=== PATIENT | male | born 1960 | race Caucasian/White ===

== ENCOUNTER 2022-11-14 14:33 | Outpatient (OUT) | payer MEDICARE, SELFPAY ==
[2022-11-14 15:39] LABS: BUN Creatinine Ratio 16.4; Calcium 8.9 mg/dL (8.5-10.1); Carbon Dioxide 28.9 mmol/L (21.0-32.0); Chloride 108 mmol/L (98-107); Estimated GFR (African America >60 (>=60); Estimated GFR (Non-African Ame >60 (>=60); Glucose 106 mg/dL (74-106); Potassium 4.9 mmol/L (3.5-5.1); Sodium 143 mmol/L (136-145)
== END 2022-11-14 14:34 | disposition home or self-care (01) ==
LOC: LAB 14:36
PROVIDERS: PCP Family Medicine; Visit Provider Family Medicine
DX: E87.5 Hyperkalemia (principal)
CPT/HCPCS: 36415; 80048

== ENCOUNTER 2022-12-08 13:14 | Outpatient (OUT) | payer MEDICARE, SELFPAY ==
[2022-12-08 14:01] LABS: Erythrocyte Sedimentation Rate 39 mm/hr (<=20)
[2022-12-08 14:07] LABS: Basophils Absolute Auto 0.1 10^3/uL (0.0-0.1); Eosinophils Absolute Auto 0.4 10^3/uL (0.0-0.7); Eosinophils Percent Auto 7.1 % (0.9-7.0); Hematocrit 38.7 % (42.0-54.0); Hemoglobin 12.4 g/dL (14.0-18.0); Immature Granulocytes Abs Auto 0.01 10^3/uL (0.00-0.03); Immature Granulocytes Pct Auto 0.2 % (0.0-0.5); Lymphocytes Absolute Auto 1.3 10^3/uL (1.2-3.8); Mean Corpuscular Volume 96.8 fL (80.0-94.0); Mean Platelet Volume 9.8 fL (9.5-13.5); Monocytes Absolute Auto 0.3 10^3/uL (0.3-0.8); Monocytes Percent Auto 6.2 % (1.7-12.0); Neutrophils Absolute Auto 3.2 10^3/uL (1.4-6.5); Neutrophils Percent Auto 61.5 % (43.0-75.0); Platelet Count 219 10^3/uL (150-450); Red Cell Distribution Width 15.4 % (11.0-15.0); White Blood Count 5.2 10^3/uL (4.0-11.0)
[2022-12-09 13:38] LABS: Alanine Aminotransferase 26 U/L (16-63); Albumin Globulin Ratio 0.8; Alkaline Phosphatase 68 U/L (46-116); Anion Gap 14.1; Aspartate Amino Transferase 23 U/L (15-37); BUN Creatinine Ratio 16.3; Bilirubin Total 0.3 mg/dL (0.2-1.0); Calcium 8.8 mg/dL (8.5-10.1); Carbon Dioxide 24.9 mmol/L (21.0-32.0); Chloride 105 mmol/L (98-107); Estimated GFR (African America >60 (>=60); Estimated GFR (Non-African Ame 54 (>=60); Globulin 3.8 g/dL; Glucose 108 mg/dL (74-106); Sodium 139 mmol/L (136-145); Total Protein 6.8 g/dL (6.4-8.2)
== END 2022-12-08 13:15 | disposition home or self-care (01) ==
LOC: LAB 13:16
PROVIDERS: PCP Family Medicine; Visit Provider Internal Medicine Rheumatology
DX: M45.0 Ankylosing spondylitis of multiple sites in spine (principal); M15.0 Primary generalized (osteo)arthritis; Z79.899 Other long term (current) drug therapy
CPT/HCPCS: 36415; 80053; 85025; 85652

== ENCOUNTER 2022-12-15 10:37 | Outpatient (OUT) | payer MEDICARE, SELFPAY ==
--- NOTE | 2022-12-15 10:49 | XR_ITS ---
The [address] [address] Patient Name: ELENA FELIX MRN: [id number] date: 1960 Sex: M Assigned Patient Location: [facility] Current Patient Location: [facility] Accession/Order Number: [id number] Exam Date: 12/15/2022 10:44 Report Date: 12/15/2022 11:03 At the request of: BRAD HODGES Procedure: XR chest 2V EXAM: XR chest 2V HISTORY: Immunosuppression COMPARISON: None. TECHNIQUE: PA and lateral views of the chest. FINDINGS: The cardiomediastinal silhouette is normal. No focal consolidation is identified. There is no pneumothorax. No pleural effusion is noted. The osseous structures are intact. XR/XR chest 2V IMPRESSION: No acute cardiopulmonary process. Electronically authenticated by: ALICIA NOVOA Date: 12/15/2022 11:03
== END 2022-12-15 10:38 | disposition home or self-care (01) ==
LOC: RAD 10:38
PROVIDERS: PCP Family Medicine; Visit Provider Internal Medicine Rheumatology
DX: D84.9 Immunodeficiency, unspecified (principal)
CPT/HCPCS: 71046

== ENCOUNTER 2023-02-17 23:30 | Inpatient (IN) | payer MEDICARE, SELFPAY ==
[2023-02-17 23:34] VITALS: BP 116/84; PULSE 74; RESP 17; TEMP 36.7; O2SAT 96; BMI 35.9
--- NOTE | 2023-02-17 23:44 | XR_ITS ---
The [address] [address] Patient Name: ELENA FELIX MRN: [id number] date: 1960 Sex: M Assigned Patient Location: ER Current Patient Location: ER Accession/Order Number: [id number] Exam Date: 02/17/2023 23:59 Report Date: 02/18/2023 00:37 At the request of: BRYSON ENG Procedure: XR hip LT 2V w/ pelvis PROCEDURE: XR hip LT 2V w/ pelvis HISTORY: injury ; left hip pain after falling COMPARISON: None. FINDINGS: BONES:Acute fracture at base of left femoral neck slight angulation; no significant displacement. Intact hip joints. Prior right hip replacement. Mechanical fusion of the visible lumbar spine and right sacroiliac joint. SOFT TISSUES:No visible soft tissue swelling. EFFUSION:None visible. OTHER: Negative. XR/XR hip LT 2V w/ pelvis IMPRESSION: 1. Acute left femoral neck fracture with slight angulation. No significant displacement. Electronically authenticated by: ASHER SOLANO Date: 02/18/2023 00:37
--- NOTE | 2023-02-17 23:45 | ED.LOWEXI1 ---
HPI - Extremity Injury (Lower) General Chief Complaint: Extremity Injury, Lower Stated Complaint: etoh fall left hip pain Time Seen by Provider: 02/17/23 23:42 Source: patient Mode of arrival: ambulance Limitations: no limitations History of Present Illness HPI Narrative: patient states he was drinking alcohol tonight. loss his balance and fell . injured his left hip. Not sure if he struck his head but denies headache or neck pain. no complaint of back, chest or upper extremity pain. Brought to the ER via [facility] complaint: Reports hip injury Related Data Home Medications Medication Instructions Recorded Confirmed aspirin 81 mg tablet,delayed 81 mg PO DAILY 02/18/23 02/18/23 release (Adult Aspirin Regimen) atorvastatin 40 mg tablet 40 mg PO DAILY 02/18/23 02/18/23 duloxetine 60 mg capsule,delayed 60 mg PO BID 02/18/23 02/18/23 release folic acid 1 mg tablet 1 mg PO DAILY 02/18/23 02/18/23 gabapentin 300 mg capsule 900 mg PO Q12H neuropathy 02/18/23 02/18/23 leflunomide 20 mg tablet (Arava) 20 mg PO DAILY 02/18/23 02/18/23 methotrexate sodium 2.5 mg tablet 12.5 mg PO .weekly 02/18/23 02/18/23 metoprolol succinate 100 mg 50 mg PO DAILY HTN 02/18/23 02/18/23 tablet,extended release 24 hr omeprazole 20 mg capsule,delayed 20 mg PO DAILY 02/18/23 02/18/23 release oxaprozin 600 mg tablet 600 mg PO BID 02/18/23 02/18/23 spironolactone 25 mg tablet 12.5 mg PO DAILY 02/18/23 02/18/23 tamsulosin 0.4 mg capsule 0.4 mg PO BID 02/18/23 02/18/23 venlafaxine 150 mg 150 mg PO DAILY 02/18/23 02/18/23 capsule,extended release 24 hr (Effexor XR) Allergies Allergy/AdvReac Type Severity Reaction Status Date / Time morphine Allergy Intermediate Hallucinati Verified 02/17/23 23:34 ng Review of Systems ROS Status of ROS 10 or more systems reviewed and unremarkable except as noted in history and below [facility] Medical History Arthritis ?M19.90 - Unspecified osteoarthritis, unspecified site (ICD-10) Asthma ?J45.909 - Unspecified asthma, uncomplicated (ICD-10) 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 - Other disorders of autonomic nervous system (ICD-10) Depression ?F32.A - Depression, unspecified (ICD-10) DVT (deep venous thrombosis) ?I82.409 - Acute embolism and thrombosis of unspecified deep veins of unspecified lower extremity (ICD-10) High cholesterol ?E78.00 - Pure hypercholesterolemia, unspecified (ICD-10) HTN (hypertension) ?I10 - Essential (primary) hypertension (ICD-10) IBS (irritable bowel syndrome) ?K58.9 - Irritable bowel syndrome without diarrhea (ICD-10) Orthostatic hypotension ?I95.1 - Orthostatic hypotension (ICD-10) Tachycardia ?R00.0 - Tachycardia, unspecified (ICD-10) Surgical History (Updated 02/18/23 @ 02:17 by Doreen Langley) History of hip replacement ?Z96.649 - Presence of unspecified artificial hip joint (ICD-10) Previous back surgery ?Z98.890 - Other specified postprocedural states (ICD-10) Family History (Updated 02/18/23 @ 02:20 by Doreen Langley) Father Family history of diabetes mellitus Family history of stroke Aunt Family history of COPD (chronic obstructive pulmonary disease) Sister Family history of COPD (chronic obstructive pulmonary disease) Aunt Family history of cancer Mother Family history of cancer Social History (Updated 02/18/23 @ 02:23 by Doreen Langley) Within the past year, how often did you have a drink containing alcohol: monthly or less Within the past year, how many standard drinks containing alcohol did you have on a typical day: 1 or 2 Within the past year, how often did you have six or more drinks on one occasion: less than monthly Total score: 1 Score interpretation: A score less than 4 is consistent with normal alcohol consumption. Smoking status: Former smoker Second hand tobacco smoke exposure: No Non-prescribed substance use: denies use Previous occupational history: disability Known occupational exposures/hazards: No Highest level of school completed/degree received: high school graduate Do you want help with school or training: No Are you now , , , , never or living with a partner: In a typical week, how many times do you talk on the telephone with family, friends, or neighbors: 3 or more times per week How often do you get together with friends or relatives: 3 or more times per week How often do you attend presybeterian or adventism services: never Do you belong to any clubs or organizations such as presybeterian groups unions, fraternal or athletic groups, or school groups: no Total score: 2 Score interpretation: A score of greater than or equal to 2 indicates the lowest level of social isolation. Little interest or pleasure in doing things: several days Feeling down, depressed, or hopeless: several days Feel stressed/tense/nervous/anxious/difficulty sleeping: very much Due to disability, difficulty making decisions: No Do you think of yourself as: straight/heterosexual Gender Identity: male Exam Constitutional Vital Signs, click to edit/add: Last Vital Signs Temp 98.0 F 02/17/23 23:34 Pulse 74 02/17/23 23:34 Resp 17 02/17/23 23:34 BP 116/84 02/17/23 23:34 Pulse Ox 96 02/17/23 23:34 O2 Del Method Room Air 02/17/23 23:34 Common normals: average body habitus, oriented x3, no limitations, healthy appearing, alert and well nourished Eye Common normals: EOMs intact bilaterally and conjunctivae normal Respiratory Common normals: normal respiratory effort and no retractions Cardio Common normals: regular rate, regular rhythm, S1 normal heart sound and S2 normal heart sound GI Common normals: Normal to inspection, nondistended, normoactive bowel sounds present and soft to palpation Extremity Other: left hip tender. leg not shortened Neuro Common normals: oriented x3, CN's II-XII intact bilaterally and no sensory deficits noted Psych Appearance: grossly normal Course Vital Signs Vital signs: Vital Signs Temperature 98.0 F 02/17/23 23:34 Pulse Rate 74 02/17/23 23:34 Respiratory Rate 17 02/17/23 23:34 Blood Pressure 116/84 02/17/23 23:34 Pulse Oximetry 96 02/17/23 23:34 Oxygen Delivery Method Room Air 02/17/23 23:34 Temperature 98.0 F 02/17/23 23:34 Pulse Rate 74 02/17/23 23:34 Respiratory Rate 17 02/17/23 23:34 Blood Pressure 116/84 02/17/23 23:34 Pulse Oximetry 96 02/17/23 23:34 Oxygen Delivery Method Room Air 02/17/23 23:34 MDM - Extremity Injury (Lower) MDM Narrative Medical decision making narrative: patient drinking alcohol tonight at [employer]. Fell and fractured his left hip. Denies other injury. Past history of cardiomyopathy, ankylosing spondylitis, Rheumatoid arthritis and hyperlipidemia. Discussed hip xray with oncall surgeon Dr dawson and he would like the patient admitted to the hospitalist service Imaging Data Chest x-ray: Radiologist's impression: MRN: [facility]:[id number] date: 1960 Sex: M Assigned Patient Location: ER Current Patient Location: ER Accession/Order Number: [id number] Exam Date: 02/17/2023 23:59 Report Date: 02/18/2023 00:37 At the request of: BRYSON ENG Procedure: XR hip LT 2V w/ pelvis PROCEDURE: XR hip LT 2V w/ pelvis HISTORY: injury ; left hip pain after falling COMPARISON: None. FINDINGS: BONES:Acute fracture at base of left femoral neck slight angulation; no significant displacement. Intact hip joints. Prior right hip replacement. Mechanical fusion of the visible lumbar spine and right sacroiliac joint. SOFT TISSUES:No visible soft tissue swelling. EFFUSION:None visible. OTHER: Negative. IMPRESSION: 1. Acute left femoral neck fracture with slight angulation. No significant displacement. Electronically authenticated by: ASHER SOLANO Date: 02/18/2023 00:37 Discharge Plan Discharge Chief Complaint: Extremity Injury, Lower Clinical Impression: Fracture of hip Patient Disposition: Admitted As Inpatient Time of Disposition Decision: 01:45 Condition: Good Discharge Date/Time: 02/18/23 02:20
--- NOTE | 2023-02-17 23:47 | PC.NURSE ---
Patient arrives via ems c/o left hip pain with noticeable shortening after falling in bathroom at home. patient admits to drinking 2-3 bottles of wine at a halloween republican. patient is pleasant and follows commands. . at bedside. patient was given 1mg dilaudid at 2325 via ems.
[2023-02-18] VITALS (67 sets, daily range): BP systolic 95–134; BP diastolic 50–78; PULSE 65–97; RESP 8–22; TEMP 36.4–37.3; O2SAT 91–100; BMI 37.6
--- NOTE | 2023-02-18 | FL_ITS ---
[address] [address] Patient Name: ELENA FEILX MRN: [id number] date: 1960 Sex: M Assigned Patient Location: [facility] Current Patient Location: [facility] Accession/Order Number: [id number] Exam Date: 02/18/2023 15:20 Report Date: 02/19/2023 06:58 At the request of: ASHER SHEETS Procedure: FL fluoroscopy <1hr NON-READ EXAM: FL fluoroscopy <1hr NON-READ HISTORY: TECHNIQUE: FINDINGS: Please see Operative Report. Electronically authenticated by: RADIOLOGIST NO Date: 02/19/2023 06:58
[2023-02-18 00:29] LABS: Basophils Percent Auto 0.9 % (0.2-2.0); Eosinophils Absolute Auto 0.1 10^3/uL (0.0-0.7); Eosinophils Percent Auto 3.1 % (0.9-7.0); Hematocrit 33.9 % (42.0-54.0); Hemoglobin 10.6 g/dL (14.0-18.0); Immature Granulocytes Abs Auto 0.03 10^3/uL (0.00-0.03); Immature Granulocytes Pct Auto 0.7 % (0.0-0.5); Lymphocytes Absolute Auto 1.1 10^3/uL (1.2-3.8); Lymphocytes Percent Auto 23.3 % (20.5-60.0); Mean Corpuscular HGB Conc 31.3 g/dL (29.9-35.2); Mean Corpuscular Hemoglobin 32.1 pg (25.9-34.0); Mean Corpuscular Volume 102.7 fL (80.0-94.0); Mean Platelet Volume 10.2 fL (9.5-13.5); Monocytes Absolute Auto 0.6 10^3/uL (0.3-0.8); Monocytes Percent Auto 12.6 % (1.7-12.0); Neutrophils Absolute Auto 2.7 10^3/uL (1.4-6.5); Neutrophils Percent Auto 59.4 % (43.0-75.0); Red Cell Distribution Width 15.9 % (11.0-15.0); White Blood Count 4.6 10^3/uL (4.0-11.0)
[2023-02-18 00:35] LABS: BUN Creatinine Ratio 15.4; Calcium 8.1 mg/dL (8.5-10.1); Carbon Dioxide 24.6 mmol/L (21.0-32.0); Estimated GFR (African America >60 (>=60); Estimated GFR (Non-African Ame 56 (>=60); Ethanol 198 mg/dL; Glucose 91 mg/dL (74-106)
[2023-02-18] MEDS: HYDROMORPHONE HCL 0.5 MG/0.5 ML SYRINGE IV ×4 (01:04→23:24)
--- NOTE | 2023-02-18 01:08 | XR_ITS ---
The [address] [address] Patient Name: ELENA FELIX MRN: [id number] date: 1960 Sex: M Assigned Patient Location: ER Current Patient Location: [facility] Accession/Order Number: [id number] Exam Date: 02/18/2023 01:50 Report Date: 02/18/2023 02:08 At the request of: BRYSON ENG Procedure: XR chest 1V EXAM: XR chest 1V HISTORY: fall COMPARISON: Chest radiographs dated 12/15/2022. TECHNIQUE: One view of the chest was obtained. FINDINGS: The cardiac silhouette is normal in size. The lungs are clear. There is no significant pneumothorax or pleural effusion. No acute osseous abnormality is seen. Postsurgical changes of the lower thoracic spine are partially imaged. XR/XR chest 1V IMPRESSION: 1. No acute cardiopulmonary abnormality. Electronically authenticated by: Lydia ROY Date: 02/18/2023 02:08
[2023-02-18 01:22] LABS: Platelet Count 168 10^3/uL (150-450)
[2023-02-18 01:55] LABS: INR 0.99; Prothrombin Time 10.5 sec (9.0-11.6)
--- NOTE | 2023-02-18 03:19 | W.PM.TELEPN ---
Progress Note: Subjective Subjective Interval history: PT is a 62M with PMH of ankylosing spondylitis, a weak heart that improved with medications , fast heart rate , Orthostatic hypotension, BPH, DVTs no longer on anticoagulation, and Hyperlipidemia who presented to the ED after a mechanical fall while intoxicated on Alcohol at a libertarian. He states that he rarely drinks alcohol and does not use drugs and this is the one night that he does ingest alcohol. He went to the bathroom, and fell. He denies head trauma. Denies loss of consciousness. Denies any other complaint that 7/10 constant L hip pain, worse with movement, nonradiating. As above, pt denies syncope. No chest pain, shortness of breath, fever, recent illness, no n/v/d. The remainder of the reveiw of systems is negative. Pt lives at home with his and granddaughter He is a nonsmoker, does not usually drink alcohol, no drug use. I discussed code status and patient requests to be full code. Family history: Mother- Breast cancer Father - Cancer of the spine Exam Narrative Exam Narrative: Gen: NAD, talkative and pleasant HEENT: NC/AT, PEERL Neck: FROM Pulm: CTA B/L. No rales or wheezes Cards: RRR. No murmur GI: Abdomen with hyperactive bowel sounds. Nontender. Musculskeletal: 1+ Pitting edema noted B/L LE. Limited ROM LLE due to pain barrier Neuro: AAOx 3. Psych: Pleasant. Cooperative. Constitutional Vital Signs, click to edit/add: Last Vital Signs Temp 97.6 F 02/18/23 02:04 Pulse 65 02/18/23 02:04 Resp 18 02/18/23 02:04 BP 124/78 02/18/23 02:04 Pulse Ox 93 L 02/18/23 02:04 O2 Del Method Room Air 02/18/23 02:23 Progress Note: Objective Labs Labs: Short CBC 02/17/23 Range/Units 00:04 WBC 4.6 (4.0-11.0) 10^3/uL Hgb 10.6 L (14.0-18.0) g/dL Hct 33.9 L (42.0-54.0) % Plt Count 168 (150-450) 10^3/uL BMP 02/17/23 00:04 Carbon Dioxide 24.6 BUN 20.0 H Creatinine 1.30 Glucose 91 Calcium 8.1 L Progress Note: A&P Assessment and Plan (1) Fracture of hip: Assessment and Plan: Due to accidental fall No syncope Patient intoxicated, not a daily drinker No need for CIWA at this time, monitor closely L femur Fracture noted on XR Pt will need orthopedic evaluation and cardiac evaluation given history Last cardiac cath approximately 2 years ago - negative for occlusion Obtain Echocardiogram prior to any surgical intervention, EKG NPO for now pending possible ortho intervention IV NS @75cc/hr while NPO Pain management with Tylenol, pt allergic to opioids Consider IV Tylenol if pain control is inadequate Resume metoprolol Hold spironolactone due to orthostasis and elevated creatinine Hold home PO meds as patient is currently NPO DVT ppx with Heparin, SCDs (2) Autoimmune autonomic neuropathy: (3) Depression: (4) DVT (deep venous thrombosis): (5) IBS (irritable bowel syndrome): (6) Orthostatic hypotension: (7) Tachycardia: (8) HTN (hypertension): (9) High cholesterol: (10) Ankylosing spondylitis: (11) Alcohol intoxication: Telemedicine Attestation Telemedicine Attestation I conducted this encounter from [[place] via secure live, [id number] video conference with the patient, located at [facility] with [nurse]. Prior to the interview, the risks and benefits of telemedicine were discussed with the patient and verbal consent was obtained.
--- NOTE | 2023-02-18 03:34 | ECG_ITS ---
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
[2023-02-18] MEDS: 0.9 % SODIUM CHLORIDE 1,000 ML 75 ML IV ×2 (03:49→21:10)
[2023-02-18] MEDS: ACETAMINOPHEN 325 MG TABLET 650 MG PO (03:50)
[2023-02-18] MEDS: HEPARIN SODIUM (PORCINE) 5,000 UNIT/ML VIAL 5000 UNIT SUBQ (03:50)
[2023-02-18 04:58] LABS: Chloride 107 mmol/L (98-107); Potassium 4.7 mmol/L (3.5-5.1); Sodium 142 mmol/L (136-145)
[2023-02-18 05:07] LABS: Anion Gap 15.1
[2023-02-18 06:04] LABS: Basophils Absolute Auto 0.1 10^3/uL (0.0-0.1); Basophils Percent Auto 0.7 % (0.2-2.0); Eosinophils Absolute Auto 0.1 10^3/uL (0.0-0.7); Eosinophils Percent Auto 1.4 % (0.9-7.0); Hematocrit 34.1 % (42.0-54.0); Hemoglobin 10.2 g/dL (14.0-18.0); Immature Granulocytes Abs Auto 0.04 10^3/uL (0.00-0.03); Immature Granulocytes Pct Auto 0.6 % (0.0-0.5); Lymphocytes Absolute Auto 1.1 10^3/uL (1.2-3.8); Lymphocytes Percent Auto 16.1 % (20.5-60.0); Mean Corpuscular HGB Conc 29.9 g/dL (29.9-35.2); Mean Corpuscular Hemoglobin 31.1 pg (25.9-34.0); Mean Platelet Volume 9.9 fL (9.5-13.5); Monocytes Absolute Auto 0.8 10^3/uL (0.3-0.8); Neutrophils Absolute Auto 4.9 10^3/uL (1.4-6.5); Neutrophils Percent Auto 70.2 % (43.0-75.0); Platelet Count 179 10^3/uL (150-450); Red Blood Count 3.28 10^6/uL (4.70-6.10)
[2023-02-18 06:31] LABS: Alanine Aminotransferase 32 U/L (16-63); Albumin Globulin Ratio 0.8; Albumin Level 2.6 g/dL (3.4-5.0); Alkaline Phosphatase 62 U/L (46-116); Anion Gap 15.2; Aspartate Amino Transferase 28 U/L (15-37); BUN Creatinine Ratio 15.1; Bilirubin Total 0.3 mg/dL (0.2-1.0); Carbon Dioxide 20.2 mmol/L (21.0-32.0); Chloride 107 mmol/L (98-107); Estimated GFR (African America >60 (>=60); Estimated GFR (Non-African Ame >60 (>=60); Globulin 3.2 g/dL; Glucose 101 mg/dL (74-106); Potassium 4.4 mmol/L (3.5-5.1); Sodium 138 mmol/L (136-145); Total Protein 5.8 g/dL (6.4-8.2)
[2023-02-18 08:43] LABS: Troponin I High Sensitivity 7.7 pg/mL (4.0-76.1)
--- NOTE | 2023-02-18 10:54 | P.HP_ITS ---
H&P: HPI History of Present Illness Chief complaint: etoh fall left hip pain Narrative: Patient had been drinking in the evening, is not usually a drinker, fell, had instant hip pain. Presented to the emergency room and found to have left femoral neck fracture. Patient mated for work-up and treatment same Patient is a history of cardiomyopathy, recent echocardiogram done in June of this year showed normal ejection fraction of 55 to 60% with borderline left ventricle hypertrophy. 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 - Other disorders of autonomic nervous system (ICD-10) Depression ?F32.A - Depression, unspecified (ICD-10) DVT (deep venous thrombosis) ?I82.409 - Acute embolism and thrombosis of unspecified deep veins of unspecified lower extremity (ICD-10) High cholesterol ?E78.00 - Pure hypercholesterolemia, unspecified (ICD-10) HTN (hypertension) ?I10 - Essential (primary) hypertension (ICD-10) IBS (irritable bowel syndrome) ?K58.9 - Irritable bowel syndrome without diarrhea (ICD-10) Orthostatic hypotension ?I95.1 - Orthostatic hypotension (ICD-10) Tachycardia ?R00.0 - Tachycardia, unspecified (ICD-10) Surgical History (Updated 02/18/23 @ 02:17 by Doreen Langley) History of hip replacement ?Z96.649 - Presence of unspecified artificial hip joint (ICD-10) Previous back surgery ?Z98.890 - Other specified postprocedural states (ICD-10) Family History (Updated 02/18/23 @ 02:20 by Doreen Langley) Father Family history of diabetes mellitus Family history of stroke Aunt Family history of COPD (chronic obstructive pulmonary disease) Sister Family history of COPD (chronic obstructive pulmonary disease) Aunt Family history of cancer Mother Family history of cancer Social History (Updated 02/18/23 @ 02:23 by Doreen Langley) Within the past year, how often did you have a drink containing alcohol: monthly or less Within the past year, how many standard drinks containing alcohol did you have on a typical day: 1 or 2 Within the past year, how often did you have six or more drinks on one occasion: less than monthly Total score: 1 Score interpretation: A score less than 4 is consistent with normal alcohol consumption. Smoking status: Former smoker Second hand tobacco smoke exposure: No Non-prescribed substance use: denies use Previous occupational history: disability Known occupational exposures/hazards: No Highest level of school completed/degree received: high school graduate Do you want help with school or training: No Are you now , , , , never or living with a partner: In a typical week, how many times do you talk on the telephone with family, friends, or neighbors: 3 or more times per week How often do you get together with friends or relatives: 3 or more times per week How often do you attend jain or hindu services: never Do you belong to any clubs or organizations such as jain groups unions, [email or web address] or athletic groups, or school groups: no Total score: 2 Score interpretation: A score of greater than or equal to 2 indicates the lowest level of social isolation. Little interest or pleasure in doing things: several days Feeling down, depressed, or hopeless: several days Feel stressed/tense/nervous/anxious/difficulty sleeping: very much Due to disability, difficulty making decisions: No Do you think of yourself as: straight/heterosexual Gender Identity: male Meds Home Medications and Allergies Home Medications Medication Instructions Recorded Confirmed Type aspirin 81 mg tablet,delayed 81 mg PO DAILY 02/18/23 02/18/23 History release (Adult Aspirin Regimen) atorvastatin 40 mg tablet 40 mg PO DAILY 02/18/23 02/18/23 History duloxetine 60 mg capsule,delayed 60 mg PO BID 02/18/23 02/18/23 History release folic acid 1 mg tablet 1 mg PO DAILY 02/18/23 02/18/23 History gabapentin 300 mg capsule 900 mg PO Q12H neuropathy 02/18/23 02/18/23 History leflunomide 20 mg tablet (Arava) 20 mg PO DAILY 02/18/23 02/18/23 History methotrexate sodium 2.5 mg tablet 12.5 mg PO .weekly 02/18/23 02/18/23 History metoprolol succinate 100 mg 50 mg PO DAILY HTN 02/18/23 02/18/23 History tablet,extended release 24 hr omeprazole 20 mg capsule,delayed 20 mg PO DAILY 02/18/23 02/18/23 History release oxaprozin 600 mg tablet 600 mg PO BID 02/18/23 02/18/23 History spironolactone 25 mg tablet 12.5 mg PO DAILY 02/18/23 02/18/23 History tamsulosin 0.4 mg capsule 0.4 mg PO BID 02/18/23 02/18/23 History venlafaxine 150 mg 150 mg PO DAILY 02/18/23 02/18/23 History capsule,extended release 24 hr (Effexor XR) Allergies Allergy/AdvReac Type Severity Reaction Status Date / Time morphine Allergy Intermediate Hallucinati Verified 02/17/23 23:34 ng Exam Constitutional Vital Signs, click to edit/add: Last Vital Signs Temp 97.8 F 02/18/23 08:30 Pulse 69 02/18/23 09:57 Resp 16 02/18/23 08:30 BP 95/58 02/18/23 08:30 Pulse Ox 92 L 02/18/23 09:57 O2 Del Method Room Air 02/18/23 08:30 Documenting provider has reviewed patient's vital signs: yes Common normals: no apparent distress Exam limitations: no altered mental status HENND Common normals: normocephalic and moist oral mucous membranes Chest Common normals: inspection of chest normal Respiratory Common normals: normal respiratory effort, no retractions, no use of accessory muscles and clear to auscultation bilaterally Cardio Common normals: regular rate, regular rhythm and no murmurs GI Common normals: Normal to inspection, nondistended, normoactive bowel sounds present, soft to palpation and non-tender Extremity Common normals: normal to inspection Left lower extremity: hip joint (tender to palpation) Neuro Common normals: oriented x3, CN's II-XII intact bilaterally and no focal motor deficits Psych Common normals: mental status grossly normal and thought process normal Results Labs Labs: Short CBC 02/17/23 02/18/23 Range/Units 00:04 05:04 WBC 4.6 7.0 (4.0-11.0) 10^3/uL Hgb 10.6 L 10.2 L (14.0-18.0) g/dL Hct 33.9 L 34.1 L (42.0-54.0) % Plt Count 168 179 (150-450) 10^3/uL BMP 02/17/23 02/18/23 00:04 05:04 Sodium 142 138 Potassium 4.7 4.4 Chloride 107 107 Carbon Dioxide 24.6 20.2 L BUN 20.0 H 18.0 Creatinine 1.30 1.19 Glucose 91 101 Calcium 8.1 L 8.0 L Liver Function 02/18/23 Range/Units 05:04 Total Bilirubin 0.3 (0.2-1.0) mg/dL AST 28 (15-37) U/L ALT 32 (16-63) U/L Alkaline Phosphatase 62 (46-116) U/L Albumin 2.6 L (3.4-5.0) g/dL Assessment and Plan Assessment and Plan (1) Fracture of hip: (2) Autoimmune autonomic neuropathy: (3) Depression: (4) Orthostatic hypotension: (5) Tachycardia: (6) HTN (hypertension): (7) High cholesterol: (8) Alcohol intoxication: (9) Nonischemic cardiomyopathy: Plan Left hip pain-secondary to left femoral neck fracture-consultation to surgery, plan for surgery later today History of cardiomyopathy nonischemic-ejection fraction of June of this year was normal at 55 to 60%. Mild LVH. BNP, HST, ECG all normal. No symptoms. Cleared for OR Hypercholesterolemia-continue current medications GERD-continue with current medications Hypertension-continue current medications Depression-continue current medications Iron deficiency anemia-monitor daily, likely to drop with surgery
[2023-02-18] MEDS: LACTATED RINGER'S SOLUTION 1,000 ML 50 ML IV (14:17)
--- NOTE | 2023-02-18 15:43 | P.ORCN_ITS ---
History of Present Illness HPI Consult date: 02/18/23 Consult reason: fracture Chief complaint: etoh fall left hip pain Narrative: The patient is a 62-year-old who was at a [employer] party last night intoxicated. He fell on his left hip with the acute onset of pain and inability to bear weight. Presented to the emergency room where x-rays revealed a left basicervical hip fracture. Patient is admitted for treatment of this injury. He denies prior left hip pain. He denies pain elsewhere. At baseline he reports a history of lower extremity neuropathy. 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 - Other disorders of autonomic nervous system (ICD-10) Depression ?F32.A - Depression, unspecified (ICD-10) DVT (deep venous thrombosis) ?I82.409 - Acute embolism and thrombosis of unspecified deep veins of unspecified lower extremity (ICD-10) High cholesterol ?E78.00 - Pure hypercholesterolemia, unspecified (ICD-10) HTN (hypertension) ?I10 - Essential (primary) hypertension (ICD-10) IBS (irritable bowel syndrome) ?K58.9 - Irritable bowel syndrome without diarrhea (ICD-10) Orthostatic hypotension ?I95.1 - Orthostatic hypotension (ICD-10) Tachycardia ?R00.0 - Tachycardia, unspecified (ICD-10) Surgical History (Updated 02/18/23 @ 02:17 by Doreen Langley) History of hip replacement ?Z96.649 - Presence of unspecified artificial hip joint (ICD-10) Previous back surgery ?Z98.890 - Other specified postprocedural states (ICD-10) Family History (Updated 02/18/23 @ 02:20 by Doreen Langley) Father Family history of diabetes mellitus Family history of stroke Aunt Family history of COPD (chronic obstructive pulmonary disease) Sister Family history of COPD (chronic obstructive pulmonary disease) Aunt Family history of cancer Mother Family history of cancer Social History (Updated 02/18/23 @ 02:23 by Doreen Langley) Within the past year, how often did you have a drink containing alcohol: monthly or less Within the past year, how many standard drinks containing alcohol did you have on a typical day: 1 or 2 Within the past year, how often did you have six or more drinks on one occasion: less than monthly Total score: 1 Score interpretation: A score less than 4 is consistent with normal alcohol consumption. Smoking status: Former smoker Second hand tobacco smoke exposure: No Non-prescribed substance use: denies use Previous occupational history: disability Known occupational exposures/hazards: No Highest level of school completed/degree received: high school graduate Do you want help with school or training: No Are you now , , , , never or living with a partner: In a typical week, how many times do you talk on the telephone with family, friends, or neighbors: 3 or more times per week How often do you get together with friends or relatives: 3 or more times per week How often do you attend cheondoism or hindu services: never Do you belong to any clubs or organizations such as cheondoism groups unions, fraternal or athletic groups, or school groups: no Total score: 2 Score interpretation: A score of greater than or equal to 2 indicates the lowest level of social isolation. Little interest or pleasure in doing things: several days Feeling down, depressed, or hopeless: several days Feel stressed/tense/nervous/anxious/difficulty sleeping: very much Due to disability, difficulty making decisions: No Do you think of yourself as: straight/heterosexual Gender Identity: male Meds Home Medications and Allergies Home Medications Medication Instructions Recorded Confirmed Type aspirin 81 mg tablet,delayed 81 mg PO DAILY 02/18/23 02/18/23 History release (Adult Aspirin Regimen) atorvastatin 40 mg tablet 40 mg PO DAILY 02/18/23 02/18/23 History duloxetine 60 mg capsule,delayed 60 mg PO BID 02/18/23 02/18/23 History release folic acid 1 mg tablet 1 mg PO DAILY 02/18/23 02/18/23 History gabapentin 300 mg capsule 900 mg PO Q12H neuropathy 02/18/23 02/18/23 History leflunomide 20 mg tablet (Arava) 20 mg PO DAILY 02/18/23 02/18/23 History methotrexate sodium 2.5 mg tablet 12.5 mg PO .weekly 02/18/23 02/18/23 History metoprolol succinate 100 mg 50 mg PO DAILY HTN 02/18/23 02/18/23 History tablet,extended release 24 hr omeprazole 20 mg capsule,delayed 20 mg PO DAILY 02/18/23 02/18/23 History release oxaprozin 600 mg tablet 600 mg PO BID 02/18/23 02/18/23 History spironolactone 25 mg tablet 12.5 mg PO DAILY 02/18/23 02/18/23 History tamsulosin 0.4 mg capsule 0.4 mg PO BID 02/18/23 02/18/23 History venlafaxine 150 mg 150 mg PO DAILY 02/18/23 02/18/23 History capsule,extended release 24 hr (Effexor XR) Allergies Allergy/AdvReac Type Severity Reaction Status Date / Time morphine Allergy Intermediate Hallucinati Verified 02/17/23 23:34 ng Exam Narrative Exam Narrative: Left lower extremity skin is intact. Pain with logroll of the left hip. Palpable dorsalis pedis pulse. Diminished sensation to light touch in the toes which is his baseline. He is able to wiggle his toes. No ankle or left knee tenderness. Right lower extremity is nontender to palpation. Bilateral upper extremities have painless range of motion. Constitutional Vital Signs, click to edit/add: Last Vital Signs Temp 97.8 F 02/18/23 14:06 Pulse 74 02/18/23 14:06 Resp 16 02/18/23 14:06 BP 104/65 02/18/23 14:06 Pulse Ox 94 L 02/18/23 14:06 O2 Del Method Room Air 02/18/23 14:06 Results Labs Labs: Abnormal lab results 02/17/23 02/18/23 Range/Units 00:04 05:04 RBC 3.30 L 3.28 L (4.70-6.10) 10^6/uL Hgb 10.6 L 10.2 L (14.0-18.0) g/dL Hct 33.9 L 34.1 L (42.0-54.0) % MCV 102.7 H 104.0 H (80.0-94.0) fL RDW 15.9 H 16.0 H (11.0-15.0) % Lymph % (Auto) 16.1 L (20.5-60.0) % [place] % (Auto) 12.6 H (1.7-12.0) % Lymph # (Auto) 1.1 L 1.1 L (1.2-3.8) 10^3/uL Abs Immat Gran (auto) 0.04 H (0.00-0.03) 10^3/uL Imm/Tot Granulo (auto) 0.7 H 0.6 H (0.0-0.5) % Carbon Dioxide 20.2 L (21.0-32.0) mmol/L BUN 20.0 H (7.0-18.0) mg/dL Est GFR (Non-Af Amer) 56 L (>=60) Calcium 8.1 L 8.0 L (8.5-10.1) mg/dL Total Protein 5.8 L (6.4-8.2) g/dL Albumin 2.6 L (3.4-5.0) g/dL H & H 02/17/23 02/18/23 Range/Units 00:04 05:04 Hgb 10.6 L 10.2 L (14.0-18.0) g/dL Hct 33.9 L 34.1 L (42.0-54.0) % Coagulation 02/18/23 Range/Units 01:35 INR 0.99 All other labs normal. Diagnostic results Hip x-ray: other (Left hip x-ray shows a basicervical fracture with mild displacement) Assessment and Plan Assessment and Plan (1) Fracture of hip: (2) Autoimmune autonomic neuropathy: (3) Depression: (4) Orthostatic hypotension: (5) Tachycardia: (6) HTN (hypertension): (7) High cholesterol: (8) Alcohol intoxication: (9) Nonischemic cardiomyopathy: Plan For his left hip fracture I recommended a left hip intramedullary nail. I discussed risks of the surgery including but not limited to risk of infection, chronic pain, implant failure and need for total hip arthroplasty, loss of limb loss of life. After discussion of risks and benefits he has elected to proceed.
[2023-02-18] MEDS: CEFAZOLIN SODIUM 1,000 MG VIAL 2 MG IV (16:30)
--- NOTE | 2023-02-18 17:49 | PM.ORPRC ---
Procedure Note Date of procedure: 02/18/23 Pre-op diagnosis: Left hip basicervical fracture Post-op diagnosis: same as pre-op Procedure: Procedure Note Procedure(s): Left hip intramedullary nailing Findings: Reduced hip fracture with appropriate implant placement and lengths. Detailed Description of Procedure: After informed consent was obtained the patient was brought to the operating room where general anesthetic was administered. Preoperatively regional block was placed. Patient was placed on the fracture table and using traction and manipulation reduction was performed and confirmed on multiple fluoroscopy views. The left hip and leg were prepped and draped in the usual sterile fashion. A 5 cm incision was made proximal to the greater trochanter in line with the femur. Hemostasis achieved with Bovie. Fascia was incised in line with the incision. The guidepin for the Synthes TFNa 125 degrees was placed on the greater trochanter and the appropriate position on the AP and lateral planes and then advanced and then overreamed in the intertrochanteric region. The Synthes short nail was sized to10 mm in diameter and the nail was then placed. Through a more distal incision the guidepin was placed in the appropriate position in the femoral head. This was measured, overreamed and then the 105 millimeter spiral blade was placed locked into position and then a half turn counterclockwise was placed to allow for compression. The fracture was compressed. Through the more distal incision the locking screw was placed in the standard fashion. Final x-rays in multiple views revealed a reduced hip fracture with appropriate implant placement and lengths. Wounds were irrigated. Fascia was repaired with nonabsorbable suture. Skin was closed in standard fashion in layers. Sterile dressing was placed. Patient was awakened and brought to the recovery room in stable condition. There were no intraoperative or immediate postoperative complications. Anesthesia: regional and General-LMA Surgeon: Flo Skaggs Estimated blood loss (mL): 100 IV fluids (mL): 1,300 Pathology: none sent Condition: stable Disposition: PACU
--- NOTE | 2023-02-18 17:59 | PC.NURSE ---
pt toes are pink and warm,pt able to wiggle toes without difficulty
[2023-02-18] MEDS: ENOXAPARIN SODIUM 40 MG/0.4 ML SYRINGE SUBQ (20:10)
[2023-02-18] MEDS: GABAPENTIN 300 MG CAPSULE 900 MG PO (20:10)
[2023-02-18] MEDS: TAMSULOSIN HCL 0.4 MG CAPSULE PO (20:11)
[2023-02-18] MEDS: OXYCODONE HCL/ACETAMINOPHEN 5MG/325MG 1 TAB PO (20:11)
[2023-02-18] MEDS: DULOXETINE HCL 60 MG CAPSULE.DR PO (21:10)
[2023-02-18] MEDS: ATORVASTATIN CALCIUM 40 MG TABLET PO (21:10)
[2023-02-18] MEDS: VANCOMYCIN HCL 1,000 MG in 0.9 % SODIUM CHLORIDE 250 ML 250 MG IV (22:14)
[2023-02-19] MEDS: OXYCODONE HCL/ACETAMINOPHEN 5MG/325MG 2 TAB PO ×3 (04:26→17:20)
[2023-02-19 04:44] LABS: Basophils Percent Auto 0.1 % (0.2-2.0); Hematocrit 31.6 % (42.0-54.0); Hemoglobin 9.9 g/dL (14.0-18.0); Immature Granulocytes Abs Auto 0.04 10^3/uL (0.00-0.03); Immature Granulocytes Pct Auto 0.5 % (0.0-0.5); Lymphocytes Absolute Auto 0.3 10^3/uL (1.2-3.8); Lymphocytes Percent Auto 3.8 % (20.5-60.0); Mean Corpuscular HGB Conc 31.3 g/dL (29.9-35.2); Mean Corpuscular Hemoglobin 31.8 pg (25.9-34.0); Mean Corpuscular Volume 101.6 fL (80.0-94.0); Mean Platelet Volume 9.7 fL (9.5-13.5); Monocytes Absolute Auto 0.5 10^3/uL (0.3-0.8); Monocytes Percent Auto 6.5 % (1.7-12.0); Neutrophils Absolute Auto 7.2 10^3/uL (1.4-6.5); Neutrophils Percent Auto 89.1 % (43.0-75.0); Platelet Count 187 10^3/uL (150-450); Red Blood Count 3.11 10^6/uL (4.70-6.10); Red Cell Distribution Width 16.1 % (11.0-15.0); White Blood Count 8.1 10^3/uL (4.0-11.0)
[2023-02-19 04:58] LABS: BUN Creatinine Ratio 14.9; Carbon Dioxide 25.9 mmol/L (21.0-32.0); Chloride 107 mmol/L (98-107); Estimated GFR (African America >60 (>=60); Estimated GFR (Non-African Ame >60 (>=60); Glucose 153 mg/dL (74-106); Potassium 4.9 mmol/L (3.5-5.1); Sodium 139 mmol/L (136-145)
[2023-02-19 05:25] VITALS: BP 112/66; PULSE 84; RESP 16; TEMP 36.7; O2SAT 92
--- NOTE | 2023-02-19 07:47 | PM.ORPN ---
Progress Note: A&P Assessment and Plan (1) Fracture of hip: Assessment and Plan: POD#1 from left hip IM nail PT for TTWB LLE DVT prophylaxis Hgb stable (2) Autoimmune autonomic neuropathy: (3) Depression: (4) Orthostatic hypotension: (5) Tachycardia: (6) HTN (hypertension): (7) High cholesterol: (8) Alcohol intoxication: (9) Nonischemic cardiomyopathy: Subjective Subjective Interval history: Comfortable Exam Narrative Exam Narrative: LLE: dressings C/D/I Palp.DP Thigh soft Hgb:9.9 Constitutional Vital Signs, click to edit/add: Last Vital Signs Temp 98.0 F 02/19/23 05:25 Pulse 84 02/19/23 05:25 Resp 16 02/19/23 05:25 BP 112/66 02/19/23 05:25 Pulse Ox 92 L 02/19/23 05:25 O2 Del Method Room Air 02/19/23 05:25
[2023-02-19] MEDS: VANCOMYCIN HCL 1,000 MG in 0.9 % SODIUM CHLORIDE 250 ML 250 MG IV (08:36)
[2023-02-19] MEDS: SPIRONOLACTONE 25 MG TABLET 12.5 MG PO (08:37)
[2023-02-19] MEDS: DULOXETINE HCL 60 MG CAPSULE.DR PO ×2 (08:37→20:21)
[2023-02-19] MEDS: GABAPENTIN 300 MG CAPSULE 900 MG PO ×2 (08:37→20:21)
[2023-02-19] MEDS: OMEPRAZOLE 20 MG CAPSULE.DR PO (08:38)
[2023-02-19] MEDS: FOLIC ACID 1 MG TABLET PO (08:38)
[2023-02-19] MEDS: TAMSULOSIN HCL 0.4 MG CAPSULE PO ×2 (08:38→20:21)
[2023-02-19] MEDS: METOPROLOL SUCCINATE 50 MG TAB.ER.24H PO (08:38)
--- NOTE | 2023-02-19 10:05 | SWNOTE1 ---
SW received message from case management and pt potentially wants to go to [facility] rehab. Pt needs to work with therapy. Pt would be a precert if wants skilled. SW did call [facility] and they do take pt's insurance. SW to send referral once all information is documented and pt works with therapy.
[2023-02-19 10:15] VITALS: BMI 10.0
--- NOTE | 2023-02-19 10:34 | P.PN_ITS ---
Patient seen and examined. Agree with assessment and plan below. Will continue PT and may need SNF. Diagnosis: 1. Hip fracture 2. Alcohol intoxication 3. Cardiomyopathy 4. Neuropathy 5. HTN 6. 7. Dyslipidemia Progress Note: Subjective Subjective Interval history: Date/time of exam: 02/19/23 1005 The patient is resting comfortably in bed at the time of my exam. He has not been up with physical therapy postoperatively so far but will likely be seen by therapy within the next hour. He reports adequate pain control. He denies chest pain, shortness of breath, N/V/D, or any other acute complaint. Disposition: Attempting referral to a local SNF for rehab strengthening as the patient has comorbid balance problems and pain from his ankylosing spondylitis that make safe ambulation difficult at baseline without the addition of TTWB on the LLE that is currently ordered. Discharge likely in the next 48-72 hrs pending facility acceptance and insurance authorization. Exam Constitutional Vital Signs, click to edit/add: Last Vital Signs Temp 98.0 F 02/19/23 05:25 Pulse 84 02/19/23 05:25 Resp 16 02/19/23 05:25 BP 112/66 02/19/23 05:25 Pulse Ox 92 L 02/19/23 05:25 O2 Del Method Room Air 02/19/23 05:25 Common normals: no apparent distress, oriented x3 and alert General appearance: cooperative Orientation/consciousness: Yes awake [facility] Common normals: normocephalic, head/scalp atraumatic and hearing grossly normal bilaterally Head and scalp: normocephalic and atraumatic Eye Common normals: PERRL, EOMs intact bilaterally, conjunctivae normal and no scleral icterus General eye: normal appearance of both eyes Conjunctiva: conjunctiva(e) normal Pupil: PERRL Chest Common normals: inspection of chest normal Chest: symmetrical chest wall rise Respiratory Common normals: normal respiratory effort, no use of accessory muscles and clear to auscultation bilaterally Effort & inspection: able to speak in complete sentences Auscultation: clear to auscultation bilaterally Cardio Common normals: no JVD, regular rate, regular rhythm, S1 normal heart sound, S2 normal heart sound, no gallops, no clicks, no murmurs, no rub and peripheral pulses 2+ throughout Rate: regular rate Rhythm: regular rhythm Heart sounds: S1 normal and S2 normal Peripheral pulses: pulses 2+ throughout GI Common normals: Normal to inspection, nondistended, normoactive bowel sounds present, soft to palpation, non-tender and no hepatosplenomegaly Palpation: soft and no hepatosplenomegaly Bladder/kidney exam: bladder normal to palpation Extremity Common normals: normal to inspection and no calf tenderness; limited ROM (Decreased ROM to operative hip, otherwise WNL) General: no clubbing, no cyanosis and no edema Neuro Common normals: oriented x3, CN's II-XII intact bilaterally, moves all extremities, no focal motor deficits and no sensory deficits noted Sensorium/orientation: awake and alert Psych Common normals: mental status grossly normal Progress Note: Objective Labs Labs: Short CBC 02/19/23 Range/Units 04:04 WBC 8.1 (4.0-11.0) 10^3/uL Hgb 9.9 L (14.0-18.0) g/dL Hct 31.6 L (42.0-54.0) % Plt Count 187 (150-450) 10^3/uL BMP 02/19/23 04:04 Sodium 139 Potassium 4.9 Chloride 107 Carbon Dioxide 25.9 BUN 18.0 Creatinine 1.21 Glucose 153 H Calcium 8.0 L Progress Note: A&P Assessment and Plan (1) Fracture of hip: Assessment and Plan: ACUTE * After ground level fall - chronic balance issues complicated by EtOH intoxication * s/p gamma nail per Dr Skaggs 02/18/23 * Unremarkable post op period to date * Post op DVT prophylaxis, pain management, PT/OT orders, weight bearing orders deferred to the orthopedic team * Mild post-op on chronic anemia - stable at 9.9 today * CBC, CMP in AM (2) Alcohol intoxication: Assessment and Plan: ACUTE * Resolved * No evidence of chronic EtOH abuse at this time (3) Tachycardia: Assessment and Plan: ACUTE * Resolved (4) Ankylosing spondylitis: Assessment and Plan: CHRONIC * Continue home Arava, methotrexate, gabapentin, oxaprozin (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 Mild LVH. * Asymptomatic.
--- NOTE | 2023-02-19 10:36 | CM.NOTE ---
Rounds made with Dr. Hidalgo, PT and OT to evaluate pt today. Pt states he would like to go to [facility] for Skilled therapy at discharge. Pt states he has some balance issues d/t neuropathy.
--- NOTE | 2023-02-19 10:44 | CM.NOTE ---
Important Message From Medicare discussed with pt, pt verbalizes understanding and signs paper. Original given to pt and copy placed on pt's chart.
[2023-02-19] MEDS: 0.9 % SODIUM CHLORIDE 1,000 ML 75 ML IV (11:24)
[2023-02-19] MEDS: HYDROMORPHONE HCL 0.5 MG/0.5 ML SYRINGE IV (11:27)
--- NOTE | 2023-02-19 11:48 | SWNOTE1 ---
Referral has been sent to [facility] rehab.
[2023-02-19] MEDS: CYCLOBENZAPRINE HCL 10 MG TABLET PO (13:25)
[2023-02-19 13:27] VITALS: BP 135/67; PULSE 73; RESP 18; TEMP 36.1; O2SAT 96
--- NOTE | 2023-02-19 14:41 | SWNOTE1 ---
[facility] rehab is able to move forward and will start precert today. SW sent rest of information for precert.
--- NOTE | 2023-02-19 15:05 | SWNOTE1 ---
SW updated nursing and patient.
[2023-02-19 19:20] VITALS: BP 127/64; PULSE 75; RESP 18; TEMP 36.8; O2SAT 94
[2023-02-19] MEDS: ENOXAPARIN SODIUM 40 MG/0.4 ML SYRINGE SUBQ (20:20)
[2023-02-19] MEDS: ATORVASTATIN CALCIUM 40 MG TABLET PO (20:21)
[2023-02-20] MEDS: 0.9 % SODIUM CHLORIDE 1,000 ML 75 ML IV (00:21)
[2023-02-20 04:47] VITALS: BP 153/86; PULSE 68; RESP 16; TEMP 36.6; O2SAT 94
[2023-02-20 04:55] LABS: Basophils Percent Auto 0.3 % (0.2-2.0); Eosinophils Percent Auto 0.1 % (0.9-7.0); Hematocrit 29.2 % (42.0-54.0); Hemoglobin 8.8 g/dL (14.0-18.0); Immature Granulocytes Abs Auto 0.07 10^3/uL (0.00-0.03); Immature Granulocytes Pct Auto 0.6 % (0.0-0.5); Lymphocytes Absolute Auto 0.8 10^3/uL (1.2-3.8); Lymphocytes Percent Auto 7.7 % (20.5-60.0); Mean Corpuscular HGB Conc 30.1 g/dL (29.9-35.2); Mean Corpuscular Hemoglobin 31.3 pg (25.9-34.0); Mean Corpuscular Volume 103.9 fL (80.0-94.0); Monocytes Absolute Auto 1.4 10^3/uL (0.3-0.8); Monocytes Percent Auto 13.3 % (1.7-12.0); Neutrophils Absolute Auto 8.4 10^3/uL (1.4-6.5); Platelet Count 176 10^3/uL (150-450); Red Blood Count 2.81 10^6/uL (4.70-6.10); Red Cell Distribution Width 16.7 % (11.0-15.0); White Blood Count 10.8 10^3/uL (4.0-11.0)
[2023-02-20 05:17] LABS: Anion Gap 8.9; Calcium 7.8 mg/dL (8.5-10.1); Carbon Dioxide 25.8 mmol/L (21.0-32.0); Chloride 110 mmol/L (98-107); Estimated GFR (African America >60 (>=60); Estimated GFR (Non-African Ame >60 (>=60); Glucose 137 mg/dL (74-106); Potassium 4.7 mmol/L (3.5-5.1); Sodium 140 mmol/L (136-145)
[2023-02-20] MEDS: OXYCODONE HCL/ACETAMINOPHEN 5MG/325MG 2 TAB PO ×2 (07:54→16:32)
[2023-02-20 08:16] VITALS: BP 131/68
[2023-02-20] MEDS: OMEPRAZOLE 20 MG CAPSULE.DR PO (08:16)
[2023-02-20] MEDS: GABAPENTIN 300 MG CAPSULE 900 MG PO ×2 (08:16→19:49)
[2023-02-20] MEDS: FOLIC ACID 1 MG TABLET PO (08:16)
[2023-02-20] MEDS: METOPROLOL SUCCINATE 50 MG TAB.ER.24H PO (08:16)
[2023-02-20] MEDS: TAMSULOSIN HCL 0.4 MG CAPSULE PO ×2 (08:16→19:49)
[2023-02-20] MEDS: SPIRONOLACTONE 25 MG TABLET 12.5 MG PO (08:16)
[2023-02-20] MEDS: DULOXETINE HCL 60 MG CAPSULE.DR PO ×2 (08:16→19:49)
[2023-02-20 09:55] VITALS: O2SAT 95
[2023-02-20] MEDS: VENLAFAXINE HCL ER 150 MG CAPSULE PO (10:09)
--- NOTE | 2023-02-20 10:16 | PT.DAILY ---
Physical Therapy Daily Note PT Daily Note/Assess Start: 02/20/23 10:12 Freq: Status: Active Protocol: Document 02/20/23 10:12 REJI (Rec: 02/20/23 10:15 REJI [id number]) Physical Therapy Daily Note/Assessment Time In/Time Out Time In 09:05 Time Out 09:30 Pain In Pain N/A Pain Out Pain N/A Subjective Subjective Pt supine upon arrival. Agrees to PT and to get into chair at this time. Therapeutic Activity Time Therapeutic Activity Minutes (minutes) 10 Therapeutic Activity Units 1 Therapeutic Activity Treatment Bed Mobility Ability Minimum Assist,2 Person Assist Chair Transfer Ability Minimum Assist,2 Person Assist Therapeutic Activity Comments Pt transfers from supine>sit with Ryley for L LE and to advance upper body to sit EOB. Pt sits EOB for 8 min while brushing his teeth, washing his body, and changing his gown. Pt able to sit EOB unsupported with bed elevated. Pt then performs sit>stand to RW with Ryley+2 for safety. Pt amb 3' to BS chair with RW, TTWB on L - CGA+2. Pt has difficulty advancing L LE - more so drags it at this time. Pt remains in BS chair upon completion with feet elevated and call light within reach. Total Physical Therapy Time Total Therapy Minutes 10 Total Physical Therapy Units 1 Summary Daily Note Summary Improved transfer abilities from previous day. Pain increased when standing but subsides with rest.
--- NOTE | 2023-02-20 10:21 | CM.NOTE ---
Rounds made with Dr. Hidalgo pt will discharge to skilled therapy at [facility].
[2023-02-20] MEDS: CYCLOBENZAPRINE HCL 10 MG TABLET PO ×2 (11:14→19:49)
--- NOTE | 2023-02-20 11:48 | SWNOTE1 ---
SW sent updates to [facility] for precert.
--- NOTE | 2023-02-20 12:20 | P.PN_ITS ---
Patient seen and examined. Agree with assessment and plan below. Pain controlled with medication. Unsteady with PT and will need SNF. Awaiting insurance approval for SNF. Diagnosis: 1. Hip fracture 2. Alcohol intoxication 3. Cardiomyopathy 4. Neuropathy 5. HTN 6. 7. Dyslipidemia Progress Note: Subjective Subjective Interval history: Date/time of exam: 02/20/23 1017 The patient is resting comfortably in a bedside chair. He reports feeling well and denies chest pain, shortness of breath, N/V/D, dizziness, or any other acute complaint. His pain is adequately controlled, but becomes significant at times. He is ambulating with a walker but remains a high fall risk due to his a nkylosing spondylitis and autoimmune neuropathy. Per Dr. Skaggs, the patient should remain off of his methotrexate, oxaprozin, and leflunomide, for 1 month postoperatively. Disposition: Accepted at local SNF. Discharge pending insurance authorization, likely in the next 24-48 hrs. Exam Constitutional Vital Signs, click to edit/add: Last Vital Signs Temp 97.9 F 02/20/23 04:47 Pulse 68 02/20/23 04:47 Resp 16 02/20/23 04:47 BP 131/68 02/20/23 08:16 Pulse Ox 95 02/20/23 09:55 O2 Del Method Room Air 02/20/23 04:47 Common normals: no apparent distress, oriented x3 and alert Orientation/consciousness: Yes awake [facility] Common normals: normocephalic, head/scalp atraumatic and hearing grossly normal bilaterally Head and scalp: normocephalic and atraumatic Eye Common normals: PERRL, EOMs intact bilaterally, conjunctivae normal and no scleral icterus General eye: normal appearance of both eyes Conjunctiva: conjunctiva(e) normal Pupil: PERRL Neck & C-Spine Common normals: no JVD Chest Common normals: inspection of chest normal Chest: symmetrical chest wall rise Respiratory Common normals: normal respiratory effort and no use of accessory muscles Effort & inspection: able to speak in complete sentences Auscultation: wheezes (Faint, scattered EE) Cardio Common normals: no JVD, regular rate, regular rhythm, S1 normal heart sound, S2 normal heart sound, no gallops, no clicks, no murmurs, no rub and peripheral pulses 2+ throughout GI Common normals: Normal to inspection, nondistended, normoactive bowel sounds present, soft to palpation, non-tender and no hepatosplenomegaly Bladder/kidney exam: bladder normal to palpation Extremity Common normals: normal to inspection and no calf tenderness; limited ROM (Decreased ROM to operative hip, otherwise WNL) General: edema (Trace bilat insteps); no clubbing and no cyanosis Neuro Common normals: oriented x3, CN's II-XII intact bilaterally, moves all extremities, no focal motor deficits and no sensory deficits noted Sensorium/orientation: awake and alert Psych Common normals: mental status grossly normal Progress Note: Objective Labs Labs: Short CBC 02/20/23 Range/Units 04:21 WBC 10.8 (4.0-11.0) 10^3/uL Hgb 8.8 L (14.0-18.0) g/dL Hct 29.2 L (42.0-54.0) % Plt Count 176 (150-450) 10^3/uL BMP 02/20/23 04:21 Sodium 140 Potassium 4.7 Chloride 110 H Carbon Dioxide 25.8 BUN 22.0 H Creatinine 1.16 Glucose 137 H Calcium 7.8 L Progress Note: A&P Assessment and Plan (1) Fracture of hip: Assessment and Plan: ACUTE * After ground level fall - chronic balance issues complicated by EtOH intoxication * s/p gamma nail per Dr Skaggs 02/18/23 * Unremarkable post op period to date * Post op DVT prophylaxis, pain management, PT/OT orders, weight bearing orders deferred to the orthopedic team * Per Dr Skaggs - hold home immune modulating and NSAID meds for 1 mo post op, then resume * Post-op acute on chronic anemia * Dropped 1 gm today (8.8), 2 gm since admission * No evidence of active bleeding * check FOB to r/o occult bleeding, but low clinical suspicion * Likely combination of intra-op losses and hemodilution * Already on a PPI * CBC, CMP in AM (2) Alcohol intoxication: Assessment and Plan: ACUTE * Resolved * No evidence of chronic EtOH abuse at this time (3) Tachycardia: Assessment and Plan: ACUTE * Resolved (4) Ankylosing spondylitis: Assessment and Plan: CHRONIC * Hold home Arava, methotrexate, oxaprozin for one month post-op per Dr Skaggs * Continue home gabapentin (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 Mild LVH. * Asymptomatic.
[2023-02-20 13:30] VITALS: BP 117/67; PULSE 77; RESP 16; TEMP 36.1; O2SAT 92
--- NOTE | 2023-02-20 15:51 | SWNOTE1 ---
SW received call from [facility] and they have NOT received approval yet and they will let SW once they hear from insurance.
[2023-02-20 19:09] VITALS: BP 121/61; PULSE 67; RESP 16; TEMP 36.8; O2SAT 93
[2023-02-20] MEDS: ENOXAPARIN SODIUM 40 MG/0.4 ML SYRINGE SUBQ (19:49)
[2023-02-20] MEDS: ATORVASTATIN CALCIUM 40 MG TABLET PO (19:49)
[2023-02-20 21:12] LABS: Occult Blood Positive
[2023-02-21] MEDS: OXYCODONE HCL/ACETAMINOPHEN 5MG/325MG 2 TAB PO ×3 (00:24→19:47)
[2023-02-21 04:30] VITALS: BP 124/66; PULSE 64; RESP 18; TEMP 36.6; O2SAT 92
[2023-02-21 04:57] LABS: Basophils Absolute Auto 0.1 10^3/uL (0.0-0.1); Basophils Percent Auto 0.6 % (0.2-2.0); Eosinophils Absolute Auto 0.2 10^3/uL (0.0-0.7); Eosinophils Percent Auto 1.9 % (0.9-7.0); Hematocrit 29.7 % (42.0-54.0); Immature Granulocytes Abs Auto 0.08 10^3/uL (0.00-0.03); Lymphocytes Absolute Auto 1.2 10^3/uL (1.2-3.8); Lymphocytes Percent Auto 14.1 % (20.5-60.0); Mean Corpuscular HGB Conc 30.3 g/dL (29.9-35.2); Mean Corpuscular Hemoglobin 31.3 pg (25.9-34.0); Mean Corpuscular Volume 103.1 fL (80.0-94.0); Mean Platelet Volume 10.1 fL (9.5-13.5); Monocytes Absolute Auto 1.3 10^3/uL (0.3-0.8); Monocytes Percent Auto 15.7 % (1.7-12.0); Neutrophils Absolute Auto 5.5 10^3/uL (1.4-6.5); Neutrophils Percent Auto 66.7 % (43.0-75.0); Platelet Count 215 10^3/uL (150-450); Red Blood Count 2.88 10^6/uL (4.70-6.10); Red Cell Distribution Width 17.2 % (11.0-15.0); White Blood Count 8.3 10^3/uL (4.0-11.0)
[2023-02-21 05:11] LABS: Anion Gap 10.1; BUN Creatinine Ratio 20.4; Calcium 8.1 mg/dL (8.5-10.1); Carbon Dioxide 26.3 mmol/L (21.0-32.0); Chloride 109 mmol/L (98-107); Estimated GFR (African America >60 (>=60); Estimated GFR (Non-African Ame >60 (>=60); Glucose 102 mg/dL (74-106); Potassium 4.4 mmol/L (3.5-5.1); Sodium 141 mmol/L (136-145)
[2023-02-21] MEDS: FOLIC ACID 1 MG TABLET PO (08:20)
[2023-02-21] MEDS: SPIRONOLACTONE 25 MG TABLET 12.5 MG PO (08:20)
[2023-02-21] MEDS: DULOXETINE HCL 60 MG CAPSULE.DR PO ×2 (08:20→19:48)
[2023-02-21] MEDS: METOPROLOL SUCCINATE 50 MG TAB.ER.24H PO (08:20)
[2023-02-21] MEDS: OMEPRAZOLE 20 MG CAPSULE.DR PO (08:20)
[2023-02-21] MEDS: TAMSULOSIN HCL 0.4 MG CAPSULE PO ×2 (08:20→19:47)
[2023-02-21] MEDS: GABAPENTIN 300 MG CAPSULE 900 MG PO ×2 (08:20→19:48)
[2023-02-21] MEDS: VENLAFAXINE HCL ER 150 MG CAPSULE PO (08:20)
[2023-02-21] MEDS: CYCLOBENZAPRINE HCL 10 MG TABLET PO ×2 (08:20→19:48)
--- NOTE | 2023-02-21 10:42 | CM.NOTE ---
Rounds made with Dr. Hidalgo pt will go to [facility] for skilled therapy at discharge.
--- NOTE | 2023-02-21 11:07 | PT.DAILY ---
Physical Therapy Daily Note PT Daily Note/Assess Start: 02/20/23 10:12 Freq: Status: Active Protocol: Document 02/21/23 11:02 REJI (Rec: 02/21/23 11:07 SHAMARTA [id number]) Physical Therapy Daily Note/Assessment Time In/Time Out Time In 10:05 Time Out 10:20 Pain In Pain Level 3 Pain Out Pain Level 7 Subjective Subjective Pt sitting in BS chair upon arrival with feet elevated. Agrees to PT. Reports being in BS chair for about 2 hours and is ready to get back to bed. Pain at rest is 3/10. Therapeutic Exercise Time Therapeutic Exercise Minutes (minutes) 4 Therapeutic Exercise Units 0 Therapeutic Exercise Treatment Therapeutic Exercise Treatment Seated LAQ (AA L) and AP 10x ea. Supine heel slides to 60 deg, AP, QS, GS, 10x ea. Therapeutic Activity Time Therapeutic Activity Minutes (minutes) 10 Therapeutic Activity Units 1 Therapeutic Activity Treatment Bed Mobility Ability Moderate Assist Chair Transfer Ability Moderate Assist Therapeutic Activity Comments Sit>stand from BS chair to RW ModA to reach standing. Pt amb 4' to bed with RW, TTWB L LE. Increased pain with standing. Pt performs sit>supine transfer with ModA for L LE. Pt performs supine ex while in bed. Pt remains supine upon completion with call light in reach and needs met. Total Physical Therapy Time Total Therapy Minutes 14 Total Physical Therapy Units 1 Summary Daily Note Summary Improved transfer ability today as pt is able to perform these transfers with assist of 1 vs needing 2 assist in previous session. Pt cont to increased with standing and activity. Pt would benefit from skilled therapy to return to PLOF.
[2023-02-21 12:05] LABS: Percent Iron Saturation 12.3 %
--- NOTE | 2023-02-21 12:30 | SWNOTE1 ---
Updates sent to [facility].
--- NOTE | 2023-02-21 14:51 | P.PN_ITS ---
Patient seen and examined. Agree with assessment and plan below. Pain controlled with medication. Unsteady with PT and recommend SNF. Insurance denied SNF and they will attempt peer to peer. Diagnosis: 1. Hip fracture 2. Alcohol intoxication 3. Cardiomyopathy 4. Neuropathy 5. HTN 6. 7. Dyslipidemia Progress Note: Subjective Subjective Interval history: Date/time of exam: 02/21/23 0913 The patient is resting comfortably in a bedside chair. He reports feeling well and continues to deny chest pain, shortness of breath, N/V/D, dizziness, or any other acute complaint. His pain remains adequately controlled, but becomes significant at times. He is ambulating with a walker but remains a high fall risk due to his ankylosing spondylitis and autoimmune neuropathy. Per Dr. Skaggs, the patient should remain off of his methotrexate, oxaprozin, and leflunomide, for 1 month postoperatively. Disposition: Accepted at local SNF. Discharge pending insurance authorization, likely in the next 24hrs. Exam Constitutional Vital Signs, click to edit/add: Last Vital Signs Temp 97.9 F 02/21/23 04:30 Pulse 64 02/21/23 04:30 Resp 18 02/21/23 04:30 BP 124/66 02/21/23 04:30 Pulse Ox 92 L 02/21/23 04:30 O2 Del Method Room Air 02/21/23 04:30 Common normals: no apparent distress, oriented x3 and alert Orientation/consciousness: Yes awake [facility] Common normals: normocephalic, head/scalp atraumatic and hearing grossly normal bilaterally Eye Common normals: PERRL, EOMs intact bilaterally, conjunctivae normal and no scleral icterus General eye: normal appearance of both eyes Respiratory Common normals: normal respiratory effort, no use of accessory muscles and clear to auscultation bilaterally Effort & inspection: able to speak in complete sentences Cardio Common normals: no JVD, regular rate, regular rhythm, S1 normal heart sound, S2 normal heart sound, no gallops, no clicks, no murmurs, no rub and peripheral pulses 2+ throughout GI Common normals: Normal to inspection, nondistended, normoactive bowel sounds present, soft to palpation, non-tender and no hepatosplenomegaly Extremity Common normals: normal to inspection and no calf tenderness; limited ROM (Decreased ROM to operative hip, otherwise WNL) General: no clubbing and no cyanosis Neuro Common normals: CN's II-XII intact bilaterally, moves all extremities, no focal motor deficits and no sensory deficits noted Psych Common normals: mental status grossly normal Progress Note: Objective Labs Labs: Short CBC 02/21/23 Range/Units 04:05 WBC 8.3 (4.0-11.0) 10^3/uL Hgb 9.0 L (14.0-18.0) g/dL Hct 29.7 L (42.0-54.0) % Plt Count 215 (150-450) 10^3/uL BMP 02/21/23 04:05 Sodium 141 Potassium 4.4 Chloride 109 H Carbon Dioxide 26.3 BUN 23.0 H Creatinine 1.13 Glucose 102 Calcium 8.1 L Progress Note: A&P Assessment and Plan (1) Fracture of hip: Assessment and Plan: ACUTE * After ground level fall - chronic balance issues complicated by EtOH intoxication * s/p gamma nail per Dr Skaggs 02/18/23 * Unremarkable post op period to date * Post op DVT prophylaxis, pain management, PT/OT orders, weight bearing orders deferred to the orthopedic team * Per Dr Skaggs - hold home immune modulating and NSAID meds for 1 mo post op, then resume * Post-op acute on chronic anemia * Improved today - 9.0 * No evidence of active bleeding * FOB positive - pt continues to deny melana or hematochezia * Likely combination of intra-op losses and hemodilution * Add iron studies today - consider adding ferrous sulfate * Already on a PPI * CBC, CMP in AM (2) Alcohol intoxication: Assessment and Plan: ACUTE * Resolved * No evidence of chronic EtOH abuse (3) Tachycardia: Assessment and Plan: ACUTE * Resolved (4) Ankylosing spondylitis: Assessment and Plan: CHRONIC * Hold home Arava, methotrexate, oxaprozin for one month post-op per Dr Skaggs * Continue home gabapentin (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 Mild LVH. * Asymptomatic.
[2023-02-21 15:02] VITALS: BP 133/74; PULSE 74; RESP 16; TEMP 36.7; O2SAT 92
--- NOTE | 2023-02-21 15:20 | SWNOTE1 ---
SW received call from [facility] inpt rehab and pt's insurance is intending to deny. [facility] doctor will be doing the peer to peer tomorrow between 10:30-11:00. SW notified nursing, doctor, and nurse practitioner.
--- NOTE | 2023-02-21 15:21 | SWNOTE1 ---
SW to update patient as well.
[2023-02-21 19:17] VITALS: RESP 16
[2023-02-21] MEDS: ENOXAPARIN SODIUM 40 MG/0.4 ML SYRINGE SUBQ (19:47)
[2023-02-21] MEDS: ATORVASTATIN CALCIUM 40 MG TABLET PO (19:48)
[2023-02-21 21:06] VITALS: BP 113/69; PULSE 73; RESP 18; TEMP 36.8; O2SAT 93
[2023-02-22] VITALS (8 sets, daily range): BP systolic 101–134; BP diastolic 64–71; PULSE 70–80; RESP 16–18; TEMP 36.5–36.9; O2SAT 92–95
[2023-02-22 06:01] LABS: Basophils Absolute Auto 0.1 10^3/uL (0.0-0.1); Eosinophils Absolute Auto 0.3 10^3/uL (0.0-0.7); Eosinophils Percent Auto 3.6 % (0.9-7.0); Hematocrit 29.4 % (42.0-54.0); Hemoglobin 8.9 g/dL (14.0-18.0); Immature Granulocytes Abs Auto 0.11 10^3/uL (0.00-0.03); Immature Granulocytes Pct Auto 1.5 % (0.0-0.5); Lymphocytes Absolute Auto 1.4 10^3/uL (1.2-3.8); Lymphocytes Percent Auto 19.5 % (20.5-60.0); Mean Corpuscular HGB Conc 30.3 g/dL (29.9-35.2); Mean Corpuscular Hemoglobin 31.3 pg (25.9-34.0); Mean Corpuscular Volume 103.5 fL (80.0-94.0); Mean Platelet Volume 9.7 fL (9.5-13.5); Monocytes Absolute Auto 1.3 10^3/uL (0.3-0.8); Monocytes Percent Auto 17.9 % (1.7-12.0); Neutrophils Percent Auto 56.5 % (43.0-75.0); Platelet Count 233 10^3/uL (150-450); Red Blood Count 2.84 10^6/uL (4.70-6.10); Red Cell Distribution Width 16.9 % (11.0-15.0); White Blood Count 7.1 10^3/uL (4.0-11.0)
[2023-02-22 06:05] LABS: BUN Creatinine Ratio 18.9; Calcium 8.6 mg/dL (8.5-10.1); Carbon Dioxide 29.8 mmol/L (21.0-32.0); Chloride 107 mmol/L (98-107); Estimated GFR (African America >60 (>=60); Estimated GFR (Non-African Ame 55 (>=60); Glucose 91 mg/dL (74-106); Potassium 4.8 mmol/L (3.5-5.1); Sodium 140 mmol/L (136-145)
[2023-02-22] MEDS: GABAPENTIN 300 MG CAPSULE 900 MG PO ×2 (08:50→22:03)
[2023-02-22] MEDS: SPIRONOLACTONE 25 MG TABLET 12.5 MG PO (08:50)
[2023-02-22] MEDS: DULOXETINE HCL 60 MG CAPSULE.DR PO ×2 (08:50→22:03)
[2023-02-22] MEDS: OMEPRAZOLE 20 MG CAPSULE.DR PO (08:52)
[2023-02-22] MEDS: METOPROLOL SUCCINATE 50 MG TAB.ER.24H PO (08:52)
[2023-02-22] MEDS: VENLAFAXINE HCL ER 150 MG CAPSULE PO (08:52)
[2023-02-22] MEDS: TAMSULOSIN HCL 0.4 MG CAPSULE PO ×2 (08:53→22:03)
[2023-02-22] MEDS: FOLIC ACID 1 MG TABLET PO (08:53)
[2023-02-22] MEDS: OXYCODONE HCL/ACETAMINOPHEN 5MG/325MG 2 TAB PO ×2 (08:56→13:49)
--- NOTE | 2023-02-22 11:24 | SWNOTE1 ---
SW received call from [facility] rehab and denial is being upheld and pt denied for acute rehab. Doctor did mention trying skilled for him at facility. SW did ask [facility] if this was a possibility and she did state yes instead of acute rehab can try skilled. SW to talk to pt.
--- NOTE | 2023-02-22 11:38 | CM.NOTE ---
Rounds made with Dr. Hidalgo, awaiting to hear back from [facility] for discharge plan.
--- NOTE | 2023-02-22 11:57 | PT.DAILY ---
Physical Therapy Daily Note PT Daily Note/Assess Start: 02/20/23 10:12 Freq: Status: Active Protocol: Document 02/22/23 11:52 REJI (Rec: 02/22/23 11:57 [email or web address] [id number]) Physical Therapy Daily Note/Assessment Time In/Time Out Time In 11:15 Time Out 11:40 Pain In Pain Level 3 Pain Out Pain Level 7 Subjective Subjective Pt supine upon arrival. Agrees to PT. High pain with activity. Therapeutic Exercise Time Therapeutic Exercise Minutes (minutes) 3 Therapeutic Exercise Units 0 Therapeutic Exercise Treatment Therapeutic Exercise Treatment Pt performs anti embolic ex supine prior to transfer - 10x ea. Therapeutic Activity Time Therapeutic Activity Minutes (minutes) 20 Therapeutic Activity Units 2 Therapeutic Activity Treatment Bed Mobility Ability Moderate Assist Chair Transfer Ability Moderate Assist Therapeutic Activity Comments Performs supine>sit transfer with ModA to advance bilat LE' s to sit EOB. Once sitting EOB he is able to maintain static seated balance unsupported - 8 min while washing upper body and brushing teeth. Therapist assistance with washing his back and donning new gown. Sit >stand ModA to RW. Static standing with TTWB on L - pt washes periarea with 1 UE support on RW and Ryley. Needs assist to wash his bottom. Increased time needed for this due to high pain and weight bearing status. Takes 2 hops to R up towards HOB. Sit> supine ModA for bilat LEs. Pillow under L LE. HOB elevated and call light in reach. Total Physical Therapy Time Total Therapy Minutes 23 Total Physical Therapy Units 2 Summary Daily Note Summary Increased time needed for act on this date due to pain levels. Cont to require ModA for most transfers. Would benefit from SNF to regain strength, endurance, and balance to return to his PLOF.
--- NOTE | 2023-02-22 12:10 | SWNOTE1 ---
GRADY spoke with pt in regards to skilled and attempting skilled versus acute. He would like to try. Pt called his and they would like to try [facility]. GRADY let them know they go case by case with [facility] and they will lake it out. GRADY sent referral to [facility]. GRADY updated nursing and doctor.
--- NOTE | 2023-02-22 12:15 | P.PN_ITS ---
Patient seen and examined. Agree with assessment and plan below. Pain controlled with medication. Unsteady with PT and recommend SNF. Insurance denied acute rehab and attempting SNF. Diagnosis: 1. Hip fracture 2. Alcohol intoxication 3. Cardiomyopathy 4. Neuropathy 5. HTN 6. 7. Dyslipidemia Progress Note: Subjective Subjective Interval history: Date/time of exam: 02/22/23 0900 The patient is resting comfortably in bed. He reports no acute events overnight and his pain is persistent but adequately controlled. He is tolerating daily PT. Discharge disposition was intended to be an acute rehab facility (not SNF), but was denied by insurance. SW is attempting placement at a local SNF for continued rehab strengthening with significant safety concerns for dc home d/t comorbid chronic conditions. Likely d/c in the next 24-48 hrs. Exam Constitutional Vital Signs, click to edit/add: Last Vital Signs Temp 97.9 F 02/22/23 05:30 Pulse 70 02/22/23 08:00 Resp 18 02/22/23 08:00 BP 117/71 02/22/23 08:52 Pulse Ox 92 L 02/22/23 05:30 O2 Del Method Room Air 02/22/23 05:30 Common normals: no apparent distress, oriented x3 and alert Orientation/consciousness: Yes awake [facility] Common normals: normocephalic, head/scalp atraumatic and hearing grossly normal bilaterally Head and scalp: normocephalic and atraumatic Eye Common normals: PERRL, EOMs intact bilaterally, conjunctivae normal and no scleral icterus General eye: normal appearance of both eyes Conjunctiva: conjunctiva(e) normal Pupil: PERRL Respiratory Common normals: normal respiratory effort, no use of accessory muscles and clear to auscultation bilaterally Effort & inspection: able to speak in complete sentences Cardio Common normals: no JVD, regular rate, regular rhythm, S1 normal heart sound, S2 normal heart sound, no gallops, no clicks, no murmurs, no rub and peripheral pulses 2+ throughout GI Common normals: Normal to inspection, nondistended, normoactive bowel sounds present, soft to palpation, non-tender and no hepatosplenomegaly Bladder/kidney exam: bladder normal to palpation Extremity Common normals: normal to inspection, no calf tenderness and no pedal edema; limited ROM (Decreased ROM to operative hip, otherwise WNL) General: no clubbing, no cyanosis and monofilament exam not performed Left lower extremity: hip joint (Surgical drsg D&I. No erythema,calor) Neuro Common normals: oriented x3, CN's II-XII intact bilaterally, moves all extremities, no focal motor deficits and no sensory deficits noted Sensorium/orientation: awake and alert Psych Common normals: mental status grossly normal Progress Note: Objective Labs Labs: Short CBC 02/22/23 Range/Units 04:59 WBC 7.1 (4.0-11.0) 10^3/uL Hgb 8.9 L (14.0-18.0) g/dL Hct 29.4 L (42.0-54.0) % Plt Count 233 (150-450) 10^3/uL BMP 02/22/23 04:59 Sodium 140 Potassium 4.8 Chloride 107 Carbon Dioxide 29.8 BUN 25.0 H Creatinine 1.32 H Glucose 91 Calcium 8.6 Progress Note: A&P Assessment and Plan (1) Fracture of hip: Assessment and Plan: ACUTE * After ground level fall - chronic balance issues (ankylosing spondylitis & autoimmune neuropathy) complicated by EtOH intoxication * s/p gamma nail per Dr Skaggs 02/18/23 * Unremarkable post op period to date * Post op DVT prophylaxis, pain management, PT/OT orders, weight bearing orders deferred to the orthopedic team * Per Dr Skaggs - hold home immune modulating and NSAID meds for 1 mo post op, then resume * CBC, CMP in AM (2) Postoperative anemia: Assessment and Plan: Post-op acute on chronic anemia * Likely combination of intra-op losses and hemodilution * Stable at 8.9 today * No evidence of active bleeding * FOB positive - pt continues to deny melena or hematochezia * Add iron studies 02/21 - iron deficiency noted. * Initiate ferrous sulfate BID * Folate and B12 sent out 02/21. * Continue home folate. 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 Mild LVH. * No peripheral edema * Asymptomatic.
--- NOTE | 2023-02-22 13:38 | SWNOTE1 ---
[facility] is able to accept and they are starting precert.
[2023-02-22] MEDS: ENOXAPARIN SODIUM 40 MG/0.4 ML SYRINGE SUBQ (22:03)
[2023-02-22] MEDS: ATORVASTATIN CALCIUM 40 MG TABLET PO (22:03)
[2023-02-22] MEDS: FERROUS SULFATE 325 MG TABLET PO (22:03)
[2023-02-23] MEDS: OXYCODONE HCL/ACETAMINOPHEN 5MG/325MG 2 TAB PO (00:40)
[2023-02-23 04:33] LABS: Basophils Absolute Auto 0.1 10^3/uL (0.0-0.1); Basophils Percent Auto 0.7 % (0.2-2.0); Eosinophils Absolute Auto 0.3 10^3/uL (0.0-0.7); Hematocrit 29.8 % (42.0-54.0); Immature Granulocytes Abs Auto 0.14 10^3/uL (0.00-0.03); Immature Granulocytes Pct Auto 1.9 % (0.0-0.5); Lymphocytes Absolute Auto 1.2 10^3/uL (1.2-3.8); Lymphocytes Percent Auto 16.9 % (20.5-60.0); Mean Corpuscular HGB Conc 30.2 g/dL (29.9-35.2); Mean Corpuscular Volume 102.8 fL (80.0-94.0); Mean Platelet Volume 9.2 fL (9.5-13.5); Monocytes Absolute Auto 1.4 10^3/uL (0.3-0.8); Monocytes Percent Auto 19.2 % (1.7-12.0); Neutrophils Absolute Auto 4.2 10^3/uL (1.4-6.5); Neutrophils Percent Auto 57.3 % (43.0-75.0); Platelet Count 265 10^3/uL (150-450); Red Cell Distribution Width 16.9 % (11.0-15.0); White Blood Count 7.3 10^3/uL (4.0-11.0)
[2023-02-23 04:46] LABS: Anion Gap 6.1; BUN Creatinine Ratio 21.1; Calcium 8.5 mg/dL (8.5-10.1); Carbon Dioxide 31.3 mmol/L (21.0-32.0); Chloride 104 mmol/L (98-107); Estimated GFR (African America >60 (>=60); Estimated GFR (Non-African Ame 57 (>=60); Glucose 113 mg/dL (74-106); Potassium 4.4 mmol/L (3.5-5.1); Sodium 137 mmol/L (136-145)
[2023-02-23 06:00] VITALS: BP 115/70; PULSE 68; RESP 16; TEMP 36.6; O2SAT 91
--- NOTE | 2023-02-23 08:25 | SWNOTE1 ---
Pt is approved to go to [facility]. SW notified doctor.
[2023-02-23] MEDS: FERROUS SULFATE 325 MG TABLET PO (08:28)
[2023-02-23] MEDS: DULOXETINE HCL 60 MG CAPSULE.DR PO (08:28)
[2023-02-23] MEDS: METOPROLOL SUCCINATE 50 MG TAB.ER.24H PO (08:29)
[2023-02-23] MEDS: OMEPRAZOLE 20 MG CAPSULE.DR PO (08:29)
[2023-02-23] MEDS: FOLIC ACID 1 MG TABLET PO (08:29)
[2023-02-23] MEDS: GABAPENTIN 300 MG CAPSULE 900 MG PO (08:29)
[2023-02-23 08:30] VITALS: BP 122/70
[2023-02-23] MEDS: TAMSULOSIN HCL 0.4 MG CAPSULE PO (08:30)
[2023-02-23] MEDS: SPIRONOLACTONE 25 MG TABLET 12.5 MG PO (08:30)
[2023-02-23 08:31] VITALS: BP 122/70
[2023-02-23] MEDS: VENLAFAXINE HCL ER 150 MG CAPSULE PO (08:31)
[2023-02-23] MEDS: OXYCODONE HCL/ACETAMINOPHEN 5MG/325MG 1 TAB PO (08:31)
--- NOTE | 2023-02-23 10:41 | P.DS_ITS ---
Patient seen and examined. Agree with assessment and plan below. Admitted after fall and taken to surgery. Pain controlled with medication. Unsteady with PT and recommend SNF. Insurance denied acute rehab but accepted at SNF and discharged in stable condition. Diagnosis: 1. Hip fracture 2. Alcohol intoxication 3. Cardiomyopathy 4. Neuropathy 5. HTN 6. 7. Dyslipidemia DS: Providers Provider Date of admission: 02/18/23 01:52 Primary care physician: Mary Carmen Kaur MD Consults: 02/19/23 Occupational Therapy Eval and Treat Routine Reason for consultation: weakness 02/19/23 08:00 Physical Therapy Eval and Treat Routine Reason for consultation: hip fracture: TTWB LLE Has provider been notified: No DS: Diagnosis Discharge Diagnosis (1) Fracture of hip: (2) Postoperative anemia: (3) Alcohol intoxication: (4) Tachycardia: (5) Ankylosing spondylitis: (6) Autoimmune autonomic neuropathy: (7) Depression: (8) Orthostatic hypotension: (9) HTN (hypertension): (10) High cholesterol: (11) Nonischemic cardiomyopathy: DS: Summary Hospital Course Hospital Course: The patient was admitted with a left hip fracture after suffering a mechanical fall at home while intoxicated. Hip pinning was performed by Dr. Brooks on 02/18/2023. The patient's immune modulating and NSAID medications have been placed on hold postoperatively for 1 month to promote adequate healing. Unfortunately this is increased the patient's pain and stiffness and difficulty ambulating. Physical therapy is recommending custodial stay for continued rehab therapy. We do not suspect chronic EtOH abuse. The patient has chronic anemia but experienced some postoperative anemia that was acute on chronic. He did not require PRBC transfusions and he is stabilized at or near his baseline. A fecal occult blood was positive and we recommended outpatient colon cancer screening. He had no evidence of active bleeding of any kind. His surgical wound dressing is dry and intact without evidence of erythema, calor, swelling, or any acute signs of infection. He is being discharged to a local SNF facility in stable condition and should follow-up with his surgeon as indicated in the postoperative instructions. He should follow-up with his PCP as needed. Time Spent with Patient Time attestation: Total time spent providing and/or coordinating discharge services: Quality: Stroke Symptom Onset Unknown: No Exam Constitutional Vital Signs, click to edit/add: Last Vital Signs Temp 97.9 F 11/03/23 06:00 Pulse 68 02/23/23 06:00 Resp 16 02/23/23 06:00 BP 122/70 02/23/23 08:31 Pulse Ox 91 L 02/23/23 06:00 O2 Del Method Room Air 02/23/23 06:00 Common normals: no apparent distress, oriented x3 and alert Orientation/consciousness: Yes awake [facility] Common normals: normocephalic, head/scalp atraumatic and hearing grossly normal bilaterally Eye Common normals: PERRL, EOMs intact bilaterally, conjunctivae normal and no scleral icterus Chest Common normals: inspection of chest normal Chest: symmetrical chest wall rise Respiratory Common normals: normal respiratory effort, no use of accessory muscles and clear to auscultation bilaterally Cardio Common normals: regular rate, regular rhythm, S1 normal heart sound, S2 normal heart sound, no gallops, no clicks, no murmurs, no rub and peripheral pulses 2+ throughout GI Common normals: Normal to inspection, nondistended, normoactive bowel sounds present, soft to palpation, non-tender and no hepatosplenomegaly Extremity Common normals: normal to inspection, no calf tenderness and no pedal edema; limited ROM (Decreased ROM to operative hip, otherwise WNL) General: no clubbing and no cyanosis Neuro Common normals: oriented x3, CN's II-XII intact bilaterally, moves all extremities, no focal motor deficits and no sensory deficits noted Psych Common normals: mental status grossly normal DS: Data Data Completed and Pending Labs on day of discharge: Labs from last 24 hours 02/23/23 04:08 WBC 7.3 RBC 2.90 L Hgb 9.0 L Hct 29.8 L MCV 102.8 H MCH 31.0 MCHC 30.2 RDW 16.9 H Plt Count 265 MPV 9.2 L Neut % (Auto) 57.3 Lymph % (Auto) 16.9 L Bond % (Auto) 19.2 H Eos % (Auto) 4.0 Baso % (Auto) 0.7 Neut # (Auto) 4.2 Lymph # (Auto) 1.2 Bond # (Auto) 1.4 H Eos # (Auto) 0.3 Baso # (Auto) 0.1 Abs Immat Gran (auto) 0.14 H Imm/Tot Granulo (auto) 1.9 H Sodium 137 Potassium 4.4 Chloride 104 Carbon Dioxide 31.3 Anion Gap 6.1 BUN 27.0 H Creatinine 1.28 Est GFR ( Amer) >60 Est GFR (Non-Af Amer) 57 L BUN/Creatinine Ratio 21.1 Glucose 113 H Calcium 8.5 Imaging Hip/Pelvis XR: Radiologist's impression: IMPRESSION: 1. Acute left femoral neck fracture with slight angulation. No significant displacement. Chest x-ray: Radiologist's impression: IMPRESSION: 1. No acute cardiopulmonary abnormality. Discharge Plan Discharge Disposition: er SNF Condition: Good Discharge Medications: New oxycodone-acetaminophen 5-325 mg Tablet 1 tab PO Q4H PRN (Reason: Pain Scale 4-6) Qty: 20 0RF oxycodone-acetaminophen 5-325 mg Tablet 2 tab PO Q4H PRN (Reason: Pain Scale 7-10) Qty: 20 0RF cyclobenzaprine 10 mg Tablet 10 mg PO TID PRN (Reason: Muscle Spasm) Qty: 30 0RF ferrous sulfate [Iron (ferrous sulfate)] 325 mg (65 mg iron) tablet 325 mg PO BID Qty: 60 0RF Continued atorvastatin 40 mg tablet 40 mg PO DAILY gabapentin 300 mg capsule 900 mg PO Q12H folic acid 1 mg tablet 1 mg PO DAILY duloxetine 60 mg capsule,delayed release(DR/EC) 60 mg PO BID metoprolol succinate 100 mg tablet extended release 24 hr 50 mg PO DAILY omeprazole 20 mg capsule,delayed release(DR/EC) 20 mg PO DAILY spironolactone 25 mg tablet 12.5 mg PO DAILY tamsulosin 0.4 mg capsule 0.4 mg PO BID aspirin [Adult Aspirin Regimen] 81 mg tablet,delayed release (DR/EC) 81 mg PO DAILY venlafaxine [Effexor XR] 150 mg capsule,extended release 24hr 150 mg PO DAILY Held methotrexate sodium 2.5 mg tablet 12.5 mg PO .weekly Hold Instructions: Resume on 03/21/23. Resume one month after surgery per Dr Skaggs Patient Comments: takes on Sundays oxaprozin 600 mg tablet 600 mg PO BID Hold Instructions: Resume on 03/21/23. Resume one month after surgery per Dr Skaggs leflunomide [Arava] 20 mg tablet 20 mg PO DAILY Hold Instructions: Resume on 03/21/23. Resume one month after surgery per Dr Skaggs Activity Restrictions/Additional Instructions: - TTWB ambulation - PT/OT eval and treat - Check CBC (anemia), BMP (CKD) in 2 weeks - results to PCP/SNF provider - Consider colon Cancer screening per PCP (fecal occult blood positive) - Resume home methotrexate, leflunomide, and oxaprozin on 03/21/23 - Follow up w/ Dr Skaggs per surgical discharge instructions [employer]n Embedded Instructions: Discharge to [facility] for rehab Forms: Portal Instructions Follow Up Appointments: - Dr Skaggs per surgical discharge instructions - PCP as needed
--- NOTE | 2023-02-23 11:30 | SWNOTE1 ---
Pt is approved and going to [facility] skilled today for rehab. Nursing set up trips and they will be here at 3:00. SW notifed [facility]. SW updated packet and took to the floor. SW completed HENS as well.
--- NOTE | 2023-02-23 11:31 | CM.NOTE ---
Rounds made with venice Oden for pt to discharge to [facility] for skilled therapy today.
--- NOTE | 2023-02-23 11:50 | CM.NOTE ---
Completed ESTELITA's form online for skilled placement.
--- NOTE | 2023-02-23 12:04 | PT.DAILY ---
Physical Therapy Daily Note PT Daily Note/Assess Start: 02/20/23 10:12 Freq: Status: Active Protocol: Document 02/23/23 11:55 REJI (Rec: 02/23/23 12:04 SHAMARTA [id number]) Physical Therapy Daily Note/Assessment Time In/Time Out Time In 10:42 Time Out 11:05 Pain In Pain Level 2 Pain Out Pain Level 7 Subjective Subjective Pt supine upon arrival. agrees to PT this morning. Minimal pain in L hip at rest. Planned to go [facility] sometime today. Therapeutic Exercise Time Therapeutic Exercise Minutes (minutes) 3 Therapeutic Exercise Units 0 Therapeutic Exercise Treatment Therapeutic Exercise Treatment Supine anti embolic ex complete bilat 10x ea prior to transfer. Therapeutic Activity Time Therapeutic Activity Minutes (minutes) 12 Therapeutic Activity Units 1 Therapeutic Activity Treatment Bed Mobility Ability Moderate Assist Chair Transfer Ability Minimum Assist Therapeutic Activity Comments Pt performs supine>sit transfer with ModA for L LE - needs support through L LE throughout entire transfer to minimize pain. Pt sits EOB without LOB unsupported for 5 min. Needs assistance to serge shoes. Sit>stand from EOB (bed elevated for comfort and to accommodate for pt's height) Ryley today. Once standing pt is able to maintain TTWB on L LE. Pt able to take 4x hops to R on this date and pivot to BS chair. pt remains in BS chair with feet elevated and call light within reach. Total Physical Therapy Time Total Therapy Minutes 15 Total Physical Therapy Units 1 Summary Daily Note Summary Increased pain with weight bearing/standing activity. Pt would benefit from stay to regain strength and mobility.
[2023-02-23 13:48] VITALS: BP 100/64; PULSE 72; RESP 16; TEMP 36.7; O2SAT 93
[2023-06-11 14:21] LABS: Reticulocyte Count 2.43 % (0.60-3.10)
== END 2023-02-23 14:23 | DRG 481 ==
LOC: ER 23:40 → MS 02-18 01:56
PROVIDERS: Family Medicine; Internal Medicine; Orthopaedic Surgery; Admitting Provider Family Medicine; Emergency Provider Internal Medicine; PCP Family Medicine; Visit Provider Nurse Practitioner
PROC: 0QS736Z Reposition Left Upper Femur with Intramedullary Internal Fixation Device, Percutaneous Approach (ICD-10-PCS; principal; 2023-02-18 15:30)
DX: S72.042A Displaced fracture of base of neck of left femur, initial encounter for closed fracture (principal); D62 Acute posthemorrhagic anemia; I42.8 Other cardiomyopathies; G90.9 Disorder of the autonomic nervous system, unspecified; F32.A Depression, unspecified; I10 Essential (primary) hypertension; M45.9 Ankylosing spondylitis of unspecified sites in spine; E78.00 Pure hypercholesterolemia, unspecified; F10.129 Alcohol abuse with intoxication, unspecified; M06.9 Rheumatoid arthritis, unspecified; J45.909 Unspecified asthma, uncomplicated; W19.XXXA Unspecified fall, initial encounter; Z88.5 Allergy status to narcotic agent; Z83.3 Family history of diabetes mellitus; Z82.3 Family history of stroke; Z83.6 Family history of other diseases of the respiratory system; Z86.718 Personal history of other venous thrombosis and embolism; Z79.82 Long term (current) use of aspirin; Z98.890 Other specified postprocedural states; Z87.891 Personal history of nicotine dependence; Z79.899 Other long term (current) drug therapy; Z96.641 Presence of right artificial hip joint; Z79.1 Long term (current) use of non-steroidal anti-inflammatories (NSAID)
CPT/HCPCS: 36415; 64447; 71045; 73502; 76000; 76942; 80048; 80053; 80320; 82607; 82728; 82746; 82948; 83540; 83550; 83880; 84484; 85025; 85045; 85610; 93005; 96361; 96365; 96372; 96375; 96376; 97162; 97165; 97530; 97535; 99285; C1713; C1776; G0328; J1170; J2704; J3370; Q3014

== ENCOUNTER 2023-03-12 10:19 | Outpatient (OUT) | payer MEDICARE, SELFPAY ==
--- NOTE | 2023-03-12 | XR_ITS ---
The [address] [address] Patient Name: ELENA FELIX MRN: [id number] date: 1960 Sex: M Assigned Patient Location: RAD Current Patient Location: Accession/Order Number: [id number] Exam Date: 03/12/2023 10:45 Report Date: 03/13/2023 07:20 At the request of: ASHER SHEETS Procedure: XR hip LT 2V w/ pelvis EXAM: XR hip LT 2V w/ pelvis HISTORY: closed fracture left femur COMPARISON: 02/18/2023 TECHNIQUE: Routine views of the XR hip LT 2V w/ pelvis FINDINGS/ XR/XR hip LT 2V w/ pelvis IMPRESSION: 1. Internal fixation of left femoral neck. Maintained alignment without evidence for hardware complication. Possible callus formation about the femoral neck fracture site. 2. Unremarkable soft tissues. 3. Right total hip arthroplasty. Mild left hip osteoarthritis. Additional lumbar posterior spinal fixation.. Electronically authenticated by: KENDY NGUYỄN Date: 03/13/2023 07:20
== END 2023-03-12 10:20 | disposition home or self-care (01) ==
LOC: RAD 10:19
PROVIDERS: PCP Family Medicine; Visit Provider Orthopaedic Surgery
DX: S72.002A Fracture of unspecified part of neck of left femur, initial encounter for closed fracture (principal); S72.042A Displaced fracture of base of neck of left femur, initial encounter for closed fracture
CPT/HCPCS: 73502

== ENCOUNTER 2023-04-09 09:09 | Outpatient (OUT) | payer MEDICARE, SELFPAY ==
--- NOTE | 2023-04-09 09:15 | XR_ITS ---
The [address] [address] Patient Name: ELENA FELIX MRN: [id number] date: 1960 Sex: M Assigned Patient Location: [facility] Current Patient Location: Accession/Order Number: [id number] Exam Date: 04/09/2023 09:17 Report Date: 04/10/2023 07:40 At the request of: ASHER SHEETS Procedure: XR hip LT 2V w/ pelvis EXAM: XR hip LT 2V w/ pelvis HISTORY: Closed Nondisplaced Lateral Condyle Of Left Femur COMPARISON: 03/12/2023 TECHNIQUE: Routine views of the XR hip LT 2V w/ pelvis FINDINGS/ XR/XR hip LT 2V w/ pelvis IMPRESSION: 1. Internal fixation of left femoral neck. Unchanged alignment without evidence for complication. Slightly decreased fracture lucency is noted of the femoral neck. No new fracture identified. 2. Unremarkable soft tissues. 3. Right hip arthroplasty. Mild left hip osteoarthritis. Additional lumbar posterior spinal fixation. Electronically authenticated by: KENDY NGUYỄN Date: 04/10/2023 07:40
== END 2023-04-09 09:10 | disposition home or self-care (01) ==
LOC: RAD 09:09
PROVIDERS: PCP Family Medicine; Visit Provider Orthopaedic Surgery
DX: S72.425D Nondisplaced fracture of lateral condyle of left femur, subsequent encounter for closed fracture with routine healing (principal)
CPT/HCPCS: 73502

== ENCOUNTER 2023-04-18 12:41 | Outpatient (OUT) | payer MEDICARE, SELFPAY ==
[2023-04-18 12:49] LABS: Hemoglobin 12.9 g/dL (14.0-18.0)
--- NOTE | 2023-04-18 13:48 | RT_ITS ---
The [facility] Test Date: 2023-04-18 Pat Name: ELENA FELIX Department: Room: - Gender: Male Pharmacy Intern: Tiara Mcdonald RRT : 1960 Requested By: Crescencio Capps Order Number: [id number] Reading MD: Crescencio Capps Interpretive Statements Pulmonary function testing was completed according to ATS criteria. Findings were considered accurate and reproducible. Both pre- and post-bronchodilator values utilized for spirometry. Spirometry (based on pre-bronchodilator values): -FEV1: Reduced @ 68% -FEV1: Moderately reduced @ 57% -FVC: Moderately reduced @ 68% -There is a positive bronchodilator response in FEV1. Lung volumes by plethysmography: -RV: Normal @ 100% -TLC: Mildly reduced @ 79% Diffusion capacity: -DLCO: Mild reduction @ 73% when corrected for Hb 12.9g/dL Flow-volume loop: -Mild obstructive pattern Impressions: -Spirometry suggests moderate obstruction with a positive bronchodilator response which is most consistent with asthma. There is a mild decrease in TLC and DLCO suggesting a concomitant restrictive process. Clinical correlation required. Electronically Signed On 04-24-2023 14:00:23 EST by Crescencio Capps
[2023-04-18 13:50] VITALS: PULSE 106; O2SAT 100
[2023-04-18] MEDS: ALBUTEROL SULFATE 2.5 MG/3 ML VIAL NEB IH (13:50)
--- NOTE | 2023-04-18 14:22 | CT_ITS ---
[address] [address] Patient Name: ELENA FELIX MRN: [id number] date: 1960 Sex: M Assigned Patient Location: CARD Current Patient Location: Accession/Order Number: [id number] Exam Date: 04/18/2023 14:27 Report Date: 04/19/2023 07:04 At the request of: JARON ANTUNEZ Procedure: CT chest high res EXAMINATION: CT chest high res HISTORY: Ankylosing spondylitis M45.9 COMPARISON: CT chest high-resolution 04/24/2022 TECHNIQUE: Axial images were obtained at 10 mm intervals during inspiration and expiration in the supine and prone positions. No IV contrast given. Dose reduction techniques were achieved by using automated exposure control and/or adjustment of mA and/or kV according to patient size and/or use of iterative reconstruction technique. FINDINGS: LUNGS: No visible pulmonary disease. PLEURA: No mass, effusion, or pneumothorax. ARABELLA: No mass or adenopathy. MEDIASTINUM: No mass or adenopathy. CHEST WALL: No mass or axillary adenopathy mechanical fusion of lower thoracic vertebral bodies. Old healed rib fractures. LIMITED ABDOMEN: Cholelithiasis. Stable splenic cyst. Limited images of the upper abdomen. OTHER: Negative. CT/CT chest high res IMPRESSION: 1. No significant chronic interstitial changes or appreciable change since prior study. 2. No acute infiltrates. Electronically authenticated by: ASHER SOLANO Date: 04/19/2023 07:04
== END 2023-04-18 12:42 | disposition home or self-care (01) ==
LOC: CARD 12:41
PROVIDERS: PCP Family Medicine; Visit Provider Internal Medicine
DX: M45.9 Ankylosing spondylitis of unspecified sites in spine (principal)
CPT/HCPCS: 36415; 71250; 85018; 94060; 94726; 94729

== ENCOUNTER 2023-05-07 09:17 | Outpatient (OUT) | payer MEDICARE, SELFPAY ==
--- NOTE | 2023-05-07 | XR_ITS ---
The [address] [address] Patient Name: ELENA FELIX MRN: [id number] date: 1960 Sex: M Assigned Patient Location: [facility] Current Patient Location: [facility] Accession/Order Number: [id number] Exam Date: 05/07/2023 09:45 Report Date: 05/07/2023 14:47 At the request of: ASHER SHEETS Procedure: XR hip LT 2V w/ pelvis AP pelvis and 2 dedicated views of the left hip INDICATION: Fracture follow-up COMPARISON: 04/09/2023 XR/XR hip LT 2V w/ pelvis IMPRESSION: ORIF changes of the left hip redemonstrated without overt complication. Right hip arthroplasty arbor partially visualized. No acute fractures or dislocation. Diffuse demineralization. Mild degenerative changes of the pubis symphysis, bilateral sacroiliac joints and partially visualized lower lumbar spine. Heterotopic ossification about the left hip. Electronically authenticated by: ANGELA PRETTY Date: 05/07/2023 14:47
--- OUTSIDE RECORDS SUMMARY | 2023-05-07 09:20 | XMS_ITS | CCD ---
Author Name Unknown Address [address] [place] [address] Organization [facility] Care Team Providers Care Heel Slicker Name Role Phone Silvana Lundberg Primary Care Provider Aleksey Perez Attending Provider Silvana Lundberg MD Primary Care Provider Samuel Burnette Unavailable Silvana Lundberg MD Primary Care Provider Samuel Burnette Unavailable Silvana Lundberg MD Primary Care Provider SILVANA LUNDBERG Primary Care Physician Tiffanie Rosario I Unavailable Unavailable Silvana Lundberg Unavailable Silvana Lundberg MD Primary Care Provider Samuel Burnette Unavailable Silvana Lundberg MD Primary Care Provider CARLOS KRISHNA Referring Unavailable SILVANA LUNDBERG Primary Care Unavailable Jesenia BAXTER, Maria Teresa Unavailable CARLOS KRISHNA Attending Unavailable CARLOS KRISHNA Admitting Unavailable DR AIDE DELEON Consulting Unavailable PANCHO, DR NOBLE Primary Care Unavailable MISC, DR WALL Attending Unavailable MISC, DR WALL Admitting Unavailable DR SILVANA LUNDBERG Primary Care Unavailable NIKKIE TREJO Admitting Unavailable NIKKIE TREJO Attending Unavailable RUSS, DR ASHER Moya Consulting Unavailable TAMIKA, DR SILVANA Ko Primary Care Unavailable NIKKIE TREJO Consulting Unavailable MISC, DR WALL Consulting Unavailable MISC, DR WALL Attending Unavailable MISC, DR WALL Admitting Unavailable LUNDBERG, DR SILVANA Ko Primary Care Unavailable LUNDBERG, DR SILVANA Ko Consulting Unavailable LUNDBERG, DR SILVANA Ko Attending Unavailable LUNDBERG, DR SILVANA Ko Admitting Unavailable BALL, DR NOBLE Primary Care Unavailable ALGHOTHANI, MOHAMAD Admitting Unavailable ALGHOTHANI, MOHFOX Attending Unavailable LUNDBERG, DR SILVANA Ko Primary Care Unavailable MISC, DR WALL Attending Unavailable MISC, DR WALL Admitting Unavailable LUNDBERG, DR SILVANA Ko Referring Unavailable MISC, DR WALL Consulting Unavailable LUNDBERG, DR SILVANA Ko Primary Care Unavailable ZIEBER, DR ASHER Moya Consulting Unavailable MISC, DR WALL Attending Unavailable MISC, DR WALL Admitting Unavailable LUNDBERG, DR SILVANA Ko Primary Care Unavailable MISC, DR WALL Consulting Unavailable MISC, DR WALL Attending Unavailable MISC, DR WALL Admitting Unavailable LUNDBERG, DR SILVANA Ko Primary Care Unavailable ALGHOTHANI, MOHAMAD Consulting Unavailable ALGHOTHANI, MOHJEAN CARLOSD Attending Unavailable LUNDBERG, DR SILVANA Ko Primary Care Unavailable ALGHOTHANI, MOHAMAD Admitting Unavailable HODGES, DR SALINAS Attending Unavailable MISC, DR WALL Consulting Unavailable LUNDBERG, DR SILVANA Ko Primary Care Unavailable HODGES, DR SALINAS Admitting Unavailable ALGHOTHANI, MOHAMARuss Consulting Unavailable ALGHOTHANI, MOHAMAD Attending Unavailable ALGHOTHANI, MOHAMAD Admitting Unavailable LUNDBERG, DR SILVANA Ko Primary Care Unavailable ALGHOTHANI, MOHAMAD Consulting Unavailable ALGHOTHANI, MOHAMAD Attending Unavailable ALGHOTHANI, MOHAMAD Admitting Unavailable LUNDBERG, DR SILVNAA Ko Primary Care Unavailable BALL, DR NOBLE Consulting Unavailable BALL, DR NOBLE Attending Unavailable BALL, DR NOBLE Admitting Unavailable BALL, DR NOBLE Primary Care Unavailable ALBERTINA, BRYSON Attending Unavailable LUNDBERG, DR SILVANA Ko Primary Care Unavailable ALBERTINA, BRYSON Admitting Unavailable WEST, DR MAJOR Jackson Consulting Unavailable ALBERTINA, BRYSON Consulting Unavailable MADAYANGELES Consulting Unavailable DANIS PANDA Consulting Unavailable HODGES, DR SALINAS Admitting Unavailable HODGES, DR SALINAS Attending Unavailable MISC, DR WALL Consulting Unavailable LUNDBERG, DR SILVANA Ko Primary Care Unavailable LUNDBERG, DR SILVANA Ko Attending Unavailable LUNDBERG, DR SILVANA Ko Admitting Unavailable BALL, DR NOBLE Primary Care Unavailable WEST, DR MAJOR Jackson Consulting Unavailable LUNDBERG, DR SILVANA Ko Consulting Unavailable MISC, DR WALL Consulting Unavailable MISC, DR WALL Attending Unavailable MISC, DR WALL Admitting Unavailable LUNDBERG, DR SILVANA E Primary Care Unavailable MARIA TERESA BA Attending Unavailable CARLOS KRISHNA Attending Unavailable NIKKIE TREJO Attending Unavailable ALFREDO COHN Attending Unavailable MD Silvana Lundberg Attending Provider NO FAMILY, PHYSICIAN Primary Care Provider Unava ilable MD Brad Hodges Attending Provider [phone] MAYUGA, [place] Referring Unavailable LUNDBERG, SILVANA E Primary Care Unavailable WASSIF, HEBA Referring Unavailable LUNDBERG, SILVANA E Primary Care Unavailable MAYUGA, AUSTIN Attending Unavailable WASSIF, HEBA Referring Unavailable LUNDBERG, SILVANA E Primary Care Unavailable WASSIF, HEBA Attending Unavailable LUNDBERG, SILVANA E Primary Care Unavailable WASSIF, HEBA Referring Unavailable ALEXUS NANCE Attending Unavailable LUNDBERG, SILVANA E Primary Care Unavailable MARQUIS ANDERSONINO Admitting Unavailable ANDERSONEMILY BECKMAN Attending Unavailable ANDERSON, IDAZ Referring Unavailable LUNDBERG, SILVANA E Primary Care Unavailable LUNDBERG, SILVANA E Primary Care Unavailable WASSIF, HEBA Referring Unavailable LUNDBERG, SILVANA E Primary Care Unavailable WASSIF, HEBA Referring Unavailable CAN, ANNA P Attending Unavailable MARQUIS ANDERSONINO Attending Unavailable LUNDBERG, SILVANA E Primary Care Unavailable CAN, ANNA P Referring Unavailable LUNDBERG, SILVANA E Primary Care Unavailable CAN, ANNA P Referring Unavailable LUNDBERG, SILVANA E Primary Care Unavailable CAN, ANNA P Referring Unavailable LUNDBERG, SILVANA E Primary Care Unavailable CAN, ANNA P Referring Unavailable LUNDBERG, SILVANA E Primary Care Unavailable MERLY MARTI Attending Unavailable CARAMLOU MERLY Referring Unavailable LUNDBERG, SILVANA E Primary Care Unavailable WASSIF, HEBA Attending Unavailable LUNDBERG, SILVANA E Primary Care Unavailable LUNDBERG, SILVANA E Primary Care Unavailable ANDERSONEMILY BECKMAN Attending Unavailable ANDERSON, DIAZ Admitting Unavailable Jerrod BELL Attending Unavailable Jerrod BELL Attending Unavailable NO FAMILY, PHYSICIAN Primary Care Provider Unava ilable MD Brad Hodges Attending Provider NO FAMILY, PHYSICIAN Primary Care Unavailable Brad Hodges Admitting Unavailable Brad Hodges Attending Unavailable NO FAMILY, PHYSICIAN Primary Care Unavailable Lundberg, Silvana E Admitting Unavailable LundbergVinnieia E Attending Unavailable NO FAMILY, PHYSICIAN Primary Care Unavailable Brad Hodges Admitting Unavailable Brad Hodges Attending Unavailable Allergies Allergy Classification Reported Allergen(s) Allergy Type Date of Onset Reaction(s) Facility (20 sources) Lisinopril; Translations: [lisinopril] Drug Allergy 09-17-19 22 Unknown [facility] (20 sources) Morphine; Translations: [morphine] Drug Allergy 08-25-19 17 Intolerance [facility] Work Phone: Comment on above: Tolerated hydromorph one during 11/2016 admission (17 sources) Losartan; Translations: [LOSARTAN] Drug Allergy 05-30-19 23 Unknown [facility] (2 sources) Morphine Drug Allergy 11-07-19 15 [facility] Repository (2 sources) patient allergy list reviewed by nurse or physicia Propensity to adverse reactions 04-15-20 14 Comment:Done [facility] Other (2 sources) Allergies Reconciled Propensity to adverse reactions Unknown [facility] Other Medications Current Medications Medication Drug Class(es) Dates Sig (Normalized) Sig (Original) acetaminophen 325 mg / oxyCODONE hydrochloride 5 mg oral tablet (3 sources) Opioid Agonist Start: 03-29-2023 take 1 tablet by mouth twice daily as needed Percocet 5-325 MG 1 tablet as needed Orally bid prn for 30 days Mar, Active Start: 01-22-2017 End: 09-21-2021 take 1 tablet by mouth every eight hours as needed oxyCODONE-acetaminophen (PERCOCET) 5-325 mg tablet Take 1 tablet by mouth every 8 hours as needed. 0 01/22/2017 09/21/2021 Discontinued Comment on above: Take 1 tablet by baltazar th every 8 hours as needed. Amitriptyline (3 sources) Tricyclic Antidepressant Amitrip tyline HCl Active End: 09-21-2021 take 1 tablet by mouth once daily at bedtime amitriptyline (ELAVIL) 50 mg tablet Take 50 mg by mouth daily at bedtime. 0 09/21/2021 Discontinued Comment on above: Take 50 mg by mouth daily at bedtime. amoxicillin 875 mg / clavulanate 125 mg oral tablet (3 sources) Penicillin-class Antibacterial Start: take 1 tablet by mouth every twelve hours Amoxicillin-Pot Clavulanate 875-125 MG 1 tablet Orally every 12 hrs for 10 days Nov, Active Aspir 81 (1 source) Start: 7 take 81 mg by mouth once daily Aspir 81 81 mg, Oral, Daily, Refills(s) 0, Prophylaxis Start Date: 11/19/16 Status: Ordered aspirin 81 mg chewable tablet (20 sources) Platelet Aggregation Inhibitor, Nonsteroidal Anti-inflammatory Drug take 1 tablet by mouth every twenty-four hours Aspirin 81 MG 1 tablet Orally Once a day Active take 81 mg by mouth once daily A SPIRIN ORAL Take 81 mg by mouth once daily. 0 Active Comment on above: Take 81 mg by mouth once daily. atorvastatin 40 mg oral tablet (20 sources) HMG-CoA Reductase Inhibitor Start: 07-05-19 atorvastatin 40 mg Tab Refills(s) 0 Start Date: 07/04/21 Status: Ordered Comment on above: Take 40 mg by mouth once daily. DULoxetine 60 mg oral capsule (20 sources) Serotonin and Norepinephrine Reuptake Inhibitor Start: 10-15-19 14 take 60 mg by mouth twice daily Cymbalta 60 mg, Oral, BID, Refills(s) 0, Depression Start Date: 10/14/13 Status: Ordered take 1 capsule by [facility] every twelve hours DULoxetine HCl 60 MG 1 capsule Orally Tw ice a day Active DULoxetine HCl A ctive Comment on above: Take 60 mg by mouth twice daily. ferrous sulfate 325 mg oral tablet (1 source) take 1 tablet by mouth three times weekly Ferrous Sulfate 325 (65 Fe) MG 1 tablet Orally Three times a Week for 30 days Active fluticasone propionate 0.05 mg/actuat metered dose nasal spray (3 sources) Corticosteroid Start: 3 take 1 spray(s) nasal route once daily Fluticasone Propionate 50 MCG/ACT 1 spray in each nostril Nasally Once a day for 30 days Nov, Active folic acid 1 mg oral tablet (20 sources) Start: 7 take 1 tablet by mouth once daily folic acid 1 mg Tab 1 mg = 1 tab(s), Oral, Daily, Refills(s) 0, Prophylaxis Start Date: 11/19/16 Status: Ordered Folic Acid Activ e Comment on above: Take 1 mg by mouth o nce daily. iv contrast (will be provided with radiology test) (2 sources) Start: 10-18-19 End: 10-19-19 iv contrast (will be provided with radiology test) MRI Cardiac w/Qflow Inject, intravenously, once for 1 dose. No IV access, insert saline lock prior to the beginning of sedation, infusion, injection of imaging exam. Discontinue saline lock post exam. If Pt has a central line or IVAD, may access for administration according to line specific nursing protocol. Once exam is complete flush line and de-access according to line specific nursing protocol in the MR contrast administration guidelines link 1 Each 0 10/17/2022 10/18/2022 Active Comment on above: MRI Cardiac w/Qflow Inject, intravenously, once for 1 dose. No IV access, insert saline lock prior to the beginning of sedation, infusion, injection of imaging exam. Discontinue saline lock post exam. If Pt has a central line or IVAD, may access for administration according to line specific nursing protocol. Once exam is complete flush line and de-access according to line specific nursing protocol in the MR contrast administration guidelines link leflunomide 20 mg oral tablet (20 sources) Antirheumatic Agent Start: 12-09-19 take 1 tablet by mouth once daily Arava 20 mg Tab 20 mg = 1 tab(s), Oral, Daily, Refills(s) 0, Arthritis Start Date: 12/08/16 Status: Ordered Leflunomide Acti ve Comment on above: Take 20 mg by mouth once daily. methotrexate 2.5 mg oral tablet (20 sources) Folate Analog Metabolic Inhibitor Start: 12-09-2016 methotrexate 2.5 mg Tab 25 mg = 10 tab(s), Oral, q7day, # 4 tab(s), Refills(s) 0, Arthritis Start Date: 12/09/16 Status: Ordered take 12.5 mg by mouth every week Methotrexate 2.5 MG 12.5mg Orally weekly Active take 5 tablets by mouth every we ek methotrexate 2.5 mg tablet Take 12.5 mg by mouth one time a week. 0 Active take 2 tablets by mouth every we ek methotrexate 2.5 mg tablet Take 5 mg by mouth one time a week. 0 Active Methotrexate Act audelia Comment on above: Take 12.5 mg by mout h once each week. Take 5 mg by mouth o ne time a week. Take 12.5 mg by mout h one time a week. methylPREDNISolone 4 mg tab dosepak (1 source) Start: 023 methylPREDNISolone 4 mg tab dosepak Refills(s) 0 Start Date: 05/01/22 Status: Ordered omeprazole 20 mg oral tablet (20 sources) Proton Pump Inhibitor Start: 014 take 20 mg by mouth once daily omeprazole 20 mg, Oral, Daily, Refills(s) 0, Control of stomach acid Start Date: 10/14/13 Status: Ordered take 1 capsule by mouth once jesse ly Omeprazole 20 MG 1 capsule 30 minutes before morning meal Orally Once a day Active Omeprazole Activ e Comment on above: Take 20 mg by mouth once daily. oxaprozin 600 mg oral tablet (20 sources) Nonsteroidal Anti-inflammatory Drug Start: 07-04-2021 oxaprozin 600 mg Tab Refills(s) 0 Start Date: 07/04/21 Status: Ordered take 2 tablets by mouth once jesse ly oxaprozin (DAYPRO) 600 mg tablet Take 1,200 mg by mouth once daily. 0 Active Comment on above: Take 1,200 mg by baltazar th once daily. perflutren lipid microspheres 1.3 mL in NaCl (PF) 0.9% 10 mL injection (DEFINITY) (14 sources) Start: 08-16-2022 End: 11-15-2023 perflutren lipid microspheres 1.3 mL in NaCl (PF) 0.9% 10 mL injection (DEFINITY) 125 ml sodium chloride 9 mg/ml prefilled syringe (14 sources) Start: 08-16-2022 End: 11-15-2023 sodium chloride 0.9 % (flush) 10 mL (BD POSIFLUSH) Sodium polystyrene sulfonate (8 sources) Start: 10-18-2022 Start: 10-18-2022 Sodium Polysty symone Sulfonate 15 GM/60ML 60 mL Orally Once a day for 2 days Sep, Active spironolactone 25 mg oral tablet (20 sources) Aldosterone Antagonist Start: 05-01-2022 spironolactone 25 mg Tab Refills(s) 0 Start Date: 05/01/22 Status: Ordered spironolactone ( ALDACTONE) 25 mg tablet Take 17.5 mg by mouth once daily. 0 Active Comment on above: Take 25 mg by mouth once daily. Take 17.5 mg by mout h once daily. sulfamethoxazole 800 mg / trimethoprim 160 mg oral tablet (4 sources) Dihydrofolate Reductase Inhibitor Antibacterial, Sulfonamide Antimicrobial Start: 11-01-19 take 1 tablet by mouth every twelve hours Bactrim DS 800-160 MG 1 tablet Orally Twice a day for 10 day(s) Oct, Active tamsulosin hydrochloride 0.4 mg oral capsule (20 sources) alpha-Adrenergic Malaika Start: 07-05-19 take 1 capsule by mouth twice daily tamsulosin 0.4 mg Cap 0.4 mg = 1 cap(s), Oral, BID, # 180 caplet(s), Refills(s) 3, Pharmacy: [facility]/pharmacy #[id number], 188, cm, 07/04/21 9:20:00 EDT, Height/Length Dosing, 131.8, kg, 07/04/21 9:20:00 EDT, Weight Dosing Start Date: 07/04/21 Status: Ordered take 1 capsule by mo ut every twenty-four hours Flomax 0.4 MG 1 capsule Orally Once a day Active Comment on above: Take 0.4 mg by mouth once daily. traMADol hydrochloride 50 mg oral tablet (7 sources) Opioid Agonist Start: 10-31-2022 take 1 tablet by mouth three times daily as needed traMADol HCl 50 MG 1 tablet as needed Orally tid prn for 7 days PRN Oct, Active Completed/Discontinued Medications Medication Drug Class(es) Dates Sig (Normalized) Sig (Original) [id number] 200 actuat albuterol 0.09 mg/actuat metered dose inhaler (20 sources) beta2-Adrenergic Agonist Start: 09-20-2021 End: 02-05-2023 albuterol HFA (PROVENTIL HFA, VENTOLIN HFA) 90 mcg/actuation inhaler take 1 puff(s) by in halation every four hours as needed Albuterol Sulfate HFA 108 (90 Base) MCG/ACT 1 puff as needed Inhalation every 4 hrs PRN Active take 1 puff(s) by in halation every four hours as needed Albuterol Sulfate HFA 108 (90 Base) MCG/ACT 1 puff as needed Inhalation every 4 hrs PRN Active B-12 - up to 1000 mcg (16 sources) Start: 12-27-2022 B-12 - up to 1 000 mcg Dec, 1000 mcg Start: 11-07-2022 B-12 - up to 1 000 mcg Oct, 1000 mcg Start: 10-16-2022 B-12 - up to 1 000 mcg Sep, 1000 mcg Budesonide / formoterol (20 sources) Corticosteroid, beta2-Adrenergic Agonist Start: 05-31-2022 End: 02-05-2023 take 2 puff(s) by inhalation every twelve hours budesonide-formoterol (SYMBICORT) 160-4.5 mcg/actuation inhaler Inhale 2 Puffs as instructed q 12 HR. 0 05/31/2022 02/05/2023 Discontinued (Other) Start: 05-31-2022 take 2 puff(s) by in halation every twelve hours budesonide-formoterol (SYMBICORT) 160-4.5 mcg/actuation inhaler Inhale 2 Puffs as instructed q 12 HR. 0 05/31/2022 Active take 2 puff(s) by in halation twice daily Symbicort 160-4.5 MCG/ACT 2 puffs Inhalation Twice a day Active Comment on above: Inhale 2 Puffs as in structed q 12 HR. carvedilol 6.25 mg oral tablet (2 sources) alpha-Adrenergic Malaika, beta-Adrenergic Malaika End: take 1 tablet by mouth twice daily at mealtime carvedilol (COREG) 6.25 mg tablet Take 6.25 mg by mouth twice daily with meals. 0 09/21/2021 Discontinued Comment on above: Take 6.25 mg by mout h twice daily with meals. cyclobenzaprine hydrochloride 10 mg oral tablet (15 sources) Muscle Relaxant End: take 1 tablet by mouth three times daily cyclobenzaprine (FLEXERIL) 10 mg tablet Take 10 mg by mouth three times daily. 0 10/06/2022 Discontinued (Course of therapy completed) Comment on above: Take 10 mg by mouth three times daily. FOLIC ACID/MULTIVIT-MIN/LUTEI N (CENTRUM SILVER ORAL) (2 sources) End: take 1 tablet by mouth once daily FOLIC ACID/MULTIVIT-MIN/LUTE IN (CENTRUM SILVER ORAL) Take by mouth. Take one(1) tablet daily. 0 09/21/2021 Discontinued take 1 tablet by mouth once andrae y FOLIC ACID/MULTIVIT-MIN/LUTEIN (CENTRUM SILVER ORAL) Take by mouth. Take one(1) tablet daily. 0 Active Comment on above: Take by mouth. Take one(1) tablet daily. furosemide 20 mg oral tablet (3 sources) Loop Diuretic End: 2 take 1 tablet by mouth once daily furosemide (LASIX) 20 mg tablet Take 20 mg by mouth once daily. 0 12/28/2021 Discontinued (Discontinued by another Health Care Provider) Comment on above: Take 20 mg by mouth once daily. gabapentin 300 mg oral capsule (20 sources) Anti-epileptic Agent Start: 8 take 3 capsules by mouth three times daily gabapentin (NEURONTIN) 300 mg capsule Take 3 capsules by mouth three times daily for 30 days. 270 capsule 2 02/21/2018 Active Start: 08-23-2017 End: 09-21-2021 take 1 tablet by mouth three times daily gabapentin (NEURONTIN) 600 mg tablet Take 1 tablet by mouth three times daily for 30 days. 90 tablet 1 08/23/2017 09/21/2021 Discontinued Gabapentin Activ e Comment on above: Take 1 tablet by baltazar three times daily for 30 days. Take 3 capsules by m outh three times daily for 30 days. levoFLOXacin 500 mg oral tablet (10 sources) Quinolone Antimicrobial Start: 07-05-19 End: 08-17-19 23 levoFLOXacin (LEVAQUIN) 500 mg tablet Take 750 mg by mouth once daily. 0 07/04/2021 08/16/2022 Discontinued (Course of therapy completed) Comment on above: Take 750 mg by mouth once daily. meloxicam 15 mg oral tablet (2 sources) Nonsteroidal Anti-inflammatory Drug Start: 08-06-19 End: 09-22-19 22 take 0.5 tablet by mouth once daily meloxicam (MOBIC) 15 mg tablet TAKE 1/2 TABLET BY MOUTH EVERY DAY 15 tablet 1 08/06/2019 09/21/2021 Discontinued Comment on above: TAKE 1/2 TABLET BY M OUTH EVERY DAY 24 hr metoprolol succinate 100 mg extended release oral tablet (20 sources) beta-Adrenergic Malaika Start: 06-04-19 23 take 50 mg by mouth once daily metoprolol succinate ER (TOPROL XL) 100 mg Take 50 mg by mouth once daily. 0 06/04/2022 Active Start: 06-04-2022 take 100 mg by mouth once andrae y metoprolol succinate ER (TOPROL XL) 100 mg Take 100 mg by mouth once daily. 0 06/04/2022 Active Start: 12-15-2016 End: 09-21-2021 take 1 tablet by mouth once daily metoprolol succinate ER (TOPROL XL) 25 mg 24 hr tablet Take 1 tablet by mouth once daily. 0 12/15/2016 09/21/2021 Discontinued Start: 11-19-2016 take 1 tablet by baltazar th once daily Metoprolol succinate 25 mg ER Tablet 25 mg, Oral, Daily, Refills(s) 0, High blood pressure Start Date: 11/19/16 Status: Ordered take 1 capsule by mo [facility] once daily Metoprolol Succinate 50 MG 1 capsule Orally Once a day Active Metoprolol Succi milvia Active Comment on above: Take 1 tablet by baltazar th once daily. Take 100 mg by mouth once daily. Take 50 mg by mouth once daily. midodrine hydrochloride 10 mg oral tablet (8 sources) alpha-Adrenergic Agonist Start: 3 End: 3 take 1 tablet by mouth three times daily midodrine (PROAMATINE) 10 mg tablet Take 10 mg by mouth three times daily. 0 07/12/2022 10/06/2022 Discontinued (Course of therapy completed) Comment on above: Take 10 mg by mouth three times daily. nystatin [id number] unt/ml oral suspension (6 sources) Polyene Antifungal Start: 0 take 4 mL by mouth four times daily Nystatin [id number] UNIT/ML 4 ml Mouth/Throat Four times a day for 10 day(s) Apr, Not-Taking oxyCODONE (6 sources) Opioid Agonist oxyCODONE HCl Not-Taking oxyCODONE HCl Ac tive predniSONE 50 mg oral tablet (15 sources) Start: 09-20-2021 End: 10-06-2022 predniSONE (DELTASONE) 50 mg pyridostigmine bromide 60 mg oral tablet (8 sources) Start: 08-10-2022 End: 08-10-2023 take 1 tablet by mouth three times daily pyridostigmine (MESTINON) 60 mg tablet Take 60 mg by mouth three times daily. 0 08/10/2022 10/06/2022 Discontinued (Course of therapy completed) Comment on above: Take 60 mg by mouth three times daily. tiZANidine 4 mg oral tablet (3 sources) Central alpha-2 Adrenergic Agonist Start: 10-30-2016 End: 09-21-2021 take 2 tablets by mouth every eight hours as needed tiZANidine (ZANAFLEX) 4 mg tablet Take 2 tablets by mouth three times daily as needed. 0 10/30/2016 09/21/2021 Discontinued tiZANidine HCl A ctive Comment on above: Take 2 tablets by mo uth three times daily as needed. 24 hr venlafaxine 75 mg extended release oral capsule (20 sources) Serotonin and Norepinephrine Reuptake Inhibitor Start: 05-08-19 23 take 1 capsule by mouth once daily venlafaxine ER (EFFEXOR XR) 75 mg 24 hr capsule Take 150 mg by mouth once daily. 0 05/08/2022 Active Start: 05-08-2022 take 1 capsule by mo uth once daily venlafaxine ER (EFFEXOR XR) 75 mg 24 hr capsule Take 75 mg by mouth once daily. 0 05/08/2022 Active Venlafaxine HCl ER 150 MG TAKE 1 CAPSULE BY MOUTH EVERY DAY WITH FOOD FOR 30 DAYS for 30 Active Comment on above: Take 75 mg by mouth once daily. Take 150 mg by mouth once daily. Problems Active Problems Problem Classification Problem Date Documented Da te Episodic/Chronic Acute bronchitis (4 sources) Acute bronchitis; Translations: [Acute bronchitis due to other specified organisms] Onset: 4 Episodic Allergic reactions (3 sources) Allergic disposition; Translations: [Allergy, unspecified, initial encounter] Episodic Asthma (12 sources) Moderate persistent asthma; Translations: [Moderate persistent asthma, uncomplicated] Chronic Blindness and vision defects (2 sources) Visual disturbance; Translations: [Other visual disturbances] Episodic Calculus of urinary tract (20 sources) Kidney stone; Translations: [Calculus of kidney] 07-19-2015 Episodic Cardiac dysrhythmias (5 sources) Postural orthostatic tachycardia syndrome ; Translations: [POTS (postural orthostatic tachycardia syndrome)] Onset: 3 Chronic Cardiac dysrhythmias (20 sources) Sinus tachycardia; Translations: [Tachycardia, unspecified] Onset: 7 02-05-2017 Episodic Chronic kidney disease (8 sources) Chronic kidney disease stage 3; Translations: [Stage 3 chronic kidney disease, unspecified whether stage 3a or 3b CKD] Chronic Chronic obstructive pulmonary disease and bronchiectasis (2 sources) Bronchitis; Translations: [Bronchitis, not specified as acute or chronic] Episodic Congestive heart failure; nonhypertensive (16 sources) Chronic diastolic heart failure; Translations: [Chronic diastolic (congestive) heart failure] Onset: 2 Chronic Coronary atherosclerosis and other heart disease (3 sources) Coronary arteriosclerosis; Translations: [Atherosclerotic heart disease of [place] coronary artery without angina pectoris] 11-30-2022 Chronic Deficiency and other anemia (8 sources) Pernicious anemia; Translations: [Vitamin B12 deficiency anemia due to intrinsic factor deficiency] Episodic Deficiency and other anemia (3 sources) Vitamin B12 deficiency anemia due to intrinsic factor deficiency Episodic Deficiency and other anemia (2 sources) Anemia; Translations: [Anemia, unspecified] Episodic Deficiency and other anemia (1 source) Iron deficiency anemia; Translations: [Other iron deficiency anemias] Episodic Deficiency and other anemia (1 source) Other iron deficiency anemias Episodic Esophageal disorders (20 sources) Gastroesophageal reflux disease; Translations: [Gastro-esophageal reflux disease without esophagitis] 12-15-2016 Chronic Essential hypertension (3 sources) Benign essential hypertension; Translations: [Essential hypertension, benign] Onset: 7 Chronic Fracture of neck of femur (hip) (1 source) Fracture of unspecified part of neck of left femur, sequela Episodic Genitourinary symptoms and ill-defined conditions (3 sources) Increased frequency of urination; Translations: [Dysuria] 05-01-2022 Episodic Hyperplasia of prostate (2 sources) Benign prostatic hypertrophy with outflow obstruction; Translations: [Benign prostatic hyperplasia with lower urinary tract symptoms] Onset: 3 Chronic Immunity disorders (2 sources) Immunodeficiency disorder; Translations: [Immunodeficiency, unspecified] Chronic Immunizations and screening for infectious disease (3 sources) Encounter for immunization; Translations: [Vaccination given] Onset: 2 Episodic Inflammatory conditions of male genital organs (2 sources) Chronic prostatitis; Translations: [Chronic prostatitis] Onset: 3 Chronic Inflammatory conditions of male genital organs (2 sources) Acute prostatitis; Translations: [Acute prostatitis] Episodic Joint disorders and dislocations; trauma-related (20 sources) Acetabular labrum tear; Translations: [Other articular cartilage disorders, unspecified hip] Onset: 6 07-19-2015 Chronic Mood disorders (20 sources) Major depression, single episode; Translations: [Major depressive disorder, single episode, in full remission] Onset: 6 09-12-2016 Chronic Noninfectious gastroenteritis (2 sources) Non-infective enteritis and colitis; Translations: [Noninfective gastroenteritis and colitis, unspecified] Episodic Nutritional deficiencies (2 sources) Deficiency of macronutrients; Translations: [Unspecified protein-calorie malnutrition] Onset: 7 Chronic Osteoarthritis (20 sources) Arthritis; Translations: [Unspecified osteoarthritis, unspecified site] Onset: 6 07-19-2015 Chronic Other acquired deformities (20 sources) Flatback syndrome; Translations: [Flatback syndrome, site unspecified] Onset: 6 09-12-2016 Chronic Other aftercare (1 source) Other detention (current) drug therapy; Translations: [OTH CORRECTION CURRENT DRUG THERAPY] Onset: 3 Episodic Other and ill-defined cerebrovascular disease (20 sources) Small vessel cerebrovascular disease; Translations: [Cerebrovascular disease, unspecified] Onset: 7 08-24-2016 Chronic Other and ill-defined heart disease (1 source) Heart disease 07-04-2021 Chronic Other circulatory disease (3 sources) Orthostatic hypotension; Translations: [Orthostatic hypotension] Onset: 3 Episodic Other circulatory disease (2 sources) Orthostatic hypotension; Translations: [Orthostatic hypotension] Onset: 3 Episodic Other circulatory disease (3 sources) Postural orthostatic tachycardia syndrome ; Translations: [Postural orthostatic tachycardia syndrome (POTS)] Onset: 3 Episodic Other circulatory disease (2 sources) Elevated blood-pressure reading without diagnosis of hypertension; Translations: [Elevated blood-pressure reading, without diagnosis of hypertension] Episodic Other connective tissue disease (9 sources) Cramp in lower limb; Translations: [Cramp and spasm] Episodic Other connective tissue disease (1 source) Pain in right lower limb; Translations: [Pain in right leg] Episodic Other diseases of kidney and ureters (1 source) Urinary tract obstruction; Translations: [Other obstructive and reflux uropathy] Onset: 3 Episodic Other inflammatory condition of skin (2 sources) Psoriasis; Translations: [Other psoriasis] Onset: 8 Chronic Other lower respiratory disease (3 sources) Dyspnea on exertion; Translations: [Other forms of dyspnea] Episodic Other lower respiratory disease (2 sources) Pleuritic pain; Translations: [Pleurodynia] Episodic Other male genital disorders (2 sources) Cyst of epididymis; Translations: [Cyst of epididymis] Onset: 3 Episodic Other male genital disorders (2 sources) Disorder of male genital organ; Translations: [Other specified disorders of the male genital organs] Episodic Other nervous system disorders (1 source) Disorder of the peripheral nervous system 10-08-2014 Chronic Other nervous system disorders (9 sources) Peripheral nerve disease ; Translations: [Polyneuropathy, unspecified] Chronic Other nervous system disorders (1 source) Disorder of autonomic nervous system; Translations: [Disorder of the autonomic nervous system, unspecified] Chronic Other nervous system disorders (2 sources) Other disorders of autonomic nervous system; Translations: [Other disorders of autonomic nervous system] Onset: 3 Chronic Other nervous system disorders (1 source) Neuropathy; Translations: [Idiopathic progressive neuropathy] Chronic Other nervous system disorders (2 sources) Narcolepsy without cataplexy ; Translations: [Narcolepsy without cataplexy] Onset: 7 Chronic Other nervous system disorders (2 sources) Hereditary peripheral neuropathy; Translations: [Unspecified hereditary and idiopathic peripheral neuropathy] Onset: 5 Chronic Other nervous system disorders (2 sources) Skin sensation disturbance; Translations: [Unspecified disturbances of skin sensation] Episodic Other nervous system disorders (1 source) Tremor; Translations: [Tremor, unspecified] Episodic Other nervous system disorders (1 source) Paresthesia; Translations: [Paresthesia of skin] Episodic Other non-traumatic joint disorders (2 sources) Arthralgia of the upper arm; Translations: [Pain in right elbow] Episodic Other nutritional; endocrine; and metabolic disorders (20 sources) Body mass index 40+ - severely obese; Translations: [Morbid (severe) obesity due to excess calories] 10-30-2016 Chronic Other nutritional; endocrine; and metabolic disorders (6 sources) Obese class II; Translations: [Body mass index (BMI) 35.0-35.9, adult] Onset: 8 Chronic Other nutritional; endocrine; and metabolic disorders (2 sources) Obesity; Translations: [Obesity, unspecified] Chronic Other nutritional; endocrine; and metabolic disorders (2 sources) Body mass index 30+ - obesity; Translations: [Body mass index 36.0-36.9, adult] Onset: 8 Chronic Other upper respiratory infections (2 sources) Chronic sinusitis; Translations: [Chronic sinusitis, unspecified] Chronic Otitis media and related conditions (2 sources) Non-suppurative otitis media; Translations: [Unspecified nonsuppurative otitis media, left ear] Episodic Alexa-; endo-; and myocarditis; cardiomyopathy (except that caused by tuberculosis or sexually transmitted disease) (12 sources) Dilated cardiomyopathy; Translations: [Cardiomyopathy, unspecified] Onset: 2 Chronic Phlebitis; thrombophlebitis and thromboembolism (2 sources) Deep venous thrombosis of peroneal vein; Translations: [Acute venous embolism and thrombosis of deep vessels of distal lower extremity] Onset: 7 Chronic Pulmonary heart disease (5 sources) Secondary pulmonary hypertension; Translations: [Other secondary pulmonary hypertension] Onset: 3 Chronic Residual codes; unclassified (20 sources) Obstructive sleep apnea syndrome; Translations: [Obstructive sleep apnea (adult) (pediatric)] Onset: 8 12-15-2016 Chronic Residual codes; unclassified (2 sources) Blood pressure alteration; Translations: [Other general symptoms and signs] Episodic Residual codes; unclassified (2 sources) Procedure not done; Translations: [Procedure and treatment not carried out because of patient's decision for unspecified reasons] Episodic Residual codes; unclassified (2 sources) Localized edema; Translations: [Localized edema] Episodic Rheumatoid arthritis and related disease (20 sources) Ankylosing spondylitis; Translations: [Ankylosing spondylitis of unspecified sites in spine] Onset: 7 12-15-2016 Chronic Screening and history of mental health and substance abuse codes (20 sources) Ex-smoker; Translations: [Personal history of nicotine dependence] Onset: 9 07-19-2015 Episodic Spondylosis; intervertebral disc disorders; other back problems (12 sources) Arthritis of spine; Translations: [Unspecified inflammatory spondylopathy, site unspecified] Onset: 8 Chronic Spondylosis; intervertebral disc disorders; other back problems (20 sources) Backache; Translations: [Dorsalgia, unspecified] Onset: 5 09-12-2016 Episodic Syncope (1 source) Near syncope; Translations: [Syncope and collapse] 02-05-2023 Episodic Tuberculosis (1 source) Tuberculosis of spine Episodic Unclassified (2 sources) COUGH, UNSPECIFIED; Translations: [COUGH, UNSPECIFIED] Onset: 2 Unclassified (1 source) CONTACT W/AND (SUSP) EXPOS COVID-19; Translations: [CONTACT W/AND (SUSP) EXPOS COVID-19] Onset: 2 Unclassified (2 sources) History of disease caused by Severe acute respiratory syndrome coronavirus 2 (situation); Translations: [Personal history of COVID-19] Unclassified (1 source) POTS (postural orthostatic tachycardia syndrome); Translations: [POTS (postural orthostatic tachycardia syndrome)] Onset: 3 Unclassified (1 source) Ankylosing spondylitis of unspecified sites in spine; Translations: [Ankylosing spondylitis of unspecified sites in spine] Onset: 3 Unclassified (1 source) Cellulitis of right lower limb; Translations: [Cellulitis of right lower limb] Onset: 3 Urinary tract infections (4 sources) Urethral syndrome; Translations: [Urethral syndrome, unspecified] Onset: 4 Episodic Viral infection (6 sources) COVID-19; Translations: [Disease caused by 2019-nCoV] Onset: 2 Past or Other Problems Problem Classification Problem Date Documented Da te Episodic/Chronic Abdominal pain (4 sources) Left lower quadrant pain; Translations: [Left lower quadrant pain] Onset: 01-15-2018 Episodic Biliary tract disease (1 source) Calculus of gallbladder without cholecystitis without obstruction; Translations: [CALCU GB W/O CHOLECYST W/O OBST] Onset: 04-28-2022 Episodic Chronic kidney disease (1 source) Chronic kidney disease Complications of surgical procedures or medical care (20 sources) Postoperative wound infection; Translations: [Infection following a procedure, other surgical site, initial encounter] Onset: 09-12-2016 09-22-2016 Episodic Conditions associated with dizziness or vertigo (5 sources) Lightheadedness; Translations: [Dizziness and giddiness] Onset: 06-18-2017 Episodic Deficiency and other anemia (4 sources) Anemia, unspecified; Translations: [ANEMIA UNSPECIFIED] Onset: 12-15-2021 Episodic Fluid and electrolyte disorders (2 sources) Hyperkalemia; Translations: [Hyperkalemia] Onset: 10-16-2022 Episodic Intestinal infection (20 sources) Clostridium difficile colitis; Translations: [Enterocolitis due to Clostridium difficile, not specified as recurrent] Onset: 09-22-2016 09-22-2016 Episodic Comment on above: Problem added second sean to documenting Active C-Diff. Malaise and fatigue (6 sources) Other fatigue; Translations: [Malaise and fatigue] Onset: 01-29-2017 Episodic Mycoses (20 sources) Candidiasis; Translations: [Candidiasis, unspecified] Onset: 06-02-2015 09-22-2016 Episodic Nausea and vomiting (2 sources) Nausea; Translations: [Nausea] Onset: 10-23-2014 Episodic Nonspecific chest pain (2 sources) Chest pain; Translations: [Chest pain, unspecified] Onset: 08-13-2017 Episodic Other aftercare (1 source) detention (current) use of aspirin; Translations: [CORRECTION CURRENT USE OF ASPIRIN] Onset: 09-22-2021 Episodic Other connective tissue disease (4 sources) Pain in left leg; Translations: [PAIN IN LEFT LEG] Onset: 09-14-2021 Episodic Other gastrointestinal disorders (2 sources) Diarrhea; Translations: [Diarrhea] Onset: 09-27-2018 Episodic Other hematologic conditions (20 sources) Raised cardiac enzyme or marker; Translations: [Other specified abnormalities of plasma proteins] Onset: 09-17-2016 09-17-2016 Episodic Other hematologic conditions (1 source) Cyst of spleen; Translations: [CYST OF SPLEEN] Onset: 04-28-2022 Episodic Other infections; including parasitic (20 sources) Disorder due to infection; Translations: [Unspecified infectious disease] Onset: 09-23-2016 10-30-2016 Episodic Other injuries and conditions due to external causes (20 sources) Local infection of wound; Translations: [Other injury of unspecified body region, initial encounter] Onset: 09-12-2016 09-22-2016 Episodic Other lower respiratory disease (5 sources) Dyspnea; Translations: [Shortness of breath] Onset: 05-02-2013 Episodic Other lower respiratory disease (5 sources) Dyspnea, unspecified; Translations: [DYSPNEA UNSPECIFIED] Onset: 04-19-2022 Episodic Other lower respiratory disease (4 sources) Shortness of breath; Translations: [SHORTNESS OF BREATH] Onset: 04-10-2022 Episodic Other lower respiratory disease (1 source) Other forms of dyspnea; Translations: [Exertional dyspnea] Onset: 10-04-2022 Episodic Other nervous system disorders (1 source) Unspecified disturbances of skin sensation; Translations: [Disturbance of skin sensation] Onset: 10-06-2022 Episodic Other nervous system disorders (1 source) Tremor, unspecified; Translations: [Tremulousness] Onset: 10-06-2022 Episodic Other non-traumatic joint disorders (20 sources) Pain in right hip joint; Translations: [Pain in right hip] Onset: 07-19-2015 07-19-2015 Episodic Other non-traumatic joint disorders (2 sources) Arthralgia of the pelvic region and thigh; Translations: [Pain in joint, pelvic region and thigh] Onset: 09-24-2018 Episodic Other screening for suspected conditions (not mental disorders or infectious disease) (3 sources) Abnormal results of pulmonary function studies; Translations: [Electrocardiogram abnormal] Onset: 01-26-2017 Episodic Other upper respiratory infections (4 sources) Acute maxillary sinusitis; Translations: [Acute recurrent maxillary sinusitis] Onset: 02-27-2013 Episodic Phlebitis; thrombophlebitis and thromboembolism (20 sources) Bilateral acute deep vein thrombosis of femoral veins; Translations: [Acute embolism and thrombosis of femoral vein, bilateral] Onset: 10-15-2016 12-15-2016 Episodic Pneumonia (except that caused by tuberculosis or sexually transmitted disease) (20 sources) Infective pneumonia; Translations: [Pneumonia, unspecified organism] Onset: 01-04-2017 02-05-2017 Episodic Residual codes; unclassified (20 sources) History of lumbar laminectomy; Translations: [Other specified postprocedural states] Onset: 07-19-2015 10-30-2016 Episodic Residual codes; unclassified (2 sources) Insomnia; Translations: [Insomnia, unspecified] Onset: 04-13-2017 Episodic Residual codes; unclassified (2 sources) Requires influenza virus vaccination; Translations: [Need for prophylactic vaccination and inoculation, Influenza] Onset: 01-11-2015 Episodic Residual codes; unclassified (1 source) Other general symptoms and signs; Translations: [Change in blood pressure] Onset: 08-16-2022 Episodic Skin and subcutaneous tissue infections (3 sources) Cellulitis of right lower limb; Translations: [Cellulitis and abscess of lower leg] Onset: 07-02-2015 Episodic Unclassified (1 source) COUGH, UNSPECIFIED; Translations: [COUGH, UNSPECIFIED] Onset: 09-20-2021 Results Test Name Value Interpretation Reference Range Facility Alanine aminotransferase [En zymatic activity/volume] in Serum or PlasmaOrdered By: Brad Hodges on 05-03-2023 ALT [Catalytic activity/Vol] 18 U/L 7-52 [facility] Albumin [Mass/volume] in Ser um or Plasma by Bromocresol green (BCG) dye binding methoOrdered By: Brad Hodges on 05-03-2023 Albumin BCG dye [Mass/Vol] 3.6 g/dL 3.5-5.7 [facility] Alkaline phosphatase [Enzyma tic activity/volume] in Serum or PlasmaOrdered By: Brad Hodges on 05-03-2023 ALP [Catalytic activity/Vol] 66 U/L 34-104 [facility] Aspartate aminotransferase [ Enzymatic activity/volume] in Serum or PlasmaOrdered By: Brad Hodges on 05-03-2023 AST [Catalytic activity/Vol] 16 U/L 13-39 [facility] Basophils Auto (Bld) [#/Vol] Ordered By: Brad Hodges on 05-03-2023 Basophils (Bld) [#/Vol] 0.0 10*3/uL 0.0-0.2 [facility] Basophils/100 WBC Auto (Bld) Ordered By: Brad Hodges on 05-03-2023 Basophils/100 WBC (Bld) 0.9 % . [facility] Bilirubin.total [Mass/volume ] in Serum or PlasmaOrdered By: Brad Hodges on 05-03-2023 Bilirubin [Mass/Vol] 0.4 mg/dL 0.3-1.0 [facility] Calcium [Mass/volume] in Ser um or PlasmaOrdered By: Brad Hodges on 05-03-2023 Calcium [Mass/Vol] 9.1 mg/dL 8.6-10.3 [facility] Carbon dioxide, total [Moles /volume] in Serum or PlasmaOrdered By: Brad Hodges on 05-03-2023 CO2 [Moles/Vol] 29.5 mmol/L 21.0-31.0 [facility] Chloride [Moles/volume] in S eliza or PlasmaOrdered By: Brad Hodges on 05-03-2023 Chloride [Moles/Vol] 107 mmol/L 98-107 [facility] Complete Blood Count Auto Di ffon 05-03-2023 Basophils (Bld) [#/Vol] 0.0 10*3/uL Normal 0.0-0.2 [facility] Comment on above: Performed By: #### C MP, ESR, CBC #### [address] Basophils/100 WBC (Bld) 0.9 % Normal . [facility] Comment on above: Performed By: #### C MP, ESR, CBC #### [facility] [address] [place] [address] Eosinophils (Bld) [#/Vol] 0.3 10*3/uL Normal 0.0-0.45 [facility] Comment on above: Performed By: #### C MP, ESR, CBC #### [address] Eosinophils/100 WBC (Bld) 6.6 % Normal . [facility] Comment on above: Performed By: #### C MP, ESR, CBC #### [facility] [address] Erythrocyte distribution width (RBC) [Ratio] 15.9 % High 12.0-14.8 [facility] Comment on above: Performed By: #### C MP, ESR, CBC #### [address] Hematocrit (Bld) [Volume fraction] 38.5 % Low 38.8-50.0 [facility] Comment on above: Performed By: #### C MP, ESR, CBC #### [address] Hemoglobin (Bld) [Mass/Vol] 12.3 g/dL Low 13.0-17.0 [facility] Comment on above: Performed By: #### C MP, ESR, CBC #### [address] Lymphocytes (Bld) [#/Vol] 1.2 10*3/uL Normal 1.00-4.8 [facility] Comment on above: Performed By: #### C MP, ESR, CBC #### [address] Lymphocytes/100 WBC (Bld) 25.4 % Normal . [facility] Comment on above: Performed By: #### C MP, ESR, CBC #### [address] MCH (RBC) [Entitic mass] 29.5 pg Normal 27.5-35.2 [facility] Comment on above: Performed By: #### C MP, ESR, CBC #### [address] MCV (RBC) [Entitic vol] 92.1 fL Normal 83.5-101 [facility] Comment on above: Performed By: #### C MP, ESR, CBC #### [address] Mean Corpuscular HGB Conc 32.0 g/dL Low 32.5-35.6 [facility] Comment on above: Performed By: #### C MP, ESR, CBC #### [address] Monocytes (Bld) [#/Vol] 0.2 10*3/uL Normal 0.0-0.8 [facility] Comment on above: Performed By: #### C MP, ESR, CBC #### [place] [address] [place] Monocytes/100 WBC (Bld) 4.3 % Normal . [facility] Comment on above: Performed By: #### C MP, ESR, CBC #### [facility] [address] Neutrophils (Bld) [#/Vol] 3.0 10*3/uL Normal 1.8-7.7 [facility] Comment on above: Performed By: #### C MP, ESR, CBC #### [facility] [address] Neutrophils/100 WBC (Bld) 62.8 % Normal . [facility] Comment on above: Performed By: #### C MP, ESR, CBC #### [facility] [address] NRBC% 0.1 /100{WBC} Normal 0-0.5 [facility] Comment on above: Performed By: #### C MP, ESR, CBC #### [facility] [address] Platelet mean volume (Bld) [Entitic vol] 8.2 fL Normal 6.6-10.1 [facility] Comment on above: Performed By: #### C MP, ESR, CBC #### [facility] [address] Platelets (Bld) [#/Vol] 249 10*3/uL Normal 150-450 [facility] Comment on above: Performed By: #### C MP, ESR, CBC #### [facility] [address] RBC (Bld) [#/Vol] 4.17 10*6/uL Normal 3.90-5.60 [facility] Comment on above: Performed By: #### C MP, ESR, CBC #### [facility] [address] WBC (Bld) [#/Vol] 4.8 10*3/uL Normal 4.1-10.5 [facility] Comment on above: Performed By: #### C MP, ESR, CBC #### [facility] [address] Comprehensive Metabolic Pane robert 05-03-2023 Albumin [Mass/Vol] 3.6 g/dL Normal 3.5-5.7 [facility] Comment on above: Performed By: #### C MP, ESR, CBC #### [facility] [address] Albumin/Globulin [Mass ratio] 1.4 {ratio} Normal [facility] Comment on above: Performed By: #### C MP, ESR, CBC #### [address] ALP [Catalytic activity/Vol] 66 U/L Normal 34-104 [facility] Comment on above: Result Comment: PERF ORMED BY: [place] [address] PATHOLOGIST [employer] JENNIFER CALDERON M.D. Performed By: #### C MP, ESR, CBC #### [address] ALT [Catalytic activity/Vol] 18 U/L Normal 7-52 [facility] Comment on above: Performed By: #### C MP, ESR, CBC #### [address] Anion gap [Moles/Vol] 10.1 mmol/L Normal 6.0-15.0 [facility] Comment on above: Performed By: #### C MP, ESR, CBC #### [address] AST [Catalytic activity/Vol] 16 U/L Normal 13-39 [facility] Comment on above: Performed By: #### C MP, ESR, CBC #### [address] Bilirubin [Mass/Vol] 0.4 mg/dL Normal 0.3-1.0 [facility] Comment on above: Performed By: #### C MP, ESR, CBC #### [place] [address] [place] Calcium [Mass/Vol] 9.1 mg/dL Normal 8.6-10.3 [facility] Comment on above: Performed By: #### C MP, ESR, CBC #### [facility] [address] Chloride [Moles/Vol] 107 mmol/L Normal 98-107 [facility] Comment on above: Performed By: #### C MP, ESR, CBC #### [facility] [address] CO2 [Moles/Vol] 29.5 mmol/L Normal 21.0-31.0 [facility] Comment on above: Performed By: #### C MP, ESR, CBC #### [address] Creatinine [Mass/Vol] 1.33 mg/dL High 0.70-1.30 [facility] Comment on above: Performed By: #### C MP, ESR, CBC #### [place] [address] [place] GFR/1.73 sq M.predicted MDRD (S/P/Bld) [Vol rate/Area] mL/min/{1.73_m2} [facility] Comment on above: Performed By: #### C MP, ESR, CBC #### [address] Globulin (S) [Mass/Vol] 2.6 g/dL [facility] Comment on above: Performed By: #### C MP, ESR, CBC #### [address] Glucose [Mass/Vol] 122 mg/dL High 70-100 [facility] Comment on above: Result Comment: [place] Glucose Reference Range is dependent on time and content of last meal. Glucose of more than 200 mg/dL in a nonstressed, ambulatory subject supports the diagnosis of Diabetes Mellitus. ADA recommended reference range Performed By: #### C MP, ESR, CBC #### [facility] [address] [place] [address] [place] Potassium [Moles/Vol] 4.6 mmol/L Normal 3.5-5.1 [facility] Comment on above: Performed By: #### C MP, ESR, CBC #### [facility] [address] Protein [Mass/Vol] 6.2 g/dL Low 6.4-8.9 [facility] Comment on above: Performed By: #### C MP, ESR, CBC #### [facility] [address] Sodium [Moles/Vol] 142 mmol/L Normal 136-145 [facility] Comment on above: Performed By: #### C MP, ESR, CBC #### [facility] [address] Urea nitrogen [Mass/Vol] 22 mg/dL Normal 7-25 [facility] Comment on above: Performed By: #### C MP, ESR, CBC #### [facility] [address] Creatinine [Mass/volume] in Serum or PlasmaOrdered By: Brad Hodges on 05-03-2023 Creatinine [Mass/Vol] 1.33 mg/dL 0.70-1.30 [facility] Eosinophils Auto (Bld) [#/Vo l]Ordered By: Brad Hodges on 05-03-2023 Eosinophils (Bld) [#/Vol] 0.3 10*3/uL 0.0-0.45 [facility] Eosinophils/100 WBC Auto (Bl d)Ordered By: Brad Hodges on 05-03-2023 Eosinophils/100 WBC (Bld) 6.6 % . [facility] Erythrocyte Sedimentation Ra alexia 05-03-2023 ESR (Bld) [Velocity] 35 mm/h High 0-19 [facility] Comment on above: Result Comment: PERF ORMED BY: [place] [address] PATHOLOGIST MAINTENANCE PLANNER JENNIFER CALDERON M.D. Performed By: #### C MP, ESR, CBC #### [facility] [address] [place] [address] Erythrocyte distribution wid th Auto (RBC) [Ratio]Ordered By: Brad Hodges on 05-03-2023 Erythrocyte distribution width (RBC) [Ratio] 15.9 % 12.0-14.8 [facility] Erythrocyte sedimentation ra te by Photometric methodOrdered By: Brad Hodges on 05-03-2023 ESR Photometric method (Bld) [Velocity] 35 mm/hr 0-19 [facility] Globulin Calc (S) [Mass/Vol] Ordered By: Brad Hodges on 05-03-2023 Globulin (S) [Mass/Vol] 2.6 g/dL [facility] Glucose [Mass/volume] in Ser um or PlasmaOrdered By: Brad Hodges on 05-03-2023 Glucose [Mass/Vol] 122 mg/dL 70-100 [facility] Comment on above: ADA recommended refe rence rangeRandom Glucose Reference Range is dependent on time and content of last meal. Glucose of more than 200 mg/dL in a nonstressed, ambulatory subject supports the diagnosis of Diabetes Mellitus. Hematocrit Auto (Bld) [Volum e fraction]Ordered By: Brad Hodges on 05-03-2023 Hematocrit (Bld) [Volume fraction] 38.5 % 38.8-50.0 [facility] Hemoglobin [Mass/volume] in BloodOrdered By: Brad Hodges on 05-03-2023 Hemoglobin (Bld) [Mass/Vol] 12.3 g/dL 13.0-17.0 [facility] Leukocytes [#/volume] correc christen for nucleated erythrocytes in Blood by Automated counOrdered By: Brad Hodges on 05-03-2023 WBC corrected for nucl RBC Auto (Bld) [#/Vol] 4.8 10*3/uL 4.1-10.5 [facility] Lymphocytes Auto (Bld) [#/Vo l]Ordered By: Brad Hodges on 05-03-2023 Lymphocytes (Bld) [#/Vol] 1.2 10*3/uL 1.00-4.8 [facility] Lymphocytes/100 WBC Auto (Bl d)Ordered By: Brad Hodges on 05-03-2023 Lymphocytes/100 WBC (Bld) 25.4 % . [facility] MCH Auto (RBC) [Entitic mass ]Ordered By: Brad Hodges on 05-03-2023 MCH (RBC) [Entitic mass] 29.5 pg 27.5-35.2 [facility] MCHC Auto (RBC) [Mass/Vol]Or dered By: Brad Hodges on 05-03-2023 MCHC (RBC) [Mass/Vol] 32.0 g/dL 32.5-35.6 [facility] MCV Auto (RBC) [Entitic vol] Ordered By: Brad Hodges on 05-03-2023 MCV (RBC) [Entitic vol] 92.1 fL 83.5-101 [facility] Monocytes Auto (Bld) [#/Vol] Ordered By: Brad Hodges on 05-03-2023 Monocytes (Bld) [#/Vol] 0.2 10*3/uL 0.0-0.8 [facility] Monocytes/100 WBC Auto (Bld) Ordered By: Brad Hodges on 05-03-2023 Monocytes/100 WBC (Bld) 4.3 % . [facility] Neutrophils Auto (Bld) [#/Vo l]Ordered By: Brad Hodges on 05-03-2023 Neutrophils (Bld) [#/Vol] 3.0 10*3/uL 1.8-7.7 [facility] Neutrophils/100 WBC Auto (Bl d)Ordered By: Brad Hodges on 05-03-2023 Neutrophils/100 WBC (Bld) 62.8 % . [facility] No Panel InformationOrdered By: Brad Hodges on 05-03-2023 Estimated GFR (CKD-EPI) > 60.0 mL/Min [facility] Creatinine Clearance (Chem N/A [facility] Nucleated erythrocytes [Pres ence] in Blood by Automated countOrdered By: Brad Hodges on 05-03-2023 Nucleated RBC Auto Ql (Bld) 0.1 /100{WBC} 0-0.5 [facility] Platelet mean volume Auto (B ld) [Entitic vol]Ordered By: Brad Hodges on 05-03-2023 Platelet mean volume (Bld) [Entitic vol] 8.2 fL 6.6-10.1 [facility] Platelets Auto (Bld) [#/Vol] Ordered By: Brad Hodges on 05-03-2023 Platelets (Bld) [#/Vol] 249 10*3/uL 150-450 [facility] Potassium [Moles/volume] in Serum or PlasmaOrdered By: Brad Hodges on 05-03-2023 Potassium [Moles/Vol] 4.6 mmol/L 3.5-5.1 [facility] Protein [Mass/volume] in Ser um or PlasmaOrdered By: Brad Hodges on 05-03-2023 Protein [Mass/Vol] 6.2 g/dL 6.4-8.9 [facility] RBC Auto (Bld) [#/Vol]Ordere d By: Brad Hodges on 05-03-2023 RBC (Bld) [#/Vol] 4.17 10*6/uL 3.90-5.60 [facility] Serum or plasma albumin/glob ulin mass ratioOrdered By: Brad Hodges on 05-03-2023 Albumin/Globulin [Mass ratio] 1.4 {ratio} [facility] Serum or plasma anion gap de terminationOrdered By: Brad Hodges on 05-03-2023 Anion gap [Moles/Vol] 10.1 mmol/L 6.0-15.0 [facility] Sodium [Moles/volume] in Ser um or PlasmaOrdered By: Brad Hodges on 05-03-2023 Sodium [Moles/Vol] 142 mmol/L 136-145 [facility] Urea nitrogen [Mass/volume] in Serum or PlasmaOrdered By: Brad Hodges on 05-03-2023 Urea nitrogen [Mass/Vol] 22 mg/dL 7-25 [facility] WBC Auto (Bld) [#/Vol]Ordere d By: Brad Hodges on 05-03-2023 WBC (Bld) [#/Vol] 4.8 10*3/uL 4.1-10.5 [facility] CNOVon 02-05-2023 CNOV Office Visit (SYNCMN ) ELENA FELIX ([id number]) 1960 M Date Time Provider Department 02/05/23 12:00 PM AUSTIN CLARK During your visit today, we recorded the following information about you: Weight 129.7 kg Anna Duvall, MAHSA 02/05/2023 1:39 PM Signed [facility] [place] [facility] and Kika Flannery Department of Cardiovascular Medicine SECTION OF CARDIAC PACING and ELECTROPHYSIOLOGY OUTPATIENT VISIT DATE February 05, 2023 PRIMARY CARE PHYSICIAN: Silvana Lundberg ([place]) [facility] [place] [address] REFERRING PHYSICIAN: Tricia Howard [address] [facility] [address] NURSING INTAKE HISTORY: Mr. Felix is a 62 year old male who is seen today for lightheadedness and POTS. 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 He is followed by Dr. Howard and was seen on 08/16/2022.Starting in 2019 post-op, began experiencing palpitations and tachycardia, reportedly in AF, thought to be just post-op. Continued to have palpitations and associated dyspnea. Symptoms progressed with more exertional dyspnea and decline in functional status. Echo showed EF as low as 25% in 2021, globally down LV. LHC with non-obst CAD and RHC with normal R sided pressures 06/2021. Continues to have exertional dyspnea, orthostatic lightheadedness/pre-syncope occurring every day. Tilt table test 07/2022 diagnosed POTS. Has been on midodrine and pyroidostigmine. Doing cardiac rehab. He was given a 2 week Zio monitor. He was seen by Anna North APRN.CNP on 10/06/22. She reported symptoms were more consistent with orthostatic hypotension with compensatory tachycardia, not POTS. He was tried previously on midodrine and pyridostigmine, both of which caused diarrhea and abdominal pain. She suggested Florinef or Droxidopa and to discuss with Dr. Howard. He followed up with Dr. Howard in October and was ordered a VQ scan and an exercise right heart cath. He reports feeling rapid HR at least once a day. He states he goes to stand or with exertion and he feels lightheaded and dizzy and feels his BP drop and will have near syncope. He is able to catch himself before having LOC most of the time. He reports also getting blacked out vision at times. He reports having only 2 episodes of LOC in the last year. He reports SOB with exertion. He denies abdominal distention, chest pain, orthopnea, palpitations, cough, edema. He drinks about 2 16.9 oz of water a day. He drinks 2-3 cans of Mountain Dew a day. He drinks 2-3 cups of coffee a day. He does drink about 3 beers a month. He doesn't wear compression stockings. He was doing Cardiac Rehab but has not done so recently. EK02/05/2023 O MONITOR: 09/14/2022 Patient had a min HR of 46 bpm, max HR of 177 bpm, and avg HR of 77 bpm. Predominant underlying rhythm was Sinus Rhythm. 38 nonsustained Supraventricular Tachycardia runs occurred, the run with the fastest interval lasting 5 beats with a max rate of 133 bpm, the longest lasting 14 beats with an avg rate of 90 bpm. Isolated SVEs were rare (<1.0%), SVE Couplets were rare (<1.0%), and SVE Triplets were rare (<1.0%). Isolated VEs were rare (<1.0%), VE Couplets were rare (<1.0%), and no VE Triplets were present. ECHO: 09/13/2022 CONCLUSIONS: - Exam indication: Shortness of Breath - The left ventricle is normal in size. Left ventricular systolic function is mildly decreased. EF = 51 ? 5% (2D biplane) Definity contrast used for endocardial border detection. Grade I left ventricular diastolic dysfunction. - The right ventricle is normal in size. Right ventricular systolic function is normal. - The left atrial cavity is mildly dilated. - The visualized aorta is borderline dilated with a maximal dimension of 3.9 cm. - Exam was compared with the prior echocardiographic exam performed on TILT TABLE TEST (OSH): 07/31/2022 STUDY CONCLUSIONS: Abnormal head upright tilt table study. The patient's heart rate, blood pressure response and symptoms were most consistent with orthostatic intolerance. Combined with vigilant maintenance of euvolemia and maintaining a moderate salt intake, pharmacologic treatment with Florinef and/or a Serotonin Selective Reuptake Inhibitor (SSRI) such as Lexapro among other treatments have shown some effectiveness in the treatment of this condition. PAST MEDICAL HISTORY Diagnosis Date - Ankylosing spondylitis ([facility]) Dr Hodges - Ankylosing spondylitis ([facility]) - Arthritis - Back pain - Cardiomyopathy ([facility]) Nonischemic Congestive - Cerebrovascular small vessel disease 08/24/2016 On ASA - DVT (deep venous thrombosis) ([facility]) - Es (more content not included)... [facility] ECG COMPLETEon 02-05-2023 ECG COMPLETE Ventricular Rate : 7 3 BPM Atrial Rate : 73 BPM P-R Interval : 150 ms QRS Duration : 94 ms Q-T Interval : 360 ms QTC Calculation(Bazett) : 396 ms Calculated P [place] : 42 degrees Calculated R [place] : 42 degrees Calculated T [place] : 52 degrees NORMAL SINUS RHYTHM NORMAL ECG Confirmed by ASHLI OCHOA MD ([id number]) on 02/12/2023 11:11:58 AM NAME : ELENA FELIX PID : [id number] : 1960 Gender : Male Race : ORD : [id number] Procedure Date : Feb 05 2023 10:45:05 Edit Date : Feb 12 2023 11:12:00 Diagnosis: NORMAL SINUS RHYTHM NORMAL ECG Confirmed by ASHLI OCHOA MD ([id number]) on 02/12/2023 11:11:58 AM Test Reason : Location : 314 : J14 J1-4 Overread By : ASHLI OCHOA MD Edited By : ASHLI OCHOA MD Referred By : AUSTIN CLARK Acquired by : RADHA PULLIAM Normal [facility] Hep C Ab wRfx to Qnt PCRon 0 12-11-2022 Hepatitis C Virus Antibody Non-Reactive Normal Non Reactive [facility] Comment on above: Performed By: #### Q UANT TB, HBCAB, HBSAG, HBSAB, HCV RX PCR #### [facility] , Interpretation Hepatitis C Normal . [facility] Comment on above: Result Comment: Not infected with HCV unless early or acute infection is suspected (which may be delayed in an immunocompromised individual), or other evidence exists to indicate HCV infection. Performed By: #### Q UANT TB, HBCAB, HBSAG, HBSAB, HCV RX PCR #### [facility] , Hepatitis B Core Antibodyon 12-11-2022 Hepatitis B Core Antibody Negative Normal Negative [facility] Comment on above: Result Comment: Perf ormed at: [address] [id number] [employer] Technician: Cosme Kang PhD, Phone: [phone] Performed By: #### Q UANT TB, HBCAB, HBSAG, HBSAB, HCV RX PCR #### [facility] , Hepatitis B Surface Antibody on 12-11-2022 Hepatitis B Surface Antibody Non-Reactive Normal . [facility] Comment on above: Result Comment: Non Reactive: Inconsistent with immunity, less than 10 mIU/mL Reactive: Consistent with immunity, greater than 9.9 mIU/mL Performed By: #### Q UANT TB, HBCAB, HBSAG, HBSAB, HCV RX PCR #### [facility] , Hepatitis B Surface Antigeno n 12-11-2022 HBsAg Screen Negative Normal Negative [facility] Comment on above: Result Comment: PERF ORMED BY: [facility] [address] [place] [address] PATHOLOGIST MAINTENANCE PLANNER JENNIFER CALDERON M.D. Performed By: #### Q UANT TB, HBCAB, HBSAG, HBSAB, HCV RX PCR #### [facility] , QuantiFERON TB Goldon 2022 QFTB Criteria Normal . [facility] Comment on above: Result Comment: Mj tiFERON-TB Gold Plus is a qualitative indirect test for M tuberculosis infection (including disease) and is intended for use in conjunction with risk assessment, radiography, and other medical and diagnostic evaluations. The QuantiFERON-TB Gold Plus result is determined by subtracting the Nil value from either TB antigen (Ag) value. The Mitogen tube serves as a control for the test. Performed By: #### Q UANT TB, HBCAB, HBSAG, HBSAB, HCV RX PCR #### [facility] , Quant TB Ag Value 0.05 Normal . [facility] Comment on above: Performed By: #### Q UANT TB, HBCAB, HBSAG, HBSAB, HCV RX PCR #### [facility] , Quant TB Gold Plus Negative Normal Negative [facility] Comment on above: Result Comment: No r esponse to M tuberculosis antigens detected. Infection with M tuberculosis is unlikely, but high risk individuals should be considered for additional testing (ATS/IDSA/CDC Clinical Practice Guidelines, 2017). The reference range is an Antigen minus Nil result of <0.35 IU/mL. The specimen received for QuantiFERON testing was incubated by the ordering institution. Specific procedures outlined in our Directory of Services and in the package insert for the QuantiFERON Gold (In Tube) test must be followed to enable for proper stimulation of cells for the production of interferon gamma. Chemiluminescence immunoassay methodology Performed at: [facility] [id number] [employer] Technician: Cosme Kang PhD, Phone: [phone] PERFORMED BY: [address] [address] PATHOLOGIST MAINTENANCE PLANNER JENNIFER CALDERON M.D. Performed By: #### Q UANT TB, HBCAB, HBSAG, HBSAB, HCV RX PCR #### [facility] , Quant TB2 Ag Value 0.05 Normal . [facility] Comment on above: Performed By: #### Q UANT TB, HBCAB, HBSAG, HBSAB, HCV RX PCR #### [facility] , Quantiferon Nil Value 0.06 Normal . [facility] Comment on above: Performed By: #### Q UANT TB, HBCAB, HBSAG, HBSAB, HCV RX PCR #### [facility] , Quantiferon TB Mitogen >10.00 Normal . [facility] Comment on above: Performed By: #### Q UANT TB, HBCAB, HBSAG, HBSAB, HCV RX PCR #### [facility] , CNOVon 11-17-2022 CNOV Office Visit (CARCMN ) ELENA FELIX ([id number]) 1960 M Date Time Provider Department 11/17/22 9:15 AM TRICIA HOWARD CARCMN During your visit today, we recorded the following information about you: Pulse Blood pressure Weight 62/minute 107/74 132 kg Tricia Howard MD 11/30/2022 5:11 PM Signed [facility] [place] Shanelle Flannery Department of Cardiovascular Medicine SECTION OF CLINICAL CARDIOLOGY OUTPATIENT VISIT DATE November 17, 2022 OUTPATIENT VISIT TYPE ESTABLISHED PRIMARY CARE PHYSICIAN: Silvana Lundberg (Shante) [address] [place] [id number] REFERRING PHYSICIAN: No referring provider defined for this encounter. CHIEF COMPLAINT: Follow-up appointment HISTORY OF PRESENT ILLNESS: Mr. Felix is a 62 year old male who presents today for a cardiovascular medicine follow-up visit for lightheadedness and shortness of breath. Patient was evaluated on 08/16/2022 due to ongoing symptoms of shortness of breath and palpitations. A VQ scan was requested as well as an exercise right heart cath as well as a Zio patch and an echo and he comes in for follow-up. He continues to experience similar symptoms with no change. No complaints of chest pain. PAST CARDIAC HISTORY: PAST MEDICAL HISTORY Diagnosis Date Ankylosing spondylitis (HCC) Dr Hodges Ankylosing spondylitis (HCC) Arthritis Back pain Cardiomyopathy ([facility]) Nonischemic Congestive Cerebrovascular small vessel disease 08/24/2016 On ASA DVT (deep venous thrombosis) ([facility]) Esophageal reflux Former smoker Kidney stones Major depressive disorder with single episode, in remission ([facility]) 08/24/2016 Morbid obesity with BMI of 40.0-44.9, adult ([facility]) Neuropathy Obstructive sleep apnea syndrome, severe On auto-CPAP - sleep study done on 07/10/16 Pneumonia PAST SURGICAL HISTORY Procedure Laterality Date BACK SURGERY HX 2013 BACK SURGERY HX 2015 MIDLINE INSERTION/CONSULT 09/05/2016 NOSE SURGERY HX sinus surg Dr Rojo PAST SURGICAL HISTORY OF 1986 R hand surgery PAST SURGICAL HISTORY OF 2001 R finger surgery PICC LINE INSERT/CONSULT 09/16/2016 TOTAL HIP JOINT REPLACEMENT Right SOCIAL HISTORY Social History Tobacco Use Smoking status: Former Packs/day: 2.00 Years: 21.00 Total pack years: 42.00 Types: Cigarettes Passive exposure: Past Smokeless tobacco: Never Tobacco comments: quit 1997 Substance Use Topics Alcohol use: No Drug use: No FAMILY HISTORY Problem Relation Age of Onset Breast Cancer Mother Stroke Mother other (Migraine) Mother may have had migraine HAs Emphysema Father Stroke Father Arthritis Father other (Negative) Father multiple sclerosis Patient-Entered Questionnaire Scores Patient Entered Questionnaires 11/10/2022 Average hours of sleep per day 6 Diagnosed with Sleep Apnea Yes Sleep Apnea Probability Snores loudly: No Tired, fatigued or sleepy in daytime: Yes Stops breathing or choking/gasping during sleep: Yes High blood pressure: No Sleep Apnea Probability Score 10/01/2022 Sleep Apnea Screen V2 64 (Recommend sleep study) Insomnia Severity Index (CLARISSA) 11/10/2022 Score 16 (Clinical insomnia - moderate severity) PROMIS Global Health - (T-Scores - the mean of general population = 50. Five points is a clinically meaningful difference.) 08/23/2017 01/09/2018 10/01/2022 Physical T-Score 32.4 29.6 26.7 Mental T-Score 31.3 38.8 31.3 Sleep Duration Level: N/A ALLERGIES: ALLERGIES Allergen Reactions Morphine Intolerance Patient thinks that with previous surgery he had a mental psychotic reaction with the combination of Lyrica and Morphine. Lisinopril Unknown Losartan Unknown MEDICATIONS: budesonide-formoterol (SYMBICORT) 160-4.5 mcg/actuation inhalerInhale 2 Puffs as instructed q 12 HR.Disp: Rfl: metoprolol succinate ER (TOPROL XL) 100 mgTake 50 mg by mouth once daily.Disp: Rfl: venlafaxine ER (EFFEXOR XR) 75 mg 24 hr capsuleTake 150 mg by mouth once daily.Disp: Rfl: albuterol HFA (PROVENTIL HFA, VENTOLIN HFA) 90 mcg/actuation inhalerDisp: Rfl: spironolactone (ALDACTONE) 25 mg tabletTake 17.5 mg by mouth once daily.Disp: Rfl: ASPIRIN ORALTake 81 mg by mouth once daily.Disp: Rfl: oxaprozin (DAYPRO) 600 mg tabletTake 1,200 mg by mouth once daily.Disp: Rfl: tamsulosin (FLOMAX) 0.4 mgTake 0.4 mg by mouth once daily.Disp: Rfl: atorvastatin (LIPITOR) 40 mg tabletTake 40 mg by mouth once daily.Disp: Rfl: gabapentin (NEURONTIN) 300 mg capsuleTake 3 capsules by mouth three times daily for 30 days.Disp: 270 capsuleRfl: 2 leflunomide (ARAVA) 20 mg tabletTake 20 mg by mouth once daily.Disp: Rfl: methotrexate 2.5 mg tabletTake 12.5 mg by mouth one time a week.Disp: Rfl: folic acid 1 mg tabletTake 1 mg by mouth once daily.Disp: Rfl: omeprazole (PRILOSEC) 20 mg capsule (more content not included)... [facility] CNOVSPon 11-15-2022 [facility] Visit (SP) Office (H EMASA) ELENA FELIX ([id number]) 1960 M Date Time Provider Department 11/15/22 11:30 AM MERLY MARTI During your visit today, we recorded the following information about you: Temperature Pulse Respiration Blood pressure 97.9 degrees 71/minute 16/minute 130/73 Weight Height 134.4 kg 1.88 m Merly Marti MD 11/15/2022 11:35 AM Signed PATIENT NAME: Elena Felix CLINIC NO.: [id number] ATTENDING PHYSICIAN: Merly Marti MD DATE OF SERVICE: November 15, 2022 Some of the elements of this note have been copied from my previous progress note dated 01/18/2022. All the information has been reviewed carefully. Dear Dr. Silvana Lundberg, here is an update on a follow up visit on male Elena Felix at the clinic November 15, 2022 Diagnosis: DVT Treatment History: HPI: Elena Felix is a 62 year old year old male here for follow up. No new complaints and continues to be off the Eliquis. He did have a bad sunburn and had R leg swelling and US was negative for DVT. He had seen neurology recently and had a slight elevatuion in his serum free kappa light chain and GILLIAN was negative. PAST MEDICAL HISTORY Diagnosis Date Ankylosing spondylitis ([facility]) Dr Hodges Ankylosing spondylitis ([facility]) Arthritis Back pain Cardiomyopathy ([facility]) Nonischemic Congestive Cerebrovascular small vessel disease 08/24/2016 On ASA DVT (deep venous thrombosis) ([facility]) Esophageal reflux Former smoker Kidney stones Major depressive disorder with single episode, in remission ([facility]) 08/24/2016 Morbid obesity with BMI of 40.0-44.9, adult ([facility]) Neuropathy Obstructive sleep apnea syndrome, severe On auto-CPAP - sleep study done on 07/10/16 Pneumonia Social History Tobacco Use Smoking status: Former Packs/day: 2.00 Years: 21.00 Total pack years: 42.00 Types: Cigarettes Passive exposure: Past Smokeless tobacco: Never Tobacco comments: quit 1998 Substance Use Topics Alcohol use: No Drug use: No FAMILY HISTORY Problem Relation Age of Onset Breast Cancer Mother Stroke Mother other (Migraine) Mother may have had migraine HAs Emphysema Father Stroke Father Arthritis Father other (Negative) Father multiple sclerosis Past medical, social and family history reviewed without any changes. REVIEW OF SYSTEMS GENERAL: No weight loss, malaise or fevers. No night sweats. HEENT: Negative for headaches, No changes in hearing or vision, no nose bleeds or other nasal problems. RESPIRATORY: Negative for cough, wheezing and shortness of breath CARDIOVASCULAR: Negative for chest pain, leg swelling and palpitations GI: Negative for abdominal discomfort, blood in stools or black stools and change in bowel habits : Negative for dysuria, frequency and incontinence MUSCULOSKELETAL: Negative for joint pain or swelling, back pain, and muscle pain. SKIN: Negative for lesions, rash, and itching. HEMATOLOGY/LYMPHOLOGY Negative for prolonged bleeding, bruising easily, and swollen nodes. NEURO: Negative for numbness or tingling of hands/feet. No weakness. PHYSICAL EXAMINATION: BP 130/73 Pulse 71 Temp (Src) 97.9 (Temporal) Resp 16 Ht 6' 2.016 (1.88m) Wt 296 lb 6.4 oz (134.4kg) SpO2 96% BMI 38.04 kg/(m2). Wt 135.5 kg (298 lb 12.8 oz) BMI 37.35 kg/m2 Last 3 Encounter Wt Readings: Date: Wt: 12/28/2021 135.5 kg (298 lb 12.8 oz) 09/21/2021 132.6 kg (292 lb 6.4 oz) 04/02/2019 141.4 kg (311 lb 12.8 oz) General appearance:ECOG PERFORMANCE STATUS: 0- Fully active, able to carry on all pre-disease performance w/o restriction. Patient in NAD. Skin: Skin color, texture, turgor normal. No rashes or lesions. Eyes: Anicteric sclera. Pupils are equally round and reactive to light. Extraocular movements are intact. Lymph Nodes: No cervical, supraclavicular, axillary or inguinal adenopathy. Oropharynx: Lips, mucosa, and tongue normal. Back: No pain to percussion. Negative SLR test Lungs clear to auscultation, No wheezing or rhonchi Heart: RRR without murmur, gallop, or rubs. Abdomen soft, non-tender. No masses, organomegaly Extremities: No deformities. No edema Neuro: Gait and speech normal. Reflexes normal and symmetric. Muscular strength intact. Sensation grossly intact. Rectal: Deferred : Deferred LABS: Glucose (mg/dL) Date Value 10/16/2022 93 12/15/2016 101 Potassium (mmol/L) Date Value 10/16/2022 5.3 12/15/2016 4.1 Sodium (mmol/L) Date Value 10/16/2022 139 12/15/2016 140 Chloride (mmol/L) Date Value 10/16/2022 104 12/15/2016 96 CO2 (mmol/L) Date Value 10/16/2022 24 12/15/2016 31 Creatinine (mg/dL) Date Value 10/16/2022 1.43 12/15/2016 0.87 BUN (mg/dL) Date Value 10/16/2022 18 12/15/2016 10 Anion Gap (mmol/L) Date Value 10/16/2022 11 12/15/2016 13 Calcium (mg/dL) Date Value 12/15/2016 9.3 Calci (more content not included)... [facility] Aerobic Cultureon 10-31-2022 Aerobic Culture ORGANISM: Staphyloco ccus aureus (O:STAAUR) Quantity of Growth Light Growth No Anaerobes Isolated 3 Days Gram Stain Result No Bacteria Seen Aerobic MARIZA Charge (PCMIC38) SUSCEPTIBILITY ORGANISM: O:STAAUR ANTIBIOTIC INTERPRETATION MARIZA Azithromycin S <2 Ceftaroline S <0.5 Ciprofloxacin S <1 Clindamycin S 0.5 Daptomycin S <0.5 Levofloxacin S <1 Linezolid S 2 Oxacillin S 0.5 Penicillin BETTY >2 Tetracycline S <4 Trimethoprim/Sulfamethoxazo le S <0.5 Vancomycin S 1 S = SUSCEPTIBLE I = INTERMEDIATE R = RESISTANT BLANK = DATA NOT AVAILABLE, OR DRUG NOT ADVISABLE OR TESTED R* = RESISTANCE DUE TO EXTENDED SPECTRUM BETA-LACTAMASES ESBL = EXTENDED SPECTRUM BETA-LACTAMASE TFG = THYMIDINE-DEPENDENT STRAIN BETTY = BETA-LACTAMASE POSITIVE IB = INDUCIBLE BETA-LACTAMASE. APPEARS IN PLACE OF 'S' WITH SPECIES KNOWN TO POSSESS INDUCIBLE BETA-LACTAMASES. POTENTIALLY THEY MAY BECOME RESISTANT TO ALL B-LACTAM DRUGS. PERFORMED BY: [place] [address] PATHOLOGIST MAINTENANCE PLANNER JENNIFER CALDERON M.D. [facility] Comment on above: Performed By: #### G S, AERC #### [address] Anaerobic cultureOrdered By: Silvana Lundberg on 10-31-2022 Bacteria identified Anaer cx Nom (Unsp spec) No Anaerobes Isolated 3 Days [facility] Bacteria identified Aer cx N om (Unsp spec)Ordered By: Silvana Lundberg on 10-31-2022 Aerobic Culture Staphylococcus aureus [facility] Gram Stainon 10-31-2022 Microscopic observation Gram stain Nom (Unsp spec) Gram Stain Result No Bacteria Seen PERFORMED BY: [facility] [address] [facility] [place] [address] PATHOLOGIST MAINTENANCE PLANNER JENNIFER CALDERON M.D. Normal [facility] Comment on above: Performed By: #### G S, AERC #### [facility] [address] Gram stain for investigation of transfusion reactionOrdered By: Silvana Lundberg on 10-31-2022 Microscopic observation Gram stain Nom (Unsp spec) [facility] CRP SerPl-mCncon 10-18-2022 CRP [Mass/Vol] mg/L Normal <0.9 [facility] Comment on above: Order Comment: Speci men Type: BLOOD SPECIMEN Ordering Facility: [facility] Address: [address] [address] Performed By: #### 2 4323-8, 2063-07, 2275-07, 6-3 #### [facility] CLIA [id number] [address] [place] [address] STATES OF PER ESR Westergren method (Bld) [Velocity]on 10-18-2022 ESR (Bld) [Velocity] 31 mm/h High 0-15 [facility] Comment on above: Order Comment: Speci men Type: BLOOD SPECIMEN Ordering Facility: [facility] Address: [address] Performed By: #### 2 4323-8, 2063-07, 4, 6-3 #### [facility] CLIA [id number] [address] [place] [address] [place] CNPNimo 10-17-2022 CNPN Telephone ([facility]) ELENA FELIX ([id number]) 1960 M Date Time Provider Department 10/17/22 ANNA NORTH During your visit today, we recorded the following information about you: Shelia Woods RN 10/17/2022 9:10 AM Signed Called patient to discuss results of BMP with kidney function and potassium levels still elevated. Left generic message on non-identifying voicemail to return call or read Zoomph message sent to notify him. 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 LISINOPRIL 09/16/2021 16 - Unknown LOSARTAN 05/30/2022 16 - Unknown Date Reviewed: 10/06/2022 Reviewed by: Anna North APRN.ROLLER CHECKER - Fully Assessed Reason for Visit: Results [95] Cmt: Abnormal Labs Prescriptions as of 10/23/2022 - budesonide-formoterol (SYMBICORT) 160-4.5 mcg/actuation inhaler Inhale 2 Puffs as instructed q 12 HR. - metoprolol succinate ER (TOPROL XL) 100 mg Take 50 mg by mouth once daily. - venlafaxine ER (EFFEXOR XR) 75 mg 24 hr capsule Take 150 mg by mouth once daily. - albuterol HFA (PROVENTIL HFA, VENTOLIN HFA) 90 mcg/actuation inhaler - spironolactone (ALDACTONE) 25 mg tablet Take 17.5 mg by mouth once daily. - ASPIRIN ORAL Take 81 mg by mouth once daily. - oxaprozin (DAYPRO) 600 mg tablet Take 1,200 mg by mouth once daily. - tamsulosin (FLOMAX) 0.4 mg Take 0.4 mg by mouth once daily. - atorvastatin (LIPITOR) 40 mg tablet Take 40 mg by mouth once daily. - gabapentin (NEURONTIN) 300 mg capsule Take 3 capsules by mouth three times daily for 30 days. - leflunomide (ARAVA) 20 mg tablet Take 20 mg by mouth once daily. - methotrexate 2.5 mg tablet Take 12.5 mg by mouth one time a week. - folic acid 1 mg tablet Take 1 mg by mouth once daily. - omeprazole (PRILOSEC) 20 mg capsule Take 20 mg by mouth once daily. - DULoxetine (CYMBALTA) 60 mg capsule Take 60 mg by mouth twice daily. Facility-Administered Medications as of 10/23/2022 - perflutren lipid microspheres 1.3 mL in NaCl (PF) 0.9% 10 mL injection (DEFINITY) - sodium chloride 0.9 % (flush) 10 mL (BD POSIFLUSH) Problem List As Of Date 10/17/2022 Noted Resolved Ankylosing spondylitis (HCC) [M45.9] Esophageal reflux [K21.9] Arthritis [M19.90] Kidney stones [N20.0] Back pain [M54.9] Pneumonia [J18.9] 12/15/2016 Former smoker [Z87.891] Labral tear of hip, degenerative [M24.159] 07/19/2015 Bilateral low back pain without sciatica [M54.5*07/19/2015 Pain in right hip [M25.551] 07/19/2015 Flat back syndrome [M40.30] 07/19/2015 S/P lumbar laminectomy [Z98.890] 07/19/2015 Primary osteoarthritis of right hip [M16.11] 12/01/2015 Right lumbar radiculitis [M54.16] 06/13/2016 Morbid obesity with BMI of 40.0-44.9, adult (HC* Obstructive sleep apnea syndrome, severe [G47.3* Major depressive disorder with single episode, *08/24/2016 Cerebrovascular small vessel disease [I67.9] 08/24/2016 Wound infection after surgery [T81.49XA] 09/12/2016 Wound infection [T14.8XXA, L08.9] 09/12/2016 Elevated troponin level [R77.8] 09/17/2016 Patricia infection [B37.9] 09/22/2016 C. difficile colitis [A04.72] 09/22/2016 Wound drainage [L24.A9] 09/23/2016 10/30/2016 Acute deep vein thrombosis (DVT) of femoral vei*10/15/2016 Infection [B99.9] 09/23/2016 Anticoagulation management encounter [Z51.81, Z*10/27/2016 10/30/2016 TIFFANIE (acute kidney injury) (HCC) [N17.9] 12/09/2016 12/15/2016 Pneumonia of left lower lobe due to infectious *02/05/2017 Sinus tachycardia [R00.0] 02/05/2017 Encounter Status:Closed by SHELIA WOODS on 10/23/22 Normal [facility] Basic metabolic 2000 panelon 10-16-2022 Anion gap [Moles/Vol] 11 mmol/L Normal 9-18 [facility] Comment on above: Order Comment: Speci men Type: BLOOD SPECIMEN Ordering Facility: [facility] Address: [address] [place] [address] Performed By: #### 2 4323-8, 2063-07, 2275-4, 3016-3 #### [facility] CLIA [id number] [address] [place] [address] [place] Calcium [Mass/Vol] 9.8 mg/dL Normal 8.5-10.2 [facility] Comment on above: Order Comment: Speci men Type: BLOOD SPECIMEN Ordering Facility: [facility] Address: [address] [place], [place] [id number] Performed By: #### 2 4323-8, 2063-07, 2275-4, 3016-3 #### [facility] CLIA [id number] [address] [place] [address] [place] Chloride [Moles/Vol] 104 mmol/L Normal 97-105 [facility] Comment on above: Order Comment: Speci men Type: BLOOD SPECIMEN Ordering Facility: [facility] Address: [address] [place], [place] [phone] Performed By: #### 2 4323-8, 4, 2275-4, 6-3 #### [facility] CLIA [id number] [address] [place] [address] [place] CO2 [Moles/Vol] 24 mmol/L Normal 22-30 [facility] Comment on above: Order Comment: Speci men Type: BLOOD SPECIMEN Ordering Facility: [facility] Address: [address] [place] [address] Performed By: #### 2 4323-8, 2063-4, 2275-4, 6-3 #### [facility] CLIA [id number] [address] [place] [address] [place] Creatinine [Mass/Vol] 1.43 mg/dL High 0.73-1.22 [facility] Comment on above: Order Comment: Speci men Type: BLOOD SPECIMEN Ordering Facility: [facility] Address: [address] [place] [address] Performed By: #### 2 4323-8, 2063-07, 4, 6-3 #### [facility] CLIA [id number] [address] [place] [address] [place] ESTIMATED GLOMERULAR FILTRATION RATE 55 mL/min/1.73m??? Low >=60 [facility] Comment on above: Order Comment: Speci men Type: BLOOD SPECIMEN Ordering Facility: [facility] Address: [address] [place] [address] Result Comment: Aneta mated Glomerular Filtration Rate (eGFR) is calculated using the 2020 CKD-EPI creatinine equation. This equation utilizes serum creatinine, sex, and age as parameters. The creatinine assay has traceable calibration to isotope dilution-mass spectrometry. Refer to KDIGO guidelines for clinical interpretation. In patients with unstable renal function, e.g. those with acute kidney injury, the eGFR may not accurately reflect actual GFR. Performed By: #### 2 4323-8, 2063-4, 2275-4, 6-3 #### [facility] CLIA [id number] [address] [place] [address] [place] Glucose [Mass/Vol] 93 mg/dL Normal 74-99 [facility] Comment on above: Order Comment: Speci men Type: BLOOD SPECIMEN Ordering Facility: [facility] Address: [address] [place], [place] [phone] Result Comment: The [place] Diabetes Association (ADA) provides guidance for cutoff values for fasting glucose and random glucose. The ADA defines fasting as no caloric intake for at least 8 hours. Fasting plasma glucose results between 100 to 125 mg/dL indicate increased risk for diabetes (prediabetes). Fasting plasma glucose results greater than or equal to 126 mg/dL meet the criteria for diagnosis of diabetes. In the absence of unequivocal hyperglycemia, results should be confirmed by repeat testing. In a patient with classic symptoms of hyperglycemia or hyperglycemic crisis, random plasma glucose results greater than or equal to 200 mg/dL meet the criteria for diagnosis of diabetes. Reference: Standards of Medical Care in Diabetes 2016, [place] Diabetes Association. Diabetes Care. 2016.39(Suppl 1). Performed By: #### 2 4323-8, 2063-07, 2275-4, 3016-3 #### [facility] CLIA [id number] [address] [place] [address] [place] Potassium [Moles/Vol] 5.3 mmol/L High 3.7-5.1 [facility] Comment on above: Order Comment: Speci men Type: BLOOD SPECIMEN Ordering Facility: [facility] Address: [address] [place] [phone] Performed By: #### 2 4323-8, 2063-07, 2275-4, 3016-3 #### [facility] CLIA [id number] [address] [place] [address] [place] Sodium [Moles/Vol] 139 mmol/L Normal 136-144 [facility] Comment on above: Order Comment: Speci men Type: BLOOD SPECIMEN Ordering Facility: [facility] Address: [address] [place], [place] [phone] Performed By: #### 2 4323-8, 2063-07, 2275-4, 6-3 #### [facility] CLIA [id number] [address] [place] [address] [place] Urea nitrogen [Mass/Vol] 18 mg/dL Normal 9-24 [facility] Comment on above: Order Comment: Speci men Type: BLOOD SPECIMEN Ordering Facility: [facility] Address: [address] [place], [place] [phone] Performed By: #### 2 4323-8, 2063-4, 2275-4, 6-3 #### [facility] CLIA [id number] [address] [place] [address] [place] EMG(NEURO/NI)on 10-16-2022 [facility] CNPNon 10-12-2022 CNPN Telephone ([facility]) ELENA FELIX ([id number]) 1960 M Date Time Provider Department 10/12/22 ANNA NORTH During your visit today, we recorded the following information about you: Shelia Woods RN 10/12/2022 1:13 PM Signed Called and left a generic message on non-identifying City Notesmail for return call if he has any questions about the Zoomph message that Anna sent. 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 LISINOPRIL 09/16/2021 16 - Unknown LOSARTAN 05/30/2022 16 - Unknown Date Reviewed: 10/06/2022 Reviewed by: Anna North APRN.ROLLER CHECKER - Fully Assessed Reason for Visit: Results [95] Cmt: Abnormal labs Prescriptions as of 10/23/2022 - budesonide-formoterol (SYMBICORT) 160-4.5 mcg/actuation inhaler Inhale 2 Puffs as instructed q 12 HR. - metoprolol succinate ER (TOPROL XL) 100 mg Take 50 mg by mouth once daily. - venlafaxine ER (EFFEXOR XR) 75 mg 24 hr capsule Take 150 mg by mouth once daily. - albuterol HFA (PROVENTIL HFA, VENTOLIN HFA) 90 mcg/actuation inhaler - spironolactone (ALDACTONE) 25 mg tablet Take 17.5 mg by mouth once daily. - ASPIRIN ORAL Take 81 mg by mouth once daily. - oxaprozin (DAYPRO) 600 mg tablet Take 1,200 mg by mouth once daily. - tamsulosin (FLOMAX) 0.4 mg Take 0.4 mg by mouth once daily. - atorvastatin (LIPITOR) 40 mg tablet Take 40 mg by mouth once daily. - gabapentin (NEURONTIN) 300 mg capsule Take 3 capsules by mouth three times daily for 30 days. - leflunomide (ARAVA) 20 mg tablet Take 20 mg by mouth once daily. - methotrexate 2.5 mg tablet Take 12.5 mg by mouth one time a week. - folic acid 1 mg tablet Take 1 mg by mouth once daily. - omeprazole (PRILOSEC) 20 mg capsule Take 20 mg by mouth once daily. - DULoxetine (CYMBALTA) 60 mg capsule Take 60 mg by mouth twice daily. Facility-Administered Medications as of 10/23/2022 - perflutren lipid microspheres 1.3 mL in NaCl (PF) 0.9% 10 mL injection (DEFINITY) - sodium chloride 0.9 % (flush) 10 mL (BD POSIFLUSH) Problem List As Of Date 10/12/2022 Noted Resolved Ankylosing spondylitis (HCC) [M45.9] Esophageal reflux [K21.9] Arthritis [M19.90] Kidney stones [N20.0] Back pain [M54.9] Pneumonia [J18.9] 12/15/2016 Former smoker [Z87.891] Labral tear of hip, degenerative [M24.159] 07/19/2015 Bilateral low back pain without sciatica [M54.5*07/19/2015 Pain in right hip [M25.551] 07/19/2015 Flat back syndrome [M40.30] 07/19/2015 S/P lumbar laminectomy [Z98.890] 07/19/2015 Primary osteoarthritis of right hip [M16.11] 12/01/2015 Right lumbar radiculitis [M54.16] 06/13/2016 Morbid obesity with BMI of 40.0-44.9, adult (HC* Obstructive sleep apnea syndrome, severe [G47.3* Major depressive disorder with single episode, *08/24/2016 Cerebrovascular small vessel disease [I67.9] 08/24/2016 Wound infection after surgery [T81.49XA] 09/12/2016 Wound infection [T14.8XXA, L08.9] 09/12/2016 Elevated troponin level [R77.8] 09/17/2016 Patricia infection [B37.9] 09/22/2016 C. difficile colitis [A04.72] 09/22/2016 Wound drainage [L24.A9] 09/23/2016 10/30/2016 Acute deep vein thrombosis (DVT) of femoral vei*10/15/2016 Infection [B99.9] 09/23/2016 Anticoagulation management encounter [Z51.81, Z*10/27/2016 10/30/2016 TIFFANIE (acute kidney injury) (HCC) [N17.9] 12/09/2016 12/15/2016 Pneumonia of left lower lobe due to infectious *02/05/2017 Sinus tachycardia [R00.0] 02/05/2017 Encounter Status:Closed by SHELIA WOODS on 10/23/22 Normal [facility] 10-06-2022 Alpha tocopherol [Mass/Vol] 6.6 mg/L Normal 6.0-23.0 [facility] Comment on above: Order Comment: Speci men Type: BLOOD SPECIMEN Ordering Facility: [facility] Address: [address] [place], [place] [phone] Performed By: #### 2 284-8, 2132-9 #### [facility] CLIA [id number] [address] [place] [address] [place] [address] [place] Alpha tocopherol [Mass/Vol]o n 10-06-2022 Beta+gamma tocopherol [Mass/Vol] 1.0 mg/L Normal 0.3-3.2 [facility] Comment on above: Order Comment: Speci men Type: BLOOD SPECIMEN Ordering Facility: [facility] Address: [address] [place] [address] Result Comment: This test was developed and its performance characteristics determined by [facility]'s Elena Velasquez [facility] [place] ([facility]). It has not been cleared or approved by the FDA. [facility] is regulated under CLIA as qualified to perform high-complexity testing. This test is used for clinical purposes. It should not be regarded as investigational or for research. Performed By: #### 2 284-8, 2132-9 #### [facility] CLIA [id number] [address] [facility] [id number] [place] [address] [place] PER CBC panel Auto (Bld)on 10-06 Erythrocyte distribution width (RBC) [Ratio] 16.0 % High 11.5 - 15.0 % [facility] Hematocrit (Bld) [Volume fraction] 40.1 % 39.0 - 51.0 % [facility] Hemoglobin (Bld) [Mass/Vol] 12.3 g/dL Low 13.0 - 17.0 g/dL [facility] MCH (RBC) [Entitic mass] 31.6 pg 26.0 - 34.0 pg [facility] MCHC (RBC) [Mass/Vol] 30.7 g/dL 30.5 - 36.0 g/dL [facility] MCV (RBC) [Entitic vol] 103.1 fL High 80.0 - 100.0 fL [facility] Nucleated RBC (Bld) [#/Vol] <0.01 k/uL [facility] Platelet mean volume (Bld) [Entitic vol] 10.2 fL 9.0 - 12.7 fL [facility] Platelets (Bld) [#/Vol] 286 10*3/uL 150 - 400 k/uL [facility] RBC (Bld) [#/Vol] 3.89 10*6/uL Low 4.20 - 6.00 m/uL [facility] WBC (Bld) [#/Vol] 7.15 10*3/uL 3.70 - 11.00 k/uL [facility] Erythrocyte distribution width (RBC) [Ratio] 16.0 % High 11.5-15.0 [facility] Comment on above: Order Comment: Speci men Type: BLOOD SPECIMEN Ordering Facility: [facility] Address: [address] [place], [place] [address] Performed By: #### 2 284-8, 2131-12 #### [facility] CLIA [id number] [facility] [place] [address] [place] Hematocrit (Bld) [Volume fraction] 40.1 % Normal 39.0-51.0 [facility] Comment on above: Order Comment: Speci men Type: BLOOD SPECIMEN Ordering Facility: [facility] Address: [address] [place] [address] Performed By: #### 2 284-8, 2131-12 #### [facility] CLIA [id number] [address] [place] [address] [place] Hemoglobin (Bld) [Mass/Vol] 12.3 g/dL Low 13.0-17.0 [facility] Comment on above: Order Comment: Speci men Type: BLOOD SPECIMEN Ordering Facility: [facility] Address: [address] [place], [place] [address] Performed By: #### 2 284-8, 2131-12 #### [facility] CLIA [id number] [address] [place] [address] [place] MCH (RBC) [Entitic mass] 31.6 pg Normal 26.0-34.0 [facility] Comment on above: Order Comment: Speci men Type: BLOOD SPECIMEN Ordering Facility: [facility] Address: [address] [place], [place] [address] Performed By: #### 2 284-8, 2131-12 #### [facility] CLIA [id number] [address] [id number] [address] [place] MCHC (RBC) [Mass/Vol] 30.7 g/dL Normal 30.5-36.0 [facility] Comment on above: Order Comment: Speci men Type: BLOOD SPECIMEN Ordering Facility: [facility] Address: [address] [place] [phone] Performed By: #### 2 284-8, 2131-12 #### [facility] CLIA [id number] [address] [place] [address] [place] MCV (RBC) [Entitic vol] 103.1 fL High 80.0-100.0 [facility] Comment on above: Order Comment: Speci men Type: BLOOD SPECIMEN Ordering Facility: [facility] Address: [address] [place] [address] Performed By: #### 2 284-8, 2131-12 #### [facility] CLIA [id number] [address] [place] [address] [place] Nucleated RBC (Bld) [#/Vol] 10*3/uL Normal <0.01 [facility] Comment on above: Order Comment: Speci men Type: BLOOD SPECIMEN Ordering Facility: [facility] Address: [address] [place] [phone] Performed By: #### 2 284-8, 2131-12 #### [facility] CLIA [id number] [address] [place] [address] [place] Platelet mean volume (Bld) [Entitic vol] 10.2 fL Normal 9.0-12.7 [facility] Comment on above: Order Comment: Speci men Type: BLOOD SPECIMEN Ordering Facility: [facility] Address: [address] [place] [phone] Performed By: #### 2 284-8, 2131-12 #### [facility] CLIA [id number] [address] [place] [address] [place] Platelets (Bld) [#/Vol] 286 10*3/uL Normal 150-400 [facility] Comment on above: Order Comment: Speci men Type: BLOOD SPECIMEN Ordering Facility: [facility] Address: [address] [phone] Performed By: #### 2 284-8, 2131-12 #### [facility] CLIA [id number] [address] [place] [address] [place] RBC (Bld) [#/Vol] 3.89 10*6/uL Low 4.20-6.00 [facility] Comment on above: Order Comment: Speci men Type: BLOOD SPECIMEN Ordering Facility: [facility] Address: [address] [address] Performed By: #### 2 284-8, 2131-12 #### [facility] CLIA [id number] [address] [place] [address] [place] WBC (Bld) [#/Vol] 7.15 10*3/uL Normal 3.70-11.00 [facility] Comment on above: Order Comment: Speci men Type: BLOOD SPECIMEN Ordering Facility: [facility] Address: [address] [address] Performed By: #### 2 284-8, 2131-12 #### [facility] CLIA [id number] [address] [place] [address] [place] CERULOPLASMIN Talat 10-07-19 23 Ceruloplasmin [Mass/Vol] 30 mg/dL 15 - 30 mg/dL [facility] CNOVon 10-06-2022 CNOV Office Visit (NEADMN ) ELENA FELIX ([id number]) 1960 [place] Date Time Provider Department 10/06/22 9:00 AM ANNA NORTH During your visit today, we recorded the following information about you: Pulse Blood pressure Weight Height 83/minute 106/59 131.5 kg 1.88 m Anna North APRN.ROLLER CHECKER 10/06/2022 10:14 AM Signed [facility] New Patient Evaluation Chief Complaint/Issues: Elena Felix is a 62 year old right-handed male seen in the [facility] for: New patient Orthostatic lightheadedness HPI: Consult placed by cardiology, Dr. Howard, 08/16/2022: Starting in 2019 post-op, began experiencing palpitations and tachycardia, reportedly in AF, thought to be just post-op. Continued to have palpitations and associated dyspnea. Symptoms progressed with more exertional dyspnea and decline in functional status. Echo showed EF as low as 25% in 2021, globally down LV. LHC with non-obst CAD and RHC with normal R sided pressures 06/2021. Continues to have exertional dyspnea, orthostatic lightheadedness/pre-syncope occurring every day. Tilt table test 07/2022 diagnosed ?POTS. Has been on midodrine and recently started pyroidostigmine last week. Doing cardiac rehab. Latest echo is up to EF 60%, abnormal septal motion. Follows with pulm, may have some obstructive and restrictive lung disease (?from , from methotrexate). Quit smoking 20 years ago. 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 Today we discuss his symptoms: Accompanied by , Maircel, who contributes to the history. Ganesh has ankylosing spondylitis, diagnosed at age 19. He has had multiple back and hip surgeries. His growth hacker is locally in [place]. He had surgery in 2019, had a severe wound infection, complicated E. Coli infection, C diff, was hospitalized for 9 weeks. He had blood clots in the legs and atrial fibrillation (which was new for him). He had prolonged rehab stay. He has neuropathy in the legs.He states it was in the feet prior to surgery, and has worsened severely (up to knees) after surgery in 2019. He has seen neurologists along the way, but none recently. Since that time, he has developed GI and heart issues. He sees cardiology in [facility]. He had a heart cath and showed he had low ejection fraction. He has had tilt table done (see below). He was diagnosed with orthostatic hypotension. He has been on midodrine and pyridostigmine. He had bad diarrhea with pyridostigmine. He also had diarrhea on the midodrine. He stopped these, and felt better. He felt these did not help him with his symptoms. He does have some radicular symptoms. When he turns the neck to the L he gets some numbness in the arm. He has done PT in the past and sees his growth hacker for the neck. [facility] PAST MEDICAL HISTORY Diagnosis Date Ankylosing spondylitis ([facility]) Dr Hodges Ankylosing spondylitis ([facility]) Arthritis Back pain Cardiomyopathy ([facility]) Nonischemic Congestive Cerebrovascular small vessel disease 08/24/2016 On ASA DVT (deep venous thrombosis) ([facility]) Esophageal reflux Former smoker Kidney stones Major depressive disorder with single episode, in remission ([facility]) 08/24/2016 Morbid obesity with BMI of 40.0-44.9, adult ([facility]) Neuropathy Obstructive sleep apnea syndrome, severe On auto-CPAP - sleep study done on 07/10/16 Pneumonia PAST SURGICAL HISTORY Procedure Laterality Date BACK SURGERY HX 2013 BACK SURGERY HX 2015 MIDLINE INSERTION/CONSULT 09/05/2016 NOSE SURGERY HX sinus surg Dr Rojo PAST SURGICAL HISTORY OF 1986 R hand surgery PAST SURGICAL HISTORY OF 2001 R finger surgery PICC LINE INSERT/CONSULT 09/16/2016 TOTAL HIP JOINT REPLACEMENT Right ALLERGIES Allergen Reactions Morphine Intolerance Patient thinks that with previous surgery he had a mental psychotic reaction with the combination of Lyrica and Morphine. Lisinopril Unknown Losartan Unknown Social History Tobacco Use Smoking status: Former Packs/day: 2.00 Years: 21.00 Pack years: 42.00 Types: Cigarettes Passive exposure: Past Smokeless tobacco: Never Tobacco comments: quit 1997 Substance Use Topics Alcohol use: No Drug use: No FAMILY HISTORY Problem Relation Age of Onset Breast Cancer Mother Stroke Mother other (Migraine) Mother may have had migraine HAs Emphysema Father Stroke Father Arthritis Father other (Negative) Father multiple sclerosis ROS Review of Systems See below. Autonomic Screening Do you become dizzy or lightheaded with standing? yes sometimes and shortness of breath Do you notice your heart racing (tachycardia) with postural change? no Do you have syncope? no In the past month, did you have any falls? no How long can you stand (in minutes) before becoming symptomatic? yes 10-15 seconds (more content not included)... Normal [facility] COPPER BLOODon 10-06-2022 Copper [Mass/Vol] 127 ug/dL Normal 70-140 [facility] Comment on above: Order Comment: Jimena wallace Type: BLOOD SPECIMEN Ordering Facility: [facility] Address: [address] [place] [phone] Result Comment: This test was developed and its performance characteristics determined by [facility] [place] ([facility]). It has not been cleared or approved by the FDA. [facility] is regulated under CLIA as qualified to perform high-complexity testing. This test is used for clinical purposes. It should not be regarded as investigational or for research. Performed By: #### 2 284-8, 2132-9 #### [facility] CLIA [id number] [address] [place] [address] OF PER Ceruloplasmin SerPl-mCncon 0 10-06-2022 Ceruloplasmin [Mass/Vol] 30 mg/dL Normal 15-30 [facility] Comment on above: Order Comment: Jimena wallace Type: BLOOD SPECIMEN Ordering Facility: [facility] Address: [address] [place] [phone] Performed By: #### 2 4323-8, 2064-4, 2276-4, 3016-3 #### [facility] CLIA [id number] [address] [place] [address] [place] Comprehensive metabolic 2000 panelon 10-06-2022 Albumin [Mass/Vol] 3.6 g/dL Low 3.9 - 4.9 g/dL [facility] ALP [Catalytic activity/Vol] 72 U/L 38 - 113 U/L [facility] ALT [Catalytic activity/Vol] 17 U/L 10 - 54 U/L [facility] Anion gap [Moles/Vol] 9 mmol/L 9 - 18 mmol/L [facility] AST [Catalytic activity/Vol] 21 U/L 14 - 40 U/L [facility] Bilirubin [Mass/Vol] 0.2 mg/dL 0.2 - 1 .3 mg/dL [facility] Calcium [Mass/Vol] 9.5 mg/dL 8.5 - 10. 2 mg/dL [facility] Chloride [Moles/Vol] 108 mmol/L High 97 - 10 5 mmol/L [facility] CO2 [Moles/Vol] 25 mmol/L 22 - 30 mmol/L [facility] Creatinine [Mass/Vol] 1.43 mg/dL High 0.73 - 1.22 mg/dL [facility] Estimated Glomerular Filtration Rate 55 mL/min/1.73m Low >=60 mL/min/1.7 3m [facility] Glucose [Mass/Vol] 100 mg/dL High 74 - 99 mg/dL [facility] Potassium [Moles/Vol] 5.4 mmol/L High 3.7 - 5.1 mmol/L [facility] Protein [Mass/Vol] 6.7 g/dL 6.3 - 8.0 g/dL [facility] Sodium [Moles/Vol] 142 mmol/L 136 - 144 mmol/L [facility] Urea nitrogen [Mass/Vol] 24 mg/dL 9 - 24 mg/dL [facility] Albumin [Mass/Vol] 3.6 g/dL Low 3.9-4.9 [facility] Comment on above: Order Comment: Speci men Type: BLOOD SPECIMEN Ordering Facility: [facility] Address: [address] [place] [address] Performed By: #### 2 4323-8, 2063-4, 2275-4, 3016-3 #### [facility] CLIA [id number] [address] [place] [address] ALP [Catalytic activity/Vol] 72 U/L Normal 38-113 [facility] Comment on above: Order Comment: Speci men Type: BLOOD SPECIMEN Ordering Facility: [facility] Address: [address] [place] [address] Performed By: #### 2 4323-8, 2063-4, 6-4, 3016-3 #### [facility] CLIA [id number] [address] [id number], [place] [address] [place] ALT [Catalytic activity/Vol] 17 U/L Normal 10-54 [facility] Comment on above: Order Comment: Speci men Type: BLOOD SPECIMEN Ordering Facility: [facility] Address: [address] [place], [place] [phone] Performed By: #### 2 4323-8, 2063-4, 6-4, 3016-3 #### [facility] CLIA [id number] [address] [place] [address] [place] Anion gap [Moles/Vol] 9 mmol/L Normal 9-18 [facility] Comment on above: Order Comment: Speci men Type: BLOOD SPECIMEN Ordering Facility: [facility] Address: [address] [place] [address] Performed By: #### 2 4323-8, 2063-4, 2275-4, 3016-3 #### [facility] CLIA [id number] [address] [place] [address] STATES OF PER AST [Catalytic activity/Vol] 21 U/L Normal 14-40 [facility] Comment on above: Order Comment: Speci men Type: BLOOD SPECIMEN Ordering Facility: [facility] Address: [address] [place] [address] Performed By: #### 2 4323-8, 2063-4, 2275-4, 3016-3 #### [facility] CLIA [id number] [address] [place] [address] [place] Bilirubin [Mass/Vol] 0.2 mg/dL Normal 0.2-1.3 [facility] Comment on above: Order Comment: Speci men Type: BLOOD SPECIMEN Ordering Facility: [facility] Address: [address] [place], [place] [phone] Performed By: #### 2 4323-8, 2063-4, 2275-4, 3016-3 #### [facility] CLIA [id number] [address] [place] [address] [place] Calcium [Mass/Vol] 9.5 mg/dL Normal 8.5-10.2 [facility] Comment on above: Order Comment: Speci men Type: BLOOD SPECIMEN Ordering Facility: [facility] Address: [address] [place] [address] Performed By: #### 2 4323-8, 4-4, 6-4, 3016-3 #### [facility] CLIA [id number] [address] [place] [address] [place] Chloride [Moles/Vol] 108 mmol/L High 97-105 [facility] Comment on above: Order Comment: Speci men Type: BLOOD SPECIMEN Ordering Facility: [facility] Address: [address] [place] [address] Performed By: #### 2 4323-8, 2063-4, 6-4, 3016-3 #### [facility] CLIA [id number] [address] [place] [address] [place] CO2 [Moles/Vol] 25 mmol/L Normal 22-30 [facility] Comment on above: Order Comment: Speci men Type: BLOOD SPECIMEN Ordering Facility: [facility] Address: [address] [place] [address] Performed By: #### 2 4323-8, 2063-4, 6-4, 3016-3 #### [facility] CLIA [id number] [address] [place] [address] [place] Creatinine [Mass/Vol] 1.43 mg/dL High 0.73-1.22 [facility] Comment on above: Order Comment: Speci men Type: BLOOD SPECIMEN Ordering Facility: [facility] Address: [address] [place] [address] Performed By: #### 2 4323-8, 2063-4, 6-4, 3016-3 #### [facility] CLIA [id number] [address] [place] [id number] [address] [place] ESTIMATED GLOMERULAR FILTRATION RATE 55 mL/min/1.73m??? Low >=60 [facility] Comment on above: Order Comment: Jimena wallace Type: BLOOD SPECIMEN Ordering Facility: [facility] Address: [address] [place], [place] [phone] Result Comment: Aneta mated Glomerular Filtration Rate (eGFR) is calculated using the 2020 CKD-EPI creatinine equation. This equation utilizes serum creatinine, sex, and age as parameters. The creatinine assay has traceable calibration to isotope dilution-mass spectrometry. Refer to KDIGO guidelines for clinical interpretation. In patients with unstable renal function, e.g. those with acute kidney injury, the eGFR may not accurately reflect actual GFR. Performed By: #### 2 4323-8, 2063-, 2275-4, 6-3 #### [facility] CLIA [id number] [address] [place] [id number] [place] Glucose [Mass/Vol] 100 mg/dL High 74-99 [facility] Comment on above: Order Comment: Jimena wallace Type: BLOOD SPECIMEN Ordering Facility: [facility] Address: [address] [place], [place] [phone] Result Comment: The [place] Diabetes Association (ADA) provides guidance for cutoff values for fasting glucose and random glucose. The ADA defines fasting as no caloric intake for at least 8 hours. Fasting plasma glucose results between 100 to 125 mg/dL indicate increased risk for diabetes (prediabetes). Fasting plasma glucose results greater than or equal to 126 mg/dL meet the criteria for diagnosis of diabetes. In the absence of unequivocal hyperglycemia, results should be confirmed by repeat testing. In a patient with classic symptoms of hyperglycemia or hyperglycemic crisis, random plasma glucose results greater than or equal to 200 mg/dL meet the criteria for diagnosis of diabetes. Reference: Standards of Medical Care in Diabetes 2016, [place] Diabetes Association. Diabetes Care. 2016.39(Suppl 1). Performed By: #### 2 4323-8, 2063-4, 2275-4, 6-3 #### [facility] CLIA [id number] [address] [place] [place] [id number] [place] Potassium [Moles/Vol] 5.4 mmol/L High 3.7-5.1 [facility] Comment on above: Order Comment: Speci men Type: BLOOD SPECIMEN Ordering Facility: [facility] Address: [address] [place] [address] Performed By: #### 2 4323-8, 4-4, 6-4, 3016-3 #### [facility] CLIA [id number] [address] [place] [address] [place] Protein [Mass/Vol] 6.7 g/dL Normal 6.3-8.0 [facility] Comment on above: Order Comment: Speci men Type: BLOOD SPECIMEN Ordering Facility: [facility] Address: [address] [place] [address] Performed By: #### 2 4323-8, 2063-4, 2275-4, 6-3 #### [facility] CLIA [id number] [address] [place] [address] [place] Sodium [Moles/Vol] 142 mmol/L Normal 136-144 [facility] Comment on above: Order Comment: Speci men Type: BLOOD SPECIMEN Ordering Facility: [facility] Address: [address] [place] [address] Performed By: #### 2 4323-8, 2063-4, 2275-4, 6-3 #### [facility] CLIA [id number] [address] [place] [address] [place] Urea nitrogen [Mass/Vol] 24 mg/dL Normal 9-24 [facility] Comment on above: Order Comment: Speci men Type: BLOOD SPECIMEN Ordering Facility: [facility] Address: [address] [place] [address] Performed By: #### 2 4323-8, 2063-4, 6-4, 3016-3 #### [facility] CLIA [id number] [address] [place], [place] [id number] [place] FERRITIN BLDon 10-06-2022 Ferritin [Mass/Vol] 143.0 ng/mL 30.3 - 565.7 ng/mL [facility] FOLATE SERUMon 10-06-2022 Folate [Mass/Vol] 8.8 ng/mL >4.7 ng/mL [facility] Ferritin SerPl-mCncon 2022 Ferritin [Mass/Vol] 143.0 ng/mL Normal 30.3-565.7 [facility] Comment on above: Order Comment: Speci men Type: BLOOD SPECIMEN Ordering Facility: [facility] Address: [address] [place], [place] [phone] Performed By: #### 2 4323-8, 2063-4, 6-4, 3016-3 #### [facility] CLIA [id number] [address] [place] [address] STATES OF PER Folate SerPl-mCncon 10-07-19 Folate [Mass/Vol] 8.8 ng/mL Normal >4.7 [facility] Comment on above: Order Comment: Speci men Type: BLOOD SPECIMEN Ordering Facility: [facility] Address: [address] [place] [address] Performed By: #### 2 284-8, 2132-9 #### [facility] CLIA [id number] [address] [place] [address] [place] HOMOCYSTEINEon 10-06-2022 Homocysteine [Moles/Vol] 14.7 umol/L <15.1 umol/L [facility] HbA1c (Bld)on 10-06-2022 Average glucose Estimated from glycated hemoglobin (Bld) [Mass/Vol] 94 mg/dL Normal [facility] Comment on above: Order Comment: Vii men Type: BLOOD SPECIMEN Ordering Facility: [facility] Address: [address] [place], [place] [phone] Result Comment: eAG: (Estimated average glucose) is a calculated value from HgbA1c and is correspondence representative of the average blood glucose level in the last 2-3 month period. Performed By: #### 2 3-8, , 2275-4, 6-3 #### [facility] CLIA [id number] [address] [place] [address] [place] HbA1c (Bld) [Mass fraction] 4.9 % Normal 4.3-5.6 [facility] Comment on above: Order Comment: Speci men Type: BLOOD SPECIMEN Ordering Facility: [facility] Address: [address] [place], [place] [phone] Result Comment: [place] Diabetes Association guidelines indicate that patients with HgbA1c in the range 5.7-6.4% are at increased risk for development of diabetes, and intervention by lifestyle modification may be beneficial. HgbA1c greater or equal to 6.5% is considered diagnostic of diabetes. Performed By: #### 2 4322-8, 2063-07, 2275-4, 6-3 #### [facility] CLIA [id number] [address] [place] [address] [place] Hcys SerPl-sCncon 10-06-2022 Homocysteine [Moles/Vol] 14.7 umol/L Normal <15.1 [facility] Comment on above: Order Comment: Speci men Type: BLOOD SPECIMEN Ordering Facility: [facility] Address: [address] [place], [place] [phone] Performed By: #### 2 432-8, 2063-07, 2275-4, 6-3 #### [facility] CLIA [id number] [address] [place] [address] [place] IMMUNOFIXATION SCREEN, SERUM on 10-06-2022 MPA RESULT No M protein is identified. Normal No M protein is identified . [facility] Comment on above: Order Comment: Speci men Type: BLOOD SPECIMEN Ordering Facility: [facility] Address: [address] [place], [place] [phone] Performed By: #### 2 4323-8, 2063-07, 2275-4, 6-3 #### [facility] CLIA [id number] [address] [place] [address] STATES OF PER STAFF REVIEW (MPA) Reviewed by Dr. Sadie Tam MD Normal [facility] Comment on above: Order Comment: Speci men Type: BLOOD SPECIMEN Ordering Facility: [facility] Address: [address] [place] [address] Performed By: #### 2 4323-8, 2063-4, 2275-4, 6-3 #### [facility] CLIA [id number] [address] [place] [address] [place] KAPPA/KEANE,FREE,SERon 2022 Immunoglobulin light chains.kappa.free (S) [Mass/Vol] 36.7 mg/L High 3.3-19.4 [facility] Comment on above: Order Comment: Speci men Type: BLOOD SPECIMEN Ordering Facility: [facility] Address: [address] [place] [address] Result Comment: Rare ly, increased serum free light chains levels may not be detected or accurately quantified due to prozone phenomenon or in high viscosity samples using this immunoturbidimetric assay. Correlation with other laboratory results and clinical findings is recommended. The [place] Free Light Chain was performed using the Binding Site Optilite immunoturbidimetric method. Result obtained with different assay methods or kits cannot be used interchangeably. Performed By: #### 2 4323-8, 4, 4, 3015-3 #### [facility] CLIA [id number] [address] [place] [address] [place] Immunoglobulin light chains.kappa/Immunoglo bulin light chains.lambda (S) [Mass ratio] 2.53 High 0.26-1.65 [facility] Comment on above: Order Comment: Speci men Type: BLOOD SPECIMEN Ordering Facility: [facility] Address: [address] [place] [address] Performed By: #### 2 4323-8, 2063-4, 2275-4, 3015-3 #### [facility] CLIA [id number] [address] [place] [address] [place] Immunoglobulin light chains.lambda.free [Mass/Vol] 14.5 mg/L Normal 5.7-26.3 [facility] Comment on above: Order Comment: Speci men Type: BLOOD SPECIMEN Ordering Facility: [facility] Address: [address] [place] [address] Result Comment: Rare ly, increased serum free light chains levels may not be detected or accurately quantified due to prozone phenomenon or in high viscosity samples using this immunoturbidimetric assay. Correlation with other laboratory results and clinical findings is recommended. The [place] Free Light Chain was performed using the Binding Site Optilite immunoturbidimetric method. Result obtained with different assay methods or kits cannot be used interchangeably. Performed By: #### 2 4323-8, 2063-4, 2275-4, 6-3 #### [facility] IA [id number] [address] [place] [address] [place] TSH BLDon 10-06-2022 TSH Qn 2.100 m[IU]/L 0.270 - 4.200 mIU/L [facility] TSH SerPl-aCncon 10-06-2022 TSH Qn 2.100 m[IU]/L Normal 0.270-4.20 0 [facility] Comment on above: Order Comment: Speci men Type: BLOOD SPECIMEN Ordering Facility: [facility] Address: [address] [place] [address] Performed By: #### 2 4323-8, 2063-07, 4, 3016-3 #### [facility] [place] [id number] [address] [place] [address] [place] VITAMIN B1 (THIAMINE), WHOLE BLOODon 10-06-2022 Thiamine (Bld) [Moles/Vol] 154.8 nmol/L Normal 84.3-213.3 [facility] Comment on above: Order Comment: Speci men Type: BLOOD SPECIMEN Ordering Facility: [facility] Address: [address] [place], [place] [phone] Result Comment: This assay measures the concentration of thiamine diphosphate (TDP), the primary active form of vitamin B1. Approximately 90 percent of vitamin B1 present in whole blood is TDP. Thiamine and thiamine monophosphate, which comprise the remaining 10 percent, are not measured. This test was developed and its performance characteristics determined by [facility] [place] ([facility]). It has not been cleared or approved by the FDA. [facility] is regulated under CLIA as qualified to perform high-complexity testing. This test is used for clinical purposes. It should not be regarded as investigational or for research. Performed By: #### 2 4323-8, 2063-4, 2275-4, 6-3 #### [facility] CLIA [id number] [address] [place], [place] [id number] [place] [facility] VITAMIN B12 BLOODon 10-07-19 Cobalamin (Vitamin B12) [Mass/Vol] 355 pg/mL 232 - 1,245 pg/mL [facility] VITAMIN B6/PYRIDOXINon 10-06 VITAMIN B6 9.7 nmol/L Low 20.0-125.0 [facility] Comment on above: Order Comment: Speci men Type: BLOOD SPECIMEN Ordering Facility: [facility] Address: [address] [place] [address] Result Comment: INTE RPRETIVE INFORMATION: Vitamin B6 (Pyridoxal 5-Phosphate) Pyridoxal 5'-phosphate measured in a specimen collected following an 8-hour or overnight fast accurately indicates vitamin B6 nutritional status. Non-fasting specimen concentration reflects recent vitamin intake. This test was developed and its performance characteristics determined by [facility]. It has not been cleared or approved by the US Food and Drug Administration. This test was performed in a CLIA certified laboratory and is intended for clinical purposes. Performed By: [facility] [address] [place] [address] Social Work Administrator: Kevan Vu MD, PhD Performed By: #### 2 4323-8, 2063-4, 2275-4, 6-3 #### [facility] CLIA [id number] [facility] [address] [address] [place] Vit B12 SerPl-mCncon 023 Cobalamin (Vitamin B12) [Mass/Vol] 355 pg/mL Normal 232-1245 [facility] Comment on above: Order Comment: Speci men Type: BLOOD SPECIMEN Ordering Facility: [facility] Address: [address] [place] [address] Performed By: #### 2 284-8, 2131-12 #### [facility] CLIA [id number] [address] [place] [address] Zinc SerPl-ncon 10-06-2022 Zinc [Mass/Vol] 36 ug/dL Low 60-120 [facility] Comment on above: Order Comment: Speci men Type: BLOOD SPECIMEN Ordering Facility: [facility] Address: [address] [place] [address] Result Comment: This test was developed and its performance characteristics determined by [facility] [place] ([facility]). It has not been cleared or approved by the FDA. [facility] is regulated under CLIA as qualified to perform high-complexity testing. This test is used for clinical purposes. It should not be regarded as investigational or for research. Performed By: #### 2 284-8, 2131-12 #### [facility] CLIA [id number] [address] [place] [address] [place] NM LUNG VENT / PERF VQon NM LUNG VENT / PERF VQ * * *Final Report * * * DATE OF EXAM: Oct 04 2022 10:53AM N 0032 - NM LUNG VENT / PERF VQ / PROCEDURE REASON: multiple diagnoses * * * * Physician Interpretation * * * * LUNG SCAN CLINICAL HISTORY: Assess for pulmonary embolism. Dyspnea. Pulmonary hypertension. TECHNIQUE: 0.8 mCi Tc 99m DTPA aerosol inhaled 5 mCi Tc 99m MAA IV RESULTS: Ventilation Images: Heterogeneous tracer distribution in the bilateral lung, central airway tracer deposition. Perfusion Images: Heterogeneous tracer distribution in the bilateral lung. Matched ventilation/perfusion abnormalities: There are matched defects in both lungs. Mismatched perfusion defects: none. IMPRESSION: THE STUDY IS MOST CONSISTENT WITH A LOW PROBABILITY OF PULMONARY EMBOLISM. 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 Telemedicineon 10-03-2022 Telemedicine [id number] Miguel Felix 1960 M Date Provider Department Center 10/03/2022 JeanaCARALFREDO LOPEZ [facility] CARD [facility] Family History Problem Relation Age of Onset No Known Problems Mother No Known Problems Father Family Status - Relation Status Age at Mother Father Level of Service:35480 [place] OFFICE/OUTPATIENT ESTABLISHED LOW MDM 20-29 MIN Reason for Visit and Comments: Telehealth Phone Visit [872] Normal [facility] ECHOon 09-13-2022 [facility] LVEF ECHOon 09-13-2022 LV Ejection Fraction 51 % Abnormal <52 % [facility] CBC AUTO DIFFon 09-06-2022 BASO # 0.1 103/ul Normal 0.0-0.1 [facility] Comment on above: Performed By: #### C MADM, BNP, BMP #### [facility] [address] [place] [address] Dr. Risa Patterson Basophils/100 WBC (Bld) 1.1 % Normal 0.2-2.0 [facility] Comment on above: Performed By: #### C MADM, BNP, BMP #### [facility] [address] [place] [address] Dr. Risa Patterson EO # 0.3 103/ul Normal 0.0-0.7 [facility] Comment on above: Performed By: #### C MADM, BNP, BMP #### [facility] [address] [place] [address] Dr. Risa Patterson Eosinophils/100 WBC (Bld) 5.9 % Normal 0.9-7.0 [facility] Comment on above: Performed By: #### C MADM, BNP, BMP #### [facility] [address] [place] [address] Dr. Risa Patterson Erythrocyte distribution width (RBC) [Ratio] 15.1 % Critically high 11.0-15.0 [facility] Comment on above: Performed By: #### C MADM, BNP, BMP #### [facility] [address] [place] [address] Dr. Risa Patterson Hematocrit (Bld) [Volume fraction] 36.6 % Critically low 42.0-54.0 [facility] Comment on above: Performed By: #### C MADM, BNP, BMP #### [facility] [address] [place] [address] Dr. Risa Patterson Hemoglobin (Bld) [Mass/Vol] 11.4 g/dL Critically low 14.0-18.0 [facility] Comment on above: Performed By: #### C MADM, BNP, BMP #### [facility] [address] [place] [address] Dr. Risa Patterson IG # 0.02 10e3/ul Normal 0.00-0.03 [facility] Comment on above: Performed By: #### C MADM, BNP, BMP #### [facility] [address] [place] [address] Dr. Risa Patterson IG % 0.4 % Normal 0.0-0.5 [facility] Comment on above: Performed By: #### C MADM, BNP, BMP #### [facility] [address] [place] [address] Dr. Risa Patterson LYMPH # 0.9 103/ul Critically low 1.2-3.8 [facility] Comment on above: Performed By: #### C MADM, BNP, BMP #### [facility] [address] [place] [address] Dr. Risa Patterson Lymphocytes/100 WBC (Bld) 20.4 % Critically low 20.5-60.0 [facility] Comment on above: Performed By: #### C MADM, BNP, BMP #### [facility] [address] [place] [address] Dr. Risa Patterson MANUAL DIFF REQ NO Normal [facility] Comment on above: Performed By: #### C MADM, BNP, BMP #### [facility] [address] [place] [address] Dr. Risa Patterson MCH (RBC) [Entitic mass] 31.1 pg Normal 25.9-34.0 [facility] Comment on above: Performed By: #### C MADM, BNP, BMP #### [facility] [address] [place] [address] Dr. Risa Patterson MCHC (RBC) [Mass/Vol] 31.1 g/dL Normal 29.9-35.2 [facility] Comment on above: Performed By: #### C MADM, BNP, BMP #### [facility] [address] [place] [address] Dr. Risa Patterson MCV (RBC) [Entitic vol] 100.0 fL Critically high 80.0-94.0 [facility] Comment on above: Performed By: #### C MADM, BNP, BMP #### [facility] [address] [place] [address] Dr. Risa Patterson MONO # 0.3 103/ul Normal 0.3-0.8 [facility] Comment on above: Performed By: #### C MADM, BNP, BMP #### [facility] [address] [place] [address] Dr. Risa Patterson Monocytes/100 WBC (Bld) 6.6 % Normal 1.7-12.0 [facility] Comment on above: Performed By: #### C MADM, BNP, BMP #### [facility] [address] [place] [address] Dr. Risa Patterson NEUT # 3.0 103/ul Normal 1.4-6.5 [facility] Comment on above: Performed By: #### C MADM, BNP, BMP #### [facility] [address] [place] [address] Dr. Risa Patterson Neutrophils/100 WBC (Bld) 65.6 % Normal 43.0-75.0 [facility] Comment on above: Performed By: #### C MADM, BNP, BMP #### [facility] [address] [place] [address] Dr. Risa Patterson Platelet mean volume (Bld) [Entitic vol] 9.1 fL Critically low 9.5-13.5 [facility] Comment on above: Performed By: #### C MADM, BNP, BMP #### [facility] [address] [place] [address] Dr. Risa Patterson PLT 286 103/ul Normal 150-450 [facility] Comment on above: Performed By: #### C MADM, BNP, BMP #### [facility] [address] [place] [address] Dr. Risa Patterson RBC 3.66 106/ul Critically low 4.70-6.10 [facility] Comment on above: Performed By: #### C MADM, BNP, BMP #### [facility] [address] [place] [address] Dr. Risa Patterson WBC 4.6 103/ul Normal 4.0-11.0 [facility] Comment on above: Performed By: #### C MADM, BNP, BMP #### [facility] [address] [place] [address] Dr. Risa Patterson PROF 14(COMP METB)on 023 Albumin [Mass/Vol] 2.9 g/dL Critically low 3.4-5.0 Th [facility] Comment on above: Performed By: #### C MP #### [facility] [address] [place] [address] Dr. Risa Patterson Albumin/Globulin [Mass ratio] 0.7 {ratio} Normal [facility] Comment on above: Performed By: #### C MP #### [facility] [address] [place] [address] Dr. Risa Patterson ALP [Catalytic activity/Vol] 66 U/L Normal 46-116 [facility] Comment on above: Performed By: #### C MP #### [facility] [address] [place] [address] Dr. Risa Patterson ALT [Catalytic activity/Vol] 31 U/L Normal 16-63 [facility] Comment on above: Performed By: #### C MP #### [facility] [address] [address] [address] Risa Patterson Anion gap [Moles/Vol] 15.6 mmol/L Normal Th e [facility] Comment on above: Performed By: #### C MP #### [facility] [address] [address] [address] Risa Patterson AST [Catalytic activity/Vol] 35 U/L Normal 15-37 [facility] Comment on above: Performed By: #### C MP #### [facility] [address] [address] [address] Risa Patterson Bilirubin [Mass/Vol] 0.4 mg/dL Normal 0.2-1.0 [facility] Comment on above: Performed By: #### C MP #### [facility] [address] [address] [address] Risa Patterson Calcium [Mass/Vol] 8.9 mg/dL Normal 8.5-10.1 [facility] Comment on above: Performed By: #### C MP #### [facility] [address] [address] [address] Risa Patterson Chloride [Moles/Vol] 105 mmol/L Normal 98-107 [facility] Comment on above: Performed By: #### C MP #### [facility] [address] [address] [address] Risa Patterson CO2 [Moles/Vol] 24.5 mmol/L Normal 21.0-32.0 [facility] Comment on above: Performed By: #### C MP #### [facility] [address] [address] [address] Risa Patterson Creatinine [Mass/Vol] 1.35 mg/dL Critically high 0.70-1.30 [facility] Comment on above: Performed By: #### C MP #### [facility] [address] [address] [address] Risa Patterson EGFR-AF [place] >60 Normal >=60 [facility] Comment on above: Performed By: #### C MP #### [facility] [address] [address] [address] Risa Patterson EGFR-NON AF [place] 54 mL/min/1.73m2 Critically low >=60 [facility] Comment on above: Performed By: #### C MP #### [facility] [address] [address] [address] Risa Patterson Globulin (S) [Mass/Vol] 4.3 g/dL Normal [facility] Comment on above: Performed By: #### C MP #### [facility] [address] [address] [address] Risa Patterson Glucose [Mass/Vol] 107 mg/dL Critically high 74-106 T [facility] Comment on above: Performed By: #### C MP #### [facility] [address] [address] [address] Risa Patterson Potassium [Moles/Vol] 4.1 mmol/L Normal 3.5-5.1 [facility] Comment on above: Performed By: #### C MP #### [facility] [address] [address] [address] Risa Patterson Protein [Mass/Vol] 7.2 g/dL Normal 6.4-8.2 [facility] Comment on above: Performed By: #### C MP #### [facility] [address] [place] [address] Dr. Risa Patterson Sodium [Moles/Vol] 141 mmol/L Normal 136-145 [facility] Comment on above: Performed By: #### C MP #### [facility] [address] [address] [address] Risa Patterson Urea nitrogen [Mass/Vol] 19.0 mg/dL Critically high 7.0-18.0 [facility] Comment on above: Performed By: #### C MP #### [facility] [address] [address] [address] Risa Patterson Urea nitrogen/Creatinine [Mass ratio] 14.1 mg/mg Normal [facility] Comment on above: Performed By: #### C MP #### [facility] [address] [address] [address] Risa Patterson SED RATE [facility] 2022 SED RATE 57 mm/hr Critically high <=20 [facility] Comment on above: Performed By: #### S EDR #### [facility] [address] [address] [address] Risa Bolden 08-28-2022 CNPN Telephone (CATLMN) ELENA FELIX ([id number]) 1960 M Date Time Provider Department 08/28/22 EMILY ANDERSON CATABIGAIL During your visit today, we recorded the following information about you: Silvina Bethea RN, RN 08/28/2022 2:00 PM Signed CARDIOVASCULAR LAB INSTRUCTIONS: Readiness to Learn: Cognitive Ability: Alert and oriented Motivation To Learn: Interested Family/Significant Other Support: High - Very involved in pt care Instruction Provided To: Patient and family member Patient Learns Best By: Verbal Instruction Factors Affecting Learning: None Physical Limitations Affecting Learning: None Learning Response: Procedure: Right Heart Diagnostic Pre procedure education topics: Arrival time/NPO Status/Medications/Travel Instructions/Restrictions Patient/Family Response Evaluation: Verbalizes understanding Follow Up Plan and Medication: As directed by physician Instruction/Supplemental Material Given: Cardiac catheterization instructions, procedure information, hospital information, hotel information. Instructed By Silvina Bethea RN, RN. In Department of CARDIOLOGY. Allergies As of Date: 08/28/2022 Noted Allergy Reaction MORPHINE 08/24/2016 5 - Intolerance Comments: Patient thinks that with previous surgery he had a mental psychotic reaction with the combination of Lyrica and Morphine. LISINOPRIL 09/16/2021 16 - Unknown LOSARTAN 05/30/2022 16 - Unknown Date Reviewed: 08/16/2022 Reviewed by: Caleb Martínez MA - Fully Assessed Reason for Visit: Patient Education [91] Prescriptions as of 08/28/2022 - pyridostigmine (MESTINON) 60 mg tablet Take 60 mg by mouth three times daily. - budesonide-formoterol (SYMBICORT) 160-4.5 mcg/actuation inhaler Inhale 2 Puffs as instructed q 12 HR. - metoprolol succinate ER (TOPROL XL) 100 mg Take 100 mg by mouth once daily. - midodrine (PROAMATINE) 10 mg tablet Take 10 mg by mouth three times daily. - venlafaxine ER (EFFEXOR XR) 75 mg 24 hr capsule Take 75 mg by mouth once daily. - cyclobenzaprine (FLEXERIL) 10 mg tablet Take 10 mg by mouth three times daily. - predniSONE (DELTASONE) 50 mg - albuterol HFA (PROVENTIL HFA, VENTOLIN HFA) 90 mcg/actuation inhaler - spironolactone (ALDACTONE) 25 mg tablet Take 25 mg by mouth once daily. - ASPIRIN ORAL Take 81 mg by mouth once daily. - oxaprozin (DAYPRO) 600 mg tablet Take 1,200 mg by mouth once daily. - tamsulosin (FLOMAX) 0.4 mg Take 0.4 mg by mouth once daily. - atorvastatin (LIPITOR) 40 mg tablet Take 40 mg by mouth once daily. - gabapentin (NEURONTIN) 300 mg capsule Take 3 capsules by mouth three times daily for 30 days. - leflunomide (ARAVA) 20 mg tablet Take 20 mg by mouth once daily. - methotrexate 2.5 mg tablet Take 5 mg by mouth one time a week. - folic acid 1 mg tablet Take 1 mg by mouth once daily. - omeprazole (PRILOSEC) 20 mg capsule Take 20 mg by mouth once daily. - DULoxetine (CYMBALTA) 60 mg capsule Take 60 mg by mouth twice daily. Facility-Administered Medications as of 08/28/2022 - perflutren lipid microspheres 1.3 mL in NaCl (PF) 0.9% 10 mL injection (DEFINITY) - sodium chloride 0.9 % (flush) 10 mL (BD POSIFLUSH) Problem List As Of Date 08/28/2022 Noted Resolved Ankylosing spondylitis (HCC) [M45.9] Esophageal reflux [K21.9] Arthritis [M19.90] Kidney stones [N20.0] Back pain [M54.9] Pneumonia [J18.9] 12/15/2016 Former smoker [Z87.891] Labral tear of hip, degenerative [M24.159] 07/19/2015 Bilateral low back pain without sciatica [M54.5*07/19/2015 Pain in right hip [M25.551] 07/19/2015 Flat back syndrome [M40.30] 07/19/2015 S/P lumbar laminectomy [Z98.890] 07/19/2015 Primary osteoarthritis of right hip [M16.11] 12/01/2015 Right lumbar radiculitis [M54.16] 06/13/2016 Morbid obesity with BMI of 40.0-44.9, adult (HC* Obstructive sleep apnea syndrome, severe [G47.3* Major depressive disorder with single episode, *08/24/2016 Cerebrovascular small vessel disease [I67.9] 08/24/2016 Wound infection after surgery [T81.49XA] 09/12/2016 Wound infection [T14.8XXA, L08.9] 09/12/2016 Elevated troponin level [R77.8] 09/17/2016 Patricia infection [B37.9] 09/22/2016 C. difficile colitis [A04.72] 09/22/2016 Wound drainage [L24.A9] 09/23/2016 10/30/2016 Acute deep vein thrombosis (DVT) of femoral vei*10/15/2016 Infection [B99.9] 09/23/2016 Anticoagulation management encounter [Z51.81, Z*10/27/2016 10/30/2016 TIFFANIE (acute kidney injury) (HCC) [N17.9] 12/09/2016 12/15/2016 Pneumonia of left lower lobe due to infectious *02/05/2017 Sinus tachycardia [R00.0] 02/05/2017 Encounter Status:Closed by LAURYN BETHEA RN on 08/28/22 [facility] Adela 08-16-2022 CNOV Office Visit (RHARMN ) ELENA FELIX ([id number]) 1960 Date Time Provider Department 08/16/22 10:00 AM ALEXUS NANCE During your visit today, we recorded the following information about you: Alexus Nance PA-C 09/19/2022 6:06 AM Signed [facility] Date of Service: 08/16/2022 Patient: Elena Felix Medical Record: [id number] Primary Care Physician: Silvana Lundberg MD Last Rheumatology visit: None at the [facility] Referring Provider: Tricia Howard MD [address] [facility] [address] Consultation requested by Tricia Howard MD for an opinion regarding Ankylosing Spondylitis. My final recommendations will be communicated back to the requesting physician by way of shared Medical record or letter to requesting physician via US mail. History of Present Illness Elena Felix is a 62 year old White male who presents on 08/16/2022 for an in-person visit for evaluation of Ankylosing Spondylitis. 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 Patient reports he was diagnosed with ankylosing spondylitis at age 19. Reports diagnosis was from a blood test that is only 50% accurate but that his spine began to fuse 10 years later. He currently follows with a growth hacker, Dr. Brad Hodges, in [place], [place] who he is happy with. However, reports growth hacker told him, he is only his third patient with ankylosing spondylitis and so presents to [facility] rheum for assistance on treatment plan. Current treatment includes leflunomide 20 daily, methotrexate 12.5 mg once weekly, and folic acid 1 mg daily. He also has prescriptions for gabapentin and cymbalta for his neuropathy. He will occasionally have prednisone tapers as well, but has not had any recently. Past use of Humira, but this was d/c after he developed severe headaches and developed white mass areas in the brain. Reports his growth hacker has considered a TNF-alpha inhibitor again, but is cautious is of the risks. He has had joint injections in the elbows and spine. He additionally follows with cardiology and pulmonology for his comorbidities. Symptoms include joint pain in the neck, thumbs, elbows, and back. Reports past spinal surgeries that helped with some of his symptoms. Reports pain in spine improved after surgery and he gained four inches in height . He also has foot pain, but reports this is 2/2 to his neuropathy. Occasionally right elbow will swell. He has significant limitation in range of motion given his spinal history. Reports he has had inflammatory eye disease 2-3 times, each relieved with medication. Reports last instance was over 5 years ago. Reports this was mostly in the right eye. Denies IBD or psoriasis. Patient-Entered Data PAIN EVALUATION 08/16/2022 1020 Pain Level: 3 Pain Location: Back hips, thumbs Description: Dull PROMIS Assessments PROMIS Assessments 02/08/2017 08/23/2017 01/09/2018 Physical Health Percentile 2.07 % 3.92 % 2.07 % Mental Health Percentile 5.26 % 3.07 % 13.14 % Pain Score 7 6 8 RAPID 3 [place] Activities of Daily Living No Data Dress self? - Get in and out of bed? - Walk outdoors? - Wash and dry body? - Get in and out of car? - RAPID 3 Disease Activity Weighed Score Levels: 0 - 1: Near Remission 1.3 - 2.0: Low Severity 2.3 - 4.0: Moderate Severity 4.3 - 10.0: High Severity No flowsheet data found. Review of Systems ROS RHEUMATOLOGY All other reviewed and negative other than HPI. Past Medical History PAST MEDICAL HISTORY Diagnosis Date Ankylosing spondylitis ([facility]) Dr Hodges Ankylosing spondylitis ([facility]) Arthritis Back pain Cardiomyopathy ([facility]) Nonischemic Congestive Cerebrovascular small vessel disease 08/24/2016 On ASA DVT (deep venous thrombosis) ([facility]) Esophageal reflux Former smoker Kidney stones Major depressive disorder with single episode, in remission ([facility]) 08/24/2016 Morbid obesity with BMI of 40.0-44.9, adult ([facility]) Neuropathy Obstructive sleep apnea syndrome, severe On auto-CPAP - sleep study done on 07/10/16 Pneumonia Past Surgical History PAST SURGICAL HISTORY Procedure Laterality Date BACK SURGERY HX 2012 BACK SURGERY HX 2014 MIDLINE INSERTION/CONSULT 09/05/2016 NOSE SURGERY HX sinus surg Dr Rojo PAST SURGICAL HISTORY OF 1986 R hand surgery PAST SURGICAL HISTORY OF 2001 R finger surgery PICC LINE INSERT/CONSULT 09/16/2016 TOTAL HIP JOINT REPLACEMENT Right Family History FAMILY HISTORY Problem Relation Age of Onset Breast Cancer Mother Stroke (more content not included)... Normal [facility] CNOV Office Visit (CARCMN ) ELENA FELIX ([id number]) 1960 M Date Time Provider Department 08/16/22 7:15 AM TRICIA HOWARD CARCMN During your visit today, we recorded the following information about you: Pulse Blood pressure Weight Height 89/minute 114/78 132.4 kg 1.88 m Tricia Howard MD 08/16/2022 1:01 PM Signed [facility] [place] [facility] Flannery Department of Cardiovascular Medicine SECTION OF CLINICAL CARDIOLOGY OUTPATIENT VISIT DATE August 16, 2022 OUTPATIENT VISIT TYPE NEW PRIMARY CARE PHYSICIAN : Silvana Lundberg ([place]) [address] [place] [phone] REFERRING PHYSICIAN: No referring provider defined for this encounter. CHIEF COMPLAINT: Palpitations, lightheadedness HISTORY OF PRESENT ILLNESS: Mr. Felix is a 61 year old male with PMHx of ankylosing spondylitis requiring multiple back surgeries, provoked DVT and a subsequent short segment distal DVT in 08/2021 which was unprovoked, not currently on AC, and HFrecEF (as low as 25% now 60%) 2/2 NICM. Starting in 2019 post-op, began experiencing palpitations and tachycardia, reportedly in AF, thought to be just post-op. Continued to have palpitations and associated dyspnea. Symptoms progressed with more exertional dyspnea and decline in functional status. Echo showed EF as low as 25% in 2021, globally down LV. LHC with non-obst CAD and RHC with normal R sided pressures 06/2021. Continues to have exertional dyspnea, orthostatic lightheadedness/pre-syncope occurring every day. Tilt table test 07/2022 diagnosed ?POTS. Has been on midodrine and recently started pyroidostigmine last week. Doing cardiac rehab. Latest echo is up to EF 60%, abnormal septal motion. Follows with pulm, may have some obstructive and restrictive lung disease (?from , from methotrexate). Quit smoking 20 years ago. Used to work in [employer]. Fmaily hx of stroke in mother and father. PAST MEDICAL HISTORY Diagnosis Date Ankylosing spondylitis ([facility]) Dr Hodges Ankylosing spondylitis ([facility]) Arthritis Back pain Cardiomyopathy ([facility]) Nonischemic Congestive Cerebrovascular small vessel disease 08/24/2016 On ASA DVT (deep venous thrombosis) ([facility]) Esophageal reflux Former smoker Kidney stones Major depressive disorder with single episode, in remission ([facility]) 08/24/2016 Morbid obesity with BMI of 40.0-44.9, adult ([facility]) Neuropathy Obstructive sleep apnea syndrome, severe On auto-CPAP - sleep study done on 07/10/16 Pneumonia PAST SURGICAL HISTORY Procedure Laterality Date BACK SURGERY HX 2013 BACK SURGERY HX 2015 MIDLINE INSERTION/CONSULT 09/05/2016 NOSE SURGERY HX sinus surg Dr Rojo PAST SURGICAL HISTORY OF 1986 R hand surgery PAST SURGICAL HISTORY OF 2001 R finger surgery PICC LINE INSERT/CONSULT 09/16/2016 TOTAL HIP JOINT REPLACEMENT Right SOCIAL HISTORY Social History Tobacco Use Smoking status: Former Packs/day: 2.00 Years: 21.00 Pack years: 42.00 Types: Cigarettes Passive exposure: Past Smokeless tobacco: Never Tobacco comments: quit 1997 Substance Use Topics Alcohol use: No Drug use: No FAMILY HISTORY Problem Relation Age of Onset Breast Cancer Mother Stroke Mother other (Migraine) Mother may have had migraine HAs Emphysema Father Stroke Father Arthritis Father other (Negative) Father multiple sclerosis ALLERGIES: ALLERGIES Allergen Reactions Morphine Intolerance Patient thinks that with previous surgery he had a mental psychotic reaction with the combination of Lyrica and Morphine. Lisinopril Unknown Losartan Unknown MEDICATIONS: pyridostigmine (MESTINON) 60 mg tablet Take 60 mg by mouth three times daily. budesonide-formoterol (SYMBICORT) 160-4.5 mcg/actuation inhaler Inhale 2 Puffs as instructed q 12 HR. metoprolol succinate ER (TOPROL XL) 100 mg Take 100 mg by mouth once daily. midodrine (PROAMATINE) 10 mg tablet Take 10 mg by mouth three times daily. venlafaxine ER (EFFEXOR XR) 75 mg 24 hr capsule Take 75 mg by mouth once daily. cyclobenzaprine (FLEXERIL) 10 mg tablet Take 10 mg by mouth three times daily. predniSONE (DELTASONE) 50 mg levoFLOXacin (LEVAQUIN) 500 mg tablet Take 750 mg by mouth once daily. albuterol HFA (PROVENTIL HFA, VENTOLIN HFA) 90 mcg/actuation inhaler spironolactone (ALDACTONE) 25 mg tablet Take 25 mg by mouth once daily. ASPIRIN ORAL Take 81 mg by mouth once daily. oxaprozin (DAYPRO) 600 mg tablet Take 1,200 mg by mouth once daily. tamsulosin (FLOMAX) 0.4 mg Take 0.4 mg by mouth once daily. atorvastatin (LIPITOR) 40 mg tablet Take 40 mg by mouth once daily. gabapentin (NEURONTIN) 300 mg capsule Take 3 capsules by mouth three times daily for 30 days. leflunomide (ARAVA) 20 mg tablet Take 20 mg by mouth once daily. methotrexate 2.5 mg tablet Take 5 (more content not included)... Normal [facility] ECG COMPLETEon 08-16-2022 Atrial Rate 83 BPM [facility] Calculated P [place] 27 degrees [facility] Calculated R [place] 14 degrees [facility] Calculated T [place] 38 degrees [facility] P-R Interval 158 ms [facility] QRS Duration 86 ms [facility] QT Interval 350 ms [facility] QTC Calculation (Bazett) 411 ms [facility] Ventricular Rate 83 BPM [facility] ECG COMPLETE Ventricular Rate : 8 3 BPM Atrial Rate : 83 BPM P-R Interval : 158 ms QRS Duration : 86 ms Q-T Interval : 350 ms QTC Calculation(Bazett) : 411 ms Calculated P [place] : 27 degrees Calculated R [place] : 14 degrees Calculated T [place] : 38 degrees NORMAL SINUS RHYTHM NORMAL ECG Confirmed by YELENA FUENTES MD ([id number]) on 08/16/2022 10:01:53 AM NAME : ELENA FELIX PID : [id number] : 1960 Gender : Male Race : ORD : [id number] Procedure Date : Aug 16 2022 07:21:17 Edit Date : Aug 16 2022 10:01:54 Diagnosis: NORMAL SINUS RHYTHM NORMAL ECG Confirmed by YELENA FUENTES MD ([id number]) on 08/16/2022 10:01:53 AM Test Reason : Location : 314 : J14 J14 Overread By : YELENA FUENTES MD Edited By : YELENA FUENTES MD Referred By : TRICIA HOWARD Acquired by : RENETTA GOODWIN [facility] Yuan 08-15-2022 CNPN Telephone (CARCMN) ELENA FELIX ([id number]) 1960 M Date Time Provider Department 08/15/22 TRICIA HOWARD CARCNE During your visit today, we recorded the following information about you: Geovanni Baker 08/15/2022 12:55 PM Signed Images received from [employer] by mail. Images uploaded to [employer]. Patient has a future appointment on: 08/16/22. Date of last OV: N/A. Geovanni Baker August 15, 2022 12:46 PM Allergies As of Date: 08/15/2022 Noted Allergy Reaction MORPHINE 08/24/2016 5 - Intolerance Comments: Patient thinks that with previous surgery he had a mental psychotic reaction with the combination of Lyrica and Morphine. LISINOPRIL 09/16/2021 16 - Unknown Date Reviewed: 01/18/2022 Reviewed by: Karrie Ozuna - Fully Assessed Reason for Visit: Received Outside Medical Records [[id number]] Prescriptions as of 08/15/2022 - cyclobenzaprine (FLEXERIL) 10 mg tablet Take 10 mg by mouth three times daily. - predniSONE (DELTASONE) 50 mg - levoFLOXacin (LEVAQUIN) 500 mg tablet Take 750 mg by mouth once daily. - albuterol HFA (PROVENTIL HFA, VENTOLIN HFA) 90 mcg/actuation inhaler - spironolactone (ALDACTONE) 25 mg tablet Take 25 mg by mouth once daily. - ASPIRIN ORAL Take 81 mg by mouth once daily. - oxaprozin (DAYPRO) 600 mg tablet Take 1,200 mg by mouth once daily. - tamsulosin (FLOMAX) 0.4 mg Take 0.4 mg by mouth once daily. - atorvastatin (LIPITOR) 40 mg tablet Take 40 mg by mouth once daily. - gabapentin (NEURONTIN) 300 mg capsule Take 3 capsules by mouth three times daily for 30 days. - leflunomide (ARAVA) 20 mg tablet Take 20 mg by mouth once daily. - methotrexate 2.5 mg tablet Take 5 mg by mouth one time a week. - folic acid 1 mg tablet Take 1 mg by mouth once daily. - omeprazole (PRILOSEC) 20 mg capsule Take 20 mg by mouth once daily. - DULoxetine (CYMBALTA) 60 mg capsule Take 60 mg by mouth twice daily. Problem List As Of Date 08/15/2022 Noted Resolved Ankylosing spondylitis (HCC) [M45.9] Esophageal reflux [K21.9] Arthritis [M19.90] Kidney stones [N20.0] Back pain [M54.9] Pneumonia [J18.9] 12/15/2016 Former smoker [Z87.891] Labral tear of hip, degenerative [M24.159] 07/19/2015 Bilateral low back pain without sciatica [M54.5*07/19/2015 Pain in right hip [M25.551] 07/19/2015 Flat back syndrome [M40.30] 07/19/2015 S/P lumbar laminectomy [Z98.890] 07/19/2015 Primary osteoarthritis of right hip [M16.11] 12/01/2015 Right lumbar radiculitis [M54.16] 06/13/2016 Morbid obesity with BMI of 40.0-44.9, adult (HC* Obstructive sleep apnea syndrome, severe [G47.3* Major depressive disorder with single episode, *08/24/2016 Cerebrovascular small vessel disease [I67.9] 08/24/2016 Wound infection after surgery [T81.49XA] 09/12/2016 Wound infection [T14.8XXA, L08.9] 09/12/2016 Elevated troponin level [R77.8] 09/17/2016 Patricia infection [B37.9] 09/22/2016 C. difficile colitis [A04.72] 09/22/2016 Wound drainage [L24.A9] 09/23/2016 10/30/2016 Acute deep vein thrombosis (DVT) of femoral vei*10/15/2016 Infection [B99.9] 09/23/2016 Anticoagulation management encounter [Z51.81, Z*10/27/2016 10/30/2016 TIFFANIE (acute kidney injury) (HCC) [N17.9] 12/09/2016 12/15/2016 Pneumonia of left lower lobe due to infectious *02/05/2017 Sinus tachycardia [R00.0] 02/05/2017 Encounter Status:Closed by GEOVANNI BAKER on 08/15/22 Normal [facility] Office Visiton 08-10-2022 Follow-up visit [id number] Miguel Felix 1960 M Date Provider Department Center 08/10/2022 Becka-MARIA TERESA BA C[facility] Family History Problem Relation Age of Onset No Known Problems Mother No Known Problems Father Family Status - Relation Status Age at Mother Father Level of Service:40335 [place] OFFICE/OUTPATIENT ESTABLISHED MOD MDM 30-39 MIN Normal [facility] Yuan 08-04-2022 CNPN Telephone (CARCMN) ELENA FELIX ([id number]) 1960 M Date Time Provider Department 08/04/22 TRICIA HOWARD CARCMN During your visit today, we recorded the following information about you: Geovanni Baker 08/04/2022 4:50 PM Signed Contact patient noting the medical records were received but no images were provided. VMM left noting that images are still needed. Geovanni Baker August 04, 2022 4:34 PM Geovanni Baker 08/04/2022 4:50 PM Signed Records received from [facility] by fax. Records uploaded to [facility] and sent to scanning. Patient has a future appointment on: 08/16/22. Date of last OV: N/A. Geovanni Baker August 04, 2022 4:38 PM Allergies As of Date: 08/04/2022 Noted Allergy Reaction MORPHINE 08/24/2016 5 - Intolerance Comments: Patient thinks that with previous surgery he had a mental psychotic reaction with the combination of Lyrica and Morphine. LISINOPRIL 09/16/2021 16 - Unknown Date Reviewed: 01/18/2022 Reviewed by: Karrie Ozuna - Fully Assessed Reason for Visit: Request Outside Medical Records [[id number]] Received Outside Medical Records [3576] Prescriptions as of 09/15/2022 - pyridostigmine (MESTINON) 60 mg tablet Take 60 mg by mouth three times daily. - budesonide-formoterol (SYMBICORT) 160-4.5 mcg/actuation inhaler Inhale 2 Puffs as instructed q 12 HR. - metoprolol succinate ER (TOPROL XL) 100 mg Take 100 mg by mouth once daily. - midodrine (PROAMATINE) 10 mg tablet Take 10 mg by mouth three times daily. - venlafaxine ER (EFFEXOR XR) 75 mg 24 hr capsule Take 75 mg by mouth once daily. - cyclobenzaprine (FLEXERIL) 10 mg tablet Take 10 mg by mouth three times daily. - predniSONE (DELTASONE) 50 mg - albuterol HFA (PROVENTIL HFA, VENTOLIN HFA) 90 mcg/actuation inhaler - spironolactone (ALDACTONE) 25 mg tablet Take 25 mg by mouth once daily. - ASPIRIN ORAL Take 81 mg by mouth once daily. - oxaprozin (DAYPRO) 600 mg tablet Take 1,200 mg by mouth once daily. - tamsulosin (FLOMAX) 0.4 mg Take 0.4 mg by mouth once daily. - atorvastatin (LIPITOR) 40 mg tablet Take 40 mg by mouth once daily. - gabapentin (NEURONTIN) 300 mg capsule Take 3 capsules by mouth three times daily for 30 days. - leflunomide (ARAVA) 20 mg tablet Take 20 mg by mouth once daily. - methotrexate 2.5 mg tablet Take 5 mg by mouth one time a week. - folic acid 1 mg tablet Take 1 mg by mouth once daily. - omeprazole (PRILOSEC) 20 mg capsule Take 20 mg by mouth once daily. - DULoxetine (CYMBALTA) 60 mg capsule Take 60 mg by mouth twice daily. Facility-Administered Medications as of 09/15/2022 - perflutren lipid microspheres 1.3 mL in NaCl (PF) 0.9% 10 mL injection (DEFINITY) - sodium chloride 0.9 % (flush) 10 mL (BD POSIFLUSH) Problem List As Of Date 08/04/2022 Noted Resolved Ankylosing spondylitis (HCC) [M45.9] Esophageal reflux [K21.9] Arthritis [M19.90] Kidney stones [N20.0] Back pain [M54.9] Pneumonia [J18.9] 12/15/2016 Former smoker [Z87.891] Labral tear of hip, degenerative [M24.159] 07/19/2015 Bilateral low back pain without sciatica [M54.5*07/19/2015 Pain in right hip [M25.551] 07/19/2015 Flat back syndrome [M40.30] 07/19/2015 S/P lumbar laminectomy [Z98.890] 07/19/2015 Primary osteoarthritis of right hip [M16.11] 12/01/2015 Right lumbar radiculitis [M54.16] 06/13/2016 Morbid obesity with BMI of 40.0-44.9, adult (HC* Obstructive sleep apnea syndrome, severe [G47.3* Major depressive disorder with single episode, *08/24/2016 Cerebrovascular small vessel disease [I67.9] 08/24/2016 Wound infection after surgery [T81.49XA] 09/12/2016 Wound infection [T14.8XXA, L08.9] 09/12/2016 Elevated troponin level [R77.8] 09/17/2016 Patricia infection [B37.9] 09/22/2016 C. difficile colitis [A04.72] 09/22/2016 Wound drainage [L24.A9] 09/23/2016 10/30/2016 Acute deep vein thrombosis (DVT) of femoral vei*10/15/2016 Infection [B99.9] 09/23/2016 Anticoagulation management encounter [Z51.81, Z*10/27/2016 10/30/2016 TIFFANIE (acute kidney injury) (HCC) [N17.9] 12/09/2016 12/15/2016 Pneumonia of left lower lobe due to infectious *02/05/2017 Sinus tachycardia [R00.0] 02/05/2017 Encounter Status:Closed by GEOVANNI BAKER on 09/15/22 Normal [facility] CNCOon 08-03-2022 CNCO Letter Text Normal [facility] TILT TABLE TESTon 08-01-2022 TILT TABLE TEST [address] [id number] TILT TABLE TEST PATIENT NAME: ELENA FELIX : 1960 MED REC NO: [id number] ROOM: ACCOUNT NO: [id number] ADMIT DATE: 07/31/2022 PROVIDER: Santos Barrios MD Cardiovascular Diagnostics Department DATE OF PROCEDURE: 07/31/2022 ORDERING PROVIDER: Carlos Krishna APRN-ROLLER CHECKER PRIMARY CARE PROVIDER: Silvana Lundberg MD INTERPRETING PHYSICIAN: Santos Barrios MD Diagnosis: Orthostatic hypotension. PROCEDURE SUMMARY: After explaining the risk, benefits and alternatives to the procedure, informed written consent was obtained. The patient was brought to the tilt table laboratory in a fasting and resting state. The patient was placed on the tilt table in the supine position, ECG patches were applied and an IV was placed. The patient's baseline blood pressure was 118/72 mmHg with a heart rate of 75/minute. The patient was then raised to the 70 degree head upright tilt position with and pulse rate, blood pressure and cardiac rhythm were monitored and recorded each minute of the study for a maximum of 30 minutes. During the initial 20 minutes of the study, the patient's blood pressure ranged from a high of 113/85 mmHg to a low of 82/56 mmHg, while their heart rate ranged from a low of 100/minute to a high of 125/minute. During this period, the patient reported palpitations and shortness of breath. During the last 10 minutes of the study, nitroglycerin was not given due to low BP. During this time, the patient's blood pressure ranged from a high of 120/60 mmHg to a low of 74/48 mmHg, while their heart rate ranged from a low of 92/minute to a high of 127/minute. During this period, the patient reported moderate lightheadedness, palpitations and shortness of breath. At this point, the patient was returned to the supine position and monitored for an additional ten minutes. Once the patient felt well enough to be discharged home, they were discharged home with instructions to follow up with their primary care physician and/or box nailer as previously scheduled. STUDY CONCLUSIONS: Abnormal head upright tilt table study. The patient's heart rate, blood pressure response and symptoms were most consistent with orthostatic intolerance. Combined with vigilant maintenance of euvolemia and maintaining a moderate salt intake, pharmacologic treatment with Florinef and/or a Serotonin Selective Reuptake Inhibitor (SSRI) such as Lexapro among other treatments have shown some effectiveness in the treatment of this condition. SANTOS BARRIOS MD BRANDON/OSMIN Doc#: Unknown CC: Silvana Joel Tomi [facility] 07-12-[address] [facility] Telephone (CARCMN) ELENA FELIX ([id number]) 1960 M Date Time Provider Department 07/12/22 TRICIA HOWARD [facility] During your visit today, we recorded the following information about you: Geovanni Jonathan 07/12/2022 2:02 PM Signed Contacted patient via Phone -no answer; [facility] left requesting for cardiac records prior to appointment on 08/16/22. 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 LISINOPRIL 09/16/2021 16 - Unknown Date Reviewed: 01/18/2022 Reviewed by: Karrie Ozuna - Fully Assessed Reason for Visit: Appointment [186] Prescriptions as of 07/12/2022 - cyclobenzaprine (FLEXERIL) 10 mg tablet Take 10 mg by mouth three times daily. - predniSONE (DELTASONE) 50 mg - levoFLOXacin (LEVAQUIN) 500 mg tablet Take 750 mg by mouth once daily. - albuterol HFA (PROVENTIL HFA, VENTOLIN HFA) 90 mcg/actuation inhaler - spironolactone (ALDACTONE) 25 mg tablet Take 25 mg by mouth once daily. - ASPIRIN ORAL Take 81 mg by mouth once daily. - oxaprozin (DAYPRO) 600 mg tablet Take 1,200 mg by mouth once daily. - tamsulosin (FLOMAX) 0.4 mg Take 0.4 mg by mouth once daily. - atorvastatin (LIPITOR) 40 mg tablet Take 40 mg by mouth once daily. - gabapentin (NEURONTIN) 300 mg capsule Take 3 capsules by mouth three times daily for 30 days. - leflunomide (ARAVA) 20 mg tablet Take 20 mg by mouth once daily. - methotrexate 2.5 mg tablet Take 5 mg by mouth one time a week. - folic acid 1 mg tablet Take 1 mg by mouth once daily. - omeprazole (PRILOSEC) 20 mg capsule Take 20 mg by mouth once daily. - DULoxetine (CYMBALTA) 60 mg capsule Take 60 mg by mouth twice daily. Problem List As Of Date 07/12/2022 Noted Resolved Ankylosing spondylitis (HCC) [M45.9] Esophageal reflux [K21.9] Arthritis [M19.90] Kidney stones [N20.0] Back pain [M54.9] Pneumonia [J18.9] 12/15/2016 Former smoker [Z87.891] Labral tear of hip, degenerative [M24.159] 07/19/2015 Bilateral low back pain without sciatica [M54.5*07/19/2015 Pain in right hip [M25.551] 07/19/2015 Flat back syndrome [M40.30] 07/19/2015 S/P lumbar laminectomy [Z98.890] 07/19/2015 Primary osteoarthritis of right hip [M16.11] 12/01/2015 Right lumbar radiculitis [M54.16] 06/13/2016 Morbid obesity with BMI of 40.0-44.9, adult (HC* Obstructive sleep apnea syndrome, severe [G47.3* Major depressive disorder with single episode, *08/24/2016 Cerebrovascular small vessel disease [I67.9] 08/24/2016 Wound infection after surgery [T81.49XA] 09/12/2016 Wound infection [T14.8XXA, L08.9] 09/12/2016 Elevated troponin level [R77.8] 09/17/2016 Patricia infection [B37.9] 09/22/2016 C. difficile colitis [A04.72] 09/22/2016 Wound drainage [L24.A9] 09/23/2016 10/30/2016 Acute deep vein thrombosis (DVT) of femoral vei*10/15/2016 Infection [B99.9] 09/23/2016 Anticoagulation management encounter [Z51.81, Z*10/27/2016 10/30/2016 TIFFANIE (acute kidney injury) (HCC) [N17.9] 12/09/2016 12/15/2016 Pneumonia of left lower lobe due to infectious *02/05/2017 Sinus tachycardia [R00.0] 02/05/2017 Encounter Status:Closed by GEOVANNI BAKER on 07/12/22 Normal [facility] Office Visiton 07-12-2022 Follow-up visit [id number] Miguel Felix 1960 [facility] Provider Department Center 07/12/2022 CARLOS [facility]OD CARD [facility] Family History Problem Relation Age of Onset No Known Problems Mother No Known Problems Father Family Status - Relation Status Age at Mother Father Level of Service:76263 [place] OFFICE/OUTPATIENT ESTABLISHED MOD MDM 30-39 MIN Reason for Visit and Comments: Congestive Heart Failure [127] Hypertension [428046] POTS [Other] [facility] 36on 07-05-2022 36 Per Ted from [facility] car diac rehab, patient is very orthostatic and is very dizzy. It's very hard for him to ride the bikes at cardiac rehab due to dizziness. Can he cut the metoprolol? Normal [facility] Documentationon 07-05-2022 Documentation [id number] Miguel Felix 1960 M Date Provider Department Center 07/05/2022 120-JESENIA, MARIA TERESA KISHORE [address] Family History Problem Relation Age of Onset No Known Problems Mother No Known Problems Father Family Status - Relation Status Age at Mother Father Reason for Visit and Comments: POTS [Other] Normal [facility] Orders Onlyon 07-05-2022 Orders Only [id number] Miguel Felix 1960 M Date Provider Department Center 07/05/2022 120-JESENIAMARIA TERESA Lui KISHORE [address] Family History Problem Relation Age of Onset No Known Problems Mother No Known Problems Father Family Status - Relation Status Age at Mother Father Normal [facility] CBC AUTO DIFFon 07-04-2022 BASO # 0.1 103/ul Normal 0.0-0.1 [facility] Comment on above: Performed By: #### C MADM, BNP, BMP #### [facility] [address] [place] [address] Dr. Risa Patterson Basophils/100 WBC (Bld) 0.8 % Normal 0.2-2.0 [facility] Comment on above: Performed By: #### C MADM, BNP, BMP #### [facility] [address] [place] [address] Dr. Risa Patterson EO # 0.3 103/ul Normal 0.0-0.7 [facility] Comment on above: Performed By: #### C MADM, BNP, BMP #### [facility] [address] [address] [address] Risa Patterson Eosinophils/100 WBC (Bld) 4.0 % Normal 0.9-7.0 [facility] Comment on above: Performed By: #### C MADM, BNP, BMP #### [facility] [address] [address] [address] Risa Patterson Erythrocyte distribution width (RBC) [Ratio] 15.8 % Critically high 11.0-15.0 [facility] Comment on above: Performed By: #### C MADM, BNP, BMP #### [facility] [address] [place] [address] Dr. Risa Patterson Hematocrit (Bld) [Volume fraction] 37.3 % Critically low 42.0-54.0 [facility] Comment on above: Performed By: #### C MADM, BNP, BMP #### [facility] [address] [place] [address] Dr. Risa Patterson Hemoglobin (Bld) [Mass/Vol] 11.7 g/dL Critically low 14.0-18.0 [facility] Comment on above: Performed By: #### C MADM, BNP, BMP #### [facility] [address] [place] [address] Dr. Risa Patterson IG # 0.04 10e3/ul Critically high 0.00-0.03 [facility] Comment on above: Performed By: #### C MADM, BNP, BMP #### [facility] [address] [place] [address] Dr. Risa Patterson IG % 0.5 % Normal 0.0-0.5 [facility] Comment on above: Performed By: #### C MADM, BNP, BMP #### [facility] [address] [place] [address] Dr. Risa Patterson LYMPH # 1.0 103/ul Critically low 1.2-3.8 [facility] Comment on above: Performed By: #### C MADM, BNP, BMP #### [facility] [address] [place] [address] Dr. Risa Patterson Lymphocytes/100 WBC (Bld) 13.1 % Critically low 20.5-60.0 [facility] Comment on above: Performed By: #### C MADM, BNP, BMP #### [facility] [address] [place] [address] Dr. Risa Patterson MANUAL DIFF REQ NO Normal [facility] Comment on above: Performed By: #### C MADM, BNP, BMP #### [facility] [address] [place] [address] Dr. Risa Patterson MCH (RBC) [Entitic mass] 31.3 pg Normal 25.9-34.0 [facility] Comment on above: Performed By: #### C MADM, BNP, BMP #### [facility] [address] [place] [address] Dr. Risa Patterson MCHC (RBC) [Mass/Vol] 31.4 g/dL Normal 29.9-35.2 [facility] Comment on above: Performed By: #### C MADM, BNP, BMP #### [facility] [address] [place] [address] Dr. Risa Patterson MCV (RBC) [Entitic vol] 99.7 fL Critically high 80.0-94.0 [facility] Comment on above: Performed By: #### C MADM, BNP, BMP #### [facility] [address] [place] [address] Dr. Risa Patterson MONO # 0.9 103/ul Critically high 0.3-0.8 [facility] Comment on above: Performed By: #### C MADM, BNP, BMP #### [facility] [address] [place] [address] Dr. Risa Patterson Monocytes/100 WBC (Bld) 12.3 % Critically high 1.7-12.0 [facility] Comment on above: Performed By: #### C MADM, BNP, BMP #### [facility] [address] [place] [address] Dr. Risa Patterson NEUT # 5.2 103/ul Normal 1.4-6.5 [facility] Comment on above: Performed By: #### C MADM, BNP, BMP #### [facility] [address] [place] [address] Dr. Risa Patterson Neutrophils/100 WBC (Bld) 69.3 % Normal 43.0-75.0 [facility] Comment on above: Performed By: #### C MADM, BNP, BMP #### [facility] [address] [place] [address] Dr. Risa Patterson Platelet mean volume (Bld) [Entitic vol] 9.3 fL Critically low 9.5-13.5 [facility] Comment on above: Performed By: #### C MADM, BNP, BMP #### [facility] [address] [place] [address] Dr. iRsa Patterson PLT 244 103/ul Normal 150-450 [facility] Comment on above: Performed By: #### C MADM, BNP, BMP #### [facility] [address] [address] [address] Risa Patterson RBC 3.74 106/ul Critically low 4.70-6.10 [facility] Comment on above: Performed By: #### C MADM, BNP, BMP #### [facility] [id number] Risa Patterson WBC 7.5 103/ul Normal 4.0-11.0 [facility] Comment on above: Performed By: #### C MADM, BNP, BMP #### [facility] [address] [address] [address] Risa Patterson ECHOCARDIO M/2D COMPLETEon 0 07-04-2022 ECHOCARDIO M/2D COMPLETE Patient: ELENA FELIX Exam Date: 07/04/2022 : 1960 Gender:M Ordering : NIKKIE TREJO Admission #: [id number] Family : DR BRAD HODGES M.D. Order #: [id number] CLICK HERE TO VIEW EXAM ECHOCARDIOGRAM REPORT PROCEDURE: CARDIO PULMONARY ECHOCARDIO M/2D COMP INDICATIONS: Chronic CHF COMPARISON: None. DESCRIPTION: COMPLETE ECHOCARDIOGRAM Real-time transthoracic echocardiography with 2D, M-mode, spectral and color flow Doppler performed. QUALITY: Technical quality was good. LEFT VENTRICLE: Normal chamber size. Borderline left ventricular hypertrophy. LV EF: Global left ventricular systolic function is normal; visually estimated ejection fraction is 55 to 60%. Abnormal septal motion; may be related to underlying bundle branch block. DIASTOLIC: Normal diastolic function. ATRIAL SEPTUM: Inadequately seen. LEFT ATRIUM: Normal chamber size. RIGHT ATRIUM: Mild dilatation. RIGHT VENTRICLE: Normal chamber size. Normal right ventricular systolic function. TRICUSPID VALVE: Normal mobility and thickness. No stenosis with trivial regurgitation. No evidence of pulmonary hypertension. RVSP 33mmHg MITRAL VALVE: Normal mobility and thickness. No mitral valve prolapse. No evidence of mitral valve stenosis. No mitral regurgitation. AORTIC VALVE: Normal trileaflet appearance. No visible sclerosis. Normal leaflet mobility. No evidence of aortic valve stenosis. No aortic regurgitation. AORTIC ROOT: Normal diameter and appearance. PULMONIC VALVE: Normal thickness and mobility. No stenosis. Trivial regurgitation. PERICARDIUM: No evidence of pericardial effusion. IVC: Collapses with inspirations. Normal size. CONCLUSION: Global left ventricular systolic function is normal; visually estimated ejection fraction is 55 to 60%. Abnormal septal motion. Borderline left ventricular hypertrophy. Normal diastolic function. The right atrium appears enlarged. The right ventricle is normal in size and systolic function. No significant valvular abnormalities. Adult Echocardiography Procedure Report Left Ventricle LVEDD (3.7 - 5.6 cm): 5.64 cm LVESD (2.2 - 4.0 cm): 4.21 cm LVIVS thickness (0.6 - 1.2 cm): 1.24 cm LVPW thickness (0.5 - 1.0 cm): 0.92 cm e': 0.14 m/s E - e': 3.84 LVOT Max Gradient: 2.52 mm[Hg] Peak Velocity (LVOT): 0.79 m/s Mean Velocity (LVOT): 0.57 m/s LVOT Diameter 2.46 cm Left Atrium LA Volume Index (2D A2C): 81.18 ml, 81.18 ml Left Atrium Systolic Dimension: 3.65 cm Mitral Valve MV E to A Ratio: 0.85, 0.84 Mitral Valve A-Wave Peak Velocity: 0.64 m/s, 0.60 m/s Mitral Valve E-Wave Peak Velocity: 0.54 m/s, 0.50 m/s Right Ventricle RV Internal Diastolic Dimension: 3.61 cm Aorta AO Root Diam: 3.64 cm Ascending Ao Diam: 3.06 cm Aortic Valve AoV Area (Peak Sarmad): 3.37 cm2, 3.37 cm2 AoV Area (VTI): 3.02 cm2, 3.02 cm2 Peak Velocity(Antegrade Flow): 1.11 m/s Peak Gradient(Antegrade Flow): 4.97 mm[Hg] Mean Velocity(Antegrade Flow): 0.77 m/s Mean Gradient(Antegrade Flow): 2.74 mm[Hg] Velocity Time Integral: 23.91 cm Tricuspid Valve Peak Velocity (Regurgitant Flow): 2.40 m/s, 2.76 m/s, 2.31 m/s Peak Velocity: 0.37 m/s Pulmonic Valve Mean Gradient: 1.65 mm[Hg] Mean Velocity: 0.60 m/s Peak Velocity: 0.90 m/s, 0.93 m/s Peak Gradient: 3.43 mm[Hg], 3.22 mm[Hg] Right Atrium Right Atrium Systolic Pressure: 71.33 ml, 71.33 ml Dictated by: Osmany Hernandez M.D. on 07/04/2022 at 12:03 Approved by: Osmayn Hernandez M.D. on 07/04/2022 at 12:06 Normal [facility] PROF 14(COMP METB)on 023 Albumin [Mass/Vol] 2.9 g/dL Critically low 3.4-5.0 Th e [facility] Comment on above: Performed By: #### C MP #### [facility] [address] [place] [address] Dr. Risa Patterson Albumin/Globulin [Mass ratio] 0.8 {ratio} Normal [facility] Comment on above: Performed By: #### C MP #### [facility] [address] [place] [address] Dr. Risa Patterson ALP [Catalytic activity/Vol] 62 U/L Normal 46-116 [facility] Comment on above: Performed By: #### C MP #### [facility] [address] [place] [address] Dr. Risa Patterson ALT [Catalytic activity/Vol] 30 U/L Normal 16-63 [facility] Comment on above: Performed By: #### C MP #### [facility] [address] [place] [address] Dr. Risa Patterson Anion gap [Moles/Vol] 9.3 mmol/L Normal [facility] Comment on above: Performed By: #### C MP #### [facility] [address] [place] [address] Dr. Risa Patterson AST [Catalytic activity/Vol] 25 U/L Normal 15-37 [facility] Comment on above: Performed By: #### C MP #### [facility] [address] [place] [address] Dr. Risa Patterson Bilirubin [Mass/Vol] 0.4 mg/dL Normal 0.2-1.0 [facility] Comment on above: Performed By: #### C MP #### [facility] [address] [place] [address] Dr. Risa Patterson Calcium [Mass/Vol] 8.8 mg/dL Normal 8.5-10.1 [facility] Comment on above: Performed By: #### C MP #### [facility] [address] [place] [address] Dr. Risa Patterson Chloride [Moles/Vol] 108 mmol/L Critically high 98-107 [facility] Comment on above: Performed By: #### C MP #### [facility] [address] [place] [address] Dr. Risa Patterson CO2 [Moles/Vol] 29.8 mmol/L Normal 21.0-32.0 [facility] Comment on above: Performed By: #### C MP #### [facility] [address] [place] [address] Dr. Risa Patterson Creatinine [Mass/Vol] 1.26 mg/dL Normal 0.70-1.30 [facility] Comment on above: Performed By: #### C MP #### [facility] [address] [place] [address] Dr. Risa Patterson EGFR-AF [place] >60 Normal >=60 [facility] Comment on above: Performed By: #### C MP #### [facility] [address] [place] [address] Dr. Risa Patterson EGFR-NON AF [place] 58 mL/min/1.73m2 Critically low >=60 [facility] Comment on above: Performed By: #### C MP #### [facility] [address] [place] [address] Dr. Risa Patterson Globulin (S) [Mass/Vol] 3.6 g/dL Normal [facility] Comment on above: Performed By: #### C MP #### [facility] [address] [place] [address] Dr. Risa Patterson Glucose [Mass/Vol] 114 mg/dL Critically high 74-106 [facility] Comment on above: Performed By: #### C MP #### [facility] [address] [address] [address] Risa Patterson Potassium [Moles/Vol] 4.1 mmol/L Normal 3.5-5.1 [facility] Comment on above: Performed By: #### C MP #### [facility] [address] [address] [address] Risa Patterson Protein [Mass/Vol] 6.5 g/dL Normal 6.4-8.2 [facility] Comment on above: Performed By: #### C MP #### [facility] [address] [address] [address] Risa Patterson Sodium [Moles/Vol] 143 mmol/L Normal 136-145 [facility] Comment on above: Performed By: #### C MP #### [facility] [address] [place] [address] Dr. Risa Patterson Urea nitrogen [Mass/Vol] 20.0 mg/dL Critically high 7.0-18.0 [facility] Comment on above: Performed By: #### C MP #### [facility] [address] [address] [address] Risa Patterson Urea nitrogen/Creatinine [Mass ratio] 15.9 mg/mg Normal [facility] Comment on above: Performed By: #### C MP #### [facility] [address] [place] [address] Dr. Risa Patterson SED RATE WESTERGRENon 2022 SED RATE 26 mm/hr Critically high <=20 [facility] Comment on above: Performed By: #### C MADM, BNP, BMP #### [facility] [address] [address] [address] Risa Patterson BNPon 06-26-2022 Natriuretic peptide B (Bld) [Mass/Vol] 82.0 pg/mL Normal <=900.0 [facility] Comment on above: Performed By: #### C MREP #### [facility] [address] [address] [address] Risa Patterson CBC AUTO DIFFon 06-26-2022 BASO # 0.1 103/ul Normal 0.0-0.1 [facility] Comment on above: Performed By: #### C MREP #### [facility] [address] [place] [address] Dr. Risa Patterson Basophils/100 WBC (Bld) 0.7 % Normal 0.2-2.0 [facility] Comment on above: Performed By: #### C MREP #### [facility] [address] [place] [address] Dr. Risa Patterson EO # 0.4 103/ul Normal 0.0-0.7 [facility] Comment on above: Performed By: #### C MREP #### [facility] [address] [place] [address] Dr. Risa Patterson Eosinophils/100 WBC (Bld) 3.9 % Normal 0.9-7.0 [facility] Comment on above: Performed By: #### C MREP #### [facility] [address] [place] [address] Dr. Risa Patterson Erythrocyte distribution width (RBC) [Ratio] 15.0 % Normal 11.0-15.0 [facility] Comment on above: Performed By: #### C MREP #### [facility] [address] [place] [address] Dr. Risa Patterson Hematocrit (Bld) [Volume fraction] 39.1 % Critically low 42.0-54.0 [facility] Comment on above: Performed By: #### C MREP #### [facility] [address] [place] [address] Dr. Risa Patterson Hemoglobin (Bld) [Mass/Vol] 12.3 g/dL Critically low 14.0-18.0 [facility] Comment on above: Performed By: #### C MREP #### [facility] [address] [place] [address] Dr. Risa Patterson IG # 0.07 10e3/ul Critically high 0.00-0.03 [facility] Comment on above: Performed By: #### C MREP #### [facility] [address] [place], [place] [id number] Dr. Risa Patterson IG % 0.8 % Critically high 0.0-0.5 [facility] Comment on above: Performed By: #### C MREP #### [facility] [address] [place] [address] Dr. Risa Patterson LYMPH # 1.0 103/ul Critically low 1.2-3.8 [facility] Comment on above: Performed By: #### C MREP #### [facility] [address] [place] [address] Dr. Risa Patterson Lymphocytes/100 WBC (Bld) 11.3 % Critically low 20.5-60.0 [facility] Comment on above: Performed By: #### C MREP #### [facility] [address] [place] [address] Dr. Risa Patterson MANUAL DIFF REQ NO Normal [facility] Comment on above: Performed By: #### C MREP #### [facility] [address] [place] [address] Dr. Risa Patterson MCH (RBC) [Entitic mass] 30.9 pg Normal 25.9-34.0 [facility] Comment on above: Performed By: #### C MREP #### [facility] [address] [place] [address] Dr. Risa Patterson MCHC (RBC) [Mass/Vol] 31.5 g/dL Normal 29.9-35.2 [facility] Comment on above: Performed By: #### C MREP #### [facility] [address] [place] [address] Dr. Risa Patterson MCV (RBC) [Entitic vol] 98.2 fL Critically high 80.0-94.0 [facility] Comment on above: Performed By: #### C MREP #### [facility] [address] [place] [address] Dr. Risa Patterson MONO # 1.1 103/ul Critically high 0.3-0.8 [facility] Comment on above: Performed By: #### C MREP #### [facility] [address] [place] [address] Dr. Risa Patterson Monocytes/100 WBC (Bld) 12.1 % Critically high 1.7-12.0 [facility] Comment on above: Performed By: #### C MREP #### [facility] [address] [place] [address] Dr. Risa Patterson NEUT # 6.4 103/ul Normal 1.4-6.5 [facility] Comment on above: Performed By: #### C MREP #### [facility] [address] [place] [address] Dr. Risa Patterson Neutrophils/100 WBC (Bld) 71.2 % Normal 43.0-75.0 [facility] Comment on above: Performed By: #### C MREP #### [facility] [address] [place] [address] Dr. Risa Patterson Platelet mean volume (Bld) [Entitic vol] 9.2 fL Critically low 9.5-13.5 [facility] Comment on above: Performed By: #### C MREP #### [facility] [address] [place] [address] Dr. Risa Patterson PLT 285 103/ul Normal 150-450 [facility] Comment on above: Performed By: #### C MREP #### [facility] [address] [place] [address] Dr. Risa Patterson RBC 3.98 106/ul Critically low 4.70-6.10 [facility] Comment on above: Performed By: #### C MREP #### [facility] [address] [place] [address] Dr. Risa Patterson WBC 9.0 103/ul Normal 4.0-11.0 [facility] Comment on above: Performed By: #### C MREP #### [facility] [address] [place] [address] Dr. Risa Patterson Orders Onlyon 06-26-2022 Orders Only [id number] Miguel Felix 1960 M Date Provider Department Center 06/26/2022 MELQUIADES JEFFERSON [facility] Family History Problem Relation Age of Onset No Known Problems Mother No Known Problems Father Family Status - Relation Status Age at Mother Father Normal [facility] PROF CHEM 8 (BAS METB)on Anion gap [Moles/Vol] 12.3 mmol/L Normal [facility] Comment on above: Performed By: #### C MREP #### [facility] [address] [address] [address] Risa Patterson Calcium [Mass/Vol] 9.3 mg/dL Normal 8.5-10.1 [facility] Comment on above: Performed By: #### C MREP #### [facility] [address] [address] [address] Risa Patterson Chloride [Moles/Vol] 106 mmol/L Normal 98-107 [facility] Comment on above: Performed By: #### C MREP #### [facility] [address] [place] [address] Dr. Risa Patterson CO2 [Moles/Vol] 29.2 mmol/L Normal 21.0-32.0 [facility] Comment on above: Performed By: #### C MREP #### [facility] [address] [address] [address] Risa Patterson Creatinine [Mass/Vol] 1.40 mg/dL Critically high 0.70-1.30 [facility] Comment on above: Performed By: #### C MREP #### [facility] [address] [address] [address] Risa Patterson EGFR-AF [place] >60 Normal >=60 [facility] Comment on above: Performed By: #### C MREP #### [facility] [address] [address] [address] Risa Patterson EGFR-NON AF [place] 52 mL/min/1.73m2 Critically low >=60 [facility] Comment on above: Performed By: #### C MREP #### [facility] [address] [address] [address] Risa Patterson Glucose [Mass/Vol] 107 mg/dL Critically high 74-106 [facility] Comment on above: Performed By: #### C MREP #### [facility] [address] [address] [address] Risa Patterson Potassium [Moles/Vol] 4.5 mmol/L Normal 3.5-5.1 [facility] Comment on above: Performed By: #### C MREP #### [facility] [address] [address] [address] Risa Patterson Sodium [Moles/Vol] 143 mmol/L Normal 136-145 [facility] Comment on above: Performed By: #### C MREP #### [facility] [address] [address] [address] Risa Patterson Urea nitrogen [Mass/Vol] 20.0 mg/dL Critically high 7.0-18.0 [facility] Comment on above: Performed By: #### C MREP #### [facility] [address] [address] [address] Risa Patterson Urea nitrogen/Creatinine [Mass ratio] 14.3 mg/mg Normal [facility] Comment on above: Performed By: #### C MREP #### [facility] [address] [address] [address] Risa Patterson Office Visiton 05-31-2022 Follow-up visit [id number] Miguel Felix 1960 M Date Provider Department Center 05/31/2022 [facility]8NIKKIE TREJO [facility] Family History Problem Relation Age of Onset No Known Problems Mother No Known Problems Father Family Status - Relation Status Age at Mother Father Level of Service:20628 [place] OFFICE/OUTPATIENT ESTABLISHED MOD MDM 30-39 MIN Reason for Visit and Comments: Congestive Heart Failure [127] Hyperlipidemia [182] DVT [Other] Normal [facility] Screenson 05-02-2022 Screens [id number] Normal [facility] Ambulatory Visit Summaryon 0 05-01-2022 Ambulatory Visit Summary ELENA FELIX :1960 Visit Date:05/01/2022 Ambulatory Visit Instructions Your Diagnosis BPH with urinary obstruction Chronic prostatitis Epididymal cyst Other obstructive and reflux uropathy Tests Performed Urnls Dip Stick Auto w/o Microscopy POC 02603 Your Care Team Attending Physician - ARABELLA MUNIZ, Jerrod Moya Primary Care Physician - SILVANA LUNDBERG MD This Is Your Medications List tamsulosin (tamsulosin 0.4 mg Cap) Contact prescribing physician if questions or concerns aspirin (Aspir 81) atorvastatin (atorvastatin 40 mg Tab) duloxetine (Cymbalta) folic acid (folic acid 1 mg Tab) leflunomide (Arava 20 mg Tab) methotrexate (methotrexate 2.5 mg Tab) methylPREDNISolone (methylPREDNISolone 4 mg tab dosepak) metoprolol (Metoprolol succinate 25 mg ER Tablet) omeprazole oxaprozin (oxaprozin 600 mg Tab) spironolactone (spironolactone 25 mg Tab) Procedures Performed Colonoscopy, flexible; with removal of tumor(s), polyp(s), or other lesion(s) by snare technique (01/22/2020), Esophagogastroduodenoscopy and biopsy (01/22/2020), Injection of hip using fluoroscopic guidance (05/17/2015), Injection of hip using fluoroscopic guidance (03/08/2015), Back (10/02/2014), Injection of sacroiliac joint using fluoroscopic guidance (06/26/2014), Injection of sacroiliac joint using fluoroscopic guidance (04/06/2014), Radiofrequency denervation of spinal facet joint of lumbar vertebra (02/16/2014), Radiofrequency denervation of spinal facet joint of lumbar vertebra (02/02/2014), Injection of facet joint using fluoroscopic guidance (12/17/2013), Injection of facet joint using fluoroscopic guidance (10/20/2013), Back (2012), right hand surgery. Discharge Vitals Height 188 cm Height 74 in Weight 131.8 kg Weight 289.96 lb BMI 37.29 What to do next Scheduled Follow-Up Appointments Sunday 8:15 AM EST With: ARABELLA MUNIZ, Jerrod Moya Where: [facility] Patient Educationon 05-01-19 23 Patient Education Urology Benign Prostatic Hyperplasia Benign prostatic hyperplasia (BPH) is an enlarged prostate gland that is caused by the normal aging process and not by cancer. The prostate is a walnut-sized gland that is involved in the production of semen. It is located in front of the rectum and below the bladder. The bladder stores urine and the urethra is the tube that carries the urine out of the body. The prostate may get bigger as a man gets older. An enlarged prostate can press on the urethra. This can make it harder to pass urine. The build-up of urine in the bladder can cause infection. Back pressure and infection may progress to bladder damage and kidney (renal) failure. What are the causes? This condition is part of a normal aging process. However, not all men develop problems from this condition. If the prostate enlarges away from the urethra, urine flow will not be blocked. If it enlarges toward the urethra and compresses it, there will be problems passing urine. What increases the risk? This condition is more likely to develop in men over the age of 50 years. What are the signs or symptoms? Symptoms of this condition include: ? Getting up often during the night to urinate. ? Needing to urinate frequently during the day. ? Difficulty starting urine flow. ? Decrease in size and strength of your urine stream. ? Leaking (dribbling) after urinating. ? Inability to pass urine. This needs immediate treatment. ? Inability to completely empty your bladder. ? Pain when you pass urine. This is more common if there is also an infection. ? Urinary tract infection (UTI). How is this diagnosed? This condition is diagnosed based on your medical history, a physical exam, and your symptoms. Tests will also be done, such as: ? A post-void bladder scan. This measures any amount of urine that may remain in your bladder after you finish urinating. ? A digital rectal exam. In a rectal exam, your health care provider checks your prostate by putting a lubricated, gloved finger into your rectum to feel the back of your prostate gland. This exam detects the size of your gland and any abnormal lumps or growths. ? An exam of your urine (urinalysis). ? A prostate specific antigen (PSA) screening. This is a blood test used to screen for prostate cancer. ? An ultrasound. This test uses sound waves to electronically produce a picture of your prostate gland. Your health care provider may refer you to a specialist in kidney and prostate diseases (urologist). How is this treated? Once symptoms begin, your health care provider will monitor your condition (active surveillance or watchful waiting). Treatment for this condition will depend on the severity of your condition. Treatment may include: ? Observation and yearly exams. This may be the only treatment needed if your condition and symptoms are mild. ? Medicines to relieve your symptoms, including: ? Medicines to shrink the prostate. ? Medicines to relax the muscle of the prostate. ? Surgery in severe cases. Surgery may include: ? Prostatectomy. In this procedure, the prostate tissue is removed completely through an open incision or with a laparoscope or robotics. ? Transurethral resection of the prostate (TURP). In this procedure, a tool is inserted through the opening at the tip of the penis (urethra). It is used to cut away tissue of the inner core of the prostate. The pieces are removed through the same opening of the penis. This removes the blockage. ? Transurethral incision (TUIP). In this procedure, small cuts are made in the prostate. This lessens the prostate's pressure on the urethra. ? Transurethral microwave thermotherapy (TUMT). This procedure uses microwaves to create heat. The heat destroys and removes a small amount of prostate tissue. ? Transurethral needle ablation (TUNA). This procedure uses radio frequencies to destroy and remove a small amount of prostate tissue. ? Interstitial laser coagulation (ILC). This procedure uses a laser to destroy and remove a small amount of prostate tissue. ? Transurethral electrovaporization (TUVP). This procedure uses electrodes to destroy and remove a small amount of prostate tissue. ? Prostatic urethral lift. This procedure inserts an implant to push the lobes of the prostate away from the urethra. Follow these instructions at home: ? Take [id number] and prescription medicines only as told by your health care provider. ? Monitor your symptoms for any changes. Contact your health care provider with any changes. ? Avoid drinking large amounts of liquid before going to bed or out in public. ? Avoid or reduce how much caffeine or alcohol you drink. ? Give yourself time when you urinate. ? Keep all follow-up visits as told by your health care provider. This is important. Contact a health care provider if: ? You have unexplained back pain. ? Your symptoms do not get better with treatment. ? You d (more content not included)... Normal [facility] Urology Office/Clinic Noteon 05-01-2022 Urology Office/Clinic Note Chief Complaint 8m HPI Staff 8m to BPH, chronic prostatitis, epididymal cyst and frequency. PCP checks PSA. No new PSA since last encounter (05/30/21- 2.6) *Flomax 0.4mg BID therapy. IPSS 2 Waking up 1-2x/night to void. Denies any infections since last encounter. Denies scrotal pain/discomfort Denies all other urinary complaints since starting Flomax therapy. History of Present Illness Tests reviewed: reviewed UA I have reviewed the previous health record information and history for this patient from Dr. Bell. I have reviewed and verified the staff HPI to be accurate for this encounter. There have been no associated fever, chills, flank pain, or blood in the urine. Denies any urinary infections since last encounter. Review of Systems PHQ Score Initial Depression Screen Score: 0 ROS - Provider Constitutional: denies weight loss, denies hot flashes. Eyes: denies eye problems. Gastrointestinal: denies nausea, denies vomiting. Cardiovascular: denies chest pain or angina. Integumentary: no dryness Musculoskeletal: denies musculoskeletal symptoms. ENMT: denies otolaryngeal symptoms. Respiratory: no shortness of breath. Heme/Lymph: denies easy bleeding tendency, denies easy bruising tendency. Psychiatric: no confusion, no anxiety. Genitourinary: denies dysuria, denies hematuria, denies discharge, denies urinary frequency, denies urinary hesitancy, denies nocturia, denies incontinence, denies genital sores, denies decreased libido, and denies erectile dysfunction. Physical Exam Vitals & Measurements HT: 74 in HT: 188 cm WT: 131.8 kg WT: 289.96 lb BMI: 37.29 General Appearance: alert, no distress, well nourished, well developed male. Genitourinary: normal scrotum, normal testes, normal urethra, normal epididymis, normal vas deferens/spermatic cord. Flank Pain: none. Bladder: nonpalpable. Assessment/Plan 1. BPH with urinary obstruction (N40.1: Benign prostatic hyperplasia with lower urinary tract symptoms) Pt currently on Tamsulosin 0.4mg BID therapy and will call our office for refills. PCP is monitoring PSA levels, most recent PSA 2.60 done 05/30/21. Nocturia 1-2x/night. Pt denies any bothersome urinary sxs at this time. Overall pt is doing well. 2. Chronic prostatitis (N41.1: Chronic prostatitis) Pt took Levaquin 500mg po qd for 14 days. Pt denies any recent episodes. UA today is negative for blood and infection. 3. Epididymal cyst (N50.3: Cyst of epididymis) Scrotal US done 01/02/2020 shows 8mm right epididymal cyst. Pt currently denies any pain at this time. Will monitor and manage if any pain manifests. If he has any questions or concerns, he is to call the office. Acknowledges/understands. Other obstructive and reflux uropathy (N13.8: Other obstructive and reflux uropathy) Follow-up With When Contact Information ARABELLA MUNIZ, Jerrod Moya, VERENICE In 1 year [facility] [address], [place] [id number]- [phone] Additional Instructions: Patient Education Benign Prostatic Hyperplasia I, Mery Bergman, personally scribed for Dr. Bell on 05/01/2022 10:51:33. . Documentation recorded by the [email or web address] ko, accurately reflects the services(s) I performed and decisions made by me. Authenticated by Dr. Bell on 05/01/2022 10:54:02. Problem List/Past Medical History Ongoing Ankylosing spondylitis Arthritis BPH with urinary obstruction Chronic prostatitis Clostridium difficile diarrhea Epididymal cyst GERD - Gastro-esophageal reflux disease Heart disease Kidney stone Peripheral neuropathy Urinary frequency Historical Arthritis Tachycardia Procedure/Surgical History Colonoscopy, flexible; with removal of tumor(s), polyp(s), or other lesion(s) by snare technique (01/22/2020), Esophagogastroduodenoscopy and biopsy (01/22/2020), Injection of hip using fluoroscopic guidance (05/17/2015), Injection of hip using fluoroscopic guidance (03/08/2015), Back (10/02/2014), Injection of sacroiliac joint using fluoroscopic guidance (06/26/2014), Injection of sacroiliac joint using fluoroscopic guidance (04/06/2014), Radiofrequency denervation of spinal facet joint of lumbar vertebra (02/16/2014), Radiofrequency denervation of spinal facet joint of lumbar vertebra (02/02/2014), Injection of facet joint using fluoroscopic guidance (12/17/2013), Injection of facet joint using fluoroscopic guidance (10/20/2013), Back (2012), right hand surgery. Medications Arava 20 mg Tab, 20 mg= 1 tab(s), Oral, Daily Aspir 81, 81 mg, Oral, Daily atorvastatin 40 mg Tab Cymbalta, 60 mg, Oral, BID folic acid 1 mg Tab, 1 mg= 1 tab(s), Oral, Daily methotrexate 2.5 mg Tab, 25 mg= 10 tab(s), Oral, q7day methylPREDNISolone 4 mg tab dosepak Metoprolol succinate 25 mg ER Tablet, 25 mg, Oral, Daily omeprazole, 20 mg, Oral, Daily oxaprozin 600 mg Tab spironolactone 25 mg Tab tamsulosin 0.4 mg Cap, 0.4 mg= 1 cap(s), Oral, BID, 3 refills (more content not included)... Normal [facility] Comment on above: Result Comment: Elec tronically Signed By: Jerrod BELL MD\.br\Date and Time Signed: 05/01/22 10:54 EST\.br\Electronically Co-Signed By: Mery Bergman\.br\Date and Time Co-Signed: 05/01/22 10:[address] CHEST HI RESOLUTIONon CT CHEST HI RESOLUTION EXAMINATION: CT C HEST HI RESOLUTION HISTORY: Dyspnea on exertion ; chronic shortness of breath, abnormal pulmonary function test COMPARISON: CTA chest 09/20/2021 TECHNIQUE: Axial images were obtained at 10 mm intervals during inspiration and expiration in the supine and prone positions. No IV contrast given. Dose reduction techniques were achieved by using automated exposure control and/or adjustment of mA and/or kV according to patient size and/or use of iterative reconstruction technique. FINDINGS: LUNGS: No visible pulmonary disease. PLEURA: No mass, effusion, or pneumothorax. ARABELLA: No mass or adenopathy. MEDIASTINUM: No mass or adenopathy. CHEST WALL: No mass or axillary adenopathy mechanical fusion of lower thoracic spine. Old healed left rib fractures. LIMITED ABDOMEN: Small stone within noninflamed gallbladder. Stable 2.6 cm round fluid collection/cyst within inferior aspect of spleen. Limited images of the upper abdomen. OTHER: Negative. IMPRESSION: 1. No acute cardiopulmonary process. 2. No significant chronic interstitial changes or fibrosis. 3. Cholelithiasis. 4. Stable splenic cyst. Electronically authenticated by: ASHER SOLANO Date: 2022-04-25 11:06 Normal [facility] HEMOGLOBINon 04-10-2022 Hemoglobin (Bld) [Mass/Vol] 11.9 g/dL Critically low 14.0-18.0 [facility] Comment on above: Performed By: #### C MADM, BNP, BMP #### [facility] [address] [place] [address] Dr. Risa Patterson CBC AUTO DIFFon 04-03-2022 BASO # 0.0 103/ul Normal 0.0-0.1 [facility] Comment on above: Performed By: #### C MADM, BNP, BMP #### [facility] [address] [place] [address] Dr. Risa Patterson Basophils/100 WBC (Bld) 0.5 % Normal 0.2-2.0 [facility] Comment on above: Performed By: #### C MADM, BNP, BMP #### [facility] [address] [place] [address] Dr. Risa Patterson EO # 0.3 103/ul Normal 0.0-0.7 [facility] Comment on above: Performed By: #### C MADM, BNP, BMP #### [facility] [address] [place] [address] Dr. Risa Patterson Eosinophils/100 WBC (Bld) 5.3 % Normal 0.9-7.0 [facility] Comment on above: Performed By: #### C MADM, BNP, BMP #### [facility] [address] [place] [address] Dr. Risa Patterson Erythrocyte distribution width (RBC) [Ratio] 16.3 % Critically high 11.0-15.0 [facility] Comment on above: Performed By: #### C MADM, BNP, BMP #### [facility] [address] [place], [place] [id number] Dr. Risa Patterson Hematocrit (Bld) [Volume fraction] 38.4 % Critically low 42.0-54.0 [facility] Comment on above: Performed By: #### C MADM, BNP, BMP #### [facility] [address] [place] [address] Dr. Risa Patterson Hemoglobin (Bld) [Mass/Vol] 12.0 g/dL Critically low 14.0-18.0 [facility] Comment on above: Performed By: #### C MADM, BNP, BMP #### [facility] [address] [place] [address] Dr. Risa Patterson IG # 0.04 10e3/ul Critically high 0.00-0.03 [facility] Comment on above: Performed By: #### C MADM, BNP, BMP #### [facility] [address] [place] [address] Dr. Risa Patterson IG % 0.7 % Critically high 0.0-0.5 [facility] Comment on above: Performed By: #### C MADM, BNP, BMP #### [facility] [address] [place] [address] Dr. Risa Patterson LYMPH # 1.1 103/ul Critically low 1.2-3.8 [facility] Comment on above: Performed By: #### C MADM, BNP, BMP #### [facility] [address] [place] [address] Dr. Risa Patterson Lymphocytes/100 WBC (Bld) 18.7 % Critically low 20.5-60.0 [facility] Comment on above: Performed By: #### C MADM, BNP, BMP #### [facility] [address] [place] [address] Dr. Risa Patterson MANUAL DIFF REQ NO Normal [facility] Comment on above: Performed By: #### C MADM, BNP, BMP #### [facility] [address] [place] [address] Dr. Risa Patterson MCH (RBC) [Entitic mass] 31.3 pg Normal 25.9-34.0 [facility] Comment on above: Performed By: #### C MADM, BNP, BMP #### [facility] [address] [place] [address] Dr. Risa Patterson MCHC (RBC) [Mass/Vol] 31.3 g/dL Normal 29.9-35.2 [facility] Comment on above: Performed By: #### C MADM, BNP, BMP #### [facility] [address] [place] [address] Dr. Risa Patterson MCV (RBC) [Entitic vol] 100.0 fL Critically high 80.0-94.0 [facility] Comment on above: Performed By: #### C MADM, BNP, BMP #### [facility] [address] [place] [address] Dr. Risa Patterson MONO # 0.8 103/ul Normal 0.3-0.8 [facility] Comment on above: Performed By: #### C MADM, BNP, BMP #### [facility] [address] [place] [address] Dr. Risa Patterson Monocytes/100 WBC (Bld) 13.7 % Critically high 1.7-12.0 [facility] Comment on above: Performed By: #### C MADM, BNP, BMP #### [facility] [address] [place] [address] Dr. Risa Patterson NEUT # 3.7 103/ul Normal 1.4-6.5 [facility] Comment on above: Performed By: #### C MADM, BNP, BMP #### [facility] [address] [place] [address] Dr. Risa Patterson Neutrophils/100 WBC (Bld) 61.1 % Normal 43.0-75.0 [facility] Comment on above: Performed By: #### C MADM, BNP, BMP #### [facility] [address] [place] [address] Dr. Risa Patterson Platelet mean volume (Bld) [Entitic vol] 9.5 fL Normal 9.5-13.5 [facility] Comment on above: Performed By: #### C MADM, BNP, BMP #### [facility] [address] [address] [address] Risa Patterson PLT 218 103/ul Normal 150-450 [facility] Comment on above: Performed By: #### C MADM, BNP, BMP #### [facility] [address] [place] [address] Dr. Risa Patterson RBC 3.84 106/ul Critically low 4.70-6.10 [facility] Comment on above: Performed By: #### C MADM, BNP, BMP #### [facility] [address] [place] [address] Dr. Risa Patterson WBC 6.0 103/ul Normal 4.0-11.0 [facility] Comment on above: Performed By: #### C MADM, BNP, BMP #### [facility] [address] [place] [address] Dr. Risa Patterson PROF 14(COMP METB)on 022 Albumin [Mass/Vol] 2.9 g/dL Critically low 3.4-5.0 [facility] Comment on above: Performed By: #### C MADM, BNP, BMP #### [facility] [address] [place] [address] Dr. Risa Patterson Albumin/Globulin [Mass ratio] 0.7 {ratio} Normal [facility] Comment on above: Performed By: #### C MADM, BNP, BMP #### [facility] [address] [place] [address] Dr. Risa Patterson ALP [Catalytic activity/Vol] 66 U/L Normal 46-116 [facility] Comment on above: Performed By: #### C MADM, BNP, BMP #### [facility] [address] [place] [address] Dr. Risa Patterson ALT [Catalytic activity/Vol] 33 U/L Normal 16-63 [facility] Comment on above: Performed By: #### C MADM, BNP, BMP #### [facility] [address] [place] [address] Dr. Risa Patterson Anion gap [Moles/Vol] 10.7 mmol/L Normal [facility] Comment on above: Performed By: #### C MADM, BNP, BMP #### [facility] [address] [place] [address] Dr. Risa Patterson AST [Catalytic activity/Vol] 24 U/L Normal 15-37 [facility] Comment on above: Performed By: #### C MADM, BNP, BMP #### [facility] [address] [place] [address] Dr. Risa Patterson Bilirubin [Mass/Vol] 0.3 mg/dL Normal 0.2-1.0 [facility] Comment on above: Performed By: #### C MADM, BNP, BMP #### [facility] [address] [place] [address] Dr. Risa Patterson Calcium [Mass/Vol] 9.0 mg/dL Normal 8.5-10.1 [facility] Comment on above: Performed By: #### C MADM, BNP, BMP #### [facility] [address] [place] [address] Dr. Risa Patterson Chloride [Moles/Vol] 106 mmol/L Normal 98-107 [facility] Comment on above: Performed By: #### C MADM, BNP, BMP #### [facility] [address] [place] [address] Dr. Risa Patterson CO2 [Moles/Vol] 31.7 mmol/L Normal 21.0-32.0 [facility] Comment on above: Performed By: #### C MADM, BNP, BMP #### [facility] [address] [place] [address] Dr. Risa Patterson Creatinine [Mass/Vol] 1.18 mg/dL Normal 0.70-1.30 [facility] Comment on above: Performed By: #### C MADM, BNP, BMP #### [facility] [address] [place] [address] Dr. Risa Patterson EGFR-AF [place] >60 Normal >=60 [facility] Comment on above: Performed By: #### C MADM, BNP, BMP #### [facility] [address] [place] [address] Dr. Risa Patterson EGFR-NON AF [place] >60 Normal >=60 [facility] Comment on above: Performed By: #### C MADM, BNP, BMP #### [facility] [address] [place] [address] Dr. Risa Patterson Globulin (S) [Mass/Vol] 3.9 g/dL Normal [facility] Comment on above: Performed By: #### C MADM, BNP, BMP #### [facility] [address] [place] [address] Dr. Risa Patterson Glucose [Mass/Vol] 99 mg/dL Normal 74-106 [facility] Comment on above: Performed By: #### C MADM, BNP, BMP #### [facility] [address] [place] [address] Dr. Risa Patterson Potassium [Moles/Vol] 4.4 mmol/L Normal 3.5-5.1 [facility] Comment on above: Performed By: #### C MADM, BNP, BMP #### [facility] [address] [place] [address] Dr. Risa Patterson Protein [Mass/Vol] 6.8 g/dL Normal 6.4-8.2 [facility] Comment on above: Performed By: #### C MADM, BNP, BMP #### [facility] [address] [place] [address] Dr. Risa Patterson Sodium [Moles/Vol] 144 mmol/L Normal 136-145 [facility] Comment on above: Performed By: #### C MADM, BNP, BMP #### [facility] [address] [place] [address] Dr. Risa Patterson Urea nitrogen [Mass/Vol] 17.0 mg/dL Normal 7.0-18.0 [facility] Comment on above: Performed By: #### C MADM, BNP, BMP #### [facility] [address] [place] [address] Dr. Risa Patterson Urea nitrogen/Creatinine [Mass ratio] 14.4 mg/mg Normal [facility] Comment on above: Performed By: #### C MADM, BNP, BMP #### [facility] [address] [place] [address] Dr. Risa Patterson SED RATE WESTERGREN 2021 SED RATE 66 mm/hr Critically high <=20 [facility] Comment on above: Performed By: #### C MADM, BNP, BMP #### [facility] [address] [place] [address] Dr. Risa Patterson CBC AUTO DIFFon 01-02-2022 BASO # 0.1 103/ul Normal 0.0-0.1 [facility] Comment on above: Performed By: #### C MADM, BNP, BMP #### [facility] [address] [place] [address] Dr. Risa Patterson Basophils/100 WBC (Bld) 1.1 % Normal 0.2-2.0 [facility] Comment on above: Performed By: #### C MADM, BNP, BMP #### [facility] [address] [place] [address] Dr. Risa Patterson EO # 0.3 103/ul Normal 0.0-0.7 [facility] Comment on above: Performed By: #### C MADM, BNP, BMP #### [facility] [address] [place] [address] Dr. Risa Patterson Eosinophils/100 WBC (Bld) 7.1 % Critically high 0.9-7.0 [facility] Comment on above: Performed By: #### C MADM, BNP, BMP #### [facility] [address] [place] [address] Dr. Risa Patterson Erythrocyte distribution width (RBC) [Ratio] 17.2 % Critically high 11.0-15.0 [facility] Comment on above: Performed By: #### C MADM, BNP, BMP #### [facility] [address] [place] [address] Dr. Risa Patterson Hematocrit (Bld) [Volume fraction] 34.0 % Critically low 42.0-54.0 [facility] Comment on above: Performed By: #### C MADM, BNP, BMP #### [facility] [address] [place] [address] Dr. Risa Patterson Hemoglobin (Bld) [Mass/Vol] 10.6 g/dL Critically low 14.0-18.0 [facility] Comment on above: Performed By: #### C MADM, BNP, BMP #### [facility] [address] [place] [address] Dr. Risa Patterson IG # 0.02 10e3/ul Normal 0.00-0.03 [facility] Comment on above: Performed By: #### C MADM, BNP, BMP #### [facility] [address] [place] [address] Dr. Risa Patterson IG % 0.4 % Normal 0.0-0.5 [facility] Comment on above: Performed By: #### C MADM, BNP, BMP #### [facility] [address] [place] [address] Dr. Risa Patterson LYMPH # 1.0 103/ul Critically low 1.2-3.8 [facility] Comment on above: Performed By: #### C MADM, BNP, BMP #### [facility] [address] [place] [address] Dr. Risa Patterson Lymphocytes/100 WBC (Bld) 22.9 % Normal 20.5-60.0 [facility] Comment on above: Performed By: #### C MADM, BNP, BMP #### [facility] [address] [place] [address] Dr. Risa Patterson MANUAL DIFF REQ NO Normal [facility] Comment on above: Performed By: #### C MADM, BNP, BMP #### [facility] [address] [place] [address] Dr. Risa Patterson MCH (RBC) [Entitic mass] 31.2 pg Normal 25.9-34.0 [facility] Comment on above: Performed By: #### C MADM, BNP, BMP #### [facility] [address] [place] [address] Dr. Risa Patterson MCHC (RBC) [Mass/Vol] 31.2 g/dL Normal 29.9-35.2 [facility] Comment on above: Performed By: #### C MADM, BNP, BMP #### [facility] [address] [place] [address] Dr. Risa Patterson MCV (RBC) [Entitic vol] 100.0 fL Critically high 80.0-94.0 [facility] Comment on above: Performed By: #### C MADM, BNP, BMP #### [facility] [address] [place] [address] Dr. Risa Patterson MONO # 0.8 103/ul Normal 0.3-0.8 [facility] Comment on above: Performed By: #### C MADM, BNP, BMP #### [facility] [address] [place] [address] Dr. Risa Patterson Monocytes/100 WBC (Bld) 18.7 % Critically high 1.7-12.0 [facility] Comment on above: Performed By: #### C MADM, BNP, BMP #### [facility] [address] [place] [address] Dr. Risa Patterson NEUT # 2.2 103/ul Normal 1.4-6.5 [facility] Comment on above: Performed By: #### C MADM, BNP, BMP #### [facility] [address] [place] [address] Dr. Risa Patterson Neutrophils/100 WBC (Bld) 49.8 % Normal 43.0-75.0 [facility] Comment on above: Performed By: #### C MADM, BNP, BMP #### [facility] [address] [place] [address] Dr. Risa Patterson Platelet mean volume (Bld) [Entitic vol] 10.0 fL Normal 9.5-13.5 [facility] Comment on above: Performed By: #### C MADM, BNP, BMP #### [facility] [address] [place] [address] Dr. Risa Patterson PLT 232 103/ul Normal 150-450 [facility] Comment on above: Performed By: #### C MADM, BNP, BMP #### [facility] [address] [place] [address] Dr. Risa Patterson RBC 3.40 106/ul Critically low 4.70-6.10 [facility] Comment on above: Performed By: #### C MADM, BNP, BMP #### [facility] [address] [place] [address] Dr. Risa Patterson WBC 4.5 103/ul Normal 4.0-11.0 [facility] Comment on above: Performed By: #### C MADM, BNP, BMP #### [facility] [address] [place] [address] Dr. Risa Patterson PROF 14(COMP METB)on 022 Albumin [Mass/Vol] 2.8 g/dL Critically low 3.4-5.0 [facility] Comment on above: Performed By: #### C MREP #### [facility] [address] [place] [address] Dr. Risa Patterson Albumin/Globulin [Mass ratio] 0.8 {ratio} Normal [facility] Comment on above: Performed By: #### C MREP #### [facility] [address] [place] [address] Dr. Risa Patterson ALP [Catalytic activity/Vol] 63 U/L Normal 46-116 [facility] Comment on above: Performed By: #### C MREP #### [facility] [address] [place] [address] Dr. Risa Patterson ALT [Catalytic activity/Vol] 29 U/L Normal 16-63 [facility] Comment on above: Performed By: #### C MREP #### [facility] [address] [place] [address] Dr. Risa Patterson Anion gap [Moles/Vol] 10.7 mmol/L Normal [facility] Comment on above: Performed By: #### C MREP #### [facility] [address] [place] [address] Dr. Risa Patterson AST [Catalytic activity/Vol] 23 U/L Normal 15-37 [facility] Comment on above: Performed By: #### C MREP #### [facility] [address] [place] [address] Dr. Risa Patterson Bilirubin [Mass/Vol] 0.2 mg/dL Normal 0.2-1.0 [facility] Comment on above: Performed By: #### C MREP #### [facility] [address] [place] [address] Dr. Risa Patterson Calcium [Mass/Vol] 8.5 mg/dL Normal 8.5-10.1 [facility] Comment on above: Performed By: #### C MREP #### [facility] [address] [place] [address] Dr. Risa Patterson Chloride [Moles/Vol] 109 mmol/L Critically high 98-107 [facility] Comment on above: Performed By: #### C MREP #### [facility] [address] [place] [address] Dr. Risa Patterson CO2 [Moles/Vol] 28.7 mmol/L Normal 21.0-32.0 [facility] Comment on above: Performed By: #### C MREP #### [facility] [address] [place] [address] Dr. Risa Patterson Creatinine [Mass/Vol] 1.05 mg/dL Normal 0.70-1.30 [facility] Comment on above: Performed By: #### C MREP #### [facility] [address] [place] [address] Dr. Risa Patterson EGFR-AF [place] >60 Normal >=60 [facility] Comment on above: Performed By: #### C MREP #### [facility] [address] [place] [address] Dr. Risa Patterson EGFR-NON AF [place] >60 Normal >=60 [facility] Comment on above: Performed By: #### C MREP #### [facility] [address] [place] [address] Dr. Risa Patterson Globulin (S) [Mass/Vol] 3.5 g/dL Normal [facility] Comment on above: Performed By: #### C MREP #### [facility] [address] [place] [address] Dr. Risa Patterson Glucose [Mass/Vol] 82 mg/dL Normal 74-106 [facility] Comment on above: Performed By: #### C MREP #### [facility] [address] [address] [address] Risa Patterson Potassium [Moles/Vol] 4.5 mmol/L Normal 3.5-5.1 [facility] Comment on above: Performed By: #### C MREP #### [facility] [address] [address] [address] Risa Patterson Protein [Mass/Vol] 6.3 g/dL Critically low 6.4-8.2 [facility] Comment on above: Performed By: #### C MREP #### [facility] [address] [address] [address] Risa Patterson Sodium [Moles/Vol] 144 mmol/L Normal 136-145 [facility] Comment on above: Performed By: #### C MREP #### [facility] [address] [address] [address] Risa Patterson Urea nitrogen [Mass/Vol] 16.0 mg/dL Normal 7.0-18.0 [facility] Comment on above: Performed By: #### C MREP #### [facility] [address] [address] [address] Risa Patterson Urea nitrogen/Creatinine [Mass ratio] 15.2 mg/mg Normal [facility] Comment on above: Performed By: #### C MREP #### [facility] [address] [address] [address] Risa Patterson SED RATE [facility] 2021 SED RATE 42 mm/hr Critically high <=20 [facility] Comment on above: Performed By: #### C MADM, BNP, BMP #### [facility] [address] [address] [address] Risa Patterson CBC W Auto Differential pane l (Bld)on 12-28-2021 Abs Immature Gran <0.10 k/uL [facility] Basophils (Bld) [#/Vol] 0.04 10*3/uL <0.11 k/uL [facility] Basophils/100 WBC (Bld) 0.7 % [facility] Differential cell count method Nom (Bld) Auto [facility] Eosinophils (Bld) [#/Vol] 0.30 10*3/uL <0.46 k/uL [facility] Eosinophils/100 WBC (Bld) 5.5 % [facility] Erythrocyte distribution width (RBC) [Ratio] 18.1 % High 11.5 - 15.0 % [facility] Hematocrit (Bld) [Volume fraction] 34.6 % Low 39.0 - 51.0 % [facility] Hemoglobin (Bld) [Mass/Vol] 10.9 g/dL Low 13.0 - 17.0 g/dL [facility] Immature Gran % 0.4 % [facility] Lymphocytes (Bld) [#/Vol] 0.95 10*3/uL Low 1.00 - 4.00 k/uL [facility] Lymphocytes/100 WBC (Bld) 17.4 % [facility] MCH (RBC) [Entitic mass] 31.3 pg 26.0 - 34.0 pg [facility] MCHC (RBC) [Mass/Vol] 31.5 g/dL 30.5 - 36.0 g/dL [facility] MCV (RBC) [Entitic vol] 99.4 fL 80.0 - 100.0 fL [facility] Monocytes (Bld) [#/Vol] 0.69 10*3/uL <0.87 k/uL [facility] Monocytes/100 WBC (Bld) 12.7 % [facility] Neutrophils (Bld) [#/Vol] 3.45 10*3/uL 1.45 - 7.50 k/uL [facility] Neutrophils/100 WBC (Bld) 63.3 % [facility] Nucleated RBC (Bld) [#/Vol] <0.01 k/uL [facility] Nucleated RBC/100 WBC (Bld) [Ratio] 0.0 /100 WBC [facility] Platelet mean volume (Bld) [Entitic vol] 10.0 fL 9.0 - 12.7 fL [facility] Platelets (Bld) [#/Vol] 230 10*3/uL 150 - 400 k/uL [facility] RBC (Bld) [#/Vol] 3.48 10*6/uL Low 4.20 - 6.00 m/uL [facility] WBC (Bld) [#/Vol] 5.45 10*3/uL 3.70 - 11.00 k/uL [facility] Comprehensive metabolic 2000 panelon 12-28-2021 Albumin [Mass/Vol] 3.5 g/dL Low 3.9 - 4.9 g/dL [facility] ALP [Catalytic activity/Vol] 69 U/L 38 - 113 U/L [facility] ALT [Catalytic activity/Vol] 23 U/L 10 - 54 U/L [facility] Anion gap [Moles/Vol] 6 mmol/L Low 9 - 18 mmol/L [facility] AST [Catalytic activity/Vol] 27 U/L 14 - 40 U/L [facility] Bilirubin [Mass/Vol] 0.4 mg/dL 0.2 - 1 .3 mg/dL [facility] Calcium [Mass/Vol] 9.2 mg/dL 8.5 - 10. 2 mg/dL [facility] Chloride [Moles/Vol] 110 mmol/L High 97 - 10 5 mmol/L [facility] CO2 [Moles/Vol] 27 mmol/L 22 - 30 mmol/L [facility] Creatinine [Mass/Vol] 1.05 mg/dL 0.73 - 1.22 mg/dL [facility] Estimated Glomerular Filtration Rate 81 mL/min/1.73m >=60 mL/min/1.7 3m [facility] Glucose [Mass/Vol] 109 mg/dL High 74 - 99 mg/dL [facility] Potassium [Moles/Vol] 3.9 mmol/L 3.7 - 5.1 mmol/L [facility] Protein [Mass/Vol] 6.0 g/dL Low 6.3 - 8.0 g/dL [facility] Sodium [Moles/Vol] 143 mmol/L 136 - 144 mmol/L [facility] Urea nitrogen [Mass/Vol] 17 mg/dL 9 - 24 mg/dL [facility] LD LACTATE DEHYDROon 022 LDH [Catalytic activity/Vol] 270 U/L High 135 - 225 U/L [facility] CBC AUTO DIFFon 12-15-2021 BASO # 0.0 103/ul Normal 0.0-0.1 [facility] Comment on above: Performed By: #### C BC #### [facility] [address] [address] [address] Risa Patterson Basophils/100 WBC (Bld) 0.7 % Normal 0.2-2.0 [facility] Comment on above: Performed By: #### C BC #### [facility] [address] [place] [address] Dr. Risa Patterson EO # 0.2 103/ul Normal 0.0-0.7 [facility] Comment on above: Performed By: #### C BC #### [facility] [address] [place] [address] Dr. Risa Patterson Eosinophils/100 WBC (Bld) 3.6 % Normal 0.9-7.0 [facility] Comment on above: Performed By: #### C BC #### [facility] [address] [place] [address] Dr. Risa Patterson Erythrocyte distribution width (RBC) [Ratio] 17.4 % Critically high 11.0-15.0 [facility] Comment on above: Performed By: #### C BC #### [facility] [address] [place] [address] Dr. Risa Patterson Hematocrit (Bld) [Volume fraction] 36.2 % Critically low 42.0-54.0 [facility] Comment on above: Performed By: #### C BC #### [facility] [address] [place] [address] Dr. Risa Ptaterson Hemoglobin (Bld) [Mass/Vol] 11.3 g/dL Critically low 14.0-18.0 [facility] Comment on above: Performed By: #### C BC #### [facility] [address] [place] [address] Dr. Risa Patterson IG # 0.02 10e3/ul Normal 0.00-0.03 [facility] Comment on above: Performed By: #### C BC #### [facility] [address] [place] [address] Dr. Risa Patterson IG % 0.5 % Normal 0.0-0.5 [facility] Comment on above: Performed By: #### C BC #### [facility] [address] [place] [address] Dr. Risa Patterson LYMPH # 0.9 103/ul Critically low 1.2-3.8 [facility] Comment on above: Performed By: #### C BC #### [facility] [address] [place] [address] Dr. Risa Patterson Lymphocytes/100 WBC (Bld) 20.0 % Critically low 20.5-60.0 [facility] Comment on above: Performed By: #### C BC #### [facility] [address] [place] [address] Dr. Risa Patterson MANUAL DIFF REQ NO Normal [facility] Comment on above: Performed By: #### C BC #### [facility] [address] [place] [address] Dr. Risa Patterson MCH (RBC) [Entitic mass] 30.9 pg Normal 25.9-34.0 [facility] Comment on above: Performed By: #### C BC #### [facility] [address] [place] [address] Dr. Risa Patterson MCHC (RBC) [Mass/Vol] 31.2 g/dL Normal 29.9-35.2 [facility] Comment on above: Performed By: #### C BC #### [facility] [address] [place] [address] Dr. Risa Patterson MCV (RBC) [Entitic vol] 98.9 fL Critically high 80.0-94.0 [facility] Comment on above: Performed By: #### C BC #### [facility] [address] [place] [address] Dr. Risa Patterson MONO # 0.2 103/ul Critically low 0.3-0.8 [facility] Comment on above: Performed By: #### C BC #### [facility] [address] [place] [address] Dr. Risa Patterson Monocytes/100 WBC (Bld) 5.4 % Normal 1.7-12.0 [facility] Comment on above: Performed By: #### C BC #### [facility] [address] [place] [address] Dr. Risa Patterson NEUT # 3.1 103/ul Normal 1.4-6.5 [facility] Comment on above: Performed By: #### C BC #### [facility] [address] [place] [address] Dr. Risa Patterson Neutrophils/100 WBC (Bld) 69.8 % Normal 43.0-75.0 [facility] Comment on above: Performed By: #### C BC #### [facility] [address] [place] [address] Dr. Risa Patterson Platelet mean volume (Bld) [Entitic vol] 9.7 fL Normal 9.5-13.5 [facility] Comment on above: Performed By: #### C BC #### [facility] [address] [place] [address] Dr. Risa Patterson PLT 235 103/ul Normal 150-450 [facility] Comment on above: Performed By: #### C BC #### [facility] [address] [place] [address] Dr. Risa Patterson RBC 3.66 106/ul Critically low 4.70-6.10 [facility] Comment on above: Performed By: #### C BC #### [facility] [address] [place] [address] Dr. Risa Patterson WBC 4.4 103/ul Normal 4.0-11.0 [facility] Comment on above: Performed By: #### C BC #### [facility] [address] [place] [address] Dr. Risa Patterson FERRITINon 12-15-2021 Ferritin [Mass/Vol] 285.0 ng/mL Normal 26.0-388.0 [facility] Comment on above: Performed By: #### F ERR, VITB12 #### [facility] [address] [place] [address] Dr. Risa Patterson VITAMIN B12on 12-15-2021 Cobalamin (Vitamin B12) [Mass/Vol] 460.0 pg/mL Normal 193.0-986. 0 [facility] Comment on above: Performed By: #### F ERR, VITB12 #### [facility] [address] [place] [address] Dr. Risa Patterson CBC AUTO DIFFon 11-29-2021 BASO # 0.0 103/ul Normal 0.0-0.1 [facility] Comment on above: Performed By: #### C MREP #### [facility] [address] [place] [address] Dr. Risa Patterson Basophils/100 WBC (Bld) 0.7 % Normal 0.2-2.0 [facility] Comment on above: Performed By: #### C MREP #### [facility] [address] [place] [address] Dr. Risa Patterson EO # 0.3 103/ul Normal 0.0-0.7 [facility] Comment on above: Performed By: #### C MREP #### [facility] [address] [place] [address] Dr. Risa Patterson Eosinophils/100 WBC (Bld) 6.9 % Normal 0.9-7.0 [facility] Comment on above: Performed By: #### C MREP #### [facility] [address] [place] [address] Dr. Risa Patterson Erythrocyte distribution width (RBC) [Ratio] 17.0 % Critically high 11.0-15.0 [facility] Comment on above: Performed By: #### C MREP #### [facility] [address] [place] [address] Dr. Risa Patterson Hematocrit (Bld) [Volume fraction] 35.4 % Critically low 42.0-54.0 [facility] Comment on above: Performed By: #### C MREP #### [facility] [address] [place] [address] Dr. Risa Patterson Hemoglobin (Bld) [Mass/Vol] 11.0 g/dL Critically low 14.0-18.0 [facility] Comment on above: Performed By: #### C MREP #### [facility] [address] [place] [address] Dr. Risa Patterson IG # 0.01 10e3/ul Normal 0.00-0.03 [facility] Comment on above: Performed By: #### C MREP #### [facility] [address] [address] [address] Risa Patterson IG % 0.2 % Normal 0.0-0.5 [facility] Comment on above: Performed By: #### C MREP #### [facility] [address] [place] [address] Dr. Risa Patterson LYMPH # 0.9 103/ul Critically low 1.2-3.8 [facility] Comment on above: Performed By: #### C MREP #### [facility] [address] [place] [address] Dr. Risa Patterson Lymphocytes/100 WBC (Bld) 19.5 % Critically low 20.5-60.0 [facility] Comment on above: Performed By: #### C MREP #### [facility] [address] [place] [address] Dr. Risa Patterson MANUAL DIFF REQ NO Normal [facility] Comment on above: Performed By: #### C MREP #### [facility] [address] [place] [address] Dr. Risa Patterson MCH (RBC) [Entitic mass] 30.5 pg Normal 25.9-34.0 [facility] Comment on above: Performed By: #### C MREP #### [facility] [address] [place] [address] Dr. Risa Patterson MCHC (RBC) [Mass/Vol] 31.1 g/dL Normal 29.9-35.2 [facility] Comment on above: Performed By: #### C MREP #### [facility] [address] [place] [address] Dr. Risa Patterson MCV (RBC) [Entitic vol] 98.1 fL Critically high 80.0-94.0 [facility] Comment on above: Performed By: #### C MREP #### [facility] [address] [place] [address] Dr. Risa Patterson MONO # 0.6 103/ul Normal 0.3-0.8 [facility] Comment on above: Performed By: #### C MREP #### [facility] [address] [address] [address] Risa Patterson Monocytes/100 WBC (Bld) 14.0 % Critically high 1.7-12.0 [facility] Comment on above: Performed By: #### C MREP #### [facility] [address] [place] [address] Dr. Risa Patterson NEUT # 2.6 103/ul Normal 1.4-6.5 [facility] Comment on above: Performed By: #### C MREP #### [facility] [address] [place] [address] Dr. Risa Patterson Neutrophils/100 WBC (Bld) 58.7 % Normal 43.0-75.0 [facility] Comment on above: Performed By: #### C MREP #### [facility] [address] [place] [address] Dr. Risa Patterson Platelet mean volume (Bld) [Entitic vol] 9.9 fL Normal 9.5-13.5 [facility] Comment on above: Performed By: #### C MREP #### [facility] [address] [place] [address] Dr. Risa Patterson PLT 200 103/ul Normal 150-450 [facility] Comment on above: Performed By: #### C MREP #### [facility] [address] [place] [address] Dr. Risa Patterson RBC 3.61 106/ul Critically low 4.70-6.10 [facility] Comment on above: Performed By: #### C MREP #### [facility] [address] [place] [address] Dr. Risa Patterson WBC 4.4 103/ul Normal 4.0-11.0 [facility] Comment on above: Performed By: #### C MREP #### [facility] [address] [place] [address] Dr. Risa Patterson PROF CHEM 8 (BAS METB)on Anion gap [Moles/Vol] 12.3 mmol/L Normal [facility] Comment on above: Performed By: #### C MADM, BNP, BMP #### [facility] [address] [address] [address] Risa Patterson Calcium [Mass/Vol] 8.9 mg/dL Normal 8.5-10.1 [facility] Comment on above: Performed By: #### C MADM, BNP, BMP #### [facility] [address] [address] [address] Risa Patterson Chloride [Moles/Vol] 109 mmol/L Critically high 98-107 [facility] Comment on above: Performed By: #### C MADM, BNP, BMP #### [facility] [address] [address] [address] Risa Patterson CO2 [Moles/Vol] 27.1 mmol/L Normal 21.0-32.0 [facility] Comment on above: Performed By: #### C MADM, BNP, BMP #### [facility] [address] [place] [address] Dr. Risa Patterson Creatinine [Mass/Vol] 1.04 mg/dL Normal 0.70-1.30 [facility] Comment on above: Performed By: #### C MADM, BNP, BMP #### [facility] [address] [place] [address] Dr. Risa Patterson EGFR-AF [place] >60 Normal >=60 [facility] Comment on above: Performed By: #### C MADM, BNP, BMP #### [facility] [address] [place] [address] Dr. Risa Patterson EGFR-NON AF [place] >60 Normal >=60 [facility] Comment on above: Performed By: #### C MADM, BNP, BMP #### [facility] [address] [place] [address] Dr. Risa Patterson Glucose [Mass/Vol] 112 mg/dL Critically high 74-106 [facility] Comment on above: Performed By: #### C MADM, BNP, BMP #### [facility] [address] [place] [address] Dr. Risa Patterson Potassium [Moles/Vol] 4.4 mmol/L Normal 3.5-5.1 [facility] Comment on above: Performed By: #### C MADM, BNP, BMP #### [facility] [address] [address] [address] Risa Patterson Sodium [Moles/Vol] 144 mmol/L Normal 136-145 [facility] Comment on above: Performed By: #### C MADM, BNP, BMP #### [facility] [address] [address] [address] Risa Patterson Urea nitrogen [Mass/Vol] 19.0 mg/dL Critically high 7.0-18.0 [facility] Comment on above: Performed By: #### C MADM, BNP, BMP #### [facility] [address] [address] [address] Risa Patterson Urea nitrogen/Creatinine [Mass ratio] 18.3 mg/mg Normal [facility] Comment on above: Performed By: #### C MADM, BNP, BMP #### [facility] [address] [address] [address] Risa Patterson TSHon 11-29-2021 TSH 1.618 uIU/mL Normal 0.358-3.74 0 [facility] Comment on above: Performed By: #### C MADM, BNP, BMP #### [facility] [address] [place] [address] Dr. Risa Patterson ECHOCARDIO M/2D COMPLETEon 0 10-04-2021 ECHOCARDIO M/2D COMPLETE Patient: ELENA FELIX Exam Date: 10/04/2021 : 1960 Gender:M Ordering : NIKKIE SIMONMARLORUDY Admission #: [id number] Family : DR SILVANA LUNDBERG M.D. Order #: [id number] CLICK HERE TO VIEW EXAM ECHOCARDIOGRAM REPORT PROCEDURE: CARDIO PULMONARY ECHOCARDIO M/2D COMP INDICATIONS: Nonischemic congestive cardiomyopathy COMPARISON: None. DESCRIPTION: COMPLETE ECHOCARDIOGRAM Real-time transthoracic echocardiography with 2D, M-mode, spectral and color flow Doppler performed. QUALITY: Technical quality was good. LEFT VENTRICLE: Normal chamber size. Normal left ventricular wall thickness. Systolic function is moderately reduced. There is global hypokinesis. LV EF: Moderately reduced left ventricular ejection fraction, (35-40%). DIASTOLIC: Diastolic function is indeterminate. ATRIAL SEPTUM: LEFT ATRIUM: Mildly dilated. RIGHT ATRIUM: Mild dilatation. RIGHT VENTRICLE: Normal chamber size. Normal right ventricular systolic function. TRICUSPID VALVE: Normal mobility and thickness. No stenosis with mild regurgitation. Doppler studies reveal mildly (35-45) elevated right sided pressures. RVSP 45 mmHg MITRAL VALVE: Normal mobility and thickness. No evidence of mitral valve stenosis. There is no mitral annular calcification. Mild mitral regurgitation. AORTIC VALVE: Normal trileaflet appearance. No visible sclerosis. Normal leaflet mobility. No evidence of aortic valve stenosis. No aortic regurgitation. AORTIC ROOT: Normal diameter and appearance. PULMONIC VALVE: Normal thickness and mobility. No stenosis. No regurgitation. PERICARDIUM: No evidence of pericardial effusion. IVC: Not well visualized. PLEURA: CONCLUSION: 1. Left ventricular systolic function is moderately reduced with global hypokinesis. LVEF is 35 to 40%. 2. Normal right ventricular systolic function. 3. No significant valvular dysfunction. 4. Mildly elevated right-sided pressures. 5. No pericardial effusion. Adult Echocardiography Procedure Report Left Ventricle LVEDD (3.7 - 5.6 cm): 5.37 cm LVESD (2.2 - 4.0 cm): 4.75 cm LVIVS thickness (0.6 - 1.2 cm): 1.08 cm LVPW thickness (0.5 - 1.0 cm): 9.04 mm e': 12.60 cm/s E - e': 3.80 LVOT Area (cm2): 6.61 cm2 LVOT Diameter 2.90 cm Left Ventricular Ejection Fraction: 35-40 % Left Atrium LA Volume Index (2D A2C): 27.30 ml/m2 Left Atrium Systolic Dimension: 3.90 cm Left Atrium Systolic Area(A2C): 21.20 cm2 Left Atrium Systolic Area(A4C): 20.40 cm2 Left Atrium Systolic Volume(A2C): 21431 mm3 Left Atrium Systolic Volume(A4C): 78966 mm3 Mitral Valve MV E to A Ratio: 0.70 Mitral Valve A-Wave Peak Velocity: 71.60 cm/s Mitral Valve E-Wave Peak Velocity: 47.90 cm/s Deceleration Time: 230 ms Right Ventricle Aorta AO Root Diam: 3.80 cm Aortic Valve AoV Area (Peak Sarmad): 5.79 cm2 Peak Velocity(Antegrade Flow): 106.00 cm/s Peak Gradient(Antegrade Flow): 4 mm[Hg] Tricuspid Valve Pulmonic Valve Peak Velocity: 94.50 cm/s Peak Gradient: 4 mm[Hg] Right Atrium Dictated by: Alan Leung M.D. on 10/04/2021 at 19:39 Approved by: Alan Leung M.D. on 10/04/2021 at 19:44 Normal [facility] PROF CHEM 8 (BAS METB)on Anion gap [Moles/Vol] 12.3 mmol/L Normal [facility] Comment on above: Performed By: #### C MADM, BNP, BMP #### [facility] [address] [place] [address] Dr. Risa Patterson Calcium [Mass/Vol] 9.3 mg/dL Normal 8.5-10.1 [facility] Comment on above: Performed By: #### C MADM, BNP, BMP #### [facility] [address] [place] [address] Dr. Risa Patterson Chloride [Moles/Vol] 105 mmol/L Normal 98-107 [facility] Comment on above: Performed By: #### C MADM, BNP, BMP #### [facility] [address] [place] [address] Dr. Risa Patterson CO2 [Moles/Vol] 28.2 mmol/L Normal 21.0-32.0 [facility] Comment on above: Performed By: #### C MADM, BNP, BMP #### [facility] [address] [place] [address] Dr. Risa Patterson Creatinine [Mass/Vol] 1.54 mg/dL Critically high 0.70-1.30 [facility] Comment on above: Performed By: #### C MADM, BNP, BMP #### [facility] [address] [place] [address] Dr. Risa Patterson EGFR-AF [place] 56 mL/min/1.73m2 Critically low >=60 [facility] Comment on above: Performed By: #### C MADM, BNP, BMP #### [facility] [address] [place] [address] Dr. Risa Patterson EGFR-NON AF [place] 46 mL/min/1.73m2 Critically low >=60 [facility] Comment on above: Performed By: #### C MADM, BNP, BMP #### [facility] [address] [place] [address] Dr. Risa Patterson Glucose [Mass/Vol] 86 mg/dL Normal 74-106 [facility] Comment on above: Performed By: #### C MADM, BNP, BMP #### [facility] [address] [place] [address] Dr. Risa Patterson Potassium [Moles/Vol] 4.5 mmol/L Normal 3.5-5.1 [facility] Comment on above: Performed By: #### C MADM, BNP, BMP #### [facility] [address] [place] [address] Dr. Risa Patterson Sodium [Moles/Vol] 141 mmol/L Normal 136-145 [facility] Comment on above: Performed By: #### C MADM, BNP, BMP #### [facility] [address] [place] [address] Dr. Risa Patterson Urea nitrogen [Mass/Vol] 18.0 mg/dL Normal 7.0-18.0 [facility] Comment on above: Performed By: #### C MADM, BNP, BMP #### [facility] [address] [place] [address] Dr. Risa Patterson Urea nitrogen/Creatinine [Mass ratio] 11.7 mg/mg Normal [facility] Comment on above: Performed By: #### C MADM, BNP, BMP #### [facility] [address] [place] [address] Dr. Risa Patterson BNPon 09-20-2021 Natriuretic peptide B (Bld) [Mass/Vol] 186.0 pg/mL Normal <=900.0 [facility] Comment on above: Performed By: #### C MADM, BNP, BMP #### [facility] [address] [place] [address] Dr. Risa Patterson CARDIAC ALICIA 3-6on 2 CK [Catalytic activity/Vol] 133 U/L Normal 39-308 [facility] Comment on above: Performed By: #### C MREP #### [facility] [address] [place] [address] Dr. Risa Patterson CK.MB [Mass/Vol] 1.54 ng/mL Normal <=3.60 [facility] Comment on above: Performed By: #### C MREP #### [facility] [address] [place] [address] Dr. Risa Patterson HSTROP 11.9 pg/mL Normal 4.0-76.1 [facility] Comment on above: Result Comment: CUT- OFF POINTS HAVE BEEN ESTABLISHED BASED ON THE FOURTH UNIVERSAL DEFINITIONS OF MYOCARDIAL INFARCTION. THE UPPER REFERENCE LIMIT (URL) OF TROPONIN, DEFINED THE 99TH PERCENTILE OF cTnI DISTRIBUTION IN A REFERENCE POPULATION, HAS BEEN CONFIRMED THE DECISION THRESHOLD FOR MA DIAGNOSIS. Performed By: #### C MREP #### [facility] [address] [place] [address] Dr. Rias Patterson CARDIAC ALICIA ADMITon 022 CK [Catalytic activity/Vol] 136 U/L Normal 39-308 [facility] Comment on above: Performed By: #### C MADM, BNP, BMP #### [facility] [address] [place] [address] Dr. Risa Patterson CK.MB [Mass/Vol] 1.37 ng/mL Normal <=3.60 [facility] Comment on above: Performed By: #### C MADM, BNP, BMP #### [facility] [address] [place] [address] Dr. Risa Patterson HSTROP 12.1 pg/mL Normal 4.0-76.1 [facility] Comment on above: Result Comment: CUT- OFF POINTS HAVE BEEN ESTABLISHED BASED ON THE FOURTH UNIVERSAL DEFINITIONS OF MYOCARDIAL INFARCTION. THE UPPER REFERENCE LIMIT (URL) OF TROPONIN, DEFINED THE 99TH PERCENTILE OF cTnI DISTRIBUTION IN A REFERENCE POPULATION, HAS BEEN CONFIRMED THE DECISION THRESHOLD FOR MA DIAGNOSIS. Performed By: #### C MADM, BNP, BMP #### [facility] [address] [place] [address] Dr. Risa Patterson DCU 129 ng/mL Critically high 16-96 [facility] Comment on above: Performed By: #### C MADM, BNP, BMP #### [facility] [address] [place] [address] Dr. Risa Patterson CBC AUTO DIFFon 09-20-2021 BASO # 0.1 103/ul Normal 0.0-0.1 [facility] Comment on above: Performed By: #### C MREP #### [facility] [address] [place] [address] Dr. Risa Patterson Basophils/100 WBC (Bld) 0.8 % Normal 0.2-2.0 [facility] Comment on above: Performed By: #### C MREP #### [facility] [address] [place] [address] Dr. Risa Patterson EO # 0.5 103/ul Normal 0.0-0.7 [facility] Comment on above: Performed By: #### C MREP #### [facility] [address] [place] [address] Dr. Risa Patterson Eosinophils/100 WBC (Bld) 5.1 % Normal 0.9-7.0 [facility] Comment on above: Performed By: #### C MREP #### [facility] [address] [place] [address] Dr. Risa Patterson Erythrocyte distribution width (RBC) [Ratio] 14.5 % Normal 11.0-15.0 [facility] Comment on above: Performed By: #### C MREP #### [facility] [address] [place] [address] Dr. Risa Patterson Hematocrit (Bld) [Volume fraction] 40.7 % Critically low 42.0-54.0 [facility] Comment on above: Performed By: #### C MREP #### [facility] [address] [place] [address] Dr. Risa Patterson Hemoglobin (Bld) [Mass/Vol] 12.8 g/dL Critically low 14.0-18.0 [facility] Comment on above: Performed By: #### C MREP #### [facility] [address] [place] [address] Dr. Risa Patterson IG # 0.05 10e3/ul Critically high 0.00-0.03 [facility] Comment on above: Performed By: #### C MREP #### [facility] [address] [place] [address] Dr. Risa Patterson IG % 0.5 % Normal 0.0-0.5 [facility] Comment on above: Performed By: #### C MREP #### [facility] [address] [place] [address] Dr. Risa Patterson LYMPH # 1.7 103/ul Normal 1.2-3.8 [facility] Comment on above: Performed By: #### C MREP #### [facility] [address] [place] [address] Dr. Risa Patterson Lymphocytes/100 WBC (Bld) 15.8 % Critically low 20.5-60.0 [facility] Comment on above: Performed By: #### C MREP #### [facility] [address] [place] [address] Dr. Risa Patterson MANUAL DIFF REQ NO Normal [facility] Comment on above: Performed By: #### C MREP #### [facility] [address] [place] [address] Dr. Risa Patterson MCH (RBC) [Entitic mass] 30.3 pg Normal 25.9-34.0 [facility] Comment on above: Performed By: #### C MREP #### [facility] [address] [place] [address] Dr. Risa Patterson MCHC (RBC) [Mass/Vol] 31.4 g/dL Normal 29.9-35.2 [facility] Comment on above: Performed By: #### C MREP #### [facility] [address] [place] [address] Dr. Risa Patterson MCV (RBC) [Entitic vol] 96.4 fL Critically high 80.0-94.0 [facility] Comment on above: Performed By: #### C MREP #### [facility] [address] [place] [address] Dr. Risa Patterson MONO # 1.1 103/ul Critically high 0.3-0.8 [facility] Comment on above: Performed By: #### C MREP #### [facility] [address] [place] [address] Dr. Risa Patterson Monocytes/100 WBC (Bld) 10.7 % Normal 1.7-12.0 [facility] Comment on above: Performed By: #### C MREP #### [facility] [address] [place] [address] Dr. Risa Patterson NEUT # 7.1 103/ul Critically high 1.4-6.5 [facility] Comment on above: Performed By: #### C MREP #### [facility] [address] [place] [address] Dr. Risa Pattesron Neutrophils/100 WBC (Bld) 67.1 % Normal 43.0-75.0 [facility] Comment on above: Performed By: #### C MREP #### [facility] [address] [place] [address] Dr. Risa Patterson Platelet mean volume (Bld) [Entitic vol] 9.5 fL Normal 9.5-13.5 [facility] Comment on above: Performed By: #### C MREP #### [facility] [address] [place] [address] Dr. Risa Patterson PLT 317 103/ul Normal 150-450 [facility] Comment on above: Performed By: #### C MREP #### [facility] [address] [place] [address] Dr. Risa Patterson RBC 4.22 106/ul Critically low 4.70-6.10 [facility] Comment on above: Performed By: #### C MREP #### [facility] [address] [place] [address] Dr. Risa Patterson WBC 10.6 103/ul Normal 4.0-11.0 [facility] Comment on above: Performed By: #### C MREP #### [facility] [address] [place] [address] Dr. Risa Patterson CTA CHEST WO W CONon 2 022 CTA CHEST WO W CON EXAMINATION: CTA PAYTON ST WO W CON HISTORY: SHORTNESS OF BREATH , cough, DVT COMPARISON: No relevant comparison available. TECHNIQUE: Axial, Coronal, and Sagittal images were created without and with IV contrast. Dose reduction techniques were achieved by using automated exposure control and/or adjustment of mA and/or kV according to patient size and/or use of iterative reconstruction technique. FINDINGS: LUNGS: Moderate peribronchial thickening. No focal parenchymal infiltrates. PLEURA: No mass, effusion, or pneumothorax. VASCULATURE: No filling defect demonstrated within the central pulmonary arteries ARABELLA: No mass or adenopathy. MEDIASTINUM: No mass or adenopathy. CARDIAC: No enlargement, pericardial thickening, or significant calcification. AORTA: No aneurysm or dissection. CHEST WALL: No mass or axillary adenopathy. BONES: Lytic change to a midthoracic vertebral body, a hemangioma is favored. Thoracic fusion hardware LIMITED ABDOMEN: 2.9 cm hypodensity of the spleen a cyst is suspected. OTHER: Negative. IMPRESSION: No central pulmonary thromboembolic disease Moderate peribronchial thickening, consider bronchitis Electronically authenticated by: MAJOR REA Date: 2021-09-20 08:07 Normal [facility] Covid-19 PCR (CVDTB)on 08-23 SARS-CoV-2 (COVID-19) RNA SAMMY+probe Ql (Unsp spec) Not detected Normal NOT DETECTED [facility] Comment on above: Result Comment: When diagnostic testing is negative, the possibility of a false negative should be considered in the context of a patient's recent exposures and the presence of clinical signs and symptoms consistent with SARS-CoV-2. This test is not yet approved or cleared by the [place] FDA. When there are no FDA-approved or cleared tests available, and other criteria are met, FDA can make tests available under an emergency access mechanism called an Emergency Use Authorization (EUA). The EUA for this test is supported by the Distribution Center Supervisor of Health and Human Service's declaration that circumstances exist to justify the emergency use of in vitro diagnostics for the detection and/or diagnosis of the virus that causes COVID-19. This EUA will remain in effect for the duration of the COVID-19 declaration justifying emergency of IVDs, unless it is terminated or revoked by the FDA (after which the test may no longer be used). Performed By: #### C MADM, BNP, BMP #### [facility] [address] [place] [address] Dr. Risa Patterson INFLUENZA A AND B AGon 09-20 INFLUANEGH SEE BELOW Normal [facility] Comment on above: Result Comment: Nega tive for Flu A protein angiten. Infection due to Flu A cannot be ruled out. Flu A angiten in the sample may be below the detection limit of the test. Performed By: #### C MREP #### [facility] [address] [place] [address] Dr. Risa Patterson INFLUBNEGH SEE BELOW Normal [facility] Comment on above: Result Comment: Nega tive for Flu B protein antigen. Infection due to Flu B cannot be ruled out. Flu B antigen in the sample may be below the detection limit of the test. Performed By: #### C MREP #### [facility] [address] [place] [address] Dr. Risa Patterson INFLUENZA A AG Negative Normal NEGATIVE SEE COMMENT [facility] Comment on above: Performed By: #### C MREP #### [facility] [address] [place] [address] Dr. Risa Patterson INFLUENZA B AG Negative Normal NEGATIVE SEE COMMENT [facility] Comment on above: Performed By: #### C MREP #### [facility] [address] [place] [address] Dr. Risa Patterson INTERNAL CONTROLS Within Normal Limits Normal Wi thin Normal Limits [facility] Comment on above: Performed By: #### C MREP #### [facility] [address] [place] [address] Dr. Risa Patterson PROF CHEM 8 (BAS METB)on Anion gap [Moles/Vol] 15.5 mmol/L Normal [facility] Comment on above: Performed By: #### C MADM, BNP, BMP #### [facility] [address] [place] [address] Dr. Risa Patterson Calcium [Mass/Vol] 9.0 mg/dL Normal 8.5-10.1 [facility] Comment on above: Performed By: #### C MADM, BNP, BMP #### [facility] [address] [address] [address] Risa Patterson Chloride [Moles/Vol] 104 mmol/L Normal 98-107 [facility] Comment on above: Performed By: #### C MADM, BNP, BMP #### [facility] [address] [place] [address] Dr. Risa Patterson CO2 [Moles/Vol] 25.2 mmol/L Normal 21.0-32.0 [facility] Comment on above: Performed By: #### C MADM, BNP, BMP #### [facility] [address] [place] [address] Dr. Risa Patterson Creatinine [Mass/Vol] 1.27 mg/dL Normal 0.70-1.30 [facility] Comment on above: Performed By: #### C MADM, BNP, BMP #### [facility] [address] [place] [address] Dr. Risa Patterson EGFR-AF [place] >60 Normal >=60 [facility] Comment on above: Performed By: #### C MADM, BNP, BMP #### [facility] [address] [place] [address] Dr. Risa Patterson EGFR-NON AF [place] 58 mL/min/1.73m2 Critically low >=60 [facility] Comment on above: Performed By: #### C MADM, BNP, BMP #### [facility] [address] [place] [address] Dr. Risa Patterson Glucose [Mass/Vol] 138 mg/dL Critically high 74-106 [facility] Comment on above: Performed By: #### C MADM, BNP, BMP #### [facility] [address] [place] [address] Dr. Risa Patterson Potassium [Moles/Vol] 3.7 mmol/L Normal 3.5-5.1 [facility] Comment on above: Performed By: #### C MADM, BNP, BMP #### [facility] [address] [place] [address] Dr. Risa Patterson Sodium [Moles/Vol] 141 mmol/L Normal 136-145 [facility] Comment on above: Performed By: #### C MADM, BNP, BMP #### [facility] [address] [address] [address] Risa Patterson Urea nitrogen [Mass/Vol] 19.0 mg/dL Critically high 7.0-18.0 [facility] Comment on above: Performed By: #### C MADM, BNP, BMP #### [facility] [address] [id number] [address] Risa Patterson Urea nitrogen/Creatinine [Mass ratio] 15.0 mg/mg Normal [facility] Comment on above: Performed By: #### C MADM, BNP, BMP #### [facility] [address] [id number] Risa Patterson XR CHEST 1 Von 09-20-2021 XR CHEST 1 V XR CHEST 1 V 09/20/2021 6:22 AM EDT Indication: COUGH Technique: Portable AP radiograph of the chest was obtained. Comparison: July 27, 2021 Findings: The lungs are adequately inflated. No acute rib fractures, pneumothorax or mediastinal shift. No consolidation, edema, or effusion. Heart is normal in size and contour. Thoracolumbar fusion hardware noted. Impression: No acute findings. Electronically authenticated by: ANGELES NASSAR Date: 2021-09-20 06:53 Normal [facility] US ASHLEY DOP LEG LTon 09-15-19 US ASHLEY DOP LEG LT EXAMINATION: US ASHLEY DOP LEG LT HISTORY: Pain in left leg COMPARISON: No relevant comparison available. FINDINGS: REGION: Left lower extremity THROMBI: Short segment within the posterior tibial vein and within the small saphenous vein. COMPRESSIBILITY: Noncompressible segments. FLOW: Absent flow within the above segments. OTHER: None. IMPRESSION: 1. Small deep vein thrombus burden within left lower extremity: Short segment of thrombosed posterior tibial vein. 2. Short thrombosed segment within the small saphenous vein (superficial vein). Findings called to ordering provider by the hard tile setter at time of imaging. Electronically authenticated by: ASHER SOLANO Date: 2021-09-14 14:25 Normal [facility] Cardiovascular Lab Reporton 06-25-2021 Cardiovascular Lab Report [facility] Patient Name: Elena Felix [facility] MR #: [id number] Physician: Nikkie Department of MD [facility] Service Date: 06/23/2021 Division of Birthdate: 1960 Cardiology Room #: CC Adult Cardiovascular Services [facility] [address] [place], [place] [address] Cardiovascular Laboratory Report Procedures: 1. Right heart catheterization 2. Coronary Angiography FINAL IMPRESSIONS: 1. Patent coronary arteries. Mild non obstructive CAD. No signficant stenosis 2. Non ischemic cardiomyopathy 3. Normal right sided pressures RECOMMENDATIONS: 1. Aggressive risk factor modification. 2. Optimization of medical management for HFrEF. Will increase coreg. Patient is unable to tolerate HORTENCIA/ARB due to presumed angioedema. 3. Follow up with Cardiology and PCP as scheduled. PROCEDURE: After risks, benefits, and alternatives were explained, written informed consent was obtained. The patient was prepped and draped in usual sterile fashion. Using 1% lidocaine solution, local infiltration anesthesia was achieved over the right internal jugular vein. Using a micropuncture kit and with ultrasound guidance, access to the right internal jugular vein was obtained. Phelps Catheter was advanced sequentially into the RA, RV, PA, and Wedge positions, and pressures were measured. PA saturation was obtained. After reviewing the pressures, it was elected to conclude the right heart catheterization and proceed with coronary angiography. Using 1% lidocaine solution, local infiltration anesthesia was achieved over the left radial artery. Using a micropuncture kit, access to the left radial artery was obtained. Coronary angiography was performed using the JR4 and JL4 diagnositc catheters. After reviewing the images, it was elected to conclude the procedure. Overall, the patient tolerated the procedure well. There were no obvious complications. He was to be transferred to Recovery in stable condition. FINDINGS: Hemodynamics: AO 122/85 RA 11 RV 33/11 (13) mPA 20 PCWP 13 CO 8.83 CI 3.06 Left Ventriculography: This was not performed. Ejection fraction: Severely reduced by noninvasive imaging. CORONARY ARTERIES: Left Main Coronary Artery: This arises from the left coronary cusp. It bifurcates into the left anterior descending and left circumflex coronary artery. No significant stenosis noted Left Anterior Descending: No significant stenosis noted Left Circumflex: No signficiant stenosis noted Right coronary artery: This arises from the right coronary cusp. This is a dominant vessel. There appeared to be an ostial stenosis which resolved after switching to 5F catheter, and was likely indicative of a pseudolesion. There is 20% steonsis in the proximal portion. INDICATIONS: chest pain, cardiomyopathy Electronically Signed by: Nikkie Trejo MD 06/25/2021 03:30 P Nikkie Trejo MD Date Dict: 06/25/2021/03:01 P/Nikkie Trejo MD Date Trans: 06/25/2021 03:01 P/ [id number] cc: Renato Lundberg M.D. [address] [place] [id number] [address] [facility] [id number] [facility] Vital Signs Date Time Vital Sign Value Performing Clinician Facility 02-05-2023 12:48-0400 Body weight 129.73 kg Austin Clark MD Work Phone: [facility] 11-17-2022 10:05-0400 Diastolic blood pressure 74 mm[Hg] Tricia Howard MD Work Phone: [facility] 11-17-2022 10:05-0400 Heart rate 62 /min Tricia Howard MD Work Phone: [facility] 11-17-2022 10:05-0400 Systolic blood pressure 107 mm[Hg] Tricia Howard MD Work Phone: [facility] 11-17-2022 09:58-0400 Body weight 132 kg Tricia Howard MD Work Phone: [facility] 11-17-2022 09:58-0400 SaO2% (BldA) [Mass fraction] 97 % Tricia Howard MD Work Phone: [facility] 10-31-2022 11:00-0400 Body height 185.42 cm Silvana Lundberg Other [facility] Other 10-31-2022 11:00-0400 Body mass index (BMI) [Ratio] 39.58 kg/m2 Silvana Lundberg Other [facility] Other 10-31-2022 11:00-0400 Body temperature 97.9 [degF] Silvana Lundberg Other [facility] Other 10-31-2022 11:00-0400 Body weight 136.08 kg Silvana Lundberg Other [facility] Other 10-31-2022 11:00-0400 Diastolic blood pressure 49 mm[Hg] Silvana Lundberg Other [facility] Other 10-31-2022 11:00-0400 Systolic blood pressure 91 mm[Hg] Silvana Lundberg Other [facility] Other 10-16-2022 14:45-0400 Body height 185.42 cm Silvana Lundberg Other [facility] Other 10-16-2022 14:45-0400 Body mass index (BMI) [Ratio] 38.39 kg/m2 Silvana Lundberg Other [facility] Other 10-16-2022 14:45-0400 Body weight 132 kg Silvana Lundberg Other [facility] Other 10-16-2022 14:45-0400 Diastolic blood pressure 62 mm[Hg] Silvana Lundberg Other [facility] Other 10-16-2022 14:45-0400 Systolic blood pressure 89 mm[Hg] Silvana Lundberg Other [facility] Other 10-06-2022 08:23-0400 Body height 188 cm Anna North SIGNAL WORKER.ROLLER CHECKER Work Phone: [facility] 10-06-2022 08:23-0400 Body weight 131.54 kg Anna North SIGNAL WORKER.ROLLER CHECKER Work Phone: [facility] 10-06-2022 08:23-0400 Diastolic blood pressure 59 mm[Hg] Anna North SIGNAL WORKER.ROLLER CHECKER Work Phone: [facility] 10-06-2022 08:23-0400 Heart rate 83 /min Anna North SIGNAL WORKER.ROLLER CHECKER Work Phone: [facility] 10-06-2022 08:23-0400 SaO2% (BldA) [Mass fraction] 95 % Anna North SIGNAL WORKER.ROLLER CHECKER Work Phone: [facility] 10-06-2022 08:23-0400 Systolic blood pressure 106 mm[Hg] Anna North SIGNAL WORKER.ROLLER CHECKER Work Phone: [facility] 08-16-2022 08:14-0400 Diastolic blood pressure 78 mm[Hg] Tricia Howard MD Work Phone: [facility] 08-16-2022 08:14-0400 Systolic blood pressure 114 mm[Hg] Tricia Howard MD Work Phone: [facility] 08-16-2022 08:10-0400 Body height 188 cm Tricia Howard MD Work Phone: [facility] 08-16-2022 08:10-0400 Body weight 132.36 kg Tricia Howard MD Work Phone: [facility] 08-16-2022 08:10-0400 Heart rate 89 /min Tricia Howard MD Work Phone: [facility] 08-16-2022 08:10-0400 SaO2% (BldA) [Mass fraction] 96 % Tricia Howard MD Work Phone: [facility] 05-08-2022 10:00-0500 Body height 185.42 cm Silvana Lundberg Other [facility] Other 05-08-2022 10:00-0500 Body mass index (BMI) [Ratio] 39.71 kg/m2 Silvana Lundberg Other [facility] Other 05-08-2022 10:00-0500 Body weight 136.53 kg Silvana Lundberg Other [facility] Other 05-08-2022 10:00-0500 Diastolic blood pressure 72 mm[Hg] Silvana Lundberg Other [facility] Other 05-08-2022 10:00-0500 SaO2% (BldA) [Mass fraction] 97 % Silvana Lundberg Other [facility] Other 05-08-2022 10:00-0500 Systolic blood pressure 112 mm[Hg] Silvana Lundberg Other [facility] Other 01-18-2022 09:54-0400 Body height 190.5 cm Merly Marti MD Work Phone: [facility] 01-18-2022 09:54-0400 Body temperature 97.3 [degF] Merly Marti MD Work Phone: [facility] 01-18-2022 09:54-0400 Body weight 131.91 kg Merly Marti MD Work Phone: [facility] 01-18-2022 09:54-0400 Diastolic blood pressure 71 mm[Hg] Merly Marti MD Work Phone: [facility] 01-18-2022 09:54-0400 Heart rate 92 /min Merly Marti MD Work Phone: [facility] 01-18-2022 09:54-0400 Respiratory rate 18 /min Merly Marti MD Work Phone: [facility] 01-18-2022 09:54-0400 SaO2% (BldA) [Mass fraction] 97 % Merly Marti MD Work Phone: [facility] 01-18-2022 09:54-0400 Systolic blood pressure 122 mm[Hg] Merly Marti MD Work Phone: [facility] 12-28-2021 14:38-0400 Body height 190.5 cm Merly Marti MD Work Phone: [facility] 12-28-2021 14:38-0400 Body temperature 97.2 [degF] Merly Marti MD Work Phone: [facility] 12-28-2021 14:38-0400 Body weight 135.53 kg Merly Marti MD Work Phone: [facility] 12-28-2021 14:38-0400 Diastolic blood pressure 66 mm[Hg] Merly Marti MD Work Phone: [facility] 12-28-2021 14:38-0400 Heart rate 72 /min Merly Marti MD Work Phone: [facility] 12-28-2021 14:38-0400 Respiratory rate 18 /min Merly Marti MD Work Phone: [facility] 12-28-2021 14:38-0400 SaO2% (BldA) [Mass fraction] 96 % Merly Marti MD Work Phone: [facility] 12-28-2021 14:38-0400 Systolic blood pressure 127 mm[Hg] Merly Marti MD Work Phone: [facility] 09-21-2021 15:35-0400 Body height 190.5 cm Merly Marti MD Work Phone: [facility] 09-21-2021 15:35-0400 Body temperature 97.2 [degF] Merly Marti MD Work Phone: [facility] 09-21-2021 15:35-0400 Body weight 132.63 kg Merly Marti MD Work Phone: [facility] 09-21-2021 15:35-0400 Diastolic blood pressure 73 mm[Hg] Merly Marti MD Work Phone: [facility] 09-21-2021 15:35-0400 Heart rate 91 /min Merly Marti MD Work Phone: [facility] 09-21-2021 15:35-0400 Respiratory rate 16 /min Merly Marti MD Work Phone: [facility] 09-21-2021 15:35-0400 SaO2% (BldA) [Mass fraction] 94 % Merly Marti MD Work Phone: [facility] 09-21-2021 15:35-0400 Systolic blood pressure 122 mm[Hg] Merly Marti MD Work Phone: [facility] Encounters Encounter Date Encounter Type Care Provider Facility Start: 07-16-2023 ambulatory Jerrod Torres ty:[facility] Start: 05-03-2023 End: 05-03-2023 ambulatory PHYSICIAN NO [facility] Facility:[facility] Start: 05-03-2023 End: 05-03-2023 ambulatory PHYSICIAN NO [facility] Work Phone: Start: 05-03-2023 End: 05-03-2023 Patient encounter procedure PHYSICIAN NO [facility] [address] Work Phone: Start: 03-29-2023 (Televisit) Televisit Silvana Samson [facility] Start: 03-29-2023 End: 03-29-2023 ambulatory Silvana Lundberg Other [facility] Other Start: 02-19-2023 End: 02-19-2023 ambulatory Silvana Lundberg Other [facility] Other Start: 02-19-2023 Telephone encounter Silvana Tamika [facility] Start: 02-05-2023 End: 02-05-2023 ambulatory AUSTIN CLARK Facility:[facility] Start: 02-05-2023 End: 02-05-2023 Patient encounter procedure Austin Clark MD Work Phone: Cardiology Comment on above: Shortness of breath (Primary Dx); Near syncope Start: 12-27-2022 End: 12-27-2022 ambulatory Silvana Lundberg Other [facility] Other Start: 12-27-2022 Nursing evaluation o f patient and report Silvana Tamika [facility] Start: 12-11-2022 End: 12-11-2022 ambulatory PHYSICIAN NO FAMILY Facility:[facility] Start: 12-11-2022 End: 12-11-2022 ambulatory PHYSICIAN NO [facility] Work Phone: Start: 12-11-2022 End: 12-11-2022 Patient encounter procedure PHYSICIAN NO [facility] [address] Work Phone: Start: 11-17-2022 End: 11-17-2022 ambulatory TRICIA HOWARD Facility:[facility] Start: 11-17-2022 End: 11-17-2022 Patient encounter procedure Tricia Howard MD Work Phone: Cardiology Comment on above: SOB (shortness of br eath) (Primary Dx); Coronary artery disease involving [place] coronary artery of [place] heart without angina pectoris; Palpitations Start: 11-15-2022 End: 11-15-2022 ambulatory MERLY MARTI Facility:[facility] Start: 11-07-2022 End: 11-07-2022 ambulatory Silvana Lundberg Other [facility] Other Start: 11-07-2022 Nursing evaluation o f patient and report Silvana Lundberg [facility] Start: 11-07-2022 Telephone encounter Silvana Lundberg [facility] Start: 11-02-2022 End: 11-02-2022 ambulatory Silvana Lundberg Other [facility] Other Start: 11-02-2022 Telephone encounter Silvana Lundberg [facility] Start: 10-31-2022 Office outpatient vi sit 15 minutes Silvana Lundberg [facility] Start: 10-31-2022 End: 10-31-2022 ambulatory PHYSICIAN NO FAMILY Facility:[facility] Start: 10-31-2022 End: 10-31-2022 ambulatory MD Silvana Lundberg Work Phone: [facility] Work Phone: Start: 10-31-2022 End: 10-31-2022 Departed Referred MD Silvana Lundberg Work Phone: [facility] [address] [place] Work Phone: Start: 10-18-2022 End: 10-18-2022 ambulatory ANNA NORTH Facility:[facility] Start: 10-17-2022 Orders Only Tricia Howard MD Work Phone: Cardiology Comment on above: Dilated cardiomyopat hy (HCC) (Primary Dx) 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 sites in spine (HCC) (Primary Dx) Results (Abnormal La bs) Start: 10-16-2022 Office outpatient vi sit 25 minutes Silvana Lundberg [facility] Start: 10-16-2022 End: 10-17-2022 ambulatory ANNA NORTH Facility:[facility] Start: 10-16-2022 End: 10-16-2022 ambulatory Emg 1000) Work Phone: Neurology Comment on above: EMG Start: 10-16-2022 End: 10-16-2022 Patient encounter procedure Emg 1 Neur Main (Max Weight: 1000) Work Phone: [facility] Start: 10-12-2022 Telephone encounter Anna carrasco SIGNAL WORKER.ROLLER CHECKER Work Phone: Neurology Comment on above: Results (Abnormal la bs) Start: 10-06-2022 End: 10-07-2022 ambulatory ANNA NORTH Facility:[facility] Start: 10-06-2022 End: 10-06-2022 Patient encounter procedure Anna North SIGNAL WORKER.ROLLER CHECKER Work Phone: Neurology Comment on above: Disturbance of skin sensation (Primary Dx); Lightheadedness; Change in blood pressure; Orthostatic hypotension; Tremulousness Start: 10-04-2022 End: 10-04-2022 ambulatory SILVANA LUNDBERG Facility:[facility] Start: 10-04-2022 End: 10-04-2022 Subsequent hospital visit by physician [employer] Work Phone: Molecular Imaging Comment on above: Exertional dyspnea [ R06.09] Start: 10-03-2022 ambulatory ALFREDO dunn [facility] Start: 09-13-2022 End: 09-13-2022 Subsequent hospital visit by physician [facility] Echocardiology Testing Comment on above: Exertional dyspnea [ R06.09] Start: 09-06-2022 End: 09-07-[address] DOCTOR NUNES Facility: Start: 08-29-2022 End: 08-30-2022 ambulatory Emily Anderson MD Work Phone: Cardiology Comment on above: Shortness of Breath Start: 08-29-2022 End: 08-29-2022 Patient encounter procedure Emily Anderson MD Work Phone: [facility] Start: 08-28-2022 Telephone encounter Emily Saravia MD Work Phone: Cardiology Comment on above: Patient Education Start: 08-16-2022 End: 08-16-2022 Orders Only Austin Clark MD Work Phone: Cardiology Comment on above: POTS (postural ortho static tachycardia syndrome) (Primary Dx) Lightheadedness (Damaris brynn Dx); Change in blood pressure; SOB (shortness of breath); POTS (postural orthostatic tachycardia syndrome); Exertional dyspnea; Other secondary pulmonary hypertension (HCC); Autonomic dysfunction; Ankylosing spondylitis of multiple sites in spine (HCC); Acute deep vein thrombosis (DVT) of distal end of left lower extremity (HCC); Morbid obesity with BMI of 40.0-44.9, adult (HCC) 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 sites in spine (HCC) Start: 08-15-2022 Telephone encounter Tricia samson MD Work Phone: Cardiology Comment on above: Received Outside Med ical Records Start: 08-10-2022 End: 08-10-2022 ambulatory [facility] Start: 07-31-2022 End: 08-01-2022 ambulatory [facility] Start: 07-31-2022 End: 07-31-2022 Subsequent hospital visit by physician [facility] Tilt Table Study Room [facility] Stress Lab Comment on above: Orthostatic hypotens ion; POTS (postural orthostatic tachycardia syndrome) Start: 07-12-2022 End: 07-12-2022 ambulatory [facility] Start: 07-12-2022 Telephone encounter Tricia samson MD Work Phone: Cardiology Comment on above: Appointment Start: 07-04-2022 End: 07-05-2022 ambulatory NIKKIE TREJO Facility:[facility] Start: 06-26-2022 End: 06-27-2022 ambulatory NIKKIE TREJO Facility:[facility] Start: 06-26-[address] DOCTOR NUNES Facility :[facility] Start: 05-31-2022 End: 05-31-2022 [facility] Start: 05-24-[address] DOCTOR NUNES Facility :[facility] Start: 05-08-2022 End: 05-08-2022 ambulatory Silvana Lundberg Other [facility] Other Start: 05-08-2022 Office outpatient vi sit 15 minutes Silvana Lundberg [facility] Start: 05-01-2022 End: 05-02-2022 ambulatory Jerrod BELL Facility:[facility] Start: 05-01-2022 End: 05-01-2022 Patient encounter procedure Jerrod BELL [facility] Start: 04-24-2022 End: 04-25-[address] DOCTOR NUNES Facility:[facility] Start: 04-10-2022 End: 04-11-[address] DOCTOR NUNES Facility:[facility] Start: 04-03-2022 End: 04-04-[address] BRAD HODGES Facility:[facility] Start: 01-18-2022 End: 01-18-2022 ambulatory Merly Marti MD Work Phone: Hematology/Oncology Comment on above: History of DVT (deep vein thrombosis) (Primary Dx) Start: 01-18-2022 End: 01-18-2022 Patient encounter procedure Merly Marti MD Work Phone: [facility] Start: 01-02-2022 End: 01-03-[address] DOCTOR NUNES Facility:[facility] Start: 01-02-2022 Telephone encounter Meaghan De La Rosa RN Work Phone: Hematology/Oncology Comment on above: Results (Lab results ) Results Start: 12-28-2021 End: 12-28-2021 ambulatory Merly Marti MD Work Phone: Hematology/Oncology Comment on above: Acute deep vein thro mbosis (DVT) of distal end of left lower extremity (HCC) (Primary Dx) Start: 12-28-2021 End: 12-28-2021 Patient encounter procedure Merly Marti MD Work Phone: [facility] Start: 12-15-2021 End: 12-16-[address] SILVANA LUNDBERG Facility:[facility] Start: 11-29-2021 End: 11-30-2021 ambulatory CARLOS KRISHNA Facility:[facility] Start: 11-23-2021 End: 11-23-[address] AIDE DELOEN Facility:[facility] Start: 10-04-2021 End: 10-05-2021 ambulatory NIKKIE TREJO Facility:[facility] Start: 09-22-2021 ambulatory NIKKIE TREJO Faci lity:[facility] Start: 09-21-2021 End: 09-21-2021 ambulatory Merly Marti MD Work Phone: Hematology/Oncology Comment on above: Acute deep vein thro mbosis (DVT) of distal end of left lower extremity (HCC) (Primary Dx) Start: 09-21-2021 End: 09-21-2021 Patient encounter procedure Merly Marti MD Work Phone: [facility] Start: 09-20-2021 End: 09-20-2021 ambulatory BRYSON ENG Facility:[facility] Start: 09-16-2021 Chart abstracting Merly hernandez MD Work Phone: Hematology/Oncology Start: 09-14-2021 End: 09-15-2021 ambulatory NIKKIE TREJO Facility:[facility] Start: 08-06-2020 End: 08-06-2020 Discharged Recurring Silvana Tamika Work Phone: [facility]-Covid Vaccine Off Site Procedures Date Procedure Procedure Detail Performing Clinician Start: 10-31-2022 Aerobic microbial culture PHYSICIAN NO FAMILY Start: 10-31-2022 Anaerobic microbial culture PHYSICIAN NO FAMILY Start: 10-31-2022 Investigation of tra nsfusion reaction PHYSICIAN NO FAMILY Start: 10-16-2022 Nerve conduction waylon dies 5-6 studies Anna North SIGNAL WORKER.ROLLER CHECKER Work Phone: Start: 10-04-2022 Pulmonary ventilatio n & perfusion imaging Kellen Bryan MD Work Phone: Start: 09-13-2022 Echo tthrc r-t 2d w/ wom-mode compl spec&colr d Kellen Bryan MD Work Phone: Start: 09-13-2022 LVEF ECHO Tricia samson MD Work Phone: Start: 12-28-2021 Blood count complete auto&auto difrntl wbc Merly Marti MD Work Phone: Start: 01-22-2020 Colonoscopy Merly fuller MD Work Phone: Start: 01-22-2020 Colsc flx w/rmvl of tumor polyp lesion snare tq Jerrod BELL Start: 01-22-2020 Endoscopy and biopsy of upper gastrointestinal tract Jerrod Incap Start: 08-02-2018 Screening for malign ant neoplasm of prostate Silvana Lundberg Other Start: 05-17-2015 Injection of hip usi ng fluoroscopic guidance Jerrod Incap Comment on above: Rt. hip in OR-- 100% relief for 10 days Start: 03-08-2015 Injection of hip usi ng fluoroscopic guidance [employer] Comment on above: 100% relief for 4 da ys, slowly started coming back after 5 days back to where level of pain was before injection Start: 10-30-2014 Removal of suture Hue Lundberg Other Start: 10-02-2014 Back structure, excl uding neck (body structure) Jerrod Inc[facility] Comment on above: L2 to L5, cyst remov al, bone grafting Start: 06-26-2014 Injection of sacroil iac joint using fluoroscopic guidance [employer] Comment on above: Left Start: 04-06-2014 Injection of sacroil iac joint using fluoroscopic guidance [employer] Comment on above: Left SIJI Start: 02-16-2014 Radiofrequency dener vation of spinal facet joint of lumbar vertebra [employer] Comment on above: Right L2-L5 Start: 02-02-2014 Radiofrequency dener vation of spinal facet joint of lumbar vertebra [employer] Comment on above: Left L2-L5 Start: 01-23-2014 General examination of patient Silvana Lundberg Other Start: 12-17-2013 Injection of facet j oint using fluoroscopic guidance [employer] Comment on above: Bilateral L2-L5 Start: 10-20-2013 Injection of facet j oint using fluoroscopic guidance Jerrod BELL Comment on above: Biilateral L2-L5 Start: 04-23-2012 Back structure, excl uding neck (body structure) Jerrod BELL Comment on above: bone grafting right hand surgery 11 [employer] [facility] Comment on above: 1996 Screening for malign ant neoplasm of prostate Silvana Tamika Other Viral screening Silvana Tamika Other Plan of Treatment Date Care Activity Detail Author Start: 05-30-2026 PROSTATE CANCER SCRE ENING DISCUSSION PROSTATE CANCER SCREENING DISCUSSION [facility] Start: 10-16-2025 DIABETES SCREEN DIABETES SCREEN [facility] Start: 10-16-2025 Diabetes Screening Diabetes Screenin g [facility] Start: 10-06-2025 DIABETES SCREEN DIABETES SCREEN [facility] Start: 12-28-2024 DIABETES SCREEN DIABETES SCREEN [facility] Start: 12-22-2022 Covid-19 Vaccine ( season) Covid-19 Vaccine ( season) [facility] Start: 12-22-2022 Influenza vaccination C [facility] Start: 12-11-2022 Hepatitis B core ant ibody measurement [facility] Start: 12-11-2022 [facility] Start: 10-31-2022 Aerobic Culture Aerobic Culture [facility] Start: 10-31-2022 Anaerobic Culture Anaerobic Culture [facility] Start: 10-31-2022 Microscopic observat ion [Identifier] in Unspecified specimen by Gram stain Gram Stain [facility] Start: 10-31-2022 [facility] Start: 10-17-2022 End: 12-17-2022 C reactive protein [Mass/volume] in Serum or Plasma C-REACTIVE PROTEIN (CRP) Lab Routine Ankylosing spondylitis of multiple sites in spine (HCC) Expected: 10/17/2022, Expires: 12/17/2022 [facility] Work Phone: Comment on above: Expected: 10/17/2022 , Expires: 12/17/2022 Start: 10-17-2022 End: 12-17-2022 Erythrocyte sedimentation rate SED RATE WESTERGREN Lab Routine Ankylosing spondylitis of multiple sites in spine (HCC) Expected: 10/17/2022, Expires: 12/17/2022 [facility] Work Phone: Comment on above: Expected: 10/17/2022 , Expires: 12/17/2022 Start: 10-06-2022 End: 12-06-2022 Alpha tocopherol [Mass/volume] in Serum or Plasma [facility] Work Phone: Comment on above: Expected: 10/06/2022 , Expires: 12/06/2022 Start: 10-06-2022 End: 12-06-2022 COPPER BLOOD [facility] Work Phone: Comment on above: Expected: 10/06/2022 , Expires: 12/06/2022 Start: 10-06-2022 End: 12-06-2022 Hemoglobin A1c in Blood [facility] Work Phone: Comment on above: Expected: 10/06/2022 , Expires: 12/06/2022 Start: 10-06-2022 End: 12-06-2022 IMMUNOFIXATION SCREEN, SERUM [facility] Work Phone: Comment on above: Expected: 10/06/2022 , Expires: 12/06/2022 Start: 10-06-2022 End: 12-06-2022 KAPPA/KEANE,FREE,SER [facility] Work Phone: Comment on above: Expected: 10/06/2022 , Expires: 12/06/2022 Start: 10-06-2022 End: 12-06-2022 Pyridoxine [Mass/volume] in Serum or Plasma [facility] Work Phone: Comment on above: Expected: 10/06/2022 , Expires: 12/06/2022 Start: 10-06-2022 End: 12-06-2022 VITAMIN B1 (THIAMINE), WHOLE BLOOD [facility] Work Phone: Comment on above: Expected: 10/06/2022 , Expires: 12/06/2022 Start: 10-06-2022 End: 12-06-2022 Zinc [Mass/volume] in Serum or Plasma [facility] Work Phone: Comment on above: Expected: 10/06/2022 , Expires: 12/06/2022 Start: 07-25-2022 Annual Wellness Visi t (AWV) Annual Wellness Visit (AWV) [facility] Start: 04-23-2022 DEPRESSION ASSESSMENT DEPRESSION ASS ESSMENT [facility] Start: 12-28-2021 End: 02-27-2022 Fibrin D-dimer FEU [Mass/volume] in Platelet poor plasma D-DIMER Lab Routine Acute deep vein thrombosis (DVT) of distal end of left lower extremity (HCC) Expected: 12/28/2021, Expires: 02/27/2022 [facility] Work Phone: Comment on above: Expected: 12/28/2021 , Expires: 02/27/2022 Start: 12-22-2021 End: 02-21-2022 APC RESISTANCE APC RESISTANCE Lab Routine Acute deep vein thrombosis (DVT) of distal end of left lower extremity (HCC) Expected: 12/22/2021 (Approximate), Expires: 02/21/2022 [facility] Work Phone: Comment on above: Expected: 12/22/2021 (Approximate), Expires: 02/21/2022 Start: 12-22-2021 End: 02-21-2022 B 2 GPI IGG & IGM B 2 GPI IGG & IGM Lab Routine Acute deep vein thrombosis (DVT) of distal end of left lower extremity (HCC) Expected: 12/22/2021 (Approximate), Expires: 02/21/2022 [facility] Work Phone: Comment on above: Expected: 12/22/2021 (Approximate), Expires: 02/21/2022 Start: 12-22-2021 End: 02-21-2022 Cardiolipin IgG and IgM panel - Serum ANTI-CARDIOLIPIN AB Lab Routine Acute deep vein thrombosis (DVT) of distal end of left lower extremity (HCC) Expected: 12/22/2021 (Approximate), Expires: 02/21/2022 [facility] Work Phone: Comment on above: Expected: 12/22/2021 (Approximate), Expires: 02/21/2022 Start: 12-22-2021 End: 02-21-2022 CBC W Auto Differential panel - Blood CBC + DIFF Lab Routine Acute deep vein thrombosis (DVT) of distal end of left lower extremity (HCC) Expected: 12/22/2021 (Approximate), Expires: 02/21/2022 [facility] Work Phone: Comment on above: Expected: 12/22/2021 (Approximate), Expires: 02/21/2022 Start: 12-22-2021 End: 02-21-2022 Comprehensive metabolic 2000 panel - Serum or Plasma COMP METABOLIC PANEL Lab Routine Acute deep vein thrombosis (DVT) of distal end of left lower extremity (HCC) Expected: 12/22/2021 (Approximate), Expires: 02/21/2022 [facility] Work Phone: Comment on above: Expected: 12/22/2021 (Approximate), Expires: 02/21/2022 Start: 12-22-2021 End: 02-21-2022 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 [Identifier] in Blood or Tissue by Molecular genetics method Nominal PROTHROMBIN GENE PCR Lab Routine Acute deep vein thrombosis (DVT) of distal end of left lower extremity (HCC) Expected: 12/22/2021 (Approximate), Expires: 02/21/2022 [facility] Work Phone: Comment on above: Expected: 12/22/2021 (Approximate), Expires: 02/21/2022 Start: 12-22-2021 Influenza vaccination C [facility] Start: 12-22-2021 End: 02-21-2022 Lactate dehydrogenase [Enzymatic activity/volume] in Serum or Plasma LD LACTATE DEHYDRO Lab Routine Acute deep vein thrombosis (DVT) of distal end of left lower extremity (HCC) Expected: 12/22/2021 (Approximate), Expires: 02/21/2022 [facility] Work Phone: Comment on above: Expected: 12/22/2021 (Approximate), Expires: 02/21/2022 Start: 12-22-2021 End: 02-21-[address] Lab Routine Acute deep vein thrombosis (DVT) of distal end of left lower extremity (HCC) Expected: 12/22/2021 (Approximate), Expires: 02/21/2022 [facility] Work Phone: Comment on above: Expected: 12/22/2021 (Approximate), Expires: 02/21/2022 Start: 01-21-2021 Colonoscopy COLONOSCOPY [facility] Start: 01-21-2021 COLORECTAL CANCER SCREENING COLORECTAL CANCER SCREENING [facility] Start: 2020 RSV Vaccine (1 - 1-d ose 60+ series) RSV Vaccine (1 - 1-dose 60+ series) [facility] Start: 12-16-2019 DIABETES SCREEN DIABETES SCREEN [facility] Start: 09-05-2015 PROSTATE CANCER SCRE ENING DISCUSSION PROSTATE CANCER SCREENING DISCUSSION [facility] Start: 08-14-2015 PNEUMOCOCCAL (2 - PCV) PNEUMOCOCCAL (2 - PCV) [facility] Start: 08-14-2015 Pneumococcal vaccination Pneum ococcal Vaccine (2 - PCV) [facility] Start: 01-12-2015 Urine microalbumin profile DTaP,Tdap,Td Vaccine (1 - Tdap) [facility] Start: 2010 Shingles vaccine (1 of 2) Tubbs gles vaccine (1 of 2) [facility] Start: 2010 SHINGRIX VACCINE (1 of 2) TUBBS GRIX VACCINE (1 of 2) [facility] Start: 2005 COLOGUARD (FIT-DNA) COLOGUARD (FIT-D NA) [facility] Start: 2005 Colonoscopy COLONOSCOPY [facility] Start: 2005 COLORECTAL CANCER SCREENING COLORECTAL CANCER SCREENING [facility] Start: [address] COLONOGRAPHY [facility] Start: 2005 FECAL OCCULT BLOOD FECAL OCCULT BLOO D [facility] Start: 2005 Screening for malign ant neoplasm of colon [facility] Start: 2005 SIGMOIDOSCOPY SIGMOIDOSCOPY [facility] Start: 2000 Lipid panel Lipids [facility] [employer] [facility] Start: 09-05-1995 Lipid 1996 panel - S eliza or Plasma Lipid Screening [facility] Start: 09-05-1995 LIPID SCREEN LIPID SCREEN [facility] Start: 09-05-1979 DTaP/Tdap/Td vaccine (1 - Tdap) DTaP/Tdap/Td vaccine (1 - Tdap) [facility] Start: 09-05-1979 SHINGRIX VACCINE (1 of 2) TUBBS GRIX VACCINE (1 of 2) [facility] Start: 09-05-1979 Urine microalbumin profile [facility] Start: 1978 HEPATITIS C SCREENING HEPATITIS C SC REENING [facility] Start: 1978 Hepatitis C screening Hepatitis C sc reen [facility] Start: 1978 HIV SCREENING HIV SCREENING [facility] Start: 09-05-1975 HIV screening HIV screen [facility] Start: 1972 Depression Screen Depression Screen [facility] Start: 1966 PNEUMOCOCCAL (1 - PCV) PNEUMOCOCCAL (1 - PCV) [facility] Start: 1965 COVID-19 VACCINE (#1) COVID-19 VACCI NE (#1) [facility] APC RESISTANCE APC RESISTANCE L ab Routine Acute deep vein thrombosis (DVT) of distal end of left lower extremity ([facility]) 12/28/2021 2:59 PM EDT [facility] Work Phone: aPTT in Platelet poo r plasma by Coagulation assay ACTIVATED PTT Lab Routine Acute deep vein thrombosis (DVT) of distal end of left lower extremity ([facility]) 12/28/2021 2:59 PM EDT [facility] Work Phone: B 2 GPI IGG & IGM B 2 GPI IGG & IGM Lab Routine Acute deep vein thrombosis (DVT) of distal end of left lower extremity ([facility]) 12/28/2021 2:59 PM EDT [facility] Work Phone: Bacteria identified in Unspecified specimen by Aerobe culture [facility] Bacteria identified in Unspecified specimen by Anaerobe culture [facility] BETA 2 GLYCOPROTEIN, IGG BETA 2 GLYCOPROTEIN, IGG Lab Routine Acute deep vein thrombosis (DVT) of distal end of left lower extremity ([facility]) 12/28/2021 2:59 PM EDT [facility] Work Phone: BETA 2 GLYCOPROTEIN, IGM BETA 2 GLYCOPROTEIN, IGM Lab Routine Acute deep vein thrombosis (DVT) of distal end of left lower extremity ([facility]) 12/28/2021 2:59 PM EDT [facility] Work Phone: Cardiolipin IgA Ab [Units/volume] in Serum by Immunoassay CARDIOLIPIN IGA ABS Lab Routine Acute deep vein thrombosis (DVT) of distal end of left lower extremity ([facility]) 12/28/2021 2:59 PM EDT [facility] Work Phone: CARDIOLIPIN IGG ABS CARDIOLIPIN IGG ABS Lab Routine Acute deep vein thrombosis (DVT) of distal end of left lower extremity ([facility]) 12/28/2021 2:59 PM EDT [facility] Work Phone: Cardiolipin IgG and IgM panel - Serum ANTI-CARDIOLIPIN AB Lab Routine Acute deep vein thrombosis (DVT) of distal end of left lower extremity ([facility]) 12/28/2021 2:59 PM EDT [facility] Work Phone: CARDIOLIPIN IGM ABS CARDIOLIPIN IGM ABS Lab Routine Acute deep vein thrombosis (DVT) of distal end of left lower extremity ([facility]) 12/28/2021 2:59 PM EDT [facility] Work Phone: End: 12-17-2023 CARDIOPULMONARY EXERCISE TEST CARDIOPULMONARY EXERCISE TEST PFT Routine SOB (shortness of breath) 1 Occurrences starting 11/17/2022 until 12/17/2023 [facility] Work Phone: Comment on above: 1 Occurrences starti ng 11/17/2022 until 12/17/2023 End: 08-17-2023 ECG COMPLETE ECG COMPLETE ECG Routine POTS (postural orthostatic tachycardia syndrome) 1 Occurrences starting 08/16/2022 until 08/17/2023 [facility] Work Phone: Comment on above: 1 Occurrences starti ng 08/16/2022 until 08/17/2023 End: 08-17-2023 Echocardiography ECHO Cardiology Routine Exertional dyspnea 1 Occurrences starting 08/16/2022 until 08/17/2023 [facility] Work Phone: Comment on above: 1 Occurrences starti ng 08/16/2022 until 08/17/2023 End: 10-07-2023 EMG(NEURO/NI) EMG(NEURO/NI) EMG Routine Disturbance of skin sensation 1 Occurrences starting 10/06/2022 until 10/07/2023 [facility] Work Phone: Comment on above: 1 Occurrences starti ng 10/06/2022 until 10/07/2023 F2 gene mutations fo und [Identifier] in Blood or Tissue by Molecular genetics method Nominal PROTHROMBIN GENE PCR Lab Routine Acute deep vein thrombosis (DVT) of distal end of left lower extremity (HCC) 12/28/2021 2:59 PM EDT [facility] Work Phone: FOUR EXTRA LT BLUE M AN COAG TUBES FOUR EXTRA LT BLUE MAN COAG TUBES Lab Routine Acute deep vein thrombosis (DVT) of distal end of left lower extremity (HCC) 12/28/2021 2:59 PM EDT [facility] Work Phone: LUPUS ANTICOAG PL LUPUS ANTICOAG PL Lab Routine Acute deep vein thrombosis (DVT) of distal end of left lower extremity (HCC) 12/28/2021 2:59 PM EDT [facility] Work Phone: LUPUS PANEL LUPUS PANEL Lab Routine Acute deep vein thrombosis (DVT) of distal end of left lower extremity (HCC) 12/28/2021 2:59 PM EDT [facility] Work Phone: End: 11-16-2023 MRI CARDIAC MORPH FUNC WO/W IVCON MRI CARDIAC MORPH FUNC WO/W IVCON Radiology Routine Dilated cardiomyopathy (HCC) 1 Occurrences starting 10/17/2022 until 11/16/2023 [facility] Work Phone: Comment on above: 1 Occurrences starti ng 10/17/2022 until 11/16/2023 End: 11-16-2023 MRI CARDIAC VELOCITY FLOW MAP MRI CARDIAC VELOCITY FLOW MAP Radiology Routine Dilated cardiomyopathy (HCC) 1 Occurrences starting 10/17/2022 until 11/16/2023 [facility] Work Phone: Comment on above: 1 Occurrences starti ng 10/17/2022 until 11/16/2023 OUTSIDE VENDOR CARDI AC OUTPATIENT EXTENDED RHYTHM RECORDING (WITHOUT TELEMETRY) OUTSIDE VENDOR CARDIAC OUTPATIENT EXTENDED RHYTHM RECORDING (WITHOUT TELEMETRY) Holter Routine Lightheadedness POTS (postural orthostatic tachycardia syndrome) Exertional dyspnea Ordered: 08/16/2022 [facility] Work Phone: Comment on above: Ordered: 08/16/2022 PT panel - Platelet poor plasma by Coagulation assay PROTHROMBIN TIME/PT Lab Routine Acute deep vein thrombosis (DVT) of distal end of left lower extremity (HCC) 12/28/2021 2:59 PM EDT [facility] Work Phone: End: 09-15-2023 Pulmonary ventilation & perfusion imaging NM LUNG VENT / PERF VQ Radiology Routine Exertional dyspnea Other secondary pulmonary hypertension (HCC) 1 Occurrences starting 08/16/2022 until 09/15/2023 [facility] Work Phone: Comment on above: 1 Occurrences starti ng 08/16/2022 until 09/15/[address] [facility] Immunizations Immunization Date Immunization Notes Care Provider [facility] 03-13-2022 COVID-19 Pfizer (Pediatric) Silvana Lundberg Other [facility] Other 03-13-2022 influenza virus vaccine, split virus (incl. purified surface antigen) Silvana Lundberg Other [facility] Other 03-13-2022 influenza virus vaccine, unspecified formulation Jerrod BELL [facility] 03-13-2022 SARS-CoV-2 (COVID-19 ) [id number] Jerrod BELL [facility] 05-08-2021 SARS-CoV-2 (COVID-19 ) mRNA BNT-162b2 vax Jerrod BELL [facility] 03-12-2021 influenza virus vaccine, split virus (incl. purified surface antigen) Silvana Lundberg Other [facility] Other 03-12-2021 influenza virus vaccine, unspecified formulation Jerrod BELL [facility] 03-12-2021 influenza, injectabl e, quadrivalent, preservative free Merly Marti MD Work Phone: [facility] 08-06-2020 COVID-19 mRNA,[id number] b2 (Pfizer) Silvana Lundberg Work Phone: [facility] 07-22-2020 COVID-19 vaccine (NORTH) Merly Marti MD Work Phone: [facility] 07-13-2020 COVID-19 mRNA,[id number] b2 (Pfizer) Silvana Lundberg Work Phone: [facility] 06-21-2020 COVID-19 vaccine (NORTH) Merly Marti MD Work Phone: [facility] 12-31-2019 influenza virus vaccine, split virus (incl. purified surface antigen) Silvana Lundberg Other [facility] Other 01-29-2019 influenza virus vaccine, split virus (incl. purified surface antigen) Silvana Lundberg Other [facility] Other 01-11-2015 tetanus and diphther ia toxoids, adsorbed, preservative free, for adult use (5 Lf of tetanus toxoid and 2 Lf of diphtheria toxoid) Silvana Lundberg Other [facility] Other 08-13-2014 pneumococcal polysaccharide vaccine, 23 valent Merly Marti MD Work Phone: [facility] NEGATED: Highlighted row has not occurred!05-04-2020 pneumococcal polysaccharide vaccine, 23 valent Silvana Lundberg Other [facility] Other Payers Date Payer Category Payer Medicare HUMANA MEDICARE HUMANA MEDICARE PPO [id number] 2021-Present [phone] [address] [place], [place] [id number] PPO [id number] 2021 Medicare HUMANA MEDICARE HUMANA MEDICARE PPO [id number] 2021-Present [phone] [address] [place] [id number] PPO [id number] 1960 Unknown [id number] 2.16.840.1.935986.3.579.2.1 73 1960 Unknown [id number] 2.16.840.1.130561.3.579.2.5 93 1960 Unknown [id number] 2.16.840.1.504361.3.579.2.5 93 1960 Unknown [id number] 2.16.840.1.436959.3.579.2.5 93 1960 Unknown [id number] 2.16.840.1.913836.3.579.2.5 93 1960 Unknown [id number] 2.16.840.1.707504.3.579.2.5 93 1960 Unknown [id number] 2.16.840.1.989830.3.579.2.5 93 1960 Unknown [id number] 2.16.840.1.126828.3.579.2.5 93 1960 Unknown [id number] 2.16.840.1.976344.3.579.2.5 93 1960 Unknown [id number] 2.16.840.1.508602.3.579.2.5 93 1960 Unknown [id number] 2.16.840.1.875547.3.579.2.5 93 1960 Unknown [id number] 2.16.840.1.333772.3.579.2.5 93 1960 Unknown [id number] 2.16.840.1.520935.3.579.2.5 93 1960 Unknown [id number] 2.16.840.1.888118.3.579.2.5 1960 Unknown [id number] 2.16.840.1.661397.3.579.2.5 93 1960 Unknown [id number] 2.16.840.1.894439.3.579.2.5 1960 Unknown [id number] 2.16.840.1.408496.3.579.2.5 93 1960 Unknown [id number] 2.16.840.1.934833.3.579.2.5 1960 Unknown [id number] 2.16.840.1.404090.3.579.2.7 27 1960 Unknown [id number] 2.16.840.1.773273.3.579.2.7 1959 Private Health Insurance [id number] Self-pay [id number] Medicare [id number] Unknown [id number] Unknown [id number] Unknown [id number] 2.16.840.1.593909.3.579.2.5 93 Unknown [id number] 2.16.840.1.459381.3.579.2.5 31 Unknown [id number] 2.16.840.1.475592.3.579.2.5 31 Unknown [id number] 2.16.840.1.862161.3.579.2.5 31 Social History Date Type Detail Facility [facility] Start: 1960 Sex Assigned At Male [facility] Start: 12-28-2021 End: 05-01-2022 Tobacco smoking status NHIS Ex-smoker [facility] History of tobacco use Cigarette Smoker [facility] Start: 09-16-2021 End: 08-16-2022 Alcohol intake Current non-drinker of alcohol (finding) [facility] Start: 1960 Sex Assigned At Not on file C [facility] Start: 09-11-2021 End: 10-16-2022 Exposure to SARS-CoV-2 (event) Not sure [facility] History of tobacco use Current smoker [facility] Start: 12-28-2021 End: 08-29-2022 Cigarettes smoked current (pack per day) - Reported 2 [facility] History of tobacco use Passive smoker [facility] Start: 12-28-2021 Tobacco use and exposure Smokeless tobacco non-user [facility] Start: 12-28-2021 Tobacco Comment quit 1997 [facility] Start: 08-29-2022 End: 11-17-2022 Sex Assigned At Male [facility] consumption unknown [facility] [employer] Work Phone: Adult Depression Screening Assessment 2 [facility] Medical Equipment Procedure Code Equipment Code Equipment Origin al Text Equipment Identifier Dates Graft Infuse 18m m Large Ii Bovine Collagen Rhbmp-2 26mm Bone Absorbable - [id number] Start: 09-01-2016 Connector Chika 0d Small Titanium Chaitanya Spine - [id number] Start: 09-01-2016 Substitute Mastergraft Bone Graft Matrix Block Extension Void Filler 10ml - [id number] Start: 09-01-2016 Bjo-Th-W-Kind [place] plant - [id number] Start: 12-01-2015 Comment on above: Description: g7 osse eduardo acetabular shell 4 hole cementless Bmu-Ml-Y-Kind [place] plant - [id number] Start: 12-01-2015 Comment on above: Description: g7 acet abular screw Amv-Uk-L-Kind [place] plant - [id number] Start: 12-01-2015 Comment on above: Description: g7 acet abular liner neutral Ieg-Vh-I-Kind [place] plant - [id number] Start: 12-01-2015 Comment on above: Description: taperlo c complete primary femoral porous coated stem reduced distal high offset type 1 taper Cage Spnl Tri 8x 23mm 6d 11mm - [id number] Start: 09-01-2016 Screw Chika 3 Mali nium Set Malaika Spine - [id number] Start: 09-01-2016 Head G7 40mm Bio lox Delta Femoral Hip - [id number] Start: 12-01-2015 Comment on above: Description: ceramic head Sleeve G7 -6mm O ffset Taper Biolox Delta Option Titanium Centering Type 1 - [id number] Start: 12-01-2015 Comment on above: Description: taper a dapter Chaitanya Chika 3 6mm 48 0mm Spinal - [id number] Start: 09-01-2016 Screw Chika 3 7.5m m Titanium 40mm Bone Polyaxial Spine Thoracolumbar - [id number] Start: 09-01-2016 Screw Chika 3 7.5m m Titanium 45mm Bone Polyaxial Spine Thoracolumbar - [id number] Start: 09-01-2016 [place] Chika 8.5mm 7 0mm Spinal Polyaxial Ilium - [id number] Start: 09-01-2016 Screw Chika 3 6.5m m Titanium 45mm Bone Polyaxial Spine Thoracolumbar - [id number] Start: 09-01-2016 Goals Date Patient Goal Desired Activity /State Functional Status Date Assessment Result Facility 05-01-2022 Functional Status N/A [facility] Clinical Notes 12-09-2016 to 03-29-2023 Note Date & Type Note Facility 03-29-2023 Evaluation note Encounter Date Diagnosis Assessment Notes Mar, Closed hip fracture, left, sequela (ICD-10 - S72.002S) Keep appt w Dr. Skaggs. Transitioned well home. Pt will call if he has further needs. Takes pain med qhs and before PT. Mar, Other iron deficiency anemia (ICD-10 - D50.8) Discussed anemia could have been related to fracture. Will continue iron for 3 months and then recheck Mar, Dermatitis (ICD-10 - L30.9) Advised OTC Cortisone cream. [facility] Other 10-16-2023 NoteHNO ID: [id number] Author: Austin Clark MD Service: ? Author Type: Physician Type: Progress Notes Filed: 02/05/2023 1:39 PM Note Text: I personally reviewed the above information as obtained by the nurse and confirmed the findings. Chief Complaint: shortness of breath, Near loss of consciousness Additional HPI: 62 year old male with a past medical history of: PAST MEDICAL HISTORY Diagnosis Date Ankylosing spondylitis ([facility]) Dr Hodges Ankylosing spondylitis ([facility]) Arthritis Back pain Cardiomyopathy ([facility]) Nonischemic Congestive Cerebrovascular small vessel disease 08/24/2016 On ASA DVT (deep venous thrombosis) ([facility]) Esophageal reflux Former smoker Kidney stones Major depressive disorder with single episode, in remission ([facility]) 08/24/2016 Morbid obesity with BMI of 40.0-44.9, adult ([facility]) Neuropathy Obstructive sleep apnea syndrome, severe On auto-CPAP - sleep study done on 07/10/16 Pneumonia PAST SURGICAL HISTORY Procedure Laterality Date BACK SURGERY HX 2013 BACK SURGERY HX 2015 MIDLINE INSERTION/CONSULT 09/05/2016 NOSE SURGERY HX sinus surg Dr Rojo PAST SURGICAL HISTORY OF 1986 R hand surgery PAST SURGICAL HISTORY OF 2001 R finger surgery PICC LINE INSERT/CONSULT 09/16/2016 TOTAL HIP JOINT REPLACEMENT Right Initial History as taken on 02/05/2023: shortness of breath for 1 to 1.5 years, occurring with exertion, even just walking one room to the next sometimes or 1 flight of stairs showers can result in shortness of breath near loss of consciousness for around 2 years, occurring a couple times per day no overt loss of consciousness he was on midodrine and pyridostigmine at the same time and had significant explosive diarrhea so both were stopped and diarrhea essentially resolved has occasional diarrhea still, attributed to irritable bowel occupation: n Per Nursing Intake obtained 02/05/2023: Mr. Felix is a 62 year old male who is seen today for lightheadedness and POTS. He has a PMH of ankylosing spondylitis requiring multiple back surgeries, provoked DVT and a subsequent short segment distal DVT in 08/2021 which was unprovoked, not currently on AC, and HFrecEF (as low as 25% now 60%) / NICM. He is followed by Dr. Howard and was seen on 08/16/2022.Starting in 2018 post-op, began experiencing palpitations and tachycardia, reportedly in AF, thought to be just post-op. Continued to have palpitations and associated dyspnea. Symptoms progressed with more exertional dyspnea and decline in functional status. Echo showed EF as low as 25% in 2021, globally down LV. LHC with non-obst CAD and RHC with normal R sided pressures 06/2021. Continues to have exertional dyspnea, orthostatic lightheadedness/pre-syncope occurring every day. Tilt table test 07/2022 diagnosed POTS. Has been on midodrine and pyroidostigmine. Doing cardiac rehab. He was given a 2 week Zio monitor. He was seen by Anna North APRN.SAHIL on 10/06/22. She reported symptoms were more consistent with orthostatic hypotension with compensatory tachycardia, not POTS. He was tried previously on midodrine and pyridostigmine, both of which caused diarrhea and abdominal pain. She suggested Florinef or Droxidopa and to discuss with Dr. Howard. He followed up with Dr. Howard in October and was ordered a VQ scan and an exercise right heart cath. He reports feeling rapid HR at least once a day. He states he goes to stand or with exertion and he feels lightheaded and dizzy and feels his BP drop and will have near syncope. He is able to catch himself before having LOC most of the time. He reports also getting blacked out vision at times. He reports having only 2 episodes of LOC in the last year. He reports SOB with exertion. He denies abdominal distention, chest pain, orthopnea, palpitations, cough, edema. He drinks about 2 16.9 oz of water a day. He drinks 2-3 cans of Mountain Dew a day. He drinks 2-3 cups of coffee a day. He does drink about 3 beers a month. He doesn't wear compression stockings. He was doing Cardiac Rehab but has not done so recently. Per Cardiology Dr Howard 10/2022: IMPRESSION: Mr. Felix is a 62 year old male longstanding history of ankylosing spondylitis been experiencing worsening of shortness of breath and labile blood pressure 1. Shortness of breath 2. Palpitations 3. History of cardiomyopathy with EF 25% (2021) 4. History of postoperative atrial fibrillation 5. History of nonobstructive coronary artery disease PLAN AND RECOMMENDATIONS: His cardiac echo shows borderline LV systolic function. Right heart cath showed no evidence of exercise-induced pulmonary hypertension. VQ scan showed low probability of pulmonary embolism. And undergone a left heart cath with nonobstructive coronary artery disease. At this juncture we will plan to proceed with a cardiac MRI as (more content not included)...[facility]10-16-2023 NoteHNO ID: [id number] Author: Anna Duvall RN Service: ? Author Type: Registered Nurse Type: Progress Notes Filed: 02/05/2023 1:39 PM Note Text: [facility] [place] Shanelle Flannery Department of Cardiovascular Medicine SECTION OF CARDIAC PACING and ELECTROPHYSIOLOGY OUTPATIENT VISIT DATE February 05, 2023 PRIMARY CARE PHYSICIAN: Silvana Lundberg (Shante) [address] [place] [address] REFERRING PHYSICIAN: Tricia Howard [address] [facility] [address] NURSING INTAKE HISTORY: Mr. Felix is a 62 year old male who is seen today for lightheadedness and POTS. 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 He is followed by Dr. Howard and was seen on 08/16/2022.Starting in 2018 post-op, began experiencing palpitations and tachycardia, reportedly in AF, thought to be just post-op. Continued to have palpitations and associated dyspnea. Symptoms progressed with more exertional dyspnea and decline in functional status. Echo showed EF as low as 25% in 2021, globally down LV. LHC with non-obst CAD and RHC with normal R sided pressures 06/2021. Continues to have exertional dyspnea, orthostatic lightheadedness/pre-syncope occurring every day. Tilt table test 07/2022 diagnosed POTS. Has been on midodrine and pyroidostigmine. Doing cardiac rehab. He was given a 2 week Zio monitor. He was seen by Anna North APRN.CNP on 10/06/22. She reported symptoms were more consistent with orthostatic hypotension with compensatory tachycardia, not POTS. He was tried previously on midodrine and pyridostigmine, both of which caused diarrhea and abdominal pain. She suggested Florinef or Droxidopa and to discuss with Dr. Howard. He followed up with Dr. Howard in October and was ordered a VQ scan and an exercise right heart cath. He reports feeling rapid HR at least once a day. He states he goes to stand or with exertion and he feels lightheaded and dizzy and feels his BP drop and will have near syncope. He is able to catch himself before having LOC most of the time. He reports also getting blacked out vision at times. He reports having only 2 episodes of LOC in the last year. He reports SOB with exertion. He denies abdominal distention, chest pain, orthopnea, palpitations, cough, edema. He drinks about 2 16.9 oz of water a day. He drinks 2-3 cans of Mountain Dew a day. He drinks 2-3 cups of coffee a day. He does drink about 3 beers a month. He doesn't wear compression stockings. He was doing Cardiac Rehab but has not done so recently. EK02/05/2023 ZIO MONITOR: 09/14/2022 Patient had a min HR of 46 bpm, max HR of 177 bpm, and avg HR of 77 bpm. Predominant underlying rhythm was Sinus Rhythm. 38 nonsustained Supraventricular Tachycardia runs occurred, the run with the fastest interval lasting 5 beats with a max rate of 133 bpm, the longest lasting 14 beats with an avg rate of 90 bpm. Isolated SVEs were rare (<1.0%), SVE Couplets were rare (<1.0%), and SVE Triplets were rare (<1.0%). Isolated VEs were rare (<1.0%), VE Couplets were rare (<1.0%), and no VE Triplets were present. ECHO: 09/13/2022 CONCLUSIONS: - Exam indication: Shortness of Breath - The left ventricle is normal in size. Left ventricular systolic function is mildly decreased. EF = 51 ? 5% (2D biplane) Definity contrast used for endocardial border detection. Grade I left ventricular diastolic dysfunction. - The right ventricle is normal in size. Right ventricular systolic function is normal. - The left atrial cavity is mildly dilated. - The visualized aorta is borderline dilated with a maximal dimension of 3.9 cm. - Exam was compared with the prior echocardiographic exam performed on TILT TABLE TEST ([facility]): 07/31/2022 STUDY CONCLUSIONS: Abnormal head upright tilt table study. The patient's heart rate, blood pressure response and symptoms were most consistent with orthostatic intolerance. Combined with vigilant maintenance of euvolemia and maintaining a moderate salt intake, pharmacologic treatment with Florinef and/or a Serotonin Selective Reuptake Inhibitor (SSRI) such as Lexapro among other treatments have shown some effectiveness in the treatment of this condition. PAST MEDICAL HISTORY Diagnosis Date - Ankylosing spondylitis ([facility]) Dr Hodges - Ankylosing spondylitis ([facility]) - Arthritis - Back pain - Cardiomyopathy ([facility]) Nonischemic Congestive - Cerebrovascular small vessel disease 08/24/2016 On ASA - DVT (deep venous thrombosis) ([facility]) - Esophageal reflux - Former smoker - Kidney stones - Major depressive disorder with single episode, in remission ([facility]) 08/24/2016 - Morbid obesity with BMI of 40.0-44.9, adult ([facility]) - (more content not included)...[facility]10-16-2023 History of Present illness Narrative* Austin Clark MD - 02/05/2023 1:01 PM EDT I personally reviewed the above information as obtained by the nurse and confirmed the findings. Chief Complaint: shortness of breath, Near loss of consciousness Additional HPI: 62 year old male with a past medical history of: PAST MEDICAL HISTORY Diagnosis Date Ankylosing spondylitis ([facility]) Dr Hodges Ankylosing spondylitis ([facility]) Arthritis Back pain Cardiomyopathy ([facility]) Nonischemic Congestive Cerebrovascular small vessel disease 08/24/2016 On ASA DVT (deep venous thrombosis) ([facility]) Esophageal reflux Former smoker Kidney stones Major depressive disorder with single episode, in remission ([facility]) 08/24/2016 Morbid obesity with BMI of 40.0-44.9, adult ([facility]) Neuropathy Obstructive sleep apnea syndrome, severe On auto-CPAP - sleep study done on 07/10/16 Pneumonia PAST SURGICAL HISTORY Procedure Laterality Date BACK SURGERY HX 2013 BACK SURGERY HX 2015 MIDLINE INSERTION/CONSULT 09/05/2016 NOSE SURGERY HX sinus surg Dr Rojo PAST SURGICAL HISTORY OF 1986 R hand surgery PAST SURGICAL HISTORY OF 2001 R finger surgery PICC LINE INSERT/CONSULT 09/16/2016 TOTAL HIP JOINT REPLACEMENT Right Initial History as taken on 02/05/2023: shortness of breath for 1 to 1.5 years, occurring with exertion, even just walking one room to the next sometimes or 1 flight of stairs showers can result in shortness of breath near loss of consciousness for around 2 years, occurring a couple times per day no overt loss of consciousness he was on midodrine and pyridostigmine at the same time and had significant explosive diarrhea soboth were stopped and diarrhea essentially resolved has occasional diarrhea still, attributed to irritable bowel occupation: n Per Nursing Intake obtained 02/05/2023: Mr. Felix is a 62 year old male who is seen today for lightheadedness and POTS. 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 He is followed by Dr. Howard and was seen on 08/16/2022.Starting in 2019 post-op, began experiencingpalpitations and tachycardia, reportedly in AF, thought to be just post-op. Continued to have palpitations and associated dyspnea. Symptoms progressed with more exertional dyspnea and decline in functional status. Echo showed EF as low as 25% in 2021, globally down LV. LHC with non-obst CAD and RHC with normal R sided pressures 06/2021. Continues to have exertional dyspnea, orthostatic lightheadedness/pre-syncope occurring every day. Tilt table test 07/2022 diagnosed POTS. Has been on midodrine and pyroidostigmine. Doing cardiac rehab. He was given a 2 week Zio monitor. He was seen by Anna North APRN.CNP on 10/06/22. She reported symptoms were more consistent with orthostatic hypotension with compensatory tachycardia, not POTS. He was tried previously on midodrine and pyridostigmine, both of which caused diarrhea and abdominal pain. She suggested Florinef or Droxidopa and to discuss with Dr. Howard. He followed up with Dr. Howard in October and was ordered a VQ scan and an exercise right heart cath. He reports feeling rapid HR at least once a day. He states he goes to stand or with exertion and hefeels lightheaded and dizzy and feels his BP drop and will have near syncope. He is able to catch himself before having LOC most of the time. He reports also getting blacked out vision at times. He reports having only 2 episodes of LOC in the last year. He reports SOB with exertion. He denies abdominal distention, chest pain, orthopnea, palpitations, cough, edema. He drinks about 2 16.9 oz of water a day. He drinks 2-3 cans of Mountain Dew a day. He drinks 2-3 cups of coffee a day. He does drink about 3 beers a month. He doesn't wear compression stockings. He was doing Cardiac Rehab but has not done so recently. Per Cardiology Dr Howard 10/2022: IMPRESSION: Mr. Felix is a 62 year old male longstanding history of ankylosing spondylitis been experiencing worsening of shortness of breath and labile blood pressure 1. Shortness of breath 2. Palpitations 3. History of cardiomyopathy with EF 25% (2021) 4. History of postoperative atrial fibrillation 5. History of nonobstructive coronary artery disease PLAN AND RECOMMENDATIONS: His cardiac echo shows borderline LV systolic function. Right heart cath showed no evidence of exercise-induced pulmonary hypertension. VQ scan showed low probability of pulmonary embolism. And undergone a left heart cath with nonobstructive coronary artery disease. At this juncture we will plan to proceed with a cardiac MRI as well as a cardiopulmonary exercise testing. No evidence of atrial fibrillation on current monitoring. Prior testing (including outside reports) has included: ZIO MONITOR: 09/14/2022 Patient had a min HR of 46 bpm, max HR of 177 bpm, and avg HR of 77 bpm. Predominant underlying rhythm was Sinus Rhythm. 38 nonsustained Supraventricular Tachycardia runs occurred, the run with the fastest interval lasting 5 beats with a max rate of 133 bpm, the longest lasting 14 beats with an avg rate of 90 bpm. Isolated SVEs were rare (<1.0%), SVE Couplets were rare (<1.0%), and SVE Triplets were rare (<1.0%). Isolated VEs were rare (<1.0%), VE Couplets were rare (<1.0%), and no VE Triplets were present. ECHO: 09/13/2022 CONCLUSIONS: - Exam indication: Shortness of Breath - The left ventricle is normal in size. Left ventricular systolic function is mildly decreased. EF = 51 5% (2D biplane) Definity contrast used for endocardial border detection. Grade I left ventricular diastolic dysfunction. - The right ventricle is normal in size. Right ventricular systolic function is normal. - The left atrial cavity is mildly dilated. - The visualized aorta is borderline dilated with a maximal dimension of 3.9 cm. - Exam was compared with the prior CC echocardiographic exam performed on TILT TABLE TEST ([facility]): 07/31/2022 PROCEDURE SUMMARY: After explaining the risk, benefits and alternatives to the procedure, informed written consent was obtained. The patient was brought to the tilt table laboratory in a fasting and resting state. The patient was placed on the tilt table in the supine position, ECG patches were applied and an IV was placed. The patient's baseline blood pressure was 118/72 mmHg with a heart rate of 75/minute. The patient was then raised to the 70 degree head upright tilt position with and pulse rate, blood pressure and cardiac rhythm were monitored and recorded each minute of the study for a maximum of 30 minutes. During the initial 20 minutes of the study, the patient's blood pressure ranged from a high of 113/85 mmHg to a low of 82/56 mmHg, while their heart rate ranged from a low of 100/minute to a high of 125/minute. During this period, the patient reported palpitations and shortness of breath. During the last 10 minutes of the study, nitroglycerin was not given due to low BP. During this time, the patient's blood pressure ranged from a high of 120/60 mmHg to a low of 74/48 mmHg, while their heart rate ranged from a low of 92/minute to a high of 127/minute. During this period, the patient reported moderate lightheadedness, palpitations and shortness of breath. At this point, the patient was returned to the supine position and monitored for an additional ten minutes. Once the patient felt well enough to be discharged home, they were discharged home with instructions to follow up with their primary care physician and/or box nailer as previously scheduled. STUDY CONCLUSIONS: Abnormal head upright tilt table study. The patient's heart rate, blood pressure response and symptoms were most consistent with orthostatic intolerance. Combined with vigilant maintenance of euvolemia and maintaining a moderate salt intake, pharmacologic treatment with Florinef and/or a Serotonin Selective Reuptake Inhibitor (SSRI) such as Lexapro among other treatments have shown some effectiveness in the treatment of this condition. V/Q scan 10/04/2022: IMPRESSION: THE STUDY IS MOST CONSISTENT WITH A LOW PROBABILITY OF PULMONARY EMBOLISM. Zio 08/2022: Patient had a min HR of 46 bpm, max HR of 177 bpm, and avg HR of 77 bpm. Predominant underlying rhythm was Sinus Rhythm. 38 nonsustained Supraventricular Tachycardia runs occurred, the run with the fastest interval lasting 5 beats with a max rate of 133 bpm, the longest lasting 14 beats with an avg rate of 90 bpm. Isolated SVEs were rare (<1.0%), SVE Couplets were rare (<1.0%), and SVE Triplets were rare (<1.0%). Isolated VEs were rare (<1.0%), VE Couplets were rare (<1.0%), and no VE Triplets were present. Family history: FAMILY HISTORY Problem Relation Age of Onset Breast Cancer Mother Stroke Mother other (Migraine) Mother may have had migraine HAs Emphysema Father Stroke Father Arthritis Father other (Negative) Father multiple sclerosis Wt 129.7 kg (286 lb) BMI 36.70 kg/m BP w/Orthostatic Vitals Date and Time Orthostatic BP Orthostatic Pulse BP Pulse BP Position BP Site BP Cuff Size 02/05/23 1258 97/64 100 -- -- Standing Left Arm -- 02/05/23 1257 109/69 76 -- -- Sitting Left Arm -- 02/05/23 1248 115/77 79 -- -- Supine Left Arm -- General/Constitutional: no acute distress, well appearing Psych: alert and oriented Skin: intact Eyes: EOMI ENT: adequate neck movement Cardiovascular: regular, normal S1 and S2 without S3 or S4, no significant murmurs, no significant lower extremity edema, no carotid bruit Resp: lungs generally clear to auscultation bilaterally, lungs with equal air entry bilaterally Neuro: mild bilateral hand tremor Musculoskeletal: normal musculature Lab Results Component Value Date/Time HB 12.3 (L) 10/06/2022 10:25 AM HB 10.9 (L) 12/28/2021 02:59 PM HB 8.4 (L) 12/15/2016 07:22 AM HB 9.0 (L) 12/15/2016 05:32 AM K 5.3 (H) 10/16/2022 10:53 AM K 5.4 (H) 10/06/2022 10:25 AM K 4.1 12/15/2016 07:22 AM K 4.3 12/14/2016 06:45 AM CREAT 1.43 (H) 10/16/2022 10:53 AM CREAT 1.43 (H) 10/06/2022 10:25 AM CREAT 1.05 12/28/2021 02:59 PM CREAT 0.87 12/15/2016 07:22 AM CREAT 0.89 12/14/2016 06:45 AM CREAT 0.86 12/13/2016 05:48 AM TSH 2.100 10/06/2022 10:25 AM TSH 2.740 09/27/2016 11:20 AM ECG 02/05/2023 : sinus 73 bpm, damaris 150, qrs 94, qt 360/396 Assessment and Recommendations #. Shortness of breath, Near loss of consciousness. 02/05/2023: Discussed the importance of symptom correlation: linking the clinical symptoms with a specific finding at the time of occurrence (such as a diagnostic change in heart rate, heart rhythm, blood pressure). Subsequently, consideration can be made to further explore the underlying mechanism(s) that can produce those specific findings or changes. Discussed that while the differential diagnosis for shortness of breath is broad, we will concentrate on determining if shortness of breath for him is related to low blood pressures. For example, they report that he can be short of breath with showering and it is known that showers can cause a blood pressure decrease for some people due to prolonged standing as well as vasodilation from the heat. Asked that the detailed minute by minute blood pressures and heart rates from the OSH Tilt Table Test 07/2022 be sent here to review. Advised that if the OSH Tilt Table Test records are not sufficient enough to make a symptom correlation, then may need to repeat a Tilt Table Test with [id number] blood pressure monitoring here at [facility]. He agrees. If a relationship between low blood pressures (eg orthostatic hypotension) and shortness of breath is made, then the next step would be determining the cause of the blood pressure decrease, such as medication effect vs preload insufficiency vs neurogenic etiology (ie autonomic dysfunction) vs other. If preload insufficiency is suspected, then invasive cardiopulmonary exercise testing (iCPET; eg exercise right heart catheterization by Dr Dany Ragland in Pulmonary) may aid in this diagnosis. Regarding therapy, it seems that he was on both midodrine and mestinon concomitantly when he had significant diarrhea resulting in both medicines being stopped. Discussed the possibility that the diarrhea was from only 1 of the medications (eg mestinon) and the other (eg midodrine) can possibly be r econsidered in the future. Advised he proceed with the Cardiac MRI and CPET as ordered by Dr Howard. Follow up with Autonomic Neurology as well. The following are also recommended: -Sit down or lie down when symptomatic -Caution with assuming upright position (especially at night), with use of the toilet, and with showering. -Consider using a Home Medical Alert System / Personal Emergency Response System -Local / state laws should be followed regarding driving. Otherwise, general recommendations include: -No private driving if symptoms occur while driving. No operating heavy machinery or working from heights if symptoms occur. -No private driving for 1 month following an episode of syncope. [ACC/AHA Syncope Guidelines 2017. PMID 52115710] -If syncope is frequent (more than 6 episodes in 1 year), then no private driving until symptoms are controlled. [ACC/AHA Syncope Guidelines 2017. PMID 94165757] -For professional or commercial driving, driving recommendations may differ depending upon company or governmental regulations. The Nurses and Nurse Practitioners at [facility] are integral to your care. -*Test results will be available on Zoomph.* -For brief questions regarding the test results, please send a Zoomph message or call the office ([phone]), and a Nurse will be in contact. -If you would prefer more extensive discussions of the test results and recommendations, you can request a follow up visit (which can be a Virtual Visit) with a Nurse Practitioner or with Dr Clark. A copy of this note will be made available to your referring or primary physician. Please contact your referring or primary physician to process any needed documentation (such as work forms, disability forms, etc.). Tests or evaluations performed here can be made available upon request. Thank you for your visit today. Our hope is to be able to provide you with further appropriate evaluation of your symptoms in order to arrive at a diagnosis, and to provide guidance for you and your primary physician as you continue to work together for your ongoing care. Our hope is to help guide you towards the best of health. Thank you for your consultation. Sincerely, Austin Clark MD, [facility], [facility] Cardiac Electrophysiology [facility] * Anna Duvall RN - 02/05/2023 12:00 PM EDT Images from the original note were not included. [facility] [place] [facility] Flannery Department of Cardiovascular Medicine SECTION OF CARDIAC PACING and ELECTROPHYSIOLOGY OUTPATIENT VISIT DATE February 05, 2023 PRIMARY CARE PHYSICIAN: Silvana Lundberg ([place]) [address] [place] [address] REFERRING PHYSICIAN: Tricia Howard [address] [facility] [address] NURSING INTAKE HISTORY: Mr. Felix is a 62 year old male who is seen today for lightheadedness and POTS. 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 He is followed by Dr. Howard and was seen on 08/16/2022.Starting in 2018 post-op, began experiencingpalpitations and tachycardia, reportedly in AF, thought to be just post-op. Continued to have palpitations and associated dyspnea. Symptoms progressed with more exertional dyspnea and decline in functional status. Echo showed EF as low as 25% in 2021, globally down LV. LHC with non-obst CAD and RHC with normal R sided pressures 06/2021. Continues to have exertional dyspnea, orthostatic lightheadedness/pre-syncope occurring every day. Tilt table test 07/2022 diagnosed POTS. Has been on midodrine and pyroidostigmine. Doing cardiac rehab. He was given a 2 week Zio monitor. He was seen by Anna North APRN.CNP on 10/06/22. She reported symptoms were more consistent with orthostatic hypotension with compensatory tachycardia, not POTS. He was tried previously on midodrine and pyridostigmine, both of which caused diarrhea and abdominal pain. She suggested Florinef or Droxidopa and to discuss with Dr. Howard. He followed up with Dr. Howard in October and was ordered a VQ scan and an exercise right heart cath. He reports feeling rapid HR at least once a day. He states he goes to stand or with exertion and hefeels lightheaded and dizzy and feels his BP drop and will have near syncope. He is able to catch himself before having LOC most of the time. He reports also getting blacked out vision at times. He reports having only 2 episodes of LOC in the last year. He reports SOB with exertion. He denies abdominal distention, chest pain, orthopnea, palpitations, cough, edema. He drinks about 2 16.9 oz of water a day. He drinks 2-3 cans of Mountain Dew a day. He drinks 2-3 cups of coffee a day. He does drink about 3 beers a month. He doesn't wear compression stockings. He was doing Cardiac Rehab but has not done so recently. EK02/05/2023 ZIO MONITOR: 09/14/2022 Patient had a min HR of 46 bpm, max HR of 177 bpm, and avg HR of 77 bpm. Predominant underlying rhythm was Sinus Rhythm. 38 nonsustained Supraventricular Tachycardia runs occurred, the run with the fastest interval lasting 5 beats with a max rate of 133 bpm, the longest lasting 14 beats with an avg rate of 90 bpm. Isolated SVEs were rare (<1.0%), SVE Couplets were rare (<1.0%), and SVE Triplets were rare (<1.0%). Isolated VEs were rare (<1.0%), VE Couplets were rare (<1.0%), and no VE Triplets were present. ECHO: 09/13/2022 CONCLUSIONS: - Exam indication: Shortness of Breath - The left ventricle is normal in size. Left ventricular systolic function is mildly decreased. EF = 51 5% (2D biplane) Definity contrast used for endocardial border detection. Grade I left ventricular diastolic dysfunction. - The right ventricle is normal in size. Right ventricular systolic function is normal. - The left atrial cavity is mildly dilated. - The visualized aorta is borderline dilated with a maximal dimension of 3.9 cm. - Exam was compared with the prior echocardiographic exam performed on TILT TABLE TEST ([facility]): 07/31/2022 STUDY CONCLUSIONS: Abnormal head upright tilt table study. The patient's heart rate, blood pressure response and symptoms were most consistent with orthostatic intolerance. Combined with vigilant maintenance of euvolemia and maintaining a moderate salt intake, pharmacologic treatment with Florinef and/or a Serotonin Selective Reuptake Inhibitor (SSRI) such as Lexapro among other treatments have shown some effectiveness in the treatment of this condition. PAST MEDICAL HISTORY Diagnosis Date Ankylosing spondylitis ([facility]) Dr Hodges Ankylosing spondylitis ([facility]) Arthritis Back pain Cardiomyopathy ([facility]) Nonischemic Congestive Cerebrovascular small vessel disease 08/24/2016 On ASA DVT (deep venous thrombosis) ([facility]) Esophageal reflux Former smoker Kidney stones Major depressive disorder with single episode, in remission ([facility]) 08/24/2016 Morbid obesity with BMI of 40.0-44.9, adult ([facility]) Neuropathy Obstructive sleep apnea syndrome, severe On auto-CPAP - sleep study done on 07/10/16 Pneumonia PAST SURGICAL HISTORY Procedure Laterality Date BACK SURGERY HX 2013 BACK SURGERY HX 2015 MIDLINE INSERTION/CONSULT 09/05/2016 NOSE SURGERY HX sinus surg Dr Rojo PAST SURGICAL HISTORY OF 1986 R hand surgery PAST SURGICAL HISTORY OF 2001 R finger surgery PICC LINE INSERT/CONSULT 09/16/2016 TOTAL HIP JOINT REPLACEMENT Right SOCIAL HISTORY Social History Tobacco Use Smoking status: Former Packs/day: 2.00 Years: 21.00 Additional pack years: 0.00 Total pack years: 42.00 Types: Cigarettes Passive exposure: Past Smokeless tobacco: Never Tobacco comments: quit 1997 Vaping Use Vaping Use: Never used Substance Use Topics Alcohol use: No Drug use: No FAMILY HISTORY Problem Relation Age of Onset Breast Cancer Mother Stroke Mother other (Migraine) Mother may have had migraine HAs Emphysema Father Stroke Father Arthritis Father other (Negative) Father multiple sclerosis ALLERGIES: ALLERGIES Allergen Reactions Morphine Intolerance Patient thinks that with previous surgery he had a mental psychotic reaction with the combination of Lyrica and Morphine. Lisinopril Unknown Losartan Unknown MEDICATIONS: ASPIRIN ORAL^Take 81 mg by mouth once daily.^Disp: ^Rfl: atorvastatin (LIPITOR) 40 mg tablet^Take 40 mg by mouth once daily.^Disp: ^Rfl: DULoxetine (CYMBALTA) 60 mg capsule^Take 60 mg by mouth twice daily. ^Disp: ^Rfl: folic acid 1 mg tablet^Take 1 mg by mouth once daily.^Disp: ^Rfl: gabapentin (NEURONTIN) 300 mg capsule^Take 3 capsules by mouth three times daily for 30 days.^Disp:270 capsule^Rfl: 2 leflunomide (ARAVA) 20 mg tablet^Take 20 mg by mouth once daily.^Disp: ^Rfl: methotrexate 2.5 mg tablet^Take 12.5 mg by mouth one time a week.^Disp: ^Rfl: metoprolol succinate ER (TOPROL XL) 100 mg^Take 50 mg by mouth once daily.^Disp: ^Rfl: omeprazole (PRILOSEC) 20 mg capsule^Take 20 mg by mouth once daily.^Disp: ^Rfl: oxaprozin (DAYPRO) 600 mg tablet^Take 1,200 mg by mouth once daily.^Disp: ^Rfl: spironolactone (ALDACTONE) 25 mg tablet^Take 17.5 mg by mouth once daily.^Disp: ^Rfl: tamsulosin (FLOMAX) 0.4 mg^Take 0.4 mg by mouth once daily.^Disp: ^Rfl: venlafaxine ER (EFFEXOR XR) 75 mg 24 hr capsule^Take 150 mg by mouth once daily.^Disp: ^Rfl: Wt 286 lb (129.7kg) BP w/Orthostatic Vitals Date and Time Orthostatic BP Orthostatic Pulse BP Pulse BP Position BP Site BP Cuff Size 02/05/23 1258 97/64 100 -- -- Standing Left Arm -- 02/05/23 1257 109/69 76 -- -- Sitting Left Arm -- 02/05/23 1248 115/77 79 -- -- Supine Left Arm -- REVIEW OF SYSTEMS: GENERAL: Negative for: Weight loss or gain, Fever or Chills, Weakness and Sleep difficulties. Positive for:Sleep difficulties HEENT: Negative for: Headache, Impaired Vision, Glasses, Hearing Impairment, Ringing in Ears, Nosebleeds, Poor Dental Care, Bleeding Gums and Dentures., Positive for:Impaired Vision, Glasses, and Hearing Impairment NECK: Negative for: Swelling, Pain, Stiffness, Positive for: Pain and Stiffness RESPIRATORY: Negative for: Cough, Blood in Sputum, Shortness of breath, Wheezing, Apnea, Positive for: Shortness of breath GASTROINTESTINAL: Negative for: Trouble swallowing, Heartburn, Change in bowel habits, Blood in stool, Dark black stools, Positive for: Heartburn and Change in bowel habits MUSCULOSKELETAL: Negtive for: Muscle or joint pain, stiffness, Joint swelling, Positive for: Muscleor joint pain, Stiffness, and Joint swelling NEUROLOGIC/PSYCHIATRIC: Negative for: Weakness, Paralysis, Numbness, Tingling, Tremor, Nervousness or anxiety, Depressed mood, Memory loss, Positive for: Weakness, Paralysis, Numbness, Tingling, Depressed mood, Memory loss SKIN: Negative for: Rash, Itching HEMATOLOGICAL/LYMPHATIC: Negative for: Easy bruising, Easy bleeding, Positive for: Easy bleeding ENDOCRINE: Negative for: Heat or Cold Intolerance, Excessive Sweating, Frequent Urination, FrequentThirst Anna Duvall RN [facility] Syncope Center Score Please estimate the frequency of the following symptoms: Never-0, Rare-1, Occasional-2, Frequent-3, Daily-4, Constant*-5 Symptoms Subtotal Syncope/Near Syncope Score 3 Dizziness/Lightheadedness Score 4 Exercise Intolerance Score 5 Headache Score 5 Sleep Problems Score 5 Total Frequency Score 18 *For syncope/near syncope multiple episodes daily Please estimate the severity of the following symptoms: None-0, Minimal-1, Mild-2, Moderate-3, Severe-4, Intolerable-5 Symptoms Subtotal Palpitations/Tachycardia Score 2 Fatigue Score 4 Brain Fog Score 3 Shortness of Breath Score 4 GI Symptoms Score* 4 Total Severity Score 17 *GI symptoms include nausea, bloating, diarrhea, constipation, poor appetite, abdominal pain, earlysatiety Total of Both Sections: 35 documented in this encounter[facility] Evaluation note* Encounter Date Diagnosis Assessment Notes Treatment Notes Treatment Clinical Notes Dec, Pernicious anemia (ICD-10 - D51.0) [facility] Other 07-28-2023 NoteHNO ID: [id number] Author: Tricia Howard MD Service: ? Author Type: Physician Type: Progress Notes Filed: 11/30/2022 5:11 PM Note Text: Heart, V[facility] [place] Shanelle Flannery Department of Cardiovascular Medicine SECTION OF CLINICAL CARDIOLOGY OUTPATIENT VISIT DATE November 17, 2022 OUTPATIENT VISIT TYPE ESTABLISHED PRIMARY CARE PHYSICIAN: Silvana Lundberg ([facility]) [address] [place] [address] REFERRING PHYSICIAN: No referring provider defined for this encounter. CHIEF COMPLAINT: Follow-up appointment HISTORY OF PRESENT ILLNESS: Mr. Felix is a 62 year old male who presents today for a cardiovascular medicine follow-up visit for lightheadedness and shortness of breath. Patient was evaluated on 08/16/2022 due to ongoing symptoms of shortness of breath and palpitations. A VQ scan was requested as well as an exercise right heart cath as well as a Zio patch and an echo and he comes in for follow-up. He continues to experience similar symptoms with no change. No complaints of chest pain. PAST CARDIAC HISTORY: PAST MEDICAL HISTORY Diagnosis Date Ankylosing spondylitis ([facility]) Dr Hodges Ankylosing spondylitis ([facility]) Arthritis Back pain Cardiomyopathy ([facility]) Nonischemic Congestive Cerebrovascular small vessel disease 08/24/2016 On ASA DVT (deep venous thrombosis) ([facility]) Esophageal reflux Former smoker Kidney stones Major depressive disorder with single episode, in remission ([facility]) 08/24/2016 Morbid obesity with BMI of 40.0-44.9, adult ([facility]) Neuropathy Obstructive sleep apnea syndrome, severe On auto-CPAP - sleep study done on 07/10/16 Pneumonia PAST SURGICAL HISTORY Procedure Laterality Date BACK SURGERY HX 2013 BACK SURGERY HX 2015 MIDLINE INSERTION/CONSULT 09/05/2016 NOSE SURGERY HX sinus surg Dr Rojo PAST SURGICAL HISTORY OF 1986 R hand surgery PAST SURGICAL HISTORY OF 2001 R finger surgery PICC LINE INSERT/CONSULT 09/16/2016 TOTAL HIP JOINT REPLACEMENT Right SOCIAL HISTORY Social History Tobacco Use Smoking status: Former Packs/day: 2.00 Years: 21.00 Total pack years: 42.00 Types: Cigarettes Passive exposure: Past Smokeless tobacco: Never Tobacco comments: quit 1997 Substance Use Topics Alcohol use: No Drug use: No FAMILY HISTORY Problem Relation Age of Onset Breast Cancer Mother Stroke Mother other (Migraine) Mother may have had migraine HAs Emphysema Father Stroke Father Arthritis Father other (Negative) Father multiple sclerosis Patient-Entered Questionnaire Scores Patient Entered Questionnaires 11/10/2022 Average hours of sleep per day 6 Diagnosed with Sleep Apnea Yes Sleep Apnea Probability Snores loudly: No Tired, fatigued or sleepy in daytime: Yes Stops breathing or choking/gasping during sleep: Yes High blood pressure: No Sleep Apnea Probability Score 10/01/2022 Sleep Apnea Screen V2 64 (Recommend sleep study) Insomnia Severity Index (CLARISSA) 11/10/2022 Score 16 (Clinical insomnia - moderate severity) PROMIS Global Health - (T-Scores - the mean of general population = 50. Five points is a clinically meaningful difference.) 08/23/2017 01/09/2018 10/01/2022 Physical T-Score 32.4 29.6 26.7 Mental T-Score 31.3 38.8 31.3 Sleep Duration Level: N/A ALLERGIES: ALLERGIES Allergen Reactions Morphine Intolerance Patient thinks that with previous surgery he had a mental psychotic reaction with the combination of Lyrica and Morphine. Lisinopril Unknown Losartan Unknown MEDICATIONS: budesonide-formoterol (SYMBICORT) 160-4.5 mcg/actuation inhalerInhale 2 Puffs as instructed q 12 HR.Disp: Rfl: metoprolol succinate ER (TOPROL XL) 100 mgTake 50 mg by mouth once daily.Disp: Rfl: venlafaxine ER (EFFEXOR XR) 75 mg 24 hr capsuleTake 150 mg by mouth once daily.Disp: Rfl: albuterol HFA (PROVENTIL HFA, VENTOLIN HFA) 90 mcg/actuation inhalerDisp: Rfl: spironolactone (ALDACTONE) 25 mg tabletTake 17.5 mg by mouth once daily.Disp: Rfl: ASPIRIN ORALTake 81 mg by mouth once daily.Disp: Rfl: oxaprozin (DAYPRO) 600 mg tabletTake 1,200 mg by mouth once daily.Disp: Rfl: tamsulosin (FLOMAX) 0.4 mgTake 0.4 mg by mouth once daily.Disp: Rfl: atorvastatin (LIPITOR) 40 mg tabletTake 40 mg by mouth once daily.Disp: Rfl: gabapentin (NEURONTIN) 300 mg capsuleTake 3 capsules by mouth three times daily for 30 days.Disp: 270 capsuleRfl: 2 leflunomide (ARAVA) 20 mg tabletTake 20 mg by mouth once daily.Disp: Rfl: methotrexate 2.5 mg tabletTake 12.5 mg by mouth one time a week.Disp: Rfl: folic acid 1 mg tabletTake 1 mg by mouth once daily.Disp: Rfl: omeprazole (PRILOSEC) 20 mg capsuleTake 20 mg by mouth once daily.Disp: Rfl: DULoxetine (CYMBALTA) 60 mg capsuleTake 60 mg by mouth twice daily. Disp: Rfl: REVIEW OF SYSTEMS: PHYSICAL EXAMINATION: BP 107/74 (BP Site: Right Arm, BP Position: Sitting, BP Cuff (more content not included)...[facility]07-28-2023 Instructions* Patient Instructions* Tricia Howard MD - 11/17/2022 11:06 AM EDT Cardiopulmonary exercise testing documented in this encounterPar[facility]07-[facility]23 History of Present illness Narrative* Tricia Howard MD - 11/17/2022 10:46 AM EDT Images from the original note were not included. [facility] [place] Shanelle Flannery Department of Cardiovascular Medicine SECTION OF CLINICAL CARDIOLOGY OUTPATIENT VISIT DATE November 17, 2022 OUTPATIENT VISIT TYPE ESTABLISHED PRIMARY CARE PHYSICIAN: Silvana Lundberg ([facility]) [address] [place] [id number] REFERRING PHYSICIAN: No referring provider defined for this encounter. CHIEF COMPLAINT: Follow-up appointment HISTORY OF PRESENT ILLNESS: Mr. Felix is a 62 year old male who presents today for a cardiovascular medicine follow-up visit for lightheadedness and shortness of breath. Patient was evaluated on 08/16/2022 due to ongoing symptoms of shortness of breath and palpitations. A VQ scan was requested as well as an exercise right heart cath as well as a Zio patch and an echo and he comes in for follow-up. He continues to experience similar symptoms with no change. No complaints of chest pain. PAST CARDIAC HISTORY: PAST MEDICAL HISTORY Diagnosis Date Ankylosing spondylitis ([facility]) Dr Hodges Ankylosing spondylitis ([facility]) Arthritis Back pain Cardiomyopathy ([facility]) Nonischemic Congestive Cerebrovascular small vessel disease 08/24/2016 On ASA DVT (deep venous thrombosis) ([facility]) Esophageal reflux Former smoker Kidney stones Major depressive disorder with single episode, in remission ([facility]) 08/24/2016 Morbid obesity with BMI of 40.0-44.9, adult ([facility]) Neuropathy Obstructive sleep apnea syndrome, severe On auto-CPAP - sleep study done on 07/10/16 Pneumonia PAST SURGICAL HISTORY Procedure Laterality Date BACK SURGERY HX 2013 BACK SURGERY HX 2015 MIDLINE INSERTION/CONSULT 09/05/2016 NOSE SURGERY HX sinus surg Dr Rojo PAST SURGICAL HISTORY OF 1986 R hand surgery PAST SURGICAL HISTORY OF 2001 R finger surgery PICC LINE INSERT/CONSULT 09/16/2016 TOTAL HIP JOINT REPLACEMENT Right SOCIAL HISTORY Social History Tobacco Use Smoking status: Former Packs/day: 2.00 Years: 21.00 Total pack years: 42.00 Types: Cigarettes Passive exposure: Past Smokeless tobacco: Never Tobacco comments: quit 1997 Substance Use Topics Alcohol use: No Drug use: No FAMILY HISTORY Problem Relation Age of Onset Breast Cancer Mother Stroke Mother other (Migraine) Mother may have had migraine HAs Emphysema Father Stroke Father Arthritis Father other (Negative) Father multiple sclerosis Patient-Entered Questionnaire Scores Patient Entered Questionnaires 11/10/2022 Average hours of sleep per day 6 Diagnosed with Sleep Apnea Yes Sleep Apnea Probability Snores loudly: No Tired, fatigued or sleepy in daytime: Yes Stops breathing or choking/gasping during sleep: Yes High blood pressure: No Sleep Apnea Probability Score 10/01/2022 Sleep Apnea Screen V2 64 (Recommend sleep study) Insomnia Severity Index (CLARISSA) 11/10/2022 Score 16 (Clinical insomnia - moderate severity) PROMIS Global Health - (T-Scores - the mean of general population = 50. Five points is a clinicallymeaningful difference.) 08/23/2017 01/09/2018 10/01/2022 Physical T-Score 32.4 29.6 26.7 Mental T-Score 31.3 38.8 31.3 Sleep Duration Level: N/A ALLERGIES: ALLERGIES Allergen Reactions Morphine Intolerance Patient thinks that with previous surgery he had a mental psychotic reaction with the combination of Lyrica and Morphine. Lisinopril Unknown Losartan Unknown MEDICATIONS: budesonide-formoterol (SYMBICORT) 160-4.5 mcg/actuation inhaler^Inhale 2 Puffs as instructed q 12 HR.^Disp: ^Rfl: metoprolol succinate ER (TOPROL XL) 100 mg^Take 50 mg by mouth once daily.^Disp: ^Rfl: venlafaxine ER (EFFEXOR XR) 75 mg 24 hr capsule^Take 150 mg by mouth once daily.^Disp: ^Rfl: albuterol HFA (PROVENTIL HFA, VENTOLIN HFA) 90 mcg/actuation inhaler^^Disp: ^Rfl: spironolactone (ALDACTONE) 25 mg tablet^Take 17.5 mg by mouth once daily.^Disp: ^Rfl: ASPIRIN ORAL^Take 81 mg by mouth once daily.^Disp: ^Rfl: oxaprozin (DAYPRO) 600 mg tablet^Take 1,200 mg by mouth once daily.^Disp: ^Rfl: tamsulosin (FLOMAX) 0.4 mg^Take 0.4 mg by mouth once daily.^Disp: ^Rfl: atorvastatin (LIPITOR) 40 mg tablet^Take 40 mg by mouth once daily.^Disp: ^Rfl: gabapentin (NEURONTIN) 300 mg capsule^Take 3 capsules by mouth three times daily for 30 days.^Disp:270 capsule^Rfl: 2 leflunomide (ARAVA) 20 mg tablet^Take 20 mg by mouth once daily.^Disp: ^Rfl: methotrexate 2.5 mg tablet^Take 12.5 mg by mouth one time a week.^Disp: ^Rfl: folic acid 1 mg tablet^Take 1 mg by mouth once daily.^Disp: ^Rfl: omeprazole (PRILOSEC) 20 mg capsule^Take 20 mg by mouth once daily.^Disp: ^Rfl: DULoxetine (CYMBALTA) 60 mg capsule^Take 60 mg by mouth twice daily. ^Disp: ^Rfl: REVIEW OF SYSTEMS: PHYSICAL EXAMINATION: BP 107/74 (BP Site: Right Arm, BP Position: Sitting, BP Cuff Size: Large Adult) Pulse 62 Wt 132kg (291 lb) SpO2 97% BMI 37.35 kg/m General: Well appearing, in no acute distress. Skin: No clubbing, no cyanosis. Eyes: Extra ocular movements intact Oropharynx: Teeth in good repair. Neck: No jugular venous distention, no carotid bruits, carotids have a normal upstroke, no palpablethyromegaly. Lungs: Clear to auscultation bilaterally, no wheezing or rhonchi. Heart: Regular rhythm, PMI not displaced, S1, S2 normal, no S3, no S4, no heaves, no rub and no murmur. Abdomen: Soft, nontender, bowel sounds normal, no palpable organomegaly, no bruits. Extremities: No peripheral edema .Neuro: Oriented to person, place and time, alert, cooperative, gait coordinated. CARDIOVASCULAR MEDICINE TESTING: Last ECHO Result Conclusion ECHO Collected: 09/13/2022 1:14 PM (Final result) Impression: CONCLUSIONS: - Exam indication: Shortness of Breath - The left ventricle is normal in size. Left ventricular systolic function is mildly decreased. EF = 51 5% (2D biplane) Definity contrast used for endocardial border detection. Grade I left ventricular diastolic dysfunction. - The right ventricle is normal in size. Right ventricular systolic function is normal. - The left atrial cavity is mildly dilated. - The visualized aorta is borderline dilated with a maximal dimension of 3.9 cm. - Exam was compared with the prior CC echocardiographic exam performed on * * * Final * * * Last EKG Result Conclusion ECG COMPLETE Collected: 08/16/2022 7:21 AM (Final result) Impression: NORMAL SINUS RHYTHM NORMAL ECG Confirmed by YELENA FUENTES MD ([id number]) on 08/16/2022 10:01:53 AM Patient Name: Elena Felix : 1960 Ordering Provider: KELLEN BRYAN Indication: R42 Dizziness and giddiness Type of Monitor: Extended Monitoring-Zio Patch Enrollment Dates: 08/27/2022-09/10/2022 Patient had a min HR of 46 bpm, max HR of 177 bpm, and avg HR of 77 bpm. Predominant underlying rhythm was Sinus Rhythm. 38 nonsustained Supraventricular Tachycardia runs occurred, the run with the fastest interval lasting 5 beats with a max rate of 133 bpm, the longest lasting 14 beats with an avg rate of 90 bpm. Isolated SVEs were rare (<1.0%), SVE Couplets were rare (<1.0%), and SVE Triplets were rare (<1.0%). Isolated VEs were rare (<1.0%), VE Couplets were rare (<1.0%), and no VE Triplets were present. I have personally reviewed the Electrocardiogram. IMPRESSION: Mr. Felix is a 62 year old male longstanding history of ankylosing spondylitis been experiencing worsening of shortness of breath and labile blood pressure 1. Shortness of breath 2. Palpitations 3. History of cardiomyopathy with EF 25% (2021) 4. History of postoperative atrial fibrillation 5. History of nonobstructive coronary artery disease PLAN AND RECOMMENDATIONS: His cardiac echo shows borderline LV systolic function. Right heart cath showed no evidence of exercise-induced pulmonary hypertension. VQ scan showed low probability of pulmonary embolism. And undergone a left heart cath with nonobstructive coronary artery disease. At this juncture we will plan to proceed with a cardiac MRI as well as a cardiopulmonary exercise testing. No evidence of atrial fibrillation on current monitoring. For cardiovascular risk reduction patient is on aspirin and statin. CONTACT INFORMATION: Tricia Howard MD Section of Clinical Cardiology Elena and Kika Flannery Department of Cardiovascular Medicine Heart and V[facility] [place] [facility] Desk [address] [place] [address] Office Office Appointments: [phone] documented in this encounterPar[facility]07-[facility]23 NoteHNO ID: [id number] Author: Merly Marti MD Service: ? Author Type: Physician Type: Progress Notes Filed: 11/15/2022 11:35 AM Note Text: PATIENT NAME: Elena Felix [facility] NO.: [id number] ATTENDING PHYSICIAN: Merly Marti MD DATE OF SERVICE: November 15, 2022 Some of the elements of this note have been copied from my previous progress note dated 01/18/2022. All the information has been reviewed carefully. Dear Dr. Silvana Lundberg, here is an update on a follow up visit on male Elena Felix at the clinic November 15, 2022 Diagnosis: DVT Treatment History: HPI: Elena Felix is a 62 year old year old male here for follow up. No new complaints and continues to be off the Eliquis. He did have a bad sunburn and had R leg swelling and US was negative for DVT. He had seen neurology recently and had a slight elevatuion in his serum free kappa light chain and GILLIAN was negative. PAST MEDICAL HISTORY Diagnosis Date Ankylosing spondylitis ([facility]) Dr Hodges Ankylosing spondylitis ([facility]) Arthritis Back pain Cardiomyopathy ([facility]) Nonischemic Congestive Cerebrovascular small vessel disease 08/24/2016 On ASA DVT (deep venous thrombosis) ([facility]) Esophageal reflux Former smoker Kidney stones Major depressive disorder with single episode, in remission ([facility]) 08/24/2016 Morbid obesity with BMI of 40.0-44.9, adult ([facility]) Neuropathy Obstructive sleep apnea syndrome, severe On auto-CPAP - sleep study done on 07/10/16 Pneumonia Social History Tobacco Use Smoking status: Former Packs/day: 2.00 Years: 21.00 Total pack years: 42.00 Types: Cigarettes Passive exposure: Past Smokeless tobacco: Never Tobacco comments: quit 1997 Substance Use Topics Alcohol use: No Drug use: No FAMILY HISTORY Problem Relation Age of Onset Breast Cancer Mother Stroke Mother other (Migraine) Mother may have had migraine HAs Emphysema Father Stroke Father Arthritis Father other (Negative) Father multiple sclerosis Past medical, social and family history reviewed without any changes. REVIEW OF SYSTEMS GENERAL: No weight loss, malaise or fevers. No night sweats. HEENT: Negative for headaches, No changes in hearing or vision, no nose bleeds or other nasal problems. RESPIRATORY: Negative for cough, wheezing and shortness of breath CARDIOVASCULAR: Negative for chest pain, leg swelling and palpitations GI: Negative for abdominal discomfort, blood in stools or black stools and change in bowel habits : Negative for dysuria, frequency and incontinence MUSCULOSKELETAL: Negative for joint pain or swelling, back pain, and muscle pain. SKIN: Negative for lesions, rash, and itching. HEMATOLOGY/LYMPHOLOGY Negative for prolonged bleeding, bruising easily, and swollen nodes. NEURO: Negative for numbness or tingling of hands/feet. No weakness. PHYSICAL EXAMINATION: BP 130/73 Pulse 71 Temp (Src) 97.9 (Temporal) Resp 16 Ht 6' 2.016 (1.88m) Wt 296 lb 6.4 oz (134.4kg) SpO2 96% BMI 38.04 kg/(m2). Wt 135.5 kg (298 lb 12.8 oz) BMI 37.35 kg/m2 Last 3 Encounter Wt Readings: Date: Wt: 12/28/2021 135.5 kg (298 lb 12.8 oz) 09/21/2021 132.6 kg (292 lb 6.4 oz) 04/02/2019 141.4 kg (311 lb 12.8 oz) General appearance:ECOG PERFORMANCE STATUS: 0- Fully active, able to carry on all pre-disease performance w/o restriction. Patient in NAD. Skin: Skin color, texture, turgor normal. No rashes or lesions. Eyes: Anicteric sclera. Pupils are equally round and reactive to light. Extraocular movements are intact. Lymph Nodes: No cervical, supraclavicular, axillary or inguinal adenopathy. Oropharynx: Lips, mucosa, and tongue normal. Back: No pain to percussion. Negative SLR test Lungs clear to auscultation, No wheezing or rhonchi Heart: RRR without murmur, gallop, or rubs. Abdomen soft, non-tender. No masses, organomegaly Extremities: No deformities. No edema Neuro: Gait and speech normal. Reflexes normal and symmetric. Muscular strength intact. Sensation grossly intact. Rectal: Deferred : Deferred LABS: Glucose (mg/dL) Date Value 10/16/2022 93 12/15/2016 101 Potassium (mmol/L) Date Value 10/16/2022 5.3 12/15/2016 4.1 Sodium (mmol/L) Date Value 10/16/2022 139 12/15/2016 140 Chloride (mmol/L) Date Value 10/16/2022 104 12/15/2016 96 CO2 (mmol/L) Date Value 10/16/2022 24 12/15/2016 31 Creatinine (mg/dL) Date Value 10/16/2022 1.43 12/15/2016 0.87 BUN (mg/dL) Date Value 10/16/2022 18 12/15/2016 10 Anion Gap (mmol/L) Date Value 10/16/2022 11 12/15/2016 13 Calcium (mg/dL) Date Value 12/15/2016 9.3 Calcium, Total (mg/dL) Date Value 10/16/2022 9.8 Protein, Total (g/dL) Date Value 10/06/2022 6.7 12/15/2016 7.3 Albumin (g/dL) Date Value 10/06/2022 3.6 12/15/2016 2.9 Bilirubin, Total (mg/dL) Date Value 10/06/2022 0.2 12/15/2016 0.3 Alkaline Phosphatase (U/L) Date Value 10/06/2022 72 (more content not included)...[facility]07-18-[facility] Evaluation note* Encounter Date Diagnosis Assessment Notes Treatment Notes Treatment Clinical Notes Oct, Pernicious anemia (ICD-10 - D51.0) [facility] Other 07-11-2023 Evaluation note* Encounter Date Diagnosis Assessment Notes Treatment Notes Treatment Clinical Notes Oct, Cellulitis of right leg (ICD-10 - L03.115) Discussed antibiotics, pain med, consider referral to wound center if not healing well. [facility] Other 06-27-2023 Miscellaneous Notes* Telephone Encounter - Shelia Woods RN - 10/17/2022 9:06 AM EDT Called patient to discuss results of BMP with kidney function and potassium levels still elevated. Left generic message on non-identifying voicemail to return call or read Zoomph message sent to notify him. 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 Will followup with Dr. Howard Sep, Hyperkalemia (ICD-10 - E87.5) Pt had labs this morning, will obtain results and treat accordingly Sep, Stage 3 chronic kidney disease, unspecified whether stage 3a or 3b CKD (ICD-10 - N18.30) Will recheck labs, possibly checked this morning. [facility] Other 06-26-2023 NoteHNO ID: [id number] Author: Trip Grey MD Service: ? Author Type: Physician Type: Progress Notes Filed: 10/16/2022 10:30 AM Note Text: UNIVERSAL PROTOCOL / SAFETY CHECKLIST Procedure to be Performed: EMG Sign In: A Moment of CARE was completed. Personnel directly involved with the procedure wore the appropriate PPE (Personal Protective Equipment). Patient/Surrogate Stated/Verified: PATIENT VERIFIED(optional for EMERGENT procedures): Patient name, Date of , Relevant allergies, and The intended procedure Time Out Communication: Intended patient and procedure match the source documents. Correct side/site marked and visible. Sign Out: SIGN OUT (optional for EMERGENT procedures): Post-procedure follow-up management communicated and Plan of Care Visit completed when applicable. Luz Grey [facility]06-26-2023 History of Present illness Narrative* Trip Grey MD - 10/16/2022 9:23 AM EDT UNIVERSAL PROTOCOL / SAFETY CHECKLIST Procedure to be Performed: EMG Sign In: A Moment of CARE was completed. Personnel directly involved with the procedure wore the appropriate PPE (Personal Protective Equipment). Patient/Surrogate Stated/Verified: PATIENT VERIFIED(optional for EMERGENT procedures): Patient name, Date of , Relevant allergies, and The intended procedure Time Out Communication: Intended patient and procedure match the source documents. Correct side/site marked and visible. Sign Out: SIGN OUT (optional for EMERGENT procedures): Post-procedure follow-up management communicated and Plan of Care Visit completed when applicable. Luz Grey MD documented in this encounterPar[facility]06[facility]23 Miscellaneous Notes* Telephone Encounter - Shelia Woods RN - 10/12/2022 1:09 PM EDT Called and left a generic message on non-identifying voicemail for return call if he has any questions about the Zoomph message that Anna sent. Misti Woods RN documented in this encounterParma [facility]06-16-2023 NoteHNO ID: [id number] Author: Anna North APRN.ROLLER CHECKER Service: ? Author Type: Nurse Practitioner Type: Progress Notes Filed: 10/06/2022 10:14 AM Note Text: [facility] New Patient Evaluation Chief Complaint/Issues: Elena Felix is a 62 year old right-handed male seen in the [facility] for: New patient Orthostatic lightheadedness HPI: Consult placed by cardiology, Dr. Howard, 08/16/2022: Starting in 2019 post-op, began experiencing palpitations and tachycardia, reportedly in AF, thought to be just post-op. Continued to have palpitations and associated dyspnea. Symptoms progressed with more exertional dyspnea and decline in functional status. Echo showed EF as low as 25% in 2021, globally down LV. LHC with non-obst CAD and RHC with normal R sided pressures 06/2021. Continues to have exertional dyspnea, orthostatic lightheadedness/pre-syncope occurring every day. Tilt table test 07/2022 diagnosed ?POTS. Has been on midodrine and recently started pyroidostigmine last week. Doing cardiac rehab. Latest echo is up to EF 60%, abnormal septal motion. Follows with pulm, may have some obstructive and restrictive lung disease (?from , from methotrexate). Quit smoking 20 years ago. 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 Today we discuss his symptoms: Accompanied by , Maricel, who contributes to the history. Ganesh has ankylosing spondylitis, diagnosed at age 19. He has had multiple back and hip surgeries. His growth hacker is locally in [place]. He had surgery in 2019, had a severe wound infection, complicated E. Coli infection, C diff, was hospitalized for 9 weeks. He had blood clots in the legs and atrial fibrillation (which was new for him). He had prolonged rehab stay. He has neuropathy in the legs.He states it was in the feet prior to surgery, and has worsened severely (up to knees) after surgery in 2019. He has seen neurologists along the way, but none recently. Since that time, he has developed GI and heart issues. He sees cardiology in [facility]. He had a heart cath and showed he had low ejection fraction. He has had tilt table done (see below). He was diagnosed with orthostatic hypotension. He has been on midodrine and pyridostigmine. He had bad diarrhea with pyridostigmine. He also had diarrhea on the midodrine. He stopped these, and felt better. He felt these did not help him with his symptoms. He does have some radicular symptoms. When he turns the neck to the L he gets some numbness in the arm. He has done PT in the past and sees his growth hacker for the neck. PMH PAST MEDICAL HISTORY Diagnosis Date Ankylosing spondylitis ([facility]) Dr Hodges Ankylosing spondylitis ([facility]) Arthritis Back pain Cardiomyopathy ([facility]) Nonischemic Congestive Cerebrovascular small vessel disease 08/24/2016 On ASA DVT (deep venous thrombosis) ([facility]) Esophageal reflux Former smoker Kidney stones Major depressive disorder with single episode, in remission ([facility]) 08/24/2016 Morbid obesity with BMI of 40.0-44.9, adult ([facility]) Neuropathy Obstructive sleep apnea syndrome, severe On auto-CPAP - sleep study done on 07/10/16 Pneumonia PAST SURGICAL HISTORY Procedure Laterality Date BACK SURGERY HX 2012 BACK SURGERY HX 2015 MIDLINE INSERTION/CONSULT 09/05/2016 NOSE SURGERY HX sinus surg Dr Rojo PAST SURGICAL HISTORY OF 1986 R hand surgery PAST SURGICAL HISTORY OF 2001 R finger surgery PICC LINE INSERT/CONSULT 09/16/2016 TOTAL HIP JOINT REPLACEMENT Right ALLERGIES Allergen Reactions Morphine Intolerance Patient thinks that with previous surgery he had a mental psychotic reaction with the combination of Lyrica and Morphine. Lisinopril Unknown Losartan Unknown Social History Tobacco Use Smoking status: Former Packs/day: 2.00 Years: 21.00 Pack years: 42.00 Types: Cigarettes Passive exposure: Past Smokeless tobacco: Never Tobacco comments: quit 1997 Substance Use Topics Alcohol use: No Drug use: No FAMILY HISTORY Problem Relation Age of Onset Breast Cancer Mother Stroke Mother other (Migraine) Mother may have had migraine HAs Emphysema Father Stroke Father Arthritis Father other (Negative) Father multiple sclerosis ROS Review of Systems See below. Autonomic Screening Do you become dizzy or lightheaded with standing? yes sometimes and shortness of breath Do you notice your heart racing (tachycardia) with postural change? no Do you have syncope? no In the past month, did you have any falls? no How long can you stand (in minutes) before becoming symptomatic? yes 10-15 seconds Are symptoms worse after consuming a meal? no Are symptoms alleviated by sitting/laying down? yes Autonomic check list: YES (Y) or NO (N) Dry mouth: no Dry eyes: yes Change in sweat: yes increased sweating Constipation: no Abdominal Bl (more content not included)...[facility]06-16-2023 Instructions* Patient Instructions* Anna North APRN.ROLLER CHECKER - 10/06/2022 9:58 AM EDT 1) Labs 2) EMG 3) Discuss with urology changing to different medication (discontinuing Flomax) 4) Discuss your neck symptoms with your growth hacker 5) Medication consideration - Will discuss with Dr. Howard: Fludrocortisone (Florinef): Fludrocortisone (Florinef) is a medication designed to retain sodium and therefore retain water. Itincreases the blood volume and will aide in boosting the blood pressure. By increasing the blood pressure, patients can have less dizziness, lightheadedness, and fatigue associated with postural changes. Negative side effects include GI upset, water retention, and low potassium levels. Like all medications, there is some risk of allergic reaction. Please monitor the blood pressure closely while starting medication, and let me know if the medication is getting too high (systolic BP / top number >150). *We will need to check your potassium level (BMP) 2 weeks after starting Fludrocortisone as it can sometimes cause low potassium (hypokalemia). Droxidopa (Northera) Initial symptoms can be headaches and dizziness. You can use tylenol to treat headaches, and these symptoms should dissipate in the first few weeks. Some individuals will experience nausea. Like all medications, there is some risk of allergic reaction. Conservative Measures: Make all postural changes from lying to sitting or sitting to standing slowly. Drink to 2.0 -2.5 L of fluids per day. With bad symptoms, drink 500 cc of water quickly. This will result in an increased blood pressure within 5 minutes of drinking the water. The effect will last up to one hour and may improve orthostatic intolerance. Increase sodium in the diet to 3 - 5 g per day. If not helpful and BP is stable, may try 5-7 g per day. IF BLOOD PRESSURE RISES OR IS RISING CUT BACK ON SALT LOADING. Liquid IV, Nuun tabs, powerade / gatorade (zero formulations are OK), pedialyte, LMNT, Drip drop, Body Armor are all OK. Avoid large meals which can cause low blood pressure during digestion. It is better to eat smaller meals more often than three large meals. Avoid alcohol. Alcohol and cause blood to pool in the legs which may worsen low blood pressure reactions when standing. Avoid excessive caffeine intake as it may increase urine production and reduce blood volume. Perform lower extremity exercises to improve strength of the leg muscles. This will help prevent blood from a pooling in the legs when standing and walking. Preferred exercises are walking, squattingor stationery bicycling. An increased exercise duration by weekly should be considered. Use custom fitted elastic support stockings. These will reduce a tendency for blood to pool in the legs when standing and may improve orthostatic intolerance. Please try 30-40 mmHg compression. Raise the head of the bed by 6 to 10 inches. The entire bed must be at an angle. Raising only the head portion of the bed at waist level or using pillows will not be effective. Raising the head of the bed will reduce urine formation overnight and there will be more volume in the circulation in the morning. Use physical counter maneuvers such as leg crossing, or leg raising and resting the leg on a chair.These maneuvers increase blood pressure and can improve orthostatic intolerance quickly and transiently. documented in this encounterPar[facility]06-[facility]23 History of Present illness Narrative* Anna North APRN.SAHIL - 10/06/2022 9:00 AM EDT Images from the original note were not included. [facility] New Patient Evaluation Chief Complaint/Issues: Elena Felix is a 62 year old right-handed male seen in the [facility] for: New patient Orthostatic lightheadedness HPI: Consult placed by cardiology, Dr. Howard, 08/16/2022: Starting in 2019 post-op, began experiencing palpitations and tachycardia, reportedly in AF, thought to be just post-op. Continued to have palpitations and associated dyspnea. Symptoms progressed with more exertional dyspnea and decline in functional status. Echo showed EF as low as 25% in 2021, globally down LV. LHC with non-obst CAD and RHC with normal R sided pressures 06/2021. Continues to have exertional dyspnea, orthostatic lightheadedness/pre-syncope occurring every day. Tilt table test 07/2022 diagnosed ?POTS. Has been on midodrine and recently started pyroidostigmine last week. Doing cardiac rehab. Latest echo is up to EF 60%, abnormal septal motion. Follows with pulm, may have some obstructive and restrictive lung disease (?from , from methotrexate). Quit smoking 20 years ago. 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 Today we discuss his symptoms: Accompanied by , Maricel, who contributes to the history. Ganesh has ankylosing spondylitis, diagnosed at age 19. He has had multiple back and hip surgeries. His growth hacker is locally in [place]. He had surgery in 2019, had a severe wound infection, complicated E. Coli infection, C diff, was hospitalized for 9 weeks. He had blood clots in the legs and atrial fibrillation (which was new for him). He had prolonged rehab stay. He has neuropathy in the legs.He states it was in the feet prior to surgery, and has worsened severely (up to knees) after surgery in 2019. He has seen neurologists along the way, but none recently. Since that time, he has developed GI andheart issues. He sees cardiology in [facility]. He had a heart cath and showed he had low ejection fraction. He has had tilt table done (see below). He was diagnosed with orthostatic hypotension. He has been on midodrine and pyridostigmine. He had bad diarrhea with pyridostigmine. He also had diarrhea on the midodrine. He stopped these, and felt better. He felt these did not help him with his symptoms. He does have some radicular symptoms. When he turns the neck to the L he gets some numbness in the arm. He has done PT in the past and sees his growth hacker for the neck. PMH PAST MEDICAL HISTORY Diagnosis Date Ankylosing spondylitis ([facility]) Dr Hodges Ankylosing spondylitis ([facility]) Arthritis Back pain Cardiomyopathy ([facility]) Nonischemic Congestive Cerebrovascular small vessel disease 08/24/2016 On ASA DVT (deep venous thrombosis) ([facility]) Esophageal reflux Former smoker Kidney stones Major depressive disorder with single episode, in remission ([facility]) 08/24/2016 Morbid obesity with BMI of 40.0-44.9, adult ([facility]) Neuropathy Obstructive sleep apnea syndrome, severe On auto-CPAP - sleep study done on 07/10/16 Pneumonia PAST SURGICAL HISTORY Procedure Laterality Date BACK SURGERY HX 2013 BACK SURGERY HX 2015 MIDLINE INSERTION/CONSULT 09/05/2016 NOSE SURGERY HX sinus surg Dr Rojo PAST SURGICAL HISTORY OF 1986 R hand surgery PAST SURGICAL HISTORY OF 2001 R finger surgery PICC LINE INSERT/CONSULT 09/16/2016 TOTAL HIP JOINT REPLACEMENT Right ALLERGIES Allergen Reactions Morphine Intolerance Patient thinks that with previous surgery he had a mental psychotic reaction with the combination of Lyrica and Morphine. Lisinopril Unknown Losartan Unknown Social History Tobacco Use Smoking status: Former Packs/day: 2.00 Years: 21.00 Pack years: 42.00 Types: Cigarettes Passive exposure: Past Smokeless tobacco: Never Tobacco comments: quit 1997 Substance Use Topics Alcohol use: No Drug use: No FAMILY HISTORY Problem Relation Age of Onset Breast Cancer Mother Stroke Mother other (Migraine) Mother may have had migraine HAs Emphysema Father Stroke Father Arthritis Father other (Negative) Father multiple sclerosis ROS Review of Systems See below. Autonomic Screening Do you become dizzy or lightheaded with standing? yes sometimes and shortness of breath Do you notice your heart racing (tachycardia) with postural change? no Do you have syncope? no In the past month, did you have any falls? no How long can you stand (in minutes) before becoming symptomatic? yes 10-15 seconds Are symptoms worse after consuming a meal? no Are symptoms alleviated by sitting/laying down? yes Autonomic check list: YES (Y) or NO (N) Dry mouth: no Dry eyes: yes Change in sweat: yes increased sweating Constipation: no Abdominal Bloating with shortly after eating: yes Fluctuation of diarrhea and constipation: yes just diarrhea, never constipation Urination: yes taking Flomax Change in taste: no Challenge swallowing foods: no Skin changes of blue or redness to distal limbs: yes Fainting /near syncope/syncope: yes near-syncope with blackening of vision Dizziness: no Light headiness: yes Chest pain: yes occasionally Challenge in breathing: yes Tachycardia: yes Temperature Regulation: yes over-heat easily Bright lights: no Numbness / tingling: yes legs, hands, tingling into L arm Hx of head/neck trauma? Ankylosing spondylitis Hx of severe viral illness? COVID September 2021; prolonged hospital stay with bacterial infection Hx of autoimmune disease? Ankylosing spondylitis Current management of orthostatic condition Diet: Standard Exercise: cardiac rehab 3x weekly Water: 2 bottles x 16 ounces - not currently on fluid restriction Salt: Increasing sodium Stockings: Knee high Elevated HOB: Flat Alcohol intake: 1x per month; no heavy drinking hx Medications Current Outpatient Medications on File Prior to Visit Medication Sig pyridostigmine (MESTINON) 60 mg tablet Take 60 mg by mouth three times daily. budesonide-formoterol (SYMBICORT) 160-4.5 mcg/actuation inhaler Inhale 2 Puffs as instructed q 12 HR. metoprolol succinate ER (TOPROL XL) 100 mg Take 100 mg by mouth once daily. midodrine (PROAMATINE) 10 mg tablet Take 10 mg by mouth three times daily. venlafaxine ER (EFFEXOR XR) 75 mg 24 hr capsule Take 75 mg by mouth once daily. cyclobenzaprine (FLEXERIL) 10 mg tablet Take 10 mg by mouth three times daily. predniSONE (DELTASONE) 50 mg albuterol HFA (PROVENTIL HFA, VENTOLIN HFA) 90 mcg/actuation inhaler spironolactone (ALDACTONE) 25 mg tablet Take 25 mg by mouth once daily. ASPIRIN ORAL Take 81 mg by mouth once daily. oxaprozin (DAYPRO) 600 mg tablet Take 1,200 mg by mouth once daily. tamsulosin (FLOMAX) 0.4 mg Take 0.4 mg by mouth once daily. atorvastatin (LIPITOR) 40 mg tablet Take 40 mg by mouth once daily. gabapentin (NEURONTIN) 300 mg capsule Take 3 capsules by mouth three times daily for 30 days. leflunomide (ARAVA) 20 mg tablet Take 20 mg by mouth once daily. methotrexate 2.5 mg tablet Take 5 mg by mouth one time a week. folic acid 1 mg tablet Take 1 mg by mouth once daily. omeprazole (PRILOSEC) 20 mg capsule Take 20 mg by mouth once daily. DULoxetine (CYMBALTA) 60 mg capsule Take 60 mg by mouth twice daily. Current Facility-Administered Medications on File Prior to Visit Medication perflutren lipid microspheres 1.3 mL in NaCl (PF) 0.9% 10 mL injection (DEFINITY) sodium chloride 0.9 % (flush) 10 mL (BD POSIFLUSH) Relevant Current Medications: ASA 81 mg Atorvastatin 40 mg Cymbalta 60 mg BID Gabapentin 900 mg TID Effexor 75 mg Metoprolol ER 100 mg Spironolactone 17.5 mg Flomax 0.4 mg MTX Medications tried previously (failed): 1) Midodrine 10 mg TID 2) Pyridostigmine 60 mg Relevant Work Up To Date OSH Tilt 07/31/2022 ...The patient's baseline blood pressure was 118/72 mmHg with a heart rate of 75/minute. The patient was then raised to the 70 degree head upright tilt position with and pulse rate, blood pressure and cardiac rhythm were monitored and recorded each minute of the study for a maximum of 30 minutes. During the initial 20 minutes of the study, the patient's blood pressure ranged from a high of 113/85 mmHg to a low of 82/56 mmHg, while their heart rate ranged from a low of 100/minute to a high of 125/minute. During this period, the patient reported palpitations and shortness of breath. During the last 10 minutes of the study, nitroglycerin was not given due to low BP. During this time, the patient's blood pressure ranged from a high of 120/60 mmHg to a low of 74/48 mmHg, while their heart rate ranged from a low of 92/minute to a high of 127/minute. During this period, the patientreported moderate lightheadedness, palpitations and shortness of breath. At this point, the patient was returned to the supine position and monitored for an additional ten minutes. Once the patient felt well enough to be discharged home, they were discharged home with instructions to follow up with their primary care physician and/or box nailer as previously scheduled. STUDY CONCLUSIONS: Abnormal head upright tilt table study. The patient's heart rate, blood pressure response and symptoms were most consistent with orthostatic intolerance. Echo 09/13/2022 CONCLUSIONS: - Exam indication: Shortness of Breath - The left ventricle is normal in size. Left ventricular systolic function is mildly decreased. EF = 51 5% (2D biplane) Definity contrast used for endocardial border detection. Grade I left ventricular diastolic dysfunction. - The right ventricle is normal in size. Right ventricular systolic function is normal. - The left atrial cavity is mildly dilated. - The visualized aorta is borderline dilated with a maximal dimension of 3.9 cm. - Exam was compared with the prior echocardiographic exam performed on General Examination: BP 106/59 (BP Site: Right Arm, BP Position: Sitting, BP Cuff Size: Large Adult) Pulse 83 Ht 188cm (6' 2 ) Wt 131.5 kg (290 lb) SpO2 95% BMI 37.23 kg/m 10/06/22 0823 10/06/22 0932 10/06/22 0934 10/06/22 0935 BP: 106/59 Orthostatic BP: 116/71 97/68 78/62 BP Site: Right Arm BP Position: Sitting Supine Sitting Standing BP Cuff Size: Large Adult Pulse: 83 Orthostatic Pulse: 69 85 106 SpO2: 95% Weight: 131.5 kg (290 lb) Height: 188 cm (6' 2 ) Neurological Examination: Cognition The patient is alert and oriented times four. Lucid and organized in conversation. Able to provide detailed medical hx. Speech Speech is Normal in fluency, volume, and clarity. No dysarthria. Content and syntax are coherent. Comprehension: Able to follow several step commands. Cranial Nerves PERRLA No ptosis. Visual hkan are full to confrontation. Extraocular movements are intact. Smooth saccades and pursuits. No nystagmus. Facial motor exam is strong and symmetric. Equal sensation of trigeminal nerve - V1,V2, and V3. Soft palate elevation is symmetric, tongue is in midline, no tongue fasciculation. Neck range of motion is full. Trapezius Strength is symmetric, graded 5/5. Tone and Bulk Tone and bulk is normal and preserved bilaterally of arms. Hypertonicity of legs BL No apparent muscle atrophy. No pes cavus or hammer toes. Strength Right Left Shoulder Abduction 5/5 5/5 Elbow Flexion 5/5 5/5 Elbow Extension 5/5 5/5 Wrist Flexion 5/5 5/5 Wrist Extension 5/5 5/5 Finger Extension 5/5 5/5 Finger Flexion 5/5 5/5 Finger Abduction 5/5 5/5 Hip Flexion 4+/5 5/5 Hip Adduction 5/5 5/5 Hip Abduction 5/5 5/5 Knee Flexion 5/5 5/5 Knee Extension 5/5 5/5 Ankle Dorsiflexion 5/5 5/5 Ankle Plantarflexion 5/5 5/5 Movement/Coordination Finger-to- nose-finger bilaterally. No evidence of ataxia arms. No limb dysmetria of arms and legs. Rapid alternating movements of pronation and supination, finger and hand tapping intact. There is no asterixis of the hands. No rigidity, cog wheeling, or bradykinesia. Action tremor of bilateral (R>L); Rest tremor hands (L>r) No extrapyramidal findings or dystonia. Sensation Reduced temperature and pinprick isolated patch R forearm Reduced temperature below knee bilaterally to toes Reduced pinprick below knee bilaterally to toes Absent vibration at toes Reduced proprioception bilateral toes Reflexes Right Left Bicep 2/4 2/4 Tricep 2/4 2/4 Brachioradialis 1/4 1/4 Patella 1/4 2/4 Ankle 0/4 0/4 No Clonus. Negative Babinski (toes curl down). Mac sign not present. Gait Able to stand without upper body assistance. Normal station and stride. No festination or retropulsion. Good arm swing and body turn. Normal toe, heel, and tandem walk. Romberg's sign is negative. Assessment & Plan 10/06/2022 - Neuromuscular, Anna North, RAGINI.ROLLER CHECKER ASSESSMENT Elena Felix is a 62 year old here today for initial evaluation. Elena Felix has a has a past medical history of Ankylosing spondylitis (HCC), Ankylosing spondylitis, Arthritis, Back pain, Cardiomyopathy / HFrecEF (as low as 25% now 60%), Cerebrovascular small vessel disease (08/24/2016), DVT (deep venous thrombosis), Esophageal reflux, Former smoker, Kidney stones, Major depressive disorderwith single episode, in remission, Morbid obesity with BMI of 40.0-44.9, Neuropathy, Obstructive sleep apnea syndrome, and Pneumonia. He was diagnosed with ankylosing spondylitis at age 19. He has had multiple hip and back surgeries.He has new cervical radicular symptoms. He is managed by local rheumatology, and seen by [facility] rheumatology recently, Alexus Nance PA-C. He reports in 2019 he had spine surgery, complicated by E coli and C diff infections. He developed DVT and reportedly atrial fibrillation (thought to post-operative). He had an IVC filter which is now removed, on baby aspirin. He had ongoing symptoms of dyspnea, with echo demonstrating ED 25% at that time. Most recent echo demonstrating EF 60% with abnormal septal motion. He reports prior to the surgery, he had some neuropathy in his feet. After prolonged hospitalization, it progressed to his knees. Likely etiology is peripheral neuropathy 2/2 ankylosing spondylitis, complicated by progression due to critical illness neuropathy. Will check labs for mimics and obtainEMG for baseline. He had ongoing lightheadedness, tachycardia, and SOB. He had OSH tilt completed through [facility] 07/2022. Though I cannot see the minute by minute data, the test report states BP decreased throughout the first 20 minutes of head up tilt from 113/85 to 82/52 mmHg with HR increase from 100 to 125bpm. The last 10 minutes report range in BP from 120/60 to 74/48 (though they do not comment on whether the BP trends downwards) with HR ranging from 92 to 125 bpm. Decrease in BP was associated withsymptoms of SOB, lightheadedness, and palpitations. Based on the patient's orthostatic VS today, the above is consistent with orthostatic hypotension with compensatory tachycardia, not POTS. He was tried previously on midodrine and pyridostigmine, both of which caused diarrhea and abdominal pain. With his heart issues there are multiple considerations. We may consider decreasing metoprolol to reduce hypotension. We can also consider fludrocortisone or Droxidopa, which I will discuss with his primary box nailer, Dr. Howard (staff message sent 10/06). He is currently in cardiac rehab locally 3x per week. We discuss conservative measures as tolerated. PLAN 1) Labs 2) EMG 3) Discuss with urology changing to different medication (discontinuing Flomax) 4) Discuss your neck symptoms with your growth hacker 5) Medication consideration - Will discuss with Dr. Howard: Fludrocortisone (Florinef): Fludrocortisone (Florinef) is a medication designed to retain sodium and therefore retain water. Itincreases the blood volume and will aide in boosting the blood pressure. By increasing the blood pressure, patients can have less dizziness, lightheadedness, and fatigue associated with postural changes. Negative side effects include GI upset, water retention, and low potassium levels. Like all medications, there is some risk of allergic reaction. Please monitor the blood pressure closely while starting medication, and let me know if the medication is getting too high (systolic BP / top number >150). *We will need to check your potassium level (BMP) 2 weeks after starting Fludrocortisone as it can sometimes cause low potassium (hypokalemia). Droxidopa (Northera) Initial symptoms can be headaches and dizziness. You can use tylenol to treat headaches, and these symptoms should dissipate in the first few weeks. Some individuals will experience nausea. Like all medications, there is some risk of allergic reaction. Return 3-6 months. My impression and recommendations were discussed at length with the patient (and family members, ifpresent). The patient and family (if present) voiced understanding to my recommendations. All questions were answered. Medication side effects discussed as applicable. The patient was provided with adetailed after visit summary highlighting my impression and recommendations. I spent a total of 55 minutes on the date of the service which included preparing to see the patient, [id number] patient care, completing clinical documentation, obtaining and/or reviewing separately obtained history, performing a medically appropriate examination, counseling and educating the pat ient/family/caregiver, and ordering medications, tests, or procedures. Anna North APRN.[facility] General Neurology [address] [place]. [address] Appointment: [phone] CONSULT: Consultation requested by Dr. Howard for an opinion regarding change in blood pressure; lightheadedness. My final recommendations will be communicated back to the requesting physician by wayof shared Medical record or letter to requesting physician via US mail. During our face to face clinical encounter we discussed my concerns neurologically in terms of diagnosis, impact on health and activities of living, and addressed questions. I tried to reassure the patient and also address questions. I explained to the patient to call if any questions, to review res ults, and I want to see them return for neurological follow up as mychart as next steps of communication is agreed upon Patient verbalizes understanding and I have addressed concerns and questions at this visit Patient has my contacts, educational material provided, and my chart sign up. After visit summary discussed. 1. This office note has been dictated and may contain minor typographic errors that escaped review. 2. The nursing staff and medical assistants are a major part of YOUR TREATMENT TEAM and will be handling your phone calls and inquiries, if any. Unless explicitly told otherwise at the time of your office visit, your study results and ensuing treatment plans will be discussed during your follow-up appointment. If you do not have a follow-up appointment and wish to discuss any issues directly withme, please feel free to obtain one. 3. It is my practice to not fill disability or any other insurance-related forms/documention. All of the office notes, study results, and other pertinent documentation generated as part of your evaluation will be available to you and to your Primary Care Physician (PCP). Use of this material to complete such forms will be at the discretion of your PCP/referring physician documented in this encounterParma Community [facility]06-14-2023 NoteHNO ID: [id number] Author: RT Eamon(R) Service: Nuclear Medicine Author Type: Technologist Type: Progress Notes Filed: 10/04/2022 8:16 AM Note Text: RADIOLOGY SERVICE PROGRESS NOTE SERVICE DATE: 10/04/2022 SERVICE TIME: 8:15 AM PATIENT IDENTITY VERIFICATION COMPLETED USING TWO (2) STANDARD IDENTIFIERS: Name and Date of confirmed by patient verbally FALL SCREENING: Has the patient had 2 falls in the last year or 1 fall with injury or currently using an Ambulatory Assistive Device (Walker, Cane, Wheelchair, Crutches, etc.)? No PATIENT GENDER DATA: .male ALLERGIES: Reviewed and unchanged MEDICATIONS REVIEWED: Yes PATIENT RELEVANT IMPLANT DATA REVIEWED: Not Applicable CREATININE: Creatinine Date Value Ref Range Status 12/28/2021 1.05 0.73 - 1.22 mg/dL Final 12/15/2016 0.87 0.73 - 1.22 mg/dL Final 12/14/2016 0.89 0.73 - 1.22 mg/dL Final Estimated Glomerular Filtration Rate Date Value Ref Range Status 12/28/2021 81 >=60 mL/min/1.73m? Final Comment: Estimated Glomerular Filtration Rate (eGFR) is calculated using the 2020 CKD-EPI creatinine equation. This equation utilizes serum creatinine, sex, and age as parameters. The creatinine assay has traceable calibration to isotope dilution-mass spectrometry. Refer to KDIGO guidelines for clinical interpretation. In patients with unstable renal function, e.g. those with acute kidney injury, the eGFR may not accurately reflect actual GFR. eGFR- Date Value Ref Range Status 12/15/2016 >60 Final P.O.C.T. RESULTS: N/A October 04, [address] PERFORMED: No IV SITE: Ambulatory: Not applicable POST EXAM PIV STATUS: Not applicable PROCEDURE TYPE: VQ Scan: 0.8 mCi of Tc99m DTPA was inhaled. 5.0 mCi of Tc99m MAA was administered IV. ADMINISTRATION TIME: 8:10 PATIENT DISCHARGED TO: Ambulatory patient, left CT department area. A Diagnostic radioactive procedure has taken place, with no further precautions necessary other than routine body substance precautions. More information regarding radiation safety can be found using this link: [email or web address]%[email or web address] SIGNATURE: RT Eamon(R) PATIENT NAME: Elena Felix DATE: October 04, 2022 TIME: 8:15 AM PAGER/CONTACT #:[facility]06-14-2023 History of Present illness Narrative* RT Eamon(R) - 10/04/2022 8:30 AM EDT RADIOLOGY SERVICE PROGRESS NOTE SERVICE DATE: 10/04/2022 SERVICE TIME: 8:15 AM PATIENT IDENTITY VERIFICATION COMPLETED USING TWO (2) STANDARD IDENTIFIERS: Name and Date of confirmed by patient verbally FALL SCREENING: Has the patient had 2 falls in the last year or 1 fall with injury or currently using an Ambulatory Assistive Device (Walker, Cane, Wheelchair, Crutches, etc.)? No PATIENT GENDER DATA: .male ALLERGIES: Reviewed and unchanged MEDICATIONS REVIEWED: Yes PATIENT RELEVANT IMPLANT DATA REVIEWED: Not Applicable CREATININE: Creatinine Date Value Ref Range Status 12/28/2021 1.05 0.73 - 1.22 mg/dL Final 12/15/2016 0.87 0.73 - 1.22 mg/dL Final 12/14/2016 0.89 0.73 - 1.22 mg/dL Final Estimated Glomerular Filtration Rate Date Value Ref Range Status 12/28/2021 81 >=60 mL/min/1.73m Final Comment: Estimated Glomerular Filtration Rate (eGFR) is calculated using the 2020 CKD-EPI creatinine equation. This equation utilizes serum creatinine, sex, and age as parameters. The creatinine assay has traceable calibration to isotope dilution- mass spectrometry. Refer to KDIGO guidelines for clinical interpretation. In patients with unstable renal function, e.g. those with acute kidney injury, the eGFRmay not accurately reflect actual GFR. eGFR- Date Value Ref Range Status 12/15/2016 >60 Final P.O.C.T. RESULTS: N/A October 04, [address] PERFORMED: No IV SITE: Ambulatory: Not applicable POST EXAM PIV STATUS: Not applicable PROCEDURE TYPE: VQ Scan: 0.8 mCi of Tc99m DTPA was inhaled. 5.0 mCi of Tc99m MAA was administered IV. ADMINISTRATION TIME: 8:10 PATIENT DISCHARGED TO: Ambulatory patient, left CT department area. A Diagnostic radioactive procedure has taken place, with no further precautions necessary other than routine body substance precautions. More information regarding radiation safety can be found using[employer] link: [email or web address] 20Diagnostic%20Nuclear%20Medicine%20Procedures.pdf SIGNATURE: ISSA Knutson) PATIENT NAME: Elena Felix DATE: October 04, 2022 TIME: 8:15 AM PAGER/CONTACT #: documented in this encounterParma Community General Hospital06-13-2023 NoteThe is a pleasant 62-year-old male with nonischemic cardiomyopathy, chronic systolic heart failure (HFrEf), Mild nonobstructive coronary artery disease (right heart catheterization 09/2021), hypertension, dyslipidemia who was found to have orthostatic hypotension and previously evaluated in the Cardiac Clinic at the [facility]. He last saw Maite Ba advanced practice registered nurse practitioner in July 2022. He underwent head upright tilt table testing positive for orthostatic intolerance at [facility]. He was commenced on pyridostigmine several months ago. He has been referred to the Syncope and Autonomic Disorders Clinic in the Heart and Vascular Center at the [facility] for further management of the orthostatic hypotension. Chief Complaint: Follow-up for orthostatic hypotension and pyridostigmine. Had severe diarrhea and stomach cramps so stopped both medications. Blood pressure continues to drop with standing. Low 50/30mmhg. Near syncope. Black vision. Blood pressure highest: SBP 140[facility]mm[facility]x [facility]ylosis spondylitis. Cardiac and rheumatology team. 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 Autoimmune specialist Neurologist. Recent event monitor: 2 weeks. SVT 38 episodes. Longest Review of Systems Cardiovascular: Positive for near-syncope. Negative for syncope. Orthostatic intolerance. Near syncope. No falls. Noted cardiac rehab, almost 30 bpm drop in BP. Musculoskeletal: Negative for falls. Neurological: Positive for dizziness and light-headedness. Objective Neurological: Mental Status: Alert and oriented to person, place and time. Comments: Able to convey information. On platform with . 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 Diagnoses of Orthostatic hypotension, Ankylosing spondylitis, unspecified site of spine (CMS/HCC), and Paroxysmal SVT (supraventricular tachycardia) (CMS/HCC) were also pertinent to this visit. Problem List Items Addressed This Visit Nervous Autoimmune autonomic neuropathy - Primary Musculoskeletal Ankylosing spondylitis (CMS/HCC) Other Visit Diagnoses Orthostatic hypotension Paroxysmal SVT (supraventricular tachycardia) (CMS/HCC) The patient is likely suffering from an autonomic neuropathy, subset postural orthostatic tachycardia syndrome. The autonomic nervous system (ANS) is responsible for a number of body processes that are not under voluntary control including heart rate and blood pressure regulation, GI regulation, sweating, breathing, function and temperature regulation- to name the most important processes. Autonomic neuropathy is often associated with fluctuations in heart rate and blood pressure. We know a number of patients develop ANS dysregulation post exposure to pathogens including viruses, bacteria, sepsis, inoculations, surgeries, trauma. We believe this exposure likely results in an autoinflammatory or autoimmune type response which effects the ANS. Our research (Loren et. al, 2019 JAHA) and others have identified autoantibodies to autonomic receptors. Indeed, in the aforementioned study we evaluated 75 patients with postural orthostatic tachycardia syndrome (POTS), orthostatic intolerance (OI), dysautonomia and found that 92% of the sample had high circulating levels of a previously unidentified auto antibody to alpha-1 adrenergic smooth muscle receptors. In the positive participants, over 50% had ANS Mu receptor antibodies. We are currently enrolling patients with autonomic dysfunction (postural orthostatic tachycardia syndrome POTS/ orthostatic intolerance OI) which developed [id number] infection. 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 Likely these Covid long haulers develop an inflammatory/autoimmune response that effects the ANS. Mr Angela has longstanding ankylosis spondylitis. Failed pyridostigmine and midodrine. Consider droxidopa or Northera. Discussed reconditioning, fluids, conservative measures. Will follow [facility] providers and rtc 3months.[facility]05-24-2023 Nurse Note* Yuliana Tubbs RN - 09/13/2022 1:00 PM EDT Patient identified by name and date of : Yes Patient here for Echo Peripheral IV started # 24 gauge via right arm. IV site WNL and noted with good blood return. Patient tolerated well. Medication administration given per order: Perflutren lipid microspheres (Definity) 1.1mg/ml injection: 1.3ml definity in 8.7ml Normal saline. A total of 4ml definity/saline mixture given IV in divided doses at 1345 by Yuliana Tubbs RN. Reactions: None Definity lot # [id number] Definity expiration date 10/22/2023 Patient completed test. IV discontinued with catheter tip intact. No bleeding or bruising noted. Remained with patient for 15 minutes post Definity injection. The patient reports no symptoms of any kind. Yuliana Tubbs RN documented in this encounterParma Community General Hospital05-09-2023 NoteHNO ID: [id number] Author: Marcia Diamond MD Service: ? Author Type: Fellow Type: Progress Notes Filed: 08/29/2022 3:04 PM Note Text: HEART FAILURE PROCEDURAL CONSENT NOTE Surgery/Procedure Date: 08/29/2022 1:57 PM Procedure: Right heart cath with exercise Informed Consent: The risks including radiation skin injury, benefits, and anticipated outcomes of the procedure, the risk and benefits of the alternatives to the procedure,and the roles and tasks of the personnel to be involved, were discussed with the patient, and the patient consents to the procedure and agrees to proceed. Consented by: Marcia Diamond MD See separate Procedural Sedation Consent form if sedation is to be administered. UNIVERSAL PROTOCOL / SAFETY CHECKLIST Procedure to be Performed: Right heart catheterization with exercise Sign In: A Moment of CARE was completed. Personnel directly involved with the procedure wore the appropriate PPE (Personal Protective Equipment). Patient/Surrogate Stated/Verified: PATIENT VERIFIED(optional for EMERGENT procedures): Patient name, Date of , Relevant allergies, and The intended procedure Time Out Communication: Intended patient and procedure match the source documents. Consent documented and matches the intended procedure. Relevant labs, photos, and/or imaging studies have been reviewed. Correct side/site marked and visible. Medications required for procedure verified. Fire risk assessed and interventions discussed. No implant(s) inserted. Sign Out: SIGN OUT (optional for EMERGENT procedures): No specimen collected. All instruments, equipment, possible retained foreign bodies accounted for. Post-procedure follow-up management communicated and Plan of Care Visit completed when applicable. Marcia Diamond MD History and Physical: Elena Felix is a 61 year old year-old patient here for Right heart cath with exercise for the indication of worsening heart failure. Last seen 08/29/22 with documented HANDP verified. Pertinent examination today revealed: Lungs: clear to auscultation Heart: Regular rate AND rhythm, S1, S2, no S3, No murmers or clicks Post Procedural Plan: Transfer back to inpatient nursing unit SIGNATURE: Marcia Diamond MD PATIENT NAME: Elena Felix DATE: August 29, 2022 TIME: 1:57 [facility]05-09-2023 History of Present illness Narrative* Marcia Diamond MD - 08/29/2022 1:57 PM EDT HEART FAILURE PROCEDURAL CONSENT NOTE Surgery/Procedure Date: 08/29/2022 1:57 PM Procedure: Right heart cath with exercise Informed Consent: The risks including radiation skin injury, benefits, and anticipated outcomes of the procedure, therisk and benefits of the alternatives to the procedure,and the roles and tasks of the personnel to be involved, were discussed with the patient, and the patient consents to the procedure and agrees to proceed. Consented by: Marcia Diamond MD See separate Procedural Sedation Consent form if sedation is to be administered. UNIVERSAL PROTOCOL / SAFETY CHECKLIST Procedure to be Performed: Right heart catheterization with exercise Sign In: A Moment of CARE was completed. Personnel directly involved with the procedure wore the appropriate PPE (Personal Protective Equipment). Patient/Surrogate Stated/Verified: PATIENT VERIFIED(optional for EMERGENT procedures): Patient name, Date of , Relevant allergies, and The intended procedure Time Out Communication: Intended patient and procedure match the source documents. Consent documented and matches the intended procedure. Relevant labs, photos, and/or imaging studies have been reviewed. Correct side/site marked and visible. Medications required for procedure verified. Fire risk assessed and interventions discussed. No implant(s) inserted. Sign Out: SIGN OUT (optional for EMERGENT procedures): No specimen collected. All instruments, equipment, possible retained foreign bodies accounted for. Post-procedure follow-up management communicated and Plan of Care Visit completed when applicable. Marcia Diamond MD History and Physical: Elena Felix is a 61 year old year-old patient here for Right heart cath with exercise for the indication of worsening heart failure. Last seen 08/29/22 with documented H&P verified. Pertinent examination today revealed: Lungs: clear to auscultation Heart: Regular rate & rhythm, S1, S2, no S3, No murmers or clicks Post Procedural Plan: Transfer back to inpatient nursing unit SIGNATURE: Marcia Diamond MD PATIENT NAME: Elena Felix DATE: August 29, 2022 TIME: 1:57 PM documented in this encounterParma [facility] Hospital05-08-2023 Miscellaneous Notes* Telephone Encounter - Lauryn Bethea RN - 08/28/2022 2:00 PM EDT CARDIOVASCULAR LAB INSTRUCTIONS: Readiness to Learn: Cognitive Ability: Alert and oriented Motivation To Learn: Interested Family/Significant Other Support: High - Very involved in pt care Instruction Provided To: Patient and family member Patient Learns Best By: Verbal Instruction Factors Affecting Learning: None Physical Limitations Affecting Learning: None Learning Response: Procedure: Right Heart Diagnostic Pre procedure education topics: Arrival time/NPO Status/Medications/Travel Instructions/Restrictions Patient/Family Response Evaluation: Verbalizes understanding Follow Up Plan and Medication: As directed by physician Instruction/Supplemental Material Given: Cardiac catheterization instructions, procedure information, hospital information, hotel information. Instructed By Silvina Bethea RN, RN. In Department of CARDIOLOGY. documented in this encounterParma Community [facility] Hospital04-26-2023 NoteHNO ID: [id number] Author: Catia Snell Service: ? Author Type: ? Type: Progress Notes Filed: 08/16/2022 10:07 AM Note Text: [facility]04-26-2023 NoteHNO ID: [id number] Author: Alexus Nance PA-C Service: ? Author Type: Physician Financial Reserve Clerk Type: Progress Notes Filed: 09/19/2022 6:06 AM Note Text: Rheumatology Outpatient Clinic Date of Service: 08/16/2022 Patient: Elena Felix Medical Record: [id number] Primary Care Physician: Silvana Lundberg MD Last Rheumatology visit: None at the [facility] Referring Provider: Tricia Howard MD [address] [facility] [address] Consultation requested by Tricia Howard MD for an opinion regarding Ankylosing Spondylitis. My final recommendations will be communicated back to the requesting physician by way of shared Medical record or letter to requesting physician via US mail. History of Present Illness Elena Felix is a 62 year old White male who presents on 08/16/2022 for an in-person visit for evaluation of Ankylosing Spondylitis. 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 Patient reports he was diagnosed with ankylosing spondylitis at age 19. Reports diagnosis was from a blood test that is only 50% accurate but that his spine began to fuse 10 years later. He currently follows with a growth hacker, Dr. Brad Hodges, in [place], [place] who he is happy with. However, reports growth hacker told him, he is only his third patient with ankylosing spondylitis and so presents to [facility] rheum for assistance on treatment plan. Current treatment includes leflunomide 20 daily, methotrexate 12.5 mg once weekly, and folic acid 1 mg daily. He also has prescriptions for gabapentin and cymbalta for his neuropathy. He will occasionally have prednisone tapers as well, but has not had any recently. Past use of Humira, but this was d/c after he developed severe headaches and developed white mass areas in the brain. Reports his growth hacker has considered a TNF-alpha inhibitor again, but is cautious is of the risks. He has had joint injections in the elbows and spine. He additionally follows with cardiology and pulmonology for his comorbidities. Symptoms include joint pain in the neck, thumbs, elbows, and back. Reports past spinal surgeries that helped with some of his symptoms. Reports pain in spine improved after surgery and he gained four inches in height . He also has foot pain, but reports this is 2/2 to his neuropathy. Occasionally right elbow will swell. He has significant limitation in range of motion given his spinal history. Reports he has had inflammatory eye disease 2-3 times, each relieved with medication. Reports last instance was over 5 years ago. Reports this was mostly in the right eye. Denies IBD or psoriasis. Patient-Entered Data PAIN EVALUATION 08/16/2022 1020 Pain Level: 3 Pain Location: Back hips, thumbs Description: Dull PROMIS Assessments PROMIS Assessments 02/08/2017 08/23/2017 01/09/2018 Physical Health Percentile 2.07 % 3.92 % 2.07 % Mental Health Percentile 5.26 % 3.07 % 13.14 % Pain Score 7 6 8 RAPID 3 [place] Activities of Daily Living No Data Dress self? - Get in and out of bed? - Walk outdoors? - Wash and dry body? - Get in and out of car? - RAPID 3 Disease Activity Weighed Score Levels: 0 - 1: Near Remission 1.3 - 2.0: Low Severity 2.3 - 4.0: Moderate Severity 4.3 - 10.0: High Severity No flowsheet data found. Review of Systems ROS RHEUMATOLOGY All other reviewed and negative other than HPI. Past Medical History PAST MEDICAL HISTORY Diagnosis Date Ankylosing spondylitis ([facility]) Dr Hodges Ankylosing spondylitis ([facility]) Arthritis Back pain Cardiomyopathy ([facility]) Nonischemic Congestive Cerebrovascular small vessel disease 08/24/2016 On ASA DVT (deep venous thrombosis) ([facility]) Esophageal reflux Former smoker Kidney stones Major depressive disorder with single episode, in remission ([facility]) 08/24/2016 Morbid obesity with BMI of 40.0-44.9, adult ([facility]) Neuropathy Obstructive sleep apnea syndrome, severe On auto-CPAP - sleep study done on 07/10/16 Pneumonia Past Surgical History PAST SURGICAL HISTORY Procedure Laterality Date BACK SURGERY HX 2012 BACK SURGERY HX 2015 MIDLINE INSERTION/CONSULT 09/05/2016 NOSE SURGERY HX sinus surg Dr Rojo PAST SURGICAL HISTORY OF 1986 R hand surgery PAST SURGICAL HISTORY OF 2001 R finger surgery PICC LINE INSERT/CONSULT 09/16/2016 TOTAL HIP JOINT REPLACEMENT Right Family History FAMILY HISTORY Problem Relation Age of Onset Breast Cancer Mother Stroke Mother other (Migraine) Mother may have had migraine HAs Emphysema Father Stroke Father Arthritis Father other (Negative) Father multiple sclerosis Social Histo (more content not included)...[facility]04-26-[facility] Instructions* Patient Instructions* Alexus Nance PA-C - 08/16/2022 10:56 AM EDT Recommend continuing Methotrexate and leflunomide Recommend starting a biologic which will help prevent progression in the spine, IL-17 inhibitor or noel inhibitor. TNF-alpha inhibitors contraindicated due to past TNF-alpha induced demyelinating syndrome. Prefer IL-17 inhibitor (Cosentyx or Taltz) given the safety for comorbid heart conditions. Would avoid noel inhibitors (xeljanz and rinvoq) given heart and blood clot history. Cosentyx appears to be a preferred agent with insurance. Recommend initiating Cosentyx, continuing methotrexate and leflunomide. Once stable on new biologic. Could discontinue leflunomide, but would recommend continuing methotrexate for peripheral joint manifestations and uveitis coverage. Continue to follow with primary growth hacker for medication changes and monitoring. [facility] can continue to assist with treatment plan as needed. documented in [facility] NoteHNO ID: [id number] Author: Tricia Howard MD Service: ? Author Type: Physician Type: Progress Notes Filed: 08/16/2022 1:01 PM Note Text: [facility] [place] [facility] Department of Cardiovascular Medicine SECTION OF CLINICAL CARDIOLOGY OUTPATIENT VISIT DATE August 16, 2022 OUTPATIENT VISIT TYPE NEW PRIMARY CARE PHYSICIAN : Silvana Lundberg ([place]) [address] [place] [id number] REFERRING PHYSICIAN: No referring provider defined for this encounter. CHIEF COMPLAINT: Palpitations, lightheadedness HISTORY OF PRESENT ILLNESS: Mr. Felix is a 61 year old male with PMHx of ankylosing spondylitis requiring multiple back surgeries, provoked DVT and a subsequent short segment distal DVT in 08/2021 which was unprovoked, not currently on AC, and HFrecEF (as low as 25% now 60%) 2/ NICM. Starting in 2019 post-op, began experiencing palpitations and tachycardia, reportedly in AF, thought to be just post-op. Continued to have palpitations and associated dyspnea. Symptoms progressed with more exertional dyspnea and decline in functional status. Echo showed EF as low as 25% in 2021, globally down LV. LHC with non-obst CAD and RHC with normal R sided pressures 06/2021. Continues to have exertional dyspnea, orthostatic lightheadedness/pre-syncope occurring every day. Tilt table test 07/2022 diagnosed ?POTS. Has been on midodrine and recently started pyroidostigmine last week. Doing cardiac rehab. Latest echo is up to EF 60%, abnormal septal motion. Follows with pulm, may have some obstructive and restrictive lung disease (?from , from methotrexate). Quit smoking 20 years ago. 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 Fmaily hx of stroke in mother and father. PAST MEDICAL HISTORY Diagnosis Date Ankylosing spondylitis ([facility]) Dr Hodges Ankylosing spondylitis ([facility]) Arthritis Back pain Cardiomyopathy ([facility]) Nonischemic Congestive Cerebrovascular small vessel disease 08/24/2016 On ASA DVT (deep venous thrombosis) ([facility]) Esophageal reflux Former smoker Kidney stones Major depressive disorder with single episode, in remission ([facility]) 08/24/2016 Morbid obesity with BMI of 40.0-44.9, adult ([facility]) Neuropathy Obstructive sleep apnea syndrome, severe On auto-CPAP - sleep study done on 07/10/16 Pneumonia PAST SURGICAL HISTORY Procedure Laterality Date BACK SURGERY HX 2012 BACK SURGERY HX 2014 MIDLINE INSERTION/CONSULT 09/05/2016 NOSE SURGERY HX sinus surg Dr Rojo PAST SURGICAL HISTORY OF 1986 R hand surgery PAST SURGICAL HISTORY OF 2001 R finger surgery PICC LINE INSERT/CONSULT 09/16/2016 TOTAL HIP JOINT REPLACEMENT Right SOCIAL HISTORY Social History Tobacco Use Smoking status: Former Packs/day: 2.00 Years: 21.00 Pack years: 42.00 Types: Cigarettes Passive exposure: Past Smokeless tobacco: Never Tobacco comments: quit 1998 Substance Use Topics Alcohol use: No Drug use: No FAMILY HISTORY Problem Relation Age of Onset Breast Cancer Mother Stroke Mother other (Migraine) Mother may have had migraine HAs Emphysema Father Stroke Father Arthritis Father other (Negative) Father multiple sclerosis ALLERGIES: ALLERGIES Allergen Reactions Morphine Intolerance Patient thinks that with previous surgery he had a mental psychotic reaction with the combination of Lyrica and Morphine. Lisinopril Unknown Losartan Unknown MEDICATIONS: pyridostigmine (MESTINON) 60 mg tablet Take 60 mg by mouth three times daily. budesonide-formoterol (SYMBICORT) 160-4.5 mcg/actuation inhaler Inhale 2 Puffs as instructed q 12 HR. metoprolol succinate ER (TOPROL XL) 100 mg Take 100 mg by mouth once daily. midodrine (PROAMATINE) 10 mg tablet Take 10 mg by mouth three times daily. venlafaxine ER (EFFEXOR XR) 75 mg 24 hr capsule Take 75 mg by mouth once daily. cyclobenzaprine (FLEXERIL) 10 mg tablet Take 10 mg by mouth three times daily. predniSONE (DELTASONE) 50 mg levoFLOXacin (LEVAQUIN) 500 mg tablet Take 750 mg by mouth once daily. albuterol HFA (PROVENTIL HFA, VENTOLIN HFA) 90 mcg/actuation inhaler spironolactone (ALDACTONE) 25 mg tablet Take 25 mg by mouth once daily. ASPIRIN ORAL Take 81 mg by mouth once daily. oxaprozin (DAYPRO) 600 mg tablet Take 1,200 mg by mouth once daily. tamsulosin (FLOMAX) 0.4 mg Take 0.4 mg by mouth once daily. atorvastatin (LIPITOR) 40 mg tablet Take 40 mg by mouth once daily. gabapentin (NEURONTIN) 300 mg capsule Take 3 capsules by mouth three times daily for 30 days. leflunomide (ARAVA) 20 mg tablet Take 20 mg by mouth once daily. methotrexate 2.5 mg tablet Take 5 mg by mouth one time a week. folic acid 1 mg tablet Take 1 mg by mouth once daily. omeprazole (PRILOSEC) 20 mg capsule Take 20 mg by mouth once daily. DULoxetine (CYMBALTA) 60 mg capsule Take 60 mg by mouth twice daily. REVIEW OF SYSTEMS (more content not included)...[facility] 08-16-2022 History of Present illness Narrative* Catia Snell - 08/16/2022 10:06 AM EDT E documented in this encounterPar[facility] History of Present illness Narrative* Alexus Nance PA-C - 08/16/2022 10:00 AM EDT Images from the original note were not included. Rheumatology Outpatient Clinic Date of Service: 08/16/2022 Patient: Elena Felix Medical Record: [id number] Primary Care Physician: Silvana Lundberg MD Last Rheumatology visit: None at the [facility] Referring Provider: Tricia Howard MD [id number] [facility] [id number] Consultation requested by Tricia Howard MD for an opinion regarding Ankylosing Spondylitis. My finalrecommendations will be communicated back to the requesting physician by way of shared Medical record or letter to requesting physician via US mail. History of Present Illness Elena Felix is a 62 year old White male who presents on 08/16/2022 for an in-person visit for evaluation of Ankylosing Spondylitis. 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 Patient reports he was diagnosed with ankylosing spondylitis at age 19. Reports diagnosis was from a blood test that is only 50% accurate but that his spine began to fuse 10 years later. He currently follows with a growth hacker, Dr. Brad Hodges, in [place], [place] who he is happy with. However,reports growth hacker told him, he is only his third patient with ankylosing spondylitis and so presents to [facility] rheum for assistance on treatment plan. Current treatment includes leflunomide 20 daily, methotrexate 12.5 mg once weekly, and folic acid 1 mg daily. He also has prescriptions for gabapentin and cymbalta for his neuropathy. He will occasionally have prednisone tapers as well, but has not had any recently. Past use of Humira, but this was d/c after he developed severe headaches and developed white mass areas in the brain. Reports his growth hacker has considered a TNF-alpha inhibitor again, but is cautious is of the risks. He has had joint injections in the elbows and spine. Headditionally follows with cardiology and pulmonology for his comorbidities. Symptoms include joint pain in the neck, thumbs, elbows, and back. Reports past spinal surgeries that helped with some of his symptoms. Reports pain in spine improved after surgery and he gained four inches in height . He also has foot pain, but reports this is 2/2 to his neuropathy. Occasionally right elbow will swell. He has significant limitation in range of motion given his spinal history. Reports he has had inflammatory eye disease 2-3 times, each relieved with medication. Reports last instance was over 5 years ago. Reports this was mostly in the right eye. Denies IBD or psoriasis. Patient-Entered Data PAIN EVALUATION 08/16/2022 1020 Pain Level: 3 Pain Location: Back hips, thumbs Description: Dull PROMIS Assessments PROMIS Assessments 02/08/2017 08/23/2017 01/09/2018 Physical Health Percentile 2.07 % 3.92 % 2.07 % Mental Health Percentile 5.26 % 3.07 % 13.14 % Pain Score 7 6 8 RAPID 3 [place] Activities of Daily Living No Data Dress self? - Get in and out of bed? - Walk outdoors? - Wash and dry body? - Get in and out of car? - RAPID 3 Disease Activity Weighed Score Levels: 0 - 1: Near Remission 1.3 - 2.0: Low Severity 2.3 - 4.0: Moderate Severity 4.3 - 10.0: High Severity No flowsheet data found. Review of Systems ROS RHEUMATOLOGY All other reviewed and negative other than HPI. Past Medical History PAST MEDICAL HISTORY Diagnosis Date Ankylosing spondylitis ([facility]) Dr Hodges Ankylosing spondylitis ([facility]) Arthritis Back pain Cardiomyopathy ([facility]) Nonischemic Congestive Cerebrovascular small vessel disease 08/24/2016 On ASA DVT (deep venous thrombosis) ([facility]) Esophageal reflux Former smoker Kidney stones Major depressive disorder with single episode, in remission ([facility]) 08/24/2016 Morbid obesity with BMI of 40.0-44.9, adult ([facility]) Neuropathy Obstructive sleep apnea syndrome, severe On auto-CPAP - sleep study done on 07/10/16 Pneumonia Past Surgical History PAST SURGICAL HISTORY Procedure Laterality Date BACK SURGERY HX 2013 BACK SURGERY HX 2015 MIDLINE INSERTION/CONSULT 09/05/2016 NOSE SURGERY HX sinus surg Dr Rojo PAST SURGICAL HISTORY OF 1986 R hand surgery PAST SURGICAL HISTORY OF 2001 R finger surgery PICC LINE INSERT/CONSULT 09/16/2016 TOTAL HIP JOINT REPLACEMENT Right Family History FAMILY HISTORY Problem Relation Age of Onset Breast Cancer Mother Stroke Mother other (Migraine) Mother may have had migraine HAs Emphysema Father Stroke Father Arthritis Father other (Negative) Father multiple sclerosis Social History Social History Tobacco Use Smoking status: Former Packs/day: 2.00 Years: 21.00 Pack years: 42.00 Types: Cigarettes Passive exposure: Past Smokeless tobacco: Never Tobacco comments: quit 1997 Substance Use Topics Alcohol use: No Drug use: No Current Medications Current Outpatient Medications on File Prior to Visit Medication Sig pyridostigmine (MESTINON) 60 mg tablet Take 60 mg by mouth three times daily. budesonide-formoterol (SYMBICORT) 160-4.5 mcg/actuation inhaler Inhale 2 Puffs as instructed q 12 HR. metoprolol succinate ER (TOPROL XL) 100 mg Take 100 mg by mouth once daily. midodrine (PROAMATINE) 10 mg tablet Take 10 mg by mouth three times daily. venlafaxine ER (EFFEXOR XR) 75 mg 24 hr capsule Take 75 mg by mouth once daily. cyclobenzaprine (FLEXERIL) 10 mg tablet Take 10 mg by mouth three times daily. predniSONE (DELTASONE) 50 mg albuterol HFA (PROVENTIL HFA, VENTOLIN HFA) 90 mcg/actuation inhaler spironolactone (ALDACTONE) 25 mg tablet Take 25 mg by mouth once daily. ASPIRIN ORAL Take 81 mg by mouth once daily. oxaprozin (DAYPRO) 600 mg tablet Take 1,200 mg by mouth once daily. tamsulosin (FLOMAX) 0.4 mg Take 0.4 mg by mouth once daily. atorvastatin (LIPITOR) 40 mg tablet Take 40 mg by mouth once daily. gabapentin (NEURONTIN) 300 mg capsule Take 3 capsules by mouth three times daily for 30 days. leflunomide (ARAVA) 20 mg tablet Take 20 mg by mouth once daily. methotrexate 2.5 mg tablet Take 5 mg by mouth one time a week. folic acid 1 mg tablet Take 1 mg by mouth once daily. omeprazole (PRILOSEC) 20 mg capsule Take 20 mg by mouth once daily. DULoxetine (CYMBALTA) 60 mg capsule Take 60 mg by mouth twice daily. Current Facility-Administered Medications on File Prior to Visit Medication perflutren lipid microspheres 1.3 mL in NaCl (PF) 0.9% 10 mL injection (DEFINITY) sodium chloride 0.9 % (flush) 10 mL (BD POSIFLUSH) Labs CBC Latest Ref Rng & Units 12/14/2016 12/15/2016 12/15/2016 12/28/2021 WBC 3.70 - 11.00 k/uL 9.53 10.06 9.32 5.45 HEMOGLOBIN 13.0 - 17.0 g/dL 8.4(L) 9.0(L) 8.4(L) 10.9(L) HEMOGLOBIN TOTAL, WHOLE BLOOD 13.0 - 17.0 g/dL - - - - HEMATOCRIT 39.0 - 51.0 % 28.6(L) 29.7(L) 28.4(L) 34.6(L) PLATELETS 150 - 400 k/uL 603(H) 671(H) 682(H) 230 ABS NEUT (ANC) 1.45 - 7.50 k/uL 6.96 - 5.78 3.45 ABS LYM 1.00 - 4.00 K/uL - - - - ABS LYMPH 1.00 - 4.00 k/uL 1.08 - 1.98 0.95(L) CMP Latest Ref Rng & Units 12/13/2016 12/14/2016 12/15/2016 12/28/2021 SODIUM 136 - 144 mmol/L 141 143 140 143 POTASSIUM 3.7 - 5.1 mmol/L 4.0 4.3 4.1 3.9 CHLORIDE 97 - 105 mmol/L 100 101 96(L) 110(H) CO2 22 - 30 mmol/L 29 30 31(H) 27 GLUCOSE 74 - 99 mg/dL 100(H) 102(H) 101(H) 109(H) BUN 9 - 24 mg/dL 9 8(L) 10 17 CREATININE 0.73 - 1.22 mg/dL 0.86 0.89 0.87 1.05 CALCIUM, TOTAL 8.5 - 10.2 mg/dL 8.6 8.7 9.3 9.2 AST 14 - 40 U/L 11(L) 10(L) 12(L) 27 ALT 10 - 54 U/L 8(L) 7(L) 9(L) 23 ALKALINE PHOSPHATASE 38 - 113 U/L 50 53 53 69 ESR, WSR Latest Ref Rng & Units 02/17/2016 09/10/2016 09/24/2016 WSR 0 - 15 mm/hr 27(H) 65(H) 102(H) CRP Latest Ref Rng & Units 09/20/2016 09/21/2016 09/22/2016 09/24/2016 CRP <0.9 mg/dL 19.0(H) 17.9(H) 12.1(H) 13.0(H) CK Latest Ref Rng & Units 09/08/2016 09/16/2016 09/17/2016 CK 51 - 298 U/L 253 46(L) 36(L) Antibodies Latest Ref Rng & Units 12/14/2016 12/15/2016 12/28/2021 12/28/2021 BETA 2 GLYCOPROTEIN, IGM <20 SMU - - <9 <9 BETA 2 GLYCOPROTEIN, IGM <20 SMU - - <9 <9 CARDIOLIPIN AB, IGG <15.0 GPL - - <9.0 <9.0 CARDIOLIPIN AB, IGM <12.5 MPL - - <9.0 <9.0 CARDIOLIPIN AB, IGA <12.0 APL - - <9.0 <9.0 PT SEC 9.7 - 13.0 sec - 15.6(H) 11.3 - PT INR 0.9 - 1.3 - 1.4(H) 1.1 - PTT 23.0 - 32.4 sec 44.9(H) 38.2(H) 25.4 - PLATELET NEUT Negative - - Negative - DRVVT SCREEN 32.0 - 45.7 seconds - - 42.5 - DRVVT CONFIRM RATIO <1.32 - - 1.04 - DRVVT 1 TO 1 MIX 32.0 - 45.7 seconds - - 39.3 - HEX PHASE SCREEN 34.0 - 51.8 seconds - - 42.8 - HEX PHASE CONFIRM 34.2 - 47.9 seconds - - 41.0 - HEX PHASE DELTA <7.1 delta seconds - - 1.8 - APTT SCREEN 24.0 - 35.1 seconds - - 26.9 - THROMBIN TIME <18.6 seconds - - 17.0 - Urinalysis Latest Ref Rng & Units 11/04/2015 08/24/2016 09/24/2016 PROTEIN, URINE Negative mg/dL Negative 30(A) Negative RBC, URINE 0 - 3 /HPF 0-3 0-3 0-3 Imaging Last XR Hand/Finger - Impression Only No resulted procedures found. Last MRI Hand - Impression Only No resulted procedures found. Last XR Chest - Impression Only XR CHEST AP PORTABLE Collected: 12/15/2016 8:00 AM (Final result) Impression: IMPRESSION: Lines, tubes, and devices: Left PICC terminates in the mid to lower SVC. Fixation hardware in the lower thoracic/upper lumbar spine is partially imaged. Lungs and pleura: Moderate left pleural effusion is noted, which tracks along the left lateral chest wall and which may be partially loculated. The left pleural effusion likely courses to the left lung apex. Adjacent opacities in the left lung may be related to atelectasis and/or ... Last XR Cervical Spine - Impression Only No resulted procedures found. Health Maintenance HEPATITIS C SCREENING Never done HIV SCREENING Never done DTAP,TDAP,TD(1 - Tdap) Never done SHINGRIX VACCINE(1 of 2) Never done LIPID SCREEN Never done PNEUMOCOCCAL(2 - PCV) due on 08/14/2015 PROSTATE CANCER SCREENING DISCUSSION Never done COLORECTAL CANCER SCREENING due on 01/21/2021 DIABETES SCREEN due on 12/28/2024 INFLUENZA Completed COVID-19 VACCINE Completed Physical Exam GENERAL APPEARANCE: Well groomed. Alert and oriented x 3. In no distress. VITAL SIGNS: There were no vitals taken for this visit. Physical Exam Vitals reviewed. Constitutional: General: He is not in acute distress. Appearance: Normal appearance. He is not toxic-appearing. HENT: Head: Normocephalic and atraumatic. Right Ear: External ear normal. Left Ear: External ear normal. Nose: Nose normal. No congestion or rhinorrhea. Mouth/Throat: Mouth: Mucous membranes are moist. Pharynx: No oropharyngeal exudate or posterior oropharyngeal erythema. Eyes: General: No scleral icterus. Extraocular Movements: Extraocular movements intact. Conjunctiva/sclera: Conjunctivae normal. Pupils: Pupils are equal, round, and reactive to light. Cardiovascular: Rate and Rhythm: Normal rate and regular rhythm. Pulses: Normal pulses. Heart sounds: Normal heart sounds. Pulmonary: Effort: Pulmonary effort is normal. No respiratory distress. Breath sounds: Normal breath sounds. No stridor. No wheezing, rhonchi or rales. Musculoskeletal: General: Tenderness present. No swelling. Comments: Significant restriction in range of motion in the spine, all levels. No peripheral synovitis. Skin: General: Skin is warm and dry. Coloration: Skin is not jaundiced. Findings: No bruising, erythema, lesion or rash. Neurological: General: No focal deficit present. Mental Status: He is alert and oriented to person, place, and time. Motor: No weakness. Gait: Gait normal. Deep Tendon Reflexes: Reflexes normal. Psychiatric: Mood and Affect: Mood normal. Behavior: Behavior normal. Thought Content: Thought content normal. Judgment: Judgment normal. 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 On exam, patient with significant spinal restriction. Pe ripheral manifestations are quiet. Unclear how active the spine is. However, patient has not been on any rheumatic medication that targets the spine for years. Would recommend medication that targetsthe spine to help prevent any additional progression as patient is still having cervical spine pain. Would recommend IL-17 inhibitor given safety for comorbid heart conditions. TNF-alpha inhibitors as patient appears to have history of TNF-alpha demyelinating disease. Would also avoid noel inhibitors given cardiac history and DVT history. While adding biologic, current treatment should be continued. Once stable, may d/c leflunomide to reduce medication burden. Would recommend continuing methotrexate for uveitis coverage given his history. Patient should continue following with his primary growth hacker. Follow up as needed. Plan Orders this visit: Office Visit on 08/16/22 CONSULT TO RHEUM/IMMUN DISEASE (M45.0) Ankylosing spondylitis of multiple sites in spine (HCC) Recommend continuing Methotrexate and leflunomide Recommend starting a biologic which will help prevent progression in the spine, IL-17 inhibitor or noel inhibitor. TNF-alpha inhibitors contraindicated due to past TNF-alpha induced demyelinating syndrome. Prefer IL-17 inhibitor (Cosentyx or Taltz) given the safety for comorbid heart conditions. Would avoid noel inhibitors (xeljanz and rinvoq) given heart and blood clot history. Cosentyx appears to be a preferred agent with insurance. Recommend initiating Cosentyx, continuing methotrexate and leflunomide. Once stable on new biologic. Could discontinue leflunomide, but would recommend continuing methotrexate for peripheral joint manifestations and uveitis coverage. Continue to follow with primary growth hacker for medication changes and monitoring. [facility] can continue to assist with treatment plan as needed. Return if symptoms worsen or fail to improve. I spent a total of 60 minutes on the date of the service which included preparing to see the patient, [id number] patient care, completing clinical documentation, obtaining and/or reviewing separately obtained history, performing a medically appropriate examination, and counseling and educating the patient/family/caregiver. Alexus Nance PA-C Orthopaedic & Rheumatologic [facility] Date: August 16, 2022 Time: 10:00 AM documented in this encounterPar[facility]23 NoteHNO ID: [id number] Author: Latrice Mondragon MD Service: ? Author Type: Physician Type: Procedures Filed: 09/20/2022 1:31 PM Note Text: Patient Name: Elena Felix : 1960 Ordering Provider: KELLEN BRYAN Indication: R42 Dizziness and giddiness Type of Monitor: Extended Monitoring-Zio Patch Enrollment Dates: 08/27/2022-09/10/2022 Patient had a min HR of 46 bpm, max HR of 177 bpm, and avg HR of 77 bpm. Predominant underlying rhythm was Sinus Rhythm. 38 nonsustained Supraventricular Tachycardia runs occurred, the run with the fastest interval lasting 5 beats with a max rate of 133 bpm, the longest lasting 14 beats with an avg rate of 90 bpm. Isolated SVEs were rare (<1.0%), SVE Couplets were rare (<1.0%), and SVE Triplets were rare (<1.0%). Isolated VEs were rare (<1.0%), VE Couplets were rare (<1.0%), and no VE Triplets were present. I reviewed the above report and concur with findings Latrice Mondragon MD Electrophysiology staff pager [phone] [facility]04-26-2023 History of Present illness Narrative* Tricia Howard MD - 08/16/2022 8:19 AM EDT Images from the original note were not included. [facility] V[facility] Thor[facility] [place] [facility] Department of Cardiovascular Medicine SECTION OF CLINICAL CARDIOLOGY OUTPATIENT VISIT DATE August 16, 2022 OUTPATIENT VISIT TYPE NEW PRIMARY CARE PHYSICIAN : Silvana Lundberg ([facility]) [address] [place] [id number] REFERRING PHYSICIAN: No referring provider defined for this encounter. CHIEF COMPLAINT: Palpitations, lightheadedness HISTORY OF PRESENT ILLNESS: Mr. Felix is a 61 year old male with PMHx of ankylosing spondylitis requiring multiple back surgeries, provoked DVT and a subsequent short segment distal DVT in 08/2021 which was unprovoked, not currently on AC, and HFrecEF (as low as 25% now 60%) 2/2 NICM. Starting in 2019 post-op, began experiencing palpitations and tachycardia, reportedly in AF, thought to be just post-op. Continued to have palpitations and associated dyspnea. Symptoms progressed with more exertional dyspnea and decline in functional status. Echo showed EF as low as 25% in 2021, globally down LV. LHC with non-obst CAD and RHC with normal R sided pressures 06/2021. Continues to have exertional dyspnea, orthostatic lightheadedness/pre-syncope occurring every day. Tilt table test 07/2022 diagnosed ?POTS. Has been on midodrine and recently started pyroidostigmine last week. Doing cardiac rehab. Latest echo is up to EF 60%, abnormal septal motion. Follows with pulm, may have some obstructive and restrictive lung disease (?from , from methotrexate). Quit smoking 20 years ago. Used to work in [employer]. Fmaily hx of stroke in mother and father. PAST MEDICAL HISTORY Diagnosis Date Ankylosing spondylitis ([facility]) Dr Hodges Ankylosing spondylitis ([facility]) Arthritis Back pain Cardiomyopathy ([facility]) Nonischemic Congestive Cerebrovascular small vessel disease 08/24/2016 On ASA DVT (deep venous thrombosis) ([facility]) Esophageal reflux Former smoker Kidney stones Major depressive disorder with single episode, in remission ([facility]) 08/24/2016 Morbid obesity with BMI of 40.0-44.9, adult ([facility]) Neuropathy Obstructive sleep apnea syndrome, severe On auto-CPAP - sleep study done on 07/10/16 Pneumonia PAST SURGICAL HISTORY Procedure Laterality Date BACK SURGERY HX 2013 BACK SURGERY HX 2015 MIDLINE INSERTION/CONSULT 09/05/2016 NOSE SURGERY HX sinus surg Dr Rojo PAST SURGICAL HISTORY OF 1986 R hand surgery PAST SURGICAL HISTORY OF 2001 R finger surgery PICC LINE INSERT/CONSULT 09/16/2016 TOTAL HIP JOINT REPLACEMENT Right SOCIAL HISTORY Social History Tobacco Use Smoking status: Former Packs/day: 2.00 Years: 21.00 Pack years: 42.00 Types: Cigarettes Passive exposure: Past Smokeless tobacco: Never Tobacco comments: quit 1997 Substance Use Topics Alcohol use: No Drug use: No FAMILY HISTORY Problem Relation Age of Onset Breast Cancer Mother Stroke Mother other (Migraine) Mother may have had migraine HAs Emphysema Father Stroke Father Arthritis Father other (Negative) Father multiple sclerosis ALLERGIES: ALLERGIES Allergen Reactions Morphine Intolerance Patient thinks that with previous surgery he had a mental psychotic reaction with the combination of Lyrica and Morphine. Lisinopril Unknown Losartan Unknown MEDICATIONS: pyridostigmine (MESTINON) 60 mg tablet Take 60 mg by mouth three times daily. budesonide-formoterol (SYMBICORT) 160-4.5 mcg/actuation inhaler Inhale 2 Puffs as instructed q 12 HR. metoprolol succinate ER (TOPROL XL) 100 mg Take 100 mg by mouth once daily. midodrine (PROAMATINE) 10 mg tablet Take 10 mg by mouth three times daily. venlafaxine ER (EFFEXOR XR) 75 mg 24 hr capsule Take 75 mg by mouth once daily. cyclobenzaprine (FLEXERIL) 10 mg tablet Take 10 mg by mouth three times daily. predniSONE (DELTASONE) 50 mg levoFLOXacin (LEVAQUIN) 500 mg tablet Take 750 mg by mouth once daily. albuterol HFA (PROVENTIL HFA, VENTOLIN HFA) 90 mcg/actuation inhaler spironolactone (ALDACTONE) 25 mg tablet Take 25 mg by mouth once daily. ASPIRIN ORAL Take 81 mg by mouth once daily. oxaprozin (DAYPRO) 600 mg tablet Take 1,200 mg by mouth once daily. tamsulosin (FLOMAX) 0.4 mg Take 0.4 mg by mouth once daily. atorvastatin (LIPITOR) 40 mg tablet Take 40 mg by mouth once daily. gabapentin (NEURONTIN) 300 mg capsule Take 3 capsules by mouth three times daily for 30 days. leflunomide (ARAVA) 20 mg tablet Take 20 mg by mouth once daily. methotrexate 2.5 mg tablet Take 5 mg by mouth one time a week. folic acid 1 mg tablet Take 1 mg by mouth once daily. omeprazole (PRILOSEC) 20 mg capsule Take 20 mg by mouth once daily. DULoxetine (CYMBALTA) 60 mg capsule Take 60 mg by mouth twice daily. REVIEW OF SYSTEMS: See above PHYSICAL EXAMINATION: BP 114/78 (BP Site: Left Arm) Pulse 89 Ht 188 cm (6' 2 ) Wt 132.4 kg (291 lb 12.8 oz) SpO2 96% BMI 37.46 kg/m General: Well appearing, in no acute distress. Skin: No clubbing, no cyanosis. Eyes: Extra ocular movements intact Oropharynx: Teeth in good repair. Neck: No jugular venous distention, no carotid bruits, carotids have a normal upstroke, no palpablethyromegaly. Lungs: Clear to auscultation bilaterally, no wheezing or rhonchi. Heart: Regular rhythm, PMI not displaced, S1, S2 normal, no S3, no S4, no heaves, no rub and no murmur. Abdomen: Soft, nontender, bowel sounds normal, no palpable organomegaly, no bruits. Extremities: L > R 1+ pitting edema in LE Neuro: Oriented to person, place and time, alert, cooperative, gait coordinated. CARDIOVASCULAR MEDICINE TESTING: Electrocardiogram: NSR I have personally reviewed the Electrocardiogram. IMPRESSION: 61 year old male with PMHx of ankylosing spondylitis requiring multiple back surgeries and resultant neuropathy, provoked DVT and a subsequent short segment distal DVT in 08/2021 which was unprovoked,not currently on AC, and HFrecEF (as low as 25% now 60%) 2/2 NICM. He presents for second opinion on exertional dyspnea, palpitations, and his recent diagnosis of POTS. 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 Plan: - obtain echo here, OSH echo is limited. - V/Q scan - exercise RHC to assess for diastolic dysfunction with exertion - syncope clinic for autonomic function testing, there is data reporting possible association of ankylosing spondylitis with autonomic dysfunction. - 2 week Zio - referral to Dr. Heaton in rheumatology for management of - pending above workup, may consider consult to pulmonology and lung function testing CONTACT INFORMATION: Kellen Bryan MD Internal Medicine, PGY-3 [phone] 08/16/2022 12:26 PM [facility] STAFF PHYSICIAN NOTE OF PERSONAL INVOLVEMENT IN CARE IMPRESSION: Patient is a 61 year old male longstanding history of ankylosing spondylitis been experiencing worsening of shortness of breath and labile blood pressure PLAN: Explained to Mr. Maldonado and his , that there have been case reports of association of autonomic dysfunction with ankylosing spondylitis particularly the patient is experiencing neuropathy that may have contributed to labile blood pressure. As far as his shortness of breath diastolic dysfunction due to chronic inflammation cannot be excluded. He will be referred for right heart cath with e xercise to elicit exercise-induced pulmonary hypertension. I have reviewed the documentation obtained and documented by the Resident and I have personally performed a face to face assessment of the patient and have personally participated in the ballard components of the visit which includes medical decision making.. I have discussed the case and management ofthe patient's care. STAFF PHYSICIAN: Tricia Howard MD DATE OF SERVICE: August 16, 2022 documented in this encounterPar[facility]04-25-[facility]23 Miscellaneous Notes* Telephone Encounter - Geovanni Baker - 08/15/2022 12:46 PM EDT Images received from [facility] by mail. Images uploaded to [employer]. Patient has a future appointment on: 08/16/22. Date of last OV: N/A. Geovanni Baker August 15, 2022 12:46 PM documented in this encounterParma [facility]04-20-2023 NoteNYHC- II Continue GDMT- ASA, lipitor, toprol and aldactone. Diuretic therapy- on hold r/t orthostasis- currently euvolemic without exacerbation Monitor daily weights, I&O, fluid restriction 1.5-2L/day, renal function and electrolytesUnMer[facility]04-20-2023 NoteWill add pyridostigmine regime today- d/w pt to start with 60 mg tid, if no improvement of symptoms in 2-3 days may increase to 90 mg tid, again if no improvement in 2-3 days may then increase to 120 mg tid. Continue midodrine. IN light of HFrEF [facility] Cohn for further evaluation and managementUnMercy Health [facility]04-20-2023 NotePatient here for follow up tilt table test done at [facility]. Review of Systems Cardiovascular: Positive for chest pain, dyspnea on exertion and near-syncope. Musculoskeletal: Positive for arthritis, back pain and joint pain. Neurological: Positive for dizziness, light-headedness and loss of balance. All other systems reviewed and are negative.[facility] 08-10-2022 NoteUTP CARDIOLOGY PROGRESS NOTE HPI: Elena Felix is a 61 y.o. male here for 1 month f/U for orthostatic hypotension. Known medical h/o HTN, HPL, NICM- HFrEf. Patient here for follow up tilt table test done at [facility]. Midodrine was increased to 5 mg tid at last visit. Pt states symptoms are essentially unchanged. Denied chest pain, shortness of breath, orthopnea. Admits lightheadedness with standing too long and with position changes at times. Denied syncope or near syncope. States he is hydrating well- has increased up to 2 L/day. Review of Systems Cardiovascular: Positive for chest pain, dyspnea on exertion and near-syncope. Musculoskeletal: Positive for arthritis, back pain and joint pain. Neurological: Positive for dizziness, light-headedness and loss of balance. All other systems reviewed and are negative. Visit Vitals BP 109/77 (BP Location: Left arm, Patient Position: Sitting) Pulse 94 Ht 1.88 m (6' 2 ) Wt 135 kg (298 lb) SpO2 97% BMI 38.26 kg/m??? Smoking Status Former BSA 2.65 m??? Allergies Allergen Reactions Morphine Other Patient thinks that with previous surgery he had a mental psychotic reaction with the combination of Lyrica and Morphine. Other reaction(s): Intolerance Patient thinks that with previous surgery he had a mental psychotic reaction with the combination of Lyrica and Morphine. Tolerated hydromorphone during 11/2016 admission Lisinopril Unknown Losartan Medications: Current Outpatient Medications on File Prior to Visit Medication Sig Dispense Refill albuterol 90 mcg/actuation inhaler albuterol sulfate HFA 90 mcg/actuation aerosol inhaler INHALE 2 PUFFS BY MOUTH EVERY 4 HOURS NEEDED FOR SHORTNESS OF BREATH/WHEEZING aspirin 81 mg EC tablet aspirin 81 mg tablet,delayed release TAKE 1 TABLET BY MOUTH EVERY DAY atorvastatin (Lipitor) 40 mg tablet Take 1 tablet (40 mg) by mouth at bedtime. 90 tablet 3 DULoxetine (Cymbalta) [address] capsule Take 1 capsule by mouth in the morning and at bedtime. folic acid (Folvite) 1 mg tablet Take 1 tablet by mouth in the morning. gabapentin (Neurontin) 300 mg capsule Take 900 mg by mouth in the morning and at bedtime. leflunomide (Arava) 20 mg tablet leflunomide 20 mg tablet TAKE 1 TABLET BY MOUTH EVERY DAY methotrexate 2.5 mg tablet methotrexate sodium 2.5 mg tablet TAKE 5 TABLETS BY MOUTH EVERY WEEK metoprolol succinate XL (Toprol-XL) 100 mg 24 hr tablet Take 50 mg by mouth in the morning. midodrine (Proamatine) 10 mg tablet Take 1 tablet (10 mg) by mouth in the morning, at noon, and at bedtime. 90 tablet 3 omeprazole (PriLOSEC) [address] capsule Take 1 tablet by mouth in the morning. oxaprozin (Daypro) 600 mg tablet oxaprozin 600 mg tablet TAKE 1 TABLET BY MOUTH TWICE A DAY WITH FOOD spironolactone (Aldactone) 25 mg tablet Take 0.5 tablets (12.5 mg) by mouth in the morning. 45 tablet 3 Symbicort 160-4.5 mcg/actuation inhaler tamsulosin (Flomax) 0.4 mg 24 hr capsule Take 1 capsule by mouth in the morning and at bedtime. venlafaxine XR (Effexor-XR) 75 mg 24 hr capsule TAKE 1 CAPSULE BY MOUTH EVERY DAY WITH FOOD FOR 30 DAYS No current facility-administered medications on file prior to visit. Physical Exam: Constitutional: Appearance: Normal appearance. Without apparent distress HENT: Head: Normocephalic and atraumatic. Nose: Nose normal. Mouth/Throat: Mouth: Mucous membranes are moist. Eyes: Extraocular Movements: Extraocular movements intact. Conjunctiva/sclera: Conjunctivae normal. Neck: Vascular: No JVD. Cardiovascular: Rate and Rhythm: Normal rate and regular rhythm. Pulses: Dorsalis pedis pulses are 3 on the right side and 3on the left side. Posterior tibial pulses are 3 on the right side and 3 on the left side. Heart sounds: Normal heart sounds, S1 normal and S2 normal. Pulmonary: Effort: Pulmonary effort is normal. Breath sounds: Normal breath sounds. Abdominal: General: Bowel sounds are normal. Palpations: Abdomen is soft. Musculoskeletal: General: Normal range of motion. + Kyphosis Right lower leg: No edema. Left lower leg: No edema. Skin: General: Skin is warm and dry. Capillary Refill: Capillary refill takes less than 2 seconds. Neurological: General: No focal deficit present. Mental Status: alert and oriented to person, place, and time. Psychiatric: Mood and Affect: Mood normal. Behavior: Behavior normal. Thought Content: Thought content normal. Judgment: Judgment normal. Labs: 07/04/22 CBC stable K+ 4.1, BUN 20, CR 1.26- renal function normal Liver function normal Last lab values have been reviewed CV Testin08/04/22 Tilt table ECHO (07/04/2022) Cardiac cath 06/23/2021 ECHO (10/04/2021) Assessment/Plan: Postural orthostatic tachycardia syndrome (POTS) Will add pyridostigmine regime today- d/w pt to start with 60 mg tid, if no improvement of symptoms in 2-3 days may increase to 90 mg tid, ag (more content not included)...[facility]04-10-2023 History of Present illness Narrative* Izzy Duvall RN - 07/31/2022 2:30 PM EDT Instructed on objectives and procedure of a tilt study documented in this encounterBON XYverify Phone: 1(710) 739-776203-22-2023 NotePatient here for follow up echo and labs. Maite Ba CNP started him on midodrine last week after speaking with him in cardiac rehab. She advised him to go up to 5mg TID if the 2.5mg wasn't helping. Maite also cut metoprolol down to 50mg daily. Says he gets SOB and dizzy when standing up. Has left-sided chest pain, which he says may be arthritis. Review of Systems Cardiovascular: Positive for chest pain, dyspnea on exertion and near-syncope. Musculoskeletal: Positive for arthritis, back pain and joint pain. Neurological: Positive for dizziness, light-headedness and loss of balance. All other systems reviewed and are negative.[facility] 07-12-2022 NoteCardiology Follow Up Progress Note - [facility] HPI: Elena Felix is a 61 y.o. male with a past medical history including hypertension, hyperlipidemia, and nonischemic cardiomyopathy. He has not been feeling well. He has been having orthostatic hypotension noted while at cardiac rehab and he is very symptomatic with this with c/o feeling lightheaded, SOB, palpitations, near syncope. He has had multiple readings with his BP sitting is 100s/60s, standing BP 60s/40s, his HR will also increase from 100 sitting to 120 standing. Last week his Toprol was reduced to 50mg daily and he was started on midodrine 2.5mg TID and increase to 5mg TID which he has. He denies any significant change in his symptoms. Past Medical History: Diagnosis Date Deep vein thrombosis (CMS/HCC) Hyperlipidemia Hypertension Nonischemic congestive cardiomyopathy (CMS/HCC) Sleep apnea Tachycardia Cardiology ROS: GENERAL: Denies fever, chills, night sweats, weight loss. HEENT: Denies changes in vision, photophobia, changes in hearing, epistaxis, oral bleeding. CARDIOVASCULAR: Endorses shortness of breath.0 Denies chest pain, orthopnea/PND, lower extremity edema, palpitations, lightheadedness/dizziness. RESPIRATORY: Denies SOB, coughing, wheezing GI: Denies abdominal pain, nausea/vomiting, heartburn, melena/hematochezia. RENAL: Denies dysuria, hematuria, flank pain. MSK: Denies muscle weakness/pain, arthralgias/joint pain. NEUROLOGIC: Denies LOC, weakness, numbness, headaches. SKIN: Denies abnormal rashes or bleeding. PSYCH: Denies significant anxiety, depression, sleep disturbances. Medications Current Outpatient Medications on File Prior to Visit Medication Sig Dispense Refill albuterol 90 mcg/actuation inhaler albuterol sulfate HFA 90 mcg/actuation aerosol inhaler INHALE 2 PUFFS BY MOUTH EVERY 4 HOURS NEEDED FOR SHORTNESS OF BREATH/WHEEZING aspirin 81 mg EC tablet aspirin 81 mg tablet,delayed release TAKE 1 TABLET BY MOUTH EVERY DAY atorvastatin (Lipitor) 40 mg tablet Take 1 tablet (40 mg) by mouth at bedtime. 90 tablet 3 DULoxetine (Cymbalta) [address] capsule Take 1 capsule by mouth in the morning and at bedtime. folic acid (Folvite) 1 mg tablet Take 1 tablet by mouth in the morning. gabapentin (Neurontin) 300 mg capsule Take 900 mg by mouth in the morning and at bedtime. leflunomide (Arava) 20 mg tablet leflunomide 20 mg tablet TAKE 1 TABLET BY MOUTH EVERY DAY methotrexate 2.5 mg tablet methotrexate sodium 2.5 mg tablet TAKE 5 TABLETS BY MOUTH EVERY WEEK metoprolol succinate XL (Toprol-XL) 100 mg 24 hr tablet Take 50 mg by mouth in the morning. omeprazole (PriLOSEC) [address] capsule Take 1 tablet by mouth in the morning. oxaprozin (Daypro) 600 mg tablet oxaprozin 600 mg tablet TAKE 1 TABLET BY MOUTH TWICE A DAY WITH FOOD spironolactone (Aldactone) 25 mg tablet spironolactone 25 mg tablet TAKE 1 TABLET BY MOUTH EVERY DAY Symbicort 160-4.5 mcg/actuation inhaler tamsulosin (Flomax) 0.4 mg 24 hr capsule Take 1 capsule by mouth in the morning and at bedtime. venlafaxine XR (Effexor-XR) 75 mg 24 hr capsule TAKE 1 CAPSULE BY MOUTH EVERY DAY WITH FOOD FOR 30 DAYS [DISCONTINUED] midodrine (Proamatine) 2.5 mg tablet Take 1 tablet (2.5 mg) by mouth in the morning, at noon, and at bedtime. (Patient taking differently: Take 5 mg by mouth in the morning, at noon, and at bedtime.) 90 tablet 0 [DISCONTINUED] lisinopril 2.5 mg tablet Take 2.5 mg by mouth in the morning. No current facility-administered medications on file prior to visit. Allergies Morphine, Lisinopril, and Losartan Physical Exam VITAL SIGNS: BP 95/69 (BP Location: Left arm, Patient Position: Sitting) Pulse (!) 120 Comment: standing Ht 1.88 m (6' 2 ) Wt 132 kg (292 lb) SpO2 93% BMI 37.49 kg/m??? Constitutional: Well developed, Well nourished, No acute distress, Non-toxic appearance. HENT: Normocephalic, Atraumatic, Bilateral external ears have normal appearance, Bilateral TMs clear, Oropharynx moist, No oral or pharyngeal exudates, Nose appears normal, nares are patent. Eyes: PERRLA, EOMI, Conjunctiva normal, No discharge. Neck: Normal range of motion, No tenderness, Supple, No stridor. No cervical lymphadenopathy noted. Cardiovascular: Normal heart rate, Normal rhythm, No murmurs, No rubs, No gallops. Thorax & Lungs: Normal breath sounds, No respiratory distress, No wheezing, No chest tenderness to palpation. Abdomen: Bowel sounds normal, Soft, Nontender, No masses, No pulsatile masses. Skin: Warm, Dry, No erythema, No rash. Back: No tenderness, No CVA tenderness. Extremities: Intact distal pulses, No edema, No tenderness, No cyanosis, No clubbing. Musculoskeletal: Good range of motion in all major joints with 5/5 muscle strength in all muscle groups, No tenderness to palpation or major deformities noted. Neurologic: Alert & oriented x 3, Normal motor function in all major muscle g (more content not included)...[facility]03-22-2023 Miscellaneous Notes* Telephone Encounter - Geovanni Jonathan - 07/12/2022 1:54 PM EDT Contacted patient via Phone -no answer; VMM left requesting for cardiac records prior to appointment on 08/16/22. Geovanni Baker July 12, 2022 1:54 PM documented in this encounterParma [facility]03-15-2023 Milvia BRAGG from cardiac rehab reports patient has been having lightheadedness, dizziness and noted orthostasis with near syncope with position changes. They have documented a 40 point drop of blood pressure with position changes from sitting to standing and noted tachycardia with heart rates increasing up to 130s. We will decrease metoprolol to 50 mg daily from 100 mg and add midodrine 2.5 mg 3 times daily for orthostasis if symptoms do not improve in 1 to 2 days please increase to 5 mg 3 times daily. Patient follow-up next week as scheduled with Zachery Krishna NP Patient may benefit in the future from [facility] for tachycardia if it continues. Maria Teresa Ba NP Division of Cardiology, [facility]- [phone] Pager- [phone] Email- [email or web address]03-15-2023 Milvia BRAGG from cardiac rehab reports patient has been having lightheadedness, dizziness and noted orthostasis with near syncope with position changes. They have documented a 40 point drop of blood pressure with position changes from sitting to standing and noted tachycardia with heart rates increasing up to 130s. We will decrease metoprolol to 50 mg daily from 100 mg and add midodrine 2.5 mg 3 times daily for orthostasis if symptoms do not improve in 1 to 2 days please increase to 5 mg 3 times daily. Patient follow-up next week as scheduled with Zachery Krishna NP Patient may benefit in the future from [facility] for tachycardia if it continues. Maria Teresa Ba [employer] Division of Cardiology, [facility] [phone] Pager- [phone] Email- [email or web address]03-15-2023 Milvia BRAGG from cardiac rehab states that Mr Felix has been lightheaded/ dizzy with near syncope with position changes. RN states his SBP will drop by 40 points and heart rate will increase to 130's. Pt with PMH HFrEF, NICM, HPL, HTN- newly DX with Asthma. Will decrease toprol to 50 mg daily and will add midodrine 2.5 mg tid for hypotension and orthostasis. If symptoms do not improve within 1-2 days he may increase to 5 mg tid. F/U as scheduled for further evaluation. If he has continued tachycardia he may benefit from [facility] Maria Teresa Ba NP Division of Cardiology, [facility] [phone] Pager- [phone] Email- [email or web address]02-08-2023 NotePatient here for 6 mo follow up chronic systolic heart failure, nonischemic congestive cardiomyopathy, and hx of DVT. Says he's had a few episodes of hypotension since his last visit in October 2021. He did feel lightheaded during those times. Says he was recently diagnosed with asthma. C/o worsening SOB and fatigue. states when his BP is low it's usually mid day. He takes both spironolactone and metoprolol in the AM.[facility] 05-31-2022 NoteCardiology Follow Up Progress Note Chief Complaint: follow up HPI: Elena Felix is a 61 y.o. male with a past medical history including hypertension, hyperlipidemia, and nonischemic cardiomyopathy. He presents to cardiology clinic for routine follow-up. Overall, patient states that he has been doing relatively well. He denies any chest pain. He does endorse some shortness of breath. He was recently diagnosed with asthma, and has been started on inhalers. He denies any lower extreme edema, orthopnea, or paroxysmal nocturnal dyspnea. He does endorse some dizziness, which coincides with episodes of hypotension. This is not frequent, but it is bothersome to the patient when he experiences it. Cardiology ROS: GENERAL: Denies fever, chills, night sweats, weight loss. HEENT: Denies changes in vision, photophobia, changes in hearing, epistaxis, oral bleeding. CARDIOVASCULAR: Endorses shortness of breath.0 Denies chest pain, orthopnea/PND, lower extremity edema, palpitations, lightheadedness/dizziness. RESPIRATORY: Denies SOB, coughing, wheezing GI: Denies abdominal pain, nausea/vomiting, heartburn, melena/hematochezia. RENAL: Denies dysuria, hematuria, flank pain. MSK: Denies muscle weakness/pain, arthralgias/joint pain. NEUROLOGIC: Denies LOC, weakness, numbness, headaches. SKIN: Denies abnormal rashes or bleeding. PSYCH: Denies significant anxiety, depression, sleep disturbances. Medications Current Outpatient Medications on File Prior to Visit Medication Sig Dispense Refill albuterol 90 mcg/actuation inhaler albuterol sulfate HFA 90 mcg/actuation aerosol inhaler INHALE 2 PUFFS BY MOUTH EVERY 4 HOURS NEEDED FOR SHORTNESS OF BREATH/WHEEZING aspirin 81 mg EC tablet aspirin 81 mg tablet,delayed release TAKE 1 TABLET BY MOUTH EVERY DAY atorvastatin (Lipitor) 40 mg tablet Take 1 tablet by mouth at bedtime. DULoxetine (Cymbalta) [address] capsule Take 1 capsule by mouth in the morning and at bedtime. folic acid (Folvite) 1 mg tablet Take 1 tablet by mouth in the morning. gabapentin (Neurontin) 300 mg capsule Take 900 mg by mouth in the morning and at bedtime. leflunomide (Arava) 20 mg tablet leflunomide 20 mg tablet TAKE 1 TABLET BY MOUTH EVERY DAY methotrexate 2.5 mg tablet methotrexate sodium 2.5 mg tablet TAKE 5 TABLETS BY MOUTH EVERY WEEK metoprolol succinate XL (Toprol-XL) 100 mg 24 hr tablet metoprolol succinate ER 100 mg tablet,extended release 24 hr TAKE 1 TABLET BY MOUTH EVERY DAY omeprazole (PriLOSEC) [address] capsule Take 1 tablet by mouth in the morning. oxaprozin (Daypro) 600 mg tablet oxaprozin 600 mg tablet TAKE 1 TABLET BY MOUTH TWICE A DAY WITH FOOD spironolactone (Aldactone) 25 mg tablet spironolactone 25 mg tablet TAKE 1 TABLET BY MOUTH EVERY DAY Symbicort 160-4.5 mcg/actuation inhaler tamsulosin (Flomax) 0.4 mg 24 hr capsule Take 1 capsule by mouth in the morning and at bedtime. venlafaxine XR (Effexor-XR) 75 mg 24 hr capsule TAKE 1 CAPSULE BY MOUTH EVERY DAY WITH FOOD FOR 30 DAYS [DISCONTINUED] apixaban (Eliquis) 5 mg tablet every 12 (twelve) hours. [DISCONTINUED] furosemide (Lasix) 20 mg tablet furosemide 20 mg tablet TAKE 1 TABLET BY MOUTH EVERY DAY as needed for weight gain, SOB, worsening LE swelling. [DISCONTINUED] HYDROcodone-acetaminophen ([place]) 5-325 mg tablet hydrocodone 5 mg-acetaminophen 325 mg tablet TAKE 1 TABLET BY MOUTH EVERY 4 TO 6 HOURS NEEDED No current facility-administered medications on file prior to visit. Allergies Morphine, Lisinopril, and Losartan Physical Exam VITAL SIGNS: BP 113/79 (BP Location: Right arm, Patient Position: Sitting) Pulse 81 Ht 1.88 m (6' 2 ) Wt 134 kg (295 lb) SpO2 97% BMI 37.88 kg/m??? Constitutional: Well developed, Well nourished, No acute distress, Non-toxic appearance. HENT: Normocephalic, Atraumatic, Bilateral external ears have normal appearance, Bilateral TMs clear, Oropharynx moist, No oral or pharyngeal exudates, Nose appears normal, nares are patent. Eyes: PERRLA, EOMI, Conjunctiva normal, No discharge. Neck: Normal range of motion, No tenderness, Supple, No stridor. No cervical lymphadenopathy noted. Cardiovascular: Normal heart rate, Normal rhythm, No murmurs, No rubs, No gallops. Thorax & Lungs: Normal breath sounds, No respiratory distress, No wheezing, No chest tenderness to palpation. Abdomen: Bowel sounds normal, Soft, Nontender, No masses, No pulsatile masses. Skin: Warm, Dry, No erythema, No rash. Back: No tenderness, No CVA tenderness. Extremities: Intact distal pulses, No edema, No tenderness, No cyanosis, No clubbing. Musculoskeletal: Good range of motion in all major joints with 5/5 muscle strength in all muscle groups, No tenderness to palpation or major deformities noted. Neurologic: Alert & oriented x 3, Normal motor function in all major muscle groups, Normal sensory function to all major dermatomes, No focal deficits noted. (more content not included)...[facility]01-16-2023 Evaluation note* Encounter Date Diagnosis Assessment Notes Treatment Notes Treatment Clinical Notes Apr, Current moderate episode of major depressive disorder without prior episode (ICD-10 - F32.1) Notes increased symptoms - winter months and new medical issues. Reviewed present meds. On cymbalta. Add effexor and recheck in 1 month Apr, Moderate persistent asthma, unspecified whether complicated (ICD-10 - J45.40) New problem. Reviewed notes from Dr. Capps and discussed medications with Elena. Apr, Arthritis of spine (ICD-10 - M46.90) Chronic issue. Reviewed notes from Dr. Hodges's office and his medications. [facility] Other 01-09-2023 Hospital Discharge instructions Patient Education 05/01/2022 10:50:37 Benign Prostatic Hyperplasia Benign Prostatic Hyperplasia Benign prostatic hyperplasia (BPH) is an enlarged prostate gland that is caused by the normal agingprocess and not by cancer. The prostate is a walnut-sized gland that is involved in the production of semen. It is located in front of the rectum and below the bladder. The bladder stores urine and the urethra is the tube that carries the urine out of the body. The prostate may get bigger as a man gets older. An enlarged prostate can press on the urethra. This can make it harder to pass urine. The build-up of urine in the bladder can cause infection. Back pressure and infection may progress to bladder damage and kidney (renal) failure. What are the causes? This condition is part of a normal aging process. However, not all men develop problems from this condition. If the prostate enlarges away from the urethra, urine flow will not be blocked. If it enlarges toward the urethra and compresses it, there will be problems passing urine. What increases the risk? This condition is more likely to develop in men over the age of 50 years. What are the signs or symptoms? Symptoms of this condition include: Getting up often during the night to urinate. Needing to urinate frequently during the day. Difficulty starting urine flow. Decrease in size and strength of your urine stream. Leaking (dribbling) after urinating. Inability to pass urine. This needs immediate treatment. Inability to completely empty your bladder. Pain when you pass urine. This is more common if there is also an infection. Urinary tract infection (UTI). How is this diagnosed? This condition is diagnosed based on your medical history, a physical exam, and your symptoms. Tests will also be done, such as: A post-void bladder scan. This measures any amount of urine that may remain in your bladder after you finish urinating. A digital rectal exam. In a rectal exam, your health care provider checks your prostate by putting a lubricated, gloved finger into your rectum to feel the back of your prostate gland. This exam detects the size of your gland and any abnormal lumps or growths. An exam of your urine (urinalysis). A prostate specific antigen (PSA) screening. This is a blood test used to screen for prostate cancer. An ultrasound. This test uses sound waves to electronically produce a picture of your prostate gland. Your health care provider may refer you to a specialist in kidney and prostate diseases (urologist). How is this treated? Once symptoms begin, your health care provider will monitor your condition (active surveillance or watchful waiting). Treatment for this condition will depend on the severity of your condition. Treatment may include: Observation and yearly exams. This may be the only treatment needed if your condition and symptoms are mild. Medicines to relieve your symptoms, including: ?Medicines to shrink the prostate. ?Medicines to relax the muscle of the prostate. Surgery in severe cases. Surgery may include: ?Prostatectomy. In this procedure, the prostate tissue is removed completely through an open incision or with a laparoscope or robotics. ?Transurethral resection of the prostate (TURP). In this procedure, a tool is inserted through the opening at the tip of the penis (urethra). It is used to cut away tissue of the inner core of the prostate. The pieces are removed through the same opening of the penis. This removes the blockage. ?Transurethral incision (TUIP). In this procedure, small cuts are made in the prostate. This lessens the prostate's pressure on the urethra. ?Transurethral microwave thermotherapy (TUMT). This procedure uses microwaves to create heat. The heat destroys and removes a small amount of prostate tissue. ?Transurethral needle ablation (TUNA). This procedure uses radio frequencies to destroy and remove a small amount of prostate tissue. ?Interstitial laser coagulation (ILC). This procedure uses a laser to destroy and remove a small amount of prostate tissue. ?Transurethral electrovaporization (TUVP). This procedure uses electrodes to destroy and remove a small amount of prostate tissue. ?Prostatic urethral lift. This procedure inserts an implant to push the lobes of the prostate away from the urethra. Follow these instructions at home: Take [id number] and prescription medicines only as told by your health care provider. Monitor your symptoms for any changes. Contact your health care provider with any changes. Avoid drinking large amounts of liquid before going to bed or out in public. Avoid or reduce how much caffeine or alcohol you drink. Give yourself time when you urinate. Keep all follow-up visits as told by your health care provider. This is important. Contact a health care provider if: You have unexplained back pain. Your symptoms do not get better with treatment. You develop side effects from the medicine you are taking. Your urine becomes very dark or has a bad smell. Your lower abdomen becomes distended and you have trouble passing your urine. Get help right away if: You have a fever or chills. You suddenly cannot urinate. You feel lightheaded, or very dizzy, or you faint. There are large amounts of blood or clots in the urine. Your urinary problems become hard to manage. You develop moderate to severe low back or flank pain. The flank is the side of your body between the ribs and the hip. These symptoms may represent a serious problem that is an emergency. Do not wait to see if the symptoms will go away. Get medical help right away. Call your local emergency services (911 in the [place] Do not drive yourself to the hospital. Summary Benign prostatic hyperplasia (BPH) is an enlarged prostate that is caused by the normal aging process and not by cancer. An enlarged prostate can press on the urethra. This can make it hard to pass urine. This condition is part of a normal aging process and is more likely to develop in men over the age of 50 years. Get help right away if you suddenly cannot urinate. This information is not intended to replace advice given to you by your health care provider. Make sure you discuss any questions you have with your health care provider. Document Released: 04/09/2006 Document Revised: 03/04/2019 Document Reviewed: 05/14/2017 [employer] Patient Education 2020 Identify. Follow Up Care 09/05/2021 12:02:11 With:ARABELLA MUNIZ, Jerrod Moya, CLIFL Address: [facility] [address], [place] [address] [phone] When:Within 1 Year(s) [facility] Sandip 09-28-2022 History of Present illness Narrative* Merly Marti MD - 01/18/2022 10:38 AM EDT PATIENT NAME: Elena Felix CLINIC NO.: [id number] ATTENDING PHYSICIAN: Merly Marti MD DATE OF SERVICE: January 18, 2022 Some of the elements of this note have been copied from my previous progress note dated 12/28/2021. All the information has been reviewed carefully. Dear Dr. Silvana Lundberg, here is an update on a follow up visit on male Elena Felix at the clinic 01/18/2022 Diagnosis: DVT Treatment History: HPI: Elena Felix is a 61 year old year old male here for follow up. No new complaints and continues to be off the Eliquis PAST MEDICAL HISTORY Diagnosis Date Ankylosing spondylitis ([facility]) Dr Hodges Ankylosing spondylitis ([facility]) Arthritis Back pain Cardiomyopathy ([facility]) Nonischemic Congestive Cerebrovascular small vessel disease 08/24/2016 On ASA DVT (deep venous thrombosis) ([facility]) Esophageal reflux Former smoker Kidney stones Major depressive disorder with single episode, in remission ([facility]) 08/24/2016 Morbid obesity with BMI of 40.0-44.9, adult ([facility]) Neuropathy Obstructive sleep apnea syndrome, severe On auto-CPAP - sleep study done on 07/10/16 Pneumonia Social History Tobacco Use Smoking status: Former Packs/day: 2.00 Years: 21.00 Pack years: 42.00 Types: Cigarettes Passive exposure: Past Smokeless tobacco: Never Tobacco comments: quit 1998 Substance Use Topics Alcohol use: No Drug use: No FAMILY HISTORY Problem Relation Age of Onset Breast Cancer Mother Stroke Mother other (Migraine) Mother may have had migraine HAs Emphysema Father Stroke Father Arthritis Father other (Negative) Father multiple sclerosis Past medical, social and family history reviewed without any changes. REVIEW OF SYSTEMS GENERAL: No weight loss, malaise or fevers. No night sweats. HEENT: Negative for headaches, No changes in hearing or vision, no nose bleeds or other nasal problems. RESPIRATORY: Negative for cough, wheezing and shortness of breath CARDIOVASCULAR: Negative for chest pain, leg swelling and palpitations GI: Negative for abdominal discomfort, blood in stools or black stools and change in bowel habits : Negative for dysuria, frequency and incontinence MUSCULOSKELETAL: Negative for joint pain or swelling, back pain, and muscle pain. SKIN: Negative for lesions, rash, and itching. HEMATOLOGY/LYMPHOLOGY Negative for prolonged bleeding, bruising easily, and swollen nodes. NEURO: Negative for numbness or tingling of hands/feet. No weakness. PHYSICAL EXAMINATION: BP 122/71 Pulse 92 Temp (Src) 97.3 (Temporal) Resp 18 Ht 6' 3 (1.91m) Wt 290 lb 12.8 oz (131.9kg) SpO2 97% BMI 36.35 kg/(m^2). Wt 135.5 kg (298 lb 12.8 oz) BMI 37.35 kg/m2 Last 3 Encounter Wt Readings: Date: Wt: 12/28/2021 135.5 kg (298 lb 12.8 oz) 09/21/2021 132.6 kg (292 lb 6.4 oz) 04/02/2019 141.4 kg (311 lb 12.8 oz) General appearance:ECOG PERFORMANCE STATUS: 0- Fully active, able to carry on all pre-disease performance w/o restriction. Patient in NAD. Skin: Skin color, texture, turgor normal. No rashes or lesions. Eyes: Anicteric sclera. Pupils are equally round and reactive to light. Extraocular movements are intact. Lymph Nodes: No cervical, supraclavicular, axillary or inguinal adenopathy. Oropharynx: Lips, mucosa, and tongue normal. Back: No pain to percussion. Negative SLR test Lungs clear to auscultation, No wheezing or rhonchi Heart: RRR without murmur, gallop, or rubs. Abdomen soft, non-tender. No masses, organomegaly Extremities: No deformities. No edema Neuro: Gait and speech normal. Reflexes normal and symmetric. Muscular strength intact. Sensation grossly intact. Rectal: Deferred : Deferred LABS: Glucose (mg/dL) Date Value 12/28/2021 109 12/15/2016 101 Potassium (mmol/L) Date Value 12/28/2021 3.9 12/15/2016 4.1 Sodium (mmol/L) Date Value 12/28/2021 143 12/15/2016 140 Chloride (mmol/L) Date Value 12/28/2021 110 12/15/2016 96 CO2 (mmol/L) Date Value 12/28/2021 27 12/15/2016 31 Creatinine (mg/dL) Date Value 12/28/2021 1.05 12/15/2016 0.87 BUN (mg/dL) Date Value 12/28/2021 17 12/15/2016 10 Anion Gap (mmol/L) Date Value 12/28/2021 6 12/15/2016 13 Calcium (mg/dL) Date Value 12/15/2016 9.3 Calcium, Total (mg/dL) Date Value 12/28/2021 9.2 Protein, Total (g/dL) Date Value 12/28/2021 6.0 12/15/2016 7.3 Albumin (g/dL) Date Value 12/28/2021 3.5 12/15/2016 2.9 Bilirubin, Total (mg/dL) Date Value 12/28/2021 0.4 12/15/2016 0.3 Alkaline Phosphatase (U/L) Date Value 12/28/2021 69 12/15/2016 53 AST (U/L) Date Value 12/28/2021 27 12/15/2016 12 ALT (U/L) Date Value 12/28/2021 23 12/15/2016 9 WBC Date Value Ref Range Status 12/28/2021 5.45 3.70 - 11.00 k/uL Final RBC Date Value Ref Range Status 12/28/2021 3.48 (L) 4.20 - 6.00 m/uL Final Hemoglobin Date Value Ref Range Status 12/28/2021 10.9 (L) 13.0 - 17.0 g/dL Final Hematocrit Date Value Ref Range Status 12/28/2021 34.6 (L) 39.0 - 51.0 % Final MCV Date Value Ref Range Status 12/28/2021 99.4 80.0 - 100.0 fL Final MCH Date Value Ref Range Status 12/28/2021 31.3 26.0 - 34.0 pg Final MCHC Date Value Ref Range Status 12/28/2021 31.5 30.5 - 36.0 g/dL Final RDW-CV Date Value Ref Range Status 12/28/2021 18.1 (H) 11.5 - 15.0 % Final Platelet Count Date Value Ref Range Status 12/28/2021 230 150 - 400 k/uL Final MPV Date Value Ref Range Status 12/28/2021 10.0 9.0 - 12.7 fL Final Abs Neut Date Value Ref Range Status 12/28/2021 3.45 1.45 - 7.50 k/uL Final Lymph% Date Value Ref Range Status 12/28/2021 17.4 % Final Abs Lymph Date Value Ref Range Status 12/28/2021 0.95 (L) 1.00 - 4.00 k/uL Final Apache% Date Value Ref Range Status 12/28/2021 12.7 % Final Abs Apache Date Value Ref Range Status 12/28/2021 0.69 <0.87 k/uL Final Eosin% Date Value Ref Range Status 12/28/2021 5.5 % Final Abs Eosin Date Value Ref Range Status 12/28/2021 0.30 <0.46 k/uL Final Baso% Date Value Ref Range Status 12/28/2021 0.7 % Final Abs Baso Date Value Ref Range Status 12/28/2021 0.04 <0.11 k/uL Final PATH: Imaging: Assessment and Plan: Elena Felix is a 61 year old year old male here for follow up. Provoked DVT in 2016 and a subsequent short segment distal DVT in 08/2021 which was unprovoked. He was not 100% committed to terminal make up operator therapy. I reviewed his hypercoag labs and all within normal limits and at this time will stay off anticoagulation. We discussed the clinical signs and symptoms of thrombosis and he understands that he can get recurrent disease. He will follow up with Dr. Lundberg and will see us on an as needed basis Thank you for the kind referral. If there are any questions and or concerns please do not hesitate to contact me at [phone]. Merly Marti MD Hematology/Medical Oncology [facility] I spent a total of 15 minutes on the date of the service which included preparing to see the patient, [id number] patient care, completing clinical documentation, obtaining and/or reviewing separately obtained history, ordering medications, tests, or procedures, and communicating with other HCPs (not separately reported). Medical Decision Making: Medical Decision Making Level: 1 - N/A CC: Silvana Lundberg MD [facility] Miscellaneous Notes* Telephone Encounter - Eli Carranza RN - 01/02/2022 3:24 PM EDT Voicemail left re: WILLI message. Pt is encouraged to call back for any additional questions, needs or concerns. Eli Carranza RN * Telephone Encounter - Eli Carranza RN - 01/02/2022 3:24 PM EDT ----- Message from Meaghan De La Rosa RN sent at 01/02/2022 11:22 AM EDT ----- ----- Message ----- From: Merly Marti MD Sent: 12/30/2021 5:36 PM EDT To: Meaghan De La Rosa RN Let him know that his work up is all negative and that if he wishes he can stop his anticoagulationand I am happy to discuss further in our next appointment as well, documented in [facility] encounterPar[facility]22 Miscellaneous Notes* Telephone Encounter - Meaghan De La Rosa RN - 01/02/2022 2:25 PM EDT Pt notified of results and that he can stop his anticoagulation therapy. Verbalized understanding and will follow up as scheduled. Meaghan De La Rosa RN * Telephone Encounter - Meaghan De La Rosa RN - 01/02/2022 2:23 PM EDT ----- Message from Merly Marti MD sent at 12/30/2021 5:36 PM EDT ----- Let him know that his work up is all negative and that if he wishes he can stop his anticoagulationand I am happy to discuss further in our next appointment as well, documented in [facility] encounter[facility]22 History of Present illness Narrative* Merly Marti MD - 12/28/2021 2:43 PM EDT PATIENT NAME: Elena Felix CLINIC NO.: [id number] ATTENDING PHYSICIAN: Merly Marti MD DATE OF SERVICE: December 28, [address] Merly Marti [address] [place] [address] here is an update on a follow up visit on male Elena Felix at the clinic 12/28/2021 Diagnosis: DVT Treatment History: HPI: Elena Felix is a 61 year old year old male here for follow up. Feels well and was tired and denies any fevers and or chills. He has been off Eliquis for about 3 weeks and overall feels well. PAST MEDICAL HISTORY Diagnosis Date Ankylosing spondylitis ([facility]) Dr Hodges Ankylosing spondylitis ([facility]) Arthritis Back pain Cardiomyopathy ([facility]) Nonischemic Congestive Cerebrovascular small vessel disease 08/24/2016 On ASA DVT (deep venous thrombosis) ([facility]) Esophageal reflux Former smoker Kidney stones Major depressive disorder with single episode, in remission ([facility]) 08/24/2016 Morbid obesity with BMI of 40.0-44.9, adult ([facility]) Neuropathy Obstructive sleep apnea syndrome, severe On auto-CPAP - sleep study done on 07/10/16 Pneumonia Social History Tobacco Use Smoking status: Former Packs/day: 2.00 Years: 21.00 Pack years: 42.00 Types: Cigarettes Passive exposure: Past Smokeless tobacco: Never Tobacco comments: quit 1998 Substance Use Topics Alcohol use: No Drug use: No FAMILY HISTORY Problem Relation Age of Onset Breast Cancer Mother Stroke Mother other (Migraine) Mother may have had migraine HAs Emphysema Father Stroke Father Arthritis Father other (Negative) Father multiple sclerosis Past medical, social and family history reviewed without any changes. REVIEW OF SYSTEMS GENERAL: No weight loss, malaise or fevers. No night sweats. HEENT: Negative for headaches, No changes in hearing or vision, no nose bleeds or other nasal problems. RESPIRATORY: Negative for cough, wheezing and shortness of breath CARDIOVASCULAR: Negative for chest pain, leg swelling and palpitations GI: Negative for abdominal discomfort, blood in stools or black stools and change in bowel habits : Negative for dysuria, frequency and incontinence MUSCULOSKELETAL: Negative for joint pain or swelling, back pain, and muscle pain. SKIN: Negative for lesions, rash, and itching. HEMATOLOGY/LYMPHOLOGY Negative for prolonged bleeding, bruising easily, and swollen nodes. NEURO: Negative for numbness or tingling of hands/feet. No weakness. PHYSICAL EXAMINATION: BP 127/66 Pulse 72 Temp (Src) 97.2 (Temporal) Resp 18 Ht 6' 3 (1.91m) Wt 298 lb 12.8 oz (135.5kg) SpO2 96% BMI 37.35 kg/(m^2). Wt 135.5 kg (298 lb 12.8 oz) BMI 37.35 kg/m2 Last 3 Encounter Wt Readings: Date: Wt: 12/28/2021 135.5 kg (298 lb 12.8 oz) 09/21/2021 132.6 kg (292 lb 6.4 oz) 04/02/2019 141.4 kg (311 lb 12.8 oz) General appearance:ECOG PERFORMANCE STATUS: 0- Fully active, able to carry on all pre-disease performance w/o restriction. Patient in NAD. Skin: Skin color, texture, turgor normal. No rashes or lesions. Eyes: Anicteric sclera. Pupils are equally round and reactive to light. Extraocular movements are intact. Lymph Nodes: No cervical, supraclavicular, axillary or inguinal adenopathy. Oropharynx: Lips, mucosa, and tongue normal. Back: No pain to percussion. Negative SLR test Lungs clear to auscultation, No wheezing or rhonchi Heart: RRR without murmur, gallop, or rubs. Abdomen soft, non-tender. No masses, organomegaly Extremities: No deformities. No edema Neuro: Gait and speech normal. Reflexes normal and symmetric. Muscular strength intact. Sensation grossly intact. Rectal: Deferred : Deferred LABS: Glucose (mg/dL) Date Value 12/15/2016 101 Potassium (mmol/L) Date Value 12/15/2016 4.1 Sodium (mmol/L) Date Value 12/15/2016 140 Chloride (mmol/L) Date Value 12/15/2016 96 CO2 (mmol/L) Date Value 12/15/2016 31 Creatinine (mg/dL) Date Value 12/15/2016 0.87 BUN (mg/dL) Date Value 12/15/2016 10 Anion Gap (mmol/L) Date Value 12/15/2016 13 Calcium (mg/dL) Date Value 12/15/2016 9.3 Protein, Total (g/dL) Date Value 12/15/2016 7.3 Albumin (g/dL) Date Value 12/15/2016 2.9 Bilirubin, Total (mg/dL) Date Value 12/15/2016 0.3 Alkaline Phosphatase (U/L) Date Value 12/15/2016 53 AST (U/L) Date Value 12/15/2016 12 ALT (U/L) Date Value 12/15/2016 9 WBC Date Value Ref Range Status 12/15/2016 9.32 3.70 - 11.00 k/uL Final RBC Date Value Ref Range Status 12/15/2016 3.41 (L) 4.20 - 6.00 m/uL Final Hemoglobin Date Value Ref Range Status 12/15/2016 8.4 (L) 13.0 - 17.0 g/dL Final Hematocrit Date Value Ref Range Status 12/15/2016 28.4 (L) 39.0 - 51.0 % Final MCV Date Value Ref Range Status 12/15/2016 83.3 80.0 - 100.0 fL Final MCH Date Value Ref Range Status 12/15/2016 24.6 (L) 26.0 - 34.0 pG Final MCHC Date Value Ref Range Status 12/15/2016 29.6 (L) 30.5 - 36.0 g/dL Final RDW-CV Date Value Ref Range Status 12/15/2016 18.6 (H) 11.5 - 15.0 % Final Platelet Count Date Value Ref Range Status 12/15/2016 682 (H) 150 - 400 k/uL Final MPV Date Value Ref Range Status 12/15/2016 8.7 (L) 9.0 - 12.7 fL Final Abs Neut (ANC) Date Value Ref Range Status 12/15/2016 5.78 1.45 - 7.50 k/uL Final Lymph% Date Value Ref Range Status 12/15/2016 21.2 % Final Abs Lymph Date Value Ref Range Status 12/15/2016 1.98 1.00 - 4.00 k/uL Final Apache% Date Value Ref Range Status 12/15/2016 10.6 % Final Abs Apache Date Value Ref Range Status 12/15/2016 0.99 (H) 0.00 - 0.86 k/uL Final Abs Eosin Date Value Ref Range Status 12/15/2016 0.49 (H) 0.00 - 0.45 k/uL Final Baso% Date Value Ref Range Status 12/15/2016 0.0 % Final Abs Baso Date Value Ref Range Status 12/15/2016 0.00 0.00 - 0.10 k/uL Final PATH: Imaging: Assessment and Plan: Elena Felix is a 61 year old year old male here for follow up. Provoked DVT in 2016 and a subsequent short segment distal DVT in 08/2021 which ws unprovoked. He was not 100% committed to detention theraoy and is undergoing evaluation with hyper coag panel to decide if Ok to stop therapy and or he needs to resume, Will follow up on the blood work and discuss with him Thank you for the kind referral. If there are any questions and or concerns please do not hesitate to contact me at [phone]. Merly Marti MD Hematology/Medical Oncology [facility] spent a total of 20 minutes on the date of the service which included preparing to see the patient, [id number] patient care, completing clinical documentation, obtaining and/or reviewing separately obtained history, ordering medications, tests, or procedures, and communicating with other HCPs (not separately reported). Medical Decision Making: Medical Decision Making Level: 1 - N/A CC: Silvana Lundberg MD documented in this encounterPar[facility] NoteEXAMINATION: XR CHEST 2 V HISTORY: COVID-19 COMPARISON: TECHNIQUE: PA and lateral FINDINGS: LUNGS: No significant pulmonary parenchymal abnormalities. VASCULATURE: No increased pulmonary vasculature. PLEURA: No pneumothorax, effusion, or pleural thickening. CARDIAC: No cardiomegaly or cardiac silhouette abnormality. MEDIASTINUM: No visible mass or adenopathy. BONES: Posterior thoracic spinal fusion with dextrocurvature OTHER: Negative. IMPRESSION: No acute disease. Electronically authenticated by: MAJOR REA Date: 2021-11-29 19:09[facility]06-01-2022 Nurse Note* Annmarie Ralph MA - 09/21/2021 3:46 PM EDT Patient was in ER yesterday due to Bronchitis. Annmarie Ralph MA documented in this encounterPar[facility]06-[facility]-2022 History of Present illness Narrative* Merly Marti MD - 09/21/2021 3:40 PM EDT Images from the original note were not included. PATIENT NAME: Elena Felix [facility] NO.: [id number] ATTENDING PHYSICIAN: Merly Marti MD DATE OF SERVICE: September 21, [address] Silvana Lundberg thank you for referring Mr. Elena Felix for an opinion regarding DVT. CHIEF COMPLAINT: DVT HPI: Elena Felix is a 61 year old year old male with past medical history significant for congestive heart failure followed at [facility], benign prostatic hypertrophy as well as ankylosing spondylitis who had undergone a [id number] PSF which was complicated by C. difficile and gram-negative wound infection, multiple debridements and a prolonged hospital course in September through November of 2016. During that hospital stay the patient developed acute proximal DVT in the common femoral vein, femoral vein and popliteal vein as well as acute proximal DVT in the common femoral, femoral vein and popliteal vein on the left side. Patient was started on anticoagulation howeverdue to multiple planned surgeries because of the surgical complications from October 20, 2016 an IVC filter was placed. Patient was subsequently discharged and subsequently transition to Rivoroxaban. InAugu2017 patient's IVC filter was removed and since this event was felt to be provoked but extensive proximal clotting he was eventually taken off his anticoagulation after approximately 1 year oftherapy. During a routine follow-up by his box nailer because of some concerns for swelling specially in his left leg patient underwent a left leg Doppler study on September 14, 2021 which showed a small deep vein thrombosis within the left lower extremity short segment of thrombosed posterior tibial vein and short thrombosed segment within the small saphenous vein. Patient had denied any recent hospitalization. Denies any testosterone use. He had some shortness of breath and had a CT angiogram done on September 20, 2021 which was negative for pulmonary emboli. Patient was started on Eliquis which has helped with the swelling. Patient also denies any recent surgical procedures or trauma. Prior to his provoked DVT in September 2016 patient denies any history of previous venous thromboembolism. Denies any family history of venous thromboembolism. Both mother and father suffered from CVAs. 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 Current Outpatient Medications Medication Sig furosemide (LASIX) 20 mg tablet Take 20 mg by mouth once daily. spironolactone (ALDACTONE) 25 mg tablet Take 25 mg by mouth once daily. ASPIRIN ORAL Take 81 mg by mouth once daily. oxaprozin (DAYPRO) 600 mg tablet Take 1,200 mg by mouth once daily. tamsulosin (FLOMAX) 0.4 mg Take 0.4 mg by mouth once daily. carvedilol (COREG) 6.25 mg tablet Take 6.25 mg by mouth twice daily with meals. atorvastatin (LIPITOR) 40 mg tablet Take 40 mg by mouth once daily. meloxicam (MOBIC) 15 mg tablet TAKE 1/2 TABLET BY MOUTH EVERY DAY (Patient not taking: TAKE 1/2 TABLET BY MOUTH EVERY DAY) gabapentin (NEURONTIN) 300 mg capsule Take 3 capsules by mouth three times daily for 30 days. leflunomide (ARAVA) 20 mg tablet Take 20 mg by mouth once daily. methotrexate 2.5 mg tablet Take 12.5 mg by mouth once each week. gabapentin (NEURONTIN) 600 mg tablet Take 1 tablet by mouth three times daily for 30 days. (Patientnot taking: Reported on 09/16/2021) FOLIC ACID/MULTIVIT-MIN/LUTEIN (CENTRUM SILVER ORAL) Take by mouth. Take one(1) tablet daily. (Patient not taking: Reported on 09/16/2021 ) oxyCODONE-acetaminophen (PERCOCET) 5-325 mg tablet Take 1 tablet by mouth every 8 hours as needed. (Patient not taking: Reported on 09/16/2021) metoprolol succinate ER (TOPROL XL) 25 mg 24 hr tablet Take 1 tablet by mouth once daily. tiZANidine (ZANAFLEX) 4 mg tablet Take 2 tablets by mouth three times daily as needed. folic acid 1 mg tablet Take 1 mg by mouth once daily. amitriptyline (ELAVIL) 50 mg tablet Take 50 mg by mouth daily at bedtime. (Patient not taking: Reported on 09/16/2021 ) omeprazole (PRILOSEC) 20 mg capsule Take 20 mg by mouth once daily. DULoxetine (CYMBALTA) 60 mg capsule Take 60 mg by mouth twice daily. (Patient not taking: Reported on 09/16/2021 ) No current facility-administered medications for this visit. ALLERGIES Allergen Reactions Morphine Intolerance Patient thinks that with previous surgery he had a mental psychotic reaction with the combination of Lyrica and Morphine. Lisinopril Unknown PAST MEDICAL HISTORY Diagnosis Date Ankylosing spondylitis ([facility]) Dr Hodges Ankylosing spondylitis ([facility]) Arthritis Back pain Cardiomyopathy ([facility]) Nonischemic Congestive Cerebrovascular small vessel disease 08/24/2016 On ASA DVT (deep venous thrombosis) ([facility]) Esophageal reflux Former smoker Kidney stones Major depressive disorder with single episode, in remission ([facility]) 08/24/2016 Morbid obesity with BMI of 40.0-44.9, adult ([facility]) Neuropathy Obstructive sleep apnea syndrome, severe On auto-CPAP - sleep study done on 07/10/16 Pneumonia PAST SURGICAL HISTORY Procedure Laterality Date BACK SURGERY HX 2013 BACK SURGERY HX 2015 MIDLINE INSERTION/CONSULT 09/05/2016 NOSE SURGERY HX sinus surg Dr Rojo PAST SURGICAL HISTORY OF 1986 R hand surgery PAST SURGICAL HISTORY OF 2001 R finger surgery PICC LINE INSERT/CONSULT 09/16/2016 TOTAL HIP JOINT REPLACEMENT Right FAMILY HISTORY Problem Relation Age of Onset Breast Cancer Mother Stroke Mother other (Migraine) Mother may have had migraine HAs Emphysema Father Stroke Father Arthritis Father other (Negative) Father multiple sclerosis Social History Tobacco Use Smoking status: Former Smoker Packs/day: 2.00 Years: 21.00 Pack years: 42.00 Types: Cigarettes Smokeless tobacco: Never Used Tobacco comment: quit 1997 Substance Use Topics Alcohol use: No Drug use: No REVIEW OF SYSTEMS GENERAL: No weight loss, malaise or fevers. No night sweats. HEENT: Negative for headaches, No changes in hearing or vision, no nose bleeds or other nasal problems. RESPIRATORY: Negative for cough, wheezing and shortness of breath CARDIOVASCULAR: Negative for chest pain, leg swelling and palpitations GI: Negative for abdominal discomfort, blood in stools or black stools and change in bowel habits : Negative for dysuria, frequency and incontinence MUSCULOSKELETAL: Negative for joint pain or swelling, back pain, and muscle pain. SKIN: Negative for lesions, rash, and itching. HEMATOLOGY/LYMPHOLOGY Negative for prolonged bleeding, bruising easily, and swollen nodes. NEURO: Negative for numbness or tingling of hands/feet. No weakness. PHYSICAL EXAMINATION: BP 122/73 Pulse 91 Temp 36.2 C (97.2 F) (Temporal) Resp 16 Ht 190.5 cm (6' 3 ) Wt 132.6 kg (292 lb 6.4 oz) SpO2 94% BMI 36.55 kg/m Wt 132.6 kg (292 lb 6.4 oz) BMI 36.55 kg/m2 Last 3 Encounter Wt Readings: Date: Wt: 09/21/2021 132.6 kg (292 lb 6.4 oz) 04/02/2019 141.4 kg (311 lb 12.8 oz) 01/09/2018 136.1 kg (300 lb) General appearance:ECOG PERFORMANCE STATUS: 1- Restricted in physically strenuous activity. Carries out light duty. Patient in NAD. Skin: Skin color, texture, turgor normal. No rashes or lesions. Eyes: Anicteric sclera. Pupils are equally round and reactive to light. Extraocular movements are intact. Breast: No palpable breast masses. No nipple change or discharge. Lymph Nodes: No cervical, supraclavicular, axillary or inguinal adenopathy. Oropharynx: Lips, mucosa, and tongue normal. Back: No pain to percussion. Negative SLR test Lungs clear to auscultation, No wheezing or rhonchi Heart: RRR without murmur, gallop, or rubs. Abdomen soft, non-tender. No masses, organomegaly Extremities: No deformities. No edema Neuro: Gait and speech normal. Reflexes normal and symmetric. Muscular strength intact. Sensation grossly intact. Rectal: Deferred : Deferred LABS: Glucose (mg/dL) Date Value 12/15/2016 101 Potassium (mmol/L) Date Value 12/15/2016 4.1 Sodium (mmol/L) Date Value 12/15/2016 140 Chloride (mmol/L) Date Value 12/15/2016 96 CO2 (mmol/L) Date Value 12/15/2016 31 Creatinine (mg/dL) Date Value 12/15/2016 0.87 BUN (mg/dL) Date Value 12/15/2016 10 Anion Gap (mmol/L) Date Value 12/15/2016 13 Calcium (mg/dL) Date Value 12/15/2016 9.3 Protein, Total (g/dL) Date Value 12/15/2016 7.3 Albumin (g/dL) Date Value 12/15/2016 2.9 Bilirubin, Total (mg/dL) Date Value 12/15/2016 0.3 Alkaline Phosphatase (U/L) Date Value 12/15/2016 53 AST (U/L) Date Value 12/15/2016 12 ALT (U/L) Date Value 12/15/2016 9 WBC Date Value Ref Range Status 12/15/2016 9.32 3.70 - 11.00 k/uL Final RBC Date Value Ref Range Status 12/15/2016 3.41 (L) 4.20 - 6.00 m/uL Final Hemoglobin Date Value Ref Range Status 12/15/2016 8.4 (L) 13.0 - 17.0 g/dL Final Hematocrit Date Value Ref Range Status 12/15/2016 28.4 (L) 39.0 - 51.0 % Final MCV Date Value Ref Range Status 12/15/2016 83.3 80.0 - 100.0 fL Final MCH Date Value Ref Range Status 12/15/2016 24.6 (L) 26.0 - 34.0 pG Final MCHC Date Value Ref Range Status 12/15/2016 29.6 (L) 30.5 - 36.0 g/dL Final RDW-CV Date Value Ref Range Status 12/15/2016 18.6 (H) 11.5 - 15.0 % Final Platelet Count Date Value Ref Range Status 12/15/2016 682 (H) 150 - 400 k/uL Final MPV Date Value Ref Range Status 12/15/2016 8.7 (L) 9.0 - 12.7 fL Final Abs Neut (ANC) Date Value Ref Range Status 12/15/2016 5.78 1.45 - 7.50 k/uL Final Lymph% Date Value Ref Range Status 12/15/2016 21.2 % Final Abs Lymph Date Value Ref Range Status 12/15/2016 1.98 1.00 - 4.00 k/uL Final Apache% Date Value Ref Range Status 12/15/2016 10.6 % Final Abs Apache Date Value Ref Range Status 12/15/2016 0.99 (H) 0.00 - 0.86 k/uL Final Abs Eosin Date Value Ref Range Status 12/15/2016 0.49 (H) 0.00 - 0.45 k/uL Final Baso% Date Value Ref Range Status 12/15/2016 0.0 % Final Abs Baso Date Value Ref Range Status 12/15/2016 0.00 0.00 - 0.10 k/uL Final PATH: IMAGING: Ultrasound of the left leg August 2021: ASSESSMENT AND PLAN: Elena Felix is a 61 year old year old male with a past medical history significant for ankylosing spondylitis managed by rheumatology, BPH, congestive heart failure. He had undergone a surgical procedure in the past which was complicated with a prolonged hospital course and September 2016 and subsequent resultant large clot burden provoked proximal bilateral deep vein thrombosis. Patient was initially started on Coumadin, IVC filter placed due to planned reoperations which was subsequently removed in November 2017 and the patient was also subsequently taken off anticoagulation since 2018. More recently in August 2021 patient presented with a short segment distal DVT in the left leg which appears to be unprovoked. I had an extensive discussion with him. He certainly has a number of risk factors for recurrent clotting including his underlying inflammatory condition, ankylosing spondylitis, obesity as well as being a male. His initial DVT was a provoked event and the second distal eventappears to be unprovoked. After lengthy discussion with him he will take therapy for approximately 3 months. We will stop andreevaluate at that time with a hypercoagulable profile including lupus inhibitors. At that point the option would be continuation due to his underlying risk factors including his underlying inflammatory condition or stopping therapy after risk assessment. Patient agrees in the meantime we will continue with Alfonso. Plan on seeing him back in approximately 3 months. Of note he has undergone appropriate screening studies including colonoscopy approximately year agowhich showed a polyp and no malignancy. Dear Dr. Silvana Lundberg thank you for allowing me to participate in Mr. Elena Felix [facility], if there are any questions or concerns please do not hesitate to contact me at the number below. Merly Marti M.D. Hematology/Medical Oncology [facility] [place] [phone] CC: Silvana Lundberg MD I spent a total of 50 minutes on the date of the service which included preparing to see the patient, [id number] patient care, completing clinical documentation, obtaining and/or reviewing separately obtained history, performing a medically appropriate examination, counseling and educating the pat ient/family/caregiver and ordering medications, tests, or procedures. documented in this encounterPar[facility]08-19-2017 History of Past illness Narrative* Problem Noted Date Resolved Date TIFFANIE (acute kidney injury) 12/09/20162016 Anticoagulation management encounter 10/27/2016 10/30/2016 Wound drainage 09/23/2016 10/30/2016 Pneumonia 12/15/2016 documented as of this encounter (statuses as of 09/16/2021) [address]19-2017 History of Past illness Narrative* Problem Noted Date Resolved Date TIFFANIE (acute kidney injury) 12/09/20162016 Anticoagulation management encounter 10/27/2016 10/30/2016 Wound drainage 09/23/2016 10/30/2016 Pneumonia 12/15/2016 documented as of this encounter (statuses as of 09/29/2021) [address]19-2017 History of Past illness Narrative* Problem Noted Date Resolved Date TIFFANIE (acute kidney injury) 12/09/20162016 Anticoagulation management encounter 10/27/2016 10/30/2016 Wound drainage 09/23/2016 10/30/2016 Pneumonia 12/15/2016 documented as of this encounter (statuses as of 12/28/2021) [address]19-2017 History of Past illness Narrative* Problem Noted Date Resolved Date TIFFANIE (acute kidney injury) 12/09/20162016 Anticoagulation management encounter 10/27/2016 10/30/2016 Wound drainage 09/23/2016 10/30/2016 Pneumonia 12/15/2016 documented as of this encounter (statuses as of 01/02/2022) [address]19-2017 History of Past illness Narrative* Problem Noted Date Resolved Date TIFFANIE (acute kidney injury) 12/09/20162016 Anticoagulation management encounter 10/27/2016 10/30/2016 Wound drainage 09/23/2016 10/30/2016 Pneumonia 12/15/2016 documented as of this encounter (statuses as of 01/18/2022) [address]19-2017 History of Past illness Narrative* Problem Noted Date Resolved Date TIFFANIE (acute kidney injury) 12/09/20162016 Anticoagulation management encounter 10/27/2016 10/30/2016 Wound drainage 09/23/2016 10/30/2016 Pneumonia 12/15/2016 documented as of this encounter (statuses as of 07/12/2022) [address]19-2017 History of Past illness Narrative* Problem Noted Date Resolved Date TIFFANIE (acute kidney injury) 12/09/20162016 Anticoagulation management encounter 10/27/2016 10/30/2016 Wound drainage 09/23/2016 10/30/2016 Pneumonia 12/15/2016 documented as of this encounter (statuses as of 08/15/2022) [address]19-2017 History of Past illness Narrative* Problem Noted Date Resolved Date TIFFANIE (acute kidney injury) 12/09/20162016 Anticoagulation management encounter 10/27/2016 10/30/2016 Wound drainage 09/23/2016 10/30/2016 Pneumonia 12/15/2016 documented as of this encounter (statuses as of 08/16/2022) [address]19-2017 History of Past illness Narrative* Problem Noted Date Resolved Date TIFFANIE (acute kidney injury) 12/09/20162016 Anticoagulation management encounter 10/27/2016 10/30/2016 Wound drainage 09/23/2016 10/30/2016 Pneumonia 12/15/2016 documented as of this encounter (statuses as of 08/16/2022) [address]19-2017 History of Past illness Narrative* Problem Noted Date Resolved Date TIFFANIE (acute kidney injury) 12/09/20162016 Anticoagulation management encounter 10/27/2016 10/30/2016 Wound drainage 09/23/2016 10/30/2016 Pneumonia 12/15/2016 documented as of this encounter (statuses as of 08/28/2022) [address]19-2017 History of Past illness Narrative* Problem Noted Date Resolved Date TIFFANIE (acute kidney injury) 12/09/20162016 Anticoagulation management encounter 10/27/2016 10/30/2016 Wound drainage 09/23/2016 10/30/2016 Pneumonia 12/15/2016 documented as of this encounter (statuses as of 08/30/2022) [address]19-2017 History of Past illness Narrative* Problem Noted Date Resolved Date TIFFANIE (acute kidney injury) 12/09/20162016 Anticoagulation management encounter 10/27/2016 10/30/2016 Wound drainage 09/23/2016 10/30/2016 Pneumonia 12/15/2016 documented as of this encounter (statuses as of 09/19/2022) [address]19-2017 History of Past illness Narrative* Problem Noted Date Resolved Date TIFFANIE (acute kidney injury) 12/09/20162016 Anticoagulation management encounter 10/27/2016 10/30/2016 Wound drainage 09/23/2016 10/30/2016 Pneumonia 12/15/2016 documented as of this encounter (statuses as of 10/05/2022) [address]19-2017 History of Past illness Narrative* Problem Noted Date Resolved Date TIFFANIE (acute kidney injury) 12/09/20162016 Anticoagulation management encounter 10/27/2016 10/30/2016 Wound drainage 09/23/2016 10/30/2016 Pneumonia 12/15/2016 documented as of this encounter (statuses as of 10/06/2022) [address]19-2017 History of Past illness Narrative* Problem Noted Date Resolved Date TIFFANIE (acute kidney injury) 12/09/20162016 Anticoagulation management encounter 10/27/2016 10/30/2016 Wound drainage 09/23/2016 10/30/2016 Pneumonia 12/15/2016 documented as of this encounter (statuses as of 10/16/2022) [address]19-2017 History of Past illness Narrative* Problem Noted Date Resolved Date TIFFANIE (acute kidney injury) 12/09/20162016 Anticoagulation management encounter 10/27/2016 10/30/2016 Wound drainage 09/23/2016 10/30/2016 Pneumonia 12/15/2016 documented as of this encounter (statuses as of 10/17/2022) [address]19-2017 History of Past illness Narrative* Problem Noted Date Resolved Date TIFFANIE (acute kidney injury) 12/09/20162016 Anticoagulation management encounter 10/27/2016 10/30/2016 Wound drainage 09/23/2016 10/30/2016 Pneumonia 12/15/2016 documented as of this encounter (statuses as of 10/17/2022) [address]19-2017 History of Past illness Narrative* Problem Noted Date Resolved Date TIFFANIE (acute kidney injury) 12/09/20162016 Anticoagulation management encounter 10/27/2016 10/30/2016 Wound drainage 09/23/2016 10/30/2016 Pneumonia 12/15/2016 documented as of this encounter (statuses as of 10/23/2022) [address]19-2017 History of Past illness Narrative* Problem Noted Date Diagnosed Date Resolved Date TIFFANIE (acute kidney injury) 12/09/2016 Anticoagulation management encounter 10/27/2016 10/30/2016 Wound drainage 09/23/2016 10/30/2016 Pneumonia 12/15/2016 documented as of this encounter (statuses as of 12/01/2022) [facility] of Past illness Narrative* Problem Noted Date Diagnosed Date Resolved Date TIFFANIE (acute kidney injury) 12/09/2016 Anticoagulation management encounter 10/27/2016 10/30/2016 Wound drainage 09/23/2016 10/30/2016 Pneumonia 12/15/2016 documented as of this encounter (statuses as of 02/05/2023) [address]19-2017 History of Past illness Narrative* Problem Noted Date Diagnosed Date Resolved Date TIFFANIE (acute kidney injury) 12/09/2016 Anticoagulation management encounter 10/27/2016 10/30/2016 Wound drainage 09/23/2016 10/30/2016 Pneumonia 12/15/2016 documented as of this encounter (statuses as of 02/23/2023) [facility] Future Appointments Appointment Date:05/04/2023 08:15:00 AM Scheduled Provider:Jerrod BELL MD Location:[facility] Appointment Type:URO Office Visit [facility] evaluation noteNo Assessments Information Available [facility] Diagnosis Acute deep vein thrombosis (DVT) of distal end of left lower extremity (HCC)- Primary [facility] Diagnosis Acute deep vein thrombosis (DVT) of distal end of left lower extremity (HCC)- Primary [facility] Diagnosis History of DVT (deep vein thrombosis)- Primary Personal history of venous thrombosis and embolism documented [facility] this encounter [facility]* Diagnosis Orthostatic hypotension POTS (postural orthostatic tachycardia syndrome) Tachycardia, unspecified documented in this encounter [facility] Work Phone: evaluation note* Diagnosis POTS (postural orthostatic tachycardia syndrome)- Primary Tachycardia, unspecified Lightheadedness Dizziness and giddiness POTS (postural orthostatic tachycardia syndrome) Tachycardia, unspecified documented [facility] this encounter [facility]* Diagnosis Lightheadedness- Primary Dizziness and giddiness Change in blood pressure Other abnormal clinical finding SOB (shortness of breath) Shortness of breath POTS (postural orthostatic tachycardia syndrome) Tachycardia, unspecified Exertional dyspnea Other dyspnea and respiratory abnormality Other secondary pulmonary hypertension (HCC) Autonomic dysfunction Unspecified disorder of autonomic nervous system Ankylosing spondylitis of multiple sites in spine (HCC) Ankylosing spondylitis Acute deep vein thrombosis (DVT) of distal end of left lower extremity (HCC) Morbid obesity with BMI of 40.0-44.9, adult (HCC) Morbid obesity Lightheadedness Dizziness and giddiness POTS (postural orthostatic tachycardia syndrome) Tachycardia, unspecified documented in this encounter [facility] Diagnosis Chronic diastolic congestive heart failure (HCC)- Primary Chronic diastolic heart failure [facility] Diagnosis Ankylosing spondylitis of multiple sites in spine (HCC) Ankylosing spondylitis documented in this encounter [facility] Diagnosis Exertional dyspnea Other dyspnea and respiratory abnormality Other secondary pulmonary hypertension (HCC) documented in this encounter [facility]* Diagnosis Disturbance of skin sensation- Primary Lightheadedness Dizziness and giddiness Change in blood pressure Other abnormal clinical finding Orthostatic hypotension Tremulousness Abnormal involuntary movements documented in this encounter [facility] note* Diagnosis Radiculopathy, lumbar region- Primary Thoracic or lumbosacral neuritis or radiculitis, unspecified Disturbance of skin sensation 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 Pain in right leg Paresthesia of skin Disturbance of skin sensation documented in this encounter [facility] note* Diagnosis Dilated cardiomyopathy (HCC)- Primary Other primary cardiomyopathies documented in this encounter [facility] note* Diagnosis Ankylosing spondylitis of multiple sites in spine (HCC)- Primary Ankylosing spondylitis documented in this encounter [facility] noteNo assessment information [facility] Work Phone: Evaluation [facility]No [facility] Other Evaluation note* Diagnosis SOB (shortness of breath)- Primary Shortness of breath Coronary artery disease involving [place] coronary artery of [place] heart without angina pectoris Palpitations documented in this encounter [facility] note* Diagnosis Shortness of breath- Primary Near syncope Syncope and collapse documented in this encounter [facility] note* Diagnosis Exertional dyspnea Other dyspnea and respiratory abnormality documented in this encounter [facility] general Narrative - Reported* Type Description Date Medical History Arthritis of spine Medical History Peripheral neuropathy Medical History Tachycardia Medical History Leg cramps Medical History asthma Surgical History back surgery x 3 Surgical History right hip replaced Surgical History right hand x 2 Hospitalization History see above Hospitalization History infected incision and se psis and blood clot [facility] Scout Other History general Narrative - Reported* Type Description Date Medical History Arthritis of spine Medical History Peripheral neuropathy Medical History Tachycardia Medical History Leg cramps Medical History asthma Medical History Left femoral neck fracture Surgical History back surgery x 3 Surgical History right hip replaced Surgical History right hand x 2 Hospitalization History see above Hospitalization History infected incision and se psis and blood clot [place] [facility] [facility] Other Hospital course Narrative No data available for this section [facility] progress note No data available for this section [facility] reason for referral (narrative)* Outpatient Procedure (Routine) - Authorized Specialty Diagnoses / Procedures Referred By Chen t Referred To [facility] Diagnoses POTS (postural orthostatic tachycardia syndrome) Procedures ECG COMPLETE ECG ROUTINE ECG W/LEAST 12 LDS W/I&R Austin Clark MD [address] [id number] [facility] [place] [address] [place] [address] Referral ID Status Reason Start Date Expiration Date Visits Requested Visits Authorized [id number] Authorized Auto-Generat ed Referral 08/16/2022 08/16/2023 1 1 [facility] for referral (narrative)* Diagnostic Procedure Only (Routine) - Closed Specialty Diagnoses / Procedures Referred By Chen anne Referred To Contact MOLECULAR & FUNCTIONAL IMAGING Diagnoses Exertional dyspnea Other secondary pulmonary hypertension (HCC) Procedures NM LUNG VENT / PERF VQ PULMONARY VENTILATION & PERFUSION IMAGING Tricia Howard MD [address] [place] [address] Molecular & Functional Imaging [address] [place] [address] Referral ID Status Reason Start Date Expiration Date V isits Requested Visits Authorized [id number] Closed Auto-Generate d Referral 08/16/2022 09/15/2023 1 1 [facility] for referral (narrative)* Outpatient Procedure (Routine) - Authorized Specialty Diagnoses / Procedures Referred By Chen anne Referred To Contact [facility] Diagnoses Disturbance of skin sensation Procedures EMG(NEURO/NI) NERVE CONDUCTION STUDIES 9-10 STUDIES Anna North, SIGNAL WORKER.ROLLER CHECKER [address] [place] [address] [facility] [place] [address] [place] [address] Referral ID Status Reason Start Date Expiration Date Visits Requested Visits Authorized [id number] Authorized Auto-Generat ed Referral 10/06/2022 10/07/2023 1 1 [facility] for referral (narrative)* Outpatient Procedure (Routine) - Authorized Specialty Diagnoses / Procedures Referred By Karsonac t Referred To Contact [facility] Diagnoses SOB (shortness of breath) Procedures CARDIOPULMONARY EXERCISE TEST PULMONARY STRESS TESTING Tricia Howard MD [address] [place] [address] Res[facility] [place] [address] [place] [address] Referral ID Status Reason Start Date Expiration Date Visits Requested Visits Authorized [id number] Authorized Auto-Generat ed Referral 11/17/2022 12/17/2023 1 1 [facility] for referral (narrative)* Diagnostic Procedure Only (Routine) - Closed Specialty Diagnoses / Procedures Referred By Contyaron t Referred To Contact [facility] Diagnoses Exertional dyspnea Procedures ECHO ECHO TTHRC R-T 2D W/WOM-MODE COMPL SPEC&COLR D Tricia Howard MD [address] [place] [address] [facility] [place] [address] [place] [address] Referral ID Status Reason Start Date Expiration Date V isits Requested Visits Authorized [id number] Closed Auto-Generate d Referral 08/31/2022 11/29/2022 1 1 [facility] for visit Narrative* Diagnostic Procedure Only (Routine) - Closed Specialty Diagnoses / Procedures Referred By Contac t Referred To Contact [facility] Diagnoses Exertional dyspnea Procedures ECHO ECHO TTHRC R-T 2D W/WOM-MODE COMPL SPEC&COLR D Tricia Howard MD [address] [place] [address] [facility] [place] [address] [place] [id number] Referral ID Status Reason Start Date Expiration Date V isits Requested Visits Authorized [id number] Closed Auto-Generate d Referral 08/31/2022 11/29/2022 1 1 [facility] Advance Directives No Advanced Directives Records Found Advance Directive Response Recorded Date/ Time Advance Directives No January 31, 2017 11:35am Documents on File Type Date Recorded 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 Advance Directive(s) 11/29/2017 5:55 AM Advance Directive(s) 11/19/2017 8:19 AM Advance Directive(s) 11/19/2017 10:21 AM Advance Directive(s) 12/10/2016 12:37 PM Advance Directive(s) 09/24/2016 2:38 PM Advance Directive(s) 08/24/2016 12:03 PM Advance Directive(s) 08/24/2016 12:04 PM Documents on File Type Date Recorded 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 Advance Directive(s) 08/24/2016 12:04 PM Documents on File Type Date Recorded 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 Advance Directive(s) 08/24/2016 12:04 PM Advance Directive Response Recorded Date/ Time Advance Directives No January 31, 2017 10:35am Chief Complaint and Reason for Visit Chief Complaint vaccine ins Chief Complaint L03.116 Summary Purpose Family History No Family History Records FoundNo Family History Records FoundNo Family History Records FoundNo Family History Records FoundNo Family History Records FoundNo Family History Records FoundNo Family History Records Found Reason for Referral Specialty Diagnoses / Procedures Referred By Contac t Referred To Contact MR IMAGING Diagnoses Dilated cardiomyopathy (HCC) Procedures MRI CARDIAC VELOCITY FLOW MAP CARDIAC MRI FOR VELOCITY FLOW MAPPING Tricia Howard MD [address] [place] [address] Mr Imaging Referral ID Status Reason Start Date Expiration Date Visits Requested Visits Authorized [id number] Pending Review Auto-Generat ed Referral 10/17/2022 11/16/2023 1 1 Specialty Diagnoses / Procedures Referred By Contac t Referred To Contact MR IMAGING Diagnoses Dilated cardiomyopathy (HCC) Procedures MRI CARDIAC MORPH FUNC WO/W IVCON CARDIAC MRI W/WO CONTRAST & FURTHER SEQ Tricia Howard MD [address] [place] [address] Mr Imaging Referral ID Status Reason Start Date Expiration Date Visits Requested Visits Authorized [id number] Pending Review Auto-Generat ed Referral 10/17/2022 11/16/2023 1 1 Specialty Diagnoses / Procedures Referred By Contac t Referred To Contact Neurology Diagnoses Lightheadedness Change in blood pressure Procedures CONSULT TO NEUROLOGY OFFICE/OUTPATIENT [facility] 60-74 MINUTES Tricia Howard MD [address] [place] [address] Referral ID Status Reason Start Date Expiration Date Visits Requested Visits Authorized [id number] Authorized PCP Requested Referral 08/16/2022 08/16/2023 1 1 Specialty Diagnoses / Procedures Referred By Contac t Referred To Contact Rheumatology Diagnoses Ankylosing spondylitis of multiple sites in spine (HCC) Procedures CONSULT TO RHEUM/IMMUN DISEASE OFFICE/OUTPATIENT [facility] 60-74 MINUTES Tricia Howard MD [address] [place] [address] Referral ID Status Reason Start Date Expiration Date V isits Requested Visits Authorized [id number] Closed PCP Requested Referral 08/16/2022 08/16/2023 1 1 Specialty Diagnoses / Procedures Referred By Contac t Referred To Contact Diagnoses Lightheadedness POTS (postural orthostatic tachycardia syndrome) Autonomic dysfunction Procedures CONSULT TO [facility] OFFICE/OUTPATIENT [facility] 60-74 MINUTES Tricia Howard MD [address] [place] [address] Referral ID Status Reason Start Date Expiration Date Visits Requested Visits Authorized [id number] Authorized PCP Requested Referral 08/16/2022 08/16/2023 1 1 Specialty Diagnoses / Procedures Referred By Contac t Referred To Contact MOLECULAR & FUNCTIONAL IMAGING Diagnoses Exertional dyspnea Other secondary pulmonary hypertension ([facility]) Procedures NM LUNG VENT / PERF VQ PULMONARY VENTILATION & PERFUSION IMAGING Tricia Howard MD [address] [place] [address] Molecular & Functional Imaging [address] [place] [address] Referral ID Status Reason Start Date Expiration Date Visits Requested Visits Authorized [id number] Pending Review Auto-Generat ed Referral 08/16/2022 09/15/2023 1 1 Specialty Diagnoses / Procedures Referred By Contac t Referred To Contact [facility] [place] Diagnoses Exertional dyspnea Procedures ECHO ECHO TTHRC R-T 2D W/WOM-MODE COMPL SPEC&COLR D Tricia Howard MD [address] [place] [address] [facility] [address] [address] Referral ID Status Reason Start Date Expiration Date Visits Requested Visits Authorized [id number] Pending Review Auto-Generat ed Referral 08/16/2022 08/16/2023 1 1 Specialty Diagnoses / Procedures Referred By Contac t Referred To Contact [facility] [place] Diagnoses Lightheadedness Change in blood pressure Procedures ECG COMPLETE ECG ROUTINE ECG W/LEAST 12 LDS W/I&R Tricia Howard MD [address] [place] [address] [place] [phone] Referral ID Status Reason Start Date Expiration Date V isits Requested Visits Authorized [id number] Closed Auto-Generate d Referral 06/27/2022 06/27/2023 1 1 Specialty Diagnoses / Procedures Referred By Contac t Referred To Contact Diagnoses Orthostatic hypotension POTS (postural orthostatic tachycardia syndrome) Procedures Tilt Table Test Carlos Krishna, RAGINI - JARAD [address] [facility] [place] [address] Referral ID Status Reason Start Date Expiration Date Visits Re quested Visits Authorized [id number] Closed 07/24/2022 07/24/2023 1 1 Additional Source Comments (unrecognized sect ion and content) No Status Records FoundNo Status Records FoundNo Status Records FoundNo Status Records FoundNo Status Records FoundNo Status Records FoundNo Status Records Found INFORMATION SOURCE (unrecogn ized section and content) DATE CREATED AUTHOR 06/29/2021 [facility] DATE CREATED AUTHOR AUTHOR'S ORGANIZ ATION 08/01/2022 Maria Guadalupe Garcia [facility] DATE CREATED AUTHOR AUTHOR'S ORGANIZ ATION 09/07/2022 Hua Freyue [facility] DATE CREATED AUTHOR AUTHOR'S ORGANIZ ATION 10/04/2022 [facility] DATE CREATED AUTHOR AUTHOR'S ORGANIZ ATION 02/13/2023 [facility] DATE CREATED AUTHOR AUTHOR'S ORGANIZ ATION 04/21/2023 Brandon Bruno [facility] DATE CREATED AUTHOR AUTHOR'S ORGANIZ ATION 05/04/2023 [facility] Source Comments (unrecognize d section and content) In the event this informatio n is protected by the Federal Confidentiality of Alcohol and Drug Abuse Patient Records regulations: The Federal rules restrict any use of the information to criminally investigate or prosecute any alcohol or drug abuse patient.[facility] the event this information is protected by the Federal Confidentiality of Alcohol and Drug Abuse Patient Records regulations: The Federal rules restrict any use of the information to criminally investigate or prosecute any alcohol or drug abuse patient.[facility] the event this information is protected by the Federal Confidentiality of Alcohol and Drug Abuse Patient Records regulations: The Federal rules restrict any use of the information to criminally investigate or prosecute any alcohol or drug abuse patient.[facility] the event this information is protected by the Federal Confidentiality of Alcohol and Drug Abuse Patient Records regulations: The Federal rules restrict any use of the information to criminally investigate or prosecute any alcohol or drug abuse patient.[facility] the event this information is protected by the Federal Confidentiality of Alcohol and Drug Abuse Patient Records regulations: The Federal rules restrict any use of the information to criminally investigate or prosecute any alcohol or drug abuse patient.[facility] the event this information is protected by the Federal Confidentiality of Alcohol and Drug Abuse Patient Records regulations: The Federal rules restrict any use of the information to criminally investigate or prosecute any alcohol or drug abuse patient.[facility] the event this information is protected by the Federal Confidentiality of Alcohol and Drug Abuse Patient Records regulations: The Federal rules restrict any use of the information to criminally investigate or prosecute any alcohol or drug abuse patient.[facility] the event this information is protected by the Federal Confidentiality of Alcohol and Drug Abuse Patient Records regulations: The Federal rules restrict any use of the information to criminally investigate or prosecute any alcohol or drug abuse patient.[facility] the event this information is protected by the Federal Confidentiality of Alcohol and Drug Abuse Patient Records regulations: The Federal rules restrict any use of the information to criminally investigate or prosecute any alcohol or drug abuse patient.[facility] the event this information is protected by the Federal Confidentiality of Alcohol and Drug Abuse Patient Records regulations: The Federal rules restrict any use of the information to criminally investigate or prosecute any alcohol or drug abuse patient.[facility] the event this information is protected by the Federal Confidentiality of Alcohol and Drug Abuse Patient Records regulations: The Federal rules restrict any use of the information to criminally investigate or prosecute any alcohol or drug abuse patient.[facility] the event this information is protected by the Federal Confidentiality of Alcohol and Drug Abuse Patient Records regulations: The Federal rules restrict any use of the information to criminally investigate or prosecute any alcohol or drug abuse patient.[facility] the event this information is protected by the Federal Confidentiality of Alcohol and Drug Abuse Patient Records regulations: The Federal rules restrict any use of the information to criminally investigate or prosecute any alcohol or drug abuse patient.[facility] the event this information is protected by the Federal Confidentiality of Alcohol and Drug Abuse Patient Records regulations: The Federal rules restrict any use of the information to criminally investigate or prosecute any alcohol or drug abuse patient.[facility] the event this information is protected by the Federal Confidentiality of Alcohol and Drug Abuse Patient Records regulations: The Federal rules restrict any use of the information to criminally investigate or prosecute any alcohol or drug abuse patient.[facility] the event this information is protected by the Federal Confidentiality of Alcohol and Drug Abuse Patient Records regulations: The Federal rules restrict any use of the information to criminally investigate or prosecute any alcohol or drug abuse patient.[facility] the event this information is protected by the Federal Confidentiality of Alcohol and Drug Abuse Patient Records regulations: The Federal rules restrict any use of the information to criminally investigate or prosecute any alcohol or drug abuse patient.[facility] the event this information is protected by the Federal Confidentiality of Alcohol and Drug Abuse Patient Records regulations: The Federal rules restrict any use of the information to criminally investigate or prosecute any alcohol or drug abuse patient.[facility] the event this information is protected by the Federal Confidentiality of Alcohol and Drug Abuse Patient Records regulations: The Federal rules restrict any use of the information to criminally investigate or prosecute any alcohol or drug abuse patient.[facility] the event this information is protected by the Federal Confidentiality of Alcohol and Drug Abuse Patient Records regulations: The Federal rules restrict any use of the information to criminally investigate or prosecute any alcohol or drug abuse patient.[facility] the event this information is protected by the Federal Confidentiality of Alcohol and Drug Abuse Patient Records regulations: The Federal rules restrict any use of the information to criminally investigate or prosecute any alcohol or drug abuse patient.[facility] the event this information is protected by the Federal Confidentiality of Alcohol and Drug Abuse Patient Records regulations: The Federal rules restrict any use of the information to criminally investigate or prosecute any alcohol or drug abuse patient.[facility] the event this information is protected by the Federal Confidentiality of Alcohol and Drug Abuse Patient Records regulations: The Federal rules restrict any use of the information to criminally investigate or prosecute any alcohol or drug abuse patient.[facility] Care Teams (unrecognized sec tion and content) Heel Slicker Relationship Specialty Start Date End Date Silvana Lundberg MD [address] [place] [phone] PCP - General Family Practice 07/15/15 Samuel Burnette Referring Pain Management 07/15/15 Heel Slicker Relationship Specialty Start Date End Date Silvana Lundberg MD [address] [facility] [place] [address] PCP - General Family Practice 07/15/15 Samuel Burnette Referring Pain Management 07/15/15 Heel Slicker Relationship Specialty Start Date End Date Silvana Lundberg MD [address] [facility] [place] [address] PCP - General Family Practice 07/15/15 Samuel Burnette Referring Pain Management 07/15/15 Heel Slicker Relationship Specialty Start Date End Date Silvana Lundberg MD [address] [facility] [place] [address] PCP - General Family Practice 07/15/15 Samuel Burnette Referring Pain Management 07/15/15 Heel Slicker Relationship Specialty Start Date End Date Silvana Lundberg MD [address] [facility] [place] [address] PCP - General Family Medicine 07/15/15 Samuel Burnette Referring Pain Management 07/15/15 Heel Slicker Relationship Specialty Start Date End Date Silvana Lundberg MD [address] [facility] [place] [address] PCP - General Family Medicine 07/15/15 Samuel Burnette [address] [facility] [place] [address] Referring Pain Management 07/15/15 Heel Slicker Relationship Specialty Start Date End Date Silvana Lundberg MD [address] [facility] [place] [address] PCP - General Family Medicine 07/25/22 Heel Slicker Relationship Specialty Start Date End Date Silvana Lundberg MD [address] [facility] [place] [address] PCP - General Family Medicine 07/15/15 Samuel Burnette [address] [facility] [place] [address] Referring Pain Management 07/15/15 Maria Teresa Ba, ROLLER CHECKER [address] [facility] [address] [facility] [place] [address] Family Medicine 08/16/22 Heel Slicker Relationship Specialty Start Date End Date Silvana Lundberg MD [address] [facility] [place] [address] PCP - General Family Medicine 07/15/15 Samuel Burnette [address] [facility] [place] [address] Referring Pain Management 07/15/15 Maria Teresa Ba, ROLLER CHECKER [address] [place] [address] Family Medicine 08/16/22 Heel Slicker Relationship Specialty Start Date End Date Silvana Lundberg MD [address] [facility] [place] [address] PCP - General Family Medicine 07/15/15 Samuel Burnette [address] [facility] [place] [address] Referring Pain Management 07/15/15 Maria Teresa Ba, ROLLER CHECKER [address] [place] [address] Family Medicine 08/16/22 Heel Slicker Relationship Specialty Start Date End Date Silvana Lundberg MD [address] [facility] [place] [address] PCP - General Family Medicine 07/15/15 Samuel Burnette [address] [facility] [place] [address] Referring Pain Management 07/15/15 JeseniaMaria Teresa lui, ROLLER CHECKER [address] [place] [address] Family Medicine 08/16/22 Heel Slicker Relationship Specialty Start Date End Date Silvana Lundberg MD [address] [facility] [place] [phone] PCP - General Family Medicine 07/15/15 Samuel Burnette [address] [facility] [place] [address] Referring Pain Management 07/15/15 Maria Teresa Ba, ROLLER CHECKER [address] [place] [address] Family Medicine 08/16/22 Heel Slicker Relationship Specialty Start Date End Date Silvana Lundberg MD [address] [facility] [place] [address] PCP - General Family Medicine 07/15/15 Samuel Burnette [address] [facility] [place] [address] Referring Pain Management 07/15/15 Maria Teresa Ba, ROLLER CHECKER [address] [place] [address] Family Medicine 08/16/22 Heel Slicker Relationship Specialty Start Date End Date Silvana Lundberg MD [address] [facility] [place] [address] PCP - General Family Medicine 07/15/15 Samuel Burnette [address] [facility] [place] [address] Referring Pain Management 07/15/15 [facility] ROLLER CHECKER [address] [place] [address] Family Medicine 08/16/22 Heel Slicker Relationship Specialty Start Date End Date Silvana Lundberg MD [address] [facility] [place] [address] PCP - General Family Medicine 07/15/15 Samuel Burnette [address] [facility] [place] [address] Referring Pain Management 07/15/15 Maria Teresa Ba, ROLLER CHECKER [address] [place] [address] Family Medicine 08/16/22 Heel Slicker Relationship Specialty Start Date End Date Silvana Lundberg MD [address] [facility] [place] [address] PCP - General Family Medicine 07/15/15 Samuel Burnette [address] [facility] [place] [address] Referring Pain Management 07/15/15 Qian Baissa, ROLLER CHECKER [address] [place] [address] Family Medicine 08/16/22 Heel Slicker Relationship Specialty Start Date End Date Silvana Lundberg MD [address] [facility] [place] [address] PCP - General Family Medicine 07/15/15 Samuel Burnette [address] [facility] [place] [address] Referring Pain Management 07/15/15 Maria Teresa Ba, ROLLER CHECKER [address] [place] [address] Family Medicine 08/16/22 Team Status: Inactive Member Role Status Dates Silvana Lundberg MD Attending Provider Active Heel Slicker Relationship Specialty Start Date End Date Silvana Lundberg MD [address] [facility] [place] [address] PCP - General Family Medicine 07/15/15 Samuel Burnette [address] [place] [address] Referring Pain Management 07/15/15 Maria Teresa Ba, SAHIL [address] [facility] 1 [place] [phone] Family Medicine 08/16/22 Team Status: Active Member Role Status Dates PHYSICIAN NO FAMILY Primary Care Provider Active Team Status: Inactive Member Role Status Dates Silvana Lundberg MD Attending Provider Active PHYSICIAN NO FAMILY Primary Care Provider Active Team Status: Inactive Member Role Status Dates PHYSICIAN NO FAMILY Primary Care Provider Active Brad Hodges MD Attending Provider Active Heel Slicker Relationship Specialty Start Date End Date Silvana Lundberg MD [address] [place] [address] PCP - General Family Medicine 07/15/15 Samuel Burnette [address] [place] [phone] Referring Pain Management 07/15/15 Maria Teresa Ba, ROLLER CHECKER [address] [facility] [address] [place] [phone] Family Medicine 08/16/22 Heel Slicker Relationship Specialty Start Date End Date Silvana Lundberg MD [address] [place] [address] PCP - General Family Medicine 07/15/15 aSmuel Burnette [address] [place] [address] Referring Pain Management 07/15/15 Maria Teresa Ba CNP [address] [facility] [address] [facility] [place] [address] Family Medicine 08/16/22 Reason for Visit (unrecogniz ed section and content) Reason Comments DVT. new patient consult Reason Comments Recheck Follow up DVT Reason Comments Results Lab results Reason Comments Results Reason Comments acute deep vein thrombosis Follow up Reason Comments Appointment Specialty Diagnoses / Procedures Referred By Contac t Referred To Contact Diagnoses Orthostatic hypotension POTS (postural orthostatic tachycardia syndrome) Procedures Tilt Table Test Carlos Krishna APRN - FASHION BUYER [address] [facility] 1 [place] [address] Referral ID Status Reason Start Date Expiration Date V isits Requested Visits Authorized [id number] Not Required - RTA 07/24/2022 07/24/2023 1 1 Reason Comments Received Outside Medical Records Reason Comments Consult Rapid heart rateDeve loped heart conditions over the last yr and a halfOrtho static tention Reason Comments Patient Education Reason Comments Shortness of Breath Specialty Diagnoses / Procedures Referred By Contac t Referred To Contact Diagnoses Lightheadedness POTS (postural orthostatic tachycardia syndrome) Procedures RIGHT HEART CATH O2 SATURATION & CARDIAC OUTPUT RIGHT HEART CATHETERIZATION INCLUDING MEASUREMENT OF OXYGEN SATURATION AND CARDIAC OUTPUT [facility] [employer] [address] [place] [address] Referral ID Status Reason Start Date Expiration Date Visits Re quested Visits Authorized [id number] 1 1 Reason Comments Ankylosing Spondylitis Specialty Diagnoses / Procedures Referred By Contac t Referred To Contact Rheumatology Diagnoses Ankylosing spondylitis of multiple sites in spine (HCC) Procedures CONSULT TO RHEUM/IMMUN DISEASE OFFICE/OUTPATIENT NEW HIGH MDM 60-74 MINUTES Tricia Howard MD [address] [place] [address] Referral ID Status Reason Start Date Expiration Date V isits Requested Visits Authorized [id number] Closed PCP Requested Referral 08/16/2022 08/16/2023 1 1 Reason Comments Radiology NM Specialty Diagnoses / Procedures Referred By Contac t Referred To Contact MOLECULAR & FUNCTIONAL IMAGING Diagnoses Exertional dyspnea Other secondary pulmonary hypertension (HCC) Procedures NM LUNG VENT / PERF VQ PULMONARY VENTILATION & PERFUSION IMAGING Tricia Howard MD [address] [place] [id number] Molecular & Functional Imaging [address] [place] [address] Referral ID Status Reason Start Date Expiration Date V isits Requested Visits Authorized [id number] Closed Auto-Generate d Referral 08/16/2022 09/15/2023 1 1 Reason Comments New Patient Specialty Diagnoses / Procedures Referred By Contac t Referred To Contact Neurology Diagnoses Lightheadedness Change in blood pressure Procedures CONSULT TO NEUROLOGY OFFICE/OUTPATIENT NEW HIGH MDM 60-74 MINUTES Tricia Howard MD [address] [place] [id number] Referral ID Status Reason Start Date Expiration Date V isits Requested Visits Authorized [id number] Closed PCP Requested Referral 08/16/2022 08/16/2023 1 1 Reason Onset Date Comments EMG 10/16/2022 Specialty Diagnoses / Procedures Referred By Contac t Referred To Contact [facility] Diagnoses Disturbance of skin sensation Procedures EMG(NEURO/NI) NERVE CONDUCTION STUDIES 9-10 STUDIES Anna North, SIGNAL WORKER.[place] [id number] [facility] [place] [address] [place] [address] Referral ID Status Reason Start Date Expiration Date V isits Requested Visits Authorized [id number] Closed Auto-Generate d Referral 10/06/2022 10/07/2023 1 1 Reason Comments Results Abnormal Labs Reason Comments Results Abnormal labs Reason Comments Established Patient lightheadness Goals (unrecognized section and content) Goals may be documented in a n alternate section FOR RECORDS PERTAINING TO PATIENTS WHO ARE OR HAVE BEEN ENROLLED IN A CHEMICAL DEPENDENCY/SUBSTANCEABUSE PROGRAM, SOME INFORMATION MAY BE OMITTED. This clinical summary was aggregated from multiple sources. Caution should be exercised in using it in the provision of clinical care. This summary normalizes information from multiple sources, and as a consequence, information in this document may materially change the coding, format and clinical context of patient data. In addition, data may be omitted in some cases. CLINICAL DECISIONS SHOULD BE BASED ON THE PRIMARY CLINICAL RECORDS. [facility]. provides no warranty or guarantee of the accuracy or completeness of information in this document.
== END 2023-05-07 09:18 | disposition home or self-care (01) ==
LOC: RAD 09:17
PROVIDERS: PCP Family Medicine; Visit Provider Orthopaedic Surgery
DX: S72.425D Nondisplaced fracture of lateral condyle of left femur, subsequent encounter for closed fracture with routine healing (principal)
CPT/HCPCS: 73502

== ENCOUNTER 2023-05-10 12:34 | Outpatient (OUT) | payer MEDICARE, SELFPAY ==
--- OUTSIDE RECORDS SUMMARY | 2023-05-10 12:38 | XMS_ITS | CCD ---
Author Name Unknown Address [address] [place] [address] Organization [facility] Care Team Providers Care Tire Repairer Name Role Phone Silvana Lundberg Primary Care Provider [phone] Aleksey Perez Attending Provider [phone] Silavna Lundberg MD Primary Care Provider Samuel Burnette Unavailable Silvana Lundberg MD Primary Care Provider Samuel Burnette Unavailable Silvana Lundberg MD Primary Care Provider SILVANA LUNDBERG Primary Care Physician Tiffanie Rosario I Unavailable Unavailable Silvana Lundberg Unavailable Silvana Lundberg MD Primary Care Provider Samuel Burnette Unavailable Silvana Lundberg MD Primary Care Provider CARLOS KRISHNA Referring Unavailable SILVANA LUNDBERG Primary Care Unavailable Maria Teresa Ba CNP Unavailable CARLOS KRISHNA Attending Unavailable CARLOS KRISHNA [...] LUNDBERG, DR SILVANA Ko Primary Care Unavailable BALL, DR NOBLE Consulting Unavailable BALL, DR NOBLE Attending Unavailable BALL, DR NOBLE Admitting Unavailable BALL, DR NOBLE Primary Care Unavailable ALBERTINA, BRYSON Attending Unavailable LUNDBERG, DR SILVANA Ko Primary Care Unavailable ALBERTINA, BRYSON Admitting Unavailable WEST, DR MAJOR Jackson Consulting Unavailable ALBERTINA, BRYSON Consulting Unavailable MADAYANGELES Consulting Unavailable DANIS PANDA Consulting Unavailable HDOGES, DR SALINAS Admitting Unavailable HODGES, DR SALINAS [...] Attending Unavailable MD Silvana Lundberg Attending Provider [phone] NO FAMILY, PHYSICIAN Primary Care Provider Unava ilable MD Brad Hodges Attending Provider [phone] MAYUGA, AUSTIN Referring Unavailable LUNDBERG, SILVANA E [...] Admitting Unavailable ANDERSONEMILY BECKMAN Attending Unavailable ANDERSON, DIAZ Referring Unavailable LUNDBERG, SILVANA E Primary Care [...] Translations: [lisinopril] Drug Allergy 09-17-19 22 Unknown [facility] (20 sources) Morphine; Translations: [morphine] Drug Allergy 08-25-19 17 Intolerance [facility] Work Phone: Comment on above: Tolerated hydromorph one during 11/2016 admission (17 sources) Losartan; Translations: [LOSARTAN] Drug Allergy 05-30-19 23 Unknown [facility] (2 sources) Morphine Drug Allergy 11-07-19 15 [facility] (2 sources) patient allergy list reviewed by nurse or physicia Propensity to adverse reactions 04-15-20 14 Comment:Done [facility] Other (2 sources) Allergies Reconciled Propensity to adverse reactions Unknown [facility] Other Medications Current Medications Medication Drug Class(es) [...] 10/14/13 Status: Ordered take 1 capsule by [facility] every twelve hours DULoxetine HCl 60 [...] BID, # 180 caplet(s), Refills(s) 3, Pharmacy: [facility]/pharmacy #[id number], 188, cm, 07/04/21 9:20:00 EDT, Height/Length [...] Drug Class(es) Dates Sig (Normalized) Sig (Original) [id number] 200 actuat albuterol 0.09 mg/actuat metered dose [...] Status: Ordered take 1 capsule by mo [facility] once daily Metoprolol Succinate 50 MG 1 [...] mg by mouth three times daily. nystatin [id number] unt/ml oral suspension (6 sources) Polyene Antifungal Start: 0 take 4 mL by mouth four times daily Nystatin [id number] UNIT/ML 4 ml Mouth/Throat Four times a [...] Coronary arteriosclerosis; Translations: [Atherosclerotic heart disease of [place] coronary artery without angina pectoris] 11-30-2022 Chronic [...] 09-12-2016 Chronic Other aftercare (1 source) Other fdc (current) drug therapy; Translations: [OTH INTERMEDIATE CURRENT DRUG THERAPY] Onset: 3 Episodic Other [...] Onset: 08-13-2017 Episodic Other aftercare (1 source) [facility]PC (current) use of aspirin; Translations: [INTERMEDIATE CURRENT USE OF ASPIRIN] Onset: 09-22-2021 Episodic [...] 05-03-2023 ALT [Catalytic activity/Vol] 18 U/L 7-52 [facility] Albumin [Mass/volume] in Ser um or Plasma by Bromocresol green (BCG) dye binding methoOrdered By: Brad Hodges on 05-03-2023 Albumin BCG dye [Mass/Vol] 3.6 g/dL 3.5-5.7 [facility] Alkaline phosphatase [Enzyma tic activity/volume] in Serum or PlasmaOrdered By: Brad Hodges on 05-03-2023 ALP [Catalytic activity/Vol] 66 U/L 34-104 [facility] Aspartate aminotransferase [ Enzymatic activity/volume] in Serum or PlasmaOrdered By: Brad Hodges on 05-03-2023 AST [Catalytic activity/Vol] 16 U/L 13-39 [facility] Basophils Auto (Bld) [#/Vol] Ordered By: Brad Hodges on 05-03-2023 Basophils (Bld) [#/Vol] 0.0 10*3/uL 0.0-0.2 [facility] Basophils/100 WBC Auto (Bld) Ordered By: Brad Hodges on 05-03-2023 Basophils/100 WBC (Bld) 0.9 % . [facility] Bilirubin.total [Mass/volume ] in Serum or PlasmaOrdered By: Brad Hodges on 05-03-2023 Bilirubin [Mass/Vol] 0.4 mg/dL 0.3-1.0 [facility] Calcium [Mass/volume] in Ser um or PlasmaOrdered By: Brad Hodges on 05-03-2023 Calcium [Mass/Vol] 9.1 mg/dL 8.6-10.3 [facility] Carbon dioxide, total [Moles /volume] in Serum or PlasmaOrdered By: Brad Hodges on 05-03-2023 CO2 [Moles/Vol] 29.5 mmol/L 21.0-31.0 [facility] Chloride [Moles/volume] in S eliza or PlasmaOrdered By: Brad Hodges on 05-03-2023 Chloride [Moles/Vol] 107 mmol/L 98-107 [facility] Complete Blood Count Auto Di ffon 05-03-2023 Basophils (Bld) [#/Vol] 0.0 10*3/uL Normal 0.0-0.2 [facility] Comment on above: Performed By: #### C MP, ESR, CBC #### [address] Basophils/100 WBC (Bld) 0.9 % Normal . [facility] Comment on above: Performed By: #### C MP, ESR, CBC #### [facility] [address] [place] [address] Eosinophils (Bld) [#/Vol] 0.3 10*3/uL Normal 0.0-0.45 [facility] Comment on above: Performed By: #### C MP, ESR, CBC #### [address] Eosinophils/100 WBC (Bld) 6.6 % Normal . [facility] Comment on above: Performed By: #### C MP, ESR, CBC #### [facility] [address] Erythrocyte distribution width (RBC) [Ratio] 15.9 % High 12.0-14.8 [facility] Comment on above: Performed By: #### C MP, ESR, CBC #### [address] Hematocrit (Bld) [Volume fraction] 38.5 % Low 38.8-50.0 [facility] Comment on above: Performed By: #### C MP, ESR, CBC #### [address] Hemoglobin (Bld) [Mass/Vol] 12.3 g/dL Low 13.0-17.0 [facility] Comment on above: Performed By: #### C MP, ESR, CBC #### [address] Lymphocytes (Bld) [#/Vol] 1.2 10*3/uL Normal 1.00-4.8 [facility] Comment on above: Performed By: #### C MP, ESR, CBC #### [address] Lymphocytes/100 WBC (Bld) 25.4 % Normal . [facility] Comment on above: Performed By: #### C MP, ESR, CBC #### [address] MCH (RBC) [Entitic mass] 29.5 pg Normal 27.5-35.2 [facility] Comment on above: Performed By: #### C MP, ESR, CBC #### [address] MCV (RBC) [Entitic vol] 92.1 fL Normal 83.5-101 [facility] Comment on above: Performed By: #### C MP, ESR, CBC #### [address] Mean Corpuscular HGB Conc 32.0 g/dL Low 32.5-35.6 [facility] Comment on above: Performed By: #### C MP, ESR, CBC #### [address] Monocytes (Bld) [#/Vol] 0.2 10*3/uL Normal 0.0-0.8 [facility] Comment on above: Performed By: #### C MP, ESR, CBC #### [place] [address] [place] Monocytes/100 WBC (Bld) 4.3 % Normal . [facility] Comment on above: Performed By: #### C MP, ESR, CBC #### [facility] [address] Neutrophils (Bld) [#/Vol] 3.0 10*3/uL Normal 1.8-7.7 [facility] Comment on above: Performed By: #### C MP, ESR, CBC #### [facility] [address] Neutrophils/100 WBC (Bld) 62.8 % Normal . [facility] Comment on above: Performed By: #### C MP, ESR, CBC #### [facility] [address] NRBC% 0.1 /100{WBC} Normal 0-0.5 [facility] Comment on above: Performed By: #### C MP, ESR, CBC #### [facility] [address] Platelet mean volume (Bld) [Entitic vol] 8.2 fL Normal 6.6-10.1 [facility] Comment on above: Performed By: #### C MP, ESR, CBC #### [facility] [address] Platelets (Bld) [#/Vol] 249 10*3/uL Normal 150-450 [facility] Comment on above: Performed By: #### C MP, ESR, CBC #### [facility] [address] RBC (Bld) [#/Vol] 4.17 10*6/uL Normal 3.90-5.60 [facility] Comment on above: Performed By: #### C MP, ESR, CBC #### [facility] [address] WBC (Bld) [#/Vol] 4.8 10*3/uL Normal 4.1-10.5 [facility] Comment on above: Performed By: #### C MP, ESR, CBC #### [facility] [address] Comprehensive Metabolic Pane robert 05-03-2023 Albumin [Mass/Vol] 3.6 g/dL Normal 3.5-5.7 [facility] Comment on above: Performed By: #### C MP, ESR, CBC #### [facility] [address] Albumin/Globulin [Mass ratio] 1.4 {ratio} Normal [facility] Comment on above: Performed By: #### C MP, ESR, CBC #### [address] ALP [Catalytic activity/Vol] 66 U/L Normal 34-104 [facility] Comment on above: Result Comment: PERF ORMED BY: [place] [address] PATHOLOGIST TRAVELING ACCOUNTANT JENNIFER CALDERON M.D. Performed By: #### C MP, ESR, CBC #### [address] ALT [Catalytic activity/Vol] 18 U/L Normal 7-52 [facility] Comment on above: Performed By: #### C MP, ESR, CBC #### [address] Anion gap [Moles/Vol] 10.1 mmol/L Normal 6.0-15.0 [facility] Comment on above: Performed By: #### C MP, ESR, CBC #### [address] AST [Catalytic activity/Vol] 16 U/L Normal 13-39 [facility] Comment on above: Performed By: #### C MP, ESR, CBC #### [address] Bilirubin [Mass/Vol] 0.4 mg/dL Normal 0.3-1.0 [facility] Comment on above: Performed By: #### C MP, ESR, CBC #### [place] [address] [place] Calcium [Mass/Vol] 9.1 mg/dL Normal 8.6-10.3 [facility] Comment on above: Performed By: #### C MP, ESR, CBC #### [facility] [address] Chloride [Moles/Vol] 107 mmol/L Normal 98-107 [facility] Comment on above: Performed By: #### C MP, ESR, CBC #### [facility] [address] CO2 [Moles/Vol] 29.5 mmol/L Normal 21.0-31.0 [facility] Comment on above: Performed By: #### C MP, ESR, CBC #### [address] Creatinine [Mass/Vol] 1.33 mg/dL High 0.70-1.30 [facility] Comment on above: Performed By: #### C MP, ESR, CBC #### [place] [address] [place] GFR/1.73 sq M.predicted MDRD (S/P/Bld) [Vol rate/Area] mL/min/{1.73_m2} [facility] Comment on above: Performed By: #### C MP, ESR, CBC #### [address] Globulin (S) [Mass/Vol] 2.6 g/dL [facility] Comment on above: Performed By: #### C MP, ESR, CBC #### [address] Glucose [Mass/Vol] 122 mg/dL High 70-100 [facility] Comment on above: Result Comment: [place] Glucose Reference Range is dependent on time and content of last meal. Glucose of more than 200 mg/dL in a nonstressed, ambulatory subject supports the diagnosis of Diabetes Mellitus. ADA recommended reference range Performed By: #### C MP, ESR, CBC #### [facility] [address] [place] [address] [place] Potassium [Moles/Vol] 4.6 mmol/L Normal 3.5-5.1 [facility] Comment on above: Performed By: #### C MP, ESR, CBC #### [facility] [address] Protein [Mass/Vol] 6.2 g/dL Low 6.4-8.9 [facility] Comment on above: Performed By: #### C MP, ESR, CBC #### [facility] [address] Sodium [Moles/Vol] 142 mmol/L Normal 136-145 [facility] Comment on above: Performed By: #### C MP, ESR, CBC #### [facility] [address] Urea nitrogen [Mass/Vol] 22 mg/dL Normal 7-25 [facility] Comment on above: Performed By: #### C MP, ESR, CBC #### [facility] [address] Creatinine [Mass/volume] in Serum or PlasmaOrdered By: Brad Hodges on 05-03-2023 Creatinine [Mass/Vol] 1.33 mg/dL 0.70-1.30 [facility] Eosinophils Auto (Bld) [#/Vo l]Ordered By: Brad Hodges on 05-03-2023 Eosinophils (Bld) [#/Vol] 0.3 10*3/uL 0.0-0.45 [facility] Eosinophils/100 WBC Auto (Bl d)Ordered By: Brad Hodges on 05-03-2023 Eosinophils/100 WBC (Bld) 6.6 % . [facility] Erythrocyte Sedimentation Ra alexia 05-03-2023 ESR (Bld) [Velocity] 35 mm/h High 0-19 [facility] Comment on above: Result Comment: PERF ORMED BY: [place] [address] PATHOLOGIST TRAVELING ACCOUNTANT JENNIFER CALDERON M.D. Performed By: #### C MP, ESR, CBC #### [facility] [address] [place] [address] Erythrocyte distribution wid th Auto (RBC) [Ratio]Ordered By: Brad Hodges on 05-03-2023 Erythrocyte distribution width (RBC) [Ratio] 15.9 % 12.0-14.8 [facility] Erythrocyte sedimentation ra te by Photometric methodOrdered By: Brad Hodges on 05-03-2023 ESR Photometric method (Bld) [Velocity] 35 mm/hr 0-19 [facility] Globulin Calc (S) [Mass/Vol] Ordered By: Brad Hodges on 05-03-2023 Globulin (S) [Mass/Vol] 2.6 g/dL [facility] Glucose [Mass/volume] in Ser um or PlasmaOrdered By: Brad Hodges on 05-03-2023 Glucose [Mass/Vol] 122 mg/dL 70-100 [facility] Comment on above: ADA recommended refe rence rangeRandom Glucose Reference Range is dependent on time and content of last meal. Glucose of more than 200 mg/dL in a nonstressed, ambulatory subject supports the diagnosis of Diabetes Mellitus. Hematocrit Auto (Bld) [Volum e fraction]Ordered By: Brad Hodges on 05-03-2023 Hematocrit (Bld) [Volume fraction] 38.5 % 38.8-50.0 [facility] Hemoglobin [Mass/volume] in BloodOrdered By: Brad Hodges on 05-03-2023 Hemoglobin (Bld) [Mass/Vol] 12.3 g/dL 13.0-17.0 [facility] Leukocytes [#/volume] correc christen for nucleated erythrocytes in Blood by Automated counOrdered By: Brad Hodges on 05-03-2023 WBC corrected for nucl RBC Auto (Bld) [#/Vol] 4.8 10*3/uL 4.1-10.5 [facility] Lymphocytes Auto (Bld) [#/Vo l]Ordered By: Brad Hodges on 05-03-2023 Lymphocytes (Bld) [#/Vol] 1.2 10*3/uL 1.00-4.8 [facility] Lymphocytes/100 WBC Auto (Bl d)Ordered By: Brad Hodges on 05-03-2023 Lymphocytes/100 WBC (Bld) 25.4 % . [facility] MCH Auto (RBC) [Entitic mass ]Ordered By: Brad Hodges on 05-03-2023 MCH (RBC) [Entitic mass] 29.5 pg 27.5-35.2 [facility] MCHC Auto (RBC) [Mass/Vol]Or dered By: Brad Hodges on 05-03-2023 MCHC (RBC) [Mass/Vol] 32.0 g/dL 32.5-35.6 [facility] MCV Auto (RBC) [Entitic vol] Ordered By: Brad Hodges on 05-03-2023 MCV (RBC) [Entitic vol] 92.1 fL 83.5-101 [facility] Monocytes Auto (Bld) [#/Vol] Ordered By: Brad Hodges on 05-03-2023 Monocytes (Bld) [#/Vol] 0.2 10*3/uL 0.0-0.8 [facility] Monocytes/100 WBC Auto (Bld) Ordered By: Brad Hodges on 05-03-2023 Monocytes/100 WBC (Bld) 4.3 % . [facility] Neutrophils Auto (Bld) [#/Vo l]Ordered By: Brad Hodges on 05-03-2023 Neutrophils (Bld) [#/Vol] 3.0 10*3/uL 1.8-7.7 [facility] Neutrophils/100 WBC Auto (Bl d)Ordered By: Brad Hodges on 05-03-2023 Neutrophils/100 WBC (Bld) 62.8 % . [facility] No Panel InformationOrdered By: Brad Hodges on 05-03-2023 Estimated GFR (CKD-EPI) > 60.0 mL/Min [facility] Creatinine Clearance (Chem N/A [facility] Nucleated erythrocytes [Pres ence] in Blood by Automated countOrdered By: Brad Hodges on 05-03-2023 Nucleated RBC Auto Ql (Bld) 0.1 /100{WBC} 0-0.5 [facility] Platelet mean volume Auto (B ld) [Entitic vol]Ordered By: Brad Hodges on 05-03-2023 Platelet mean volume (Bld) [Entitic vol] 8.2 fL 6.6-10.1 [facility] Platelets Auto (Bld) [#/Vol] Ordered By: Brad Hodges on 05-03-2023 Platelets (Bld) [#/Vol] 249 10*3/uL 150-450 [facility] Potassium [Moles/volume] in Serum or PlasmaOrdered By: Brad Hodges on 05-03-2023 Potassium [Moles/Vol] 4.6 mmol/L 3.5-5.1 [facility] Protein [Mass/volume] in Ser um or PlasmaOrdered By: Brad Hodges on 05-03-2023 Protein [Mass/Vol] 6.2 g/dL 6.4-8.9 [facility] RBC Auto (Bld) [#/Vol]Ordere d By: Brad Hodges on 05-03-2023 RBC (Bld) [#/Vol] 4.17 10*6/uL 3.90-5.60 [facility] Serum or plasma albumin/glob ulin mass ratioOrdered By: Brad Hodges on 05-03-2023 Albumin/Globulin [Mass ratio] 1.4 {ratio} [facility] Serum or plasma anion gap de terminationOrdered By: Brad Hodges on 05-03-2023 Anion gap [Moles/Vol] 10.1 mmol/L 6.0-15.0 [facility] Sodium [Moles/volume] in Ser um or PlasmaOrdered By: Brad Hodges on 05-03-2023 Sodium [Moles/Vol] 142 mmol/L 136-145 [facility] Urea nitrogen [Mass/volume] in Serum or PlasmaOrdered By: Brad Hodges on 05-03-2023 Urea nitrogen [Mass/Vol] 22 mg/dL 7-25 [facility] WBC Auto (Bld) [#/Vol]Ordere d By: Brad Hodges on 05-03-2023 WBC (Bld) [#/Vol] 4.8 10*3/uL 4.1-10.5 [facility] CNOVon 02-05-2023 CNOV Office Visit (SYNCMN ) ELENA FELIX ([id number]) 1960 M Date Time Provider Department 02/05/23 12:00 PM AUSTIN CLARK During your visit today, we recorded the following information about you: Weight 129.7 kg Anna Duvall, MAHSA 02/05/2023 1:39 PM Signed [facility] [place] Elena and Kika Flannery Department of Cardiovascular Medicine SECTION OF CARDIAC PACING and ELECTROPHYSIOLOGY OUTPATIENT VISIT DATE February 05, 2023 PRIMARY CARE PHYSICIAN: Silvana Lundberg ([place]) [facility] [place] [address] REFERRING PHYSICIAN: Tricia Howard [address] [facility] [address] NURSING INTAKE HISTORY: Mr. Felix is a [...] MEDICAL HISTORY Diagnosis Date - Ankylosing spondylitis ([facility]) Dr Hodges - Ankylosing spondylitis ([facility]) - Arthritis - Back pain - Cardiomyopathy ([facility]) Nonischemic Congestive - Cerebrovascular small vessel disease 08/24/2016 On ASA - DVT (deep venous thrombosis) ([facility]) - Es (more content not included)... Normal [facility] ECG COMPLETEon 02-05-2023 ECG COMPLETE Ventricular Rate : 7 3 BPM Atrial Rate : 73 BPM P-R Interval : 150 ms QRS Duration : 94 ms Q-T Interval : 360 ms QTC Calculation(Bazett) : 396 ms Calculated P [place] : 42 degrees Calculated R [place] : 42 degrees Calculated T [place] : 52 degrees NORMAL SINUS RHYTHM NORMAL ECG Confirmed by ASHLI OCHOA MD ([id number]) on 02/12/2023 11:11:58 AM NAME : ELENA FELIX PID : [id number] : 1960 Gender : Male Race : ORD : [id number] Procedure Date : Feb 05 2023 10:45:05 Edit Date : Feb 12 2023 11:12:00 Diagnosis: NORMAL SINUS RHYTHM NORMAL ECG Confirmed by ASHLI OCHOA MD ([id number]) on 02/12/2023 11:11:58 AM Test Reason : Location : 314 : J14 J1-4 Overread By : ASHLI OCHOA MD Edited By : ASHLI OCHOA MD Referred By : AUSTIN CLARK Acquired by : RADHA PULLIAM Normal [facility] Hep C Ab wRfx to Qnt PCRon 0 12-11-2022 Hepatitis C Virus Antibody Non-Reactive Normal Non Reactive [facility] Comment on above: Performed By: #### Q UANT TB, HBCAB, HBSAG, HBSAB, HCV RX PCR #### [facility] , Interpretation Hepatitis C Normal . [facility] Comment on above: Result Comment: Not infected with HCV unless early or acute infection is suspected (which may be delayed in an immunocompromised individual), or other evidence exists to indicate HCV infection. Performed By: #### Q UANT TB, HBCAB, HBSAG, HBSAB, HCV RX PCR #### [facility] , Hepatitis B Core Antibodyon 12-11-2022 Hepatitis B Core Antibody Negative Normal Negative [facility] Comment on above: Result Comment: Perf ormed at: [address] [id number] Vision Impaired Teacher: Cosme Kang PhD, Phone: [phone] Performed By: #### Q UANT TB, HBCAB, HBSAG, HBSAB, HCV RX PCR #### [facility] , Hepatitis B Surface Antibody on 12-11-2022 Hepatitis B Surface Antibody Non-Reactive Normal . [facility] Comment on above: Result Comment: Non Reactive: Inconsistent with immunity, less than 10 mIU/mL Reactive: Consistent with immunity, greater than 9.9 mIU/mL Performed By: #### Q UANT TB, HBCAB, HBSAG, HBSAB, HCV RX PCR #### [facility] , Hepatitis B Surface Antigeno n 12-11-2022 HBsAg Screen Negative Normal Negative [facility] Comment on above: Result Comment: PERF ORMED BY: [facility] [address] [place] [address] PATHOLOGIST TRAVELING ACCOUNTANT JENNIFER CALDERON M.D. Performed By: #### Q UANT TB, HBCAB, HBSAG, HBSAB, HCV RX PCR #### [facility] , QuantiFERON TB Goldon 2022 QFTB Criteria Normal . [facility] Comment on above: Result Comment: Mj tiFERON-TB [...] Quant TB Ag Value 0.05 Normal . [facility] Comment on above: Performed By: #### Q UANT TB, HBCAB, HBSAG, HBSAB, HCV RX PCR #### [facility] , Quant TB Gold Plus Negative Normal Negative [facility] Comment on above: Result Comment: No r [...] interferon gamma. Chemiluminescence immunoassay methodology Performed at: [facility] [id number] Vision Impaired Teacher: Cosme Kang PhD, Phone: [phone] PERFORMED BY: [address] [address] PATHOLOGIST TRAVELING ACCOUNTANT JENNIFER CALDERON M.D. Performed By: #### Q UANT TB, HBCAB, HBSAG, HBSAB, HCV RX PCR #### [facility] , Quant TB2 Ag Value 0.05 Normal . [facility] Comment on above: Performed By: #### Q UANT TB, HBCAB, HBSAG, HBSAB, HCV RX PCR #### [facility] , Quantiferon Nil Value 0.06 Normal . [facility] Comment on above: Performed By: #### Q UANT TB, HBCAB, HBSAG, HBSAB, HCV RX PCR #### [facility] , Quantiferon TB Mitogen >10.00 Normal . [facility] Comment on above: Performed By: #### Q UANT TB, HBCAB, HBSAG, HBSAB, HCV RX PCR #### [facility] , CNOVon 11-17-2022 CNOV Office Visit (CARCMN ) ELENA FELIX ([id number]) 1960 M Date Time Provider Department 11/17/22 9:15 AM TRICIA HOWARD CARCMN During your visit today, we recorded the following information about you: Pulse Blood pressure Weight 62/minute 107/74 132 kg Tricia Howard MD 11/30/2022 5:11 PM Signed [facility] [place] Shanelle Flannery Department of Cardiovascular Medicine SECTION OF CLINICAL CARDIOLOGY OUTPATIENT VISIT DATE November 17, 2022 OUTPATIENT VISIT TYPE ESTABLISHED PRIMARY CARE PHYSICIAN: Silvana Lundberg (Shante) [address] [place] [phone] REFERRING PHYSICIAN: No referring provider defined for [...] Ankylosing spondylitis (HCC) Arthritis Back pain Cardiomyopathy ([facility]) Nonischemic Congestive Cerebrovascular small vessel disease 08/24/2016 On ASA DVT (deep venous thrombosis) ([facility]) Esophageal reflux Former smoker Kidney stones Major depressive disorder with single episode, in remission ([facility]) 08/24/2016 Morbid obesity with BMI of 40.0-44.9, adult ([facility]) Neuropathy Obstructive sleep apnea syndrome, severe On [...] mg capsule (more content not included)... Normal [facility] CNOVSPon 11-15-2022 [facility] Visit (SP) Office (H EMASA) ELENA FELIX ([id number]) 1960 M Date Time Provider Department 11/15/22 11:30 AM MERLY MARTI During your visit today, we recorded the following information about you: Temperature Pulse Respiration Blood pressure 97.9 degrees 71/minute 16/minute 130/73 Weight Height 134.4 kg 1.88 m Merly Marti MD 11/15/2022 11:35 AM Signed PATIENT NAME: Elena Felix CLINIC NO.: [id number] ATTENDING PHYSICIAN: Merly Marti MD DATE OF [...] PAST MEDICAL HISTORY Diagnosis Date Ankylosing spondylitis ([facility]) Dr Hodges Ankylosing spondylitis ([facility]) Arthritis Back pain Cardiomyopathy ([facility]) Nonischemic Congestive Cerebrovascular small vessel disease 08/24/2016 On ASA DVT (deep venous thrombosis) ([facility]) Esophageal reflux Former smoker Kidney stones Major depressive disorder with single episode, in remission ([facility]) 08/24/2016 Morbid obesity with BMI of 40.0-44.9, adult ([facility]) Neuropathy Obstructive sleep apnea syndrome, severe On [...] 9.3 Calci (more content not included)... Normal [facility] Aerobic Cultureon 10-31-2022 Aerobic Culture ORGANISM: [...] RESISTANT TO ALL B-LACTAM DRUGS. PERFORMED BY: [place] [address] PATHOLOGIST TRAVELING ACCOUNTANT JENNIFER CALDERON M.D. [facility] Comment on above: Performed By: #### G S, AERC #### [address] Anaerobic cultureOrdered By: Silvana Lundberg on 10-31-2022 Bacteria identified Anaer cx Nom (Unsp spec) No Anaerobes Isolated 3 Days [facility] Bacteria identified Aer cx N om (Unsp spec)Ordered By: Silvana Lundberg on 10-31-2022 Aerobic Culture Staphylococcus aureus [facility] Gram Stainon 10-31-2022 Microscopic observation Gram stain Nom (Unsp spec) Gram Stain Result No Bacteria Seen PERFORMED BY: [facility] [address] [facility] [place] [address] PATHOLOGIST TRAVELING ACCOUNTANT JENNIFER CALDERON M.D. Normal [facility] Comment on above: Performed By: #### G S, AERC #### [facility] [address] Gram stain for investigation of transfusion reactionOrdered By: Silvana Lundberg on 10-31-2022 Microscopic observation Gram stain Nom (Unsp spec) [facility] CRP SerPl-mCncon 10-18-2022 CRP [Mass/Vol] mg/L Normal <0.9 [facility] Comment on above: Order Comment: Speci men Type: BLOOD SPECIMEN Ordering Facility: [facility] Address: [address] [address] Performed By: #### 2 4323-8, 2063-07, 2275-07, 6-3 #### [facility] CLIA [id number] [address] [place] [address] STATES OF PER ESR Westergren method (Bld) [Velocity]on 10-18-2022 ESR (Bld) [Velocity] 31 mm/h High 0-15 [facility] Comment on above: Order Comment: Speci men Type: BLOOD SPECIMEN Ordering Facility: [facility] Address: [address] Performed By: #### 2 4323-8, 2063-07, 4, 6-3 #### [facility] CLIA [id number] [address] [place] [address] [place] CNPNimo 10-17-2022 C[facility]N [facility] ELENA FELIX ([id number]) 1960 M Date Time Provider Department 10/17/22 ANNA NORTH During your visit today, we recorded the following information about you: Shelia Woods RN 10/17/2022 9:10 AM Signed Called patient to discuss results of BMP with kidney function and potassium levels still elevated. Left generic message on non-identifying voicemail to return call or read Suite101 message sent to notify him. 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 LISINOPRIL 09/16/2021 16 - Unknown LOSARTAN 05/30/2022 16 - Unknown Date Reviewed: 10/06/2022 Reviewed by: Anna North APRN.TELEPHONE WORKER - Fully Assessed Reason for Visit: Results [...] Status:Closed by SHELIA WOODS on 10/23/22 Normal [facility] Basic metabolic 2000 panelon 10-16-2022 Anion gap [Moles/Vol] 11 mmol/L Normal 9-18 [facility] Comment on above: Order Comment: Speci men Type: BLOOD SPECIMEN Ordering Facility: [facility] Address: [address] [place] [address] Performed By: #### 2 4323-8, 2063-07, 2275-4, 3016-3 #### [facility] CLIA [id number] [address] [place] [address] [place] Calcium [Mass/Vol] 9.8 mg/dL Normal 8.5-10.2 [facility] Comment on above: Order Comment: Speci men Type: BLOOD SPECIMEN Ordering Facility: [facility] Address: [address] [place], [place] [phone] Performed By: #### 2 4323-8, 2063-07, 2275-4, 3016-3 #### [facility] CLIA [id number] [address] [place] [address] [place] Chloride [Moles/Vol] 104 mmol/L Normal 97-105 [facility] Comment on above: Order Comment: Speci men Type: BLOOD SPECIMEN Ordering Facility: [facility] Address: [address] [place], [place] [phone] Performed By: #### 2 4323-8, 4, 2275-4, 6-3 #### [facility] CLIA [id number] [address] [place] [address] [place] CO2 [Moles/Vol] 24 mmol/L Normal 22-30 [facility] Comment on above: Order Comment: Speci men Type: BLOOD SPECIMEN Ordering Facility: [facility] Address: [address] [place] [address] Performed By: #### 2 4323-8, 2063-4, 2275-4, 6-3 #### [facility] CLIA [id number] [address] [place] [address] [place] Creatinine [Mass/Vol] 1.43 mg/dL High 0.73-1.22 [facility] Comment on above: Order Comment: Speci men Type: BLOOD SPECIMEN Ordering Facility: [facility] Address: [address] [place] [address] Performed By: #### 2 4323-8, 2063-07, 4, 6-3 #### [facility] CLIA [id number] [address] [place] [address] [place] ESTIMATED GLOMERULAR FILTRATION RATE 55 mL/min/1.73m??? Low >=60 [facility] Comment on above: Order Comment: Speci men Type: BLOOD SPECIMEN Ordering Facility: [facility] Address: [address] [place] [address] Result Comment: Aneta mated Glomerular Filtration Rate [...] #### 2 4323-8, 2063-4, 2275-4, 6-3 #### [facility] CLIA [id number] [address] [place] [address] [place] Glucose [Mass/Vol] 93 mg/dL Normal 74-99 [facility] Comment on above: Order Comment: Speci men Type: BLOOD SPECIMEN Ordering Facility: [facility] Address: [address] [place], [place] [address] Result Comment: The [place] [employer] Association (ADA) provides guidance for cutoff [...] Standards of Medical Care in Diabetes 2016, [place] [employer]. Diabetes Care. 2016.39(Suppl 1). Performed By: #### 2 4323-8, 2063-07, 2275-4, 3016-3 #### [facility] CLIA [id number] [address] [place] [address] [place] Potassium [Moles/Vol] 5.3 mmol/L High 3.7-5.1 [facility] Comment on above: Order Comment: Speci men Type: BLOOD SPECIMEN Ordering Facility: [facility] Address: [address] [place] [phone] Performed By: #### 2 4323-8, 2063-07, 2275-4, 3016-3 #### [facility] CLIA [id number] [address] [place] [address] [place] Sodium [Moles/Vol] 139 mmol/L Normal 136-144 [facility] Comment on above: Order Comment: Speci men Type: BLOOD SPECIMEN Ordering Facility: [facility] Address: [address] [place], [place] [phone] Performed By: #### 2 4323-8, 2063-07, 2275-4, 6-3 #### [facility] CLIA [id number] [address] [place] [address] [place] Urea nitrogen [Mass/Vol] 18 mg/dL Normal 9-24 [facility] Comment on above: Order Comment: Speci men Type: BLOOD SPECIMEN Ordering Facility: [facility] Address: [address] [place], [place] [phone] Performed By: #### 2 4323-8, 2063-4, 2275-4, 6-3 #### [facility] CLIA [id number] [address] [place] [address] [place] EMG(NEURO/NI)on 10-16-2022 [facility] CNPNon 10-12-2022 CNPN Telephone ([facility]) ELENA FELIX ([id number]) 1960 M Date Time Provider Department 10/12/22 ANNA NORTH During your visit today, we recorded the following information about you: Shelia Woods RN 10/12/2022 1:13 PM Signed Called and left a generic message on non-identifying [employer] for return call if he has any questions about the Suite101 message that Anna sent. 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 LISINOPRIL 09/16/2021 16 - Unknown LOSARTAN 05/30/2022 16 - Unknown Date Reviewed: 10/06/2022 Reviewed by: Anna North APRN.TELEPHONE WORKER - Fully Assessed Reason for Visit: Results [...] Status:Closed by SHELIA WOODS on 10/23/22 Normal [facility] A-Toc[facility]rol Vit [facility] 10-06-2022 Alpha tocopherol [Mass/Vol] 6.6 mg/L Normal 6.0-23.0 [facility] Comment on above: Order Comment: Speci men Type: BLOOD SPECIMEN Ordering Facility: [facility] Address: [address] [place], [place] [phone] Performed By: #### 2 284-8, 2132-9 #### [facility] CLIA [id number] [address] [place] [address] [place] [address] [place] Alpha tocopherol [Mass/Vol]o n 10-06-2022 Beta+gamma tocopherol [Mass/Vol] 1.0 mg/L Normal 0.3-3.2 [facility] Comment on above: Order Comment: Speci men Type: BLOOD SPECIMEN Ordering Facility: [facility] Address: [address] [place] [address] Result Comment: This test was developed and its performance characteristics determined by [facility] [place] (RT[facility]). It has not been cleared or approved by the FDA. [facility] is regulated under CLIA as qualified to perform high-complexity testing. This test is used for clinical purposes. It should not be regarded as investigational or for research. Performed By: #### 2 284-8, 2132-9 #### [facility] CLIA [id number] [address] [facility] [id number] [place] [address] STATES OF PER CBC panel Auto (Bld)on 10-06 Erythrocyte distribution width (RBC) [Ratio] 16.0 % High 11.5 - 15.0 % [facility] Hematocrit (Bld) [Volume fraction] 40.1 % 39.0 - 51.0 % [facility] Hemoglobin (Bld) [Mass/Vol] 12.3 g/dL Low 13.0 - 17.0 g/dL [facility] MCH (RBC) [Entitic mass] 31.6 pg 26.0 - 34.0 pg [facility] MCHC (RBC) [Mass/Vol] 30.7 g/dL 30.5 - 36.0 g/dL [facility] MCV (RBC) [Entitic vol] 103.1 fL High 80.0 - 100.0 fL [facility] Nucleated RBC (Bld) [#/Vol] <0.01 k/uL [facility] Platelet mean volume (Bld) [Entitic vol] 10.2 fL 9.0 - 12.7 fL [facility] Platelets (Bld) [#/Vol] 286 10*3/uL 150 - 400 k/uL [facility] RBC (Bld) [#/Vol] 3.89 10*6/uL Low 4.20 - 6.00 m/uL [facility] WBC (Bld) [#/Vol] 7.15 10*3/uL 3.70 - 11.00 k/uL [facility] Erythrocyte distribution width (RBC) [Ratio] 16.0 % High 11.5-15.0 [facility] Comment on above: Order Comment: Speci men Type: BLOOD SPECIMEN Ordering Facility: [facility] Address: [address] [place], [place] [address] Performed By: #### 2 284-8, 2131-12 #### [facility] CLIA [id number] [address] [place] [address] [place] Hematocrit (Bld) [Volume fraction] 40.1 % Normal 39.0-51.0 [facility] Comment on above: Order Comment: Speci men Type: BLOOD SPECIMEN Ordering Facility: [facility] Address: [address] [place] [address] Performed By: #### 2 284-8, 2131-12 #### [facility] CLIA [id number] [address] [place] [address] [place] Hemoglobin (Bld) [Mass/Vol] 12.3 g/dL Low 13.0-17.0 [facility] Comment on above: Order Comment: Speci men Type: BLOOD SPECIMEN Ordering Facility: [facility] Address: [address] [place], [place] [address] Performed By: #### 2 284-8, 2131-12 #### [facility] CLIA [id number] [address] [place] [address] [place] MCH (RBC) [Entitic mass] 31.6 pg Normal 26.0-34.0 [facility] Comment on above: Order Comment: Speci men Type: BLOOD SPECIMEN Ordering Facility: [facility] Address: [address] [place], [place] [address] Performed By: #### 2 284-8, 2131-12 #### [facility] CLIA [id number] [address] [id number] [address] [place] MCHC (RBC) [Mass/Vol] 30.7 g/dL Normal 30.5-36.0 [facility] Comment on above: Order Comment: Speci men Type: BLOOD SPECIMEN Ordering Facility: [facility] Address: [address] [place] [phone] Performed By: #### 2 284-8, 2131-12 #### [facility] CLIA [id number] [address] [place] [address] [place] MCV (RBC) [Entitic vol] 103.1 fL High 80.0-100.0 [facility] Comment on above: Order Comment: Speci men Type: BLOOD SPECIMEN Ordering Facility: [facility] Address: [address] [place] [address] Performed By: #### 2 284-8, 2131-12 #### [facility] CLIA [id number] [address] [place] [address] [place] Nucleated RBC (Bld) [#/Vol] 10*3/uL Normal <0.01 [facility] Comment on above: Order Comment: Speci men Type: BLOOD SPECIMEN Ordering Facility: [facility] Address: [address] [place] [phone] Performed By: #### 2 284-8, 2131-12 #### [facility] CLIA [id number] [address] [place] [address] [place] Platelet mean volume (Bld) [Entitic vol] 10.2 fL Normal 9.0-12.7 [facility] Comment on above: Order Comment: Speci men Type: BLOOD SPECIMEN Ordering Facility: [facility] Address: [address] [place] [phone] Performed By: #### 2 284-8, 2131-12 #### [facility] CLIA [id number] [address] [place] [address] [place] Platelets (Bld) [#/Vol] 286 10*3/uL Normal 150-400 [facility] Comment on above: Order Comment: Speci men Type: BLOOD SPECIMEN Ordering Facility: [facility] Address: [address] [phone] Performed By: #### 2 284-8, 2131-12 #### [facility] CLIA [id number] [address] [place] [address] [place] RBC (Bld) [#/Vol] 3.89 10*6/uL Low 4.20-6.00 [facility] Comment on above: Order Comment: Speci men Type: BLOOD SPECIMEN Ordering Facility: [facility] Address: [address] [address] Performed By: #### 2 284-8, 2131-12 #### [facility] CLIA [id number] [address] [place] [address] [place] WBC (Bld) [#/Vol] 7.15 10*3/uL Normal 3.70-11.00 [facility] Comment on above: Order Comment: Speci men Type: BLOOD SPECIMEN Ordering Facility: [facility] Address: [address] [address] Performed By: #### 2 284-8, 2131-12 #### [facility] CLIA [id number] [address] [place] [address] [place] CERULOPLASMIN Talat 10-07-19 23 Ceruloplasmin [Mass/Vol] 30 mg/dL 15 - 30 mg/dL [facility] CNOVon 10-06-2022 CNOV Office Visit (NEADMN ) ELENA FELIX ([id number]) 1960 [place] Date Time Provider Department 10/06/22 9:00 AM ANNA NORTH During your visit today, we recorded the following information about you: Pulse Blood pressure Weight Height 83/minute 106/59 131.5 kg 1.88 m Anna North APRN.TELEPHONE WORKER 10/06/2022 10:14 AM Signed [facility] New Patient Evaluation Chief Complaint/Issues: Elena Felix is a 62 year old right-handed male seen in the [facility] for: New patient Orthostatic [...] had multiple back and hip surgeries. His accredited legal secretary is locally in [place]. He had surgery in 2019, had a [...] and heart issues. He sees cardiology in [facility]. He had a heart cath and showed [...] PT in the past and sees his accredited legal secretary for the neck. [facility] PAST MEDICAL HISTORY Diagnosis Date Ankylosing spondylitis ([facility]) Dr Hodges Ankylosing spondylitis ([facility]) Arthritis Back pain Cardiomyopathy ([facility]) Nonischemic Congestive Cerebrovascular small vessel disease 08/24/2016 On ASA DVT (deep venous thrombosis) ([facility]) Esophageal reflux Former smoker Kidney stones Major depressive disorder with single episode, in remission ([facility]) 08/24/2016 Morbid obesity with BMI of 40.0-44.9, adult ([facility]) Neuropathy Obstructive sleep apnea syndrome, severe On [...] 10-15 seconds (more content not included)... Normal [facility] COPPER BLOODon 10-06-2022 Copper [Mass/Vol] 127 ug/dL Normal 70-140 [facility] Comment on above: Order Comment: Jimena wallace Type: BLOOD SPECIMEN Ordering Facility: [facility] Address: [address] [place] [phone] Result Comment: This test was developed and its performance characteristics determined by [facility] [place] (RT-PLMI). It has not been cleared or approved by the FDA. [facility] is regulated under CLIA as qualified to perform high-complexity testing. This test is used for clinical purposes. It should not be regarded as investigational or for research. Performed By: #### 2 284-8, 2132-9 #### [facility] CLIA [id number] [address] [place] [address] OF PER Ceruloplasmin SerPl-mCncon 0 10-06-2022 Ceruloplasmin [Mass/Vol] 30 mg/dL Normal 15-30 [facility] Comment on above: Order Comment: Jimena wallace Type: BLOOD SPECIMEN Ordering Facility: [facility] Address: [address] [place] [phone] Performed By: #### 2 4323-8, 2064-4, 2276-4, 3016-3 #### [facility] CLIA [id number] [address] [place] [address] [place] Comprehensive metabolic 2000 panelon 10-06-2022 Albumin [Mass/Vol] 3.6 g/dL Low 3.9 - 4.9 g/dL [facility] ALP [Catalytic activity/Vol] 72 U/L 38 - 113 U/L [facility] ALT [Catalytic activity/Vol] 17 U/L 10 - 54 U/L [facility] Anion gap [Moles/Vol] 9 mmol/L 9 - 18 mmol/L [facility] AST [Catalytic activity/Vol] 21 U/L 14 - 40 U/L [facility] Bilirubin [Mass/Vol] 0.2 mg/dL 0.2 - 1 .3 mg/dL [facility] Calcium [Mass/Vol] 9.5 mg/dL 8.5 - 10. 2 mg/dL [facility] Chloride [Moles/Vol] 108 mmol/L High 97 - 10 5 mmol/L [facility] CO2 [Moles/Vol] 25 mmol/L 22 - 30 mmol/L [facility] Creatinine [Mass/Vol] 1.43 mg/dL High 0.73 - 1.22 mg/dL [facility] Estimated Glomerular Filtration Rate 55 mL/min/1.73m Low >=60 mL/min/1.7 3m [facility] Glucose [Mass/Vol] 100 mg/dL High 74 - 99 mg/dL [facility] Potassium [Moles/Vol] 5.4 mmol/L High 3.7 - 5.1 mmol/L [facility] Protein [Mass/Vol] 6.7 g/dL 6.3 - 8.0 g/dL [facility] Sodium [Moles/Vol] 142 mmol/L 136 - 144 mmol/L [facility] Urea nitrogen [Mass/Vol] 24 mg/dL 9 - 24 mg/dL [facility] Albumin [Mass/Vol] 3.6 g/dL Low 3.9-4.9 [facility] Comment on above: Order Comment: Speci men Type: BLOOD SPECIMEN Ordering Facility: [facility] Address: [address] [place] [address] Performed By: #### 2 4323-8, 2063-4, 2275-4, 3016-3 #### [facility] CLIA [id number] [address] [place] [address] ALP [Catalytic activity/Vol] 72 U/L Normal 38-113 [facility] Comment on above: Order Comment: Speci men Type: BLOOD SPECIMEN Ordering Facility: [facility] Address: [address] [place] [address] Performed By: #### 2 4323-8, 2063-4, 6-4, 3016-3 #### [facility] CLIA [id number] [address] [id number] [address] [place] ALT [Catalytic activity/Vol] 17 U/L Normal 10-54 [facility] Comment on above: Order Comment: Speci men Type: BLOOD SPECIMEN Ordering Facility: [facility] Address: [address] [place], [place] [address] Performed By: #### 2 4323-8, 2063-4, 6-4, 3016-3 #### [facility] CLIA [id number] [address] [place] [address] [place] Anion gap [Moles/Vol] 9 mmol/L Normal 9-18 [facility] Comment on above: Order Comment: Speci men Type: BLOOD SPECIMEN Ordering Facility: [facility] Address: [address] [place] [address] Performed By: #### 2 4323-8, 2063-4, 2275-4, 3016-3 #### [facility] CLIA [id number] [address] [place] [address] STATES OF PER AST [Catalytic activity/Vol] 21 U/L Normal 14-40 [facility] Comment on above: Order Comment: Speci men Type: BLOOD SPECIMEN Ordering Facility: [facility] Address: [address] [place] [address] Performed By: #### 2 4323-8, 2063-4, 2275-4, 3016-3 #### [facility] CLIA [id number] [address] [place] [address] [place] Bilirubin [Mass/Vol] 0.2 mg/dL Normal 0.2-1.3 [facility] Comment on above: Order Comment: Speci men Type: BLOOD SPECIMEN Ordering Facility: [facility] Address: [address] [place], [place] [address] Performed By: #### 2 4323-8, 2063-4, 2275-4, 3016-3 #### [facility] CLIA [id number] [address] [place] [address] [place] Calcium [Mass/Vol] 9.5 mg/dL Normal 8.5-10.2 [facility] Comment on above: Order Comment: Speci men Type: BLOOD SPECIMEN Ordering Facility: [facility] Address: [address] [place] [address] Performed By: #### 2 4323-8, 4-4, 6-4, 3016-3 #### [facility] CLIA [id number] [address] [place] [address] [place] Chloride [Moles/Vol] 108 mmol/L High 97-105 [facility] Comment on above: Order Comment: Speci men Type: BLOOD SPECIMEN Ordering Facility: [facility] Address: [address] [place] [address] Performed By: #### 2 4323-8, 2063-4, 6-4, 3016-3 #### [facility] CLIA [id number] [address] [place] [address] [place] CO2 [Moles/Vol] 25 mmol/L Normal 22-30 [facility] Comment on above: Order Comment: Speci men Type: BLOOD SPECIMEN Ordering Facility: [facility] Address: [address] [place] [address] Performed By: #### 2 4323-8, 2063-4, 6-4, 3016-3 #### [facility] CLIA [id number] [address] [place] [address] [place] Creatinine [Mass/Vol] 1.43 mg/dL High 0.73-1.22 [facility] Comment on above: Order Comment: Speci men Type: BLOOD SPECIMEN Ordering Facility: [facility] Address: [address] [place] [address] Performed By: #### 2 4323-8, 2063-4, 6-4, 3016-3 #### [facility] CLIA [id number] [address] [id number] [address] [place] ESTIMATED GLOMERULAR FILTRATION RATE 55 mL/min/1.73m??? Low >=60 [facility] Comment on above: Order Comment: Jimena wallace Type: BLOOD SPECIMEN Ordering Facility: [facility] Address: [address] [place], [place] [address] Result Comment: Aneta mated Glomerular Filtration Rate [...] #### 2 4323-8, 2063-, 2275-4, 6-3 #### [facility] CLIA [id number] [address] [id number] [place] Glucose [Mass/Vol] 100 mg/dL High 74-99 [facility] Comment on above: Order Comment: Jimena wallace Type: BLOOD SPECIMEN Ordering Facility: [facility] Address: [address] [place], [place] [address] Result Comment: The [place] Diabetes Association (ADA) provides guidance for cutoff [...] Standards of Medical Care in Diabetes 2016, [place] Diabetes Association. Diabetes Care. 2016.39(Suppl 1). Performed By: #### 2 4323-8, 2063-4, 2275-4, 6-3 #### [facility] CLIA [id number] [address] [id number] [place] Potassium [Moles/Vol] 5.4 mmol/L High 3.7-5.1 [facility] Comment on above: Order Comment: Speci men Type: BLOOD SPECIMEN Ordering Facility: [facility] Address: [address] [place] [address] Performed By: #### 2 4323-8, 4-4, 6-4, 3016-3 #### [facility] CLIA [id number] [address] [place] [address] [place] Protein [Mass/Vol] 6.7 g/dL Normal 6.3-8.0 [facility] Comment on above: Order Comment: Speci men Type: BLOOD SPECIMEN Ordering Facility: [facility] Address: [address] [place] [address] Performed By: #### 2 4323-8, 2063-4, 2275-4, 6-3 #### [facility] CLIA [id number] [address] [place] [address] [place] Sodium [Moles/Vol] 142 mmol/L Normal 136-144 [facility] Comment on above: Order Comment: Speci men Type: BLOOD SPECIMEN Ordering Facility: [facility] Address: [address] [place] [address] Performed By: #### 2 4323-8, 2063-4, 2275-4, 6-3 #### [facility] CLIA [id number] [address] [place] [address] [place] Urea nitrogen [Mass/Vol] 24 mg/dL Normal 9-24 [facility] Comment on above: Order Comment: Speci men Type: BLOOD SPECIMEN Ordering Facility: [facility] Address: [address] [place] [address] Performed By: #### 2 4323-8, 2063-4, 6-4, 3016-3 #### [facility] CLIA [id number] [address] [place], [place] [address] [place] FERRITIN BLDon 10-06-2022 Ferritin [Mass/Vol] 143.0 ng/mL 30.3 - 565.7 ng/mL [facility] FOLATE SERUMon 10-06-2022 Folate [Mass/Vol] 8.8 ng/mL >4.7 ng/mL [facility] Ferritin SerPl-mCncon 2022 Ferritin [Mass/Vol] 143.0 ng/mL Normal 30.3-565.7 [facility] Comment on above: Order Comment: Speci men Type: BLOOD SPECIMEN Ordering Facility: [facility] Address: [address] [place], [place] [address] Performed By: #### 2 4323-8, 2063-4, 6-4, 3016-3 #### [facility] CLIA [id number] [address] [place] [address] STATES [place] Folate SerPl-mCncon 10-07-19 Folate [Mass/Vol] 8.8 ng/mL Normal >4.7 [facility] Comment on above: Order Comment: Speci men Type: BLOOD SPECIMEN Ordering Facility: [facility] Address: [address] [place] [address] Performed By: #### 2 284-8, 2132-9 #### [facility] CLIA [id number] [address] [place] [address] [place] HOMOCYSTEINEon 10-06-2022 Homocysteine [Moles/Vol] 14.7 umol/L <15.1 umol/L [facility] HbA1c (Bld)on 10-06-2022 Average glucose Estimated from glycated hemoglobin (Bld) [Mass/Vol] 94 mg/dL Normal [facility] Comment on above: Order Comment: Vii men Type: BLOOD SPECIMEN Ordering Facility: [facility] Address: [address] [place], [place] [address] Result Comment: eAG: (Estimated average glucose) is a calculated value from HgbA1c and is u.s. representative of the average blood glucose level in the last 2-3 month period. Performed By: #### 2 3-8, , 2275-4, 6-3 #### [facility] CLIA [id number] [address] [place] [address] [place] HbA1c (Bld) [Mass fraction] 4.9 % Normal 4.3-5.6 [facility] Comment on above: Order Comment: Speci men Type: BLOOD SPECIMEN Ordering Facility: [facility] Address: [address] [place], [place] [address] Result Comment: [place] Diabetes Association guidelines indicate that patients with HgbA1c in the range 5.7-6.4% are at increased risk for development of diabetes, and intervention by lifestyle modification may be beneficial. HgbA1c greater or equal to 6.5% is considered diagnostic of diabetes. Performed By: #### 2 4322-8, 2063-07, 2275-4, 6-3 #### [facility] CLIA [id number] [address] [place] [address] [place] Hcys SerPl-sCncon 10-06-2022 Homocysteine [Moles/Vol] 14.7 umol/L Normal <15.1 [facility] Comment on above: Order Comment: Speci men Type: BLOOD SPECIMEN Ordering Facility: [facility] Address: [address] [place], [place] [phone] Performed By: #### 2 432-8, 2063-07, 2275-4, 6-3 #### [facility] CLIA [id number] [address] [place] [address] [place] IMMUNOFIXATION SCREEN, SERUM on 10-06-2022 MPA RESULT No M protein is identified. Normal No M protein is identified . [facility] Comment on above: Order Comment: Speci men Type: BLOOD SPECIMEN Ordering Facility: [facility] Address: [address] [place], [place] [phone] Performed By: #### 2 4323-8, 2063-07, 2275-4, 6-3 #### [facility] CLIA [id number] [address] [place] [address] [place] PER STAFF REVIEW (MPA) Reviewed by Dr. Sadie Tam MD Normal [facility] Comment on above: Order Comment: Speci men Type: BLOOD SPECIMEN Ordering Facility: [facility] Address: [address] [place] [address] Performed By: #### 2 4323-8, 2063-4, 2275-4, 6-3 #### [facility] CLIA [id number] [address] [place] [address] [place] KAPPA/KEANE,FREE,SERon 2022 Immunoglobulin light chains.kappa.free (S) [Mass/Vol] 36.7 mg/L High 3.3-19.4 [facility] Comment on above: Order Comment: Speci men Type: BLOOD SPECIMEN Ordering Facility: [facility] Address: [address] [place] [address] Result Comment: Rare ly, increased serum free light chains levels may not be detected or accurately quantified due to prozone phenomenon or in high viscosity samples using this immunoturbidimetric assay. Correlation with other laboratory results and clinical findings is recommended. The [employer] Free Light Chain was performed using the Binding Site Optilite immunoturbidimetric method. Result obtained with different assay methods or kits cannot be used interchangeably. Performed By: #### 2 4323-8, 4, 4, 3015-3 #### [facility] CLIA [id number] [address] [place] [address] [place] Immunoglobulin light chains.kappa/Immunoglo bulin light chains.lambda (S) [Mass ratio] 2.53 High 0.26-1.65 [facility] Comment on above: Order Comment: Speci men Type: BLOOD SPECIMEN Ordering Facility: [facility] Address: [address] [place] [address] Performed By: #### 2 4323-8, 2063-4, 2275-4, 3015-3 #### [facility] CLIA [id number] [address] [place] [address] [place] Immunoglobulin light chains.lambda.free [Mass/Vol] 14.5 mg/L Normal 5.7-26.3 [facility] Comment on above: Order Comment: Speci men Type: BLOOD SPECIMEN Ordering Facility: [facility] Address: [address] [place] [address] Result Comment: Rare ly, increased serum free [...] #### 2 4323-8, 2063-4, 2275-4, 6-3 #### [facility] [place] [id number] [address] [place] [address] [place] TSH BLDon 10-06-2022 TSH Qn 2.100 m[IU]/L 0.270 - 4.200 mIU/L [facility] TSH SerPl-aCncon 10-06-2022 TSH Qn 2.100 m[IU]/L Normal 0.270-4.20 0 [facility] Comment on above: Order Comment: Speci men Type: BLOOD SPECIMEN Ordering Facility: [facility] Address: [address] [place] [address] Performed By: #### 2 4323-8, 2063-07, 4, 3016-3 #### [facility] [place] [id number] [address] [place] [address] [place] VITAMIN B1 (THIAMINE), WHOLE BLOODon 10-06-2022 Thiamine (Bld) [Moles/Vol] 154.8 nmol/L Normal 84.3-213.3 [facility] Comment on above: Order Comment: Speci men Type: BLOOD SPECIMEN Ordering Facility: [facility] Address: [address] [place], [place] [phone] Result Comment: This assay measures the concentration of thiamine diphosphate (TDP), the primary active form of vitamin B1. Approximately 90 percent of vitamin B1 present in whole blood is TDP. Thiamine and thiamine monophosphate, which comprise the remaining 10 percent, are not measured. This test was developed and its performance characteristics determined by [facility] [place] ([facility]). It has not been cleared or approved by the FDA. [facility] is regulated under CLIA as qualified to perform high-complexity testing. This test is used for clinical purposes. It should not be regarded as investigational or for research. Performed By: #### 2 4323-8, 2063-4, 2275-4, 6-3 #### [facility] CLIA [id number] [address] [place], [place] [address] [place] [facility] VITAMIN B12 BLOODon 10-07-19 Cobalamin (Vitamin B12) [Mass/Vol] 355 pg/mL 232 - 1,245 pg/mL [facility] VITAMIN B6/PYRIDOXINon 10-06 VITAMIN B6 9.7 nmol/L Low 20.0-125.0 [facility] Comment on above: Order Comment: Speci men Type: BLOOD SPECIMEN Ordering Facility: [facility] Address: [address] [place] [address] Result Comment: INTE RPRETIVE INFORMATION: Vitamin B6 (Pyridoxal 5-Phosphate) Pyridoxal 5'-phosphate measured in a specimen collected following an 8-hour or overnight fast accurately indicates vitamin B6 nutritional status. Non-fasting specimen concentration reflects recent vitamin intake. This test was developed and its performance characteristics determined by [facility]. It has not been cleared or approved by the US Food and Drug Administration. This test was performed in a CLIA certified laboratory and is intended for clinical purposes. Performed By: [facility] [address] [place] [id number] [employer] Advisor: Kevan Vu MD, PhD Performed By: #### 2 4323-8, 2063-4, 2275-4, 6-3 #### [facility] CLIA [id number] [facility] [address] [address] [place] Vit B12 SerPl-mCncon 023 Cobalamin (Vitamin B12) [Mass/Vol] 355 pg/mL Normal 232-1245 [facility] Comment on above: Order Comment: Speci men Type: BLOOD SPECIMEN Ordering Facility: [facility] Address: [address] [place] [address] Performed By: #### 2 284-8, 2131-12 #### [facility] CLIA [id number] [address] [place] [address] Zinc SerPl-ncon 10-06-2022 Zinc [Mass/Vol] 36 ug/dL Low 60-120 [facility] Comment on above: Order Comment: Speci men Type: BLOOD SPECIMEN Ordering Facility: [facility] Address: [address] [place] [address] Result Comment: This test was developed and its performance characteristics determined by [facility] [place] ([facility]). It has not been cleared or approved by the FDA. [facility] is regulated under CLIA as qualified to perform high-complexity testing. This test is used for clinical purposes. It should not be regarded as investigational or for research. Performed By: #### 2 284-8, 2131-12 #### [facility] CLIA [id number] [address] [place] [address] [place] LUNG VENT [...] WITH A LOW PROBABILITY OF PULMONARY EMBOLISM. Valance Cutter: PSCNazia Transcribe Date/Time: Oct 04 2022 10:57A Dictated by : ZBIGNIEW WEBSTER MD This examination was interpreted and the report reviewed and electronically signed by: ZBIGNIEW WEBSTER MD on Oct 04 2022 10:58AM EST [id number] Normal [facility] Telemedicineon 10-03-2022 Telemedicine [id number] Miguel Felix 1960 M Date Provider Department Center 10/03/2022 JeanaCARALFREDO LOPEZ [facility] CARD [facility] HeartVAS Family History Problem Relation Age of Onset No Known Problems Mother No Known Problems Father Family Status - Relation Status Age at Mother Father Level of Service:55543 [place] OFFICE/OUTPATIENT ESTABLISHED LOW MDM 20-29 MIN Reason for Visit and Comments: Telehealth Phone Visit [872] Normal [facility] ECHOon 09-13-2022 [facility] LVEF ECHOon 09-13-2022 LV Ejection Fraction 51 % Abnormal <52 % [facility] CBC AUTO DIFFon 09-06-2022 BASO # 0.1 103/ul Normal 0.0-0.1 [facility] Comment on above: Performed By: #### C MADM, BNP, BMP #### [facility] [address] [place] [address] Dr. Risa Patterson Basophils/100 WBC (Bld) 1.1 % Normal 0.2-2.0 [facility] Comment on above: Performed By: #### C MADM, BNP, BMP #### [facility] [address] [place] [address] Dr. Risa Patterson EO # 0.3 103/ul Normal 0.0-0.7 [facility] Comment on above: Performed By: #### C MADM, BNP, BMP #### [facility] [address] [place] [address] Dr. Risa Patterson Eosinophils/100 WBC (Bld) 5.9 % Normal 0.9-7.0 [facility] Comment on above: Performed By: #### C MADM, BNP, BMP #### [facility] [address] [place] [address] Dr. Risa Patterson Erythrocyte distribution width (RBC) [Ratio] 15.1 % Critically high 11.0-15.0 [facility] Comment on above: Performed By: #### C MADM, BNP, BMP #### [facility] [address] [place] [address] Dr. Risa Patterson Hematocrit (Bld) [Volume fraction] 36.6 % Critically low 42.0-54.0 [facility] Comment on above: Performed By: #### C MADM, BNP, BMP #### [facility] [address] [place] [address] Dr. Risa Patterson Hemoglobin (Bld) [Mass/Vol] 11.4 g/dL Critically low 14.0-18.0 [facility] Comment on above: Performed By: #### C MADM, BNP, BMP #### [facility] [address] [place] [address] Dr. Risa Patterson IG # 0.02 10e3/ul Normal 0.00-0.03 [facility] Comment on above: Performed By: #### C MADM, BNP, BMP #### [facility] [address] [place] [address] Dr. Risa Patterson IG % 0.4 % Normal 0.0-0.5 [facility] Comment on above: Performed By: #### C MADM, BNP, BMP #### [facility] [address] [place] [address] Dr. Risa Patterson LYMPH # 0.9 103/ul Critically low 1.2-3.8 [facility] Comment on above: Performed By: #### C MADM, BNP, BMP #### [facility] [address] [place] [address] Dr. Risa Patterson Lymphocytes/100 WBC (Bld) 20.4 % Critically low 20.5-60.0 [facility] Comment on above: Performed By: #### C MADM, BNP, BMP #### [facility] [address] [place] [address] Dr. Risa Patterson MANUAL DIFF REQ NO Normal [facility] Comment on above: Performed By: #### C MADM, BNP, BMP #### [facility] [address] [place] [address] Dr. Risa Patterson MCH (RBC) [Entitic mass] 31.1 pg Normal 25.9-34.0 [facility] Comment on above: Performed By: #### C MADM, BNP, BMP #### [facility] [address] [place] [address] Dr. Risa Patterson MCHC (RBC) [Mass/Vol] 31.1 g/dL Normal 29.9-35.2 [facility] Comment on above: Performed By: #### C MADM, BNP, BMP #### [facility] [address] [place] [address] Dr. Risa Patterson MCV (RBC) [Entitic vol] 100.0 fL Critically high 80.0-94.0 [facility] Comment on above: Performed By: #### C MADM, BNP, BMP #### [facility] [address] [place] [address] Dr. Risa Patterson MONO # 0.3 103/ul Normal 0.3-0.8 [facility] Comment on above: Performed By: #### C MADM, BNP, BMP #### [facility] [address] [place] [address] Dr. Risa Patterson Monocytes/100 WBC (Bld) 6.6 % Normal 1.7-12.0 [facility] Comment on above: Performed By: #### C MADM, BNP, BMP #### [facility] [address] [place] [address] Dr. Risa Patterson NEUT # 3.0 103/ul Normal 1.4-6.5 [facility] Comment on above: Performed By: #### C MADM, BNP, BMP #### [facility] [address] [place] [address] Dr. Risa Patterson Neutrophils/100 WBC (Bld) 65.6 % Normal 43.0-75.0 [facility] Comment on above: Performed By: #### C MADM, BNP, BMP #### [facility] [address] [place] [address] Dr. Risa Patterson Platelet mean volume (Bld) [Entitic vol] 9.1 fL Critically low 9.5-13.5 [facility] Comment on above: Performed By: #### C MADM, BNP, BMP #### [facility] [address] [place] [address] Dr. Risa Patterson PLT 286 103/ul Normal 150-450 [facility] Comment on above: Performed By: #### C MADM, BNP, BMP #### [facility] [address] [place] [address] Dr. Risa Patterson RBC 3.66 106/ul Critically low 4.70-6.10 [facility] Comment on above: Performed By: #### C MADM, BNP, BMP #### [facility] [address] [place] [address] Dr. Risa Patterson WBC 4.6 103/ul Normal 4.0-11.0 [facility] Comment on above: Performed By: #### C MADM, BNP, BMP #### [facility] [address] [place] [address] Dr. Risa Patterson PROF 14(COMP METB)on 023 Albumin [Mass/Vol] 2.9 g/dL Critically low 3.4-5.0 [facility] Comment on above: Performed By: #### C MP #### [facility] [address] [place] [address] Dr. Risa Patterson Albumin/Globulin [Mass ratio] 0.7 {ratio} Normal [facility] Comment on above: Performed By: #### C MP #### [facility] [address] [place] [address] Dr. Risa Patterson ALP [Catalytic activity/Vol] 66 U/L Normal 46-116 [facility] Comment on above: Performed By: #### C MP #### [facility] [address] [place] [address] Dr. Risa Patterson ALT [Catalytic activity/Vol] 31 U/L Normal 16-63 [facility] Comment on above: Performed By: #### C MP #### [facility] [address] [address] [address] Risa Patterson Anion gap [Moles/Vol] 15.6 mmol/L Normal Th e [facility] Comment on above: Performed By: #### C MP #### [facility] [address] [address] [address] Risa Patterson AST [Catalytic activity/Vol] 35 U/L Normal 15-37 [facility] Comment on above: Performed By: #### C MP #### [facility] [address] [address] [address] Risa Patterson Bilirubin [Mass/Vol] 0.4 mg/dL Normal 0.2-1.0 [facility] Comment on above: Performed By: #### C MP #### [facility] [address] [address] [address] Risa Patterson Calcium [Mass/Vol] 8.9 mg/dL Normal 8.5-10.1 [facility] Comment on above: Performed By: #### C MP #### [facility] [address] [address] [address] Risa Patterson Chloride [Moles/Vol] 105 mmol/L Normal 98-107 [facility] Comment on above: Performed By: #### C MP #### [facility] [address] [address] [address] Risa Patterson CO2 [Moles/Vol] 24.5 mmol/L Normal 21.0-32.0 [facility] Comment on above: Performed By: #### C MP #### [facility] [address] [address] [address] Risa Patterson Creatinine [Mass/Vol] 1.35 mg/dL Critically high 0.70-1.30 [facility] Comment on above: Performed By: #### C MP #### [facility] [address] [address] [address] Risa Patterson EGFR-AF FIJIAN >60 Normal >=60 [facility] Comment on above: Performed By: #### C MP #### [facility] [address] [address] [address] Risa Patterson EGFR-NON AF FIJIAN 54 mL/min/1.73m2 Critically low >=60 [facility] Comment on above: Performed By: #### C MP #### [facility] [address] [address] [address] Risa Patterson Globulin (S) [Mass/Vol] 4.3 g/dL Normal [facility] Comment on above: Performed By: #### C MP #### [facility] [address] [address] [address] Risa Patterson Glucose [Mass/Vol] 107 mg/dL Critically high 74-106 [facility] Comment on above: Performed By: #### C MP #### [facility] [address] [address] [address] Risa Patterson Potassium [Moles/Vol] 4.1 mmol/L Normal 3.5-5.1 [facility] Comment on above: Performed By: #### C MP #### [facility] [address] [address] [address] Risa Patterson Protein [Mass/Vol] 7.2 g/dL Normal 6.4-8.2 [facility] [place] Comment on above: Performed By: #### C MP #### [facility] [address] [place] [address] Dr. Risa Patterson Sodium [Moles/Vol] 141 mmol/L Normal 136-145 [facility] Comment on above: Performed By: #### C MP #### [facility] [address] [address] [address] Risa Patterson Urea nitrogen [Mass/Vol] 19.0 mg/dL Critically high 7.0-18.0 [facility] Comment on above: Performed By: #### C MP #### [facility] [address] [address] [address] Risa Patterson Urea nitrogen/Creatinine [Mass ratio] 14.1 mg/mg Normal [facility] Comment on above: Performed By: #### C MP #### [facility] [address] [address] [address] Risa Patterson SED RATE [facility] 2022 SED RATE 57 mm/hr Critically high <=20 [facility] Comment on above: Performed By: #### S EDR #### [facility] [address] [address] [address] Risa Bolden 08-28-2022 CNPN Telephone (CATLMN) ELENA FELIX ([id number]) 1960 M Date Time Provider Department 08/28/22 [...] Status:Closed by LAURYN BETHEA RN on 08/28/22 [facility] Adela 08-16-2022 CNOV Office Visit (RHARMN ) ELENA FELIX ([id number]) 1960 Date Time Provider Department 08/16/22 10:00 AM ALEXUS NANCE During your visit today, we recorded the following information about you: Alexus Nance PA-C 09/19/2022 6:06 AM Signed [facility] Date of Service: 08/16/2022 Patient: Elena Felix Medical Record: [id number] Primary Care Physician: Silvana Lundberg MD Last Rheumatology visit: None at the [facility] Referring Provider: Tricia Howard MD [address] [facility] [id number] Consultation requested by Tricia Howard MD for [...] years later. He currently follows with a accredited legal secretary, Dr. Brad Hodges, in [place], [place] who he is happy with. However, reports accredited legal secretary told him, he is only his third patient with ankylosing spondylitis and so presents to [facility] rheum for assistance on treatment plan. [...] mass areas in the brain. Reports his accredited legal secretary has considered a TNF-alpha inhibitor again, but [...] PAST MEDICAL HISTORY Diagnosis Date Ankylosing spondylitis ([facility]) Dr Hodges Ankylosing spondylitis ([facility]) Arthritis Back pain Cardiomyopathy ([facility]) Nonischemic Congestive Cerebrovascular small vessel disease 08/24/2016 On ASA DVT (deep venous thrombosis) ([facility]) Esophageal reflux Former smoker Kidney stones Major depressive disorder with single episode, in remission ([facility]) 08/24/2016 Morbid obesity with BMI of 40.0-44.9, adult ([facility]) Neuropathy Obstructive sleep apnea syndrome, severe On [...] Mother Stroke (more content not included)... Normal [facility] CNOV Office Visit (CARCMN ) ELENA FELIX ([id number]) 1960 M Date Time Provider Department 08/16/22 7:15 AM TRICIA HOWARD CARCMN During your visit today, we recorded the following information about you: Pulse Blood pressure Weight Height 89/minute 114/78 132.4 kg 1.88 m Tricia Howard MD 08/16/2022 1:01 PM Signed [facility] [place] [facility] Department of Cardiovascular Medicine SECTION OF CLINICAL CARDIOLOGY OUTPATIENT VISIT DATE August 16, 2022 OUTPATIENT VISIT TYPE NEW PRIMARY CARE PHYSICIAN : Silvana Lundberg (Shante) [address] [place] [phone] REFERRING PHYSICIAN: No referring provider defined for [...] 20 years ago. Used to work in [employer]. Fmaily hx of stroke in mother and father. PAST MEDICAL HISTORY Diagnosis Date Ankylosing spondylitis ([facility]) Dr Hodges Ankylosing spondylitis ([facility]) Arthritis Back pain Cardiomyopathy ([facility]) Nonischemic Congestive Cerebrovascular small vessel disease 08/24/2016 On ASA DVT (deep venous thrombosis) ([facility]) Esophageal reflux Former smoker Kidney stones Major depressive disorder with single episode, in remission ([facility]) 08/24/2016 Morbid obesity with BMI of 40.0-44.9, adult ([facility]) Neuropathy Obstructive sleep apnea syndrome, severe On [...] Take 5 (more content not included)... Normal [facility] ECG COMPLETEon 08-16-2022 Atrial Rate 83 BPM [facility] Calculated P [place] 27 degrees [facility] Calculated R [place] 14 degrees [facility] Calculated T [place] 38 degrees [facility] P-R Interval 158 ms [facility] QRS Duration 86 ms [facility] QT Interval 350 ms [facility] QTC Calculation (Bazett) 411 ms [facility] Ventricular Rate 83 BPM [facility] ECG COMPLETE Ventricular Rate : 8 3 BPM Atrial Rate : 83 BPM P-R Interval : 158 ms QRS Duration : 86 ms Q-T Interval : 350 ms QTC Calculation(Bazett) : 411 ms Calculated P [place] : 27 degrees Calculated R [place] : 14 degrees Calculated T [place] : 38 degrees NORMAL SINUS RHYTHM NORMAL ECG Confirmed by YELENA FUENTES MD ([id number]) on 08/16/2022 10:01:53 AM NAME : ELENA FELIX PID : [id number] : 1960 Gender : Male Race : ORD : [id number] Procedure Date : Aug 16 2022 07:21:17 Edit Date : Aug 16 2022 10:01:54 Diagnosis: NORMAL SINUS RHYTHM NORMAL ECG Confirmed by YELENA FUENTES MD ([id number]) on 08/16/2022 10:01:53 AM Test Reason : Location : 314 : J14 J14 Overread By : YELENA FUENTES MD Edited By : YELENA FUENTES MD Referred By : TRICIA HOWARD Acquired by : RENETTA GOODWIN [facility] Yuan 08-15-2022 CNPN Telephone (CARCMN) ELENA FELIX ([id number]) 1960 M Date Time Provider Department 08/15/22 TRICIA HOWARD CARCKS During your visit today, we recorded the following information about you: Geovanni Baker 08/15/2022 12:55 PM Signed Images received from [employer] by mail. Images uploaded to [employer]. Patient has a future appointment on: 08/16/22. [...] Reason for Visit: Received Outside Medical Records [8873] Prescriptions as of 08/15/2022 - cyclobenzaprine (FLEXERIL) [...] Status:Closed by GEOVANNI BAKER on 08/15/22 Normal [facility] Office Visiton 08-10-2022 Follow-up visit [id number] Miguel Felix 1960 M Date Provider Department Center 08/10/2022 Becka-MARIA TERESA BA CARD [facility] Family History Problem Relation Age of Onset No Known Problems Mother No Known Problems Father Family Status - Relation Status Age at Mother Father Level of Service:24680 [place] OFFICE/OUTPATIENT ESTABLISHED MOD MDM 30-39 MIN Normal [facility] Yuan 08-04-2022 CNPN Telephone (CARCMN) ELENA FELIX ([id number]) 1960 M Date Time Provider Department 08/04/22 [...] 08/04/2022 4:50 PM Signed Records received from [facility] by fax. Records uploaded to [facility] and [...] Status:Closed by GEOVANNI BAKER on 09/15/22 Normal [facility] CNCOon 08-03-2022 CNCO Letter Text Normal [facility] TILT TABLE TESTon 08-01-2022 TILT TABLE TEST [address] [address] TILT TABLE TEST PATIENT NAME: ELENA FELIX : 1960 MED REC NO: [id number] ROOM: ACCOUNT NO: [id number] ADMIT DATE: 07/31/2022 PROVIDER: Santos Barrios MD Cardiovascular Diagnostics Department DATE OF PROCEDURE: 07/31/2022 ORDERING PROVIDER: Carlos Krishna APRN-TELEPHONE WORKER PRIMARY CARE PROVIDER: Silvana Lundberg MD INTERPRETING [...] up with their primary care physician and/or veterinarian assistant as previously scheduled. STUDY CONCLUSIONS: Abnormal head [...] BRANDON/OSMIN Doc#: Unknown CC: Silvana Joel Tomi [facility] 07-12-2022 [place]NER Telephone (CARCMN) ELENA FELIX ([id number]) 1960 M Date Time Provider Department 07/12/22 TRICIA HOWARD [facility] During your visit today, we recorded the following information about you: Geovanni Jonathan 07/12/2022 2:02 PM Signed Contacted patient via Phone -no answer; [facility] left requesting for cardiac records prior to [...] Status:Closed by GEOVANNI BAKER on 07/12/22 Normal [facility] Office Visiton 07-12-2022 Follow-up visit [id number] Miguel Felix 1960 [facility] Provider Department Center 07/12/2022 CARLOS [facility]OD CARD [facility] Family History Problem Relation Age of Onset No Known Problems Mother No Known Problems Father Family Status - Relation Status Age at Mother Father Level of Service:00845 [place] OFFICE/OUTPATIENT ESTABLISHED MOD MDM 30-39 MIN Reason for Visit and Comments: Congestive Heart Failure [127] Hypertension [873951] POTS [Other] [facility] 36on 07-05-2022 36 Per Ted from [facility] car diac rehab, patient is very orthostatic and is very dizzy. It's very hard for him to ride the bikes at cardiac rehab due to dizziness. Can he cut the metoprolol? Normal [facility] Documentationon 07-05-2022 Documentation [id number] Miguel Felix 1960 M Date Provider Department Center 07/05/2022 120-JESENIA, MARIA TERESA KISHORE [address] Family History Problem Relation Age of Onset No Known Problems Mother No Known Problems Father Family Status - Relation Status Age at Mother Father Reason for Visit and Comments: POTS [Other] Normal [facility] Orders Onlyon 07-05-2022 Orders Only [id number] Miguel Felix 1960 M Date Provider Department Center 07/05/2022 120-JESENIAMARIA TERESA Lui KISHORE [address] Family History Problem Relation Age of Onset No Known Problems Mother No Known Problems Father Family Status - Relation Status Age at Mother Father Normal [facility] CBC AUTO DIFFon 07-04-2022 BASO # 0.1 103/ul Normal 0.0-0.1 [facility] Comment on above: Performed By: #### C MADM, BNP, BMP #### [facility] [address] [place] [address] Dr. Risa Patterson Basophils/100 WBC (Bld) 0.8 % Normal 0.2-2.0 [facility] Comment on above: Performed By: #### C MADM, BNP, BMP #### [facility] [address] [place] [address] Dr. Risa Patterson EO # 0.3 103/ul Normal 0.0-0.7 [facility] Comment on above: Performed By: #### C MADM, BNP, BMP #### [facility] [address] [address] [address] Risa Patterson Eosinophils/100 WBC (Bld) 4.0 % Normal 0.9-7.0 [facility] Comment on above: Performed By: #### C MADM, BNP, BMP #### [facility] [address] [address] [address] Risa Patterson Erythrocyte distribution width (RBC) [Ratio] 15.8 % Critically high 11.0-15.0 [facility] Comment on above: Performed By: #### C MADM, BNP, BMP #### [facility] [address] [place] [address] Dr. Risa Patterson Hematocrit (Bld) [Volume fraction] 37.3 % Critically low 42.0-54.0 [facility] Comment on above: Performed By: #### C MADM, BNP, BMP #### [facility] [address] [place] [address] Dr. Risa Patterson Hemoglobin (Bld) [Mass/Vol] 11.7 g/dL Critically low 14.0-18.0 [facility] Comment on above: Performed By: #### C MADM, BNP, BMP #### [facility] [address] [place] [address] Dr. Risa Patterson IG # 0.04 10e3/ul Critically high 0.00-0.03 [facility] Comment on above: Performed By: #### C MADM, BNP, BMP #### [facility] [address] [place] [address] Dr. Risa Patterson IG % 0.5 % Normal 0.0-0.5 [facility] Comment on above: Performed By: #### C MADM, BNP, BMP #### [facility] [address] [place] [address] Dr. Risa Patterson LYMPH # 1.0 103/ul Critically low 1.2-3.8 [facility] Comment on above: Performed By: #### C MADM, BNP, BMP #### [facility] [address] [place] [address] Dr. Risa Patterson Lymphocytes/100 WBC (Bld) 13.1 % Critically low 20.5-60.0 [facility] Comment on above: Performed By: #### C MADM, BNP, BMP #### [facility] [address] [place] [address] Dr. Risa Patterson MANUAL DIFF REQ NO Normal [facility] Comment on above: Performed By: #### C MADM, BNP, BMP #### [facility] [address] [place] [address] Dr. Rsia Patterson MCH (RBC) [Entitic mass] 31.3 pg Normal 25.9-34.0 [facility] Comment on above: Performed By: #### C MADM, BNP, BMP #### [facility] [address] [place] [address] Dr. Risa Patterson MCHC (RBC) [Mass/Vol] 31.4 g/dL Normal 29.9-35.2 [facility] Comment on above: Performed By: #### C MADM, BNP, BMP #### [facility] [address] [place] [address] Dr. Risa Patterson MCV (RBC) [Entitic vol] 99.7 fL Critically high 80.0-94.0 [facility] Comment on above: Performed By: #### C MADM, BNP, BMP #### [facility] [address] [place] [address] Dr. Risa Patterson MONO # 0.9 103/ul Critically high 0.3-0.8 [facility] Comment on above: Performed By: #### C MADM, BNP, BMP #### [facility] [address] [place] [address] Dr. Risa Patterson Monocytes/100 WBC (Bld) 12.3 % Critically high 1.7-12.0 [facility] Comment on above: Performed By: #### C MADM, BNP, BMP #### [facility] [address] [place] [address] Dr. Risa Patterson NEUT # 5.2 103/ul Normal 1.4-6.5 [facility] Comment on above: Performed By: #### C MADM, BNP, BMP #### [facility] [address] [place] [address] Dr. Risa Patterson Neutrophils/100 WBC (Bld) 69.3 % Normal 43.0-75.0 [facility] Comment on above: Performed By: #### C MADM, BNP, BMP #### [facility] [address] [place] [address] Dr. Risa Patterson Platelet mean volume (Bld) [Entitic vol] 9.3 fL Critically low 9.5-13.5 [facility] Comment on above: Performed By: #### C MADM, BNP, BMP #### [facility] [address] [place] [address] Dr. Risa Patterson PLT 244 103/ul Normal 150-450 [facility] Comment on above: Performed By: #### C MADM, BNP, BMP #### [facility] [address] [address] [address] Risa Patterson RBC 3.74 106/ul Critically low 4.70-6.10 [facility] Comment on above: Performed By: #### C MADM, BNP, BMP #### [facility] [address] [id number] Risa Patetrson WBC 7.5 103/ul Normal 4.0-11.0 [facility] Comment on above: Performed By: #### C MADM, BNP, BMP #### [facility] [address] [address] [address] Risa Patterson ECHOCARDIO M/2D COMPLETEon 0 07-04-2022 ECHOCARDIO M/2D COMPLETE Patient: ELENA FELIX Exam Date: 07/04/2022 : 1960 Gender:M Ordering : NIKKIE TREJO Admission #: [id number] Family : DR BRAD HODGES M.D. Order #: [id number] CLICK HERE TO VIEW EXAM ECHOCARDIOGRAM REPORT [...] M.D. on 07/04/2022 at 12:03 Approved by: Osmany Hernandez M.D. on 07/04/2022 at 12:06 Normal [facility] PROF 14(COMP METB)on 023 Albumin [Mass/Vol] 2.9 g/dL Critically low 3.4-5.0 [facility] Comment on above: Performed By: #### C MP #### [facility] [address] [place] [address] Dr. Risa Patterson Albumin/Globulin [Mass ratio] 0.8 {ratio} Normal [facility] Comment on above: Performed By: #### C MP #### [facility] [address] [place] [address] Dr. Risa Patterson ALP [Catalytic activity/Vol] 62 U/L Normal 46-116 [facility] Comment on above: Performed By: #### C MP #### [facility] [address] [place] [address] Dr. Risa Patterson ALT [Catalytic activity/Vol] 30 U/L Normal 16-63 [facility] Comment on above: Performed By: #### C MP #### [facility] [address] [place] [address] Dr. Risa Patterson Anion gap [Moles/Vol] 9.3 mmol/L Normal [facility] Comment on above: Performed By: #### C MP #### [facility] [address] [place] [address] Dr. Risa Patterson AST [Catalytic activity/Vol] 25 U/L Normal 15-37 [facility] Comment on above: Performed By: #### C MP #### [facility] [address] [place] [address] Dr. Risa Patterson Bilirubin [Mass/Vol] 0.4 mg/dL Normal 0.2-1.0 [facility] Comment on above: Performed By: #### C MP #### [facility] [address] [place] [address] Dr. Risa Patterson Calcium [Mass/Vol] 8.8 mg/dL Normal 8.5-10.1 [facility] Comment on above: Performed By: #### C MP #### [facility] [address] [place] [address] Dr. Risa Patterson Chloride [Moles/Vol] 108 mmol/L Critically high 98-107 [facility] Comment on above: Performed By: #### C MP #### [facility] [address] [place] [address] Dr. Risa Patterson CO2 [Moles/Vol] 29.8 mmol/L Normal 21.0-32.0 [facility] Comment on above: Performed By: #### C MP #### [facility] [address] [place] [address] Dr. Risa Patterson Creatinine [Mass/Vol] 1.26 mg/dL Normal 0.70-1.30 [facility] Comment on above: Performed By: #### C MP #### [facility] [address] [place] [address] Dr. Risa Patterson EGFR-AF FIJIAN >60 Normal >=60 [facility] Comment on above: Performed By: #### C MP #### [facility] [address] [place] [address] Dr. Risa Patterson EGFR-NON AF FIJIAN 58 mL/min/1.73m2 Critically low >=60 [facility] Comment on above: Performed By: #### C MP #### [facility] [address] [place] [address] Dr. Risa Patterson Globulin (S) [Mass/Vol] 3.6 g/dL Normal [facility] Comment on above: Performed By: #### C MP #### [facility] [address] [place] [address] Dr. Risa Patterson Glucose [Mass/Vol] 114 mg/dL Critically high 74-106 [facility] Comment on above: Performed By: #### C MP #### [facility] [address] [address] [address] Risa Patterson Potassium [Moles/Vol] 4.1 mmol/L Normal 3.5-5.1 [facility] Comment on above: Performed By: #### C MP #### [facility] [address] [address] [address] Risa Patterson Protein [Mass/Vol] 6.5 g/dL Normal 6.4-8.2 [facility] Comment on above: Performed By: #### C MP #### [facility] [address] [address] [address] Risa Patterson Sodium [Moles/Vol] 143 mmol/L Normal 136-145 [facility] Comment on above: Performed By: #### C MP #### [facility] [address] [place] [address] Dr. Risa Patterson Urea nitrogen [Mass/Vol] 20.0 mg/dL Critically high 7.0-18.0 [facility] Comment on above: Performed By: #### C MP #### [facility] [address] [address] [address] Risa Patterson Urea nitrogen/Creatinine [Mass ratio] 15.9 mg/mg Normal [facility] Comment on above: Performed By: #### C MP #### [facility] [address] [place] [address] Dr. Risa Patterson SED RATE WESTERGRENon 2022 SED RATE 26 mm/hr Critically high <=20 [facility] Comment on above: Performed By: #### C MADM, BNP, BMP #### [facility] [address] [address] [address] Risa Patterson BNPon 06-26-2022 Natriuretic peptide B (Bld) [Mass/Vol] 82.0 pg/mL Normal <=900.0 [facility] Comment on above: Performed By: #### C MREP #### [facility] [address] [address] [address] Risa Patterson CBC AUTO DIFFon 06-26-2022 BASO # 0.1 103/ul Normal 0.0-0.1 [facility] Comment on above: Performed By: #### C MREP #### [facility] [address] [place] [address] Dr. Risa Patterson Basophils/100 WBC (Bld) 0.7 % Normal 0.2-2.0 [facility] Comment on above: Performed By: #### C MREP #### [facility] [address] [place] [address] Dr. Risa Patterson EO # 0.4 103/ul Normal 0.0-0.7 [facility] Comment on above: Performed By: #### C MREP #### [facility] [address] [place] [address] Dr. Risa Patterson Eosinophils/100 WBC (Bld) 3.9 % Normal 0.9-7.0 [facility] Comment on above: Performed By: #### C MREP #### [facility] [address] [place] [address] Dr. Risa Patterson Erythrocyte distribution width (RBC) [Ratio] 15.0 % Normal 11.0-15.0 [facility] Comment on above: Performed By: #### C MREP #### [facility] [address] [place] [address] Dr. Risa Patterson Hematocrit (Bld) [Volume fraction] 39.1 % Critically low 42.0-54.0 [facility] Comment on above: Performed By: #### C MREP #### [facility] [address] [place] [address] Dr. Risa Patterson Hemoglobin (Bld) [Mass/Vol] 12.3 g/dL Critically low 14.0-18.0 [facility] Comment on above: Performed By: #### C MREP #### [facility] [address] [place] [address] Dr. Risa Patterson IG # 0.07 10e3/ul Critically high 0.00-0.03 [facility] Comment on above: Performed By: #### C MREP #### [facility] [address] [place], [place] [id number] Dr. Risa Patterson IG % 0.8 % Critically high 0.0-0.5 [facility] Comment on above: Performed By: #### C MREP #### [facility] [address] [place] [address] Dr. Risa Patterson LYMPH # 1.0 103/ul Critically low 1.2-3.8 [facility] Comment on above: Performed By: #### C MREP #### [facility] [address] [place] [address] Dr. Risa Patterson Lymphocytes/100 WBC (Bld) 11.3 % Critically low 20.5-60.0 [facility] Comment on above: Performed By: #### C MREP #### [facility] [address] [place] [address] Dr. Risa Patterson MANUAL DIFF REQ NO Normal [facility] Comment on above: Performed By: #### C MREP #### [facility] [address] [place] [address] Dr. Risa Patterson MCH (RBC) [Entitic mass] 30.9 pg Normal 25.9-34.0 [facility] Comment on above: Performed By: #### C MREP #### [facility] [address] [place] [address] Dr. Risa Patterson MCHC (RBC) [Mass/Vol] 31.5 g/dL Normal 29.9-35.2 [facility] Comment on above: Performed By: #### C MREP #### [facility] [address] [place] [address] Dr. Risa Patterson MCV (RBC) [Entitic vol] 98.2 fL Critically high 80.0-94.0 [facility] Comment on above: Performed By: #### C MREP #### [facility] [address] [place] [address] Dr. Risa Patterson MONO # 1.1 103/ul Critically high 0.3-0.8 [facility] Comment on above: Performed By: #### C MREP #### [facility] [address] [place] [address] Dr. Risa Patterson Monocytes/100 WBC (Bld) 12.1 % Critically high 1.7-12.0 [facility] Comment on above: Performed By: #### C MREP #### [facility] [address] [place] [address] Dr. Risa Patterson NEUT # 6.4 103/ul Normal 1.4-6.5 [facility] Comment on above: Performed By: #### C MREP #### [facility] [address] [place] [address] Dr. Risa Patterson Neutrophils/100 WBC (Bld) 71.2 % Normal 43.0-75.0 [facility] Comment on above: Performed By: #### C MREP #### [facility] [address] [place] [address] Dr. Risa Patterson Platelet mean volume (Bld) [Entitic vol] 9.2 fL Critically low 9.5-13.5 [facility] Comment on above: Performed By: #### C MREP #### [facility] [address] [place] [address] Dr. Risa Patterson PLT 285 103/ul Normal 150-450 [facility] Comment on above: Performed By: #### C MREP #### [facility] [address] [place] [address] Dr. Risa Patterson RBC 3.98 106/ul Critically low 4.70-6.10 [facility] Comment on above: Performed By: #### C MREP #### [facility] [address] [place] [address] Dr. Risa Patterson WBC 9.0 103/ul Normal 4.0-11.0 [facility] Comment on above: Performed By: #### C MREP #### [facility] [address] [place] [address] Dr. Risa Patterson Orders Onlyon 06-26-2022 Orders Only [id number] Miguel Felix 1960 M Date Provider Department Center 06/26/2022 MELQUIADES JEFFERSON [facility] Family History Problem Relation Age of Onset No Known Problems Mother No Known Problems Father Family Status - Relation Status Age at Mother Father Normal [facility] PROF CHEM 8 (BAS METB)on Anion gap [Moles/Vol] 12.3 mmol/L Normal [facility] Comment on above: Performed By: #### C MREP #### [facility] [address] [address] [address] Risa Patterson Calcium [Mass/Vol] 9.3 mg/dL Normal 8.5-10.1 [facility] Comment on above: Performed By: #### C MREP #### [facility] [address] [address] [address] Risa Patterson Chloride [Moles/Vol] 106 mmol/L Normal 98-107 [facility] Comment on above: Performed By: #### C MREP #### [facility] [address] [place] [address] Dr. Risa Patterson CO2 [Moles/Vol] 29.2 mmol/L Normal 21.0-32.0 [facility] Comment on above: Performed By: #### C MREP #### [facility] [address] [address] [address] Risa Patterson Creatinine [Mass/Vol] 1.40 mg/dL Critically high 0.70-1.30 [facility] Comment on above: Performed By: #### C MREP #### [facility] [address] [address] [address] Risa Patterson EGFR-AF FIJIAN >60 Normal >=60 [facility] Comment on above: Performed By: #### C MREP #### [facility] [address] [address] [address] Risa Patterson EGFR-NON AF FIJIAN 52 mL/min/1.73m2 Critically low >=60 [facility] Comment on above: Performed By: #### C MREP #### [facility] [address] [address] [address] Risa Patterson Glucose [Mass/Vol] 107 mg/dL Critically high 74-106 [facility] Comment on above: Performed By: #### C MREP #### [facility] [address] [address] [address] Risa Patterson Potassium [Moles/Vol] 4.5 mmol/L Normal 3.5-5.1 [facility] Comment on above: Performed By: #### C MREP #### [facility] [address] [address] [address] Risa Patterson Sodium [Moles/Vol] 143 mmol/L Normal 136-145 [facility] Comment on above: Performed By: #### C MREP #### [facility] [address] [address] [address] Risa Patterson Urea nitrogen [Mass/Vol] 20.0 mg/dL Critically high 7.0-18.0 [facility] Comment on above: Performed By: #### C MREP #### [facility] [address] [address] [address] Risa Patterson Urea nitrogen/Creatinine [Mass ratio] 14.3 mg/mg Normal [facility] Comment on above: Performed By: #### C MREP #### [facility] [address] [address] [address] Risa Patterson Office Visiton 05-31-2022 Follow-up visit [id number] Miguel Felix 1960 M Date Provider Department Center 05/31/2022 [facility]8NIKKIE TREJO [facility] Family History Problem Relation Age of Onset No Known Problems Mother No Known Problems Father Family Status - Relation Status Age at Mother Father Level of Service:73905 [place] OFFICE/OUTPATIENT ESTABLISHED MOD MDM 30-39 MIN Reason for Visit and Comments: Congestive Heart Failure [127] Hyperlipidemia [182] DVT [Other] Normal [facility] Screenson 05-02-2022 Screens [id number] Normal [facility] Ambulatory Visit Summaryon 0 05-01-2022 Ambulatory Visit Summary ELENA FELIX :1960 Visit Date:05/01/2022 Ambulatory Visit Instructions Your Diagnosis BPH with urinary obstruction Chronic prostatitis Epididymal cyst Other obstructive and reflux uropathy Tests Performed Urnls Dip Stick Auto w/o Microscopy POC 87382 Your Care Team Attending Physician - ARABELLA [...] MUNIZ, Jerrod Moya Where: [facility] Patient Educationon 05-01-19 23 Patient [...] Follow these instructions at home: ? Take [id number] and prescription medicines only as told by [...] You d (more content not included)... Normal [facility] Urology Office/Clinic Noteon 05-01-2022 Urology Office/Clinic Note [...] Urology [address], [place] [address]- [id number] Additional Instructions: Patient Education Benign Prostatic Hyperplasia [...] 3 refills (more content not included)... Normal [facility] Comment on above: Result Comment: Elec tronically [...] ASHER SOLANO Date: 2022-04-25 11:06 Normal [facility] HEMOGLOBINon 04-10-2022 Hemoglobin (Bld) [Mass/Vol] 11.9 g/dL Critically low 14.0-18.0 [facility] Comment on above: Performed By: #### C MADM, BNP, BMP #### [facility] [address] [place] [address] Dr. Risa Patterson CBC AUTO DIFFon 04-03-2022 BASO # 0.0 103/ul Normal 0.0-0.1 [facility] Comment on above: Performed By: #### C MADM, BNP, BMP #### [facility] [address] [place] [address] Dr. Risa Patterson Basophils/100 WBC (Bld) 0.5 % Normal 0.2-2.0 [facility] Comment on above: Performed By: #### C MADM, BNP, BMP #### [facility] [address] [place] [address] Dr. Risa Patterson EO # 0.3 103/ul Normal 0.0-0.7 [facility] Comment on above: Performed By: #### C MADM, BNP, BMP #### [facility] [address] [place] [address] Dr. Risa Patterson Eosinophils/100 WBC (Bld) 5.3 % Normal 0.9-7.0 [facility] Comment on above: Performed By: #### C MADM, BNP, BMP #### [facility] [address] [place] [address] Dr. Risa Patterson Erythrocyte distribution width (RBC) [Ratio] 16.3 % Critically high 11.0-15.0 [facility] Comment on above: Performed By: #### C MADM, BNP, BMP #### [facility] [address] [place], [place] [id number] Dr. Risa Patterson Hematocrit (Bld) [Volume fraction] 38.4 % Critically low 42.0-54.0 [facility] Comment on above: Performed By: #### C MADM, BNP, BMP #### [facility] [address] [place] [address] Dr. Risa Patterson Hemoglobin (Bld) [Mass/Vol] 12.0 g/dL Critically low 14.0-18.0 [facility] Comment on above: Performed By: #### C MADM, BNP, BMP #### [facility] [address] [place] [address] Dr. Risa Patterson IG # 0.04 10e3/ul Critically high 0.00-0.03 [facility] Comment on above: Performed By: #### C MADM, BNP, BMP #### [facility] [address] [place] [address] Dr. Risa Patterson IG % 0.7 % Critically high 0.0-0.5 [facility] Comment on above: Performed By: #### C MADM, BNP, BMP #### [facility] [address] [place] [address] Dr. Risa Patterson LYMPH # 1.1 103/ul Critically low 1.2-3.8 [facility] Comment on above: Performed By: #### C MADM, BNP, BMP #### [facility] [address] [place] [address] Dr. Risa Patterson Lymphocytes/100 WBC (Bld) 18.7 % Critically low 20.5-60.0 [facility] Comment on above: Performed By: #### C MADM, BNP, BMP #### [facility] [address] [place] [address] Dr. Risa Patterson MANUAL DIFF REQ NO Normal [facility] Comment on above: Performed By: #### C MADM, BNP, BMP #### [facility] [address] [place] [address] Dr. Risa Patterson MCH (RBC) [Entitic mass] 31.3 pg Normal 25.9-34.0 [facility] Comment on above: Performed By: #### C MADM, BNP, BMP #### [facility] [address] [place] [address] Dr. Risa Patterson MCHC (RBC) [Mass/Vol] 31.3 g/dL Normal 29.9-35.2 [facility] Comment on above: Performed By: #### C MADM, BNP, BMP #### [facility] [address] [place] [address] Dr. Risa Patterson MCV (RBC) [Entitic vol] 100.0 fL Critically high 80.0-94.0 [facility] Comment on above: Performed By: #### C MADM, BNP, BMP #### [facility] [address] [place] [address] Dr. Risa Patterson MONO # 0.8 103/ul Normal 0.3-0.8 [facility] Comment on above: Performed By: #### C MADM, BNP, BMP #### [facility] [address] [place] [address] Dr. Risa Patterson Monocytes/100 WBC (Bld) 13.7 % Critically high 1.7-12.0 [facility] Comment on above: Performed By: #### C MADM, BNP, BMP #### [facility] [address] [place] [address] Dr. Risa Patterson NEUT # 3.7 103/ul Normal 1.4-6.5 [facility] Comment on above: Performed By: #### C MADM, BNP, BMP #### [facility] [address] [place] [address] Dr. Risa Patterson Neutrophils/100 WBC (Bld) 61.1 % Normal 43.0-75.0 [facility] Comment on above: Performed By: #### C MADM, BNP, BMP #### [facility] [address] [place] [address] Dr. Risa Patterson Platelet mean volume (Bld) [Entitic vol] 9.5 fL Normal 9.5-13.5 [facility] Comment on above: Performed By: #### C MADM, BNP, BMP #### [facility] [address] [address] [address] Risa Patterson PLT 218 103/ul Normal 150-450 [facility] Comment on above: Performed By: #### C MADM, BNP, BMP #### [facility] [address] [place] [address] Dr. Risa Patterson RBC 3.84 106/ul Critically low 4.70-6.10 [facility] Comment on above: Performed By: #### C MADM, BNP, BMP #### [facility] [address] [place] [address] Dr. Risa Patterson WBC 6.0 103/ul Normal 4.0-11.0 [facility] Comment on above: Performed By: #### C MADM, BNP, BMP #### [facility] [address] [place] [address] Dr. Risa Patterson PROF 14(COMP METB)on 022 Albumin [Mass/Vol] 2.9 g/dL Critically low 3.4-5.0 [facility] Comment on above: Performed By: #### C MADM, BNP, BMP #### [facility] [address] [place] [address] Dr. Risa Patterson Albumin/Globulin [Mass ratio] 0.7 {ratio} Normal [facility] Comment on above: Performed By: #### C MADM, BNP, BMP #### [facility] [address] [place] [address] Dr. Risa Patterson ALP [Catalytic activity/Vol] 66 U/L Normal 46-116 [facility] Comment on above: Performed By: #### C MADM, BNP, BMP #### [facility] [address] [place] [address] Dr. Risa Patterson ALT [Catalytic activity/Vol] 33 U/L Normal 16-63 [facility] Comment on above: Performed By: #### C MADM, BNP, BMP #### [facility] [address] [place] [address] Dr. Risa Patterson Anion gap [Moles/Vol] 10.7 mmol/L Normal [facility] Comment on above: Performed By: #### C MADM, BNP, BMP #### [facility] [address] [place] [address] Dr. Risa Patterson AST [Catalytic activity/Vol] 24 U/L Normal 15-37 [facility] Comment on above: Performed By: #### C MADM, BNP, BMP #### [facility] [address] [place] [address] Dr. Risa Patterson Bilirubin [Mass/Vol] 0.3 mg/dL Normal 0.2-1.0 [facility] Comment on above: Performed By: #### C MADM, BNP, BMP #### [facility] [address] [place] [address] Dr. Risa Patterson Calcium [Mass/Vol] 9.0 mg/dL Normal 8.5-10.1 [facility] Comment on above: Performed By: #### C MADM, BNP, BMP #### [facility] [address] [place] [address] Dr. Risa Patterson Chloride [Moles/Vol] 106 mmol/L Normal 98-107 [facility] Comment on above: Performed By: #### C MADM, BNP, BMP #### [facility] [address] [place] [address] Dr. Risa Patterson CO2 [Moles/Vol] 31.7 mmol/L Normal 21.0-32.0 [facility] Comment on above: Performed By: #### C MADM, BNP, BMP #### [facility] [address] [place] [address] Dr. Risa Patterson Creatinine [Mass/Vol] 1.18 mg/dL Normal 0.70-1.30 [facility] Comment on above: Performed By: #### C MADM, BNP, BMP #### [facility] [address] [place] [address] Dr. Risa Patterson EGFR-AF FIJIAN >60 Normal >=60 [facility] Comment on above: Performed By: #### C MADM, BNP, BMP #### [facility] [address] [place] [address] Dr. Risa Patterson EGFR-NON AF FIJIAN >60 Normal >=60 [facility] Comment on above: Performed By: #### C MADM, BNP, BMP #### [facility] [address] [place] [address] Dr. Risa Patterson Globulin (S) [Mass/Vol] 3.9 g/dL Normal [facility] Comment on above: Performed By: #### C MADM, BNP, BMP #### [facility] [address] [place] [address] Dr. Risa Patterson Glucose [Mass/Vol] 99 mg/dL Normal 74-106 [facility] Comment on above: Performed By: #### C MADM, BNP, BMP #### [facility] [address] [place] [address] Dr. Risa Patterson Potassium [Moles/Vol] 4.4 mmol/L Normal 3.5-5.1 [facility] Comment on above: Performed By: #### C MADM, BNP, BMP #### [facility] [address] [place] [address] Dr. Risa Patterson Protein [Mass/Vol] 6.8 g/dL Normal 6.4-8.2 [facility] Comment on above: Performed By: #### C MADM, BNP, BMP #### [facility] [address] [place] [address] Dr. Risa Patterson Sodium [Moles/Vol] 144 mmol/L Normal 136-145 [facility] Comment on above: Performed By: #### C MADM, BNP, BMP #### [facility] [address] [place] [address] Dr. Risa Patterson Urea nitrogen [Mass/Vol] 17.0 mg/dL Normal 7.0-18.0 [facility] Comment on above: Performed By: #### C MADM, BNP, BMP #### [facility] [address] [place] [address] Dr. Risa Patterson Urea nitrogen/Creatinine [Mass ratio] 14.4 mg/mg Normal [facility] Comment on above: Performed By: #### C MADM, BNP, BMP #### [facility] [address] [place] [address] Dr. Risa Patterson SED RATE WESTERGREN 2021 SED RATE 66 mm/hr Critically high <=20 [facility] Comment on above: Performed By: #### C MADM, BNP, BMP #### [facility] [address] [place] [address] Dr. Risa Patterson CBC AUTO DIFFon 01-02-2022 BASO # 0.1 103/ul Normal 0.0-0.1 [facility] Comment on above: Performed By: #### C MADM, BNP, BMP #### [facility] [address] [place] [address] Dr. Risa Patterson Basophils/100 WBC (Bld) 1.1 % Normal 0.2-2.0 [facility] Comment on above: Performed By: #### C MADM, BNP, BMP #### [facility] [address] [place] [address] Dr. Risa Patterson EO # 0.3 103/ul Normal 0.0-0.7 [facility] Comment on above: Performed By: #### C MADM, BNP, BMP #### [facility] [address] [place] [address] Dr. Risa Patterson Eosinophils/100 WBC (Bld) 7.1 % Critically high 0.9-7.0 [facility] Comment on above: Performed By: #### C MADM, BNP, BMP #### [facility] [address] [place] [address] Dr. Risa Patterson Erythrocyte distribution width (RBC) [Ratio] 17.2 % Critically high 11.0-15.0 [facility] Comment on above: Performed By: #### C MADM, BNP, BMP #### [facility] [address] [place] [address] Dr. Risa Patterson Hematocrit (Bld) [Volume fraction] 34.0 % Critically low 42.0-54.0 [facility] Comment on above: Performed By: #### C MADM, BNP, BMP #### [facility] [address] [place] [address] Dr. Risa Patterson Hemoglobin (Bld) [Mass/Vol] 10.6 g/dL Critically low 14.0-18.0 [facility] Comment on above: Performed By: #### C MADM, BNP, BMP #### [facility] [address] [place] [address] Dr. Risa Patterson IG # 0.02 10e3/ul Normal 0.00-0.03 [facility] Comment on above: Performed By: #### C MADM, BNP, BMP #### [facility] [address] [place] [address] Dr. Risa Patterson IG % 0.4 % Normal 0.0-0.5 [facility] Comment on above: Performed By: #### C MADM, BNP, BMP #### [facility] [address] [place] [address] Dr. Risa Patterson LYMPH # 1.0 103/ul Critically low 1.2-3.8 [facility] Comment on above: Performed By: #### C MADM, BNP, BMP #### [facility] [address] [place] [address] Dr. Risa Patterson Lymphocytes/100 WBC (Bld) 22.9 % Normal 20.5-60.0 [facility] Comment on above: Performed By: #### C MADM, BNP, BMP #### [facility] [address] [place] [address] Dr. Risa Patterson MANUAL DIFF REQ NO Normal [facility] Comment on above: Performed By: #### C MADM, BNP, BMP #### [facility] [address] [place] [address] Dr. Risa Patterson MCH (RBC) [Entitic mass] 31.2 pg Normal 25.9-34.0 [facility] Comment on above: Performed By: #### C MADM, BNP, BMP #### [facility] [address] [place] [address] Dr. Risa Patterson MCHC (RBC) [Mass/Vol] 31.2 g/dL Normal 29.9-35.2 [facility] Comment on above: Performed By: #### C MADM, BNP, BMP #### [facility] [address] [place] [address] Dr. Risa Patterson MCV (RBC) [Entitic vol] 100.0 fL Critically high 80.0-94.0 [facility] Comment on above: Performed By: #### C MADM, BNP, BMP #### [facility] [address] [place] [address] Dr. Risa Patterson MONO # 0.8 103/ul Normal 0.3-0.8 [facility] Comment on above: Performed By: #### C MADM, BNP, BMP #### [facility] [address] [place] [address] Dr. Risa Patterson Monocytes/100 WBC (Bld) 18.7 % Critically high 1.7-12.0 [facility] Comment on above: Performed By: #### C MADM, BNP, BMP #### [facility] [address] [place] [address] Dr. Risa Patterson NEUT # 2.2 103/ul Normal 1.4-6.5 [facility] Comment on above: Performed By: #### C MADM, BNP, BMP #### [facility] [address] [place] [address] Dr. Risa Patterson Neutrophils/100 WBC (Bld) 49.8 % Normal 43.0-75.0 [facility] Comment on above: Performed By: #### C MADM, BNP, BMP #### [facility] [address] [place] [address] Dr. Risa Patterson Platelet mean volume (Bld) [Entitic vol] 10.0 fL Normal 9.5-13.5 [facility] Comment on above: Performed By: #### C MADM, BNP, BMP #### [facility] [address] [place] [address] Dr. Risa Patterson PLT 232 103/ul Normal 150-450 [facility] Comment on above: Performed By: #### C MADM, BNP, BMP #### [facility] [address] [place] [address] Dr. Risa Patterson RBC 3.40 106/ul Critically low 4.70-6.10 [facility] Comment on above: Performed By: #### C MADM, BNP, BMP #### [facility] [address] [place] [address] Dr. Risa Patterson WBC 4.5 103/ul Normal 4.0-11.0 [facility] Comment on above: Performed By: #### C MADM, BNP, BMP #### [facility] [address] [place] [address] Dr. Risa Patterson PROF 14(COMP METB)on 022 Albumin [Mass/Vol] 2.8 g/dL Critically low 3.4-5.0 [facility] Comment on above: Performed By: #### C MREP #### [facility] [address] [place] [address] Dr. Risa Patterson Albumin/Globulin [Mass ratio] 0.8 {ratio} Normal [facility] Comment on above: Performed By: #### C MREP #### [facility] [address] [place] [address] Dr. Risa Patterson ALP [Catalytic activity/Vol] 63 U/L Normal 46-116 [facility] Comment on above: Performed By: #### C MREP #### [facility] [address] [place] [address] Dr. Risa Patterson ALT [Catalytic activity/Vol] 29 U/L Normal 16-63 [facility] Comment on above: Performed By: #### C MREP #### [facility] [address] [place] [address] Dr. Risa Patterson Anion gap [Moles/Vol] 10.7 mmol/L Normal [facility] Comment on above: Performed By: #### C MREP #### [facility] [address] [place] [address] Dr. Risa Patterson AST [Catalytic activity/Vol] 23 U/L Normal 15-37 [facility] Comment on above: Performed By: #### C MREP #### [facility] [address] [place] [address] Dr. Risa Patterson Bilirubin [Mass/Vol] 0.2 mg/dL Normal 0.2-1.0 [facility] Comment on above: Performed By: #### C MREP #### [facility] [address] [place] [address] Dr. Risa Patterson Calcium [Mass/Vol] 8.5 mg/dL Normal 8.5-10.1 [facility] Comment on above: Performed By: #### C MREP #### [facility] [address] [place] [address] Dr. Risa Patterson Chloride [Moles/Vol] 109 mmol/L Critically high 98-107 [facility] Comment on above: Performed By: #### C MREP #### [facility] [address] [place] [address] Dr. Risa Patterson CO2 [Moles/Vol] 28.7 mmol/L Normal 21.0-32.0 [facility] Comment on above: Performed By: #### C MREP #### [facility] [address] [place] [address] Dr. Risa Patterson Creatinine [Mass/Vol] 1.05 mg/dL Normal 0.70-1.30 [facility] Comment on above: Performed By: #### C MREP #### [facility] [address] [place] [address] Dr. Risa Patterson EGFR-AF FIJIAN >60 Normal >=60 [facility] Comment on above: Performed By: #### C MREP #### [facility] [address] [place] [address] Dr. Risa Patterson EGFR-NON AF FIJIAN >60 Normal >=60 [facility] Comment on above: Performed By: #### C MREP #### [facility] [address] [place] [address] Dr. Risa Patterson Globulin (S) [Mass/Vol] 3.5 g/dL Normal [facility] Comment on above: Performed By: #### C MREP #### [facility] [address] [place] [address] Dr. Risa Patterson Glucose [Mass/Vol] 82 mg/dL Normal 74-106 [facility] Comment on above: Performed By: #### C MREP #### [facility] [address] [address] [address] Risa Patterson Potassium [Moles/Vol] 4.5 mmol/L Normal 3.5-5.1 [facility] Comment on above: Performed By: #### C MREP #### [facility] [address] [address] [address] Risa Patterson Protein [Mass/Vol] 6.3 g/dL Critically low 6.4-8.2 [facility] Comment on above: Performed By: #### C MREP #### [facility] [address] [address] [address] Risa Patterson Sodium [Moles/Vol] 144 mmol/L Normal 136-145 [facility] Comment on above: Performed By: #### C MREP #### [facility] [address] [address] [address] Risa Patterson Urea nitrogen [Mass/Vol] 16.0 mg/dL Normal 7.0-18.0 [facility] Comment on above: Performed By: #### C MREP #### [facility] [address] [address] [address] Risa Patterson Urea nitrogen/Creatinine [Mass ratio] 15.2 mg/mg Normal [facility] Comment on above: Performed By: #### C MREP #### [facility] [address] [address] [address] Risa Patterson SED RATE [facility] 2021 SED RATE 42 mm/hr Critically high <=20 [facility] Comment on above: Performed By: #### C MADM, BNP, BMP #### [facility] [address] [address] [address] Risa Patterson CBC W Auto Differential pane l (Bld)on 12-28-2021 Abs Immature Gran <0.10 k/uL [facility] Basophils (Bld) [#/Vol] 0.04 10*3/uL <0.11 k/uL [facility] Basophils/100 WBC (Bld) 0.7 % [facility] Differential cell count method Nom (Bld) Auto [facility] Eosinophils (Bld) [#/Vol] 0.30 10*3/uL <0.46 k/uL [facility] Eosinophils/100 WBC (Bld) 5.5 % [facility] Erythrocyte distribution width (RBC) [Ratio] 18.1 % High 11.5 - 15.0 % [facility] Hematocrit (Bld) [Volume fraction] 34.6 % Low 39.0 - 51.0 % [facility] Hemoglobin (Bld) [Mass/Vol] 10.9 g/dL Low 13.0 - 17.0 g/dL [facility] Immature Gran % 0.4 % [facility] Lymphocytes (Bld) [#/Vol] 0.95 10*3/uL Low 1.00 - 4.00 k/uL [facility] Lymphocytes/100 WBC (Bld) 17.4 % [facility] MCH (RBC) [Entitic mass] 31.3 pg 26.0 - 34.0 pg [facility] MCHC (RBC) [Mass/Vol] 31.5 g/dL 30.5 - 36.0 g/dL [facility] MCV (RBC) [Entitic vol] 99.4 fL 80.0 - 100.0 fL [facility] Monocytes (Bld) [#/Vol] 0.69 10*3/uL <0.87 k/uL [facility] Monocytes/100 WBC (Bld) 12.7 % [facility] Neutrophils (Bld) [#/Vol] 3.45 10*3/uL 1.45 - 7.50 k/uL [facility] Neutrophils/100 WBC (Bld) 63.3 % [facility] Nucleated RBC (Bld) [#/Vol] <0.01 k/uL [facility] Nucleated RBC/100 WBC (Bld) [Ratio] 0.0 /100 WBC [facility] Platelet mean volume (Bld) [Entitic vol] 10.0 fL 9.0 - 12.7 fL [facility] Platelets (Bld) [#/Vol] 230 10*3/uL 150 - 400 k/uL [facility] RBC (Bld) [#/Vol] 3.48 10*6/uL Low 4.20 - 6.00 m/uL [facility] WBC (Bld) [#/Vol] 5.45 10*3/uL 3.70 - 11.00 k/uL [facility] Comprehensive metabolic 2000 panelon 12-28-2021 Albumin [Mass/Vol] 3.5 g/dL Low 3.9 - 4.9 g/dL [facility] ALP [Catalytic activity/Vol] 69 U/L 38 - 113 U/L [facility] ALT [Catalytic activity/Vol] 23 U/L 10 - 54 U/L [facility] Anion gap [Moles/Vol] 6 mmol/L Low 9 - 18 mmol/L [facility] AST [Catalytic activity/Vol] 27 U/L 14 - 40 U/L [facility] Bilirubin [Mass/Vol] 0.4 mg/dL 0.2 - 1 .3 mg/dL [facility] Calcium [Mass/Vol] 9.2 mg/dL 8.5 - 10. 2 mg/dL [facility] Chloride [Moles/Vol] 110 mmol/L High 97 - 10 5 mmol/L [facility] CO2 [Moles/Vol] 27 mmol/L 22 - 30 mmol/L [facility] Creatinine [Mass/Vol] 1.05 mg/dL 0.73 - 1.22 mg/dL [facility] Estimated Glomerular Filtration Rate 81 mL/min/1.73m >=60 mL/min/1.7 3m [facility] Glucose [Mass/Vol] 109 mg/dL High 74 - 99 mg/dL [facility] Potassium [Moles/Vol] 3.9 mmol/L 3.7 - 5.1 mmol/L [facility] Protein [Mass/Vol] 6.0 g/dL Low 6.3 - 8.0 g/dL [facility] Sodium [Moles/Vol] 143 mmol/L 136 - 144 mmol/L [facility] Urea nitrogen [Mass/Vol] 17 mg/dL 9 - 24 mg/dL [facility] LD LACTATE DEHYDROon 022 LDH [Catalytic activity/Vol] 270 U/L High 135 - 225 U/L [facility] CBC AUTO DIFFon 12-15-2021 BASO # 0.0 103/ul Normal 0.0-0.1 [facility] Comment on above: Performed By: #### C BC #### [facility] [address] [address] [address] Risa Patterson Basophils/100 WBC (Bld) 0.7 % Normal 0.2-2.0 [facility] Comment on above: Performed By: #### C BC #### [facility] [address] [place] [address] Dr. Risa Patterson EO # 0.2 103/ul Normal 0.0-0.7 [facility] Comment on above: Performed By: #### C BC #### [facility] [address] [place] [address] Dr. Risa Patterson Eosinophils/100 WBC (Bld) 3.6 % Normal 0.9-7.0 [facility] Comment on above: Performed By: #### C BC #### [facility] [address] [place] [address] Dr. Risa Patterson Erythrocyte distribution width (RBC) [Ratio] 17.4 % Critically high 11.0-15.0 [facility] Comment on above: Performed By: #### C BC #### [facility] [address] [place] [address] Dr. Risa Patterson Hematocrit (Bld) [Volume fraction] 36.2 % Critically low 42.0-54.0 [facility] Comment on above: Performed By: #### C BC #### [facility] [address] [place] [address] Dr. Risa Patterson Hemoglobin (Bld) [Mass/Vol] 11.3 g/dL Critically low 14.0-18.0 [facility] Comment on above: Performed By: #### C BC #### [facility] [address] [place] [address] Dr. Risa Patterson IG # 0.02 10e3/ul Normal 0.00-0.03 [facility] Comment on above: Performed By: #### C BC #### [facility] [address] [place] [address] Dr. Risa Patterson IG % 0.5 % Normal 0.0-0.5 [facility] Comment on above: Performed By: #### C BC #### [facility] [address] [place] [address] Dr. Risa Patterson LYMPH # 0.9 103/ul Critically low 1.2-3.8 [facility] Comment on above: Performed By: #### C BC #### [facility] [address] [place] [address] Dr. Risa Patterson Lymphocytes/100 WBC (Bld) 20.0 % Critically low 20.5-60.0 [facility] Comment on above: Performed By: #### C BC #### [facility] [address] [place] [address] Dr. Risa Patterson MANUAL DIFF REQ NO Normal [facility] Comment on above: Performed By: #### C BC #### [facility] [address] [place] [address] Dr. Risa Patterson MCH (RBC) [Entitic mass] 30.9 pg Normal 25.9-34.0 [facility] Comment on above: Performed By: #### C BC #### [facility] [address] [place] [address] Dr. Risa Patterson MCHC (RBC) [Mass/Vol] 31.2 g/dL Normal 29.9-35.2 [facility] Comment on above: Performed By: #### C BC #### [facility] [address] [place] [address] Dr. Risa Patterson MCV (RBC) [Entitic vol] 98.9 fL Critically high 80.0-94.0 [facility] Comment on above: Performed By: #### C BC #### [facility] [address] [place] [address] Dr. Risa Patterson MONO # 0.2 103/ul Critically low 0.3-0.8 [facility] Comment on above: Performed By: #### C BC #### [facility] [address] [place] [address] Dr. Risa Patterson Monocytes/100 WBC (Bld) 5.4 % Normal 1.7-12.0 [facility] Comment on above: Performed By: #### C BC #### [facility] [address] [place] [address] Dr. Risa Patterson NEUT # 3.1 103/ul Normal 1.4-6.5 [facility] Comment on above: Performed By: #### C BC #### [facility] [address] [place] [address] Dr. Risa Patterson Neutrophils/100 WBC (Bld) 69.8 % Normal 43.0-75.0 [facility] Comment on above: Performed By: #### C BC #### [facility] [address] [place] [address] Dr. Risa Patterson Platelet mean volume (Bld) [Entitic vol] 9.7 fL Normal 9.5-13.5 [facility] Comment on above: Performed By: #### C BC #### [facility] [address] [place] [address] Dr. Risa Patterson PLT 235 103/ul Normal 150-450 [facility] Comment on above: Performed By: #### C BC #### [facility] [address] [place] [address] Dr. Risa Patterson RBC 3.66 106/ul Critically low 4.70-6.10 [facility] Comment on above: Performed By: #### C BC #### [facility] [address] [place] [address] Dr. Risa Patterson WBC 4.4 103/ul Normal 4.0-11.0 [facility] Comment on above: Performed By: #### C BC #### [facility] [address] [place] [address] Dr. Risa Patterson FERRITINon 12-15-2021 Ferritin [Mass/Vol] 285.0 ng/mL Normal 26.0-388.0 [facility] Comment on above: Performed By: #### F ERR, VITB12 #### [facility] [address] [place] [address] Dr. Risa Patterson VITAMIN B12on 12-15-2021 Cobalamin (Vitamin B12) [Mass/Vol] 460.0 pg/mL Normal 193.0-986. 0 [facility] Comment on above: Performed By: #### F ERR, VITB12 #### [facility] [address] [place] [address] Dr. Risa Patterson CBC AUTO DIFFon 11-29-2021 BASO # 0.0 103/ul Normal 0.0-0.1 [facility] Comment on above: Performed By: #### C MREP #### [facility] [address] [place] [address] Dr. Risa Patterson Basophils/100 WBC (Bld) 0.7 % Normal 0.2-2.0 [facility] Comment on above: Performed By: #### C MREP #### [facility] [address] [place] [address] Dr. Risa Patterson EO # 0.3 103/ul Normal 0.0-0.7 [facility] Comment on above: Performed By: #### C MREP #### [facility] [address] [place] [address] Dr. Risa Patterson Eosinophils/100 WBC (Bld) 6.9 % Normal 0.9-7.0 [facility] Comment on above: Performed By: #### C MREP #### [facility] [address] [place] [address] Dr. Risa Patterson Erythrocyte distribution width (RBC) [Ratio] 17.0 % Critically high 11.0-15.0 [facility] Comment on above: Performed By: #### C MREP #### [facility] [address] [place] [address] Dr. Risa Patterson Hematocrit (Bld) [Volume fraction] 35.4 % Critically low 42.0-54.0 [facility] Comment on above: Performed By: #### C MREP #### [facility] [address] [place] [address] Dr. Risa Patterson Hemoglobin (Bld) [Mass/Vol] 11.0 g/dL Critically low 14.0-18.0 [facility] Comment on above: Performed By: #### C MREP #### [facility] [address] [place] [address] Dr. Risa Patterson IG # 0.01 10e3/ul Normal 0.00-0.03 [facility] Comment on above: Performed By: #### C MREP #### [facility] [address] [address] [address] Risa Patterson IG % 0.2 % Normal 0.0-0.5 [facility] Comment on above: Performed By: #### C MREP #### [facility] [address] [place] [address] Dr. Risa Patterson LYMPH # 0.9 103/ul Critically low 1.2-3.8 [facility] Comment on above: Performed By: #### C MREP #### [facility] [address] [place] [address] Dr. Risa Patterson Lymphocytes/100 WBC (Bld) 19.5 % Critically low 20.5-60.0 [facility] Comment on above: Performed By: #### C MREP #### [facility] [address] [place] [address] Dr. Risa Patterson MANUAL DIFF REQ NO Normal [facility] Comment on above: Performed By: #### C MREP #### [facility] [address] [place] [address] Dr. Risa Patterson MCH (RBC) [Entitic mass] 30.5 pg Normal 25.9-34.0 [facility] Comment on above: Performed By: #### C MREP #### [facility] [address] [place] [address] Dr. Risa Patterson MCHC (RBC) [Mass/Vol] 31.1 g/dL Normal 29.9-35.2 [facility] Comment on above: Performed By: #### C MREP #### [facility] [address] [place] [address] Dr. Risa Patterson MCV (RBC) [Entitic vol] 98.1 fL Critically high 80.0-94.0 [facility] Comment on above: Performed By: #### C MREP #### [facility] [address] [place] [address] Dr. Risa Patterson MONO # 0.6 103/ul Normal 0.3-0.8 [facility] Comment on above: Performed By: #### C MREP #### [facility] [address] [address] [address] Risa Patterson Monocytes/100 WBC (Bld) 14.0 % Critically high 1.7-12.0 [facility] Comment on above: Performed By: #### C MREP #### [facility] [address] [place] [address] Dr. Risa Patterson NEUT # 2.6 103/ul Normal 1.4-6.5 [facility] Comment on above: Performed By: #### C MREP #### [facility] [address] [place] [address] Dr. Risa Patterson Neutrophils/100 WBC (Bld) 58.7 % Normal 43.0-75.0 [facility] Comment on above: Performed By: #### C MREP #### [facility] [address] [place] [address] Dr. Risa Patterson Platelet mean volume (Bld) [Entitic vol] 9.9 fL Normal 9.5-13.5 [facility] Comment on above: Performed By: #### C MREP #### [facility] [address] [place] [address] Dr. Risa Patterson PLT 200 103/ul Normal 150-450 [facility] Comment on above: Performed By: #### C MREP #### [facility] [address] [place] [address] Dr. Risa Patterson RBC 3.61 106/ul Critically low 4.70-6.10 [facility] Comment on above: Performed By: #### C MREP #### [facility] [address] [place] [address] Dr. Risa Patterson WBC 4.4 103/ul Normal 4.0-11.0 [facility] Comment on above: Performed By: #### C MREP #### [facility] [address] [place] [address] Dr. Risa Patterson PROF CHEM 8 (BAS METB)on Anion gap [Moles/Vol] 12.3 mmol/L Normal [facility] Comment on above: Performed By: #### C MADM, BNP, BMP #### [facility] [address] [address] [address] Risa Patterson Calcium [Mass/Vol] 8.9 mg/dL Normal 8.5-10.1 [facility] Comment on above: Performed By: #### C MADM, BNP, BMP #### [facility] [address] [address] [address] Risa Patterson Chloride [Moles/Vol] 109 mmol/L Critically high 98-107 [facility] Comment on above: Performed By: #### C MADM, BNP, BMP #### [facility] [address] [address] [address] Risa Patterson CO2 [Moles/Vol] 27.1 mmol/L Normal 21.0-32.0 [facility] Comment on above: Performed By: #### C MADM, BNP, BMP #### [facility] [address] [place] [address] Dr. Risa Patterson Creatinine [Mass/Vol] 1.04 mg/dL Normal 0.70-1.30 [facility] Comment on above: Performed By: #### C MADM, BNP, BMP #### [facility] [address] [place] [address] Dr. Risa Patterson EGFR-AF FIJIAN >60 Normal >=60 [facility] Comment on above: Performed By: #### C MADM, BNP, BMP #### [facility] [address] [place] [address] Dr. Risa Patterson EGFR-NON AF FIJIAN >60 Normal >=60 [facility] Comment on above: Performed By: #### C MADM, BNP, BMP #### [facility] [address] [place] [address] Dr. Risa Patterson Glucose [Mass/Vol] 112 mg/dL Critically high 74-106 [facility] Comment on above: Performed By: #### C MADM, BNP, BMP #### [facility] [address] [place] [address] Dr. Risa Patterson Potassium [Moles/Vol] 4.4 mmol/L Normal 3.5-5.1 [facility] Comment on above: Performed By: #### C MADM, BNP, BMP #### [facility] [address] [address] [address] Risa Patterson Sodium [Moles/Vol] 144 mmol/L Normal 136-145 [facility] Comment on above: Performed By: #### C MADM, BNP, BMP #### [facility] [address] [address] [address] Risa Patterson Urea nitrogen [Mass/Vol] 19.0 mg/dL Critically high 7.0-18.0 [facility] Comment on above: Performed By: #### C MADM, BNP, BMP #### [facility] [address] [address] [address] Risa Patterson Urea nitrogen/Creatinine [Mass ratio] 18.3 mg/mg Normal [facility] Comment on above: Performed By: #### C MADM, BNP, BMP #### [facility] [address] [address] [address] Risa Patterson TSHon 11-29-2021 TSH 1.618 uIU/mL Normal 0.358-3.74 0 [facility] Comment on above: Performed By: #### C MADM, BNP, BMP #### [facility] [address] [place] [address] Dr. Risa Patterson ECHOCARDIO M/2D COMPLETEon 0 10-04-2021 ECHOCARDIO M/2D COMPLETE Patient: ELENA FELIX Exam Date: 10/04/2021 : 1960 Gender:M Ordering : NIKKIE SIMONMARLORUDY Admission #: [id number] Family : DR SILVANA LUNDBERG M.D. Order #: [id number] CLICK HERE TO VIEW EXAM ECHOCARDIOGRAM REPORT [...] Area(A4C): 20.40 cm2 Left Atrium Systolic Volume(A2C): 59938 mm3 Left Atrium Systolic Volume(A4C): 05517 mm3 Mitral Valve MV E to A [...] Leung M.D. on 10/04/2021 at 19:44 Normal [facility] PROF CHEM 8 (BAS METB)on Anion gap [Moles/Vol] 12.3 mmol/L Normal [facility] Comment on above: Performed By: #### C MADM, BNP, BMP #### [facility] [address] [place] [address] Dr. Risa Patterson Calcium [Mass/Vol] 9.3 mg/dL Normal 8.5-10.1 [facility] Comment on above: Performed By: #### C MADM, BNP, BMP #### [facility] [address] [place] [address] Dr. Risa Patterson Chloride [Moles/Vol] 105 mmol/L Normal 98-107 [facility] Comment on above: Performed By: #### C MADM, BNP, BMP #### [facility] [address] [place] [address] Dr. Risa Patterson CO2 [Moles/Vol] 28.2 mmol/L Normal 21.0-32.0 [facility] Comment on above: Performed By: #### C MADM, BNP, BMP #### [facility] [address] [place] [address] Dr. Risa Patterson Creatinine [Mass/Vol] 1.54 mg/dL Critically high 0.70-1.30 [facility] Comment on above: Performed By: #### C MADM, BNP, BMP #### [facility] [address] [place] [address] Dr. Risa Patterson EGFR-AF FIJIAN 56 mL/min/1.73m2 Critically low >=60 [facility] Comment on above: Performed By: #### C MADM, BNP, BMP #### [facility] [address] [place] [address] Dr. Risa Patterson EGFR-NON AF FIJIAN 46 mL/min/1.73m2 Critically low >=60 [facility] Comment on above: Performed By: #### C MADM, BNP, BMP #### [facility] [address] [place] [address] Dr. Risa Patterson Glucose [Mass/Vol] 86 mg/dL Normal 74-106 [facility] Comment on above: Performed By: #### C MADM, BNP, BMP #### [facility] [address] [place] [address] Dr. Risa Patterson Potassium [Moles/Vol] 4.5 mmol/L Normal 3.5-5.1 [facility] Comment on above: Performed By: #### C MADM, BNP, BMP #### [facility] [address] [place] [address] Dr. Risa Patterson Sodium [Moles/Vol] 141 mmol/L Normal 136-145 [facility] Comment on above: Performed By: #### C MADM, BNP, BMP #### [facility] [address] [place] [address] Dr. Risa Patterson Urea nitrogen [Mass/Vol] 18.0 mg/dL Normal 7.0-18.0 [facility] Comment on above: Performed By: #### C MADM, BNP, BMP #### [facility] [address] [place] [address] Dr. Risa Patterson Urea nitrogen/Creatinine [Mass ratio] 11.7 mg/mg Normal [facility] Comment on above: Performed By: #### C MADM, BNP, BMP #### [facility] [address] [place] [address] Dr. Risa Patterson BNPon 09-20-2021 Natriuretic peptide B (Bld) [Mass/Vol] 186.0 pg/mL Normal <=900.0 [facility] Comment on above: Performed By: #### C MADM, BNP, BMP #### [facility] [address] [place] [address] Dr. Risa Patterson CARDIAC ALICIA 3-6on 2 CK [Catalytic activity/Vol] 133 U/L Normal 39-308 [facility] Comment on above: Performed By: #### C MREP #### [facility] [address] [place] [address] Dr. Risa Patterson CK.MB [Mass/Vol] 1.54 ng/mL Normal <=3.60 [facility] Comment on above: Performed By: #### C MREP #### [facility] [address] [place] [address] Dr. Risa Patterson HSTROP 11.9 pg/mL Normal 4.0-76.1 [facility] Comment on above: Result Comment: CUT- OFF POINTS HAVE BEEN ESTABLISHED BASED ON THE FOURTH UNIVERSAL DEFINITIONS OF MYOCARDIAL INFARCTION. THE UPPER REFERENCE LIMIT (URL) OF TROPONIN, DEFINED THE 99TH PERCENTILE OF cTnI DISTRIBUTION IN A REFERENCE POPULATION, HAS BEEN CONFIRMED THE DECISION THRESHOLD FOR OK DIAGNOSIS. Performed By: #### C MREP #### [facility] [address] [place] [address] Dr. Risa Patterson CARDIAC ALICIA ADMITon 022 CK [Catalytic activity/Vol] 136 U/L Normal 39-308 [facility] Comment on above: Performed By: #### C MADM, BNP, BMP #### [facility] [address] [place] [address] Dr. Risa Patterson CK.MB [Mass/Vol] 1.37 ng/mL Normal <=3.60 [facility] Comment on above: Performed By: #### C MADM, BNP, BMP #### [facility] [address] [place] [address] Dr. Risa Patterson HSTROP 12.1 pg/mL Normal 4.0-76.1 [facility] Comment on above: Result Comment: CUT- OFF POINTS HAVE BEEN ESTABLISHED BASED ON THE FOURTH UNIVERSAL DEFINITIONS OF MYOCARDIAL INFARCTION. THE UPPER REFERENCE LIMIT (URL) OF TROPONIN, DEFINED THE 99TH PERCENTILE OF cTnI DISTRIBUTION IN A REFERENCE POPULATION, HAS BEEN CONFIRMED THE DECISION THRESHOLD FOR OK DIAGNOSIS. Performed By: #### C MADM, BNP, BMP #### [facility] [address] [place] [address] Dr. Risa Patterson DUC 129 ng/mL Critically high 16-96 [facility] Comment on above: Performed By: #### C MADM, BNP, BMP #### [facility] [address] [place] [address] Dr. Risa Patterson CBC AUTO DIFFon 09-20-2021 BASO # 0.1 103/ul Normal 0.0-0.1 [facility] Comment on above: Performed By: #### C MREP #### [facility] [address] [place] [address] Dr. Risa Patterson Basophils/100 WBC (Bld) 0.8 % Normal 0.2-2.0 [facility] Comment on above: Performed By: #### C MREP #### [facility] [address] [place] [address] Dr. Risa Patterson EO # 0.5 103/ul Normal 0.0-0.7 [facility] Comment on above: Performed By: #### C MREP #### [facility] [address] [place] [address] Dr. Risa Patterson Eosinophils/100 WBC (Bld) 5.1 % Normal 0.9-7.0 [facility] Comment on above: Performed By: #### C MREP #### [facility] [address] [place] [address] Dr. Risa Patterson Erythrocyte distribution width (RBC) [Ratio] 14.5 % Normal 11.0-15.0 [facility] Comment on above: Performed By: #### C MREP #### [facility] [address] [place] [address] Dr. Risa Patterson Hematocrit (Bld) [Volume fraction] 40.7 % Critically low 42.0-54.0 [facility] Comment on above: Performed By: #### C MREP #### [facility] [address] [place] [address] Dr. Risa Patterson Hemoglobin (Bld) [Mass/Vol] 12.8 g/dL Critically low 14.0-18.0 [facility] Comment on above: Performed By: #### C MREP #### [facility] [address] [place] [address] Dr. Risa Patterson IG # 0.05 10e3/ul Critically high 0.00-0.03 [facility] Comment on above: Performed By: #### C MREP #### [facility] [address] [place] [address] Dr. Risa Patterson IG % 0.5 % Normal 0.0-0.5 [facility] Comment on above: Performed By: #### C MREP #### [facility] [address] [place] [address] Dr. Risa Patterson LYMPH # 1.7 103/ul Normal 1.2-3.8 [facility] Comment on above: Performed By: #### C MREP #### [facility] [address] [place] [address] Dr. Risa Patterson Lymphocytes/100 WBC (Bld) 15.8 % Critically low 20.5-60.0 [facility] Comment on above: Performed By: #### C MREP #### [facility] [address] [place] [address] Dr. Risa Patterson MANUAL DIFF REQ NO Normal [facility] Comment on above: Performed By: #### C MREP #### [facility] [address] [place] [address] Dr. Risa Patterson MCH (RBC) [Entitic mass] 30.3 pg Normal 25.9-34.0 [facility] Comment on above: Performed By: #### C MREP #### [facility] [address] [place] [address] Dr. Risa Patterson MCHC (RBC) [Mass/Vol] 31.4 g/dL Normal 29.9-35.2 [facility] Comment on above: Performed By: #### C MREP #### [facility] [address] [place] [address] Dr. Risa Patterson MCV (RBC) [Entitic vol] 96.4 fL Critically high 80.0-94.0 [facility] Comment on above: Performed By: #### C MREP #### [facility] [address] [place] [address] Dr. Risa Patterson MONO # 1.1 103/ul Critically high 0.3-0.8 [facility] Comment on above: Performed By: #### C MREP #### [facility] [address] [place] [address] Dr. Risa Patterson Monocytes/100 WBC (Bld) 10.7 % Normal 1.7-12.0 [facility] Comment on above: Performed By: #### C MREP #### [facility] [address] [place] [address] Dr. Risa Patterson NEUT # 7.1 103/ul Critically high 1.4-6.5 [facility] Comment on above: Performed By: #### C MREP #### [facility] [address] [place] [address] Dr. Risa Patterson Neutrophils/100 WBC (Bld) 67.1 % Normal 43.0-75.0 [facility] Comment on above: Performed By: #### C MREP #### [facility] [address] [place] [address] Dr. Risa Patterson Platelet mean volume (Bld) [Entitic vol] 9.5 fL Normal 9.5-13.5 [facility] Comment on above: Performed By: #### C MREP #### [facility] [address] [place] [address] Dr. Risa Patterson PLT 317 103/ul Normal 150-450 [facility] Comment on above: Performed By: #### C MREP #### [facility] [address] [place] [address] Dr. Risa Patterson RBC 4.22 106/ul Critically low 4.70-6.10 [facility] Comment on above: Performed By: #### C MREP #### [facility] [address] [place] [address] Dr. Risa Patterson WBC 10.6 103/ul Normal 4.0-11.0 [facility] Comment on above: Performed By: #### C MREP #### [facility] [address] [place] [address] Dr. Risa Patterson CTA CHEST WO W [...] MAJOR REA Date: 2021-09-20 08:07 Normal [facility] Covid-19 PCR (CVDTB)on 08-23 SARS-CoV-2 (COVID-19) RNA SAMMY+probe Ql (Unsp spec) Not detected Normal NOT DETECTED [facility] Comment on above: Result Comment: When diagnostic [...] for this test is supported by the Speech Assistant of Health and Human Service's declaration that [...] By: #### C MADM, BNP, BMP #### [facility] [address] [place] [address] Dr. Risa Patterson INFLUENZA A AND B AGon 09-20 INFLUANEGH SEE BELOW Normal [facility] Comment on above: Result Comment: Nega tive for Flu A protein angiten. Infection due to Flu A cannot be ruled out. Flu A angiten in the sample may be below the detection limit of the test. Performed By: #### C MREP #### [facility] [address] [place] [address] Dr. Risa Patterson INFLUBNEGH SEE BELOW Normal [facility] Comment on above: Result Comment: Nega tive for Flu B protein antigen. Infection due to Flu B cannot be ruled out. Flu B antigen in the sample may be below the detection limit of the test. Performed By: #### C MREP #### [facility] [address] [place] [address] Dr. Risa Patterson INFLUENZA A AG Negative Normal NEGATIVE SEE COMMENT [facility] Comment on above: Performed By: #### C MREP #### [facility] [address] [place] [address] Dr. Risa Patterson INFLUENZA B AG Negative Normal NEGATIVE SEE COMMENT [facility] Comment on above: Performed By: #### C MREP #### [facility] [address] [place] [address] Dr. Risa Patterson INTERNAL CONTROLS Within Normal Limits Normal Wi thin Normal Limits [facility] Comment on above: Performed By: #### C MREP #### [facility] [address] [place] [address] Dr. Risa Patterson PROF CHEM 8 (BAS METB)on Anion gap [Moles/Vol] 15.5 mmol/L Normal [facility] Comment on above: Performed By: #### C MADM, BNP, BMP #### [facility] [address] [place] [address] Dr. Risa Patterson Calcium [Mass/Vol] 9.0 mg/dL Normal 8.5-10.1 [facility] Comment on above: Performed By: #### C MADM, BNP, BMP #### [facility] [address] [address] [address] Risa Patterson Chloride [Moles/Vol] 104 mmol/L Normal 98-107 [facility] Comment on above: Performed By: #### C MADM, BNP, BMP #### [facility] [address] [place] [address] Dr. Risa Patterson CO2 [Moles/Vol] 25.2 mmol/L Normal 21.0-32.0 [facility] Comment on above: Performed By: #### C MADM, BNP, BMP #### [facility] [address] [place] [address] Dr. Rsia Patterson Creatinine [Mass/Vol] 1.27 mg/dL Normal 0.70-1.30 [facility] Comment on above: Performed By: #### C MADM, BNP, BMP #### [facility] [address] [place] [address] Dr. Risa Patterson EGFR-AF FIJIAN >60 Normal >=60 [facility] Comment on above: Performed By: #### C MADM, BNP, BMP #### [facility] [address] [place] [address] Dr. Risa Patterson EGFR-NON AF FIJIAN 58 mL/min/1.73m2 Critically low >=60 [facility] Comment on above: Performed By: #### C MADM, BNP, BMP #### [facility] [address] [place] [address] Dr. Risa Patterson Glucose [Mass/Vol] 138 mg/dL Critically high 74-106 [facility] Comment on above: Performed By: #### C MADM, BNP, BMP #### [facility] [address] [place] [address] Dr. Risa Patterson Potassium [Moles/Vol] 3.7 mmol/L Normal 3.5-5.1 [facility] Comment on above: Performed By: #### C MADM, BNP, BMP #### [facility] [address] [place] [address] Dr. Risa Patterson Sodium [Moles/Vol] 141 mmol/L Normal 136-145 [facility] Comment on above: Performed By: #### C MADM, BNP, BMP #### [facility] [address] [address] [address] Risa Patterson Urea nitrogen [Mass/Vol] 19.0 mg/dL Critically high 7.0-18.0 [facility] Comment on above: Performed By: #### C MADM, BNP, BMP #### [facility] [id number] [address] Risa Patterson Urea nitrogen/Creatinine [Mass ratio] 15.0 mg/mg Normal [facility] Comment on above: Performed By: #### C MADM, BNP, BMP #### [facility] [id number] Risa Patterson XR CHEST 1 Von [...] by: ANGELES NASSAR Date: 2021-09-20 06:53 Normal [facility] US ASHLEY DOP LEG LTon 09-15-19 US [...] Findings called to ordering provider by the lead radiation therapist at time of imaging. Electronically authenticated by: ASHER SOLANO Date: 2021-09-14 14:25 Normal [facility] Cardiovascular Lab Reporton 06-25-2021 Cardiovascular Lab Report [facility] Patient Name: Elena Felix [facility] MR #: [id number] Physician: Nikkie Department of MD [facility] Service Date: 06/23/2021 Division of Birthdate: 1960 Cardiology Room #: CC Adult Cardiovascular Services [facility] [address] [place], [place] [address] Cardiovascular Laboratory Report Procedures: 1. Right heart [...] Trejo MD Date Trans: 06/25/2021 03:01 P/ [id number] cc: Renato Lundberg M.D. [address] [place] [address] [address] [facility] [address] Normal [facility] Vital Signs Date Time Vital Sign Value Performing Clinician Facility 02-05-2023 12:48-0400 Body weight 129.73 kg Austin Clark MD Work Phone: [facility] 11-17-2022 10:05-0400 Diastolic blood pressure 74 mm[Hg] Tricia Howard MD Work Phone: [facility] 11-17-2022 10:05-0400 Heart rate 62 /min Tricia Howard MD Work Phone: [facility] 11-17-2022 10:05-0400 Systolic blood pressure 107 mm[Hg] Tricia Howard MD Work Phone: [facility] 11-17-2022 09:58-0400 Body weight 132 kg Tricia Howard MD Work Phone: [facility] 11-17-2022 09:58-0400 SaO2% (BldA) [Mass fraction] 97 % Tricia Howard MD Work Phone: [facility] 10-31-2022 11:00-0400 Body height 185.42 cm Silvana Lundberg Other [facility] Other 10-31-2022 11:00-0400 Body mass index (BMI) [Ratio] 39.58 kg/m2 Silvana Lundberg Other [facility] Other 10-31-2022 11:00-0400 Body temperature 97.9 [degF] Silvana Lundberg Other [facility] Other 10-31-2022 11:00-0400 Body weight 136.08 kg Silvana Lundberg Other [facility] Other 10-31-2022 11:00-0400 Diastolic blood pressure 49 mm[Hg] Silvana Lundberg Other [facility] Other 10-31-2022 11:00-0400 Systolic blood pressure 91 mm[Hg] Silvana Lundberg Other [facility] Other 10-16-2022 14:45-0400 Body height 185.42 cm Silvana Lundberg Other [facility] Other 10-16-2022 14:45-0400 Body mass index (BMI) [Ratio] 38.39 kg/m2 Silvana Lundberg Other [facility] Other 10-16-2022 14:45-0400 Body weight 132 kg Silvana Lundberg Other [facility] Other 10-16-2022 14:45-0400 Diastolic blood pressure 62 mm[Hg] Silvana Lundberg Other [facility] Other 10-16-2022 14:45-0400 Systolic blood pressure 89 mm[Hg] Silvana Lundberg Other [facility] Other 10-06-2022 08:23-0400 Body height 188 cm Anna North ADMISSIONS SUPERVISOR.TELEPHONE WORKER Work Phone: [facility] 10-06-2022 08:23-0400 Body weight 131.54 kg Anna North ADMISSIONS SUPERVISOR.TELEPHONE WORKER Work Phone: [facility] 10-06-2022 08:23-0400 Diastolic blood pressure 59 mm[Hg] Anna North ADMISSIONS SUPERVISOR.TELEPHONE WORKER Work Phone: [facility] 10-06-2022 08:23-0400 Heart rate 83 /min Anna North ADMISSIONS SUPERVISOR.TELEPHONE WORKER Work Phone: [facility] 10-06-2022 08:23-0400 SaO2% (BldA) [Mass fraction] 95 % Anna North ADMISSIONS SUPERVISOR.TELEPHONE WORKER Work Phone: [facility] 10-06-2022 08:23-0400 Systolic blood pressure 106 mm[Hg] Anna North ADMISSIONS SUPERVISOR.TELEPHONE WORKER Work Phone: [facility] 08-16-2022 08:14-0400 Diastolic blood pressure 78 mm[Hg] Tricia Howard MD Work Phone: [facility] 08-16-2022 08:14-0400 Systolic blood pressure 114 mm[Hg] Tricia Howard MD Work Phone: [facility] 08-16-2022 08:10-0400 Body height 188 cm Tricia Howard MD Work Phone: [facility] 08-16-2022 08:10-0400 Body weight 132.36 kg Tricia Howard MD Work Phone: [facility] 08-16-2022 08:10-0400 Heart rate 89 /min Tricia Howard MD Work Phone: [facility] 08-16-2022 08:10-0400 SaO2% (BldA) [Mass fraction] 96 % Tricia Howard MD Work Phone: [facility] 05-08-2022 10:00-0500 Body height 185.42 cm Silvana Lundberg Other [facility] Other 05-08-2022 10:00-0500 Body mass index (BMI) [Ratio] 39.71 kg/m2 Silvana Lundberg Other [facility] Other 05-08-2022 10:00-0500 Body weight 136.53 kg Silvana Lundberg Other [facility] Other 05-08-2022 10:00-0500 Diastolic blood pressure 72 mm[Hg] Silvana Lundberg Other [facility] Other 05-08-2022 10:00-0500 SaO2% (BldA) [Mass fraction] 97 % Silvana Lundberg Other [facility] Other 05-08-2022 10:00-0500 Systolic blood pressure 112 mm[Hg] Silvana Lundberg Other [facility] Other 01-18-2022 09:54-0400 Body height 190.5 cm Merly Marti MD Work Phone: [facility] 01-18-2022 09:54-0400 Body temperature 97.3 [degF] Merly Marti MD Work Phone: [facility] 01-18-2022 09:54-0400 Body weight 131.91 kg Merly Marti MD Work Phone: [facility] 01-18-2022 09:54-0400 Diastolic blood pressure 71 mm[Hg] Merly Marti MD Work Phone: [facility] 01-18-2022 09:54-0400 Heart rate 92 /min Merly Marti MD Work Phone: [facility] 01-18-2022 09:54-0400 Respiratory rate 18 /min Merly Marti MD Work Phone: [facility] 01-18-2022 09:54-0400 SaO2% (BldA) [Mass fraction] 97 % Merly Marti MD Work Phone: [facility] 01-18-2022 09:54-0400 Systolic blood pressure 122 mm[Hg] Merly Marti MD Work Phone: [facility] 12-28-2021 14:38-0400 Body height 190.5 cm Merly Marti MD Work Phone: [facility] 12-28-2021 14:38-0400 Body temperature 97.2 [degF] Merly Marti MD Work Phone: [facility] 12-28-2021 14:38-0400 Body weight 135.53 kg Merly Marti MD Work Phone: [facility] 12-28-2021 14:38-0400 Diastolic blood pressure 66 mm[Hg] Merly Marti MD Work Phone: [facility] 12-28-2021 14:38-0400 Heart rate 72 /min Merly Marti MD Work Phone: [facility] 12-28-2021 14:38-0400 Respiratory rate 18 /min Merly Marti MD Work Phone: [facility] 12-28-2021 14:38-0400 SaO2% (BldA) [Mass fraction] 96 % Merly Marti MD Work Phone: [facility] 12-28-2021 14:38-0400 Systolic blood pressure 127 mm[Hg] Merly Marti MD Work Phone: [facility] 09-21-2021 15:35-0400 Body height 190.5 cm Merly Marti MD Work Phone: [facility] 09-21-2021 15:35-0400 Body temperature 97.2 [degF] Merly Marti MD Work Phone: [facility] 09-21-2021 15:35-0400 Body weight 132.63 kg Merly Marti MD Work Phone: [facility] 09-21-2021 15:35-0400 Diastolic blood pressure 73 mm[Hg] Merly Marti MD Work Phone: [facility] 09-21-2021 15:35-0400 Heart rate 91 /min Merly Marti MD Work Phone: [facility] 09-21-2021 15:35-0400 Respiratory rate 16 /min Merly Marti MD Work Phone: [facility] 09-21-2021 15:35-0400 SaO2% (BldA) [Mass fraction] 94 % Merly Marti MD Work Phone: [facility] 09-21-2021 15:35-0400 Systolic blood pressure 122 mm[Hg] Merly Marti MD Work Phone: [facility] Encounters Encounter Date Encounter Type Care Provider Facility Start: 07-16-2023 ambulatory Jerrod Torres ty:[facility] Start: 05-03-2023 End: 05-03-2023 ambulatory PHYSICIAN NO [facility] Facility:[facility] Start: 05-03-2023 End: 05-03-2023 ambulatory PHYSICIAN NO [facility] Work Phone: Start: 05-03-2023 End: 05-03-2023 Patient encounter procedure PHYSICIAN NO [facility] [address] Work Phone: Start: 03-29-2023 (Televisit) Televisit Silvana Samson [facility] Start: 03-29-2023 End: 03-29-2023 ambulatory Silvana Lundberg Other [facility] Other Start: 02-19-2023 End: 02-19-2023 ambulatory Silvana Lundberg Other [facility] Other Start: 02-19-2023 Telephone encounter Silvana Tam[facility] Start: 02-05-2023 End: 02-05-2023 ambulatory AUSTIN CLARK Facility:[facility] Start: 02-05-2023 End: 02-05-2023 Patient encounter procedure Austin Clark MD Work Phone: Cardiology Comment on above: Shortness of breath (Primary Dx); Near syncope Start: 12-27-2022 End: 12-27-2022 ambulatory Silvana Lundberg Other [facility] Other Start: 12-27-2022 Nursing evaluation o f patient and report Silvana Tamika [facility] Start: 12-11-2022 End: 12-11-2022 ambulatory PHYSICIAN NO FAMILY Facility:[facility] Start: 12-11-2022 End: 12-11-2022 ambulatory PHYSICIAN NO [facility] Work Phone: Start: 12-11-2022 End: 12-11-2022 Patient encounter procedure PHYSICIAN NO [facility] [address] Work Phone: Start: 11-17-2022 End: 11-17-2022 ambulatory TRICIA HOWARD Facility:[facility] Start: 11-17-2022 End: 11-17-2022 Patient encounter procedure Tricia Howard MD Work Phone: Cardiology Comment on above: SOB (shortness of br eath) (Primary Dx); 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; Palpitations Start: 11-15-2022 End: 11-15-2022 ambulatory MERLY MARTI Facility:[facility] Start: 11-07-2022 End: 11-07-2022 ambulatory Silvana Lundberg Other [facility] Other Start: 11-07-2022 Nursing evaluation o f patient and report Silvana Lundberg [facility] Start: 11-07-2022 Telephone encounter Silvana Lundberg [facility] Start: 11-02-2022 End: 11-02-2022 ambulatory Silvana Lundberg Other [facility] Other Start: 11-02-2022 Telephone encounter Silvana Lundberg [facility] Start: 10-31-2022 Office outpatient vi sit 15 minutes Silvana Lundberg [facility] Start: 10-31-2022 End: 10-31-2022 ambulatory PHYSICIAN NO FAMILY Facility:[facility] Start: 10-31-2022 End: 10-31-2022 ambulatory MD Silvana Lundberg Work Phone: [facility] Work Phone: Start: 10-31-2022 End: 10-31-2022 Departed Referred MD Silvana Lundberg Work Phone: [facility] [address] [place] Work Phone: Start: 10-18-2022 End: 10-18-2022 ambulatory ANNA NORTH Facility:[facility] Start: 10-17-2022 Orders Only Tricia Howard MD Work Phone: Cardiology Comment on above: Dilated cardiomyopat hy (HCC) (Primary Dx) 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 sites in spine (HCC) (Primary Dx) Results (Abnormal La bs) Start: 10-16-2022 Office outpatient vi sit 25 minutes Silvana Lundberg [facility] Start: 10-16-2022 End: 10-17-2022 ambulatory ANNA NORTH Facility:[facility] Start: 10-16-2022 End: 10-16-2022 ambulatory Emg 1000) Work Phone: Neurology Comment on above: EMG Start: 10-16-2022 End: 10-16-2022 Patient encounter procedure Emg 1 Neur Main (Max Weight: 1000) Work Phone: [facility] Start: 10-12-2022 Telephone encounter Anna carrasco ADMISSIONS SUPERVISOR.TELEPHONE WORKER Work Phone: Neurology Comment on above: Results (Abnormal la bs) Start: 10-06-2022 End: 10-07-2022 ambulatory ANNA NORTH Facility:[facility] Start: 10-06-2022 End: 10-06-2022 Patient encounter procedure Anna North ADMISSIONS SUPERVISOR.TELEPHONE WORKER Work Phone: Neurology Comment on above: Disturbance of skin sensation (Primary Dx); Lightheadedness; Change in blood pressure; Orthostatic hypotension; Tremulousness Start: 10-04-2022 End: 10-04-2022 ambulatory SILVANA LUNDBERG Facility:[facility] Start: 10-04-2022 End: 10-04-2022 Subsequent hospital visit by physician [facility] Work Phone: Molecular Imaging Comment on above: Exertional dyspnea [ R06.09] Start: 10-03-2022 ambulatory ALFREDO dunn [facility] Start: 09-13-2022 End: 09-13-2022 Subsequent hospital visit by physician [facility] Echocardiology Testing Comment on above: Exertional dyspnea [ R06.09] Start: 09-06-2022 End: 09-07-[address] DOCTOR NUNES Facility: Start: 08-29-2022 End: 08-30-2022 ambulatory Emily Anderson MD Work Phone: Cardiology Comment on above: Shortness of Breath Start: 08-29-2022 End: 08-29-2022 Patient encounter procedure Emily Anderson MD Work Phone: [facility] Start: 08-28-2022 Telephone encounter Emily Saravia [...] ical Records Start: 08-10-2022 End: 08-10-2022 ambulatory [facility] Start: 07-31-2022 End: 08-01-2022 ambulatory [facility] Start: 07-31-2022 End: 07-31-2022 Subsequent hospital visit by physician [facility] Tilt Table Study Room [facility] Comment on above: Orthostatic hypotens ion; POTS (postural orthostatic tachycardia syndrome) Start: 07-12-2022 End: 07-12-2022 ambulatory [facility] Start: 07-12-2022 Telephone encounter Tricia samson MD Work Phone: Cardiology Comment on above: Appointment Start: 07-04-2022 End: 07-05-2022 ambulatory NIKKIE TREJO Facility:[facility] Start: 06-26-2022 End: 06-27-2022 ambulatory NIKKIE TREJO Facility:[facility] Start: 06-26-[address] DOCTOR NUNES Facility :[facility] Start: 05-31-2022 End: 05-31-2022 [facility] Start: 05-24-[address] DOCTOR NUNES Facility :[facility] Start: 05-08-2022 End: 05-08-2022 ambulatory Silvana Lundberg Other [facility] Other Start: 05-08-2022 Office outpatient vi sit 15 minutes Silvana Lundberg [facility] Start: 05-01-2022 End: 05-02-2022 ambulatory Jerrod BELL Facility:[facility] Start: 05-01-2022 End: 05-01-2022 Patient encounter procedure [facility] Start: 04-24-2022 End: 04-25-[address] [...] Start: 11-23-2021 End: 11-23-[address] AIDE DELEON Facility:[facility] Start: 10-04-2021 End: 10-05-2021 ambulatory NIKKIE [...] 08-06-2020 Discharged Recurring Silvana Tamika Work Phone: [facility] Vaccine Off Site Procedures Date Procedure Procedure Detail Performing Clinician Start: 10-31-2022 Aerobic microbial culture PHYSICIAN NO FAMILY Start: 10-31-2022 Anaerobic microbial culture PHYSICIAN NO FAMILY Start: 10-31-2022 Investigation of tra nsfusion reaction PHYSICIAN NO FAMILY Start: 10-16-2022 Nerve conduction waylon dies 5-6 studies [place] ADMISSIONS SUPERVISOR.TELEPHONE WORKER Work Phone: Start: 10-04-2022 Pulmonary ventilatio n [...] and biopsy of upper gastrointestinal tract Jerrod [facility] Start: 08-02-2018 Screening for malign ant neoplasm of prostate Silvana Lundberg Other Start: 05-17-2015 Injection of hip usi ng fluoroscopic guidance Jerrod [employer] Comment on above: Rt. hip in OR-- 100% relief for 10 days Start: 03-08-2015 Injection of hip usi ng fluoroscopic guidance [employer] Comment on above: 100% relief for 4 da ys, slowly started coming back after 5 days back to where level of pain was before injection Start: 10-30-2014 Removal of suture Hue Lundberg Other Start: 10-02-2014 Back structure, excl uding neck (body structure) Jerrod [facility] Comment on above: L2 to L5, cyst remov al, bone grafting Start: 06-26-2014 Injection of sacroil iac joint using fluoroscopic guidance [employer] Comment on above: Left Start: 04-06-2014 Injection of sacroil iac joint using fluoroscopic guidance [employer] Comment on above: Left SIJI Start: 02-16-2014 Radiofrequency dener vation of spinal facet joint of lumbar vertebra [employer] Comment on above: Right L2-L5 Start: 02-02-2014 Radiofrequency dener vation of spinal facet joint of lumbar vertebra [employer] Comment on above: Left L2-L5 Start: 01-23-2014 General examination of patient Silvana Lundberg Other Start: 12-17-2013 Injection of facet j oint using fluoroscopic guidance [employer] Comment on above: Bilateral L2-L5 Start: 10-20-2013 [...] SCRE ENING DISCUSSION PROSTATE CANCER SCREENING DISCUSSION [facility] Start: 10-16-2025 DIABETES SCREEN DIABETES SCREEN [facility] Start: 10-16-2025 Diabetes Screening Diabetes Screenin g [facility] Start: 10-06-2025 DIABETES SCREEN DIABETES SCREEN [facility] Start: 12-28-2024 DIABETES SCREEN DIABETES SCREEN [facility] Start: 12-22-2022 Covid-19 Vaccine ( season) Covid-19 Vaccine ( season) [facility] Start: 12-22-2022 Influenza vaccination C [facility] Start: 12-11-2022 Hepatitis B core ant ibody measurement [facility] Start: 12-11-2022 [facility] Start: 10-31-2022 Aerobic Culture Aerobic Culture [facility] Start: 10-31-2022 Anaerobic Culture Anaerobic Culture [facility] Start: 10-31-2022 Microscopic observat ion [Identifier] in Unspecified specimen by Gram stain Gram Stain [facility] Start: 10-31-2022 [facility] Start: 10-17-2022 End: 12-17-2022 C reactive protein [Mass/volume] in Serum or Plasma C-REACTIVE PROTEIN (CRP) Lab Routine Ankylosing spondylitis of multiple sites in spine (HCC) Expected: 10/17/2022, Expires: 12/17/2022 [facility] Work Phone: Comment on above: Expected: 10/17/2022 , Expires: 12/17/2022 Start: 10-17-2022 End: 12-17-2022 Erythrocyte sedimentation rate SED RATE WESTERGREN Lab Routine Ankylosing spondylitis of multiple sites in spine (HCC) Expected: 10/17/2022, Expires: 12/17/2022 [facility] Work Phone: Comment on above: Expected: 10/17/2022 , Expires: 12/17/2022 Start: 10-06-2022 End: 12-06-2022 Alpha tocopherol [Mass/volume] in Serum or Plasma [facility] Work Phone: Comment on above: Expected: 10/06/2022 , Expires: 12/06/2022 Start: 10-06-2022 End: 12-06-2022 COPPER BLOOD [facility] Work Phone: Comment on above: Expected: 10/06/2022 , Expires: 12/06/2022 Start: 10-06-2022 End: 12-06-2022 Hemoglobin A1c in Blood [facility] Work Phone: Comment on above: Expected: 10/06/2022 , Expires: 12/06/2022 Start: 10-06-2022 End: 12-06-2022 IMMUNOFIXATION SCREEN, SERUM [facility] Work Phone: Comment on above: Expected: 10/06/2022 , Expires: 12/06/2022 Start: 10-06-2022 End: 12-06-2022 KAPPA/KEANE,FREE,SER [facility] Work Phone: Comment on above: Expected: 10/06/2022 , Expires: 12/06/2022 Start: 10-06-2022 End: 12-06-2022 Pyridoxine [Mass/volume] in Serum or Plasma [facility] Work Phone: Comment on above: Expected: 10/06/2022 , Expires: 12/06/2022 Start: 10-06-2022 End: 12-06-2022 VITAMIN B1 (THIAMINE), WHOLE BLOOD [facility] Work Phone: Comment on above: Expected: 10/06/2022 , Expires: 12/06/2022 Start: 10-06-2022 End: 12-06-2022 Zinc [Mass/volume] in Serum or Plasma [facility] Work Phone: Comment on above: Expected: 10/06/2022 , Expires: 12/06/2022 Start: 07-25-2022 Annual Wellness Visi t (AWV) Annual Wellness Visit (AWV) [facility] Start: 04-23-2022 DEPRESSION ASSESSMENT DEPRESSION ASS ESSMENT [facility] Start: 12-28-2021 End: 02-27-2022 Fibrin D-dimer FEU [Mass/volume] in Platelet poor plasma D-DIMER Lab Routine Acute deep vein thrombosis (DVT) of distal end of left lower extremity (HCC) Expected: 12/28/2021, Expires: 02/27/2022 [facility] Work Phone: Comment on above: Expected: 12/28/2021 , Expires: 02/27/2022 Start: 12-22-2021 End: 02-21-2022 APC RESISTANCE APC RESISTANCE Lab Routine Acute deep vein thrombosis (DVT) of distal end of left lower extremity (HCC) Expected: 12/22/2021 (Approximate), Expires: 02/21/2022 [facility] Work Phone: Comment on above: Expected: 12/22/2021 (Approximate), Expires: 02/21/2022 Start: 12-22-2021 End: 02-21-2022 B 2 GPI IGG & IGM B 2 GPI IGG & IGM Lab Routine Acute deep vein thrombosis (DVT) of distal end of left lower extremity (HCC) Expected: 12/22/2021 (Approximate), Expires: 02/21/2022 [facility] Work Phone: Comment on above: Expected: 12/22/2021 (Approximate), Expires: 02/21/2022 Start: 12-22-2021 End: 02-21-2022 Cardiolipin IgG and IgM panel - Serum ANTI-CARDIOLIPIN AB Lab Routine Acute deep vein thrombosis (DVT) of distal end of left lower extremity (HCC) Expected: 12/22/2021 (Approximate), Expires: 02/21/2022 [facility] Work Phone: Comment on above: Expected: 12/22/2021 (Approximate), Expires: 02/21/2022 Start: 12-22-2021 End: 02-21-2022 CBC W Auto Differential panel - Blood CBC + DIFF Lab Routine Acute deep vein thrombosis (DVT) of distal end of left lower extremity (HCC) Expected: 12/22/2021 (Approximate), Expires: 02/21/2022 [facility] Work Phone: Comment on above: Expected: 12/22/2021 (Approximate), Expires: 02/21/2022 Start: 12-22-2021 End: 02-21-2022 Comprehensive metabolic 2000 panel - Serum or Plasma COMP METABOLIC PANEL Lab Routine Acute deep vein thrombosis (DVT) of distal end of left lower extremity (HCC) Expected: 12/22/2021 (Approximate), Expires: 02/21/2022 [facility] Work Phone: Comment on above: Expected: 12/22/2021 (Approximate), Expires: 02/21/2022 Start: 12-22-2021 End: 02-21-2022 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 Start: 12-22-2021 End: 02-21-2022 Lactate dehydrogenase [Enzymatic activity/volume] in Serum or Plasma LD LACTATE DEHYDRO Lab Routine Acute deep vein thrombosis (DVT) of distal end of left lower extremity (HCC) Expected: 12/22/2021 (Approximate), Expires: 02/21/2022 [facility] Work Phone: Comment on above: Expected: 12/22/2021 (Approximate), Expires: 02/21/2022 Start: 12-22-2021 End: 02-21-[address] Lab Routine Acute deep vein thrombosis (DVT) of distal end of left lower extremity (HCC) Expected: 12/22/2021 (Approximate), Expires: 02/21/2022 [facility] Work Phone: Comment on above: Expected: 12/22/2021 (Approximate), Expires: 02/21/2022 Start: 01-21-2021 Colonoscopy COLONOSCOPY [facility] Start: 01-21-2021 COLORECTAL CANCER SCREENING COLORECTAL CANCER SCREENING [facility] Start: 2020 RSV Vaccine (1 - 1-d ose 60+ series) RSV Vaccine (1 - 1-dose 60+ series) [facility] Start: 12-16-2019 DIABETES SCREEN DIABETES SCREEN [facility] Start: 09-05-2015 PROSTATE CANCER SCRE ENING DISCUSSION PROSTATE CANCER SCREENING DISCUSSION [facility] Start: 08-14-2015 PNEUMOCOCCAL (2 - PCV) PNEUMOCOCCAL (2 - PCV) [facility] Start: 08-14-2015 Pneumococcal vaccination Pneum ococcal Vaccine (2 - PCV) [facility] Start: 01-12-2015 Urine microalbumin profile DTaP,Tdap,Td Vaccine (1 - Tdap) [facility] Start: 2010 Shingles vaccine (1 of 2) Tubbs gles vaccine (1 of 2) [facility] Start: 2010 SHINGRIX VACCINE (1 of 2) TUBBS GRIX VACCINE (1 of 2) [facility] Start: 2005 COLOGUARD (FIT-DNA) COLOGUARD (FIT-D NA) [facility] Start: 2005 Colonoscopy COLONOSCOPY [facility] Start: 2005 COLORECTAL CANCER SCREENING COLORECTAL CANCER SCREENING [facility] Start: [address] COLONOGRAPHY [facility] Start: 2005 FECAL OCCULT BLOOD FECAL OCCULT BLOO D [facility] Start: 2005 Screening for malign ant neoplasm of colon [facility] Start: 2005 SIGMOIDOSCOPY SIGMOIDOSCOPY [facility] Start: 2000 Lipid panel Lipids [facility] Start: 09-05-1995 Lipid 1996 panel - S eliza or Plasma Lipid Screening [facility] Start: 09-05-1995 LIPID SCREEN LIPID SCREEN [facility] Start: 09-05-1979 DTaP/Tdap/Td vaccine (1 - Tdap) DTaP/Tdap/Td vaccine (1 - Tdap) [facility] Start: 09-05-1979 SHINGRIX VACCINE (1 of 2) TUBBS GRIX VACCINE (1 of 2) [facility] Start: 09-05-1979 Urine microalbumin profile [facility] Start: 1978 HEPATITIS C SCREENING HEPATITIS C SC REENING [facility] Start: 1978 Hepatitis C screening Hepatitis C sc reen [facility] Start: 1978 HIV SCREENING HIV SCREENING [facility] Start: 09-05-1975 HIV screening HIV screen [facility] Start: 1972 Depression Screen Depression Screen [facility] Start: 1966 PNEUMOCOCCAL (1 - PCV) PNEUMOCOCCAL (1 - PCV) [facility] Start: 1965 COVID-19 VACCINE (#1) COVID-19 VACCI NE (#1) [facility] APC RESISTANCE APC RESISTANCE L ab Routine Acute deep vein thrombosis (DVT) of distal end of left lower extremity ([facility]) 12/28/2021 2:59 PM EDT [facility] Work Phone: aPTT in Platelet poo r plasma by Coagulation assay ACTIVATED PTT Lab Routine Acute deep vein thrombosis (DVT) of distal end of left lower extremity ([facility]) 12/28/2021 2:59 PM EDT [facility] Work Phone: B 2 GPI IGG & IGM B 2 GPI IGG & IGM Lab Routine Acute deep vein thrombosis (DVT) of distal end of left lower extremity ([facility]) 12/28/2021 2:59 PM EDT [facility] Work Phone: Bacteria identified in Unspecified specimen by Aerobe culture [facility] Bacteria identified in Unspecified specimen by Anaerobe culture [facility] BETA 2 GLYCOPROTEIN, IGG BETA 2 GLYCOPROTEIN, IGG Lab Routine Acute deep vein thrombosis (DVT) of distal end of left lower extremity ([facility]) 12/28/2021 2:59 PM EDT [facility] Work Phone: BETA 2 GLYCOPROTEIN, IGM BETA 2 GLYCOPROTEIN, IGM Lab Routine Acute deep vein thrombosis (DVT) of distal end of left lower extremity ([facility]) 12/28/2021 2:59 PM EDT [facility] Work Phone: Cardiolipin IgA Ab [Units/volume] in Serum by Immunoassay CARDIOLIPIN IGA ABS Lab Routine Acute deep vein thrombosis (DVT) of distal end of left lower extremity ([facility]) 12/28/2021 2:59 PM EDT [facility] Work Phone: CARDIOLIPIN IGG ABS CARDIOLIPIN IGG ABS Lab Routine Acute deep vein thrombosis (DVT) of distal end of left lower extremity ([facility]) 12/28/2021 2:59 PM EDT [facility] Work Phone: Cardiolipin IgG and IgM panel - Serum ANTI-CARDIOLIPIN AB Lab Routine Acute deep vein thrombosis (DVT) of distal end of left lower extremity ([facility]) 12/28/2021 2:59 PM EDT [facility] Work Phone: CARDIOLIPIN IGM ABS CARDIOLIPIN IGM ABS Lab Routine Acute deep vein thrombosis (DVT) of distal end of left lower extremity ([facility]) 12/28/2021 2:59 PM EDT [facility] Work Phone: End: 12-17-2023 CARDIOPULMONARY EXERCISE TEST CARDIOPULMONARY EXERCISE TEST PFT Routine SOB (shortness of breath) 1 Occurrences starting 11/17/2022 until 12/17/2023 [facility] Work Phone: Comment on above: 1 Occurrences starti ng 11/17/2022 until 12/17/2023 End: 08-17-2023 ECG COMPLETE ECG COMPLETE ECG Routine POTS (postural orthostatic tachycardia syndrome) 1 Occurrences starting 08/16/2022 until 08/17/2023 [facility] Work Phone: Comment on above: 1 Occurrences starti ng 08/16/2022 until 08/17/2023 End: 08-17-2023 Echocardiography ECHO Cardiology Routine Exertional dyspnea 1 Occurrences starting 08/16/2022 until 08/17/2023 [facility] Work Phone: Comment on above: 1 Occurrences starti ng 08/16/2022 until 08/17/2023 End: 10-07-2023 EMG(NEURO/NI) EMG(NEURO/NI) EMG Routine Disturbance of skin sensation 1 Occurrences starting 10/06/2022 until 10/07/2023 [facility] Work Phone: Comment on above: 1 Occurrences starti ng 10/06/2022 until 10/07/2023 F2 gene mutations fo und [Identifier] in Blood or Tissue by Molecular genetics method [employer] PROTHROMBIN GENE PCR Lab Routine Acute deep vein thrombosis (DVT) of distal end of left lower extremity (HCC) 12/28/2021 2:59 PM EDT [facility] Work Phone: FOUR EXTRA LT BLUE M AN COAG TUBES FOUR EXTRA LT BLUE MAN COAG TUBES Lab Routine Acute deep vein thrombosis (DVT) of distal end of left lower extremity (HCC) 12/28/2021 2:59 PM EDT [facility] Work Phone: LUPUS ANTICOAG PL LUPUS ANTICOAG PL Lab Routine Acute deep vein thrombosis (DVT) of distal end of left lower extremity (HCC) 12/28/2021 2:59 PM EDT [facility] Work Phone: LUPUS PANEL LUPUS PANEL Lab Routine Acute deep vein thrombosis (DVT) of distal end of left lower extremity (HCC) 12/28/2021 2:59 PM EDT [facility] Work Phone: End: 11-16-2023 MRI CARDIAC MORPH FUNC WO/W IVCON MRI CARDIAC MORPH FUNC WO/W IVCON Radiology Routine Dilated cardiomyopathy (HCC) 1 Occurrences starting 10/17/2022 until 11/16/2023 [facility] Work Phone: Comment on above: 1 Occurrences starti ng 10/17/2022 until 11/16/2023 End: 11-16-2023 MRI CARDIAC VELOCITY FLOW MAP MRI CARDIAC VELOCITY FLOW MAP Radiology Routine Dilated cardiomyopathy (HCC) 1 Occurrences starting 10/17/2022 until 11/16/2023 [facility] Work Phone: Comment on above: 1 Occurrences starti ng 10/17/2022 until 11/16/2023 OUTSIDE VENDOR CARDI AC OUTPATIENT EXTENDED RHYTHM RECORDING (WITHOUT TELEMETRY) OUTSIDE VENDOR CARDIAC OUTPATIENT EXTENDED RHYTHM RECORDING (WITHOUT TELEMETRY) Holter Routine Lightheadedness POTS (postural orthostatic tachycardia syndrome) Exertional dyspnea Ordered: 08/16/2022 [facility] Work Phone: Comment on above: Ordered: 08/16/2022 PT panel - Platelet poor plasma by Coagulation assay PROTHROMBIN TIME/PT Lab Routine Acute deep vein thrombosis (DVT) of distal end of left lower extremity (HCC) 12/28/2021 2:59 PM EDT [facility] Work Phone: End: 09-15-2023 Pulmonary ventilation & perfusion imaging NM LUNG VENT / PERF VQ Radiology Routine Exertional dyspnea Other secondary pulmonary hypertension (HCC) 1 Occurrences starting 08/16/2022 until 09/15/2023 [facility] Work Phone: Comment on above: 1 Occurrences starti ng 08/16/2022 until 09/15/2023 [facility] Immunizations Immunization Date Immunization Notes Care Provider Yoko [facility] 03-13-2022 COVID-19 Pfizer (Pediatric) Silvana Lundberg Other [facility] Other 03-13-2022 influenza virus vaccine, split virus (incl. purified surface antigen) Silvana Lundberg Other [facility] Other 03-13-2022 influenza virus vaccine, unspecified formulation Jerrod BELL [facility] 03-13-2022 SARS-CoV-2 (COVID-19 ) [id number] Jerrod BELL [facility] 05-08-2021 SARS-CoV-2 (COVID-19 ) mRNA BNT-162b2 vax Jerrod BELL [facility] 03-12-2021 influenza virus vaccine, split virus (incl. purified surface antigen) Silvana Lundberg Other [facility] Other 03-12-2021 influenza virus vaccine, unspecified formulation Jerrod BELL [facility] 03-12-2021 influenza, injectabl e, quadrivalent, preservative free Merly Marti MD Work Phone: [facility] 08-06-2020 COVID-19 mRNA,[id number] b2 (Pfizer) Silvana Lundberg Work Phone: [facility] 07-22-2020 COVID-19 vaccine (NORTH) Merly Marti MD Work Phone: [facility] 07-13-2020 COVID-19 mRNA,[id number] b2 (Pfizer) Silvana Lundberg Work Phone: [facility] 06-21-2020 COVID-19 vaccine (NORTH) Merly Marti MD Work Phone: [facility] 12-31-2019 influenza virus vaccine, split virus (incl. purified surface antigen) Silvana Lundberg Other [facility] Other 01-29-2019 influenza virus vaccine, split virus (incl. purified surface antigen) Silvana Lundberg Other [facility] Other 01-11-2015 tetanus and diphther ia toxoids, adsorbed, preservative free, for adult use (5 Lf of tetanus toxoid and 2 Lf of diphtheria toxoid) Silvana Lundberg Other [facility] Other 08-13-2014 pneumococcal polysaccharide vaccine, 23 valent Merly Marti MD Work Phone: [facility] NEGATED: Highlighted row has not occurred!05-04-2020 pneumococcal polysaccharide vaccine, 23 valent Silvana Lundberg Other [facility] Other Payers Date Payer Category Payer Medicare HUMANA MEDICARE HUMANA MEDICARE PPO [id number] 2021-Present [phone] [place], [place] [address] PPO [id number] 2021 Medicare HUMANA MEDICARE HUMANA MEDICARE PPO [id number] 2021-Present [phone] [address] [place] [id number] PPO [id number] 1960 Unknown [id number] [id number] 73 1960 Unknown [id number] 2.16.840.1.223665.3.579.2.5 93 1960 Unknown [id number] 2.16.840.1.166630.3.579.2.5 93 1960 Unknown [id number] 2.16.840.1.575231.3.579.2.5 93 1960 Unknown [id number] 2.16.840.1.026885.3.579.2.5 93 1960 Unknown [id number] 2.16.840.1.877913.3.579.2.5 93 1960 Unknown [id number] 2.16.840.1.967481.3.579.2.5 93 1960 Unknown [id number] 2.16.840.1.419969.3.579.2.5 93 1960 Unknown [id number] 2.16.840.1.482739.3.579.2.5 93 1960 Unknown [id number] 2.16.840.1.427995.3.579.2.5 93 1960 Unknown [id number] 2.16.840.1.994813.3.579.2.5 93 1960 Unknown [id number] 2.16.840.1.922004.3.579.2.5 93 1960 Unknown [id number] 2.16.840.1.837435.3.579.2.5 93 1960 Unknown [id number] 2.16.840.1.339269.3.579.2.5 1960 Unknown [id number] 2.16.840.1.284962.3.579.2.5 93 1960 Unknown [id number] 2.16.840.1.054025.3.579.2.5 1960 Unknown [id number] 2.16.840.1.918528.3.579.2.5 93 1960 Unknown [id number] 2.16.840.1.001653.3.579.2.5 1960 Unknown [id number] 2.16.840.1.383754.3.579.2.7 27 1960 Unknown [id number] 2.16.840.1.794917.3.579.2.7 1959 Private Health Insurance [id number] Self-pay [id number] Medicare [id number] Unknown [id number] Unknown [id number] Unknown [id number] 2.16.840.1.941790.3.579.2.5 93 Unknown [id number] 2.16.840.1.897632.3.579.2.5 31 Unknown [id number] 2.16.840.1.032057.3.579.2.5 31 Unknown [id number] 2.16.840.1.651020.3.579.2.5 31 Social History Date Type Detail [facility] Start: 1960 Sex Assigned At Male [facility] Start: 12-28-2021 End: 05-01-2022 Tobacco smoking status NHIS Ex-smoker [facility] History of tobacco use Cigarette Smoker C [facility] Start: 09-16-2021 End: 08-16-2022 Alcohol intake Current non-drinker of alcohol (finding) [facility] Start: 1960 Sex Assigned At Not on file C [facility] Start: 09-11-2021 End: 10-16-2022 Exposure to SARS-CoV-2 (event) Not sure [facility] History of tobacco use Current smoker [facility] Start: 12-28-2021 End: 08-29-2022 Cigarettes smoked current (pack per day) - Reported 2 [facility] History of tobacco use Passive smoker [facility] Start: 12-28-2021 Tobacco use and exposure Smokeless tobacco non-user [facility] Start: 12-28-2021 Tobacco Comment quit 1997 [facility] Start: 08-29-2022 End: 11-17-2022 Sex Assigned At Male [facility] consumption [facility] [employer] Work Phone: Adult Depression Screening Assessment 2 [facility] Medical Equipment Procedure Code Equipment Code Equipment Origin al Text Equipment Identifier Dates Graft Infuse 18m m Large Ii Bovine Collagen Rhbmp-2 26mm Bone Absorbable - [id number] Start: 09-01-2016 Connector Chika 0d Small Titanium Chaitanya Spine - [id number] Start: 09-01-2016 Substitute Mastergraft Bone Graft Matrix Block Extension Void Filler 10ml - [id number] Start: 09-01-2016 Cgf-Zm-W[employer] plant - [id number] Start: 12-01-2015 Comment on above: Description: g7 osse eduardo acetabular shell 4 hole cementless Wpl-Ko-J-[employer] plant - [id number] Start: 12-01-2015 Comment on above: Description: g7 acet abular screw Igd-Kv-R-[employer] plant - [id number] Start: 12-01-2015 Comment on above: Description: g7 acet abular liner neutral Dhy-Hp-O[employer] plant - [id number] Start: 12-01-2015 Comment on above: Description: taperlo c complete primary femoral porous coated stem reduced distal high offset type 1 taper Cage Spnl Tri 8x 23mm 6d 11mm - [id number] Start: 09-01-2016 Screw Chika 3 Mali nium Set Malaika Spine - [id number] Start: 09-01-2016 Head G7 40mm Bio lox Delta Femoral Hip - [id number] Start: 12-01-2015 Comment on above: Description: ceramic head Sleeve G7 -6mm O ffset Taper Biolox Delta Option Titanium Centering Type 1 - [id number] Start: 12-01-2015 Comment on above: Description: taper a dapter Chaitanya Chika 3 6mm 48 0mm Spinal - [id number] Start: 09-01-2016 Screw Chika 3 7.5m m Titanium 40mm Bone Polyaxial Spine Thoracolumbar - [id number] Start: 09-01-2016 Screw Chika 3 7.5m m Titanium 45mm Bone Polyaxial Spine Thoracolumbar - [id number] Start: 09-01-2016 [place] Chika 8.5mm 7 0mm Spinal Polyaxial Ilium - [id number] Start: 09-01-2016 Screw Chika 3 6.5m m Titanium 45mm Bone Polyaxial Spine Thoracolumbar - [id number] Start: 09-01-2016 Goals Date Patient Goal Desired Activity /State Functional Status Date Assessment Result Facility 05-01-2022 Functional Status N/A [facility] Clinical Notes 12-09-2016 to 03-29-2023 Note Date [...] (ICD-10 - L30.9) Advised OTC Cortisone cream. [facility] Other 10-16-2023 NoteHNO ID: [id number] Author: Austin Clark MD Service: ? Author Type: Physician Type: Progress Notes Filed: 02/05/2023 1:39 PM Note Text: I personally reviewed the above information as obtained by the nurse and confirmed the findings. Chief Complaint: shortness of breath, Near loss of consciousness Additional HPI: 62 year old male with a past medical history of: PAST MEDICAL HISTORY Diagnosis Date Ankylosing spondylitis ([facility]) Dr Hodges Ankylosing spondylitis ([facility]) Arthritis Back pain Cardiomyopathy ([facility]) Nonischemic Congestive Cerebrovascular small vessel disease 08/24/2016 On ASA DVT (deep venous thrombosis) ([facility]) Esophageal reflux Former smoker Kidney stones Major depressive disorder with single episode, in remission ([facility]) 08/24/2016 Morbid obesity with BMI of 40.0-44.9, adult ([facility]) Neuropathy Obstructive sleep apnea syndrome, severe On [...] a cardiac MRI as (more content not included)...[facility]10-16-2023 NoteHNO ID: [id number] Author: Anna Duvall RN Service: ? Author Type: Registered Nurse Type: Progress Notes Filed: 02/05/2023 1:39 PM Note Text: [facility] [place] [facility] Department of Cardiovascular Medicine SECTION OF CARDIAC PACING and ELECTROPHYSIOLOGY OUTPATIENT VISIT DATE February 05, 2023 PRIMARY CARE PHYSICIAN: Silvana Lundberg ([place]) [address] [place] [address] REFERRING PHYSICIAN: Tricia Howard [address] [facility] [address] NURSING INTAKE HISTORY: Mr. Felix is a [...] MEDICAL HISTORY Diagnosis Date - Ankylosing spondylitis ([facility]) Dr Hodges - Ankylosing spondylitis ([facility]) - Arthritis - Back pain - Cardiomyopathy ([facility]) Nonischemic Congestive - Cerebrovascular small vessel disease 08/24/2016 On ASA - DVT (deep venous thrombosis) ([facility]) - Esophageal reflux - Former smoker - Kidney stones - Major depressive disorder with single episode, in remission ([facility]) 08/24/2016 - Morbid obesity with BMI of 40.0-44.9, adult ([facility]) - (more content not included)...[facility]10-16-2023 History of Present illness Narrative* Austin Clark MD - 02/05/2023 1:01 PM EDT I personally reviewed the above information as obtained by the nurse and confirmed the findings. Chief Complaint: shortness of breath, Near loss of consciousness Additional HPI: 62 year old male with a past medical history of: PAST MEDICAL HISTORY Diagnosis Date Ankylosing spondylitis ([facility]) Dr Hodges Ankylosing spondylitis ([facility]) Arthritis Back pain Cardiomyopathy ([facility]) Nonischemic Congestive Cerebrovascular small vessel disease 08/24/2016 On ASA DVT (deep venous thrombosis) ([facility]) Esophageal reflux Former smoker Kidney stones Major depressive disorder with single episode, in remission ([facility]) 08/24/2016 Morbid obesity with BMI of 40.0-44.9, adult ([facility]) Neuropathy Obstructive sleep apnea syndrome, severe On [...] up with their primary care physician and/or veterinarian assistant as previously scheduled. STUDY CONCLUSIONS: Abnormal head [...] to repeat a Tilt Table Test with [id number] blood pressure monitoring here at [facility]. He agrees. If a relationship between [...] of syncope. [ACC/AHA Syncope Guidelines 2017. PMID 23103947] -If syncope is frequent (more than 6 episodes in 1 year), then no private driving until symptoms are controlled. [ACC/AHA Syncope Guidelines 2017. PMID 52636897] -For professional or commercial driving, driving recommendations may differ depending upon company or governmental regulations. The Nurses and Nurse Practitioners at [facility] are integral to your care. -*Test results will be available on Suite101.* -For brief questions regarding the test results, please send a Suite101 message or call the office ([phone]), and a Nurse will be in contact. [...] for your consultation. Sincerely, Austin Clark MD, [facility] Cardiac Electrophysiology [facility] * Anna Duvall RN - 02/05/2023 12:00 PM EDT Images from the original note were not included. [facility] [place] [facility] Department of Cardiovascular Medicine SECTION OF CARDIAC PACING and ELECTROPHYSIOLOGY OUTPATIENT VISIT DATE February 05, 2023 PRIMARY CARE PHYSICIAN: Silvana Lundberg ([place]) [address] [place] [address] REFERRING PHYSICIAN: Tricia Howard [address] [facility] [address] NURSING INTAKE HISTORY: Mr. Felix is a [...] PAST MEDICAL HISTORY Diagnosis Date Ankylosing spondylitis ([facility]) Dr Hodges Ankylosing spondylitis ([facility]) Arthritis Back pain Cardiomyopathy ([facility]) Nonischemic Congestive Cerebrovascular small vessel disease 08/24/2016 On ASA DVT (deep venous thrombosis) ([facility]) Esophageal reflux Former smoker Kidney stones Major depressive disorder with single episode, in remission ([facility]) 08/24/2016 Morbid obesity with BMI of 40.0-44.9, adult ([facility]) Neuropathy Obstructive sleep apnea syndrome, severe On [...] Sweating, Frequent Urination, FrequentThirst Anna Duvall RN [facility] Syncope Center Score Please estimate the [...] of Both Sections: 35 documented in this encounterGenesis Hospital09-06-2023 Evaluation note* Encounter Date Diagnosis Assessment Notes Treatment Notes Treatment Clinical Notes Dec, Pernicious anemia (ICD-10 - D51.0) [facility] Other 07-28-2023 NoteHNO ID: [id number] Author: Tricia Howard MD Service: ? Author Type: Physician Type: Progress Notes Filed: 11/30/2022 5:11 PM Note Text: [facility] [place] [facility] Department of Cardiovascular Medicine SECTION OF CLINICAL CARDIOLOGY OUTPATIENT VISIT DATE November 17, 2022 OUTPATIENT VISIT TYPE ESTABLISHED PRIMARY CARE PHYSICIAN: Silvana Lundberg ([facility]) [address] [place] [address] REFERRING PHYSICIAN: No referring provider defined for [...] PAST MEDICAL HISTORY Diagnosis Date Ankylosing spondylitis ([facility]) Dr Hodges Ankylosing spondylitis ([facility]) Arthritis Back pain Cardiomyopathy ([facility]) Nonischemic Congestive Cerebrovascular small vessel disease 08/24/2016 On ASA DVT (deep venous thrombosis) ([facility]) Esophageal reflux Former smoker Kidney stones Major depressive disorder with single episode, in remission ([facility]) 08/24/2016 Morbid obesity with BMI of 40.0-44.9, adult ([facility]) Neuropathy Obstructive sleep apnea syndrome, severe On [...] Position: Sitting, BP Cuff (more content not included)...[facility]07-28-2023 Instructions* Patient Instructions* Tricia Howard MD - 11/17/2022 11:06 AM EDT Cardiopulmonary exercise testing documented in this encounterGenesis Hospital07-28-2023 History of Present illness Narrative* Tricia Howard MD - 11/17/2022 10:46 AM EDT Images from the original note were not included. [facility] [place] [facility] Department of Cardiovascular Medicine SECTION OF CLINICAL CARDIOLOGY OUTPATIENT VISIT DATE November 17, 2022 OUTPATIENT VISIT TYPE ESTABLISHED PRIMARY CARE PHYSICIAN: Silvana Lundberg ([facility]) [address] [place] [address] REFERRING PHYSICIAN: No referring provider defined for [...] PAST MEDICAL HISTORY Diagnosis Date Ankylosing spondylitis ([facility]) Dr Hodges Ankylosing spondylitis ([facility]) Arthritis Back pain Cardiomyopathy ([facility]) Nonischemic Congestive Cerebrovascular small vessel disease 08/24/2016 On ASA DVT (deep venous thrombosis) ([facility]) Esophageal reflux Former smoker Kidney stones Major depressive disorder with single episode, in remission ([facility]) 08/24/2016 Morbid obesity with BMI of 40.0-44.9, [...] NORMAL ECG Confirmed by YELENA FUENTES MD ([id number]) on 08/16/2022 10:01:53 AM Patient Name: Elena [...] Department of Cardiovascular Medicine [facility] [place] [facility] Desk [address] [place] [address] Office Office Appointments: [phone] documented in this encounterGenesis Hospital07-26-2023 NoteHNO ID: [id number] Author: Merly Marti MD Service: ? Author Type: Physician Type: Progress Notes Filed: 11/15/2022 11:35 AM Note Text: PATIENT NAME: Elena Felix [facility] NO.: [id number] ATTENDING PHYSICIAN: Merly Marti MD DATE OF [...] depressive disorder with single episode, in remission ([facility]) 08/24/2016 Morbid obesity with BMI of 40.0-44.9, adult ([facility]) Neuropathy Obstructive sleep apnea syndrome, severe On [...] Date Value 10/06/2022 72 (more content not included)...[facility]07-18-2023 Evaluation note* Encounter Date Diagnosis Assessment Notes Treatment Notes Treatment Clinical Notes Oct, Pernicious anemia (ICD-10 - D51.0) [facility] Other 07-11-2023 Evaluation note* Encounter Date Diagnosis Assessment Notes Treatment Notes Treatment Clinical Notes Oct, Cellulitis of right leg (ICD-10 - L03.115) Discussed antibiotics, pain med, consider referral to wound center if not healing well. [facility] Other 06-27-2023 Miscellaneous Notes* Telephone Encounter - Shelia Woods RN - 10/17/2022 9:06 AM EDT Called patient to discuss results of BMP with kidney function and potassium levels still elevated. Left generic message on non-identifying voicemail to return call or read Suite101 message sent to notify him. Misti Woods RN documented in this encounterGenesis Hospital06-26-2023 Evaluation note* Encounter Date Diagnosis Assessment [...] Will recheck labs, possibly checked this morning. [facility] Other 06-26-2023 NoteHNO ID: [id number] Author: Trip Grey MD Service: ? Author [...] Care Visit completed when applicable. Luz Grey [facility]06-26-2023 History of Present illness Narrative* Trip Grey [...] applicable. Luz Grey MD documented in this encounterGenesis Hospital06-22-2023 Miscellaneous Notes* Telephone Encounter - Shelia Woods RN - 10/12/2022 1:09 PM EDT Called and left a generic message on non-identifying voicemail for return call if he has any questions about the Suite101 message that Anna sent. Misti Woods RN documented in this encounterGenesis Hospital06-16-2023 NoteHNO ID: [id number] Author: Anna North APRN.TELEPHONE WORKER Service: ? Author Type: Nurse Practitioner Type: Progress Notes Filed: 10/06/2022 10:14 AM Note Text: [facility] New Patient Evaluation Chief Complaint/Issues: Elena Felix is a 62 year old right-handed male seen in the [facility] for: New patient Orthostatic [...] had multiple back and hip surgeries. His accredited legal secretary is locally in [place]. He had surgery in 2019, had a [...] and heart issues. He sees cardiology in [facility]. He had a heart cath and showed [...] PT in the past and sees his accredited legal secretary for the neck. PMH PAST MEDICAL HISTORY Diagnosis Date Ankylosing spondylitis ([facility]) Dr Hodges Ankylosing spondylitis ([facility]) Arthritis Back pain Cardiomyopathy ([facility]) Nonischemic Congestive Cerebrovascular small vessel disease 08/24/2016 On ASA DVT (deep venous thrombosis) ([facility]) Esophageal reflux Former smoker Kidney stones Major depressive disorder with single episode, in remission ([facility]) 08/24/2016 Morbid obesity with BMI of 40.0-44.9, adult ([facility]) Neuropathy Obstructive sleep apnea syndrome, severe On [...] Constipation: no Abdominal Bl (more content not included)...[facility]06-16-2023 Instructions* Patient Instructions* Anna North APRN.TELEPHONE WORKER - 10/06/2022 9:58 AM EDT 1) Labs 2) EMG 3) Discuss with urology changing to different medication (discontinuing Flomax) 4) Discuss your neck symptoms with your accredited legal secretary 5) Medication consideration - Will discuss with [...] intolerance quickly and transiently. documented in this encounterGenesis Hospital06-16-2023 History of Present illness Narrative* Anna North APRN.SAHIL - 10/06/2022 9:00 AM EDT Images from the original note were not included. [facility] New Patient Evaluation Chief Complaint/Issues: Elena Felix is a 62 year old right-handed male seen in the [facility] for: New patient Orthostatic [...] had multiple back and hip surgeries. His accredited legal secretary is locally in [place]. He had surgery in 2019, had a [...] GI andheart issues. He sees cardiology in [facility]. He had a heart cath and showed [...] PT in the past and sees his accredited legal secretary for the neck. PMH PAST MEDICAL HISTORY Diagnosis Date Ankylosing spondylitis ([facility]) Dr Hodges Ankylosing spondylitis ([facility]) Arthritis Back pain Cardiomyopathy ([facility]) Nonischemic Congestive Cerebrovascular small vessel disease 08/24/2016 On ASA DVT (deep venous thrombosis) ([facility]) Esophageal reflux Former smoker Kidney stones Major depressive disorder with single episode, in remission ([facility]) 08/24/2016 Morbid obesity with BMI of 40.0-44.9, adult ([facility]) Neuropathy Obstructive sleep apnea syndrome, severe On [...] up with their primary care physician and/or veterinarian assistant as previously scheduled. STUDY CONCLUSIONS: Abnormal head [...] commands. Cranial Nerves PERRLA No ptosis. Visual khan are full to confrontation. Extraocular movements are [...] & Plan 10/06/2022 - Neuromuscular, Anna North, RAGINI.TELEPHONE WORKER ASSESSMENT Elena Felix is a 62 year [...] managed by local rheumatology, and seen by [facility] rheumatology recently, Alexus Nance PA-C. He [...] SOB. He had OSH tilt completed through [facility] 07/2022. Though I cannot see the minute [...] which I will discuss with his primary veterinarian assistant, Dr. Howard (staff message sent 10/06). He is currently in cardiac rehab locally 3x per week. We discuss conservative measures as tolerated. PLAN 1) Labs 2) EMG 3) Discuss with urology changing to different medication (discontinuing Flomax) 4) Discuss your neck symptoms with your accredited legal secretary 5) Medication consideration - Will discuss with [...] which included preparing to see the patient, [id number] patient care, completing clinical documentation, obtaining and/or reviewing separately obtained history, performing a medically appropriate examination, counseling and educating the pat ient/family/caregiver, and ordering medications, tests, or procedures. Anna North APRN.[facility] General Neurology [address] [place] [address] Appointment: [phone] CONSULT: Consultation requested by Dr. Howard for [...] of your PCP/referring physician documented in this encounterGenesis Hospital06-14-2023 NoteHNO ID: [id number] Author: RT Eamon(R) Service: Nuclear Medicine Author [...] 8:10 PATIENT DISCHARGED TO: Ambulatory patient, left AR department area. A Diagnostic radioactive procedure has taken place, with no further precautions necessary other than routine body substance precautions. More information regarding radiation safety can be found using this link: [email or web address]%[email or web address] SIGNATURE: RT Eamon(R) PATIENT NAME: Elena Felix DATE: October 04, 2022 TIME: 8:15 AM PAGER/CONTACT #:[facility]06-14-2023 History of Present illness Narrative* RT [...] 8:10 PATIENT DISCHARGED TO: Ambulatory patient, left AR department area. A Diagnostic radioactive procedure has taken place, with no further precautions necessary other than routine body substance precautions. More information regarding radiation safety can be found [email or web address] link: [email or web address] [email or web address]%20Nuclear%20Medicine%[email or web address] SIGNATURE: ISSA Knutson) PATIENT NAME: Elena Felix DATE: October 04, 2022 TIME: 8:15 AM PAGER/CONTACT #: documented in this encounterGenesis Hospital06-13-2023 NoteThe is a pleasant 62-year-old male with nonischemic cardiomyopathy, chronic systolic heart failure (HFrEf), Mild nonobstructive coronary artery disease (right heart catheterization 09/2021), hypertension, dyslipidemia who was found to have orthostatic hypotension and previously evaluated in the Cardiac Clinic at the [facility]. He last saw Maite Ba advanced practice registered nurse practitioner in July 2022. He underwent head upright tilt table testing positive for orthostatic intolerance at [facility]. He was commenced on pyridostigmine several months ago. He has been referred to the Syncope and Autonomic Disorders Clinic in the Heart and Vascular Center at the [facility] for further management of the orthostatic hypotension. Chief Complaint: Follow-up for orthostatic hypotension and pyridostigmine. Had severe diarrhea and stomach cramps so stopped both medications. Blood pressure continues to drop with standing. Low 50/30mmhg. Near syncope. Black vision. Blood pressure highest: SBP 140-[facility]mmhg [facility] Hx [facility]ylosis spondylitis. Cardiac and rheumatology team. 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 Likely these Covid long haulers develop an inflammatory/autoimmune response that effects the ANS. Mr Angela has longstanding ankylosis spondylitis. Failed pyridostigmine and midodrine. Consider droxidopa or Northera. Discussed reconditioning, fluids, conservative measures. Will follow with [facility] providers and rtc 3months.[facility]05-24-2023 Nurse Note* Yuliana Tubbs RN - 09/13/2022 [...] kind. Yuliana Tubbs RN documented in this encounterGenesis Hospital05-09-2023 NoteHNO ID: [id number] Author: Marcia Diamond MD Service: ? Author [...] Felix DATE: August 29, 2022 TIME: 1:57 [facility]05-09-2023 History of Present illness Narrative* Marcia [...] 2022 TIME: 1:57 PM documented in this encounterGenesis Hospital05-08-2023 Miscellaneous Notes* Telephone Encounter - Lauryn [...] In Department of CARDIOLOGY. documented in this encounterGenesis Hospital04-26-2023 NoteHNO ID: [id number] Author: Catia Snell Service: ? Author Type: ? Type: Progress Notes Filed: 08/16/2022 10:07 AM Note Text: [facility]04-26-2023 NoteHNO ID: [id number] Author: Alexus Nance PA-C Service: ? Author Type: Physician Regulatory Services Consultant Type: Progress Notes Filed: 09/19/2022 6:06 AM Note Text: Rheumatology Outpatient Clinic Date of Service: 08/16/2022 Patient: Elena Felix Medical Record: [id number] Primary Care Physician: Silvana Lundberg MD Last Rheumatology visit: None at the [facility] Referring Provider: Tricia Howard MD [address] [facility] [address] Consultation requested by Tricia Howard MD for [...] years later. He currently follows with a accredited legal secretary, Dr. Brad Hodges, in [place], [place] who he is happy with. However, reports accredited legal secretary told him, he is only his third patient with ankylosing spondylitis and so presents to [facility] rheum for assistance on treatment plan. [...] mass areas in the brain. Reports his accredited legal secretary has considered a TNF-alpha inhibitor again, but [...] PAST MEDICAL HISTORY Diagnosis Date Ankylosing spondylitis ([facility]) Dr Hodges Ankylosing spondylitis ([facility]) Arthritis Back pain Cardiomyopathy ([facility]) Nonischemic Congestive Cerebrovascular small vessel disease 08/24/2016 On ASA DVT (deep venous thrombosis) ([facility]) Esophageal reflux Former smoker Kidney stones Major depressive disorder with single episode, in remission ([facility]) 08/24/2016 Morbid obesity with BMI of 40.0-44.9, adult ([facility]) Neuropathy Obstructive sleep apnea syndrome, severe On [...] multiple sclerosis Social Histo (more content not included)...[facility]04-26-2023 Instructions* Patient Instructions* Alexus Nance PA-C [...] uveitis coverage. Continue to follow with primary accredited legal secretary for medication changes and monitoring. [facility] can continue to assist with treatment plan as needed. documented in this encounterGenesis Hospital04-26-2023 NoteHNO ID: [id number] Author: Tricia Howard MD Service: ? Author Type: Physician Type: Progress Notes Filed: 08/16/2022 1:01 PM Note Text: [facility] [place] [facility] Department of Cardiovascular Medicine SECTION OF CLINICAL CARDIOLOGY OUTPATIENT VISIT DATE August 16, 2022 OUTPATIENT VISIT TYPE NEW PRIMARY CARE PHYSICIAN : Silvana Lundberg ([place]) [address] [place] [phone] REFERRING PHYSICIAN: No referring provider defined for [...] PAST MEDICAL HISTORY Diagnosis Date Ankylosing spondylitis ([facility]) Dr Hodges Ankylosing spondylitis ([facility]) Arthritis Back pain Cardiomyopathy ([facility]) Nonischemic Congestive Cerebrovascular small vessel disease 08/24/2016 On ASA DVT (deep venous thrombosis) ([facility]) Esophageal reflux Former smoker Kidney stones Major depressive disorder with single episode, in remission ([facility]) 08/24/2016 Morbid obesity with BMI of 40.0-44.9, adult ([facility]) Neuropathy Obstructive sleep apnea syndrome, severe On [...] daily. REVIEW OF SYSTEMS (more content not included)...[facility] 08-16-2022 History of Present illness Narrative* Catia Snell - 08/16/2022 10:06 AM EDT E documented in this encounterGenesis Hospital04-26-2023 History of Present illness Narrative* Alexus Nance PA-C - 08/16/2022 10:00 AM EDT Images from the original note were not included. Rheumatology Outpatient Clinic Date of Service: 08/16/2022 Patient: Elena Felix Medical Record: [id number] Primary Care Physician: Silvana Lundberg MD Last Rheumatology visit: None at the [facility] Referring Provider: Tricia Howard MD [address] [facility] [address] Consultation requested by Tricia Howard MD for [...] years later. He currently follows with a accredited legal secretary, Dr. Brad Hodges, in [place], [place] who he is happy with. However,reports accredited legal secretary told him, he is only his third patient with ankylosing spondylitis and so presents to [facility] rheum for assistance on treatment plan. [...] mass areas in the brain. Reports his accredited legal secretary has considered a TNF-alpha inhibitor again, but [...] PAST MEDICAL HISTORY Diagnosis Date Ankylosing spondylitis ([facility]) Dr Hodges Ankylosing spondylitis ([facility]) Arthritis Back pain Cardiomyopathy ([facility]) Nonischemic Congestive Cerebrovascular small vessel disease 08/24/2016 On ASA DVT (deep venous thrombosis) ([facility]) Esophageal reflux Former smoker Kidney stones Major depressive disorder with single episode, in remission ([facility]) 08/24/2016 Morbid obesity with BMI of 40.0-44.9, adult ([facility]) Neuropathy Obstructive sleep apnea syndrome, severe On [...] Patient should continue following with his primary accredited legal secretary. Follow up as needed. Plan Orders this [...] uveitis coverage. Continue to follow with primary accredited legal secretary for medication changes and monitoring. [facility] can continue to assist with treatment plan as needed. Return if symptoms worsen or fail to improve. I spent a total of 60 minutes on the date of the service which included preparing to see the patient, [id number] patient care, completing clinical documentation, obtaining and/or reviewing separately obtained history, performing a medically appropriate examination, and counseling and educating the patient/family/caregiver. Alexus Nacne PA-C Orthopaedic & Rheumatologic [facility] Date: August 16, 2022 Time: 10:00 AM documented in this encounterGenesis Hospital04-26-2023 NoteHNO ID: [id number] Author: Latrice Mondragon MD Service: ? Author [...] findings Latrice Mondragon MD Electrophysiology staff pager [phone]04[facility] History of Present illness Narrative* Tricia Howard MD - 08/16/2022 8:19 AM EDT Images from the original note were not included. [facility] V[facility] Thor[facility] [place] [facility] Department of Cardiovascular Medicine SECTION OF CLINICAL CARDIOLOGY OUTPATIENT VISIT DATE August 16, 2022 OUTPATIENT VISIT TYPE NEW PRIMARY CARE PHYSICIAN : Silvana Lundberg ([facility]) [address] [place] [phone] REFERRING PHYSICIAN: No referring provider defined for [...] 20 years ago. Used to work in [employer]. Fmaily hx of stroke in mother and father. PAST MEDICAL HISTORY Diagnosis Date Ankylosing spondylitis ([facility]) Dr Hodges Ankylosing spondylitis ([facility]) Arthritis Back pain Cardiomyopathy ([facility]) Nonischemic Congestive Cerebrovascular small vessel disease 08/24/2016 On ASA DVT (deep venous thrombosis) ([facility]) Esophageal reflux Former smoker Kidney stones Major depressive disorder with single episode, in remission ([facility]) 08/24/2016 Morbid obesity with BMI of 40.0-44.9, adult ([facility]) Neuropathy Obstructive sleep apnea syndrome, severe On [...] lung disease in setting ofankylosing spondylitis and lumber chain offbearer MTX use. Plan: - obtain echo here, [...] INFORMATION: Kellen Bryan MD Internal Medicine, PGY-3 [phone] 08/16/2022 12:26 PM [facility] STAFF PHYSICIAN NOTE OF PERSONAL INVOLVEMENT IN [...] SERVICE: August 16, 2022 documented in this encounterGenesis Hospital04-25-2023 Miscellaneous Notes* Telephone Encounter - Geovanni Baker - 08/15/2022 12:46 PM EDT Images received from [facility] by mail. Images uploaded to [employer]. Patient has a future appointment on: 08/16/22. Date of last OV: N/A. Geovanni Baker August 15, 2022 12:46 PM documented in this encounterGenesis Hospital04-20-2023 NoteNYHC- II Continue GDMT- ASA, lipitor, toprol and aldactone. Diuretic therapy- on hold r/t orthostasis- currently euvolemic without exacerbation Monitor daily weights, I&O, fluid restriction 1.5-2L/day, renal function and electrolytesUnProMedica Memorial Hospital04-20-2023 NoteWill add pyridostigmine regime today- d/w pt to start with 60 mg tid, if no improvement of symptoms in 2-3 days may increase to 90 mg tid, again if no improvement in 2-3 days may then increase to 120 mg tid. Continue midodrine. IN light of HFrEF [facility] with Nazia Cohn for further evaluation and managementUnProMedica Memorial Hospital04-20-2023 NotePatient here for follow up tilt table test done at [facility]. Review of Systems Cardiovascular: Positive for chest pain, dyspnea on exertion and near-syncope. Musculoskeletal: Positive for arthritis, back pain and joint pain. Neurological: Positive for dizziness, light-headedness and loss of balance. All other systems reviewed and are negative.[facility] 08-10-2022 NoteUTP CARDIOLOGY PROGRESS NOTE HPI: Elena Felix is a 61 y.o. male here for 1 month f/U for orthostatic hypotension. Known medical h/o HTN, HPL, NICM- HFrEf. Patient here for follow up tilt table test done at [facility]. Midodrine was increased to 5 mg [...] 90 mg tid, ag (more content not included)...[facility]04-10-2023 History of Present illness Narrative* Izzy Duvall RN - 07/31/2022 2:30 PM EDT Instructed on objectives and procedure of a tilt study documented in this encounterBON Merchant [employer] Phone: 1(500) 676-894903-22-2023 NotePatient here for follow up echo and [...] balance. All other systems reviewed and are negative.[facility] 07-12-2022 NoteCardiology Follow Up Progress Note - [facility] HPI: Elena Felix is a 61 [...] all major muscle g (more content not included)...[facility]03-22-2023 Miscellaneous Notes* Telephone Encounter - Geovanni Jonathan - 07/12/2022 1:54 PM EDT Contacted patient via Phone -no answer; VMM left requesting for cardiac records prior to appointment on 08/16/22. Geovanni Baker July 12, 2022 1:54 PM documented in this encounterGenesis Hospital03-15-2023 Milvia BRAGG from cardiac rehab reports [...] Maria Teresa Ba NP Division of Cardiology, [facility]- [phone] Pager- [phone] Email- [email or web address]03-15-2023 Milvia BRAGG from cardiac rehab reports [...] tachycardia if it continues. Maria Teresa Ba PENCIL INSPECTOR Division of Cardiology, [facility] [phone] Pager- [phone] Email- [email or web address] Milvia BRAGG from cardiac rehab states that [...] Maria Teresa Ba NP Division of Cardiology, [facility] [phone] Pager- [phone] Email- [email or web address] NotePatient here for 6 mo follow up [...] takes both spironolactone and metoprolol in the AM.[facility] 05-31-2022 NoteCardiology Follow Up Progress Note Chief [...] gain, SOB, worsening LE swelling. [DISCONTINUED] HYDROcodone-acetaminophen ([place]) 5-325 mg tablet hydrocodone 5 mg-acetaminophen 325 [...] No focal deficits noted. (more content not included)...[facility]01-16-2023 Evaluation note* Encounter Date Diagnosis Assessment Notes [...] from Dr. Hodges's office and his medications. [facility] Other 01-09-2023 Hospital Discharge instructions Patient Education [...] urethra. Follow these instructions at home: Take gyxf-vyw-nthacrf and prescription medicines only as told by [...] 04/09/2006 Document Revised: 03/04/2019 Document Reviewed: 05/14/2017 Drill Map Patient Education 2020 [employer]. Follow Up Care 09/05/2021 12:02:11 With:ARABELLA MUNIZ, eJrrod Moya, CLIFL Address: [facility] [address], [place] [phone] When:Within 1 Year(s) [facility] Sandip 09-28-2022 History of Present illness Narrative* Merly Marti MD - 01/18/2022 10:38 AM EDT PATIENT NAME: Elena Felix CLINIC NO.: [id number] ATTENDING PHYSICIAN: Merly Marti MD DATE OF [...] PAST MEDICAL HISTORY Diagnosis Date Ankylosing spondylitis ([facility]) Dr Hogdes Ankylosing spondylitis ([facility]) Arthritis Back pain Cardiomyopathy ([facility]) Nonischemic Congestive Cerebrovascular small vessel disease 08/24/2016 On ASA DVT (deep venous thrombosis) ([facility]) Esophageal reflux Former smoker Kidney stones Major depressive disorder with single episode, in remission ([facility]) 08/24/2016 Morbid obesity with BMI of 40.0-44.9, adult ([facility]) Neuropathy Obstructive sleep apnea syndrome, severe On [...] 0.95 (L) 1.00 - 4.00 k/uL Final [place]% Date Value Ref Range Status 12/28/2021 12.7 % Final Abs [place] Date Value Ref Range Status 12/28/2021 0.69 [...] unprovoked. He was not 100% committed to lumber chain offbearer therapy. I reviewed his hypercoag labs and [...] do not hesitate to contact me at [phone]. Merly Marti MD Hematology/Medical Oncology [facility] I spent a total of 15 minutes on the date of the service which included preparing to see the patient, [id number] patient care, completing clinical documentation, obtaining and/or reviewing separately obtained history, ordering medications, tests, or procedures, and communicating with other HCPs (not separately reported). Medical Decision Making: Medical Decision Making Level: 1 - N/A CC: Silvana Lundberg MD documented in this encounterGenesis Hospital09-12-2022 Miscellaneous Notes* Telephone Encounter - Eli [...] next appointment as well, documented in this encounterGenesis Hospital09-12-2022 Miscellaneous Notes* Telephone Encounter - Meaghan [...] next appointment as well, documented in this encounterGenesis Hospital09-07-2022 History of Present illness Narrative* Merly Marti MD - 12/28/2021 2:43 PM EDT PATIENT NAME: Elena Felix CLINIC NO.: [id number] ATTENDING PHYSICIAN: Merly Marti MD DATE OF SERVICE: December 28, [address] Merly Marti [address] [place] [address] here is an update on a follow [...] PAST MEDICAL HISTORY Diagnosis Date Ankylosing spondylitis ([facility]) Dr Hodges Ankylosing spondylitis ([facility]) Arthritis Back pain Cardiomyopathy ([facility]) Nonischemic Congestive Cerebrovascular small vessel disease 08/24/2016 On ASA DVT (deep venous thrombosis) ([facility]) Esophageal reflux Former smoker Kidney stones Major depressive disorder with single episode, in remission ([facility]) 08/24/2016 Morbid obesity with BMI of 40.0-44.9, adult ([facility]) Neuropathy Obstructive sleep apnea syndrome, severe On [...] 12/15/2016 1.98 1.00 - 4.00 k/uL Final [place]% Date Value Ref Range Status 12/15/2016 10.6 % Final Abs [place] Date Value Ref Range Status 12/15/2016 0.99 [...] unprovoked. He was not 100% committed to fdc theraoy and is undergoing evaluation with hyper coag panel to decide if Ok to stop therapy and or he needs to resume, Will follow up on the blood work and discuss with him Thank you for the kind referral. If there are any questions and or concerns please do not hesitate to contact me at [phone]. Merly Marti MD Hematology/Medical Oncology [facility] Ryder spent a total of 20 minutes on the date of the service which included preparing to see the patient, [id number] patient care, completing clinical documentation, obtaining and/or reviewing separately obtained history, ordering medications, tests, or procedures, and communicating with other HCPs (not separately reported). Medical Decision Making: Medical Decision Making Level: 1 - N/A CC: Silvana Lundberg MD documented in this encounterGenesis Hospital08-09-2022 NoteEXAMINATION: XR CHEST 2 V HISTORY: [...] Electronically authenticated by: MAJOR REA Date: 2021-11-29 19:09[facility]06-01-[facility] Nurse Note* Annmarie Ralph MA - 09/21/2021 3:46 PM EDT Patient was in ER yesterday due to Bronchitis. Annmarie Ralph MA documented in this encounterGenesis Hospital06-01-2022 History of Present illness Narrative* Merly Marti MD - 09/21/2021 3:40 PM EDT Images from the original note were not included. PATIENT NAME: Elena Felix [facility] NO.: [id number] ATTENDING PHYSICIAN: Merly Marti MD DATE OF SERVICE: September 21, [address] Silvana Lundberg thank you for referring Mr. Elena Felix for an opinion regarding DVT. CHIEF COMPLAINT: DVT HPI: Elena Felix is a 61 year old year old male with past medical history significant for congestive heart failure followed at [facility], benign prostatic hypertrophy as well as ankylosing spondylitis who had undergone a [id number] PSF which was complicated by C. difficile [...] oftherapy. 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) Dr Hodges Ankylosing spondylitis ([facility]) Arthritis Back pain Cardiomyopathy ([facility]) Nonischemic Congestive Cerebrovascular small vessel disease 08/24/2016 On ASA DVT (deep venous thrombosis) ([facility]) Esophageal reflux Former smoker Kidney stones Major depressive disorder with single episode, in remission ([facility]) 08/24/2016 Morbid obesity with BMI of 40.0-44.9, adult ([facility]) Neuropathy Obstructive sleep apnea syndrome, severe On [...] 12/15/2016 1.98 1.00 - 4.00 k/uL Final [place]% Date Value Ref Range Status 12/15/2016 10.6 % Final Abs [place] Date Value Ref Range Status 12/15/2016 0.99 [...] me to participate in Mr. Elena Felix [facility], if there are any questions or concerns please do not hesitate to contact me at the number below. Merly Marti M.D. Hematology/Medical Oncology [facility] [place] [phone] CC: Silvana Lundberg MD I spent a total of 50 minutes on the date of the service which included preparing to see the patient, [id number] patient care, completing clinical documentation, obtaining and/or reviewing separately obtained history, performing a medically appropriate examination, counseling and educating the pat ient/family/caregiver and ordering medications, tests, or procedures. documented in this encounterGenesis Hospital08-19-2017 History of Past illness Narrative* Problem Noted Date Resolved Date TIFFANIE (acute kidney injury) 12/09/20162016 Anticoagulation management encounter 10/27/2016 10/30/2016 Wound drainage 09/23/2016 10/30/2016 Pneumonia 12/15/2016 documented as of this encounter (statuses as of 09/16/2021) [address]19-2017 History of Past illness Narrative* Problem Noted Date Resolved Date TIFFANIE (acute kidney injury) 12/09/20162016 Anticoagulation management encounter 10/27/2016 10/30/2016 Wound drainage 09/23/2016 10/30/2016 Pneumonia 12/15/2016 documented as of this encounter (statuses as of 09/29/2021) [address]19-2017 History of Past illness Narrative* Problem Noted Date Resolved Date TIFFANIE (acute kidney injury) 12/09/20162016 Anticoagulation management encounter 10/27/2016 10/30/2016 Wound drainage 09/23/2016 10/30/2016 Pneumonia 12/15/2016 documented as of this encounter (statuses as of 12/28/2021) [address]19-2017 History of Past illness Narrative* Problem Noted Date Resolved Date TIFFANIE (acute kidney injury) 12/09/20162016 Anticoagulation management encounter 10/27/2016 10/30/2016 Wound drainage 09/23/2016 10/30/2016 Pneumonia 12/15/2016 documented as of this encounter (statuses as of 01/02/2022) [address]19-2017 History of Past illness Narrative* Problem Noted Date Resolved Date TIFFANIE (acute kidney injury) 12/09/20162016 Anticoagulation management encounter 10/27/2016 10/30/2016 Wound drainage 09/23/2016 10/30/2016 Pneumonia 12/15/2016 documented as of this encounter (statuses as of 01/18/2022) [address]19-2017 History of Past illness Narrative* Problem Noted Date Resolved Date TIFFANIE (acute kidney injury) 12/09/20162016 Anticoagulation management encounter 10/27/2016 10/30/2016 Wound drainage 09/23/2016 10/30/2016 Pneumonia 12/15/2016 documented as of this encounter (statuses as of 07/12/2022) [address]19-2017 History of Past illness Narrative* Problem Noted Date Resolved Date TIFFANIE (acute kidney injury) 12/09/20162016 Anticoagulation management encounter 10/27/2016 10/30/2016 Wound drainage 09/23/2016 10/30/2016 Pneumonia 12/15/2016 documented as of this encounter (statuses as of 08/15/2022) [address]19-2017 History of Past illness Narrative* Problem Noted Date Resolved Date TIFFANIE (acute kidney injury) 12/09/20162016 Anticoagulation management encounter 10/27/2016 10/30/2016 Wound drainage 09/23/2016 10/30/2016 Pneumonia 12/15/2016 documented as of this encounter (statuses as of 08/16/2022) [address]19-2017 History of Past illness Narrative* Problem Noted Date Resolved Date TIFFANIE (acute kidney injury) 12/09/20162016 Anticoagulation management encounter 10/27/2016 10/30/2016 Wound drainage 09/23/2016 10/30/2016 Pneumonia 12/15/2016 documented as of this encounter (statuses as of 08/16/2022) [address]19-2017 History of Past illness Narrative* Problem Noted Date Resolved Date TIFFANIE (acute kidney injury) 12/09/20162016 Anticoagulation management encounter 10/27/2016 10/30/2016 Wound drainage 09/23/2016 10/30/2016 Pneumonia 12/15/2016 documented as of this encounter (statuses as of 08/28/2022) [address]19-2017 History of Past illness Narrative* Problem Noted Date Resolved Date TIFFANIE (acute kidney injury) 12/09/20162016 Anticoagulation management encounter 10/27/2016 10/30/2016 Wound drainage 09/23/2016 10/30/2016 Pneumonia 12/15/2016 documented as of this encounter (statuses as of 08/30/2022) [address]19-2017 History of Past illness Narrative* Problem Noted Date Resolved Date TIFFANIE (acute kidney injury) 12/09/20162016 Anticoagulation management encounter 10/27/2016 10/30/2016 Wound drainage 09/23/2016 10/30/2016 Pneumonia 12/15/2016 documented as of this encounter (statuses as of 09/19/2022) [address]19-2017 History of Past illness Narrative* Problem Noted Date Resolved Date TIFFANIE (acute kidney injury) 12/09/20162016 Anticoagulation management encounter 10/27/2016 10/30/2016 Wound drainage 09/23/2016 10/30/2016 Pneumonia 12/15/2016 documented as of this encounter (statuses as of 10/05/2022) [address]19-2017 History of Past illness Narrative* Problem Noted Date Resolved Date TIFFANIE (acute kidney injury) 12/09/20162016 Anticoagulation management encounter 10/27/2016 10/30/2016 Wound drainage 09/23/2016 10/30/2016 Pneumonia 12/15/2016 documented as of this encounter (statuses as of 10/06/2022) [address]19-2017 History of Past illness Narrative* Problem Noted Date Resolved Date TIFFANIE (acute kidney injury) 12/09/20162016 Anticoagulation management encounter 10/27/2016 10/30/2016 Wound drainage 09/23/2016 10/30/2016 Pneumonia 12/15/2016 documented as of this encounter (statuses as of 10/16/2022) [address]19-2017 History of Past illness Narrative* Problem Noted Date Resolved Date TIFFANIE (acute kidney injury) 12/09/20162016 Anticoagulation management encounter 10/27/2016 10/30/2016 Wound drainage 09/23/2016 10/30/2016 Pneumonia 12/15/2016 documented as of this encounter (statuses as of 10/17/2022) [address]19-2017 History of Past illness Narrative* Problem Noted Date Resolved Date TIFFANIE (acute kidney injury) 12/09/20162016 Anticoagulation management encounter 10/27/2016 10/30/2016 Wound drainage 09/23/2016 10/30/2016 Pneumonia 12/15/2016 documented as of this encounter (statuses as of 10/17/2022) [address]19-2017 History of Past illness Narrative* Problem Noted Date Resolved Date TIFFANIE (acute kidney injury) 12/09/20162016 Anticoagulation management encounter 10/27/2016 10/30/2016 Wound drainage 09/23/2016 10/30/2016 Pneumonia 12/15/2016 documented as of this encounter (statuses as of 10/23/2022) [address]19-2017 History of Past illness Narrative* Problem Noted Date Diagnosed Date Resolved Date TIFFANIE (acute kidney injury) 12/09/2016 Anticoagulation management encounter 10/27/2016 10/30/2016 Wound drainage 09/23/2016 10/30/2016 Pneumonia 12/15/2016 documented as of this encounter (statuses as of 12/01/2022) [facility] of Past illness Narrative* Problem Noted Date Diagnosed Date Resolved Date TIFFANIE (acute kidney injury) 12/09/2016 Anticoagulation management encounter 10/27/2016 10/30/2016 Wound drainage 09/23/2016 10/30/2016 Pneumonia 12/15/2016 documented as of this encounter (statuses as of 02/05/2023) [address]19-2017 History of Past illness Narrative* Problem Noted Date Diagnosed Date Resolved Date TIFFANIE (acute kidney injury) 12/09/2016 Anticoagulation management encounter 10/27/2016 10/30/2016 Wound drainage 09/23/2016 10/30/2016 Pneumonia 12/15/2016 documented as of this encounter (statuses as of 02/23/2023) [facility] Future Appointments Appointment Date:05/04/2023 08:15:00 AM Scheduled Provider:Jerrod BELL MD Location:[facility] Appointment Type:URO Office Visit [facility] evaluation noteNo Assessments Information Available [facility] Diagnosis Acute deep vein thrombosis (DVT) of distal end of left lower extremity (HCC)- Primary documented [facility] encounter [facility] [place] [facility]* Diagnosis Acute deep vein thrombosis (DVT) of distal end of left lower extremity (HCC)- Primary [facility] [place] [facility]* Diagnosis History of DVT (deep vein thrombosis)- Primary Personal history of venous thrombosis and embolism documented in this encounter [facility] [place] [facility]* Diagnosis Orthostatic hypotension POTS (postural orthostatic tachycardia syndrome) Tachycardia, unspecified documented in this encounter [facility] Work Phone: evaluation note* Diagnosis POTS (postural orthostatic tachycardia syndrome)- Primary Tachycardia, unspecified Lightheadedness Dizziness and giddiness POTS (postural orthostatic tachycardia syndrome) Tachycardia, unspecified documented [facility] this encounter [facility] [place] [facility]* Diagnosis Lightheadedness- Primary Dizziness and giddiness [...] syndrome) Tachycardia, unspecified documented in this encounter [facility] [place] [facility]* Diagnosis Chronic diastolic congestive heart failure (HCC)- Primary Chronic diastolic heart failure documented in this encounter [facility] [place] [facility]* Diagnosis Ankylosing spondylitis of multiple sites in spine (HCC) Ankylosing spondylitis documented in this encounter [facility] [place] [facility]* Diagnosis Exertional dyspnea Other dyspnea and respiratory abnormality Other secondary pulmonary hypertension (HCC) documented in this encounter [facility] [place] [facility]* Diagnosis Disturbance of skin sensation- Primary Lightheadedness Dizziness and giddiness Change in blood pressure Other abnormal clinical finding Orthostatic hypotension Tremulousness Abnormal involuntary movements documented in this encounter [facility] note* Diagnosis Radiculopathy, lumbar region- Primary Thoracic or lumbosacral neuritis or radiculitis, unspecified Disturbance of skin sensation 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 Pain in right leg Paresthesia of skin Disturbance of skin sensation documented in this encounter [facility] note* Diagnosis Dilated cardiomyopathy (HCC)- Primary Other primary cardiomyopathies documented in this encounter [facility] note* Diagnosis Ankylosing spondylitis of multiple sites in spine (HCC)- Primary Ankylosing spondylitis documented in this encounter [facility] noteNo assessment information [facility] Work Phone: Evaluation noteNo InformationNortEncompass [facility] [employer] Other Evaluation note* Diagnosis SOB (shortness of breath)- Primary Shortness of breath 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 Palpitations documented in this encounter [facility] note* Diagnosis Shortness of breath- Primary Near syncope Syncope and collapse documented in this encounter [facility] note* Diagnosis Exertional dyspnea Other dyspnea and respiratory abnormality documented in this encounter [facility] general Narrative - Reported* Type Description Date Medical History Arthritis of spine Medical History Peripheral neuropathy Medical History Tachycardia Medical History Leg cramps Medical History asthma Surgical History back surgery x 3 Surgical History right hip replaced Surgical History right hand x 2 Hospitalization History see above Hospitalization History infected incision and se psis and blood clot [facility] [employer] Other History general Narrative - Reported* Type [...] incision and se psis and blood clot [place] [employer] Other Hospital course Narrative No data available for this section [facility] progress note No data available for this section [facility] reason for referral (narrative)* Outpatient Procedure (Routine) - Authorized Specialty Diagnoses / Procedures Referred By Chen t Referred To [facility] Diagnoses POTS (postural orthostatic tachycardia syndrome) Procedures ECG COMPLETE ECG ROUTINE ECG W/LEAST 12 LDS W/I&R Austin Clark MD [address] [id number] [facility] [place] [address] [place] [address] Referral ID Status Reason Start Date Expiration Date Visits Requested Visits Authorized [id number] Authorized Auto-Generat ed Referral 08/16/2022 08/16/2023 1 1 [facility] for referral (narrative)* Diagnostic Procedure Only (Routine) - Closed Specialty Diagnoses / Procedures Referred By Chen anne Referred To Contact MOLECULAR & FUNCTIONAL IMAGING Diagnoses Exertional dyspnea Other secondary pulmonary hypertension (HCC) Procedures NM LUNG VENT / PERF VQ PULMONARY VENTILATION & PERFUSION IMAGING Tricia Howard MD [address] [place] [address] Molecular & Functional Imaging [address] [place] [address] Referral ID Status Reason Start Date Expiration Date V isits Requested Visits Authorized [id number] Closed Auto-Generate d Referral 08/16/2022 09/15/2023 1 1 [facility] for referral (narrative)* Outpatient Procedure (Routine) - Authorized Specialty Diagnoses / Procedures Referred By Chen anne Referred To Contact [facility] Diagnoses Disturbance of skin sensation Procedures EMG(NEURO/NI) NERVE CONDUCTION STUDIES 9-10 STUDIES Anna North, ADMISSIONS SUPERVISOR.TELEPHONE WORKER [address] [place] [address] Neurological [place] [address] [place] [address] Referral ID Status Reason Start Date Expiration Date Visits Requested Visits Authorized [id number] Authorized Auto-Generat ed Referral 10/06/2022 10/07/2023 1 1 [facility] for referral (narrative)* Outpatient Procedure (Routine) - Authorized Specialty Diagnoses / Procedures Referred By Karsonac t Referred To Contact [facility] Diagnoses SOB (shortness of breath) Procedures CARDIOPULMONARY EXERCISE TEST PULMONARY STRESS TESTING Tricia Howard MD [address] [place] [address] Respiratory [place] [address] [place] [id number] Referral ID Status Reason Start Date Expiration Date Visits Requested Visits Authorized [id number] Authorized Auto-Generat ed Referral 11/17/2022 12/17/2023 1 1 [facility] for referral (narrative)* Diagnostic Procedure Only (Routine) - Closed Specialty Diagnoses / Procedures Referred By Contyaron t Referred To Contact [facility] Diagnoses Exertional dyspnea Procedures ECHO ECHO TTHRC R-T 2D W/WOM-MODE COMPL SPEC&COLR D Tricia Howard MD [address] [place] [address] [place] [facility] V[facility] [place] [address] [place] [address] Referral ID Status Reason Start Date Expiration Date V isits Requested Visits Authorized [id number] Closed Auto-Generate d Referral 08/31/2022 11/29/2022 1 1 [facility] for visit Narrative* Diagnostic Procedure Only (Routine) - Closed Specialty Diagnoses / Procedures Referred By Contac t Referred To Contact [facility] Diagnoses Exertional dyspnea Procedures ECHO ECHO TTHRC R-T 2D W/WOM-MODE COMPL SPEC&COLR D Tricia Howard MD [address] [place] [address] [place] [facility] [place] [address] [place] [id number] Referral ID Status Reason Start Date Expiration Date V isits Requested Visits Authorized [id number] Closed Auto-Generate d Referral 08/31/2022 11/29/2022 1 1 [facility] Advance Directives No Advanced Directives Records Found Advance Directive Response Recorded Date/ Time Advance Directives No January 31, 2017 11:35am Documents on File Type Date Recorded Patient Shoe Stitcher Odd Expl anation Advance Directive(s) 11/29/2017 5:55 AM Advance Directive(s) 11/19/2017 8:19 AM Advance Directive(s) 11/19/2017 10:21 AM Advance Directive(s) 12/10/2016 12:37 PM Advance Directive(s) 09/24/2016 2:38 PM Advance Directive(s) 08/24/2016 12:03 PM Advance Directive(s) 08/24/2016 12:04 PM Documents on File Type Date Recorded Patient Shoe Stitcher Odd Expl anation Advance Directive(s) 08/24/2016 12:04 PM Documents on File Type Date Recorded Patient Shoe Stitcher Odd Expl anation Advance Directive(s) 08/24/2016 12:04 PM [...] FOR VELOCITY FLOW MAPPING Tricia Howard MD [address] [place] [address] Mr Imaging Referral ID Status Reason Start Date Expiration Date Visits Requested Visits Authorized [id number] Pending Review Auto-Generat ed Referral 10/17/2022 11/16/2023 1 1 Specialty Diagnoses / Procedures Referred By Contac t Referred To Contact MR IMAGING Diagnoses Dilated cardiomyopathy (HCC) Procedures MRI CARDIAC MORPH FUNC WO/W IVCON CARDIAC MRI W/WO CONTRAST & FURTHER SEQ Tricia Howard MD [address] [place] [address] Mr Imaging Referral ID Status Reason Start Date Expiration Date Visits Requested Visits Authorized [id number] Pending Review Auto-Generat ed Referral 10/17/2022 11/16/2023 1 1 Specialty Diagnoses / Procedures Referred By Contac t Referred To Contact Neurology Diagnoses Lightheadedness Change in blood pressure Procedures CONSULT TO NEUROLOGY OFFICE/OUTPATIENT [facility] 60-74 MINUTES Tricia Howard MD [address] [place] [phone] Referral ID Status Reason Start Date Expiration Date Visits Requested Visits Authorized [id number] Authorized PCP Requested Referral 08/16/2022 08/16/2023 1 1 Specialty Diagnoses / Procedures Referred By Contac t Referred To Contact Rheumatology Diagnoses Ankylosing spondylitis of multiple sites in spine (HCC) Procedures CONSULT TO RHEUM/IMMUN DISEASE OFFICE/OUTPATIENT [facility] 60-74 MINUTES Tricia Howard MD [address] [place] [phone] Referral ID Status Reason Start Date Expiration Date V isits Requested Visits Authorized [id number] Closed PCP Requested Referral 08/16/2022 08/16/2023 1 1 Specialty Diagnoses / Procedures Referred By Contac t Referred To Contact Diagnoses Lightheadedness POTS (postural orthostatic tachycardia syndrome) Autonomic dysfunction Procedures CONSULT TO [facility] OFFICE/OUTPATIENT [facility] 60-74 MINUTES Tricia Howard MD [address] [place] [address] Referral ID Status Reason Start Date Expiration Date Visits Requested Visits Authorized [id number] Authorized PCP Requested Referral 08/16/2022 08/16/2023 1 1 Specialty Diagnoses / Procedures Referred By Contac t Referred To Contact MOLECULAR & FUNCTIONAL IMAGING Diagnoses Exertional dyspnea Other secondary pulmonary hypertension ([facility]) Procedures NM LUNG VENT / PERF VQ PULMONARY VENTILATION & PERFUSION IMAGING Tricia Howard MD [address] [place] [phone] Molecular & Functional Imaging [address] [place] [address] Referral ID Status Reason Start Date Expiration Date Visits Requested Visits Authorized [id number] Pending Review Auto-Generat ed Referral 08/16/2022 09/15/2023 1 1 Specialty Diagnoses / Procedures Referred By Contac t Referred To Contact [facility] Diagnoses Exertional dyspnea Procedures ECHO ECHO TTHRC R-T 2D W/WOM-MODE COMPL SPEC&COLR D Tricia Howard MD [address] [place] [address] [place] [facility] Vascular [address] [address] Referral ID Status Reason Start Date Expiration Date Visits Requested Visits Authorized [id number] Pending Review Auto-Generat ed Referral 08/16/2022 08/16/2023 1 1 Specialty Diagnoses / Procedures Referred By Contac t Referred To Contact [facility] Diagnoses Lightheadedness Change in blood pressure Procedures ECG COMPLETE ECG ROUTINE ECG W/LEAST 12 LDS W/I&R Tricia Howard MD [address] [place] [address] [place] [id number] Referral ID Status Reason Start Date Expiration Date V isits Requested Visits Authorized [id number] Closed Auto-Generate d Referral 06/27/2022 06/27/2023 1 1 Specialty Diagnoses / Procedures Referred By Contac t Referred To Contact Diagnoses Orthostatic hypotension POTS (postural orthostatic tachycardia syndrome) Procedures Tilt Table Test Carlos Krishna, RAGINI - JARAD [address] [facility] [place] [address] Referral ID Status Reason Start Date Expiration Date Visits Re quested Visits Authorized [id number] Closed 07/24/2022 07/24/2023 1 1 Additional Source Comments (unrecognized sect ion and content) No Status Records FoundNo Status Records FoundNo Status Records FoundNo Status Records FoundNo Status Records FoundNo Status Records FoundNo Status Records Found INFORMATION SOURCE (unrecogn ized section and content) DATE CREATED AUTHOR 06/29/2021 [facility] DATE CREATED AUTHOR AUTHOR'S ORGANIZ ATION 08/01/2022 Maria Guadalupe Garcia [facility] DATE CREATED AUTHOR AUTHOR'S ORGANIZ ATION 09/07/2022 Hua Freyue [facility] DATE CREATED AUTHOR AUTHOR'S ORGANIZ ATION 10/04/2022 [facility] DATE CREATED AUTHOR AUTHOR'S ORGANIZ ATION 02/13/2023 [facility] DATE CREATED AUTHOR AUTHOR'S ORGANIZ ATION 04/21/2023 Brandon Bruno [facility] DATE CREATED AUTHOR AUTHOR'S ORGANIZ ATION 05/09/2023 [facility] Source Comments (unrecognize d section and content) In the event this informatio n is protected by the Federal Confidentiality of Alcohol and Drug Abuse Patient Records regulations: The Federal rules restrict any use of the information to criminally investigate or prosecute any alcohol or drug abuse patient.[facility] the event this information is protected by the Federal Confidentiality of Alcohol and Drug Abuse Patient Records regulations: The Federal rules restrict any use of the information to criminally investigate or prosecute any alcohol or drug abuse patient.[facility] HospitalIn the event this information is protected by the Federal Confidentiality of Alcohol and Drug Abuse Patient Records regulations: The Federal rules restrict any use of the information to criminally investigate or prosecute any alcohol or drug abuse patient.[facility] HospitalIn the event this information is protected by the Federal Confidentiality of Alcohol and Drug Abuse Patient Records regulations: The Federal rules restrict any use of the information to criminally investigate or prosecute any alcohol or drug abuse patient.[facility] HospitalIn the event this information is protected by the Federal Confidentiality of Alcohol and Drug Abuse Patient Records regulations: The Federal rules restrict any use of the information to criminally investigate or prosecute any alcohol or drug abuse patient.[facility] HospitalIn the event this information is protected by the Federal Confidentiality of Alcohol and Drug Abuse Patient Records regulations: The Federal rules restrict any use of the information to criminally investigate or prosecute any alcohol or drug abuse patient.[facility] HospitalIn the event this information is protected by the Federal Confidentiality of Alcohol and Drug Abuse Patient Records regulations: The Federal rules restrict any use of the information to criminally investigate or prosecute any alcohol or drug abuse patient.[facility] HospitalIn the event this information is protected by the Federal Confidentiality of Alcohol and Drug Abuse Patient Records regulations: The Federal rules restrict any use of the information to criminally investigate or prosecute any alcohol or drug abuse patient.[facility] HospitalIn the event this information is protected by the Federal Confidentiality of Alcohol and Drug Abuse Patient Records regulations: The Federal rules restrict any use of the information to criminally investigate or prosecute any alcohol or drug abuse patient.[facility] HospitalIn the event this information is protected by the Federal Confidentiality of Alcohol and Drug Abuse Patient Records regulations: The Federal rules restrict any use of the information to criminally investigate or prosecute any alcohol or drug abuse patient.[facility] HospitalIn the event this information is protected by the Federal Confidentiality of Alcohol and Drug Abuse Patient Records regulations: The Federal rules restrict any use of the information to criminally investigate or prosecute any alcohol or drug abuse patient.[facility] HospitalIn the event this information is protected by the Federal Confidentiality of Alcohol and Drug Abuse Patient Records regulations: The Federal rules restrict any use of the information to criminally investigate or prosecute any alcohol or drug abuse patient.[facility] HospitalIn the event this information is protected by the Federal Confidentiality of Alcohol and Drug Abuse Patient Records regulations: The Federal rules restrict any use of the information to criminally investigate or prosecute any alcohol or drug abuse patient.[facility] HospitalIn the event this information is protected by the Federal Confidentiality of Alcohol and Drug Abuse Patient Records regulations: The Federal rules restrict any use of the information to criminally investigate or prosecute any alcohol or drug abuse patient.[facility] HospitalIn the event this information is protected by the Federal Confidentiality of Alcohol and Drug Abuse Patient Records regulations: The Federal rules restrict any use of the information to criminally investigate or prosecute any alcohol or drug abuse patient.[facility] HospitalIn the event this information is protected by the Federal Confidentiality of Alcohol and Drug Abuse Patient Records regulations: The Federal rules restrict any use of the information to criminally investigate or prosecute any alcohol or drug abuse patient.[facility] HospitalIn the event this information is protected by the Federal Confidentiality of Alcohol and Drug Abuse Patient Records regulations: The Federal rules restrict any use of the information to criminally investigate or prosecute any alcohol or drug abuse patient.[facility] HospitalIn the event this information is protected by the Federal Confidentiality of Alcohol and Drug Abuse Patient Records regulations: The Federal rules restrict any use of the information to criminally investigate or prosecute any alcohol or drug abuse patient.[facility] HospitalIn the event this information is protected by the Federal Confidentiality of Alcohol and Drug Abuse Patient Records regulations: The Federal rules restrict any use of the information to criminally investigate or prosecute any alcohol or drug abuse patient.[facility] HospitalIn the event this information is protected by the Federal Confidentiality of Alcohol and Drug Abuse Patient Records regulations: The Federal rules restrict any use of the information to criminally investigate or prosecute any alcohol or drug abuse patient.[facility] HospitalIn the event this information is protected by the Federal Confidentiality of Alcohol and Drug Abuse Patient Records regulations: The Federal rules restrict any use of the information to criminally investigate or prosecute any alcohol or drug abuse patient.[facility] HospitalIn the event this information is protected by the Federal Confidentiality of Alcohol and Drug Abuse Patient Records regulations: The Federal rules restrict any use of the information to criminally investigate or prosecute any alcohol or drug abuse patient.[facility] HospitalIn the event this information is protected by the Federal Confidentiality of Alcohol and Drug Abuse Patient Records regulations: The Federal rules restrict any use of the information to criminally investigate or prosecute any alcohol or drug abuse patient.[facility] Care Teams (unrecognized sec tion and content) Tire Repairer Relationship Specialty Start Date End Date Silvana Lundberg MD [address] [place] [address] PCP - General Family Practice 07/15/15 Samuel Burnette Referring Pain Management 07/15/15 Tire Repairer Relationship Specialty Start Date End Date Silvana Lundberg MD [address] [place] [facility] [address] PCP - General Family Practice 07/15/15 Samuel Burnette Referring Pain Management 07/15/15 Tire Repairer Relationship Specialty Start Date End Date Silvana Lundberg MD [address] [place] [facility] [place] [address] PCP - General Family Practice 07/15/15 Samuel Burnette Referring Pain Management 07/15/15 Tire Repairer Relationship Specialty Start Date End Date Silvana Lundberg MD [address] [place] [facility] [place] [address] PCP - General Family Practice 07/15/15 Samuel Burnette Referring Pain Management 07/15/15 Tire Repairer Relationship Specialty Start Date End Date Silvana Lundberg MD [address] [place] [facility] [place] [address] PCP - General Family Medicine 07/15/15 Samuel Burnette Referring Pain Management 07/15/15 Tire Repairer Relationship Specialty Start Date End Date Silvana Lundberg MD [address] [place] [facility] [place] [address] PCP - General Family Medicine 07/15/15 Samuel Burnette [address] [place] [facility] [place] [address] Referring Pain Management 07/15/15 Tire Repairer Relationship Specialty Start Date End Date Silvana Lundberg MD [address] [place] [address] PCP - General Family Medicine 07/25/22 Tire Repairer Relationship Specialty Start Date End Date Silvana Lundberg MD [address] [place] [facility] [place] [address] PCP - General Family Medicine 07/15/15 Samuel Burnette [address] [place] [facility] [place] [address] Referring Pain Management 07/15/15 Maria Teresa Ba, TELEPHONE WORKER [address] [facility] [address] [place] [address] Family Medicine 08/16/22 Tire Repairer Relationship Specialty Start Date End Date Silvana Lundberg MD [address] [place] [facility] [place] [address] PCP - General Family Medicine 07/15/15 Samuel Burnette [address] [place] [facility] [place] [address] Referring Pain Management 07/15/15 Maria Teresa Ba, TELEPHONE WORKER [address] [place] [address] Family Medicine 08/16/22 Tire Repairer Relationship Specialty Start Date End Date Silvana Lundberg MD [address] [place] [facility] [place] [address] PCP - General Family Medicine 07/15/15 Samuel Burnette [address] [place] [facility] [place] [address] Referring Pain Management 07/15/15 Maria Teresa Ba, TELEPHONE WORKER [address] [place] [address] Family Medicine 08/16/22 Tire Repairer Relationship Specialty Start Date End Date Silvana Lundberg MD [address] [place] [facility] [place] [address] PCP - General Family Medicine 07/15/15 Samuel Burnette [address] [place] [facility] [place] [address] Referring Pain Management 07/15/15 JeseniaMaria Teresa lui, TELEPHONE WORKER [address] [place] [address] Family Medicine 08/16/22 Tire Repairer Relationship Specialty Start Date End Date Silvana Lundberg MD [address] [place] [place] [address] PCP - General Family Medicine 07/15/15 Samuel Burnette [address] [place] [facility] [place] [address] Referring Pain Management 07/15/15 Maria Teresa Ba, TELEPHONE WORKER [address] [place] [address] Family Medicine 08/16/22 Tire Repairer Relationship Specialty Start Date End Date Silvana Lundberg MD [address] [place] [place] [address] PCP - General Family Medicine 07/15/15 Samuel Burnette [address] [place] [facility] [place] [address] Referring Pain Management 07/15/15 Maria Teresa Ba, TELEPHONE WORKER [address] [place] [address] Family Medicine 08/16/22 Tire Repairer Relationship Specialty Start Date End Date Silvana Lundberg MD [address] [place] [place] [address] PCP - General Family Medicine 07/15/15 Samuel Burnette [address] [place] [place] [address] Referring Pain Management 07/15/15 [facility], TELEPHONE WORKER [address] [place] [address] Family Medicine 08/16/22 Tire Repairer Relationship Specialty Start Date End Date Silvana Lundberg MD [address] [place] [place] [address] PCP - General Family Medicine 07/15/15 Samuel Burnette [address] [place] [place] [address] Referring Pain Management 07/15/15 Maria Teresa Ba, TELEPHONE WORKER [address] [place] [address] Family Medicine 08/16/22 Tire Repairer Relationship Specialty Start Date End Date Silvana Lundberg MD [address] [place] [place] [address] PCP - General Family Medicine 07/15/15 Samuel Burnette [address] [place] [facility] [place] [address] Referring Pain Management 07/15/15 Qian Baissa, TELEPHONE WORKER [address] [place] [address] Family Medicine 08/16/22 Tire Repairer Relationship Specialty Start Date End Date Silvana Lundberg MD [address] [place] [place] [address] PCP - General Family Medicine 07/15/15 Samuel Burnette [address] [place] [place] [address] Referring Pain Management 07/15/15 Maria Teresa Ba, TELEPHONE WORKER [address] [place] [address] Family Medicine 08/16/22 Team Status: Inactive Member Role Status Dates Silvana Lundberg MD Attending Provider Active Tire Repairer Relationship Specialty Start Date End Date Silvana Lundberg MD [address] [place] [place] [address] PCP - General Family Medicine 07/15/15 Samuel Burnette [address] [place] [address] Referring Pain Management 07/15/15 Maria Teresa Ba, SAHIL [address] [facility] [address] [place] [address] Family Medicine 08/16/22 Team Status: Active Member Role Status Dates PHYSICIAN NO FAMILY Primary Care Provider Active Team Status: Inactive Member Role Status Dates Silvana Lundberg MD Attending Provider Active PHYSICIAN NO FAMILY Primary Care Provider Active Team Status: Inactive Member Role Status Dates PHYSICIAN NO FAMILY Primary Care Provider Active Brad Hodges MD Attending Provider Active Tire Repairer Relationship Specialty Start Date End Date Silvana Lundberg MD [address] [place] [address] PCP - General Family Medicine 07/15/15 Samuel Burnette [address] [place] [phone] Referring Pain Management 07/15/15 Maria Teresa Ba, TELEPHONE WORKER [address] [facility] [address] [place] [phone] Family Medicine 08/16/22 Tire Repairer Relationship Specialty Start Date End Date Silvana Lundberg MD [address] [place] [address] PCP - General Family Medicine 07/15/15 Samuel Burnette [address] [place] [address] Referring Pain Management 07/15/15 Maria Teresa Ba CNP [address] [facility] [address] [place] [address] Family Medicine 08/16/22 Reason for [...] Tilt Table Test Carlos Krishna APRN - PENCIL INSPECTOR [address] [facility] [address] [place] [address] Referral ID Status Reason Start Date Expiration Date V isits Requested Visits Authorized [id number] Not Required - RTA 07/24/2022 07/24/2023 1 [...] OXYGEN SATURATION AND CARDIAC OUTPUT [facility] [employer] [address] [place] [address] Referral ID Status Reason Start Date Expiration Date Visits Re quested Visits Authorized [id number] 1 1 Reason Comments Ankylosing Spondylitis Specialty Diagnoses / Procedures Referred By Contac t Referred To Contact Rheumatology Diagnoses Ankylosing spondylitis of multiple sites in spine (HCC) Procedures CONSULT TO RHEUM/IMMUN DISEASE OFFICE/OUTPATIENT NEW HIGH MDM 60-74 MINUTES Tricia Howard MD [address] [place] [address] Referral ID Status Reason Start Date Expiration Date V isits Requested Visits Authorized [id number] Closed PCP Requested Referral 08/16/2022 08/16/2023 1 1 Reason Comments Radiology NM Specialty Diagnoses / Procedures Referred By Contac t Referred To Contact MOLECULAR & FUNCTIONAL IMAGING Diagnoses Exertional dyspnea Other secondary pulmonary hypertension (HCC) Procedures NM LUNG VENT / PERF VQ PULMONARY VENTILATION & PERFUSION IMAGING Tricia Howard MD [address] [place] [id number] Molecular & Functional Imaging [address] [place] [address] Referral ID Status Reason Start Date Expiration Date V isits Requested Visits Authorized [id number] Closed Auto-Generate d Referral 08/16/2022 09/15/2023 1 1 Reason Comments New Patient Specialty Diagnoses / Procedures Referred By Contac t Referred To Contact Neurology Diagnoses Lightheadedness Change in blood pressure Procedures CONSULT TO NEUROLOGY OFFICE/OUTPATIENT NEW HIGH MDM 60-74 MINUTES Tricia Howard MD [address] [place] [id number] Referral ID Status Reason Start Date Expiration Date V isits Requested Visits Authorized [id number] Closed PCP Requested Referral 08/16/2022 08/16/2023 1 1 Reason Onset Date Comments EMG 10/16/2022 Specialty Diagnoses / Procedures Referred By Contac t Referred To Contact [facility] Diagnoses Disturbance of skin sensation Procedures EMG(NEURO/NI) NERVE CONDUCTION STUDIES 9-10 STUDIES Anna [place], ADMISSIONS SUPERVISOR.[place] [id number] [facility] [place] [address] [place] [address] Referral ID Status Reason Start Date Expiration Date V isits Requested Visits Authorized [id number] Closed Auto-Generate d Referral 10/06/2022 10/07/2023 1 [...] BE BASED ON THE PRIMARY CLINICAL RECORDS. [facility] [employer] [facility]. provides no warranty or guarantee of the accuracy or completeness of information in this document.
--- NOTE | 2023-05-10 12:44 | CT_ITS ---
The [address] [address] Patient Name: ELENA FELIX MRN: [id number] date: 1960 Sex: M Assigned Patient Location: CT Current Patient Location: CT Accession/Order Number: [id number] Exam Date: 05/10/2023 12:55 Report Date: 05/10/2023 15:53 At the request of: ASHER SHEETS Procedure: CT hip LT wo con EXAMINATION: CT hip LT wo con HISTORY: Closed Nondisplaced Fracture Of Left Femur S72.42SD COMPARISON: 05/07/2023 plain x-ray TECHNIQUE: Multi-planar CT images were created without IV contrast. Dose reduction techniques were achieved by using automated exposure control and/or adjustment of mA and/or kV according to patient size and/or use of iterative reconstruction technique. FINDINGS: BONES: Complex left subcapital and femoral neck fracture with internal fixation utilizing antegrade intramedullary andrew with proximal dynamic compression screw. Lytic changes around the fracture sites consistent with lytic healing with no significant periosteal reaction or bony bridging at this point. No additional fracture or dislocation. SOFT TISSUES: Negative. No visible soft tissue swelling. EFFUSION: None visible. OTHER: Negative. CT/CT hip LT wo con IMPRESSION: Complex nonangulated nondisplaced left femoral subcapital/neck fracture with internal fixation Electronically authenticated by: MAJOR REA Date: 05/10/2023 15:53
== END 2023-05-10 12:35 | disposition home or self-care (01) ==
LOC: CT 12:35
PROVIDERS: PCP Family Medicine; Visit Provider Orthopaedic Surgery
DX: S72.425D Nondisplaced fracture of lateral condyle of left femur, subsequent encounter for closed fracture with routine healing (principal)
CPT/HCPCS: 73700

== ENCOUNTER 2023-06-11 10:54 | Outpatient (OUT) | payer MEDICARE, SELFPAY ==
--- NOTE | 2023-06-11 | XR_ITS ---
The [address] [address] Patient Name: ELENA FELIX MRN: [id number] date: 1960 Sex: M Assigned Patient Location: Current Patient Location: Accession/Order Number: [id number] Exam Date: 06/11/2023 11:28 Report Date: 06/12/2023 14:54 At the request of: ASHER SHEETS Procedure: XR hip LT 2V w/ pelvis PROCEDURE: XR hip LT 2V w/ pelvis HISTORY: LEFT HIP PAIN COMPARISON: XR hip left 05/07/2023 FINDINGS: BONES:Prior left femoral neck repair without evidence of hardware fracture loosening. No change in alignment. SOFT TISSUES:No visible soft tissue swelling. EFFUSION:None visible. OTHER: Negative. XR/XR hip LT 2V w/ pelvis IMPRESSION: 1. Stable surgical changes without evidence of hardware failure or change in alignment. Electronically authenticated by: ASHER SOLANO Date: 06/12/2023 14:54
== END 2023-06-11 10:55 | disposition home or self-care (01) ==
LOC: EC 10:54
PROVIDERS: PCP Family Medicine; Visit Provider Orthopaedic Surgery
DX: S72.052K Unspecified fracture of head of left femur, subsequent encounter for closed fracture with nonunion (principal); Z98.890 Other specified postprocedural states
CPT/HCPCS: 73502

== ENCOUNTER 2023-07-09 08:48 | Outpatient (OUT) | payer MEDICARE, SELFPAY ==
--- NOTE | 2023-07-09 | XR_ITS ---
The [address] [address] Patient Name: ELENA FELIX MRN: [id number] date: 1960 Sex: M Assigned Patient Location: Current Patient Location: Accession/Order Number: [id number] Exam Date: 07/09/2023 08:50 Report Date: 07/09/2023 13:52 At the request of: ASHER SHEETS Procedure: XR hip LT 2V w/ pelvis PROCEDURE: XR hip LT 2V w/ pelvis COMPARISON: 06/11/2023 HISTORY: LEFT HIP AND PELVIS PAIN FINDINGS: BONES:Lumbosacral fusion with a screw across the right sacroiliac joint. Right hip arthroplasty. Remote left hip fracture with internal fixation utilizing a medullary andrew and dynamic compression screw. No acute fracture, dislocation or mechanical failure. Mild degenerative changes of the left hip with joint space narrowing and marginal osteophyte formation SOFT TISSUES:Negative. No visible soft tissue swelling. EFFUSION:None visible. OTHER: Negative. XR/XR hip LT 2V w/ pelvis IMPRESSION: No acute fracture or mechanical failure Electronically authenticated by: MAJOR REA Date: 07/09/2023 13:52
--- OUTSIDE RECORDS SUMMARY | 2023-07-09 08:59 | XMS_ITS | CCD ---
Author Name Unknown Address [address] [place] [address] Organization [facility] Care Team Providers Care Computer Science Instructor Name Role Phone Silvana Lundberg Primary Care Provider [phone] Aleksey Perez Attending Provider Silvana Lundberg MD [...] Referring Unavailable SILVANA LUNDBERG Primary Care Unavailable Cordelia BAXTER, Maria Teresa Unavailable CARLOS KRISHNA Attending Unavailable CARLOS KRISHNA Admitting Unavailable PANCHO, DR NOBLE Consulting Unavailable PANCHO, DR NOBLE Primary Care Unavailable MISC, DR WALL Attending Unavailable MISC, DR WALL Admitting Unavailable TAMIKA, DR SILVANA Ko Primary Care Unavailable NIKKIE TREJO Admitting Unavailable NIKKIE TREJO Attending Unavailable DR ASHRE SOLANO Consulting Unavailable TAMIKA, DR SILVANA Ko Primary [...] Care Unavailable ALGHOTHANI, MOHAMAD Admitting Unavailable ALGHOTHANI, MOHJEAN CARLOSD Attending Unavailable LUNDBERG, [...] MOHAMAD Consulting Unavailable ALGHOTHANI, MOHAMAD Attending Unavailable LUNDBERG, DR SILVANA Ko Primary Care Unavailable ALGHOTHANI, MOHAMAD Admitting Unavailable HODGES, DR SALINAS Attending Unavailable MISC, DR WALL Consulting Unavailable LUNDBERG, DR SILVANA Ko Primary Care Unavailable HODGES, DR SALINAS Admitting Unavailable ALGHOTHANI, MOHAMAD Consulting Unavailable ALGHOTHANI, MOHAMAD [...] ALBERTINA, BRYSON Consulting Unavailable MADAYANGELES Consulting Unavailable FAREED .DANIS Consulting Unavailable HODGES, DR SALINAS Admitting Unavailable [...] NO FAMILY, PHYSICIAN Primary Care Provider Unava MD Brad Lynch Attending Provider Jerrod BELL Attending Unavailable Jerrod BELL Attending Unavailable NO FAMILY, PHYSICIAN Primary Care Provider Unava MD Brad Lynch Attending Provider LUNDBERG, SILVANA E Primary Care Unavailable CAN, ANNA Referring Unavailable LUNDBERG, SILVANA E Primary Care Unavailable CAN, ANNA Referring Unavailable KARAMLOU, MERLY Referring Unavailable KARAMLOU, MERLY Attending Unavailable LUNDBERG, SILVANA E Primary Care Unavailable EMILY ANDERSON Attending Unavailable LUNDBERG, SILVANA E Primary Care Unavailable WASSIF, HEBA Attending Unavailable LUNDBERG, SILVANA E Primary Care Unavailable MAYUGA, AUSTIN Referring Unavailable LUNDBERG, SILVANA E Primary Care Unavailable WASSIF, HEBA Referring Unavailable MAYUGA, AUSTIN Attending Unavailable LUNDBERG, SILVANA E Primary Care Unavailable LUNDBERG, SILVANA E Primary Care Unavailable TIFFANY PETERSON Attending Unavailable EMILY ANDERSON Referring Unavailable EMILY ANDERSON Attending Unavailable MARQUIS ANDERSONINO Admitting Unavailable LUNDBERG, SILVANA E Primary Care Unavailable WASSIF, HEBA Referring Unavailable LUNDBERG, SILVANA E Primary Care Unavailable KARAMLOU, MERLY Referring Unavailable LUNDBERG, SILVANA E Primary Care Unavailable WASSIF, HEBA Referring Unavailable LUNDBERG, SILVANA E Primary Care Unavailable WASSIF, HEBA Attending Unavailable LUNDBERG, SILVANA E Primary Care Unavailable EMILY ANDERSON Attending Unavailable ANDERSON DIAZ Admitting Unavailable LUNDBERG, SILVANA E Primary Care Unavailable WASSIF, HEBA Referring Unavailable LUNDBERG, SILVANA E Primary Care Unavailable ALEXUS NANCE Attending Unavailable WASSIF, HEBA Referring Unavailable LUNDBERG, SILVANA E Primary Care Unavailable CAN, ANNA Attending Unavailable LUNDBERG, SILVANA E Primary Care Unavailable ACN, ANNA Referring Unavailable LUNDBERG, SILVANA E Primary Care Unavailable CAN, ANNA Referring Unavailable NO FAMILY, PHYSICIAN Primary Care Unavailable Lundberg, Silvana E Admitting Unavailable Lundberg, Silvana E Attending Unavailable NO FAMILY, PHYSICIAN Primary Care Unavailable Minerva Brad Admitting Unavailable Brad Hodges Attending Unavailable NO FAMILY, PHYSICIAN Primary Care Unavailable Minerva Brad Admitting Unavailable Brad Hodges Attending Unavailable Allergies Allergy Classification Reported Allergen(s) Allergy Type Date of Onset Reaction(s) Facility (20 sources) Lisinopril; Translations: [lisinopril] Drug Allergy 09-17-19 22 Unknown [facility] (20 sources) Morphine; Translations: [morphine] Drug Allergy 08-25-19 17 Intolerance [facility] Work Phone: Comment on above: Tolerated hydromorph one during 11/2016 admission (17 sources) Losartan; Translations: [LOSARTAN] Drug Allergy 05-30-19 23 Unknown [facility] (2 sources) Morphine Drug Allergy 11-07-19 15 [facility] Repository (2 sources) patient allergy list reviewed by nurse or physicia Propensity to adverse reactions 04-15-20 14 Comment:Done [facility] Other (2 sources) Allergies Reconciled Propensity to adverse reactions Unknown [facility] Other (1 source) Lisinopril Drug Allergy 03-29-20 23 [facility] Repository (1 source) Morphine Drug Allergy 03-29-20 23 [facility] Repository Medications Current Medications Medication Drug Class(es) Dates [...] oral tablet (3 sources) Penicillin-class Antibacterial Start: 3 take 1 tablet by mouth every twelve [...] Serotonin and Norepinephrine Reuptake Inhibitor Start: 10-15-19 take 60 mg by mouth twice daily Cymbalta 60 mg, Oral, BID, Refills(s) 0, Depression Start Date: 10/14/13 Status: Ordered take 1 capsule by [facility] every twelve hours DULoxetine HCl 60 [...] 1 mg oral tablet (20 sources) Start: 07-30-201 7 take 1 tablet by mouth once [...] BID, # 180 caplet(s), Refills(s) 3, Pharmacy: [facility]/pharmacy #[id number], 188, cm, 07/04/21 9:20:00 EDT, Height/Length [...] Drug Class(es) Dates Sig (Normalized) Sig (Original) [id number] 200 actuat albuterol 0.09 mg/actuat metered dose [...] (2 sources) alpha-Adrenergic Malaika, beta-Adrenergic Malaika End: 022 take 1 tablet by mouth twice daily at mealtime carvedilol (COREG) 6.25 mg tablet Take 6.25 mg by mouth twice daily with meals. 0 09/21/2021 Discontinued Comment on above: Take 6.25 mg by mout h twice daily with meals. cyclobenzaprine hydrochloride 10 mg oral tablet (15 sources) Muscle Relaxant End: 023 take 1 tablet by mouth three times daily cyclobenzaprine (FLEXERIL) 10 mg tablet Take 10 mg by mouth three times daily. 0 10/06/2022 Discontinued (Course of therapy completed) Comment on above: Take 10 mg by mouth three times daily. FOLIC ACID/MULTIVIT-MIN/LUTEI N (CENTRUM SILVER ORAL) (2 sources) End: 022 take 1 tablet by mouth once daily [...] above: Take 1 tablet by baltazar th three times daily for 30 days. Take [...] Status: Ordered take 1 capsule by mo [facility] once daily Metoprolol Succinate 50 MG [...] mg by mouth three times daily. 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] Onset: 3 Episodic Other [...] 3 Unclassified (1 source) Ankylosing spondylitis of multiple sites in spine; Translations: [Ankylosing spondylitis of multiple sites in spine] Onset: 4 Unclassified (1 source) Ankylosing spondylitis of unspecified [...] Onset: 08-13-2017 Episodic Other aftercare (1 source) 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 Keep appointments for follow up as scheduled SHAGGY Aggarwal Natalie, RN 05/18/2023 10:11 AM Signed Pt informed of MM message and denies any questions, needs or concerns at this time. Appointment verified. 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 LISINOPRIL 09/16/2021 16 - Unknown LOSARTAN 05/30/2022 16 - Unknown Date Reviewed: 05/18/2023 Reviewed by: Tiffany Peterson PA-C - Fully Assessed Reason for Visit: Results [95] Prescriptions as of 05/18/2023 - ferrous sulfate 325 mg (65 mg iron) tablet Take 1 tablet by mouth three times a week. - oxyCODONE-acetaminophen (PERCOCET) 5-325 mg tablet three times a day as needed. - metoprolol succinate ER (TOPROL XL) 50 mg 24 hr tablet Take 50 mg by mouth once daily. - venlafaxine ER (EFFEXOR XR) 75 mg 24 hr capsule Take 150 mg by mouth once daily. - spironolactone (ALDACTONE) 25 mg tablet Take [...] mouth twice daily. Facility-Administered Medications as of 05/18/2023 - perflutren lipid microspheres 1.3 mL in NaCl (PF) 0.9% 10 mL injection (DEFINITY) - sodium chloride 0.9 % (flush) 10 mL (BD POSIFLUSH) Problem List As Of Date 05/18/2023 Noted Resolved Ankylosing spondylitis (HCC) [M45.9] Esophageal [...] infection [T14.8XXA, L08.9] 09/12/2016 Elevated troponin level [R79.89] 09/17/2016 Patricia infection [B37.9] 09/22/2016 C. difficile colitis [A04.72] 09/22/2016 Wound drainage [T14.8XXA] 09/23/2016 10/30/2016 Acute deep vein thrombosis (DVT) of femoral vei*10/15/2016 Infection [B99.9] 09/23/2016 Anticoagulation management encounter [Z51.81, Z*10/27/2016 10/30/2016 TIFFANIE (acute kidney injury) (HCC) [N17.9] 12/09/2016 12/15/2016 Pneumonia of left lower lobe due to infectious *02/05/2017 Sinus tachycardia [R00.0] 02/05/2017 Encounter Status:Closed by PANFILO CARRANZA on 05/18/23 Normal [facility] CBC W Auto Differential pane l (Bld)on 05-16-2023 Basophils (Bld) [#/Vol] 0.05 10*3/uL Normal <0.11 [facility] Comment on above: Order Comment: Speci men Type: BLOOD SPECIMEN Ordering Facility: [facility] Address: [address] [place] [address] Performed By: #### 5 7021-8 #### [facility] CLIA [id number] [address] [place] [address]64 Basophils/100 WBC (Bld) 1.0 % Normal [facility] Comment on above: Order Comment: Speci men Type: BLOOD SPECIMEN Ordering Facility: [facility] Address: [address] [place] [address] Performed By: #### 5 7021-8 #### [facility] CLIA [id number] [address] [place] [address]059 Differential cell count method Nom (Bld) Auto Normal [facility] Comment on above: Order Comment: Speci men Type: BLOOD SPECIMEN Ordering Facility: [facility] Address: [address] [place] [address] Performed By: #### 5 7021-8 #### [facility] CLIA [id number] [address] [place] [address] 13829 Eosinophils (Bld) [#/Vol] 0.29 10*3/uL Normal <0.46 [facility] Comment on above: Order Comment: Speci men Type: BLOOD SPECIMEN Ordering Facility: [facility] Address: [address] [place] [address] Performed By: #### 5 7021-8 #### [facility] CLIA [id number] [address] [place] [address] 66197 Eosinophils/100 WBC (Bld) 5.5 % Normal [facility] Comment on above: Order Comment: Speci men Type: BLOOD SPECIMEN Ordering Facility: [facility] Address: [address] [place] [address] Performed By: #### 5 7021-8 #### [facility] CLIA [id number] [address] [place] [address] 96282 Erythrocyte distribution width (RBC) [Ratio] 15.7 % High 11.5-15.0 [facility] Comment on above: Order Comment: Speci men Type: BLOOD SPECIMEN Ordering Facility: [facility] Address: [address] [place] [address] Performed By: #### 5 7021-8 #### [facility] CLIA [id number] [address] [place] [address] 18850 Hematocrit (Bld) [Volume fraction] 41.4 % Normal 39.0-51.0 [facility] Comment on above: Order Comment: Speci men Type: BLOOD SPECIMEN Ordering Facility: [facility] Address: [address] [place] [address] Performed By: #### 5 7021-8 #### [facility] CLIA [id number] [address] [place] [address]24 Hemoglobin (Bld) [Mass/Vol] 12.8 g/dL Low 13.0-17.0 [facility] Comment on above: Order Comment: Speci men Type: BLOOD SPECIMEN Ordering Facility: [facility] Address: [address] [place] [address] Performed By: #### 5 7021-8 #### [facility] CLIA [id number] [address] [place] [address] 73330 Immature granulocytes (Bld) [#/Vol] 10*3/uL Normal <0.10 [facility] Comment on above: Order Comment: Speci men Type: BLOOD SPECIMEN Ordering Facility: [facility] Address: [address] [place] [address] Performed By: #### 5 7021-8 #### [facility] CLIA [id number] [address] [place] [address] 49280 Immature granulocytes/100 WBC (Bld) 0.4 % Normal [facility] Comment on above: Order Comment: Speci men Type: BLOOD SPECIMEN Ordering Facility: [facility] Address: [address] [place] [address] Performed By: #### 5 7021-8 #### [facility] CLIA [id number] [address] [place] [address] 93870 Lymphocytes (Bld) [#/Vol] 1.20 10*3/uL Normal 1.00-4.00 [facility] Comment on above: Order Comment: Speci men Type: BLOOD SPECIMEN Ordering Facility: [facility] Address: [address] [place] [address] Performed By: #### 5 7021-8 #### [facility] CLIA [id number] [address] [place] [address] 86476 Lymphocytes/100 WBC (Bld) 22.9 % Normal [facility] Comment on above: Order Comment: Speci men Type: BLOOD SPECIMEN Ordering Facility: [facility] Address: [address] [place] [address] Performed By: #### 5 7021-8 #### [facility] CLIA [id number] [address] [place] [address] 27688 MCH (RBC) [Entitic mass] 29.4 pg Normal 26.0-34.0 [facility] Comment on above: Order Comment: Speci men Type: BLOOD SPECIMEN Ordering Facility: [facility] Address: [address] [place] [address] Performed By: #### 5 7021-8 #### [facility] CLIA [id number] [address] [place] [address] 96803 MCHC (RBC) [Mass/Vol] 30.9 g/dL Normal 30.5-36.0 [facility] Comment on above: Order Comment: Speci men Type: BLOOD SPECIMEN Ordering Facility: [facility] Address: [address] [place] [address] Performed By: #### 5 7021-8 #### [facility] CLIA [id number] [address] [place] [address] 04007 MCV (RBC) [Entitic vol] 95.0 fL Normal 80.0-100.0 [facility] Comment on above: Order Comment: Speci men Type: BLOOD SPECIMEN Ordering Facility: [facility] Address: [address] [place] [address] Performed By: #### 5 7021-8 #### [facility] CLIA [id number] [address] [place] [address] 73510 Monocytes (Bld) [#/Vol] 0.36 10*3/uL Normal <0.87 [facility] Comment on above: Order Comment: Speci men Type: BLOOD SPECIMEN Ordering Facility: [facility] Address: [address] [place] [address] Performed By: #### 5 7021-8 #### [facility] CLIA [id number] [address] [place] [address] 53911 Monocytes/100 WBC (Bld) 6.9 % Normal [facility] Comment on above: Order Comment: Speci men Type: BLOOD SPECIMEN Ordering Facility: [facility] Address: [address] [place] [address] Performed By: #### 5 7021-8 #### [facility] CLIA [id number] [address] [place] [address] 63361 Neutrophils (Bld) [#/Vol] 3.31 10*3/uL Normal 1.45-7.50 [facility] Comment on above: Order Comment: Speci men Type: BLOOD SPECIMEN Ordering Facility: [facility] Address: [address] [place] [address] Performed By: #### 5 7021-8 #### [facility] CLIA [id number] [address] [place] [address] 19534 Neutrophils/100 WBC (Bld) 63.3 % Normal [facility] Comment on above: Order Comment: Speci men Type: BLOOD SPECIMEN Ordering Facility: [facility] Address: [address] [place] [address] Performed By: #### 5 7021-8 #### [facility] CLIA [id number] [address] [place] [address] 29672 Nucleated RBC (Bld) [#/Vol] 10*3/uL Normal <0.01 [facility] Comment on above: Order Comment: Speci men Type: BLOOD SPECIMEN Ordering Facility: [facility] Address: [address] [id number] Performed By: #### 5 7021-8 #### [facility] CLIA [id number] [address] [place] [address] Nucleated RBC/100 WBC (Bld) [Ratio] 0.0 /100 WBC Normal [facility] Comment on above: Order Comment: Speci men Type: BLOOD SPECIMEN Ordering Facility: [facility] Address: [address] [place] [address] Performed By: #### 5 7021-8 #### [facility] CLIA [id number] [address] [place] [address] 43187 Platelet mean volume (Bld) [Entitic vol] 9.5 fL Normal 9.0-12.7 [facility] Comment on above: Order Comment: Speci men Type: BLOOD SPECIMEN Ordering Facility: [facility] Address: [address] [place] [address] Performed By: #### 5 7021-8 #### [facility] CLIA [id number] [address] [place] [address] 08397 Platelets (Bld) [#/Vol] 233 10*3/uL Normal 150-400 [facility] Comment on above: Order Comment: Speci men Type: BLOOD SPECIMEN Ordering Facility: [facility] Address: [address] [place] [address] Performed By: #### 5 7021-8 #### [facility] CLIA [id number] [address] [place] [address] 81068 RBC (Bld) [#/Vol] 4.36 10*6/uL Normal 4.20-6.00 [facility] Comment on above: Order Comment: Speci men Type: BLOOD SPECIMEN Ordering Facility: [facility] Address: [address] [place] [address] Performed By: #### 5 7021-8 #### [facility] CLIA [id number] [address] [place] [address] 86059 WBC (Bld) [#/Vol] 5.23 10*3/uL Normal 3.70-11.00 [facility] Comment on above: Order Comment: Speci men Type: BLOOD SPECIMEN Ordering Facility: [facility] Address: [address] [place] [address] Performed By: #### 5 7021-8 #### [facility] CLIA [id number] [address] [place] [address] CNOVSPon 05-16-2023 CNOVSP Visit (SP) Office (H EMASA) ELENA FELIX ([id number]) 1960 Date Time Provider Department 05/16/23 11:00 AM TIFFANY PETERSON During your visit today, we recorded the following information about you: Temperature Pulse Respiration Blood pressure 97.6 degrees 101/minute 18/minute 113/66 Weight Height 131.4 kg 1.88 m Tiffany Peterson PA-C 05/16/2023 12:16 PM Signed PATIENT NAME: Elena Shola Isidro [facility] NO.: [id number] ATTENDING PHYSICIAN: Merly Marti MD DATE OF SERVICE: May 16, 2023 (Elements copied from Dr. Marti's note dated November 15, 2022, have been reviewed and updated where appropriate, and all reflect current assessment and medical decision making during today's encounter, May 16, 2023) CC: Follow up Diagnosis: DVT Elevated kappa with negative GILLIAN 10/2022 Treatment History: HPI: Mr. Felix returns for follow up. He fell at home and broke his left hip in January 2023. He has been on iron since then because he was told his iron was low. He has no new other issues or complaints. No blood clots. PAST MEDICAL HISTORY Diagnosis Date Ankylosing spondylitis (HCC) Dr Hodges Ankylosing spondylitis (HCC) Arthritis Back pain Cardiomyopathy ([facility]) Nonischemic Congestive Cerebrovascular small vessel disease 08/24/2016 On ASA DVT (deep venous thrombosis) ([facility]) Esophageal reflux Former smoker Kidney stones Major depressive disorder with single episode, in remission ([facility]) 08/24/2016 Morbid obesity with BMI of 40.0-44.9, adult ([facility]) Neuropathy Obstructive sleep apnea syndrome, severe [...] of hands/feet. No weakness. PHYSICAL EXAMINATION: BP 113/66 Pulse 101 Temp (Src) 97.6 (Temporal) Resp 18 Ht 6' 2.016 (1.88m) Wt 289 lb 11 oz (131.4kg) SpO2 97% BMI 37.18 kg/(m2). ECOG PERFORMANCE STATUS: 0- Fully active, able to carry on all pre-disease performance w/o restriction. General: Alert and oriented, no distress, pleasant and cooperative. Using a walker Heart: Regular, normal S1 and S2, no murmurs, rubs, or gallops Lungs: Clear to auscultation bilaterally Abdomen: Benign Extremities: Feet/ankles without edema, posterior tibial pulses full and symmetrical LABS: WBC Date Value Ref Range Status 05/16/2023 5.23 3.70 - 11.00 k/uL Final RBC Date Value Ref Range Status 05/16/2023 4.36 4.20 - 6.00 m/uL Final Hemoglobin Date Value Ref Range Status 05/16/2023 12.8 (L) 13.0 - 17.0 g/dL Final Hematocrit Date Value Ref Range Status 05/16/2023 41.4 39.0 - 51.0 % Final MCV Date Value Ref Range Status 05/16/2023 95.0 80.0 - 100.0 fL Final MCH Date Value Ref Range Status 05/16/2023 29.4 26.0 - 34.0 pg Final MCHC Date Value Ref Range Status 05/16/2023 30.9 30.5 - 36.0 g/dL Final RDW-CV Date Value Ref Range Status 05/16/2023 15.7 (H) 11.5 - 15.0 % Final Platelet Count Date Value Ref Range Status 05/16/2023 233 150 - 400 k/uL Final MPV Date Value Ref Range Status 05/16/2023 9.5 9.0 - 12.7 fL Final Abs Neut Date Value Ref Range Status 05/16/2023 3.31 1.45 - 7.50 k/uL Final Lymphocytes % Date Value Ref Range Status 05/16/2023 22.9 % Final Abs Lymph Date Value Ref Range Status 05/16/2023 1.20 1.00 - 4.00 k/uL Final Monocytes % Date Value Ref Range Status 05/16/2023 6.9 % Final Abs Burke Date Value Ref Range Status 05/16/2023 0.36 <0.87 k/uL Final Eosinophils % Date Value Ref Range Status (more content not included)... Normal [facility] Ferritin SerPl-mCncon 2023 Ferritin [Mass/Vol] 170.0 ng/mL Normal 30.3-565.7 [facility] Comment on above: Order Comment: Speci men Type: BLOOD SPECIMENOrdering Facility: [facility] Address: [address] [place] [address] Performed By: #### 5 0190-8, 2885-2, 2276-4 ####[facility] [id number] [address] OF PER IMMUNOFIXATION SCREEN, SERUM on 05-16-2023 MPA RESULT No M protein is identified. Normal No M protein is identified. [facility] Comment on above: Order Comment: Speci men Type: BLOOD SPECIMEN Ordering Facility: [facility] Address: [address] [place] [address] Performed By: #### 4 537-7 #### [facility] CLIA [id number] [address] [place] [address] OF PER STAFF REVIEW (MPA) Reviewed by Shelly flores M.D. Normal [facility] Comment on above: Order Comment: Speci men Type: BLOOD SPECIMEN Ordering Facility: [facility] Address: [address] [place] [address] Performed By: #### 4 537-7 #### [facility] CLIA [id number] [address] [place] [address] [place] PER IMMUNOGLOBULINS GAMon 2023 IgA [Mass/Vol] 165 mg/dL Normal 70-400 [facility] Comment on above: Order Comment: Speci men Type: BLOOD SPECIMENOrdering Facility: [facility] Address: [address] [place] [address] Performed By: #### S ERIMM ####[facility]IA [id number] [place] [address] [place] PER IgG [Mass/Vol] 888 mg/dL Normal 700-1600 [facility] Comment on above: Order Comment: Speci men Type: BLOOD SPECIMENOrdering Facility: [facility] Address: [address] [place] [address] Performed By: #### S ERIMM ####[facility] [facility] LABCLIA [id number] [address] [id number] [address] [place] IgM [Mass/Vol] 34 mg/dL Low 40-230 [facility] Comment on above: Order Comment: Speci men Type: BLOOD SPECIMENOrdering Facility: [facility] Address: [address] [place] [address] Performed By: #### S ERIMM ####[facility] LABCLIA [id number] [place] [address] [place] Iron and Iron binding capaci ty panelon 05-16-2023 Iron [Mass/Vol] 150 ug/dL Normal 41-186 [facility] Comment on above: Order Comment: Speci men Type: BLOOD SPECIMENOrdering Facility: [facility] Address: [address] [place] [address] Performed By: #### 5 0190-8, 2885-2, 2275-4 ####[facility] LABCLIA [id number] [place] [address] [place] Iron binding capacity [Mass/Vol] 291 ug/dL Normal 232-386 [facility] Comment on above: Order Comment: Speci men Type: BLOOD SPECIMENOrdering Facility: [facility] Address: [address] [place] [address] Performed By: #### 5 0190-8, 2885-2, 2275-4 ####[facility] LABCLIA [id number] [place] [address] [place] Iron/TIBC [Molar ratio] 51.5 % Normal 15.0-57.0 [facility] Comment on above: Order Comment: Speci men Type: BLOOD SPECIMENOrdering Facility: [facility] Address: [address] [place] [address] Performed By: #### 5 0190-8, 2885-2, 2275-4 ####[facility] LABCLIA [id number] [place] [id number] [place] KAPPA/KEANE,FREE,SERon 2023 Immunoglobulin light chains.kappa.free (S) [Mass/Vol] 38.0 mg/L High 3.3-19.4 [facility] Comment on above: Order Comment: Speci men Type: BLOOD SPECIMENOrdering Facility: [facility] Address: [address] [place] [address] Result Comment: Rare ly, increased serum free light chains levels may not be detected or accurately quantified due to prozone phenomenon or in high viscosity samples using this immunoturbidimetric assay. Correlation with other laboratory results and clinical findings is recommended. The [place] Free Light Chain was performed using the Binding Site Optilite immunoturbidimetric method. Result obtained with different assay methods or kits cannot be used interchangeably. Performed By: #### K LFRS ####[facility] LABCLIA [id number] [place] [address] [place] Immunoglobulin light chains.kappa/Immunogl obulin light chains.lambda (S) [Mass ratio] 2.26 High 0.26-1.65 [facility] Comment on above: Order Comment: Speci madison Type: BLOOD SPECIMENOrdering Facility: [facility] Address: [address] [place] [address] Performed By: #### K LFRS ####[facility] LABCLIA [id number] [place] [address] [place] Immunoglobulin light chains.lambda.free [Mass/Vol] 16.8 mg/L Normal 5.7-26.3 [facility] Comment on above: Order Comment: Speci men Type: BLOOD SPECIMENOrdering Facility: [facility] Address: [address] [place] [address] Result Comment: Rare ly, increased serum free [...] cannot be used interchangeably. Performed By: #### K LFRS ####[facility] LABCLIA [id number] [place] [address] [place] PROTEIN ELECTROPHORESIS SERU M (P)on 05-16-2023 Albumin [Mass/Vol] 3.66 g/dL Normal 3.43-5.41 [facility] Comment on above: Order Comment: Speci men Type: BLOOD SPECIMENOrdering Facility: [facility] Address: [address] [place] [address] Performed By: #### L [id number] ####[facility] LABIA [id number] [place] [address] [place] Alpha 1 globulin Elph [Mass/Vol] 0.43 g/dL Normal 0.18-0.43 [facility] Comment on above: Order Comment: Speci men Type: BLOOD SPECIMENOrdering Facility: [facility] Address: [address] [place] [address] Performed By: #### L [id number] ####[facility] LABIA [id number] [place] [address] [place] Alpha 2 globulin Elph [Mass/Vol] 1.02 g/dL High 0.42-0.98 [facility] Comment on above: Order Comment: Speci men Type: BLOOD SPECIMENOrdering Facility: [facility] Address: [address] [place] [address] Performed By: #### L [id number] ####[facility] LABIA [id number] [place] [address] [place] Beta globulin Elph [Mass/Vol] 0.84 g/dL Normal 0.61-1.17 [facility] Comment on above: Order Comment: Speci men Type: BLOOD SPECIMENOrdering Facility: [facility] Address: [address] [place] [address] Performed By: #### L [id number] ####[facility] LABIA [id number] [address] [id number] [address] [place] Gamma globulin Elph [Mass/Vol] 0.85 g/dL Normal 0.53-1.51 [facility] Comment on above: Order Comment: Speci men Type: BLOOD SPECIMENOrdering Facility: [facility] Address: [address] [place] [address] Performed By: #### L [id number] ####[facility] LABCLIA [id number] [place] [address] [place] M-PROTEIN LOCATION Normal [facility] Comment on above: Order Comment: Speci men Type: BLOOD SPECIMENOrdering Facility: [facility] Address: [address] [place] [address] Result Comment: Not Applicable. Performed By: #### L [id number] ####[facility] LABCLIA [id number] [place] [address] [place] Protein Fractions [Interp] No definitive M protein is identified on protein electrophoresis. Normal No definitive M protein is identified on protein electrophor esis. [facility] Comment on above: Order Comment: Speci men Type: BLOOD SPECIMENOrdering Facility: [facility] Address: [address] [place] [address] Performed By: #### L [id number] ####[facility] LABCLIA [id number] [place] [address] [place] Protein.monoclonal Elph [Mass/Vol] 0.00 g/dL Normal <=0.00 [facility] Comment on above: Order Comment: Speci men Type: BLOOD SPECIMENOrdering Facility: [facility] Address: [address] [place] [address] Performed By: #### L [id number] ####[facility] LABCLIA [id number] [place] [address] [place] SPE STAFF REVIEW Reviewed by Shelly flores M.D. Normal [facility] Comment on above: Order Comment: Speci men Type: BLOOD SPECIMENOrdering Facility: [facility] Address: [address] [place] [address] Performed By: #### L [id number] ####[facility] LABCLIA [id number] [place] [address] [place] Prot SerPl-mCncon 05-16-2023 Protein [Mass/Vol] 6.8 g/dL Normal 6.3-8.0 [facility] Comment on above: Order Comment: Speci men Type: BLOOD SPECIMENOrdering Facility: [facility] Address: [address] [place] [address] Performed By: #### 5 0190-8, 2885-2, 2276-4 ####[facility] LABCLIA [id number] [address] [place] Alanine aminotransferase [En zymatic activity/volume] in Serum or PlasmaOrdered By: Brad Hodges on 05-03-2023 ALT [Catalytic activity/Vol] 18 U/L 7-52 [facility] Albumin [Mass/volume] in Ser um or Plasma by Bromocresol green (BCG) dye binding methoOrdered By: Brad Hodges on 05-03-2023 Albumin BCG dye [Mass/Vol] 3.6 g/dL 3.5-5.7 [facility] Alkaline phosphatase [Enzyma tic activity/volume] in Serum or PlasmaOrdered By: Brad Hodges on 05-03-2023 ALP [Catalytic activity/Vol] 66 U/L 34-104 [facility] Aspartate aminotransferase [ Enzymatic activity/volume] in Serum or PlasmaOrdered By: Brad Hodges on 05-03-2023 AST [Catalytic activity/Vol] 16 U/L 13-39 [facility] Basophils Auto (Bld) [#/Vol] Ordered By: Brad Hodges on 05-03-2023 Basophils (Bld) [#/Vol] 0.0 10*3/uL 0.0-0.2 [facility] Basophils/100 WBC Auto (Bld) Ordered By: Brad Hodges on 05-03-2023 Basophils/100 WBC (Bld) 0.9 % . [facility] Bilirubin.total [Mass/volume ] in Serum or PlasmaOrdered By: Brad Hodges on 05-03-2023 Bilirubin [Mass/Vol] 0.4 mg/dL 0.3-1.0 [facility] Calcium [Mass/volume] in Ser um or PlasmaOrdered By: Brad Hodges on 05-03-2023 Calcium [Mass/Vol] 9.1 mg/dL 8.6-10.3 [facility] Carbon dioxide, total [Moles /volume] in Serum or PlasmaOrdered By: Brad Hodges on 05-03-2023 CO2 [Moles/Vol] 29.5 mmol/L 21.0-31.0 [facility] Chloride [Moles/volume] in S eliza or PlasmaOrdered By: Brad Hodges on 05-03-2023 Chloride [Moles/Vol] 107 mmol/L 98-107 [facility] Complete Blood Count Auto Di ffon 05-03-2023 Basophils (Bld) [#/Vol] 0.0 10*3/uL Normal 0.0-0.2 [facility] Comment on above: Performed By: #### C MP, ESR, CBC #### [facility] [address] [place] [address] [place] Basophils/100 WBC (Bld) 0.9 % Normal . [facility] Comment on above: Performed By: #### C MP, ESR, CBC #### [facility] [address] [place] [address] [place] Eosinophils (Bld) [#/Vol] 0.3 10*3/uL Normal 0.0-0.45 [facility] Comment on above: Performed By: #### C MP, ESR, CBC #### [facility] [address] [place] [address] [place] Eosinophils/100 WBC (Bld) 6.6 % Normal . [facility] Comment on above: Performed By: #### C MP, ESR, CBC #### [facility] [address] Erythrocyte distribution width (RBC) [Ratio] 15.9 % High 12.0-14.8 [facility] Comment on above: Performed By: #### C MP, ESR, CBC #### [facility] [address] Hematocrit (Bld) [Volume fraction] 38.5 % Low 38.8-50.0 [facility] Comment on above: Performed By: #### C MP, ESR, CBC #### [address] Hemoglobin (Bld) [Mass/Vol] 12.3 g/dL Low 13.0-17.0 [facility] Comment on above: Performed By: #### C MP, ESR, CBC #### [address] Lymphocytes (Bld) [#/Vol] 1.2 10*3/uL Normal 1.00-4.8 [facility] Comment on above: Performed By: #### C MP, ESR, CBC #### [address] Lymphocytes/100 WBC (Bld) 25.4 % Normal . [facility] Comment on above: Performed By: #### C MP, ESR, CBC #### [address] MCH (RBC) [Entitic mass] 29.5 pg Normal 27.5-35.2 [facility] Comment on above: Performed By: #### C MP, ESR, CBC #### [address] MCV (RBC) [Entitic vol] 92.1 fL Normal 83.5-101 [facility] Comment on above: Performed By: #### C MP, ESR, CBC #### [address] Mean Corpuscular HGB Conc 32.0 g/dL Low 32.5-35.6 [facility] Comment on above: Performed By: #### C MP, ESR, CBC #### [address] Monocytes (Bld) [#/Vol] 0.2 10*3/uL Normal 0.0-0.8 [facility] Comment on above: Performed By: #### C MP, ESR, CBC #### [facility] [address] Monocytes/100 WBC (Bld) 4.3 % Normal . [facility] Comment on above: Performed By: #### C MP, ESR, CBC #### [facility] [address] Neutrophils (Bld) [#/Vol] 3.0 10*3/uL Normal 1.8-7.7 [facility] Comment on above: Performed By: #### C MP, ESR, CBC #### [facility] [address] Neutrophils/100 WBC (Bld) 62.8 % Normal . [facility] Comment on above: Performed By: #### C MP, ESR, CBC #### [facility] [address] NRBC% 0.1 /100{WBC} Normal 0-0.5 [facility] Comment on above: Performed By: #### C MP, ESR, CBC #### [facility] [address] Platelet mean volume (Bld) [Entitic vol] 8.2 fL Normal 6.6-10.1 [facility] Comment on above: Performed By: #### C MP, ESR, CBC #### [facility] [address] [place] [address] [place] Platelets (Bld) [#/Vol] 249 10*3/uL Normal 150-450 [facility] Comment on above: Performed By: #### C MP, ESR, CBC #### [facility] [address] [place] [address] [place] RBC (Bld) [#/Vol] 4.17 10*6/uL Normal 3.90-5.60 [facility] Comment on above: Performed By: #### C MP, ESR, CBC #### [facility] [address] [place] [address] [place] WBC (Bld) [#/Vol] 4.8 10*3/uL Normal 4.1-10.5 [facility] Comment on above: Performed By: #### C MP, ESR, CBC #### [address] Comprehensive Metabolic Pane robert 05-03-2023 Albumin [Mass/Vol] 3.6 g/dL Normal 3.5-5.7 [facility] Comment on above: Performed By: #### C MP, ESR, CBC #### [address] Albumin/Globulin [Mass ratio] 1.4 {ratio} Normal [facility] Comment on above: Performed By: #### C MP, ESR, CBC #### [address] ALP [Catalytic activity/Vol] 66 U/L Normal 34-104 [facility] Comment on above: Result Comment: PERF ORMED BY: [place] [address] PATHOLOGIST PERMANENT WAVER JENNIFER CALDERON M.D. Performed By: #### C MP, ESR, CBC #### [address] ALT [Catalytic activity/Vol] 18 U/L Normal 7-52 [facility] Comment on above: Performed By: #### C MP, ESR, CBC #### [address] Anion gap [Moles/Vol] 10.1 mmol/L Normal 6.0-15.0 [facility] Comment on above: Performed By: #### C MP, ESR, CBC #### [address] AST [Catalytic activity/Vol] 16 U/L Normal 13-39 [facility] Comment on above: Performed By: #### C MP, ESR, CBC #### [address] Bilirubin [Mass/Vol] 0.4 mg/dL Normal 0.3-1.0 [facility] Comment on above: Performed By: #### C MP, ESR, CBC #### [facility] [address] Calcium [Mass/Vol] 9.1 mg/dL Normal 8.6-10.3 [facility] Comment on above: Performed By: #### C MP, ESR, CBC #### [facility] [address] Chloride [Moles/Vol] 107 mmol/L Normal 98-107 [facility] Comment on above: Performed By: #### C MP, ESR, CBC #### [facility] [address] CO2 [Moles/Vol] 29.5 mmol/L Normal 21.0-31.0 [facility] Comment on above: Performed By: #### C MP, ESR, CBC #### [facility] [address] Creatinine [Mass/Vol] 1.33 mg/dL High 0.70-1.30 [facility] Comment on above: Performed By: #### C MP, ESR, CBC #### [facility] [address] [place] [address] [place] GFR/1.73 sq M.predicted MDRD (S/P/Bld) [Vol rate/Area] mL/min/{1.73_m2} [facility] Comment on above: Performed By: #### C MP, ESR, CBC #### [facility] [address] Globulin (S) [Mass/Vol] 2.6 g/dL [facility] Comment on above: Performed By: #### C MP, ESR, CBC #### [facility] [address] Glucose [Mass/Vol] 122 mg/dL High 70-100 [facility] Comment on above: Result Comment: [place] Glucose Reference Range is dependent on time and content of last meal. Glucose of more than 200 mg/dL in a nonstressed, ambulatory subject supports the diagnosis of Diabetes Mellitus. ADA recommended reference range Performed By: #### C MP, ESR, CBC #### [facility] [address] Potassium [Moles/Vol] 4.6 mmol/L Normal 3.5-5.1 [facility] Comment on above: Performed By: #### C MP, ESR, CBC #### [facility] [address] Protein [Mass/Vol] 6.2 g/dL Low 6.4-8.9 [facility] Comment on above: Performed By: #### C MP, ESR, CBC #### [facility] [address] Sodium [Moles/Vol] 142 mmol/L Normal 136-145 [facility] Comment on above: Performed By: #### C MP, ESR, CBC #### [facility] [address] [place] [address] [place] Urea nitrogen [Mass/Vol] 22 mg/dL Normal 7-25 [facility] Comment on above: Performed By: #### C MP, ESR, CBC #### [facility] [address] Creatinine [Mass/volume] in Serum or PlasmaOrdered By: Brad Hodges on 05-03-2023 Creatinine [Mass/Vol] 1.33 mg/dL 0.70-1.30 [facility] Eosinophils Auto (Bld) [#/Vo l]Ordered By: Brad Hodges on 05-03-2023 Eosinophils (Bld) [#/Vol] 0.3 10*3/uL 0.0-0.45 [facility] Eosinophils/100 WBC Auto (Bl d)Ordered By: Brad Hodges on 05-03-2023 Eosinophils/100 WBC (Bld) 6.6 % . [facility] Erythrocyte Sedimentation Ra alexia 05-03-2023 ESR (Bld) [Velocity] 35 mm/h High 0-19 [facility] Comment on above: Result Comment: PERF ORMED BY: [facility] [address] [place] [address] PATHOLOGIST PERMANENT WAVER JENNIFER CALDERON M.D. Performed By: #### C MP, ESR, CBC #### [facility] [address] Erythrocyte distribution wid th Auto (RBC) [Ratio]Ordered By: Brad Hodges on 05-03-2023 Erythrocyte distribution width (RBC) [Ratio] 15.9 % 12.0-14.8 [facility] Erythrocyte sedimentation ra te by Photometric methodOrdered By: Brad Hodges on 05-03-2023 ESR Photometric method (Bld) [Velocity] 35 mm/hr 0-19 [facility] Globulin Calc (S) [Mass/Vol] Ordered By: Brad Hodges on 05-03-2023 Globulin (S) [Mass/Vol] 2.6 g/dL [facility] Glucose [Mass/volume] in Ser um or PlasmaOrdered By: Brad Hodges on 05-03-2023 Glucose [Mass/Vol] 122 mg/dL 70-100 [facility] Comment on above: ADA recommended refe rence rangeRandom Glucose Reference Range is dependent on time and content of last meal. Glucose of more than 200 mg/dL in a nonstressed, ambulatory subject supports the diagnosis of Diabetes Mellitus. Hematocrit Auto (Bld) [Volum e fraction]Ordered By: Brad Hodges on 05-03-2023 Hematocrit (Bld) [Volume fraction] 38.5 % 38.8-50.0 [facility] Hemoglobin [Mass/volume] in BloodOrdered By: Brad Hodges on 05-03-2023 Hemoglobin (Bld) [Mass/Vol] 12.3 g/dL 13.0-17.0 [facility] Leukocytes [#/volume] correc christen for nucleated erythrocytes in Blood by Automated counOrdered By: Brad Hodges on 05-03-2023 WBC corrected for nucl RBC Auto (Bld) [#/Vol] 4.8 10*3/uL 4.1-10.5 [facility] Lymphocytes Auto (Bld) [#/Vo l]Ordered By: Brad Hodges on 05-03-2023 Lymphocytes (Bld) [#/Vol] 1.2 10*3/uL 1.00-4.8 [facility] Lymphocytes/100 WBC Auto (Bl d)Ordered By: Brad Hodges on 05-03-2023 Lymphocytes/100 WBC (Bld) 25.4 % . [facility] MCH Auto (RBC) [Entitic mass ]Ordered By: Brad Hodges on 05-03-2023 MCH (RBC) [Entitic mass] 29.5 pg 27.5-35.2 [facility] MCHC Auto (RBC) [Mass/Vol]Or dered By: Brad Hodges on 05-03-2023 MCHC (RBC) [Mass/Vol] 32.0 g/dL 32.5-35.6 [facility] MCV Auto (RBC) [Entitic vol] Ordered By: Brad Hodges on 05-03-2023 MCV (RBC) [Entitic vol] 92.1 fL 83.5-101 [facility] Monocytes Auto (Bld) [#/Vol] Ordered By: Brad Hodges on 05-03-2023 Monocytes (Bld) [#/Vol] 0.2 10*3/uL 0.0-0.8 [facility] Monocytes/100 WBC Auto (Bld) Ordered By: Brad Hodges on 05-03-2023 Monocytes/100 WBC (Bld) 4.3 % . [facility] Neutrophils Auto (Bld) [#/Vo l]Ordered By: Brad oHdges on 05-03-2023 Neutrophils (Bld) [#/Vol] 3.0 10*3/uL 1.8-7.7 [facility] Neutrophils/100 WBC Auto (Bl d)Ordered By: Brad Hodges on 05-03-2023 Neutrophils/100 WBC (Bld) 62.8 % . [facility] No Panel InformationOrdered By: Brad Hodges on 05-03-2023 Estimated GFR (CKD-EPI) > 60.0 mL/Min [facility] Creatinine Clearance (Chem N/A [facility] Nucleated erythrocytes [Pres ence] in Blood by Automated countOrdered By: Brad Hodges on 05-03-2023 Nucleated RBC Auto Ql (Bld) 0.1 /100{WBC} 0-0.5 [facility] Platelet mean volume Auto (B ld) [Entitic vol]Ordered By: Brad Hodges on 05-03-2023 Platelet mean volume (Bld) [Entitic vol] 8.2 fL 6.6-10.1 [facility] Platelets Auto (Bld) [#/Vol] Ordered By: Brad Hodges on 05-03-2023 Platelets (Bld) [#/Vol] 249 10*3/uL 150-450 [facility] Potassium [Moles/volume] in Serum or PlasmaOrdered By: Brad Hodges on 05-03-2023 Potassium [Moles/Vol] 4.6 mmol/L 3.5-5.1 [facility] Protein [Mass/volume] in Ser um or PlasmaOrdered By: Brad Hodges on 05-03-2023 Protein [Mass/Vol] 6.2 g/dL 6.4-8.9 [facility] RBC Auto (Bld) [#/Vol]Ordere d By: Brad Hodges on 05-03-2023 RBC (Bld) [#/Vol] 4.17 10*6/uL 3.90-5.60 [facility] Serum or plasma albumin/glob ulin mass ratioOrdered By: Brad Hodges on 05-03-2023 Albumin/Globulin [Mass ratio] 1.4 {ratio} [facility] Serum or plasma anion gap de terminationOrdered By: Brad Hodges on 05-03-2023 Anion gap [Moles/Vol] 10.1 mmol/L 6.0-15.0 [facility] Sodium [Moles/volume] in Ser um or PlasmaOrdered By: Brad Hodges on 05-03-2023 Sodium [Moles/Vol] 142 mmol/L 136-145 [facility] Urea nitrogen [Mass/volume] in Serum or PlasmaOrdered By: Brad Hodges on 05-03-2023 Urea nitrogen [Mass/Vol] 22 mg/dL 7-25 [facility] WBC Auto (Bld) [#/Vol]Ordere d By: Brad Hodges on 05-03-2023 WBC (Bld) [#/Vol] 4.8 10*3/uL 4.1-10.5 [facility] CNOVon 02-05-2023 CNOV Office Visit (SYNCMN ) ISIDROELENA ([id number]) 1960 M Date Time Provider Department 02/05/23 12:00 PM AUSTIN CLARK SYNCMN During your visit today, we recorded the following information about you: Weight 129.7 kg Anna Duvall, RN 02/05/2023 1:39 PM Signed [facility] Flannery Department of Cardiovascular Medicine SECTION OF CARDIAC PACING and ELECTROPHYSIOLOGY OUTPATIENT VISIT DATE February 05, 2023 PRIMARY CARE PHYSICIAN: Silvana Lundberg ([place]) [facility] [place] [address] REFERRING PHYSICIAN: Tricia Howard [address] [facility] [address] NURSING INTAKE HISTORY: Mr. Felix is a 62 year old male who is seen today for lightheadedness and POTS. 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 He is followed by Dr. Howard [...] MEDICAL HISTORY Diagnosis Date - Ankylosing spondylitis ([facility]) Dr Hodges - Ankylosing spondylitis ([facility]) - Arthritis - Back pain - Cardiomyopathy ([facility]) Nonischemic Congestive - Cerebrovascular small vessel disease 08/24/2016 On ASA - DVT (deep venous thrombosis) ([facility]) - Es (more content not included)... Normal [facility] ECG COMPLETEon 02-05-2023 ECG COMPLETE Ventricular Rate : 7 3 BPM Atrial Rate : 73 BPM P-R Interval : 150 ms QRS Duration : 94 ms Q-T Interval : 360 ms QTC Calculation(Bazett) : 396 ms Calculated P Bryant : 42 degrees Calculated R Bryant : 42 degrees Calculated T Bryant : 52 degrees NORMAL SINUS RHYTHM NORMAL ECG Confirmed by ASHLI OCHOA MD ([id number]) on 02/12/2023 11:11:58 AM NAME : ELENA FELIX PID : [id number] : 1960 Gender : Male Race : ORD : [id number] Procedure Date : Feb 05 2023 10:45:05 Edit Date : Feb 12 2023 11:12:00 Diagnosis: NORMAL SINUS RHYTHM NORMAL ECG Confirmed by ASHLI OCHOA MD ([id number]) on 02/12/2023 11:11:58 AM Test Reason : Location : [facility] : J14 J1-4 Overread By : ASHLI OCHOA MD Edited By : CHAUDHURY MD,ASHLI Referred By : AUSTIN CLARK Acquired by : RADHA PULLIAM Normal [facility] Hep C Ab wRfx to Qnt PCRon 0 12-11-2022 Hepatitis C Virus Antibody Non-Reactive Normal Non Reactive [facility] Comment on above: Performed By: #### Q UANT TB, HBCAB, HBSAG, HBSAB, HCV RX PCR #### [facility] , Interpretation Hepatitis C Normal . [facility] Comment on above: Result Comment: Not infected with HCV unless early or acute infection is suspected (which may be delayed in an immunocompromised individual), or other evidence exists to indicate HCV infection. Performed By: #### Q UANT TB, HBCAB, HBSAG, HBSAB, HCV RX PCR #### [facility] , Hepatitis B Core Antibodyon 12-11-2022 Hepatitis B Core Antibody Negative Normal Negative [facility] Comment on above: Result Comment: Perf ormed at: [facility] [id number] Computer Security Specialist: Cosme Kang PhD, Phone: [phone] Performed By: #### Q UANT TB, HBCAB, HBSAG, HBSAB, HCV RX PCR #### [facility] , Hepatitis B Surface Antibody on 12-11-2022 Hepatitis B Surface Antibody Non-Reactive Normal . [facility] Comment on above: Result Comment: Non Reactive: Inconsistent with immunity, less than 10 mIU/mL Reactive: Consistent with immunity, greater than 9.9 mIU/mL Performed By: #### Q UANT TB, HBCAB, HBSAG, HBSAB, HCV RX PCR #### [facility] , Hepatitis B Surface Antigeno n 12-11-2022 HBsAg Screen Negative Normal Negative [facility] Comment on above: Result Comment: PERF ORMED BY: [place] [address] [place] [address] PATHOLOGIST PERMANENT WAVER JENNIFER CALDERON M.D. Performed By: #### Q UANT TB, HBCAB, HBSAG, HBSAB, HCV RX PCR #### [facility] , QuantiFERON TB Goldon 2022 QFTB Criteria Normal . [facility] Comment on above: Result Comment: Mj tiFERON-TB [...] Quant TB Ag Value 0.05 Normal . [facility] Comment on above: Performed By: #### Q UANT TB, HBCAB, HBSAG, HBSAB, HCV RX PCR #### [facility] , Quant TB Gold Plus Negative Normal Negative [facility] Comment on above: Result Comment: No r [...] interferon gamma. Chemiluminescence immunoassay methodology Performed at: [employer] [facility] [employer] [id number] Computer Security Specialist: Cosme Kang PhD, Phone: [phone] PERFORMED BY: [place] [address] PATHOLOGIST PERMANENT WAVER JENNIFER CALDERON M.D. Performed By: #### Q UANT TB, HBCAB, HBSAG, HBSAB, HCV RX PCR #### [facility] , Quant TB2 Ag Value 0.05 Normal . [facility] Comment on above: Performed By: #### Q UANT TB, HBCAB, HBSAG, HBSAB, HCV RX PCR #### [facility] , Quantiferon Nil Value 0.06 Normal . [facility] Comment on above: Performed By: #### Q UANT TB, HBCAB, HBSAG, HBSAB, HCV RX PCR #### [facility] , Quantiferon TB Mitogen >10.00 Normal . [facility] Comment on above: Performed By: #### Q UANT TB, HBCAB, HBSAG, HBSAB, HCV RX PCR #### [facility] , CNOVon 11-17-2022 CNOV Office Visit (CARCMN ) ISIDROELENA Shola ([id number]) 1960 M Date Time Provider Department 11/17/22 9:15 AM TRICIA HOWARD CARCMN During your visit today, we recorded the following information about you: Pulse Blood pressure Weight 62/minute 107/74 132 kg Tricia Howard MD 11/30/2022 5:11 PM Signed [facility] [place] Shanelle Flannery Department of Cardiovascular Medicine SECTION OF CLINICAL CARDIOLOGY OUTPATIENT VISIT DATE November 17, 2022 OUTPATIENT VISIT TYPE ESTABLISHED PRIMARY CARE PHYSICIAN: Silvana Lundberg ([facility]) [facility] [place] [address] REFERRING PHYSICIAN: No referring provider defined for [...] PAST MEDICAL HISTORY Diagnosis Date Ankylosing spondylitis ([facility]) Dr Hodges Ankylosing spondylitis ([facility]) Arthritis Back pain Cardiomyopathy ([facility]) Nonischemic Congestive Cerebrovascular small vessel disease 08/24/2016 On ASA DVT (deep venous thrombosis) ([facility]) Esophageal reflux Former smoker Kidney stones Major depressive disorder with single episode, in remission ([facility]) 08/24/2016 Morbid obesity with BMI of 40.0-44.9, adult ([facility]) Neuropathy Obstructive sleep apnea syndrome, severe On auto-CPAP - sleep study done on 07/10/16 Pneumonia PAST SURGICAL HISTORY Procedure Laterality Date BACK SURGERY HX 2013 BACK SURGERY HX 2014 MIDLINE INSERTION/CONSULT 09/05/2016 [...] mg capsule (more content not included)... Normal [facility] CNOVSPon 11-15-2022 [facility] Visit (SP) Office (H EMASA) ELENA FELIX ([id number]) 1960 Date Time Provider Department 11/15/22 11:30 AM MERLY MARTI During your visit today, we recorded the following information about you: Temperature Pulse Respiration Blood pressure 97.9 degrees 71/minute 16/minute 130/73 Weight Height 134.4 kg 1.88 m Merly Marti MD 11/15/2022 11:35 AM Signed PATIENT NAME: Elena Felix [facility] NO.: [id number] ATTENDING PHYSICIAN: Merly Marti MD DATE OF [...] PAST MEDICAL HISTORY Diagnosis Date Ankylosing spondylitis ([facility]) Dr Hodges Ankylosing spondylitis ([facility]) Arthritis Back pain Cardiomyopathy ([facility]) Nonischemic Congestive Cerebrovascular small vessel disease 08/24/2016 On ASA DVT (deep venous thrombosis) ([facility]) Esophageal reflux Former smoker Kidney stones Major depressive disorder with single episode, in remission ([facility]) 08/24/2016 Morbid obesity with BMI of 40.0-44.9, adult ([facility]) Neuropathy Obstructive sleep apnea syndrome, severe [...] 9.3 Calci (more content not included)... Normal [facility] Aerobic Cultureon 10-31-2022 Aerobic Culture ORGANISM: Staphyloco [...] RESISTANT TO ALL B-LACTAM DRUGS. PERFORMED BY: [place] [address] [place] [address] PATHOLOGIST PERMANENT WAVER JENNIFER CALDERON M.D. Normal [facility] Comment on above: Performed By: #### G S, AERC #### [facility] [address] Anaerobic cultureOrdered By: Silvana Lundberg on 10-31-2022 Bacteria identified Anaer cx Nom (Unsp spec) No Anaerobes Isolated 3 Days [facility] Bacteria identified Aer cx N om (Unsp spec)Ordered By: Silvana Lundberg on 10-31-2022 Aerobic Culture Staphylococcus aureus [facility] Gram Stainon 10-31-2022 Microscopic observation Gram stain Nom (Unsp spec) Gram Stain Result No Bacteria Seen PERFORMED BY: [address] [place] [address] PATHOLOGIST PERMANENT WAVER JENNIFER CALDERON M.D. Normal [facility] Comment on above: Performed By: #### G S, AERC #### [address] Gram stain for investigation of transfusion reactionOrdered By: Silvana Lundberg on 10-31-2022 Microscopic observation Gram stain Nom (Unsp spec) [facility] CRP SerPl-mCncon 10-18-2022 CRP [Mass/Vol] mg/L Normal <0.9 [facility] Comment on above: Order Comment: Speci men Type: BLOOD SPECIMENOrdering Facility: [facility] Address: [address] [place] [address] Performed By: #### 1 988-5 ####[facility] LABCLIA [id number] [address] STATES OF [place] ESR Westergren method (Bld) [Velocity]on 10-18-2022 ESR (Bld) [Velocity] 31 mm/h High 0-15 [facility] Comment on above: Order Comment: Speci men Type: BLOOD SPECIMEN Ordering Facility: [facility] Address: [address] [place] [address] Performed By: #### 4 537-7 #### [facility] LAB CLIA [id number] STATES OF PER CNPNon 10-17-2022 [facility] ISIDROELENA ([id number]) 1960 Date Time Provider Department 10/17/22 ANNA NORTH During your visit today, we recorded the following information about you: Shelia Woods RN 10/17/2022 9:10 AM Signed Called patient to discuss results of BMP with kidney function and potassium levels still elevated. Left generic message on non-identifying voicemail to return call or read [employer] message sent to notify him. 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 LISINOPRIL 09/16/2021 16 - Unknown LOSARTAN 05/30/2022 16 - Unknown Date Reviewed: 10/06/2022 Reviewed by: Anna North APRN.CONSULTING APPLICATION ENGINEER - Fully Assessed Reason for Visit: Results [...] Status:Closed by SHELIA WOODS on 10/23/22 Normal [facility] Basic metabolic 2000 panelon 10-16-2022 Anion gap [Moles/Vol] 11 mmol/L Normal 9-18 [facility] Comment on above: Order Comment: Speci men Type: BLOOD SPECIMENOrdering Facility: [facility] Address: [address] [place] [address] Performed By: #### 2 4321-2 ####[facility] LABCLIA [id number] [place] [address] [place] Calcium [Mass/Vol] 9.8 mg/dL Normal 8.5-10.2 [facility] Comment on above: Order Comment: Speci men Type: BLOOD SPECIMENOrdering Facility: [facility] Address: [address] [place] [address] Performed By: #### 2 4321-2 ####[facility] LABCLIA [id number] [place] [address] [place] Chloride [Moles/Vol] 104 mmol/L Normal 97-105 [facility] Comment on above: Order Comment: Speci men Type: BLOOD SPECIMENOrdering Facility: [facility] Address: [address] [place] [address] Performed By: #### 2 4321-2 ####[facility] LABCLIA [id number] [place] [address] [place] CO2 [Moles/Vol] 24 mmol/L Normal 22-30 [facility] Comment on above: Order Comment: Speci men Type: BLOOD SPECIMENOrdering Facility: [facility] Address: [address] [place] [address] Performed By: #### 2 4321-2 ####[facility] LABCLIA [id number] [address] STATES OF PER Creatinine [Mass/Vol] 1.43 mg/dL High 0.73-1.22 [facility] Comment on above: Order Comment: Speci men Type: BLOOD SPECIMENOrdering Facility: [facility] Address: [address] [place] [address] Performed By: #### 2 4321-2 ####[facility] LABIA [id number] [address] OF [facility] ESTIMATED GLOMERULAR FILTRATION RATE 55 mL/min/1.73m??? Low >=60 [facility] Comment on above: Order Comment: Speci men Type: BLOOD SPECIMENOrdering Facility: [facility] Address: [address] [place] [address] Result Comment: Aneta mated Glomerular Filtration Rate [...] reflect actual GFR. Performed By: #### 2 4321-2 ####[facility] LABCLIA [id number] [place] [address] [place] Glucose [Mass/Vol] 93 mg/dL Normal 74-99 [facility] Comment on above: Order Comment: Speci men Type: BLOOD SPECIMENOrdering Facility: [facility] Address: [address] [place] [address] Result Comment: The [place] Diabetes Association (ADA) provides guidance for cutoff [...] Standards of Medical Care in Diabetes 2016, [place] [employer] Association. Diabetes Care. 2016.39(Suppl 1). Performed By: #### 2 4321-2 ####[facility] LAB[facility] [id number] [place] [address] [place] Potassium [Moles/Vol] 5.3 mmol/L High 3.7-5.1 [facility] Comment on above: Order Comment: Speci men Type: BLOOD SPECIMENOrdering Facility: [facility] Address: [address] Performed By: #### 2 4321-2 ####[facility] [id number] [place] [address] [place] Sodium [Moles/Vol] 139 mmol/L Normal 136-144 [facility] Comment on above: Order Comment: Speci men Type: BLOOD SPECIMENOrdering Facility: [facility] Address: [address] Performed By: #### 2 4321-2 ####[facility] LABIA [id number] [place] [address] [place] Urea nitrogen [Mass/Vol] 18 mg/dL Normal 9-24 [facility] Comment on above: Order Comment: Speci men Type: BLOOD SPECIMENOrdering Facility: [facility] Address: [address] Performed By: #### 2 4321-2 ####[facility] LABCLIA [id number] [place] [id number] [place] EMG(NEURO/NI)on 10-16-2022 [facility] CNPNon 10-12-2022 [facility] Telephone (NEALMN) ELENA FELIX ([id number]) 1960 M Date Time Provider Department 10/12/22 ANNA NORTH During your visit today, we recorded the following information about you: Shelia Woods RN 10/12/2022 1:13 PM Signed Called and left a generic message on non-identifying [employer] for return call if he has any questions about the [employer] message that Anna sent. 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 LISINOPRIL 09/16/2021 16 - Unknown LOSARTAN 05/30/2022 16 - Unknown Date Reviewed: 10/06/2022 Reviewed by: Anna North APRN.CONSULTING APPLICATION ENGINEER - Fully Assessed Reason for Visit: Results [...] Status:Closed by SHELIA WOODS on 10/23/22 Normal [facility] A-Tocopherol Vit E SerPl-mCn con 10-06-2022 Alpha tocopherol [Mass/Vol] 6.6 mg/L Normal 6.0-23.0 [facility] Comment on above: Order Comment: Speci men Type: BLOOD SPECIMENOrdering Facility: [facility] Address: [address] [place], [place] [address] Performed By: #### 1 823-4 ####[facility] LABCLIA [id number] [address] OF [facility] Alpha tocopherol [Mass/Vol]o n 10-06-2022 Beta+gamma tocopherol [Mass/Vol] 1.0 mg/L Normal 0.3-3.2 [facility] Comment on above: Order Comment: Speci men Type: BLOOD SPECIMENOrdering Facility: [facility] Address: [address] [place], [place] [address] Result Comment: This test was developed and its performance characteristics determined by [facility]'s Elena Velasquez [facility] Pathology and Laboratory Medicine [place] ([facility]). It has not been cleared or approved by the FDA. [facility] is regulated under CLIA as qualified to perform high-complexity testing. This test is used for clinical purposes. It should not be regarded as investigational or for research. Performed By: #### 1 823-4 ####[facility] LABCLIA [id number] [address] STATES OF PER CBC panel Auto (Bld)on 10-06 Erythrocyte distribution width (RBC) [Ratio] 16.0 % High 11.5 - 15.0 % [facility] Hematocrit (Bld) [Volume fraction] 40.1 % 39.0 - 51.0 % [facility] Hemoglobin (Bld) [Mass/Vol] 12.3 g/dL Low 13.0 - 17.0 g/dL [facility] MCH (RBC) [Entitic mass] 31.6 pg 26.0 - 34.0 pg [facility] MCHC (RBC) [Mass/Vol] 30.7 g/dL 30.5 - 36.0 g/dL [facility] MCV (RBC) [Entitic vol] 103.1 fL High 80.0 - 100.0 fL [facility] Nucleated RBC (Bld) [#/Vol] <0.01 k/uL [facility] Platelet mean volume (Bld) [Entitic vol] 10.2 fL 9.0 - 12.7 fL [facility] Platelets (Bld) [#/Vol] 286 10*3/uL 150 - 400 k/uL [facility] RBC (Bld) [#/Vol] 3.89 10*6/uL Low 4.20 - 6.0 0 m/uL [facility] WBC (Bld) [#/Vol] 7.15 10*3/uL 3.70 - 11.00 k/uL [facility] Erythrocyte distribution width (RBC) [Ratio] 16.0 % High 11.5-15.0 [facility] Comment on above: Order Comment: Speci men Type: BLOOD SPECIMENOrdering Facility: [facility] Address: [address] [place] [address] Performed By: #### 5 8410-2 ####[facility] LABCLIA [id number] [address] Hematocrit (Bld) [Volume fraction] 40.1 % Normal 39.0-51.0 [facility] Comment on above: Order Comment: Speci men Type: BLOOD SPECIMENOrdering Facility: [facility] Address: [address] [place] [address] Performed By: #### 5 8410-2 ####[facility] LABCLIA [id number] [place] [address] [place] Hemoglobin (Bld) [Mass/Vol] 12.3 g/dL Low 13.0-17.0 [facility] Comment on above: Order Comment: Speci men Type: BLOOD SPECIMENOrdering Facility: [facility] Address: [address] [place] [address] Performed By: #### 5 8410-2 ####[facility] LABCLIA [id number] [place] [address] [place] MCH (RBC) [Entitic mass] 31.6 pg Normal 26.0-34.0 [facility] Comment on above: Order Comment: Speci men Type: BLOOD SPECIMENOrdering Facility: [facility] Address: [address] [place] [address] Performed By: #### 5 8410-2 ####[facility] LABIA [id number] [place] [address] [place] MCHC (RBC) [Mass/Vol] 30.7 g/dL Normal 30.5-36.0 [facility] Comment on above: Order Comment: Speci men Type: BLOOD SPECIMENOrdering Facility: [facility] Address: [address] [place] [address] Performed By: #### 5 8410-2 ####[facility] LABIA [id number] [place] [address] [place] MCV (RBC) [Entitic vol] 103.1 fL High 80.0-100.0 [facility] Comment on above: Order Comment: Speci men Type: BLOOD SPECIMENOrdering Facility: [facility] Address: [address] [place] [address] Performed By: #### 5 8410-2 ####[facility] LABIA [id number] [place] [address] [place] Nucleated RBC (Bld) [#/Vol] 10*3/uL Normal <0.01 [facility] Comment on above: Order Comment: Speci men Type: BLOOD SPECIMENOrdering Facility: [facility] Address: [address] Performed By: #### 5 8410-2 ####[facility] LABIA [id number] [place] [address] [place] Platelet mean volume (Bld) [Entitic vol] 10.2 fL Normal 9.0-12.7 [facility] Comment on above: Order Comment: Speci men Type: BLOOD SPECIMENOrdering Facility: [facility] Address: [address] Performed By: #### 5 8410-2 ####[facility] LABIA [id number] [place] [address] [place] Platelets (Bld) [#/Vol] 286 10*3/uL Normal 150-400 [facility] Comment on above: Order Comment: Speci men Type: BLOOD SPECIMENOrdering Facility: [facility] Address: [address] [place] [address] Performed By: #### 5 8410-2 ####[facility] LABIA [id number] [place] [address] [place] RBC (Bld) [#/Vol] 3.89 10*6/uL Low 4.20-6.00 [facility] Comment on above: Order Comment: Speci men Type: BLOOD SPECIMENOrdering Facility: [facility] Address: [address] [place] [address] Performed By: #### 5 8410-2 ####[facility] LABCLIA [id number] [place] [address] [place] WBC (Bld) [#/Vol] 7.15 10*3/uL Normal 3.70-11.00 [facility] Comment on above: Order Comment: Speci men Type: BLOOD SPECIMENOrdering Facility: [facility] Address: [address] [place] [address] Performed By: #### 5 8410-2 ####[facility] LABCLIA [id number] [place] [address] [place] CERULOPLASMIN BLDon 10-07-19 23 Ceruloplasmin [Mass/Vol] 30 mg/dL 15 - 30 mg/dL [facility] CNOVon 10-06-2022 CNOV Office Visit (NEADMN ) ELENA FELIX ([id number]) 1960 M Date Time Provider Department 10/06/22 9:00 AM ANNA NORTH During your visit today, we recorded the following information about you: Pulse Blood pressure Weight Height 83/minute 106/59 131.5 kg 1.88 m Anna North APRN.CONSULTING APPLICATION ENGINEER 10/06/2022 10:14 AM Signed [facility] New Patient Evaluation Chief Complaint/Issues: Elena Felix is a 62 year old right-handed male seen in the [facility] for: New patient Orthostatic [...] years ago. Used to work in [employer]. Today we discuss his symptoms: Accompanied by , Maricel, who contributes to the history. Ganesh has ankylosing spondylitis, diagnosed at age 19. He has had multiple back and hip surgeries. His ply bander is locally in [place]. He had surgery in 2019, had a [...] and heart issues. He sees cardiology in [facility]. He had a heart cath and showed [...] PT in the past and sees his ply bander for the neck. PMH PAST MEDICAL HISTORY Diagnosis Date Ankylosing spondylitis ([facility]) Dr Hodges Ankylosing spondylitis ([facility]) Arthritis Back pain Cardiomyopathy (H[facility]) Nonischemic Congestive Cerebrovascular small vessel disease 08/24/2016 On ASA DVT (deep venous thrombosis) ([facility]) Esophageal reflux Former smoker Kidney stones Major depressive disorder with single episode, in remission ([facility]) 08/24/2016 Morbid obesity with BMI of 40.0-44.9, adult ([facility]) Neuropathy Obstructive sleep apnea syndrome, severe [...] 10-15 seconds (more content not included)... Normal [facility] COPPER BLOODon 10-06-2022 Copper [Mass/Vol] 127 ug/dL Normal 70-140 [facility] Comment on above: Order Comment: Speci men Type: BLOOD SPECIMEN [facility] Address: [address] [place] [address] [place] [address] Result Comment: This test was developed and its performance characteristics determined by [facility]'s [facility] [place] ([facility]). It has not been cleared or approved by the FDA. [facility] is regulated under CLIA as qualified to perform high-complexity testing. This test is used for clinical purposes. It should not be regarded as investigational or for research. Performed By: #### 4 537-7 #### [facility] LAB CLIA [id number] [address] [id number] [facility] OF PER Ceruloplasmin SerPl-mCncon 0 10-06-2022 Ceruloplasmin [Mass/Vol] 30 mg/dL Normal 15-30 [facility] Comment on above: Order Comment: Speci men Type: BLOOD SPECIMENOrdering Facility: [facility] Address: [address] [place] [address] Performed By: #### 2 4323-8, 2064-4, 2276-4, 3016-3 ####[facility] LABCLIA [id number] [address] STATES OF PER Comprehensive metabolic 2000 panelon 10-06-2022 Albumin [Mass/Vol] 3.6 g/dL Low 3.9 - 4.9 g/dL [facility] ALP [Catalytic activity/Vol] 72 U/L 38 - 113 U/L [facility] ALT [Catalytic activity/Vol] 17 U/L 10 - 54 U/L [facility] Anion gap [Moles/Vol] 9 mmol/L 9 - 18 mmol/L [facility] AST [Catalytic activity/Vol] 21 U/L 14 - 40 U/L [facility] Bilirubin [Mass/Vol] 0.2 mg/dL 0.2 - 1 .3 mg/dL [facility] Calcium [Mass/Vol] 9.5 mg/dL 8.5 - 10. 2 mg/dL [facility] Chloride [Moles/Vol] 108 mmol/L High 97 - 10 5 mmol/L [facility] CO2 [Moles/Vol] 25 mmol/L 22 - 30 mmol/L [facility] Creatinine [Mass/Vol] 1.43 mg/dL High 0.73 - 1.22 mg/dL [facility] Estimated Glomerular Filtration Rate 55 mL/min/1.73m Low >=60 mL/min/1.73 m [facility] Glucose [Mass/Vol] 100 mg/dL High 74 - 99 mg/dL [facility] Potassium [Moles/Vol] 5.4 mmol/L High 3.7 - 5.1 mmol/L [facility] Protein [Mass/Vol] 6.7 g/dL 6.3 - 8.0 g/dL [facility] Sodium [Moles/Vol] 142 mmol/L 136 - 144 mmol/L [facility] Urea nitrogen [Mass/Vol] 24 mg/dL 9 - 24 mg/dL [facility] Albumin [Mass/Vol] 3.6 g/dL Low 3.9-4.9 [facility] Comment on above: Order Comment: Speci men Type: BLOOD SPECIMENOrdering Facility: [facility] Address: [address] [address] [place], [place] [address] Performed By: #### 2 4323-8, 2063-4, 2275-4, 3016-3 ####[facility] LABIA [id number] [place] [address] [place] ALP [Catalytic activity/Vol] 72 U/L Normal 38-113 [facility] Comment on above: Order Comment: Speci men Type: BLOOD SPECIMENOrdering Facility: [facility] Address: [address] [place], [place] [address] Performed By: #### 2 4323-8, 2063-4, 2275-4, 3016-3 ####[facility] LABIA [id number] [place] [address] [place] ALT [Catalytic activity/Vol] 17 U/L Normal 10-54 [facility] Comment on above: Order Comment: Speci men Type: BLOOD SPECIMENOrdering Facility: [facility] Address: [address] [place], [place] [address] Performed By: #### 2 4323-8, 2063-4, 2275-4, 3016-3 ####[facility] LABIA [id number] [place] [id number] [place] Anion gap [Moles/Vol] 9 mmol/L Normal 9-18 [facility] Comment on above: Order Comment: Speci men Type: BLOOD SPECIMENOrdering Facility: [facility] Address: [address] [place], [place] [address] Performed By: #### 2 4323-8, 2063-4, 2275-4, 6-3 ####[facility] LABCLIA [id number] [place] [address] [place] AST [Catalytic activity/Vol] 21 U/L Normal 14-40 [facility] Comment on above: Order Comment: Speci men Type: BLOOD SPECIMENOrdering Facility: [facility] Address: [address] [place] [address] Performed By: #### 2 4323-8, 2063-4, 2275-4, 6-3 ####[facility] LABIA [id number] [place] [address] [place] Bilirubin [Mass/Vol] 0.2 mg/dL Normal 0.2-1.3 [facility] Comment on above: Order Comment: Speci men Type: BLOOD SPECIMENOrdering Facility: [facility] Address: [address] [place] [address] Performed By: #### 2 4323-8, 4, 2275-4, 6-3 ####[facility] LABIA [id number] [place] [address] [place] Calcium [Mass/Vol] 9.5 mg/dL Normal 8.5-10.2 [facility] Comment on above: Order Comment: Speci men Type: BLOOD SPECIMENOrdering Facility: [facility] Address: [address] [place] [address] Performed By: #### 2 4323-8, 2063-4, 2275-4, 3016-3 ####[facility] LABIA [id number] [place] [address] [place] Chloride [Moles/Vol] 108 mmol/L High 97-105 [facility] Comment on above: Order Comment: Speci men Type: BLOOD SPECIMENOrdering Facility: [facility] Address: [address] [place] [address] Performed By: #### 2 4323-8, 2063-4, 2275-4, 6-3 ####[facility] LABCLIA [id number] [place] [address] [place] CO2 [Moles/Vol] 25 mmol/L Normal 22-30 [facility] Comment on above: Order Comment: Speci men Type: BLOOD SPECIMENOrdering Facility: [facility] Address: [address] [place] [address] Performed By: #### 2 4323-8, 2063-07, 2275-4, 6-3 ####[facility] LABIA [id number] [address] STATES OF [facility] Creatinine [Mass/Vol] 1.43 mg/dL High 0.73-1.22 [facility] Comment on above: Order Comment: Speci men Type: BLOOD SPECIMENOrdering Facility: [facility] Address: [address] [place] [address] Performed By: #### 2 4323-8, 2063-07, 2275-07, 3015-3 ####[facility] LABIA [id number] [address] ESTIMATED GLOMERULAR FILTRATION RATE 55 mL/min/1.73m??? Low >=60 [facility] Comment on above: Order Comment: Speci men Type: BLOOD SPECIMENOrdering Facility: [facility] Address: [address] [place] [address] Result Comment: Aneta mated Glomerular Filtration Rate [...] By: #### 2 4323-8, 2063-4, 2275-4, 6-3 ####[facility] LABCLIA [id number] [place] [address] [place] Glucose [Mass/Vol] 100 mg/dL High 74-99 [facility] Comment on above: Order Comment: Speci men Type: BLOOD SPECIMENOrdering Facility: [facility] Address: [address] [place], [place] [address] Result Comment: The [place] Diabetes Association (ADA) provides guidance for cutoff [...] Standards of Medical Care in Diabetes 2016, [place] Diabetes Association. Diabetes Care. 2016.39(Suppl 1). Performed By: #### 2 4323-8, 4-4, 6-4, 3016-3 ####[facility] LABIA [id number] [place] [address] [place] Potassium [Moles/Vol] 5.4 mmol/L High 3.7-5.1 [facility] Comment on above: Order Comment: Speci men Type: BLOOD SPECIMENOrdering Facility: [facility] Address: [address] [place], [place] [address] Performed By: #### 2 4323-8, 4-4, 6-4, 3016-3 ####[facility] LABIA [id number] [place] [address] [place] Protein [Mass/Vol] 6.7 g/dL Normal 6.3-8.0 [facility] Comment on above: Order Comment: Speci men Type: BLOOD SPECIMENOrdering Facility: [facility] Address: [address] [place] [address] Performed By: #### 2 4323-8, 2063-4, 2275-4, 6-3 ####[facility] LABCLIA [id number] [place] [address] [place] Sodium [Moles/Vol] 142 mmol/L Normal 136-144 [facility] Comment on above: Order Comment: Speci men Type: BLOOD SPECIMENOrdering Facility: [facility] Address: [address] [place], [place] [address] Performed By: #### 2 4323-8, 2063-07, 4, 3015-3 ####[facility] LABCLIA [id number] [place] [address] [place] Urea nitrogen [Mass/Vol] 24 mg/dL Normal 9-24 [facility] Comment on above: Order Comment: Speci men Type: BLOOD SPECIMENOrdering Facility: [facility] Address: [place] [address] Performed By: #### 2 4323-8, 2063-07, 2275-07, 3 ####[facility] LABCLIA [id number] [place] [address] [place] FERRITIN BLDon 10-06-2022 Ferritin [Mass/Vol] 143.0 ng/mL 30.3 - 565.7 ng/mL [facility] FOLATE SERUMon 10-06-2022 Folate [Mass/Vol] 8.8 ng/mL >4.7 ng/mL [facility] Ferritin SerPl-mCncon 2022 Ferritin [Mass/Vol] 143.0 ng/mL Normal 30.3-565.7 [facility] Comment on above: Order Comment: Speci men Type: BLOOD SPECIMENOrdering Facility: [facility] Address: [address] [place] [address] Performed By: #### 2 4323-8, 2063-4, 2275-4, 6-3 ####[facility] LABCLIA [id number] [place] [address] [place] Folate SerPl-mCncon 10-07-19 Folate [Mass/Vol] 8.8 ng/mL Normal >4.7 [facility] Comment on above: Order Comment: Jimena wallace Type: BLOOD SPECIMENOrdering Facility: [facility] Address: [address] [place] [address] Performed By: #### 2 284-8, 2132-9 ####[facility] LABCLIA [id number] [place] [address] [place] HOMOCYSTEINEon 10-06-2022 Homocysteine [Moles/Vol] 14.7 umol/L <15.1 umol/L [facility] HbA1c (Bld)on 10-06-2022 Average glucose Estimated from glycated hemoglobin (Bld) [Mass/Vol] 94 mg/dL Normal [facility] Comment on above: Order Comment: Jimena wallace Type: BLOOD SPECIMEN [facility] Address: [address] [place] [address] Result Comment: eAG: (Estimated average glucose) is a calculated value from HgbA1c and is promotional representative of the average blood glucose level in the last 2-3 month period. Performed By: #### 4 537-7 #### [facility] LAB CLIA [id number] STATES OF [facility] HbA1c (Bld) [Mass fraction] 4.9 % Normal 4.3-5.6 [facility] Comment on above: Order Comment: Jimena wallace Type: BLOOD SPECIMEN [facility] Address: [address] [place] [address] Result Comment: [place] Diabetes Association guidelines indicate that patients with HgbA1c in the range 5.7-6.4% are at increased risk for development of diabetes, and intervention by lifestyle modification may be beneficial. HgbA1c greater or equal to 6.5% is considered diagnostic of diabetes. Performed By: #### 4 537-7 #### [facility] LAB CLIA [id number] [address] [place] [address] [place] Hcys SerPl-sCncon 10-06-2022 Homocysteine [Moles/Vol] 14.7 umol/L Normal <15.1 [facility] Comment on above: Order Comment: Speci men Type: BLOOD SPECIMEN [facility] Address: [address] [place] [address] Performed By: #### 4 537-7 #### [facility] LAB CLIA [id number] [address] [place] [address] STATES OF PER IMMUNOFIXATION SCREEN, SERUM on 10-06-2022 MPA RESULT No M protein is identified. Normal No M protein is identified. [facility] Comment on above: Order Comment: Speci men Type: BLOOD SPECIMEN [facility] Address: [address] [place] [address] Performed By: #### 4 537-7 #### [facility] CLIA [id number] [address] [place] [address] OF PER STAFF REVIEW (MPA) Reviewed by Dr. Sadie Tam MD [facility] Comment on above: Order Comment: Speci men Type: BLOOD SPECIMEN [facility] Address: [address] [place] [address] Performed By: #### 4 537-7 #### [facility] CLIA [id number] [address] [place] [address] [place] KAPPA/KEANE,FREE,SERon 2022 Immunoglobulin light chains.kappa.free (S) [Mass/Vol] 36.7 mg/L High 3.3-19.4 [facility] Comment on above: Order Comment: Speci men Type: BLOOD SPECIMENOrdering Facility: [facility] Address: [address] [place] [address] Result Comment: Rare ly, increased serum free light chains levels may not be detected or accurately quantified due to prozone phenomenon or in high viscosity samples using this immunoturbidimetric assay. Correlation with other laboratory results and clinical findings is recommended. The [place] Free Light Chain was performed using the Binding Site Optilite immunoturbidimetric method. Result obtained with different assay methods or kits cannot be used interchangeably. Performed By: #### K LFRS ####[facility] LABCLIA [id number] [address] Immunoglobulin light chains.kappa/Immunogl obulin light chains.lambda (S) [Mass ratio] 2.53 High 0.26-1.65 [facility] Comment on above: Order Comment: Speci men Type: BLOOD SPECIMENOrdering Facility: [facility] Address: [address] [place] [address] Performed By: #### K LFRS ####[facility] [id number] [address] Immunoglobulin light chains.lambda.free [Mass/Vol] 14.5 mg/L Normal 5.7-26.3 [facility] Comment on above: Order Comment: Speci men Type: BLOOD SPECIMENOrdering Facility: [facility] Address: [address] [place] [address] Result Comment: Rare ly, increased serum free [...] cannot be used interchangeably. Performed By: #### K LFRS ####[facility] LABCLIA [id number] [place] [address] [place] TSH BLDon 10-06-2022 TSH Qn 2.100 m[IU]/L 0.270 - 4.200 mIU/L [facility] TSH SerPl-aCncon 10-06-2022 TSH Qn 2.100 m[IU]/L Normal 0.270-4.200 [facility] Comment on above: Order Comment: Speci men Type: BLOOD SPECIMENOrdering Facility: [facility] Address: [place] [address] Performed By: #### 2 4323-8, 2064-4, 2276-4, 3016-3 ####[facility] LABCLIA [id number] [place] [address] [place] VITAMIN B1 (THIAMINE), WHOLE BLOODon 10-06-2022 Thiamine (Bld) [Moles/Vol] 154.8 nmol/L Normal 84.3-213.3 [facility] Comment on above: Order Comment: Speci men Type: BLOOD SPECIMENOrdering Facility: [facility] Address: [address] [place] [id number] Result Comment: This assay measures the concentration of thiamine diphosphate (TDP), the primary active form of vitamin B1. Approximately 90 percent of vitamin B1 present in whole blood is TDP. Thiamine and thiamine monophosphate, which comprise the remaining 10 percent, are not measured. This test was developed and its performance characteristics determined by [facility] [place] ([facility]). It has not been cleared or approved by the FDA. [facility] is regulated under CLIA as qualified to perform high-complexity testing. This test is used for clinical purposes. It should not be regarded as investigational or for research. Performed By: #### B 1WB ####[facility] LABCLIA [id number] [place] [address] [place] VITAMIN B12 BLOODon 10-07-19 Cobalamin (Vitamin B12) [Mass/Vol] 355 pg/mL 232 - 1,245 pg/mL [facility] VITAMIN B6/PYRIDOXINon 10-06 VITAMIN B6 9.7 nmol/L Low 20.0-125.0 [facility] Comment on above: Order Comment: Speci men Type: BLOOD SPECIMENOrdering Facility: [facility] Address: [place] [address] Result Comment: INTE RPRETIVE INFORMATION: Vitamin B6 (Pyridoxal 5-Phosphate) Pyridoxal 5'-phosphate measured in a specimen collected following an 8-hour or overnight fast accurately indicates vitamin B6 nutritional status. Non-fasting specimen concentration reflects recent vitamin intake. This test was developed and its performance characteristics determined by [facility]. It has not been cleared or approved by the US Food and Drug Administration. This test was performed in a CLIA certified laboratory and is intended for clinical purposes. Performed By: [facility] [address] [place] [address] Cold Header: Kevan Vu MD, PhD Performed By: #### V ITB6 ####[facility] [id number] [place] [address] Vit B12 SerPl-mCncon 023 Cobalamin (Vitamin B12) [Mass/Vol] 355 pg/mL Normal 232-1245 [facility] Comment on above: Order Comment: Speci men Type: BLOOD SPECIMENOrdering Facility: [facility] Address: [address] [place] [address] Performed By: #### 2 284-8, 2132-9 ####[facility] LABCLIA [id number] [place] [address] [place] Zinc SerPl-mCncon 10-06-2022 Zinc [Mass/Vol] 36 ug/dL Low 60-120 [facility] Comment on above: Order Comment: Speclevi wallace Type: BLOOD SPECIMEN [facility] Address: [address] [place] [address] Result Comment: This test was developed and its performance characteristics determined by [facility]'s Elena Velasquez [facility] [place] ([facility]). It has not been cleared or approved by the FDA. [facility] is regulated under CLIA as qualified to perform high-complexity testing. This test is used for clinical purposes. It should not be regarded as investigational or for research. Performed By: #### 4 537-7 #### [facility] CLIA [id number] [address] [place] [address] [place] NM LUNG VENT / PERF VQon NM LUNG VENT / PERF VQ * * *Final Report* * * DATE OF EXAM: Oct 04 2022 10:53AM [facility] 0032 - [place] LUNG VENT / PERF [...] WITH A LOW PROBABILITY OF PULMONARY EMBOLISM. Traffic Observer: PSCB Transcribe Date/Time: Oct 04 2022 10:57A Dictated by : ZBIGNIEW WEBSTER MD This examination was interpreted and the report reviewed and electronically signed by: ZBIGNIEW WEBSTER MD on Oct 04 2022 10:58AM EST [id number] Normal [facility] Telemedicineon 10-03-2022 Telemedicine [id number] Miguel Felix 1960 M Date Provider Department Center 10/03/2022 ALFREDO CORTEZ [facility] Family History Problem Relation Age of Onset No Known Problems Mother No Known Problems Father Family Status - Relation Status Age at Mother Father Level of Service:56166 MO OFFICE/OUTPATIENT ESTABLISHED LOW MDM 20-29 MIN Reason for Visit and Comments: Telehealth Phone Visit [872] Normal [facility] ECHOon 09-13-2022 [facility] LVEF ECHOon 09-13-2022 LV Ejection Fraction 51 % Abnormal <52 % [facility] CBC AUTO DIFFon 09-06-2022 BASO # 0.1 103/ul Normal 0.0-0.1 [facility] Comment on above: Performed By: #### C MADM, BNP, BMP #### [facility] [address] [place] [address] [address] Risa Patterson Basophils/100 WBC (Bld) 1.1 % Normal 0.2-2.0 [facility] Comment on above: Performed By: #### C MADM, BNP, BMP #### [facility] [address] [place] [address] Dr. Risa Patterson EO # 0.3 103/ul Normal 0.0-0.7 [facility] Comment on above: Performed By: #### C MADM, BNP, BMP #### [facility] [address] [place] [address] Dr. Risa Patterson Eosinophils/100 WBC (Bld) 5.9 % Normal 0.9-7.0 [facility] Comment on above: Performed By: #### C MADM, BNP, BMP #### [facility] [address] [place] [address] Dr. Risa Patterson Erythrocyte distribution width (RBC) [Ratio] 15.1 % Critically high 11.0-15.0 [facility] Comment on above: Performed By: #### C MADM, BNP, BMP #### [facility] [address] [place] [address] Dr. Risa Patterson Hematocrit (Bld) [Volume fraction] 36.6 % Critically low 42.0-54.0 [facility] Comment on above: Performed By: #### C MADM, BNP, BMP #### [facility] [address] [place] [address] Dr. Risa Patterson Hemoglobin (Bld) [Mass/Vol] 11.4 g/dL Critically low 14.0-18.0 [facility] Comment on above: Performed By: #### C MADM, BNP, BMP #### [facility] [address] [place] [address] Dr. Risa Patterson IG # 0.02 10e3/ul Normal 0.00-0.03 [facility] Comment on above: Performed By: #### C MADM, BNP, BMP #### [facility] [address] [place] [address] Dr. Risa Patterson IG % 0.4 % Normal 0.0-0.5 [facility] Comment on above: Performed By: #### C MADM, BNP, BMP #### [facility] [address] [place] [address] Dr. Risa Patterson LYMPH # 0.9 103/ul Critically low 1.2-3.8 [facility] Comment on above: Performed By: #### C MADM, BNP, BMP #### [facility] [address] [place] [address] Dr. Risa Patterson Lymphocytes/100 WBC (Bld) 20.4 % Critically low 20.5-60.0 [facility] Comment on above: Performed By: #### C MADM, BNP, BMP #### [facility] [address] [place] [address] Dr. Risa Patterson MANUAL DIFF REQ NO Normal [facility] Comment on above: Performed By: #### C MADM, BNP, BMP #### [facility] [address] [place] [address] Dr. Risa Patterson MCH (RBC) [Entitic mass] 31.1 pg Normal 25.9-34.0 [facility] Comment on above: Performed By: #### C MADM, BNP, BMP #### [facility] [address] [place] [address] Dr. Risa Patterson MCHC (RBC) [Mass/Vol] 31.1 g/dL Normal 29.9-35.2 [facility] Comment on above: Performed By: #### C MADM, BNP, BMP #### [facility] [address] [place] [address] Dr. Risa Patterson MCV (RBC) [Entitic vol] 100.0 fL Critically high 80.0-94.0 [facility] Comment on above: Performed By: #### C MADM, BNP, BMP #### [facility] [address] [place] [address] Dr. Risa Patterson MONO # 0.3 103/ul Normal 0.3-0.8 [facility] Comment on above: Performed By: #### C MADM, BNP, BMP #### [facility] [address] [place] [address] Dr. Risa Patterson Monocytes/100 WBC (Bld) 6.6 % Normal 1.7-12.0 [facility] Comment on above: Performed By: #### C MADM, BNP, BMP #### [facility] [address] [place] [address] [address] Risa Patterson NEUT # 3.0 103/ul Normal 1.4-6.5 [facility] Comment on above: Performed By: #### C MADM, BNP, BMP #### [facility] [address] [place] [address] [address] Risa Patterson Neutrophils/100 WBC (Bld) 65.6 % Normal 43.0-75.0 [facility] Comment on above: Performed By: #### C MADM, BNP, BMP #### [facility] [address] [place] [address] [address] Risa Patterson Platelet mean volume (Bld) [Entitic vol] 9.1 fL Critically low 9.5-13.5 [facility] Comment on above: Performed By: #### C MADM, BNP, BMP #### [facility] [address] [place] [address] Dr. Risa Patterson PLT 286 103/ul Normal 150-450 [facility] Comment on above: Performed By: #### C MADM, BNP, BMP #### [facility] [address] [place] [address] Dr. Risa Patterson RBC 3.66 106/ul Critically low 4.70-6.10 [facility] Comment on above: Performed By: #### C MADM, BNP, BMP #### [facility] [address] [place] [address] Dr. Risa Patterson WBC 4.6 103/ul Normal 4.0-11.0 [facility] Comment on above: Performed By: #### C MADM, BNP, BMP #### [facility] [address] [place] [address] Dr. Risa Patterson PROF 14(COMP METB)on 023 Albumin [Mass/Vol] 2.9 g/dL Critically low 3.4-5.0 [facility] Comment on above: Performed By: #### C MP #### [facility] [address] [place] [address] Dr. Risa Patterson Albumin/Globulin [Mass ratio] 0.7 {ratio} Normal [facility] Comment on above: Performed By: #### C MP #### [facility] [address] [place] [address] Dr. Risa Patterson ALP [Catalytic activity/Vol] 66 U/L Normal 46-116 [facility] Comment on above: Performed By: #### C MP #### [facility] [address] [place] [address] [address] Risa Patterson ALT [Catalytic activity/Vol] 31 U/L Normal 16-63 [facility] Comment on above: Performed By: #### C MP #### [facility] [address] [place] [address] Dr. Risa Patterson Anion gap [Moles/Vol] 15.6 mmol/L Normal Th [facility] Comment on above: Performed By: #### C MP #### [facility] [address] [place] [address] Dr. Risa Patterson AST [Catalytic activity/Vol] 35 U/L Normal 15-37 [facility] Comment on above: Performed By: #### C MP #### [facility] [address] [place] [address] Dr. Risa Patterson Bilirubin [Mass/Vol] 0.4 mg/dL Normal 0.2-1.0 [facility] Comment on above: Performed By: #### C MP #### [facility] [address] [place] [address] Dr. Risa Patterson Calcium [Mass/Vol] 8.9 mg/dL Normal 8.5-10.1 [facility] Comment on above: Performed By: #### C MP #### [facility] [address] [place] [address] Dr. Risa Patterson Chloride [Moles/Vol] 105 mmol/L Normal 98-107 [facility] Comment on above: Performed By: #### C MP #### [facility] [address] [place] [address] Dr. Risa Patterson CO2 [Moles/Vol] 24.5 mmol/L Normal 21.0-32.0 [facility] Comment on above: Performed By: #### C MP #### [facility] [facility] [address] [address] [address] Risa Patterson Creatinine [Mass/Vol] 1.35 mg/dL Critically high 0.70-1.30 [facility] Comment on above: Performed By: #### C MP #### [facility] [address] [address] [address] Risa Patterson EGFR-AF ZAMBIAN >60 Normal >=60 [facility] Comment on above: Performed By: #### C MP #### [facility] [address] [address] [address] Risa Patterson EGFR-NON AF ZAMBIAN 54 mL/min/1.73m2 Critically low >=60 [facility] Comment on above: Performed By: #### C MP #### [facility] [address] [place] [address] Dr. Risa Patterson Globulin (S) [Mass/Vol] 4.3 g/dL Normal [facility] Comment on above: Performed By: #### C MP #### [facility] [address] [place] [address] Dr. Risa Patterson Glucose [Mass/Vol] 107 mg/dL Critically high 74-106 T [facility] Comment on above: Performed By: #### C MP #### [facility] [address] [place] [address] Dr. Risa Patterson Potassium [Moles/Vol] 4.1 mmol/L Normal 3.5-5.1 [facility] Comment on above: Performed By: #### C MP #### [facility] [address] [place] [address] Dr. Risa Patterson Protein [Mass/Vol] 7.2 g/dL Normal 6.4-8.2 [facility] Comment on above: Performed By: #### C MP #### [facility] [address] [place] [address] Dr. Risa Patterson Sodium [Moles/Vol] 141 mmol/L Normal 136-145 [facility] Comment on above: Performed By: #### C MP #### [facility] [address] [address] [address] Risa Patterson Urea nitrogen [Mass/Vol] 19.0 mg/dL Critically high 7.0-18.0 [facility] Comment on above: Performed By: #### C MP #### [facility] [address] [address] [address] Risa Patterson Urea nitrogen/Creatinine [Mass ratio] 14.1 mg/mg Normal [facility] Comment on above: Performed By: #### C MP #### [facility] [address] [address] [address] Risa Patterson SED RATE formerly [facility] 2022 SED RATE 57 mm/hr Critically high <=20 [facility] Comment on above: Performed By: #### S EDR #### [facility] [address] [address] [address] Risa Patterson [facility] ELE[facility] FELIX ([id number]) 1960 M Date Time Provider Department 08/28/22 EMILY ANDERSONSarai During your visit today, we recorded the [...] hospital information, hotel information. Instructed By Silvina Bethea, RN, RN. In Department of CARDIOLOGY. Allergies [...] Status:Closed by LAURYN BETHEA RN on 08/28/22 [facility] CNOVon 08-16-2022 CNOV Office Visit (RHARMN ) ELENA FELIX ([id number]) 1960 M Date Time Provider Department 08/16/22 10:00 AM ALEXUS NANCE During your visit today, we recorded the following information about you: Alexus Nance PA-C 09/19/2022 6:06 AM Signed [facility] Date of Service: 08/16/2022 Patient: Elena Felix Medical Record: [id number] Primary Care Physician: Silvana Lundberg MD Last Rheumatology visit: None at the [facility] Referring Provider: Tricia Howard MD [address] [facility] [address] Consultation requested by Tricia Howard MD for [...] years later. He currently follows with a ply bander, Dr. Brad Hodges, in [place], [place] who he is happy with. However, reports ply bander told him, he is only his third patient with ankylosing spondylitis and so presents to [facility] rheum for assistance on treatment [...] mass areas in the brain. Reports his ply bander has considered a TNF-alpha inhibitor again, but [...] Ankylosing spondylitis (HCC) Dr Hodges Ankylosing spondylitis ([facility]) Arthritis Back pain Cardiomyopathy ([facility]) Nonischemic Congestive Cerebrovascular small vessel disease 08/24/2016 On ASA DVT (deep venous thrombosis) ([facility]) Esophageal reflux Former smoker Kidney stones Major depressive disorder with single episode, in remission ([facility]) 08/24/2016 Morbid obesity with BMI of 40.0-44.9, adult ([facility]) Neuropathy Obstructive sleep apnea syndrome, severe [...] Mother Stroke (more content not included)... Normal [facility] CN Office Visit (CARCMN ) ELENA FELIX ([id number]) 1960 M Date Time Provider Department 08/16/22 7:15 AM TRICIA HOWARD CARCMN During your visit today, we recorded the following information about you: Pulse Blood pressure Weight Height 89/minute 114/78 132.4 kg 1.88 m Tricia Howard MD 08/16/2022 1:01 PM Signed [facility] [place] [facility]ann[facility] Department of Cardiovascular Medicine SECTION OF CLINICAL CARDIOLOGY OUTPATIENT VISIT DATE August 16, 2022 OUTPATIENT VISIT TYPE NEW PRIMARY CARE PHYSICIAN : Silvana Lundberg ([place]) [facility] [place] [address] REFERRING PHYSICIAN: No referring provider defined for this encounter. CHIEF COMPLAINT: Palpitations, lightheadedness HISTORY OF PRESENT ILLNESS: Mr. 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 Starting in 2019 post-op, began experiencing [...] 20 years ago. Used to work in [employer]. Fmaily hx of stroke in mother and father. PAST MEDICAL HISTORY Diagnosis Date Ankylosing spondylitis ([facility]) Dr Hodges Ankylosing spondylitis ([facility]) Arthritis Back pain Cardiomyopathy ([facility]) Nonischemic Congestive Cerebrovascular small vessel disease 08/24/2016 On ASA DVT (deep venous thrombosis) ([facility]) Esophageal reflux Former smoker Kidney stones Major depressive disorder with single episode, in remission ([facility]) 08/24/2016 Morbid obesity with BMI of 40.0-44.9, adult ([facility]) Neuropathy Obstructive sleep apnea syndrome, severe [...] Take 5 (more content not included)... Normal [facility] ECG COMPLETEon 08-16-2022 Atrial Rate 83 BPM [facility] Calculated P Bryant 27 degrees [facility] Calculated R Bryant 14 degrees [facility] Calculated T Bryant 38 degrees [facility] P-R Interval 158 ms [facility] QRS Duration 86 ms [facility] QT Interval 350 ms [facility] QTC Calculation (Bazett) 411 ms [facility] Ventricular Rate 83 BPM [facility] ECG COMPLETE Ventricular Rate : 8 3 BPM Atrial Rate : 83 BPM P-R Interval : 158 ms QRS Duration : 86 ms Q-T Interval : 350 ms QTC Calculation(Bazett) : 411 ms Calculated P Bryant : 27 degrees Calculated R Bryant : 14 degrees Calculated T Bryant : 38 degrees NORMAL SINUS RHYTHM NORMAL ECG Confirmed by YELENA FUENTES MD ([id number]) on 08/16/2022 10:01:53 AM NAME : ELENA FELIX PID : [id number] : 1960 Gender : Male Race : ORD : [id number] Procedure Date : Aug 16 2022 07:21:17 Edit Date : Aug 16 2022 10:01:54 Diagnosis: NORMAL SINUS RHYTHM NORMAL ECG Confirmed by YELENA FUENTES MD ([id number]) on 08/16/2022 10:01:53 AM Test Reason : Location : 314 : J14 J14 Overread By : YELENA FUENTES MD Edited By : YELENA FUENTES MD Referred By : TRICIA HOWARD Acquired by : RENETTA GOODWIN [facility] ISIDROELENA NOVOA Shola ([id number]) 1960 M Date Time Provider Department 08/15/22 TRICIA HOWARD CARCRI During your visit today, we recorded the following information about you: Geovanni Baker 08/15/2022 12:55 PM Signed Images received from [employer] by mail. Images uploaded to [employer]. Patient has a future appointment on: 08/16/22. [...] Reason for Visit: Received Outside Medical Records [[id number]] Prescriptions as of 08/15/2022 - cyclobenzaprine (FLEXERIL) [...] Status:Closed by GEOVANNI BAKER on 08/15/22 Normal [facility] Office Visiton 08-10-2022 Follow-up visit [id number] Miguel Felix 1960 M Date Provider Department Center 08/10/2022 MARIA TERESA BARNEY KISHORE [facility] Family History Problem Relation Age of Onset No Known Problems Mother No Known Problems Father Family Status - Relation Status Age at Mother Father Level of Service:26589 MO OFFICE/OUTPATIENT ESTABLISHED MOD MDM 30-39 MIN Normal [facility] Yuan 08-04-2022 [facility] Telephone (CARCMN) ELENA FELIX ([id number]) 1960 M Date Time Provider Department 08/04/22 TRICIA HOWARD During your visit today, we recorded the following information about you: Geovanni Baker 08/04/2022 4:50 PM Signed Contact patient noting the medical records were received but no images were provided. VMM left noting that images are still needed. Geovanni Baker August 04, 2022 4:34 PM Geovanni Baker 08/04/2022 4:50 PM Signed Records received from [facility] by fax. Records uploaded to [employer] and [...] Status:Closed by GEOVANNI BAKER on 09/15/22 Normal [facility] CNCOon 08-03-2022 CNCO Letter Text Normal [facility] TILT TABLE TESTon 08-01-2022 TILT TABLE TEST [address] [place] [id number] TILT TABLE TEST PATIENT NAME: ELENA FELIX : 1960 MED REC NO: [id number] ROOM: ACCOUNT NO: [id number] ADMIT DATE: 07/31/2022 PROVIDER: Santos Barrios MD Cardiovascular Diagnostics Department DATE OF PROCEDURE: 07/31/2022 ORDERING PROVIDER: Carlos Krishna APRN-CONSULTING APPLICATION ENGINEER PRIMARY CARE PROVIDER: Silvana Lundberg MD INTERPRETING [...] up with their primary care physician and/or reducing machine operator as previously scheduled. STUDY CONCLUSIONS: Abnormal head [...] treatment of this condition. SANTOS BARRIOS MD BRANDON/SONI_TRAVIS Doc#: Unknown CC: Silvana Krishna [facility] 07-12-2022 [facility] Telephone (CARCMN) ELENA FELIX ([id number]) 1960 M Date Time Provider Department 07/12/22 TRICIA HOWARD CARCRI During your visit today, we recorded the following information about you: Geovanni Baker 07/12/2022 2:02 PM Signed Contacted patient via Phone -no answer; M left requesting for cardiac records prior to [...] Status:Closed by GEOVANNI BAKER on 07/12/22 Normal [facility] Office Visiton 07-12-2022 Follow-up visit [id number] Miguel Felix 1960 M Date Provider Department Center 07/12/2022 [facility] Family History Problem Relation Age of Onset No Known Problems Mother No Known Problems Father Family Status - Relation Status Age at Mother Father Level of Service:21699 MO OFFICE/OUTPATIENT ESTABLISHED MOD MDM 30-39 MIN Reason for Visit and Comments: Congestive Heart Failure [127] Hypertension [311816] POTS [Other] Normal [facility] 36on 07-05-2022 36 Per Ted from [facility] car diac rehab, patient is very orthostatic and is very dizzy. It's very hard for him to ride the bikes at cardiac rehab due to dizziness. Can he cut the metoprolol? Normal [facility] Documentationon 07-05-2022 Documentation [id number] Miguel Felix 1960 M [facility] Provider Department Center 07/05/2022 120-MARIA TERESA BA [facility] Family History Problem Relation Age of Onset No Known Problems Mother No Known Problems Father Family Status - Relation Status Age at Mother Father Reason for Visit and Comments: POTS [Other] [facility] Orders Onlyon 07-05-2022 Orders Only [id number] Miguel Felix 1960 M [facility] Provider Department Center 07/05/2022 120-MAIRA TERESA BA [facility] Family History Problem Relation Age of Onset No Known Problems Mother No Known Problems Father Family Status - Relation Status Age at Mother Father [facility] CBC AUTO DIFFon 07-04-2022 BASO # 0.1 103/ul Normal 0.0-0.1 [facility] Comment on above: Performed By: #### C MADM, BNP, BMP #### [facility] [address] [address] [address] Risa Patterson Basophils/100 WBC (Bld) 0.8 % Normal 0.2-2.0 [facility] Comment on above: Performed By: #### C MADM, BNP, BMP #### [facility] [address] [address] [address] Risa Patterson EO # 0.3 103/ul Normal 0.0-0.7 [facility] Comment on above: Performed By: #### C MADM, BNP, BMP #### [facility] [address] [address] [address] Risa Patterson Eosinophils/100 WBC (Bld) 4.0 % Normal 0.9-7.0 [facility] Comment on above: Performed By: #### C MADM, BNP, BMP #### [facility] [address] [place] [address] Dr. Risa Patterson Erythrocyte distribution width (RBC) [Ratio] 15.8 % Critically high 11.0-15.0 [facility] Comment on above: Performed By: #### C MADM, BNP, BMP #### [facility] [address] [place] [address] Dr. Risa Patterson Hematocrit (Bld) [Volume fraction] 37.3 % Critically low 42.0-54.0 [facility] Comment on above: Performed By: #### C MADM, BNP, BMP #### [facility] [address] [place] [address] Dr. Risa Patterson Hemoglobin (Bld) [Mass/Vol] 11.7 g/dL Critically low 14.0-18.0 [facility] Comment on above: Performed By: #### C MADM, BNP, BMP #### [facility] [address] [place] [address] Dr. Risa Patterson IG # 0.04 10e3/ul Critically high 0.00-0.03 [facility] Comment on above: Performed By: #### C MADM, BNP, BMP #### [facility] [address] [place] [address] Dr. Risa Patterson IG % 0.5 % Normal 0.0-0.5 [facility] Comment on above: Performed By: #### C MADM, BNP, BMP #### [facility] [address] [place] [address] Dr. Risa Patterson LYMPH # 1.0 103/ul Critically low 1.2-3.8 [facility] Comment on above: Performed By: #### C MADM, BNP, BMP #### [facility] [address] [place] [address] Dr. Risa Patterson Lymphocytes/100 WBC (Bld) 13.1 % Critically low 20.5-60.0 [facility] Comment on above: Performed By: #### C MADM, BNP, BMP #### [facility] [address] [place] [address] Dr. Risa Patterson MANUAL DIFF REQ NO Normal [facility] Comment on above: Performed By: #### C MADM, BNP, BMP #### [facility] [address] [place] [address] Dr. Risa Patterson MCH (RBC) [Entitic mass] 31.3 pg Normal 25.9-34.0 [facility] Comment on above: Performed By: #### C MADM, BNP, BMP #### [facility] [address] [place] [address] Dr. Risa Patterson MCHC (RBC) [Mass/Vol] 31.4 g/dL Normal 29.9-35.2 [facility] Comment on above: Performed By: #### C MADM, BNP, BMP #### [facility] [address] [place] [address] Dr. Risa Patterson MCV (RBC) [Entitic vol] 99.7 fL Critically high 80.0-94.0 [facility] Comment on above: Performed By: #### C MADM, BNP, BMP #### [facility] [address] [place] [address] Dr. Risa Patterson MONO # 0.9 103/ul Critically high 0.3-0.8 [facility] Comment on above: Performed By: #### C MADM, BNP, BMP #### [facility] [address] [place] [address] Dr. Risa Patterson Monocytes/100 WBC (Bld) 12.3 % Critically high 1.7-12.0 [facility] Comment on above: Performed By: #### C MADM, BNP, BMP #### [facility] [address] [place] [address] Dr. Risa Patterson NEUT # 5.2 103/ul Normal 1.4-6.5 [facility] Comment on above: Performed By: #### C MADM, BNP, BMP #### [facility] [address] [place] [address] Dr. Risa Patterson Neutrophils/100 WBC (Bld) 69.3 % Normal 43.0-75.0 [facility] Comment on above: Performed By: #### C MADM, BNP, BMP #### [facility] [address] [place] [address] Dr. Risa Patterson Platelet mean volume (Bld) [Entitic vol] 9.3 fL Critically low 9.5-13.5 [facility] Comment on above: Performed By: #### C MADM, BNP, BMP #### [facility] [address] [address] [address] Risa Patterson PLT 244 103/ul Normal 150-450 [facility] Comment on above: Performed By: #### C MADM, BNP, BMP #### [facility] [address] [place] [address] Dr. Risa Patterson RBC 3.74 106/ul Critically low 4.70-6.10 [facility] Comment on above: Performed By: #### C MADM, BNP, BMP #### [facility] [address] [place] [address] Dr. Risa Patterson WBC 7.5 103/ul Normal 4.0-11.0 [facility] Comment on above: Performed By: #### C MADM, BNP, BMP #### [facility] [address] [place] [address] Dr. Risa Patterson ECHOCARDIO M/2D COMPLETEon 0 07-04-2022 ECHOCARDIO M/2D COMPLETE Patient: ELENA FELIX Exam Date: 07/04/2022 : 1960 Gender:M Ordering : NIKKIE TREJO Admission #: [id number] Family : DR BRAD HODGES M.D. Order #: [id number] CLICK HERE TO VIEW EXAM ECHOCARDIOGRAM REPORT [...] Hernandez M.D. on 07/04/2022 at 12:06 Normal [facility] PROF 14(COMP METB)on 023 Albumin [Mass/Vol] 2.9 g/dL Critically low 3.4-5.0 [facility] Comment on above: Performed By: #### C MP #### [facility] [address] [place] [address] Dr. Risa Patterson Albumin/Globulin [Mass ratio] 0.8 {ratio} Normal [facility] Comment on above: Performed By: #### C MP #### [facility] [address] [place] [address] Dr. Risa Patterson ALP [Catalytic activity/Vol] 62 U/L Normal 46-116 [facility] Comment on above: Performed By: #### C MP #### [facility] [address] [place] [address] Dr. Risa Patterson ALT [Catalytic activity/Vol] 30 U/L Normal 16-63 [facility] Comment on above: Performed By: #### C MP #### [facility] [address] [place] [address] Dr. Risa Patterson Anion gap [Moles/Vol] 9.3 mmol/L Normal [facility] Comment on above: Performed By: #### C MP #### [facility] [address] [place] [address] Dr. Risa Patterson AST [Catalytic activity/Vol] 25 U/L Normal 15-37 [facility] Comment on above: Performed By: #### C MP #### [facility] [address] [address] [address] Risa Patterson Bilirubin [Mass/Vol] 0.4 mg/dL Normal 0.2-1.0 [facility] Comment on above: Performed By: #### C MP #### [facility] [address] [place] [address] Dr. Risa Patterson Calcium [Mass/Vol] 8.8 mg/dL Normal 8.5-10.1 [facility] Comment on above: Performed By: #### C MP #### [facility] [address] [place] [address] Dr. Risa Patterson Chloride [Moles/Vol] 108 mmol/L Critically high 98-107 [facility] Comment on above: Performed By: #### C MP #### [facility] [address] [place] [address] Dr. Risa Patterson CO2 [Moles/Vol] 29.8 mmol/L Normal 21.0-32.0 [facility] Comment on above: Performed By: #### C MP #### [facility] [address] [place] [address] Dr. Risa Patterson Creatinine [Mass/Vol] 1.26 mg/dL Normal 0.70-1.30 [facility] Comment on above: Performed By: #### C MP #### [facility] [address] [place] [address] Dr. Risa Patterson EGFR-AF ZAMBIAN >60 Normal >=60 [facility] Comment on above: Performed By: #### C MP #### [facility] [address] [place] [address] Dr. Risa Patterson EGFR-NON AF ZAMBIAN 58 mL/min/1.73m2 Critically low >=60 [facility] Comment on above: Performed By: #### C MP #### [facility] [address] [address] [address] Risa Patterson Globulin (S) [Mass/Vol] 3.6 g/dL Normal [facility] Comment on above: Performed By: #### C MP #### [facility] [address] [address] [address] Risa Patterson Glucose [Mass/Vol] 114 mg/dL Critically high 74-106 T [facility] Comment on above: Performed By: #### C MP #### [facility] [address] [address] [address] Risa Patterson Potassium [Moles/Vol] 4.1 mmol/L Normal 3.5-5.1 [facility] Comment on above: Performed By: #### C MP #### [facility] [address] [address] [address] Risa Patterson Protein [Mass/Vol] 6.5 g/dL Normal 6.4-8.2 [facility] Comment on above: Performed By: #### C MP #### [facility] [address] [address] [address] Risa Patterson Sodium [Moles/Vol] 143 mmol/L Normal 136-145 [facility] Comment on above: Performed By: #### C MP #### [facility] [address] [address] [address] Risa Patterson Urea nitrogen [Mass/Vol] 20.0 mg/dL Critically high 7.0-18.0 [facility] Comment on above: Performed By: #### C MP #### [facility] [address] [address] [address] Risa Patterson Urea nitrogen/Creatinine [Mass ratio] 15.9 mg/mg Normal [facility] Comment on above: Performed By: #### C MP #### [facility] [address] [address] [address] [facility]isa [facility] 26 mm/hr Critically high <=20 [facility] Comment on above: Performed By: #### C MADM, BNP, BMP #### [facility] [address] [place] [address] Dr. Risa Patterson BNPon 06-26-2022 Natriuretic peptide B (Bld) [Mass/Vol] 82.0 pg/mL Normal <=900.0 [facility] Comment on above: Performed By: #### C MREP #### [facility] [address] [place] [address] Dr. Risa Patterson CBC AUTO DIFFon 06-26-2022 BASO # 0.1 103/ul Normal 0.0-0.1 [facility] Comment on above: Performed By: #### C MREP #### [facility] [address] [place] [address] Dr. Risa Patterson Basophils/100 WBC (Bld) 0.7 % Normal 0.2-2.0 [facility] Comment on above: Performed By: #### C MREP #### [facility] [address] [place] [address] Dr. Risa Patterson EO # 0.4 103/ul Normal 0.0-0.7 [facility] Comment on above: Performed By: #### C MREP #### [facility] [address] [place] [address] Dr. Risa Patterson Eosinophils/100 WBC (Bld) 3.9 % Normal 0.9-7.0 [facility] Comment on above: Performed By: #### C MREP #### [facility] [address] [place] [address] Dr. Risa Patterson Erythrocyte distribution width (RBC) [Ratio] 15.0 % Normal 11.0-15.0 [facility] Comment on above: Performed By: #### C MREP #### [facility] [address] [place] [address] Dr. Risa Patterson Hematocrit (Bld) [Volume fraction] 39.1 % Critically low 42.0-54.0 [facility] Comment on above: Performed By: #### C MREP #### [facility] [address] [place] [address] Dr. Risa Patterson Hemoglobin (Bld) [Mass/Vol] 12.3 g/dL Critically low 14.0-18.0 [facility] Comment on above: Performed By: #### C MREP #### [facility] [address] [address] [address] Risa Patterson IG # 0.07 10e3/ul Critically high 0.00-0.03 [facility] Comment on above: Performed By: #### C MREP #### [facility] [address] [address] [address] Risa Patterson IG % 0.8 % Critically high 0.0-0.5 [facility] Comment on above: Performed By: #### C MREP #### [facility] [address] [place] [address] Dr. Risa Patterson LYMPH # 1.0 103/ul Critically low 1.2-3.8 [facility] Comment on above: Performed By: #### C MREP #### [facility] [address] [place] [address] Dr. Risa Patterson Lymphocytes/100 WBC (Bld) 11.3 % Critically low 20.5-60.0 [facility] Comment on above: Performed By: #### C MREP #### [facility] [address] [place] [address] Dr. Risa Patterson MANUAL DIFF REQ NO Normal [facility] Comment on above: Performed By: #### C MREP #### [facility] [address] [address] [address] Risa Patterson MCH (RBC) [Entitic mass] 30.9 pg Normal 25.9-34.0 [facility] Comment on above: Performed By: #### C MREP #### [facility] [address] [address] [address] Risa Patterson MCHC (RBC) [Mass/Vol] 31.5 g/dL Normal 29.9-35.2 [facility] Comment on above: Performed By: #### C MREP #### [facility] [address] [address] [address] Risa Patterson MCV (RBC) [Entitic vol] 98.2 fL Critically high 80.0-94.0 [facility] Comment on above: Performed By: #### C MREP #### [facility] [address] [place] [address] Dr. Risa Patterson MONO # 1.1 103/ul Critically high 0.3-0.8 [facility] Comment on above: Performed By: #### C MREP #### [facility] [address] [place] [address] Dr. Risa Patterson Monocytes/100 WBC (Bld) 12.1 % Critically high 1.7-12.0 [facility] Comment on above: Performed By: #### C MREP #### [facility] [address] [place] [address] Dr. Risa Patterson NEUT # 6.4 103/ul Normal 1.4-6.5 [facility] Comment on above: Performed By: #### C MREP #### [facility] [address] [place] [address] Dr. Risa Patterson Neutrophils/100 WBC (Bld) 71.2 % Normal 43.0-75.0 [facility] Comment on above: Performed By: #### C MREP #### [facility] [address] [place] [address] Dr. Risa Patterson Platelet mean volume (Bld) [Entitic vol] 9.2 fL Critically low 9.5-13.5 [facility] Comment on above: Performed By: #### C MREP #### [facility] [address] [place] [address] Dr. Risa Patterson PLT 285 103/ul Normal 150-450 [facility] Comment on above: Performed By: #### C MREP #### [facility] [address] [place] [address] Dr. Risa Patterson RBC 3.98 106/ul Critically low 4.70-6.10 [facility] Comment on above: Performed By: #### C MREP #### [facility] [address] [place] [address] Dr. Risa Patterson WBC 9.0 103/ul Normal 4.0-11.0 [facility] Comment on above: Performed By: #### C MREP #### [facility] [address] [address] [address] Risa Patterson Orders Onlyon 06-26-2022 Orders Only [id number] Miguel Felix Shola 1960 M Date Provider Department Center 06/26/2022 RashaadMELQUIADES ZURITA [facility] Family History Problem Relation Age of Onset No Known Problems Mother No Known Problems Father Family Status - Relation Status Age at Mother Father Normal [facility] PROF CHEM 8 (BAS METB)on Anion gap [Moles/Vol] 12.3 mmol/L Normal [facility] Comment on above: Performed By: #### C MREP #### [facility] [address] [address] [address] Risa Patterson Calcium [Mass/Vol] 9.3 mg/dL Normal 8.5-10.1 [facility] Comment on above: Performed By: #### C MREP #### [facility] [address] [address] [address] Risa Patterson Chloride [Moles/Vol] 106 mmol/L Normal 98-107 [facility] Comment on above: Performed By: #### C MREP #### [facility] [address] [address] [address] Risa Patterson CO2 [Moles/Vol] 29.2 mmol/L Normal 21.0-32.0 [facility] Comment on above: Performed By: #### C MREP #### [facility] [address] [address] [address] Risa Patterson Creatinine [Mass/Vol] 1.40 mg/dL Critically high 0.70-1.30 [facility] Comment on above: Performed By: #### C MREP #### [facility] [address] [address] [address] Risa Patterson EGFR-AF ZAMBIAN >60 Normal >=60 [facility] Comment on above: Performed By: #### C MREP #### [facility] [address] [address] [address] Risa Patterson EGFR-NON AF ZAMBIAN 52 mL/min/1.73m2 Critically low >=60 [facility] Comment on above: Performed By: #### C MREP #### [facility] [address] [address] [address] Risa Patterson Glucose [Mass/Vol] 107 mg/dL Critically high 74-106 [facility] Comment on above: Performed By: #### C MREP #### [facility] [address] [address] [address] Risa Patterson Potassium [Moles/Vol] 4.5 mmol/L Normal 3.5-5.1 [facility] Comment on above: Performed By: #### C MREP #### [facility] [address] [address] [address] Risa Patterson Sodium [Moles/Vol] 143 mmol/L Normal 136-145 [facility] Comment on above: Performed By: #### C MREP #### [facility] [address] [address] [address] Risa Patterson Urea nitrogen [Mass/Vol] 20.0 mg/dL Critically high 7.0-18.0 [facility] Comment on above: Performed By: #### C MREP #### [facility] [address] [address] [address] Risa Patterson Urea nitrogen/Creatinine [Mass ratio] 14.3 mg/mg Normal [facility] Comment on above: Performed By: #### C MREP #### [facility] [address] [address] [address] Risa Patterson Office Visiton 05-31-2022 Follow-up visit [id number] Miguel Felix 1960 M Date Provider Department Center 05/31/2022 Roshni8-NIKKIE TREJO [facility] Family History Problem Relation Age of Onset No Known Problems Mother No Known Problems Father Family Status - Relation Status Age at Mother Father Level of Service:48011 MO OFFICE/OUTPATIENT ESTABLISHED MOD MDM 30-39 MIN Reason for Visit and Comments: Congestive Heart Failure [127] Hyperlipidemia [182] DVT [Other] Normal [facility] Screenson 05-02-2022 Screens [id number] [facility] Ambulatory Visit Summaryon 0 05-01-2022 Ambulatory Visit Summary ELENA FELIX :1960 Visit Date:05/01/2022 Ambulatory Visit Instructions Your Diagnosis BPH with urinary obstruction Chronic prostatitis Epididymal cyst Other obstructive and reflux uropathy Tests Performed Urnls Dip Stick Auto w/o Microscopy POC 49346 Your Care Team Attending Physician - ARABELLA MUNIZ, Jerrod Moya Primary Care Physician - TAMIKA MUNIZ, SILVANA This Is Your Medications List tamsulosin (tamsulosin [...] Follow-Up Appointments Sunday 8:15 AM EST With: Jerrod BELL MD Where: [facility] Sandip Normal [facility] Patient Educationon 05-01-19 23 Patient Education Urology [...] Follow these instructions at home: ? Take [id number] and prescription medicines only as told by [...] You d (more content not included)... Normal [facility] Urology Office/Clinic Noteon 05-01-2022 Urology Office/Clinic Note [...] Follow-up With When Contact Information ARABELLA MUNIZ, VERENICE Denny In 1 year [facility] [address] [place] [address]- [phone] Additional Instructions: Patient Education Benign Prostatic Hyperplasia IMery, personally scribed for Dr. Bell on 05/01/2022 10:51:33. . Documentation recorded by the Mery franklin, accurately reflects the services(s) I performed and [...] 3 refills (more content not included)... Normal [facility] Comment on above: Result Comment: Elec tronically Signed By: Jerrod BELL MD\\.br\\Date and Time Signed: 05/01/22 10:54 EST\\.br\\Electronically Co-Signed By: Mery [email or web address]\\Date and Time Co-Signed: 05/01/22 10:[address] CHEST HI RESOLUTIONon CT CHEST HI RESOLUTION EXAMINATION: CT CHEST HI RESOLUTION HISTORY: Dyspnea on exertion ; [...] ASHER SOLANO Date: 2022-04-25 11:06 Normal [facility] HEMOGLOBINon 04-10-2022 Hemoglobin (Bld) [Mass/Vol] 11.9 g/dL Critically low 14.0-18.0 [facility] Comment on above: Performed By: #### C MADM, BNP, BMP #### [facility] [address] [place] [address] Dr. Risa Patterson CBC AUTO DIFFon 04-03-2022 BASO # 0.0 103/ul Normal 0.0-0.1 [facility] Comment on above: Performed By: #### C MADM, BNP, BMP #### [facility] [address] [place] [address] Dr. Risa Patterson Basophils/100 WBC (Bld) 0.5 % Normal 0.2-2.0 [facility] Comment on above: Performed By: #### C MADM, BNP, BMP #### [facility] [address] [place] [address] Dr. Risa Patterson EO # 0.3 103/ul Normal 0.0-0.7 [facility] Comment on above: Performed By: #### C MADM, BNP, BMP #### [facility] [address] [place] [address] Dr. Risa Patterson Eosinophils/100 WBC (Bld) 5.3 % Normal 0.9-7.0 [facility] Comment on above: Performed By: #### C MADM, BNP, BMP #### [facility] [address] [place] [address] Dr. Risa Patterson Erythrocyte distribution width (RBC) [Ratio] 16.3 % Critically high 11.0-15.0 [facility] Comment on above: Performed By: #### C MADM, BNP, BMP #### [facility] [address] [place] [address] Dr. Risa Patterson Hematocrit (Bld) [Volume fraction] 38.4 % Critically low 42.0-54.0 [facility] Comment on above: Performed By: #### C MADM, BNP, BMP #### [facility] [address] [place] [address] Dr. Risa Patterson Hemoglobin (Bld) [Mass/Vol] 12.0 g/dL Critically low 14.0-18.0 [facility] Comment on above: Performed By: #### C MADM, BNP, BMP #### [facility] [address] [place] [address] Dr. Risa Patterson IG # 0.04 10e3/ul Critically high 0.00-0.03 [facility] Comment on above: Performed By: #### C MADM, BNP, BMP #### [facility] [address] [place] [address] Dr. Risa Patterson IG % 0.7 % Critically high 0.0-0.5 [facility] Comment on above: Performed By: #### C MADM, BNP, BMP #### [facility] [address] [place] [address] Dr. Risa Patterson LYMPH # 1.1 103/ul Critically low 1.2-3.8 [facility] Comment on above: Performed By: #### C MADM, BNP, BMP #### [facility] [address] [place] [address] Dr. Risa Patterson Lymphocytes/100 WBC (Bld) 18.7 % Critically low 20.5-60.0 [facility] Comment on above: Performed By: #### C MADM, BNP, BMP #### [facility] [address] [place] [address] Dr. Risa Patterson MANUAL DIFF REQ NO Normal [facility] Comment on above: Performed By: #### C MADM, BNP, BMP #### [facility] [address] [place] [address] Dr. Risa Patterson MCH (RBC) [Entitic mass] 31.3 pg Normal 25.9-34.0 [facility] Comment on above: Performed By: #### C MADM, BNP, BMP #### [facility] [address] [place] [address] Dr. Risa Patterson MCHC (RBC) [Mass/Vol] 31.3 g/dL Normal 29.9-35.2 [facility] Comment on above: Performed By: #### C MADM, BNP, BMP #### [facility] [address] [place] [address] Dr. Risa Patterson MCV (RBC) [Entitic vol] 100.0 fL Critically high 80.0-94.0 [facility] Comment on above: Performed By: #### C MADM, BNP, BMP #### [facility] [address] [place] [address] Dr. Risa Patterson MONO # 0.8 103/ul Normal 0.3-0.8 [facility] Comment on above: Performed By: #### C MADM, BNP, BMP #### [facility] [address] [place] [address] Dr. Risa Patterson Monocytes/100 WBC (Bld) 13.7 % Critically high 1.7-12.0 [facility] Comment on above: Performed By: #### C MADM, BNP, BMP #### [facility] [address] [place] [address] Dr. Risa Patterson NEUT # 3.7 103/ul Normal 1.4-6.5 [facility] Comment on above: Performed By: #### C MADM, BNP, BMP #### [facility] [address] [place] [address] Dr. Risa Patterson Neutrophils/100 WBC (Bld) 61.1 % Normal 43.0-75.0 [facility] Comment on above: Performed By: #### C MADM, BNP, BMP #### [facility] [address] [place] [address] Dr. Risa Patterson Platelet mean volume (Bld) [Entitic vol] 9.5 fL Normal 9.5-13.5 [facility] Comment on above: Performed By: #### C MADM, BNP, BMP #### [facility] [address] [place] [address] Dr. Risa Patterson PLT 218 103/ul Normal 150-450 [facility] Comment on above: Performed By: #### C MADM, BNP, BMP #### [facility] [address] [place] [address] Dr. Risa Patterson RBC 3.84 106/ul Critically low 4.70-6.10 [facility] Comment on above: Performed By: #### C MADM, BNP, BMP #### [facility] [address] [place] [address] Dr. Risa Patterson WBC 6.0 103/ul Normal 4.0-11.0 [facility] Comment on above: Performed By: #### C MADM, BNP, BMP #### [facility] [address] [place] [address] Dr. Risa Patterson PROF 14(COMP METB)on 022 Albumin [Mass/Vol] 2.9 g/dL Critically low 3.4-5.0 [facility] Comment on above: Performed By: #### C MADM, BNP, BMP #### [facility] [address] [place] [address] Dr. Risa Patterson Albumin/Globulin [Mass ratio] 0.7 {ratio} Normal [facility] Comment on above: Performed By: #### C MADM, BNP, BMP #### [facility] [address] [place] [address] Dr. Risa Patterson ALP [Catalytic activity/Vol] 66 U/L Normal 46-116 [facility] Comment on above: Performed By: #### C MADM, BNP, BMP #### [facility] [address] [address] [address] Risa Patterson ALT [Catalytic activity/Vol] 33 U/L Normal 16-63 [facility] Comment on above: Performed By: #### C MADM, BNP, BMP #### [facility] [address] [place] [address] Dr. Risa Patterson Anion gap [Moles/Vol] 10.7 mmol/L Normal [facility] Comment on above: Performed By: #### C MADM, BNP, BMP #### [facility] [address] [place] [address] Dr. Risa Patterson AST [Catalytic activity/Vol] 24 U/L Normal 15-37 [facility] Comment on above: Performed By: #### C MADM, BNP, BMP #### [facility] [address] [place] [address] Dr. Risa Patterson Bilirubin [Mass/Vol] 0.3 mg/dL Normal 0.2-1.0 [facility] Comment on above: Performed By: #### C MADM, BNP, BMP #### [facility] [address] [place] [address] Dr. Risa Patterson Calcium [Mass/Vol] 9.0 mg/dL Normal 8.5-10.1 [facility] Comment on above: Performed By: #### C MADM, BNP, BMP #### [facility] [address] [place] [address] Dr. Risa Patterson Chloride [Moles/Vol] 106 mmol/L Normal 98-107 [facility] Comment on above: Performed By: #### C MADM, BNP, BMP #### [facility] [address] [place] [address] Dr. Risa Patterson CO2 [Moles/Vol] 31.7 mmol/L Normal 21.0-32.0 [facility] Comment on above: Performed By: #### C MADM, BNP, BMP #### [facility] [address] [place] [address] Dr. Risa Patterson Creatinine [Mass/Vol] 1.18 mg/dL Normal 0.70-1.30 [facility] Comment on above: Performed By: #### C MADM, BNP, BMP #### [facility] [address] [address] [address] Risa Patterson EGFR-AF ZAMBIAN >60 Normal >=60 [facility] Comment on above: Performed By: #### C MADM, BNP, BMP #### [facility] [address] [address] [address] Risa Patterson EGFR-NON AF ZAMBIAN >60 Normal >=60 [facility] Comment on above: Performed By: #### C MADM, BNP, BMP #### [facility] [address] [place] [address] Dr. Risa Patterson Globulin (S) [Mass/Vol] 3.9 g/dL Normal [facility] Comment on above: Performed By: #### C MADM, BNP, BMP #### [facility] [address] [place] [address] Dr. Risa Patterson Glucose [Mass/Vol] 99 mg/dL Normal 74-106 [facility] Comment on above: Performed By: #### C MADM, BNP, BMP #### [facility] [address] [place] [address] Dr. Risa Patterson Potassium [Moles/Vol] 4.4 mmol/L Normal 3.5-5.1 [facility] Comment on above: Performed By: #### C MADM, BNP, BMP #### [facility] [address] [place] [address] Dr. Risa Patterson Protein [Mass/Vol] 6.8 g/dL Normal 6.4-8.2 [facility] Comment on above: Performed By: #### C MADM, BNP, BMP #### [facility] [address] [place] [address] Dr. Risa Patterson Sodium [Moles/Vol] 144 mmol/L Normal 136-145 [facility] Comment on above: Performed By: #### C MADM, BNP, BMP #### [facility] [address] [place] [address] Dr. Risa Patterson Urea nitrogen [Mass/Vol] 17.0 mg/dL Normal 7.0-18.0 [facility] Comment on above: Performed By: #### C MADM, BNP, BMP #### [facility] [address] [address] [address] Risa Patterson Urea nitrogen/Creatinine [Mass ratio] 14.4 mg/mg Normal [facility] Comment on above: Performed By: #### C MADM, BNP, BMP #### [facility] [address] [place] [address] Dr. Risa Patterson SED RATE WESTERGRENon 2021 SED RATE 66 mm/hr Critically high <=20 [facility] Comment on above: Performed By: #### C MADM, BNP, BMP #### [facility] [address] [place] [address] Dr. Risa Patterson CBC AUTO DIFFon 01-02-2022 BASO # 0.1 103/ul Normal 0.0-0.1 [facility] Comment on above: Performed By: #### C MADM, BNP, BMP #### [facility] [address] [address] [address] Risa Patterson Basophils/100 WBC (Bld) 1.1 % Normal 0.2-2.0 [facility] Comment on above: Performed By: #### C MADM, BNP, BMP #### [facility] [address] [place] [address] Dr. Risa Patterson EO # 0.3 103/ul Normal 0.0-0.7 [facility] Comment on above: Performed By: #### C MADM, BNP, BMP #### [facility] [address] [place] [address] Dr. Risa Patterson Eosinophils/100 WBC (Bld) 7.1 % Critically high 0.9-7.0 [facility] Comment on above: Performed By: #### C MADM, BNP, BMP #### [facility] [address] [address] [address] Risa Patterson Erythrocyte distribution width (RBC) [Ratio] 17.2 % Critically high 11.0-15.0 [facility] Comment on above: Performed By: #### C MADM, BNP, BMP #### [facility] [address] [place] [address] Dr. Risa Patterson Hematocrit (Bld) [Volume fraction] 34.0 % Critically low 42.0-54.0 [facility] Comment on above: Performed By: #### C MADM, BNP, BMP #### [facility] [address] [place] [address] Dr. Risa Patterson Hemoglobin (Bld) [Mass/Vol] 10.6 g/dL Critically low 14.0-18.0 [facility] Comment on above: Performed By: #### C MADM, BNP, BMP #### [facility] [address] [place] [address] Dr. Risa Patterson IG # 0.02 10e3/ul Normal 0.00-0.03 [facility] Comment on above: Performed By: #### C MADM, BNP, BMP #### [facility] [address] [place] [address] Dr. Risa Patterson IG % 0.4 % Normal 0.0-0.5 [facility] Comment on above: Performed By: #### C MADM, BNP, BMP #### [facility] [address] [place] [address] Dr. Risa Patterson LYMPH # 1.0 103/ul Critically low 1.2-3.8 [facility] Comment on above: Performed By: #### C MADM, BNP, BMP #### [facility] [address] [place] [address] Dr. Risa Patterson Lymphocytes/100 WBC (Bld) 22.9 % Normal 20.5-60.0 [facility] Comment on above: Performed By: #### C MADM, BNP, BMP #### [facility] [address] [place] [address] Dr. Risa Patterson MANUAL DIFF REQ NO Normal [facility] Comment on above: Performed By: #### C MADM, BNP, BMP #### [facility] [address] [place] [address] Dr. Risa Patterson MCH (RBC) [Entitic mass] 31.2 pg Normal 25.9-34.0 [facility] Comment on above: Performed By: #### C MADM, BNP, BMP #### [facility] [address] [place] [address] Dr. Risa Patterson MCHC (RBC) [Mass/Vol] 31.2 g/dL Normal 29.9-35.2 [facility] Comment on above: Performed By: #### C MADM, BNP, BMP #### [facility] [address] [place] [address] Dr. Risa Patterson MCV (RBC) [Entitic vol] 100.0 fL Critically high 80.0-94.0 [facility] Comment on above: Performed By: #### C MADM, BNP, BMP #### [facility] [address] [place] [address] Dr. Risa Patterson MONO # 0.8 103/ul Normal 0.3-0.8 [facility] Comment on above: Performed By: #### C MADM, BNP, BMP #### [facility] [address] [place] [address] Dr. Risa Patterson Monocytes/100 WBC (Bld) 18.7 % Critically high 1.7-12.0 [facility] Comment on above: Performed By: #### C MADM, BNP, BMP #### [facility] [address] [place] [address] Dr. Risa Patterson NEUT # 2.2 103/ul Normal 1.4-6.5 [facility] Comment on above: Performed By: #### C MADM, BNP, BMP #### [facility] [address] [place] [address] Dr. Risa Patterson Neutrophils/100 WBC (Bld) 49.8 % Normal 43.0-75.0 [facility] Comment on above: Performed By: #### C MADM, BNP, BMP #### [facility] [address] [place] [address] Dr. Risa Patterson Platelet mean volume (Bld) [Entitic vol] 10.0 fL Normal 9.5-13.5 [facility] Comment on above: Performed By: #### C MADM, BNP, BMP #### [facility] [address] [place] [address] Dr. Rsia Patterson PLT 232 103/ul Normal 150-450 [facility] Comment on above: Performed By: #### C MADM, BNP, BMP #### [facility] [address] [place] [address] Dr. Risa Patterson RBC 3.40 106/ul Critically low 4.70-6.10 [facility] Comment on above: Performed By: #### C MADM, BNP, BMP #### [facility] [address] [place] [address] Dr. Risa Patterson WBC 4.5 103/ul Normal 4.0-11.0 [facility] Comment on above: Performed By: #### C MADM, BNP, BMP #### [facility] [address] [place] [address] Dr. Risa Patterson PROF 14(COMP METB)on 022 Albumin [Mass/Vol] 2.8 g/dL Critically low 3.4-5.0 [facility] Comment on above: Performed By: #### C MREP #### [facility] [address] [place] [address] Dr. Risa Patterson Albumin/Globulin [Mass ratio] 0.8 {ratio} Normal [facility] Comment on above: Performed By: #### C MREP #### [facility] [address] [place] [address] Dr. Risa Patterson ALP [Catalytic activity/Vol] 63 U/L Normal 46-116 [facility] Comment on above: Performed By: #### C MREP #### [facility] [address] [place] [address] Dr. Risa Patterson ALT [Catalytic activity/Vol] 29 U/L Normal 16-63 [facility] Comment on above: Performed By: #### C MREP #### [facility] [address] [place] [address] Dr. Risa Patterson Anion gap [Moles/Vol] 10.7 mmol/L Normal [facility] Comment on above: Performed By: #### C MREP #### [facility] [address] [place] [address] Dr. Risa Patterson AST [Catalytic activity/Vol] 23 U/L Normal 15-37 [facility] Comment on above: Performed By: #### C MREP #### [facility] [address] [place] [address] Dr. Risa Patterson Bilirubin [Mass/Vol] 0.2 mg/dL Normal 0.2-1.0 [facility] Comment on above: Performed By: #### C MREP #### [facility] [address] [place] [address] Dr. Risa Patterson Calcium [Mass/Vol] 8.5 mg/dL Normal 8.5-10.1 [facility] Comment on above: Performed By: #### C MREP #### [facility] [address] [place] [address] Dr. Risa Patterson Chloride [Moles/Vol] 109 mmol/L Critically high 98-107 [facility] Comment on above: Performed By: #### C MREP #### [facility] [address] [place] [address] Dr. Risa Patterson CO2 [Moles/Vol] 28.7 mmol/L Normal 21.0-32.0 [facility] Comment on above: Performed By: #### C MREP #### [facility] [address] [place] [address] Dr. Risa Patterson Creatinine [Mass/Vol] 1.05 mg/dL Normal 0.70-1.30 [facility] Comment on above: Performed By: #### C MREP #### [facility] [address] [place] [address] Dr. Risa Patterson EGFR-AF ZAMBIAN >60 Normal >=60 [facility] Comment on above: Performed By: #### C MREP #### [facility] [address] [place] [address] Dr. Risa Patterson EGFR-NON AF ZAMBIAN >60 Normal >=60 [facility] Comment on above: Performed By: #### C MREP #### [facility] [address] [address] [address] Risa Patterson Globulin (S) [Mass/Vol] 3.5 g/dL Normal [facility] Comment on above: Performed By: #### C MREP #### [facility] [address] [address] [address] Risa Patterson Glucose [Mass/Vol] 82 mg/dL Normal 74-106 [facility] Comment on above: Performed By: #### C MREP #### [facility] [address] [address] [address] Risa Patterson Potassium [Moles/Vol] 4.5 mmol/L Normal 3.5-5.1 [facility] Comment on above: Performed By: #### C MREP #### [facility] [address] [place] [address] Dr. Risa Patterson Protein [Mass/Vol] 6.3 g/dL Critically low 6.4-8.2 [facility] Comment on above: Performed By: #### C MREP #### [facility] [address] [place] [address] Dr. Risa Patterson Sodium [Moles/Vol] 144 mmol/L Normal 136-145 [facility] Comment on above: Performed By: #### C MREP #### [facility] [address] [place] [address] Dr. Risa Patterson Urea nitrogen [Mass/Vol] 16.0 mg/dL Normal 7.0-18.0 [facility] Comment on above: Performed By: #### C MREP #### [facility] [address] [address] [address] Risa Patterson Urea nitrogen/Creatinine [Mass ratio] 15.2 mg/mg Normal [facility] Comment on above: Performed By: #### C MREP #### [facility] [address] [place] [address] Dr. Risa Patterson SED RATE formerly [facility] 2021 SED RATE 42 mm/hr Critically high <=20 [facility] Comment on above: Performed By: #### C MADM, BNP, BMP #### [facility] [address] [address] [address] Risa Patterson CBC W Auto Differential pane l (Bld)on 12-28-2021 Abs Immature Gran <0.10 k/uL [facility] Basophils (Bld) [#/Vol] 0.04 10*3/uL <0.11 k/uL [facility] Basophils/100 WBC (Bld) 0.7 % [facility] Differential cell count method Nom (Bld) Auto [facility] Eosinophils (Bld) [#/Vol] 0.30 10*3/uL <0.46 k/uL [facility] Eosinophils/100 WBC (Bld) 5.5 % [facility] Erythrocyte distribution width (RBC) [Ratio] 18.1 % High 11.5 - 15.0 % [facility] Hematocrit (Bld) [Volume fraction] 34.6 % Low 39.0 - 51.0 % [facility] Hemoglobin (Bld) [Mass/Vol] 10.9 g/dL Low 13.0 - 17.0 g/dL [facility] Immature Gran % 0.4 % [facility] Lymphocytes (Bld) [#/Vol] 0.95 10*3/uL Low 1.00 - 4.00 k/uL [facility] Lymphocytes/100 WBC (Bld) 17.4 % [facility] MCH (RBC) [Entitic mass] 31.3 pg 26.0 - 34.0 pg [facility] MCHC (RBC) [Mass/Vol] 31.5 g/dL 30.5 - 36.0 g/dL [facility] MCV (RBC) [Entitic vol] 99.4 fL 80.0 - 100.0 fL [facility] Monocytes (Bld) [#/Vol] 0.69 10*3/uL <0.87 k/uL [facility] Monocytes/100 WBC (Bld) 12.7 % [facility] Neutrophils (Bld) [#/Vol] 3.45 10*3/uL 1.45 - 7.50 k/uL [facility] Neutrophils/100 WBC (Bld) 63.3 % [facility] Nucleated RBC (Bld) [#/Vol] <0.01 k/uL [facility] Nucleated RBC/100 WBC (Bld) [Ratio] 0.0 /100 WBC [facility] Platelet mean volume (Bld) [Entitic vol] 10.0 fL 9.0 - 12.7 fL [facility] Platelets (Bld) [#/Vol] 230 10*3/uL 150 - 400 k/uL [facility] RBC (Bld) [#/Vol] 3.48 10*6/uL Low 4.20 - 6.0 0 m/uL [facility] WBC (Bld) [#/Vol] 5.45 10*3/uL 3.70 - 11.00 k/uL [facility] Comprehensive metabolic 2000 panelon 12-28-2021 Albumin [Mass/Vol] 3.5 g/dL Low 3.9 - 4.9 g/dL [facility] ALP [Catalytic activity/Vol] 69 U/L 38 - 113 U/L [facility] ALT [Catalytic activity/Vol] 23 U/L 10 - 54 U/L [facility] Anion gap [Moles/Vol] 6 mmol/L Low 9 - 18 mmol/L [facility] AST [Catalytic activity/Vol] 27 U/L 14 - 40 U/L [facility] Bilirubin [Mass/Vol] 0.4 mg/dL 0.2 - 1 .3 mg/dL [facility] Calcium [Mass/Vol] 9.2 mg/dL 8.5 - 10. 2 mg/dL [facility] Chloride [Moles/Vol] 110 mmol/L High 97 - 10 5 mmol/L [facility] CO2 [Moles/Vol] 27 mmol/L 22 - 30 mmol/L [facility] Creatinine [Mass/Vol] 1.05 mg/dL 0.73 - 1.22 mg/dL [facility] Estimated Glomerular Filtration Rate 81 mL/min/1.73m >=60 mL/min/1.73 m [facility] Glucose [Mass/Vol] 109 mg/dL High 74 - 99 mg/dL [facility] Potassium [Moles/Vol] 3.9 mmol/L 3.7 - 5.1 mmol/L [facility] Protein [Mass/Vol] 6.0 g/dL Low 6.3 - 8.0 g/dL [facility] Sodium [Moles/Vol] 143 mmol/L 136 - 144 mmol/L [facility] Urea nitrogen [Mass/Vol] 17 mg/dL 9 - 24 mg/dL [facility] LD LACTATE DEHYDROon 022 LDH [Catalytic activity/Vol] 270 U/L High 135 - 225 U/L [facility] CBC AUTO DIFFon 12-15-2021 BASO # 0.0 103/ul Normal 0.0-0.1 [facility] Comment on above: Performed By: #### C BC #### [facility] [address] [address] [address] Risa Patterson Basophils/100 WBC (Bld) 0.7 % Normal 0.2-2.0 [facility] Comment on above: Performed By: #### C BC #### [facility] [address] [place] [address] Dr. Risa Patterson EO # 0.2 103/ul Normal 0.0-0.7 [facility] Comment on above: Performed By: #### C BC #### [facility] [address] [place] [address] Dr. Risa Patterson Eosinophils/100 WBC (Bld) 3.6 % Normal 0.9-7.0 [facility] Comment on above: Performed By: #### C BC #### [facility] [address] [place] [address] Dr. Risa Patterson Erythrocyte distribution width (RBC) [Ratio] 17.4 % Critically high 11.0-15.0 [facility] Comment on above: Performed By: #### C BC #### [facility] [address] [place] [address] Dr. Risa Patterson Hematocrit (Bld) [Volume fraction] 36.2 % Critically low 42.0-54.0 [facility] Comment on above: Performed By: #### C BC #### [facility] [address] [place] [address] Dr. Risa Patterson Hemoglobin (Bld) [Mass/Vol] 11.3 g/dL Critically low 14.0-18.0 [facility] Comment on above: Performed By: #### C BC #### [facility] [address] [place] [address] Dr. Risa Patterson IG # 0.02 10e3/ul Normal 0.00-0.03 [facility] Comment on above: Performed By: #### C BC #### [facility] [address] [place] [address] Dr. Risa Patterson IG % 0.5 % Normal 0.0-0.5 [facility] Comment on above: Performed By: #### C BC #### [facility] [address] [place] [address] Dr. Risa Patterson LYMPH # 0.9 103/ul Critically low 1.2-3.8 [facility] Comment on above: Performed By: #### C BC #### [facility] [address] [place] [address] Dr. Risa Patterson Lymphocytes/100 WBC (Bld) 20.0 % Critically low 20.5-60.0 [facility] Comment on above: Performed By: #### C BC #### [facility] [address] [place] [address] Dr. Risa Patterson MANUAL DIFF REQ NO Normal [facility] Comment on above: Performed By: #### C BC #### [facility] [address] [place] [address] Dr. Risa Patterson MCH (RBC) [Entitic mass] 30.9 pg Normal 25.9-34.0 [facility] Comment on above: Performed By: #### C BC #### [facility] [address] [place] [address] Dr. Risa Patterson MCHC (RBC) [Mass/Vol] 31.2 g/dL Normal 29.9-35.2 [facility] Comment on above: Performed By: #### C BC #### [facility] [address] [place] [address] Dr. Risa Patterson MCV (RBC) [Entitic vol] 98.9 fL Critically high 80.0-94.0 [facility] Comment on above: Performed By: #### C BC #### [facility] [address] [place] [address] Dr. Risa Patterson MONO # 0.2 103/ul Critically low 0.3-0.8 [facility] Comment on above: Performed By: #### C BC #### [facility] [address] [place] [address] Dr. Risa Patterson Monocytes/100 WBC (Bld) 5.4 % Normal 1.7-12.0 [facility] Comment on above: Performed By: #### C BC #### [facility] [address] [place] [address] Dr. Risa Patterson NEUT # 3.1 103/ul Normal 1.4-6.5 [facility] Comment on above: Performed By: #### C BC #### [facility] [address] [place] [address] Dr. Risa Patterson Neutrophils/100 WBC (Bld) 69.8 % Normal 43.0-75.0 [facility] Comment on above: Performed By: #### C BC #### [facility] [address] [place] [address] Dr. Risa Patterson Platelet mean volume (Bld) [Entitic vol] 9.7 fL Normal 9.5-13.5 [facility] Comment on above: Performed By: #### C BC #### [facility] [address] [place] [address] Dr. Risa Patterson PLT 235 103/ul Normal 150-450 [facility] Comment on above: Performed By: #### C BC #### [facility] [address] [place] [address] Dr. Risa Patterson RBC 3.66 106/ul Critically low 4.70-6.10 [facility] Comment on above: Performed By: #### C BC #### [facility] [address] [place] [address] Dr. Risa Patterson WBC 4.4 103/ul Normal 4.0-11.0 [facility] Comment on above: Performed By: #### C BC #### [facility] [address] [place] [address] Dr. Risa Ptaterson FERRITINon 12-15-2021 Ferritin [Mass/Vol] 285.0 ng/mL Normal 26.0-388.0 [facility] Comment on above: Performed By: #### F ERR, VITB12 #### [facility] [address] [place] [address] Dr. Risa Patterson VITAMIN B12on 12-15-2021 Cobalamin (Vitamin B12) [Mass/Vol] 460.0 pg/mL Normal 193.0-986.0 [facility] Comment on above: Performed By: #### F ERR, VITB12 #### [facility] [address] [place] [address] Dr. Risa Patterson CBC AUTO DIFFon 11-29-2021 BASO # 0.0 103/ul Normal 0.0-0.1 [facility] Comment on above: Performed By: #### C MREP #### [facility] [address] [place] [address] Dr. Risa Patterson Basophils/100 WBC (Bld) 0.7 % Normal 0.2-2.0 [facility] Comment on above: Performed By: #### C MREP #### [facility] [address] [place] [address] Dr. Risa Patterson EO # 0.3 103/ul Normal 0.0-0.7 [facility] Comment on above: Performed By: #### C MREP #### [facility] [address] [place] [address] Dr. Risa Patterson Eosinophils/100 WBC (Bld) 6.9 % Normal 0.9-7.0 [facility] Comment on above: Performed By: #### C MREP #### [facility] [address] [place] [address] Dr. Risa Patterson Erythrocyte distribution width (RBC) [Ratio] 17.0 % Critically high 11.0-15.0 [facility] Comment on above: Performed By: #### C MREP #### [facility] [address] [place] [address] Dr. Risa Patterson Hematocrit (Bld) [Volume fraction] 35.4 % Critically low 42.0-54.0 [facility] Comment on above: Performed By: #### C MREP #### [facility] [address] [address] [address] Risa Patterson Hemoglobin (Bld) [Mass/Vol] 11.0 g/dL Critically low 14.0-18.0 [facility] Comment on above: Performed By: #### C MREP #### [facility] [address] [address] [address] Risa Patterson IG # 0.01 10e3/ul Normal 0.00-0.03 [facility] Comment on above: Performed By: #### C MREP #### [facility] [address] [place] [address] Dr. Risa Patterson IG % 0.2 % Normal 0.0-0.5 [facility] Comment on above: Performed By: #### C MREP #### [facility] [address] [place] [address] Dr. Risa Patterson LYMPH # 0.9 103/ul Critically low 1.2-3.8 [facility] Comment on above: Performed By: #### C MREP #### [facility] [address] [place] [address] Dr. Risa Patterson Lymphocytes/100 WBC (Bld) 19.5 % Critically low 20.5-60.0 [facility] Comment on above: Performed By: #### C MREP #### [facility] [address] [place] [address] Dr. Risa Patterson MANUAL DIFF REQ NO Normal [facility] Comment on above: Performed By: #### C MREP #### [facility] [address] [place] [address] Dr. Risa Patterson MCH (RBC) [Entitic mass] 30.5 pg Normal 25.9-34.0 [facility] Comment on above: Performed By: #### C MREP #### [facility] [address] [place] [address] Dr. Risa Patterson MCHC (RBC) [Mass/Vol] 31.1 g/dL Normal 29.9-35.2 [facility] Comment on above: Performed By: #### C MREP #### [facility] [address] [address] [address] Risa Patterson MCV (RBC) [Entitic vol] 98.1 fL Critically high 80.0-94.0 [facility] Comment on above: Performed By: #### C MREP #### [facility] [address] [place] [address] Dr. Risa Patterson MONO # 0.6 103/ul Normal 0.3-0.8 [facility] Comment on above: Performed By: #### C MREP #### [facility] [address] [place] [address] Dr. Risa Patterson Monocytes/100 WBC (Bld) 14.0 % Critically high 1.7-12.0 [facility] Comment on above: Performed By: #### C MREP #### [facility] [address] [place] [address] Dr. Risa Patterson NEUT # 2.6 103/ul Normal 1.4-6.5 [facility] Comment on above: Performed By: #### C MREP #### [facility] [address] [place] [address] Dr. Risa Patterson Neutrophils/100 WBC (Bld) 58.7 % Normal 43.0-75.0 [facility] Comment on above: Performed By: #### C MREP #### [facility] [address] [place] [address] Dr. Risa Patterson Platelet mean volume (Bld) [Entitic vol] 9.9 fL Normal 9.5-13.5 [facility] Comment on above: Performed By: #### C MREP #### [facility] [address] [place] [address] Dr. Risa Patterson PLT 200 103/ul Normal 150-450 [facility] Comment on above: Performed By: #### C MREP #### [facility] [address] [place] [address] Dr. Risa Patterson RBC 3.61 106/ul Critically low 4.70-6.10 [facility] Comment on above: Performed By: #### C MREP #### [facility] [address] [place], [place] [id number] Dr. Risa Patterson WBC 4.4 103/ul Normal 4.0-11.0 [facility] Comment on above: Performed By: #### C MREP #### [facility] [address] [place] [address] Dr. Risa Patterson PROF CHEM 8 (BAS METB)on Anion gap [Moles/Vol] 12.3 mmol/L Normal Th [facility] Comment on above: Performed By: #### C MADM, BNP, BMP #### [facility] [address] [place] [address] Dr. Risa Patterson Calcium [Mass/Vol] 8.9 mg/dL Normal 8.5-10.1 [facility] Comment on above: Performed By: #### C MADM, BNP, BMP #### [facility] [address] [place] [address] Dr. Risa Patterson Chloride [Moles/Vol] 109 mmol/L Critically high 98-107 [facility] Comment on above: Performed By: #### C MADM, BNP, BMP #### [facility] [address] [place] [address] Dr. Risa Patterson CO2 [Moles/Vol] 27.1 mmol/L Normal 21.0-32.0 [facility] Comment on above: Performed By: #### C MADM, BNP, BMP #### [facility] [address] [place] [address] Dr. Risa Patterson Creatinine [Mass/Vol] 1.04 mg/dL Normal 0.70-1.30 [facility] Comment on above: Performed By: #### C MADM, BNP, BMP #### [facility] [address] [place] [address] Dr. Risa Patterson EGFR-AF ZAMBIAN >60 Normal >=60 [facility] Comment on above: Performed By: #### C MADM, BNP, BMP #### [facility] [address] [place] [address] Dr. Risa Patterson EGFR-NON AF ZAMBIAN >60 Normal >=60 [facility] Comment on above: Performed By: #### C MADM, BNP, BMP #### [facility] [address] [place] [address] Dr. Risa Patterson Glucose [Mass/Vol] 112 mg/dL Critically high 74-106 T [facility] Comment on above: Performed By: #### C MADM, BNP, BMP #### [facility] [address] [place] [address] Dr. Risa Patterson Potassium [Moles/Vol] 4.4 mmol/L Normal 3.5-5.1 [facility] Comment on above: Performed By: #### C MADM, BNP, BMP #### [facility] [address] [place] [address] Dr. Risa Patterson Sodium [Moles/Vol] 144 mmol/L Normal 136-145 [facility] Comment on above: Performed By: #### C MADM, BNP, BMP #### [facility] [address] [place] [address] Dr. Risa Patterson Urea nitrogen [Mass/Vol] 19.0 mg/dL Critically high 7.0-18.0 [facility] Comment on above: Performed By: #### C MADM, BNP, BMP #### [facility] [address] [place] [address] Dr. Risa Patterson Urea nitrogen/Creatinine [Mass ratio] 18.3 mg/mg Normal [facility] Comment on above: Performed By: #### C MADM, BNP, BMP #### [facility] [address] [place] [address] Dr. Risa Patterson TSHon 11-29-2021 TSH 1.618 uIU/mL Normal 0.358-3.740 [facility] Comment on above: Performed By: #### C MADM, BNP, BMP #### [facility] [address] [place] [address] Dr. Risa Patterson ECHOCARDIO M/2D COMPLETEon 0 10-04-2021 ECHOCARDIO M/2D COMPLETE Patient: ELENA FELIX Exam Date: 10/04/2021 : 1960 Gender:M Ordering : NIKKIE TREJO Admission #: [id number] Family : DR SILVANA LUNDBERG M.D. Order #: [id number] CLICK HERE TO VIEW EXAM ECHOCARDIOGRAM REPORT [...] Area(A4C): 20.40 cm2 Left Atrium Systolic Volume(A2C): 42218 mm3 Left Atrium Systolic Volume(A4C): 47408 mm3 Mitral Valve MV E to A [...] Leung M.D. on 10/04/2021 at 19:44 Normal [facility] PROF CHEM 8 (BAS METB)on Anion gap [Moles/Vol] 12.3 mmol/L Normal Th [facility] Comment on above: Performed By: #### C MADM, BNP, BMP #### [facility] [address] [place] [address] Dr. Risa Patterson Calcium [Mass/Vol] 9.3 mg/dL Normal 8.5-10.1 [facility] Comment on above: Performed By: #### C MADM, BNP, BMP #### [facility] [address] [place] [address] Dr. Risa Patterson Chloride [Moles/Vol] 105 mmol/L Normal 98-107 [facility] Comment on above: Performed By: #### C MADM, BNP, BMP #### [facility] [address] [place] [address] Dr. Risa Patterson CO2 [Moles/Vol] 28.2 mmol/L Normal 21.0-32.0 [facility] Comment on above: Performed By: #### C MADM, BNP, BMP #### [facility] [address] [place] [address] Dr. Risa Patterson Creatinine [Mass/Vol] 1.54 mg/dL Critically high 0.70-1.30 [facility] Comment on above: Performed By: #### C MADM, BNP, BMP #### [facility] [address] [address] [address] Risa Patterson EGFR-AF ZAMBIAN 56 mL/min/1.73m2 Critically low >=60 [facility] Comment on above: Performed By: #### C MADM, BNP, BMP #### [facility] [address] [address] [address] Risa Patterson EGFR-NON AF ZAMBIAN 46 mL/min/1.73m2 Critically low >=60 [facility] Comment on above: Performed By: #### C MADM, BNP, BMP #### [facility] [address] [place] [address] Dr. Risa Patterson Glucose [Mass/Vol] 86 mg/dL Normal 74-106 [facility] Comment on above: Performed By: #### C MADM, BNP, BMP #### [facility] [address] [place] [address] Dr. Risa Patterson Potassium [Moles/Vol] 4.5 mmol/L Normal 3.5-5.1 [facility] Comment on above: Performed By: #### C MADM, BNP, BMP #### [facility] [address] [place] [address] Dr. Risa Patterson Sodium [Moles/Vol] 141 mmol/L Normal 136-145 [facility] Comment on above: Performed By: #### C MADM, BNP, BMP #### [facility] [address] [place] [address] Dr. Risa Patterson Urea nitrogen [Mass/Vol] 18.0 mg/dL Normal 7.0-18.0 [facility] Comment on above: Performed By: #### C MADM, BNP, BMP #### [facility] [address] [address] [address] Risa aPtterson Urea nitrogen/Creatinine [Mass ratio] 11.7 mg/mg Normal [facility] Comment on above: Performed By: #### C MADM, BNP, BMP #### [facility] [address] [place] [address] Dr. Risa Patterson BNPon 09-20-2021 Natriuretic peptide B (Bld) [Mass/Vol] 186.0 pg/mL Normal <=900.0 [facility] Comment on above: Performed By: #### C MADM, BNP, BMP #### [facility] [address] [place] [address] Dr. Risa Patterson CARDIAC ALICIA 3-6on 2 CK [Catalytic activity/Vol] 133 U/L Normal 39-308 [facility] Comment on above: Performed By: #### C MREP #### [facility] [address] [place] [address] Dr. Risa Patterson CK.MB [Mass/Vol] 1.54 ng/mL Normal <=3.60 [facility] Comment on above: Performed By: #### C MREP #### [facility] [address] [place] [address] Dr. Risa Patterson HSTROP 11.9 pg/mL Normal 4.0-76.1 [facility] Comment on above: Result Comment: CUT- OFF POINTS HAVE BEEN ESTABLISHED BASED ON THE FOURTH UNIVERSAL DEFINITIONS OF MYOCARDIAL INFARCTION. THE UPPER REFERENCE LIMIT (URL) OF TROPONIN, DEFINED THE 99TH PERCENTILE OF cTnI DISTRIBUTION IN A REFERENCE POPULATION, HAS BEEN CONFIRMED THE DECISION THRESHOLD FOR [place] DIAGNOSIS. Performed By: #### C MREP #### [facility] [address] [place] [address] Dr. Risa Patterson CARDIAC ALICIA ADMITon 022 CK [Catalytic activity/Vol] 136 U/L Normal 39-308 [facility] Comment on above: Performed By: #### C MADM, BNP, BMP #### [facility] [address] [place] [address] Dr. Risa Patterson CK.MB [Mass/Vol] 1.37 ng/mL Normal <=3.60 [facility] Comment on above: Performed By: #### C MADM, BNP, BMP #### [facility] [address] [place] [address] Dr. Risa Patterson HSTROP 12.1 pg/mL Normal 4.0-76.1 [facility] Comment on above: Result Comment: CUT- OFF POINTS HAVE BEEN ESTABLISHED BASED ON THE FOURTH UNIVERSAL DEFINITIONS OF MYOCARDIAL INFARCTION. THE UPPER REFERENCE LIMIT (URL) OF TROPONIN, DEFINED THE 99TH PERCENTILE OF cTnI DISTRIBUTION IN A REFERENCE POPULATION, HAS BEEN CONFIRMED THE DECISION THRESHOLD FOR [place] DIAGNOSIS. Performed By: #### C MADM, BNP, BMP #### [facility] [address] [place] [address] Dr. Risa Patterson DUC 129 ng/mL Critically high 16-96 [facility] Comment on above: Performed By: #### C MADM, BNP, BMP #### [facility] [address] [place] [address] Dr. Risa Patterson CBC AUTO DIFFon 09-20-2021 BASO # 0.1 103/ul Normal 0.0-0.1 [facility] Comment on above: Performed By: #### C MREP #### [facility] [address] [place] [address] Dr. Risa Patterson Basophils/100 WBC (Bld) 0.8 % Normal 0.2-2.0 [facility] Comment on above: Performed By: #### C MREP #### [facility] [address] [place] [address] Dr. Risa Patterson EO # 0.5 103/ul Normal 0.0-0.7 [facility] Comment on above: Performed By: #### C MREP #### [facility] [address] [place] [address] Dr. Risa Patterson Eosinophils/100 WBC (Bld) 5.1 % Normal 0.9-7.0 [facility] Comment on above: Performed By: #### C MREP #### [facility] [address] [place] [address] Dr. Risa Patterson Erythrocyte distribution width (RBC) [Ratio] 14.5 % Normal 11.0-15.0 [facility] Comment on above: Performed By: #### C MREP #### [facility] [address] [place] [address] Dr. Risa Patterson Hematocrit (Bld) [Volume fraction] 40.7 % Critically low 42.0-54.0 [facility] Comment on above: Performed By: #### C MREP #### [facility] [address] [place] [address] Dr. Risa Patterson Hemoglobin (Bld) [Mass/Vol] 12.8 g/dL Critically low 14.0-18.0 [facility] Comment on above: Performed By: #### C MREP #### [facility] [address] [place] [address] Dr. Risa Patterson IG # 0.05 10e3/ul Critically high 0.00-0.03 [facility] Comment on above: Performed By: #### C MREP #### [facility] [address] [place] [address] Dr. Risa Patterson IG % 0.5 % Normal 0.0-0.5 [facility] Comment on above: Performed By: #### C MREP #### [facility] [address] [place] [address] Dr. Risa Patterson LYMPH # 1.7 103/ul Normal 1.2-3.8 [facility] Comment on above: Performed By: #### C MREP #### [facility] [address] [place] [address] Dr. Risa Patterson Lymphocytes/100 WBC (Bld) 15.8 % Critically low 20.5-60.0 [facility] Comment on above: Performed By: #### C MREP #### [facility] [address] [place] [address] Dr. Risa Patterson MANUAL DIFF REQ NO Normal [facility] Comment on above: Performed By: #### C MREP #### [facility] [address] [place] [address] Dr. Risa Patterson MCH (RBC) [Entitic mass] 30.3 pg Normal 25.9-34.0 [facility] Comment on above: Performed By: #### C MREP #### [facility] [address] [place] [address] Dr. Risa Patterson MCHC (RBC) [Mass/Vol] 31.4 g/dL Normal 29.9-35.2 [facility] Comment on above: Performed By: #### C MREP #### [facility] [address] [place] [address] Dr. Risa Patterson MCV (RBC) [Entitic vol] 96.4 fL Critically high 80.0-94.0 [facility] Comment on above: Performed By: #### C MREP #### [facility] [address] [place] [address] Dr. Risa Patterson MONO # 1.1 103/ul Critically high 0.3-0.8 [facility] Comment on above: Performed By: #### C MREP #### [facility] [address] [place] [address] Dr. Risa Patterson Monocytes/100 WBC (Bld) 10.7 % Normal 1.7-12.0 [facility] Comment on above: Performed By: #### C MREP #### [facility] [address] [place] [address] Dr. Risa Patterson NEUT # 7.1 103/ul Critically high 1.4-6.5 [facility] Comment on above: Performed By: #### C MREP #### [facility] [address] [place] [address] Dr. Risa Patterson Neutrophils/100 WBC (Bld) 67.1 % Normal 43.0-75.0 [facility] Comment on above: Performed By: #### C MREP #### [facility] [address] [place] [address] Dr. Risa Patterson Platelet mean volume (Bld) [Entitic vol] 9.5 fL Normal 9.5-13.5 [facility] Comment on above: Performed By: #### C MREP #### [facility] [address] [place] [address] Dr. Risa Patterson PLT 317 103/ul Normal 150-450 [facility] Comment on above: Performed By: #### C MREP #### [facility] [address] [place] [address] Dr. Risa Patterson RBC 4.22 106/ul Critically low 4.70-6.10 [facility] Comment on above: Performed By: #### C MREP #### [facility] [address] [address] [address] Risa Patterson WBC 10.6 103/ul Normal 4.0-11.0 [facility] Comment on above: Performed By: #### C MREP #### [facility] [address] [address] [address] Risa Patterson CTA CHEST WO W CONon 022 CTA CHEST WO W CON EXAMINATION: [...] MAJOR REA Date: 2021-09-20 08:07 Normal [facility] Covid-19 PCR (CVDTB)on 08-23 SARS-CoV-2 (COVID-19) RNA SAMMY+probe Ql (Unsp spec) Not detected Normal NOT DETECTED [facility] Comment on above: Result Comment: When [...] for this test is supported by the Aircraft Part Assembler of Health and Human Service's declaration that [...] By: #### C MADM, BNP, BMP #### [facility] [address] [place] [address] Dr. Risa Patterson INFLUENZA A AND B AGon 09-20 [facility] SEE BELOW Normal [facility] Comment on above: Result Comment: Nega tive for Flu A protein angiten. Infection due to Flu A cannot be ruled out. Flu A angiten in the sample may be below the detection limit of the test. Performed By: #### C MREP #### [facility] [address] [place] [address] Dr. Risa Patterson INFLUBNEGH SEE BELOW Normal [facility] Comment on above: Result Comment: Nega tive for Flu B protein antigen. Infection due to Flu B cannot be ruled out. Flu B antigen in the sample may be below the detection limit of the test. Performed By: #### C MREP #### [facility] [address] [place] [address] Dr. Risa Patterson INFLUENZA A AG Negative Normal NEGATIVE SEE COMMENT [facility] Comment on above: Performed By: #### C MREP #### [facility] [address] [place] [address] Dr. Risa Patterson INFLUENZA B AG Negative Normal NEGATIVE SEE COMMENT [facility] Comment on above: Performed By: #### C MREP #### [facility] [address] [place] [address] Dr. Risa Patterson INTERNAL CONTROLS Within Normal Limits Normal Wi thin Normal Limits [facility] Comment on above: Performed By: #### C MREP #### [facility] [address] [place] [address] Dr. Risa Patterson PROF CHEM 8 (BAS METB)on Anion gap [Moles/Vol] 15.5 mmol/L Normal [facility] Comment on above: Performed By: #### C MADM, BNP, BMP #### [facility] [address] [place] [address] Dr. Risa Patterson Calcium [Mass/Vol] 9.0 mg/dL Normal 8.5-10.1 [facility] Comment on above: Performed By: #### C MADM, BNP, BMP #### [facility] [address] [place] [address] Dr. Risa Patterson Chloride [Moles/Vol] 104 mmol/L Normal 98-107 [facility] Comment on above: Performed By: #### C MADM, BNP, BMP #### [facility] [address] [place] [address] Dr. Risa Patterson CO2 [Moles/Vol] 25.2 mmol/L Normal 21.0-32.0 [facility] Comment on above: Performed By: #### C MADM, BNP, BMP #### [facility] [address] [place] [address] Dr. Risa Patterson Creatinine [Mass/Vol] 1.27 mg/dL Normal 0.70-1.30 [facility] Comment on above: Performed By: #### C MADM, BNP, BMP #### [facility] [address] [place] [address] Dr. Risa Patterson EGFR-AF ZAMBIAN >60 Normal >=60 [facility] Comment on above: Performed By: #### C MADM, BNP, BMP #### [facility] [address] [place] [address] Dr. Risa Patterson EGFR-NON AF ZAMBIAN 58 mL/min/1.73m2 Critically low >=60 [facility] Comment on above: Performed By: #### C MADM, BNP, BMP #### [facility] [address] [place] [address] Dr. Risa Patterson Glucose [Mass/Vol] 138 mg/dL Critically high 74-106 [facility] Comment on above: Performed By: #### C MADM, BNP, BMP #### [facility] [address] [place] [address] Dr. Risa Patterson Potassium [Moles/Vol] 3.7 mmol/L Normal 3.5-5.1 [facility] Comment on above: Performed By: #### C MADM, BNP, BMP #### [facility] [address] [place] [address] Dr. Risa Patterson Sodium [Moles/Vol] 141 mmol/L Normal 136-145 [facility] Comment on above: Performed By: #### C MADM, BNP, BMP #### [facility] [address] [place] [address] Dr. Risa Patterson Urea nitrogen [Mass/Vol] 19.0 mg/dL Critically high 7.0-18.0 [facility] Comment on above: Performed By: #### C MADM, BNP, BMP #### [facility] [address] [place] [address] Dr. Risa Patterson Urea nitrogen/Creatinine [Mass ratio] 15.0 mg/mg Normal [facility] Comment on above: Performed By: #### C MADM, BNP, BMP #### [facility] [address] [place] [address] Dr. Risa Patterson XR CHEST 1 Von [...] by: ANGELES NASSAR Date: 2021-09-20 06:53 Normal [facility] ASHLEY DOP LEG LTon 09-15-19 US ASHLEY [...] Findings called to ordering provider by the drywall metal stud worker at time of imaging. Electronically authenticated by: ASHER SOLANO Date: 2021-09-14 14:25 Normal [facility] Cardiovascular Lab Reporton 06-25-2021 Cardiovascular Lab Report [facility] Patient Name: Elena Felix [facility] MR #: [id number] Physician: Nikkie Department of MD [facility] Service Date: 06/23/2021 Division of Birthdate: 1960 Cardiology Room #: CC [facility] [place] [address] Cardiovascular Laboratory Report Procedures: 1. Right heart [...] Trejo MD Date Trans: 06/25/2021 03:01 P/ [id number] cc: Renato Lundberg M.D. [address] [place] [address] [address] [facility] [address] Normal [facility] Vital Signs Date Time Vital Sign Value Performing Clinician Facility 02-05-2023 12:48-0400 Body weight 129.73 kg Austin Clark MD Work Phone: [facility] 11-17-2022 10:05-0400 Diastolic blood pressure 74 mm[Hg] Tricia Howard MD Work Phone: [facility] 11-17-2022 10:05-0400 Heart rate 62 /min Tricia Howard MD Work Phone: [facility] 11-17-2022 10:05-0400 Systolic blood pressure 107 mm[Hg] Tricia Howard MD Work Phone: [facility] 11-17-2022 09:58-0400 Body weight 132 kg Tricia Howard MD Work Phone: [facility] 11-17-2022 09:58-0400 SaO2% (BldA) [Mass fraction] 97 % Tricia Howard MD Work Phone: [facility] 10-31-2022 11:00-0400 Body height 185.42 cm Silvana Lundberg Other [facility] Other 10-31-2022 11:00-0400 Body mass index (BMI) [Ratio] 39.58 kg/m2 Silvana Lundberg Other [facility] Other 10-31-2022 11:00-0400 Body temperature 97.9 [degF] Silvana Lundberg Other [facility] Other 10-31-2022 11:00-0400 Body weight 136.08 kg Silvana Lundberg Other [facility] Other 10-31-2022 11:00-0400 Diastolic blood pressure 49 mm[Hg] Silvana Lundberg Other [facility] Other 10-31-2022 11:00-0400 Systolic blood pressure 91 mm[Hg] Silvana Lundberg Other [facility] Other 10-16-2022 14:45-0400 Body height 185.42 cm Silvana Lundberg Other [facility] Other 10-16-2022 14:45-0400 Body mass index (BMI) [Ratio] 38.39 kg/m2 Silvana Lundberg Other [facility] Other 10-16-2022 14:45-0400 Body weight 132 kg Silvana Lundberg Other [facility] Other 10-16-2022 14:45-0400 Diastolic blood pressure 62 mm[Hg] Silvana Lundberg Other [facility] Other 10-16-2022 14:45-0400 Systolic blood pressure 89 mm[Hg] Silvana Lundberg Other [facility] Other 10-06-2022 08:23-0400 Body height 188 cm Anna North SUPPORT SPECIALIST.CONSULTING APPLICATION ENGINEER Work Phone: [facility] 10-06-2022 08:23-0400 Body weight 131.54 kg Anna North APRN.CONSULTING APPLICATION ENGINEER Work Phone: [facility] 10-06-2022 08:23-0400 Diastolic blood pressure 59 mm[Hg] Anna North APRN.CONSULTING APPLICATION ENGINEER Work Phone: [facility] 10-06-2022 08:23-0400 Heart rate 83 /min Anna North APRN.CONSULTING APPLICATION ENGINEER Work Phone: [facility] 10-06-2022 08:23-0400 SaO2% (BldA) [Mass fraction] 95 % Anna North APRN.CONSULTING APPLICATION ENGINEER Work Phone: [facility] 10-06-2022 08:23-0400 Systolic blood pressure 106 mm[Hg] Anna North SUPPORT SPECIALIST.CONSULTING APPLICATION ENGINEER Work Phone: [facility] 08-16-2022 08:14-0400 Diastolic blood pressure 78 mm[Hg] Tricia Howard MD Work Phone: [facility] 08-16-2022 08:14-0400 Systolic blood pressure 114 mm[Hg] Tricia Howard MD Work Phone: [facility] 08-16-2022 08:10-0400 Body height 188 cm Tricia Howard MD Work Phone: [facility] 08-16-2022 08:10-0400 Body weight 132.36 kg Tricia Howard MD Work Phone: [facility] 08-16-2022 08:10-0400 Heart rate 89 /min Tricia Howard MD Work Phone: [facility] 08-16-2022 08:10-0400 SaO2% (BldA) [Mass fraction] 96 % Tricia Howard MD Work Phone: [facility] 05-08-2022 10:00-0500 Body height 185.42 cm Silvana Lundberg Other [facility] Other 05-08-2022 10:00-0500 Body mass index (BMI) [Ratio] 39.71 kg/m2 Silvana Lundberg Other [facility] Other 05-08-2022 10:00-0500 Body weight 136.53 kg Silvana Lundberg Other [facility] Other 05-08-2022 10:00-0500 Diastolic blood pressure 72 mm[Hg] Silvana Lundberg Other [facility] Other 05-08-2022 10:00-0500 SaO2% (BldA) [Mass fraction] 97 % Silvana Lundberg Other [facility] Other 05-08-2022 10:00-0500 Systolic blood pressure 112 mm[Hg] Silvana Lundberg Other [facility] Other 01-18-2022 09:54-0400 Body height 190.5 cm Merly Marti MD Work Phone: [facility] 01-18-2022 09:54-0400 Body temperature 97.3 [degF] Merly Marti MD Work Phone: [facility] 01-18-2022 09:54-0400 Body weight 131.91 kg Merly Marti MD Work Phone: [facility] 01-18-2022 09:54-0400 Diastolic blood pressure 71 mm[Hg] Merly Marti MD Work Phone: [facility] 01-18-2022 09:54-0400 Heart rate 92 /min Merly Marti MD Work Phone: [facility] 01-18-2022 09:54-0400 Respiratory rate 18 /min Merly Marti MD Work Phone: [facility] 01-18-2022 09:54-0400 SaO2% (BldA) [Mass fraction] 97 % Merly Marti MD Work Phone: [facility] 01-18-2022 09:54-0400 Systolic blood pressure 122 mm[Hg] Merly Marti MD Work Phone: [facility] 12-28-2021 14:38-0400 Body height 190.5 cm Merly Marti MD Work Phone: [facility] 12-28-2021 14:38-0400 Body temperature 97.2 [degF] Merly Marti MD Work Phone: [facility] 12-28-2021 14:38-0400 Body weight 135.53 kg Merly Marti MD Work Phone: [facility] 12-28-2021 14:38-0400 Diastolic blood pressure 66 mm[Hg] Merly Marti MD Work Phone: [facility] 12-28-2021 14:38-0400 Heart rate 72 /min Merly Marti MD Work Phone: [facility] 12-28-2021 14:38-0400 Respiratory rate 18 /min Merly Marti MD Work Phone: [facility] 12-28-2021 14:38-0400 SaO2% (BldA) [Mass fraction] 96 % Merly Marti MD Work Phone: [facility] 12-28-2021 14:38-0400 Systolic blood pressure 127 mm[Hg] Merly Marti MD Work Phone: [facility] 09-21-2021 15:35-0400 Body height 190.5 cm Merly Marti MD Work Phone: [facility] 09-21-2021 15:35-0400 Body temperature 97.2 [degF] Merly Marti MD Work Phone: [facility] 09-21-2021 15:35-0400 Body weight 132.63 kg Merly Marti MD Work Phone: [facility] 09-21-2021 15:35-0400 Diastolic blood pressure 73 mm[Hg] Merly Marti MD Work Phone: [facility] 09-21-2021 15:35-0400 Heart rate 91 /min Merly Marti MD Work Phone: [facility] 09-21-2021 15:35-0400 Respiratory rate 16 /min Merly Marti MD Work Phone: [facility] 09-21-2021 15:35-0400 SaO2% (BldA) [Mass fraction] 94 % Merly Marti MD Work Phone: [facility] 09-21-2021 15:35-0400 Systolic blood pressure 122 mm[Hg] Merly Marti MD Work Phone: [facility] Encounters Encounter Date Encounter Type Care Provider Facility Start: 07-16-2023 ambulatory Jerrod Torres ty:TEDDY Oropeza Start: 05-16-2023 End: 05-16-2023 ambulatory SILVANA LUNDBERG Facility:[facility] Start: 05-03-2023 End: 05-03-2023 ambulatory PHYSICIAN NO FAMILY Facility:[facility] Start: 05-03-2023 End: 05-03-2023 ambulatory PHYSICIAN NO [facility] Work Phone: Start: 05-03-2023 End: 05-03-2023 Patient encounter procedure PHYSICIAN NO [facility] [address] Work Phone: Start: 03-29-2023 (Televisit) Televisit Silvana Samson [facility] Start: 03-29-2023 End: 03-29-2023 ambulatory Silvana Lundberg Other [facility] Other Start: 02-19-2023 End: 02-19-2023 ambulatory Silvana Lundberg Other [facility] Other Start: 02-19-2023 Telephone encounter Silvana Lundberg [facility] Start: 02-05-2023 End: 02-05-2023 ambulatory HEBA WASSIF Facility:[facility] Start: 02-05-2023 End: 02-05-2023 Patient encounter procedure Austin Clark MD Work Phone: Cardiology Comment on above: Shortness of breath (Primary Dx); Near syncope Start: 12-27-2022 End: 12-27-2022 ambulatory Silvana Lundberg Other [facility] Other Start: 12-27-2022 Nursing evaluation o f patient and report Silvana Lundberg [facility] Start: 12-11-2022 End: 12-11-2022 ambulatory PHYSICIAN NO FAMILY Facility:[facility] Start: 12-11-2022 End: 12-11-2022 ambulatory PHYSICIAN NO [facility] Work Phone: Start: 12-11-2022 End: 12-11-2022 Patient encounter procedure PHYSICIAN NO [facility] [address] Work Phone: Start: 11-17-2022 End: 11-17-2022 ambulatory HEBA WASSIF Facility:[facility] Start: 11-17-2022 End: 11-17-2022 Patient encounter procedure Heba Wassif MD Work Phone: Cardiology Comment on above: SOB (shortness of br eath) (Primary Dx); Coronary artery disease involving pauma coronary artery of pauma heart without angina pectoris; Palpitations Start: 11-15-2022 End: 11-15-2022 ambulatory MERLY MARTI Facility:[facility] Start: 11-07-2022 End: 11-07-2022 ambulatory Silvana Lundberg Other [facility] Other Start: 11-07-2022 Nursing evaluation o f patient and report Silvana Lundberg [facility] Start: 11-07-2022 Telephone encounter Silvana Lundberg [facility] Start: 11-02-2022 End: 11-02-2022 ambulatory Silvana Lundberg Other [facility] Other Start: 11-02-2022 Telephone encounter Silvana Lundberg [facility] Start: 10-31-2022 Office outpatient vi sit 15 minutes Silvana Lundberg [facility] Start: 10-31-2022 End: 10-31-2022 ambulatory PHYSICIAN NO FAMILY Facility:[facility] Start: 10-31-2022 End: 10-31-2022 ambulatory MD Silvana Lundberg Work Phone: [facility] Work Phone: Start: 10-31-2022 End: 10-31-2022 Departed Referred MD Silvana Lundberg Work Phone: [facility] [address] [place] Work Phone: Start: 10-18-2022 End: 10-18-2022 ambulatory SILVANA LUNDBERG Facility:[facility] Start: 10-17-2022 Orders Only Tricia Howard MD Work Phone: Cardiology Comment on above: Dilated cardiomyopat hy (HCC) (Primary Dx) 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 sites in spine (HCC) (Primary Dx) Results (Abnormal La bs) Start: 10-16-2022 Office outpatient vi sit 25 minutes Silvana Lundberg [facility] Start: 10-16-2022 End: 10-17-2022 ambulatory SILVANA Stefani LUNDBERG Facility:[facility] Start: 10-16-2022 End: 10-16-2022 ambulatory Emg 1000) Work Phone: Neurology Comment on above: EMG Start: 10-16-2022 End: 10-16-2022 Patient encounter procedure Emg 1 Neur Main (Max Weight: 1000) Work Phone: [facility] Start: 10-12-2022 Telephone encounter Anna carrasco SUPPORT SPECIALIST.CONSULTING APPLICATION ENGINEER Work Phone: Neurology Comment on above: Results (Abnormal la bs) Start: 10-06-2022 End: 10-07-2022 ambulatory SILVANA LUNDBERG Facility:[facility] Start: 10-06-2022 End: 10-06-2022 Patient encounter procedure Anna North SUPPORT SPECIALIST.CONSULTING APPLICATION ENGINEER Work Phone: Neurology Comment on above: Disturbance of skin sensation (Primary Dx); Lightheadedness; Change in blood pressure; Orthostatic hypotension; Tremulousness Start: 10-04-2022 End: 10-04-2022 ambulatory HEBA WASSIF Facility:[facility] Start: 10-04-2022 End: 10-04-2022 Subsequent hospital visit by physician [employer] Work Phone: Molecular Imaging Comment on above: Exertional dyspnea [ R06.09] Start: 10-03-2022 ambulatory ALFREDO dunn [facility] Start: 09-13-2022 End: 09-13-2022 Subsequent hospital visit by physician [facility] Echocardiology Testing Comment on above: Exertional dyspnea [ R06.09] Start: 09-06-2022 End: 09-07-[address] DOCTOR NUNES Facility:[facility] Start: 08-29-2022 End: 08-30-2022 ambulatory Emily Anderson MD Work Phone: Cardiology Comment on above: Shortness of Breath Start: 08-29-2022 End: 08-29-2022 Patient encounter procedure Emily Anderson MD Work Phone: [facility] Start: 08-28-2022 Telephone encounter [...] ical Records Start: 08-10-2022 End: 08-10-2022 ambulatory [facility] Start: 07-31-2022 End: 08-01-2022 ambulatory [facility] Start: 07-31-2022 End: 07-31-2022 Subsequent hospital visit by physician [facility] Tilt Table Study Room [facility] Stress Lab Comment on above: Orthostatic hypotens ion; POTS (postural orthostatic tachycardia syndrome) Start: 07-12-2022 End: 07-12-[address] [facility] Start: 07-12-2022 Telephone encounter Tricia samson MD Work Phone: Cardiology Comment on above: Appointment Start: 07-04-2022 End: 07-05-2022 ambulatory NIKKIE TREJO Facility:[facility] Start: 06-26-2022 End: 06-27-2022 ambulatory NIKKIE TREJO Facility:[facility] Start: 06-26-[address] DOCTOR RODAS Facility :[facility] Start: 05-31-2022 End: 05-31-2022 ambulatory NIKKIE [facility] Start: 05-24-[address] DOCTOR NUNES Facility :[facility] Start: 05-08-2022 End: 05-08-2022 ambulatory Silvana Lundberg Other [facility] Other Start: 05-08-2022 Office outpatient vi sit 15 minutes Silvana Lundberg [facility] Start: 05-01-2022 End: 05-02-2022 ambulatory Jerrod BELL Facility:[facility] Start: 05-01-2022 End: 05-01-2022 Patient encounter procedure Jerrod BELL [facility] Start: 04-24-2022 End: 04-25-[address] DOCTOR NUNES Facility:[facility] Start: 04-10-2022 End: 04-11-[address] DOCTOR NUNES Facility:[facility] Start: 04-03-2022 End: 04-04-[address] BRAD HODGES Facility:[facility] Start: 01-18-2022 End: 01-18-2022 ambulatory Merly Marti MD Work Phone: Hematology/Oncology Comment on above: History of DVT (deep vein thrombosis) (Primary Dx) Start: 01-18-2022 End: 01-18-2022 Patient encounter procedure Merly Marti MD Work Phone: [place] Start: 01-02-2022 End: 01-03-[address] DOCTOR [...] encounter procedure Merly Marti MD Work Phone: [place] Start: 12-15-2021 End: 12-16-[address] SILVANA LUNDBERG Facility:[facility] Start: 11-29-2021 End: 11-30-2021 ambulatory CARLOS KRISHNA Facility:[facility] Start: 11-23-2021 End: 11-23-[address] AIDE DELEON Facility:[facility] Start: 10-04-2021 End: 10-05-2021 ambulatory NIKKIE AURORACOLLEENADDIS Facility:[facility] Start: 09-22-2021 ambulatory REXBENEZETTRuss TREJO Faci lity:[facility]1 Start: 09-21-2021 End: 09-21-2021 ambulatory Merly Marti MD Work Phone: Hematology/Oncology Comment on above: Acute deep vein thro mbosis (DVT) of distal end of left lower extremity (HCC) (Primary Dx) Start: 09-21-2021 End: 09-21-2021 Patient encounter procedure Merly Marti MD Work Phone: [place] Start: 09-20-2021 End: 09-20-2021 ambulatory BRYSON ENG Facility:[facility] Start: 09-16-2021 Chart abstracting Merly hernandez MD Work Phone: Hematology/Oncology Start: 09-14-2021 End: 09-15-2021 ambulatory NIKKIE AURORASACHA Facility:[facility] Start: 08-06-2020 End: 08-06-2020 Discharged Recurring Silvana Lundberg Work Phone: [facility] Vaccine Off Site Procedures Date Procedure Procedure Detail Performing Clinician Start: 10-31-2022 Aerobic microbial culture PHYSICIAN NO FAMILY Start: 10-31-2022 Anaerobic microbial culture PHYSICIAN NO FAMILY Start: 10-31-2022 Investigation of tra nsfusion reaction PHYSICIAN NO FAMILY Start: 10-16-2022 Nerve conduction waylon dies 5-6 studies [place] SUPPORT SPECIALIST.CONSULTING APPLICATION ENGINEER Work Phone: Start: 10-04-2022 Pulmonary ventilatio n [...] of tumor polyp lesion snare tq [facility] Start: 01-22-2020 Endoscopy and biopsy of upper gastrointestinal tract [facility] Start: 08-02-2018 Screening for malign ant neoplasm of prostate Silvana Lundberg Other Start: 05-17-2015 Injection of hip usi ng fluoroscopic guidance [facility] Comment on above: Rt. hip in OR-- 100% relief for 10 days Start: 03-08-2015 Injection of hip usi ng fluoroscopic guidance [facility] Comment on above: 100% relief for 4 da ys, slowly started coming back after 5 days back to where level of pain was before injection Start: 10-30-2014 Removal of suture Hue Lundberg Other Start: 10-02-2014 Back structure, excl uding neck (body structure) [facility] Comment on above: L2 to L5, cyst remov al, bone grafting Start: 06-26-2014 Injection of sacroil iac joint using fluoroscopic guidance [facility] Comment on above: Left Start: 04-06-2014 Injection of sacroil iac joint using fluoroscopic guidance [facility] Comment on above: Left SIJI Start: 02-16-2014 Radiofrequency dener vation of spinal facet joint of lumbar vertebra Jerrod BELL Comment on above: Right L2-L5 Start: 02-02-2014 Radiofrequency dener vation of spinal facet joint of lumbar vertebra Jerrod BELL Comment on above: Left L2-L5 Start: 01-23-2014 General examination of patient Silvana Lundberg Other Start: 12-17-2013 Injection of facet j oint using fluoroscopic guidance Jerrod BELL Comment on above: Bilateral L2-L5 Start: 10-20-2013 Injection of facet j oint using fluoroscopic guidance Jerrod BELL Comment on above: Biilateral L2-L5 Start: 04-23-2012 Back structure, excl uding neck (body structure) Jerrodfranky BELL Comment on above: bone grafting right hand surgery 11 Foreign[facility] [facility] Comment on above: 1996 Screening for malign ant neoplasm of prostate Silvana Lundberg Other Viral screening Silvana Lundberg Other Plan of Treatment Date Care Activity Detail Author Start: 05-30-2026 PROSTATE CANCER SCRE ENING DISCUSSION PROSTATE CANCER SCREENING DISCUSSION [facility] Start: 10-16-2025 DIABETES SCREEN DIABETES SCREEN [facility] Start: 10-16-2025 Diabetes Screening Diabetes Screenin g [facility] Start: 10-06-2025 DIABETES SCREEN DIABETES SCREEN [facility] Start: 12-28-2024 DIABETES SCREEN DIABETES SCREEN [facility] Start: 12-22-2022 Covid-19 Vaccine ( season) Covid-19 Vaccine ( season) [facility] Start: 12-22-2022 Influenza vaccination [facility] Start: 12-11-2022 Hepatitis B core ant ibody measurement [facility] Start: 12-11-2022 [facility] Start: 10-31-2022 Aerobic Culture Aerobic Culture [facility] Start: 10-31-2022 Anaerobic Culture Anaerobic Culture [facility] Start: 10-31-2022 Microscopic observat ion [Identifier] in Unspecified specimen by Gram stain Gram Stain [facility] Start: 10-31-2022 [facility] Start: 10-17-2022 End: 12-17-2022 C reactive protein [Mass/volume] in Serum or Plasma C-REACTIVE PROTEIN (CRP) Lab Routine Ankylosing spondylitis of multiple sites in spine ([facility]) Expected: 10/17/2022, Expires: 12/17/2022 [facility] Work Phone: Comment on above: Expected: 10/17/2022 , Expires: 12/17/2022 Start: 10-17-2022 End: 12-17-2022 Erythrocyte sedimentation rate SED RATE WESTERGREN Lab Routine Ankylosing spondylitis of multiple sites in spine ([facility]) Expected: 10/17/2022, Expires: 12/17/2022 [facility] Work Phone: Comment on above: Expected: 10/17/2022 , Expires: 12/17/2022 Start: 10-06-2022 End: 12-06-2022 Alpha tocopherol [Mass/volume] in Serum or Plasma [facility] Work Phone: Comment on above: Expected: 10/06/2022 , Expires: 12/06/2022 Start: 10-06-2022 End: 12-06-[address] [facility] Work Phone: Comment on above: Expected: 10/06/2022 , Expires: 12/06/2022 Start: 10-06-2022 End: 12-06-2022 Hemoglobin A1c in Blood [facility] Work Phone: Comment on above: Expected: 10/06/2022 , Expires: 12/06/2022 Start: 10-06-2022 End: 12-06-2022 IMMUNOFIXATION SCREEN, SERUM [facility] Work Phone: Comment on above: Expected: 10/06/2022 , Expires: 12/06/2022 Start: 10-06-2022 End: 12-06-2022 KAPPA/KEANE,FREE,SER [facility] Work Phone: Comment on above: Expected: 10/06/2022 , Expires: 12/06/2022 Start: 10-06-2022 End: 12-06-2022 Pyridoxine [Mass/volume] in Serum or Plasma [facility] Work Phone: Comment on above: Expected: 10/06/2022 , Expires: 12/06/2022 Start: 10-06-2022 End: 12-06-2022 VITAMIN B1 (THIAMINE), WHOLE BLOOD [facility] Work Phone: Comment on above: Expected: 10/06/2022 , Expires: 12/06/2022 Start: 10-06-2022 End: 12-06-2022 Zinc [Mass/volume] in Serum or Plasma [facility] Work Phone: Comment on above: Expected: 10/06/2022 , Expires: 12/06/2022 Start: 07-25-2022 Annual Wellness Visi t (AWV) Annual Wellness Visit (AWV) [facility] Start: 04-23-2022 DEPRESSION ASSESSMENT DEPRESSION ASS ESSMENT [facility] Start: 12-28-2021 End: 02-27-2022 Fibrin D-dimer FEU [Mass/volume] in Platelet poor plasma D-DIMER Lab Routine Acute deep vein thrombosis (DVT) of distal end of left lower extremity (HCC) Expected: 12/28/2021, Expires: 02/27/2022 [facility] Work Phone: Comment on above: Expected: 12/28/2021 , Expires: 02/27/2022 Start: 12-22-2021 End: 02-21-2022 APC RESISTANCE APC RESISTANCE Lab Routine Acute deep vein thrombosis (DVT) of distal end of left lower extremity (HCC) Expected: 12/22/2021 (Approximate), Expires: 02/21/2022 [facility] Work Phone: Comment on above: Expected: 12/22/2021 (Approximate), Expires: 02/21/2022 Start: 12-22-2021 End: 02-21-2022 B 2 GPI IGG & IGM B 2 GPI IGG & IGM Lab Routine Acute deep vein thrombosis (DVT) of distal end of left lower extremity (HCC) Expected: 12/22/2021 (Approximate), Expires: 02/21/2022 [facility] Work Phone: Comment on above: Expected: 12/22/2021 (Approximate), Expires: 02/21/2022 Start: 12-22-2021 End: 02-21-2022 Cardiolipin IgG and IgM panel - Serum ANTI-CARDIOLIPIN AB Lab Routine Acute deep vein thrombosis (DVT) of distal end of left lower extremity (HCC) Expected: 12/22/2021 (Approximate), Expires: 02/21/2022 [facility] Work Phone: Comment on above: Expected: 12/22/2021 (Approximate), Expires: 02/21/2022 Start: 12-22-2021 End: 02-21-2022 CBC W Auto Differential panel - Blood CBC + DIFF Lab Routine Acute deep vein thrombosis (DVT) of distal end of left lower extremity (HCC) Expected: 12/22/2021 (Approximate), Expires: 02/21/2022 [facility] Work Phone: Comment on above: Expected: 12/22/2021 (Approximate), Expires: 02/21/2022 Start: 12-22-2021 End: 02-21-2022 Comprehensive metabolic 2000 panel - Serum or Plasma COMP METABOLIC PANEL Lab Routine Acute deep vein thrombosis (DVT) of distal end of left lower extremity (HCC) Expected: 12/22/2021 (Approximate), Expires: 02/21/2022 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 Work Phone: Comment on above: Expected: 12/22/2021 (Approximate), Expires: 02/21/2022 Start: 12-22-2021 Influenza vaccination C [facility] Start: 12-22-2021 End: 02-21-2022 Lactate dehydrogenase [Enzymatic activity/volume] in Serum or Plasma LD LACTATE DEHYDRO Lab Routine Acute deep vein thrombosis (DVT) of distal end of left lower extremity (HCC) Expected: 12/22/2021 (Approximate), Expires: 02/21/2022 [facility] Work Phone: Comment on above: Expected: 12/22/2021 (Approximate), Expires: 02/21/2022 Start: 12-22-2021 End: 02-21-[address] AN[address] Lab Routine Acute deep vein thrombosis (DVT) of distal end of left lower extremity (HCC) Expected: 12/22/2021 (Approximate), Expires: 02/21/2022 [facility] Work Phone: Comment on above: Expected: 12/22/2021 (Approximate), Expires: 02/21/2022 Start: 01-21-2021 Colonoscopy COLONOSCOPY [facility] Start: 01-21-2021 COLORECTAL CANCER SCREENING COLORECTAL CANCER SCREENING [facility] Start: 2020 RSV Vaccine (1 - 1-d ose 60+ series) RSV Vaccine (1 - 1-dose 60+ series) [facility] Start: 12-16-2019 DIABETES SCREEN DIABETES SCREEN [facility] Start: 09-05-2015 PROSTATE CANCER SCRE ENING DISCUSSION PROSTATE CANCER SCREENING DISCUSSION [facility] Start: 08-14-2015 PNEUMOCOCCAL (2 - PCV) PNEUMOCOCCAL (2 - PCV) [facility] Start: 08-14-2015 Pneumococcal vaccination Pneum ococcal Vaccine (2 - PCV) [facility] Start: 01-12-2015 Urine microalbumin profile DTaP,Tdap,Td Vaccine (1 - Tdap) [facility] Start: 2010 Shingles vaccine (1 of 2) Tubbs gles vaccine (1 of 2) [facility] Start: 2010 SHINGRIX VACCINE (1 of 2) TUBBS GRIX VACCINE (1 of 2) [facility] Start: 2005 COLOGUARD (FIT-DNA) COLOGUARD (FIT-D NA) [facility] Start: 2005 Colonoscopy COLONOSCOPY [facility] Start: 2005 COLORECTAL CANCER SCREENING COLORECTAL CANCER SCREENING [facility] Start: [address] COLONOGRAPHY [facility] Start: 2005 FECAL OCCULT BLOOD FECAL OCCULT BLOO D [facility] Start: 2005 Screening for malign ant neoplasm of colon [facility] Start: 2005 SIGMOIDOSCOPY SIGMOIDOSCOPY [facility] Start: 2000 Lipid panel Lipids [facility] Start: 09-05-1995 Lipid 1996 panel - S eliza or Plasma Lipid Screening [facility] Start: 09-05-1995 LIPID SCREEN LIPID SCREEN [facility] Start: 09-05-1979 DTaP/Tdap/Td vaccine (1 - Tdap) DTaP/Tdap/Td vaccine (1 - Tdap) [facility] Start: 09-05-1979 SHINGRIX VACCINE (1 of 2) TUBBS GRIX VACCINE (1 of 2) [facility] Start: 09-05-1979 Urine microalbumin profile [facility] Start: 1978 HEPATITIS C SCREENING HEPATITIS C SC REENING [facility] Start: 1978 Hepatitis C screening Hepatitis C [facility] Start: 1978 HIV SCREENING HIV SCREENING [facility] Start: 09-05-1975 HIV screening HIV screen [facility] Start: 1972 Depression Screen Depression Screen [facility] Start: 1966 PNEUMOCOCCAL (1 - PCV) PNEUMOCOCCAL (1 - PCV) [facility] Start: 1965 COVID-19 VACCINE (#1) COVID-19 VACCI NE (#1) [facility] APC RESISTANCE APC RESISTANCE L ab Routine Acute deep vein thrombosis (DVT) of distal end of left lower extremity (HCC) 12/28/2021 2:[address] [facility] Work Phone: aPTT in Platelet poo r plasma by Coagulation assay ACTIVATED PTT Lab Routine Acute deep vein thrombosis (DVT) of distal end of left lower extremity (HCC) 12/28/2021 2:[address] [facility] Work Phone: B 2 GPI IGG & IGM B 2 GPI IGG & IGM Lab Routine Acute deep vein thrombosis (DVT) of distal end of left lower extremity ([facility]) 12/28/2021 2:[address] [facility] Work Phone: Bacteria identified in Unspecified specimen by Aerobe culture [facility] Bacteria identified in Unspecified specimen by Anaerobe culture [facility] BETA 2 GLYCOPROTEIN, IGG BETA 2 GLYCOPROTEIN, IGG Lab Routine Acute deep vein thrombosis (DVT) of distal end of left lower extremity ([facility]) 12/28/2021 2:[address] [facility] Work Phone: BETA 2 GLYCOPROTEIN, IGM BETA 2 GLYCOPROTEIN, IGM Lab Routine Acute deep vein thrombosis (DVT) of distal end of left lower extremity ([facility]) 12/28/2021 2:[address] [facility] Work Phone: Cardiolipin IgA Ab [Units/volume] in Serum by Immunoassay CARDIOLIPIN IGA ABS Lab Routine Acute deep vein thrombosis (DVT) of distal end of left lower extremity ([facility]) 12/28/2021 2:[address] [facility] Work Phone: CARDIOLIPIN IGG ABS CARDIOLIPIN IGG ABS Lab Routine Acute deep vein thrombosis (DVT) of distal end of left lower extremity ([facility]) 12/28/2021 2:[address] [facility] Work Phone: Cardiolipin IgG and IgM panel - Serum ANTI-CARDIOLIPIN AB Lab Routine Acute deep vein thrombosis (DVT) of distal end of left lower extremity ([facility]) 12/28/2021 2:[address] [facility] Work Phone: CARDIOLIPIN IGM ABS CARDIOLIPIN IGM ABS Lab Routine Acute deep vein thrombosis (DVT) of distal end of left lower extremity ([facility]) 12/28/2021 2:[address] [facility] Work Phone: End: 12-17-2023 CARDIOPULMONARY EXERCISE TEST CARDIOPULMONARY EXERCISE TEST PFT Routine SOB (shortness of breath) 1 Occurrences starting 11/17/2022 until 12/17/2023 [facility] Work Phone: Comment on above: 1 Occurrences starti ng 11/17/2022 until 12/17/2023 End: 08-17-2023 ECG COMPLETE ECG COMPLETE ECG Routine POTS (postural orthostatic tachycardia syndrome) 1 Occurrences starting 08/16/2022 until 08/17/2023 [facility] Work Phone: Comment on above: 1 Occurrences starti ng 08/16/2022 until 08/17/2023 End: 08-17-2023 Echocardiography ECHO Cardiology Routine Exertional dyspnea 1 Occurrences starting 08/16/2022 until 08/17/2023 [facility] Work Phone: Comment on above: 1 Occurrences starti ng 08/16/2022 until 08/17/2023 End: 10-07-2023 EMG(NEURO/NI) EMG(NEURO/NI) EMG Routine Disturbance of skin sensation 1 Occurrences starting 10/06/2022 until 10/07/2023 [facility] Work Phone: Comment on above: 1 Occurrences starti ng 10/06/2022 until 10/07/2023 F2 gene mutations fo und [Identifier] in Blood or Tissue by Molecular genetics method Nominal PROTHROMBIN GENE PCR Lab Routine Acute deep vein thrombosis (DVT) of distal end of left lower extremity (HCC) 12/28/2021 2:[address] [facility] Work Phone: FOUR EXTRA LT BLUE M AN COAG TUBES FOUR EXTRA LT BLUE MAN COAG TUBES Lab Routine Acute deep vein thrombosis (DVT) of distal end of left lower extremity (HCC) 12/28/2021 2:[address] [facility] Work Phone: LUPUS ANTICOAG PL LUPUS ANTICOAG PL Lab Routine Acute deep vein thrombosis (DVT) of distal end of left lower extremity (HCC) 12/28/2021 2:[address] [facility] Work Phone: LUPUS PANEL LUPUS PANEL Lab Routine Acute deep vein thrombosis (DVT) of distal end of left lower extremity (HCC) 12/28/2021 2:[address] [facility] Work Phone: End: 11-16-2023 MRI CARDIAC MORPH FUNC WO/W IVCON MRI CARDIAC MORPH FUNC WO/W IVCON Radiology Routine Dilated cardiomyopathy (HCC) 1 Occurrences starting 10/17/2022 until 11/16/2023 [facility] Work Phone: Comment on above: 1 Occurrences starti ng 10/17/2022 until 11/16/2023 End: 11-16-2023 MRI CARDIAC VELOCITY FLOW MAP MRI CARDIAC VELOCITY FLOW MAP Radiology Routine Dilated cardiomyopathy (HCC) 1 Occurrences starting 10/17/2022 until 11/16/2023 [facility] Work Phone: Comment on above: 1 Occurrences starti ng 10/17/2022 until 11/16/2023 OUTSIDE VENDOR CARDI AC OUTPATIENT EXTENDED RHYTHM RECORDING (WITHOUT TELEMETRY) OUTSIDE VENDOR CARDIAC OUTPATIENT EXTENDED RHYTHM RECORDING (WITHOUT TELEMETRY) Holter Routine Lightheadedness POTS (postural orthostatic tachycardia syndrome) Exertional dyspnea Ordered: 08/16/2022 [facility] Work Phone: Comment on above: Ordered: 08/16/2022 PT panel - Platelet poor plasma by Coagulation assay PROTHROMBIN TIME/PT Lab Routine Acute deep vein thrombosis (DVT) of distal end of left lower extremity (HCC) 12/28/2021 2:[address] [facility] Work Phone: End: 09-15-2023 Pulmonary ventilation & perfusion imaging NM LUNG VENT / PERF VQ Radiology Routine Exertional dyspnea Other secondary pulmonary hypertension (HCC) 1 Occurrences starting 08/16/2022 until 09/15/2023 [facility] Work Phone: Comment on above: 1 Occurrences starti ng 08/16/2022 until 09/15/2023 [facility] Immunizations Immunization Date Immunization Notes Care Provider Yoko garnica 03-13-2022 COVID-19 Pfizer (Pediatric) Silvana Lundberg Other [facility] Other 03-13-2022 influenza virus vaccine, split virus (incl. purified surface antigen) Silvana Lundberg Other [facility] Other 03-13-2022 influenza virus vaccine, unspecified formulation Jerrod BELL [facility] 03-13-2022 SARS-CoV-2 (COVID-19 ) [id number] Jerrod BELL [facility] 05-08-2021 SARS-CoV-2 (COVID-19 ) mRNA BNT-162b2 vax Jerrod BELL [facility] 03-12-2021 influenza virus vaccine, split virus (incl. purified surface antigen) Silvana Lundberg Other [facility] Other 03-12-2021 influenza virus vaccine, unspecified formulation Jerrod BELL [facility] 03-12-2021 influenza, injectabl e, quadrivalent, preservative free Merly Marti MD Work Phone: [facility] 08-06-2020 COVID-19 mRNA,VFL131 b2 (Pfizer) Silvana Lundberg Work Phone: [facility] 07-22-2020 COVID-19 vaccine (NORTH) Merly Marti MD Work Phone: [facility] 07-13-2020 COVID-19 mRNA,UOB545 b2 (Pfizer) Silvana Lundberg Work Phone: [facility] 06-21-2020 COVID-19 vaccine (NORTH) Merly Marti MD Work Phone: [facility] 12-31-2019 influenza virus vaccine, split virus (incl. purified surface antigen) Silvana Lundberg Other [facility] Other 01-29-2019 influenza virus vaccine, split virus (incl. purified surface antigen) Silvana Lundberg Other [facility] Other 01-11-2015 tetanus and diphther ia toxoids, adsorbed, preservative free, for adult use (5 Lf of tetanus toxoid and 2 Lf of diphtheria toxoid) Silvana Lundberg Other [facility] Other 08-13-2014 pneumococcal polysaccharide vaccine, 23 valent Merly Marti MD Work Phone: [facility] NEGATED: Highlighted row has not occurred!05-04-2020 pneumococcal polysaccharide vaccine, 23 valent Silvana Lundberg Other [facility] Other Payers Date Payer Category Payer Medicare HUMANA MEDICARE HUMANA MEDICARE PPO [id number] 2021-Present [phone] [address] [place] [address] PPO [id number] 2021 Medicare HUMANA MEDICARE HU[employer]NA MEDICARE PPO [id number] 2021-Present [phone] [address] [place] [address] PPO [id number] 1960 Unknown [id number] 2.16.840.1.798035.3.579.2.1 73 1960 Unknown [id number] 2.16.840.1.683411.3.579.2.5 93 1960 Unknown [id number] 2.16.840.1.055868.3.579.2.5 93 1960 Unknown [id number] 2.16.840.1.678106.3.579.2.5 93 1960 Unknown [id number] 2.16.840.1.753989.3.579.2.5 93 1960 Unknown [id number] 2.16.840.1.215908.3.579.2.5 93 1960 Unknown [id number] 2.16.840.1.684160.3.579.2.5 1960 Unknown [id number] 2.16.840.1.496906.3.579.2.5 1960 Unknown [id number] 2.16.840.1.077862.3.579.2.5 93 1960 Unknown [id number] 2.16.840.1.945355.3.579.2.5 1960 Unknown [id number] 2.16.840.1.615932.3.579.2.5 1960 Unknown [id number] 2.16.840.1.670658.3.579.2.5 1960 Unknown [id number] 2.16.840.1.776411.3.579.2.5 1960 Unknown [id number] 2.16.840.1.827295.3.579.2.5 1960 Unknown [id number] 2.16.840.1.983126.3.579.2.5 1960 Unknown [id number] 2.16.840.1.941960.3.579.2.5 93 1960 Unknown [id number] 2.16.840.1.969461.3.579.2.5 1960 Unknown [id number] 2.16.840.1.410235.3.579.2.5 1960 Unknown [id number] 2.16.840.1.710707.3.579.2.7 27 1960 Unknown [id number] 2.16.840.1.725358.3.579.2.7 27 1959 Private Health Insurance [id number] Self-pay [id number] Medicare [id number] Unknown [id number] Unknown [id number] Unknown [id number] 2.16.840.1.441582.3.579.2.5 93 Unknown [id number] 2.16.840.1.121508.3.579.2.5 31 Unknown [id number] 2.16.840.1.768326.3.579.2.5 31 Unknown [id number] 2.16.840.1.920724.3.579.2.5 31 Social History Date Type Detail Facility Tobacco smoking stat [facility] Unknown if ever smoked [facility] Start: 1960 Sex Assigned At Male F [facility] Start: 12-28-2021 End: 05-01-2022 Tobacco smoking status NHIS Ex-smoker [facility] History of tobacco use Cigarette Smoker [facility] Start: 09-16-2021 End: 08-16-2022 Alcohol intake Current non-drinker of alcohol (finding) [facility] Start: 1960 Sex Assigned At Not on file [facility] Start: 09-11-2021 End: 10-16-2022 Exposure to SARS-CoV-2 (event) Not sure [facility] History of tobacco use Current smoker [facility] Start: 12-28-2021 End: 08-29-2022 Cigarettes smoked current (pack per day) - Reported 2 [facility] History of tobacco use Passive smoker [facility] Start: 12-28-2021 Tobacco use and exposure Smokeless tobacco non-user [facility] Start: 12-28-2021 Tobacco Comment quit 1997 [facility] Start: 08-29-2022 End: 11-17-[address] Male [facility] Tobacco smoking stat us HIIS Tobacco smoking consumption unknown DILAN CORBETT [facility] Work Phone: Adult Depression Screening Assessment 2 [facility] Medical Equipment Procedure Code Equipment Code Equipment Origin al Text Equipment Identifier Dates Graft Infuse 18m m Large Ii Bovine Collagen Rhbmp-2 26mm Bone Absorbable - [id number] Start: 09-01-2016 Connector Chika 0d Small Titanium Chaitanya Spine - [id number] Start: 09-01-2016 Substitute Mastergraft Bone Graft Matrix Block Extension Void Filler 10ml - [id number] Start: 09-01-2016 Lsd-Bg-D-Kind Im plant - [id number] Start: 12-01-2015 Comment on above: Description: g7 osse eduardo acetabular shell 4 hole cementless Niv-Gt-U-Kind Im plant - [id number] Start: 12-01-2015 Comment on above: Description: g7 acet abular screw Anw-Ru-X-Kind Im plant - [id number] Start: 12-01-2015 Comment on above: Description: g7 acet abular liner neutral Ecp-Ot-B-Kind Im plant - [id number] Start: 12-01-2015 Comment on above: Description: taperlo c complete primary femoral porous coated stem reduced distal high offset type 1 taper Cage Spnl Tri 8x 23mm 6d 11mm - [id number] Start: 09-01-2016 Screw Chika 3 Mali nium Set Malaika Spine - [id number] Start: 09-01-2016 Head G7 40mm Bio lox Delta Femoral Hip - [id number] Start: 12-01-2015 Comment on above: Description: ceramic head Sleeve G7 -6mm O ffset Taper Biolox Delta Option Titanium Centering Type 1 - [id number] Start: 12-01-2015 Comment on above: Description: taper a dapter Chaitanya Chika 3 6mm 48 0mm Spinal - [id number] Start: 09-01-2016 Screw Chika 3 7.5m m Titanium 40mm Bone Polyaxial Spine Thoracolumbar - [id number] Start: 09-01-2016 Screw Chika 3 7.5m m Titanium 45mm Bone Polyaxial Spine Thoracolumbar - [id number] Start: 09-01-2016 Henderson Chika 8.5mm 7 0mm Spinal Polyaxial Ilium - [id number] Start: 09-01-2016 Screw Chika 3 6.5m m Titanium 45mm Bone Polyaxial Spine Thoracolumbar - [id number] Start: 09-01-2016 Goals Date Patient Goal Desired Activity /State Functional Status Date Assessment Result Facility 05-01-2022 Functional Status N/A [facility] Clinical Notes 12-09-2016 to 05-16-2023 Note Date & Type Note Facility 05-16-2023 Note HNO ID: [id number] Author: TIFFANY PETERSON PA-C Service: ? Author Type: Physician Dry Pan Charger Type: Progress Notes Filed: 05/16/2023 12:16 Note Text: PATIENT NAME: Elena Felix [facility] NO.: [id number] ATTENDING PHYSICIAN: Merly Marti MD DATE OF SERVICE: May 16, 2023 (Elements copied from Dr. Marti's note dated November 15, 2022, have been reviewed and updated where appropriate, and all reflect current assessment and medical decision making during today's encounter, May 16, 2023) CC: Follow up Diagnosis: DVT Elevated kappa with negative GILLIAN 10/2022 Treatment History: HPI: Mr. Felix returns for follow up. He fell at home and broke his left hip in January 2023. He has been on iron since then because he was told his iron was low. He has no new other issues or complaints. No blood clots. PAST MEDICAL HISTORY Diagnosis Date Ankylosing spondylitis ([facility]) Dr Hodges Ankylosing spondylitis ([facility]) Arthritis Back pain Cardiomyopathy ([facility]) Nonischemic Congestive Cerebrovascular small vessel disease 08/24/2016 On ASA DVT (deep venous thrombosis) ([facility]) Esophageal reflux Former smoker Kidney stones Major depressive disorder with single episode, in remission ([facility]) 08/24/2016 Morbid obesity with BMI of 40.0-44.9, adult ([facility]) Neuropathy Obstructive sleep apnea syndrome, severe [...] of hands/feet. No weakness. PHYSICAL EXAMINATION: BP 113/66 Pulse 101 Temp (Src) 97.6 (Temporal) Resp 18 Ht 6' 2.016 (1.88m) Wt 289 lb 11 oz (131.4kg) SpO2 97% BMI 37.18 kg/(m2). ECOG PERFORMANCE STATUS: 0- Fully active, able to carry on all pre-disease performance w/o restriction. General: Alert and oriented, no distress, pleasant and cooperative. Using a walker Heart: Regular, normal S1 and S2, no murmurs, rubs, or gallops Lungs: Clear to auscultation bilaterally Abdomen: Benign Extremities: Feet/ankles without edema, posterior tibial pulses full and symmetrical LABS: WBC Date Value Ref Range Status 05/16/2023 5.23 3.70 - 11.00 k/uL Final RBC Date Value Ref Range Status 05/16/2023 4.36 4.20 - 6.00 m/uL Final Hemoglobin Date Value Ref Range Status 05/16/2023 12.8 (L) 13.0 - 17.0 g/dL Final Hematocrit Date Value Ref Range Status 05/16/2023 41.4 39.0 - 51.0 % Final MCV Date Value Ref Range Status 05/16/2023 95.0 80.0 - 100.0 fL Final MCH Date Value Ref Range Status 05/16/2023 29.4 26.0 - 34.0 pg Final MCHC Date Value Ref Range Status 05/16/2023 30.9 30.5 - 36.0 g/dL Final RDW-CV Date Value Ref Range Status 05/16/2023 15.7 (H) 11.5 - 15.0 % Final Platelet Count Date Value Ref Range Status 05/16/2023 233 150 - 400 k/uL Final MPV Date Value Ref Range Status 05/16/2023 9.5 9.0 - 12.7 fL Final Abs Neut Date Value Ref Range Status 05/16/2023 3.31 1.45 - 7.50 k/uL Final Lymphocytes % Date Value Ref Range Status 05/16/2023 22.9 % Final Abs Lymph Date Value Ref Range Status 05/16/2023 1.20 1.00 - 4.00 k/uL Final Monocytes % Date Value Ref Range Status 05/16/2023 6.9 % Final Abs Burke Date Value Ref Range Status 05/16/2023 0.36 <0.87 k/uL Final Eosinophils % Date Value Ref Range Status 05/16/2023 5.5 % Final Abs Eosin Date Value Ref Range Status 05/16/2023 0.29 <0.46 k/uL Final Basophils % Date Value Ref Range Status 05/16/2023 1.0 % Final Abs Baso Date Value Ref Range Status 05/16/2023 0.05 <0.11 k/uL Final PATH: Imaging: Assessment and Plan: Elena Felix is a 61 yea (more content not included)... [facility] 03-29-2023 Evaluation note Encounter Date Diagnosis Assessment [...] (ICD-10 - L30.9) Advised OTC Cortisone cream. [facility] Other 10-16-2023 NoteHNO ID: [id number] Author: Austin Clark MD Service: ? Author Type: Physician Type: Progress Notes Filed: 02/05/2023 1:39 PM Note Text: I personally reviewed the above information as obtained by the nurse and confirmed the findings. Chief Complaint: shortness of breath, Near loss of consciousness Additional HPI: 62 year old male with a past medical history of: PAST MEDICAL HISTORY Diagnosis Date Ankylosing spondylitis ([facility]) Dr Hodges Ankylosing spondylitis ([facility]) Arthritis Back pain Cardiomyopathy ([facility]) Nonischemic Congestive Cerebrovascular small vessel disease 08/24/2016 On ASA DVT (deep venous thrombosis) ([facility]) Esophageal reflux Former smoker Kidney stones Major depressive disorder with single episode, in remission ([facility]) 08/24/2016 Morbid obesity with BMI of 40.0-44.9, adult ([facility]) Neuropathy Obstructive sleep apnea syndrome, severe [...] a cardiac MRI as (more content not included)...[facility]10-16-2023 NoteHNO ID: [id number] Author: Anna Duvall RN Service: ? Author Type: Registered Nurse Type: Progress Notes Filed: 02/05/2023 1:39 PM Note Text: [facility] Department of Cardiovascular Medicine SECTION OF CARDIAC PACING and ELECTROPHYSIOLOGY OUTPATIENT VISIT DATE February 05, 2023 PRIMARY CARE PHYSICIAN: Silvana Lundberg ([place]) [address] [place] [address] REFERRING PHYSICIAN: Tricia Howard [address] [facility] [address] NURSING INTAKE HISTORY: Mr. Felix is a [...] MEDICAL HISTORY Diagnosis Date - Ankylosing spondylitis ([facility]) Dr Hodges - Ankylosing spondylitis ([facility]) - Arthritis - Back pain - Cardiomyopathy ([facility]) Nonischemic Congestive - Cerebrovascular small vessel disease 08/24/2016 On ASA - DVT (deep venous thrombosis) ([facility]) - Esophageal reflux - Former smoker - Kidney stones - Major depressive disorder with single episode, in remission ([facility]) 08/24/2016 - Morbid obesity with BMI of 40.0-44.9, adult ([facility]) - (more content not included)...[facility]10-16-2023 History of Present illness Narrative* Austin Clark MD - 02/05/2023 1:01 PM EDT I personally reviewed the above information as obtained by the nurse and confirmed the findings. Chief Complaint: shortness of breath, Near loss of consciousness Additional HPI: 62 year old male with a past medical history of: PAST MEDICAL HISTORY Diagnosis Date Ankylosing spondylitis ([facility]) Dr Hodges Ankylosing spondylitis ([facility]) Arthritis Back pain Cardiomyopathy ([facility]) Nonischemic Congestive Cerebrovascular small vessel disease 08/24/2016 On ASA DVT (deep venous thrombosis) ([facility]) Esophageal reflux Former smoker Kidney stones Major depressive disorder with single episode, in remission ([facility]) 08/24/2016 Morbid obesity with BMI of 40.0-44.9, adult ([facility]) Neuropathy Obstructive sleep apnea syndrome, severe [...] up with their primary care physician and/or reducing machine operator as previously scheduled. STUDY CONCLUSIONS: Abnormal head [...] to repeat a Tilt Table Test with gnyl-ex-kppc blood pressure monitoring here at [facility]. He agrees. If a relationship between [...] of syncope. [ACC/AHA Syncope Guidelines 2017. PMID 65400325] -If syncope is frequent (more than 6 episodes in 1 year), then no private driving until symptoms are controlled. [ACC/AHA Syncope Guidelines 2017. PMID 24169302] -For professional or commercial driving, driving recommendations may differ depending upon company or governmental regulations. The Nurses and Nurse Practitioners at [facility] are integral to your care. -*Test results will be available on [employer].* -For brief questions regarding the test results, please send a [employer] message or call the office ([phone]), and a Nurse will be in contact. [...] for your consultation. Sincerely, Austin Clark MD, [facility], [facility] Cardiac Electrophysiology [facility] * Anna Duvall RN - 02/05/2023 12:00 PM EDT Images from the original note were not included. [facility] Department of Cardiovascular Medicine SECTION OF CARDIAC PACING and ELECTROPHYSIOLOGY OUTPATIENT VISIT DATE February 05, 2023 PRIMARY CARE PHYSICIAN: Silvana Lundberg ([place]) [address] [place] [address] REFERRING PHYSICIAN: Tricia Howard [address] [facility] [address] NURSING INTAKE HISTORY: Mr. Felix is a 62 year old male who is seen today for lightheadedness and POTS. 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 He is followed by Dr. Howard [...] PAST MEDICAL HISTORY Diagnosis Date Ankylosing spondylitis ([facility]) Dr Hodges Ankylosing spondylitis ([facility]) Arthritis Back pain Cardiomyopathy ([facility]) Nonischemic Congestive Cerebrovascular small vessel disease 08/24/2016 On ASA DVT (deep venous thrombosis) ([facility]) Esophageal reflux Former smoker Kidney stones Major depressive disorder with single episode, in remission ([facility]) 08/24/2016 Morbid obesity with BMI of 40.0-44.9, adult ([facility]) Neuropathy Obstructive sleep apnea syndrome, severe [...] Sweating, Frequent Urination, FrequentThirst Anna Duvall RN [facility] Syncope Center Score Please estimate the [...] of Both Sections: 35 documented in this encounterLuther[facility] Hospital09-[facility]23 Evaluation note* Encounter Date Diagnosis Assessment Notes Treatment Notes Treatment Clinical Notes Dec, Pernicious anemia (ICD-10 - D51.0) [facility] Other 07-28-2023 NoteHNO ID: [id number] Author: Tricia Howard MD Service: ? Author Type: Physician Type: Progress Notes Filed: 11/30/2022 5:11 PM Note Text: [facility] Department of Cardiovascular Medicine SECTION OF CLINICAL CARDIOLOGY OUTPATIENT VISIT DATE November 17, 2022 OUTPATIENT VISIT TYPE ESTABLISHED PRIMARY CARE PHYSICIAN: Silvana Lundberg ([facility]) [address] [place] [phone] REFERRING PHYSICIAN: No referring provider defined for [...] PAST MEDICAL HISTORY Diagnosis Date Ankylosing spondylitis ([facility]) Dr Hodges Ankylosing spondylitis ([facility]) Arthritis Back pain Cardiomyopathy ([facility]) Nonischemic Congestive Cerebrovascular small vessel disease 08/24/2016 On ASA DVT (deep venous thrombosis) ([facility]) Esophageal reflux Former smoker Kidney stones Major depressive disorder with single episode, in remission ([facility]) 08/24/2016 Morbid obesity with BMI of 40.0-44.9, adult ([facility]) Neuropathy Obstructive sleep apnea syndrome, severe [...] Position: Sitting, BP Cuff (more content not included)...[facility]07-28-2023 Instructions* Patient Instructions* Tricia Howard MD - 11/17/2022 11:06 AM EDT Cardiopulmonary exercise testing documented in this encounterLuther[facility]07-28-2023 History of Present illness Narrative* Tricia Howard MD - 11/17/2022 10:46 AM EDT Images from the original note were not included. [facility] Department of Cardiovascular Medicine SECTION OF CLINICAL CARDIOLOGY OUTPATIENT VISIT DATE November 17, 2022 OUTPATIENT VISIT TYPE ESTABLISHED PRIMARY CARE PHYSICIAN: Silvana Lundberg ([facility]) [address] [place] [phone] REFERRING PHYSICIAN: No referring provider defined for [...] PAST MEDICAL HISTORY Diagnosis Date Ankylosing spondylitis ([facility]) Dr Hodges Ankylosing spondylitis ([facility]) Arthritis Back pain Cardiomyopathy ([facility]) Nonischemic Congestive Cerebrovascular small vessel disease 08/24/2016 On ASA DVT (deep venous thrombosis) ([facility]) Esophageal reflux Former smoker Kidney stones Major depressive disorder with single episode, in remission ([facility]) 08/24/2016 Morbid obesity with BMI of 40.0-44.9, adult ([facility]) Neuropathy Obstructive sleep apnea syndrome, severe [...] with the prior echocardiographic exam performed on * * * Final * * * Last EKG Result Conclusion ECG COMPLETE Collected: 08/16/2022 7:21 AM (Final result) Impression: NORMAL SINUS RHYTHM NORMAL ECG Confirmed by YELENA FUENTES MD ([id number]) on 08/16/2022 10:01:53 AM Patient Name: Elena [...] Tricia Howard MD Section of Clinical Cardiology [facility] Department of Cardiovascular Medicine [facility] Desk [id number] [id number] Office Office Appointments: [phone] documented in this encounterLutheran Hospital07-26-2023 NoteHNO ID: [id number] Author: Merly Marti MD Service: ? Author Type: Physician Type: Progress Notes Filed: 11/15/2022 11:35 AM Note Text: PATIENT NAME: Elena Felix [facility] NO.: [id number] ATTENDING PHYSICIAN: Merly Marti MD DATE OF [...] PAST MEDICAL HISTORY Diagnosis Date Ankylosing spondylitis ([facility]) Dr Hodges Ankylosing spondylitis ([facility]) Arthritis Back pain Cardiomyopathy ([facility]) Nonischemic Congestive Cerebrovascular small vessel disease 08/24/2016 On ASA DVT (deep venous thrombosis) ([facility]) Esophageal reflux Former smoker Kidney stones Major depressive disorder with single episode, in remission ([facility]) 08/24/2016 Morbid obesity with BMI of 40.0-44.9, adult ([facility]) Neuropathy Obstructive sleep apnea syndrome, severe [...] Date Value 10/06/2022 72 (more content not included)...[facility]07-18-2023 Evaluation note* Encounter Date Diagnosis Assessment Notes Treatment Notes Treatment Clinical Notes Oct, Pernicious anemia (ICD-10 - D51.0) [facility] Other 07-11-2023 Evaluation note* Encounter Date Diagnosis Assessment Notes Treatment Notes Treatment Clinical Notes Oct, Cellulitis of right leg (ICD-10 - L03.115) Discussed antibiotics, pain med, consider referral to wound center if not healing well. [facility] Other 06-27-2023 Miscellaneous Notes* Telephone Encounter - Shelia Woods RN - 10/17/2022 9:06 AM EDT Called patient to discuss results of BMP with kidney function and potassium levels still elevated. Left generic message on non-identifying voicemail to return call or read [employer] message sent to notify him. Misti Woods RN documented in this encounterLutheran Hospital06-26-2023 Evaluation note* Encounter Date Diagnosis Assessment [...] Will recheck labs, possibly checked this morning. [facility] Other 06-26-2023 NoteHNO ID: [id number] Author: Trip Grey MD Service: ? Author [...] of Care Visit completed when applicable. Luz Monk EMG Trip J Thakore, [facility]06-26-2023 History of Present illness Narrative* Trip [...] applicable. Luz Grey MD documented in this encounterLutheran Hospital06-22-2023 Miscellaneous Notes* Telephone Encounter - Shelia Woods RN - 10/12/2022 1:09 PM EDT Called and left a generic message on non-identifying voicemail for return call if he has any questions about the [employer] message that Anna sent. Misti Woods RN documented in this encounterLutheran Hospital06-16-2023 NoteHNO ID: [id number] Author: Anna North APRN.CONSULTING APPLICATION ENGINEER Service: ? Author Type: Nurse Practitioner Type: Progress Notes Filed: 10/06/2022 10:14 AM Note Text: [facility] New Patient Evaluation Chief Complaint/Issues: Elena Felix is a 62 year old right-handed male seen in the [facility] for: New patient Orthostatic [...] had multiple back and hip surgeries. His ply bander is locally in [place]. He had surgery in 2019, had a [...] and heart issues. He sees cardiology in [facility]. He had a heart cath and showed [...] PT in the past and sees his ply bander for the neck. [facility] PAST MEDICAL HISTORY Diagnosis Date Ankylosing spondylitis ([facility]) Dr Hodges Ankylosing spondylitis ([facility]) Arthritis Back pain Cardiomyopathy ([facility]) Nonischemic Congestive Cerebrovascular small vessel disease 08/24/2016 On ASA DVT (deep venous thrombosis) ([facility]) Esophageal reflux Former smoker Kidney stones Major depressive disorder with single episode, in remission ([facility]) 08/24/2016 Morbid obesity with BMI of 40.0-44.9, adult ([facility]) Neuropathy Obstructive sleep apnea syndrome, severe [...] Constipation: no Abdominal Bl (more content not included)...[facility]06-16-2023 Instructions* Patient Instructions* Anna North APRN.[facility] - 10/06/2022 9:58 AM EDT 1) Labs 2) EMG 3) Discuss with urology changing to different medication (discontinuing Flomax) 4) Discuss your neck symptoms with your ply bander 5) Medication consideration - Will discuss with [...] intolerance quickly and transiently. documented in this encounterLutheran Hospital06-16-2023 History of Present illness Narrative* Anna North APRN.[facility] - 10/06/2022 9:00 AM EDT Images from the original note were not included. [facility] New Patient Evaluation Chief Complaint/Issues: Elena Felix is a 62 year old right-handed male seen in the [facility] for: New patient Orthostatic [...] had multiple back and hip surgeries. His ply bander is locally in [place]. He had surgery in 2019, had a [...] GI andheart issues. He sees cardiology in [facility]. He had a heart cath and showed [...] PT in the past and sees his ply bander for the neck. [facility] PAST MEDICAL HISTORY Diagnosis Date Ankylosing spondylitis ([facility]) Dr Hodges Ankylosing spondylitis ([facility]) Arthritis Back pain Cardiomyopathy ([facility]) Nonischemic Congestive Cerebrovascular small vessel disease 08/24/2016 On ASA DVT (deep venous thrombosis) ([facility]) Esophageal reflux Former smoker Kidney stones Major depressive disorder with single episode, in remission ([facility]) 08/24/2016 Morbid obesity with BMI of 40.0-44.9, adult ([facility]) Neuropathy Obstructive sleep apnea syndrome, severe On auto-CPAP - sleep study done on 07/10/16 Pneumonia PAST SURGICAL HISTORY Procedure Laterality Date BACK SURGERY HX 2013 BACK SURGERY HX 2014 MIDLINE INSERTION/CONSULT 09/05/2016 [...] up with their primary care physician and/or reducing machine operator as previously scheduled. STUDY CONCLUSIONS: Abnormal head [...] & Plan 10/06/2022 - Neuromuscular, Anna North, RAGINI.CONSULTING APPLICATION ENGINEER ASSESSMENT Elena Felix is a 62 year [...] managed by local rheumatology, and seen by [facility] rheumatology recently, Alexus Nance PA-C. [...] SOB. He had OSH tilt completed through [facility] 07/2022. Though I cannot see the minute [...] which I will discuss with his primary reducing machine operator, Dr. Howard (staff message sent 10/06). He is currently in cardiac rehab locally 3x per week. We discuss conservative measures as tolerated. PLAN 1) Labs 2) EMG 3) Discuss with urology changing to different medication (discontinuing Flomax) 4) Discuss your neck symptoms with your ply bander 5) Medication consideration - Will discuss with [...] which included preparing to see the patient, [id number] patient care, completing clinical documentation, obtaining and/or reviewing separately obtained history, performing a medically appropriate examination, counseling and educating the pat ient/family/caregiver, and ordering medications, tests, or procedures. Anna North APRN.CNP General Neurology [address] [place]. [address] Appointment: [phone] CONSULT: Consultation requested by Dr. Howard for [...] of your PCP/referring physician documented in this encounterLutheran Hospital06-14-2023 NoteHNO ID: [id number] Author: Víctor Lewis RT(R) Service: Nuclear Medicine Author Type: Technologist Type: [...] 8:10 PATIENT DISCHARGED TO: Ambulatory patient, left [place] department area. A Diagnostic radioactive procedure has taken place, with no further precautions necessary other than routine body substance precautions. More information regarding radiation safety can be found using this link: [email or web address] SIGNATURE: RT Eamon(R) PATIENT NAME: Elena Felix DATE: October 04, 2022 TIME: 8:15 AM PAGER/CONTACT #:[facility]06-14-2023 History of Present illness Narrative* Víctor LewisRT(R) - 10/04/2022 8:30 AM EDT RADIOLOGY SERVICE [...] 8:10 PATIENT DISCHARGED TO: Ambulatory patient, left [place] department area. A Diagnostic radioactive procedure has taken place, with no further precautions necessary other than routine body substance precautions. More information regarding radiation safety can be found usingFengxiafeis link: [email or web address]%[email or web address]%[email or web address] SIGNATURE: RT Eamon(Griffin) PATIENT NAME: Elena Felix DATE: October 04, 2022 TIME: 8:15 AM PAGER/CONTACT #: documented in this encounterLutheran Hospital06-13-2023 NoteThe is a pleasant 62-year-old male with nonischemic cardiomyopathy, chronic systolic heart failure (HFrEf), Mild nonobstructive coronary artery disease (right heart catheterization 09/2021), hypertension, dyslipidemia who was found to have orthostatic hypotension and previously evaluated in the Cardiac Clinic at the [facility]. He last saw Maite Ba advanced practice registered nurse practitioner in July 2022. He underwent head upright tilt table testing positive for orthostatic intolerance at [facility]. He was commenced on pyridostigmine several months ago. He has been referred to the Syncope and Autonomic Disorders Clinic in the Heart and Vascular Center at the [facility] for further management of the orthostatic hypotension. Chief Complaint: Follow-up for orthostatic hypotension and pyridostigmine. Had severe diarrhea and stomach cramps so stopped both medications. Blood pressure continues to drop with standing. Low 50/30mmhg. Near syncope. Black vision. Blood pressure highest: SBP 140-150mmhg Follows with Dr Howard [facility]. Hx ankylosis spondylitis. 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 Likely these Covid long haulers develop an inflammatory/autoimmune response that effects the ANS. Mr Felix has longstanding ankylosis spondylitis. Failed pyridostigmine and midodrine. Consider droxidopa or Northera. Discussed reconditioning, fluids, conservative measures. Will follow with [facility] providers and rtc 3months.[facility]05-24-2023 Nurse Note* Yuliana Tubbs RN - [...] kind. Yuliana Tubbs RN documented in this encounterLutheran Hospital05-09-2023 NoteHNO ID: [id number] Author: Marcia Diamond MD Service: ? Author [...] Felix DATE: August 29, 2022 TIME: 1:57 [facility]05-09-2023 History of Present illness Narrative* Marcia Diamond [...] 2022 TIME: 1:57 PM documented in this encounterLutheran Hospital05-08-2023 Miscellaneous Notes* Telephone Encounter - Lauryn [...] In Department of CARDIOLOGY. documented in this encounterLutheran Hospital04-26-2023 NoteHNO ID: [id number] Author: Catia Snell Service: ? Author Type: ? Type: Progress Notes Filed: 08/16/2022 10:07 AM Note Text: [facility]04-26-2023 NoteHNO ID: [id number] Author: Alexus Nance PA-C Service: ? Author Type: Physician Dry Pan Charger Type: Progress Notes Filed: 09/19/2022 6:06 AM Note Text: Rheumatology Outpatient Clinic Date of Service: 08/16/2022 Patient: Elena Felix Medical Record: [id number] Primary Care Physician: Silvana Lundberg MD Last Rheumatology visit: None at the [facility] Referring Provider: Tricia Howard MD [address] [facility] [address] Consultation requested by Tricia Howard MD for [...] years later. He currently follows with a ply bander, Dr. Brad Hodges, in [place], [place] who he is happy with. However, reports ply bander told him, he is only his third patient with ankylosing spondylitis and so presents to [facility] rheum for assistance on treatment [...] mass areas in the brain. Reports his ply bander has considered a TNF-alpha inhibitor again, but [...] PAST MEDICAL HISTORY Diagnosis Date Ankylosing spondylitis ([facility]) Dr Hodges Ankylosing spondylitis ([facility]) Arthritis Back pain Cardiomyopathy ([facility]) Nonischemic Congestive Cerebrovascular small vessel disease 08/24/2016 On ASA DVT (deep venous thrombosis) ([facility]) Esophageal reflux Former smoker Kidney stones Major depressive disorder with single episode, in remission ([facility]) 08/24/2016 Morbid obesity with BMI of 40.0-44.9, adult ([facility]) Neuropathy Obstructive sleep apnea syndrome, severe [...] multiple sclerosis Social Histo (more content not included)...[facility]04-26-2023 Instructions* Patient Instructions* Alexus Nance PA-C - [...] uveitis coverage. Continue to follow with primary ply bander for medication changes and monitoring. [facility] can continue to assist with treatment plan as needed. documented in this encounterLutheran Hospital04-26-2023 NoteHNO ID: [id number] Author: Tricia Howard MD Service: ? Author Type: Physician Type: Progress Notes Filed: 08/16/2022 1:01 PM Note Text: [facility] [place] [facility] Department of Cardiovascular Medicine SECTION OF CLINICAL CARDIOLOGY OUTPATIENT VISIT DATE August 16, 2022 OUTPATIENT VISIT TYPE NEW PRIMARY CARE PHYSICIAN : Silvana Lundberg ([place]) [address] [place] [phone] REFERRING PHYSICIAN: No referring provider defined for [...] 25% now 60%) 2/2 NICM. Starting in 2018 post-op, began experiencing palpitations and [...] 20 years ago. Used to work in [employer]. Fmaily hx of stroke in mother and father. PAST MEDICAL HISTORY Diagnosis Date Ankylosing spondylitis ([facility]) Dr Hodges Ankylosing spondylitis ([facility]) Arthritis Back pain Cardiomyopathy ([facility]) Nonischemic Congestive Cerebrovascular small vessel disease 08/24/2016 On ASA DVT (deep venous thrombosis) ([facility]) Esophageal reflux Former smoker Kidney stones Major depressive disorder with single episode, in remission ([facility]) 08/24/2016 Morbid obesity with BMI of 40.0-44.9, adult ([facility]) Neuropathy Obstructive sleep apnea syndrome, severe On auto-CPAP - sleep study done on 07/10/16 Pneumonia PAST SURGICAL HISTORY Procedure Laterality Date BACK SURGERY HX 2013 BACK SURGERY HX 2014 MIDLINE INSERTION/CONSULT 09/05/2016 [...] daily. REVIEW OF SYSTEMS (more content not included)...[facility] 08-16-2022 History of Present illness Narrative* Catia Snell - 08/16/2022 10:06 AM EDT E documented in this encounterLutheran Hospital04-26-2023 History of Present illness Narrative* Alexus Nance PA-C - 08/16/2022 10:00 AM EDT Images from the original note were not included. Rheumatology Outpatient Clinic Date of Service: 08/16/2022 Patient: Elena Felix Medical Record: [id number] Primary Care Physician: Silvana Lundberg MD Last Rheumatology visit: None at the [facility] Referring Provider: Tricia Howard MD [address] [facility] [address] Consultation requested by Tricia Howard MD for [...] years later. He currently follows with a ply bander, Dr. Brad Hodges, in [place], [place] who he is happy with. However,reports ply bander told him, he is only his third patient with ankylosing spondylitis and so presents to [facility] rheum for assistance on treatment [...] mass areas in the brain. Reports his ply bander has considered a TNF-alpha inhibitor again, but [...] PAST MEDICAL HISTORY Diagnosis Date Ankylosing spondylitis ([facility]) Dr Hodges Ankylosing spondylitis ([facility]) Arthritis Back pain Cardiomyopathy ([facility]) Nonischemic Congestive Cerebrovascular small vessel disease 08/24/2016 On ASA DVT (deep venous thrombosis) ([facility]) Esophageal reflux Former smoker Kidney stones Major depressive disorder with single episode, in remission ([facility]) 08/24/2016 Morbid obesity with BMI of 40.0-44.9, adult ([facility]) Neuropathy Obstructive sleep apnea syndrome, severe [...] Patient should continue following with his primary ply bander. Follow up as needed. Plan Orders this visit: Office Visit on 08/16/22 CONSULT TO RHEUM/IMMUN DISEASE (M45.0) Ankylosing spondylitis of multiple sites in spine ([facility]) Recommend continuing Methotrexate and leflunomide Recommend starting [...] uveitis coverage. Continue to follow with primary ply bander for medication changes and monitoring. [facility] can continue to assist with treatment plan as needed. Return if symptoms worsen or fail to improve. I spent a total of 60 minutes on the date of the service which included preparing to see the patient, nspk-qw-[id number] patient care, completing clinical documentation, obtaining and/or reviewing separately obtained history, performing a medically appropriate examination, and counseling and educating the patient/family/caregiver. Alexus Nance PA-C [facility] Date: August 16, 2022 Time: 10:00 AM documented in this encounterLutheran Hospital04-26-2023 NoteHNO ID: [id number] Author: Latrice Mondragon MD Service: ? Author [...] findings Latrice Mondragon MD Electrophysiology staff pager [phone] History of Present illness Narrative* Tricia Howard MD - 08/16/2022 8:19 AM EDT Images from the original note were not included. [facility] [place] [facility]ann[facility] Department of Cardiovascular Medicine SECTION OF CLINICAL CARDIOLOGY OUTPATIENT VISIT DATE August 16, 2022 OUTPATIENT VISIT TYPE NEW PRIMARY CARE PHYSICIAN : Silvana Lundberg ([facility]) [address] [place] [address] REFERRING PHYSICIAN: No referring provider defined for [...] 20 years ago. Used to work in [employer]. Fmaily hx of stroke in mother and father. PAST MEDICAL HISTORY Diagnosis Date Ankylosing spondylitis ([facility]) Dr Hodges Ankylosing spondylitis ([facility]) Arthritis Back pain Cardiomyopathy ([facility]) Nonischemic Congestive Cerebrovascular small vessel disease 08/24/2016 On ASA DVT (deep venous thrombosis) ([facility]) Esophageal reflux Former smoker Kidney stones Major depressive disorder with single episode, in remission ([facility]) 08/24/2016 Morbid obesity with BMI of 40.0-44.9, adult ([facility]) Neuropathy Obstructive sleep apnea syndrome, severe [...] lung disease in setting ofankylosing spondylitis and 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 Plan: - obtain echo here, [...] INFORMATION: Kellen Bryan MD Internal Medicine, PGY-3 [phone] 08/16/2022 12:26 PM [facility] STAFF PHYSICIAN NOTE OF PERSONAL INVOLVEMENT [...] SERVICE: August 16, 2022 documented in this encounterLutheran Hospital04-25-2023 Miscellaneous Notes* Telephone Encounter - Geovanni Baker - 08/15/2022 12:46 PM EDT Images received from [employer] by mail. Images uploaded to [employer]. Patient has a future appointment on: 08/16/22. Date of last OV: N/A. Geovanni Baker August 15, 2022 12:46 PM documented in this encounterLutheran Hospital04-20-2023 NoteNYHC- II Continue GDMT- ASA, lipitor, toprol and aldactone. Diuretic therapy- on hold r/t orthostasis- currently euvolemic without exacerbation Monitor daily weights, I&O, fluid restriction 1.5-2L/day, renal function and electrolytesUnKettering Health [facility]04-20-2023 NoteWill add pyridostigmine regime today- d/w pt to start with 60 mg tid, if no improvement of symptoms in 2-3 days may increase to 90 mg tid, again if no improvement in 2-3 days may then increase to 120 mg tid. Continue midodrine. IN light of HFrEF will not start [facility] RTC with Nazia Cohn for further evaluation and managementUnKettering Health [facility]04-20-2023 NotePatient here for follow up tilt table test done at [facility]. Review of Systems Cardiovascular: Positive for chest pain, dyspnea on exertion and near-syncope. Musculoskeletal: Positive for arthritis, back pain and joint pain. Neurological: Positive for dizziness, light-headedness and loss of balance. All other systems reviewed and are negative.[facility] 08-10-2022 NoteUTP CARDIOLOGY PROGRESS NOTE HPI: Elena Felix is a 61 y.o. male here for 1 month f/U for orthostatic hypotension. Known medical h/o HTN, HPL, NICM- HFrEf. Patient here for follow up tilt table test done at [facility]. Midodrine was increased to 5 mg tid [...] 90 mg tid, ag (more content not included)...[facility]04-10-2023 History of Present illness Narrative* Izzy A Stapleton, RN - 07/31/2022 2:30 PM EDT Instructed on objectives and procedure of a tilt study documented in this encounterBON Restlet Work Phone: 1(374) 941-566303-22-2023 NotePatient here for follow up echo and labs. Maite SAHIL Ba started him on midodrine last week after [...] balance. All other systems reviewed and are negative.[facility] 07-12-2022 NoteCardiology Follow Up Progress Note - [facility] HPI: Elena Felix is a 61 [...] all major muscle g (more content not included)...[facility]03-22-2023 Miscellaneous Notes* Telephone Encounter - Geovanni Baker - 07/12/2022 1:54 PM EDT Contacted patient via Phone -no answer; VMM left requesting for cardiac records prior to appointment on 08/16/22. Geovanni Jonathan July 12, 2022 1:54 PM documented in this encounterLutheran Hospital03-15-2023 Milvia RN from cardiac rehab reports patient has been [...] Maria Teresa Ba NP Division of Cardiology, [facility]- [phone] Pager- [phone] Email- [email or web address]03-15-2023 Milvia BRAGG from cardiac rehab reports patient [...] Maria Teresa Ba NP Division of Cardiology, [facility]- [phone] Pager- [phone] Email- [email or web address]03-15-2023 Milvia RN from cardiac rehab states that Mr Felix [...] has continued tachycardia he may benefit from Otto Ba SCREENPLAY WRITER Division of Cardiology, [facility]- [phone] Pager- [phone] Email- [email or web address]02-08-2023 NotePatient here for 6 mo follow up [...] takes both spironolactone and metoprolol in the AM.[facility] 05-31-2022 NoteCardiology Follow Up Progress Note [...] gain, SOB, worsening LE swelling. [DISCONTINUED] HYDROcodone-acetaminophen ([place]) 5-325 mg tablet hydrocodone 5 mg-acetaminophen 325 [...] No focal deficits noted. (more content not included)...[facility]01-16-2023 Evaluation note* Encounter Date Diagnosis Assessment [...] from Dr. Hodges's office and his medications. [facility] Other 01-09-2023 Hospital Discharge instructions Patient Education [...] urethra. Follow these instructions at home: Take hiix-nex-zfvaamq and prescription medicines only as told by [...] 04/09/2006 Document Revised: 03/04/2019 Document Reviewed: 05/14/2017 [employer] Patient Education 2020 [employer] Follow Up Care 09/05/2021 12:02:11 With:ARABELLA MUNIZ, Jerrod Moya, VERENICE Address: [facility] [address] , [place] [address]- [phone] When:Within 1 Year(s) [facility] 09-28-2022 History of Present illness Narrative* Merly Marti MD - 01/18/2022 10:38 AM EDT PATIENT NAME: Elena Felix CLINIC NO.: [id number] ATTENDING PHYSICIAN: Merly Marti MD DATE OF [...] PAST MEDICAL HISTORY Diagnosis Date Ankylosing spondylitis ([facility]) Dr Hodges Ankylosing spondylitis ([facility]) Arthritis Back pain Cardiomyopathy ([facility]) Nonischemic Congestive Cerebrovascular small vessel disease 08/24/2016 On ASA DVT (deep venous thrombosis) ([facility]) Esophageal reflux Former smoker Kidney stones Major depressive disorder with single episode, in remission ([facility]) 08/24/2016 Morbid obesity with BMI of 40.0-44.9, adult ([facility]) Neuropathy Obstructive sleep apnea syndrome, severe [...] 0.95 (L) 1.00 - 4.00 k/uL Final Burke% Date Value Ref Range Status 12/28/2021 12.7 % Final Abs Burke Date Value Ref Range Status 12/28/2021 0.69 [...] here for follow up. Provoked DVT in 2017 and a subsequent short segment distal DVT in 08/2021 which was unprovoked. He was not 100% committed to superintendent container terminal therapy. I reviewed his hypercoag labs and [...] do not hesitate to contact me at [phone]. Merly Marti MD Hematology/Medical Oncology [facility] I spent a total of 15 minutes on the date of the service which included preparing to see the patient, ubnq-wq-wrao patient care, completing clinical documentation, obtaining and/or reviewing separately obtained history, ordering medications, tests, or procedures, and communicating with other HCPs (not separately reported). Medical Decision Making: Medical Decision Making Level: 1 - N/A CC: Silvana Lundberg MD documented in this encounterLutheran Hospital09-12-2022 Miscellaneous Notes* Telephone Encounter - Panfilo Carranza RN - 01/02/2022 3:24 PM EDT Voicemail left re: WILLI message. Pt is encouraged to call back for any additional questions, needs or concerns. Panfilo Carranza RN * Telephone Encounter - Panfilo Carranza RN - 01/02/2022 3:24 PM EDT [...] next appointment as well, documented in this encounterLutheran Hospital09-12-2022 Miscellaneous Notes* Telephone Encounter - Meaghan De La Rosa RN - 01/02/2022 2:25 PM EDT Pt notified of results and that he can stop his anticoagulation therapy. Verbalized understanding and will follow up as scheduled. Meaghan De La Rosa RN * Telephone Encounter - Meaghan De La Rosa RN - 01/02/2022 2:23 PM EDT ----- Message from Melry Marti MD sent at 12/30/2021 5:36 PM EDT ----- Let him know that his work up is all negative and that if he wishes he can stop his anticoagulationand I am happy to discuss further in our next appointment as well, documented in this encounterLutheran Hospital09-07-2022 History of Present illness Narrative* Merly Marti MD - 12/28/2021 2:43 PM EDT PATIENT NAME: Elena Felix [facility] NO.: [id number] ATTENDING PHYSICIAN: Merly Marti MD DATE OF SERVICE: December 28, [address] Merly Marti [address] [place] [address] here is an update on a follow [...] PAST MEDICAL HISTORY Diagnosis Date Ankylosing spondylitis ([facility]) Dr Hodges Ankylosing spondylitis ([facility]) Arthritis Back pain Cardiomyopathy ([facility]) Nonischemic Congestive Cerebrovascular small vessel disease 08/24/2016 On ASA DVT (deep venous thrombosis) ([facility]) Esophageal reflux Former smoker Kidney stones Major depressive disorder with single episode, in remission ([facility]) 08/24/2016 Morbid obesity with BMI of 40.0-44.9, adult ([facility]) Neuropathy Obstructive sleep apnea syndrome, severe [...] 12/15/2016 1.98 1.00 - 4.00 k/uL Final Burke% Date Value Ref Range Status 12/15/2016 10.6 % Final Abs Burke Date Value Ref Range Status 12/15/2016 0.99 [...] unprovoked. He was not 100% committed to superintendent container terminal theraoy and is undergoing evaluation with hyper coag panel to decide if Ok to stop therapy and or he needs to resume, Will follow up on the blood work and discuss with him Thank you for the kind referral. If there are any questions and or concerns please do not hesitate to contact me at [phone]. Merly Marti MD Hematology/Medical Oncology [facility] Ryder spent a total of 20 minutes on the date of the service which included preparing to see the patient, xesr-aj-hbal patient care, completing clinical documentation, obtaining and/or reviewing separately obtained history, ordering medications, tests, or procedures, and communicating with other HCPs (not separately reported). Medical Decision Making: Medical Decision Making Level: 1 - N/A CC: Silvana Lundberg MD documented in this encounterLutheran Hospital08-09-2022 NoteEXAMINATION: XR CHEST 2 V HISTORY: [...] Electronically authenticated by: MAJOR REA Date: 2021-11-29 19:09[facility]06-01-2022 Nurse Note* Annmarie Ralph MA - 09/21/2021 3:46 PM EDT Patient was in ER yesterday due to Bronchitis. Annmarie Ralph MA documented in this encounterLutheran Hospital06-01-2022 History of Present illness Narrative* Merly Marti MD - 09/21/2021 3:40 PM EDT Images from the original note were not included. PATIENT NAME: Elena Felix [facility] NO.: [id number] ATTENDING PHYSICIAN: Merly Marti MD DATE OF SERVICE: September 21, [address] Silvana Lundberg thank you for referring Mr. Elena Felix for an opinion regarding DVT. CHIEF COMPLAINT: DVT HPI: Elena Felix is a 61 year old year old male with past medical history significant for congestive heart failure followed at [facility], benign prostatic hypertrophy as well as ankylosing spondylitis who had undergone a [id number] PSF which was complicated by C. difficile [...] subsequently discharged and subsequently transition to Rivoroxaban. InA2017 patient's IVC filter was removed and since this event was felt to be provoked but extensive proximal clotting he was eventually taken off his anticoagulation after approximately 1 year oftherapy. 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 due [...] PAST MEDICAL HISTORY Diagnosis Date Ankylosing spondylitis ([facility]) Dr Hodges Ankylosing spondylitis ([facility]) Arthritis Back pain Cardiomyopathy ([facility]) Nonischemic Congestive Cerebrovascular small vessel disease 08/24/2016 On ASA DVT (deep venous thrombosis) ([facility]) Esophageal reflux Former smoker Kidney stones Major depressive disorder with single episode, in remission ([facility]) 08/24/2016 Morbid obesity with BMI of 40.0-44.9, adult ([facility]) Neuropathy Obstructive sleep apnea syndrome, severe [...] 12/15/2016 1.98 1.00 - 4.00 k/uL Final Burke% Date Value Ref Range Status 12/15/2016 10.6 % Final Abs Burke Date Value Ref Range Status 12/15/2016 0.99 [...] in the meantime we will continue with Eliquis. Plan on seeing him back in approximately 3 months. Of note he has undergone appropriate screening studies including colonoscopy approximately year agowhich showed a polyp and no malignancy. Dear Dr. Silvana Lundberg thank you for allowing me to participate in Mr. Elena Felix care, if there are any questions or concerns please do not hesitate to contact me at the number below. Merly Marti M.D. Hematology/Medical Oncology [place] [phone] CC: Silvana Lundberg MD I spent a total of 50 minutes on the date of the service which included preparing to see the patient, [id number]-[id number] patient care, completing clinical documentation, obtaining and/or reviewing separately obtained history, performing a medically appropriate examination, counseling and educating the pat ient/family/caregiver and ordering medications, tests, or procedures. documented in this encounterLutheran Hospital08-19-2017 History of Past illness Narrative* Problem Noted Date Resolved Date TIFFANIE (acute kidney injury) 12/09/20162016 Anticoagulation management encounter 10/27/2016 10/30/2016 Wound drainage 09/23/2016 10/30/2016 Pneumonia 12/15/2016 documented as of this encounter (statuses as of 09/16/2021) [address]19-2017 History of Past illness Narrative* Problem Noted Date Resolved Date TIFFANIE (acute kidney injury) 12/09/20162016 Anticoagulation management encounter 10/27/2016 10/30/2016 Wound drainage 09/23/2016 10/30/2016 Pneumonia 12/15/2016 documented as of this encounter (statuses as of 09/29/2021) [address]19-2017 History of Past illness Narrative* Problem Noted Date Resolved Date TIFFANIE (acute kidney injury) 12/09/20162016 Anticoagulation management encounter 10/27/2016 10/30/2016 Wound drainage 09/23/2016 10/30/2016 Pneumonia 12/15/2016 documented as of this encounter (statuses as of 12/28/2021) [address] [address] History of Past illness Narrative* Problem Noted Date Resolved Date TIFFANIE (acute kidney injury) 12/09/20162016 Anticoagulation management encounter 10/27/2016 10/30/2016 Wound drainage 09/23/2016 10/30/2016 Pneumonia 12/15/2016 documented as of this encounter (statuses as of 01/02/2022) [address]19-2017 History of Past illness Narrative* Problem Noted Date Resolved Date TIFFANIE (acute kidney injury) 12/09/20162016 Anticoagulation management encounter 10/27/2016 10/30/2016 Wound drainage 09/23/2016 10/30/2016 Pneumonia 12/15/2016 documented as of this encounter (statuses as of 01/18/2022) [address]19-2017 History of Past illness Narrative* Problem Noted Date Resolved Date TIFFANIE (acute kidney injury) 12/09/20162016 Anticoagulation management encounter 10/27/2016 10/30/2016 Wound drainage 09/23/2016 10/30/2016 Pneumonia 12/15/2016 documented as of this encounter (statuses as of 07/12/2022) [facility]2017 History of Past illness Narrative* Problem Noted Date Resolved Date TIFFANIE (acute kidney injury) 12/09/20162016 Anticoagulation management encounter 10/27/2016 10/30/2016 Wound drainage 09/23/2016 10/30/2016 Pneumonia 12/15/2016 documented as of this encounter (statuses as of 08/15/2022) [address]19-2017 History of Past illness Narrative* Problem Noted Date Resolved Date TIFFANIE (acute kidney injury) 12/09/20162016 Anticoagulation management encounter 10/27/2016 10/30/2016 Wound drainage 09/23/2016 10/30/2016 Pneumonia 12/15/2016 documented as of this encounter (statuses as of 08/16/2022) [address]19-2017 History of Past illness Narrative* Problem Noted Date Resolved Date TIFFANIE (acute kidney injury) 12/09/20162016 Anticoagulation management encounter 10/27/2016 10/30/2016 Wound drainage 09/23/2016 10/30/2016 Pneumonia 12/15/2016 documented as of this encounter (statuses as of 08/16/2022) [facility]2017 History of Past illness Narrative* Problem Noted Date Resolved Date TIFFANIE (acute kidney injury) 12/09/20162016 Anticoagulation management encounter 10/27/2016 10/30/2016 Wound drainage 09/23/2016 10/30/2016 Pneumonia 12/15/2016 documented as of this encounter (statuses as of 08/28/2022) [address]19-2017 History of Past illness Narrative* Problem Noted Date Resolved Date TIFFANIE (acute kidney injury) 12/09/20162016 Anticoagulation management encounter 10/27/2016 10/30/2016 Wound drainage 09/23/2016 10/30/2016 Pneumonia 12/15/2016 documented as of this encounter (statuses as of 08/30/2022) [address]19-2017 History of Past illness Narrative* Problem Noted Date Resolved Date TIFFANIE (acute kidney injury) 12/09/20162016 Anticoagulation management encounter 10/27/2016 10/30/2016 Wound drainage 09/23/2016 10/30/2016 Pneumonia 12/15/2016 documented as of this encounter (statuses as of 09/19/2022) [facility] History of Past illness Narrative* Problem Noted Date Resolved Date TIFFANIE (acute kidney injury) 12/09/20162016 Anticoagulation management encounter 10/27/2016 10/30/2016 Wound drainage 09/23/2016 10/30/2016 Pneumonia 12/15/2016 documented as of this encounter (statuses as of 10/05/2022) [address]19-2017 History of Past illness Narrative* Problem Noted Date Resolved Date TIFFANIE (acute kidney injury) 12/09/20162016 Anticoagulation management encounter 10/27/2016 10/30/2016 Wound drainage 09/23/2016 10/30/2016 Pneumonia 12/15/2016 documented as of this encounter (statuses as of 10/06/2022) [address]19-2017 History of Past illness Narrative* Problem Noted Date Resolved Date TIFFANIE (acute kidney injury) 12/09/20162016 Anticoagulation management encounter 10/27/2016 10/30/2016 Wound drainage 09/23/2016 10/30/2016 Pneumonia 12/15/2016 documented as of this encounter (statuses as of 10/16/2022) [facility] History of Past illness Narrative* Problem Noted Date Resolved Date TIFFANIE (acute kidney injury) 12/09/20162016 Anticoagulation management encounter 10/27/2016 10/30/2016 Wound drainage 09/23/2016 10/30/2016 Pneumonia 12/15/2016 documented as of this encounter (statuses as of 10/17/2022) [address]19-2017 History of Past illness Narrative* Problem Noted Date Resolved Date TIFFANIE (acute kidney injury) 12/09/20162016 Anticoagulation management encounter 10/27/2016 10/30/2016 Wound drainage 09/23/2016 10/30/2016 Pneumonia 12/15/2016 documented as of this encounter (statuses as of 10/17/2022) [address]19-2017 History of Past illness Narrative* Problem Noted Date Resolved Date TIFFANIE (acute kidney injury) 12/09/20162016 Anticoagulation management encounter 10/27/2016 10/30/2016 Wound drainage 09/23/2016 10/30/2016 Pneumonia 12/15/2016 documented as of this encounter (statuses as of 10/23/2022) [facility] History of Past illness Narrative* Problem Noted Date Diagnosed Date Resolved Date TIFFANIE (acute kidney injury) 12/09/2016 Anticoagulation management encounter 10/27/2016 10/30/2016 Wound drainage 09/23/2016 10/30/2016 Pneumonia 12/15/2016 documented as of this encounter (statuses as of 12/01/2022) [facility] History of Past illness Narrative* Problem Noted Date Diagnosed Date Resolved Date TIFFANIE (acute kidney injury) 12/09/2016 Anticoagulation management encounter 10/27/2016 10/30/2016 Wound drainage 09/23/2016 10/30/2016 Pneumonia 12/15/2016 documented as of this encounter (statuses as of 02/05/2023) [facility] History of Past illness Narrative* Problem Noted Date Diagnosed Date Resolved Date TIFFANIE (acute kidney injury) 12/09/2016 Anticoagulation management encounter 10/27/2016 10/30/2016 Wound drainage 09/23/2016 10/30/2016 Pneumonia 12/15/2016 documented as of this encounter (statuses as of 02/23/2023) [facility] [place] [facility] Future Appointments Appointment Date:05/04/2023 08:15:00 AM Scheduled Provider:Jerrod BELL MD Location:[facility] Appointment Type:URO Office Visit [facility] evaluation noteNo Assessments Information Available [facility] Diagnosis Acute deep vein thrombosis (DVT) of distal end of left lower extremity (HCC)- [facility] Acute deep vein thrombosis (DVT) of distal end of left lower extremity (HCC)- Primary [facility] Diagnosis History of DVT (deep vein thrombosis)- Primary Personal history of venous thrombosis and embolism documented in this encounter [facility] [place] [facility]* Diagnosis Orthostatic hypotension POTS (postural orthostatic tachycardia syndrome) Tachycardia, unspecified [facility]* Diagnosis POTS (postural orthostatic tachycardia syndrome)- Primary Tachycardia, unspecified Lightheadedness Dizziness and giddiness POTS (postural orthostatic tachycardia syndrome) Tachycardia, unspecified documented in this encounter [facility] [place] [facility]* Diagnosis Lightheadedness- Primary Dizziness and giddiness Change in blood pressure Other abnormal clinical finding SOB (shortness of breath) Shortness of breath POTS (postural orthostatic tachycardia syndrome) Tachycardia, unspecified Exertional dyspnea Other dyspnea and respiratory abnormality Other secondary pulmonary hypertension ([facility]) Autonomic dysfunction Unspecified disorder of autonomic nervous system Ankylosing spondylitis of multiple sites in spine ([facility]) Ankylosing spondylitis Acute deep vein thrombosis (DVT) of distal end of left lower extremity ([facility]) Morbid obesity with BMI of 40.0-44.9, adult ([facility]) Morbid obesity Lightheadedness Dizziness and giddiness POTS (postural orthostatic tachycardia syndrome) Tachycardia, unspecified documented in this encounter [facility] note* Diagnosis Chronic diastolic congestive heart failure (HCC)- Primary Chronic diastolic heart failure documented in this encounter [facility] note* Diagnosis Ankylosing spondylitis of multiple sites in spine ([facility]) Ankylosing spondylitis documented in this encounter [facility] note* Diagnosis Exertional dyspnea Other dyspnea and respiratory abnormality Other secondary pulmonary hypertension (HCC) documented in this encounter [facility] note* Diagnosis Disturbance of skin sensation- Primary Lightheadedness Dizziness and giddiness Change in blood pressure Other abnormal clinical finding Orthostatic hypotension Tremulousness Abnormal involuntary movements documented in this encounter [facility] note* Diagnosis Radiculopathy, lumbar region- Primary Thoracic or lumbosacral neuritis or radiculitis, unspecified Disturbance of skin sensation 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 Pain in right leg Paresthesia of skin Disturbance of skin sensation documented in this encounter [facility] note* Diagnosis Dilated cardiomyopathy (HCC)- Primary Other primary cardiomyopathies documented in this encounter [facility] note* Diagnosis Ankylosing spondylitis of multiple sites in spine ([facility])- Primary Ankylosing spondylitis documented [facility] assessment information available[facility] Work Phone: Evaluation noteNo [facility] [employer] Other Evaluation note* Diagnosis SOB (shortness of breath)- Primary Shortness of breath Coronary artery disease involving pauma coronary artery of pauma heart without angina pectoris Palpitations documented in this encounter [facility] note* Diagnosis Shortness of breath- Primary Near syncope Syncope and collapse documented in this encounter [facility] note* Diagnosis Exertional dyspnea Other dyspnea and respiratory abnormality documented in this encounter [facility] general Narrative - Reported* Type Description Date Medical History Arthritis of spine Medical History Peripheral neuropathy Medical History Tachycardia Medical History Leg cramps Medical History asthma Surgical History back surgery x 3 Surgical History right hip replaced Surgical History right hand x 2 Hospitalization History see above Hospitalization History infected incision and se psis and blood clot [facility] [employer] Other History general Narrative - Reported* Type [...] incision and se psis and blood clot [facility] [employer] Other Hospital course Narrative No data available for this section [facility] progress note No data available for this section [facility] reason for referral (narrative)* Outpatient Procedure (Routine) - Authorized Specialty Diagnoses / Procedures Referred By Contac t Referred To Contact [facility] Diagnoses POTS (postural orthostatic tachycardia syndrome) Procedures ECG COMPLETE ECG ROUTINE ECG W/LEAST 12 LDS W/I&R Austin Clark MD [address] [place] [address] [facility] [address] [place] [address] Referral ID Status Reason Start Date Expiration Date Visits Requested Visits Authorized [id number] Authorized Auto-Generat ed Referral 08/16/2022 08/16/2023 1 1 [facility] for referral (narrative)* Diagnostic Procedure Only (Routine) - Closed Specialty Diagnoses / Procedures Referred By Chen t Referred To Contact MOLECULAR & FUNCTIONAL IMAGING Diagnoses Exertional dyspnea Other secondary pulmonary hypertension (HCC) Procedures NM LUNG VENT / PERF VQ PULMONARY VENTILATION & PERFUSION IMAGING Tricia Howard MD [address] [place] [address] Molecular [facility] Functional Imaging [address] [place] [address] Referral ID Status Reason Start Date Expiration Date V isits Requested Visits Authorized [id number] Closed Auto-Generate d Referral 08/16/2022 09/15/2023 1 1 [facility] for referral (narrative)* Outpatient Procedure (Routine) - Authorized Specialty Diagnoses / Procedures [facility] Diagnoses Disturbance of skin sensation Procedures EMG(NEURO/NI) NERVE CONDUCTION STUDIES 9-10 STUDIES Anna North APRN.CONSULTING APPLICATION ENGINEER [address] [place] [address] [facility] [place] [address] [place] [address] Referral ID Status Reason Start Date Expiration Date Visits Requested Visits Authorized [id number] Authorized Auto-Generat ed Referral 10/06/2022 10/07/2023 1 1 [facility] for referral (narrative)* Outpatient Procedure (Routine) - Authorized Specialty Diagnoses / Procedures [facility] To [facility] Diagnoses SOB (shortness of breath) Procedures CARDIOPULMONARY EXERCISE TEST PULMONARY STRESS TESTING Tricia Howard MD [address] [place] [address] [facility] [place] [address] [place] [address] Referral ID Status Reason Start Date Expiration Date Visits Requested Visits Authorized [id number] Authorized Auto-Generat ed Referral 11/17/2022 12/17/2023 1 1 [facility] for referral (narrative)* Diagnostic Procedure Only (Routine) - Closed Specialty Diagnoses / Procedures Referred By Contac t Referred To Contact [facility] Diagnoses Exertional dyspnea Procedures ECHO ECHO TTHRC R-T 2D W/WOM-MODE COMPL SPEC&COLR D Tricia Howard MD [address] [place] [address] [facility] [address] [address] Referral ID Status Reason Start Date Expiration Date V isits Requested Visits Authorized [id number] Closed Auto-Generate d Referral 08/31/2022 11/29/2022 1 1 [facility] for visit Narrative* Diagnostic Procedure Only (Routine) - Closed Specialty Diagnoses / Procedures Referred By Contac t Referred To Contact 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 Advance Directive(s) 11/29/2017 5:55 AM Advance Directive(s) 11/19/2017 8:19 AM Advance Directive(s) 11/19/2017 10:21 AM Advance Directive(s) 12/10/2016 12:37 PM Advance Directive(s) 09/24/2016 2:38 PM Advance Directive(s) 08/24/2016 12:03 PM Advance Directive(s) 08/24/2016 12:04 PM Documents on File Type Date Recorded Patient 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 Expl 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 Advance Directive(s) 08/24/2016 12:04 PM Documents on File Type Date Recorded Patient Cardboard Inserter Expl 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 Advance Directive(s) 08/24/2016 12:04 PM [...] Referral Specialty Diagnoses / Procedures Referred By Chen t Referred To Contact MR IMAGING Diagnoses Dilated cardiomyopathy (HCC) Procedures MRI CARDIAC VELOCITY FLOW MAP CARDIAC MRI FOR VELOCITY FLOW MAPPING Tricia Howard MD [address] [place] [address] Mr Imaging Referral ID Status Reason Start Date Expiration Date Visits Requested Visits Authorized [id number] Pending Review Auto-Generat ed Referral 10/17/2022 11/16/2023 1 1 Specialty Diagnoses / Procedures Referred By Chen t Referred To Contact MR IMAGING Diagnoses Dilated cardiomyopathy (HCC) Procedures MRI CARDIAC MORPH FUNC WO/W IVCON CARDIAC MRI W/WO CONTRAST & FURTHER SEQ Tricia Howard MD [address] [place] [address] Mr Imaging Referral ID Status Reason Start Date Expiration Date Visits Requested Visits Authorized [id number] Pending Review Auto-Generat ed Referral 10/17/2022 11/16/2023 1 1 Specialty Diagnoses / Procedures Referred By Contac t Referred To Contact Neurology Diagnoses Lightheadedness Change in blood pressure Procedures CONSULT TO NEUROLOGY OFFICE/OUTPATIENT NEW HIGH MDM 60-74 MINUTES Tricia Howard MD [address] [place] [address] Referral ID Status Reason Start Date Expiration Date Visits Requested Visits Authorized [id number] Authorized PCP Requested Referral 08/16/2022 08/16/2023 1 1 Specialty Diagnoses / Procedures Referred By Contac t Referred To Contact Rheumatology Diagnoses Ankylosing spondylitis of multiple sites in spine (HCC) Procedures CONSULT TO RHEUM/IMMUN DISEASE OFFICE/OUTPATIENT [facility] 60-74 MINUTES Tricia Howard MD [address] [place] [address] Referral ID Status Reason Start Date Expiration Date V isits Requested Visits Authorized [id number] Closed PCP Requested Referral 08/16/2022 08/16/2023 1 1 Specialty Diagnoses / Procedures Referred By Contac t Referred To Contact Diagnoses Lightheadedness POTS (postural orthostatic tachycardia syndrome) Autonomic dysfunction Procedures CONSULT TO [facility] OFFICE/OUTPATIENT [facility] 60-74 MINUTES Tricia Howard MD [address] [place] [address] Referral ID Status Reason Start Date Expiration Date Visits Requested Visits Authorized [id number] Authorized PCP Requested Referral 08/16/2022 08/16/2023 1 1 Specialty Diagnoses / Procedures Referred By Contac t Referred To Contact MOLECULAR & FUNCTIONAL IMAGING Diagnoses Exertional dyspnea Other secondary pulmonary hypertension (HCC) Procedures NM LUNG VENT / PERF VQ PULMONARY VENTILATION & PERFUSION IMAGING Tricia Howard MD [address] [place] [id number] Molecular [facility] Functional Imaging [address] [place] [address] Referral ID Status Reason Start Date Expiration Date Visits Requested Visits Authorized [id number] Pending Review Auto-Generat ed Referral 08/16/2022 09/15/2023 1 1 Specialty Diagnoses / Procedures Referred By Contac t Referred To Contact [facility] Diagnoses Exertional dyspnea Procedures ECHO ECHO TTHRC R-T 2D W/WOM-MODE COMPL SPEC&COLR D Tricia Howard MD [address] [place] [address] [facility] [address] [place] [address] Referral ID Status Reason Start Date Expiration Date Visits Requested Visits Authorized [id number] Pending Review Auto-Generat ed Referral 08/16/2022 08/16/2023 1 1 Specialty Diagnoses / Procedures Referred By Contac t Referred To Contact [facility] Diagnoses Lightheadedness Change in blood pressure Procedures ECG COMPLETE ECG ROUTINE ECG W/LEAST 12 LDS W/I&R Tricia Howard MD [address] [place] [address] [facility] [address] [place] [address] Referral ID Status Reason Start Date Expiration Date V isits Requested Visits Authorized [id number] Closed Auto-Generate d Referral 06/27/2022 06/27/2023 1 1 Specialty Diagnoses / Procedures Referred By Contac t Referred To Contact Diagnoses Orthostatic hypotension POTS (postural orthostatic tachycardia syndrome) Procedures Tilt Table Test Carlos Krishna APRN - JARAD [address] [facility] [address] [facility] [place] [address] Referral ID Status Reason Start Date Expiration Date Visits Re quested Visits Authorized [id number] Closed 07/24/2022 07/24/2023 1 1 Additional Source Comments (unrecognized sect ion and content) No Status Records FoundNo Status Records FoundNo Status Records FoundNo Status Records FoundNo Status Records FoundNo Status Records FoundNo Status Records Found INFORMATION SOURCE (unrecogn ized section and content) DATE CREATED AUTHOR 06/29/2021 [facility] DATE CREATED AUTHOR AUTHOR'S ORGANIZ ATION 08/01/2022 [facility] DATE CREATED AUTHOR AUTHOR'S ORGANIZ ATION 09/07/2022 [facility] DATE CREATED AUTHOR AUTHOR'S ORGANIZ ATION 10/04/2022 [facility] DATE CREATED AUTHOR AUTHOR'S ORGANIZ ATION 04/21/2023 [facility] DATE CREATED AUTHOR AUTHOR'S ORGANIZ ATION 05/18/2023 [facility] DATE CREATED AUTHOR AUTHOR'S ORGANIZ ATION 06/01/2023 [facility] Source Comments (unrecognize d section and content) In the event this informatio n is protected by the Federal Confidentiality of Alcohol and Drug Abuse Patient Records regulations: The Federal rules restrict any use of the information to criminally investigate or prosecute any alcohol or drug abuse patient.[facility] the event this information is protected by the Federal Confidentiality of Alcohol and Drug Abuse Patient Records regulations: The Federal rules restrict any use of the information to criminally investigate or prosecute any alcohol or drug abuse patient.[facility] the event this information is protected by the Federal Confidentiality of Alcohol and Drug Abuse Patient Records regulations: The Federal rules restrict any use of the information to criminally investigate or prosecute any alcohol or drug abuse patient.[facility] the event this information is protected by the Federal Confidentiality of Alcohol and Drug Abuse Patient Records regulations: The Federal rules restrict any use of the information to criminally investigate or prosecute any alcohol or drug abuse patient.[facility] the event this information is protected by the Federal Confidentiality of Alcohol and Drug Abuse Patient Records regulations: The Federal rules restrict any use of the information to criminally investigate or prosecute any alcohol or drug abuse patient.[facility] the event this information is protected by the Federal Confidentiality of Alcohol and Drug Abuse Patient Records regulations: The Federal rules restrict any use of the information to criminally investigate or prosecute any alcohol or drug abuse patient.[facility] the event this information is protected by the Federal Confidentiality of Alcohol and Drug Abuse Patient Records regulations: The Federal rules restrict any use of the information to criminally investigate or prosecute any alcohol or drug abuse patient.[facility] the event this information is protected by the Federal Confidentiality of Alcohol and Drug Abuse Patient Records regulations: The Federal rules restrict any use of the information to criminally investigate or prosecute any alcohol or drug abuse patient.[facility] the event this information is protected by the Federal Confidentiality of Alcohol and Drug Abuse Patient Records regulations: The Federal rules restrict any use of the information to criminally investigate or prosecute any alcohol or drug abuse patient.[facility] the event this information is protected by the Federal Confidentiality of Alcohol and Drug Abuse Patient Records regulations: The Federal rules restrict any use of the information to criminally investigate or prosecute any alcohol or drug abuse patient.[facility] the event this information is protected by the Federal Confidentiality of Alcohol and Drug Abuse Patient Records regulations: The Federal rules restrict any use of the information to criminally investigate or prosecute any alcohol or drug abuse patient.[facility] Hospital[facility] the event this information is protected by the Federal Confidentiality of Alcohol and Drug Abuse Patient Records regulations: The Federal rules restrict any use of the information to criminally investigate or prosecute any alcohol or drug abuse patient.[facility] Hospital[facility] the event this information is protected by the Federal Confidentiality of Alcohol and Drug Abuse Patient Records regulations: The Federal rules restrict any use of the information to criminally investigate or prosecute any alcohol or drug abuse patient.[facility] HospitalIn the event this information is protected by the Federal Confidentiality of Alcohol and Drug Abuse Patient Records regulations: The Federal rules restrict any use of the information to criminally investigate or prosecute any alcohol or drug abuse patient.[facility] HospitalIn the event this information is protected by the Federal Confidentiality of Alcohol and Drug Abuse Patient Records regulations: The Federal rules restrict any use of the information to criminally investigate or prosecute any alcohol or drug abuse patient.[facility] HospitalIn the event this information is protected by the Federal Confidentiality of Alcohol and Drug Abuse Patient Records regulations: The Federal rules restrict any use of the information to criminally investigate or prosecute any alcohol or drug abuse patient.[facility] HospitalIn the event this information is protected by the Federal Confidentiality of Alcohol and Drug Abuse Patient Records regulations: The Federal rules restrict any use of the information to criminally investigate or prosecute any alcohol or drug abuse patient.[facility] HospitalIn the event this information is protected by the Federal Confidentiality of Alcohol and Drug Abuse Patient Records regulations: The Federal rules restrict any use of the information to criminally investigate or prosecute any alcohol or drug abuse patient.[facility] HospitalIn the event this information is protected by the Federal Confidentiality of Alcohol and Drug Abuse Patient Records regulations: The Federal rules restrict any use of the information to criminally investigate or prosecute any alcohol or drug abuse patient.[facility] HospitalIn the event this information is protected by the Federal Confidentiality of Alcohol and Drug Abuse Patient Records regulations: The Federal rules restrict any use of the information to criminally investigate or prosecute any alcohol or drug abuse patient.[facility] HospitalIn the event this information is protected by the Federal Confidentiality of Alcohol and Drug Abuse Patient Records regulations: The Federal rules restrict any use of the information to criminally investigate or prosecute any alcohol or drug abuse patient.[facility] HospitalIn the event this information is protected by the Federal Confidentiality of Alcohol and Drug Abuse Patient Records regulations: The Federal rules restrict any use of the information to criminally investigate or prosecute any alcohol or drug abuse patient.[facility] HospitalIn the event this information is protected by the Federal Confidentiality of Alcohol and Drug Abuse Patient Records regulations: The Federal rules restrict any use of the information to criminally investigate or prosecute any alcohol or drug abuse patient.[facility] Care Teams (unrecognized sec tion and content) Computer Science Instructor Relationship Specialty Start Date End Date Silvana Lundberg MD [address] [place] [address] PCP - General Family Practice 07/15/15 Samuel Burnette Referring Pain Management 07/15/15 Computer Science Instructor Relationship Specialty Start Date End Date Silvana Lundberg MD [address] [place] [address] PCP - General Family Practice 07/15/15 Samuel Burnette Referring Pain Management 07/15/15 Computer Science Instructor Relationship Specialty Start Date End Date Silvana Lundberg MD [address] [place] [address] PCP - General Family Practice 07/15/15 Samuel Burnette Referring Pain Management 07/15/15 Computer Science Instructor Relationship Specialty Start Date End Date Silvana Lundberg MD [address] [place] [address] PCP - General Family Practice 07/15/15 Samuel Burnette Referring Pain Management 07/15/15 Computer Science Instructor Relationship Specialty Start Date End Date Silvana Lundberg MD [address] [place] [address] PCP - General Family Medicine 07/15/15 Samuel Burnette Referring Pain Management 07/15/15 Computer Science Instructor Relationship Specialty Start Date End Date Silvana Lundberg MD [address] [place] [address] PCP - General Family Medicine 07/15/15 Samuel Burnette [address] [place] [address] Referring Pain Management 07/15/15 Computer Science Instructor Relationship Specialty Start Date End Date Silvana Lundberg MD [address] [place] [address] PCP - General Family Medicine 07/25/22 Computer Science Instructor Relationship Specialty Start Date End Date Silvana Lundberg MD [address] [place] [address] PCP - General Family Medicine 07/15/15 Samuel Burnette [address] [place] [address] Referring Pain Management 07/15/15 Maria Teresa Ba, CONSULTING APPLICATION ENGINEER [address] [facility] [place] [address] Family Medicine 08/16/22 Computer Science Instructor Relationship Specialty Start Date End Date Silvana Lundberg MD [address] [place] [address] PCP - General Family Medicine 07/15/15 [facility] [address] [place] [address] Referring Pain Management 07/15/15 Maria Teresa Ba, CONSULTING APPLICATION ENGINEER [address] [place] [address] Family Medicine 08/16/22 Computer Science Instructor Relationship Specialty Start Date End Date Silvana Lundberg MD [address] [place] [address] PCP - General Family Medicine 07/15/15 Samuel Burnette [address] [place] [address] Referring Pain Management 07/15/15 Maria Teresa Ba, CONSULTING APPLICATION ENGINEER [address] [facility] [place] [address] Family Medicine 08/16/22 Computer Science Instructor Relationship Specialty Start Date End Date Silvana Lundberg MD [address] [place] [address] PCP - General Family Medicine 07/15/15 Samuel Burnette [address] [place] [address] Referring Pain Management 07/15/15 Maria Teresa Ba, CONSULTING APPLICATION ENGINEER [address] [place] [address] Family Medicine 08/16/22 Computer Science Instructor Relationship Specialty Start Date End Date Silvana Lundberg MD [address] [place] [address] PCP - General Family Medicine 07/15/15 Samuel Burnette [address] [place] [address] Referring Pain Management 07/15/15 Maria Teresa Ba, CONSULTING APPLICATION ENGINEER [address] [facility] [place] [address] Family Medicine 08/16/22 Computer Science Instructor Relationship Specialty Start Date End Date Silvana Lundberg MD [address] [place] [address] PCP - General Family Medicine 07/15/15 Samuel Burnette [address] [place] [address] Referring Pain Management 07/15/15 Maria Teresa Ba, CONSULTING APPLICATION ENGINEER [address] [place] [address] Family Medicine 08/16/22 Computer Science Instructor Relationship Specialty Start Date End Date Silvana Lundberg MD [address] [place] [address] PCP - General Family Medicine 07/15/15 Samuel Burnette [address] [place] [address] Referring Pain Management 07/15/15 Maria Teresa Ba, CONSULTING APPLICATION ENGINEER [address] [place] [address] Family Medicine 08/16/22 Computer Science Instructor Relationship Specialty Start Date End Date Silvana Lundberg MD [address] [place] [address] PCP - General Family Medicine 07/15/15 Samuel Burnette [address] [place] [address] Referring Pain Management 07/15/15 Maria Teresa Ba, CONSULTING APPLICATION ENGINEER [address] [place] [address] Family Medicine 08/16/22 Computer Science Instructor Relationship Specialty Start Date End Date Silvana Lundberg MD [address] [place] [address] PCP - General Family Medicine 07/15/15 Samuel Burnette [address] [place] [address] Referring Pain Management 07/15/15 Maria Teresa Ba, CONSULTING APPLICATION ENGINEER [address] [facility] 1 [place] [address] Family Medicine 08/16/22 Computer Science Instructor Relationship Specialty Start Date End Date Silvana Lundberg MD [address] [place] [address] PCP - General Family Medicine 07/15/15 Samuel Burnette [address] [place] [address] [phone] Referring Pain Management 07/15/15 Maria Teresa Ba, CONSULTING APPLICATION ENGINEER [address] [facility] [address] [place] [address] Family Medicine 08/16/22 Team Status: Inactive Member Role Status Dates Silvana Lundberg MD Attending Provider Active Computer Science Instructor Relationship Specialty Start Date End Date Silvana Lundberg MD [address] [place] [address] PCP - General Family Medicine 07/15/15 Samuel Burnette [address] [place] [address] Referring Pain Management 07/15/15 Maria Teresa Ba, CONSULTING APPLICATION ENGINEER [address] [facility] [address] [place] [address] Family Medicine 08/16/22 Team Status: Active Member Role Status Dates PHYSICIAN NO FAMILY Primary Care Provider Active Team Status: Inactive Member Role Status Dates Silvana Lundberg MD Attending Provider Active PHYSICIAN NO FAMILY Primary Care Provider Active Team Status: Inactive Member Role Status Dates PHYSICIAN NO FAMILY Primary Care Provider Active Brad Hodges MD Attending Provider Active Computer Science Instructor Relationship Specialty Start Date End Date Silvana Lundberg MD [address] [place] [address] PCP - General Family Medicine 07/15/15 Samuel Burnette [address] [place] [address] Referring Pain Management 07/15/15 Maria Teresa Ba CNP [address] [facility] [address] [place] [address] [facility] Medicine 08/16/22 Computer Science Instructor Relationship Specialty Start Date End Date Silvana Lundberg MD [address] [place] [address] PCP - General Family Medicine 07/15/15 Samuel Burnette [address] [place] [address] Referring Pain Management 07/15/15 Maria Teresa Ba CNP [address] [facility] 1 [place] [address] Family Medicine 08/16/22 Reason for [...] - JARAD [address] [facility] [place] [address] Referral ID Status Reason Start Date Expiration Date V isits Requested Visits Authorized [id number] Not Required - RTA 07/24/2022 07/24/2023 1 [...] OXYGEN SATURATION AND CARDIAC OUTPUT Hosp [employer] Supervisor Steno Pool [address] [id number] Referral ID Status Reason Start Date Expiration Date Visits Re quested Visits Authorized [id number] 1 1 Reason Comments Ankylosing Spondylitis Specialty Diagnoses / Procedures Referred By Contac t Referred To Contact Rheumatology Diagnoses Ankylosing spondylitis of multiple sites in spine (HCC) Procedures CONSULT TO RHEUM/IMMUN DISEASE OFFICE/OUTPATIENT NEW HIGH MDM 60-74 MINUTES Tricia Howard MD [address] [place] [address] Referral ID Status Reason Start Date Expiration Date V isits Requested Visits Authorized [id number] Closed PCP Requested Referral 08/16/2022 08/16/2023 1 1 Reason Comments Radiology NM Specialty Diagnoses / Procedures Referred By Contac t Referred To Contact MOLECULAR & FUNCTIONAL IMAGING Diagnoses Exertional dyspnea Other secondary pulmonary hypertension (HCC) Procedures NM LUNG VENT / PERF VQ PULMONARY VENTILATION & PERFUSION IMAGING Tricia Howard MD [address] [place] [address] Molecular & Functional Imaging [address] [place] [address] Referral ID Status Reason Start Date Expiration Date V isits Requested Visits Authorized [id number] Closed Auto-Generate d Referral 08/16/2022 09/15/2023 1 1 Reason Comments New Patient Specialty Diagnoses / Procedures Referred By Contac t Referred To Contact Neurology Diagnoses Lightheadedness Change in blood pressure Procedures CONSULT TO NEUROLOGY OFFICE/OUTPATIENT NEW HIGH MDM 60-74 MINUTES Tricia Howard MD [address] [place] [address] Referral ID Status Reason Start Date Expiration Date V isits Requested Visits Authorized [id number] Closed PCP Requested Referral 08/16/2022 08/16/2023 1 1 Reason Onset Date Comments EMG 10/16/2022 Specialty Diagnoses / Procedures Referred By Contac t Referred To Contact [facility] Diagnoses Disturbance of skin sensation Procedures EMG(NEURO/NI) NERVE CONDUCTION STUDIES 9-10 STUDIES Anna North, [place] [address] [place] [address] Referral ID Status Reason Start Date Expiration Date V isits Requested Visits Authorized [id number] Closed Auto-Generate d Referral 10/06/2022 10/07/2023 1 [...] BE BASED ON THE PRIMARY CLINICAL RECORDS. [facility]. provides no warranty or guarantee of the accuracy or completeness of information in this document."
== END 2023-07-09 08:49 | disposition home or self-care (01) ==
LOC: EC 08:48
PROVIDERS: PCP Family Medicine; Visit Provider Orthopaedic Surgery
DX: S72.052K Unspecified fracture of head of left femur, subsequent encounter for closed fracture with nonunion (principal)
CPT/HCPCS: 73502

== ENCOUNTER 2023-08-02 11:41 | Outpatient (OUT) | payer MEDICARE, SELFPAY ==
[2023-08-02 12:55] LABS: Prostate Specific Antigen Dx 1.08 ng/mL (<=4.00)
== END 2023-08-02 11:42 | disposition home or self-care (01) ==
PROVIDERS: PCP Family Medicine; Visit Provider Urology
DX: N40.1 Benign prostatic hyperplasia with lower urinary tract symptoms (principal)
CPT/HCPCS: 36415; 84153

== ENCOUNTER 2023-08-20 08:25 | Outpatient (OUT) | payer MEDICARE, SELFPAY ==
--- NOTE | 2023-08-20 | XR_ITS ---
The [address] [address] Patient Name: ELENA FELIX MRN: [id number] date: 1960 Sex: M Assigned Patient Location: Current Patient Location: Accession/Order Number: [id number] Exam Date: 08/20/2023 08:25 Report Date: 08/21/2023 06:17 At the request of: ASHER SHEETS Procedure: XR hip LT 2V w/ pelvis PROCEDURE: XR hip LT 2V w/ pelvis HISTORY: LEFT HIP AND PELVIS PAIN ; follow-up COMPARISON: XR hip left 07/09/2023 FINDINGS: BONES:Prior right hip replacements and repair of left femoral neck; no appreciable hardware fracture loosening. Mild degenerative changes of left hip joint. Mechanical fusion of lower lumbar spine and right sacroiliac joint. SOFT TISSUES:No visible soft tissue swelling. EFFUSION:None visible. OTHER: Negative. XR/XR hip LT 2V w/ pelvis IMPRESSION: 1. Stable surgical changes without evidence of hardware failure or change in alignment. 2. No appreciable acute abnormality. Electronically authenticated by: ASHER SOLANO Date: 08/21/2023 06:17
== END 2023-08-20 08:26 | disposition home or self-care (01) ==
LOC: EC 08:25
PROVIDERS: PCP Family Medicine; Visit Provider Orthopaedic Surgery
DX: S72.042 Displaced fracture of base of neck of left femur (principal); S72.05 Unspecified fracture of head of femur
CPT/HCPCS: 73502

== ENCOUNTER 2023-08-27 09:25 | Outpatient (OUT) | payer MEDICARE, SELFPAY ==
--- NOTE | 2023-08-27 09:37 | CT_ITS ---
The [address] [address] Patient Name: ELENA FELIX MRN: [id number] date: 1960 Sex: M Assigned Patient Location: CT Current Patient Location: CT Accession/Order Number: [id number] Exam Date: 08/27/2023 09:32 Report Date: 08/27/2023 10:26 At the request of: ASHER SHEETS Procedure: CT hip LT wo con EXAMINATION: CT hip LT wo con HISTORY: Displaced Fracture Of Base Of Neck Of Left Femur S72.042G COMPARISON: 05/10/2023 TECHNIQUE: Multi-planar CT images were created without IV contrast. Dose reduction techniques were achieved by using automated exposure control and/or adjustment of mA and/or kV according to patient size and/or use of iterative reconstruction technique. FINDINGS: BONES: Stable complex left subcapital and left femoral neck fracture with internal fixation utilizing an antegrade intramedullary nail with proximal dynamic compression screw. There is 4 bone formation with incomplete bony bridging across the fracture plane. The left hip is intact with no dislocation. Degenerative changes of the acetabulum with marginal osteophyte formation and joint space narrowing SOFT TISSUES: Negative. No visible soft tissue swelling. EFFUSION: None visible. OTHER: Negative. CT/CT hip LT wo con IMPRESSION: Incomplete bony bridging of a stable complex left femoral subcapital/neck fracture Electronically authenticated by: MAJOR REA Date: 08/27/2023 10:26
== END 2023-08-27 09:26 | disposition home or self-care (01) ==
LOC: CT 09:26
PROVIDERS: PCP Family Medicine; Visit Provider Orthopaedic Surgery
DX: S72.042 Displaced fracture of base of neck of left femur (principal)
CPT/HCPCS: 73700

== ENCOUNTER 2023-09-10 10:32 | Outpatient (OUT) | payer MEDICARE, SELFPAY ==
--- NOTE | 2023-09-10 | XR_ITS ---
The [address] [address] Patient Name: ELENA FELIX MRN: [id number] date: 1960 Sex: M Assigned Patient Location: Current Patient Location: Accession/Order Number: [id number] Exam Date: 09/10/2023 10:35 Report Date: 09/11/2023 08:13 At the request of: ASHER SHEETS Procedure: XR shoulder LT min 2V PROCEDURE: XR shoulder LT min 2V HISTORY: LEFT SHOULDER PAIN COMPARISON: None. FINDINGS: BONES:Narrowing of the acromioclavicular joint with prominent undersurface osteophytes. Suspect narrowing of the glenohumeral joint. No fracture or dislocation. SOFT TISSUES:No visible soft tissue swelling. EFFUSION:None visible. OTHER: Negative. XR/XR shoulder LT min 2V IMPRESSION: 1. No appreciable acute bone abnormality. 2. Degenerative changes of the acromioclavicular joint which would predispose to rotator cuff injury. Electronically authenticated by: ASHER SOLANO Date: 09/11/2023 08:13
== END 2023-09-10 10:33 | disposition home or self-care (01) ==
LOC: EC 10:32
PROVIDERS: PCP Family Medicine; Visit Provider Orthopaedic Surgery
DX: M25.512 Pain in left shoulder (principal); M19.012 Primary osteoarthritis, left shoulder
CPT/HCPCS: 73030

== ENCOUNTER 2024-04-07 13:36 | Outpatient (OUT) | payer MEDICARE, SELFPAY ==
[2024-04-07 14:01] LABS: Basophils Percent Auto 0.5 % (0.2-2.0); Eosinophils Absolute Auto 0.4 10^3/uL (0.0-0.7); Eosinophils Percent Auto 5.7 % (0.9-7.0); Hemoglobin 12.3 g/dL (14.0-18.0); Immature Granulocytes Abs Auto 0.04 10^3/uL (0.00-0.03); Immature Granulocytes Pct Auto 0.6 % (0.0-0.5); Lymphocytes Absolute Auto 1.1 10^3/uL (1.2-3.8); Lymphocytes Percent Auto 16.9 % (20.5-60.0); Mean Corpuscular HGB Conc 31.5 g/dL (29.9-35.2); Mean Corpuscular Hemoglobin 31.5 pg (25.9-34.0); Mean Corpuscular Volume 99.7 fL (80.0-94.0); Mean Platelet Volume 9.1 fL (9.5-13.5); Monocytes Absolute Auto 0.7 10^3/uL (0.3-0.8); Monocytes Percent Auto 10.9 % (1.7-12.0); Neutrophils Absolute Auto 4.2 10^3/uL (1.4-6.5); Neutrophils Percent Auto 65.4 % (43.0-75.0); Platelet Count 183 10^3/uL (150-450); Red Blood Count 3.91 10^6/uL (4.70-6.10); Red Cell Distribution Width 14.7 % (11.0-15.0); White Blood Count 6.5 10^3/uL (4.0-11.0)
[2024-04-07 14:07] LABS: Erythrocyte Sedimentation Rate 53 mm/hr (<=20)
[2024-04-07 14:42] LABS: Alanine Aminotransferase 31 U/L (16-63); Albumin Globulin Ratio 0.7; Albumin Level 2.7 g/dL (3.4-5.0); Alkaline Phosphatase 90 U/L (46-116); Anion Gap 11.5; Aspartate Amino Transferase 17 U/L (15-37); BUN Creatinine Ratio 17.3; Bilirubin Total 0.4 mg/dL (0.2-1.0); Carbon Dioxide 29.2 mmol/L (21.0-32.0); Chloride 108 mmol/L (98-107); Estimated GFR (African America >60 (>=60 mL/min/1.73m^2); Estimated GFR (Non-African Ame 57 (>=60 mL/min/1.73m^2); Glucose 105 mg/dL (74-106); Potassium 4.7 mmol/L (3.5-5.1); Sodium 144 mmol/L (136-145); Total Protein 6.7 g/dL (6.4-8.2)
== END 2024-04-07 13:37 | disposition home or self-care (01) ==
LOC: LAB 13:38
PROVIDERS: PCP Family Medicine; Visit Provider Internal Medicine Rheumatology
DX: M45.0 Ankylosing spondylitis of multiple sites in spine (principal); M15.0 Primary generalized (osteo)arthritis; Z79.899 Other long term (current) drug therapy
CPT/HCPCS: 36415; 80053; 85025; 85652

== ENCOUNTER 2024-05-28 12:51 | Emergency (ER) | payer MEDICARE, SELFPAY ==
[2024-05-28] VITALS (20 sets, daily range): BP systolic 122–144; BP diastolic 88–101; PULSE 95–130; TEMP 36.8; O2SAT 96; BMI 39.8
--- NOTE | 2024-05-28 13:00 | ECG_ITS ---
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
--- NOTE | 2024-05-28 13:18 | CT_ITS ---
[address] [address] Patient Name: ELENA FELIX MRN: [id number] date: 1960 Sex: M Assigned Patient Location: ER Current Patient Location: ER Accession/Order Number: [id number] Exam Date: 05/28/2024 14:24 Report Date: 05/28/2024 15:00 At the request of: PANFILO GARCIA Procedure: CT abdomen pelvis w con EXAMINATION: CT abdomen pelvis w con HISTORY: Vomiting and diarrhea COMPARISON: CT abdomen pelvis 05/12/2020 TECHNIQUE: Axial, Coronal, and Sagittal images were obtained without and/or with IV contrast as indicated by examination type. Dose reduction techniques were achieved by using automated exposure control and/or adjustment of mA and/or kV according to patient size and/or use of iterative reconstruction technique. FINDINGS: LUNG BASES: No visible pulmonary or pleural disease. LIVER: No enlargement, atrophy, suspicious density, or significant focal lesion. BILIARY: Small stone within gallbladder. No appreciable inflammatory changes. PANCREAS: No lesion, fluid collection, or abnormal duct dilatation. SPLEEN: Stable hypodense areas within the spleen favoring cysts. ADRENALS: No mass or enlargement. KIDNEYS: Right kidney inferior pole cyst. No mass, obstruction, or calcification. BOWEL/MESENTERY: Empty stomach, small bowel, and colon. Innumerable diverticula involving the distal descending and sigmoid colon without acute inflammatory changes. No visible mass, obstruction, or bowel wall thickening. Normal appendix. AORTA/VASCULAR: No aneurysm or dissection. RETROPERITONEUM: No mass or adenopathy. LYMPH NODES: No adenopathy. URINARY BLADDER: No visible focal wall thickening, lesion, or calculus. PELVIC ORGANS: No visible mass. Pelvic organs appropriate for patient age. ABDOMINAL WALL: Small fat filled left inguinal hernia without strangulation. BONES: Mechanical fusion of lower thoracic and lumbar spine via multiple pedicle screws and rods; no appreciable hardware fracture loosening. Remote mild compression fracture of L3. Multilevel degenerative disc disease and facet arthropathy. Posterior decompression throughout the lower thoracic and lumbar spine. OTHER: Negative. CT/CT abdomen pelvis w con IMPRESSION: 1. Empty stomach, small bowel, colon consistent with patient history. 2. Marked diverticulosis of distal colon; no acute inflammatory changes. 3. No appreciable colitis, enteritis, or suspicious inflammatory changes. 4. Cholelithiasis. Electronically authenticated by: ASHER SOLANO Date: 05/28/2024 15:00
--- NOTE | 2024-05-28 13:21 | ED_ITS ---
HPI - Nausea/Vomiting/Diarrhea General Chief complaint: Nausea/Vomiting/Diarrhea Stated complaint: DIARRHEA VOMITTING Time Seen by Provider: 05/28/24 13:08 Source: patient Mode of arrival: Wheelchair History of Present Illness HPI Narrative: Patient is a 63-year-old male who presents to the emergency department for a 4- day history of diarrhea and vomiting. He states he called his primary care provider office and they referred him to the ER, he was not ordered to have any testing or medications. He denies abdominal pain, fevers or upper respiratory symptoms. No sick contacts in the home. He denies any blood in his stool. He states he has not had diarrhea in at least 1 to 2 days but continues to have dry heaving. No urinary symptoms, flank or back pain. Related Data Home Medications ?Medication ?Instructions ?Recorded ?Confirmed aspirin 81 mg tablet,delayed 81 mg PO DAILY 02/18/23 05/28/24 release (Adult Aspirin Regimen) atorvastatin 40 mg tablet 40 mg PO DAILY 02/18/23 05/28/24 duloxetine 60 mg capsule,delayed 60 mg PO BID 02/18/23 05/28/24 release folic acid 1 mg tablet 1 mg PO DAILY 02/18/23 05/28/24 gabapentin 300 mg capsule 900 mg PO Q12H neuropathy 02/18/23 05/28/24 leflunomide 20 mg tablet (Arava) 20 mg PO DAILY 02/18/23 05/28/24 methotrexate sodium 2.5 mg tablet 12.5 mg PO .weekly 02/18/23 05/28/24 metoprolol succinate 100 mg 50 mg PO DAILY HTN 02/18/23 05/28/24 tablet,extended release 24 hr omeprazole 20 mg capsule,delayed 20 mg PO DAILY 02/18/23 05/28/24 release spironolactone 25 mg tablet 12.5 mg PO DAILY 02/18/23 05/28/24 tamsulosin 0.4 mg capsule 0.4 mg PO BID 02/18/23 05/28/24 venlafaxine 150 mg 150 mg PO DAILY 02/18/23 05/28/24 capsule,extended release 24 hr (Effexor XR) aripiprazole 5 mg tablet mg 05/28/24 Previous Rx's ?Medication ?Instructions ?Recorded hyoscyamine sulfate 0.125 mg 0.125 mg PO Q6H PRN abdominal pain 05/28/24 tablet (Levsin) #12 tabs ondansetron 4 mg disintegrating 4 mg PO Q6H PRN nausea and 05/28/24 tablet vomiting #12 tabs Allergies Allergy/AdvReac Type Severity Reaction Status Date / Time morphine Allergy Intermediate Hallucinati Verified 05/28/24 12:56 ng lisinopril Allergy Swelling Verified 05/28/24 12:56 of Lip/Tongue/Throat Review of Systems ROS Constitutional Denies: fever or chills Ears, nose, mouth, and throat Denies: throat pain or nasal congestion Cardiovascular Denies: chest pain Gastrointestinal Reports: nausea, vomiting and diarrhea; Denies: abdominal pain Musculoskeletal Denies: back pain Integumentary/Breast Denies: rash Neurological Denies: numbness in extremities or weakness in extremities Hematologic/Lymphatic Denies: easy bruising or easy bleeding PFSH [facility] Medical History (Updated 05/28/24 @ 16:02 by FATEMEH Faria) Nonischemic cardiomyopathy ?I42.8 - Other cardiomyopathies (ICD-10) Ankylosing spondylitis ?M45.9 - Ankylosing spondylitis of unspecified sites in spine (ICD-10) DVT (deep venous thrombosis) ?I82.409 - Acute embolism and thrombosis of unspecified deep veins of unspecified lower extremity (ICD-10) Orthostatic hypotension ?I95.1 - Orthostatic hypotension (ICD-10) Asthma ?J45.909 - Unspecified asthma, uncomplicated (ICD-10) Depression ?F32.A - Depression, unspecified (ICD-10) 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890 - Other specified postprocedural states (ICD-10) Family History (Updated 02/18/23 @ 02:20 by Doreen Langley) Father Family history of diabetes mellitus Family history of stroke Aunt Family history of COPD (chronic obstructive pulmonary disease) Sister Family history of COPD (chronic obstructive pulmonary disease) Aunt Family history of cancer Mother Family history of cancer Social History Within the past year, how often did you have a drink containing alcohol: monthly or less Within the past year, how many standard drinks containing alcohol did you have on a typical day: 1 or 2 Within the past year, how often did you have six or more drinks on one occasion: less than monthly Total score: 1 Score interpretation: A score less than 4 is consistent with normal alcohol consumption. Smoking status: Former smoker Second hand tobacco smoke exposure: No Non-prescribed substance use: denies use Previous occupational history: disability Known occupational exposures/hazards: No Highest level of school completed/degree received: high school graduate Do you want help with school or training: No Are you now , , , , never or living with a partner: In a typical week, how many times do you talk on the telephone with family, friends, or neighbors: 3 or more times per week How often do you get together with friends or relatives: 3 or more times per week How often do you attend rastafari or hindu services: never Do you belong to any clubs or organizations such as rastafari groups unions, fraternal or athletic groups, or school groups: no Total score: 2 Score interpretation: A score of greater than or equal to 2 indicates the lowest level of social isolation. Little interest or pleasure in doing things: not at all Feeling down, depressed, or hopeless: not at all Feel stressed/tense/nervous/anxious/difficulty sleeping: very much Due to disability, difficulty making decisions: No Do you think of yourself as: straight/heterosexual Gender Identity: male Exam Narrative Exam Narrative: Gen.: Awake, alert, in no distress Head: Normocephalic, atraumatic ENT: Moist mucous membranes Respiratory: No respiratory distress, lungs clear bilaterally Cardio: Regular rate and rhythm Gastrointestinal: Abdomen is soft, nondistended and nontender to palpation Extremities: Moves extremities equally Psych: Normal mood and affect Neuro: No focal neuro deficit Skin: Warm, dry, intact Constitutional Vital Signs, click to edit/add: Last Vital Signs Temp 98.2 F 05/28/24 12:59 Pulse 96 H 05/28/24 15:50 Resp 23 H 05/28/24 15:50 BP 141/90 05/28/24 15:30 Pulse Ox 96 05/28/24 13:20 O2 Del Method Room Air 05/28/24 12:59 Course Vital Signs Vital signs: Vital Signs Temperature 98.2 F 05/28/24 12:59 Pulse Rate 130 H 05/28/24 12:59 Respiratory Rate 18 05/28/24 12:59 Blood Pressure 140/88 05/28/24 12:59 Pulse Oximetry 96 05/28/24 12:59 Oxygen Delivery Method Room Air 05/28/24 12:59 Temperature 98.2 F 05/28/24 12:59 Pulse Rate 96 H 05/28/24 15:50 Respiratory Rate 23 H 05/28/24 15:50 Blood Pressure 141/90 05/28/24 15:30 Pulse Oximetry 96 05/28/24 13:20 Oxygen Delivery Method Room Air 05/28/24 12:59 MDM - Nausea/Vomiting/Diarrhea MDM Narrative Medical decision making narrative: Patient was noted to be intermittently tachycardic, on his previous admission for hip fracture he was noted to have a history of fast heart rate, orthostatic hypotension and cardiomyopathy. He does not complain of shortness of breath, chest pain or dizziness. He has had no episodes of emesis in the emergency department and no episodes of diarrhea. Labs are stable, he was treated with 2 L of IV fluids, Zofran and tolerated ice chips. CT with evidence of diarrheal illness, cholelithiasis with no evidence of cholecystitis. Patient has no right upper quadrant tenderness but he was made aware of the CT finding. He is resting comfortably on reevaluation and will be discharged home with Zofran and Levsin. Follow-up with PCP and return to the emergency department if symptoms change or worsen. SUPERVISED APC VISIT, PHYSICIAN ATTESTATION: Based on the medical record the care appears appropriate. ? Medical Records Attestation: I reviewed the patient's medical records. Lab Data Attestation: I reviewed the patient's lab results. Labs: Lab Results 05/28/24 05/28/24 05/28/24 Range/Units 13:54 14:22 15:06 WBC 5.3 (4.0-11.0) 10^3/uL RBC 4.00 L (4.70-6.10) 10^6/uL Hgb 12.7 L (14.0-18.0) g/dL Hct 38.6 L (42.0-54.0) % MCV 96.5 H (80.0-94.0) fL MCH 31.8 (25.9-34.0) pg MCHC 32.9 (29.9-35.2) g/dL RDW 15.0 (11.0-15.0) % Plt Count 200 (150-450) 10^3/uL MPV 9.7 (9.5-13.5) fL Neut % (Auto) 73.5 (43.0-75.0) % Lymph % (Auto) 14.8 L (20.5-60.0) % [facility] % (Auto) 9.9 (1.7-12.0) % Eos % (Auto) 1.0 (0.9-7.0) % Baso % (Auto) 0.6 (0.2-2.0) % Neut # (Auto) 3.9 (1.4-6.5) 10^3/uL Lymph # (Auto) 0.8 L (1.2-3.8) 10^3/uL [facility] # (Auto) 0.5 (0.3-0.8) 10^3/uL Eos # (Auto) 0.1 (0.0-0.7) 10^3/uL Baso # (Auto) 0.0 (0.0-0.1) 10^3/uL Abs Immat Gran (auto) 0.01 (0.00-0.03) 10^3/uL Imm/Tot Granulo (auto) 0.2 (0.0-0.5) % Sodium 141 (136-145) mmol/L Potassium 4.0 (3.5-5.1) mmol/L Chloride 106 (98-107) mmol/L Carbon Dioxide 21.8 (21.0-32.0) mmol/L Anion Gap 17.2 BUN 14.0 (7.0-18.0) mg/dL Creatinine 1.32 H (0.70-1.30) mg/dL Est GFR ( Amer) >60 (>=60 mL/min/1.73m^2) Est GFR (Non-Af Amer) 55 L (>=60 mL/min/1.73m^2) BUN/Creatinine Ratio 10.6 Glucose 122 H (74-106) mg/dL Lactate 1.6 (0.4-2.0) mmol/L Calcium 8.6 (8.5-10.1) mg/dL Total Bilirubin 0.7 (0.2-1.0) mg/dL AST 39 H (15-37) U/L ALT 33 (16-63) U/L Alkaline Phosphatase 80 (46-116) U/L Total Protein 7.0 (6.4-8.2) g/dL Albumin 2.9 L (3.4-5.0) g/dL Globulin 4.1 g/dL Albumin/Globulin Ratio 0.7 Lipase 24.0 (16.0-77.0) U/L Urine Color Yellow (YELLOW) Urine Clarity Clear (CLEAR) Urine pH 5.5 (5.0-9.0) Ur Specific [place] 1.025 (1.005-1.025) Urine Protein 30 A (NEG/TRACE) mg/dL Urine Glucose (UA) Negative (NEGATIVE) mg/dL Urine Ketones 40 A (NEGATIVE) mg/dL Urine Occult Blood Negative (NEGATIVE) Urine Nitrite Negative (NEGATIVE) Urine Bilirubin Small A (NEGATIVE) Urine Urobilinogen 0.2 (0.2-1.0) EU/dL Ur Leukocyte Esterase Negative (NEGATIVE) Urine RBC None seen (0-2) #/HPF Urine WBC None seen (NONE SEEN) #/HPF Ur Squamous Epith Cells Rare (NONE/RARE) #/LPF Urine Crystals None seen (None Seen) #/HPF Urine Bacteria Trace A (NONE SEEN) #/HPF Urine Casts Seen A (NONE SEEN) #/LPF Hyaline Casts Few Urine Mucus Moderate A (NONE SEEN) Ur Culture Indicated? No Imaging Data CT scan - abdomen: Attestation: I have reviewed the pertinent imaging results. Radiologist's impression: ITS Impressions Abdomen/Pelvis CT 05/28/24 13:18 IMPRESSION: 1. Empty stomach, small bowel, colon consistent with patient history. 2. Marked diverticulosis of distal colon; no acute inflammatory changes. 3. No appreciable colitis, enteritis, or suspicious inflammatory changes. 4. Cholelithiasis. Electronically authenticated by: ASHER SOLANO Date: 05/28/2024 15:00 Discharge Plan Discharge Chief Complaint: Nausea/Vomiting/Diarrhea Clinical Impression: Nausea & vomiting, Enteritis Patient Disposition: Home, Self-Care Time of Disposition Decision: 16:02 Condition: Good Prescriptions / Home Meds: New hyoscyamine sulfate [Levsin] 0.125 mg tablet 0.125 mg PO Q6H PRN (Reason: abdominal pain) Qty: 12 0RF ondansetron 4 mg tablet,disintegrating 4 mg PO Q6H PRN (Reason: nausea and vomiting) Qty: 12 0RF No Action atorvastatin 40 mg tablet 40 mg PO DAILY gabapentin 300 mg capsule 900 mg PO Q12H folic acid 1 mg tablet 1 mg PO DAILY duloxetine 60 mg capsule,delayed release(DR/EC) 60 mg PO BID metoprolol succinate 100 mg tablet extended release 24 hr 50 mg PO DAILY methotrexate sodium 2.5 mg tablet 12.5 mg PO .weekly Patient Comments: takes on Sundays omeprazole 20 mg capsule,delayed release(DR/EC) 20 mg PO DAILY spironolactone 25 mg tablet 12.5 mg PO DAILY tamsulosin 0.4 mg capsule 0.4 mg PO BID aspirin [Adult Aspirin Regimen] 81 mg tablet,delayed release (DR/EC) 81 mg PO DAILY leflunomide [Arava] 20 mg tablet 20 mg PO DAILY venlafaxine [Effexor XR] 150 mg capsule,extended release 24hr 150 mg PO DAILY aripiprazole 5 mg tablet Print Language: [place] Instructions: Enteritis (ED) Referrals: Mary Carmen Kaur MD [Primary Care Provider] - 1 week
[2024-05-28] MEDS: 0.9 % SODIUM CHLORIDE 1,000 ML 1000 ML IV ×2 (13:28→15:13)
[2024-05-28] MEDS: ONDANSETRON PF 4 MG/2 ML VIAL IV ×2 (13:28→15:27)
[2024-05-28] MEDS: FAMOTIDINE/PF 20 MG/2 ML VIAL IV (13:28)
--- NOTE | 2024-05-28 13:37 | PC.NURSE ---
Pt rteports diarrhea stipped a couple fo days ago and only having dry heaves at tis time. No Dry heaves observed while at bedside
[2024-05-28 14:17] LABS: Alanine Aminotransferase 33 U/L (16-63); Albumin Globulin Ratio 0.7; Albumin Level 2.9 g/dL (3.4-5.0); Alkaline Phosphatase 80 U/L (46-116); Anion Gap 17.2; Aspartate Amino Transferase 39 U/L (15-37); BUN Creatinine Ratio 10.6; Bilirubin Total 0.7 mg/dL (0.2-1.0); Calcium 8.6 mg/dL (8.5-10.1); Carbon Dioxide 21.8 mmol/L (21.0-32.0); Chloride 106 mmol/L (98-107); Estimated GFR (African America >60 (>=60 mL/min/1.73m^2); Estimated GFR (Non-African Ame 55 (>=60 mL/min/1.73m^2); Globulin 4.1 g/dL; Glucose 122 mg/dL (74-106); Sodium 141 mmol/L (136-145)
[2024-05-28 14:19] LABS: Lactate/Lactic Acid 1.6 mmol/L (0.4-2.0)
[2024-05-28 14:27] LABS: Basophils Percent Auto 0.6 % (0.2-2.0); Eosinophils Absolute Auto 0.1 10^3/uL (0.0-0.7); Hematocrit 38.6 % (42.0-54.0); Hemoglobin 12.7 g/dL (14.0-18.0); Immature Granulocytes Abs Auto 0.01 10^3/uL (0.00-0.03); Immature Granulocytes Pct Auto 0.2 % (0.0-0.5); Lymphocytes Absolute Auto 0.8 10^3/uL (1.2-3.8); Lymphocytes Percent Auto 14.8 % (20.5-60.0); Mean Corpuscular HGB Conc 32.9 g/dL (29.9-35.2); Mean Corpuscular Hemoglobin 31.8 pg (25.9-34.0); Mean Corpuscular Volume 96.5 fL (80.0-94.0); Mean Platelet Volume 9.7 fL (9.5-13.5); Monocytes Absolute Auto 0.5 10^3/uL (0.3-0.8); Monocytes Percent Auto 9.9 % (1.7-12.0); Neutrophils Absolute Auto 3.9 10^3/uL (1.4-6.5); Neutrophils Percent Auto 73.5 % (43.0-75.0); Platelet Count 200 10^3/uL (150-450); White Blood Count 5.3 10^3/uL (4.0-11.0)
[2024-05-28 15:19] LABS: Bilirubin Urine SMALL (NEGATIVE); Blood Urine NEGATIVE (NEGATIVE); Clarity Urine CLEAR (CLEAR); Color Urine YELLOW (YELLOW); Glucose Urine UA NEGATIVE (NEGATIVE); Ketones Urine 40 mg/dL (NEGATIVE); Leukocyte Esterase Urine NEGATIVE (NEGATIVE); Nitrite Urine NEGATIVE (NEGATIVE); Protein Urine 30 mg/dL (NEG/TRACE); Specific Gravity Urine 1.025 (1.005-1.025); Urobilinogen Urine 0.2 EU/dL (0.2-1.0); pH Urine 5.5 (5.0-9.0)
[2024-05-28 15:42] LABS: Bacteria Urine TRACE #/HPF (NONE SEEN); Cast Seen? SEEN #/LPF (NONE SEEN); Crystals Seen? None Seen #/HPF (None Seen); Hyaline Casts Urine FEW; Mucus Urine MODERATE (NONE SEEN); RBC Urine NONE SEEN #/HPF (0-2); Squamous Epithelial Cell Urine RARE #/LPF (NONE/RARE); Urine Culture Indicated NO; WBC Urine NONE SEEN #/HPF (NONE SEEN)
== END 2024-05-28 16:24 | disposition home or self-care (01) ==
PROVIDERS: Physician Assistant; Emergency Provider Emergency Medicine; PCP Family Medicine
DX: K52.9 Noninfective gastroenteritis and colitis, unspecified (principal); Z87.891 Personal history of nicotine dependence; K80.20 Calculus of gallbladder without cholecystitis without obstruction; R11.2 Nausea with vomiting, unspecified
CPT/HCPCS: 36415; 74177; 80053; 81001; 83605; 83690; 85025; 93005; 96361; 96374; 96375; 96376; 99285; J2405; J3490; Q9967

== ENCOUNTER 2024-06-05 07:11 | Outpatient (OUT) | payer MEDICARE, SELFPAY ==
--- OUTSIDE RECORDS SUMMARY | 2024-06-05 07:15 | XMS_ITS | CCD ---
Author Organization [facility] Care Team Providers Care Agricultural Research Technologist Name Role Phone Silvana Lundberg Primary Care Provider [phone] Aleksey Perez Attending Provider Silvana Lundberg MD [...] Attending Unavailable CARLOS KRISHNA Admitting Unavailable DR IADE DELEON Consulting Unavailable PANCHO, DR NOBLE Primary Care Unavailable MISC, DR WALL Attending Unavailable MISC, DR WALL Admitting Unavailable TAMIKA, DR SILVANA Ko Primary Care Unavailable NIKKIE TREJO Admitting Unavailable NIKKIE TREJO Attending Unavailable DR ASHER SOLANO Consulting Unavailable LUNDBERG, DR SILVANA Ko Primary Care Unavailable NIKKIE TREJO Consulting Unavailable MISC, DR WALL Consulting Unavailable MISC, DR WALL Attending Unavailable MISC, DR WALL Admitting Unavailable TAMIKA, DR SILVANA Ko Primary Care Unavailable TAMIKA, DR SILVANA Ko Consulting Unavailable TAMIKA, DR SILVANA Ko Attending Unavailable TAMIKA, DR SILVANA Ko Admitting Unavailable BALL, DR NOBLE Primary Care Unavailable ALGHOTHANI, MOHFOX Admitting Unavailable ALGHOTHANI, MOHJEAN CARLOSD Attending Unavailable [...] DR SILVANA Ko Primary Care Unavailable ALGHOTHANI, MOHJEAN CARLOSD Consulting Unavailable ALGHOTHANI, MOHJEAN CARLOSD Attending Unavailable LUNDBERG, DR SILVANA Ko Primary Care Unavailable ALGHOTHANI, MOHAMAD Admitting Unavailable HODGES, DR SALINAS Attending Unavailable MISC, DR WALL Consulting Unavailable LUNDBERG, DR SILVANA Ko Primary Care Unavailable HODGES, DR SALINAS Admitting Unavailable ALGHOTHANI, MOHJEAN CARLOSD Consulting Unavailable ALGHOTHANI, MOHAMAD Attending Unavailable ALGHOTHANI, MOHAMAD Admitting Unavailable LUNDBERG, DR SILVANA Ko Primary Care Unavailable ALGHOTHANI, MOHFOX Consulting Unavailable ALGHOTHANI, MOHAMAD Attending Unavailable ALGHOTHANI, MOHAMAD Admitting Unavailable LUNDBERG, DR SILVANA Ko Primary Care Unavailable BALL, DR NOBLE Consulting Unavailable BALL, DR NOBLE Attending Unavailable BALL, DR NOBLE Admitting Unavailable BALL, DR NOBLE Primary Care Unavailable ALBERTINA, BRYSON Attending Unavailable LUNDBERG, DR SILVANA Ko Primary Care Unavailable ALBERTINA, BRYSON Admitting Unavailable WEST, DR MAJOR Jackson Consulting Unavailable ALBERTINA, BRYSON Consulting Unavailable ANGELES NASSAR Consulting Unavailable DANIS PANDA Consulting Unavailable HODGES, [...] LUNDBERG, DR SILVANA Ko Primary Care Unavailable MARIA TERESA BA Attending Unavailable CARLOS KRISHNA Attending Unavailable ALGHOTHANI, MOHAMAD Attending Unavailable ALFREDO COHN Attending Unavailable MD Silvana Lundberg Attending Provider NO FAMILY, PHYSICIAN Primary Care Provider Unava ilable MD Brad Hodges Attending Provider NO FAMILY, PHYSICIAN Primary Care Provider Unava ilable MD Brad Hodges Attending Provider [phone] NO FAMILY, PHYSICIAN Primary Care Provider Unava ilMD Brad Pandya Attending Provider ANNA COLLINS Attending Unavailable EUGENIA LANDON Referring Unavailab ANNA Isaac Attending Unavailable NO FAMILY, PHYSICIAN Primary Care Unavailable Brad Hodges Admitting Unavailable Brad Hodges Attending Unavailable Safia Enrique Attending Unavailable Silvana Lundberg Primary Care Unavailable ObSafia lam Admitting Unavailable Silvana Lundberg Admitting Unavailable Silvana Lundberg Attending Unavailable NO FAMILY, PHYSICIAN Primary Care Unavailable Brad Hodges Admitting Unavailable Brad Hodges Attending Unavailable NO FAMILY, PHYSICIAN Primary Care Unavailable Silvana Lundberg MD Primary Care Provider Cordelia INDUSTRIAL HYGIENE MANAGER, Maria Teresa Unavailable Asher Skaggs Unavailable [phone] MD Silvana Lundberg Primary Care Provider Obermeyrafat, ESCALATOR ATTENDANT-C Safia Zurita Attending Provider PADUBIDRI, ANOKHA Referring Unavailable SILVANA LUNDBERG Primary Care Unavailable PADUBIDRI, ANOKHA Attending Unavailable SILVANA LUNDBERG Primary Care Unavailable PADUBIDRI, ANOKHA Referring Unavailable SILVANA LUNDBERG Primary Care Unavailable PADUBIDRI, ANOKHA Referring Unavailable SILVANA LUNDBERG Primary Care Unavailable PADUBIDRI, ANOKHA Attending Unavailable PADUBIDRI, ANOKHA Referring Unavailable SILVANA LUNDBERG E Primary Care Unavailable Jerrod BELL Attending Unavailable Jerrod BELL R Attending Unavailable Jerrod BELL R Attending Unavailable Jerrod BELL R Admitting Unavailable ARABELLA, Jerrod R Attending Unavailable ARABELLA, Jerrod R Referring Unavailable SILVANA LUNDBERG Primary Care Unavailable TIFFANY PETERSON Attending Unavailable SILVANA LUNDBERG E Primary Care Unavailable LUNDBERG, SILVANA E Primary Care Unavailable JENAE, ALYSHA Referring Unavailable SILVANA LUNDBERG E Primary Care Unavailable MARILY, MERLY Referring Unavailable SILVANA LUNDBERG E Primary Care Unavailable STEPHANIA LUNDBERGIA E Primary Care Unavailable KARAMLOU, MERLY Referring Unavailable CARAMJAYDENU, MERLY Attending Unavailable SILVANA LUNDBERG E Primary Care Unavailable MISTY WALLACE Referring Unavailable ALYSHA EMANUEL Attending Unavailable Allergies Allergy Classification Reported Allergen(s) Allergy Type Date of Onset Reaction(s) Facility Angiotensin 2 Receptor Blockers (ARB) (1 source) Losartan Drug Allergy 05-30-19 23 Unknown [facility] Angiotensin Converting Enzyme (HORTENCIA) Inhibitors (2 sources) Lisinopril Drug Allergy 09-17-19 22 Unknown [facility] Repository Opioid Agonists (2 sources) Morphine Drug Allergy 08-25-19 17 Intolerance [facility] Repository (20 sources) Lisinopril; Translations: [lisinopril] Drug Allergy 09-17-19 22 Unknown [facility] (20 sources) Morphine; Translations: [morphine] Drug Allergy 08-25-19 17 Intolerance [facility] Work Phone: Comment on above: Tolerated hydromorph one during 11/2016 admission (20 sources) Losartan; Translations: [LOSARTAN] Drug Allergy 05-30-19 23 Unknown [facility] (2 sources) Morphine Drug Allergy 11-07-19 15 [facility] Repository (2 sources) patient allergy list reviewed by nurse or physicia Propensity to adverse reactions 04-15-20 14 Comment:Done [employer] Other (2 sources) Allergies Reconciled Propensity to adverse reactions Unknown [employer] Other Medications Current Medications Medication Drug Class(es) Dates Sig (Normalized) Sig (Original) Amitriptyline (3 sources) Tricyclic Antidepressant Amitrip tyline HCl Active End: 09-21-2021 take 1 tablet by mouth once daily at bedtime amitriptyline (ELAVIL) 50 mg tablet Take 50 mg by mouth daily at bedtime. 0 09/21/2021 Discontinued Comment on above: Take 50 mg by mouth daily at bedtime. amoxicillin 875 mg / clavulanate 125 mg oral tablet (3 sources) Penicillin-class Antibacterial Start: 11-30-19 23 take 1 tablet by mouth every twelve hours Amoxicillin-Pot Clavulanate 875-125 MG 1 tablet Orally every 12 hrs for 10 days Nov, Active ARIPiprazole 5 mg oral tablet (17 sources) Atypical Antipsychotic Start: 11-28-19 End: 01-22-20 take 1 tablet by mouth once daily at bedtime Aripiprazole 5 mg tablet Active 0 .ROUTE .COMPLEX January 22, 2024 2:55pm TAKE 1 TABLET BY MOUTH EVERYDAY AT BEDTIME Start: 10-01-2023 End: 10-01-2023 take 4 tablets by mouth once daily at bedtime Aripiprazole (Abilify) 5 mg tablet Discontinued 20 MG PO Daily at bedtime October 01, 2023 8:15am October 01, 2023 11:38am Start: 09-05-2023 End: 11-28-2023 take 1 tablet by mouth once daily at bedtime Aripiprazole (Abilify) 5 mg tablet Discontinued 5 MG PO Daily at bedtime September 30, 2023 11:00pm November 28, 2023 9:00pm Aspir 81 (4 sources) Start: 11-19-2016 take 81 mg by mouth once daily Aspir 81 81 mg, Oral, Daily, Refills(s) 0, Prophylaxis Start Date: 11/19/16 Status: Ordered aspirin 81 mg chewable tablet (20 sources) Platelet Aggregation Inhibitor, Nonsteroidal Anti-inflammatory Drug Start: 07-06-2023 take 1 tablet by mouth once daily Aspirin 81 mg tablet,chewable Active 81 MG PO Daily July 05, 2023 11:00pm take 81 mg by mouth once daily A SPIRIN ORAL Take 81 mg by mouth once daily. Active take 1 tablet by baltazar th every twenty-four hours Aspirin 81 MG 1 tablet Orally Once a day Active Comment on above: Take 81 mg by mouth once daily. atorvastatin 40 mg oral tablet (20 sources) HMG-CoA Reductase Inhibitor Start: 07-05-19 take 1 tablet by mouth once daily Atorvastatin 40 mg tablet Active 40 MG PO Daily July 05, 2023 11:00pm Comment on above: Take 40 mg by mouth once daily. calcium citrate 950 mg oral tablet (3 sources) Start: 02-08-20 take 1 tablet by mouth twice daily calcium citrate (CALCITRATE) 200 mg (950 mg) tab Take 1 tablet by mouth two times a day. 180 tablet 3 02/08/2024 Active cholecalciferol 1.25 mg oral capsule (3 sources) Vitamin D Start: 02-08-20 take 1 capsule by mouth every week cholecalciferol, Vitamin D3, (VITAMIN D3) 1,250 mcg (50,000 unit) cap capsule Take 1 capsule by mouth one time a week. 12 capsule 1 02/08/2024 Active cyclobenzaprine (18 sources) Muscle Relaxant Start: 07-16-19 cyclobenzaprine Refills(s) 0 Start Date: 07/16/23 Status: Ordered End: 10-06-2022 take 1 tablet by mouth three times daily cyclobenzaprine (FLEXERIL) 10 mg tablet Take 10 mg by mouth three times daily. 0 10/06/2022 Discontinued (Course of therapy completed) Comment on above: Take 10 mg by mouth three times daily. DULoxetine 60 mg delayed release oral capsule (20 sources) Serotonin and Norepinephrine Reuptake Inhibitor Start: take 1 capsule by mouth twice daily Duloxetine 60 mg capsule,delayed release(DR/EC) Active 60 MG PO Twice daily July 05, 2023 11:00pm Start: 10-14-2013 take 60 mg by mouth twice andrae y Cymbalta 60 mg, Oral, BID, Refills(s) 0, Depression Start Date: 10/14/13 Status: Ordered DULoxetine HCl A ctive Comment on above: Take 60 mg by mouth twice daily. folic acid 1 mg oral tablet (20 sources) Start: 11-19-2016 take 1 tablet by mouth once daily Folic Acid 1 mg tablet Active 1 MG PO Daily July 05, 2023 11:00pm Folic Acid Activ e Comment on above: Take 1 mg by mouth o nce daily. gabapentin 300 mg oral capsule (20 sources) Anti-epileptic Agent Start: 07-16-2023 take 3 tablets by mouth twice daily gabapentin 300 mg Cap = 3 tab(s), Oral, BID, Refills(s) 0 Start Date: 07/16/23 Status: Ordered Start: 07-06-2023 End: 05-13-2024 take 1 capsule by mouth three times daily Gabapentin 300 mg capsule Active 300 MG PO Three times daily May 13, 2024 11:09am Start: 02-21-2018 take 3 capsules by m outh three times daily gabapentin (NEURONTIN) 300 mg [...] 30 days. Take 3 capsules by m out three times daily for 30 days. iv contrast (will be provided with radiology [...] tablet (20 sources) Antirheumatic Agent Start: 12-09-19 17 take 1 tablet by mouth once daily Leflunomide 20 mg tablet Active 20 MG PO Daily July 05, 2023 11:00pm Leflunomide Acti ve Comment on above: Take 20 mg by mouth once daily. methotrexate 2.5 mg oral tablet (20 sources) Folate Analog Metabolic Inhibitor Start: 4 take 1 tablet by mouth every week Methotrexate Sodium 2.5 mg tablet Active 2.5 MG PO every week July 05, 2023 11:00pm Start: 12-09-2016 methotrexate 2 .5 mg Tab 25 mg = 10 tab(s), Oral, q7day, # 4 tab(s), Refills(s) 0, Arthritis Start Date: 12/09/16 Status: Ordered take 5 tablets by mo uth every week methotrexate 2.5 mg tablet Take 12.5 mg by mouth one time a week. Active take 12.5 mg by mout h every week Methotrexate 2.5 MG 12.5mg Orally weekly Active take 2 tablets by mo uth every week methotrexate 2.5 mg tablet Take 5 mg [...] Date: 05/01/22 Status: Ordered omeprazole 20 mg delayed release oral capsule (20 sources) Proton Pump Inhibitor Start: 024 take 1 capsule by mouth once daily Omeprazole 20 mg capsule,delayed release(DR/EC) Active 20 MG PO Daily July 05, 2023 11:00pm Start: 10-14-2013 take 20 mg by mouth once daily omeprazole 20 mg, Oral, Daily, Refills(s) 0, Control of stomach acid Start Date: 10/14/13 Status: Ordered Omeprazole Activ e Comment on above: Take 20 mg by mouth once daily. oxaprozin 600 mg oral tablet (20 sources) Nonsteroidal Anti-inflammatory Drug Start: 07-04-2021 take 1 tablet by mouth twice daily Oxaprozin 600 mg tablet Active 600 MG PO Twice daily July 05, 2023 11:00pm take 2 tablets by mouth once jesse ly oxaprozin (DAYPRO) 600 mg tablet Take 1,200 mg by mouth once daily. Active Comment on above: Take 1,200 mg by baltazar th once daily. oxyCODONE (9 sources) Opioid Agonist Start: 07-16-2023 oxycodone Refills(s) 0 Start Date: 07/16/23 Status: Ordered oxyCODONE HCl No t-Taking oxyCODONE HCl Ac tive perflutren lipid microspheres 1.3 mL in NaCl (PF) 0.9% 10 mL injection (DEFINITY) (18 sources) Start: 08-16-2022 End: 11-15-2023 perflutren lipid microspheres 1.3 mL in NaCl (PF) 0.9% 10 mL injection (DEFINITY) sildenafil 100 mg oral tablet (3 sources) Phosphodiesterase 5 Inhibitor Start: 07-16-2023 sildenafil 100 mg Tab 100 mg = 1 tab(s), Oral, As Directed, 1 hour before sexual activity, # 30 tab(s), Refills(s) 4, Pharmacy: [facility]/pharmacy #[id number], 188, cm, 07/16/23 10:06:00 EDT, Height/Length Dosing, 134, kg, 07/16/23 10:06:00 EDT, Weight Dosing Start Date: 07/16/23 Status: Ordered 125 ml sodium chloride 9 mg/ml prefilled syringe (18 sources) Start: 08-16-2022 End: 11-15-2023 sodium chloride 0.9 % (flush) 10 mL (BD POSIFLUSH) Sodium polystyrene sulfonate (8 sources) Start: 10-18-2022 Start: 10-18-2022 Sodium Polysty symone Sulfonate 15 GM/60ML 60 mL Orally Once a day for 2 days Sep, Active spironolactone 25 mg oral tablet (20 sources) Aldosterone Antagonist Start: 01-31-2024 take 0.5 tablet by mouth once daily Spironolactone 25 mg tablet Active 0 .ROUTE .COMPLEX January 31, 2024 12:03pm TAKE 1/2 TABLET BY MOUTH EVERYDAY Start: 10-01-2023 End: 01-31-2024 Spironolactone 25 mg tablet Discontinued 12.5 MG PO Daily October 01, 2023 8:44am January 31, 2024 12:03pm Start: 05-01-2022 End: 10-01-2023 take 1 tablet by mouth once daily Spironolactone 25 mg tablet Discontinued 25 MG PO Daily July 05, 2023 11:00pm October 01, 2023 8:46am spironolactone ( ALDACTONE) 25 mg tablet Take 17.5 mg by mouth once daily. Active Comment on above: Take 25 mg [...] oral capsule (20 sources) alpha-Adrenergic Malaika Start: 07-06-19 take 1 capsule by mouth once daily Tamsulosin 0.4 mg capsule Active 0.4 MG PO Daily July 05, 2023 11:00pm Start: 11-20-2022 take 1 capsule by [facility] twice daily tamsulosin 0.4 mg Cap 0.4 mg = 1 cap(s), Oral, BID, # 180 caplet(s), Refills(s) 3, Pharmacy: [facility]/pharmacy #[id number], 188, cm, 05/01/22 9:58:00 EST, Height/Length Dosing, 131.8, kg, 05/01/22 9:58:00 EST, Weight Dosing Start Date: 11/20/22 Status: Ordered Start: 07-04-2021 take 1 capsule by [facility] twice daily tamsulosin 0.4 mg Cap 0.4 mg = 1 cap(s), Oral, BID, # 180 caplet(s), Refills(s) 3, Pharmacy: [facility]/pharmacy #[id number], 188, cm, 07/04/21 9:20:00 EDT, Height/Length Dosing, 131.8, kg, 07/04/21 9:20:00 EDT, Weight Dosing Start Date: 07/04/21 Status: Ordered Comment on above: Take 0.4 mg by mouth once daily. 28 actuat teriparatide 0.02 mg/actuat pen injector (4 sources) Parathyroid Hormone Analog Start: 2023 inject 20 ug by subcutaneous injection once daily FORTEO 20 mcg/dose (600mcg/2.4mL) Take 20 mcg subcutaneously daily 7.2 mL 3 04/07/2024 Active traMADol hydrochloride 50 mg oral tablet (7 sources) Opioid Agonist Start: 2022 take 1 tablet by mouth three times daily as needed traMADol HCl 50 MG 1 tablet as needed Orally tid prn for 7 days PRN Oct, Active 24 hr venlafaxine 150 mg extended release oral capsule (20 sources) Serotonin and Norepinephrine Reuptake Inhibitor Start: 2024 take 1 capsule by mouth once daily at mealtime Venlafaxine 150 mg capsule,extended release 24hr Active 0 .ROUTE .COMPLEX May 13, 2024 11:10am TAKE 1 CAPSULE BY MOUTH EVERY DAY WITH FOOD FOR 30 DAYS Start: 01-31-2024 End: 05-13-2024 take 1 capsule by mouth once daily at mealtime Venlafaxine 150 mg capsule,extended release 24hr Discontinued 0 .ROUTE .COMPLEX January 31, 2024 12:03pm May 13, 2024 11:10am TAKE 1 CAPSULE BY MOUTH EVERY DAY WITH FOOD FOR 30 DAYS Start: 07-16-2023 take 1 capsule by mo [facility] once daily venlafaxine 150 mg Cap-ER 150 mg = 1 cap(s), Oral, Daily, Refills(s) 0 Start Date: 07/16/23 Status: Ordered Start: 07-09-2023 End: 01-31-2024 take 1 capsule by mouth once daily at mealtime Venlafaxine 150 mg capsule,extended release 24hr Discontinued 0 .ROUTE .COMPLEX October 01, 2023 8:34am January 31, 2024 12:03pm TAKE 1 CAPSULE BY MOUTH EVERY DAY WITH FOOD FOR 30 DAYS Start: 07-06-2023 End: 07-09-2023 take 1 capsule by mouth once daily Venlafaxine 150 mg capsule,extended release 24hr Discontinued 150 MG PO Daily July 05, 2023 11:00pm July 09, 2023 9:07am Start: 05-08-2022 take 1 capsule by mo [facility] once daily venlafaxine ER (EFFEXOR XR) 75 mg 24 hr capsule Take 150 mg by mouth once daily. 05/08/2022 Active Start: 05-08-2022 take 1 capsule [...] Take 150 mg by mouth once daily. Completed/Discontinued Medications Medication Drug Class(es) Dates Sig (Normalized) Sig (Original) acetaminophen 325 mg / oxyCODONE hydrochloride 5 mg oral tablet (20 sources) Opioid Agonist Start: 10-01-2023 End: 10-01-2023 take 1 tablet by mouth twice daily as needed for pain Oxycodone-Acetamino phen 5-325 mg tablet Discontinued 1 TAB PO Twice daily as needed for pain October 01, 2023 October 01, 2023 8:52am Start: 06-20-2023 End: 05-13-2024 take 1 tablet by mouth twice daily as needed for pain Oxycodone-Acetaminophen 5-325 mg tablet Discontinued 1 TAB PO Twice daily as needed for pain October 01, 2023 May 13, 2024 10:48am Start: 03-29-2023 oxyCODONE-acet aminophen (PERCOCET) 5-325 mg tablet three times a day as needed. 03/29/2023 Active Start: 03-29-2023 take 1 tablet by baltazar th twice daily as needed Percocet 5-325 MG [...] baltazar th every 8 hours as needed. [id number] 200 actuat albuterol 0.09 mg/actuat metered dose inhaler (20 sources) beta2-Adrenergic Agonist Start: End: take 1 puff(s) by inhalation every four hours as needed Albuterol Sulfate 90 mcg/actuation HFA aerosol inhaler Discontinued 1 PUFF INHALATION Every 4 hours as needed July 05, 2023 11:00pm October 01, 2023 8:14am Start: 09-20-2021 End: 02-05-2023 albuterol HFA (PROVENTIL HFA , VENTOLIN HFA) 90 mcg/actuation inhaler take 1 [...] to 1 000 mcg Sep, 1000 mcg 120 actuat budesonide 0.16 mg/actuat / formoterol fumarate 0.0045 mg/actuat metered dose inhaler (20 sources) Corticosteroid, beta2-Adrenergic Agonist Start: 07-06-2023 End: 10-01-2023 take 1 puff(s) by inhalation twice daily Budesonide-Formoterol (Symbicort) 160-4.5 mcg/actuation HFA aerosol inhaler Discontinued 2 PUFF INHALATION Twice daily July 05, 2023 11:00pm October 01, 2023 8:16am Start: 05-31-2022 End: 02-05-2023 take 2 puff(s) [...] (2 sources) alpha-Adrenergic Malaika, beta-Adrenergic Malaika End: 09-22-19 take 1 tablet by mouth twice daily at mealtime carvedilol (COREG) 6.25 mg tablet Take 6.25 mg by mouth twice daily with meals. 0 09/21/2021 Discontinued Comment on above: Take 6.25 mg by mout h twice daily with meals. cephalexin 500 mg oral capsule (4 sources) Cephalosporin Antibacterial Start: 07-06-19 End: 08-31-19 take 1 capsule by mouth twice daily Cephalexin 500 mg capsule Discontinued 500 MG PO Twice daily 14 7 July 05, 2023 11:00pm August 31, 2023 10:10am ferrous sulfate 325 mg oral tablet (12 sources) Start: 07-06-19 End: 08-31-19 take 1 tablet by mouth three times weekly Ferrous Sulfate 325 mg (65 mg iron) tablet Discontinued 325 MG PO 3 Times a week July 05, 2023 11:00pm August 31, 2023 10:11am Start: 04-28-2023 End: 12-04-2023 take 1 tablet by mouth three times weekly ferrous sulfate 325 mg (65 mg iron) tablet Take 1 tablet by mouth three times a week. 0 04/28/2023 12/04/2023 Discontinued take 1 tablet by baltazar th three times weekly Ferrous Sulfate 325 (65 Fe) MG 1 tablet Orally Three times a Week for 30 days Active fluticasone propionate 0.05 mg/actuat metered dose nasal spray (7 sources) Corticosteroid Start: 07-06-2023 End: 08-31-2023 Fluticasone Propionate 50 mcg/actuation spray,suspension Discontinued 1 SPRAY INTRANASAL Daily July 05, 2023 11:00pm August 31, 2023 10:11am Start: 11-29-2022 take 1 spray(s) nasa l route once daily Fluticasone Propionate 50 MCG/ACT 1 spray in each nostril Nasally Once a day for 30 days Nov, Active FOLIC ACID/MULTIVIT-MIN/LUTEIN (CENTRUM SILVER ORAL) (2 sources) End: 09-21-2021 take 1 tablet by mouth once daily FOLIC ACID/MULTIVIT-MIN/LUTEIN (CENTRUM SILVER ORAL) Take by mouth. Take one(1) tablet daily. 0 09/21/2021 Discontinued take 1 tablet by mouth once andrae y FOLIC ACID/MULTIVIT-MIN/LUTEIN (CENTRUM SILVER ORAL) Take by mouth. Take one(1) tablet daily. 0 Active Comment on above: Take by mouth. Take one(1) tablet daily. furosemide 20 mg oral tablet (3 sources) Loop Diuretic End: 12-29-19 take 1 tablet by mouth once daily furosemide (LASIX) 20 mg tablet Take 20 mg by mouth once daily. 0 12/28/2021 Discontinued (Discontinued by another Health Care Provider) Comment on above: Take 20 mg by mouth once daily. levoFLOXacin 500 mg oral tablet (10 sources) Quinolone Antimicrobial Start: 07-05-19 End: 08-17-19 levoFLOXacin (LEVAQUIN) 500 mg tablet Take 750 mg by mouth once daily. 0 07/04/2021 08/16/2022 Discontinued (Course of therapy completed) Comment on above: Take 750 mg by mouth once daily. meloxicam 15 mg oral tablet (2 sources) Nonsteroidal Anti-inflammatory Drug Start: 08-06-19 End: 09-22-19 take 0.5 tablet by mouth once daily meloxicam (MOBIC) 15 mg tablet TAKE 1/2 TABLET BY MOUTH EVERY DAY 15 tablet 1 08/06/2019 09/21/2021 Discontinued Comment on above: TAKE 1/2 TABLET BY M OUT EVERY DAY 24 hr metoprolol succinate 50 mg extended release oral tablet (20 sources) beta-Adrenergic Malaika Start: 07-06-19 End: 10-01-19 take 1 capsule by mouth once daily Metoprolol Succinate 25 mg capsule,sprinkle,ER 24hr Discontinued 25 MG PO Daily July 05, 2023 11:00pm October 01, 2023 8:44am Start: 06-04-2022 End: 03-04-2024 take 1 tablet by mouth once daily Metoprolol Succinate 50 mg tablet extended release 24 hr Discontinued 50 MG PO daily September 30, 2023 11:00pm March 04, 2024 10:44am Start: 06-04-2022 take 50 mg by mouth once daily [...] Discontinued Start: 11-19-2016 take 1 tablet by [facility] once daily Metoprolol succinate 25 mg ER Tablet 25 mg, Oral, Daily, Refills(s) 0, High blood pressure Start Date: 11/19/16 Status: Ordered take 1 capsule by [facility] once daily Metoprolol Succinate 50 MG 1 capsule Orally Once a day Active Metoprolol Succi milvia Active Comment on above: [facility] Take 100 mg by mouth once daily. Take 50 mg by mouth once daily. midodrine hydrochloride 10 mg oral tablet (8 sources) alpha-Adrenergic Agonist Start: 07-13-19 End: 10-07-19 take 1 tablet by mouth three times daily midodrine (PROAMATINE) 10 mg tablet Take 10 mg by mouth three times daily. 0 07/12/2022 10/06/2022 Discontinued (Course of therapy completed) Comment on above: Take 10 mg by mouth three times daily. nystatin [id number] unt/ml oral suspension (6 sources) Polyene Antifungal Start: 05-17-19 take 4 mL by mouth four times daily Nystatin [id number] UNIT/ML 4 ml Mouth/Throat Four times a day for 10 day(s) Apr, Not-Taking predniSONE 50 mg oral tablet (15 sources) Start: 09-21-19 End: 10-07-19 predniSONE (DELTASONE) 50 mg pyridostigmine bromide 60 mg oral tablet (8 sources) Start: 08-11-19 End: 08-10-19 take 1 tablet by mouth three times daily pyridostigmine (MESTINON) 60 mg tablet Take 60 mg by mouth three times daily. 0 08/10/2022 10/06/2022 Discontinued (Course of therapy completed) Comment on above: Take 60 mg by mouth three times daily. tiZANidine 4 mg oral tablet (3 sources) Central alpha-2 Adrenergic Agonist Start: 10-31-19 End: 09-22-19 take 2 tablets by mouth every eight hours as needed tiZANidine (ZANAFLEX) 4 mg tablet Take 2 tablets by mouth three times daily as needed. 0 10/30/2016 09/21/2021 Discontinued tiZANidine HCl A ctive Comment on above: Take 2 tablets by mo [facility] three times daily as needed. triamcinolone acetonide 1 mg/ml topical cream (4 sources) Corticosteroid Start: 07-06-2023 End: 10-01-2023 Triamcinolone Acetonide 0.1 % cream Discontinued 1 APPLIC TOPICAL Twice daily 80 10 July 05, 2023 11:00pm October 01, 2023 8:17am Problems Active Problems Problem Classification Problem Date Documented Date Episodic/Chronic Acute bronchitis (4 sources) Acute bronchitis; Translations: [Acute bronchitis due to other specified organisms] Onset: 4 Episodic Allergic reactions (3 sources) Allergic disposition; Translations: [Allergy, unspecified, initial encounter] Episodic Asthma (16 sources) Moderate persistent asthma; Translations: [Moderate persistent asthma, uncomplicated] Chronic Blindness and vision defects (2 sources) Visual disturbance; Translations: [Other visual disturbances] Episodic Calculus of urinary tract (20 sources) Kidney stone; Translations: [Calculus of kidney] 07-19-2015 Episodic Cardiac dysrhythmias (5 sources) Postural orthostatic tachycardia syndrome ; Translations: [POTS (postural orthostatic tachycardia syndrome)] Onset: 3 Chronic Chronic kidney disease (12 sources) Chronic kidney disease stage 3; Translations: [Stage 3 chronic kidney disease, unspecified whether stage 3a or 3b CKD] 07-06-2023 Chronic Chronic obstructive pulmonary disease and bronchiectasis (2 sources) Bronchitis; Translations: [Bronchitis, not specified as acute or chronic] Episodic Congestive heart failure; nonhypertensive (18 sources) Chronic diastolic heart failure; Translations: [Chronic diastolic (congestive) heart failure] Onset: 2 Chronic Coronary atherosclerosis and other heart disease (3 sources) Coronary arteriosclerosis; Translations: [Atherosclerotic heart disease of [place] coronary artery without angina pectoris] 11-30-2022 Chronic Deficiency and other anemia (12 sources) Pernicious anemia; Translations: [Vitamin B12 deficiency anemia due to intrinsic factor deficiency] 07-06-2023 Episodic Deficiency and other anemia (3 sources) Vitamin B12 deficiency anemia due to intrinsic factor deficiency Episodic Deficiency and other anemia (2 sources) Anemia; Translations: [Anemia, unspecified] Episodic Deficiency and other anemia (1 source) Iron deficiency anemia; Translations: [Other iron deficiency anemias] Episodic Deficiency and other anemia (1 source) Other iron deficiency anemias Episodic Disorders of lipid metabolism (1 source) Hyperlipidemia Onset: 2 01-02-2024 Chronic Esophageal disorders (20 sources) Gastroesophageal reflux disease; Translations: [Gastro-esophageal reflux disease without esophagitis] 12-15-2016 Chronic Essential hypertension (7 sources) Benign essential hypertension; Translations: [Essential hypertension, benign] Onset: 7 07-06-2023 Chronic Fluid and electrolyte disorders (1 source) Hyperkalemia Episodic Fracture of neck of femur (hip) (14 sources) Fracture of unspecified part of neck of left femur, sequela; Translations: [Closed fracture of hip] Onset: 4 Episodic Genitourinary symptoms and ill-defined conditions (6 sources) Increased frequency of urination; Translations: [Dysuria] 05-01-2022 Episodic Hyperplasia of prostate (7 sources) Benign prostatic hypertrophy with outflow obstruction; Translations: [Benign prostatic hyperplasia with lower urinary tract symptoms] Onset: 3 Chronic Immunity disorders (2 sources) Immunodeficiency disorder; Translations: [Immunodeficiency, unspecified] Chronic Immunizations and screening for infectious disease (3 sources) Encounter for immunization; Translations: [Vaccination given] Onset: 2 Episodic Inflammatory conditions of male genital organs (7 sources) Chronic prostatitis; Translations: [Chronic prostatitis] Onset: [...] in full remission] Onset: 6 09-12-2016 Chronic Neoplasms of unspecified nature or uncertain behavior (1 source) Monoclonal gammopathy (clinical); Translations: [Monoclonal gammopathy] 12-04-2023 Chronic Noninfectious gastroenteritis (2 sources) Non-infective enteritis and colitis; Translations: [Noninfective gastroenteritis and colitis, unspecified] Episodic Nutritional deficiencies (2 sources) Deficiency of macronutrients; Translations: [Unspecified protein-calorie malnutrition] Onset: 7 Chronic Osteoarthritis (20 sources) Arthritis; Translations: [Unspecified osteoarthritis, unspecified site] Onset: 6 07-19-2015 Chronic Osteoporosis (2 sources) Osteoporosis; Translations: [Age-related osteoporosis without current pathological fracture] Onset: 4 02-08-2024 Chronic Other acquired deformities (20 sources) Flatback syndrome; Translations: [Flatback syndrome, site unspecified] Onset: 6 09-12-2016 Chronic Other aftercare (1 source) Other long term care pharmacist (current) drug therapy; Translations: [OTH [facility] CURRENT DRUG THERAPY] Onset: 3 Episodic Other and ill-defined cerebrovascular disease (20 sources) Small vessel cerebrovascular disease; Translations: [Cerebrovascular disease, unspecified] Onset: 7 08-24-2016 Chronic Other and ill-defined heart disease (4 sources) Heart disease 07-04-2021 Chronic Other circulatory disease [...] and reflux uropathy] Onset: 3 Episodic Other endocrine disorders (1 source) Hyperparathyroidism; Translations: [Other hyperparathyroidism] 02-08-2024 Chronic Other endocrine disorders (1 source) Other hyperparathyroidism; Translations: [Other hyperparathyroidism (HCC)] Onset: 4 Chronic Other inflammatory condition of skin (2 sources) Psoriasis; Translations: [Other psoriasis] Onset: 8 Chronic Other lower respiratory disease (3 sources) Dyspnea on exertion; Translations: [Other forms of dyspnea] Episodic Other lower respiratory disease (2 sources) Pleuritic pain; Translations: [Pleurodynia] Episodic Other male genital disorders (5 sources) Male erectile dysfunction, unspecified; Translations: [Erectile dysfunction] Onset: 4 Chronic Other male genital disorders (8 sources) Cyst of epididymis; Translations: [Cyst of epididymis] Onset: 3 Episodic Other male genital disorders (2 sources) Disorder of male genital organ; Translations: [Other specified disorders of the male genital organs] Episodic Other nervous system disorders (4 sources) Disorder of the peripheral nervous system 10-08-2014 Chronic Other nervous system disorders (13 sources) Peripheral nerve disease ; Translations: [Polyneuropathy, unspecified] 07-06-2023 Chronic Other nervous system disorders (1 source) [...] Translations: [Pain in right elbow] Episodic Other non-traumatic joint disorders (3 sources) Pain in left shoulder; Translations: [Left shoulder pain] 09-05-2023 Episodic Other nutritional; endocrine; and metabolic disorders [...] index 36.0-36.9, adult] Onset: 8 Chronic Other nutritional; endocrine; and metabolic disorders (1 source) Severe obesity; Translations: [Class 3 severe obesity without serious comorbidity with body mass index (BMI) of 40.0 to 44.9 in adult, unspecified obesity type (HCC)] 02-08-2024 Chronic Other screening for suspected conditions (not mental disorders or infectious disease) (6 sources) Abnormal results of pulmonary function studies; Translations: [Electrocardiogram abnormal] Onset: 7 09-28-2023 Episodic Other skin disorders (4 sources) Eruption; Translations: [Rash and other nonspecific skin eruption] 07-06-2023 Episodic Other skin disorders (5 sources) Epidermoid cyst; Translations: [Epidermal cyst] Onset: 4 Episodic Other skin disorders (2 sources) Rash and other nonspecific skin eruption; Translations: [Rash and other nonspecific skin eruption] 07-06-2023 Episodic Other upper respiratory infections (2 sources) Chronic sinusitis; Translations: [Chronic sinusitis, unspecified] Chronic Otitis media and related conditions (2 sources) Non-suppurative otitis media; Translations: [Unspecified nonsuppurative otitis media, left ear] Episodic Pathological fracture (5 sources) Pathological fracture of proximal end of femur; Translations: [Pathological fracture, hip, unspecified, sequela] 08-31-2023 Episodic Alexa-; endo-; and myocarditis; cardiomyopathy (except that caused by tuberculosis or sexually transmitted disease) (16 sources) Dilated cardiomyopathy; Translations: [Cardiomyopathy, unspecified] Onset: 2 Chronic Phlebitis; thrombophlebitis and thromboembolism (2 sources) Deep venous thrombosis of peroneal vein; Translations: [Acute venous embolism and thrombosis of deep vessels of distal lower extremity] Onset: 7 Chronic Pulmonary heart disease (4 sources) Secondary pulmonary hypertension; Translations: [Other secondary pulmonary hypertension] Chronic Residual codes; unclassified (20 sources) Obstructive sleep apnea syndrome; Translations: [Obstructive sleep apnea (adult) (pediatric)] Onset: 7 12-15-2016 Chronic Comment on above: Outside Source Comme nt: Overview: On auto-CPAP - sleep study done on 07/10/16 Overview: On auto-CPAP - sleep study done on 07/10/16 Residual codes; unclassified (2 sources) Blood pressure alteration; Translations: [Other general symptoms and signs] Episodic Residual codes; unclassified (2 sources) Procedure not done; Translations: [Procedure and treatment not carried out because of patient's decision for unspecified reasons] Episodic Residual codes; unclassified (3 sources) Localized edema; Translations: [Localized edema] 05-13-2024 Episodic Residual codes; unclassified (4 sources) H/O Spinal surgery; Translations: [Other specified postprocedural states] 07-06-2023 Episodic Residual codes; unclassified (1 source) Pain; Translations: [Pain, unspecified] 09-27-2023 Episodic Residual codes; unclassified (1 source) Pain, unspecified; Translations: [Pain] Onset: 4 Episodic Residual codes; unclassified (1 source) Edema of lower extremity; Translations: [Localized edema] 05-13-2024 Episodic Rheumatoid arthritis and related disease (20 sources) Ankylosing spondylitis; Translations: [Ankylosing spondylitis of unspecified sites in spine] Onset: 2 12-15-2016 Chronic Screening and history of mental health and substance abuse codes (20 sources) Ex-smoker; Translations: [Personal history of nicotine dependence] Onset: 9 07-19-2015 Episodic Skin and subcutaneous tissue infections (10 sources) Cellulitis of right lower limb; Translations: [Cellulitis and abscess of lower leg] Onset: 6 Episodic Spondylosis; intervertebral disc disorders; other back problems (16 sources) Arthritis of spine; Translations: [Unspecified inflammatory [...] [Personal history of COVID-19] Unclassified (1 source) Ankylosing spondylitis of multiple sites in spine; Translations: [Ankylosing spondylitis of multiple sites in spine] Onset: 4 Unclassified (1 source) Ankylosing spondylitis of unspecified sites in spine; Translations: [Ankylosing spondylitis of unspecified sites in spine] Onset: 3 Unclassified (1 source) Cellulitis of right lower limb; Translations: [Cellulitis of right lower limb] Onset: 3 Unclassified (1 source) New Onset: 4 Urinary tract infections (4 sources) Urethral syndrome; Translations: [Urethral syndrome, unspecified] Onset: 4 Episodic Viral infection (6 sources) COVID-19; Translations: [Disease caused by 2019-nCoV] Onset: 2 Past or Other Problems Problem Classification Problem Date Documented Da te Episodic/Chronic Abdominal pain (4 sources) Left lower quadrant pain; Translations: [Left lower quadrant pain] Onset: 01-15-2018 Episodic Acute and unspecified renal failure (10 sources) Acute renal failure syndrome; Translations: [Acute kidney failure, unspecified] Onset: 12-09-2016 Resolved: 12-15-2016 12-15-2016 Episodic Biliary tract disease (1 source) Calculus of gallbladder without cholecystitis without obstruction; Translations: [CALCU GB W/O CHOLECYST W/O OBST] Onset: 04-28-2022 Episodic Cardiac dysrhythmias (20 sources) Sinus tachycardia; Translations: [Tachycardia, unspecified] Onset: 02-05-2017 02-05-2017 Episodic Chronic kidney disease (1 source) Chronic kidney disease Complications of surgical procedures or medical care (20 sources) Postoperative wound infection; Translations: [Infection following a procedure, other surgical site, initial encounter] Onset: 09-12-2016 09-22-2016 Episodic Conditions associated with dizziness or vertigo (4 sources) Lightheadedness; Translations: [Dizziness and giddiness] Onset: 06-18-2017 Episodic Deficiency and other anemia (4 sources) Anemia, unspecified; Translations: [ANEMIA UNSPECIFIED] Onset: 12-15-2021 Episodic Intestinal infection (20 sources) Clostridium difficile [...] Onset: 08-13-2017 Episodic Other aftercare (1 source) senior care (current) use of aspirin; Translations: [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 CASTER CURRENT USE OF ASPIRIN] Onset: 09-22-2021 Episodic Other aftercare (10 sources) Patient encounter status; Translations: [Encounter for therapeutic drug level monitoring] Onset: 10-27-2016 Resolved: 10-30-2016 10-30-2016 Episodic Other connective tissue disease (4 sources) [...] initial encounter] Onset: 09-12-2016 09-22-2016 Episodic Other injuries and conditions due to external causes (10 sources) Open wound; Translations: [Other injury of unspecified body region, initial encounter] Onset: 09-23-2016 Resolved: 10-30-2016 10-30-2016 Episodic Other lower respiratory disease (5 sources) Dyspnea; Translations: [Shortness of breath] Onset: 05-02-2013 Episodic Other lower respiratory disease (5 sources) Dyspnea, unspecified; Translations: [DYSPNEA UNSPECIFIED] Onset: 04-19-2022 Episodic Other lower respiratory disease (4 sources) Shortness of breath; Translations: [SHORTNESS OF BREATH] Onset: 04-10-2022 Episodic Other non-traumatic joint disorders (20 sources) Pain in right hip joint; Translations: [Pain in right hip] Onset: 07-19-2015 07-19-2015 Episodic Other non-traumatic joint disorders (2 sources) Arthralgia of the pelvic region and thigh; Translations: [Pain in joint, pelvic region and thigh] Onset: 09-24-2018 Episodic Other non-traumatic joint disorders (3 sources) Hip pain; Translations: [Pain in right hip] Onset: 07-19-2015 07-19-2015 Episodic Other upper respiratory infections (4 sources) [...] pneumonia; Translations: [Pneumonia, unspecified organism] Onset: 01-04-2017 Resolved: 12-15-2016 02-05-2017 Episodic Residual codes; unclassified (20 sources) History of lumbar laminectomy; Translations: [Other specified postprocedural states] Onset: 07-19-2015 10-30-2016 Episodic Residual codes; unclassified (2 sources) Insomnia; Translations: [Insomnia, unspecified] Onset: 04-13-2017 Episodic Residual codes; unclassified (2 sources) Requires influenza virus vaccination; Translations: [Need for prophylactic vaccination and inoculation, Influenza] Onset: 01-11-2015 Episodic Unclassified (1 source) COUGH, UNSPECIFIED; Translations: [COUGH, UNSPECIFIED] Onset: 09-20-2021 Results Test Name Value Interpretation Reference Range Facility Basophils Auto (Bld) [#/Vol] on 04-07-2024 Basophils (Bld) [#/Vol] Automated basophil count 0.0-0.1 [facility] Basophils/100 WBC Auto (Bld) on 04-07-2024 Basophils/100 WBC (Bld) Automated basophil % 0.2-2.0 [facility] CNPNon 04-07-2024 CNPN Telephone (ENDOMN) ELENA FELIX ([id number]) 1960 M Date Time Provider Department 04/07/24 ALYSHA EMANUEL During your visit today, we recorded the following information about you: Rena Dacosta 04/07/2024 3:58 PM Signed Patients insurance called in states Teriparatide 20 mcg/dose (600mcg/2.4mL is not covered by patients insurance. They are recommending alternate medications: Forteo, Tymols, Alendronate Sodium. [employer] can be reached at [phone]. Rena Munson Chain Sales Representative II 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 Thank you so much Alysha Emanuel MD Dept of Endocrinology Yaa Koo RN 04/08/2024 12:57 PM Addendum Called and spoke with patient. Explained to patient that the medication prescribed is written as BOOM and will need to reach out to see if he is able to peanut picker medication. Since his insurance recommended Forteo and not generic, hopefully there should not be an issue, however, he will reach out via my chart with an update. Yaa SRINIVASAN RN [facility] Allergies As of Date: 04/07/2024 Noted Allergy Reaction MORPHINE 08/24/2016 5 - Intolerance Comments: Patient thinks that with previous surgery he had a mental psychotic reaction with the combination of Lyrica and Morphine. LISINOPRIL 09/16/2021 16 - Unknown LOSARTAN 05/30/2022 16 - Unknown Date Reviewed: 02/08/2024 Reviewed by: Hao Carreon MA - Fully Assessed Reason for Visit: Medication Problem [65] Cmt: Teriparatide 20 mcg/dose (600mcg/2.4mL Order(s):FORTEO 20 mcg/dose (600mcg/2.4mL)Take 20 mcg subcutaneously dailyDisp: 7.2 mLRfl: 3 Prescriptions as of 04/08/2024 - FORTEO 20 mcg/dose (600mcg/2.4mL) Take 20 mcg subcutaneously daily - Teriparatide 20 mcg/dose (600mcg/2.4mL) Take 20 mcg subcutaneously daily - Insulin [place], Disposable, (BD ULTRAFINE III MINI PEN) 31 gauge x 3/16 USE WITH TERIPARATIDE PENS ONCE TIMES DAILY - calcium citrate (CALCITRATE) 200 mg (950 mg) tab Take 1 tablet by mouth two times a day. - cholecalciferol, Vitamin D3, (VITAMIN D3) 1,250 mcg (50,000 unit) cap capsule Take 1 capsule by mouth one time a week. - ARIPiprazole (ABILIFY) 5 mg tablet Take 5 mg by mouth daily at bedtime. - oxyCODONE-acetaminophen (PERCOCET) 5-325 mg tablet three [...] twice daily. Problem List As Of Date 04/07/2024 Noted Resolved Ankylosing spondylitis (HCC) [M45.9] Esophageal [...] to infectious *02/05/2017 Sinus tachycardia [R00.0] 02/05/2017 Prescriptions ordered this encounter Disp Refills Start (more content not included)... Normal [facility] Eosinophils/100 WBC Auto (Bl d)on 04-07-2024 Eosinophils/100 WBC (Bld) Automated eosinophil % 0.9-7.0 [facility] Erythrocyte distribution wid th Auto (RBC) [Ratio]on 04-07-2024 Erythrocyte distribution width (RBC) [Ratio] Erythrocyte distribution width [Ratio] by Automated count 11.0-15.0 [facility] Estimated glomerular filtrat ion rate (GFR) non- Americanon 04-07-2024 GFR/1.73 sq M.predicted among non-blacks MDRD (S/P/Bld) [Vol rate/Area] Estimated glomerular filtration rate (GFR) non- Low >=60 mL/min/1.73 m 2 [facility] Globulin Calc (S) [Mass/Vol] on 04-07-2024 Globulin (S) [Mass/Vol] Serum globulin measurement by calculation (mass/volume) [facility] Hematocrit Auto (Bld) [Volum e fraction]on 04-07-2024 Hematocrit (Bld) [Volume fraction] Hematocrit [Volume Fraction] of Blood by Automated count Low 42.0-54.0 [facility] Hemoglobin [Mass/volume] in Bloodon 04-07-2024 Hemoglobin (Bld) [Mass/Vol] Hemoglobin [Mass/volume] in Blood Low 14.0-18.0 [facility] Laboratory - Chemistry and C hemistry - challengeon 12-16-2024 Albumin [Mass/Vol] 2.7 g/dL Low 3.4-5.0 [facility] ALP [Catalytic activity/Vol] 90 U/L 46-116 [facility] ALT [Catalytic activity/Vol] 31 U/L 16-63 [facility] AST [Catalytic activity/Vol] 17 U/L 15-37 [facility] Bilirubin [Mass/Vol] 0.4 mg/dL 0.2-1.0 [facility] Calcium [Mass/Vol] 9.0 mg/dL 8.5-10.1 [facility] Chloride [Moles/Vol] 108 mmol/L High 98-107 [facility] CO2 [Moles/Vol] 29.2 mmol/L 21.0-32.0 [facility] Creatinine [Mass/Vol] 1.27 mg/dL 0.70-1.30 [facility] GFR/1.73 sq M.predicted MDRD (S/P/Bld) [Vol rate/Area] mL/min/{1.73_m2} >=60 mL/min/1.73 m 2 [facility] Glucose [Mass/Vol] 105 mg/dL 74-106 [facility] Potassium [Moles/Vol] 4.7 mmol/L 3.5-5.1 [facility] Protein [Mass/Vol] 6.7 g/dL 6.4-8.2 [facility] Sodium [Moles/Vol] 144 mmol/L 136-145 [facility] Urea nitrogen [Mass/Vol] 22.0 mg/dL High 7.0-18.0 [facility] Urea nitrogen/Creatinine [Mass ratio] 17.3 mg/mg [facility] Laboratory - Hematology and Cell countson 04-07-2024 ESR (Bld) [Velocity] 53 mm/h High <=20 [facility] Immature granulocytes/100 WBC (Bld) 0.6 % High 0.0-0.5 [facility] Leukocytes [#/volume] correc christen for nucleated erythrocytes in Blood by Automated counon 04-07-2024 WBC corrected for nucl RBC Auto (Bld) [#/Vol] Leukocytes [#/volume] corrected for nucleated erythrocytes in Blood by Automated coun 4.0-11.0 [facility] Lymphocytes Auto (Bld) [#/Vo l]on 04-07-2024 Lymphocytes (Bld) [#/Vol] Lymphocytes [#/volume] in Blood by Automated count Low 1.2-3.8 [facility] Lymphocytes/100 WBC Auto (Bl d)on 04-07-2024 Lymphocytes/100 WBC (Bld) Lymphocytes/100 leukocytes in Blood by Automated count Low 20.5-60.0 [facility] MCH Auto (RBC) [Entitic mass ]on 04-07-2024 MCH (RBC) [Entitic mass] MCH [Entitic mass] by Automated count 25.9-34.0 [facility] MCHC Auto (RBC) [Mass/Vol]on 04-07-2024 MCHC (RBC) [Mass/Vol] MCHC [Mass/volume] by Automated count 29.9-35.2 [facility] MCV Auto (RBC) [Entitic vol] on 04-07-2024 MCV (RBC) [Entitic vol] MCV [Entitic volume] by Automated count High 80.0-94.0 [facility] Monocytes Auto (Bld) [#/Vol] on 04-07-2024 Monocytes (Bld) [#/Vol] Automated blood monocyte count 0.3-0.8 [facility] Monocytes/100 WBC Auto (Bld) on 04-07-2024 Monocytes/100 WBC (Bld) Automated monocyte % 1.7-12.0 [facility] Neutrophils Auto (Bld) [#/Vo l]on 04-07-2024 Neutrophils (Bld) [#/Vol] Neutrophils [#/volume] in Blood by Automated count 1.4-6.5 [facility] Neutrophils/100 WBC Auto (Bl d)on 04-07-2024 Neutrophils/100 WBC (Bld) Automated neutrophil % 43.0-75.0 [facility] No Panel Informationon 04-07 Eosinophils # (Auto) 0.4 10 3/uL 0.0-0.7 [facility] Immature Granulocyte # (Auto) 0.04 10 3/uL High 0.00-0.03 [facility] Platelet mean volume Auto (B ld) [Entitic vol]on 04-07-2024 Platelet mean volume (Bld) [Entitic vol] Platelet mean volume [Entitic volume] in Blood by Automated count Low 9.5-13.5 [facility] Platelets Auto (Bld) [#/Vol] on 04-07-2024 Platelets (Bld) [#/Vol] Platelets [#/volume] in Blood by Automated count 150-450 [facility] RBC Auto (Bld) [#/Vol]on RBC (Bld) [#/Vol] Erythrocytes [#/volu me] in Blood by Automated count Low 4.70-6.10 [facility] Serum or plasma albumin/glob ulin mass ratioon 04-07-2024 Albumin/Globulin [Mass ratio] Serum or plasma albumin/globulin mass ratio [facility] Serum or plasma anion gap de terminationon 04-07-2024 Anion gap [Moles/Vol] Serum or plasma an ion gap determination [facility] 25(OH)D3 SerPl-mCncon 2023 25-hydroxyvitamin D3 [Mass/Vol] 75.7 ng/mL Normal 31.0-80.0 [facility] Comment on above: Order Comment: Speci men Type: BLOOD SPECIMEN Ordering Facility: [facility] Address: [address] [place] [address] Performed By: #### 5 [id number] #### [facility] CLIA [id number] [address] [place] [address] BIOAVAILABLE TESTOSTERONE, A DULT MALEon 03-17-2024 Albumin [Mass/Vol] 3.9 g/dL Normal 3.9-4.9 [facility] Comment on above: Order Comment: Speci men Type: BLOOD SPECIMEN Ordering Facility: [facility] Address: [address] [place] [address] Performed By: #### S QBTESTM, [id number] #### [facility] CLIA [id number] [address] [place] [address] [place] [address] [place] Sex hormone binding globulin [Moles/Vol] 104 nmol/L High 14-82 [facility] Comment on above: Order Comment: Speci men Type: BLOOD SPECIMEN Ordering Facility: [facility] Address: [address] [place] [address] Performed By: #### S JamarBTESTM, [id number] #### [facility] CLIA [id number] [address] [place] [address] [place] Testosterone [Mass/Vol] 764 ng/dL Normal 193-824 [facility] Comment on above: Order Comment: Speci men Type: BLOOD SPECIMEN Ordering Facility: [facility] Address: [address] [place] [address] Result Comment: A te stosterone level in the 193-320 ng/dL range with associated clinical symptoms is considered low and may indicate hypogonadism (from [facility] 2010 363:123-135). Results >320 ng/dL are considered normal. Performed By: #### S JamarBTESTM, 2730-11 #### [facility] CLIA [id number] [address] [place] [address] [place] TSTBIO 173.6 ng/dL Normal 105.0-324.0 [facility] Comment on above: Order Comment: Speci men Type: BLOOD SPECIMEN Ordering Facility: [facility] Address: [address] [place] [address] Performed By: #### S JamarBTESTM, 2730-11 #### [facility] CLIA [id number] [address] [place] [address] [place] TSTFRC 70.7 pg/mL Normal 38.0-120.0 [facility] Comment on above: Order Comment: Speci men Type: BLOOD SPECIMEN Ordering Facility: [facility] Address: [address] [place] [address] Performed By: #### S QBTESTM, 2730-11 #### [facility] CLIA [id number] [address] [place] [address] [place] TSTFRP 0.9 % Low 1.1-2.6 [facility] Comment on above: Order Comment: Speci men Type: BLOOD SPECIMEN Ordering Facility: [facility] Address: [address] [place] [address] Performed By: #### S QBTESTM, 2731-8 #### [facility] CLIA [id number] [address] [place] [address] [id number] [address] [place] Bioavailable testosterone pe rcentageon 03-17-2024 Testosterone.free+wea kly bound/Testosterone.to michelle [Mass fraction] Bioavailable testosterone percentage Low 1.1-2.6 [facility] Free and bioavailable testos terone measurementon 03-17-2024 Testosterone.free+wea kly bound [Mass/Vol] Free and bioavailable testosterone measurement 38.0-120.0 [facility] Laboratory - Chemistry and C hemistry - challengeon 03-17-2024 Albumin [Mass/Vol] 3.9 g/dL 3.9-4.9 [facility] Calcium [Mass/Vol] 9.6 mg/dL 8.5-10.2 [facility] Chloride [Moles/Vol] 104 mmol/L 98-107 [facility] CO2 [Moles/Vol] 27 mmol/L 22-30 [facility] Creatinine [Mass/Vol] 1.35 mg/dL High 0.73-1.22 [facility] Glucose [Mass/Vol] 147 mg/dL High 74-99 [facility] Comment on above: The [place] Diabete s Association (ADA) provides guidance for cutoff values for fasting glucose and random glucose. The ADA defines fasting as no caloric intake for at least 8 hours. Fasting plasma glucose results between 100 to 125 mg/dL indicate increased risk for diabetes (prediabetes).Fasting plasma glucose results greater than or equal to 126 mg/dL meet the criteria for diagnosis of diabetes. In the absence of unequivocal hyperglycemia, results should be confirmed by repeat testing. In a patient with classic symptoms of hyperglycemia or hyperglycemic crisis, random plasma glucose results greater than or equal to 200 mg/dL meet the criteria for diagnosis of diabetes.Reference: Standards of Medical Care in Diabetes 2016, [place] Diabetes Association. Diabetes Care. 2016.39(Suppl 1). Magnesium [Mass/Vol] 1.8 mg/dL 1.7-2.3 [facility] Potassium [Moles/Vol] 4.6 mmol/L 3.7-5.1 [facility] Sodium [Moles/Vol] 141 mmol/L 136-144 [facility] Testosterone [Mass/Vol] 173.6 ng/dL 105.0-324.0 [facility] Urea nitrogen [Mass/Vol] 20 mg/dL 01-14 [facility] Magnesium SerPl-mCncon 03-17 Magnesium [Mass/Vol] 1.8 mg/dL Normal 1.7-2.3 [facility] Comment on above: Order Comment: Speci men Type: BLOOD SPECIMEN Ordering Facility: [facility] Address: [address] [place] [address] Performed By: #### 5 7021-8 #### [facility] CLIA [id number] [address] [place] [address] No Panel Informationon 03-17 Estimated GFR (CKD-EPI) 59 mL/min/1.73m??? Low >=60 [facility] Comment on above: Estimated Glomerular Filtration Rate (eGFR) is calculated using the 2020 CKD-EPI creatinine equation. This equation utilizes serum creatinine, sex, and age as parameters. The creatinine assay has traceable calibration to isotope dilution-mass spectrometry. Refer to KDIGO guidelines for clinical interpretation. In patients with unstable renal function, e.g. those with acute kidney injury, the eGFR may not accurately reflect actual GFR. Parathyroid Hormone (Intact) 71 pg/mL High 15-65 [facility] Phosphorus Level 2.5 mg/dL Low 2.7-4.8 [facility] Sex Hormone Binding Globulin 104 nmol/L High 14-82 [facility] Testosterone Level 764 ng/dL 193-824 [facility] Comment on above: A testosterone level in the 193-320 ng/dL range with associated clinical symptoms is considered low and may indicate hypogonadism (from NEJM 2010 363:123-135). Results >320 ng/dL are considered normal. PTH-Intact SerPl-[facility] 11-2 Parathyrin.intact [Mass/Vol] 71 pg/mL High 15-65 [facility] Comment on above: Order Comment: Speci men Type: BLOOD SPECIMEN Ordering Facility: [facility] Address: [address] [place] [address] Performed By: #### S QBTEST, 2731-8 #### [facility] CLIA [id number] [address] [place], [place] [address] [address] [place] Renal function 2000 panelon 03-17-2024 Albumin [Mass/Vol] 3.8 g/dL Low 3.9-4.9 [facility] Comment on above: Order Comment: Speci men Type: BLOOD SPECIMEN Ordering Facility: [facility] Address: [address] [place] [address] Performed By: #### 5 7021-8 #### [facility] CLIA [id number] [address] [place] [address] Anion gap [Moles/Vol] 10 mmol/L Normal 8-15 [facility] Comment on above: Order Comment: Speci men Type: BLOOD SPECIMEN Ordering Facility: [facility] Address: [address] [place] [address] Performed By: #### 5 7021-8 #### [facility] CLIA [id number] [address] [place] [address] Calcium [Mass/Vol] 9.6 mg/dL Normal 8.5-10.2 [facility] Comment on above: Order Comment: Speci men Type: BLOOD SPECIMEN Ordering Facility: [facility] Address: [address] [place] [address] Performed By: #### 5 7021-8 #### [facility] CLIA [id number] [address] [place] [address] Chloride [Moles/Vol] 104 mmol/L Normal 98-107 [facility] Comment on above: Order Comment: Speci men Type: BLOOD SPECIMEN Ordering Facility: [facility] Address: [facility] [place] [id number] Performed By: #### 5 7021-8 #### [facility] CLIA [id number] [address] [place] [address] CO2 [Moles/Vol] 27 mmol/L Normal 22-30 [facility] Comment on above: Order Comment: Speci men Type: BLOOD SPECIMEN Ordering Facility: [facility] Address: [address] [place] [address] Performed By: #### 5 7021-8 #### [facility] CLIA [id number] [address] [place] [address] Creatinine [Mass/Vol] 1.35 mg/dL High 0.73-1.22 [facility] Comment on above: Order Comment: Speci men Type: BLOOD SPECIMEN Ordering Facility: [facility] Address: [address] [place] [address] Performed By: #### 5 7021-8 #### [facility] CLIA [id number] [address] [place] [address] Creatinine and Glomerular filtration rate.predicted panel (S/P/Bld) 59 mL/min/1.73m??? Low >=60 [facility] Comment on above: Order Comment: Speci men Type: BLOOD SPECIMEN Ordering Facility: [facility] Address: [address] [place] [address] Result Comment: Aneta mated Glomerular Filtration Rate [...] accurately reflect actual GFR. Performed By: #### 5 7021-8 #### [facility] CLIA [id number] [address] [place] [address] Glucose [Mass/Vol] 147 mg/dL High 74-99 [facility] Comment on above: Order Comment: Speci men Type: BLOOD SPECIMEN Ordering Facility: [facility] Address: [address] [place] [address] Result Comment: The [place] Diabetes Association (ADA) provides guidance for cutoff [...] Standards of Medical Care in Diabetes 2016, [place] Diabetes Association. Diabetes Care. 2016.39(Suppl 1). Performed By: #### 5 7021-8 #### [facility] CLIA [id number] [address] [place] [address] Phosphate [Mass/Vol] 2.5 mg/dL Low 2.7-4.8 [facility] Comment on above: Order Comment: Vii men Type: BLOOD SPECIMEN Ordering Facility: [facility] Address: [address] [place] [address] Performed By: #### 5 7021-8 #### [facility] CLIA [id number] [address] [place] [address] Potassium [Moles/Vol] 4.6 mmol/L Normal 3.7-5.1 [facility] Comment on above: Order Comment: Speci men Type: BLOOD SPECIMEN Ordering Facility: [facility] Address: [address] [place] [address] Performed By: #### 5 7021-8 #### [facility] CLIA [id number] [address] [place] [address] Sodium [Moles/Vol] 141 mmol/L Normal 136-144 [facility] Comment on above: Order Comment: Speci men Type: BLOOD SPECIMEN Ordering Facility: [facility] Address: [address] [place] [address] Performed By: #### 5 7021-8 #### [facility] CLIA [id number] [address] [place] [address] Urea nitrogen [Mass/Vol] 20 mg/dL Normal 9- [facility] Comment on above: Order Comment: Speci men Type: BLOOD SPECIMEN Ordering Facility: [facility] Address: [address] [place] [address] Performed By: #### 5 7021-8 #### [facility] CLIA [id number] [address] [place] [address] Serum or plasma anion gap de terminationon 03-17-2024 Anion gap [Moles/Vol] Serum or plasma an ion gap determination 12-05 [facility] Serum or plasma calcidiol me asurement (mass/volume)on 03-17-2024 25-hydroxyvitamin D3 [Mass/Vol] Serum or plasma calcidiol measurement (mass/volume) 31.0-80.0 [facility] CALCIUM, 24 HR URINEon 02-11 Calcium (24H U) [Mass/Time] 39.1 mg/24 hr Low 100.0-300.0 [facility] Comment on above: Order Comment: Speci men Type: URINE SPECIMEN Ordering Facility: [facility] Address: [address] [place] [address] Performed By: #### U CALCD, 2956-1 #### [facility] CLIA [id number] [address] [place] [address] [place] #### UCRD #### [facility] CLIA [id number] [address] [place] [address] [place] [facility] CLIA [id number] [address] [place] [address] CREATININE, 24 HOUR URINEon 02-12-2024 Creatinine (24H U) [Mass/Time] 1.506 g/24 hr Normal 1.000-2.000 [facility] Comment on above: Order Comment: Speci men Type: URINE SPECIMEN Ordering Facility: [facility] Address: [address] [place], [place] [address] Performed By: #### U CALCD, 2955- #### [facility] CLIA [id number] [address] [place] [address] [place] #### UCRD #### [facility] CLIA [id number] [address] [place] [address] [place] [facility] CLIA [id number] [address] [place] [address] PERIOD (HRS) 24 hr Normal [facility] Comment on above: Order Comment: Speci men Type: URINE SPECIMEN Ordering Facility: [facility] Address: [address] [place] [address] Performed By: #### U CALCD, 2955- #### [facility] CLIA [id number] [address] [place] [address] [place] #### UCRD #### [facility] CLIA [id number] [address] [place] [address] [place] [facility] CLIA [id number] [address] [place], [place] [address] Specimen volume (24H U) 1.7 L Normal [facility] Comment on above: Order Comment: Speci men Type: URINE SPECIMEN Ordering Facility: [facility] Address: [address] [place] [address] Performed By: #### U CALCD, 2955- #### [facility] CLIA [id number] [address] [place] [address] [place] #### UCRD #### [facility] CLIA [id number] [address] [place], [place] [address] [place] [facility] CLIA [id number] [address] [place], [place] [address] Citrate 24h Ur-mRateon 02-11 Citrate (24H U) [Mass/Time] 418 mg/24hrs Normal 120-930 [facility] Comment on above: Order Comment: Speci men Type: BLOOD SPECIMEN Ordering Facility: [facility] Address: [address] [place] [address] Result Comment: This test was developed, and its performance characteristics determined by the [facility] Department of Pathology and Laboratory Medicine. It has not been cleared or approved by the FDA. The [facility] Department of Pathology and Laboratory Medicine is regulated under CLIA as qualified to perform high-complexity testing. This test is used for clinical purposes. It should not be regarded as investigational or for research. Performed By: #### 5 7021-8 #### [facility] CLIA [id number] [address] [place] [address] Oxalate 24h Ur-mRateon 02-11 Oxalate (24H U) [Mass/Time] 39 mg/24hrs Normal 7-44 [facility] Comment on above: Order Comment: Speci men Type: URINE SPECIMEN Ordering Facility: [facility] Address: [address] [place] [address] Result Comment: This test was developed, and its performance characteristics determined by the [facility] Department of Pathology and Laboratory Medicine. It has not been cleared or approved by the FDA. The [facility] Department of Pathology and Laboratory Medicine is regulated under CLIA as qualified to perform high-complexity testing. This test is used for clinical purposes. It should not be regarded as investigational or for research. Performed By: #### U CALCD, 2956-1 #### [facility] CLIA [id number] [address] [place] [address] [place] #### UCRD #### [facility] CLIA [id number] [address] [place] [address] [place] [facility] CLIA [id number] [address] [place] [address] Sodium 24h Ur-sRateon 2023 Sodium (24H U) [Moles/Time] 223 mmol/24 hr High 40-220 [facility] Comment on above: Order Comment: Speci men Type: URINE SPECIMEN Ordering Facility: [facility] Address: [facility] [place] [address] Performed By: #### U CALCD, 2956-1 #### [facility] CLIA [id number] [address] [place] [address] [place] #### UCRD #### [facility] CLIA [id number] [address] [place] [address] [place] [facility] CLIA [id number] [address] [place], [place] [address] Urate 24h Ur-mRateon 024 Urate (24H U) [Mass/Time] 642.6 mg/24hr Normal 250.0-750.0 [facility] Comment on above: Order Comment: Speci men Type: BLOOD SPECIMEN Ordering Facility: [facility] Address: [facility] [place] [address] Performed By: #### 5 7021-8 #### [facility] CLIA [id number] [address] [place], [place] [address] CNOVon 02-08-2024 CNOV Office Visit (ENCAMN ) ELENA FELIX ([id number]) 1960 M Date Time Provider Department 02/08/24 10:00 AM ALYSAH EMANUEL During your visit today, we recorded the following information about you: Pulse Blood pressure Weight Height 73/minute 124/80 137.5 kg 1.85 m Alysha Emanuel MD 02/08/2024 10:38 AM Addendum It?s very important to do the 24 hour urine collection correctly: 1) Keep jug on ice or in fridge while collecting 2) Plan to turn the jug in on the day it is completed or within 3 days of completion 3) Right before you start the collection (e.g. 6:59am), urinate into the toilet, not into the jug 4) Once you start the collection (e.g. 7:00am), all of your urine goes into the jug. If you forget and go into the toilet, dump out the urine and start the test over the next chance you have. 5) Collect ALL of your urine for 24 hours, no more and no less. If you think you will fill up the jug you were provided before the 24-hour alicia, you will need another jug. If you stop before the 24-hour period or collect urine for longer than 24 hours, the test will be completely unhelpful. 6) Right before you finish the collection (e.g. 6:59 am the next day), urinate into the jug. 7) Turn in the jug within three days of when you collect it (keep in refrigerator until then). BONE MINERAL DENSITY PATIENT INSTRUCTIONS Bone mineral density testing measures the amount of calcium in certain parts of your bones. This information determines how strong your bones are. The test is used to detect osteoporosis, a disease in which the bone's mineral content and density are low, increasing a person's risk of fractures. The lumbar spine (lower back) and the hip are the skeletal sites usually examined. For the test, remember that: 1. You cannot take this test if you are . 2. Eat a normal diet on the day of the test. 3. Take your medications as you normally would. 4. DO NOT take calcium supplements (such as Tums) for 24 hours before the test. 5. On the day of the test, leave valuables (jewelry or credit cards) at home. 6. The test should be performed prior to oral, rectal or IV contrast studies, or at least 7 days after any of these studies. For the test, you may be asked to wear a hospital gown. You will lie on your back, on a padded table, in a comfortable position. Generally, you can resume your usual activities immediately. Start calcium/D 500 mg twice daily with D- please start 50,000 international unit(s) WEEKLY of vitamin D Labs in 6 weeks Once PTH is normal (6 weeks), I will order bone medication- Alysha Wood MD 02/08/2024 11:40 AM Signed Endocrine consult note Mr. Felix is a 63 year old male here today [place] the [place] [id number] [facility] [address] for evaluation, management, and treatment of the following issues: bone health My final recommendations will be communicated back to the requesting physician by way of shared medical record or letter. Coming from [place], [place] Mr. Felix is here to discuss bone health. Pmhx significant for prior left hip fracture in 01/2023 after tripping on bathroom rug. Pmhx signficant for ankylosing spondylitis since age 19 yrs. Took steroids for 10 years while in 20 for the . There have been other fractures (ankles, fingers, right hand) but were childhood in setting of football, bicycling, etc. Some height loss but four back surgeries complicated by infection at operative site - hospitalized for 9.5 weeks. No high risk meds now. 6'4 baseline height Height today- 6'1 but had 4 back surgeries Some decrease in sex drive. One kidney stone- 2004 Keen to prevent additional fractures. Due for DXA but can only get it checked in forearm. Patient is not taking calcium and vitamin D. Lot of soda - 2 cans/day There is no current or recent tobacco use and no alcohol use. There is no corticosteroid use now, no lithium, and no thiazides. There is history of hyperparathyroidism from D deficiency. No prior cancer, radiation exposure, or family history of osteoporosis, calcium, or bone disorders. PAST MEDICAL HISTORY Diagnosis Date Ankylosing spondylitis (HCC) Dr Hodges; age 19 yrs Arthritis Back pain four back surgeries Cardiomyopathy (HCC) Nonischemic Congestive Cerebrovascular small vessel disease 08/24/2016 On ASA DVT (deep venous thrombosis) ([facility]) Esophageal reflux Former smoker Kidney stones Major depressive disorder with single episode, in remission ([facility]) 08/24/2016 Morbid obesity with BMI of 40.0-44.9, adult ([facility]) Neuropathy Obstructive sleep apnea syndrome, severe On auto-CPAP - sleep study done on 07/10/16 Pneumonia POTS (postural orthostatic tachycardia syndrome) PAS (more content not included)... Normal [facility] Urology Office/Clinic Noteon 01-04-2024 Urology Office/Clinic Note Urology Office/Clinic Note Chief Complaint f/u HPI Staff 63 year old male patient presents today for a follow up from excision of penile condyloma 12/25/23 to discuss path results. Dysuria: _no Incomplete bladder emptying: _no Hematuria: _no Frequency: _q3-4 hrs Urgency: _no Nocturia: _2x Stream: _normal Leaking: _no Post void dripping: _no Wearing pads/ Depends: _no Urge incontinence: _no Stress incontinence: no Incontinence without Sensory Awareness: _no Abdominal pain: _no Flank pain: _no Sexual complaints: _ History of Present Illness Tests reviewed: reviewed UA and path. I have reviewed the previous health record information and history for this patient from Dr. Bell. I have reviewed and verified the staff HPI to be accurate for this encounter. There have been no associated fever, chills, flank pain, or blood in the urine. Denies any urinary infections since last encounter. Review of Systems PHQ Score Initial Depression Screen Score: 0 SCORE ROS - Provider Constitutional: denies weight loss, denies hot flashes. Eyes: denies eye problems. Gastrointestinal: denies nausea, denies vomiting. Cardiovascular: denies chest pain or angina. Integumentary: no dryness Musculoskeletal: denies musculoskeletal symptoms. ENMT: denies otolaryngeal symptoms. Respiratory: no shortness of breath. Heme/Lymph: denies easy bleeding tendency, denies easy bruising tendency. Psychiatric: no confusion, no anxiety. Genitourinary: See HPI. Physical Exam Vitals & Measurements BP: 118/78 HT: 74 in HT: 188 cm WT: 134 kg WT: 294.8 lb BMI: 37.91 General Appearance: alert, no distress, well nourished, well developed male. Genitourinary: S/p excision of penile inclusion cyst. Stitches removed. No signs of infection. Healing well. Assessment/Plan 1. Inclusion cyst (L72.0: Epidermal cyst) Reports he has a mobile bump on his foreskin. Does produce pain. Denies drainage. PE 07/16/23: ~1 cm inclusion cyst in foreskin on ventral surface, near frenulum. S/p local excision of 1 cm penile inclusion cyst 12/25/23. Path ~epidermal inclusion cyst. Results reviewed with pt. PE: ~stitches removed. No signs of infection. Healing well. -Avoid scrubbing area in shower for 1 more week 2. BPH with urinary obstruction (N40.1: Benign prostatic hyperplasia with lower urinary tract symptoms) PSA: 05/30/21 - 2.60 08/02/23 - 1.08 Taking Flomax 0.4mg bid. -Has follow up scheduled 06/2024 w/ PSA 3. Chronic prostatitis (N41.1: Chronic prostatitis) Has been tx'd with Levaquin 500mg in the past. UA today negative for infection or blood. Asx currently. 4. Epididymal cyst (N50.3: Cyst of epididymis) Scrotal US 01/02/2020 shows 8 mm right epididymal cyst. Asymptomatic. 5. Erectile dysfunction (N52.9: Male erectile dysfunction, unspecified) Reports he has difficulty maintaining an erection. High libido. States his ejaculate is clear and low volume. Aware this is due to Flomax. Not on any Nitroglycerin products. Is taking a few different BP medications. Pt understands that Nitro cannot be taken with oral ED meds. Started on Sildenafil 100mg prn at last visit. Pt was advised to break it in half. Follow-up With When Contact Information ARABELLA MUNIZ, Jerrod Moya, URL [address] [place] [address]- Additional Instructions: 06/2024 with PSA Patient Education Excision of Skin Lesions I, Haylee Gutierres, personally scribed for Dr. Bell on 01/04/2024 11:25:49. . Documentation recorded by the scribe, Haylee Gutierres, accurately reflects the services(s) I performed and decisions made by me. Authenticated by Dr. Bell on 01/04/2024 11:28:16. Problem List/Past Medical History Ongoing Ankylosing spondylitis Arthritis BPH with urinary obstruction Chronic prostatitis Clostridium difficile diarrhea Cyst of epididymis Epididymal cyst Erectile dysfunction GERD - Gastro-esophageal reflux disease Heart disease Hyperlipidemia Inclusion cyst Kidney stone Obstructive sleep apnea syndrome Peripheral neuropathy Urinary frequency Historical Arthritis Tachycardia Procedure/Surgical History Repair of hip (02/18/2023), Colonoscopy, flexible; with removal of tumor(s), polyp(s), [...] guidance (12/17/2013), Injection of facet joint using fluoros (more content not included)... Normal [facility] Comment on above: Result Comment: Elec tronically Signed By: Jerrod BELL MD\.br\Date and Time Signed: 01/04/24 11:28 EDT\.br\Electronically Co-Signed By: Haylee Gutierres.br\Date and Time Co-Signed: 01/04/24 11:26 EDT Surgical Pathology Reporton 12-27-2023 Surgical Pathology Report [facility] [address] [place] [address]- Surgical Pathology Report Collected Date/Time: 12/25/2023 09:49 EDT Pathologist: Latisha MUNIZ, Shady Received Date/Time: 12/25/2023 14:49 EDT ARABELLA MUNIZ, Jerrod BELL MD, Jerrod Walton Surgical Pathology Report - 12/27/2023 14:38 EDT - Auth (Verified) Final Diagnosis PENIS, CYST, EXCISION: - Epidermal inclusion cyst. (Electronic Signature) Yan. Latisha MD 12/27/2023 14:38 Clinical Information Pre-Op Diagnosis: Penile inclusion cyst Procedure: Excision of penile inclusion cyst Post-Op Diagnosis: Penile inclusion cyst Specimen(s) Received Penile inclusion cyst Gross Description Received in formalin labeled with patient name, number, and penile inclusion cyst is an ovoid fragment of stroud firm tissue measuring 0.8 x 0.6 x 0.5 cm. The outer surface is smooth and slightly glistening. It is serially sectioned and consists of a cyst with a cystic wall measuring up to 0.1 cm and containing white/yellow keratin-like material. Specimen is entirely submitted in one cassette. (DC) DC:[facility] Microscopic Description Microscopic examination performed unless gross only specified. Normal [facility] Comment on above: Performed By: #### [id number] #### [facility] [address] [place] [address] Main OR Intraoperative Recor don 12-25-2023 Main OR Intraoperative Record Main OR Intraoperative Record IntraOp Document Type FTURO Summary Primary Physician: Jerrod BELL MD Finalized Date/Time: 12/25/23 10:00:53 Pt. Name: ELENA FELIX/Sex: 1960 Male Med Rec #: [id number] Physician: Jerrod BELL MD Financial #: [id number] Pt. Type: O Room/Bed: / Admit/Disch: 12/25/23 08:20:37 - Institution: Case Times FTURO Entry 1 Patient Times In Room 12/25/23 09:37:00 Out Room 12/25/23 10:02:00 Procedure Times Start 12/25/23 09:41:00 Stop 12/25/23 09:56:00 Anesthesia Times Last Modified By: Aleksandra BRAGG, Agata Rodríguez 12/25/23 09:56:38 Case Attendance FTURO Entry 1 Entry 2 Entry 3 Case Attendee ARABELLA MUNIZ, Jerrod Lake RN, Mary Garcia Role Performed Surgeon - Primary Conference Assistant - Primary Scrub - Primary Time In 12/25/23 09:37:00 12/25/23 09:37:00 12/25/23 09:37:00 Time Out 12/25/23 10:02:00 12/25/23 10:02:00 12/25/23 10:02:00 Procedure PENILE CONDYLOMA PENILE CONDYLOMA PENILE CONDYLOMA EXCISION(.) EXCISION(.) EXCISION(.) Comments Last Modified By: Aleksandra BRAGG, Agata Lake RN, Agata Tom RN 12/25/23 Erica Rodríguez 12/25/23 Erica Rodríguez 12/25/23 09:56:39 09:56:39 09:56:39 Entry 4 Case Attendee ECHO MUNIZ, MOLLY Role Performed Staff - Other Time In 12/25/23 09:37:00 Time Out 12/25/23 10:02:00 Procedure PENILE CONDYLOMA EXCISION(.) Comments OBSERVING Last Modified By: Agata Lake RN 12/25/23 09:58:44 Surgical Procedures FTURO Entry 1 Procedure Description Procedure PENILE CONDYLOMA Modifiers . EXCISION Surgeon Description EXCISION OF PENILE FORESKIN CYST Primary Procedure Yes Primary Surgeon Jerrod BELL MD Start 12/25/23 09:41:00 Stop 12/25/23 09:56:00 Anesthesia Type Local Surgical Service Urology Wound Class 2 - Clean-Contaminated Last Modified By: Agata Lake RN 12/25/23 09:56:38 General Case Data FTURO Pre-Care Text: Classifies surgical wound, implements aseptic technique, initiates traffic control Entry 1 Case Information OR URO 1 FT Case Level None Wound Class 2 - Clean-Contaminated Specialty Urology Preop Diagnosis INCLUSION CYST Postop Same As Preop Yes Postop Diagnosis INCLUSION CYST Outcomes Met? Yes Last Modified By: Agata Lake RN 12/25/23 09:37:29 Post-Care Text: The patient is free from signs and symptoms of infection EU IntraOp - FTURO Pre-Care Text: Implements protective measures prior to operative or invasive procedure, confirms identity before the operative or invasive procedure, verifies operative procedure, surgical site, and laterality Entry 1 EU Perioperative Protocols Procedure(s) PENILE CONDYLOMA Patient Identity Birthday, ID Band EXCISION(.) Verified (select at Check, Patient least 2): Participation Consents / H and P H&P, Surgery/Procedure Operative Site N/A Verified Consent Marking Verified Surgical Site Yes Laterality Verified n/a Verified Procedure Verified Yes Correct Patient Yes Position Verified Availability Equipment, Medication Time Out Jerrod BELL MD, Verified (If Participants Aleksandra BRAGG, Agata Ornelas) Erica Rodríguez, Mary Dumont, ECHO MUNIZ, MOLLY Time Out Complete 12/25/23 09:40:00 Allergies Reviewed? Yes Allergies Reviewed Self/Patient With Body Position Supine Prep Area PENIS Prep Agents Betadine Solution Skin. Condition Unable to Visualize, Description partially clothed and Other/See Comments draped, CYST ON FORESKIN Additional Other (See Comment) Specimens Comment Penile inclusion cyst Specimens Collected sent in formalin per surgeon Vitals - EU Blood Pressure 140/80 Pulse 82 bpm Respirations 18 br/min SPO2 99 % I&O - EU Outcomes Met? Yes Last Modified By: Agata Lake RN 12/25/23 09:52:23 Post-Care Text: The patient is free from signs and symptoms of injury caused by extraneous objects Sign Out FTURO Entry 1 Before Patient Leaves OR Nurse verbally Yes Nurse verbally Yes confirms with the confirms with the team the name of team that the procedure(s) instrument, sponge, recorded and needle counts are correct (or N/A) Nurse verbally Yes Nurse verbally n/a confirms with the confirms with the team how the team whether there specimen is labeled are any equipment (including patient problems to be name), if applicable addressed Sign Out Complete 12/25/23 09:56:00 Last Modified By: Agata Lake RN 12/25/23 09:56:24 Case Comments Finalized By: Agata Lake RN Document Signatures Signed By: Agata Lake RN 12/25/23 10:00 Normal [facility] Main OR Preoperative Recordo n 12-25-2023 Main OR Preoperative Record Main OR Preoperative Record Holding Area Document Type FTURO Summary Primary Physician: Jerrod BELL MD Finalized Date/Time: 12/25/23 09:38:14 Pt. Name: ELENA FELIX/Sex: 1960 Male Med Rec #: [id number] Physician: Jerrod BELL MD Financial #: [id number] Pt. Type: O Room/Bed: / Admit/Disch: 12/25/23 08:20:37 - Institution: Case Times Holding FTURO Pre-Care Text: Verifies consent for planned procedure, identifies individual values and wishes concerning care, includes family members in perioperative teaching Secures patient's records' belongings, and valuables, maintains patient's dignity and privacy, and maintains patient confidentiality Entry 1 In Holding 12/25/23 09:02:00 Outcomes Met? Yes Last Modified By: Rosanna Hernandez LPN 12/25/23 09:02:05 Post-Care Text: The patient participates in decisions affecting his or her perioperative plan of care The patient's right to privacy is maintained Surgery Checklist FTURO Entry 1 Patient Birthday, ID Band Procedure History and Physical, Identification: Check, Patient Verification: Surgical Consent, With Participation Patient NPO after Midnight: n/a Personal Items: Glasses Limitations: up ad khalif Complaints of Pain: No Skin Integrity Intact, [place], Warm, & Dry Vitals - EU Blood Pressure 140/80 Pulse 82 bpm Respirations 18 br/min SPO2 99 % Additional None RN Reviewed Yes Specimens Collected Last Modified By: Agata Lake RN 12/25/23 09:38:10 Finalized By: Agata Lake RN Document Signatures Signed By: Rosanna Hernandez LPN 12/25/23 09:05 Agata Lake RN 12/25/23 09:38 Normal [facility] Operative Reporton Operative Report Operative Report Patient: ELENA FELIX Age: 63 years Sex: Male : 1960 Associated Diagnoses: None Author: Jerrod BELL MD Procedure Operative Information Details: Date/ Time: 12/25/2023 10:03:00. Pre-Op Dx: Condyloma - A63.0, Penile inclusion cyst. Post-Op Dx: Penile inclusion cyst. Anesthesia Type: Local. Procedure: Local Excision of Penile Condyloma, Local excision of 1 cm penile inclusion cyst. Complications: None. Risks/Benefits/Informed Consent: Surgical risks, benefits, details of the procedure have been explained to the patient, Full informed consent has been obtained. Intraoperative Information Prepped: The patient was brought to the procedure room, The patient was placed on the table in the supine position, The areas were prepped with Betadine. Anesthesia: The lesions were then anesthetized with infiltrated xylocaine by creating a wheal in the skin underneath them. Procedure: I then used a forceps and a scalpel and excised the lesions, The Bovie was used to coagulate, Sterile dressing was applied, 5-0 nylon in an interrupted fashion was used. Specimens Removed: Inclusion cyst from penile skin. Devices Implanted: None. Postoperative Information Discharge: Patient tolerated the procedure well, Follow up will be in a week to remove the sutures. Normal [facility] Comment on above: Result Comment: Elec tronically Signed By: ARABELLA MUNIZ, Jerrod Stern\Date and Time Signed: 12/25/23 10:05 EDT CNOVSPon 12-04-2023 CNOVSP Visit (SP) Office ([facility]) ELENA FELIX ([id number]) 1960 M Date Time Provider Department 12/04/23 9:30 AM MERLY MARTI During your visit today, we recorded the following information about you: Temperature Pulse Respiration Blood pressure 97.3 degrees 97/minute 16/minute 97/65 Weight Height 138.5 kg 1.88 m Merly Marti MD 12/04/2023 10:01 AM Signed PATIENT NAME: Elena Felix CLINIC NO.: [id number] ATTENDING PHYSICIAN: Merly Marti MD DATE OF SERVICE: December 04, 2023 Some of the elements of this note have been copied from my previous progress note dated 11/15/2022. All the information has been reviewed carefully. Dear Dr. Silvana Lundberg, here is an update on a follow up visit on male Elena Felix at the clinic December 04, 2023 Diagnosis: DVT Treatment History: HPI: Elena Felix is a 63 year old year old male here for follow up. No new complaints and continues to be off the Eliquis. He does complain of fatigue and denies any fevers and or chills. Eating well. PAST MEDICAL HISTORY No date: Ankylosing spondylitis ([facility]) Comment: Dr Hodges No date: Ankylosing spondylitis ([facility]) No date: Arthritis No date: Back pain No date: Cardiomyopathy ([facility]) Comment: Nonischemic Congestive 08/24/2016: Cerebrovascular small vessel disease Comment: On ASA No date: DVT (deep venous thrombosis) ([facility]) No date: Esophageal reflux No date: Former smoker No date: Kidney stones 08/24/2016: Major depressive disorder with single episode, in remission ([facility]) No date: Morbid obesity with BMI of 40.0-44.9, adult ([facility]) No date: Neuropathy No date: Obstructive sleep apnea syndrome, severe Comment: On auto-CPAP - sleep study done on 07/10/16 No date: Pneumonia Social History Tobacco Use Smoking status: [...] of hands/feet. No weakness. PHYSICAL EXAMINATION: BP 97/65 Pulse 97 Temp (Src) 97.3 (Temporal) Resp 16 Ht 6' 2.016 (1.88m) Wt 305 lb 5.4 oz (138.5kg) SpO2 97% BMI 39.19 kg/(m2). Wt 135.5 kg (298 lb 12.8 [...] : Deferred LABS: Glucose (mg/dL) Date Value 11/07/2023 109 12/15/2016 101 Potassium (mmol/L) Date Value 11/07/2023 4.5 12/15/2016 4.1 Sodium (mmol/L) Date Value 11/07/2023 147 12/15/2016 140 Chloride (mmol/L) Date Value 11/07/2023 111 12/15/2016 96 CO2 (mmol/L) Date Value 11/07/2023 26 12/15/2016 31 Creatinine (mg/dL) Date Value 11/07/2023 1.43 12/15/2016 0.87 BUN (mg/dL) Date Value 11/07/2023 19 12/15/2016 10 Anion Gap (mmol/L) Date Va (more content not included)... Normal [facility] CNOVon 11-29-2023 CNOV Office Visit ([facility] ) ELENA FELIX ([id number]) 1960 M Date Time Provider Department 11/29/23 9:45 AM MISTY WALLACE [facility] During your visit today, we recorded the following information about you: Misty Wallace MD 11/29/2023 1:23 PM Signed [facility] Established Visit Date of Injury: January 2023 Injury: Left femoral neck fracture, treated at outside hospital History: Patient presents to clinic 10 months from the above injury, he states that he is doing much better and has been able to ambulate without any pain in the left hip. He states that occasionally he will have mild discomfort, but overall is doing much better than the last time he saw me 2 months ago. Physical Exam: General: Awake and alert Left Lower Extremity: Vascular: Foot warm and well perfused with brisk capillary refill Neuro: Sensation intact in saphenous/sural/deep peroneal/superficial peroneal/tibial nerve distribution and 5/5 EHL/TA/GSC Musculoskeletal: No pain with gentle range of motion of hip, or hip flexion/axial load Imaging: I personally reviewed xrays and discussed with patient: Demonstrate maintained alignment no interval displacement, interval healing of fracture Assessment and Plan: Patient is a 63 year old male 10 months weeks s/p left hip cephalomedullary nail at outside hospital -Patient is progressing appropriately -Clinically, patient has healed fracture. Recommend no further surgical treatment -Patient states that he has had problem with his right total hip arthroplasty since the surgery was done. He would like to see an arthroplasty surgeon. Business cards of to my arthroplasty partners were given to the patient today, he will reach out to schedule and let us know if he has any difficulties -Weightbearing: Weight bearing as tolerated -Follow up: as needed Misty Wallace MD Allergies As of Date: 11/29/2023 Noted Allergy Reaction MORPHINE 08/24/2016 5 - Intolerance Comments: Patient thinks that with previous surgery he had a mental psychotic reaction with the combination of Lyrica and Morphine. LISINOPRIL 09/16/2021 16 - Unknown LOSARTAN 05/30/2022 16 - Unknown Date Reviewed: 11/29/2023 Reviewed by: Misty Wallace MD - Fully Assessed Reason for Visit: Established Patient [175] Follow Up [171] Primary Visit Diagnosis:Closed fracture of hip, left, with delayed healing, subsequent encounter [S72.002G] Order(s):XR HIP GENERAL 3V PELV/AP/LAT LEFT [4987718] Order #: [id number] FUTURE CONSULT TO PHYSICAL THERAPY [9032] Order #: [id number]: 1 FUTURE Prescriptions as of 11/29/2023 - ARIPiprazole (ABILIFY) 5 mg tablet Take 5 mg by mouth daily at bedtime. - ferrous sulfate 325 mg (65 mg [...] twice daily. Problem List As Of Date 11/29/2023 Noted Resolved Ankylosing spondylitis (HCC) [M45.9] Esophageal [...] Patricia infection [B37.9] 09/22/2016 C. difficile colitis [A (more content not included)... Normal [facility] XR HIP 3V PELV+ AP/LAT LTon 11-29-2023 XR HIP 3V PELV+ AP/LAT LT * * *Final Report* * * DATE OF EXAM: Nov 29 2023 9:03AM FVX 5351 - XR HIP 3V PELV+ AP/LAT LT / PROCEDURE REASON: Closed fracture of hip, left, with delayed healing, subsequent encounter * * * * Physician Interpretation * * * * EXAMINATION / TECHNIQUE: XR HIP 3V PELV+ AP/LAT LT PATIENT/TECHNOLOGIST PROVIDED HISTORY: pt sts f/u to fracture CLINICAL INFORMATION ( PROVIDED BY ORDERING CLINICIAN) : Closed fracture of hip, left, with delayed healing, subsequent encounter COMPARISON: 09/27/2023 RESULT: Status post open reduction internal fixation of the left proximal femur with a short intramedullary andrew and dynamic compression screw. Hardware is intact without adjacent lucency. Left femoral fracture lucency is not identified. Small focus of heterotopic ossification adjacent to the greater trochanter on the left. Minimal left hip degenerative changes. Status post right total hip arthroplasty. No discernible periprosthetic lucency or fracture. Bilateral partial sacroiliac joint ankylosis. Incompletely evaluated posterior spinal fusion hardware extending from the lower lumbar spine into the pelvis. IMPRESSION: Status post open reduction internal fixation of the left proximal femur with intact hardware. 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: [employer] Transcribe Date/Time: Dec 03 2023 3:16P Dictated by : NIK STANFORD MD This examination was interpreted and the report reviewed and electronically signed by: NIK STANFORD MD on Dec 03 2023 3:19PM EST [id number] Normal [facility] CBC W Auto Differential pane l (Bld)on 11-07-2023 Basophils (Bld) [#/Vol] 0.05 10*3/uL Normal <0.11 [facility] Comment on above: Order Comment: Speci men Type: BLOOD SPECIMEN Ordering Facility: [facility] Address: [address] [place] [address] Performed By: #### 5 7021-8 #### [facility] CLIA [id number] [address] [place] [address] Basophils/100 WBC (Bld) 0.8 % Normal [facility] Comment on above: Order Comment: Speci men Type: BLOOD SPECIMEN Ordering Facility: [facility] Address: [address] [place] [address] Performed By: #### 5 7021-8 #### [facility] CLIA [id number] [address] [place] [address] Differential cell count method Nom (Bld) Auto Normal [facility] Comment on above: Order Comment: Speci men Type: BLOOD SPECIMEN Ordering Facility: [facility] Address: [address] [place] [address] Performed By: #### 5 7021-8 #### [facility] CLIA [id number] [address] [place] [address] Eosinophils (Bld) [#/Vol] 0.33 10*3/uL Normal <0.46 [facility] Comment on above: Order Comment: Speci men Type: BLOOD SPECIMEN Ordering Facility: [facility] Address: [address] [place], [place] [address] Performed By: #### 5 7021-8 #### [facility] CLIA [id number] [address] [place] [address] Eosinophils/100 WBC (Bld) 5.2 % Normal [facility] Comment on above: Order Comment: Speci men Type: BLOOD SPECIMEN Ordering Facility: [facility] Address: [address] [place] [address] Performed By: #### 5 7021-8 #### [facility] CLIA [id number] [address] [place] [address] Erythrocyte distribution width (RBC) [Ratio] 16.0 % High 11.5-15.0 [facility] Comment on above: Order Comment: Speci men Type: BLOOD SPECIMEN Ordering Facility: [facility] Address: [address] [place] [address] Performed By: #### 5 7021-8 #### [facility] CLIA [id number] [address] [place] [address] Hematocrit (Bld) [Volume fraction] 39.6 % Normal 39.0-51.0 [facility] Comment on above: Order Comment: Speci men Type: BLOOD SPECIMEN Ordering Facility: [facility] Address: [address] [place], [place] [address] Performed By: #### 5 7021-8 #### [facility] CLIA [id number] [address] [place] [address] Hemoglobin (Bld) [Mass/Vol] 12.4 g/dL Low 13.0-17.0 [facility] Comment on above: Order Comment: Speci men Type: BLOOD SPECIMEN Ordering Facility: [facility] Address: [address] [place], [place] [address] Performed By: #### 5 7021-8 #### [facility] CLIA [id number] [address] [place] [address] Immature granulocytes (Bld) [#/Vol] 0.07 10*3/uL Normal <0.10 [facility] Comment on above: Order Comment: Speci men Type: BLOOD SPECIMEN Ordering Facility: [facility] Address: [address] [place] [address] Performed By: #### 5 7021-8 #### [facility] CLIA [id number] [address] [place] [address] Immature granulocytes/100 WBC (Bld) 1.1 % Normal [facility] Comment on above: Order Comment: Speci men Type: BLOOD SPECIMEN Ordering Facility: [facility] Address: [address] [place] [address] Performed By: #### 5 7021-8 #### [facility] CLIA [id number] [address] [place] [address] Lymphocytes (Bld) [#/Vol] 1.71 10*3/uL Normal 1.00-4.00 [facility] Comment on above: Order Comment: Speci men Type: BLOOD SPECIMEN Ordering Facility: [facility] Address: [address] [place] [address] Performed By: #### 5 7021-8 #### [facility] CLIA [id number] [address] [place] [address] Lymphocytes/100 WBC (Bld) 27.1 % Normal [facility] Comment on above: Order Comment: Speci men Type: BLOOD SPECIMEN Ordering Facility: [facility] Address: [address] [place] [address] Performed By: #### 5 7021-8 #### [facility] CLIA [id number] [address] [place] [address] MCH (RBC) [Entitic mass] 29.5 pg Normal 26.0-34.0 [facility] Comment on above: Order Comment: Speci men Type: BLOOD SPECIMEN Ordering Facility: [facility] Address: [address] [place] [address] Performed By: #### 5 7021-8 #### [facility] CLIA [id number] [address] [place] [address] MCHC (RBC) [Mass/Vol] 31.3 g/dL Normal 30.5-36.0 [facility] Comment on above: Order Comment: Speci men Type: BLOOD SPECIMEN Ordering Facility: [facility] Address: [address] [place] [address] Performed By: #### 5 7021-8 #### [facility] CLIA [id number] [address] [place] [address] MCV (RBC) [Entitic vol] 94.3 fL Normal 80.0-100.0 [facility] Comment on above: Order Comment: Speci men Type: BLOOD SPECIMEN Ordering Facility: [facility] Address: [address] [place] [address] Performed By: #### 5 7021-8 #### [facility] CLIA [id number] [address] [place] [address] [id number] Monocytes (Bld) [#/Vol] 0.91 10*3/uL High <0.87 [facility] Comment on above: Order Comment: Speci men Type: BLOOD SPECIMEN Ordering Facility: [facility] Address: [address] [place] [address] Performed By: #### 5 7021-8 #### [facility] CLIA [id number] [address] [place] [address] 17913 Monocytes/100 WBC (Bld) 14.4 % Normal [facility] Comment on above: Order Comment: Speci men Type: BLOOD SPECIMEN Ordering Facility: [facility] Address: [address] [place] [address] Performed By: #### 5 7021-8 #### [facility] CLIA [id number] [address] [place] [address] 46092 Neutrophils (Bld) [#/Vol] 3.25 10*3/uL Normal 1.45-7.50 [facility] Comment on above: Order Comment: Speci men Type: BLOOD SPECIMEN Ordering Facility: [facility] Address: [address] [place] [address] Performed By: #### 5 7021-8 #### [facility] CLIA [id number] [address] [place] [address] 64792 Neutrophils/100 WBC (Bld) 51.4 % Normal [facility] Comment on above: Order Comment: Speci men Type: BLOOD SPECIMEN Ordering Facility: [facility] Address: [address] [place] [address] Performed By: #### 5 7021-8 #### [facility] CLIA [id number] [address] [place] [address] 04816 Nucleated RBC (Bld) [#/Vol] 10*3/uL Normal <0.01 [facility] Comment on above: Order Comment: Speci men Type: BLOOD SPECIMEN Ordering Facility: [facility] Address: [address] [place] [address] Performed By: #### 5 7021-8 #### [facility] CLIA [id number] [address] [place] [address] 70563 Nucleated RBC/100 WBC (Bld) [Ratio] 0.0 /100 WBC Normal [facility] Comment on above: Order Comment: Speci men Type: BLOOD SPECIMEN Ordering Facility: [facility] Address: [address] [place] [address] Performed By: #### 5 7021-8 #### [facility] CLIA [id number] [address] [place] [address] 30095 Platelet mean volume (Bld) [Entitic vol] 9.4 fL Normal 9.0-12.7 [facility] Comment on above: Order Comment: Speci men Type: BLOOD SPECIMEN Ordering Facility: [facility] Address: [address] [place] [address] Performed By: #### 5 7021-8 #### [facility] CLIA [id number] [address] [place] [address] Platelets (Bld) [#/Vol] 246 10*3/uL Normal 150-400 [facility] Comment on above: Order Comment: Speci men Type: BLOOD SPECIMEN Ordering Facility: [facility] Address: [address] [place] [address] Performed By: #### 5 7021-8 #### [facility] CLIA [id number] [address] [place] [address] 98134 RBC (Bld) [#/Vol] 4.20 10*6/uL Normal 4.20-6.00 [facility] Comment on above: Order Comment: Speci men Type: BLOOD SPECIMEN Ordering Facility: [facility] Address: [address] [place] [address] Performed By: #### 5 7021-8 #### [facility] CLIA [id number] [address] [place] [address] 50141 WBC (Bld) [#/Vol] 6.32 10*3/uL Normal 3.70-11.00 [facility] Comment on above: Order Comment: Speci men Type: BLOOD SPECIMEN Ordering Facility: [facility] Address: [address] [place] [address] Performed By: #### 5 7021-8 #### [facility] CLIA [id number] [address] [place] [address] 34338 Comprehensive metabolic 2000 panelon 11-07-2023 Albumin [Mass/Vol] 3.8 g/dL Low 3.9-4.9 [facility] Comment on above: Order Comment: Speci men Type: BLOOD SPECIMEN Ordering Facility: [facility] Address: [address] [place] [address] Performed By: #### S QBTESTM, 2731-8 #### [facility] CLIA [id number] [address] [place] [address] [place] ALP [Catalytic activity/Vol] 83 U/L Normal 38-113 [facility] Comment on above: Order Comment: Speci men Type: BLOOD SPECIMEN Ordering Facility: [facility] Address: [address] [place] [address] Performed By: #### S QBTESTM, 2730-11 #### [facility] CLIA [id number] [address] [place] [address] [place] ALT [Catalytic activity/Vol] 20 U/L Normal 10-54 [facility] Comment on above: Order Comment: Speci men Type: BLOOD SPECIMEN Ordering Facility: [facility] Address: [address] [place] [address] Performed By: #### S QBTESTM, 2730-11 #### [facility] CLIA [id number] [address] [place] [address] [place] Anion gap [Moles/Vol] 10 mmol/L Normal 8-15 [facility] Comment on above: Order Comment: Speci men Type: BLOOD SPECIMEN Ordering Facility: [facility] Address: [address] [place] [address] Performed By: #### S QBTESTM, 2730-11 #### [facility] CLIA [id number] [address] [place] [address] [place] AST [Catalytic activity/Vol] 19 U/L Normal 14-40 [facility] Comment on above: Order Comment: Speci men Type: BLOOD SPECIMEN Ordering Facility: [facility] Address: [address] [place] [address] Performed By: #### S QBTESTM, 2730-11 #### [facility] CLIA [id number] [address] [place] [address] [place] Bilirubin [Mass/Vol] 0.3 mg/dL Normal 0.2-1.3 [facility] Comment on above: Order Comment: Speci men Type: BLOOD SPECIMEN Ordering Facility: [facility] Address: [address] [place] [address] Performed By: #### S QBTESTM, 2730-11 #### [facility] CLIA [id number] [address] [place] [address] [place] Calcium [Mass/Vol] 9.5 mg/dL Normal 8.5-10.2 [facility] Comment on above: Order Comment: Speci men Type: BLOOD SPECIMEN Ordering Facility: [facility] Address: [address] [place] [address] Performed By: #### S QBTESTM, 2730-11 #### [facility] CLIA [id number] [address] [place] [address] [place] Chloride [Moles/Vol] 111 mmol/L High 98-107 [facility] Comment on above: Order Comment: Speci men Type: BLOOD SPECIMEN Ordering Facility: [facility] Address: [address] [place] [address] Performed By: #### S QBTESTM, 2730-11 #### [facility] CLIA [id number] [address] [place] [address] [place] CO2 [Moles/Vol] 26 mmol/L Normal 22-30 [facility] Comment on above: Order Comment: Speci men Type: BLOOD SPECIMEN Ordering Facility: [facility] Address: [address] [place] [address] Performed By: #### S QBTESTM, 2730-11 #### [facility] CLIA [id number] [address] [place] [address] [place] Creatinine [Mass/Vol] 1.43 mg/dL High 0.73-1.22 [facility] Comment on above: Order Comment: Speci men Type: BLOOD SPECIMEN Ordering Facility: [facility] Address: [address] [place] [address] Performed By: #### S QBTESTM, 2730-11 #### [facility] CLIA [id number] [address] [place] [address] [place] Creatinine and Glomerular filtration rate.predicted panel (S/P/Bld) 55 mL/min/1.73m??? Low >=60 [facility] Comment on above: Order Comment: Jimena wallace Type: BLOOD SPECIMEN Ordering Facility: [facility] Address: [address] [place] [address] Result Comment: Aneta mated Glomerular Filtration Rate [...] accurately reflect actual GFR. Performed By: #### S QBTESTM, 273-8 #### [facility] [place] [id number] [address] [place] [address] [place] Glucose [Mass/Vol] 109 mg/dL High 74-99 [facility] Comment on above: Order Comment: Jimena wallace Type: BLOOD SPECIMEN Ordering Facility: [facility] Address: [address] [place] [address] Result Comment: The [place] Diabetes Association (ADA) provides guidance for cutoff [...] Standards of Medical Care in Diabetes 2016, [place] Diabetes Association. Diabetes Care. 2016.39(Suppl 1). Performed By: #### S QBTESTM, 273-8 #### [facility] CLIA [id number] [address] [place] [address] [place] Potassium [Moles/Vol] 4.5 mmol/L Normal 3.7-5.1 [facility] Comment on above: Order Comment: Speci men Type: BLOOD SPECIMEN Ordering Facility: [facility] Address: [address] [place] [address] Performed By: #### S QBTESTM, 2730-11 #### [facility] CLIA [id number] [address] [place] [address] [place] Protein [Mass/Vol] 6.8 g/dL Normal 6.3-8.0 [facility] Comment on above: Order Comment: Speci men Type: BLOOD SPECIMEN Ordering Facility: [facility] Address: [address] [place] [address] Performed By: #### S QBTESTM, 2730-11 #### [facility] CLIA [id number] [address] [place] [address] [place] Sodium [Moles/Vol] 147 mmol/L High 136-144 [facility] Comment on above: Order Comment: Speci men Type: BLOOD SPECIMEN Ordering Facility: [facility] Address: [address] [place] [address] Performed By: #### S QBTESTM, 2730-11 #### [facility] CLIA [id number] [address] [place] [address] [place] Urea nitrogen [Mass/Vol] 19 mg/dL Normal 9-24 [facility] Comment on above: Order Comment: Speci men Type: BLOOD SPECIMEN Ordering Facility: [facility] Address: [address] [place] [address] Performed By: #### S QBTESTM, 2730-11 #### [facility] CLIA [id number] [address] [place] [address] [place] IMMUNOFIXATION SCREEN, SERUM on 11-07-2023 MPA RESULT No M protein is identified. Normal No M protein is identified. [facility] Comment on above: Order Comment: Speci men Type: BLOOD SPECIMEN Ordering Facility: [facility] Address: [address] [place] [address] Performed By: #### S QBTESTM, 8 #### [facility] CLIA [id number] [address] [place], [place] [id number] [place] STAFF REVIEW (MPA) Reviewed by Kaylyn Herrera MD [facility] Comment on above: Order Comment: Speci men Type: BLOOD SPECIMEN Ordering Facility: [facility] Address: [address] [place] [address] Performed By: #### S QBTESTAleksey, 2730-11 #### [facility] CLIA [id number] [address] [place] [address] [place] IMMUNOGLOBULINS,IGG,IGA,IGMo n 11-07-2023 IgA [Mass/Vol] 147 mg/dL Normal 70-400 [facility] Comment on above: Order Comment: Speci men Type: BLOOD SPECIMEN Ordering Facility: [facility] Address: [address] [place] [address] Performed By: #### 5 7021-8 #### [facility] CLIA [id number] [address] [place] [address] 04452 IgG [Mass/Vol] 793 mg/dL Normal 700-1600 [facility] Comment on above: Order Comment: Speci men Type: BLOOD SPECIMEN Ordering Facility: [facility] Address: [address] [place] [address] Performed By: #### 5 7021-8 #### [facility] CLIA [id number] [address] [place] [address] IgM [Mass/Vol] 26 mg/dL Low 40-230 [facility] Comment on above: Order Comment: Speci men Type: BLOOD SPECIMEN Ordering Facility: [facility] Address: [address] [place], [place] [address] Performed By: #### 5 7021-8 #### [facility] CLIA [id number] [address] [place] [address] 39247 KAPPA/KEANE,FREE,SERon 2023 Immunoglobulin light chains.kappa.free (S) [Mass/Vol] 32.4 mg/L High 3.3-19.4 [facility] Comment on above: Order Comment: Speci men Type: BLOOD SPECIMEN Ordering Facility: [facility] Address: [address] [place] [address] Result Comment: Rare ly, increased serum free light chains levels may not be detected or accurately quantified due to prozone phenomenon or in high viscosity samples using this immunoturbidimetric assay. Correlation with other laboratory results and clinical findings is recommended. The [place] Free Light Chain was performed using the Binding Site Optilite immunoturbidimetric method. Result obtained with different assay methods or kits cannot be used interchangeably. Performed By: #### 5 7021-8 #### [facility] CLIA [id number] [address] [place] [address]3973 Immunoglobulin light chains.kappa/Immunogl obulin light chains.lambda (S) [Mass ratio] 1.85 High 0.26-1.65 [facility] Comment on above: Order Comment: Speci men Type: BLOOD SPECIMEN Ordering Facility: [facility] Address: [address] [place] [address] Performed By: #### 5 7021-8 #### [facility] CLIA [id number] [address] [place] [address] 33824 Immunoglobulin light chains.lambda.free [Mass/Vol] 17.5 mg/L Normal 5.7-26.3 [facility] Comment on above: Order Comment: Speci men Type: BLOOD SPECIMEN Ordering Facility: [facility] Address: [address] [place] [address] Result Comment: Rare ly, increased serum free [...] cannot be used interchangeably. Performed By: #### 5 7021-8 #### [facility] CLIA [id number] [address] [place] [address] PROTEIN ELECTROPHORESIS SERU M (P)on 11-07-2023 Albumin [Mass/Vol] 3.18 g/dL Low 3.43-5.41 [facility] Comment on above: Order Comment: Speci men Type: URINE SPECIMEN Ordering Facility: [facility] Address: [address] [place] [address] Performed By: #### U CALCD, 2956-1 #### [facility] CLIA [id number] [address] [place] [address] [place] #### UCRD #### [facility] CLIA [id number] [address] [place] [address] [place] [facility] CLIA [id number] [address] [place] [address] Alpha 1 globulin Elph [Mass/Vol] 0.40 g/dL Normal 0.18-0.43 [facility] Comment on above: Order Comment: Speci men Type: URINE SPECIMEN Ordering Facility: [facility] Address: [address] [place] [address] Performed By: #### U CALCD, 2956-1 #### [facility] CLIA [id number] [address] [place] [address] [place] #### UCRD #### [facility] CLIA [id number] [address] [place] [address] [place] [facility] CLIA [id number] [address] [place] [address]59 Alpha 2 globulin Elph [Mass/Vol] 0.97 g/dL Normal 0.42-0.98 [facility] Comment on above: Order Comment: Speci men Type: URINE SPECIMEN Ordering Facility: [facility] Address: [address] [place] [id number] Performed By: #### U CALCD, 2956- #### [facility] CLIA [id number] [address] [place] [address] [place] #### UCRD #### [facility] CLIA [id number] [address] [place] [address] [place] [facility] CLIA [id number] [address] [place] [address] 73395 Beta globulin Elph [Mass/Vol] 0.76 g/dL Normal 0.61-1.17 [facility] Comment on above: Order Comment: Speci men Type: URINE SPECIMEN Ordering Facility: [facility] Address: [address] [place] [address] Performed By: #### U CALCD, 2955- #### [facility] CLIA [id number] [address] [place] [address] [place] #### UCRD #### [facility] CLIA [id number] [address] [place] [address] [place] [facility] CLIA [id number] [address] [place] [address]777 Gamma globulin Elph [Mass/Vol] 0.59 g/dL Normal 0.53-1.51 [facility] Comment on above: Order Comment: Speci men Type: URINE SPECIMEN Ordering Facility: [facility] Address: [address] [place] [address] Performed By: #### U CALCD, 2956- #### [facility] CLIA [id number] [address] [place] [address] [place] #### UCRD #### [facility] CLIA [id number] [address] [place] [address] [place] [facility] CLIA [id number] [address] [place] [address] M-PROTEIN LOCATION Normal [facility] Comment on above: Order Comment: Speci men Type: URINE SPECIMEN Ordering Facility: [facility] Address: [address] [place] [address] Result Comment: Not Applicable. Performed By: #### U CALCD, 6- #### [facility] CLIA [id number] [address] [place] [address] [place] #### UCRD #### [facility] CLIA [id number] [address] [place] [address] OF PER [facility] CLIA [id number] [address] [place] [address]690 Protein Fractions [Interp] No definitive M protein is identified on protein electrophoresis. Normal No definitive M protein is identified on protein electrophor esis. [facility] Comment on above: Order Comment: Speci men Type: URINE SPECIMEN Ordering Facility: [facility] Address: [address] [place] [address] Performed By: #### U CALCD, 2955- #### [facility] CLIA [id number] [address] [place] [address] [place] #### UCRD #### [facility] CLIA [id number] [address] [place] [address] [place] [facility] CLIA [id number] [address] [place] [address] 11549 Protein.monoclonal Elph [Mass/Vol] 0.00 g/dL Normal <=0.00 [facility] Comment on above: Order Comment: Speci men Type: URINE SPECIMEN Ordering Facility: [facility] Address: [address] [place] [address] Performed By: #### U CALCD, 2955- #### [facility] CLIA [id number] [address] [place] [address] [place] #### UCRD #### [facility] CLIA [id number] [address] [place] [address] [place] [facility] CLIA [id number] [address] [place], [place] [address] SPE STAFF REVIEW Reviewed by Kaylyn Herrera MD Normal [facility] Comment on above: Order Comment: Speci men Type: URINE SPECIMEN Ordering Facility: [facility] Address: [address] [place] [address] Performed By: #### U CALCD, 2956-1 #### [facility] CLIA [id number] [address] [place] [address] [place] #### UCRD #### [facility] CLIA [id number] [address] [place] [address] [place] [facility] CLIA [id number] [address] [place] [address] Prot SerPl-mCncon 11-07-2023 Protein [Mass/Vol] 5.9 g/dL Low 6.3-8.0 [facility] Comment on above: Order Comment: Speci men Type: BLOOD SPECIMEN Ordering Facility: [facility] Address: [address] [place] [address] Performed By: #### S QBTESTM, 2731-8 #### [facility] CLIA [id number] [address] [place] [address] [place] CNPNimo 10-01-2023 CNPN Telephone (ENDOMN) ELENA FELIX ([id number]) 1960 M Date Time Provider Department 10/01/23 ALYSHA EMANUEL During your visit today, we recorded the following information about you: Brad Zavala 10/01/2023 4:25 PM Signed Called pt to schedule; no answer; scheduled first available with dr. Emanuel or radha Allergies As of Date: 10/01/2023 Noted Allergy Reaction MORPHINE 08/24/2016 5 - Intolerance Comments: Patient thinks that with previous surgery he had a mental psychotic reaction with the combination of Lyrica and Morphine. LISINOPRIL 09/16/2021 16 - Unknown LOSARTAN 05/30/2022 16 - Unknown Date Reviewed: 09/27/2023 Reviewed by: Misty Wallace MD - Fully Assessed Prescriptions as of 10/01/2023 - ARIPiprazole (ABILIFY) 5 mg tablet Take 5 mg by mouth daily at bedtime. - ferrous sulfate 325 mg (65 mg [...] mouth twice daily. Facility-Administered Medications as of 10/01/2023 - perflutren lipid microspheres 1.3 mL in NaCl (PF) 0.9% 10 mL injection (DEFINITY) - sodium chloride 0.9 % (flush) 10 mL (BD POSIFLUSH) Problem List As Of Date 10/01/2023 Noted Resolved Ankylosing spondylitis (HCC) [M45.9] Esophageal [...] Sinus tachycardia [R00.0] 02/05/2017 Encounter Status:Closed by BRAD ZAVALA on 10/01/23 [facility] 09-28-2023 CNPN Telephone (ORFWHP) ISIDROELENA Shola ([id number]) 1960 M Date Time Provider Department 09/28/23 [facility] During your visit today, we recorded the following information about you: Anabelle Londono RN 09/28/2023 12:00 PM Signed ----- Message from Misty Wallace MD sent at 09/27/2023 1:23 PM EDT ----- Hi, can you let patient know that he had an elevated PTH. I have placed a consultation for endocrinology to discuss possible etiologies/treatments for this Allergies As of Date: 09/28/2023 Noted Allergy Reaction MORPHINE 08/24/2016 5 - Intolerance Comments: Patient thinks that with previous surgery he had a mental psychotic reaction with the combination of Lyrica and Morphine. LISINOPRIL 09/16/2021 16 - Unknown LOSARTAN 05/30/2022 16 - Unknown Date Reviewed: 09/27/2023 Reviewed by: Misty Wallace MD - Fully Assessed Reason for Visit: Results [95] Cmt: Spoke with patient regarding his PTH results. Primary Visit Diagnosis:Closed fracture of hip, left, with delayed healing, subsequent encounter [S72.002G] Other Visit Diagnosis:High serum parathyroid hormone (PTH) [R79.89] Order(s):CONSULT TO HIP FRACTURE LIAISON SERVICE (FRAGILITY) [[id number]] Order #: [id number]: 1 FUTURE Prescriptions as of 09/28/2023 - ARIPiprazole (ABILIFY) 5 mg tablet Take 5 mg by mouth daily at bedtime. - ferrous sulfate 325 mg (65 mg [...] mouth twice daily. Facility-Administered Medications as of 09/28/2023 - perflutren lipid microspheres 1.3 mL in NaCl (PF) 0.9% 10 mL injection (DEFINITY) - sodium chloride 0.9 % (flush) 10 mL (BD POSIFLUSH) Problem List As Of Date 09/28/2023 Noted Resolved Ankylosing spondylitis (HCC) [M45.9] Esophageal [...] Sinus tachycardia [R00.0] 02/05/2017 Encounter Status:Closed by ANABELLE LONDONO on 09/28/23 Normal [facility] 25(OH)D3 [facility] 25-hydroxyvitamin D3 [Mass/Vol] 19.7 ng/mL Low 31.0-80.0 [facility] Comment on above: Order Comment: Speci men Type: BLOOD SPECIMEN Ordering Facility: [facility] Address: [address] [place] [address] Result Comment: Clas sification of 25 [place] Vitamin D status: Deficiency/Insufficiency: < or = 30 ng/ml. Sufficiency/Optimal Levels: 31-80 ng/mL Toxicity: > 100 ng/mL. Test performed by chemiluminescent immunoassay. Performed By: #### 1 989-3 #### [facility] CLIA [id number] [address] [place], [place] [address] [address] [place] 25-hydroxyvitamin D3 [Mass/V ol]on 09-27-2023 Interpretation and review of laboratory results Abnormal [facility] The reference range interval was based on an analysis of samples from healthy adults and may not pertain to children from 0-18 years old. [facility] C-REACTIVE PROTEINon 024 CRP [Mass/Vol] 0.4 mg/dL NINF - 0.9 mg/dL [facility] CBC panel Auto (Bld)on 09-26 Erythrocyte distribution width (RBC) [Ratio] 13.9 % 11.5 - 15.0 % [facility] Hematocrit (Bld) [Volume fraction] 44.7 % 39.0 - 51.0 % [facility] Hemoglobin (Bld) [Mass/Vol] 13.9 g/dL 13.0 - 17.0 g/dL [facility] Interpretation and review of laboratory results Normal [facility] MCH (RBC) [Entitic mass] 29.4 pg 26.0 - 34.0 pg [facility] MCHC (RBC) [Mass/Vol] 31.1 g/dL 30.5 - 36.0 g/dL [facility] MCV (RBC) [Entitic vol] 94.7 fL 80.0 - 100.0 fL [facility] Nucleated RBC (Bld) [#/Vol] NINF [facility] Platelet mean volume (Bld) [Entitic vol] 9.8 fL 9.0 - 12.7 fL [facility] Platelets (Bld) [#/Vol] 196 10*3/uL [facility] RBC (Bld) [#/Vol] 4.72 10*6/uL 4.20 - 6.0 0 m/uL [facility] WBC (Bld) [#/Vol] 5.35 10*3/uL [facility] Erythrocyte distribution width (RBC) [Ratio] 13.9 % Normal 11.5-15.0 [facility] Comment on above: Order Comment: Speci men Type: BLOOD SPECIMEN Ordering Facility: [facility] Address: [address] [place] [address] Performed By: #### 5 8410-2 #### [facility] CLIA [id number] [address] [place] [address] [place] Hematocrit (Bld) [Volume fraction] 44.7 % Normal 39.0-51.0 [facility] Comment on above: Order Comment: Speci men Type: BLOOD SPECIMEN Ordering Facility: [facility] Address: [address] [place] [address] Performed By: #### 5 8410-2 #### [facility] CLIA [id number] [address] [place] [address] [place] Hemoglobin (Bld) [Mass/Vol] 13.9 g/dL Normal 13.0-17.0 [facility] Comment on above: Order Comment: Speci men Type: BLOOD SPECIMEN Ordering Facility: [facility] Address: [address] [place] [address] Performed By: #### 5 8410-2 #### [facility] CLIA [id number] [address] [place] [address] [place] MCH (RBC) [Entitic mass] 29.4 pg Normal 26.0-34.0 [facility] Comment on above: Order Comment: Speci men Type: BLOOD SPECIMEN Ordering Facility: [facility] Address: [address] [place] [address] Performed By: #### 5 8410-2 #### [facility] CLIA [id number] [address] [place] [address] [place] MCHC (RBC) [Mass/Vol] 31.1 g/dL Normal 30.5-36.0 [facility] Comment on above: Order Comment: Speci men Type: BLOOD SPECIMEN Ordering Facility: [facility] Address: [address] [place] [address] Performed By: #### 5 8410-2 #### [facility] CLIA [id number] [address] [place] [address] [place] MCV (RBC) [Entitic vol] 94.7 fL Normal 80.0-100.0 [facility] Comment on above: Order Comment: Speci men Type: BLOOD SPECIMEN Ordering Facility: [facility] Address: [address] [place] [address] Performed By: #### 5 8410-2 #### [facility] CLIA [id number] [address] [place] [address] [place] Nucleated RBC (Bld) [#/Vol] 10*3/uL Normal <0.01 [facility] Comment on above: Order Comment: Speci men Type: BLOOD SPECIMEN Ordering Facility: [facility] Address: [address] [place] [address] Performed By: #### 5 8410-2 #### [facility] CLIA [id number] [address] [place] [address] [place] Platelet mean volume (Bld) [Entitic vol] 9.8 fL Normal 9.0-12.7 [facility] Comment on above: Order Comment: Speci men Type: BLOOD SPECIMEN Ordering Facility: [facility] Address: [address] [place] [address] Performed By: #### 5 8410-2 #### [facility] CLIA [id number] [address] [place] [address] [place] Platelets (Bld) [#/Vol] 196 10*3/uL Normal 150-400 [facility] Comment on above: Order Comment: Speci men Type: BLOOD SPECIMEN Ordering Facility: [facility] Address: [address] [place] [address] Performed By: #### 5 8410-2 #### [facility] CLIA [id number] [address] [place] [address] [place] RBC (Bld) [#/Vol] 4.72 10*6/uL Normal 4.20-6.00 [facility] Comment on above: Order Comment: Speci men Type: BLOOD SPECIMEN Ordering Facility: [facility] Address: [address] [place] [address] Performed By: #### 5 8410-2 #### [facility] CLIA [id number] [address] [place] [address] [place] WBC (Bld) [#/Vol] 5.35 10*3/uL Normal 3.70-11.00 [facility] Comment on above: Order Comment: Speci men Type: BLOOD SPECIMEN Ordering Facility: [facility] Address: [address] [place] [address] Performed By: #### 5 8410-2 #### [facility] [id number] [address] [place] [address] [place] CNOVon 09-27-2023 CNOV Office Visit ([facility] ) ELENA FELIX ([id number]) 1960 M Date Time Provider Department 09/27/23 10:45 AM MISTY WALLACE [facility] During your visit today, we recorded the following information about you: Misty Wallace MD 09/27/2023 1:24 PM Signed [facility]THOPAEDIC SURGERY CLINIC NOTE NEW PATIENT VISIT Name: Elena Felix September 27, 2023 CHIEF COMPLAINT: left hip pain Date of injury: January 2023 HISTORY OF PRESENT ILLNESS: Elena Felix is a 63 year old male who sustained a L femoral neck fx after mechanical fall in January 2023 which was surgically repaired with a short cephalomedullary nail. He states that he has continued to have pain in the left hip, and his surgeon has told him that the fracture is not healing. He has been ambulating without assistive devices, but is in a wheelchair for long distances. Denies any wound healing complications or concerns for infection. Does have a diagnosis of ankylosing spondylitis. States that he has no pain at rest in the left hip, but has pain with ambulation and weightbearing Social History: Tobacco Use: 2 packs/day, for 21 years. Types: Cigarettes PATIENT HISTORIES: PAST MEDICAL HISTORY Diagnosis Date Ankylosing spondylitis ([facility]) Dr Hodges Ankylosing spondylitis ([facility]) Arthritis Back pain Cardiomyopathy ([facility]) Nonischemic Congestive Cerebrovascular small vessel disease 08/24/2016 On ASA DVT (deep venous thrombosis) ([facility]) Esophageal reflux Former smoker Kidney stones Major depressive disorder with single episode, in remission ([facility]) 08/24/2016 Morbid obesity with BMI of 40.0-44.9, adult ([facility]) Neuropathy Obstructive sleep apnea syndrome, severe On auto-CPAP - sleep study done on 07/10/16 Pneumonia PAST SURGICAL HISTORY Procedure Laterality Date BACK SURGERY HX 2013 BACK SURGERY HX 2015 HIP SURGERY HX Left 01/2023 MIDLINE INSERTION/CONSULT 09/05/2016 NOSE SURGERY HX sinus surg Dr Rojo PAST SURGICAL HISTORY OF 1986 R hand surgery PAST SURGICAL HISTORY OF 2001 R finger surgery PICC LINE INSERT/CONSULT 09/16/2016 TOTAL HIP JOINT REPLACEMENT Right ARIPiprazole (ABILIFY) 5 mg tabletTake 5 mg by mouth daily at bedtime.Disp: Rfl: oxyCODONE-acetaminophen (PERCOCET) 5-325 mg tabletthree times a day as needed.Disp: Rfl: metoprolol succinate ER (TOPROL XL) 50 mg 24 hr tabletTake 50 mg by mouth once daily.Disp: Rfl: venlafaxine ER (EFFEXOR XR) 75 mg 24 hr capsuleTake 150 mg by mouth once daily.Disp: Rfl: spironolactone (ALDACTONE) 25 mg tabletTake 17.5 [...] 20 mg by mouth once daily.Disp: Rfl: folic acid 1 mg tabletTake 1 mg by mouth once daily.Disp: Rfl: omeprazole (PRILOSEC) 20 mg capsuleTake 20 mg by mouth once daily.Disp: Rfl: DULoxetine (CYMBALTA) 60 mg capsuleTake 60 mg by mouth twice daily. Disp: Rfl: ferrous sulfate 325 mg (65 mg iron) tabletTake 1 tablet by mouth three times a week.Disp: Rfl: (Patient not taking: Reported on 09/27/2023) methotrexate 2.5 mg tabletTake 12.5 mg by mouth one time a week.Disp: Rfl: (Patient not taking: Reported on 09/27/2023) Allergies: ALLERGIES Allergen Reactions Morphine Intolerance Patient thinks that with previous surgery he had a mental psychotic reaction with the combination of Lyrica and Morphine. Lisinopril Unknown Losartan Unknown Allergies, medications, past surgical history and past medical history were reviewed per this encounter. I have confirmed and edited as necessary, the PFSH and ROS obtained by others. PHYSICAL EXAM: General Appearance: Appears healthy, well-nourished Respiratory: Non-labored breathing Left Lower Extremity: Skin: Closed without ulcerations, lacerations, rashes or abrasions Vascular: Foot warm with brisk warm capillary refill and Palpable DP/PT pulse Neuro: Sensation intact in saphenous/sural/deep peroneal/superficial peroneal/tibial nerve distribution and 5/5 EHL/TA/GSC Musculoskeletal: No pain with gentle range of motion of left hip Images: I have personally reviewed the images obtained today and discussed with patient, demonstrating short TFN a with blade without acute complication of hardware, superior portion of fracture line is visible. I also reviewed CT scan that was brought on disc demonstrating incomplete healing of left basicervical femoral neck fracture Assessment and Plan: 63 year old male with left femoral neck fracture with delaye (more content not included)... Normal [facility] CRP SerPl-mCncon 09-27-2023 CRP [Mass/Vol] 0.4 mg/dL Normal <0.9 [facility] Comment on above: Order Comment: Speci men Type: BLOOD SPECIMEN Ordering Facility: [facility] Address: [address] [place] [address] Performed By: #### 3 016-3, 29835-4, 1987-08 #### [facility] CLIA [id number] [address] [place] [address] [place] CRP [Mass/Vol]on 09-27-2023 Interpretation and review of laboratory results Normal [facility] Comprehensive metabolic 2000 panelon 09-27-2023 Albumin [Mass/Vol] 3.6 g/dL Low 3.9 - 4.9 g/dL [facility] ALP [Catalytic activity/Vol] 86 U/L 38 - 113 U/L [facility] ALT [Catalytic activity/Vol] 35 U/L 10 - 54 U/L [facility] Anion gap [Moles/Vol] 13 mmol/L 8 - 15 mmol/L [facility] AST [Catalytic activity/Vol] 28 U/L 14 - 40 U/L [facility] Bilirubin [Mass/Vol] 0.3 mg/dL 0.2 - 1 .3 mg/dL [facility] Calcium [Mass/Vol] 9.2 mg/dL 8.5 - 10. 2 mg/dL [facility] Chloride [Moles/Vol] 104 mmol/L 98 - 10 7 mmol/L [facility] CO2 [Moles/Vol] 25 mmol/L 22 - 30 mmol/L [facility] Creatinine [Mass/Vol] 1.13 mg/dL 0.73 - 1.22 mg/dL [facility] GFR/1.73 sq M.predicted among non-blacks MDRD (S/P/Bld) [Vol rate/Area] 73 mL/min/{1.73_m2} - PINF [facility] Comment on above: Estimated Glomerular Filtration Rate (eGFR) is calculated using the 2020 CKD-EPI creatinine equation. This equation utilizes serum creatinine, sex, and age as parameters. The creatinine assay has traceable calibration to isotope dilution-mass spectrometry. Refer to KDIGO guidelines for clinical interpretation. In patients with unstable renal function, e.g. those with acute kidney injury, the eGFR may not accurately reflect actual GFR. Glucose [Mass/Vol] 103 mg/dL High 74 - 99 mg/dL [facility] Comment on above: The [place] Diabete s Association (ADA) provides guidance for cutoff values [...] Standards of Medical Care in Diabetes 2016, [place] Diabetes Association. Diabetes Care. 2016.39(Suppl 1). Interpretation and review of laboratory results Abnormal [facility] Potassium [Moles/Vol] 4.8 mmol/L 3.7 - 5.1 mmol/L [facility] Protein [Mass/Vol] 6.8 g/dL 6.3 - 8.0 g/dL [facility] Sodium [Moles/Vol] 142 mmol/L 136 - 144 mmol/L [facility] Urea nitrogen [Mass/Vol] 12 mg/dL 9 - 24 mg/dL [facility] Albumin [Mass/Vol] 3.6 g/dL Low 3.9-4.9 [facility] Comment on above: Order Comment: Speci men Type: BLOOD SPECIMEN Ordering Facility: [facility] Address: [address] [place] [address] Performed By: #### 3 016-3, , 1987-08 #### [facility] CLIA [id number] [address] [place] [address] [place] ALP [Catalytic activity/Vol] 86 U/L Normal 38-113 [facility] Comment on above: Order Comment: Speci men Type: BLOOD SPECIMEN Ordering Facility: [facility] Address: [address] [place] [address] Performed By: #### 3 016-3, , 1987-08 #### [facility] CLIA [id number] [address] [place] [address] [place] ALT [Catalytic activity/Vol] 35 U/L Normal 10-54 [facility] Comment on above: Order Comment: Speci men Type: BLOOD SPECIMEN Ordering Facility: [facility] Address: [address] [place] [address] Performed By: #### 3 016-3, , 1987-08 #### [facility] CLIA [id number] [address] [place] [address] [place] Anion gap [Moles/Vol] 13 mmol/L Normal 8-15 [facility] Comment on above: Order Comment: Speci men Type: BLOOD SPECIMEN Ordering Facility: [facility] Address: [address] [place] [address] Performed By: #### 3 016-3, , 1987-08 #### [facility] CLIA [id number] [address] [place] [address] [place] AST [Catalytic activity/Vol] 28 U/L Normal 14-40 [facility] Comment on above: Order Comment: Speci men Type: BLOOD SPECIMEN Ordering Facility: [facility] Address: [address] [place] [address] Performed By: #### 3 016-3, , 1987-08 #### [facility] CLIA [id number] [address] [place] [address] [place] Bilirubin [Mass/Vol] 0.3 mg/dL Normal 0.2-1.3 [facility] Comment on above: Order Comment: Speci men Type: BLOOD SPECIMEN Ordering Facility: [facility] Address: [address] [place] [address] Performed By: #### 3 016-3, , 1987-08 #### [facility] CLIA [id number] [address] [place] [address] [place] Calcium [Mass/Vol] 9.2 mg/dL Normal 8.5-10.2 [facility] Comment on above: Order Comment: Speci men Type: BLOOD SPECIMEN Ordering Facility: [facility] Address: [address] [place] [address] Performed By: #### 3 016-3, , 1987-08 #### [facility] CLIA [id number] [address] [place] [address] [place] Chloride [Moles/Vol] 104 mmol/L Normal 98-107 [facility] Comment on above: Order Comment: Speci men Type: BLOOD SPECIMEN Ordering Facility: [facility] Address: [address] [place] [address] Performed By: #### 3 016-3, , 1987-08 #### [facility] CLIA [id number] [address] [place] [address] [place] CO2 [Moles/Vol] 25 mmol/L Normal 22-30 [facility] Comment on above: Order Comment: Speci men Type: BLOOD SPECIMEN Ordering Facility: [facility] Address: [address] [place] [address] Performed By: #### 3 016-3, , 1987-08 #### [facility] CLIA [id number] [address] [place] [address] [place] Creatinine [Mass/Vol] 1.13 mg/dL Normal 0.73-1.22 [facility] Comment on above: Order Comment: Jimena wallace Type: BLOOD SPECIMEN Ordering Facility: [facility] Address: [address] [place] [address] Performed By: #### 3 016-3, , 1987-08 #### [facility] CLIA [id number] [address] [place] [address] [place] Creatinine and Glomerular filtration rate.predicted panel (S/P/Bld) 73 mL/min/1.73m??? Normal >=60 [facility] Comment on above: Order Comment: Jimena wallace Type: BLOOD SPECIMEN Ordering Facility: [facility] Address: [address] [place] [address] Result Comment: Aneta mated Glomerular Filtration Rate [...] accurately reflect actual GFR. Performed By: #### 3 016-3, , 1987-08 #### [facility] CLIA [id number] [place], [place] [address] [place] Glucose [Mass/Vol] 103 mg/dL High 74-99 [facility] Comment on above: Order Comment: Jimena wallace Type: BLOOD SPECIMEN Ordering Facility: [facility] Address: [address] [place] [address] Result Comment: The [place] Diabetes Association (ADA) provides guidance for cutoff [...] Standards of Medical Care in Diabetes 2016, [place] Diabetes Association. Diabetes Care. 2016.39(Suppl 1). Performed By: #### 3 016-3, , 1987-08 #### [facility] CLIA [id number] [address] [place] [address] [place] Potassium [Moles/Vol] 4.8 mmol/L Normal 3.7-5.1 [facility] Comment on above: Order Comment: Jimena wallace Type: BLOOD SPECIMEN Ordering Facility: [facility] Address: [address] [place] [address] Performed By: #### 3 0163, , 1987-08 #### [facility] CLIA [id number] [address] [place] [address] [place] Protein [Mass/Vol] 6.8 g/dL Normal 6.3-8.0 [facility] Comment on above: Order Comment: Speci men Type: BLOOD SPECIMEN Ordering Facility: [facility] Address: [address] [place] [address] Performed By: #### 3 3, , 1987-08 #### [facility] CLIA [id number] [address] [place] [address] [place] Sodium [Moles/Vol] 142 mmol/L Normal 136-144 [facility] Comment on above: Order Comment: Speci men Type: BLOOD SPECIMEN Ordering Facility: [facility] Address: [address] [place] [address] Performed By: #### 3 016-3, , 1987-08 #### [facility] CLIA [id number] [address] [place] [address] [place] Urea nitrogen [Mass/Vol] 12 mg/dL Normal 9-24 [facility] Comment on above: Order Comment: Speci men Type: BLOOD SPECIMEN Ordering Facility: [facility] Address: [address] [place] [address] Performed By: #### 3 016-3, 15848-1, 1987-08 #### [facility] CLIA [id number] [address] [place] [address] [place] ESR Westergren method (Bld) [Velocity]on 09-27-2023 ESR (Bld) [Velocity] 26 mm/h High [facility] Interpretation and review of laboratory results Abnormal [facility] ESR (Bld) [Velocity] 26 mm/h High 0-15 [facility] Comment on above: Order Comment: Speci men Type: BLOOD SPECIMEN Ordering Facility: [facility] Address: [address] [place] [address] Performed By: #### 4 537-7 #### [facility] CLIA [id number] [address] [place] [id number] [place] [address] [place] Erythrocyte distribution wid th Auto (RBC) [Ratio]on 09-27-2023 Erythrocyte distribution width (RBC) [Ratio] 13.9 % 11.5-15.0 [facility] Hematocrit Auto (Bld) [Volum e fraction]on 09-27-2023 Hematocrit (Bld) [Volume fraction] 44.7 % 39.0-51.0 [facility] Hemoglobin [Mass/volume] in Bloodon 09-27-2023 Hemoglobin (Bld) [Mass/Vol] 13.9 g/dL 13.0-17.0 [facility] Laboratory - Chemistry and C hemistry - challengeon 09-27-2023 Albumin [Mass/Vol] 3.6 g/dL 3.9-4.9 [facility] ALP [Catalytic activity/Vol] 86 U/L 38-113 [facility] ALT [Catalytic activity/Vol] 35 U/L 10-54 [facility] AST [Catalytic activity/Vol] 28 U/L 14-40 [facility] Bilirubin [Mass/Vol] 0.3 mg/dL 0.2-1.3 [facility] Calcium [Mass/Vol] 9.2 mg/dL 8.5-10.2 [facility] Chloride [Moles/Vol] 104 mmol/L 98-107 [facility] CO2 [Moles/Vol] 25 mmol/L 22-30 [facility] Creatinine [Mass/Vol] 1.13 mg/dL 0.73-1.22 [facility] Glucose [Mass/Vol] 103 mg/dL 74-99 [facility] Comment on above: The [place] Diabete s Association (ADA) provides guidance for cutoff values for fasting glucose and random glucose. The ADA defines fasting as no caloric intake for at least 8 hours. Fasting plasma glucose results between 100 to 125 mg/dL indicate increased risk for diabetes (prediabetes).Fasting plasma glucose results greater than or equal to 126 mg/dL meet the criteria for diagnosis of diabetes. In the absence of unequivocal hyperglycemia, results should be confirmed by repeat testing. In a patient with classic symptoms of hyperglycemia or hyperglycemic crisis, random plasma glucose results greater than or equal to 200 mg/dL meet the criteria for diagnosis of diabetes.Reference: Standards of Medical Care in Diabetes 2016, [place] Diabetes Association. Diabetes Care. 2016.39(Suppl 1). Potassium [Moles/Vol] 4.8 mmol/L 3.7-5.1 [facility] Sodium [Moles/Vol] 142 mmol/L 136-144 [facility] TSH Qn 0.957 m[IU]/L 0.270-4.200 [facility] Urea nitrogen [Mass/Vol] 12 mg/dL 9-24 [facility] Laboratory - Hematology and Cell countson 09-27-2023 ESR (Bld) [Velocity] 26 mm/h 0-15 [facility] Leukocytes [#/volume] correc christen for nucleated erythrocytes in Blood by Automated counon 09-27-2023 WBC corrected for nucl RBC Auto (Bld) [#/Vol] 5.35 k/uL 3.70-11.00 [facility] MCH Auto (RBC) [Entitic mass ]on 09-27-2023 MCH (RBC) [Entitic mass] 29.4 pg 26.0-34.0 [facility] MCHC Auto (RBC) [Mass/Vol]on 09-27-2023 MCHC (RBC) [Mass/Vol] 31.1 g/dL 30.5-36.0 [facility] MCV Auto (RBC) [Entitic vol] on 09-27-2023 MCV (RBC) [Entitic vol] 94.7 fL 80.0-100.0 [facility] No Panel Informationon 09-26 [facility] C-Reactive Protein, Quantitative 0.4 mg/dL <0.9 [facility] Estimated GFR (CKD-EPI) 73 mL/min/1.73m??? >=60 [facility] Comment on above: Estimated Glomerular Filtration Rate (eGFR) is calculated using the 2020 CKD-EPI creatinine equation. This equation utilizes serum creatinine, sex, and age as parameters. The creatinine assay has traceable calibration to isotope dilution-mass spectrometry. Refer to KDIGO guidelines for clinical interpretation. In patients with unstable renal function, e.g. those with acute kidney injury, the eGFR may not accurately reflect actual GFR. Parathyroid Hormone (Intact) 135 pg/mL 15-65 [facility] Nucleated RBC Auto (Bld) [#/ Vol]on 09-27-2023 Nucleated RBC (Bld) [#/Vol] 10*3/uL <0.01 [facility] [facility] PTH INTACTon 09-27-2023 Parathyrin.intact [Mass/Vol] 135 pg/mL High 15 - 65 pg/mL [facility] PTH-Intact SerPl-mCncon Parathyrin.intact [Mass/Vol] 135 pg/mL High 15-65 [facility] Comment on above: Order Comment: Speci men Type: BLOOD SPECIMENOrdering Facility: [facility] Address: [address] [place] [address] Performed By: #### 2 731-8 ####[facility] [id number] [place] [address] [place] Parathyrin.intact [Mass/Vol] on 09-27-2023 Interpretation and review of laboratory results Abnormal [facility] Platelet mean volume Auto (B ld) [Entitic vol]on 09-27-2023 Platelet mean volume (Bld) [Entitic vol] 9.8 fL 9.0-12.7 [facility] Platelets Auto (Bld) [#/Vol] on 09-27-2023 Platelets (Bld) [#/Vol] 196 10*3/uL 150-400 [facility] Protein [Mass/volume] in Ser um or Plasmaon 09-27-2023 Protein [Mass/Vol] 6.8 g/dL 6.3-8.0 [facility] RBC Auto (Bld) [#/Vol]on RBC (Bld) [#/Vol] 4.72 10*6/uL 4.20-6.00 [facility] Serum or plasma anion gap de terminationon 09-27-2023 Anion gap [Moles/Vol] 13 mmol/L 8-15 [facility] Serum or plasma calcidiol me asurement (mass/volume)on 09-27-2023 25-hydroxyvitamin D3 [Mass/Vol] 19.7 ng/mL 31.0-80.0 [facility] Comment on above: Classification of 25 [place] Vitamin D status: Deficiency/Insufficiency: < or = 30 ng/ml.Sufficiency/Optimal Levels: 31-80 ng/mLToxicity: > 100 ng/mL. Test performed by chemiluminescent immunoassay. THYROID STIMULATING HORMONEo n 09-27-2023 TSH Qn 0.957 m[IU]/L [facility] TSH Qnon 09-27-2023 Interpretation and review of laboratory results Normal [facility] TSH SerPl-aCncon 09-27-2023 TSH Qn 0.957 m[IU]/L Normal 0.270-4.200 [facility] Comment on above: Order Comment: Speci men Type: BLOOD SPECIMEN [facility] Address: [address] [place] [address] Performed By: #### 3 016-3, 98092-4, 1987-08 #### [facility] CLIA [id number] [place] [address] [place] VITAMIN D 25 HYDROXYon 09-26 25-hydroxyvitamin D3 [Mass/Vol] 19.7 ng/mL Low 31.0 - 80.0 ng/mL [facility] Comment on above: Classification of 25 [place] Vitamin D status: Deficiency/Insufficiency: < or = 30 ng/ml. Sufficiency/Optimal Levels: 31-80 ng/mL Toxicity: > 100 ng/mL. Test performed by chemiluminescent immunoassay. XR HIP 3V PELV+ AP/LAT LTon 09-27-2023 XR HIP 3V PELV+ AP/LAT LT * * *Final Report* * * DATE OF EXAM: Sep 27 2023 9:42AM [id number] - XR HIP 3V PELV+ AP/LAT LT / PROCEDURE REASON: Pain * * * * Physician Interpretation * * * * TECHNIQUE: Portable AP pelvis and 2 coned-down views of the left hip CLINICAL DATA: Left hip fracture.. COMPARISON: Outside images of 5 06/11/2023.. RESULT: There are postsurgical changes from ORIF of a left hip fracture with an intramedullary andrew and screws. The hardware appears intact. The fracture line is not well visualized. There are postsurgical changes from a partially imaged right hip arthroplasty and a lumbar fusion. IMPRESSION: Postsurgical changes left hip. Apparently the patient had a previous abnormal CT scan. This is not available at this time. 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: [facility] Transcribe Date/Time: Oct 03 2023 3:33P Dictated by : TRENTON COX MD This examination was interpreted and the report reviewed and electronically signed by: TRENTON COX MD on Oct 03 2023 3:36PM EST [id number] Normal [facility] Alanine aminotransferase [En zymatic activity/volume] in Serum or PlasmaOrdered By: Safia Enrique on 2023 ALT [Catalytic activity/Vol] 18 U/L 7-52 [facility] Albumin [Mass/volume] in Ser um or Plasma by Bromocresol green (BCG) dye binding methoOrdered By: Safia Enrique on 2023 Albumin BCG dye [Mass/Vol] 3.8 g/dL 3.5-5.7 [facility] Alkaline phosphatase [Enzyma tic activity/volume] in Serum or PlasmaOrdered By: Safia Enrique on 2023 ALP [Catalytic activity/Vol] 72 U/L 34-104 [facility] Aspartate aminotransferase [ Enzymatic activity/volume] in Serum or PlasmaOrdered By: Safia Enrique on 2023 AST [Catalytic activity/Vol] 18 U/L 13-39 [facility] Basophils Auto (Bld) [#/Vol] Ordered By: Safia Enrique on 2023 Basophils (Bld) [#/Vol] 0.1 10*3/uL 0.0-0.2 [facility] Basophils/100 WBC Auto (Bld) Ordered By: Safia Enrique on 2023 Basophils/100 WBC (Bld) 0.8 % . [facility] Bilirubin.total [Mass/volume ] in Serum or PlasmaOrdered By: Safia Enrique on 2023 Bilirubin [Mass/Vol] 0.4 mg/dL 0.3-1.0 [facility] Calcium [Mass/volume] in Ser um or PlasmaOrdered By: Safia Enrique on 2023 Calcium [Mass/Vol] 9.1 mg/dL 8.6-10.3 [facility] Carbon dioxide, total [Moles /volume] in Serum or PlasmaOrdered By: Safia Enrique on 2023 CO2 [Moles/Vol] 28.2 mmol/L 21.0-31.0 [facility] Chloride [Moles/volume] in S eliza or PlasmaOrdered By: Safia Enrique on 2023 Chloride [Moles/Vol] 106 mmol/L 98-107 [facility] Complete Blood Count Auto Di ffon 2023 Basophils (Bld) [#/Vol] 0.1 10*3/uL Normal 0.0-0.2 [facility] Comment on above: Performed By: #### C BC, ESR, CMP #### [facility] [address] [place] [address] [place] Basophils/100 WBC (Bld) 0.8 % Normal . [facility] Comment on above: Performed By: #### C BC, ESR, CMP #### [facility] [address] [place] [address] [place] Eosinophils (Bld) [#/Vol] 0.5 10*3/uL High 0.0-0.45 [facility] Comment on above: Performed By: #### C BC, ESR, CMP #### [place] [address] [place] Eosinophils/100 WBC (Bld) 6.8 % Normal . [facility] Comment on above: Performed By: #### C BC, ESR, CMP #### [address] Erythrocyte distribution width (RBC) [Ratio] 14.3 % Normal 12.0-14.8 [facility] Comment on above: Performed By: #### C BC, ESR, CMP #### [address] Hematocrit (Bld) [Volume fraction] 42.0 % Normal 38.8-50.0 [facility] Comment on above: Performed By: #### C BC, ESR, CMP #### [address] Hemoglobin (Bld) [Mass/Vol] 13.8 g/dL Normal 13.0-17.0 [facility] Comment on above: Performed By: #### C BC, ESR, CMP #### [address] Lymphocytes (Bld) [#/Vol] 1.5 10*3/uL Normal 1.00-4.8 [facility] Comment on above: Performed By: #### C BC, ESR, CMP #### [place] [address] [place] Lymphocytes/100 WBC (Bld) 21.9 % Normal . [facility] Comment on above: Performed By: #### C BC, ESR, CMP #### [address] MCH (RBC) [Entitic mass] 30.5 pg Normal 27.5-35.2 [facility] Comment on above: Performed By: #### C BC, ESR, CMP #### [address] MCV (RBC) [Entitic vol] 92.7 fL Normal 83.5-101 [facility] Comment on above: Performed By: #### C BC, ESR, CMP #### [address] Mean Corpuscular HGB Conc 32.9 g/dL Normal 32.5-35.6 [facility] Comment on above: Performed By: #### C BC, ESR, CMP #### [address] Monocytes (Bld) [#/Vol] 0.9 10*3/uL High 0.0-0.8 [facility] Comment on above: Performed By: #### C BC, ESR, CMP #### [address] Monocytes/100 WBC (Bld) 13.3 % Normal . [facility] Comment on above: Performed By: #### C BC, ESR, CMP #### [address] Neutrophils (Bld) [#/Vol] 3.8 10*3/uL Normal 1.8-7.7 [facility] Comment on above: Performed By: #### C BC, ESR, CMP #### [address] Neutrophils/100 WBC (Bld) 57.2 % Normal . [facility] Comment on above: Performed By: #### C BC, ESR, CMP #### [address] NRBC% 0.1 /100{WBC} Normal 0-0.5 [facility] Comment on above: Performed By: #### C BC, ESR, CMP #### [address] Platelet mean volume (Bld) [Entitic vol] 8.8 fL Normal 6.6-10.1 [facility] Comment on above: Performed By: #### C BC, ESR, CMP #### [address] Platelets (Bld) [#/Vol] 224 10*3/uL Normal 150-450 [facility] Comment on above: Performed By: #### C BC, ESR, CMP #### [address] RBC (Bld) [#/Vol] 4.53 10*6/uL Normal 3.90-5.60 [facility] Comment on above: Performed By: #### C BC, ESR, CMP #### [address] WBC (Bld) [#/Vol] 6.7 10*3/uL Normal 4.1-10.5 [facility] Comment on above: Performed By: #### C BC, ESR, CMP #### [address] Comprehensive Metabolic Pane [facility] 2023 Albumin [Mass/Vol] 3.8 g/dL Normal 3.5-5.7 [facility] Comment on above: Performed By: #### C BC, ESR, CMP #### [address] Albumin/Globulin [Mass ratio] 1.4 {ratio} Normal [facility] Comment on above: Performed By: #### C BC, ESR, CMP #### [address] ALP [Catalytic activity/Vol] 72 U/L Normal 34-104 [facility] Comment on above: Result Comment: PERF ORMED BY: [place] [address] PATHOLOGIST TUFTING MACHINE OPERATOR SINGLE NEEDLE JENNIFER CALDERON M.D. Performed By: #### C BC, ESR, CMP #### [address] ALT [Catalytic activity/Vol] 18 U/L Normal 7-52 [facility] Comment on above: Performed By: #### C BC, ESR, CMP #### [address] Anion gap [Moles/Vol] 12.6 mmol/L Normal 6.0-15.0 [facility] Comment on above: Performed By: #### C BC, ESR, CMP #### [facility] [address] AST [Catalytic activity/Vol] 18 U/L Normal 13-39 [facility] Comment on above: Performed By: #### C BC, ESR, CMP #### [facility] [address] Bilirubin [Mass/Vol] 0.4 mg/dL Normal 0.3-1.0 [facility] Comment on above: Performed By: #### C BC, ESR, CMP #### [facility] [address] Calcium [Mass/Vol] 9.1 mg/dL Normal 8.6-10.3 [facility] Comment on above: Performed By: #### C BC, ESR, CMP #### [facility] [address] Chloride [Moles/Vol] 106 mmol/L Normal 98-107 [facility] Comment on above: Performed By: #### C BC, ESR, CMP #### [facility] [address] [place] [address] [place] CO2 [Moles/Vol] 28.2 mmol/L Normal 21.0-31.0 [facility] Comment on above: Performed By: #### C BC, ESR, CMP #### [facility] [address] [place] [address] [place] Creatinine [Mass/Vol] 1.37 mg/dL High 0.70-1.30 [facility] Comment on above: Performed By: #### C BC, ESR, CMP #### [facility] [address] [place] [address] [place] GFR/1.73 sq M.predicted MDRD (S/P/Bld) [Vol rate/Area] 58.325 mL/min/{1.73_m2} Normal [facility] Comment on above: Performed By: #### C BC, ESR, CMP #### [facility] [address] [place] [address] [place] Globulin (S) [Mass/Vol] 2.8 g/dL Normal [facility] Comment on above: Performed By: #### C BC, ESR, CMP #### [facility] [address] [place] [address] [place] Glucose [Mass/Vol] 112 mg/dL High 70-100 [facility] Comment on above: Result Comment: [place] Glucose Reference Range is dependent on time and content of last meal. Glucose of more than 200 mg/dL in a nonstressed, ambulatory subject supports the diagnosis of Diabetes Mellitus. ADA recommended reference range Performed By: #### C BC, ESR, CMP #### [facility] [address] Potassium [Moles/Vol] 4.8 mmol/L Normal 3.5-5.1 [facility] Comment on above: Performed By: #### C BC, ESR, CMP #### [facility] [address] Protein [Mass/Vol] 6.6 g/dL Normal 6.4-8.9 [facility] Comment on above: Performed By: #### C BC, ESR, CMP #### [facility] [address] [place] [address] [place] Sodium [Moles/Vol] 142 mmol/L Normal 136-145 [facility] Comment on above: Performed By: #### C BC, ESR, CMP #### [facility] [address] [place] [address] [place] Urea nitrogen [Mass/Vol] 20 mg/dL Normal 7-25 [facility] Comment on above: Performed By: #### C BC, ESR, CMP #### [facility] [address] [place] [id number] [place] Creatinine [Mass/volume] in Serum or PlasmaOrdered By: Safia Enrique on 2023 Creatinine [Mass/Vol] 1.37 mg/dL 0.70-1.30 [facility] Eosinophils Auto (Bld) [#/Vo l]Ordered By: Safia Enrique on 2023 Eosinophils (Bld) [#/Vol] 0.5 10*3/uL 0.0-0.45 [facility] Eosinophils/100 WBC Auto (Bl d)Ordered By: Safia Enrique on 2023 Eosinophils/100 WBC (Bld) 6.8 % . [facility] Erythrocyte Sedimentation Ra alexia 2023 ESR (Bld) [Velocity] 39 mm/h High 0-19 [facility] Comment on above: Result Comment: PERF ORMED BY: [facility] [address] [place] [address] PATHOLOGIST TUFTING MACHINE OPERATOR SINGLE NEEDLE JENNIFER CALDERON M.D. Performed By: #### C BC, ESR, CMP #### [facility] [address] Erythrocyte distribution wid th Auto (RBC) [Ratio]Ordered By: Safia Enrique on 2023 Erythrocyte distribution width (RBC) [Ratio] 14.3 % 12.0-14.8 [facility] Erythrocyte sedimentation ra te by Photometric methodOrdered By: Safia Enrique on 2023 ESR Photometric method (Bld) [Velocity] 39 mm/hr 0-19 [facility] Globulin Calc (S) [Mass/Vol] Ordered By: Safia Enrique on 2023 Globulin (S) [Mass/Vol] 2.8 g/dL [facility] Glucose [Mass/volume] in Ser um or PlasmaOrdered By: Safia Enrique on 2023 Glucose [Mass/Vol] 112 mg/dL 70-100 [facility] Comment on above: ADA recommended refe rence rangeRandom Glucose Reference Range is dependent on time and content of last meal. Glucose of more than 200 mg/dL in a nonstressed, ambulatory subject supports the diagnosis of Diabetes Mellitus. Hematocrit Auto (Bld) [Volum e fraction]Ordered By: Safia Enrique on 2023 Hematocrit (Bld) [Volume fraction] 42.0 % 38.8-50.0 [facility] Hemoglobin [Mass/volume] in BloodOrdered By: Safia Enrique on 2023 Hemoglobin (Bld) [Mass/Vol] 13.8 g/dL 13.0-17.0 [facility] Leukocytes [#/volume] correc christen for nucleated erythrocytes in Blood by Automated counOrdered By: Safia Enrique on 2023 WBC corrected for nucl RBC Auto (Bld) [#/Vol] 6.7 10*3/uL 4.1-10.5 [facility] Lymphocytes Auto (Bld) [#/Vo l]Ordered By: Safia Enrique on 2023 Lymphocytes (Bld) [#/Vol] 1.5 10*3/uL 1.00-4.8 [facility] Lymphocytes/100 WBC Auto (Bl d)Ordered By: Safia Enrique on 2023 Lymphocytes/100 WBC (Bld) 21.9 % . [facility] MCH Auto (RBC) [Entitic mass ]Ordered By: Safia Enrique on 2023 MCH (RBC) [Entitic mass] 30.5 pg 27.5-35.2 [facility] MCHC Auto (RBC) [Mass/Vol]Or dered By: Safia Enrique on 2023 MCHC (RBC) [Mass/Vol] 32.9 g/dL 32.5-35.6 [facility] MCV Auto (RBC) [Entitic vol] Ordered By: Safia Enrique on 2023 MCV (RBC) [Entitic vol] 92.7 fL 83.5-101 [facility] Monocytes Auto (Bld) [#/Vol] Ordered By: Safia Enrique on 2023 Monocytes (Bld) [#/Vol] 0.9 10*3/uL 0.0-0.8 [facility] Monocytes/100 WBC Auto (Bld) Ordered By: Safia Enrique on 2023 Monocytes/100 WBC (Bld) 13.3 % . [facility] Neutrophils Auto (Bld) [#/Vo l]Ordered By: Safia Enrique on 2023 Neutrophils (Bld) [#/Vol] 3.8 10*3/uL 1.8-7.7 [facility] Neutrophils/100 WBC Auto (Bl d)Ordered By: Safia Enrique on 2023 Neutrophils/100 WBC (Bld) 57.2 % . [facility] No Panel InformationOrdered By: Safia Enrique on 2023 Estimated GFR (CKD-EPI) 58.325 mL/Min [facility] Creatinine Clearance (Chem N/A [facility] Nucleated erythrocytes [Pres ence] in Blood by Automated countOrdered By: Safia Enrique on 2023 Nucleated RBC Auto Ql (Bld) 0.1 /100{WBC} 0-0.5 [facility] Platelet mean volume Auto (B ld) [Entitic vol]Ordered By: Safia Enrique on 2023 Platelet mean volume (Bld) [Entitic vol] 8.8 fL 6.6-10.1 [facility] Platelets Auto (Bld) [#/Vol] Ordered By: Safia Enrique on 2023 Platelets (Bld) [#/Vol] 224 10*3/uL 150-450 [facility] Potassium [Moles/volume] in Serum or PlasmaOrdered By: Safia Enrique on 2023 Potassium [Moles/Vol] 4.8 mmol/L 3.5-5.1 [facility] Protein [Mass/volume] in Ser um or PlasmaOrdered By: Safia Enrique on 2023 Protein [Mass/Vol] 6.6 g/dL 6.4-8.9 [facility] RBC Auto (Bld) [#/Vol]Ordere d By: Safia Enrique on 2023 RBC (Bld) [#/Vol] 4.53 10*6/uL 3.90-5.60 [facility] Serum or plasma albumin/glob ulin mass ratioOrdered By: Safia Enrique on 2023 Albumin/Globulin [Mass ratio] 1.4 {ratio} [facility] Serum or plasma anion gap de terminationOrdered By: Safia Enrique on 2023 Anion gap [Moles/Vol] 12.6 mmol/L 6.0-15.0 [facility] Sodium [Moles/volume] in Ser um or PlasmaOrdered By: Safia Enrique on 2023 Sodium [Moles/Vol] 142 mmol/L 136-145 [facility] Urea nitrogen [Mass/volume] in Serum or PlasmaOrdered By: Safia Enrique on 2023 Urea nitrogen [Mass/Vol] 20 mg/dL 7 [facility] WBC Auto (Bld) [#/Vol]Ordere d By: Safia Enrique on 2023 WBC (Bld) [#/Vol] 6.7 10*3/uL 4.1-10.5 [facility] Lab Reportson 08-14-2023 Lab Reports [id number] Normal [facility] No Panel Informationon 08-01 Prostate Specific Antigen Total 1.08 ng/mL <=4.00 [facility] Patient Educationon 07-16-19 Patient Education Urology Erectile Dysfunction Erectile dysfunction (ED) is the inability to get or keep an erection in order to have sexual intercourse. ED is considered a symptom of an underlying disorder and is not considered a disease. ED may include: ? Inability to get an erection. ? Lack of enough hardness of the erection to allow penetration. ? Loss of erection before sex is finished. What are the causes? This condition may be caused by: ? Physical causes, such as: ? Artery problems. This may include heart disease, high blood pressure, atherosclerosis, and diabetes. ? Hormonal problems, such as low testosterone. ? Obesity. ? Nerve problems. This may include back or pelvic injuries, multiple sclerosis, Parkinson's disease, spinal cord injury, and stroke. ? Certain medicines, such as: ? Pain relievers. ? Antidepressants. ? Blood pressure medicines and water pills (diuretics). ? Cancer medicines. ? Antihistamines. ? Muscle relaxants. ? Lifestyle factors, such as: ? Use of drugs such as marijuana, cocaine, or opioids. ? Excessive use of alcohol. ? Smoking. ? Lack of physical activity or exercise. ? Psychological causes, such as: ? Anxiety or stress. ? Sadness or depression. ? Exhaustion. ? Fear about sexual performance. ? Guilt. What are the signs or symptoms? Symptoms of this condition include: ? Inability to get an erection. ? Lack of enough hardness of the erection to allow penetration. ? Loss of the erection before sex is finished. ? Sometimes having normal erections, but with frequent unsatisfactory episodes. ? Low sexual satisfaction in either partner due to erection problems. ? A curved penis occurring with erection. The curve may cause pain, or the penis may be too curved to allow for intercourse. ? Never having nighttime or morning erections. How is this diagnosed? This condition is often diagnosed by: ? Performing a physical exam to find other diseases or specific problems with the penis. ? Asking you detailed questions about the problem. ? Doing tests, such as: ? Blood tests to check for diabetes mellitus or high cholesterol, or to measure hormone levels. ? Other tests to check for underlying health conditions. ? An ultrasound exam to check for scarring. ? A test to check blood flow to the penis. ? Doing a sleep study at home to measure nighttime erections. How is this treated? This condition may be treated by: ? Medicines, such as: ? Medicine taken by mouth to help you achieve an erection (oral medicine). ? Hormone replacement therapy to replace low testosterone levels. ? Medicine that is injected into the penis. Your health care provider may instruct you how to give yourself these injections at home. ? Medicine that is delivered with a short applicator tube. The tube is inserted into the opening at the tip of the penis, which is the opening of the urethra. A tiny pellet of medicine is put in the urethra. The pellet dissolves and enhances erectile function. This is also called MUSE (medicated urethral system for erections) therapy. ? Vacuum pump. This is a pump with a ring on it. The pump and ring are placed on the penis and used to create pressure that helps the penis become erect. ? Penile implant surgery. In this procedure, you may receive: ? An inflatable implant. This consists of cylinders, a pump, and a reservoir. The cylinders can be inflated with a fluid that helps to create an erection, and they can be deflated after intercourse. ? A semi-rigid implant. This consists of two silicone rubber rods. The rods provide some rigidity. They are also flexible, so the penis can both curve downward in its normal position and become straight for sexual intercourse. ? Blood vessel surgery to improve blood flow to the penis. During this procedure, a blood vessel from a different part of the body is placed into the penis to allow blood to flow around (bypass) damaged or blocked blood vessels. ? Lifestyle changes, such as exercising more, losing weight, and quitting smoking. Follow these instructions at home: Medicines ? Take [id number] and prescription medicines only as told by your health care provider. Do not increase the dosage without first discussing it with your health care provider. ? If you are using self-injections, do injections as directed by your health care provider. Make sure you avoid any veins that are on the surface of the penis. After giving an injection, apply pressure to the injection site for 5 minutes. ? Talk to your health care provider about how to prevent headaches while taking ED medicines. These medicines may cause a sudden headache due to the increase in blood flow in your body. General instructions ? Exercise regularly, as directed by your health care provider. Work with your health care provider to lose weight, if needed. ? Do not use any products that contain nicotine or tobacco. These products include cig (more content not included)... Normal [facility] Urology Office/Clinic Noteon 07-16-2023 Urology Office/Clinic Note Chief Complaint 1 yr f/u w/ no labs HPI Staff 1 year f/u Dx: BPH with urinary obstruction, chronic prostatitis and epididymal cyst. Tamsulosin 0.4mg BID Dysuria: denies Incomplete bladder emptying: denies Hematuria: denies Frequency: denies Urgency: yes Nocturia: 2x a night Stream: strong and steady Leaking: denies Post void dripping: denies Wearing pads/ Depends: denies Urge incontinence: denies Stress incontinence: denies Incontinence without Sensory Awareness: denies Abdominal pain: denies Flank pain: denies Sexual complaints: _ History of Present Illness Tests reviewed: reviewed UA. I have reviewed the previous health record information and history for this patient from Dr. Bell. I have reviewed and verified the staff HPI to be accurate for this encounter. There have been no associated fever, chills, flank pain, or blood in the urine. Denies any urinary infections since last encounter. Review of Systems PHQ Score Initial Depression Screen Score: 0 SCORE ROS - Provider Constitutional: denies weight loss, denies hot flashes. Eyes: denies eye problems. Gastrointestinal: denies nausea, denies vomiting. Cardiovascular: denies chest pain or angina. Integumentary: no dryness Musculoskeletal: denies musculoskeletal symptoms. ENMT: denies otolaryngeal symptoms. Respiratory: no shortness of breath. Heme/Lymph: denies easy bleeding tendency, denies easy bruising tendency. Psychiatric: no confusion, no anxiety. Genitourinary: See HPI. Physical Exam Vitals & Measurements T: 36.9 ?C(Temporal Artery) HR: 95(Peripheral) RR: 16 BP: 109/78 HT: 74 in HT: 188 cm WT: 134 kg WT: 294.8 lb BMI: 37.91 General Appearance: alert, no distress, well nourished, well developed male. Genitourinary: PE: 1 cm inclusion cyst in foreskin on ventral surface, near frenulum. Assessment/Plan 1. BPH with urinary obstruction (N40.1: Benign prostatic hyperplasia with lower urinary tract symptoms) PSA: 05/30/21 - 2.60 PCP was managing PSA, however no current levels. Will provide pt with PSA order to be done now. Taking Flomax 0.4mg bid. Feels urination has improved since last visit. Pt shares that every time he voids has the urge to have a BM. Hx of multiple back surgeries. Could be dietary. -Follow up in 1 year 2. Chronic prostatitis (N41.1: Chronic prostatitis) Has been tx'd with Levaquin 500mg in the past. UA today neg. Asx currently. 3. Epididymal cyst (N50.3: Cyst of epididymis) Scrotal US 01/02/2020 shows 8 mm right epididymal cyst. Asx. 4. Erectile dysfunction (N52.9: Male erectile dysfunction, unspecified) Reports he has difficulty maintaining an erection. High libido. States his ejaculate is clear and low volume. Explained to pt that is due to Flomax. Not on any Nitroglycerin products. Is taking a few different BP medications. Pt understands that Nitro cannot be taken with oral ED meds. Discussed options for ED, including oral medications, erection pumps, MUSE intraurethral pellet, intracorporal injection therapy, and surgical options. -Start Sildenafil 100mg prn, break in half -Monitor for SEs 5. Inclusion cyst (L72.0: Epidermal cyst) Reports he has a mobile bump on his foreskin. Does produce pain. Denies drainage. PE: 1 cm inclusion cyst in foreskin on ventral surface, near frenulum. Explained to pt that the cyst will never go away, surgical removal would be the only option if pt would ever want it removed. Follow-up With When Contact Information RIZWAN MUNIZ, Driss Rodríguez, URL [address] [address]- Additional Instructions: 1 year Patient Education Erectile Dysfunction I, Haylee Gutierres, personally scribed for Dr. Bell on 07/16/2023 10:40:03. . Documentation recorded by the scribe, Haylee Gutierres, accurately reflects the services(s) I performed and decisions made by me. Authenticated by Dr. Bell on 07/16/2023 10:42:04. Problem List/Past Medical History Ongoing Ankylosing spondylitis Arthritis BPH with urinary obstruction Chronic prostatitis Clostridium difficile diarrhea Epididymal cyst Erectile dysfunction GERD - Gastro-esophageal reflux disease Heart disease Inclusion cyst Kidney stone Peripheral neuropathy Urinary frequency Historical Arthritis Tachycardia Procedure/Surgical History Repair of hip (02/18/2023), Colonoscopy, flexible; with removal of tumor(s), polyp(s), or other lesion(s) by snare technique (01/22/2020), Esophagogastroduodenoscopy and biopsy (01/22/2020), Injection of hip using fluoroscopic guidance (05/17/2015), Injection of hip using fluoroscopic guidance (03/08/2015), Back (10/02/2014), Injection of sacroiliac joint using fluoroscopic guidance (06/26/2014), Injection of sacroiliac joint using fluoroscopic guidance (04/06/2014), Radiofrequency denervation of spinal facet joint of lumbar vertebra (02/16/2014 (more content not included)... Normal [facility] Comment on above: Result Comment: Elec tronically Signed By: ARABELLA MUNIZ, Jerrod Burgess.br\Date and Time Signed: 07/16/23 10:42 EDT\.br\Electronically Co-Signed By: Haylee Gutierres.laura\Date and Time Co-Signed: 07/16/23 10:40 EDT Yuan 05-18-2023 CNPN Telephone (HEMASA) ELENA FELIX ([id number]) 1960 M Date Time Provider Department 05/18/23 TIFFANY PETERSON [...] Status:Closed by PANFILO CARRANZA on 05/18/23 Normal [facility] CBC W Auto Differential pane l (Bld)on 05-16-2023 Basophils (Bld) [#/Vol] 0.05 10*3/uL Normal <0.11 [facility] Comment on above: Order Comment: Speci men Type: URINE SPECIMEN Ordering Facility: [facility] Address: [address] [place] [address] Performed By: #### U CALCD, 2956-1 #### [facility] CLIA [id number] [address] [place] [address] [place] #### UCRD #### [facility] CLIA [id number] [address] [place] [address] [place] [facility] CLIA [id number] [address] [place] [address] Basophils/100 WBC (Bld) 1.0 % Normal [facility] Comment on above: Order Comment: Speci men Type: URINE SPECIMEN Ordering Facility: [facility] Address: [address] [place] [address] Performed By: #### U CALCD, 2956-1 #### [facility] CLIA [id number] [address] [place] [address] [place] #### UCRD #### [facility] CLIA [id number] [address] [place] [address] [place] [facility] CLIA [id number] [address] [place] [address] Differential cell count method Nom (Bld) Auto Normal [facility] Comment on above: Order Comment: Speci men Type: URINE SPECIMEN Ordering Facility: [facility] Address: [address] [place] [address] Performed By: #### U CALCD, 2956-1 #### [facility] CLIA [id number] [address] [place] [address] [place] #### UCRD #### [facility] CLIA [id number] [address] [place] [address] [place] [facility] CLIA [id number] [address] [place] [address] Eosinophils (Bld) [#/Vol] 0.29 10*3/uL Normal <0.46 [facility] Comment on above: Order Comment: Speci men Type: URINE SPECIMEN Ordering Facility: [facility] Address: [address] [place] [address] Performed By: #### U CALCD, 2956-1 #### [facility] CLIA [id number] [address] [place] [address] [place] #### UCRD #### [facility] CLIA [id number] [address] [place] [address] [place] [facility] CLIA [id number] [address] [place], [place] [id number] Eosinophils/100 WBC (Bld) 5.5 % Normal [facility] Comment on above: Order Comment: Speci men Type: URINE SPECIMEN Ordering Facility: [facility] Address: [address] [place] [address] [place] [address] Performed By: #### U CALCD, 2955- #### [facility] CLIA [id number] [address] [place] [address] [place] #### UCRD #### [facility] CLIA [id number] [address] [place] [address] [place] [facility] CLIA [id number] [address] [place] [address] Erythrocyte distribution width (RBC) [Ratio] 15.7 % High 11.5-15.0 [facility] Comment on above: Order Comment: Speci men Type: URINE SPECIMEN Ordering Facility: [facility] Address: [address] [place] [address] Performed By: #### U CALCD, 2955- #### [facility] CLIA [id number] [address] [place] [address] [place] #### UCRD #### [facility] CLIA [id number] [address] [place] [address] [place] [facility] CLIA [id number] [address] [place] [address] Hematocrit (Bld) [Volume fraction] 41.4 % Normal 39.0-51.0 [facility] Comment on above: Order Comment: Speci men Type: URINE SPECIMEN Ordering Facility: [facility] Address: [address] [place] [id number] Performed By: #### U CALCD, 2955- #### [facility] CLIA [id number] [address] [place] [address] [place] #### UCRD #### [facility] CLIA [id number] [address] [place] [address] OF [facility] CLIA [id number] [address] [place] [address] Hemoglobin (Bld) [Mass/Vol] 12.8 g/dL Low 13.0-17.0 [facility] Comment on above: Order Comment: Speci men Type: URINE SPECIMEN Ordering Facility: [facility] Address: [address] [place] [address] Performed By: #### U CALCD, 2955- #### [facility] CLIA [id number] [address] [place] [address] [place] #### UCRD #### [facility] CLIA [id number] [address] [place] [address] OF [facility] CLIA [id number] [address] [place] [address] Immature granulocytes (Bld) [#/Vol] 10*3/uL Normal <0.10 [facility] Comment on above: Order Comment: Speci men Type: URINE SPECIMEN Ordering Facility: [facility] Address: [address] [place] [address] Performed By: #### U CALCD, 2955- #### [facility] CLIA [id number] [address] [place] [address] [place] #### UCRD #### [facility] CLIA [id number] [address] [place] [address] STATES OF [facility] CLIA [id number] [address] [place] [address] Immature granulocytes/100 WBC (Bld) 0.4 % Normal [facility] Comment on above: Order Comment: Speci men Type: URINE SPECIMEN Ordering Facility: [facility] Address: [address] [place] [address] Performed By: #### U CALCD, 2955- #### [facility] CLIA [id number] [address] [place] [address] [place] #### UCRD #### [facility] CLIA [id number] [address] [place] [address] [place] [facility] CLIA [id number] [address] [place] [address] Lymphocytes (Bld) [#/Vol] 1.20 10*3/uL Normal 1.00-4.00 [facility] Comment on above: Order Comment: Speci men Type: URINE SPECIMEN Ordering Facility: [facility] Address: [address] [place] [address] Performed By: #### U ELENA, 2956-1 #### [facility] CLIA [id number] [address] [place] [address] [place] #### UCRD #### [facility] CLIA [id number] [address] [place] [address] [place] [facility] CLIA [id number] [address] [place] [address] Lymphocytes/100 WBC (Bld) 22.9 % Normal [facility] Comment on above: Order Comment: Speci men Type: URINE SPECIMEN Ordering Facility: [facility] Address: [address] [place] [address] Performed By: #### U CALCD, 2956- #### [facility] CLIA [id number] [address] [place] [address] [place] #### UCRD #### [facility] CLIA [id number] [address] [place] [address] [place] [facility] CLIA [id number] [address] [place] [address] 78776 MCH (RBC) [Entitic mass] 29.4 pg Normal 26.0-34.0 [facility] Comment on above: Order Comment: Speci men Type: URINE SPECIMEN Ordering Facility: [facility] Address: [address] [place] [address] Performed By: #### U CALCD, 2955- #### [facility] CLIA [id number] [address] [place] [address] [place] #### UCRD #### [facility] CLIA [id number] [address] [place] [address] [place] [facility] CLIA [id number] [address] [place] [address]37 MCHC (RBC) [Mass/Vol] 30.9 g/dL Normal 30.5-36.0 [facility] Comment on above: Order Comment: Speci men Type: URINE SPECIMEN Ordering Facility: [facility] Address: [address] [place] [address] Performed By: #### U CALCD, 2955- #### [facility] CLIA [id number] [address] [place] [address] [place] #### UCRD #### [facility] CLIA [id number] [address] [place] [address] [place] [facility] CLIA [id number] [address] [place] [address] MCV (RBC) [Entitic vol] 95.0 fL Normal 80.0-100.0 [facility] Comment on above: Order Comment: Speci men Type: URINE SPECIMEN Ordering Facility: [facility] Address: [address] [place] [id number] Performed By: #### U CALCD, 2955- #### [facility] CLIA [id number] [address] [place] [address] [place] #### UCRD #### [facility] CLIA [id number] STATES OF [facility] CLIA [id number] [address] [place] [address] Monocytes (Bld) [#/Vol] 0.36 10*3/uL Normal <0.87 [facility] Comment on above: Order Comment: Speci men Type: URINE SPECIMEN Ordering Facility: [facility] Address: [address] [place] [address] Performed By: #### U CALCD, 2955- #### [facility] CLIA [id number] [address] [place] [address] [place] #### UCRD #### [facility] CLIA [id number] [address] [place] [address] [place] [facility] CLIA [id number] [address] [place] [address]65 Monocytes/100 WBC (Bld) 6.9 % Normal [facility] Comment on above: Order Comment: Speci men Type: URINE SPECIMEN Ordering Facility: [facility] Address: [address] [place] [address] Performed By: #### U CALCD, 2955- #### [facility] CLIA [id number] [address] [place] [address] [place] #### UCRD #### [facility] CLIA [id number] [address] [place] [address] [place] [facility] CLIA [id number] [address] [place] [address] Neutrophils (Bld) [#/Vol] 3.31 10*3/uL Normal 1.45-7.50 [facility] Comment on above: Order Comment: Speci men Type: URINE SPECIMEN Ordering Facility: [facility] Address: [address] [place] [id number] Performed By: #### U CALCD, 2955- #### [facility] CLIA [id number] [address] [place] [id number] [place] #### UCRD #### [facility] CLIA [id number] [address] [place] [address] [place] [facility] CLIA [id number] [address] [place] [address] 29383 Neutrophils/100 WBC (Bld) 63.3 % Normal [facility] Comment on above: Order Comment: Speci men Type: URINE SPECIMEN Ordering Facility: [facility] Address: [address] [place], [place] [address] Performed By: #### U ELENA, 2956-1 #### [facility] CLIA [id number] [address] [place] [address] [place] #### UCRD #### [facility] CLIA [id number] [address] [place] [address] [place] [facility] CLIA [id number] [address] [place] [address]857 Nucleated RBC (Bld) [#/Vol] 10*3/uL Normal <0.01 [facility] Comment on above: Order Comment: Speci men Type: URINE SPECIMEN Ordering Facility: [facility] Address: [address] [place], [place] [address] Performed By: #### U ELENA, 2956- #### [facility] CLIA [id number] [address] [place], [place] [id number] [place] #### UCRD #### [facility] CLIA [id number] [address] [place], [place] [id number] [place] [facility] CLIA [id number] [address] [place] [address]25 Nucleated RBC/100 WBC (Bld) [Ratio] 0.0 /100 WBC Normal [facility] Comment on above: Order Comment: Speci men Type: URINE SPECIMEN Ordering Facility: [facility] Address: [address] [place] [id number] Performed By: #### U CALCD, 6- #### [facility] CLIA [id number] [address] [place] [address] [place] #### UCRD #### [facility] CLIA [id number] [address] [place] [address] [place] [facility] CLIA [id number] [address] [place] [address]8865 Platelet mean volume (Bld) [Entitic vol] 9.5 fL Normal 9.0-12.7 [facility] Comment on above: Order Comment: Speci men Type: URINE SPECIMEN Ordering Facility: [facility] Address: [address] [place] [address] Performed By: #### U ELENA, 2955- #### [facility] CLIA [id number] [address] [place] [address] [place] #### UCRD #### [facility] CLIA [id number] [address] [place] [address] [place] [facility] CLIA [id number] [address] [place] [address]15 Platelets (Bld) [#/Vol] 233 10*3/uL Normal 150-400 [facility] Comment on above: Order Comment: Speci men Type: URINE SPECIMEN Ordering Facility: [facility] Address: [address] [place] [id number] Performed By: #### U CALCD, 2955- #### [facility] CLIA [id number] [address] [place] [address] [place] #### UCRD #### [facility] CLIA [id number] [address] [place] [address] [place] [facility] CLIA [id number] [address] [place] [address] RBC (Bld) [#/Vol] 4.36 10*6/uL Normal 4.20-6.00 [facility] Comment on above: Order Comment: Speci men Type: URINE SPECIMEN Ordering Facility: [facility] Address: [address] [place] [address] Performed By: #### U ELENA, 2956-1 #### [facility] CLIA [id number] [address] [place] [address] [place] #### UCRD #### [facility] CLIA [id number] [address] [place] [address] [place] [facility] CLIA [id number] [address] [place] [address] WBC (Bld) [#/Vol] 5.23 10*3/uL Normal 3.70-11.00 [facility] Comment on above: Order Comment: Speci men Type: URINE SPECIMEN Ordering Facility: [facility] Address: [address] [place] [address] Performed By: #### Ethan PARKER, 2956-1 #### [facility] CLIA [id number] [address] [place] [address] [place] #### UCRD #### [facility] CLIA [id number] [address] [place] [address] [place] [facility] CLIA [id number] [address] [place], [place] [id number] CNOVSPon 05-16-2023 CNOVSP Visit (SP) Office ( CARLOS) ELENA FELIX ([id number]) 1960 M Date Time Provider Department 05/16/23 11:00 AM TIFFANY PETERSON During your visit today, we recorded the following information about you: Temperature Pulse Respiration Blood pressure 97.6 degrees 101/minute 18/minute 113/66 Weight Height 131.4 kg 1.88 m Tiffany Peterson PA-C 05/16/2023 12:16 PM Signed PATIENT NAME: Elena Felix CLINIC NO.: [id number] ATTENDING PHYSICIAN: Merly Marti MD DATE OF [...] PAST MEDICAL HISTORY Diagnosis Date Ankylosing spondylitis ([facility]) Dr Hodges Ankylosing spondylitis ([facility]) Arthritis Back pain Cardiomyopathy ([facility]) Nonischemic Congestive Cerebrovascular small vessel disease 08/24/2016 On ASA DVT (deep venous thrombosis) ([facility]) Esophageal reflux Former smoker Kidney stones Major depressive disorder with single episode, in remission ([facility]) 08/24/2016 Morbid obesity with BMI of 40.0-44.9, adult ([facility]) Neuropathy Obstructive sleep apnea syndrome, severe [...] Range Status 05/16/2023 6.9 % Final Abs Greene Date Value Ref Range Status 05/16/2023 0.36 <0.87 k/uL Final Eosinophils % Date Value Ref Range Status (more content not included)... Normal [facility] Ferritin SerPl-mCncon 2023 Ferritin [Mass/Vol] 170.0 ng/mL Normal 30.3-565.7 [facility] Comment on above: Order Comment: Speci men Type: BLOOD SPECIMEN Ordering Facility: [facility] Address: [address] [place] [address] Performed By: #### 5 7021-8 #### [facility] CLIA [id number] [address] [place] [address] IMMUNOFIXATION SCREEN, SERUM on 05-16-2023 MPA RESULT No M protein is identified. Normal No M protein is identified. [facility] Comment on above: Order Comment: Speci men Type: BLOOD SPECIMEN Ordering Facility: [facility] Address: [address] [place] [address] Performed By: #### 5 7021-8 #### [facility] CLIA [id number] [address] [place] [address] STAFF REVIEW (MPA) Reviewed by Shelly flores M.D. Normal [facility] Comment on above: Order Comment: Speci men Type: BLOOD SPECIMEN Ordering Facility: [facility] Address: [address] [place] [address] Performed By: #### 5 7021-8 #### [facility] CLIA [id number] [address] [place] [address] IMMUNOGLOBULINS GAMon 2023 IgA [Mass/Vol] 165 mg/dL Normal 70-400 [facility] Comment on above: Order Comment: Speci men Type: BLOOD SPECIMEN Ordering Facility: [facility] Address: [address] [place] [address] Performed By: #### 5 7021-8 #### [facility] CLIA [id number] [address] [place] [address] 11381 IgG [Mass/Vol] 888 mg/dL Normal 700-1600 [facility] Comment on above: Order Comment: Speci men Type: BLOOD SPECIMEN Ordering Facility: [facility] Address: [address] [place] [address] Performed By: #### 5 7021-8 #### [facility] CLIA [id number] [address] [place] [address] 14940 IgM [Mass/Vol] 34 mg/dL Low 40-230 [facility] Comment on above: Order Comment: Speci men Type: BLOOD SPECIMEN Ordering Facility: [facility] Address: [address] [place] [address] Performed By: #### 5 7021-8 #### [facility] CLIA [id number] [address] [place] [address] Iron and Iron binding capaci ty panelon 05-16-2023 Iron [Mass/Vol] 150 ug/dL Normal 41-186 [facility] Comment on above: Order Comment: Speci men Type: BLOOD SPECIMEN Ordering Facility: [facility] Address: [address] [place] [address] Performed By: #### S QBTESTM, 2731-8 #### [facility] CLIA [id number] [address] [place], [place] [address]K [id number] STATES OF PER Iron binding capacity [Mass/Vol] 291 ug/dL Normal 232-386 [facility] Comment on above: Order Comment: Speci men Type: BLOOD SPECIMEN Ordering Facility: [facility] Address: [address] [place] [address] Performed By: #### S QBTESTM, 2730-11 #### [facility] CLIA [id number] [address] [place] [address] [place] Iron/TIBC [Molar ratio] 51.5 % Normal 15.0-57.0 [facility] Comment on above: Order Comment: Speci men Type: BLOOD SPECIMEN Ordering Facility: [facility] Address: [address] [place] [address] Performed By: #### S QBTESTM, 2730-11 #### [facility] CLIA [id number] [address] [place] [address] [place] KAPPA/KEANE,FREE,SERon 2023 Immunoglobulin light chains.kappa.free (S) [Mass/Vol] 38.0 mg/L High 3.3-19.4 [facility] Comment on above: Order Comment: Speci men Type: URINE SPECIMEN Ordering Facility: [facility] Address: [address] [place] [address] Result Comment: Rare ly, increased serum free light chains levels may not be detected or accurately quantified due to prozone phenomenon or in high viscosity samples using this immunoturbidimetric assay. Correlation with other laboratory results and clinical findings is recommended. The [place] Free Light Chain was performed using the Binding Site Optilite immunoturbidimetric method. Result obtained with different assay methods or kits cannot be used interchangeably. Performed By: #### U CALCD, 2956-1 #### [facility] CLIA [id number] [address] [place] [address] [place] #### UCRD #### [facility] CLIA [id number] [address] [place] [address] [place] [facility] CLIA [id number] [address] [place], [place] [address] Immunoglobulin light chains.kappa/Immunogl obulin light chains.lambda (S) [Mass ratio] 2.26 High 0.26-1.65 [facility] Comment on above: Order Comment: Speci men Type: URINE SPECIMEN Ordering Facility: [facility] Address: [address] [place] [address] Performed By: #### U CALCD, 2956- #### [facility] CLIA [id number] [address] [place] [address] [place] #### UCRD #### [facility] CLIA [id number] [address] [place] [address] STATES OF [facility] CLIA [id number] [address] [place] [address] Immunoglobulin light chains.lambda.free [Mass/Vol] 16.8 mg/L Normal 5.7-26.3 [facility] Comment on above: Order Comment: Speci men Type: URINE SPECIMEN Ordering Facility: [facility] Address: [address] [place] [address] Result Comment: Rare ly, increased serum free [...] cannot be used interchangeably. Performed By: #### U CALCD, 2955- #### [facility] CLIA [id number] [address] [place] [address] [place] #### UCRD #### [facility] CLIA [id number] [address] [place] [address] [place] [facility] CLIA [id number] [address] [place], [place] [address] PROTEIN ELECTROPHORESIS SERU M (P)on 05-16-2023 Albumin [Mass/Vol] 3.66 g/dL Normal 3.43-5.41 [facility] Comment on above: Order Comment: Speci men Type: URINE SPECIMEN Ordering Facility: [facility] Address: [address] [place] [address] Performed By: #### U CALCD, 2956-1 #### [facility] CLIA [id number] [address] [place] [address] [place] #### UCRD #### [facility] CLIA [id number] [address] [place] [address] [place] [facility] CLIA [id number] [address] [place] [address] Alpha 1 globulin Elph [Mass/Vol] 0.43 g/dL Normal 0.18-0.43 [facility] Comment on above: Order Comment: Speci men Type: URINE SPECIMEN Ordering Facility: [facility] Address: [address] [place] [address] Performed By: #### U CALCD, 2955- #### [facility] CLIA [id number] [address] [place] [address] [place] #### UCRD #### [facility] CLIA [id number] [address] [place] [address] [place] [facility] CLIA [id number] [address] [place] [address] 83282 Alpha 2 globulin Elph [Mass/Vol] 1.02 g/dL High 0.42-0.98 [facility] Comment on above: Order Comment: Speci men Type: URINE SPECIMEN Ordering Facility: [facility] Address: [address] [place] [address] Performed By: #### U CALCD, 2956- #### [facility] CLIA [id number] [address] [place] [address] [place] #### UCRD #### [facility] CLIA [id number] [address] [place] [address] OF [facility] CLIA [id number] [address] [place] [address] 19038 Beta globulin Elph [Mass/Vol] 0.84 g/dL Normal 0.61-1.17 [facility] Comment on above: Order Comment: Speci men Type: URINE SPECIMEN Ordering Facility: [facility] Address: [address] [place] [address] Performed By: #### U CALCD, 2956-1 #### [facility] CLIA [id number] [address] [place] [address] [place] #### UCRD #### [facility] CLIA [id number] [address] [place] [address] [place] [facility] CLIA [id number] [address] [place] [address] Gamma globulin Elph [Mass/Vol] 0.85 g/dL Normal 0.53-1.51 [facility] Comment on above: Order Comment: Speci men Type: URINE SPECIMEN Ordering Facility: [facility] Address: [address] [place] [address] Performed By: #### U CALCD, 2956-1 #### [facility] CLIA [id number] [address] [place] [address] [place] #### UCRD #### [facility] CLIA [id number] [address] [place] [address] STATES OF [facility] CLIA [id number] [address] [place] [address] M-PROTEIN LOCATION Normal [facility] Comment on above: Order Comment: Speci men Type: URINE SPECIMEN Ordering Facility: [facility] Address: [address] [place] [address] Result Comment: Not Applicable. Performed By: #### U CALCD, 2955- #### [facility] CLIA [id number] [address] [place] [address] [place] #### UCRD #### [facility] CLIA [id number] [address] [place] [address] [place] [facility] CLIA [id number] [address] [place] [address] Protein Fractions [Interp] No definitive M protein is identified on protein electrophoresis. Normal No definitive M protein is identified on protein electrophor esis. [facility] Comment on above: Order Comment: Speci men Type: URINE SPECIMEN Ordering Facility: [facility] Address: [address] [place] [address] Performed By: #### U CALCD, 2955- #### [facility] CLIA [id number] [address] [place] [address] [place] #### UCRD #### [facility] CLIA [id number] [address] [place] [address] STATES OF PER [facility] CLIA [id number] [address] [place] [address] Protein.monoclonal Elph [Mass/Vol] 0.00 g/dL Normal <=0.00 [facility] Comment on above: Order Comment: Speci men Type: URINE SPECIMEN Ordering Facility: [facility] Address: [address] [place] [address] Performed By: #### U CALCD, 2955- #### [facility] CLIA [id number] [address] [place] [address] [place] #### UCRD #### [facility] CLIA [id number] [address] [place] [address] [place] [facility] CLIA [id number] [address] [place], [place] [address] SPE STAFF REVIEW Reviewed by Shelly flores M.D. Normal [facility] Comment on above: Order Comment: Speci men Type: URINE SPECIMEN Ordering Facility: [facility] Address: [address] [place] [address] Performed By: #### U CALCD, 2956-1 #### [facility] CLIA [id number] [address] [place] [address] [place] #### UCRD #### [facility] CLIA [id number] [address] [place] [address] [place] [facility] CLIA [id number] [address] [place] [address] Prot SerPl-mCncon 05-16-2023 Protein [Mass/Vol] 6.8 g/dL Normal 6.3-8.0 [facility] Comment on above: Order Comment: Speci men Type: BLOOD SPECIMEN Ordering Facility: [facility] Address: [address] [place] [address] Performed By: #### S QBTEST, 2731-8 #### [facility] CLIA [id number] [address] [place] [address] [place] Alanine aminotransferase [En zymatic activity/volume] in Serum or PlasmaOrdered By: Brad Hodges on 05-03-2023 ALT [Catalytic activity/Vol] 18 U/L 7-52 [facility] Albumin [Mass/volume] in Ser um or Plasma by Bromocresol green (BCG) dye binding methoOrdered By: Brad Hodges on 05-03-2023 Albumin BCG dye [Mass/Vol] 3.6 g/dL 3.5-5.7 [facility] Alkaline phosphatase [Enzyma tic activity/volume] in Serum or PlasmaOrdered By: Brad Hodges on 05-03-2023 ALP [Catalytic activity/Vol] 66 U/L 34-104 [facility] Aspartate aminotransferase [ Enzymatic activity/volume] in Serum or PlasmaOrdered By: Brad Hodges on 05-03-2023 AST [Catalytic activity/Vol] 16 U/L 13-39 [facility] Basophils Auto (Bld) [#/Vol] Ordered By: Brad Hodges on 05-03-2023 Basophils (Bld) [#/Vol] 0.0 10*3/uL 0.0-0.2 [facility] Basophils/100 WBC Auto (Bld) Ordered By: Brad Hodges on 05-03-2023 Basophils/100 WBC (Bld) 0.9 % . [facility] Bilirubin.total [Mass/volume ] in Serum or PlasmaOrdered By: Brad Hodges on 05-03-2023 Bilirubin [Mass/Vol] 0.4 mg/dL 0.3-1.0 [facility] Calcium [Mass/volume] in Ser um or PlasmaOrdered By: Brad Hodges on 05-03-2023 Calcium [Mass/Vol] 9.1 mg/dL 8.6-10.3 [facility] Carbon dioxide, total [Moles /volume] in Serum or PlasmaOrdered By: Brad Hodges on 05-03-2023 CO2 [Moles/Vol] 29.5 mmol/L 21.0-31.0 [facility] Chloride [Moles/volume] in S eliza or PlasmaOrdered By: Brad Hodges on 05-03-2023 Chloride [Moles/Vol] 107 mmol/L 98-107 [facility] Complete Blood Count Auto Di ffon 05-03-2023 Basophils (Bld) [#/Vol] 0.0 10*3/uL Normal 0.0-0.2 [facility] Comment on above: Performed By: #### C BC, ESR, CMP #### [facility] [address] [place] [address] [place] Basophils/100 WBC (Bld) 0.9 % Normal . [facility] Comment on above: Performed By: #### C BC, ESR, CMP #### [facility] [address] [place] [id number] [place] Eosinophils (Bld) [#/Vol] 0.3 10*3/uL Normal 0.0-0.45 [facility] Comment on above: Performed By: #### C BC, ESR, CMP #### [address] Eosinophils/100 WBC (Bld) 6.6 % Normal . [facility] Comment on above: Performed By: #### C BC, ESR, CMP #### [address] Erythrocyte distribution width (RBC) [Ratio] 15.9 % High 12.0-14.8 [facility] Comment on above: Performed By: #### C BC, ESR, CMP #### [address] Hematocrit (Bld) [Volume fraction] 38.5 % Low 38.8-50.0 [facility] Comment on above: Performed By: #### C BC, ESR, CMP #### [address] Hemoglobin (Bld) [Mass/Vol] 12.3 g/dL Low 13.0-17.0 [facility] Comment on above: Performed By: #### C BC, ESR, CMP #### [address] Lymphocytes (Bld) [#/Vol] 1.2 10*3/uL Normal 1.00-4.8 [facility] Comment on above: Performed By: #### C BC, ESR, CMP #### [place] [address] [place] Lymphocytes/100 WBC (Bld) 25.4 % Normal . [facility] Comment on above: Performed By: #### C BC, ESR, CMP #### [address] MCH (RBC) [Entitic mass] 29.5 pg Normal 27.5-35.2 [facility] Comment on above: Performed By: #### C BC, ESR, CMP #### [address] MCV (RBC) [Entitic vol] 92.1 fL Normal 83.5-101 [facility] Comment on above: Performed By: #### C BC, ESR, CMP #### [address] Mean Corpuscular HGB Conc 32.0 g/dL Low 32.5-35.6 [facility] Comment on above: Performed By: #### C BC, ESR, CMP #### [address] Monocytes (Bld) [#/Vol] 0.2 10*3/uL Normal 0.0-0.8 [facility] Comment on above: Performed By: #### C BC, ESR, CMP #### [address] Monocytes/100 WBC (Bld) 4.3 % Normal . [facility] Comment on above: Performed By: #### C BC, ESR, CMP #### [address] Neutrophils (Bld) [#/Vol] 3.0 10*3/uL Normal 1.8-7.7 [facility] Comment on above: Performed By: #### C BC, ESR, CMP #### [address] Neutrophils/100 WBC (Bld) 62.8 % Normal . [facility] Comment on above: Performed By: #### C BC, ESR, CMP #### [address] NRBC% 0.1 /100{WBC} Normal 0-0.5 [facility] Comment on above: Performed By: #### C BC, ESR, CMP #### [address] Platelet mean volume (Bld) [Entitic vol] 8.2 fL Normal 6.6-10.1 [facility] Comment on above: Performed By: #### C BC, ESR, CMP #### [address] Platelets (Bld) [#/Vol] 249 10*3/uL Normal 150-450 [facility] Comment on above: Performed By: #### C BC, ESR, CMP #### [address] RBC (Bld) [#/Vol] 4.17 10*6/uL Normal 3.90-5.60 [facility] Comment on above: Performed By: #### C BC, ESR, CMP #### [address] WBC (Bld) [#/Vol] 4.8 10*3/uL Normal 4.1-10.5 [facility] Comment on above: Performed By: #### C BC, ESR, CMP #### [address] Comprehensive Metabolic Pane robert 05-03-2023 Albumin [Mass/Vol] 3.6 g/dL Normal 3.5-5.7 [facility] Comment on above: Performed By: #### C BC, ESR, CMP #### [address] Albumin/Globulin [Mass ratio] 1.4 {ratio} Normal [facility] Comment on above: Performed By: #### C BC, ESR, CMP #### [address] ALP [Catalytic activity/Vol] 66 U/L Normal 34-104 [facility] Comment on above: Result Comment: PERF ORMED BY: [place] [address] PATHOLOGIST TUFTING MACHINE OPERATOR SINGLE NEEDLE JENNIFER CALDERON M.D. Performed By: #### C BC, ESR, CMP #### [address] ALT [Catalytic activity/Vol] 18 U/L Normal 7-52 [facility] Comment on above: Performed By: #### C BC, ESR, CMP #### [address] Anion gap [Moles/Vol] 10.1 mmol/L Normal 6.0-15.0 [facility] Comment on above: Performed By: #### C BC, ESR, CMP #### [facility] [address] AST [Catalytic activity/Vol] 16 U/L Normal 13-39 [facility] Comment on above: Performed By: #### C BC, ESR, CMP #### [facility] [address] Bilirubin [Mass/Vol] 0.4 mg/dL Normal 0.3-1.0 [facility] Comment on above: Performed By: #### C BC, ESR, CMP #### [facility] [address] Calcium [Mass/Vol] 9.1 mg/dL Normal 8.6-10.3 [facility] Comment on above: Performed By: #### C BC, ESR, CMP #### [facility] [address] [place] [address] [place] Chloride [Moles/Vol] 107 mmol/L Normal 98-107 [facility] Comment on above: Performed By: #### C BC, ESR, CMP #### [facility] [address] [place] [address] [place] CO2 [Moles/Vol] 29.5 mmol/L Normal 21.0-31.0 [facility] Comment on above: Performed By: #### C BC, ESR, CMP #### [facility] [address] [place] [address] [place] Creatinine [Mass/Vol] 1.33 mg/dL High 0.70-1.30 [facility] Comment on above: Performed By: #### C BC, ESR, CMP #### [facility] [address] [place] [address] [place] GFR/1.73 sq M.predicted MDRD (S/P/Bld) [Vol rate/Area] mL/min/{1.73_m2} Normal [facility] Comment on above: Performed By: #### C BC, ESR, CMP #### [facility] [address] [place] [address] [place] Globulin (S) [Mass/Vol] 2.6 g/dL Normal [facility] Comment on above: Performed By: #### C BC, ESR, CMP #### [facility] [address] Glucose [Mass/Vol] 122 mg/dL High 70-100 [facility] Comment on above: Result Comment: [place] Glucose Reference Range is dependent on time and content of last meal. Glucose of more than 200 mg/dL in a nonstressed, ambulatory subject supports the diagnosis of Diabetes Mellitus. ADA recommended reference range Performed By: #### C BC, ESR, CMP #### [facility] [address] Potassium [Moles/Vol] 4.6 mmol/L Normal 3.5-5.1 [facility] Comment on above: Performed By: #### C BC, ESR, CMP #### [facility] [address] Protein [Mass/Vol] 6.2 g/dL Low 6.4-8.9 [facility] Comment on above: Performed By: #### C BC, ESR, CMP #### [facility] [address] [place] [address] [place] Sodium [Moles/Vol] 142 mmol/L Normal 136-145 [facility] Comment on above: Performed By: #### C BC, ESR, CMP #### [facility] [address] [place] [id number] [place] Urea nitrogen [Mass/Vol] 22 mg/dL Normal 7-25 [facility] Comment on above: Performed By: #### C BC, ESR, CMP #### [facility] [address] [place] [id number] [place] Creatinine [Mass/volume] in Serum or PlasmaOrdered By: Brad Hodges on 05-03-2023 Creatinine [Mass/Vol] 1.33 mg/dL 0.70-1.30 [facility] Eosinophils Auto (Bld) [#/Vo l]Ordered By: Brad Hodges on 05-03-2023 Eosinophils (Bld) [#/Vol] 0.3 10*3/uL 0.0-0.45 [facility] Eosinophils/100 WBC Auto (Bl d)Ordered By: Brad Hodges on 05-03-2023 Eosinophils/100 WBC (Bld) 6.6 % . [facility] Erythrocyte Sedimentation Ra alexia 05-03-2023 ESR (Bld) [Velocity] 35 mm/h High 0-19 [facility] Comment on above: Result Comment: PERF ORMED BY: [facility] [address] [place] [address] PATHOLOGIST TUFTING MACHINE OPERATOR SINGLE NEEDLE JENNIFER CALDERON M.D. Performed By: #### C BC, ESR, CMP #### [facility] [address] Erythrocyte distribution wid th Auto (RBC) [Ratio]Ordered By: Brad Hodges on 05-03-2023 Erythrocyte distribution width (RBC) [Ratio] 15.9 % 12.0-14.8 [facility] Erythrocyte sedimentation ra te by Photometric methodOrdered By: Brad Hodges on 05-03-2023 ESR Photometric method (Bld) [Velocity] 35 mm/hr 0-19 [facility] Globulin Calc (S) [Mass/Vol] Ordered By: Brad Hodges on 05-03-2023 Globulin (S) [Mass/Vol] 2.6 g/dL [facility] Glucose [Mass/volume] in Ser um or PlasmaOrdered By: Brad Hodges on 05-03-2023 Glucose [Mass/Vol] 122 mg/dL 70-100 [facility] Comment on above: ADA recommended refe rence rangeRandom Glucose Reference Range is dependent on time and content of last meal. Glucose of more than 200 mg/dL in a nonstressed, ambulatory subject supports the diagnosis of Diabetes Mellitus. Hematocrit Auto (Bld) [Volum e fraction]Ordered By: Brad Hodges on 05-03-2023 Hematocrit (Bld) [Volume fraction] 38.5 % 38.8-50.0 [facility] Hemoglobin [Mass/volume] in BloodOrdered By: Brad Hodges on 05-03-2023 Hemoglobin (Bld) [Mass/Vol] 12.3 g/dL 13.0-17.0 [facility] Leukocytes [#/volume] correc christen for nucleated erythrocytes in Blood by Automated counOrdered By: Brad Hodges on 05-03-2023 WBC corrected for nucl RBC Auto (Bld) [#/Vol] 4.8 10*3/uL 4.1-10.5 [facility] Lymphocytes Auto (Bld) [#/Vo l]Ordered By: Brad Hodges on 05-03-2023 Lymphocytes (Bld) [#/Vol] 1.2 10*3/uL 1.00-4.8 [facility] Lymphocytes/100 WBC Auto (Bl d)Ordered By: Brad Hodges on 05-03-2023 Lymphocytes/100 WBC (Bld) 25.4 % . [facility] MCH Auto (RBC) [Entitic mass ]Ordered By: Brad Hodges on 05-03-2023 MCH (RBC) [Entitic mass] 29.5 pg 27.5-35.2 [facility] MCHC Auto (RBC) [Mass/Vol]Or dered By: Brad Hodges on 05-03-2023 MCHC (RBC) [Mass/Vol] 32.0 g/dL 32.5-35.6 [facility] MCV Auto (RBC) [Entitic vol] Ordered By: Brad Hodges on 05-03-2023 MCV (RBC) [Entitic vol] 92.1 fL 83.5-101 [facility] Monocytes Auto (Bld) [#/Vol] Ordered By: Brad Hodges on 05-03-2023 Monocytes (Bld) [#/Vol] 0.2 10*3/uL 0.0-0.8 [facility] Monocytes/100 WBC Auto (Bld) Ordered By: Brad Hodges on 05-03-2023 Monocytes/100 WBC (Bld) 4.3 % . [facility] Neutrophils Auto (Bld) [#/Vo l]Ordered By: Brad Hodges on 05-03-2023 Neutrophils (Bld) [#/Vol] 3.0 10*3/uL 1.8-7.7 [facility] Neutrophils/100 WBC Auto (Bl d)Ordered By: Brad Hodges on 05-03-2023 Neutrophils/100 WBC (Bld) 62.8 % . [facility] No Panel InformationOrdered By: Brad Hodges on 05-03-2023 Estimated GFR (CKD-EPI) > 60.0 mL/Min [facility] Creatinine Clearance (Chem N/A [facility] Nucleated erythrocytes [Pres ence] in Blood by Automated countOrdered By: Brad Hodges on 05-03-2023 Nucleated RBC Auto Ql (Bld) 0.1 /100{WBC} 0-0.5 [facility] Platelet mean volume Auto (B ld) [Entitic vol]Ordered By: Brad Hodges on 05-03-2023 Platelet mean volume (Bld) [Entitic vol] 8.2 fL 6.6-10.1 [facility] Platelets Auto (Bld) [#/Vol] Ordered By: Brad Hodges on 05-03-2023 Platelets (Bld) [#/Vol] 249 10*3/uL 150-450 [facility] Potassium [Moles/volume] in Serum or PlasmaOrdered By: Brad Hodges on 05-03-2023 Potassium [Moles/Vol] 4.6 mmol/L 3.5-5.1 [facility] Protein [Mass/volume] in Ser um or PlasmaOrdered By: Brad Hodges on 05-03-2023 Protein [Mass/Vol] 6.2 g/dL 6.4-8.9 [facility] RBC Auto (Bld) [#/Vol]Ordere d By: Brad Hodges on 05-03-2023 RBC (Bld) [#/Vol] 4.17 10*6/uL 3.90-5.60 [facility] Serum or plasma albumin/glob ulin mass ratioOrdered By: Brad Hodges on 05-03-2023 Albumin/Globulin [Mass ratio] 1.4 {ratio} [facility] Serum or plasma anion gap de terminationOrdered By: Brad Hodges on 05-03-2023 Anion gap [Moles/Vol] 10.1 mmol/L 6.0-15.0 [facility] Sodium [Moles/volume] in Ser um or PlasmaOrdered By: Brad Hodges on 05-03-2023 Sodium [Moles/Vol] 142 mmol/L 136-145 [facility] Urea nitrogen [Mass/volume] in Serum or PlasmaOrdered By: Brad Hodges on 05-03-2023 Urea nitrogen [Mass/Vol] 22 mg/dL 7-25 [facility] WBC Auto (Bld) [#/Vol]Ordere d By: Brad Hodges on 05-03-2023 WBC (Bld) [#/Vol] 4.8 10*3/uL 4.1-10.5 [facility] Hep C Ab wRfx to Qnt PCRon 0 12-11-2022 Hepatitis C Virus Antibody Non-Reactive Normal Non Reactive [facility] Comment on above: Performed By: #### H BSAB, HCV RX PCR, QUANT TB, HBCAB, HBSAG #### [facility] , Interpretation Hepatitis C Normal . [facility] Comment on above: Result Comment: Not infected with HCV unless early or acute infection is suspected (which may be delayed in an immunocompromised individual), or other evidence exists to indicate HCV infection. Performed By: #### H BSAB, HCV RX PCR, QUANT TB, HBCAB, HBSAG #### [facility] , Hepatitis B Core Antibodyon 12-11-2022 Hepatitis B Core Antibody Negative Normal Negative [facility] Comment on above: Result Comment: Perf ormed at: [facility] [place] [id number] Link Trainer Operator: Cosme Kang PhD, Phone: [phone] Performed By: #### H BSAB, HCV RX PCR, QUANT TB, HBCAB, HBSAG #### [facility] , Hepatitis B Surface Antibody on 12-11-2022 Hepatitis B Surface Antibody Non-Reactive Normal . [facility] Comment on above: Result Comment: Non Reactive: Inconsistent with immunity, less than 10 mIU/mL Reactive: Consistent with immunity, greater than 9.9 mIU/mL Performed By: #### H BSAB, HCV RX PCR, QUANT TB, HBCAB, HBSAG #### [facility] , Hepatitis B Surface Antigeno n 12-11-2022 HBsAg Screen Negative Normal Negative [facility] Comment on above: Result Comment: PERF ORMED BY: [address] [place] [address] PATHOLOGIST TUFTING MACHINE OPERATOR SINGLE NEEDLE JENNIFER CALDERON M.D. Performed By: #### H BSAB, HCV RX PCR, QUANT TB, HBCAB, HBSAG #### [facility] , QuantiFERON TB Goldon 2022 QFTB Criteria Normal . [facility] Comment on above: Result Comment: Mj tiFERON-TB [...] control for the test. Performed By: #### H BSAB, HCV RX PCR, QUANT TB, HBCAB, HBSAG #### [facility] , Quant TB Ag Value 0.05 Normal . [facility] Comment on above: Performed By: #### H BSAB, HCV RX PCR, QUANT TB, HBCAB, HBSAG #### [facility] , Quant TB Gold Plus Negative Normal Negative [facility] Comment on above: Result Comment: No r [...] interferon gamma. Chemiluminescence immunoassay methodology Performed at: [facility] [employer] [id number] Link Trainer Operator: Cosme Kang PhD, Phone: [phone] PERFORMED BY: [address] [place] [address] PATHOLOGIST TUFTING MACHINE OPERATOR SINGLE NEEDLE JENNIFER CALDERON M.D. Performed By: #### H BSAB, HCV RX PCR, QUANT TB, HBCAB, HBSAG #### [facility] , Quant TB2 Ag Value 0.05 Normal . [facility] Comment on above: Performed By: #### H BSAB, HCV RX PCR, QUANT TB, HBCAB, HBSAG #### [facility] , Quantiferon Nil Value 0.06 Normal . [facility] Comment on above: Performed By: #### H BSAB, HCV RX PCR, QUANT TB, HBCAB, HBSAG #### [facility] , Quantiferon TB Mitogen >10.00 Normal . [facility] Comment on above: Performed By: #### H BSAB, HCV RX PCR, QUANT TB, HBCAB, HBSAG #### [facility] , Aerobic Cultureon 10-31-2022 Aerobic Culture ORGANISM: Staphyloco [...] RESISTANT TO ALL B-LACTAM DRUGS. PERFORMED BY: [place] [address] PATHOLOGIST TUFTING MACHINE OPERATOR SINGLE NEEDLE JENNIFER CALDERON M.D. Normal [facility] Comment on above: Performed By: #### G S, AERC #### [place] [id number] [facility] Anaerobic cultureOrdered By: Silvana Lundberg on 10-31-2022 Bacteria identified Anaer cx Nom (Unsp spec) No Anaerobes Isolated 3 Days [facility] Bacteria identified Aer cx N om (Unsp spec)Ordered By: Silvana Lundberg on 10-31-2022 Aerobic Culture Staphylococcus aureus [facility] Gram Stainon 10-31-2022 Microscopic observation Gram stain Nom (Unsp spec) Gram Stain Result No Bacteria Seen PERFORMED BY: [place] [address] PATHOLOGIST TUFTING MACHINE OPERATOR SINGLE NEEDLE JENNIFER CALDERON M.D. Normal [facility] Comment on above: Performed By: #### G S, AERC #### [address] Gram stain for investigation of transfusion reactionOrdered By: Silvana Lundberg on 10-31-2022 Microscopic observation Gram stain Nom (Unsp spec) [facility] EMG(NEURO/NI)on 10-16-2022 [facility] CBC panel Auto (Bld)on 10-06 Erythrocyte distribution width (RBC) [Ratio] 16.0 % High 11.5 - 15.0 % [facility] Hematocrit (Bld) [Volume fraction] 40.1 % 39.0 - 51.0 % [facility] Hemoglobin (Bld) [Mass/Vol] 12.3 g/dL Low 13.0 - 17.0 g/dL [facility] MCH (RBC) [Entitic mass] 31.6 pg 26.0 - 34.0 pg [facility] MCHC (RBC) [Mass/Vol] 30.7 g/dL 30.5 - 36.0 g/dL [facility] MCV (RBC) [Entitic vol] 103.1 fL High 80.0 - 100.0 fL [facility] Nucleated RBC (Bld) [#/Vol] <0.01 k/uL [facility] Platelet mean volume (Bld) [Entitic vol] 10.2 fL 9.0 - 12.7 fL [facility] Platelets (Bld) [#/Vol] 286 10*3/uL 150 - 400 k/uL [facility] RBC (Bld) [#/Vol] 3.89 10*6/uL Low 4.20 - 6.0 0 m/uL [facility] WBC (Bld) [#/Vol] 7.15 10*3/uL 3.70 - 11.00 k/uL [facility] CERULOPLASMIN BLDon 10-07-19 Ceruloplasmin [Mass/Vol] 30 mg/dL 15 - 30 mg/dL [facility] Comprehensive metabolic 2000 panelon 10-06-2022 Albumin [Mass/Vol] 3.6 g/dL Low 3.9 - 4.9 g/dL [facility] ALP [Catalytic activity/Vol] 72 U/L 38 - 113 U/L [facility] ALT [Catalytic activity/Vol] 17 U/L 10 - 54 U/L [facility] Anion gap [Moles/Vol] 9 mmol/L 9 - 18 mmol/L [facility] AST [Catalytic activity/Vol] 21 U/L 14 - 40 U/L [facility] Bilirubin [Mass/Vol] 0.2 mg/dL 0.2 - 1 .3 mg/dL [facility] Calcium [Mass/Vol] 9.5 mg/dL 8.5 - 10. 2 mg/dL [facility] Chloride [Moles/Vol] 108 mmol/L High 97 - 10 5 mmol/L [facility] CO2 [Moles/Vol] 25 mmol/L 22 - 30 mmol/L [facility] Creatinine [Mass/Vol] 1.43 mg/dL High 0.73 - 1.22 mg/dL [facility] Estimated Glomerular Filtration Rate 55 mL/min/1.73m Low >=60 mL/min/1.73 m [facility] Glucose [Mass/Vol] 100 mg/dL High 74 - 99 mg/dL [facility] Potassium [Moles/Vol] 5.4 mmol/L High 3.7 - 5.1 mmol/L [facility] Protein [Mass/Vol] 6.7 g/dL 6.3 - 8.0 g/dL [facility] Sodium [Moles/Vol] 142 mmol/L 136 - 144 mmol/L [facility] Urea nitrogen [Mass/Vol] 24 mg/dL 9 - 24 mg/dL [facility] FERRITIN BLDon 10-06-2022 Ferritin [Mass/Vol] 143.0 ng/mL 30.3 - 565.7 ng/mL [facility] FOLATE SERUMon 10-06-2022 Folate [Mass/Vol] 8.8 ng/mL >4.7 ng/mL [facility] HOMOCYSTEINEon 10-06-2022 Homocysteine [Moles/Vol] 14.7 umol/L <15.1 umol/L [facility] TSH BLDon 10-06-2022 TSH Qn 2.100 m[IU]/L 0.270 - 4.200 mIU/L [facility] VITAMIN B12 BLOODon 10-07-19 Cobalamin (Vitamin B12) [Mass/Vol] 355 pg/mL 232 - 1,245 pg/mL [facility] NM LUNG VENT / PERF VQon [facility] Telemedicineon 10-03-2022 Telemedicine [id number] Miguel Felix 1960 M Date Provider Department Center 10/03/2022 ALFREDO CORTEZ [facility] CARD [facility] HeartVAS Family History Problem Relation Age of Onset No Known Problems Mother No Known Problems Father Family Status - Relation Status Age at Mother Father Level of Service:13732 [place] OFFICE/OUTPATIENT ESTABLISHED LOW MDM 20-29 MIN Reason for Visit and Comments: Telehealth Phone Visit [872] Normal [facility] ECHOon 09-13-2022 [facility] LVEF ECHOon 09-13-2022 LV Ejection Fraction 51 % Abnormal <52 % [facility] CBC AUTO DIFFon 09-06-2022 BASO # 0.1 103/ul Normal 0.0-0.[address] [facility] Comment on above: Performed By: #### C MADM, BNP, BMP #### [facility] [address] [address] [address] Risa Patterson Basophils/100 WBC (Bld) 1.1 % Normal 0.2-2.[address] [facility] Comment on above: Performed By: #### C MADM, BNP, BMP #### [facility] [address] [address] [address] Risa Patterson EO # 0.3 103/ul Normal 0.0-0.7 [facility] Comment on above: Performed By: #### C MADM, BNP, BMP #### [facility] [address] [place] [address] Dr. Risa Patterson Eosinophils/100 WBC (Bld) 5.9 % Normal 0.9-7.[address] [facility] Comment on above: Performed By: #### C MADM, BNP, BMP #### [facility] [address] [place] [address] Dr. Risa Patterson Erythrocyte distribution width (RBC) [Ratio] 15.1 % Critically high 11.0-15.[address] [facility] Comment on above: Performed By: #### C MADM, BNP, BMP #### [facility] [address] [place] [address] Dr. Risa Patterson Hematocrit (Bld) [Volume fraction] 36.6 % Critically low 42.0-54.[address] [facility] Comment on above: Performed By: #### C MADM, BNP, BMP #### [facility] [address] [place] [address] Dr. Risa Patterson Hemoglobin (Bld) [Mass/Vol] 11.4 g/dL Critically low 14.0-18.[address] [facility] Comment on above: Performed By: #### C MADM, BNP, BMP #### [facility] [address] [place] [address] Dr. Risa Patterson IG # 0.02 10e3/ul Normal 0.00-0.03 [facility] Comment on above: Performed By: #### C MADM, BNP, BMP #### [facility] [address] [place] [address] Dr. Risa Patterson IG % 0.4 % Normal 0.0-0.5 [facility] Comment on above: Performed By: #### C MADM, BNP, BMP #### [facility] [address] [place] [address] Dr. Risa Patterson LYMPH # 0.9 103/ul Critically low 1.2-3.8 [facility] Comment on above: Performed By: #### C MADM, BNP, BMP #### [facility] [address] [place] [address] Dr. Risa Patterson Lymphocytes/100 WBC (Bld) 20.4 % Critically low 20.5-60.[address] [facility] Comment on above: Performed By: #### C MADM, BNP, BMP #### [facility] [address] [place] [address] Dr. Risa Patterson MANUAL DIFF REQ NO Normal [facility] Comment on above: Performed By: #### C MADM, BNP, BMP #### [facility] [address] [place] [address] Dr. Risa Patterson MCH (RBC) [Entitic mass] 31.1 pg Normal 25.9-34.[address] [facility] Comment on above: Performed By: #### C MADM, BNP, BMP #### [facility] [address] [place] [address] Dr. Risa Pattreson MCHC (RBC) [Mass/Vol] 31.1 g/dL Normal 29.9-35.[address] [facility] Comment on above: Performed By: #### C MADM, BNP, BMP #### [facility] [address] [place] [address] Dr. Risa Patterson MCV (RBC) [Entitic vol] 100.0 fL Critically high 80.0-94.[address] [facility] Comment on above: Performed By: #### C MADM, BNP, BMP #### [facility] [address] [place] [address] Dr. Risa Patterson MONO # 0.3 103/ul Normal 0.3-0.[address] [facility] Comment on above: Performed By: #### C MADM, BNP, BMP #### [facility] [address] [place] [address] Dr. Risa Patterson Monocytes/100 WBC (Bld) 6.6 % Normal 1.7-12.[address] [facility] Comment on above: Performed By: #### C MADM, BNP, BMP #### [facility] [address] [place] [address] Dr. Risa Patterson NEUT # 3.0 103/ul Normal 1.4-6.[address] [facility] Comment on above: Performed By: #### C MADM, BNP, BMP #### [facility] [address] [place] [address] Dr. Risa Patterson Neutrophils/100 WBC (Bld) 65.6 % Normal 43.0-75.[address] [facility] Comment on above: Performed By: #### C MADM, BNP, BMP #### [facility] [address] [place] [address] Dr. Risa Patterson Platelet mean volume (Bld) [Entitic vol] 9.1 fL Critically low 9.5-13.[address] [facility] Comment on above: Performed By: #### C MADM, BNP, BMP #### [facility] [address] [place] [address] Dr. Risa Patterson PLT 286 103/ul Normal 150-[address] [facility] Comment on above: Performed By: #### C MADM, BNP, BMP #### [facility] [address] [place] [address] Dr. Risa Patterson RBC 3.66 106/ul Critically low 4.70-6.[address] [facility] Comment on above: Performed By: #### C MADM, BNP, BMP #### [facility] [address] [place] [address] Dr. Risa Patterson WBC 4.6 103/ul Normal 4.0-11.[address] [facility] Comment on above: Performed By: #### C MADM, BNP, BMP #### [facility] [address] [place] [address] Dr. Risa Patterson PROF 14(COMP METB)on 023 Albumin [Mass/Vol] 2.9 g/dL Critically low 3.4-5.0 [facility] Comment on above: Performed By: #### C MP #### [facility] [address] [place] [address] Dr. Risa Patterson Albumin/Globulin [Mass ratio] 0.7 {ratio} Normal [facility] Comment on above: Performed By: #### C MP #### [facility] [address] [address] [address] Risa Patterson ALP [Catalytic activity/Vol] 66 U/L Normal 46-116 [facility] Comment on above: Performed By: #### C MP #### [facility] [address] [address] [address] Risa Patterson ALT [Catalytic activity/Vol] 31 U/L Normal 16-[address] [facility] Comment on above: Performed By: #### C MP #### [facility] [address] [place] [address] Dr. Risa Patterson Anion gap [Moles/Vol] 15.6 mmol/L Normal Th e [facility] Comment on above: Performed By: #### C MP #### [facility] [address] [place] [address] Dr. Risa Patterson AST [Catalytic activity/Vol] 35 U/L Normal 15-[address] [facility] Comment on above: Performed By: #### C MP #### [facility] [address] [place] [address] Dr. Risa Patterson Bilirubin [Mass/Vol] 0.4 mg/dL Normal 0.2-1.[address] [facility] Comment on above: Performed By: #### C MP #### [facility] [address] [place] [address] Dr. Risa Patterson Calcium [Mass/Vol] 8.9 mg/dL Normal 8.5-10.[address] [facility] Comment on above: Performed By: #### C MP #### [facility] [address] [place] [address] Dr. Risa Patterson Chloride [Moles/Vol] 105 mmol/L Normal 98-107 [facility] Comment on above: Performed By: #### C MP #### [facility] [address] [place] [address] Dr. Risa Patterson CO2 [Moles/Vol] 24.5 mmol/L Normal 21.0-32.0 [facility] Comment on above: Performed By: #### C MP #### [facility] [address] [place] [address] Dr. Risa Patterson Creatinine [Mass/Vol] 1.35 mg/dL Critically high 0.70-1.[address] [facility] Comment on above: Performed By: #### C MP #### [facility] [address] [place] [address] Dr. Risa Patterson EGFR-AF MICRONESIAN >60 Normal >=[address] [facility] Comment on above: Performed By: #### C MP #### [facility] [address] [address] [address] Risa Patterson EGFR-NON AF MICRONESIAN 54 mL/min/1.73m2 Critically low >=[address] [facility] Comment on above: Performed By: #### C MP #### [facility] [address] [place] [address] Dr. Risa Patterson Globulin (S) [Mass/Vol] 4.3 g/dL Normal [facility] Comment on above: Performed By: #### C MP #### [facility] [address] [place] [address] Dr. Risa Patterson Glucose [Mass/Vol] 107 mg/dL Critically high 74-106 [facility] Comment on above: Performed By: #### C MP #### [facility] [address] [place] [address] Dr. Risa Patterson Potassium [Moles/Vol] 4.1 mmol/L Normal 3.5-5.[address] [facility] Comment on above: Performed By: #### C MP #### [facility] [address] [place] [address] Dr. Risa Patterson Protein [Mass/Vol] 7.2 g/dL Normal 6.4-8.2 [facility] Comment on above: Performed By: #### C MP #### [facility] [address] [place] [address] Dr. Risa Patterson Sodium [Moles/Vol] 141 mmol/L Normal 136-[address] [facility] Comment on above: Performed By: #### C MP #### [facility] [address] [address] [address] Risa Patterson Urea nitrogen [Mass/Vol] 19.0 mg/dL Critically high 7.0-18.[address] [facility] Comment on above: Performed By: #### C MP #### [facility] [address] [address] [address] Risa Patterson Urea nitrogen/Creatinine [Mass ratio] 14.1 mg/mg Normal [facility] Comment on above: Performed By: #### C MP #### [facility] [address] [address] [address] Risa Patterson SED RATE WESTERGRENon 2022 SED RATE 57 mm/hr Critically high <=[address] [facility] Comment on above: Performed By: #### S EDR #### [facility] [address] [place] [address] Dr. Risa Patterson ECG COMPLETEon 08-16-2022 Atrial Rate 83 BPM [facility] Calculated P Ledger 27 degrees [facility] Calculated R Ledger 14 degrees [facility] Calculated T Ledger 38 degrees [facility] P-R Interval 158 ms [facility] QRS Duration 86 ms [facility] QT Interval 350 ms [facility] QTC Calculation (Bazett) 411 ms [facility] Ventricular Rate 83 BPM [facility] Office Visiton 08-10-2022 Follow-up visit [id number] Isidro,Miguel Jolley 1960 M Date Provider Department Center 08/10/2022 Becka-MARIA TERESA BA [facility] Family History Problem Relation Age of Onset No Known Problems Mother No Known Problems Father Family Status - Relation Status Age at Mother Father Level of Service:28224 ND OFFICE/OUTPATIENT ESTABLISHED MOD MDM 30-39 MIN Normal [facility] TILT TABLE TESTon 08-01-2022 TILT TABLE TEST [address] [id number] TILT TABLE TEST PATIENT NAME: ELENA FELIX : 1960 MED REC NO: [id number] ROOM: ACCOUNT NO: [id number] ADMIT DATE: 07/31/2022 PROVIDER: Santos Barrios MD Cardiovascular Diagnostics Department DATE OF PROCEDURE: 07/31/2022 ORDERING PROVIDER: Carlos Krishna APRN-INDUSTRIAL HYGIENE MANAGER PRIMARY CARE PROVIDER: Silvana Lundberg MD INTERPRETING [...] up with their primary care physician and/or medical technologist blood bank as previously scheduled. STUDY CONCLUSIONS: Abnormal head [...] BARRIOS MD BRANDON/OSMIN Doc#: Unknown CC: Silvana Krishna Normal [facility] Office Visiton 07-12-2022 Follow-up visit [id number] Miguel Felix 1960 [facility] Provider Department Center 07/12/[address] [facility] Family History Problem Relation Age of Onset No Known Problems Mother No Known Problems Father Family Status - Relation Status Age at Mother Father Level of Service:06645 ND OFFICE/OUTPATIENT ESTABLISHED MOD MDM 30-39 MIN Reason for Visit and Comments: Congestive Heart Failure [127] Hypertension [650726] POTS [Other] Normal [facility] 36on 07-05-2022 36 Per Ted from [facility] car diac rehab, patient is very orthostatic and is very dizzy. It's very hard for him to ride the bikes at cardiac rehab due to dizziness. Can he cut the metoprolol? Normal [facility] Documentationon 07-05-2022 Documentation [id number] Miguel Felix 1960 [facility] Provider Department Center 07/05/2022 MARIA TERESA BARNEY Marcellalani Medina Family History Problem Relation Age of Onset No Known Problems Mother No Known Problems Father Family Status - Relation Status Age at Mother Father Reason for Visit and Comments: POTS [Other] [facility] Orders Onlyon 07-05-2022 Orders Only [id number] Miguel Felix 1960 [facility] Provider Department Center 07/05/2022 MARIA TERESA BARNEY Marcellalani Medina Family History Problem Relation Age of Onset No Known Problems Mother No Known Problems Father Family Status - Relation Status Age at Mother Father Normal [facility] CBC AUTO DIFFon 07-04-2022 BASO # 0.1 103/ul Normal 0.0-0.[address] [facility] Comment on above: Performed By: #### C MADM, BNP, BMP #### [facility] [address] [address] [address] Risa Patterson Basophils/100 WBC (Bld) 0.8 % Normal 0.2-2.[address] [facility] Comment on above: Performed By: #### C MADM, BNP, BMP #### [facility] [address] [place] [address] Dr. Risa Patterson EO # 0.3 103/ul Normal 0.0-0.[address] [facility] Comment on above: Performed By: #### C MADM, BNP, BMP #### [facility] [address] [place] [address] Dr. Risa Patterson Eosinophils/100 WBC (Bld) 4.0 % Normal 0.9-7.[address] [facility] Comment on above: Performed By: #### C MADM, BNP, BMP #### [facility] [address] [place] [address] Dr. Risa Patterson Erythrocyte distribution width (RBC) [Ratio] 15.8 % Critically high 11.0-15.[address] [facility] Comment on above: Performed By: #### C MADM, BNP, BMP #### [facility] [address] [place] [address] Dr. Risa Patterson Hematocrit (Bld) [Volume fraction] 37.3 % Critically low 42.0-54.[address] [facility] Comment on above: Performed By: #### C MADM, BNP, BMP #### [facility] [address] [place] [address] Dr. Risa Patterson Hemoglobin (Bld) [Mass/Vol] 11.7 g/dL Critically low 14.0-18.[address] [facility] Comment on above: Performed By: #### C MADM, BNP, BMP #### [facility] [address] [place] [address] Dr. Risa Patterson IG # 0.04 10e3/ul Critically high 0.00-0.[address] [facility] Comment on above: Performed By: #### C MADM, BNP, BMP #### [facility] [address] [place] [address] Dr. Risa Patterson IG % 0.5 % Normal 0.0-0.[address] [facility] Comment on above: Performed By: #### C MADM, BNP, BMP #### [facility] [address] [place] [address] Dr. Risa Patterson LYMPH # 1.0 103/ul Critically low 1.2-3.8 [facility] Comment on above: Performed By: #### C MADM, BNP, BMP #### [facility] [address] [place] [address] Dr. Risa Patterson Lymphocytes/100 WBC (Bld) 13.1 % Critically low 20.5-60.0 [facility] Comment on above: Performed By: #### C MADM, BNP, BMP #### [facility] [address] [place] [address] Dr. Risa Patterson MANUAL DIFF REQ NO Normal [facility] Comment on above: Performed By: #### C MADM, BNP, BMP #### [facility] [address] [place] [address] Dr. Risa Patterson MCH (RBC) [Entitic mass] 31.3 pg Normal 25.9-34.0 [facility] Comment on above: Performed By: #### C MADM, BNP, BMP #### [facility] [address] [place] [address] Dr. Risa Patterson MCHC (RBC) [Mass/Vol] 31.4 g/dL Normal 29.9-35.2 [facility] Comment on above: Performed By: #### C MADM, BNP, BMP #### [facility] [address] [place] [address] Dr. Risa Patterson MCV (RBC) [Entitic vol] 99.7 fL Critically high 80.0-94.0 [facility] Comment on above: Performed By: #### C MADM, BNP, BMP #### [facility] [address] [place] [address] Dr. Risa Patterson MONO # 0.9 103/ul Critically high 0.3-0.8 [facility] Comment on above: Performed By: #### C MADM, BNP, BMP #### [facility] [address] [place] [address] Dr. Risa Patterson Monocytes/100 WBC (Bld) 12.3 % Critically high 1.7-12.0 [facility] Comment on above: Performed By: #### C MADM, BNP, BMP #### [facility] [address] [address] [address] Risa Patterson NEUT # 5.2 103/ul Normal 1.4-6.[address] [facility] Comment on above: Performed By: #### C MADM, BNP, BMP #### [facility] [address] [address] [address] Risa Patterson Neutrophils/100 WBC (Bld) 69.3 % Normal 43.0-75.[address] [facility] Comment on above: Performed By: #### C MADM, BNP, BMP #### [facility] [address] [place] [address] Dr. Risa Patterson Platelet mean volume (Bld) [Entitic vol] 9.3 fL Critically low 9.5-13.[address] [facility] Comment on above: Performed By: #### C MADM, BNP, BMP #### [facility] [address] [place] [address] Dr. Risa Patterson PLT 244 103/ul Normal 150-[address] [facility] Comment on above: Performed By: #### C MADM, BNP, BMP #### [facility] [address] [place] [address] Dr. Risa Patterson RBC 3.74 106/ul Critically low 4.70-6.[address] [facility] Comment on above: Performed By: #### C MADM, BNP, BMP #### [facility] [address] [place] [address] Dr. Risa Patterson WBC 7.5 103/ul Normal 4.0-11.0 [facility] Comment on above: Performed By: #### C MADM, BNP, BMP #### [facility] [address] [place] [address] Dr. Risa Patterson ECHOCARDIO M/2D COMPLETEon 0 07-04-2022 ECHOCARDIO M/2D COMPLETE Patient: ELENA FELIX Exam Date: 07/04/2022 : 1960 Gender:M Ordering : NIKKIE TREJO Admission #: [id number] Family : DR BRAD HODGES M.D. Order #: [id number] CLICK HERE TO VIEW EXAM ECHOCARDIOGRAM REPORT [...] Hernandez M.D. on 07/04/2022 at 12:[address] [facility] PROF 14(COMP METB)on 023 Albumin [Mass/Vol] 2.9 g/dL Critically low 3.4-5.[address] [facility] Comment on above: Performed By: #### C MP #### [facility] [address] [address] [address] Risa Patterson Albumin/Globulin [Mass ratio] 0.8 {ratio} Normal [facility] Comment on above: Performed By: #### C MP #### [facility] [address] [place], [place] [address] Dr. Risa Patterson ALP [Catalytic activity/Vol] 62 U/L Normal 46-116 [facility] Comment on above: Performed By: #### C MP #### [facility] [address] [address] [address] Risa Patterson ALT [Catalytic activity/Vol] 30 U/L Normal 16-[address] [facility] Comment on above: Performed By: #### C MP #### [facility] [address] [address] [address] Risa Patterson Anion gap [Moles/Vol] 9.3 mmol/L Normal [facility] Comment on above: Performed By: #### C MP #### [facility] [address] [address] [address] Risa Patterson AST [Catalytic activity/Vol] 25 U/L Normal 15-[address] [facility] Comment on above: Performed By: #### C MP #### [facility] [address] [place] [address] Dr. Risa Patterson Bilirubin [Mass/Vol] 0.4 mg/dL Normal 0.2-1.[address] [facility] Comment on above: Performed By: #### C MP #### [facility] [address] [address] [address] Risa Patterson Calcium [Mass/Vol] 8.8 mg/dL Normal 8.5-10.1 [facility] Comment on above: Performed By: #### C MP #### [facility] [address] [address] [address] Risa Patterson Chloride [Moles/Vol] 108 mmol/L Critically high 98-107 [facility] Comment on above: Performed By: #### C MP #### [facility] [address] [address] [address] Risa Patterson CO2 [Moles/Vol] 29.8 mmol/L Normal 21.0-32.0 [facility] Comment on above: Performed By: #### C MP #### [facility] [address] [address] [address] Risa Patterson Creatinine [Mass/Vol] 1.26 mg/dL Normal 0.70-1.30 [facility] Comment on above: Performed By: #### C MP #### [facility] [address] [address] [address] Risa Patterson EGFR-AF MICRONESIAN >60 Normal >=[address] [facility] Comment on above: Performed By: #### C MP #### [facility] [address] [address] [address] Risa Patterson EGFR-NON AF MICRONESIAN 58 mL/min/1.73m2 Critically low >=60 [facility] Comment on above: Performed By: #### C MP #### [facility] [address] [address] [address] Risa Patterson Globulin (S) [Mass/Vol] 3.6 g/dL Normal [facility] Comment on above: Performed By: #### C MP #### [facility] [address] [address] [address] Risa Patterson Glucose [Mass/Vol] 114 mg/dL Critically high 74-106 [facility] Comment on above: Performed By: #### C MP #### [facility] [address] [address] [address] Risa Patterson Potassium [Moles/Vol] 4.1 mmol/L Normal 3.5-5.[address] [facility] Comment on above: Performed By: #### C MP #### [facility] [address] [address] [address] Risa Patterson Protein [Mass/Vol] 6.5 g/dL Normal 6.4-8.[address] [facility] Comment on above: Performed By: #### C MP #### [facility] [address] [address] [address] Risa Patterson Sodium [Moles/Vol] 143 mmol/L Normal 136-[address] [facility] Comment on above: Performed By: #### C MP #### [facility] [address] [address] [address] Risa Patterson Urea nitrogen [Mass/Vol] 20.0 mg/dL Critically high 7.0-18.[address] [facility] Comment on above: Performed By: #### C MP #### [facility] [address] [place] [address] Dr. Risa Patterson Urea nitrogen/Creatinine [Mass ratio] 15.9 mg/mg Normal [facility] Comment on above: Performed By: #### C MP #### [facility] [address] [place] [address] Dr. Risa Patterson SED RATE WESTERGRENon 2022 SED RATE 26 mm/hr Critically high <=20 [facility] Comment on above: Performed By: #### C MADM, BNP, BMP #### [facility] [address] [place] [address] Dr. Risa Patterson BNPon 06-26-2022 Natriuretic peptide B (Bld) [Mass/Vol] 82.0 pg/mL Normal <=900.0 [facility] Comment on above: Performed By: #### C MREP #### [facility] [address] [place] [address] Dr. Risa Patterson CBC AUTO DIFFon 06-26-2022 BASO # 0.1 103/ul Normal 0.0-0.[address] [facility] Comment on above: Performed By: #### C MREP #### [facility] [address] [place] [address] Dr. Risa Patterson Basophils/100 WBC (Bld) 0.7 % Normal 0.2-2.[address] [facility] Comment on above: Performed By: #### C MREP #### [facility] [address] [place] [address] Dr. Risa Patterson EO # 0.4 103/ul Normal 0.0-0.7 [facility] Comment on above: Performed By: #### C MREP #### [facility] [address] [place] [address] Dr. Risa Patterson Eosinophils/100 WBC (Bld) 3.9 % Normal 0.9-7.0 [facility] Comment on above: Performed By: #### C MREP #### [facility] [address] [place] [address] Dr. Risa Patterson Erythrocyte distribution width (RBC) [Ratio] 15.0 % Normal 11.0-15.0 [facility] Comment on above: Performed By: #### C MREP #### [facility] [address] [place] [address] Dr. Risa Patterson Hematocrit (Bld) [Volume fraction] 39.1 % Critically low 42.0-54.[address] [facility] Comment on above: Performed By: #### C MREP #### [facility] [address] [place] [address] Dr. Risa Patterson Hemoglobin (Bld) [Mass/Vol] 12.3 g/dL Critically low 14.0-18.[address] [facility] Comment on above: Performed By: #### C MREP #### [facility] [address] [place] [address] Dr. Risa Patterson IG # 0.07 10e3/ul Critically high 0.00-0.[address] [facility] Comment on above: Performed By: #### C MREP #### [facility] [address] [place] [address] Dr. Risa Patterson IG % 0.8 % Critically high 0.0-0.[address] [facility] Comment on above: Performed By: #### C MREP #### [facility] [address] [place] [address] Dr. Risa Patterson LYMPH # 1.0 103/ul Critically low 1.2-3.[address] [facility] Comment on above: Performed By: #### C MREP #### [facility] [address] [place] [address] Dr. Risa Patterson Lymphocytes/100 WBC (Bld) 11.3 % Critically low 20.5-60.[address] [facility] Comment on above: Performed By: #### C MREP #### [facility] [address] [place] [address] Dr. Risa Patterson MANUAL DIFF REQ NO Normal [facility] Comment on above: Performed By: #### C MREP #### [facility] [address] [place] [address] Dr. Risa Patterson MCH (RBC) [Entitic mass] 30.9 pg Normal 25.9-34.[address] [facility] Comment on above: Performed By: #### C MREP #### [facility] [address] [address] [address] Risa Patterson MCHC (RBC) [Mass/Vol] 31.5 g/dL Normal 29.9-35.2 [facility] Comment on above: Performed By: #### C MREP #### [facility] [address] [address] [address] Risa Patterson MCV (RBC) [Entitic vol] 98.2 fL Critically high 80.0-94.[address] [facility] Comment on above: Performed By: #### C MREP #### [facility] [address] [address] [address] Risa Patterson MONO # 1.1 103/ul Critically high 0.3-0.[address] [facility] Comment on above: Performed By: #### C MREP #### [facility] [address] [place] [address] Dr. Risa Patterson Monocytes/100 WBC (Bld) 12.1 % Critically high 1.7-12.[address] [facility] Comment on above: Performed By: #### C MREP #### [facility] [address] [place] [address] Dr. Risa Patterson NEUT # 6.4 103/ul Normal 1.4-6.5 [facility] Comment on above: Performed By: #### C MREP #### [facility] [address] [place] [address] Dr. Risa Patterson Neutrophils/100 WBC (Bld) 71.2 % Normal 43.0-75.0 [facility] Comment on above: Performed By: #### C MREP #### [facility] [address] [place] [address] Dr. Risa Patterson Platelet mean volume (Bld) [Entitic vol] 9.2 fL Critically low 9.5-13.5 [facility] Comment on above: Performed By: #### C MREP #### [facility] [address] [place] [address] Dr. Risa Patterson PLT 285 103/ul Normal 150-450 [facility] Comment on above: Performed By: #### C MREP #### [facility] [address] [address] [address] Risa Patterson RBC 3.98 106/ul Critically low 4.70-6.[address] [facility] Comment on above: Performed By: #### C MREP #### [facility] [address] [address] [address] Risa Patterson WBC 9.0 103/ul Normal 4.0-11.[address] [facility] Comment on above: Performed By: #### C MREP #### [facility] [address] [address] [address] Risa Patterson Orders Onlyon 06-26-2022 Orders Only [id number] Miguel Felix 1960 M Date Provider Department Center 06/26/2022 RashaadMELQUIADES ZURITA [facility] Family History Problem Relation Age of Onset No Known Problems Mother No Known Problems Father Family Status - Relation Status Age at Mother Father Normal [facility] PROF CHEM 8 (BAS METB)on Anion gap [Moles/Vol] 12.3 mmol/L Normal [facility] Comment on above: Performed By: #### C MREP #### [facility] [address] [place] [address] Dr. Risa Patterson Calcium [Mass/Vol] 9.3 mg/dL Normal 8.5-10.[address] [facility] Comment on above: Performed By: #### C MREP #### [facility] [address] [place] [address] Dr. Risa Patterson Chloride [Moles/Vol] 106 mmol/L Normal 98-[address] [facility] Comment on above: Performed By: #### C MREP #### [facility] [address] [place] [address] Dr. Risa Patterson CO2 [Moles/Vol] 29.2 mmol/L Normal 21.0-32.[address] [facility] Comment on above: Performed By: #### C MREP #### [facility] [address] [place] [address] Dr. Rias Patterson Creatinine [Mass/Vol] 1.40 mg/dL Critically high 0.70-1.[address] [facility] Comment on above: Performed By: #### C MREP #### [facility] [address] [place] [address] Dr. Risa Patterson EGFR-AF MICRONESIAN >60 Normal >=[address] [facility] Comment on above: Performed By: #### C MREP #### [facility] [address] [place] [address] Dr. Risa Patterson EGFR-NON AF MICRONESIAN 52 mL/min/1.73m2 Critically low >=[address] [facility] Comment on above: Performed By: #### C MREP #### [facility] [address] [place] [address] Dr. Risa Patterson Glucose [Mass/Vol] 107 mg/dL Critically high 74-106 [facility] Comment on above: Performed By: #### C MREP #### [facility] [address] [place] [address] Dr. Risa Patterson Potassium [Moles/Vol] 4.5 mmol/L Normal 3.5-5.[address] [facility] Comment on above: Performed By: #### C MREP #### [facility] [address] [place] [address] Dr. Risa Patterson Sodium [Moles/Vol] 143 mmol/L Normal 136-[address] [facility] Comment on above: Performed By: #### C MREP #### [facility] [address] [place] [address] Dr. Risa Patterson Urea nitrogen [Mass/Vol] 20.0 mg/dL Critically high 7.0-18.[address] [facility] Comment on above: Performed By: #### C MREP #### [facility] [address] [place] [address] Dr. Risa Patterson Urea nitrogen/Creatinine [Mass ratio] 14.3 mg/mg Normal [facility] Comment on above: Performed By: #### C MREP #### [facility] [address] [place] [address] Dr. Risa Patterson Office Visiton 05-31-2022 Follow-up visit [id number] Miguel Felix 1960 M Date Provider Department Center 05/31/2022 3848-NIKKIE TREJO [facility] Family History Problem Relation Age of Onset No Known Problems Mother No Known Problems Father Family Status - Relation Status Age at Mother Father Level of Service:51460 ND OFFICE/OUTPATIENT ESTABLISHED MOD MDM 30-39 MIN Reason for Visit and Comments: Congestive Heart Failure [127] Hyperlipidemia [182] DVT [Other] Normal [facility] CT CHEST HI RESOLUTIONon CT CHEST HI [...] ASHER SOLANO Date: 2022-04-25 11:06 Normal [facility] HEMOGLOBINon 04-10-2022 Hemoglobin (Bld) [Mass/Vol] 11.9 g/dL Critically low 14.0-18.0 [facility] Comment on above: Performed By: #### C MADM, BNP, BMP #### [facility] [address] [address] [address] Risa Patterson CBC AUTO DIFFon 04-03-2022 BASO # 0.0 103/ul Normal 0.0-0.[address] [facility] Comment on above: Performed By: #### C MADM, BNP, BMP #### [facility] [address] [place] [address] Dr. Risa Patterson Basophils/100 WBC (Bld) 0.5 % Normal 0.2-2.[address] [facility] Comment on above: Performed By: #### C MADM, BNP, BMP #### [facility] [address] [place] [address] Dr. Risa Patterson EO # 0.3 103/ul Normal 0.0-0.7 [facility] [facility] Comment on above: Performed By: #### C MADM, BNP, BMP #### [facility] [address] [place] [address] Dr. Risa Patterson Eosinophils/100 WBC (Bld) 5.3 % Normal 0.9-7.[address] [facility] Comment on above: Performed By: #### C MADM, BNP, BMP #### [facility] [address] [place] [address] Dr. Risa Patterson Erythrocyte distribution width (RBC) [Ratio] 16.3 % Critically high 11.0-15.[address] [facility] Comment on above: Performed By: #### C MADM, BNP, BMP #### [facility] [address] [place] [address] Dr. Risa Patterson Hematocrit (Bld) [Volume fraction] 38.4 % Critically low 42.0-54.0 [facility] Comment on above: Performed By: #### C MADM, BNP, BMP #### [facility] [address] [place] [address] Dr. Risa Patterson Hemoglobin (Bld) [Mass/Vol] 12.0 g/dL Critically low 14.0-18.0 [facility] Comment on above: Performed By: #### C MADM, BNP, BMP #### [facility] [address] [place] [address] Dr. Risa Patterson IG # 0.04 10e3/ul Critically high 0.00-0.03 [facility] Comment on above: Performed By: #### C MADM, BNP, BMP #### [facility] [address] [place] [address] Dr. Risa Patterson IG % 0.7 % Critically high 0.0-0.[address] [facility] Comment on above: Performed By: #### C MADM, BNP, BMP #### [facility] [address] [place] [address] Dr. Risa Patterson LYMPH # 1.1 103/ul Critically low 1.2-3.[address] [facility] Comment on above: Performed By: #### C MADM, BNP, BMP #### [facility] [address] [place] [address] Dr. Risa Patterson Lymphocytes/100 WBC (Bld) 18.7 % Critically low 20.5-60.[address] [facility] Comment on above: Performed By: #### C MADM, BNP, BMP #### [facility] [address] [place] [address] Dr. Risa Patterson MANUAL DIFF REQ NO Normal [facility] Comment on above: Performed By: #### C MADM, BNP, BMP #### [facility] [address] [place] [address] Dr. Risa Patterson MCH (RBC) [Entitic mass] 31.3 pg Normal 25.9-34.[address] [facility] Comment on above: Performed By: #### C MADM, BNP, BMP #### [facility] [address] [place] [address] Dr. Risa Patterson MCHC (RBC) [Mass/Vol] 31.3 g/dL Normal 29.9-35.[address] [facility] Comment on above: Performed By: #### C MADM, BNP, BMP #### [facility] [address] [place] [address] Dr. Risa Patterson MCV (RBC) [Entitic vol] 100.0 fL Critically high 80.0-94.[address] [facility] Comment on above: Performed By: #### C MADM, BNP, BMP #### [facility] [address] [place] [address] Dr. Risa Patterson MONO # 0.8 103/ul Normal 0.3-0.8 [facility] Comment on above: Performed By: #### C MADM, BNP, BMP #### [facility] [address] [place] [address] Dr. Risa Patterson Monocytes/100 WBC (Bld) 13.7 % Critically high 1.7-12.0 [facility] Comment on above: Performed By: #### C MADM, BNP, BMP #### [facility] [address] [place] [address] Dr. Risa Patterson NEUT # 3.7 103/ul Normal 1.4-6.5 [facility] Comment on above: Performed By: #### C MADM, BNP, BMP #### [facility] [address] [place] [address] Dr. Risa Patterson Neutrophils/100 WBC (Bld) 61.1 % Normal 43.0-75.0 [facility] Comment on above: Performed By: #### C MADM, BNP, BMP #### [facility] [address] [place] [address] Dr. Risa Patterson Platelet mean volume (Bld) [Entitic vol] 9.5 fL Normal 9.5-13.5 [facility] Comment on above: Performed By: #### C MADM, BNP, BMP #### [facility] [address] [place] [address] Dr. Risa Patterson PLT 218 103/ul Normal 150-450 [facility] Comment on above: Performed By: #### C MADM, BNP, BMP #### [facility] [address] [place] [address] Dr. Risa Patterson RBC 3.84 106/ul Critically low 4.70-6.10 [facility] Comment on above: Performed By: #### C MADM, BNP, BMP #### [facility] [address] [place] [address] Dr. Risa Patterson WBC 6.0 103/ul Normal 4.0-11.0 [facility] Comment on above: Performed By: #### C MADM, BNP, BMP #### [facility] [address] [address] [address] Risa Patterson PROF 14(COMP METB)on 022 Albumin [Mass/Vol] 2.9 g/dL Critically low 3.4-5.0 [facility] Comment on above: Performed By: #### C MADM, BNP, BMP #### [facility] [address] [address] [address] Risa Patterson Albumin/Globulin [Mass ratio] 0.7 {ratio} Normal [facility] Comment on above: Performed By: #### C MADM, BNP, BMP #### [facility] [address] [address] [address] Risa Patterson ALP [Catalytic activity/Vol] 66 U/L Normal 46-[address] [facility] Comment on above: Performed By: #### C MADM, BNP, BMP #### [facility] [address] [address] [address] Risa Patterson ALT [Catalytic activity/Vol] 33 U/L Normal 16-[address] [facility] Comment on above: Performed By: #### C MADM, BNP, BMP #### [facility] [address] [address] [address] Risa Patterson Anion gap [Moles/Vol] 10.7 mmol/L Normal [facility] Comment on above: Performed By: #### C MADM, BNP, BMP #### [facility] [address] [address] [address] Risa Patterson AST [Catalytic activity/Vol] 24 U/L Normal 15-[address] [facility] Comment on above: Performed By: #### C MADM, BNP, BMP #### [facility] [address] [address] [address] Risa Patterson Bilirubin [Mass/Vol] 0.3 mg/dL Normal 0.2-1.[address] [facility] Comment on above: Performed By: #### C MADM, BNP, BMP #### [facility] [address] [address] [address] Risa Patterson Calcium [Mass/Vol] 9.0 mg/dL Normal 8.5-10.[address] [facility] Comment on above: Performed By: #### C MADM, BNP, BMP #### [facility] [address] [place] [address] Dr. Risa Patterson Chloride [Moles/Vol] 106 mmol/L Normal 98-[address] [facility] Comment on above: Performed By: #### C MADM, BNP, BMP #### [facility] [address] [place] [address] Dr. Risa Patterson CO2 [Moles/Vol] 31.7 mmol/L Normal 21.0-32.[address] [facility] Comment on above: Performed By: #### C MADM, BNP, BMP #### [facility] [address] [place] [address] Dr. Risa Patterson Creatinine [Mass/Vol] 1.18 mg/dL Normal 0.70-1.[address] [facility] Comment on above: Performed By: #### C MADM, BNP, BMP #### [facility] [address] [place] [address] Dr. Risa Patterson EGFR-AF MICRONESIAN >60 Normal >=[address] [facility] Comment on above: Performed By: #### C MADM, BNP, BMP #### [facility] [address] [place] [address] Dr. Risa Patterson EGFR-NON AF MICRONESIAN >60 Normal >=[address] [facility] Comment on above: Performed By: #### C MADM, BNP, BMP #### [facility] [address] [place] [address] Dr. Risa Patterson Globulin (S) [Mass/Vol] 3.9 g/dL Normal [facility] Comment on above: Performed By: #### C MADM, BNP, BMP #### [facility] [address] [place] [address] Dr. Risa Patterson Glucose [Mass/Vol] 99 mg/dL Normal 74-[address] [facility] Comment on above: Performed By: #### C MADM, BNP, BMP #### [facility] [address] [place] [address] Dr. Risa Patterson Potassium [Moles/Vol] 4.4 mmol/L Normal 3.5-5.[address] [facility] Comment on above: Performed By: #### C MADM, BNP, BMP #### [facility] [address] [place] [address] Dr. Risa Patterson Protein [Mass/Vol] 6.8 g/dL Normal 6.4-8.[address] [facility] Comment on above: Performed By: #### C MADM, BNP, BMP #### [facility] [address] [place] [address] Dr. Risa Patterson Sodium [Moles/Vol] 144 mmol/L Normal 136-[address] [facility] Comment on above: Performed By: #### C MADM, BNP, BMP #### [facility] [address] [place] [address] Dr. Risa Patterson Urea nitrogen [Mass/Vol] 17.0 mg/dL Normal 7.0-18.[address] [facility] Comment on above: Performed By: #### C MADM, BNP, BMP #### [facility] [address] [place] [address] Dr. Risa Patterson Urea nitrogen/Creatinine [Mass ratio] 14.4 mg/mg Normal [facility] Comment on above: Performed By: #### C MADM, BNP, BMP #### [facility] [address] [place] [address] Dr. Risa Patterson SED RATE [facility] 2021 SED RATE 66 mm/hr Critically high <=20 [facility] Comment on above: Performed By: #### C MADM, BNP, BMP #### [facility] [address] [place] [address] Dr. Risa Patterson CBC AUTO DIFFon 01-02-2022 BASO # 0.1 103/ul Normal 0.0-0.[address] [facility] Comment on above: Performed By: #### C MADM, BNP, BMP #### [facility] [address] [place] [address] Dr. Risa Patterson Basophils/100 WBC (Bld) 1.1 % Normal 0.2-2.[address] [facility] Comment on above: Performed By: #### C MADM, BNP, BMP #### [facility] [address] [place] [address] Dr. Risa Patterson EO # 0.3 103/ul Normal 0.0-0.7 [facility] Comment on above: Performed By: #### C MADM, BNP, BMP #### [facility] [address] [place] [address] Dr. Risa Patterson Eosinophils/100 WBC (Bld) 7.1 % Critically high 0.9-7.[address] [facility] Comment on above: Performed By: #### C MADM, BNP, BMP #### [facility] [address] [place] [address] Dr. Risa Patterson Erythrocyte distribution width (RBC) [Ratio] 17.2 % Critically high 11.0-15.[address] [facility] Comment on above: Performed By: #### C MADM, BNP, BMP #### [facility] [address] [place] [address] Dr. Risa Patterson Hematocrit (Bld) [Volume fraction] 34.0 % Critically low 42.0-54.[address] [facility] Comment on above: Performed By: #### C MADM, BNP, BMP #### [facility] [address] [place] [address] Dr. Risa Patterson Hemoglobin (Bld) [Mass/Vol] 10.6 g/dL Critically low 14.0-18.[address] [facility] Comment on above: Performed By: #### C MADM, BNP, BMP #### [facility] [address] [place] [address] Dr. Risa Patterson IG # 0.02 10e3/ul Normal 0.00-0.03 [facility] Comment on above: Performed By: #### C MADM, BNP, BMP #### [facility] [address] [place] [address] Dr. Risa Patterson IG % 0.4 % Normal 0.0-0.[address] [facility] Comment on above: Performed By: #### C MADM, BNP, BMP #### [facility] [address] [place] [address] Dr. Risa Patterson LYMPH # 1.0 103/ul Critically low 1.2-3.8 [facility] Comment on above: Performed By: #### C MADM, BNP, BMP #### [facility] [address] [place] [address] Dr. Risa Patterson Lymphocytes/100 WBC (Bld) 22.9 % Normal 20.5-60.0 [facility] Comment on above: Performed By: #### C MADM, BNP, BMP #### [facility] [address] [place] [address] Dr. Risa Patterson MANUAL DIFF REQ NO Normal [facility] Comment on above: Performed By: #### C MADM, BNP, BMP #### [facility] [address] [place] [address] Dr. Risa Patterson MCH (RBC) [Entitic mass] 31.2 pg Normal 25.9-34.0 [facility] Comment on above: Performed By: #### C MADM, BNP, BMP #### [facility] [address] [place] [address] Dr. Risa Patterson MCHC (RBC) [Mass/Vol] 31.2 g/dL Normal 29.9-35.2 [facility] Comment on above: Performed By: #### C MADM, BNP, BMP #### [facility] [address] [place] [address] Dr. Risa Patterson MCV (RBC) [Entitic vol] 100.0 fL Critically high 80.0-94.0 [facility] Comment on above: Performed By: #### C MADM, BNP, BMP #### [facility] [address] [place] [address] Dr. Risa Patterson MONO # 0.8 103/ul Normal 0.3-0.8 [facility] Comment on above: Performed By: #### C MADM, BNP, BMP #### [facility] [address] [place] [address] Dr. Risa Patterson Monocytes/100 WBC (Bld) 18.7 % Critically high 1.7-12.0 [facility] Comment on above: Performed By: #### C MADM, BNP, BMP #### [facility] [address] [address] [address] Risa Patterson NEUT # 2.2 103/ul Normal 1.4-6.[address] [facility] Comment on above: Performed By: #### C MADM, BNP, BMP #### [facility] [address] [place] [address] Dr. Risa Patterson Neutrophils/100 WBC (Bld) 49.8 % Normal 43.0-75.[address] [facility] Comment on above: Performed By: #### C MADM, BNP, BMP #### [facility] [address] [place] [address] Dr. Risa Patterson Platelet mean volume (Bld) [Entitic vol] 10.0 fL Normal 9.5-13.[address] [facility] Comment on above: Performed By: #### C MADM, BNP, BMP #### [facility] [address] [place] [address] Dr. Risa Patterson PLT 232 103/ul Normal 150-[address] [facility] Comment on above: Performed By: #### C MADM, BNP, BMP #### [facility] [address] [place] [address] Dr. Risa Patterson RBC 3.40 106/ul Critically low 4.70-6.[address] [facility] Comment on above: Performed By: #### C MADM, BNP, BMP #### [facility] [address] [place] [address] Dr. Risa Patterson WBC 4.5 103/ul Normal 4.0-11.[address] [facility] Comment on above: Performed By: #### C MADM, BNP, BMP #### [facility] [address] [place] [address] Dr. Risa Patterson PROF 14(COMP METB)on 022 Albumin [Mass/Vol] 2.8 g/dL Critically low 3.4-5.[address] [facility] Comment on above: Performed By: #### C MREP #### [facility] [address] [place] [address] Dr. Risa Patterson Albumin/Globulin [Mass ratio] 0.8 {ratio} Normal [facility] Comment on above: Performed By: #### C MREP #### [facility] [address] [place] [address] Dr. Risa Patterson ALP [Catalytic activity/Vol] 63 U/L Normal 46-[address] [facility] Comment on above: Performed By: #### C MREP #### [facility] [address] [place] [address] Dr. Risa Patterson ALT [Catalytic activity/Vol] 29 U/L Normal 16-[address] [facility] Comment on above: Performed By: #### C MREP #### [facility] [address] [place] [address] Dr. Risa Patterson Anion gap [Moles/Vol] 10.7 mmol/L Normal [facility] Comment on above: Performed By: #### C MREP #### [facility] [address] [place] [address] Dr. Risa Patterson AST [Catalytic activity/Vol] 23 U/L Normal 15-[address] [facility] Comment on above: Performed By: #### C MREP #### [facility] [address] [place] [address] Dr. Risa Patterson Bilirubin [Mass/Vol] 0.2 mg/dL Normal 0.2-1.[address] [facility] Comment on above: Performed By: #### C MREP #### [facility] [address] [place] [address] Dr. Risa Patterson Calcium [Mass/Vol] 8.5 mg/dL Normal 8.5-10.1 [facility] Comment on above: Performed By: #### C MREP #### [facility] [address] [place] [address] Dr. Risa Patterson Chloride [Moles/Vol] 109 mmol/L Critically high 98-107 [facility] Comment on above: Performed By: #### C MREP #### [facility] [address] [place] [address] Dr. Risa Patterson CO2 [Moles/Vol] 28.7 mmol/L Normal 21.0-32.[address] [facility] Comment on above: Performed By: #### C MREP #### [facility] [address] [place] [address] Dr. Risa Patterson Creatinine [Mass/Vol] 1.05 mg/dL Normal 0.70-1.[address] [facility] Comment on above: Performed By: #### C MREP #### [facility] [address] [address] [address] Risa Patterson EGFR-AF MICRONESIAN >60 Normal >=[address] [facility] Comment on above: Performed By: #### C MREP #### [facility] [address] [place] [address] Dr. Risa Patterson EGFR-NON AF MICRONESIAN >60 Normal >=[address] [facility] Comment on above: Performed By: #### C MREP #### [facility] [address] [place] [address] Dr. Risa Patterson Globulin (S) [Mass/Vol] 3.5 g/dL Normal [facility] Comment on above: Performed By: #### C MREP #### [facility] [address] [place] [address] Dr. Risa Patterson Glucose [Mass/Vol] 82 mg/dL Normal 74-[address] [facility] Comment on above: Performed By: #### C MREP #### [facility] [address] [place] [address] Dr. Risa Patterson Potassium [Moles/Vol] 4.5 mmol/L Normal 3.5-5.[address] [facility] Comment on above: Performed By: #### C MREP #### [facility] [address] [place] [address] Dr. Risa Patterson Protein [Mass/Vol] 6.3 g/dL Critically low 6.4-8.[address] [facility] Comment on above: Performed By: #### C MREP #### [facility] [address] [place] [address] Dr. Risa Patterson Sodium [Moles/Vol] 144 mmol/L Normal 136-145 [facility] Comment on above: Performed By: #### C MREP #### [facility] [address] [address] [address] Risa Patterson Urea nitrogen [Mass/Vol] 16.0 mg/dL Normal 7.0-18.[address] [facility] Comment on above: Performed By: #### C MREP #### [facility] [address] [address] [address] Risa Patterson Urea nitrogen/Creatinine [Mass ratio] 15.2 mg/mg Normal [facility] Comment on above: Performed By: #### C MREP #### [facility] [address] [address] [address] Risa Patterson SED RATE [facility] 2021 SED RATE 42 mm/hr Critically high <=[address] [facility] Comment on above: Performed By: #### C MADM, BNP, BMP #### [facility] [address] [address] [address] Risa Patterson CBC W Auto Differential pane l (Bld)on 12-28-2021 Abs Immature Gran <0.10 k/uL [facility] Basophils (Bld) [#/Vol] 0.04 10*3/uL <0.11 k/uL [facility] Basophils/100 WBC (Bld) 0.7 % [facility] Differential cell count method Nom (Bld) Auto [facility] Eosinophils (Bld) [#/Vol] 0.30 10*3/uL <0.46 k/uL [facility] Eosinophils/100 WBC (Bld) 5.5 % [facility] Erythrocyte distribution width (RBC) [Ratio] 18.1 % High 11.5 - 15.0 % [facility] Hematocrit (Bld) [Volume fraction] 34.6 % Low 39.0 - 51.0 % [facility] Hemoglobin (Bld) [Mass/Vol] 10.9 g/dL Low 13.0 - 17.0 g/dL [facility] Immature Gran % 0.4 % [facility] Lymphocytes (Bld) [#/Vol] 0.95 10*3/uL Low 1.00 - 4.00 k/uL [facility] Lymphocytes/100 WBC (Bld) 17.4 % [facility] MCH (RBC) [Entitic mass] 31.3 pg 26.0 - 34.0 pg [facility] MCHC (RBC) [Mass/Vol] 31.5 g/dL 30.5 - 36.0 g/dL [facility] MCV (RBC) [Entitic vol] 99.4 fL 80.0 - 100.0 fL [facility] Monocytes (Bld) [#/Vol] 0.69 10*3/uL <0.87 k/uL [facility] Monocytes/100 WBC (Bld) 12.7 % [facility] Neutrophils (Bld) [#/Vol] 3.45 10*3/uL 1.45 - 7.50 k/uL [facility] Neutrophils/100 WBC (Bld) 63.3 % [facility] Nucleated RBC (Bld) [#/Vol] <0.01 k/uL [facility] Nucleated RBC/100 WBC (Bld) [Ratio] 0.0 /100 WBC [facility] Platelet mean volume (Bld) [Entitic vol] 10.0 fL 9.0 - 12.7 fL [facility] Platelets (Bld) [#/Vol] 230 10*3/uL 150 - 400 k/uL [facility] RBC (Bld) [#/Vol] 3.48 10*6/uL Low 4.20 - 6.0 0 m/uL [facility] WBC (Bld) [#/Vol] 5.45 10*3/uL 3.70 - 11.00 k/uL [facility] Comprehensive metabolic 2000 panelon 12-28-2021 Albumin [Mass/Vol] 3.5 g/dL Low 3.9 - 4.9 g/dL [facility] ALP [Catalytic activity/Vol] 69 U/L 38 - 113 U/L [facility] ALT [Catalytic activity/Vol] 23 U/L 10 - 54 U/L [facility] Anion gap [Moles/Vol] 6 mmol/L Low 9 - 18 mmol/L [facility] AST [Catalytic activity/Vol] 27 U/L 14 - 40 U/L [facility] Bilirubin [Mass/Vol] 0.4 mg/dL 0.2 - 1 .3 mg/dL [facility] Calcium [Mass/Vol] 9.2 mg/dL 8.5 - 10. 2 mg/dL [facility] Chloride [Moles/Vol] 110 mmol/L High 97 - 10 5 mmol/L [facility] CO2 [Moles/Vol] 27 mmol/L 22 - 30 mmol/L [facility] Creatinine [Mass/Vol] 1.05 mg/dL 0.73 - 1.22 mg/dL [facility] Estimated Glomerular Filtration Rate 81 mL/min/1.73m >=60 mL/min/1.73 m [facility] Glucose [Mass/Vol] 109 mg/dL High 74 - 99 mg/dL [facility] Potassium [Moles/Vol] 3.9 mmol/L 3.7 - 5.1 mmol/L [facility] Protein [Mass/Vol] 6.0 g/dL Low 6.3 - 8.0 g/dL [facility] Sodium [Moles/Vol] 143 mmol/L 136 - 144 mmol/L [facility] Urea nitrogen [Mass/Vol] 17 mg/dL 9 - 24 mg/dL [facility] LD LACTATE DEHYDROon 022 LDH [Catalytic activity/Vol] 270 U/L High 135 - 225 U/L [facility] CBC AUTO DIFFon 12-15-2021 BASO # 0.0 103/ul Normal 0.0-0.[address] [facility] Comment on above: Performed By: #### C BC #### [facility] [address] [place] [address] Dr. Risa Patterson Basophils/100 WBC (Bld) 0.7 % Normal 0.2-2.[address] [facility] Comment on above: Performed By: #### C BC #### [facility] [address] [place] [address] Dr. Risa Patterson EO # 0.2 103/ul Normal 0.0-0.7 [facility] Comment on above: Performed By: #### C BC #### [facility] [address] [place] [address] Dr. Risa Patterson Eosinophils/100 WBC (Bld) 3.6 % Normal 0.9-7.0 [facility] Comment on above: Performed By: #### C BC #### [facility] [address] [place] [address] Dr. Risa Patterson Erythrocyte distribution width (RBC) [Ratio] 17.4 % Critically high 11.0-15.[address] [facility] Comment on above: Performed By: #### C BC #### [facility] [address] [place] [address] Dr. Risa Pattersno Hematocrit (Bld) [Volume fraction] 36.2 % Critically low 42.0-54.[address] [facility] Comment on above: Performed By: #### C BC #### [facility] [address] [place] [address] Dr. Risa Patterson Hemoglobin (Bld) [Mass/Vol] 11.3 g/dL Critically low 14.0-18.[address] [facility] Comment on above: Performed By: #### C BC #### [facility] [address] [place] [address] Dr. Risa Patterson IG # 0.02 10e3/ul Normal 0.00-0.[address] [facility] Comment on above: Performed By: #### C BC #### [facility] [address] [place] [address] Dr. Risa Patterson IG % 0.5 % Normal 0.0-0.[address] [facility] Comment on above: Performed By: #### C BC #### [facility] [address] [place] [address] Dr. Risa Patterson LYMPH # 0.9 103/ul Critically low 1.2-3.[address] [facility] Comment on above: Performed By: #### C BC #### [facility] [address] [place] [address] Dr. Risa Patterson Lymphocytes/100 WBC (Bld) 20.0 % Critically low 20.5-60.[address] [facility] Comment on above: Performed By: #### C BC #### [facility] [address] [place] [address] Dr. Risa Patterson MANUAL DIFF REQ NO Normal [facility] Comment on above: Performed By: #### C BC #### [facility] [address] [place] [address] Dr. Risa Patterson MCH (RBC) [Entitic mass] 30.9 pg Normal 25.9-34.0 [facility] Comment on above: Performed By: #### C BC #### [facility] [address] [address] [address] Risa Patterson MCHC (RBC) [Mass/Vol] 31.2 g/dL Normal 29.9-35.[address] [facility] Comment on above: Performed By: #### C BC #### [facility] [address] [place] [address] Dr. Risa Patterson MCV (RBC) [Entitic vol] 98.9 fL Critically high 80.0-94.[address] [facility] Comment on above: Performed By: #### C BC #### [facility] [address] [place] [address] Dr. Risa Patterson MONO # 0.2 103/ul Critically low 0.3-0.[address] [facility] Comment on above: Performed By: #### C BC #### [facility] [address] [place] [address] Dr. Risa Patterson Monocytes/100 WBC (Bld) 5.4 % Normal 1.7-12.[address] [facility] Comment on above: Performed By: #### C BC #### [facility] [address] [place] [address] Dr. Risa Patterson NEUT # 3.1 103/ul Normal 1.4-6.[address] [facility] Comment on above: Performed By: #### C BC #### [facility] [address] [place] [address] Dr. Risa Patterson Neutrophils/100 WBC (Bld) 69.8 % Normal 43.0-75.0 [facility] Comment on above: Performed By: #### C BC #### [facility] [address] [place] [address] Dr. Risa Patterson Platelet mean volume (Bld) [Entitic vol] 9.7 fL Normal 9.5-13.[address] [facility] Comment on above: Performed By: #### C BC #### [facility] [address] [place] [address] Dr. Risa Patterson PLT 235 103/ul Normal 150-450 [facility] Comment on above: Performed By: #### C BC #### [facility] [address] [place] [address] Dr. Risa Patterson RBC 3.66 106/ul Critically low 4.70-6.10 [facility] Comment on above: Performed By: #### C BC #### [facility] [address] [place] [address] Dr. Risa Patterson WBC 4.4 103/ul Normal 4.0-11.0 [facility] Comment on above: Performed By: #### C BC #### [facility] [address] [place] [address] Dr. Risa Patterson FERRITINon 12-15-2021 Ferritin [Mass/Vol] 285.0 ng/mL Normal 26.0-388.0 [facility] Comment on above: Performed By: #### F ERR, VITB12 #### [facility] [address] [place] [address] Dr. Risa Patterson VITAMIN B12on 12-15-2021 Cobalamin (Vitamin B12) [Mass/Vol] 460.0 pg/mL Normal 193.0-986.0 [facility] Comment on above: Performed By: #### F ERR, VITB12 #### [facility] [address] [place] [address] Dr. Risa Patterson CBC AUTO DIFFon 11-29-2021 BASO # 0.0 103/ul Normal 0.0-0.1 [facility] Comment on above: Performed By: #### C MREP #### [facility] [address] [place] [address] Dr. Risa Patterson Basophils/100 WBC (Bld) 0.7 % Normal 0.2-2.0 [facility] Comment on above: Performed By: #### C MREP #### [facility] [address] [place] [address] Dr. Risa Patterson EO # 0.3 103/ul Normal 0.0-0.7 [facility] Comment on above: Performed By: #### C MREP #### [facility] [address] [place] [address] Dr. Risa Patterson Eosinophils/100 WBC (Bld) 6.9 % Normal 0.9-7.[address] [facility] Comment on above: Performed By: #### C MREP #### [facility] [address] [place] [address] Dr. Risa Patterson Erythrocyte distribution width (RBC) [Ratio] 17.0 % Critically high 11.0-15.[address] [facility] Comment on above: Performed By: #### C MREP #### [facility] [address] [place] [address] Dr. Risa Patterson Hematocrit (Bld) [Volume fraction] 35.4 % Critically low 42.0-54.0 [facility] Comment on above: Performed By: #### C MREP #### [facility] [address] [place] [address] Dr. Risa Patterson Hemoglobin (Bld) [Mass/Vol] 11.0 g/dL Critically low 14.0-18.[address] [facility] Comment on above: Performed By: #### C MREP #### [facility] [address] [place] [address] Dr. Risa Patterson IG # 0.01 10e3/ul Normal 0.00-0.[address] [facility] Comment on above: Performed By: #### C MREP #### [facility] [address] [place] [address] Dr. Risa Patterson IG % 0.2 % Normal 0.0-0.5 [facility] Comment on above: Performed By: #### C MREP #### [facility] [address] [place] [address] Dr. Risa Patterson LYMPH # 0.9 103/ul Critically low 1.2-3.8 [facility] Comment on above: Performed By: #### C MREP #### [facility] [address] [place] [address] Dr. Risa Patterson Lymphocytes/100 WBC (Bld) 19.5 % Critically low 20.5-60.[address] [facility] Comment on above: Performed By: #### C MREP #### [facility] [address] [address] [address] Risa Patterson MANUAL DIFF REQ NO Normal [facility] Comment on above: Performed By: #### C MREP #### [facility] [address] [place] [address] Dr. Risa Patterson MCH (RBC) [Entitic mass] 30.5 pg Normal 25.9-34.[address] [facility] Comment on above: Performed By: #### C MREP #### [facility] [address] [address] [address] Risa Patterson MCHC (RBC) [Mass/Vol] 31.1 g/dL Normal 29.9-35.2 [facility] Comment on above: Performed By: #### C MREP #### [facility] [address] [place] [address] Dr. Risa Patterson MCV (RBC) [Entitic vol] 98.1 fL Critically high 80.0-94.[address] [facility] Comment on above: Performed By: #### C MREP #### [facility] [address] [place] [address] Dr. Risa Patterson MONO # 0.6 103/ul Normal 0.3-0.8 [facility] Comment on above: Performed By: #### C MREP #### [facility] [address] [place] [address] Dr. Risa Patterson Monocytes/100 WBC (Bld) 14.0 % Critically high 1.7-12.0 [facility] Comment on above: Performed By: #### C MREP #### [facility] [address] [place] [address] Dr. Risa Patterson NEUT # 2.6 103/ul Normal 1.4-6.5 [facility] Comment on above: Performed By: #### C MREP #### [facility] [address] [place] [address] Dr. Risa Patterson Neutrophils/100 WBC (Bld) 58.7 % Normal 43.0-75.0 [facility] Comment on above: Performed By: #### C MREP #### [facility] [address] [place] [address] Dr. Risa Patterson Platelet mean volume (Bld) [Entitic vol] 9.9 fL Normal 9.5-13.5 [facility] Comment on above: Performed By: #### C MREP #### [facility] [address] [place] [address] Dr. Risa Patterson PLT 200 103/ul Normal 150-[address] [facility] Comment on above: Performed By: #### C MREP #### [facility] [address] [place] [address] Dr. Risa Patterson RBC 3.61 106/ul Critically low 4.70-6.[address] [facility] Comment on above: Performed By: #### C MREP #### [facility] [address] [place] [address] Dr. Risa Patterson WBC 4.4 103/ul Normal 4.0-11.[address] [facility] Comment on above: Performed By: #### C MREP #### [facility] [address] [place] [address] Dr. Risa Patterson PROF CHEM 8 (BAS METB)on Anion gap [Moles/Vol] 12.3 mmol/L Normal [facility] Comment on above: Performed By: #### C MADM, BNP, BMP #### [facility] [address] [place] [address] Dr. Risa Patterson Calcium [Mass/Vol] 8.9 mg/dL Normal 8.5-10.1 [facility] Comment on above: Performed By: #### C MADM, BNP, BMP #### [facility] [address] [place] [address] Dr. Risa Patterson Chloride [Moles/Vol] 109 mmol/L Critically high 98-107 [facility] Comment on above: Performed By: #### C MADM, BNP, BMP #### [facility] [address] [place] [address] Dr. Risa Patterson CO2 [Moles/Vol] 27.1 mmol/L Normal 21.0-32.[address] [facility] Comment on above: Performed By: #### C MADM, BNP, BMP #### [facility] [address] [address] [address] Risa Patterson Creatinine [Mass/Vol] 1.04 mg/dL Normal 0.70-1.[address] [facility] Comment on above: Performed By: #### C MADM, BNP, BMP #### [facility] [address] [address] [address] Risa Patterson EGFR-AF MICRONESIAN >60 Normal >=[address] [facility] Comment on above: Performed By: #### C MADM, BNP, BMP #### [facility] [address] [address] [address] Risa Patterson EGFR-NON AF MICRONESIAN >60 Normal >=[address] [facility] Comment on above: Performed By: #### C MADM, BNP, BMP #### [facility] [address] [address] [address] Risa Patterson Glucose [Mass/Vol] 112 mg/dL Critically high 74-106 [facility] Comment on above: Performed By: #### C MADM, BNP, BMP #### [facility] [address] [address] [address] Risa Patterson Potassium [Moles/Vol] 4.4 mmol/L Normal 3.5-5.[address] [facility] Comment on above: Performed By: #### C MADM, BNP, BMP #### [facility] [address] [address] [address] Risa Patterson Sodium [Moles/Vol] 144 mmol/L Normal 136-[address] [facility] Comment on above: Performed By: #### C MADM, BNP, BMP #### [facility] [address] [address] [address] Risa Patterson Urea nitrogen [Mass/Vol] 19.0 mg/dL Critically high 7.0-18.[address] [facility] Comment on above: Performed By: #### C MADM, BNP, BMP #### [facility] [address] [address] [address] Risa Patterson Urea nitrogen/Creatinine [Mass ratio] 18.3 mg/mg Normal [facility] Comment on above: Performed By: #### C MADM, BNP, BMP #### [facility] [address] [place], [place] [address] Dr. Risa Patterson TSHon 11-29-2021 TSH 1.618 uIU/mL Normal 0.358-3.[address] [facility] Comment on above: Performed By: #### C MADM, BNP, BMP #### [facility] [address] [place], [place] [address] Dr. Risa Patterson ECHOCARDIO M/2D COMPLETEon 0 10-04-2021 ECHOCARDIO M/2D COMPLETE Patient: ELENA FELIX Exam Date: 10/04/2021 : 1960 Gender:M Ordering : NIKKIE TREJO Admission #: [id number] Family : DR SILVANA LUNDBERG M.D. Order #: [id number] CLICK HERE TO VIEW EXAM ECHOCARDIOGRAM REPORT [...] Area(A4C): 20.40 cm2 Left Atrium Systolic Volume(A2C): 92072 mm3 Left Atrium Systolic Volume(A4C): 84071 mm3 Mitral Valve MV E to A [...] Leung M.D. on 10/04/2021 at 19:44 Normal [facility] PROF CHEM 8 (BAS METB)on Anion gap [Moles/Vol] 12.3 mmol/L Normal [facility] e [facility] Comment on above: Performed By: #### C MADM, BNP, BMP #### [facility] [address] [place] [address] Dr. Risa Patterson Calcium [Mass/Vol] 9.3 mg/dL Normal 8.5-10.1 [facility] Comment on above: Performed By: #### C MADM, BNP, BMP #### [facility] [address] [place] [address] Dr. Risa Patterson Chloride [Moles/Vol] 105 mmol/L Normal 98-107 [facility] Comment on above: Performed By: #### C MADM, BNP, BMP #### [facility] [address] [place] [address] Dr. Risa Patterson CO2 [Moles/Vol] 28.2 mmol/L Normal 21.0-32.0 [facility] Comment on above: Performed By: #### C MADM, BNP, BMP #### [facility] [address] [place] [address] Dr. Risa Patterson Creatinine [Mass/Vol] 1.54 mg/dL Critically high 0.70-1.30 [facility] Comment on above: Performed By: #### C MADM, BNP, BMP #### [facility] [address] [place] [address] Dr. Risa Patterson EGFR-AF MICRONESIAN 56 mL/min/1.73m2 Critically low >=60 [facility] Comment on above: Performed By: #### C MADM, BNP, BMP #### [facility] [address] [place] [address] Dr. Risa Patterson EGFR-NON AF MICRONESIAN 46 mL/min/1.73m2 Critically low >=60 [facility] Comment on above: Performed By: #### C MADM, BNP, BMP #### [facility] [address] [place] [address] Dr. Risa Patterson Glucose [Mass/Vol] 86 mg/dL Normal 74-106 [facility] Comment on above: Performed By: #### C MADM, BNP, BMP #### [facility] [address] [place] [address] Dr. Risa Patterson Potassium [Moles/Vol] 4.5 mmol/L Normal 3.5-5.1 [facility] Comment on above: Performed By: #### C MADM, BNP, BMP #### [facility] [address] [place] [address] Dr. Risa Patterson Sodium [Moles/Vol] 141 mmol/L Normal 136-145 [facility] Comment on above: Performed By: #### C MADM, BNP, BMP #### [facility] [address] [place] [address] Dr. Risa Patterson Urea nitrogen [Mass/Vol] 18.0 mg/dL Normal 7.0-18.[address] [facility] Comment on above: Performed By: #### C MADM, BNP, BMP #### [facility] [address] [place] [address] Dr. Risa Patterson Urea nitrogen/Creatinine [Mass ratio] 11.7 mg/mg Normal [facility] Comment on above: Performed By: #### C MADM, BNP, BMP #### [facility] [address] [place] [address] Dr. Risa Patterson BNPon 09-20-2021 Natriuretic peptide B (Bld) [Mass/Vol] 186.0 pg/mL Normal <=900.[address] [facility] Comment on above: Performed By: #### C MADM, BNP, BMP #### [facility] [address] [place] [address] Dr. Risa Patterson CARDIAC ALICIA 3-6on 2 CK [Catalytic activity/Vol] 133 U/L Normal 39-308 [facility] Comment on above: Performed By: #### C MREP #### [facility] [address] [place] [address] Dr. Risa Patterson CK.MB [Mass/Vol] 1.54 ng/mL Normal <=3.60 [facility] Comment on above: Performed By: #### C MREP #### [facility] [address] [place] [address] Dr. Risa Patterson HSTROP 11.9 pg/mL Normal 4.0-76.[address] [facility] Comment on above: Result Comment: CUT- OFF POINTS HAVE BEEN ESTABLISHED BASED ON THE FOURTH UNIVERSAL DEFINITIONS OF MYOCARDIAL INFARCTION. THE UPPER REFERENCE LIMIT (URL) OF TROPONIN, DEFINED THE 99TH PERCENTILE OF cTnI DISTRIBUTION IN A REFERENCE POPULATION, HAS BEEN CONFIRMED THE DECISION THRESHOLD FOR SC DIAGNOSIS. Performed By: #### C MREP #### [facility] [address] [place] [address] Dr. Risa Patterson CARDIAC ALICIA ADMITon 022 CK [Catalytic activity/Vol] 136 U/L Normal 39-308 [facility] Comment on above: Performed By: #### C MADM, BNP, BMP #### [facility] [address] [place] [address] Dr. Risa Patterson CK.MB [Mass/Vol] 1.37 ng/mL Normal <=3.60 [facility] Comment on above: Performed By: #### C MADM, BNP, BMP #### [facility] [address] [place] [address] Dr. Risa Patterson HSTROP 12.1 pg/mL Normal 4.0-76.1 [facility] Comment on above: Result Comment: CUT- OFF POINTS HAVE BEEN ESTABLISHED BASED ON THE FOURTH UNIVERSAL DEFINITIONS OF MYOCARDIAL INFARCTION. THE UPPER REFERENCE LIMIT (URL) OF TROPONIN, DEFINED THE 99TH PERCENTILE OF cTnI DISTRIBUTION IN A REFERENCE POPULATION, HAS BEEN CONFIRMED THE DECISION THRESHOLD FOR SC DIAGNOSIS. Performed By: #### C MADM, BNP, BMP #### [facility] [address] [place] [address] Dr. Risa Patterson DUC 129 ng/mL Critically high 16-96 [facility] Comment on above: Performed By: #### C MADM, BNP, BMP #### [facility] [address] [place] [address] Dr. Risa Patterson CBC AUTO DIFFon 09-20-2021 BASO # 0.1 103/ul Normal 0.0-0.[address] [facility] Comment on above: Performed By: #### C MREP #### [facility] [address] [place] [address] Dr. Risa Patterson Basophils/100 WBC (Bld) 0.8 % Normal 0.2-2.[address] [facility] Comment on above: Performed By: #### C MREP #### [facility] [address] [place] [address] Dr. Risa Patterson EO # 0.5 103/ul Normal 0.0-0.7 [facility] Comment on above: Performed By: #### C MREP #### [facility] [address] [place] [address] Dr. Risa Patterson Eosinophils/100 WBC (Bld) 5.1 % Normal 0.9-7.[address] [facility] Comment on above: Performed By: #### C MREP #### [facility] [address] [place] [address] Dr. Risa Patterson Erythrocyte distribution width (RBC) [Ratio] 14.5 % Normal 11.0-15.[address] [facility] Comment on above: Performed By: #### C MREP #### [facility] [address] [place] [address] Dr. Risa Patterson Hematocrit (Bld) [Volume fraction] 40.7 % Critically low 42.0-54.[address] [facility] Comment on above: Performed By: #### C MREP #### [facility] [address] [place] [address] Dr. Risa Patterson Hemoglobin (Bld) [Mass/Vol] 12.8 g/dL Critically low 14.0-18.[address] [facility] Comment on above: Performed By: #### C MREP #### [facility] [address] [place] [address] Dr. Risa Patterson IG # 0.05 10e3/ul Critically high 0.00-0.[address] [facility] Comment on above: Performed By: #### C MREP #### [facility] [address] [place] [address] Dr. Risa Patterson IG % 0.5 % Normal 0.0-0.5 [facility] Comment on above: Performed By: #### C MREP #### [facility] [address] [place] [address] Dr. Risa Patterson LYMPH # 1.7 103/ul Normal 1.2-3.8 [facility] Comment on above: Performed By: #### C MREP #### [facility] [address] [place] [address] Dr. Risa Patterson Lymphocytes/100 WBC (Bld) 15.8 % Critically low 20.5-60.[address] [facility] Comment on above: Performed By: #### C MREP #### [facility] [address] [place] [address] Dr. Risa Patterson MANUAL DIFF REQ NO Normal [facility] Comment on above: Performed By: #### C MREP #### [facility] [address] [place] [address] Dr. Risa Patterson MCH (RBC) [Entitic mass] 30.3 pg Normal 25.9-34.0 [facility] Comment on above: Performed By: #### C MREP #### [facility] [address] [place] [address] Dr. Risa Patterson MCHC (RBC) [Mass/Vol] 31.4 g/dL Normal 29.9-35.2 [facility] Comment on above: Performed By: #### C MREP #### [facility] [address] [place] [address] Dr. Risa Patterson MCV (RBC) [Entitic vol] 96.4 fL Critically high 80.0-94.[address] [facility] Comment on above: Performed By: #### C MREP #### [facility] [address] [place] [address] Dr. Risa Patterson MONO # 1.1 103/ul Critically high 0.3-0.[address] [facility] Comment on above: Performed By: #### C MREP #### [facility] [address] [place] [address] Dr. Risa Patterson Monocytes/100 WBC (Bld) 10.7 % Normal 1.7-12.0 [facility] Comment on above: Performed By: #### C MREP #### [facility] [address] [place] [address] Dr. Risa Patterson NEUT # 7.1 103/ul Critically high 1.4-6.5 [facility] Comment on above: Performed By: #### C MREP #### [facility] [address] [place] [address] Dr. Risa Patterson Neutrophils/100 WBC (Bld) 67.1 % Normal 43.0-75.[address] [facility] Comment on above: Performed By: #### C MREP #### [facility] [address] [place] [address] Dr. Risa Patterson Platelet mean volume (Bld) [Entitic vol] 9.5 fL Normal 9.5-13.[address] [facility] Comment on above: Performed By: #### C MREP #### [facility] [address] [place] [address] Dr. Risa Patterson PLT 317 103/ul Normal 150-[address] [facility] Comment on above: Performed By: #### C MREP #### [facility] [address] [place] [address] Dr. Risa Patterson RBC 4.22 106/ul Critically low 4.70-6.[address] [facility] Comment on above: Performed By: #### C MREP #### [facility] [address] [place] [address] Dr. Risa Patterson WBC 10.6 103/ul Normal 4.0-11.0 [facility] Comment on above: Performed By: #### C MREP #### [facility] [address] [place] [address] Dr. Risa Patterson CTA CHEST WO W CONon 05-31-2 022 CTA CHEST WO W CON EXAMINATION: [...] MAJOR REA Date: 2021-09-20 08:07 Normal [facility] Covid-19 PCR (CVDTB)on 08-23 SARS-CoV-2 (COVID-19) RNA SAMMY+probe Ql (Unsp spec) Not detected Normal NOT DETECTED [facility] Comment on above: Result Comment: When [...] for this test is supported by the [employer] of Health and Human Service's declaration that [...] By: #### C MADM, BNP, BMP #### [facility] [address] [place] [address] Dr. Risa Patterson INFLUENZA A AND B AGon 09-20 INFLUANEGH SEE BELOW Normal [facility] Comment on above: Result Comment: Nega tive for Flu A protein angiten. Infection due to Flu A cannot be ruled out. Flu A angiten in the sample may be below the detection limit of the test. Performed By: #### C MREP #### [facility] [address] [place] [address] Dr. Risa Patterson INFLUBNEG SEE BELOW Normal [facility] Comment on above: Result Comment: Nega tive for Flu B protein antigen. Infection due to Flu B cannot be ruled out. Flu B antigen in the sample may be below the detection limit of the test. Performed By: #### C MREP #### [facility] [address] [place] [address] Dr. Risa Patterson INFLUENZA A AG Negative Normal NEGATIVE SEE COMMENT [facility] Comment on above: Performed By: #### C MREP #### [facility] [address] [place] [address] Dr. Risa Patterson INFLUENZA B AG Negative Normal NEGATIVE SEE COMMENT [facility] Comment on above: Performed By: #### C MREP #### [facility] [address] [address] [address] Risa Patterson INTERNAL CONTROLS Within Normal Limits Normal Wi thin Normal Limits [facility] Comment on above: Performed By: #### C MREP #### [facility] [address] [place] [address] Dr. Risa Patterson PROF CHEM 8 (BAS METB)on Anion gap [Moles/Vol] 15.5 mmol/L Normal [facility] Comment on above: Performed By: #### C MADM, BNP, BMP #### [facility] [address] [place] [address] Dr. Risa Patterson Calcium [Mass/Vol] 9.0 mg/dL Normal 8.5-10.[address] [facility] Comment on above: Performed By: #### C MADM, BNP, BMP #### [facility] [address] [place] [address] Dr. Risa Patterson Chloride [Moles/Vol] 104 mmol/L Normal 98-[address] [facility] Comment on above: Performed By: #### C MADM, BNP, BMP #### [facility] [address] [place] [address] Dr. Risa Patterson CO2 [Moles/Vol] 25.2 mmol/L Normal 21.0-32.[address] [facility] Comment on above: Performed By: #### C MADM, BNP, BMP #### [facility] [address] [place] [address] Dr. Risa Patterson Creatinine [Mass/Vol] 1.27 mg/dL Normal 0.70-1.[address] [facility] Comment on above: Performed By: #### C MADM, BNP, BMP #### [facility] [address] [place] [address] Dr. Risa Patterson EGFR-AF MICRONESIAN >60 Normal >=[address] [facility] Comment on above: Performed By: #### C MADM, BNP, BMP #### [facility] [address] [address] [address] Risa Patterson EGFR-NON AF MICRONESIAN 58 mL/min/1.73m2 Critically low >=[address] [facility] Comment on above: Performed By: #### C MADM, BNP, BMP #### [facility] [address] [place] [address] Dr. Risa Patterson Glucose [Mass/Vol] 138 mg/dL Critically high 74-106 [facility] Comment on above: Performed By: #### C MADM, BNP, BMP #### [facility] [address] [place] [address] Dr. Risa Patterson Potassium [Moles/Vol] 3.7 mmol/L Normal 3.5-5.[address] [facility] Comment on above: Performed By: #### C MADM, BNP, BMP #### [facility] [address] [place] [address] Dr. Risa Patterson Sodium [Moles/Vol] 141 mmol/L Normal 136-[address] [facility] Comment on above: Performed By: #### C MADM, BNP, BMP #### [facility] [address] [place] [address] Dr. Risa Patterson Urea nitrogen [Mass/Vol] 19.0 mg/dL Critically high 7.0-18.[address] [facility] Comment on above: Performed By: #### C MADM, BNP, BMP #### [facility] [address] [place] [address] Dr. Risa Patterson Urea nitrogen/Creatinine [Mass ratio] 15.0 mg/mg Normal [facility] Comment on above: Performed By: #### C MADM, BNP, BMP #### [facility] [address] [place] [address] Dr. Risa Patterson XR CHEST 1 Von [...] by: ANGELES NASSAR Date: 2021-09-20 06:[address] [facility] US ASHLEY DOP LEG LTon 09-15-19 US [...] Findings called to ordering provider by the tank builder and erector at time of imaging. Electronically authenticated by: ASHER SOLANO Date: 2021-09-14 14:[address] [facility] Cardiovascular Lab Reporton 06-25-2021 Cardiovascular Lab Report [facility] Patient Name: Elena Felix [facility] MR #: [id number] Physician: Nikkie Department of MD Yes[facility] Medicine Service Date: 06/23/2021 Division of Birthdate: 1960 Cardiology Room #: Adult Cardiovascular Services [address] [place] [address] Cardiovascular Laboratory Report Procedures: 1. Right heart [...] Trejo MD Date Trans: 06/25/2021 03:01 P/ VIOLET:[id number] cc: Renato Lundberg M.D. [address] [place] [address] [address] [facility] [id number] Normal [facility] Vital Signs Date Time Vital Sign Value Performing Clinician Facility 05-13-2024 10:41-0500 Body height 185.42 cm [facility] 05-13-2024 10:41-0500 Body mass index (BMI) [Ratio] 42.2 kg/m2 [facility] 05-13-2024 10:41-0500 Body weight 145.14 kg [facility] 05-13-2024 10:41-0500 Diastolic blood pressure 70 mm[Hg] [facility] 05-13-2024 10:41-0500 Heart rate 69 /min [facility] 05-13-2024 10:41-0500 Systolic blood pressure 104 mm[Hg] [facility] 02-08-2024 09:46-0400 Body height 185 cm Alysha Emanuel MD Work Phone: [facility] 02-08-2024 09:46-0400 Body mass index (BMI) [Ratio] 40.17 kg/m2 Alysha Emanuel MD Work Phone: [facility] 02-08-2024 09:46-0400 Body weight 137.5 kg Alysha Emanuel MD Work Phone: [facility] 02-08-2024 09:46-0400 Diastolic blood pressure 80 mm[Hg] Alysha Emanuel MD Work Phone: [facility] 02-08-2024 09:46-0400 Heart rate 73 /min Alysha Emanuel MD Work Phone: [facility] 02-08-2024 09:46-0400 Systolic blood pressure 124 mm[Hg] Alysha Emanuel MD Work Phone: [facility] 01-04-2024 10:47-0400 Blood Pressure Location Jerrod BELL [facility] 01-04-2024 10:47-0400 Diastolic blood pressure 78 mm[Hg] Jerrod BELL [facility] 01-04-2024 10:47-0400 Systolic blood pressure 118 mm[Hg] Jerrod BELL [facility] 12-04-2023 09:03-0400 Body height 188 cm Merly Marti MD Work Phone: [facility] 12-04-2023 09:03-0400 Body mass index (BMI) [Ratio] 39.19 kg/m2 Merly Marti MD Work Phone: [facility] 12-04-2023 09:03-0400 Body temperature 97.3 [degF] Merly Marti MD Work Phone: [facility] 12-04-2023 09:03-0400 Body weight 138.5 kg Merly Marti MD Work Phone: [facility] 12-04-2023 09:03-0400 Diastolic blood pressure 65 mm[Hg] Merly Marti MD Work Phone: [facility] 12-04-2023 09:03-0400 Heart rate 97 /min Merly Marti MD Work Phone: [facility] 12-04-2023 09:03-0400 Respiratory rate 16 /min Merly Marti MD Work Phone: [facility] 12-04-2023 09:03-0400 SaO2% (BldA) [Mass fraction] 97 % Merly Marti MD Work Phone: [facility] 12-04-2023 09:03-0400 Systolic blood pressure 97 mm[Hg] Merly Marti MD Work Phone: [facility] 10-01-2023 09:11-0400 Body height 185.42 cm MD Silvana Lundberg Work Phone: [facility] 10-01-2023 09:11-0400 Body mass index (BMI) [Ratio] 38.9 kg/m2 MD Silvana Lundberg Work Phone: [facility] 10-01-2023 09:11-0400 Body weight 133.8 kg MD Silvana Lundberg Work Phone: [facility] 10-01-2023 09:11-0400 Diastolic blood pressure 76 mm[Hg] MD Silvana Lundberg Work Phone: [facility] 10-01-2023 09:11-0400 Heart rate 103 /min MD Silvana Lundberg Work Phone: [facility] 10-01-2023 09:11-0400 Systolic blood pressure 117 mm[Hg] MD Silvana Lundberg Work Phone: [facility] 08-31-2023 11:00-0400 Body height 185.42 cm [facility] 08-31-2023 11:00-0400 Body mass index (BMI) [Ratio] 39.4 kg/m2 [facility] 08-31-2023 11:00-0400 Body weight 135.62 kg [facility] 08-31-2023 11:00-0400 Diastolic blood pressure 74 mm[Hg] [facility] 08-31-2023 11:00-0400 Heart rate 84 /min [facility] 08-31-2023 11:00-0400 Systolic blood pressure 125 mm[Hg] [facility] 07-16-2023 10:00-0400 Body temperature 98.42 [degF] Jerrod BELL [facility] 07-16-2023 10:00-0400 Diastolic blood pressure 78 mm[Hg] Jerrod BELL [facility] 07-16-2023 10:00-0400 Heart rate 95 /min Jerrod BELL [facility] 07-16-2023 10:00-0400 Respiratory rate 16 /min Jerrod BELL [facility] 07-16-2023 10:00-0400 Systolic blood pressure 109 mm[Hg] Jerrod ARABELLA [facility] 07-06-2023 09:51-0400 Body height 185.42 cm PHYSICIAN NO [facility] 07-06-2023 09:51-0400 Body mass index (BMI) [Ratio] 39.2 kg/m2 PHYSICIAN NO [facility] 07-06-2023 09:51-0400 Body weight 134.71 kg PHYSICIAN NO [facility] 07-06-2023 09:51-0400 Diastolic blood pressure 72 mm[Hg] PHYSICIAN NO [facility] 07-06-2023 09:51-0400 Heart rate 88 /min PHYSICIAN NO [facility] 07-06-2023 09:51-0400 SaO2% (BldA) [Mass fraction] 98 % PHYSICIAN NO [facility] 07-06-2023 09:51-0400 Systolic blood pressure 108 mm[Hg] PHYSICIAN NO [facility] 02-05-2023 12:48-0400 Body weight 129.73 kg Austin Jose MD Work Phone: [facility] 11-17-2022 10:05-0400 Diastolic blood pressure 74 mm[Hg] Berta Francis MD Work Phone: [facility] 11-17-2022 10:05-0400 Heart rate 62 /min Berta Francis MD Work Phone: [facility] 11-17-2022 10:05-0400 Systolic blood pressure 107 mm[Hg] Berta Francis MD Work Phone: [facility] 11-17-2022 09:58-0400 Body weight 132 kg Berta Francis MD Work Phone: [facility] 11-17-2022 09:58-0400 SaO2% (BldA) [Mass fraction] 97 % Berta Francis MD Work Phone: [facility] 10-31-2022 11:00-0400 Body height 185.42 cm Silvana Lundberg Other [employer] Other 10-31-2022 11:00-0400 Body mass index (BMI) [Ratio] 39.58 kg/m2 Silvana Lundberg Other [employer] Other 10-31-2022 11:00-0400 Body temperature 97.9 [degF] Silvana Lundberg Other [employer] Other 10-31-2022 11:00-0400 Body weight 136.08 kg Silvana Lundberg Other [employer] Other 10-31-2022 11:00-0400 Diastolic blood pressure 49 mm[Hg] Silvana Lundberg Other [employer] Other 10-31-2022 11:00-0400 Systolic blood pressure 91 mm[Hg] Silvana Lundberg Other [employer] Other 10-16-2022 14:45-0400 Body height 185.42 cm Silvana Lundberg Other [employer] Other 10-16-2022 14:45-0400 Body mass index (BMI) [Ratio] 38.39 kg/m2 Silvana Lundberg Other [employer] Other 10-16-2022 14:45-0400 Body weight 132 kg Silvana Lundberg Other [employer] Other 10-16-2022 14:45-0400 Diastolic blood pressure 62 mm[Hg] Silvana Lundberg Other [employer] Other 10-16-2022 14:45-0400 Systolic blood pressure 89 mm[Hg] Silvana Lundberg Other [facility] [employer] Other 10-06-2022 08:23-0400 Body height 188 cm Anna Palacios PARTY COORDINATOR.INDUSTRIAL HYGIENE MANAGER Work Phone: [facility] 10-06-2022 08:23-0400 Body weight 131.54 kg Anna Palacios PARTY COORDINATOR.INDUSTRIAL HYGIENE MANAGER Work Phone: [facility] 10-06-2022 08:23-0400 Diastolic blood pressure 59 mm[Hg] Anna Palacios PARTY COORDINATOR.INDUSTRIAL HYGIENE MANAGER Work Phone: [facility] 10-06-2022 08:23-0400 Heart rate 83 /min Anna Palacios PARTY COORDINATOR.INDUSTRIAL HYGIENE MANAGER Work Phone: [facility] 10-06-2022 08:23-0400 SaO2% (BldA) [Mass fraction] 95 % Anna Palacios PARTY COORDINATOR.INDUSTRIAL HYGIENE MANAGER Work Phone: [facility] 10-06-2022 08:23-0400 Systolic blood pressure 106 mm[Hg] Annajoesph Palacios PARTY COORDINATOR.INDUSTRIAL HYGIENE MANAGER Work Phone: [facility] 08-16-2022 08:14-0400 Diastolic blood pressure 78 mm[Hg] Berta Francis MD Work Phone: [facility] 08-16-2022 08:14-0400 Systolic blood pressure 114 mm[Hg] Berta Francis MD Work Phone: [facility] 08-16-2022 08:10-0400 Body height 188 cm Berta Francis MD Work Phone: [facility] 08-16-2022 08:10-0400 Body weight 132.36 kg Berta Francis MD Work Phone: [facility] 08-16-2022 08:10-0400 Heart rate 89 /min Berta Francis MD Work Phone: [facility] 08-16-2022 08:10-0400 SaO2% (BldA) [Mass fraction] 96 % Berta Francis MD Work Phone: [facility] 05-08-2022 10:00-0500 Body height 185.42 cm Silvana Lundberg Other [employer] Other 05-08-2022 10:00-0500 Body mass index (BMI) [Ratio] 39.71 kg/m2 Silvana Lundberg Other [employer] Other 05-08-2022 10:00-0500 Body weight 136.53 kg Silvana Lundberg Other [employer] Other 05-08-2022 10:00-0500 Diastolic blood pressure 72 mm[Hg] Silvana Lundberg Other [employer] Other 05-08-2022 10:00-0500 SaO2% (BldA) [Mass fraction] 97 % Silvana Lundberg Other [employer] Other 05-08-2022 10:00-0500 Systolic blood pressure 112 mm[Hg] Silvana Lundberg Other [employer] Other 01-18-2022 09:54-0400 Body height 190.5 cm Merly Marti MD Work Phone: [facility] 01-18-2022 09:54-0400 Body temperature 97.3 [degF] Merly Marti MD Work Phone: [facility] 01-18-2022 09:54-0400 Body weight 131.91 kg Merly Marti MD Work Phone: [facility] 01-18-2022 09:54-0400 Diastolic blood pressure 71 mm[Hg] Merly Marti MD Work Phone: [facility] 01-18-2022 09:54-0400 Heart rate 92 /min Merly Marti MD Work Phone: [facility] 01-18-2022 09:54-0400 Respiratory rate 18 /min Merly Marti MD Work Phone: [facility] 01-18-2022 09:54-0400 SaO2% (BldA) [Mass fraction] 97 % Merly Marti MD Work Phone: [facility] 01-18-2022 09:54-0400 Systolic blood pressure 122 mm[Hg] Merly Marti MD Work Phone: [facility] 12-28-2021 14:38-0400 Body height 190.5 cm Merly Marti MD Work Phone: [facility] 12-28-2021 14:38-0400 Body temperature 97.2 [degF] Merly Marti MD Work Phone: [facility] 12-28-2021 14:38-0400 Body weight 135.53 kg Merly Marti MD Work Phone: [facility] 12-28-2021 14:38-0400 Diastolic blood pressure 66 mm[Hg] Merly Marti MD Work Phone: [facility] 12-28-2021 14:38-0400 Heart rate 72 /min Merly Marti MD Work Phone: [facility] 12-28-2021 14:38-0400 Respiratory rate 18 /min Merly Marti MD Work Phone: [facility] 12-28-2021 14:38-0400 SaO2% (BldA) [Mass fraction] 96 % Merly Marti MD Work Phone: [facility] 12-28-2021 14:38-0400 Systolic blood pressure 127 mm[Hg] Merly Marti MD Work Phone: [facility] 09-21-2021 15:35-0400 Body height 190.5 cm Merly Marti MD Work Phone: [facility] 09-21-2021 15:35-0400 Body temperature 97.2 [degF] Merly Marti MD Work Phone: [facility] 09-21-2021 15:35-0400 Body weight 132.63 kg Merly Mrati MD Work Phone: [facility] 09-21-2021 15:35-0400 Diastolic blood pressure 73 mm[Hg] Merly Marti MD Work Phone: [facility] 09-21-2021 15:35-0400 Heart rate 91 /min Merly Marti MD Work Phone: [facility] 09-21-2021 15:35-0400 Respiratory rate 16 /min Merly Marti MD Work Phone: [facility] 09-21-2021 15:35-0400 SaO2% (BldA) [Mass fraction] 94 % Merly Marti MD Work Phone: [facility] 09-21-2021 15:35-0400 Systolic blood pressure 122 mm[Hg] Merly Marti MD Work Phone: [facility] Encounters Encounter Date Encounter Type Care Provider Facility Start: 05-13-2024 End: 05-13-2024 ambulatory [facility] Work Phone: Start: 05-13-2024 End: 05-13-2024 Patient encounter procedure [facility] Work Phone: Start: 04-09-2024 End: 04-09-2024 ambulatory Alysha Emanuel MD Work Phone: Endocrinology Comment on above: New injection Start: 04-07-2024 End: 04-07-2024 Telephone encounter Alysha Emanuel MD Work Phone: Endocrinology Comment on above: Medication Problem ( Teriparatide 20 mcg/dose (600mcg/2.4mL) Start: 04-07-2024 Non-patient / Non-visit [facility] Physician [facility] Work Phone: Start: 03-17-2024 Non-patient / Non-visit [facility] Physician [facility] Work Phone: Start: 03-17-2024 End: 03-17-2024 ambulatory SILVANA LUNDBERG Facility:[facility] Start: 02-12-2024 End: 02-12-2024 ambulatory SILVANA LUNDBERG Facility:[facility] Start: 02-08-2024 End: 02-08-2024 ambulatory SILVANA LUNDBERG Facility:[facility] Start: 02-08-2024 End: 02-08-2024 Patient encounter procedure Alysha Emanuel MD Work Phone: Endocrinology Comment on above: Other hyperparathyro idism (HCC) (Primary Dx); Closed fracture of hip, left, with delayed healing, subsequent encounter; High serum parathyroid hormone (PTH); Osteoporosis, unspecified osteoporosis type, unspecified pathological fracture presence; Class 3 severe obesity without serious comorbidity with body mass index (BMI) of 40.0 to 44.9 in adult, unspecified obesity type (HCC) Start: 01-04-2024 End: 01-04-2024 ambulatory Jerrod BELL Facility:[facility] Start: 01-04-2024 End: 01-04-2024 Patient encounter procedure Jerrod BELL [facility] Start: 12-25-2023 End: 12-25-2023 ambulatory Jerrod BELL Facility:[facility] Start: 12-25-2023 End: 12-25-2023 Patient encounter procedure Jerrod BELL [facility] Start: 12-04-2023 End: 12-04-2023 ambulatory Merly Marti MD Work Phone: Hematology/Oncology Comment on above: History of DVT (deep vein thrombosis) (Primary Dx); Monoclonal gammopathy Start: 12-04-2023 End: 12-04-2023 Patient encounter procedure Merly Marti MD Work Phone: Hematology/Oncology Start: 11-29-2023 End: 11-29-2023 Office outpatient visit 15 minutes Misty Wallace MD Work Phone: [facility] Comment on above: Closed fracture of h ip, left, with delayed healing, subsequent encounter (Primary Dx) Start: 11-29-2023 End: 11-29-2023 ambulatory ANOKHA PADUBIDRI Facility:[facility] Start: 11-29-2023 End: 11-29-2023 Subsequent hospital visit by physician [facility] Comment on above: Closed fracture of h ip, left, with delayed healing, subsequent encounter [S72.002G] Start: 11-07-2023 End: 11-07-2023 ambulatory SILVANA LUNDBERG Facility:[facility] Start: 10-01-2023 Telephone encounter Alysha Emanuel MD Work Phone: Endocrinology Start: 10-01-2023 End: 10-01-2023 ambulatory MD Silvana Lundberg Work Phone: [facility] Work Phone: Start: 10-01-2023 End: 10-01-2023 Patient encounter procedure MD Silvana Lundberg Work Phone: [facility] Physician [facility] Work Phone: Start: 09-28-2023 Telephone encounter Misty dumont MD Work Phone: [facility] Comment on above: Results (Spoke with patient regarding his PTH results. ) Start: 09-27-2023 Non-patient / Non-visit MD Jaqueline Lundberg Work Phone: [facility] Physician [facility] Work Phone: Start: 09-27-2023 End: 09-27-2023 ambulatory ANOKENNETHA PAULINARI Facility:[facility] Start: 09-27-2023 End: 09-27-2023 Office outpatient new 45 minutes Misty Wallace MD Work Phone: [facility] [place] Comment on above: Closed fracture of h ip, left, with delayed healing, subsequent encounter (Primary Dx); Ankylosing spondylitis of multiple sites in spine ([facility]); Acute deep vein thrombosis (DVT) of femoral vein of both lower extremities ([facility]); Morbid obesity with BMI of 40.0-44.9, adult ([facility]) Start: 09-27-2023 End: 09-27-2023 ambulatory MISTY WALLACE Facility:[facility] Start: 09-27-2023 End: 09-27-2023 Subsequent hospital visit by physician X[facility] Radiology Comment on above: Pain [R52] Start: 2023 End: 2023 ambulatory Safia Enrique Facility:[facility] Start: 2023 End: 2023 Patient encounter procedure MD Silvana Lundberg Work Phone: [facility] [address] Work Phone: Start: 08-31-2023 End: 08-31-2023 ambulatory [facility] Work Phone: Start: 08-31-2023 End: 08-31-2023 Patient encounter procedure [facility] Work Phone: Start: 08-02-2023 Non-patient / Non-visit [facility] Physician [facility] Work Phone: Start: 07-31-2023 End: 07-31-2023 ambulatory ANNA A PETITTI Not Available Start: 07-17-2023 End: 07-17-2023 ambulatory ANNA A PETITTI Not Available Start: 07-16-2023 End: 07-16-2023 ambulatory Jerrod BELL Facility:[facility] Start: 07-16-2023 End: 07-16-2023 Patient encounter procedure Jerrod BELL [facility] Start: 07-06-2023 End: 07-06-2023 ambulatory PHYSICIAN NO [facility] Work Phone: Start: 07-06-2023 End: 07-06-2023 Patient encounter procedure PHYSICIAN NO [facility] Physician [facility] Work Phone: Start: 06-20-2023 Non-patient / Non-visit PHYSIC TJ NO [facility] Physician [facility] Work Phone: Start: 05-16-2023 End: 05-16-2023 ambulatory SILVANA LUNDBERG Facility:[facility] Start: 05-03-2023 End: 05-03-2023 ambulatory PHYSICIAN NO [facility] Facility:[facility] Start: 05-03-2023 End: 05-03-2023 ambulatory PHYSICIAN NO [facility] Work Phone: Start: 05-03-2023 End: 05-03-2023 Patient encounter procedure PHYSICIAN NO [facility] [address] Work Phone: Start: 03-29-2023 (Televisit) Televisit Silvana Samson [facility] Start: 03-29-2023 End: 03-29-2023 ambulatory Silvana Lundberg Other [employer] Other Start: 02-19-2023 End: 02-19-2023 ambulatory Silvana Lundberg Other [employer] Other Start: 02-19-2023 Telephone encounter Silvana Lundberg [facility] Start: 02-05-2023 End: 02-05-2023 Patient encounter procedure Austin Jose MD Work Phone: Cardiology Comment on above: Shortness of breath (Primary Dx); Near syncope Start: 12-27-2022 End: 12-27-2022 ambulatory Silvana Lundberg Other [employer] Other Start: 12-27-2022 Nursing evaluation o f patient and report Silvana Lundberg [facility] Start: 12-11-2022 End: 12-11-2022 ambulatory Brad Hodges Facility:[facility] Start: 12-11-2022 End: 12-11-2022 ambulatory PHYSICIAN HUSAM [facility] Work Phone: Start: 12-11-2022 End: 12-11-2022 Patient encounter procedure PHYSICIAN NO [facility] [address] Work Phone: Start: 11-17-2022 End: 11-17-2022 Patient encounter procedure Berta Francis MD Work Phone: Cardiology Comment on above: SOB (shortness of br eath) (Primary Dx); Coronary artery disease involving [place] coronary artery of [place] heart without angina pectoris; Palpitations Start: 11-07-2022 End: 11-07-2022 ambulatory Silvana Lundberg Other [employer] Other Start: 11-07-2022 Nursing evaluation o f patient and report Silvana Lundberg [facility] Start: 11-07-2022 Telephone encounter Silvana Lundberg [facility] Start: 11-02-2022 End: 11-02-2022 ambulatory Silvana Lundberg Other [employer] Other Start: 11-02-2022 Telephone encounter Silvana Lundberg [facility] Start: 10-31-2022 Office outpatient vi sit 15 minutes Silvana Lundberg [facility] Start: 10-31-2022 End: 10-31-2022 ambulatory Silvana Lundberg Facility:[facility] Start: 10-31-2022 End: 10-31-2022 ambulatory MD Silvana Lundberg Work Phone: [facility] Work Phone: Start: 10-31-2022 End: 10-31-2022 Departed Referred MD Silvana Lundberg Work Phone: [facility] [address] [place] Work Phone: Start: 10-17-2022 Orders Only Berta Francis MD Work Phone: Cardiology Comment on above: Dilated cardiomyopat hy (HCC) (Primary Dx) 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 sites in spine (HCC) (Primary Dx) Results (Abnormal La bs) Start: 10-16-2022 Office outpatient vi sit 25 minutes Silvanavijaya Lundberg [facility] Start: 10-16-2022 End: 10-16-2022 ambulatory Emg 1000) Work Phone: Neurology Comment on above: EMG Start: 10-16-2022 End: 10-16-2022 Patient encounter procedure Emg 1 Neur Main (Max Weight: 1000) Work Phone: [facility] Start: 10-12-2022 Telephone encounter Anna carrasco PARTY COORDINATOR.INDUSTRIAL HYGIENE MANAGER Work Phone: Neurology Comment on above: Results (Abnormal la bs) Start: 10-06-2022 End: 10-06-2022 Patient encounter procedure Anna Palacios PARTY COORDINATOR.INDUSTRIAL HYGIENE MANAGER Work Phone: Neurology Comment on above: Disturbance of skin sensation (Primary Dx); Lightheadedness; Change in blood pressure; Orthostatic hypotension; Tremulousness Start: 10-04-2022 End: 10-04-2022 Subsequent hospital visit by physician [employer] Work Phone: Molecular Imaging Comment on above: Exertional dyspnea [ R06.09] Start: 10-03-2022 ambulatory ALFREDO dunn [facility] Start: 09-13-2022 End: 09-13-2022 Subsequent hospital visit by physician [facility] Echocardiology Testing Comment on above: Exertional dyspnea [ R06.09] Start: 09-06-2022 End: 09-07-[address] WALL [facility] Facility:[facility] Start: 08-29-2022 End: 08-29-2022 ambulatory David Anderson MD Work Phone: Cardiology Comment on above: Shortness of Breath Start: 08-29-2022 End: 08-29-2022 Patient encounter procedure David Anderson MD Work Phone: [facility] Start: 08-28-2022 Telephone encounter David Saravia MD Work Phone: Cardiology Comment on above: Patient Education Start: 08-16-2022 End: 08-16-2022 Orders Only Austin Jose MD Work Phone: Cardiology Comment on above: [...] in spine (HCC) Start: 08-15-2022 Telephone encounter Berta samson MD Work Phone: Cardiology Comment on above: Received Outside Med ical Records Start: 08-10-2022 End: 08-10-[address] [facility] Start: 07-31-2022 End: 08-01-2022 ambulatory [facility] Start: 07-31-2022 End: 07-31-2022 Subsequent hospital visit by physician [facility] Tilt Table Study Room [facility] Stress Lab Comment on above: Orthostatic hypotens ion; POTS (postural orthostatic tachycardia syndrome) Start: 07-12-2022 End: 07-12-2022 ambulatory [facility] Start: 07-12-2022 Telephone encounter Berta samson MD Work Phone: Cardiology Comment on above: Appointment Start: 07-04-2022 End: 07-05-2022 ambulatory NIKKIE TREJO Facility:[facility] Start: 06-26-2022 End: 06-27-2022 ambulatory NIKKIE TREJO Facility:[facility] Start: 06-26-[address] DOCTOR NUNES Facility :[facility] Start: 05-31-2022 End: 05-31-2022 ambulatory NIKKIE TREJO [facility] Start: 05-24-[address] DOCTOR NUNES Facility :[facility] Start: 05-08-2022 End: 05-08-2022 ambulatory Silvana Lundberg Other [employer] Other Start: 05-08-2022 Office outpatient vi sit 15 minutes Silvana Lundberg [facility] Start: 05-01-2022 End: 05-01-2022 Patient encounter procedure Jerrod R ARABELLA [facility] Start: 04-24-2022 End: 04-25-[address] [...] Facility:[facility] Start: 11-29-2021 End: 11-30-2021 ambulatory CARLOS CARMEN Facility:[facility] Start: 11-23-2021 End: 11-23-[address] AIDE DELEON Facility:[facility] Start: 10-04-2021 End: 10-05-2021 ambulatory NIKKIE TREJO Facility:[facility] Start: 09-22-2021 ambulatory [facility] TREJO Faci lity:[facility] Start: 09-21-2021 End: 09-21-2021 [...] Phone: Hematology/Oncology Start: 09-14-2021 End: 09-15-2021 ambulatory REXTOLSTOYRuss TREJO Facility:[facility] Start: 08-06-2020 End: 08-06-2020 Discharged Recurring Silvana Tamika Work Phone: [facility]Covid Vaccine Off Site Procedures Date Procedure Procedure Detail Performing Clinician Start: 02-18-2023 Repair of hip Jerrod JAMES Start: 10-31-2022 Aerobic microbial culture PHYSICIAN NO FAMILY Start: 10-31-2022 Anaerobic microbial culture PHYSICIAN NO FAMILY Start: 10-31-2022 Investigation of tra nsfusion reaction PHYSICIAN NO FAMILY Start: 10-16-2022 Nerve conduction waylon dies 5-6 studies Anna Palacios PARTY COORDINATOR.INDUSTRIAL HYGIENE MANAGER Work Phone: Start: 10-04-2022 Pulmonary ventilatio n & perfusion imaging Kellen Bryan MD Work Phone: Start: 09-13-2022 Echo tthrc r-t 2d w/ wom-mode compl spec&colr d Kellen Bryan MD Work Phone: Start: 09-13-2022 LVEF ECHO Berta samson MD Work Phone: Start: 12-28-2021 Blood count complete auto&auto difrntl wbc Merly Marti MD Work Phone: Start: 01-22-2020 Colonoscopy Merly fuller MD Work Phone: Start: 01-22-2020 Colsc flx w/rmvl of tumor polyp lesion snare tq Jerrod [employer] Start: 01-22-2020 Endoscopy and biopsy of upper gastrointestinal tract Jerrod [employer] Start: 08-02-2018 Screening for malign ant neoplasm of prostate Silvana Lundberg Other Start: 05-17-2015 Injection of hip usi ng fluoroscopic guidance Jerrod [employer] Comment on above: Rt. hip in OR-- 100% relief for 10 days Start: 03-08-2015 Injection of hip usi ng fluoroscopic guidance Jerrod [employer] Comment on above: 100% relief for 4 da ys, slowly started coming back after 5 days back to where level of pain was before injection Start: 10-30-2014 Removal of suture Hue Lundberg Other Start: 10-02-2014 Back structure, excl uding neck (body structure) Jerrod [employer] Comment on above: L2 to L5, cyst remov al, bone grafting Start: 06-26-2014 Injection of sacroil iac joint using fluoroscopic guidance Jerrod [employer] Comment on above: Left Start: 04-06-2014 Injection of sacroil iac joint using fluoroscopic guidance Jerrod [employer] Comment on above: Left SIJI Start: 02-16-2014 Radiofrequency dener vation of spinal facet joint of lumbar vertebra Jerrod [employer] Comment on above: Right L2-L5 Start: 02-02-2014 Radiofrequency dener vation of spinal facet joint of lumbar vertebra Jerrod ARABELLA Comment on above: Left L2-L5 Start: 01-23-2014 [...] Treatment Date Care Activity Detail Author Start: 11-06-2026 Diabetes Screening Diabetes Screening [facility] Start: 09-26-2026 Diabetes Screening Diabetes Screening [facility] Start: 05-30-2026 PROSTATE CANCER SCREENING DISCUSSION PROSTATE CANCER SCREENING DISCUSSION [facility] Start: 10-16-2025 DIABETES SCREEN DIABETES SCREEN [facility] Start: 10-16-2025 Diabetes Screening Diabetes Screening [facility] Start: 10-06-2025 DIABETES SCREEN DIABETES SCREEN [facility] Start: 12-28-2024 DIABETES SCREEN DIABETES SCREEN [facility] Start: 12-03-2024 End: 12-03-2024 ambulatory Hematology/Oncology Comment on above: 1 year ROBBY / Willi pt Start: 11-26-2024 End: 11-26-2024 Patient encounter procedure 11/26/2024 9:30 AM EDT Office Visit [facility] [address] [place] [address] [place] [address] 1 year lab [facility] Comment on above: 1 year lab Start: 07-21-2024 ambulatory Ambulatory Facility:[facility] Start: 07-08-2024 End: 07-08-2024 Patient encounter procedure 07/08/2024 10:00 AM EDT Office Visit Endocrinology [address] [id number] Alysha Emanuel MD [address] [place] [address] Follow Up Endocrinology Comment on above: Follow Up Start: 07-02-2024 End: 07-02-2024 Patient encounter procedure 07/02/2024 1:40 PM EDT Appointment Radiology [address] [address] [facility] Radiology Comment on above: [facility] Start: 05-27-2024 End: 05-27-2024 Patient encounter procedure 05/27/2024 8:20 AM EST Appointment Radiology [address] [place] [address] [facility] Radiology Comment on above: [facility] Start: 05-13-2024 Patient referral [facility] Work Phone: Start: 05-01-2024 Covid-19 Vaccine () Covid-19 Vaccine () [facility] Start: 02-08-2024 End: 05-09-2024 25-hydroxyvitamin D3 [Mass/volume] in Serum or Plasma VITAMIN D 25 HYDROXY Lab Routine Closed fracture of hip, left, with delayed healing, subsequent encounter High serum parathyroid hormone (PTH) Other hyperparathyroidism (HCC) Osteoporosis, unspecified osteoporosis type, unspecified pathological fracture presence Expected: 02/08/2024, Expires: 05/09/2024 [facility] Comment on above: Expected: 02/08/2024, Expires: Start: 02-08-2024 End: 05-09-2024 BIOAVAILABLE TESTOSTERONE, ADULT MALE BIOAVAILABLE TESTOSTERONE, ADULT MALE Lab Routine Closed fracture of hip, left, with delayed healing, subsequent encounter High serum parathyroid hormone (PTH) Other hyperparathyroidism (HCC) Osteoporosis, unspecified osteoporosis type, unspecified pathological fracture presence Expected: 02/08/2024, Expires: 05/09/2024 [facility] Comment on above: Expected: 02/08/2024, Expires: Start: 02-08-2024 End: 05-09-2024 Magnesium [Mass/volume] in Serum or Plasma MAGNESIUM Lab Routine Closed fracture of hip, left, with delayed healing, subsequent encounter High serum parathyroid hormone (PTH) Other hyperparathyroidism (HCC) Osteoporosis, unspecified osteoporosis type, unspecified pathological fracture presence Expected: 02/08/2024, Expires: 05/09/2024 [facility] Comment on above: Expected: 02/08/2024, Expires: Start: 02-08-2024 End: 05-09-2024 Parathyrin.intact [Mass/volume] in Serum or Plasma PTH INTACT Lab Routine Closed fracture of hip, left, with delayed healing, subsequent encounter High serum parathyroid hormone (PTH) Other hyperparathyroidism (HCC) Osteoporosis, unspecified osteoporosis type, unspecified pathological fracture presence Expected: 02/08/2024, Expires: 05/09/2024 [facility] Comment on above: Expected: 02/08/2024, Expires: Start: 02-08-2024 End: 05-09-2024 Renal function 2000 panel - Serum or Plasma RENAL FUNCTION PANEL Lab Routine Closed fracture of hip, left, with delayed healing, subsequent encounter High serum parathyroid hormone (PTH) Other hyperparathyroidism (HCC) Osteoporosis, unspecified osteoporosis type, unspecified pathological fracture presence Expected: 02/08/2024, Expires: 05/09/2024 [facility] Comment on above: Expected: 02/08/2024, Expires: Start: 12-23-2023 Covid-19 Vaccine ( season) Covid-19 Vaccine ( season) [facility] Start: 12-23-2023 Influenza vaccination [facility] Start: 12-14-2023 End: 12-14-2023 Patient encounter procedure 12/14/2023 1:00 PM EDT Office Visit Endocrinology [address] [place] [address] Alysha Emanuel MD [address] [place] [address] Pt needs appt with me please or Dr Domo Garcia. Thank you so much Endocrinology Comment on above: Pt needs appt with me please or Dr Domo Garcia. Thank you so much Start: 12-04-2023 End: 12-04-2023 ambulatory 12/04/2023 9:30 AM EDT Visit (SP) Office Hematology/Oncology [address] [place] [address] [place] [address] Merly Marti MD [address] [place] [address] [place] [address] 6 month lab Hematology/Oncology Comment on above: 6 month lab Start: 11-29-2023 End: 11-29-2023 Patient encounter procedure 11/29/2023 9:45 AM EDT Office Visit [facility] [address] [place] [address] [place] [address] [place] [address] Folow up- Delayed union of closed fracture of hip [facility] Comment on above: Folow up- Delayed union of closed fractu re of hip Start: 11-28-2023 End: 11-28-2023 ambulatory 11/28/2023 10:00 AM EDT Visit (SP) Office Hematology/Oncology [address] [place] [address] [place] [address] Merly Marti MD [address] [place] [id number] 6 month lab Hematology/Oncology Comment on above: 6 month lab Start: 11-21-2023 End: 11-21-2023 Patient encounter procedure 11/21/2023 8:30 AM EDT Office Visit [facility] [address] [place] [address] [place] [address] 6 month lab [facility] Comment on above: 6 month lab Start: 12-22-2022 Covid-19 Vaccine () Covid-19 Vaccine () [facility] Start: 12-22-2022 Influenza vaccination [facility] Start: 12-11-2022 Hepatitis B core antibody measurement [facility] Start: 12-11-2022 [facility] Start: 10-31-2022 Aerobic Culture Aerobic Culture [facility] Start: 10-31-2022 Anaerobic Culture Anaerobic Culture [facility] Start: 10-31-2022 Microscopic observation [Identifier] in Unspecified specimen by Gram stain Gram Stain [facility] Start: 10-31-2022 [facility] Start: 10-17-2022 End: 12-17-2022 C reactive protein [Mass/volume] in Serum or Plasma C-REACTIVE PROTEIN (CRP) Lab Routine Ankylosing spondylitis of multiple sites in spine (HCC) Expected: 10/17/2022, Expires: 12/17/2022 [facility] Work Phone: Comment on above: Expected: 10/17/2022, Expires: 3 Start: 10-17-2022 End: 12-17-2022 Erythrocyte sedimentation rate SED RATE WESTERGREN Lab Routine Ankylosing spondylitis of multiple sites in spine (HCC) Expected: 10/17/2022, Expires: 12/17/2022 [facility] Work Phone: Comment on above: Expected: 10/17/2022, Expires: 3 Start: 10-06-2022 End: 12-06-2022 Alpha tocopherol [Mass/volume] in Serum or Plasma [facility] Work Phone: Comment on above: Expected: 10/06/2022, Expires: 3 Start: 10-06-2022 End: 12-06-[address] [facility] Work Phone: Comment on above: Expected: 10/06/2022, Expires: 3 Start: 10-06-2022 End: 12-06-2022 Hemoglobin A1c in Blood [facility] Work Phone: Comment on above: Expected: 10/06/2022, Expires: 3 Start: 10-06-2022 End: 12-06-2022 IMMUNOFIXATION SCREEN, SERUM [facility] Work Phone: Comment on above: Expected: 10/06/2022, Expires: 3 Start: 10-06-2022 End: 12-06-2022 KAPPA/KEANE,FREE,SER [facility] Work Phone: Comment on above: Expected: 10/06/2022, Expires: 3 Start: 10-06-2022 End: 12-06-2022 Pyridoxine [Mass/volume] in Serum or Plasma [facility] Work Phone: Comment on above: Expected: 10/06/2022, Expires: 3 Start: 10-06-2022 End: 12-06-2022 VITAMIN B1 (THIAMINE), WHOLE BLOOD [facility] Work Phone: Comment on above: Expected: 10/06/2022, Expires: 3 Start: 10-06-2022 End: 12-06-2022 Zinc [Mass/volume] in Serum or Plasma [facility] Work Phone: Comment on above: Expected: 10/06/2022, Expires: 3 Start: 07-25-2022 Annual Wellness Visit (AWV) Annual Wellness Visit (AWV) [facility] Start: 04-23-2022 DEPRESSION ASSESSMENT DEPRESSION ASSESSMENT [facility] Start: 12-28-2021 End: 02-27-2022 Fibrin D-dimer FEU [Mass/volume] in Platelet poor plasma D-DIMER Lab Routine Acute deep vein thrombosis (DVT) of distal end of left lower extremity (HCC) Expected: 12/28/2021, Expires: 02/27/2022 [facility] Work Phone: Comment on above: Expected: 12/28/2021, Expires: 2 Start: 12-22-2021 End: 02-21-2022 APC RESISTANCE APC RESISTANCE Lab Routine Acute deep vein thrombosis (DVT) of distal end of left lower extremity (HCC) Expected: 12/22/2021 (Approximate), Expires: 02/21/2022 [facility] Work Phone: Comment on above: Expected: 12/22/2021 (Approximate), Expi res: 02/21/2022 Start: 12-22-2021 End: 02-21-2022 B 2 GPI IGG & IGM B 2 GPI IGG & IGM Lab Routine Acute deep vein thrombosis (DVT) of distal end of left lower extremity (HCC) Expected: 12/22/2021 (Approximate), Expires: 02/21/2022 [facility] Work Phone: Comment on above: Expected: 12/22/2021 (Approximate), Expi res: 02/21/2022 Start: 12-22-2021 End: 02-21-2022 Cardiolipin IgG and IgM panel - Serum ANTI-CARDIOLIPIN AB Lab Routine Acute deep vein thrombosis (DVT) of distal end of left lower extremity (HCC) Expected: 12/22/2021 (Approximate), Expires: 02/21/2022 [facility] Work Phone: Comment on above: Expected: 12/22/2021 (Approximate), Expi res: 02/21/2022 Start: 12-22-2021 End: 02-21-2022 CBC W Auto Differential panel - Blood CBC + DIFF Lab Routine Acute deep vein thrombosis (DVT) of distal end of left lower extremity (HCC) Expected: 12/22/2021 (Approximate), Expires: 02/21/2022 [facility] Work Phone: Comment on above: Expected: 12/22/2021 (Approximate), Expi res: 02/21/2022 Start: 12-22-2021 End: 02-21-2022 Comprehensive metabolic 2000 panel - Serum or Plasma COMP METABOLIC PANEL Lab Routine Acute deep vein thrombosis (DVT) of distal end of left lower extremity (HCC) Expected: 12/22/2021 (Approximate), Expires: 02/21/2022 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 Work Phone: Comment on above: Expected: 12/22/2021 (Approximate), Expi res: 02/21/2022 Start: 12-22-2021 Influenza vaccination [facility] Start: 12-22-2021 End: 02-21-2022 Lactate dehydrogenase [Enzymatic activity/volume] in Serum or Plasma LD LACTATE DEHYDRO Lab Routine Acute deep vein thrombosis (DVT) of distal end of left lower extremity (HCC) Expected: 12/22/2021 (Approximate), Expires: 02/21/2022 [facility] Work Phone: Comment on above: Expected: 12/22/2021 (Approximate), Expi res: 02/21/2022 Start: 12-22-2021 End: 02-21-[address]US ANTICOAG [address] Lab Routine Acute deep vein thrombosis (DVT) of distal end of left lower extremity (HCC) Expected: 12/22/2021 (Approximate), Expires: 02/21/2022 [facility] Work Phone: Comment on above: Expected: 12/22/2021 (Approximate), Expi res: 02/21/2022 Start: 01-21-2021 Colonoscopy COLONOSCOPY [facility] Start: 01-21-2021 COLORECTAL CANCER SCREENING COLORECTAL CANCER SCREENING [facility] Start: 01-21-2021 Screening for malignant neoplasm of colon [facility] Start: 2020 RSV Vaccine (1 - 1-dose 60+ series) RSV Vaccine (1 - 1-dose 60+ series) [facility] Start: 2020 RSV Vaccine (1 - Risk 60-74 years 1-dose series) RSV Vaccine (1 - Risk 60-74 years 1-dose series) [facility] Start: 12-16-2019 DIABETES SCREEN DIABETES SCREEN [facility] Start: 09-05-2015 PROSTATE CANCER SCREENING DISCUSSION PROSTATE CANCER SCREENING DISCUSSION [facility] Start: 09-05-2015 Prostate specific antigen measurement Prostate Cancer Screening Discussion [facility] Start: 08-14-2015 PNEUMOCOCCAL (2 - PCV) PNEUMOCOCCAL (2 - PCV) [facility] Start: 08-14-2015 [facility] Start: 08-14-2015 Pneumococcal Vaccine: 50+ (2 of 2 - PCV) Pneumococcal Vaccine: 50+ (2 of 2 - PCV) [facility] Start: 01-12-2015 Urine microalbumin profile DTaP,Tdap,Td Vaccine (1 - Tdap) [facility] Start: 2010 Shingles vaccine (1 of 2) Shingles vaccine (1 of 2) [facility] Start: 2010 SHINGRIX VACCINE (1 of 2) SHINGRIX VACCINE (1 of 2) [facility] Start: 2005 COLOGUARD (FIT-DNA) COLOGUARD (FIT-DNA) [facility] Start: 2005 Colonoscopy COLONOSCOPY [facility] Start: 2005 COLORECTAL CANCER SCREENING COLORECTAL CANCER SCREENING [facility] Start: [address] COLONOGRAPHY [facility] Start: 2005 FECAL OCCULT BLOOD FECAL OCCULT BLOOD [facility] Start: 2005 Screening for malignant neoplasm of colon [facility] Start: 2005 SIGMOIDOSCOPY SIGMOIDOSCOPY [facility] Start: 2000 Lipid panel Lipids [facility] Start: 09-05-1995 Lipid 1996 panel - Serum or Plasma Lipid Screening [facility] Start: 09-05-1995 Lipid panel Lipid Screening [facility] Start: 09-05-1995 LIPID SCREEN LIPID SCREEN [facility] Start: 09-05-1979 DTaP/Tdap/Td vaccine (1 - Tdap) DTaP/Tdap/Td vaccine (1 - Tdap) [facility] Start: 09-05-1979 SHINGRIX VACCINE (1 of 2) SHINGRIX VACCINE (1 of 2) [facility] Start: 09-05-1979 Urine microalbumin profile [facility] Start: 1978 Anxiety Screening Anxiety Screening [facility] Start: 1978 HEPATITIS C SCREENING HEPATITIS C SCREENING [facility] Start: 1978 Hepatitis C screening [facility] Start: 1978 HIV SCREENING HIV SCREENING [facility] Start: 1978 HIV screening HIV Screening [facility] Start: 09-05-1975 HIV screening HIV screen [facility] Start: 1972 Depression Screen Depression Screen [facility] Start: 1966 PNEUMOCOCCAL (1 - PCV) PNEUMOCOCCAL (1 - PCV) [facility] Start: 1965 COVID-19 VACCINE (#1) COVID-19 VACCINE (#1) [facility] APC RESISTANCE APC RESISTANCE L ab Routine Acute deep vein thrombosis (DVT) of distal end of left lower extremity ([facility]) 12/28/2021 2:[address] [facility] Work Phone: aPTT in Platelet poo r plasma by Coagulation assay ACTIVATED PTT Lab Routine Acute deep vein thrombosis (DVT) of distal end of left lower extremity ([facility]) 12/28/2021 2:[address] [facility] Work Phone: B 2 GPI IGG & IGM B 2 GPI IGG & IGM Lab Routine Acute deep vein thrombosis (DVT) of distal end of left lower extremity ([facility]) 12/28/2021 2:[address] [facility] Work Phone: Bacteria identified in Unspecified specimen by Aerobe culture [facility] Bacteria identified in Unspecified specimen by Anaerobe culture [facility] BETA 2 GLYCOPROTEIN, IGG BETA 2 GLYCOPROTEIN, IGG Lab Routine Acute deep vein thrombosis (DVT) of distal end of left lower extremity ([facility]) 12/28/2021 2:[address] [facility] Work Phone: BETA 2 GLYCOPROTEIN, IGM BETA 2 GLYCOPROTEIN, IGM Lab Routine Acute deep vein thrombosis (DVT) of distal end of left lower extremity ([facility]) 12/28/2021 2:[address] [facility] Work Phone: CALCIUM, 24 HR URINE CALCIUM, 24 HR URINE Lab Routine Closed fracture of hip, left, with delayed healing, subsequent encounter High serum parathyroid hormone (PTH) Other hyperparathyroidism (HCC) Osteoporosis, unspecified osteoporosis type, unspecified pathological fracture presence Ordered: 02/08/2024 [facility] Comment on above: Ordered: 02/08/2024 Cardiolipin IgA Ab [Units/volume] in Serum by Immunoassay CARDIOLIPIN IGA ABS Lab Routine Acute deep vein thrombosis (DVT) of distal end of left lower extremity ([facility]) 12/28/2021 2:[address] [facility] Work Phone: CARDIOLIPIN IGG ABS CARDIOLIPIN IGG ABS Lab Routine Acute deep vein thrombosis (DVT) of distal end of left lower extremity ([facility]) 12/28/2021 2:[address] [facility] Work Phone: Cardiolipin IgG and IgM panel - Serum ANTI-CARDIOLIPIN AB Lab Routine Acute deep vein thrombosis (DVT) of distal end of left lower extremity ([facility]) 12/28/2021 2:[address] [facility] Work Phone: CARDIOLIPIN IGM ABS CARDIOLIPIN IGM ABS Lab Routine Acute deep vein thrombosis (DVT) of distal end of left lower extremity ([facility]) 12/28/2021 2:[address] [facility] Work Phone: End: 12-17-2023 CARDIOPULMONARY EXERCISE TEST CARDIOPULMONARY EXERCISE TEST PFT Routine SOB (shortness of breath) 1 Occurrences starting 11/17/2022 until 12/17/2023 [facility] Work Phone: Comment on above: 1 Occurrences starting 11/17/2022 until 12/17/2023 Citrate [Mass/time] in 24 hour Urine CITRATE 24 HR URINE Lab Routine Closed fracture of hip, left, with delayed healing, subsequent encounter High serum parathyroid hormone (PTH) Other hyperparathyroidism (HCC) Osteoporosis, unspecified osteoporosis type, unspecified pathological fracture presence Ordered: 02/08/2024 [facility] Comment on above: Ordered: 02/08/2024 CREATININE, 24 HOUR URINE CREATININE, 24 HOUR URINE Lab Routine Closed fracture of hip, left, with delayed healing, subsequent encounter High serum parathyroid hormone (PTH) Other hyperparathyroidism (HCC) Osteoporosis, unspecified osteoporosis type, unspecified pathological fracture presence Ordered: 02/08/2024 [facility] Comment on above: Ordered: 02/08/2024 End: 03-09-2025 DXA-FOREARM SKELETON DXA-FOREARM SKELETON Radiology Routine Closed fracture of hip, left, with delayed healing, subsequent encounter High serum parathyroid hormone (PTH) 1 Occurrences starting 02/08/2024 until 03/09/2025 [facility] Work Phone: Comment on above: 1 Occurrences starting 02/08/2024 until 03/09/2025 End: 08-17-2023 ECG COMPLETE ECG COMPLETE ECG Routine POTS (postural orthostatic tachycardia syndrome) 1 Occurrences starting 08/16/2022 until 08/17/2023 [facility] Work Phone: Comment on above: 1 Occurrences starting 08/16/2022 until 08/17/2023 End: 08-17-2023 Echocardiography ECHO Cardiology Routine Exertional dyspnea 1 Occurrences starting 08/16/2022 until 08/17/2023 [facility] Work Phone: Comment on above: 1 Occurrences starting 08/16/2022 until 08/17/2023 End: 10-07-2023 EMG(NEURO/NI) EMG(NEURO/NI) EMG Routine Disturbance of skin sensation 1 Occurrences starting 10/06/2022 until 10/07/2023 [facility] Work Phone: Comment on above: 1 Occurrences starting 10/06/2022 until 10/07/2023 F2 gene mutations fo und [Identifier] in Blood or Tissue by Molecular genetics method Nominal PROTHROMBIN GENE PCR Lab Routine Acute deep vein thrombosis (DVT) of distal end of left lower extremity (HCC) 12/28/2021 2:[address] [facility] Work Phone: FOUR EXTRA LT BLUE M AN COAG TUBES FOUR EXTRA LT BLUE MAN COAG TUBES Lab Routine Acute deep vein thrombosis (DVT) of distal end of left lower extremity (HCC) 12/28/2021 2:[address] [facility] Work Phone: LUPUS ANTICOAG PL LUPUS ANTICOAG PL Lab Routine Acute deep vein thrombosis (DVT) of distal end of left lower extremity (HCC) 12/28/2021 2:[address] [facility] Work Phone: LUPUS PANEL LUPUS PANEL Lab Routine Acute deep vein thrombosis (DVT) of distal end of left lower extremity (HCC) 12/28/2021 2:[address] [facility] Work Phone: End: 11-16-2023 MRI CARDIAC MORPH FUNC WO/W IVCON MRI CARDIAC MORPH FUNC WO/W IVCON Radiology Routine Dilated cardiomyopathy (HCC) 1 Occurrences starting 10/17/2022 until 11/16/2023 [facility] Work Phone: Comment on above: 1 Occurrences starting 10/17/2022 until 11/16/2023 End: 11-16-2023 MRI CARDIAC VELOCITY FLOW MAP MRI CARDIAC VELOCITY FLOW MAP Radiology Routine Dilated cardiomyopathy (HCC) 1 Occurrences starting 10/17/2022 until 11/16/2023 [facility] Work Phone: Comment on above: 1 Occurrences starting 10/17/2022 until 11/16/2023 OUTSIDE VENDOR CARDI AC OUTPATIENT EXTENDED RHYTHM RECORDING (WITHOUT TELEMETRY) OUTSIDE VENDOR CARDIAC OUTPATIENT EXTENDED RHYTHM RECORDING (WITHOUT TELEMETRY) Holter Routine Lightheadedness POTS (postural orthostatic tachycardia syndrome) Exertional dyspnea Ordered: 08/16/2022 [facility] Work Phone: Comment on above: Ordered: 08/16/2022 Oxalate [Mass/time] in 24 hour Urine OXALATE 24 HR URINE Lab Routine Closed fracture of hip, left, with delayed healing, subsequent encounter High serum parathyroid hormone (PTH) Other hyperparathyroidism (HCC) Osteoporosis, unspecified osteoporosis type, unspecified pathological fracture presence Ordered: 02/08/2024 [facility] Comment on above: Ordered: 02/08/2024 Patient referral [facility] Work Phone: PT panel - Platelet poor plasma by Coagulation assay PROTHROMBIN TIME/PT Lab Routine Acute deep vein thrombosis (DVT) of distal end of left lower extremity (HCC) 12/28/2021 2:[address] [facility] Work Phone: End: 09-15-2023 Pulmonary ventilation & perfusion imaging NM LUNG VENT / PERF VQ Radiology Routine Exertional dyspnea Other secondary pulmonary hypertension (HCC) 1 Occurrences starting 08/16/2022 until 09/15/2023 [facility] Work Phone: Comment on above: 1 Occurrences starting 08/16/2022 until 09/15/2023 Sodium [Moles/time] in 24 hour Urine SODIUM 24 HR URINE Lab Routine Closed fracture of hip, left, with delayed healing, subsequent encounter High serum parathyroid hormone (PTH) Other hyperparathyroidism (HCC) Osteoporosis, unspecified osteoporosis type, unspecified pathological fracture presence Ordered: 02/08/2024 [facility] Comment on above: Ordered: 02/08/2024 STONE PANEL URINE STONE PANEL UR INE Lab Routine Closed fracture of hip, left, with delayed healing, subsequent encounter High serum parathyroid hormone (PTH) Other hyperparathyroidism (HCC) Osteoporosis, unspecified osteoporosis type, unspecified pathological fracture presence Ordered: 02/08/2024 [facility] Comment on above: Ordered: 02/08/2024 Urate [Mass/time] in 24 hour Urine URIC ACID 24 HR UR Lab Routine Closed fracture of hip, left, with delayed healing, subsequent encounter High serum parathyroid hormone (PTH) Other hyperparathyroidism (HCC) Osteoporosis, unspecified osteoporosis type, unspecified pathological fracture presence Ordered: 02/08/2024 [facility] Comment on above: Ordered: 02/08/2024 [facility] XR Pelvis and Hip - left AP and Lateral frog XR HIP GENERAL 3V PELV/AP/LAT LEFT Radiology Routine Pain 09/27/2023 9:[address] [facility] Work Phone: End: 12-27-2024 XR Pelvis and Hip - left AP and Lateral frog XR HIP GENERAL 3V PELV/AP/LAT LEFT Radiology Routine Closed fracture of hip, left, with delayed healing, subsequent encounter 1 Occurrences starting 11/28/2023 until 12/27/2024 [facility] Work Phone: Comment on above: 1 Occurrences starting 11/28/2023 until 12/27/2024 XR Pelvis and Hip - left AP and Lateral frog XR HIP GENERAL 3V PELV/AP/LAT LEFT Radiology Routine Closed fracture of hip, left, with delayed healing, subsequent encounter 11/29/2023 9:03 AM EDT [facility] Immunizations Immunization Date Immunization Notes Care Provider Fa cili 03-13-2022 COVID-19 Pfizer (Pediatric) Silvana Lundberg Other [facility] 03-13-2022 influenza virus vaccine, split virus (incl. purified surface antigen) Silvana Lundberg Other [facility] Other 03-13-2022 influenza virus vaccine, unspecified formulation Jerrod BELL [facility] 03-13-2022 SARS-CoV-2 (COVID-19 ) [id number] Jerrod BELL [facility] 05-08-2021 SARS-CoV-2 (COVID-19 ) mRNA BNT-162b2 vax Jerrod BELL [facility] 03-12-2021 influenza virus vaccine, split virus (incl. purified surface antigen) Silvana Lundberg Other [facility] Other 03-12-2021 influenza virus vaccine, unspecified formulation Jerrod BELL [facility] 03-12-2021 influenza, injectabl e, quadrivalent, preservative free Merly Marti MD Work Phone: [facility] 08-06-2020 COVID-19 mRNA,[id number] b2 (Pfizer) Silvana Lundberg Work Phone: [facility] 07-22-2020 COVID-19 vaccine (NORTH) Merly Marti MD Work Phone: [facility] 07-13-2020 COVID-19 mRNA,[id number] b2 (Pfizer) Silvana Lundberg Work Phone: [facility] 06-21-2020 COVID-19 vaccine (NORTH) Merly Marti MD Work Phone: [facility] 12-31-2019 influenza virus vaccine, split virus (incl. purified surface antigen) Silvana Lundberg Other [facility] Other 12-31-2019 influenza virus vaccine, unspecified formulation PHYSICIAN NO [facility] 01-29-2019 influenza virus vaccine, split virus (incl. purified surface antigen) Silvana Lundberg Other [facility] Other 01-29-2019 influenza virus vaccine, unspecified formulation PHYSICIAN [facility] 01-11-2015 tetanus and diphther ia toxoids, adsorbed, preservative free, for adult use (5 Lf of tetanus toxoid and 2 Lf of diphtheria toxoid) Silvana Lundberg Other [facility] 08-13-2014 pneumococcal polysaccharide vaccine, 23 elayne Marti MD Work Phone: [facility] NEGATED: Highlighted row has not occurred!05-04-2020 pneumococcal polysaccharide vaccine, 23 valent Silvana Lundberg Other [facility] Other Payers Date Payer Category Payer Medicare HUMANA MEDICARE HUMANA MEDICARE PPO [id number] 2021-Present [phone] [address] [place] [address] PPO [id number] 2021 Medicare HUMANA MEDICARE HU[employer]NA MEDICARE PPO [id number] 2021-Present [phone] [address] [address] [place] [address] PPO [id number] 1960 Unknown [id number] 2.16.840.1.876669.3.579.2.1 73 1960 Unknown [id number] 2.16.840.1.698040.3.579.2.5 93 1960 Unknown [id number] 2.16.840.1.700384.3.579.2.5 93 1960 Unknown [id number] 2.16.840.1.327275.3.579.2.5 1960 Unknown [id number] 2.16.840.1.242059.3.579.2.5 1960 Unknown [id number] 2.16.840.1.693072.3.579.2.5 1960 Unknown [id number] 2.16.840.1.348378.3.579.2.5 1960 Unknown [id number] 2.16.840.1.438339.3.579.2.5 1960 Unknown [id number] 2.16.840.1.684576.3.579.2.5 1960 Unknown [id number] 2.16.840.1.155199.3.579.2.5 1960 Unknown [id number] 2.16.840.1.229343.3.579.2.5 1960 Unknown [id number] 2.16.840.1.953088.3.579.2.5 1960 Unknown [id number] 2.16.840.1.876883.3.579.2.5 1960 Unknown [id number] 2.16.840.1.021784.3.579.2.5 1960 Unknown [id number] 2.16.840.1.213951.3.579.2.5 1960 Unknown [id number] 2.16.840.1.074412.3.579.2.5 1960 Unknown [id number] 2.16.840.1.997584.3.579.2.5 1960 Unknown [id number] 2.16.840.1.622921.3.579.2.5 93 1960 Unknown [id number] 2.16.840.1.415585.3.579.2.1 259 1960 Unknown [id number] 2.16.840.1.466096.3.579.2.1 259 1960 Unknown [id number] 2.16.840.1.670674.3.579.2.7 27 1960 Unknown [id number] 2.16.840.1.100195.3.579.2.7 27 1960 Unknown [id number] 2.16.840.1.377682.3.579.2.7 27 1960 Unknown [id number] 2.16.840.1.178136.3.579.2.7 27 1959 Private Health Insurance [id number] Self-pay [id number] Medicare [id number] Unknown [id number] Unknown [id number] Unknown [id number] 2.16.840.1.206141.3.579.2.5 93 Unknown [id number] 2.16.840.1.586527.3.579.2.5 31 Unknown [id number] 2.16.840.1.920839.3.579.2.5 31 Unknown [id number] 2.16.840.1.129422.3.579.2.5 31 Unknown [id number] 2.16.840.1.920511.3.579.2.5 31 Social History Date Type Detail [facility] Start: 1960 Sex Assigned At Male [facility] Start: 12-28-2021 End: 02-08-2024 Tobacco smoking status NHIS Ex-smoker [facility] History of tobacco use Cigarette Smoker [facility] Start: 09-16-2021 End: 02-08-2024 Alcohol intake Current non-drinker of alcohol (finding) [facility] Start: 1960 Sex Assigned At Not on file [facility] Start: 09-11-2021 End: 10-16-2022 Exposure to SARS-CoV-2 (event) Not sure [facility] History of tobacco use Current smoker [facility] Start: 12-28-2021 End: 08-29-2022 Cigarettes smoked current (pack per day) - Reported 2 [facility] History of tobacco use Passive smoker [facility] Start: 12-28-2021 End: 02-08-2024 Tobacco use and exposure Smokeless tobacco non-user [facility] Start: 12-28-2021 Tobacco Comment quit [address] [place] [address] Start: 08-29-2022 End: 11-17-2022 Sex Assigned At Male [facility] Tobacco smoking stat [facility] Tobacco smoking consumption unknown [facility] [employer] Phone: Adult Depression Screening Assessment 2 [facility] Start: 07-06-2023 End: 07-06-2023 Tobacco smoking status NHIS Never smoked tobacco (finding) [facility] Start: 05-13-2024 Sex Male (finding) [facility] Medical Equipment Procedure Code Equipment Code Equipment Origin al Text Equipment Identifier Dates Graft Infuse 18m m Large Ii Bovine Collagen Rhbmp-2 26mm Bone Absorbable - [id number] Start: 09-01-2016 Connector Chika 0d Small Titanium Andrew Spine - [id number] Start: 09-01-2016 Substitute Mastergraft Bone Graft Matrix Block Extension Void Filler 10ml - [id number] Start: 09-01-2016 Deu-Hu-N-Kind Im plant - [id number] Start: 12-01-2015 Comment on above: Description: g7 osse eduardo acetabular shell 4 hole cementless Dcr-Ec-U-Kind Im plant - [id number] Start: 12-01-2015 Comment on above: Description: g7 acet abular screw Dzy-Ct-W-Kind Im plant - [id number] Start: 12-01-2015 Comment on above: Description: g7 acet abular liner neutral Jco-Aj-P-Kind Im plant - [id number] Start: 12-01-2015 Comment on above: Description: taperlo c complete primary femoral porous coated stem reduced distal high offset type 1 taper Cage Spnl Tri 8x 23mm 6d 11mm - [id number] Start: 09-01-2016 Screw Chika 3 Mali nium Set Malaika Spine - [id number] Start: 09-01-2016 Head G7 40mm Bio lox Delta Femoral Hip - [id number] Start: 12-01-2015 Comment on above: Description: ceramic head Sleeve G7 -6mm O ffset Taper Biolox Delta Option Titanium Centering Type 1 - [id number] Start: 12-01-2015 Comment on above: Description: taper a dapter Andrew Chika 3 6mm 48 0mm Spinal - [id number] Start: 09-01-2016 Screw Chika 3 7.5m m Titanium 40mm Bone Polyaxial Spine Thoracolumbar - [id number] Start: 09-01-2016 Screw Chika 3 7.5m m Titanium 45mm Bone Polyaxial Spine Thoracolumbar - [id number] Start: 09-01-2016 Mesa Chika 8.5mm 7 0mm Spinal Polyaxial Ilium - [id number] Start: 09-01-2016 Screw Chika 3 6.5m m Titanium 45mm Bone Polyaxial Spine Thoracolumbar - [id number] Start: 09-01-2016 USE WITH TERIPAR ATIDE PENS ONCE TIMES DAILY [id number] Start: 03-31-2024 Goals Date Patient Goal Desired Activity /State Functional Status Date Assessment Result Facility 01-04-2024 Functional Status N/A [facility] 12-25-2023 Functional Status N/A [facility] 07-16-2023 Functional Status N/A [facility] 05-01-2022 Functional Status N/A [facility] Clinical Notes 12-09-2016 to 04-07-2024 Telephone Encounter - Alysha Emanuel MD - 04/07/2024 4:41 PM ESTTelephone Encounter - Alysha Emanuel MD - 04/07/2024 4:41 PM ESTTelephone Encounter - Rena Dacosta - 04/07/2024 3:34 PM EST Note Date & Type Note Facility 04-07-2024 Telephone encounter Note Resending rx Alysha Emanuel MD Dept of Endocrinology [facility] 04-07-2024 Miscellaneous Notes Resending rx Alysha Emanuel MD Dept of Endocrinology Patients insurance called in states Teriparatide 20 mcg/dose (600mcg/2.4mL is not covered by patients insurance. They are recommending alternate medications: Forteo, Tymols, Alendronate Sodium. [employer] can be reached at [phone]. Rena Munson [employer] [address] [place] [address] documented in this encounter [facility] 04-07-2024 Telephone encounter Note Patients insurance called in states Teriparatide 20 mcg/dose (600mcg/2.4mL is not covered by patients insurance. They are recommending alternate medications: Forteo, Tymols, Alendronate Sodium. [employer] can be reached at [phone]. Rena Munson [employer] [address] [place] [address] [facility] 02-08-2024 Note HNO ID: [id number] Author: ALYSHA EMANUEL MD Service: ? Author Type: Physician Type: Progress Notes Filed: 02/08/2024 11:40 Note Text: Endocrine consult note Mr. Felix is a 63 year old male here today [place] [id number] [facility] [id number] for evaluation, management, and treatment of the following issues: bone health My final recommendations will be communicated back to the requesting physician by way of shared medical record or letter. Coming from [place], [place] Mr. Felix is here to discuss bone health. Pmhx significant for prior left hip fracture in 01/2023 after tripping on bathroom rug. Pmhx signficant for ankylosing spondylitis since age 19 yrs. Took steroids for 10 years while in 20's for the . There have been other fractures (ankles, fingers, right hand) but were childhood in setting of football, bicycling, etc. Some height loss but four back surgeries complicated by infection at operative site - hospitalized for 9.5 weeks. No high risk meds now. 6'4 baseline height Height today- 6'1 but had 4 back surgeries Some decrease in sex drive. One kidney stone- 2004 Keen to prevent additional fractures. Due for DXA but can only get it checked in forearm. Patient is not taking calcium and vitamin D. Lot of soda - 2 cans/day There is no current or recent tobacco use and no alcohol use. There is no corticosteroid use now, no lithium, and no thiazides. There is history of hyperparathyroidism from D deficiency. No prior cancer, radiation exposure, or family history of osteoporosis, calcium, or bone disorders. PAST MEDICAL HISTORY Diagnosis Date Ankylosing spondylitis (HCC) Dr Hodges; age 19 yrs Arthritis Back pain four back surgeries Cardiomyopathy ([facility]) Nonischemic Congestive Cerebrovascular small vessel disease 08/24/2016 On ASA DVT (deep venous thrombosis) ([facility]) Esophageal reflux Former smoker Kidney stones Major depressive disorder with single episode, in remission ([facility]) 08/24/2016 Morbid obesity with BMI of 40.0-44.9, adult ([facility]) Neuropathy Obstructive sleep apnea syndrome, severe On auto-CPAP - sleep study done on 07/10/16 Pneumonia POTS (postural orthostatic tachycardia syndrome) PAST SURGICAL HISTORY Procedure Laterality Date BACK SURGERY HX 2013 BACK SURGERY HX 2015 HIP SURGERY HX Left 01/2023 MIDLINE INSERTION/CONSULT 09/05/2016 NOSE SURGERY HX sinus surg Dr Rojo PAST SURGICAL HISTORY OF 1986 R hand surgery PAST SURGICAL HISTORY OF 2001 R finger surgery PICC LINE INSERT/CONSULT 09/16/2016 TOTAL HIP JOINT REPLACEMENT Right Current Outpatient Medications on File Prior to Visit Medication Sig ARIPiprazole (ABILIFY) 5 mg tablet Take 5 mg by mouth daily at bedtime. oxyCODONE-acetaminophen (PERCOCET) 5-325 mg tablet three times a day as needed. metoprolol succinate ER (TOPROL XL) 50 mg 24 hr tablet Take 50 mg by mouth once daily. venlafaxine ER (EFFEXOR XR) 75 mg 24 hr capsule Take 150 mg by mouth once daily. spironolactone (ALDACTONE) 25 mg tablet Take 17.5 mg by mouth once daily. ASPIRIN ORAL [...] mg by mouth one time a week. (Patient not taking: Reported on 09/27/2023) folic acid 1 mg tablet Take 1 mg by mouth once daily. omeprazole (PRILOSEC) 20 mg capsule Take 20 mg by mouth once daily. DULoxetine (CYMBALTA) 60 mg capsule Take 60 mg by mouth twice daily. No current facility-administered medications on file prior to visit. ALLERGIES Allergen Reactions Morphine Intolerance Patient thinks that with previous surgery he had a mental psychotic reaction with the combination of Lyrica and Morphine. Lisinopril Unknown Losartan Unknown FAMILY HISTORY Problem Relation Age of Onset Breast Cancer Mother Stroke Mother other (Migraine) Mother may have had migraine HAs Emphysema Father Stroke Father Arthritis Father other (Negative) Father multiple sclerosis REVIEW OF SYSTEMS Answers submitted by the patient for this visit: Endocrine Review of Systems (Submitted on 02/04/2024) Fatigue: Yes Night sweats: Yes Skin Color Changes: No Post-Nasal Drip: Yes Thyroid Pain (lower neck): No Trouble Swallowing: No Vision Disturbance: Yes Chest pain: Yes Leg Swelling: Yes Blood Clots?: Yes Difficulty Breathing?: Yes Heartburn: Yes Nausea: No Vomiting: No Diarrhea: Yes Constipation: No Abdominal pain: No Bone Pain?: Yes Muscle aches: Yes Muscle weakness: Yes Joint pain or stiffness: Yes Headaches: No Dizziness: No Numbn (more content not included)... [facility] 02-08-2024 History of Present illness Narrative Endocrine consult note Mr. Felix is a 63 year old male [place] the [place] [id number] [address] [facility] [id number] for evaluation, management, and treatment of the following issues: bone health My final recommendations will be communicated back to the requesting physician by way of shared medical record or letter. Coming from [place], [place] Mr. Felix is here to discuss bone health. Pmhx significant for prior left hip fracture in 01/2023 after tripping on bathroom rug. Pmhx signficant for ankylosing spondylitis since age 19 yrs. Took steroids for 10 years while in for the . There have been other fractures (ankles, fingers, right hand) but were childhood in setting of football, bicycling, etc. Some height loss but four back surgeries complicated by infection at operative site - hospitalized for 9.5 weeks. No high risk meds now. 6'4 baseline height Height today- 6'1 but had 4 back surgeries Some decrease in sex drive. One kidney stone- 2004 Keen to prevent additional fractures. Due for DXA but can only get it checked in forearm. Patient is not taking calcium and vitamin D. Lot of soda - 2 cans/day There is no current or recent tobacco use and no alcohol use. There is no corticosteroid use now, no lithium, and no thiazides. There is history of hyperparathyroidism from D deficiency. No prior cancer, radiation exposure, or family history of osteoporosis, calcium, or bone disorders. PAST MEDICAL HISTORY Diagnosis Date Ankylosing spondylitis (HCC) Dr Hodges; age 19 yrs Arthritis Back pain four back surgeries Cardiomyopathy (HCC) Nonischemic Congestive Cerebrovascular small vessel disease 08/24/2016 On ASA DVT (deep venous thrombosis) ([facility]) Esophageal reflux Former smoker Kidney stones Major depressive disorder with single episode, in remission ([facility]) 08/24/2016 Morbid obesity with BMI of 40.0-44.9, adult ([facility]) Neuropathy Obstructive sleep apnea syndrome, severe On auto-CPAP - sleep study done on 07/10/16 Pneumonia POTS (postural orthostatic tachycardia syndrome) PAST SURGICAL HISTORY Procedure Laterality Date BACK SURGERY HX 2013 BACK SURGERY HX 2015 HIP SURGERY HX Left 01/2023 MIDLINE INSERTION/CONSULT 09/05/2016 NOSE SURGERY HX sinus surg Dr Rojo PAST SURGICAL HISTORY OF 1986 R hand surgery PAST SURGICAL HISTORY OF 2001 R finger surgery PICC LINE INSERT/CONSULT 09/16/2016 TOTAL HIP JOINT REPLACEMENT Right Current Outpatient Medications on File Prior to Visit Medication Sig ARIPiprazole (ABILIFY) 5 mg tablet Take 5 mg by mouth daily at bedtime. oxyCODONE-acetaminophen (PERCOCET) 5-325 mg tablet three times a day as needed. metoprolol succinate ER (TOPROL XL) 50 mg 24 hr tablet Take 50 mg by mouth once daily. venlafaxine ER (EFFEXOR XR) 75 mg 24 hr capsule Take 150 mg by mouth once daily. spironolactone (ALDACTONE) 25 mg tablet Take 17.5 mg by mouth once daily. ASPIRIN ORAL [...] mg by mouth one time a week. (Patient not taking: Reported on 09/27/2023) folic acid 1 mg tablet Take 1 mg by mouth once daily. omeprazole (PRILOSEC) 20 mg capsule Take 20 mg by mouth once daily. DULoxetine (CYMBALTA) 60 mg capsule Take 60 mg by mouth twice daily. No current facility-administered medications on file prior to visit. ALLERGIES Allergen Reactions Morphine Intolerance Patient thinks that with previous surgery he had a mental psychotic reaction with the combination of Lyrica and Morphine. Lisinopril Unknown Losartan Unknown FAMILY HISTORY Problem Relation Age of Onset Breast Cancer Mother Stroke Mother other (Migraine) Mother may have had migraine HAs Emphysema Father Stroke Father Arthritis Father other (Negative) Father multiple sclerosis REVIEW OF SYSTEMS Answers submitted by the patient for this visit: Endocrine Review of Systems (Submitted on 02/04/2024) Fatigue: Yes Night sweats: Yes Skin Color Changes: No Post-Nasal Drip: Yes Thyroid Pain (lower neck): No Trouble Swallowing: No Vision Disturbance: Yes Chest pain: Yes Leg Swelling: Yes Blood Clots?: Yes Difficulty Breathing?: Yes Heartburn: Yes Nausea: No Vomiting: No Diarrhea: Yes Constipation: No Abdominal pain: No Bone Pain?: Yes Muscle aches: Yes Muscle weakness: Yes Joint pain or stiffness: Yes Headaches: No Dizziness: No Numbness?: Yes Urgency to Urinate?: Yes Increased Urination: Yes Flushing: No Hot Flashes?: No Increased Thirst: Yes Change in Body Hair?: No Cold Intolerance: Yes Heat Intolerance: No Raising granddaughter born in 2010. Lives with and two dogs. Physical Exam: BP 124/80 Pulse 73 Ht 187 cm (6' 1.62 ) Wt (!) 137.5 kg (303 lb 2.1 oz) BMI 39.32 kg/m Body mass index is 39.32 kg/m . General: WNWD, NAD Eyes: conjunctivae are pink, and moist. No exopthalmos, lag, or stare ENT/Mouth: dentition good Neck: The thyroid is nonenlarged, nontender, no adenopthy Lymphatic: no cervical or supraclavicular adenopathy Cardiovascular: regular rate, no murmur Respiratory: full sounds bilaterally with normal expansion Musculoskeletal: normal muscle mass, no lower extremity swelling Skin: normal, no rashes present Neurologic: DTR s normal with normal recovery phase, PERRL, EOMI Pyschiatric: mood and affect are normal Examination of Back: Profile -Shoulder height position: Normal -Dorsal kyphosis TS: normal -Lumbar curve: normal -Scoliosis: none appreciated Healed incision Lot of balance issues DATA REVIEW: No DXA TSH Date Value Ref Range Status 09/27/2023 0.957 0.270 - 4.200 mIU/L Final Latest Ref Rng 09/27/2023 11/07/2023 Protein, Total 6.3 - 8.0 g/dL 6.8 5.9 (L) Albumin 3.9 - 4.9 g/dL 3.6 (L) Calcium 8.5 - 10.2 mg/dL 9.2 Bilirubin, Total 0.2 - 1.3 mg/dL 0.3 Alkaline Phosphatase 38 - 113 U/L 86 AST 14 - 40 U/L 28 ALT 10 - 54 U/L 35 Glucose 74 - 99 mg/dL 103 (H) BUN 9 - 24 mg/dL 12 Creatinine 0.73 - 1.22 mg/dL 1.13 Sodium 136 - 144 mmol/L 142 Potassium 3.7 - 5.1 mmol/L 4.8 Chloride 98 - 107 mmol/L 104 CO2 22 - 30 mmol/L 25 Anion Gap 8 - 15 mmol/L 13 eGFR >=60 mL/min/1.73m 73 Albumin 3.43 - 5.41 g/dL 3.18 (L) Alpha 1 Globulin 0.18 - 0.43 g/dL 0.40 Alpha 2 Globulin 0.42 - 0.98 g/dL 0.97 Beta Globulin 0.61 - 1.17 g/dL 0.76 Gamma Globulin 0.53 - 1.51 g/dL 0.59 Interpretation (Prot Electro) No definitive M protein is identified on protein electrophoresis. No definitive M protein is identified on protein electrophoresis. M-Protein Location -- M-Protein Concentration <=0.00 g/dL 0.00 SPE Staff Review Reviewed by Kaylyn Herrera MD IgG 700 - 1,600 mg/dL 793 IgA 70 - 400 mg/dL 147 IgM 40 - 230 mg/dL 26 (L) [place] Free, Serum 3.3 - 19.4 mg/L 32.4 (H) Lambda Free, Serum 5.7 - 26.3 mg/L 17.5 K/L Ratio, Serum 0.26 - 1.65 1.85 (H) MPA Result No M protein is identified. No M protein is identified. Staff Review (MPA) Reviewed by Kaylyn Herrera MD PTH, Intact 15 - 65 pg/mL 135 (H) TSH 0.270 - 4.200 mIU/L 0.957 Vitamin D 25 Hydroxy 31.0 - 80.0 ng/mL 19.7 (L) CRP <0.9 mg/dL 0.4 WSR 0 - 15 mm/hr 26 (H) Assessment/plan: In summary, Mr. Felix is a 63 year old male who presents for evaluation of bone fragility. Discussed treatment options. Reviewed denosumab, zoledronic acid, anabolic agents. Will proceed with teriparitide 20 mcg daily subcut after PTH normalizes. Will also check routine osteoporosis labs including stone panel and testosterone. Add calcium citrate 500 mg twice daily with vitamin D 50,000 international unit(s) weekly. Repeat labs in 6 weeks. If PTH is normalized, will start teriparitide. Side effect sheet provided to patient from [facility] as well for above medication. Side effects reviewed with patient today. Reviewed risk of hypercalcemia/hypercalciuria, osteosarcoma black box warnings, lightheadedness with drug Patient comfortable with shots and overall plan. . Exercise - limited with POTS Not interested in PT(already did it) Re; obesity- BMI 40 Weight- 303 lbs Stable weight for past 10 yrs 2 cans Mountain Dew per day Discussed to wean off and do chair exercises. Return 4 months I did update Dr Hodges's office at [phone] with status of medication. I left . Thank you for allowing me to participate in the care of Elena Felix. Please contact me with any questions or concerns. Alysha Emanuel MD Dept of Endocrinology February 08, 2024 documented in this encounter [facility] 02-08-2024 Instructions Alysha Emanuel MD - 02/08/2024 9:46 AM EDT It s very important to do the 24 hour urine collection correctly: 1) Keep jug on ice or in fridge while collecting 2) Plan to turn the jug in on the day it is completed or within 3 days of completion 3) Right before you start the collection (e.g. 6:59am), urinate into the toilet, not into the jug 4) Once you start the collection (e.g. 7:00am), all of your urine goes into the jug. If you forget and go into the toilet, dump out the urine and start the test over the next chance you have. 5) Collect ALL of your urine for 24 hours, no more and no less. If you think you will fill up the jug you were provided before the 24-hour alicia, you will need another jug. If you stop before the 24-hour period or collect urine for longer than 24 hours, the test will be completely unhelpful. 6) Right before you finish the collection (e.g. 6:59 am the next day), urinate into the jug. 7) Turn in the jug within three days of when you collect it (keep in refrigerator until then). ---- BONE MINERAL DENSITY PATIENT INSTRUCTIONS ======= Bone mineral density testing measures the amount of calcium in certain parts of your bones. This information determines how strong your bones are. The test is used to detect osteoporosis, a disease in which the bone's mineral content and density are low, increasing a person's risk of fractures. The lumbar spine (lower back) and the hip are the skeletal sites usually examined. For the test, remember that: 1. You cannot take this test if you are . 2. Eat a normal diet on the day of the test. 3. Take your medications as you normally would. 4. DO NOT take calcium supplements (such as Tums) for 24 hours before the test. 5. On the day of the test, leave valuables (jewelry or credit cards) at home. 6. The test should be performed prior to oral, rectal or IV contrast studies, or at least 7 days after any of these studies. For the test, you may be asked to wear a hospital gown. You will lie on your back, on a padded table, in a comfortable position. Generally, you can resume your usual activities immediately. Start calcium/D 500 mg twice daily with D- please start 50,000 international unit(s) WEEKLY of vitamin D Labs in 6 weeks Once PTH is normal (6 weeks), I will order bone medication- forteo documented in this encounter [facility] 01-04-2024 Hospital Discharge instructions Patient Education 01/04/2024 11:25:15 Excision of Skin Lesions Excision of Skin Lesions Excision of a skin lesion is the removal of a section of skin by making small incisions in the skin. Through this process, the lesion is completely removed. This procedure is often done to treat or prevent cancer or infection. It may also be done to improve cosmetic appearance. You may have this procedure to remove: Cancerous (malignant) growths, such as basal cell carcinoma, squamous cell carcinoma, or melanoma. Noncancerous (benign) growths, such as a cyst or lipoma. Growths, such as moles or skin tags, which may be removed for cosmetic reasons. Various excision or surgical techniques may be used depending on your condition, the location of the lesion, and your overall health. Tell your health care provider about: Any allergies you have. All medicines you are taking, including vitamins, herbs, eye drops, creams, and rdds-nqx-[id number] medicines. Any problems you or family members have had with anesthetic medicines. Any bleeding problems you have. Any surgeries you have had. Any medical conditions you have. Whether you are or may be . What are the risks? Generally, this is a safe procedure. However, problems may occur, including: Bleeding. Infection. Scarring. Recurrence of the cyst, lipoma, or cancer. Allergic reaction to anesthetics, surgical materials, or ointments. Damage to nerves, blood vessels, muscles, or other structures. What happens before the procedure? Medicines Ask your health care provider about: Changing or stopping your regular medicines. This is especially important if you are taking diabetes medicines or blood thinners. Taking medicines such as aspirin and ibuprofen. These medicines can thin your blood. Do not take these medicines unless your health care provider tells you to take them. Taking mntr-ueg-flzmweq medicines, vitamins, herbs, and supplements. General instructions Do not use any products that contain nicotine or tobacco. These products include cigarettes, chewing tobacco, and vaping devices, such as e-cigarettes. If you need help quitting, ask your health care provider. Follow instructions from your health care provider about eating or drinking restrictions. Ask your health care provider: ?How your surgery site will be marked. ?What steps will be taken to help prevent infection. These steps may include: ?Removing hair at the surgery site. ?Washing skin with a germ-killing soap. ?Taking antibiotic medicine. Ask your health care provider if you will need someone to take you home from the hospital or clinic after the procedure. What happens during the procedure? You will be given a medicine to numb the area (local anesthetic). Your health care provider will remove the lesions using one of the following excision techniques. ?Complete surgical excision. This procedure may be done to treat a cancerous growth or a noncancerous cyst or lesion. ?A small scalpel or scissors will be used to gently cut around and under the lesion until it is completely removed. ?If bleeding occurs, it will be stopped with a device that delivers heat (electrocautery). ?The edges of the wound may be stitched (sutured) together. ?A bandage (dressing) will be applied. ?Samples will be sent to a lab for testing. ?Excision of a cyst. ?An incision will be made on the cyst. ?The entire cyst will be removed through the incision. ?The incision may be closed with sutures. ?Shave excision. This may be done to remove a mole or other small growths. ?A small blade or scalpel will be used to shave off the lesion. ?The wound is usually left to heal on its own without sutures. ?The sample may be sent to a lab for testing. ?Punch excision. This may be done to completely remove a mole or other small growths. ?A small tool that is like a cookie cutter or a hole punch is used to cut a walker river shape out of the skin. ?The outer edges of the skin will be sutured together. ?The sample may be sent to a lab for testing. ?Mohs micrographic surgery. This is usually done to treat skin cancer. This type of excision is mostly used on the face and ears. This procedure is minimally invasive, and it ensures the best cosmetic outcome. ?A scalpel or a loop instrument will be used to remove layers of the lesion until all the abnormal or cancerous tissue has been removed. ?The wound may be sutured, depending on its size. ?The tissue will be checked under a microscope right away. The procedure may vary among health care providers and hospitals. At the end of any of these procedures, antibiotic ointment will be applied as needed. What happens after the procedure? Talk with your health care provider to discuss any test results, treatment options, and if necessary, the need for more tests. Keep all follow-up visits. This is important. Summary Excision of a skin lesion is the removal of a section of skin by making small incisions in the skin. This procedure is often done to treat or prevent skin cancer, remove benign growths, or it may be done to improve cosmetic appearance. Various excision or surgical techniques may be used depending on your condition, the location of the lesion, and your overall health. After the procedure, talk with your health care provider to discuss any test results, treatment options, and if necessary, the need for more tests. Keep all follow-up visits. This is important. This information is not intended to replace advice given to you by your health care provider. Make sure you discuss any questions you have with your health care provider. Document Revised: 11/08/2021 Document Reviewed: 11/08/2021 [employer] Patient Education 2023 [employer]. Follow Up Care 11/06/2023 09:35:32 With:ARABELLA MUNIZ, Jerrod Moya, URL Address: [address] [place], [place] [id number]- When: Unknown [facility] 01-04-2024 Note Patient Education Dermatology Excision of Skin Lesions Excision of a skin lesion is the removal of a section of skin by making small incisions in the skin. Through this process, the lesion is completely removed. This procedure is often done to treat or prevent cancer or infection. It may also be done to improve cosmetic appearance. You may have this procedure to remove: ? Cancerous (malignant) growths, such as basal cell carcinoma, squamous cell carcinoma, or melanoma. ? Noncancerous (benign) growths, such as a cyst or lipoma. ? Growths, such as moles or skin tags, which may be removed for cosmetic reasons. Various excision or surgical techniques may be used depending on your condition, the location of the lesion, and your overall health. Tell your health care provider about: ? Any allergies you have. ? All medicines you are taking, including vitamins, herbs, eye drops, creams, and hakz-wuw-ilbswpj medicines. ? Any problems you or family members have had with anesthetic medicines. ? Any bleeding problems you have. ? Any surgeries you have had. ? Any medical conditions you have. ? Whether you are or may be . What are the risks? Generally, this is a safe procedure. However, problems may occur, including: ? Bleeding. ? Infection. ? Scarring. ? Recurrence of the cyst, lipoma, or cancer. ? Allergic reaction to anesthetics, surgical materials, or ointments. ? Damage to nerves, blood vessels, muscles, or other structures. What happens before the procedure? Medicines Ask your health care provider about: ? Changing or stopping your regular medicines. This is especially important if you are taking diabetes medicines or blood thinners. ? Taking medicines such as aspirin and ibuprofen. These medicines can thin your blood. Do not take these medicines unless your health care provider tells you to take them. ? Taking taoz-jyr-jibcsox medicines, vitamins, herbs, and supplements. General instructions ? Do not use any products that contain nicotine or tobacco. These products include cigarettes, chewing tobacco, and vaping devices, such as e-cigarettes. If you need help quitting, ask your health care provider. ? Follow instructions from your health care provider about eating or drinking restrictions. ? Ask your health care provider: ? How your surgery site will be marked. ? What steps will be taken to help prevent infection. These steps may include: ? Removing hair at the surgery site. ? Washing skin with a germ-killing soap. ? Taking antibiotic medicine. ? Ask your health care provider if you will need someone to take you home from the hospital or clinic after the procedure. What happens during the procedure? ? You will be given a medicine to numb the area (local anesthetic). ? Your health care provider will remove the lesions using one of the following excision techniques. ? Complete surgical excision. This procedure may be done to treat a cancerous growth or a noncancerous cyst or lesion. ? A small scalpel or scissors will be used to gently cut around and under the lesion until it is completely removed. ? If bleeding occurs, it will be stopped with a device that delivers heat (electrocautery). ? The edges of the wound may be stitched (sutured) together. ? A bandage (dressing) will be applied. ? Samples will be sent to a lab for testing. ? Excision of a cyst. ? An incision will be made on the cyst. ? The entire cyst will be removed through the incision. ? The incision may be closed with sutures. ? Shave excision. This may be done to remove a mole or other small growths. ? A small blade or scalpel will be used to shave off the lesion. ? The wound is usually left to heal on its own without sutures. ? The sample may be sent to a lab for testing. ? Punch excision. This may be done to completely remove a mole or other small growths. ? A small tool that is like a cookie cutter or a hole punch is used to cut a walker river shape out of the skin. ? The outer edges of the skin will be sutured together. ? The sample may be sent to a lab for testing. ? Mohs micrographic surgery. This is usually done to treat skin cancer. This type of excision is mostly used on the face and ears. This procedure is minimally invasive, and it ensures the best cosmetic outcome. ? A scalpel or a loop instrument will be used to remove layers of the lesion until all the abnormal or cancerous tissue has been removed. ? The wound may be sutured, depending on its size. ? The tissue will be checked under a microscope right away. The procedure may vary among health care providers and hospitals. At the end of any of these procedures, antibiotic ointment will be applied as needed. What happens after the procedure? ? Talk with your health care provider to discuss any test results, treatment options, and if necessary, the need for more tests. ? Keep all follow-up visits. This is impo (more content not included)... [facility] 12-25-2023 Hospital Discharge instructions Patient Education 12/25/2023 09:59:30 EU - Excision Penile Condyloma Discharge Instructions (CUSTOM) Excision Penile Condyloma After excision may feel some minor discomfort over the treated areas, sometimes described as a stinging feeling much like a minor burn. In the next day or so, small scabs will form. Do not attempt to remove these scabs. The following instructions must be followed closely: -If you need pain pills, start before pain becomes intense. Antibiotics and pain pills are frequently less upsetting to your stomach if you take them with food such as crackers or bread. -If you have excessive or persistent pain, swelling, bleeding, nausea, vomiting, difficulty voiding, or any problems, you should first call your surgeon for advice. If you are unable to contact your surgeon, seek help from a hospital emergency room. If you were given drugs to make you drowsy or pain medication follow these instructions: -You should spend the remainder of the day and evening resting -You should not attempt to walk, including going to the bathroom without assistance. You may be lightheaded from the medication you received. -Eat light today to avoid nausea. You should be able to return to your normal diet 24 to 36 hours after your procedure. -For the next 24 hours, do not consume alcohol, attempt to drive, use power tools, sign important documents or make important decisions. After that only do so if you feel perfectly normal and alert. -Follow carefully and verbal or written instructions your surgeon may give you. Surgeons written instructions with a copy given to patient: -No sex for 2 weeks -You may shower the next day after your procedure. -Take the pain medication and antibiotics as directed Follow Up Care 11/06/2023 09:33:45 With:Jerrod BELL Address: [address] [place], [place] [id number]- Business (1) When:01/01/2024 09:58:51 Comments:For suture removal [facility] 12-25-2023 Note Patient Education Custom Excision Penile Condyloma ? After excision may feel some minor discomfort over the treated areas, sometimes described as a stinging feeling much like a minor burn. ? In the next day or so, small scabs will form. Do not attempt to remove these scabs. ? The following instructions must be followed closely: -If you need pain pills, start before pain becomes intense. Antibiotics and pain pills are frequently less upsetting to your stomach if you take them with food such as crackers or bread. -If you have excessive or persistent pain, swelling, bleeding, nausea, vomiting, difficulty voiding, or any problems, you should first call your surgeon for advice. If you are unable to contact your surgeon, seek help from a hospital emergency room. ? If you were given drugs to make you drowsy or pain medication follow these instructions: -You should spend the remainder of the day and evening resting -You should not attempt to walk, including going to the bathroom without assistance. You may be lightheaded from the medication you received. -Eat light today to avoid nausea. You should be able to return to your normal diet 24 to 36 hours after your procedure. -For the next 24 hours, do not consume alcohol, attempt to drive, use power tools, sign important documents or make important decisions. After that only do so if you feel perfectly normal and alert. -Follow carefully and verbal or written instructions your surgeon may give you. ? Surgeons written instructions with a copy given to patient: -No sex for 2 weeks -You may shower the next day after your procedure. -Take the pain medication and antibiotics as directed [facility] 12-04-2023 Note HNO ID: [id number] Author: MERLY MARTI MD Service: ? Author Type: Physician Type: Progress Notes Filed: 12/04/2023 10:01 Note Text: PATIENT NAME: Elena Felix [facility] NO.: [id number] ATTENDING PHYSICIAN: Merly Marti MD DATE OF SERVICE: December 04, 2023 Some of the elements of this note have been copied from my previous progress note dated 11/15/2022. All the information has been reviewed carefully. Dear Dr. Silvana Lundberg, here is an update on a follow up visit on male Elena Felix at the clinic December 04, 2023 Diagnosis: DVT Treatment History: HPI: Elena Felix is a 63 year old year old male here for follow up. No new complaints and continues to be off the Eliquis. He does complain of fatigue and denies any fevers and or chills. Eating well. PAST MEDICAL HISTORY No date: Ankylosing spondylitis ([facility]) Comment: Dr Hodges No date: Ankylosing spondylitis ([facility]) No date: Arthritis No date: Back pain No date: Cardiomyopathy ([facility]) Comment: Nonischemic Congestive 08/24/2016: Cerebrovascular small vessel disease Comment: On ASA No date: DVT (deep venous thrombosis) ([facility]) No date: Esophageal reflux No date: Former smoker No date: Kidney stones 08/24/2016: Major depressive disorder with single episode, in remission ([facility]) No date: Morbid obesity with BMI of 40.0-44.9, adult ([facility]) No date: Neuropathy No date: Obstructive sleep apnea syndrome, severe Comment: On auto-CPAP - sleep study done on 07/10/16 No date: Pneumonia Social History Tobacco Use Smoking status: [...] of hands/feet. No weakness. PHYSICAL EXAMINATION: BP 97/65 Pulse 97 Temp (Src) 97.3 (Temporal) Resp 16 Ht 6' 2.016 (1.88m) Wt 305 lb 5.4 oz (138.5kg) SpO2 97% BMI 39.19 kg/(m2). Wt 135.5 kg (298 lb 12.8 [...] : Deferred LABS: Glucose (mg/dL) Date Value 11/07/2023 109 12/15/2016 101 Potassium (mmol/L) Date Value 11/07/2023 4.5 12/15/2016 4.1 Sodium (mmol/L) Date Value 11/07/2023 147 12/15/2016 140 Chloride (mmol/L) Date Value 11/07/2023 111 12/15/2016 96 CO2 (mmol/L) Date Value 11/07/2023 26 12/15/2016 31 Creatinine (mg/dL) Date Value 11/07/2023 1.43 12/15/2016 0.87 BUN (mg/dL) Date Value 11/07/2023 19 12/15/2016 10 Anion Gap (mmol/L) Date Value 11/07/2023 10 12/15/2016 13 Calcium (mg/dL) Date Value 12/15/2016 9.3 Calcium, Total (mg/dL) Date Value 11/07/2023 9.5 Protein, Total (g/dL) Date Value 11/07/2023 6.8 11/07/2023 5.9 12/15/2016 7.3 Albumin (g/dL) Date Value 11/07/2023 3.8 12/15/2016 2.9 Bilirubin, Total (mg/dL) (more content not included)... [facility] 12-04-2023 History of Present illness Narrative PATIENT NAME: Elena Jolley [facility] NO.: [id number] ATTENDING PHYSICIAN: Merly Marti MD DATE OF SERVICE: December 04, 2023 Some of the elements of this note have been copied from my previous progress note dated 11/15/2022. All the information has been reviewed carefully. Dear Dr. Silvana Lundberg, here is an update on a follow up visit on male Elena Felix at the clinic December 04, 2023 Diagnosis: DVT Treatment History: HPI: Elena Felix is a 63 year old year old male here for follow up. No new complaints and continues to be off the Eliquis. He does complain of fatigue and denies any fevers and or chills. Eating well. PAST MEDICAL HISTORY No date: Ankylosing spondylitis ([facility]) Comment: Dr Hodges No date: Ankylosing spondylitis ([facility]) No date: Arthritis No date: Back pain No date: Cardiomyopathy ([facility]) Comment: Nonischemic Congestive 08/24/2016: Cerebrovascular small vessel disease Comment: On ASA No date: DVT (deep venous thrombosis) ([facility]) No date: Esophageal reflux No date: Former smoker No date: Kidney stones 08/24/2016: Major depressive disorder with single episode, in remission ([facility]) No date: Morbid obesity with BMI of 40.0-44.9, adult ([facility]) No date: Neuropathy No date: Obstructive sleep apnea syndrome, severe Comment: On auto-CPAP - sleep study done on 07/10/16 No date: Pneumonia Social History Tobacco Use Smoking status: [...] of hands/feet. No weakness. PHYSICAL EXAMINATION: BP 97/65 Pulse 97 Temp (Src) 97.3 (Temporal) Resp 16 Ht 6' 2.016 (1.88m) Wt 305 lb 5.4 oz (138.5kg) SpO2 97% BMI 39.19 kg/(m^2). Wt 135.5 kg (298 lb 12.8 [...] : Deferred LABS: Glucose (mg/dL) Date Value 11/07/2023 109 12/15/2016 101 Potassium (mmol/L) Date Value 11/07/2023 4.5 12/15/2016 4.1 Sodium (mmol/L) Date Value 11/07/2023 147 12/15/2016 140 Chloride (mmol/L) Date Value 11/07/2023 111 12/15/2016 96 CO2 (mmol/L) Date Value 11/07/2023 26 12/15/2016 31 Creatinine (mg/dL) Date Value 11/07/2023 1.43 12/15/2016 0.87 BUN (mg/dL) Date Value 11/07/2023 19 12/15/2016 10 Anion Gap (mmol/L) Date Value 11/07/2023 10 12/15/2016 13 Calcium (mg/dL) Date Value 12/15/2016 9.3 Calcium, Total (mg/dL) Date Value 11/07/2023 9.5 Protein, Total (g/dL) Date Value 11/07/2023 6.8 11/07/2023 5.9 12/15/2016 7.3 Albumin (g/dL) Date Value 11/07/2023 3.8 12/15/2016 2.9 Bilirubin, Total (mg/dL) Date Value 11/07/2023 0.3 12/15/2016 0.3 Alkaline Phosphatase (U/L) Date Value 11/07/2023 83 12/15/2016 53 AST (U/L) Date Value 11/07/2023 19 12/15/2016 12 ALT (U/L) Date Value 11/07/2023 20 12/15/2016 9 WBC Date Value Ref Range Status 11/07/2023 6.32 3.70 - 11.00 k/uL Final RBC Date Value Ref Range Status 11/07/2023 4.20 4.20 - 6.00 m/uL Final Hemoglobin Date Value Ref Range Status 11/07/2023 12.4 (L) 13.0 - 17.0 g/dL Final Hematocrit Date Value Ref Range Status 11/07/2023 39.6 39.0 - 51.0 % Final MCV Date Value Ref Range Status 11/07/2023 94.3 80.0 - 100.0 fL Final MCH Date Value Ref Range Status 11/07/2023 29.5 26.0 - 34.0 pg Final MCHC Date Value Ref Range Status 11/07/2023 31.3 30.5 - 36.0 g/dL Final RDW-CV Date Value Ref Range Status 11/07/2023 16.0 (H) 11.5 - 15.0 % Final Platelet Count Date Value Ref Range Status 11/07/2023 246 150 - 400 k/uL Final MPV Date Value Ref Range Status 11/07/2023 9.4 9.0 - 12.7 fL Final Abs Neut Date Value Ref Range Status 11/07/2023 3.25 1.45 - 7.50 k/uL Final Lymphocytes % Date Value Ref Range Status 11/07/2023 27.1 % Final Abs Lymph Date Value Ref Range Status 11/07/2023 1.71 1.00 - 4.00 k/uL Final Monocytes % Date Value Ref Range Status 11/07/2023 14.4 % Final Abs Greene Date Value Ref Range Status 11/07/2023 0.91 (H) <0.87 k/uL Final Abs Eosin Date Value Ref Range Status 11/07/2023 0.33 <0.46 k/uL Final Basophils % Date Value Ref Range Status 11/07/2023 0.8 % Final Abs Baso Date Value Ref Range Status 11/07/2023 0.05 <0.11 k/uL Final PATH: Imaging: Assessment and Plan: Elena Felix is a 63 year old year old male here for follow up. Provoked DVT in 2016 and a subsequent short segment distal DVT in 08/2021 which was unprovoked. He was not 100% committed to long term care pharmacist therapy. I reviewed his hypercoag labs and all within normal limits and at this time will stay off anticoagulation. We discussed the clinical signs and symptoms of thrombosis and he understands that he can get recurrent disease again GILLIAN negative and slight elevation of rama. Repeat labs in 12 months Fatigue- Multifactorial Ankylosing Spondylitis He will follow up with Dr. Lundberg Thank you for the kind referral. If there are any questions and or concerns please do not hesitate to contact me at [phone]. Merly Marti MD Hematology/Medical Oncology [facility] I spent a total of 30 minutes on the date of the service which included preparing to see the patient, [id number] patient care, completing clinical documentation, obtaining and/or reviewing separately obtained history, ordering medications, tests, or procedures, and communicating with other HCPs (not separately reported). CC: Silvana Lundberg MD documented in this encounter [facility] 11-29-2023 Note HNO ID: [id number] Author: MISTY WALLACE MD Service: ? Author Type: Physician Type: Progress Notes Filed: 11/29/2023 13:23 Note Text: Orthopaedic Surgery Clinic Established Visit Date of Injury: January 2023 Injury: Left femoral neck fracture, treated at outside hospital History: Patient presents to clinic 10 months from the above injury, he states that he is doing much better and has been able to ambulate without any pain in the left hip. He states that occasionally he will have mild discomfort, but overall is doing much better than the last time he saw me 2 months ago. Physical Exam: General: Awake and alert Left Lower Extremity: Vascular: Foot warm and well perfused with brisk capillary refill Neuro: Sensation intact in saphenous/sural/deep peroneal/superficial peroneal/tibial nerve distribution and 5/5 EHL/TA/GSC Musculoskeletal: No pain with gentle range of motion of hip, or hip flexion/axial load Imaging: I personally reviewed xrays and discussed with patient: Demonstrate maintained alignment no interval displacement, interval healing of fracture Assessment and Plan: Patient is a 63 year old male 10 months weeks s/p left hip cephalomedullary nail at outside hospital -Patient is progressing appropriately -Clinically, patient has healed fracture. Recommend no further surgical treatment -Patient states that he has had problem with his right total hip arthroplasty since the surgery was done. He would like to see an arthroplasty surgeon. Business cards of to my arthroplasty partners were given to the patient today, he will reach out to schedule and let us know if he has any difficulties -Weightbearing: Weight bearing as tolerated -Follow up: as needed Misty Wallace MD [facility] 11-29-2023 History of Present illness Narrative Orthopaedic Surgery Clinic Established Visit Date of Injury: January 2023 Injury: Left femoral neck fracture, treated at outside hospital History: Patient presents to clinic 10 months from the above injury, he states that he is doing much better and has been able to ambulate without any pain in the left hip. He states that occasionally he will have mild discomfort, but overall is doing much better than the last time he saw me 2 months ago. Physical Exam: General: Awake and alert Left Lower Extremity: Vascular: Foot warm and well perfused with brisk capillary refill Neuro: Sensation intact in saphenous/sural/deep peroneal/superficial peroneal/tibial nerve distribution and 5/5 EHL/TA/GSC Musculoskeletal: No pain with gentle range of motion of hip, or hip flexion/axial load Imaging: I personally reviewed xrays and discussed with patient: Demonstrate maintained alignment no interval displacement, interval healing of fracture Assessment and Plan: Patient is a 63 year old male 10 months weeks s/p left hip cephalomedullary nail at outside hospital -Patient is progressing appropriately -Clinically, patient has healed fracture. Recommend no further surgical treatment -Patient states that he has had problem with his right total hip arthroplasty since the surgery was done. He would like to see an arthroplasty surgeon. Business cards of to my arthroplasty partners were given to the patient today, he will reach out to schedule and let us know if he has any difficulties -Weightbearing: Weight bearing as tolerated -Follow up: as needed Misty Wallace MD documented in this encounter [facility] 11-29-2023 History of Present illness Narrative Radiology Service Progress Note PATIENT NAME: Elena Felix DATE OF SERVICE: November 29, 2023 TIME: 8:56 AM PATIENT IDENTITY VERIFICATION COMPLETED USING TWO (2) IDENTIFIERS: Name and Date of confirmed by patient verbally and Name and Date of confirmed by identification band. FALL SCREENING: Has the patient had 2 falls in the last year or 1 fall with injury or currently using an Ambulatory Assistive Device (Walker, Cane, Wheelchair, Crutches, etc.)? No PATIENT GENDER DATA: Male PATIENT RELEVANT IMPLANT DATA REVIEWED: Not Applicable PATIENT PRESENTS WITH AN IMPLANTABLE OR ATTACHED HAND MOUNTER: No RADIOLOGY DEPARTMENT: General X-ray: Exam(s) Completed: Pelvis X-Ray: Pelvis with Hip Left PERIPHERAL IV DATA: Not applicable SIGNED BY: RT Alpa(Griffin) November 29, 2023 8:56 AM documented in this encounter [facility] 11-29-2023 Note HNO ID: [id number] Author: KECIA CARPENTER RT(R) Service: Radiology Author Type: Technologist Type: Progress Notes Filed: 11/29/2023 09:03 Note Text: Radiology Service Progress Note PATIENT NAME: Elena Felix DATE OF SERVICE: November 29, 2023 TIME: 8:56 AM PATIENT IDENTITY VERIFICATION COMPLETED USING TWO (2) IDENTIFIERS: Name and Date of confirmed by patient verbally and Name and Date of confirmed by identification band. FALL SCREENING: Has the patient had 2 falls in the last year or 1 fall with injury or currently using an Ambulatory Assistive Device (Walker, Cane, Wheelchair, Crutches, etc.)? No PATIENT GENDER DATA: Male PATIENT RELEVANT IMPLANT DATA REVIEWED: Not Applicable PATIENT PRESENTS WITH AN IMPLANTABLE OR ATTACHED HAND MOUNTER: No RADIOLOGY DEPARTMENT: General X-ray: Exam(s) Completed: Pelvis X-Ray: Pelvis with Hip Left PERIPHERAL IV DATA: Not applicable SIGNED BY: RT Alpa(R) November 29, 2023 8:56 AM [facility] 10-01-2023 Telephone encounter Note Called pt to schedule; no answer; scheduled first available with dr. Jenae garcia [facility] 10-01-2023 Miscellaneous Notes Called pt to schedule; no answer; scheduled first available with dr. Jenae garcia documented in this encounter [facility] 09-28-2023 Telephone encounter Note ----- Message from Misty Wallace MD sent at 09/27/2023 1:23 PM EDT ----- Hi, can you let patient know that he had an elevated PTH. I have placed a consultation for endocrinology to discuss possible etiologies/treatments for this [facility] 09-28-2023 Miscellaneous Notes ----- Message from Misty Wallace MD sent at 09/27/2023 1:23 PM EDT ----- Hi, can you let patient know that he had an elevated PTH. I have placed a consultation for endocrinology to discuss possible etiologies/treatments for this documented in this encounter [facility] 09-27-2023 Note HNO ID: [id number] Author: MISTY WALLACE MD Service: ? Author Type: Physician Type: Progress Notes Filed: 09/27/2023 13:24 Note Text: ORTHOPAEDIC SURGERY CLINIC NOTE NEW PATIENT VISIT Name: Elena Felix September 27, 2023 CHIEF COMPLAINT: left hip pain Date of injury: January 2023 HISTORY OF PRESENT ILLNESS: Elena Felix is a 63 year old male who sustained a L femoral neck fx after mechanical fall in January 2023 which was surgically repaired with a short cephalomedullary nail. He states that he has continued to have pain in the left hip, and his surgeon has told him that the fracture is not healing. He has been ambulating without assistive devices, but is in a wheelchair for long distances. Denies any wound healing complications or concerns for infection. Does have a diagnosis of ankylosing spondylitis. States that he has no pain at rest in the left hip, but has pain with ambulation and weightbearing Social History: Tobacco Use: 2 packs/day, for 21 years. Types: Cigarettes PATIENT HISTORIES: PAST MEDICAL HISTORY Diagnosis Date Ankylosing spondylitis ([facility]) Dr Hodges Ankylosing spondylitis ([facility]) Arthritis Back pain Cardiomyopathy ([facility]) Nonischemic Congestive Cerebrovascular small vessel disease 08/24/2016 On ASA DVT (deep venous thrombosis) ([facility]) Esophageal reflux Former smoker Kidney stones Major depressive disorder with single episode, in remission ([facility]) 08/24/2016 Morbid obesity with BMI of 40.0-44.9, adult ([facility]) Neuropathy Obstructive sleep apnea syndrome, severe On auto-CPAP - sleep study done on 07/10/16 Pneumonia PAST SURGICAL HISTORY Procedure Laterality Date BACK SURGERY HX 2013 BACK SURGERY HX 2015 HIP SURGERY HX Left 01/2023 MIDLINE INSERTION/CONSULT 09/05/2016 NOSE SURGERY HX sinus surg Dr Rojo PAST SURGICAL HISTORY OF 1986 R hand surgery PAST SURGICAL HISTORY OF 2001 R finger surgery PICC LINE INSERT/CONSULT 09/16/2016 TOTAL HIP JOINT REPLACEMENT Right ARIPiprazole (ABILIFY) 5 mg tabletTake 5 mg by mouth daily at bedtime.Disp: Rfl: oxyCODONE-acetaminophen (PERCOCET) 5-325 mg tabletthree times a day as needed.Disp: Rfl: metoprolol succinate ER (TOPROL XL) 50 mg 24 hr tabletTake 50 mg by mouth once daily.Disp: Rfl: venlafaxine ER (EFFEXOR XR) 75 mg 24 hr capsuleTake 150 mg by mouth once daily.Disp: Rfl: spironolactone (ALDACTONE) 25 mg tabletTake 17.5 [...] 20 mg by mouth once daily.Disp: Rfl: folic acid 1 mg tabletTake 1 mg by mouth once daily.Disp: Rfl: omeprazole (PRILOSEC) 20 mg capsuleTake 20 mg by mouth once daily.Disp: Rfl: DULoxetine (CYMBALTA) 60 mg capsuleTake 60 mg by mouth twice daily. Disp: Rfl: ferrous sulfate 325 mg (65 mg iron) tabletTake 1 tablet by mouth three times a week.Disp: Rfl: (Patient not taking: Reported on 09/27/2023) methotrexate 2.5 mg tabletTake 12.5 mg by mouth one time a week.Disp: Rfl: (Patient not taking: Reported on 09/27/2023) Allergies: ALLERGIES Allergen Reactions Morphine Intolerance Patient thinks that with previous surgery he had a mental psychotic reaction with the combination of Lyrica and Morphine. Lisinopril Unknown Losartan Unknown Allergies, medications, past surgical history and past medical history were reviewed per this encounter. I have confirmed and edited as necessary, the PFSH and ROS obtained by others. PHYSICAL EXAM: General Appearance: Appears healthy, well-nourished Respiratory: Non-labored breathing Left Lower Extremity: Skin: Closed without ulcerations, lacerations, rashes or abrasions Vascular: Foot warm with brisk warm capillary refill and Palpable DP/PT pulse Neuro: Sensation intact in saphenous/sural/deep peroneal/superficial peroneal/tibial nerve distribution and 5/5 EHL/TA/GSC Musculoskeletal: No pain with gentle range of motion of left hip Images: I have personally reviewed the images obtained today and discussed with patient, demonstrating short TFN a with blade without acute complication of hardware, superior portion of fracture line is visible. I also reviewed CT scan that was brought on disc demonstrating incomplete healing of left basicervical femoral neck fracture Assessment and Plan: 63 year old male with left femoral neck fracture with delayed healing -Discussed with patient that I would like to rule out metabolic/infectious causes for nonunion before considering secondary surgery. Labs ordered today including vitamin D, CRP, ESR, (more content not included)... [facility] 09-27-2023 History of Present illness Narrative Images from the original note were not included. ORTHOPAEDIC SURGERY CLINIC NOTE NEW PATIENT VISIT Name: Elena Felix September 27, 2023 CHIEF COMPLAINT: left hip pain Date of injury: January 2023 HISTORY OF PRESENT ILLNESS: Elena Felix is a 63 year old male who sustained a L femoral neck fx after mechanical fall in January 2023 which was surgically repaired with a short cephalomedullary nail. He states that he has continued to have pain in the left hip, and his surgeon has told him that the fracture is not healing. He has been ambulating without assistive devices, but is in a wheelchair for long distances. Denies any wound healing complications or concerns for infection. Does have a diagnosis of ankylosing spondylitis. States that he has no pain at rest in the left hip, but has pain with ambulation and weightbearing Social History: Tobacco Use: 2 packs/day, for 21 years. Types: Cigarettes PATIENT HISTORIES: PAST MEDICAL HISTORY Diagnosis Date Ankylosing spondylitis ([facility]) Dr Hodges Ankylosing spondylitis ([facility]) Arthritis Back pain Cardiomyopathy ([facility]) Nonischemic Congestive Cerebrovascular small vessel disease 08/24/2016 On ASA DVT (deep venous thrombosis) ([facility]) Esophageal reflux Former smoker Kidney stones Major depressive disorder with single episode, in remission ([facility]) 08/24/2016 Morbid obesity with BMI of 40.0-44.9, adult ([facility]) Neuropathy Obstructive sleep apnea syndrome, severe On auto-CPAP - sleep study done on 07/10/16 Pneumonia PAST SURGICAL HISTORY Procedure Laterality Date BACK SURGERY HX 2013 BACK SURGERY HX 2015 HIP SURGERY HX Left 01/2023 MIDLINE INSERTION/CONSULT 09/05/2016 NOSE SURGERY HX sinus surg Dr Rojo PAST SURGICAL HISTORY OF 1986 R hand surgery PAST SURGICAL HISTORY OF 2001 R finger surgery PICC LINE INSERT/CONSULT 09/16/2016 TOTAL HIP JOINT REPLACEMENT Right ARIPiprazole (ABILIFY) 5 mg tablet^Take 5 mg by mouth daily at bedtime.^Disp: ^Rfl: oxyCODONE-acetaminophen (PERCOCET) 5-325 mg tablet^three times a day as needed.^Disp: ^Rfl: metoprolol succinate ER (TOPROL XL) 50 mg 24 hr tablet^Take 50 mg by mouth once daily.^Disp: ^Rfl: venlafaxine ER (EFFEXOR XR) 75 mg 24 hr capsule^Take 150 mg by mouth once daily.^Disp: ^Rfl: spironolactone [...] by mouth three times daily for 30 days.^Disp: 270 capsule^Rfl: 2 leflunomide (ARAVA) 20 mg tablet^Take 20 mg by mouth once daily.^Disp: ^Rfl: folic acid 1 mg tablet^Take 1 mg by mouth once daily.^Disp: ^Rfl: omeprazole (PRILOSEC) 20 mg capsule^Take 20 mg by mouth once daily.^Disp: ^Rfl: DULoxetine (CYMBALTA) 60 mg capsule^Take 60 mg by mouth twice daily. ^Disp: ^Rfl: ferrous sulfate 325 mg (65 mg iron) tablet^Take 1 tablet by mouth three times a week.^Disp: ^Rfl: (Patient not taking: Reported on 09/27/2023) methotrexate 2.5 mg tablet^Take 12.5 mg by mouth one time a week.^Disp: ^Rfl: (Patient not taking: Reported on 09/27/2023) Allergies: ALLERGIES Allergen Reactions Morphine Intolerance Patient thinks that with previous surgery he had a mental psychotic reaction with the combination of Lyrica and Morphine. Lisinopril Unknown Losartan Unknown Allergies, medications, past surgical history and past medical history were reviewed per this encounter. I have confirmed and edited as necessary, the PFSH and ROS obtained by others. PHYSICAL EXAM: General Appearance: Appears healthy, well-nourished Respiratory: Non-labored breathing Left Lower Extremity: Skin: Closed without ulcerations, lacerations, rashes or abrasions Vascular: Foot warm with brisk warm capillary refill and Palpable DP/PT pulse Neuro: Sensation intact in saphenous/sural/deep peroneal/superficial peroneal/tibial nerve distribution and 5/5 EHL/TA/GSC Musculoskeletal: No pain with gentle range of motion of left hip Images: I have personally reviewed the images obtained today and discussed with patient, demonstrating short TFN a with blade without acute complication of hardware, superior portion of fracture line is visible. I also reviewed CT scan that was brought on disc demonstrating incomplete healing of left basicervical femoral neck fracture Assessment and Plan: 63 year old male with left femoral neck fracture with delayed healing -Discussed with patient that I would like to rule out metabolic/infectious causes for nonunion before considering secondary surgery. Labs ordered today including vitamin D, CRP, ESR, CBC, CMP, and PTH. Surgery options could entail revision to arthroplasty or revision nailing with compression of fracture site. At this time, I would recommend revision of nail due to patient's lack of prior hip pain and lack of radiographic arthritis on imaging. Would like to wait for labs and an additional 6 to 8 weeks to see additional fracture healing may occur. Patient was agreeable with this -Weightbearing: Weight bearing as tolerated to the left lower extremity -Follow up: 6-8 weeks with x-rays of left hip Addendum: PTH was noted to be very elevated on today's labs, I placed a consultation for endocrinology and sent an Ganjiwang message to one of our endocrinologists as well. RN to update patient. Misty Wallace MD Orthopaedic Trauma Surgery documented in this encounter [facility] 09-27-2023 History of Present illness Narrative Radiology Service Progress Note PATIENT NAME: Elena Felix DATE OF SERVICE: September 27, 2023 TIME: 9:37 AM PATIENT IDENTITY VERIFICATION COMPLETED USING TWO (2) IDENTIFIERS: Name and Date of confirmed by patient verbally and Name and Date of confirmed by identification band. FALL SCREENING: Has the patient had 2 falls in the last year or 1 fall with injury or currently using an Ambulatory Assistive Device (Walker, Cane, Wheelchair, Crutches, etc.)? No PATIENT GENDER DATA: Male PATIENT RELEVANT IMPLANT DATA REVIEWED: Not Applicable PATIENT PRESENTS WITH AN IMPLANTABLE OR ATTACHED HAND MOUNTER: No RADIOLOGY DEPARTMENT: General X-ray: Exam(s) Completed: Pelvis X-Ray: Pelvis with Hip Left PERIPHERAL IV DATA: Not applicable SIGNED BY: ISSA Denson) September 27, 2023 9:37 AM documented in this encounter [facility] 09-27-2023 Note HNO ID: [id number] Author: SAMUEL SKY RT(R) Service: ? Author Type: Technologist Type: Progress Notes Filed: 09/27/2023 09:42 Note Text: Radiology Service Progress Note PATIENT NAME: Elena Felix DATE OF SERVICE: September 27, 2023 TIME: 9:37 AM PATIENT IDENTITY VERIFICATION COMPLETED USING TWO (2) IDENTIFIERS: Name and Date of confirmed by patient verbally and Name and Date of confirmed by identification band. FALL SCREENING: Has the patient had 2 falls in the last year or 1 fall with injury or currently using an Ambulatory Assistive Device (Walker, Cane, Wheelchair, Crutches, etc.)? No PATIENT GENDER DATA: Male PATIENT RELEVANT IMPLANT DATA REVIEWED: Not Applicable PATIENT PRESENTS WITH AN IMPLANTABLE OR ATTACHED HAND MOUNTER: No RADIOLOGY DEPARTMENT: General X-ray: Exam(s) Completed: Pelvis X-Ray: Pelvis with Hip Left PERIPHERAL IV DATA: Not applicable SIGNED BY: RT Jarett(R) September 27, 2023 9:37 AM [facility] 07-16-2023 Hospital Discharge instructions Patient Education 07/16/2023 10:39:22 Erectile Dysfunction Erectile Dysfunction Erectile dysfunction (ED) is the inability to get or keep an erection in order to have sexual intercourse. ED is considered a symptom of an underlying disorder and is not considered a disease. ED may include: Inability to get an erection. Lack of enough hardness of the erection to allow penetration. Loss of erection before sex is finished. What are the causes? This condition may be caused by: Physical causes, such as: ?Artery problems. This may include heart disease, high blood pressure, atherosclerosis, and diabetes. ?Hormonal problems, such as low testosterone. ?Obesity. ?Nerve problems. This may include back or pelvic injuries, multiple sclerosis, Parkinson's disease, spinal cord injury, and stroke. Certain medicines, such as: ?Pain relievers. ?Antidepressants. ?Blood pressure medicines and water pills (diuretics). ?Cancer medicines. ?Antihistamines. ?Muscle relaxants. Lifestyle factors, such as: ?Use of drugs such as marijuana, cocaine, or opioids. ?Excessive use of alcohol. ?Smoking. ?Lack of physical activity or exercise. Psychological causes, such as: ?Anxiety or stress. ?Sadness or depression. ?Exhaustion. ?Fear about sexual performance. ?Guilt. What are the signs or symptoms? Symptoms of this condition include: Inability to get an erection. Lack of enough hardness of the erection to allow penetration. Loss of the erection before sex is finished. Sometimes having normal erections, but with frequent unsatisfactory episodes. Low sexual satisfaction in either partner due to erection problems. A curved penis occurring with erection. The curve may cause pain, or the penis may be too curved to allow for intercourse. Never having nighttime or morning erections. How is this diagnosed? This condition is often diagnosed by: Performing a physical exam to find other diseases or specific problems with the penis. Asking you detailed questions about the problem. Doing tests, such as: ?Blood tests to check for diabetes mellitus or high cholesterol, or to measure hormone levels. ?Other tests to check for underlying health conditions. ?An ultrasound exam to check for scarring. ?A test to check blood flow to the penis. Doing a sleep study at home to measure nighttime erections. How is this treated? This condition may be treated by: Medicines, such as: ?Medicine taken by mouth to help you achieve an erection (oral medicine). ?Hormone replacement therapy to replace low testosterone levels. ?Medicine that is injected into the penis. Your health care provider may instruct you how to give yourself these injections at home. ?Medicine that is delivered with a short applicator tube. The tube is inserted into the opening at the tip of the penis, which is the opening of the urethra. A tiny pellet of medicine is put in the urethra. The pellet dissolves and enhances erectile function. This is also called MUSE (medicated urethral system for erections) therapy. Vacuum pump. This is a pump with a ring on it. The pump and ring are placed on the penis and used to create pressure that helps the penis become erect. Penile implant surgery. In this procedure, you may receive: ?An inflatable implant. This consists of cylinders, a pump, and a reservoir. The cylinders can be inflated with a fluid that helps to create an erection, and they can be deflated after intercourse. ?A semi-rigid implant. This consists of two silicone rubber rods. The rods provide some rigidity. They are also flexible, so the penis can both curve downward in its normal position and become straight for sexual intercourse. Blood vessel surgery to improve blood flow to the penis. During this procedure, a blood vessel from a different part of the body is placed into the penis to allow blood to flow around (bypass) damaged or blocked blood vessels. Lifestyle changes, such as exercising more, losing weight, and quitting smoking. Follow these instructions at home: Medicines Take wdec-lzd-ltvrism and prescription medicines only as told by your health care provider. Do not increase the dosage without first discussing it with your health care provider. If you are using self-injections, do injections as directed by your health care provider. Make sure you avoid any veins that are on the surface of the penis. After giving an injection, apply pressure to the injection site for 5 minutes. Talk to your health care provider about how to prevent headaches while taking ED medicines. These medicines may cause a sudden headache due to the increase in blood flow in your body. General instructions Exercise regularly, as directed by your health care provider. Work with your health care provider to lose weight, if needed. Do not use any products that contain nicotine or tobacco. These products include cigarettes, chewing tobacco, and vaping devices, such as e-cigarettes. If you need help quitting, ask your health care provider. Before using a vacuum pump, read the instructions that come with the pump and discuss any questions with your health care provider. Keep all follow-up visits. This is important. Contact a health care provider if: You feel nauseous. You are vomiting. You get sudden headaches while taking ED medicines. You have any concerns about your sexual health. Get help right away if: You are taking oral or injectable medicines and you have an erection that lasts longer than 4 hours. If your health care provider is unavailable, go to the nearest emergency room for evaluation. An erection that lasts much longer than 4 hours can result in permanent damage to your penis. You have severe pain in your groin or abdomen. You develop redness or severe swelling of your penis. You have redness spreading at your groin or lower abdomen. You are unable to urinate. You experience chest pain or a rapid heartbeat (palpitations) after taking oral medicines. These symptoms may represent a serious problem that is an emergency. Do not wait to see if the symptoms will go away. Get medical help right away. Call your local emergency services (911 in the [place] Do not drive yourself to the hospital. Summary Erectile dysfunction (ED) is the inability to get or keep an erection during sexual intercourse. This condition is diagnosed based on a physical exam, your symptoms, and tests to determine the cause. Treatment varies depending on the cause and may include medicines, hormone therapy, surgery, or a vacuum pump. You may need follow-up visits to make sure that you are using your medicines or devices correctly. Get help right away if you are taking or injecting medicines and you have an erection that lasts longer than 4 hours. This information is not intended to replace advice given to you by your health care provider. Make sure you discuss any questions you have with your health care provider. Document Revised: 07/06/2021 Document Reviewed: 07/06/2021 [employer] Patient Education 2022 [employer]. Follow Up Care 05/01/2022 10:53:41 With:RIZWAN MUNIZ, Driss Rodríguez, URL Address: [address] [place] [id number] When: Unknown [facility] 05-16-2023 Note HNO ID: [id number] Author: TIFFANY PETERSON PA-C Service: ? Author Type: Physician Cyber Forensics Analyst Type: Progress Notes Filed: 05/16/2023 12:16 Note Text: PATIENT NAME: Elena Felix CLINIC NO.: [id number] ATTENDING PHYSICIAN: Merly Marti MD DATE OF [...] PAST MEDICAL HISTORY Diagnosis Date Ankylosing spondylitis ([facility]) Dr Hodges Ankylosing spondylitis ([facility]) Arthritis Back pain Cardiomyopathy ([facility]) Nonischemic Congestive Cerebrovascular small vessel disease 08/24/2016 On ASA DVT (deep venous thrombosis) ([facility]) Esophageal reflux Former smoker Kidney stones Major depressive disorder with single episode, in remission ([facility]) 08/24/2016 Morbid obesity with BMI of 40.0-44.9, adult ([facility]) Neuropathy Obstructive sleep apnea syndrome, severe On auto-CPAP - sleep study done on 07/10/16 Pneumonia Social History Tobacco Use Smoking status: Former Packs/day: 2.00 Years: 21.00 Additional pack years: 0.00 Total pack years: 42.00 Types: Cigarettes Passive exposure: Past Smokeless tobacco: Never Tobacco comments: quit 1998 Vaping Use Vaping Use: Never used Substance [...] Range Status 05/16/2023 6.9 % Final Abs Greene Date Value Ref Range Status 05/16/2023 0.36 [...] a 61 yea (more content not included)... [facility] 03-29-2023 Evaluation note Encounter Date Diagnosis Assessment [...] (ICD-10 - L30.9) Advised OTC Cortisone cream. [facility] Other 10-16-2023 History of Present illness Narrative* Austin Jose MD - 02/05/2023 1:01 PM EDT I personally reviewed the above information as obtained by the nurse and confirmed the findings. Chief Complaint: shortness of breath, Near loss of consciousness Additional HPI: 62 year old male with a past medical history of: PAST MEDICAL HISTORY Diagnosis Date Ankylosing spondylitis ([facility]) Dr Hodges Ankylosing spondylitis ([facility]) Arthritis Back pain Cardiomyopathy ([facility]) Nonischemic Congestive Cerebrovascular small vessel disease 08/24/2016 On ASA DVT (deep venous thrombosis) ([facility]) Esophageal reflux Former smoker Kidney stones Major depressive disorder with single episode, in remission ([facility]) 08/24/2016 Morbid obesity with BMI of 40.0-44.9, adult ([facility]) Neuropathy Obstructive sleep apnea syndrome, severe [...] 2/2 NICM. He is followed by Dr. Francis and was seen on 08/16/2022.Starting in 2019 [...] Zio monitor. He was seen by Anna Palacios APRN.CNP on 10/06/22. She reported symptoms were more consistent with orthostatic hypotension with compensatory tachycardia, not POTS. He was tried previously on midodrine and pyridostigmine, both of which caused diarrhea and abdominal pain. She suggested Florinef or Droxidopa and to discuss with Dr. Francis. He followed up with Dr. Francis in October and was ordered a VQ [...] not done so recently. Per Cardiology Dr Francis 10/2022: IMPRESSION: Mr. Felix is a 62 [...] up with their primary care physician and/or medical technologist blood bank as previously scheduled. STUDY CONCLUSIONS: Abnormal head [...] to repeat a Tilt Table Test with [id number]-coqq blood pressure monitoring here at [facility]. He agrees. If a relationship between low [...] MRI and CPET as ordered by Dr Francis. Follow up with [facility] as well. [...] of syncope. [ACC/AHA Syncope Guidelines 2017. PMID [id number]] -If syncope is frequent (more than 6 episodes in 1 year), then no private driving until symptoms are controlled. [ACC/AHA Syncope Guidelines 2017. PMID [id number]] -For professional or commercial driving, driving recommendations may differ depending upon company or governmental regulations. The Nurses and Nurse Practitioners at [facility] are integral to your care. -*Test results will be available on Synup.* -For brief questions regarding the test results, please send a Synup message or call the office ([phone]), and a Nurse will be in contact. -If you would prefer more extensive discussions of the test results and recommendations, you can request a follow up visit (which can be a Virtual Visit) with a Nurse Practitioner or with Dr Jose. A copy of this note will be [...] Thank you for your consultation. Sincerely, Austin Jose MD, [facility], [facility] Cardiac Electrophysiology [facility] * Anna Duvall RN - 02/05/2023 12:00 PM EDT Images from the original note were not included. Heart and Vascular [place] [facility] Department of Cardiovascular Medicine SECTION OF CARDIAC PACING and ELECTROPHYSIOLOGY OUTPATIENT VISIT DATE February 05, 2023 PRIMARY CARE PHYSICIAN: Silvana Lundberg ([facility]) [facility] [place] [address] REFERRING PHYSICIAN: Berta Francis [address] [facility] [id number] NURSING INTAKE HISTORY: Mr. Felix is a 62 year old male who is seen today for lightheadedness and POTS. 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 He is followed by Dr. Francis and was seen on 08/16/2022.Starting in 2019 [...] Zio monitor. He was seen by Anna Palacios APRN.CNP on 10/06/22. She reported symptoms were more consistent with orthostatic hypotension with compensatory tachycardia, not POTS. He was tried previously on midodrine and pyridostigmine, both of which caused diarrhea and abdominal pain. She suggested Florinef or Droxidopa and to discuss with Dr. Francis. He followed up with Dr. Francis in October and was ordered a VQ [...] PAST MEDICAL HISTORY Diagnosis Date Ankylosing spondylitis ([facility]) Dr Hodges Ankylosing spondylitis ([facility]) Arthritis Back pain Cardiomyopathy ([facility]) Nonischemic Congestive Cerebrovascular small vessel disease 08/24/2016 On ASA DVT (deep venous thrombosis) ([facility]) Esophageal reflux Former smoker Kidney stones Major depressive disorder with single episode, in remission ([facility]) 08/24/2016 Morbid obesity with BMI of 40.0-44.9, adult ([facility]) Neuropathy Obstructive sleep apnea syndrome, severe [...] Sweating, Frequent Urination, FrequentThirst Anna Duvall RN [facility] Syncope Center Score Please estimate the frequency [...] of Both Sections: 35 documented in this encounterK[facility]09-[facility] Evaluation note* Encounter Date Diagnosis Assessment Notes Treatment Notes Treatment Clinical Notes Dec, Pernicious anemia (ICD-10 - D51.0) [facility] Other 07-28-2023 Instructions* Patient Instructions* Berta Francis MD - 11/17/2022 11:06 AM EDT Cardiopulmonary exercise testing documented in this encounterK[facility]07-[facility] History of Present illness Narrative* Berta Francis MD - 11/17/2022 10:46 AM EDT Images from the original note were not included. Heart, Vascular and Thoracic [place] [facility] Department of Cardiovascular Medicine SECTION OF CLINICAL CARDIOLOGY OUTPATIENT VISIT DATE November 17, 2022 OUTPATIENT VISIT TYPE ESTABLISHED PRIMARY CARE PHYSICIAN: Silvana Lundberg ([facility]) [address] [place] [address] REFERRING PHYSICIAN: No referring provider defined for [...] PAST MEDICAL HISTORY Diagnosis Date Ankylosing spondylitis ([facility]) Dr Hodges Ankylosing spondylitis ([facility]) Arthritis Back pain Cardiomyopathy ([facility]) Nonischemic Congestive Cerebrovascular small vessel disease 08/24/2016 On ASA DVT (deep venous thrombosis) ([facility]) Esophageal reflux Former smoker Kidney stones Major depressive disorder with single episode, in remission ([facility]) 08/24/2016 Morbid obesity with BMI of 40.0-44.9, adult ([facility]) Neuropathy Obstructive sleep apnea syndrome, severe [...] NORMAL ECG Confirmed by YELENA FUENTES MD ([id number]) on 08/16/2022 10:01:53 AM Patient Name: Elena [...] is on aspirin and statin. CONTACT INFORMATION: Berta Francis MD Section of Clinical Cardiology [facility] Department of Cardiovascular Medicine Heart and Vascular [place] [facility] Desk [address] [place] [address] Office Office Appointments: [phone] documented in this encounterK[facility]07-18-2023 Evaluation note* Encounter Date Diagnosis Assessment Notes Treatment Notes Treatment Clinical Notes Oct, Pernicious anemia (ICD-10 - D51.0) [facility] Other 07-11-2023 Evaluation note* Encounter Date Diagnosis Assessment Notes Treatment Notes Treatment Clinical Notes Oct, Cellulitis of right leg (ICD-10 - L03.115) Discussed antibiotics, pain med, consider referral to wound center if not healing well. [facility] Other 06-27-2023 Miscellaneous Notes* Telephone Encounter - Shelia Woods RN - 10/17/2022 9:06 AM EDT Called patient to discuss results of BMP with kidney function and potassium levels still elevated. Left generic message on non-identifying voicemail to return call or read Synup message sent to notify him. 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 Will followup with Dr. Francis Sep, Hyperkalemia (ICD-10 - E87.5) Pt had labs this morning, will obtain results and treat accordingly Sep, Stage 3 chronic kidney disease, unspecified whether stage 3a or 3b CKD (ICD-10 - N18.30) Will recheck labs, possibly checked this morning. [facility] Other 06-26-2023 History of Present illness Narrative* Trip Grey [...] completed when applicable. Luz Monk EMG Trip Grey MD documented in this encounterKet[facility]06-22-2023 Miscellaneous Notes* Telephone Encounter - Shelia Woods RN - 10/12/2022 1:09 PM EDT Called and left a generic message on non-identifying voicemail for return call if he has any questions about the Synup message that Anna sent. Misti Woods RN documented in this encounterK[facility]06-16-2023 Instructions* Patient Instructions* Anna Palacios APRN.INDUSTRIAL HYGIENE MANAGER - 10/06/2022 9:58 AM EDT 1) Labs 2) EMG 3) Discuss with urology changing to different medication (discontinuing Flomax) 4) Discuss your neck symptoms with your formal service waiter 5) Medication consideration - Will discuss with Dr. Francis: Fludrocortisone (Florinef): Fludrocortisone (Florinef) is a medication [...] intolerance quickly and transiently. documented in this encounterKettering Health [facility]06-16-2023 History of Present illness Narrative* Anna Palacios APRN.SAHIL - 10/06/2022 9:00 AM EDT Images from the original note were not included. [facility] New Patient Evaluation Chief Complaint/Issues: Elena Felix is a 62 year old right-handed male seen in the [facility] for: New patient Orthostatic lightheadedness HPI: Consult placed by cardiology, Dr. Francis, 08/16/2022: Starting in 2019 post-op, began experiencing [...] years ago. Used to work in [employer]. Today we discuss his symptoms: Accompanied by , Maricel, who contributes to the history. Ganesh has ankylosing spondylitis, diagnosed at age 19. He has had multiple back and hip surgeries. His formal service waiter is locally in [place]. He had surgery in 2019, had a [...] GI andheart issues. He sees cardiology in [facility]. He had a heart cath and [...] PT in the past and sees his formal service waiter for the neck. PMH PAST MEDICAL HISTORY Diagnosis Date Ankylosing spondylitis ([facility]) Dr Hodges Ankylosing spondylitis ([facility]) Arthritis Back pain Cardiomyopathy ([facility]) Nonischemic Congestive Cerebrovascular small vessel disease 08/24/2016 On ASA DVT (deep venous thrombosis) ([facility]) Esophageal reflux Former smoker Kidney stones Major depressive disorder with single episode, in remission ([facility]) 08/24/2016 Morbid obesity with BMI of 40.0-44.9, adult ([facility]) Neuropathy Obstructive sleep apnea syndrome, severe [...] up with their primary care physician and/or medical technologist blood bank as previously scheduled. STUDY CONCLUSIONS: Abnormal head [...] the prior CC echocardiographic exam performed on General Examination: BP [...] Assessment & Plan 10/06/2022 - Neuromuscular, Anna Palacios, RAGINI.INDUSTRIAL HYGIENE MANAGER ASSESSMENT Elena Felix is a 62 year [...] managed by local rheumatology, and seen by [facility] rheumatology recently, Marysol Nance PA-C. He reports in 2019 he [...] SOB. He had OSH tilt completed through [facility] 07/2022. Though I cannot see the minute [...] which I will discuss with his primary medical technologist blood bank, Dr. Francis (staff message sent 10/06). He is currently in cardiac rehab locally 3x per week. We discuss conservative measures as tolerated. PLAN 1) Labs 2) EMG 3) Discuss with urology changing to different medication (discontinuing Flomax) 4) Discuss your neck symptoms with your formal service waiter 5) Medication consideration - Will discuss with Dr. Francis: Fludrocortisone (Florinef): Fludrocortisone (Florinef) is a medication [...] which included preparing to see the patient, fmne-nw-tpoe patient care, completing clinical documentation, obtaining and/or reviewing separately obtained history, performing a medically appropriate examination, counseling and educating the pat ient/family/caregiver, and ordering medications, tests, or procedures. Anna Palacios APRN.[facility] General Neurology [address] [place] [address]. [phone] Appointment: [phone] CONSULT: Consultation requested by Dr. Francis for an opinion regarding change in blood [...] of your PCP/referring physician documented in this encounterKettering Health [facility]06-14-2023 History of Present illness Narrative* Víctor Lewis RT(R) - 10/04/2022 8:30 AM EDT RADIOLOGY SERVICE [...] 8:10 PATIENT DISCHARGED TO: Ambulatory patient, left [place] department area. A Diagnostic radioactive procedure has taken place, with no further precautions necessary other than routine body substance precautions. More information regarding radiation safety can be found usingPrimeStones link: [email or web address] 20Diagnostic%20Nuclear%20Medicine%[email or web address].pdf SIGNATURE: ISSA Knutson) PATIENT NAME: Elena Felix DATE: October 04, 2022 TIME: 8:15 AM PAGER/CONTACT #: documented in this encounterKettering Health [facility]06-13-2023 NoteThe is a pleasant 62-year-old male with nonischemic cardiomyopathy, chronic systolic heart failure (HFrEf), Mild nonobstructive coronary artery disease (right heart catheterization 09/2021), hypertension, dyslipidemia who was found to have orthostatic hypotension and previously evaluated in the Cardiac Clinic at the [facility]. He last saw Maite Ba advanced practice registered nurse practitioner in July 2022. He underwent head upright tilt table testing positive for orthostatic intolerance at [facility]. He was commenced on pyridostigmine several months ago. He has been referred to the Syncope and Autonomic Disorders Clinic in the Heart and Vascular Center at the [facility] for further management of the orthostatic hypotension. Chief Complaint: Follow-up for orthostatic hypotension and pyridostigmine. Had severe diarrhea and stomach cramps so stopped both medications. Blood pressure continues to drop with standing. Low 50/30mmhg. Near syncope. Black vision. Blood pressure highest: SBP 140-150mmhg Follows [facility] Dr [facility]. Hx ankylosis spondylitis. Cardiac and rheumatology team. [...] ANS. Our research (Loren et. al, 2019 JA) and others have identified autoantibodies to autonomic [...] syndrome POTS/ orthostatic intolerance OI) which developed [id number] infection. 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 Likely these Covid long haulers develop an inflammatory/autoimmune response that effects the ANS. Mr Felix has longstanding ankylosis spondylitis. Failed pyridostigmine and midodrine. Consider droxidopa or Northera. Discussed reconditioning, fluids, conservative measures. [facility] providers and rtc 3months.[facility]05-24-2023 Nurse Note* Yuliana Tubbs RN - [...] kind. Yuliana Tubbs RN documented in this encounterKettering Health [facility]05-09-2023 History of Present illness Narrative* Marcia Diamond [...] 2022 TIME: 1:57 PM documented in this encounterKettering Health [facility]05-08-2023 Miscellaneous Notes* Telephone Encounter - Lauryn Bethea [...] In Department of CARDIOLOGY. documented in this encounterKettering Health [facility] Township04-26-2023 Instructions* Patient Instructions* Marysol Nance PA-C - 08/16/2022 10:56 AM EDT [...] uveitis coverage. Continue to follow with primary formal service waiter for medication changes and monitoring. [facility] continue to assist with treatment plan as needed. documented in this encounterKettering Health [facility]04-26-2023 History of Present illness Narrative* Catia Snell - 08/16/2022 10:06 AM EDT E documented in this encounterKettering Health [facility]04-26-2023 History of Present illness Narrative* Marysol Nance PA-C - 08/16/2022 10:00 AM EDT Images from the original note were not included. Rheumatology Outpatient Clinic Date of Service: 08/16/2022 Patient: Elena Felix Medical Record: [id number] Primary Care Physician: Silvana Lundberg MD Last Rheumatology visit: [facility] Referring Provider: Berta Francis MD [address] [facility] [address] Consultation requested by Berta Francis MD for an opinion regarding Ankylosing Spondylitis. [...] years later. He currently follows with a formal service waiter, Dr. Brad Hodges, in [place], [place] who he is happy with. However,reports formal service waiter told him, he is only his third patient with ankylosing spondylitis and so presents to [facility] rheum for assistance on treatment plan. [...] mass areas in the brain. Reports his formal service waiter has considered a TNF-alpha inhibitor again, but [...] PAST MEDICAL HISTORY Diagnosis Date Ankylosing spondylitis ([facility]) Dr Hodges Ankylosing spondylitis ([facility]) Arthritis Back pain Cardiomyopathy ([facility]) Nonischemic Congestive Cerebrovascular small vessel disease 08/24/2016 On ASA DVT (deep venous thrombosis) ([facility]) Esophageal reflux Former smoker Kidney stones Major depressive disorder with single episode, in remission ([facility]) 08/24/2016 Morbid obesity with BMI of 40.0-44.9, adult ([facility]) Neuropathy Obstructive sleep apnea syndrome, severe [...] Ankylosing spondylitis of multiple sites in spine ([facility]) Elena Felix is a 62 year old [...] Patient should continue following with his primary formal service waiter. Follow up as needed. Plan Orders this visit: Office Visit on 08/16/22 CONSULT TO RHEUM/IMMUN DISEASE (M45.0) Ankylosing spondylitis of multiple sites in spine ([facility]) Recommend continuing Methotrexate and leflunomide Recommend [...] uveitis coverage. Continue to follow with primary formal service waiter for medication changes and monitoring. [facility] continue to assist with treatment plan as needed. Return if symptoms worsen or fail to improve. I spent a total of 60 minutes on the date of the service which included preparing to see the patient, eezl-si-hhtg patient care, completing clinical documentation, obtaining and/or reviewing separately obtained history, performing a medically appropriate examination, and counseling and educating the patient/family/caregiver. Marysol Nance PA-C Orthopaedic & Rheumatologic [facility] Date: August 16, 2022 Time: 10:00 AM documented in this encounterKettering Health [facility]04-26-2023 History of Present illness Narrative* Berta Francis MD - 08/16/2022 8:19 AM EDT Images from the original note were not included. Heart, Vascular [facility] Thoracic [facility] Department of Cardiovascular Medicine SECTION OF CLINICAL CARDIOLOGY OUTPATIENT VISIT DATE August 16, 2022 OUTPATIENT VISIT TYPE NEW PRIMARY CARE PHYSICIAN : Silvana Lundberg ([facility]) [facility] [place] [address] REFERRING PHYSICIAN: No referring provider defined for [...] 20 years ago. Used to work in [employer]. Fmaily hx of stroke in mother and father. PAST MEDICAL HISTORY Diagnosis Date Ankylosing spondylitis ([facility]) Dr Hodges Ankylosing spondylitis ([facility]) Arthritis Back pain Cardiomyopathy ([facility]) Nonischemic Congestive Cerebrovascular small vessel disease 08/24/2016 On ASA DVT (deep venous thrombosis) ([facility]) Esophageal reflux Former smoker Kidney stones Major depressive disorder with single episode, in remission ([facility]) 08/24/2016 Morbid obesity with BMI of 40.0-44.9, adult ([facility]) Neuropathy Obstructive sleep apnea syndrome, severe [...] lung disease in setting ofankylosing spondylitis and mcfp MTX use. Plan: - obtain echo here, [...] INFORMATION: Kellen Bryan MD Internal Medicine, PGY-3 [phone] 08/16/2022 12:26 PM [facility] STAFF PHYSICIAN NOTE OF PERSONAL INVOLVEMENT IN [...] and management ofthe patient's care. STAFF PHYSICIAN: Berta Francis MD DATE OF SERVICE: August 16, 2022 documented in this encounterKettering Health [facility] Township04-25-2023 Miscellaneous Notes* Telephone Encounter - Geovanni Castillo - 08/15/2022 12:46 PM EDT Images received from [facility] by mail. Images uploaded to [employer]. Patient has a future appointment on: 08/16/22. Date of last OV: N/A. Geovanni Castillo August 15, 2022 12:46 PM documented in this encounterKettering Health [facility]04-20-2023 NoteNYHC- II Continue GDMT- ASA, lipitor, toprol and aldactone. Diuretic therapy- on hold r/t orthostasis- currently euvolemic without exacerbation Monitor daily weights, I&O, fluid restriction 1.5-2L/day, renal function and electrolytesUnFisher-Titus Medical Center04-20-2023 NoteWill add pyridostigmine regime today- d/w pt to start with 60 mg tid, if no improvement of symptoms in 2-3 days may increase to 90 mg tid, again if no improvement in 2-3 days may then increase to 120 mg tid. Continue midodrine. IN light of HFrEF will not start [facility] RTC with Nazia Cohn for further evaluation and managementUnFisher-Titus Medical Center04-20-2023 NotePatient here for follow up tilt table test done at [facility]. Review of Systems Cardiovascular: Positive for chest pain, dyspnea on exertion and near-syncope. Musculoskeletal: Positive for arthritis, back pain and joint pain. Neurological: Positive for dizziness, light-headedness and loss of balance. All other systems reviewed and are negative.[facility] 08-10-2022 NoteUTP CARDIOLOGY PROGRESS NOTE HPI: Elena Felix is a 61 y.o. male here for 1 month f/U for orthostatic hypotension. Known medical h/o HTN, HPL, NICM- HFrEf. Patient here for follow up tilt table test done at [facility]. Midodrine was increased to 5 mg [...] 90 mg tid, ag (more content not included)...[facility]04-10-2023 History of Present illness Narrative* Izzy Duvall RN - 07/31/2022 2:30 PM EDT Instructed on objectives and procedure of a tilt study documented in this encounterBON [facility])[facility] [place] Work Phone: [phone]) 718-859703-22-2023 NotePatient here for follow up echo and [...] balance. All other systems reviewed and are negative.[facility] 07-12-2022 NoteCardiology Follow Up Progress Note - [facility] HPI: Elena Felix is a 61 [...] Medical History: Diagnosis Date Deep vein thrombosis (CMS/[facility]) Hyperlipidemia Hypertension Nonischemic congestive cardiomyopathy (CMS/HCC) Sleep [...] all major muscle g (more content not included)...[facility]03-22-2023 Miscellaneous Notes* Telephone Encounter - Geovanni Castillo - 07/12/2022 1:54 PM EDT Contacted patient via Phone -no answer; VMM left requesting for cardiac records prior to appointment on 08/16/22. Geovanni Castillo July 12, 2022 1:54 PM documented in this encounterKettering Health [facility]03-15-2023 Milvia BRAGG from cardiac rehab reports patient [...] Maria Teresa Ba NP Division of Cardiology, [facility]- [phone] Pager- [phone] Email- [email or web address]03-15-2023 Milvia BRAGG from cardiac rehab reports patient [...] Maria Teresa Ba NP Division of Cardiology, [facility] [phone] Pager- [phone] Email- [email or web address] Johnan MAHSA from cardiac rehab states that Mr Felix [...] Maria Teresa Ba NP Division of Cardiology, [facility] [phone] Pager- [phone] Email- [email or web address] NotePatient here for 6 mo follow up [...] takes both spironolactone and metoprolol in the AM.[facility] 05-31-2022 NoteCardiology Follow Up Progress Note [...] gain, SOB, worsening LE swelling. [DISCONTINUED] HYDROcodone-acetaminophen (Nemo) 5-325 mg tablet hydrocodone 5 mg-acetaminophen 325 [...] No focal deficits noted. (more content not included)...[facility]01-16-2023 Evaluation note* Encounter Date Diagnosis Assessment [...] from Dr. Hodges's office and his medications. [employer] Other 01-09-2023 Hospital Discharge instructions Patient Education [...] urethra. Follow these instructions at home: Take ebie-nlp-jbaclwk and prescription medicines only as told by [...] 04/09/2006 Document Revised: 03/04/2019 Document Reviewed: 05/14/2017 [employer] Patient Education PASSNFLY. Follow Up Care 09/05/2021 12:02:11 With:ARABELLA MUNIZ, VERENICE Denny Address: [facility] [address], [place] [address]- [phone] When:Within 1 Year(s) [facility] 09-28-2022 History of Present illness Narrative* Merly Marti MD - 01/18/2022 10:38 AM EDT PATIENT NAME: Elena Felix CLINIC NO.: [id number] ATTENDING PHYSICIAN: Merly Marti MD DATE OF [...] PAST MEDICAL HISTORY Diagnosis Date Ankylosing spondylitis ([facility]) Dr Hodges Ankylosing spondylitis ([facility]) Arthritis Back pain Cardiomyopathy ([facility]) Nonischemic Congestive Cerebrovascular small vessel disease 08/24/2016 On ASA DVT (deep venous thrombosis) ([facility]) Esophageal reflux Former smoker Kidney stones Major depressive disorder with single episode, in remission ([facility]) 08/24/2016 Morbid obesity with BMI of 40.0-44.9, adult ([facility]) Neuropathy Obstructive sleep apnea syndrome, severe [...] 0.95 (L) 1.00 - 4.00 k/uL Final Greene% Date Value Ref Range Status 12/28/2021 12.7 % Final Abs Greene Date Value Ref Range Status 12/28/2021 0.69 [...] unprovoked. He was not 100% committed to long term care pharmacist therapy. I reviewed his hypercoag labs and [...] do not hesitate to contact me at [phone]. Merly Marti MD Hematology/Medical Oncology [facility] I spent a total of 15 minutes on the date of the service which included preparing to see the patient, etzd-ub-acdd patient care, completing clinical documentation, obtaining and/or reviewing separately obtained history, ordering medications, tests, or procedures, and communicating with other HCPs (not separately reported). Medical Decision Making: Medical Decision Making Level: 1 - N/A CC: Silvana Lundberg MD documented in this encounterKettering Health [facility] Township09-12-2022 Miscellaneous Notes* Telephone Encounter - Panfilo Carranza [...] next appointment as well, documented in this encounterKettering Health [facility]09-12-2022 Miscellaneous Notes* Telephone Encounter - Meaghan De [...] next appointment as well, documented in this encounterKettering Health [facility] Township09-07-2022 History of Present illness Narrative* Merly Marti MD - 12/28/2021 2:43 PM EDT PATIENT NAME: Elena Felix CLINIC NO.: [id number] ATTENDING PHYSICIAN: Merly Marti MD DATE OF SERVICE: December 28, [address] Merly Marti [address] [place] [address] here is an update on a follow [...] PAST MEDICAL HISTORY Diagnosis Date Ankylosing spondylitis ([facility]) Dr Hodges Ankylosing spondylitis ([facility]) Arthritis Back pain Cardiomyopathy ([facility]) Nonischemic Congestive Cerebrovascular small vessel disease 08/24/2016 On ASA DVT (deep venous thrombosis) ([facility]) Esophageal reflux Former smoker Kidney stones Major depressive disorder with single episode, in remission ([facility]) 08/24/2016 Morbid obesity with BMI of 40.0-44.9, adult ([facility]) Neuropathy Obstructive sleep apnea syndrome, severe [...] 12/15/2016 1.98 1.00 - 4.00 k/uL Final Greene% Date Value Ref Range Status 12/15/2016 10.6 % Final Abs Greene Date Value Ref Range Status 12/15/2016 0.99 [...] unprovoked. He was not 100% committed to long term care pharmacist theraoy and is undergoing evaluation with hyper coag panel to decide if Ok to stop therapy and or he needs to resume, Will follow up on the blood work and discuss with him Thank you for the kind referral. If there are any questions and or concerns please do not hesitate to contact me at [phone]. Merly Marti MD Hematology/Medical Oncology [facility] Ryder spent a total of 20 minutes on the date of the service which included preparing to see the patient, ylwq-at-mqrw patient care, completing clinical documentation, obtaining and/or reviewing separately obtained history, ordering medications, tests, or procedures, and communicating with other HCPs (not separately reported). Medical Decision Making: Medical Decision Making Level: 1 - N/A CC: Silvana Lundberg MD documented in this encounterKettering Health [facility]08-09-2022 NoteEXAMINATION: XR CHEST 2 V HISTORY: COVID-19 [...] Electronically authenticated by: MAJOR REA Date: 2021-11-29 19:09[facility]06-01-2022 Nurse Note* Annmarie Ralph MA - 09/21/2021 3:46 PM EDT Patient was in ER yesterday due to Bronchitis. Annmarie Ralph MA documented in this encounterKettering Health [facility]06-01-2022 History of Present illness Narrative* Merly Marti MD - 09/21/2021 3:40 PM EDT Images from the original note were not included. PATIENT NAME: Elena Felix [facility] NO.: [id number] ATTENDING PHYSICIAN: Merly Marti MD DATE OF SERVICE: September 21, [address] Silvana Lundberg thank you for referring Mr. Elena Felix for an opinion regarding DVT. CHIEF COMPLAINT: DVT HPI: Elena Felix is a 61 year old year old male with past medical history significant for congestive heart failure followed at [facility], benign prostatic hypertrophy as well as ankylosing spondylitis who had undergone a [id number] PSF which was complicated by C. difficile [...] oftherapy. 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 due [...] PAST MEDICAL HISTORY Diagnosis Date Ankylosing spondylitis ([facility]) Dr Hodges Ankylosing spondylitis ([facility]) Arthritis Back pain Cardiomyopathy ([facility]) Nonischemic Congestive Cerebrovascular small vessel disease 08/24/2016 On ASA DVT (deep venous thrombosis) ([facility]) Esophageal reflux Former smoker Kidney stones Major depressive disorder with single episode, in remission ([facility]) 08/24/2016 Morbid obesity with BMI of 40.0-44.9, adult ([facility]) Neuropathy Obstructive sleep apnea syndrome, severe [...] 12/15/2016 1.98 1.00 - 4.00 k/uL Final Greene% Date Value Ref Range Status 12/15/2016 10.6 % Final Abs Greene Date Value Ref Range Status 12/15/2016 0.99 [...] me to participate in Mr. Elena Felix [facility], if there are any questions or concerns please do not hesitate to contact me at the number below. Merly Marti M.D. Hematology/Medical Oncology [facility] [phone] CC: Silvana Lundberg MD I spent a total of 50 minutes on the date of the service which included preparing to see the patient, rcml-fy-jvot patient care, completing clinical documentation, obtaining and/or reviewing separately obtained history, performing a medically appropriate examination, counseling and educating the pat ient/family/caregiver and ordering medications, tests, or procedures. documented in this encounterKettering Health [facility]08-19-2017 History of Past illness Narrative* Problem Noted Date Resolved Date TIFFANIE (acute kidney injury) 12/09/20162016 Anticoagulation management encounter 10/27/2016 10/30/2016 Wound drainage 09/23/2016 10/30/2016 Pneumonia 12/15/2016 documented as of this encounter (statuses as of 09/16/2021) [address]19-2017 History of Past illness Narrative* Problem Noted Date Resolved Date TIFFANIE (acute kidney injury) 12/09/20162016 Anticoagulation management encounter 10/27/2016 10/30/2016 Wound drainage 09/23/2016 10/30/2016 Pneumonia 12/15/2016 documented as of this encounter (statuses as of 09/29/2021) [address]19-2017 History of Past illness Narrative* Problem Noted Date Resolved Date TIFFANIE (acute kidney injury) 12/09/20162016 Anticoagulation management encounter 10/27/2016 10/30/2016 Wound drainage 09/23/2016 10/30/2016 Pneumonia 12/15/2016 documented as of this encounter (statuses as of 12/28/2021) [address]19-2017 History of Past illness Narrative* Problem Noted Date Resolved Date TIFFANIE (acute kidney injury) 12/09/20162016 Anticoagulation management encounter 10/27/2016 10/30/2016 Wound drainage 09/23/2016 10/30/2016 Pneumonia 12/15/2016 documented as of this encounter (statuses as of 01/02/2022) [address]19-2017 History of Past illness Narrative* Problem Noted Date Resolved Date TIFFANIE (acute kidney injury) 12/09/20162016 Anticoagulation management encounter 10/27/2016 10/30/2016 Wound drainage 09/23/2016 10/30/2016 Pneumonia 12/15/2016 documented as of this encounter (statuses as of 01/18/2022) [address]19-2017 History of Past illness Narrative* Problem Noted Date Resolved Date TIFFANIE (acute kidney injury) 12/09/20162016 Anticoagulation management encounter 10/27/2016 10/30/2016 Wound drainage 09/23/2016 10/30/2016 Pneumonia 12/15/2016 documented as of this encounter (statuses as of 07/12/2022) [address]19-2017 History of Past illness Narrative* Problem Noted Date Resolved Date TIFFANIE (acute kidney injury) 12/09/20162016 Anticoagulation management encounter 10/27/2016 10/30/2016 Wound drainage 09/23/2016 10/30/2016 Pneumonia 12/15/2016 documented as of this encounter (statuses as of 08/15/2022) [address]19-2017 History of Past illness Narrative* Problem Noted Date Resolved Date TIFFANIE (acute kidney injury) 12/09/20162016 Anticoagulation management encounter 10/27/2016 10/30/2016 Wound drainage 09/23/2016 10/30/2016 Pneumonia 12/15/2016 documented as of this encounter (statuses as of 08/16/2022) [address]19-2017 History of Past illness Narrative* Problem Noted Date Resolved Date TIFFANIE (acute kidney injury) 12/09/20162016 Anticoagulation management encounter 10/27/2016 10/30/2016 Wound drainage 09/23/2016 10/30/2016 Pneumonia 12/15/2016 documented as of this encounter (statuses as of 08/16/2022) [address]19-2017 History of Past illness Narrative* Problem Noted Date Resolved Date TIFFANIE (acute kidney injury) 12/09/20162016 Anticoagulation management encounter 10/27/2016 10/30/2016 Wound drainage 09/23/2016 10/30/2016 Pneumonia 12/15/2016 documented as of this encounter (statuses as of 08/28/2022) [address]19-2017 History of Past illness Narrative* Problem Noted Date Resolved Date TIFFANIE (acute kidney injury) 12/09/20162016 Anticoagulation management encounter 10/27/2016 10/30/2016 Wound drainage 09/23/2016 10/30/2016 Pneumonia 12/15/2016 documented as of this encounter (statuses as of 08/30/2022) [address]19-2017 History of Past illness Narrative* Problem Noted Date Resolved Date TIFFANIE (acute kidney injury) 12/09/20162016 Anticoagulation management encounter 10/27/2016 10/30/2016 Wound drainage 09/23/2016 10/30/2016 Pneumonia 12/15/2016 documented as of this encounter (statuses as of 09/19/2022) [address]19-2017 History of Past illness Narrative* Problem Noted Date Resolved Date TIFFANIE (acute kidney injury) 12/09/20162016 Anticoagulation management encounter 10/27/2016 10/30/2016 Wound drainage 09/23/2016 10/30/2016 Pneumonia 12/15/2016 documented as of this encounter (statuses as of 10/05/2022) [address]19-2017 History of Past illness Narrative* Problem Noted Date Resolved Date TIFFANIE (acute kidney injury) 12/09/20162016 Anticoagulation management encounter 10/27/2016 10/30/2016 Wound drainage 09/23/2016 10/30/2016 Pneumonia 12/15/2016 documented as of this encounter (statuses as of 10/06/2022) [address]19-2017 History of Past illness Narrative* Problem Noted Date Resolved Date TIFFANIE (acute kidney injury) 12/09/20162016 Anticoagulation management encounter 10/27/2016 10/30/2016 Wound drainage 09/23/2016 10/30/2016 Pneumonia 12/15/2016 documented as of this encounter (statuses as of 10/16/2022) [address]19-2017 History of Past illness Narrative* Problem Noted Date Resolved Date TIFFANIE (acute kidney injury) 12/09/20162016 Anticoagulation management encounter 10/27/2016 10/30/2016 Wound drainage 09/23/2016 10/30/2016 Pneumonia 12/15/2016 documented as of this encounter (statuses as of 10/17/2022) [facility]08-19-2017 History of Past illness Narrative* Problem Noted Date Resolved Date TIFFANIE (acute kidney injury) 12/09/20162016 Anticoagulation management encounter 10/27/2016 10/30/2016 Wound drainage 09/23/2016 10/30/2016 Pneumonia 12/15/2016 documented as of this encounter (statuses as of 10/17/2022) [facility]08-19-2017 History of Past illness Narrative* Problem Noted Date Resolved Date TIFFANIE (acute kidney injury) 12/09/20162016 Anticoagulation management encounter 10/27/2016 10/30/2016 Wound drainage 09/23/2016 10/30/2016 Pneumonia 12/15/2016 documented as of this encounter (statuses as of 10/23/2022) [address]19-2017 History of Past illness Narrative* Problem Noted Date Diagnosed Date Resolved Date TIFFANIE (acute kidney injury) 12/09/2016 Anticoagulation management encounter 10/27/2016 10/30/2016 Wound drainage 09/23/2016 10/30/2016 Pneumonia 12/15/2016 documented as of this encounter (statuses as of 12/01/2022) [facility]08-19-2017 History of Past illness Narrative* Problem Noted Date Diagnosed Date Resolved Date TIFFANIE (acute kidney injury) 12/09/2016 Anticoagulation management encounter 10/27/2016 10/30/2016 Wound drainage 09/23/2016 10/30/2016 Pneumonia 12/15/2016 documented as of this encounter (statuses as of 02/05/2023) [address]19-2017 History of Past illness Narrative* Problem Noted Date Diagnosed Date Resolved Date TIFFANIE (acute kidney injury) 12/09/2016 Anticoagulation management encounter 10/27/2016 10/30/2016 Wound drainage 09/23/2016 10/30/2016 Pneumonia 12/15/2016 documented as of this encounter (statuses as of 02/23/2023) [facility] Future App[facility]ments Appointment Date:05/04/2023 08:15:00 AM Scheduled Provider:Jerrod BELL MD Location:[facility] Appointment Type:URO Office Visit [facility] evaluation + Plan note Future Appointments Appointment Date:07/21/2024 09:15:00 AM Scheduled Provider:Jerrod BELL MD Location:[facility] Appointment Type:URO Office Visit Diagnostic Tests Pending * PSA Total 07/16/23 [facility] evaluation + Plan note Future Appointments Appointment Date:01/04/2024 10:30:00 AM Scheduled Provider:Jerrod BELL MD Location:[facility] Appointment Type:URO Office Visit Appointment Date:07/21/2024 09:15:00 AM Scheduled Provider:Jerrod BELL MD Location:[facility] Appointment Type:URO Office Visit [facility] Evaluation + Plan note Future Appointments Appointment Date:07/21/2024 09:15:00 AM Scheduled Provider:Jerrod BELL MD Location:[facility] Appointment Type:URO Office Visit [facility] evaluation noteNo Assessments Information Available [facility] Diagnosis Acute deep vein thrombosis (DVT) of distal end of left lower extremity (HCC)- Primary [facility] Diagnosis Acute deep vein thrombosis (DVT) of distal end of left lower extremity (HCC)- Primary [facility] Diagnosis History of DVT (deep vein thrombosis)- Primary Personal history of venous thrombosis and embolism [facility]* Diagnosis Orthostatic hypotension POTS (postural orthostatic tachycardia syndrome) Tachycardia, unspecified documented in this encounter [facility] Work Phone: evaluation note* Diagnosis POTS (postural orthostatic tachycardia syndrome)- Primary Tachycardia, unspecified Lightheadedness Dizziness and giddiness POTS (postural orthostatic tachycardia syndrome) Tachycardia, unspecified [facility]* Diagnosis Lightheadedness- Primary Dizziness and giddiness Change in blood pressure Other abnormal clinical finding SOB (shortness of breath) Shortness of breath POTS (postural orthostatic tachycardia syndrome) Tachycardia, unspecified Exertional dyspnea Other dyspnea and respiratory abnormality Other secondary pulmonary hypertension ([facility]) Autonomic dysfunction Unspecified disorder of autonomic nervous system Ankylosing spondylitis of multiple sites in spine ([facility]) Ankylosing spondylitis Acute deep vein thrombosis (DVT) of distal end of left lower extremity ([facility]) Morbid obesity with BMI of 40.0-44.9, adult ([facility]) Morbid obesity Lightheadedness Dizziness and giddiness POTS (postural orthostatic tachycardia syndrome) Tachycardia, unspecified [facility]* Diagnosis Chronic diastolic congestive heart failure (HCC)- Primary Chronic diastolic heart failure [facility]* Diagnosis Ankylosing spondylitis of multiple sites in spine ([facility]) Ankylosing spondylitis [facility]* Diagnosis Exertional dyspnea Other dyspnea and respiratory abnormality Other secondary pulmonary hypertension ([facility]) [facility]* Diagnosis Disturbance of skin sensation- Primary Lightheadedness Dizziness and giddiness Change in blood pressure Other abnormal clinical finding Orthostatic hypotension Tremulousness Abnormal involuntary movements [facility]* Diagnosis Radiculopathy, lumbar region- Primary Thoracic or lumbosacral neuritis or radiculitis, unspecified Disturbance of skin sensation 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 Pain in right leg Paresthesia of skin Disturbance of skin sensation [facility]* Diagnosis Dilated cardiomyopathy (HCC)- Primary Other primary cardiomyopathies [facility]* Diagnosis Ankylosing spondylitis of multiple sites in spine ([facility])- Primary Ankylosing spondylitis documented [facility] noteNo assessment information availableHol[facility] Work Phone: Evaluation noteNo InformationNort [place] Other Evaluation note* Diagnosis SOB (shortness of breath)- Primary Shortness of breath Coronary artery disease involving [place] coronary artery of [place] heart without angina pectoris Palpitations [facility]* Diagnosis Shortness of breath- Primary Near syncope Syncope and collapse documented [facility] this [facility]* Diagnosis Exertional dyspnea Other dyspnea and respiratory abnormality documented [facility]* Diagnosis Onset Date Resolution Status Cellulitis, toe acute [facility] Work Phone: Evaluation note* Diagnosis Onset Date Resolution Status Cellulitis, toe acute Rash acute Pathological fracture, hip, unspecified, sequela acute [facility] Work Phone: Evaluation note* Diagnosis Closed fracture of hip, left, with delayed healing, subsequent encounter- Primary Ankylosing spondylitis of multiple sites in spine (HCC) Ankylosing spondylitis Acute deep vein thrombosis (DVT) of femoral vein of both lower extremities ([facility]) Morbid obesity with BMI of 40.0-44.9, adult ([facility]) Morbid obesity documented in this encounter [facility] note* Diagnosis Pain Generalized pain documented in this encounter [facility] note* Diagnosis Closed fracture of hip, left, with delayed healing, subsequent encounter- Primary High serum parathyroid hormone (PTH) documented in this encounter [facility] note* Diagnosis Onset Date Resolution Status Cellulitis, toe acute Rash acute Depression acute Left shoulder pain acute Pathological fracture, hip, unspecified, sequela acute [facility] Work Phone: evaluation note* Diagnosis Closed fracture of hip, left, with delayed healing, subsequent encounter- Primary documented in this encounter [facility] note* Diagnosis Closed fracture of hip, left, with delayed healing, subsequent encounter documented in this encounter [facility] note* Diagnosis History of DVT (deep vein thrombosis)- Primary Personal history of venous thrombosis and embolism Monoclonal gammopathy Monoclonal paraproteinemia documented in this encounter [facility] note* Diagnosis Other hyperparathyroidism (HCC)- Primary Other hyperparathyroidism Closed fracture of hip, left, with delayed healing, subsequent encounter High serum parathyroid hormone (PTH) Osteoporosis, unspecified osteoporosis type, unspecified pathological fracture presence Class 3 severe obesity without serious comorbidity with body mass index (BMI) of 40.0 to 44.9 in adult, unspecified obesity type (HCC) documented in this encounter [facility] note* Diagnosis Onset Date Resolution Status Admit Date CHF (congestive heart failure) acute May 13, 2024 10:40am Left cervical radiculopathy acute May 13, 2024 10:40am Lower extremity edema acute Apr 10:40am [facility] Work Phone: Hischtp general Narrative - Reported* Type Description Date Medical History Arthritis of spine Medical History Peripheral neuropathy Medical History Tachycardia Medical History Leg cramps Medical History asthma Surgical History back surgery x 3 Surgical History right hip replaced Surgical History right hand x 2 Hospitalization History see above Hospitalization History infected incision and se psis and blood clot [facility] Other [facility]as[facility] general Narrative - Reported* Type Description Date Medical History Arthritis of spine Medical History Peripheral neuropathy Medical History Tachycardia Medical History Leg cramps Medical History asthma Medical History Left femoral neck fracture Surgical History back surgery x 3 Surgical History right hip replaced Surgical History right hand x 2 Hospitalization History see above Hospitalization History infected incision and se psis and blood clot [facility] Other Hospital course Narrative No data available for this section [facility] Hospital Discharge instructionsAmbulatory Orders* Referral to Pain Management Time Frame: 05/13/24, Location: None Selected [facility] Work Phone: Progress note No data available for this section [facility] reason for referral (narrative)* Outpatient Procedure (Routine) - Authorized Specialty Diagnoses / Procedures Referred By Contac t Referred To Contact [facility] Diagnoses POTS (postural orthostatic tachycardia syndrome) Procedures ECG COMPLETE ECG ROUTINE ECG W/LEAST 12 LDS W/I&R Austin Jose MD [address] [place] [address] [facility] [place] [facility] [place] [address] Referral ID Status Reason Start Date Expiration Date Visits Requested Visits Authorized [id number] Authorized Auto-Generat ed Referral 08/16/2022 08/16/2023 1 1 [facility] for referral (narrative)* Diagnostic Procedure Only (Routine) - Closed Specialty Diagnoses / Procedures Referred By Contac t Referred To Contact MOLECULAR & FUNCTIONAL IMAGING Diagnoses Exertional dyspnea Other secondary pulmonary hypertension (HCC) Procedures NM LUNG VENT / PERF VQ PULMONARY VENTILATION & PERFUSION IMAGING Berta Francis MD [address] [place] [address] Molecular [facility] Functional Imaging [address] [place] [address] Referral ID Status Reason Start Date Expiration Date V isits Requested Visits Authorized [id number] Closed Auto-Generate d Referral 08/16/2022 09/15/2023 1 1 [facility] for referral (narrative)* Outpatient Procedure (Routine) - Authorized Specialty Diagnoses / Procedures Referred By Contac t Referred To Contact [facility] Diagnoses Disturbance of skin sensation Procedures EMG(NEURO/NI) NERVE CONDUCTION STUDIES 9-10 STUDIES Anna Palacios APRN.CNP [address] [place] [address] [address] [place] [address] [place] [address] Referral ID Status Reason Start Date Expiration Date Visits Requested Visits Authorized [id number] Authorized Auto-Generat ed Referral 10/06/2022 10/07/2023 1 1 [facility] for referral (narrative)* Outpatient Procedure (Routine) - Authorized Specialty Diagnoses / Procedures [facility] Diagnoses SOB (shortness of breath) Procedures CARDIOPULMONARY EXERCISE TEST PULMONARY STRESS TESTING Berta Francis MD [address] [place] [address] Respiratory [place] [address] [place] [address] Referral ID Status Reason Start Date Expiration Date Visits Requested Visits Authorized [id number] Authorized Auto-Generat ed Referral 11/17/2022 12/17/2023 1 1 [facility] for referral (narrative)* Diagnostic Procedure Only (Routine) - Closed Specialty Diagnoses / Procedures Referred By Contac t Referred To Contact [facility] Diagnoses Exertional dyspnea Procedures ECHO ECHO TTHRC R-T 2D W/WOM-MODE COMPL SPEC&COLR D Berta Francis MD [id number] [place] [address] Referral ID Status Reason Start Date Expiration Date V isits Requested Visits Authorized [id number] Closed Auto-Generate d Referral 08/31/2022 11/29/2022 1 1 [facility] for referral (narrative)* Diagnostic Procedure Only (Routine) - Authorized Specialty Diagnoses / Procedures Referred By Contac t Referred To Contact XR IMAGING Diagnoses Closed fracture of hip, left, with delayed healing, subsequent encounter High serum parathyroid hormone (PTH) Procedures DXA-FOREARM SKELETON DXA BONE DENSITY STUDY /SITES APPENDICLR Alysha Metcalf MD [address] [place] [address] Xr Imaging [id number] Referral ID Status Reason Start Date Expiration Date Visits Requested Visits Authorized [id number] Authorized Auto-Generat ed Referral 03/09/2025 1 1 T [facility] for visit Narrative* Diagnostic Procedure Only (Routine) - Closed Specialty Diagnoses / Procedures Referred By Contac t Referred To Contact [facility] Diagnoses Exertional dyspnea Procedures ECHO ECHO TTHRC R-T 2D W/WOM-MODE COMPL SPEC&COLR D Berta Francis MD [id number] [facility] [address] [place] [address] Referral ID Status Reason Start Date Expiration Date V isits Requested Visits Authorized [id number] Closed Auto-Generate d Referral 08/31/2022 11/29/2022 1 1 [facility] for visit Narrative* Diagnostic Procedure Only (Routine) - Closed Specialty Diagnoses / Procedures Referred By Contac t Referred To Contact XR IMAGING Diagnoses Pain Procedures XR HIP GENERAL 3V PELV/AP/LAT LEFT RADEX HIP UNILATERAL WITH PELVIS 2-[place] [address] [place] [address] [place] [address] Referral ID Status Reason Start Date Expiration Date V isits Requested Visits Authorized [id number] Closed Auto-Generate d Referral 09/25/2023 10/24/2024 1 1 [facility] for visit Narrative* Diagnostic Procedure Only (Routine) - Closed Specialty Diagnoses / Procedures Referred By Contac t Referred To Contact XR IMAGING Diagnoses Closed fracture of hip, left, with delayed healing, subsequent encounter Procedures XR HIP GENERAL 3V PELV/AP/LAT LEFT RADEX HIP UNILATERAL WITH PELVIS 2-[address] [place] [address] [place] [address] [place] [address] Referral ID Status Reason Start Date Expiration Date V isits Requested Visits Authorized [id number] Closed Auto-Generate d Referral 11/28/2023 12/27/2024 1 1 [facility] Advance Directives Advance Directive Response Recorded Date/ Time Advance Directives No January 31, 2017 11:35am Documents on File Type Date Recorded Patient Heading Maker Expl anation Advance Directive(s) 11/29/2017 5:55 AM Advance Directive(s) 11/19/2017 8:19 AM Advance Directive(s) 11/19/2017 10:21 AM Advance Directive(s) 12/10/2016 12:37 PM Advance Directive(s) 09/24/2016 2:38 PM Advance Directive(s) 08/24/2016 12:03 PM Advance Directive(s) 08/24/2016 12:04 PM Documents on File Type Date Recorded Patient Heading Maker Expl anation Advance Directive(s) 08/24/2016 12:04 PM Documents on File Type Date Recorded Patient Heading Maker Expl anation Advance Directive(s) 08/24/2016 12:04 PM Advance Directive Response Recorded Date/ Time Advance Directives No January 31, 2017 10:35am Chief Complaint and Reason for Visit Chief Complaint vaccine ins Chief Complaint L03.116 Chief Complaint M45.0 M15.0 Z79.899 Amb Documentation rash on both legs Reason for Visit Cellulitis, toe Chief Complaint Amb Documentation rash on both legs med refills Reason for Visit Cellulitis, toe Rash Pathological fracture, hip, unspecified, sequela Chief Complaint rash on both legs med refills M45.0 M15.0 Z79.899 4WK FOLLOW UP Reason for Visit Cellulitis, toe Rash Depression Left shoulder pain Pathological fracture, hip, unspecified, sequela Chief Complaint Admit Date Med f/u May 13, 2024 1 0:40am Reason for Visit Admit Date CHF (congestive heart failure) April 242024 10:40am Left cervical radiculopathy April 10:40am Lower extremity edema May 13, 2024 10:40am Summary Purpose Family History Relationship Condition Age at Onset Recorded Date/T neil father Unknown Not Specified Unknown Relationship Condition Age at Onset Recorded Date/T neil father Unknown mother Unknown Reason for Referral Specialty Diagnoses / Procedures Referred By Chen anne Referred To Contact [facility] Diagnoses Closed fracture of hip, left, with delayed healing, subsequent encounter Procedures CONSULT TO PHYSICAL THERAPY PHYSICAL THERAPY EVALUATION HIGH COMPLEX 45 MINS Esther Pelayo PA-C [address] [id number] [facility] [place] [address] [place] [address] Referral ID Status Reason Start Date Expiration Date Visits Requested Visits Authorized [id number] Pending Review Auto-Generat ed Referral 11/29/2023 11/28/2024 1 1 Specialty Diagnoses / Procedures Referred By Chen anne Referred To Contact XR IMAGING Diagnoses Closed fracture of hip, left, with delayed healing, subsequent encounter Procedures XR HIP GENERAL 3V PELV/AP/LAT LEFT RADEX HIP UNILATERAL WITH PELVIS 2-[place] [address] [id number] [facility] [place] [address] Referral ID Status Reason Start Date Expiration Date V isits Requested Visits Authorized [id number] Closed Auto-Generate d Referral 11/28/2023 12/27/2024 1 1 Specialty Diagnoses / Procedures Referred By Contac t Referred To Contact Diagnoses Closed fracture of hip, left, with delayed healing, subsequent encounter High serum parathyroid hormone (PTH) Procedures CONSULT TO HIP FRACTURE LIAISON SERVICE (FRAGILITY) OFFICE/OUTPATIENT [place] [facility] [address] [place] [address] [place] [address] Referral ID Status Reason Start Date Expiration Date Visits Requested Visits Authorized [id number] Authorized PCP Requested Referral 09/28/2023 09/27/2024 1 1 Specialty Diagnoses / Procedures Referred By Contac t Referred To Contact Endocrinology Diagnoses Closed fracture of hip, left, with delayed healing, subsequent encounter Procedures CONSULT TO ENDOCRINOLOGY OFFICE/OUTPATIENT [place] [facility] 60 [place] [address] [place] [address] Referral ID Status Reason Start Date Expiration Date Visits Requested Visits Authorized [id number] Authorized PCP Requested Referral 09/27/2023 09/26/2024 1 1 Specialty Diagnoses / Procedures Referred By Contac t Referred To Contact MR IMAGING Diagnoses Dilated cardiomyopathy (HCC) Procedures MRI CARDIAC VELOCITY FLOW MAP CARDIAC MRI FOR VELOCITY FLOW MAPPING Berta Francis MD [address] [place] [id number] Mr Imaging Referral ID Status Reason Start Date Expiration Date Visits Requested Visits Authorized [id number] Pending Review Auto-Generat ed Referral 10/17/2022 11/16/2023 1 1 Specialty Diagnoses / Procedures Referred By Contac t Referred To Contact MR IMAGING Diagnoses Dilated cardiomyopathy (HCC) Procedures MRI CARDIAC MORPH FUNC WO/W IVCON CARDIAC MRI W/WO CONTRAST & FURTHER SEQ Berta Francis MD [address] [place] [address] Mr Imaging Referral ID Status Reason Start Date Expiration Date Visits Requested Visits Authorized [id number] Pending Review Auto-Generat ed Referral 10/17/2022 11/16/2023 1 1 Specialty Diagnoses / Procedures Referred By Contac t Referred To Contact Neurology Diagnoses Lightheadedness Change in blood pressure Procedures CONSULT TO NEUROLOGY OFFICE/OUTPATIENT [facility] 60-74 MINUTES Berta Francis MD [address] [place], [place] [phone] Referral ID Status Reason Start Date Expiration Date Visits Requested Visits Authorized [id number] Authorized PCP Requested Referral 08/16/2022 08/16/2023 1 1 Specialty Diagnoses / Procedures Referred By Contac t Referred To Contact Rheumatology Diagnoses Ankylosing spondylitis of multiple sites in spine (HCC) Procedures CONSULT TO RHEUM/IMMUN DISEASE OFFICE/OUTPATIENT [facility] 60-74 MINUTES Berta Francis MD [address] [place], [place] [phone] Referral ID Status Reason Start Date Expiration Date V isits Requested Visits Authorized [id number] Closed PCP Requested Referral 08/16/2022 08/16/2023 1 1 Specialty Diagnoses / Procedures Referred By Contac t Referred To Contact Diagnoses Lightheadedness POTS (postural orthostatic tachycardia syndrome) Autonomic dysfunction Procedures CONSULT TO [facility] OFFICE/OUTPATIENT [facility] 60-74 MINUTES Berta Francis MD [address] [place], [place] [phone] Referral ID Status Reason Start Date Expiration Date Visits Requested Visits Authorized [id number] Authorized PCP Requested Referral 08/16/2022 08/16/2023 1 1 Specialty Diagnoses / Procedures Referred By Contac t Referred To Contact MOLECULAR & FUNCTIONAL IMAGING Diagnoses Exertional dyspnea Other secondary pulmonary hypertension (HCC) Procedures NM LUNG VENT / PERF VQ PULMONARY VENTILATION & PERFUSION IMAGING Berta Francis MD [address] [place] [id number] [facility] [address] [place] [address] Referral ID Status Reason Start Date Expiration Date Visits Requested Visits Authorized [id number] Pending Review Auto-Generat ed Referral 08/16/2022 09/15/2023 1 1 Specialty Diagnoses / Procedures Referred By Contac t Referred To Contact [facility] Diagnoses Exertional dyspnea Procedures ECHO ECHO TTHRC R-T 2D W/WOM-MODE COMPL SPEC&COLR D Berta Francis MD [address] [place] [address] [facility] [place] [phone] Referral ID Status Reason Start Date Expiration Date Visits Requested Visits Authorized [id number] Pending Review Auto-Generat ed Referral 08/16/2022 08/16/2023 1 1 Specialty Diagnoses / Procedures Referred By Contac t Referred To Contact [facility] Diagnoses Lightheadedness Change in blood pressure Procedures ECG COMPLETE ECG ROUTINE ECG W/LEAST 12 LDS W/I&R Berta Francis MD [address] [place] [address] [place] [phone] [place] [phone] Referral ID Status Reason Start Date Expiration Date V isits Requested Visits Authorized [id number] Closed Auto-Generate d Referral 06/27/2022 06/27/2023 1 1 Specialty Diagnoses / Procedures Referred By Contac t Referred To Contact Diagnoses Orthostatic hypotension POTS (postural orthostatic tachycardia syndrome) Procedures Tilt Table Test Carlos Krishna APRN - JARAD [address] [facility] [place] [address] Referral ID Status Reason Start Date Expiration Date Visits Re quested Visits Authorized [id number] Closed 07/24/2022 07/24/2023 1 1 Additional Source Comments (unrecognized sect ion and content) No Status Records FoundNo Status Records FoundNo Status Records FoundNo Status Records FoundNo Status Records FoundNo Status Records FoundNo Status Records FoundNo Status Records FoundNo Status Records FoundNo Status Records FoundNo Status Records Found INFORMATION SOURCE (unrecogn ized section and content) DATE CREATED AUTHOR 06/29/2021 [facility] DATE CREATED AUTHOR AUTHOR'S ORGANIZ ATION 08/01/2022 [facility] DATE CREATED AUTHOR AUTHOR'S ORGANIZ ATION 09/07/2022 [facility] DATE CREATED AUTHOR AUTHOR'S ORGANIZ ATION 10/04/2022 [facility] DATE CREATED AUTHOR AUTHOR'S ORGANIZ ATION 08/01/2023 [facility] EPIC DATE CREATED AUTHOR AUTHOR'S ORGANIZ ATION 09/16/2023 [facility] DATE CREATED AUTHOR AUTHOR'S ORGANIZ ATION 12/05/2023 [facility] DATE CREATED AUTHOR AUTHOR'S ORGANIZ ATION 12/29/2023 [facility] DATE CREATED AUTHOR AUTHOR'S ORGANIZ ATION 01/06/2024 [facility] DATE CREATED AUTHOR AUTHOR'S ORGANIZ ATION 04/10/2024 [facility] Source Comments (unrecognize d section and content) In the event this informatio n is protected by the Federal Confidentiality of Alcohol and Drug Abuse Patient Records regulations: The Federal rules restrict any use of the information to criminally investigate or prosecute any alcohol or drug abuse patient.[facility] the event this information is protected by the Federal Confidentiality of Alcohol and Drug Abuse Patient Records regulations: The Federal rules restrict any use of the information to criminally investigate or prosecute any alcohol or drug abuse patient.[facility] Township[facility] the event this information is protected by the Federal Confidentiality of Alcohol and Drug Abuse Patient Records regulations: The Federal rules restrict any use of the information to criminally investigate or prosecute any alcohol or drug abuse patient.[facility] the event this information is protected by the Federal Confidentiality of Alcohol and Drug Abuse Patient Records regulations: The Federal rules restrict any use of the information to criminally investigate or prosecute any alcohol or drug abuse patient.[facility] the event this information is protected by the Federal Confidentiality of Alcohol and Drug Abuse Patient Records regulations: The Federal rules restrict any use of the information to criminally investigate or prosecute any alcohol or drug abuse patient.[facility] TownshipIn the event this information is protected by the Federal Confidentiality of Alcohol and Drug Abuse Patient Records regulations: The Federal rules restrict any use of the information to criminally investigate or prosecute any alcohol or drug abuse patient.[facility] the event this information is protected by the Federal Confidentiality of Alcohol and Drug Abuse Patient Records regulations: The Federal rules restrict any use of the information to criminally investigate or prosecute any alcohol or drug abuse patient.[facility] the event this information is protected by the Federal Confidentiality of Alcohol and Drug Abuse Patient Records regulations: The Federal rules restrict any use of the information to criminally investigate or prosecute any alcohol or drug abuse patient.[facility] Township[facility] the event this information is protected by the Federal Confidentiality of Alcohol and Drug Abuse Patient Records regulations: The Federal rules restrict any use of the information to criminally investigate or prosecute any alcohol or drug abuse patient.[facility] Township[facility] the event this information is protected by the Federal Confidentiality of Alcohol and Drug Abuse Patient Records regulations: The Federal rules restrict any use of the information to criminally investigate or prosecute any alcohol or drug abuse patient.[facility] Township[facility] the event this information is protected by the Federal Confidentiality of Alcohol and Drug Abuse Patient Records regulations: The Federal rules restrict any use of the information to criminally investigate or prosecute any alcohol or drug abuse patient.[facility] Township[facility] the event this information is protected by the Federal Confidentiality of Alcohol and Drug Abuse Patient Records regulations: The Federal rules restrict any use of the information to criminally investigate or prosecute any alcohol or drug abuse patient.[facility] Township[facility] the event this information is protected by the Federal Confidentiality of Alcohol and Drug Abuse Patient Records regulations: The Federal rules restrict any use of the information to criminally investigate or prosecute any alcohol or drug abuse patient.[facility] Township[facility] the event this information is protected by the Federal Confidentiality of Alcohol and Drug Abuse Patient Records regulations: The Federal rules restrict any use of the information to criminally investigate or prosecute any alcohol or drug abuse patient.[facility] TownshipIn the event this information is protected by the Federal Confidentiality of Alcohol and Drug Abuse Patient Records regulations: The Federal rules restrict any use of the information to criminally investigate or prosecute any alcohol or drug abuse patient.[facility] TownshipIn the event this information is protected by the Federal Confidentiality of Alcohol and Drug Abuse Patient Records regulations: The Federal rules restrict any use of the information to criminally investigate or prosecute any alcohol or drug abuse patient.[facility] TownshipIn the event this information is protected by the Federal Confidentiality of Alcohol and Drug Abuse Patient Records regulations: The Federal rules restrict any use of the information to criminally investigate or prosecute any alcohol or drug abuse patient.[facility] TownshipIn the event this information is protected by the Federal Confidentiality of Alcohol and Drug Abuse Patient Records regulations: The Federal rules restrict any use of the information to criminally investigate or prosecute any alcohol or drug abuse patient.[facility] TownshipIn the event this information is protected by the Federal Confidentiality of Alcohol and Drug Abuse Patient Records regulations: The Federal rules restrict any use of the information to criminally investigate or prosecute any alcohol or drug abuse patient.[facility] TownshipIn the event this information is protected by the Federal Confidentiality of Alcohol and Drug Abuse Patient Records regulations: The Federal rules restrict any use of the information to criminally investigate or prosecute any alcohol or drug abuse patient.[facility] TownshipIn the event this information is protected by the Federal Confidentiality of Alcohol and Drug Abuse Patient Records regulations: The Federal rules restrict any use of the information to criminally investigate or prosecute any alcohol or drug abuse patient.[facility] the event this information is protected by the Federal Confidentiality of Alcohol and Drug Abuse Patient Records regulations: The Federal rules restrict any use of the information to criminally investigate or prosecute any alcohol or drug abuse patient.[facility] TownshipIn the event this information is protected by the Federal Confidentiality of Alcohol and Drug Abuse Patient Records regulations: The Federal rules restrict any use of the information to criminally investigate or prosecute any alcohol or drug abuse patient.[facility] TownshipIn the event this information is protected by the Federal Confidentiality of Alcohol and Drug Abuse Patient Records regulations: The Federal rules restrict any use of the information to criminally investigate or prosecute any alcohol or drug abuse patient.[facility]In the event this information is protected by the Federal Confidentiality of Alcohol and Drug Abuse Patient Records regulations: The Federal rules restrict any use of the information to criminally investigate or prosecute any alcohol or drug abuse patient.[facility]In the event this information is protected by the Federal Confidentiality of Alcohol and Drug Abuse Patient Records regulations: The Federal rules restrict any use of the information to criminally investigate or prosecute any alcohol or drug abuse patient.[facility] TownshipIn the event this information is protected by the Federal Confidentiality of Alcohol and Drug Abuse Patient Records regulations: The Federal rules restrict any use of the information to criminally investigate or prosecute any alcohol or drug abuse patient.[facility] TownshipIn the event this information is protected by the Federal Confidentiality of Alcohol and Drug Abuse Patient Records regulations: The Federal rules restrict any use of the information to criminally investigate or prosecute any alcohol or drug abuse patient.[facility]In the event this information is protected by the Federal Confidentiality of Alcohol and Drug Abuse Patient Records regulations: The Federal rules restrict any use of the information to criminally investigate or prosecute any alcohol or drug abuse patient.[facility]In the event this information is protected by the Federal Confidentiality of Alcohol and Drug Abuse Patient Records regulations: The Federal rules restrict any use of the information to criminally investigate or prosecute any alcohol or drug abuse patient.[facility] TownshipIn the event this information is protected by the Federal Confidentiality of Alcohol and Drug Abuse Patient Records regulations: The Federal rules restrict any use of the information to criminally investigate or prosecute any alcohol or drug abuse patient.[facility] TownshipIn the event this information is protected by the Federal Confidentiality of Alcohol and Drug Abuse Patient Records regulations: The Federal rules restrict any use of the information to criminally investigate or prosecute any alcohol or drug abuse patient.[facility] TownshipIn the event this information is protected by the Federal Confidentiality of Alcohol and Drug Abuse Patient Records regulations: The Federal rules restrict any use of the information to criminally investigate or prosecute any alcohol or drug abuse patient.[facility] Care Teams (unrecognized sec tion and content) Team Status: Active Member Role Status Dates Silvana Lundberg MD Primary Care Provider Active Team Status: Active Member Role Status Dates Silvana Lundberg MD Primary Care Provider Active Start: March 17, 2024 Alysha Emanuel MD Attending Provider Active Star t: March 17, 2024 Team Status: Active Member Role Status Dates Silvana Lundberg MD Primary Care Provider Active Start: April 07, 2024 Brad Hodges MD Attending Provider Active St art: April 07, 2024 Team Status: Inactive Member Role Status Dates Silvana Lundberg MD Primary Care Provide r, Attending Provider Active Start: May 13, 2024 End: May 13, 2024 Team Status: Active Member Role Status Dates Silvana Lundberg MD Primary Care Provider Active Team Status: Inactive Member Role Status Dates Eugenia Landon APRN ESCALATOR ATTENDANT-C Attending Provider Act audelia Start: July 06, 2023 End: July 06, 2023 Silvana Lundberg MD Primary Care Provider Active Start: July 06, 2023 End: July 06, 2023 Team Status: Active Member Role Status Dates Silvana Lundberg MD Primary Care Provide r, Attending Provider Active Start: August 02, 2023 Team Status: Inactive Member Role Status Dates Silvana Lundberg MD Primary Care Provide r, Attending Provider Active Start: August 31, 2023 End: August 31, 2023 Team Status: Inactive Member Role Status Dates Silvana Lundberg MD Primary Care Provider Active Start: 2023 End: 2023 Safia Enrique NP-C Attending Provider Active Start: 2023 End: 2023 Team Status: Active Member Role Status Dates Silvana Lundberg MD Primary Care Provider Active Start: September 27, 2023 Misty Wallace MD Attending Provider Active Start: September 27, 2023 Team Status: Inactive Member Role Status Dates Silvana Lundberg MD Primary Care Provide r, Attending Provider Active Start: October 01, 2023 End: October 01, 2023 Team Status: Active Member Role Status Dates PHYSICIAN NO FAMILY Primary Care Provider Active Start: June 20, 2023 Keeley More Attending Provider Active Start: Stephani torres 2023 Agricultural Research Technologist Relationship Specialty Start Date End Date Silvana Lundberg MD [address] [facility] [place] [address] PCP - General Family Practice 07/15/15 Samuel Burnette Referring Pain Management 07/15/15 Agricultural Research Technologist Relationship Specialty Start Date End Date Sivlana Lundberg MD [address] [facility] [place] [address] PCP - General Family Practice 07/15/15 Samuel Burnette Referring Pain Management 07/15/15 Agricultural Research Technologist Relationship Specialty Start Date End Date Silvana Lundberg MD [address] [place] [facility] [place] [address] PCP - General Family Practice 07/15/15 Samuel Burnette Referring Pain Management 07/15/15 Agricultural Research Technologist Relationship Specialty Start Date End Date Silvana Lundberg MD [address] [place] [facility] [place] [address] PCP - General Family Practice 07/15/15 Samuel Burnette Referring Pain Management 07/15/15 Agricultural Research Technologist Relationship Specialty Start Date End Date Silvana Lundberg MD [address] [place] [facility] [place] [address] PCP - General Family Medicine 07/15/15 Samuel Burnette Referring Pain Management 07/15/15 Agricultural Research Technologist Relationship Specialty Start Date End Date Silvana Lundberg MD [address] [place] [facility] [place] [address] PCP - General Family Medicine 07/15/15 Samuel Burnette [address] [place] [facility] [place] [address] Referring Pain Management 07/15/15 Agricultural Research Technologist Relationship Specialty Start Date End Date Silvana Lundberg MD [address] [place] [place] [address] PCP - General Family Medicine 07/25/22 Agricultural Research Technologist Relationship Specialty Start Date End Date Silvana Lundberg MD [address] [place] [facility] [place] [address] PCP - General Family Medicine 07/15/15 Samuel Burnette [address] [place] [facility] [place] [address] Referring Pain Management 07/15/15 Maria Teresa Ba, INDUSTRIAL HYGIENE MANAGER [address] [place] [address] Family Medicine 08/16/22 Agricultural Research Technologist Relationship Specialty Start Date End Date Silvana Lundberg MD [address] [place] [facility] [place] [address] PCP - General Family Medicine 07/15/15 [facility] [address] [place] [facility] [place] [address] Referring Pain Management 07/15/15 Maria Teresa Ba, INDUSTRIAL HYGIENE MANAGER [address] [place] [address] Family Medicine 08/16/22 Agricultural Research Technologist Relationship Specialty Start Date End Date Silvana Lundberg MD [address] [place] [facility] [place] [address] PCP - General Family Medicine 07/15/15 Samuel Burnette [address] [place] [facility] [place] [address] Referring Pain Management 07/15/15 Maria Teresa Ba, INDUSTRIAL HYGIENE MANAGER [address] [place] [address] Family Medicine 08/16/22 Agricultural Research Technologist Relationship Specialty Start Date End Date Silvana Lundberg MD [address] [place] [facility] [place] [address] PCP - General Family Medicine 07/15/15 Samuel Burnette [address] [place] [facility] [place] [address] [phone] Referring Pain Management 07/15/15 Maria Teresa Ba, INDUSTRIAL HYGIENE MANAGER [address] [place] [address] Family Medicine 08/16/22 Agricultural Research Technologist Relationship Specialty Start Date End Date Silvana Lundberg MD [address] [place] [facility] [place] [address] PCP - General Family Medicine 07/15/15 Samuel Burnette [address] [place] [facility] [place] [address] Referring Pain Management 07/15/15 Maria Teresa Ba, INDUSTRIAL HYGIENE MANAGER [address] [place] [address] Family Medicine 08/16/22 Agricultural Research Technologist Relationship Specialty Start Date End Date Silvana Lundberg MD [address] [place] [facility] [place] [address] PCP - General Family Medicine 07/15/15 Samuel Burnette [address] [place] [facility] [place] [address] Referring Pain Management 07/15/15 Maria Teresa Ba, INDUSTRIAL HYGIENE MANAGER [address] [place] [address] Family Medicine 08/16/22 Agricultural Research Technologist Relationship Specialty Start Date End Date Silvana Lundberg MD [address] [place] [facility] [place] [address] PCP - General Family Medicine 07/15/15 Samuel Burnette [address] [place] [facility] [place] [address] Referring Pain Management 07/15/15 Maria Teresa Ba, INDUSTRIAL HYGIENE MANAGER [address] [place] [address] Family Medicine 08/16/22 Agricultural Research Technologist Relationship Specialty Start Date End Date Silvana Lundberg MD [address] [place] [facility] [place] [address] PCP - General Family Medicine 07/15/15 Samuel Burnette [address] [place] [facility] [place] [address] Referring Pain Management 07/15/15 Maria Teresa Ba, INDUSTRIAL HYGIENE MANAGER [address] [place] [address] Family Medicine 08/16/22 Agricultural Research Technologist Relationship Specialty Start Date End Date Silvana Lundberg MD [address] [place] [facility] [place] [address] PCP - General Family Medicine 07/15/15 Samuel Burnette [address] [place] [facility] [place] [address] Referring Pain Management 07/15/15 Maria Teresa Ba, INDUSTRIAL HYGIENE MANAGER [address] [facility] [address] [place] [address] Family Medicine 08/16/22 Agricultural Research Technologist Relationship Specialty Start Date End Date Silvana Lundberg MD [address] [place] [facility] [place] [address] PCP - General Family Medicine 07/15/15 Samuel Burnette [address] [place] [facility] [place] [address] [phone] Referring Pain Management 07/15/15 Maria Teresa Ba, INDUSTRIAL HYGIENE MANAGER [address] [facility] [address] [place] [address] Family Medicine 08/16/22 Team Status: Inactive Member Role Status Dates Silvana Lundberg MD Attending Provider Active Agricultural Research Technologist Relationship Specialty Start Date End Date Silvana Lundberg MD [address] [place] [facility] [place] [address] PCP - General Family Medicine 07/15/15 Samuel Burnette [address] [place] [facility] [place] [address] Referring Pain Management 07/15/15 Maria Teresa Ba, INDUSTRIAL HYGIENE MANAGER [address] [facility] [address] [place] [address] Family Medicine 08/16/22 Team Status: Active Member Role Status Dates PHYSICIAN NO FAMILY Primary Care Provider Active Team Status: Inactive Member Role Status Dates Silvana Lundberg MD Attending Provider Active PHYSICIAN NO FAMILY Primary Care Provider Active Team Status: Inactive Member Role Status Dates PHYSICIAN NO FAMILY Primary Care Provider Active Brad Hodges MD Attending Provider Active Agricultural Research Technologist Relationship Specialty Start Date End Date Silvana Lundberg MD [address] [place] [phone] PCP - General Family Medicine 07/15/15 Samuel Burnette [address] [place] [address] Referring Pain Management 07/15/15 Maria Teresa Ba CNP [address] [place] [address] [facility] 08/16/22 Agricultural Research Technologist Relationship Specialty Start Date End Date Silvana Lundberg MD [address] [place] [address] PCP - General Family Medicine 07/15/15 Samuel Burnette [address] [place] [phone] Referring Pain Management 07/15/15 Maria Teresa Ba CNP [address] [facility] 1 [place] [address] Family Medicine 08/16/22 Team Status: Inactive Member Role Status Dates PHYSICIAN NO FAMILY Primary Care Provider Active Start: May 03, 2023 End: May 03, 2023 Brad Hodges MD Attending Provider Active art: May 03, 2023 End: May 03, 2023 Agricultural Research Technologist Relationship Specialty Start Date End Date Silvana Lundberg MD [address] [facility] [place] [address] PCP - General Family Medicine 07/15/15 Samuel Burnette [address] [place] [facility] [place] [address] Referring Pain Management 07/15/15 Maria Teresa Ba CNP [address] [facility] [address] [place] [phone] Family Medicine 08/16/22 Asher Skaggs [address] [place] [address] Referring Orthopedics 09/12/23 Agricultural Research Technologist Relationship Specialty Start Date End Date Silvana Lundberg MD [address] [place] [facility] [place] [address] PCP - General Family Medicine 07/15/15 Samuel Burnette [address] [place] [facility] [place] [address] Referring Pain Management 07/15/15 Maria Teresa Ba CNP [address] [facility] 1 [facility] [place] [address] Family Medicine 08/16/22 Asher Skaggs [address] [place] [address] Referring Orthopedics 09/12/23 Agricultural Research Technologist Relationship Specialty Start Date End Date Silvana Lundberg MD [address] [place] [facility] [place] [phone] PCP - General Family Medicine 07/15/15 Samuel Burnette [address] [place] [facility] [place] [address] Referring Pain Management 07/15/15 Maria Teresa Ba, INDUSTRIAL HYGIENE MANAGER [address] [facility] [address] [place] [address] Family Medicine 08/16/22 Asher Skaggs [address] [place] [address] Referring Orthopedics 09/12/23 Agricultural Research Technologist Relationship Specialty Start Date End Date Silvana Lundberg MD [address] [place] [facility] [place] [address] PCP - General Family Medicine 07/15/15 Samuel Burnette [address] [place] [address] Referring Pain Management 07/15/15 Maria Teresa Ba, INDUSTRIAL HYGIENE MANAGER [address] [facility] [address] [place] [address] Family Medicine 08/16/22 Asher Skaggs [address] [place] [address] Referring Orthopedics 09/12/23 Agricultural Research Technologist Relationship Specialty Start Date End Date Silvana Lundberg MD [address] [place] [facility] [place] [address] PCP - General Family Medicine 07/15/15 Samuel Burnette [address] [place] [facility] [place] [address] Referring Pain Management 07/15/15 Maria Teresa Ba CNP [address] [facility] [address] [place] [phone] Family Medicine 08/16/22 Asher Skaggs [address] [place] [address] Referring Orthopedics 09/12/23 Agricultural Research Technologist Relationship Specialty Start Date End Date Silvana Lundberg MD [address] [place] [facility] [place] [address] PCP - General Family Medicine 07/15/15 Samuel Burnette [address] [place] [facility] [place] [address] Referring Pain Management 07/15/15 Maria Teresa Ba CNP [address] [facility] [address] [place] [address] Family Medicine 08/16/22 Asher Skaggs [address] [facility] [place] [address] Referring Orthopedics 09/12/23 Agricultural Research Technologist Relationship Specialty Start Date End Date Silvana Lundberg MD [address] [place] [facility] [place] [phone] PCP - General Family Medicine 07/15/15 Samuel Burnette [address] [place] [address] Referring Pain Management 07/15/15 Maria Teresa Ba, SAHIL [address] [facility] 1 [place] [phone] Family Medicine 08/16/22 Asher Skaggs [address] [place] [address] Referring Orthopedics 09/12/23 Agricultural Research Technologist Relationship Specialty Start Date End Date Silvana Lundberg MD [facility] [place] [address] PCP - General Family Medicine 07/15/15 Samuel Burnette [address] [place] [phone] Referring Pain Management 07/15/15 Maria Teresa Ba, SAHIL [address] [facility] 1 [place] [address] Family Medicine 08/16/22 Asher Skaggs [address] [place] [address] Referring Orthopedics 09/12/23 Agricultural Research Technologist Relationship Specialty Start Date End Date Silvana Lundberg MD [address] [place] [address] PCP - General Family Medicine 07/15/15 Samuel Burnette [address] [facility] [place] [address] Referring Pain Management 07/15/15 Maria Teresa BaSAHIL [address] [facility] 1 [place] [address] Family Medicine 08/16/22 Asher Skaggs [address] [facility] [place] [address] Referring Orthopedics 09/12/23 Team Status: Active Member Role Status Dates Silvana Lundberg MD Primary Care Provider Active Start: March 17, 2024 Alysha Emanuel MD Attending Provider Active Star t: March 17, 2024 Team Status: Active Member Role Status Dates Silvana Lundberg MD Primary Care Provider Active Start: April 07, 2024 Brad Hodges MD Attending Provider Active St art: April 07, 2024 Team Status: Inactive Member Role Status Dates Silvana Lundberg MD Primary Care Provide r, Attending Provider Active Start: May 13, 2024 End: May 13, 2024 Reason for Visit (unrecogniz ed section and content) Reason Comments DVT. new patient consult Reason Comments Recheck Follow up DVT Reason Comments Results Lab results Reason Comments Results Reason Comments acute deep vein thrombosis Follow up Reason Comments Appointment Specialty Diagnoses / Procedures Referred By Chen t Referred To Contact Diagnoses Orthostatic hypotension POTS (postural orthostatic tachycardia syndrome) Procedures Tilt Table Test Carlos Krishna APRN - ESCALATOR ATTENDANT [address] [facility] 1 [facility] [address] Referral ID Status Reason Start Date Expiration Date V isits Requested Visits Authorized [id number] Not Required - RTA 07/24/2022 07/24/2023 1 [...] MEASUREMENT OF OXYGEN SATURATION AND CARDIAC OUTPUT [facility] 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 [address] [place] [address] Referral ID Status Reason Start Date Expiration Date Visits Re quested Visits Authorized [id number] 1 1 Reason Comments Ankylosing Spondylitis Specialty Diagnoses / Procedures Referred By Contac t Referred To Contact Rheumatology Diagnoses Ankylosing spondylitis of multiple sites in spine (HCC) Procedures CONSULT TO RHEUM/IMMUN DISEASE OFFICE/OUTPATIENT [facility] 60-74 MINUTES Berta Francis MD [address] [place] [address] Referral ID Status Reason Start Date Expiration Date V isits Requested Visits Authorized [id number] Closed PCP Requested Referral 08/16/2022 08/16/2023 1 1 Reason Comments Radiology NM Specialty Diagnoses / Procedures Referred By Contac t Referred To Contact MOLECULAR & FUNCTIONAL IMAGING Diagnoses Exertional dyspnea Other secondary pulmonary hypertension (HCC) Procedures NM LUNG VENT / PERF VQ PULMONARY VENTILATION & PERFUSION IMAGING Berta Francis MD [address] [place] [address] Molecular & Functional Imaging [address] [place] [address] Referral ID Status Reason Start Date Expiration Date V isits Requested Visits Authorized [id number] Closed Auto-Generate d Referral 08/16/2022 09/15/2023 1 1 Reason Comments New Patient Specialty Diagnoses / Procedures Referred By Contac t Referred To Contact Neurology Diagnoses Lightheadedness Change in blood pressure Procedures CONSULT TO NEUROLOGY OFFICE/OUTPATIENT [facility] 60-74 MINUTES Berta Francis MD [address] [place] [address] Referral ID Status Reason Start Date Expiration Date V isits Requested Visits Authorized [id number] Closed PCP Requested Referral 08/16/2022 08/16/2023 1 1 Reason Onset Date Comments EMG 10/16/2022 Specialty Diagnoses / Procedures Referred By Contac t Referred To Contact [facility] Diagnoses Disturbance of skin sensation Procedures EMG(NEURO/NI) NERVE CONDUCTION STUDIES 9-10 STUDIES Anna Palacios, PARTY COORDINATOR.[facility] [address] [id number] Neu[facility] [place] [address] [place] [address] Referral ID Status Reason Start Date Expiration Date V isits Requested Visits Authorized [id number] Closed Auto-Generate d Referral 10/06/2022 10/07/2023 1 1 Reason Comments Results Abnormal Labs Reason Comments Results Abnormal labs Reason Comments Established Patient lightheadness Reason Comments New Fracture Reason Comments Results Spoke with patient r egarding his PTH results. Reason Comments Established Patient Follow Up Reason Comments History of DVT Reason Comments Consult Specialty Diagnoses / Procedures Referred By Contac t Referred To Contact Diagnoses Closed fracture of hip, left, with delayed healing, subsequent encounter High serum parathyroid hormone (PTH) Procedures CONSULT TO HIP FRACTURE LIAISON SERVICE (FRAGILITY) OFFICE/OUTPATIENT NEW HIGH M[facility] [place] [address] [place] [address] Referral ID Status Reason Start Date Expiration Date V isits Requested Visits Authorized [id number] Closed PCP Requested Referral 09/28/2023 09/27/2024 1 1 Reason Comments Medication Problem Teriparatide 20 mcg/ dose (600mcg/2.4mL Goals (unrecognized section and content) Goals may [...] BE BASED ON THE PRIMARY CLINICAL RECORDS. [employer] provides no warranty or guarantee of the accuracy or completeness of information in this document.
--- NOTE | 2024-06-05 07:30 | CA_ITS ---
Patient Name: ELENA FELIX MR#: [id number] : 1960 Exam Date: 06/05/2024 Ordering Doctor: DR Mary Carmen Kaur M.D. ECHOCARDIOGRAM REPORT PROCEDURE: CA ECHO DOPPLER COMPLETE INDICATIONS: Congestive heart failure, hypertension COMPARISON: None. DESCRIPTION: COMPLETE ECHOCARDIOGRAM Real-time transthoracic echocardiography with 2D, M-mode, spectral and color flow Doppler performed. QUALITY: Technical quality was good. LEFT VENTRICLE: Normal chamber size. Thickened septal wall. Normal systolic function. LV EF: Normal left ventricular ejection fraction, (55%). DIASTOLIC: Normal diastolic function. ATRIAL SEPTUM: LEFT ATRIUM: Mild dilatation. RIGHT ATRIUM: Mild dilatation. RIGHT VENTRICLE: Mild dilatation. TRICUSPID VALVE: Normal mobility and thickness. No stenosis with trivial regurgitation. No evidence of pulmonary hypertension. RVSP 28 mmHg MITRAL VALVE: Normal mobility and thickness. No evidence of mitral valve stenosis. There is no mitral annular calcification. Trivial mitral regurgitation. AORTIC VALVE: Normal trileaflet appearance. No visible sclerosis. Normal leaflet mobility. No evidence of aortic valve stenosis. No aortic regurgitation. AORTIC ROOT: Normal diameter and appearance. PULMONIC VALVE: Normal thickness and mobility. No stenosis. No regurgitation. PERICARDIUM: No evidence of pericardial effusion. IVC: Not well visualized. PLEURA: CONCLUSION: 1. Normal left ventricular size and systolic function. LVEF is 55%. 2. Mildly dilated right ventricle with normal systolic function. 3. Mild biatrial dilatation. 4. Normal diastolic function. 5. No significant valvular dysfunction. 6. Normal right sided pressures. Adult Echocardiography Procedure Report Left Ventricle LVEDD (3.7 - 5.6 cm): 5.17 cm LVESD (2.2 - 4.0 cm): 3.83 cm LVIVS thickness (0.6 - 1.2 cm): 1.28 cm LVPW thickness (0.5 - 1.0 cm): 0.99 cm e': 0.14 m/s E - e': 5.35 LVOT Max Gradient: 3.24 mm[Hg] LVOT Area (cm2): 0.90 m/s Peak Velocity (LVOT): 0.90 m/s Mean Velocity (LVOT): 0.57 m/s LVOT Diameter 2.58 cm Left Atrium LA Volume Index (2D A2C): 36.49 ml/m2 Left Atrium Systolic Dimension: 4.50 cm Mitral Valve MV E to A Ratio: 1.08 Mitral Valve A-Wave Peak Velocity: 0.67 m/s Mitral Valve E-Wave Peak Velocity: 0.72 m/s Right Ventricle Aorta AO Root Diam: 3.80 cm Aortic Valve AoV Area (Peak Sarmad): 4.47 cm2, 4.47 cm2 AoV Area (VTI): 4.49 cm2, 4.49 cm2 Peak Velocity(Antegrade Flow): 1.05 m/s Peak Gradient(Antegrade Flow): 4.43 mm[Hg] Mean Velocity(Antegrade Flow): 0.69 m/s Mean Gradient(Antegrade Flow): 2.21 mm[Hg] Velocity Time Integral: 24.17 cm Tricuspid Valve Peak Velocity (Regurgitant Flow): 2.26 m/s Pulmonic Valve Mean Gradient: 2.60 mm[Hg] Mean Velocity: 0.75 m/s Peak Velocity: 1.16 m/s, 1.04 m/s Peak Gradient: 4.31 mm[Hg], 5.38 mm[Hg] Right Atrium Right Atrium Systolic Pressure: 78.25 ml, 78.25 ml Dictated by: Alan Leung M.D. on 06/06/2024 at 18:10 Approved by: Alan Leung M.D. on 06/06/2024 at 18:25
== END 2024-06-05 07:12 | disposition home or self-care (01) ==
LOC: CARD 07:11
PROVIDERS: PCP Family Medicine; Visit Provider Family Medicine
DX: R60.0 Localized edema (principal); I50.9 Heart failure, unspecified
CPT/HCPCS: 93306

== ENCOUNTER 2024-06-11 13:58 | Outpatient (RCR) | payer MEDICARE, SELFPAY | END 2024-07-18 11:54 | disposition home or self-care (01) | LOC: PT 13:58 | PROVIDERS: PCP Family Medicine; Visit Provider Anesthesiology | DX: M54.2 Cervicalgia (principal); R29.3 Abnormal posture; R26.89 Other abnormalities of gait and mobility | CPT/HCPCS: 97010; 97110; 97140; 97161; G0283 ==

== ENCOUNTER 2024-07-14 14:17 | Outpatient (OUT) | payer MEDICARE, SELFPAY ==
[2024-07-14 15:06] LABS: Anion Gap 10.1; BUN Creatinine Ratio 12.2; Calcium 9.1 mg/dL (8.5-10.1); Carbon Dioxide 32.8 mmol/L (21.0-32.0); Chloride 106 mmol/L (98-107); Estimated GFR (African America 58 (>=60 mL/min/1.73m^2); Estimated GFR (Non-African Ame 48 (>=60 mL/min/1.73m^2); Glucose 90 mg/dL (74-106); Potassium 4.9 mmol/L (3.5-5.1); Sodium 144 mmol/L (136-145)
== END 2024-07-14 14:18 | disposition home or self-care (01) ==
LOC: LAB 14:18
PROVIDERS: PCP Family Medicine; Visit Provider Internal Medicine Cardiovascular Disease
DX: R06.02 Shortness of breath (principal)
CPT/HCPCS: 36415; 80048

== ENCOUNTER 2024-07-19 09:46 | Outpatient (OUT) | payer MEDICARE, SELFPAY ==
--- OUTSIDE RECORDS SUMMARY | 2024-07-19 09:55 | XMS_ITS | CCD ---
Author Organization [facility] Care Team Providers Care 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 Name Role Phone Silvana Lundberg Primary Care Provider [phone] Aleksey Perez Attending Provider Silvana Lundberg MD Primary Care Provider Samuel Burnette Unavailable Silvana Lundberg MD Primary Care Provider Samuel Burnette Unavailable Silvana Lundberg MD Primary Care Provider SILVANA LUNDBERG Primary Care Physician Tiffanie Rosario I Unavailable Unavailable Silvana Lundberg Unavailable Silvana Lundberg MD Primary Care Provider Samuel Burnette Unavailable Silvana Lundberg MD Primary Care Provider [phone] CARLOS KRISHNA Referring Unavailable SILVANA LUNDBERG Primary [...] Consulting Unavailable MISC, DR WALL Attending Unavailable ADRIANNAC, DR WALL Admitting Unavailable TAMIKA, DR SILVANA Ko Primary Care Unavailable TAMIKA, DR SILVANA Ko Consulting Unavailable TAMIKA, DR SILVANA Ko Attending Unavailable LUNDBERG, DR [...] DR SILVANA Ko Primary Care Unavailable ALGHOTHANI, MOHAMARuss Consulting Unavailable ALGHOTHANI, MOHAMAD Attending Unavailable LUNDBERG, [...] LUNDBERG, DR SILVANA Ko Primary Care Unavailable MD Silvana Lundberg Attending Provider NO FAMILY, PHYSICIAN Primary Care Provider Unava MD Brad Lynch Attending Provider [phone] NO FAMILY, PHYSICIAN Primary Care Provider Unava MD Brad Lynch Attending Provider NO FAMILY, PHYSICIAN Primary Care Provider Unava MD Brad Lynch Attending Provider [phone] ANNA COLLINS Attending Unavailable EUGENIA LANDON Referring Unavailab ANNA Isaac Attending Unavailable Silvana Lundberg MD Primary Care Provider [phone] Cordelia BAXTERMaria Teresa Unavailable Asher Skaggs Unavailable [phone] MD Silvana Lundberg Primary Care Provider ObshayeyLAURENT douglass Attending Provider PADUBIDRI, ANOKHA Referring Unavailable LUNDBERG, SILVANA E Primary Care Unavailable PADUBIDRI, ANOKHA Attending Unavailable LUNDBERG, SILVANA E Primary Care Unavailable PADUBIDRI, ANOKHA Referring Unavailable LUNDBERG, SILVANA E Primary Care Unavailable PADUBIDRI, ANOKHA Referring Unavailable LUNDBERG, SILVANA E Primary Care Unavailable PADUBIDRI, ANOKHA Attending Unavailable PADUBIDRI, ANOKHA Referring Unavailable LUNDBERG, SILVANA E Primary Care Unavailable Jerrod BELL Attending Unavailable BELL, Jerrod R Attending Unavailable BELL, Jerrod R Attending Unavailable BELL, Jerrod R Admitting Unavailable BELL, Jerrod R Attending Unavailable BELL, Jerrod R Referring Unavailable LUNDBERG, SILVANA E Primary Care Unavailable TIFFANY PETERSON Attending Unavailable LUNDBERG, SILVANA E Primary Care Unavailable LUNDBERG, SILVANA E Primary Care Unavailable EMANUEL, ALYSHA Referring Unavailable LUNDBERG, SILVANA E Primary Care Unavailable KARAMLOU, MERLY Referring Unavailable LUNDBERG, SILVANA E Primary Care Unavailable LUNDBERG, SILVANA E Primary Care Unavailable KARAMLOU, MERLY Referring Unavailable KARAMLOU, MERLY Attending Unavailable LUNDBERG, SILVANA E Primary Care Unavailable PADUBIDRI, ANOKHA Referring Unavailable EMANUEL, ALYSHA Attending Unavailable ObermeyerSafia Admitting Unavailable ObermeySafia douglass Attending Unavailable Lundberg, Silvana E Primary Care Unavailable Frederic Zamarripa Admitting Unavailable Frederic Zamarripa Attending Unavailable Silvana Lundberg Primary Care Unavailable Silvana Lundberg MD Primary Care Provider [phone] Frederic Zamarripa MD Attending Provider [phone] NIKKIE TREJO Attending Unavailable Allergies Allergy Classification Reported Allergen(s) Allergy Type Date of Onset Reaction(s) Facility Angiotensin 2 Receptor Blockers (ARB) (1 source) Losartan Drug Allergy 05-30-19 23 Unknown [facility] Angiotensin Converting Enzyme (HORTENCIA) Inhibitors (1 source) Lisinopril Drug Allergy 09-17-19 22 Unknown [facility] Opioid Agonists (1 source) Morphine Drug Allergy 08-25-19 17 Intolerance [facility] Work Phone: (20 sources) Lisinopril; Translations: [lisinopril] Drug Allergy 09-17-19 22 Unknown [facility] (20 sources) Morphine; Translations: [morphine] Drug Allergy 08-25-19 17 Intolerance [facility] Work Phone: Comment on above: Tolerated hydromorph one during 11/2016 admission (20 sources) Losartan; Translations: [LOSARTAN] Drug Allergy 05-30-19 23 Unknown [facility] (2 sources) Morphine Drug Allergy 11-07-19 15 [facility] Repository (2 sources) patient allergy list reviewed by nurse or physicia Propensity to adverse reactions 04-15-20 14 Comment:Done [employer] Other (2 sources) Allergies Reconciled Propensity to adverse reactions Unknown [employer] Other (1 source) Lisinopril Drug Allergy 06-10-19 25 [facility] Repository (1 source) Morphine Drug Allergy 06-10-19 25 [facility] Repository Medications Current Medications Medication Drug Class(es) [...] tablet (3 sources) Penicillin-class Antibacterial Start: 11-30-19 take 1 tablet by mouth every twelve hours Amoxicillin-Pot Clavulanate 875-125 MG 1 tablet Orally every 12 hrs for 10 days Nov, Active ARIPiprazole 5 mg oral tablet (20 sources) Atypical Antipsychotic Start: 11-28-19 End: 01-22-20 [...] outh three times daily for 30 days. iv [...] (20 sources) Folate Analog Metabolic Inhibitor Start: take 1 tablet by mouth every week [...] activity, # 30 tab(s), Refills(s) 4, Pharmacy: [facility]/pharmacy #[id number], 188, cm, 07/16/23 10:06:00 EDT, Height/Length [...] 0.4 mg oral capsule (20 sources) alpha-Adrenergic Julius Start: 07-06-19 take 1 capsule by mouth once daily Tamsulosin 0.4 mg capsule Active 0.4 MG PO Daily July 05, 2023 11:00pm Start: 11-20-2022 take 1 capsule by mo ut twice daily tamsulosin 0.4 mg Cap 0.4 mg = 1 cap(s), Oral, BID, # 180 caplet(s), Refills(s) 3, Pharmacy: [facility]/pharmacy #[id number], 188, cm, 05/01/22 9:58:00 EST, Height/Length Dosing, 131.8, kg, 05/01/22 9:58:00 EST, Weight Dosing Start Date: 11/20/22 Status: Ordered Start: 07-04-2021 take 1 capsule by [facility] twice daily tamsulosin 0.4 mg Cap 0.4 mg = 1 cap(s), Oral, BID, # 180 caplet(s), Refills(s) 3, Pharmacy: [facility]/pharmacy #[id number], 188, cm, 07/04/21 9:20:00 EDT, Height/Length [...] Start: 07-16-2023 take 1 capsule by mo ut once daily venlafaxine 150 mg Cap-ER 150 [...] PO Twice daily as needed for pain 30 October 01, 2023 October 01, 2023 8:52am Start: 10-01-2023 End: 05-13-2024 take 1 tablet by mouth twice daily as needed for pain Oxycodone-Acetaminophen 5-325 mg tablet Discontinued 1 TAB PO Twice daily as needed for pain 30 October 01, 2023 May 13, 2024 10:48am Start: 06-20-2023 End: 05-13-2024 take 1 tablet by mouth twice daily as needed for pain Oxycodone-Acetaminophen 5-325 mg tablet Discontinued 1 TAB PO Twice daily as needed for pain 60 June 20, 2023 September 05, 2023 7:36am Start: 03-29-2023 oxyCODONE-acet aminophen (PERCOCET) 5-325 mg [...] baltazar th every 8 hours as needed. [id number] 200 actuat albuterol 0.09 mg/actuat metered dose [...] 6.25 mg oral tablet (2 sources) alpha-Adrenergic Julius, beta-Adrenergic Julius End: 09-22-19 take 1 tablet by mouth twice daily at mealtime carvedilol (COREG) 6.25 mg tablet Take 6.25 mg by mouth twice daily with meals. 0 09/21/2021 Discontinued Comment on above: Take 6.25 mg by mout h twice daily with meals. cephalexin 500 mg oral capsule (6 sources) Cephalosporin Antibacterial Start: 07-06-19 End: 08-31-19 take 1 capsule by mouth twice daily Cephalexin 500 mg capsule Discontinued 500 MG PO Twice daily 14 July 05, 2023 11:00pm August 31, 2023 10:10am ferrous sulfate 325 mg oral tablet (14 sources) Start: 07-06-19 End: 08-31-19 take 1 [...] 12/04/2023 Discontinued take 1 tablet by baltazar three times weekly Ferrous Sulfate 325 (65 Fe) MG 1 tablet Orally Three times a Week for 30 days Active fluticasone propionate 0.05 mg/actuat metered dose nasal spray (9 sources) Corticosteroid Start: 07-06-2023 End: 08-31-2023 Fluticasone [...] OUTH EVERY DAY 24 hr metoprolol succinate 50 mg extended release oral tablet (20 sources) beta-Adrenergic Julius Start: 07-06-19 End: 10-01-19 24 take 1 capsule by mouth once daily Metoprolol Succinate 25 mg capsule,sprinkle,ER 24hr Discontinued 25 MG PO Daily July 05, 2023 11:00pm October 01, 2023 8:44am Start: 06-04-2022 End: 03-04-2024 take 1 tablet by mouth once daily Metoprolol Succinate 50 mg tablet extended release 24 hr Discontinued 50 MG PO daily 90 September 30, 2023 11:00pm March 04, 2024 [...] Status: Ordered take 1 capsule by mo [facility] once daily Metoprolol Succinate 50 MG [...] mg by mouth three times daily. nystatin [id number] unt/ml oral suspension (6 sources) Polyene Antifungal Start: 05-17-19 take 4 mL by mouth four times daily Nystatin [id number] UNIT/ML 4 ml Mouth/Throat Four times a [...] sources) Central alpha-2 Adrenergic Agonist Start: 10-31-19 17 End: 09-22-19 take 2 tablets by mouth every eight hours as needed tiZANidine (ZANAFLEX) 4 mg tablet Take 2 tablets by mouth three times daily as needed. 0 10/30/2016 09/21/2021 Discontinued tiZANidine HCl A ctive Comment on above: Take 2 tablets by mo uth three times daily as needed. triamcinolone acetonide 1 mg/ml topical cream (6 sources) Corticosteroid Start: 07-06-2023 End: 10-01-2023 Triamcinolone [...] Translations: [Allergy, unspecified, initial encounter] Episodic Asthma (18 sources) Moderate persistent asthma; Translations: [Moderate persistent asthma, uncomplicated] Chronic Blindness and vision defects (2 sources) Visual disturbance; Translations: [Other visual disturbances] Episodic Calculus of urinary tract (20 sources) Kidney stone; Translations: [Calculus of kidney] 07-19-2015 Episodic Cardiac dysrhythmias (3 sources) Postural orthostatic tachycardia syndrome ; Translations: [POTS (postural orthostatic tachycardia syndrome)] Chronic Chronic kidney disease (14 sources) Chronic kidney disease stage 3; Translations: [Stage 3 chronic kidney disease, unspecified whether stage 3a or 3b CKD] 07-06-2023 Chronic Chronic obstructive pulmonary disease and bronchiectasis (2 sources) Bronchitis; Translations: [Bronchitis, not specified as acute or chronic] Episodic Congestive heart failure; nonhypertensive (20 sources) Chronic diastolic heart failure; Translations: [Chronic diastolic (congestive) heart failure] Onset: 2 Chronic Coronary atherosclerosis and other heart disease (3 sources) Coronary arteriosclerosis; Translations: [Atherosclerotic heart disease of [place] coronary artery without angina pectoris] 11-30-2022 Chronic Deficiency and other anemia (14 sources) Pernicious anemia; Translations: [Vitamin B12 deficiency [...] disease without esophagitis] 12-15-2016 Chronic Essential hypertension (9 sources) Benign essential hypertension; Translations: [Essential hypertension, benign] Onset: 7 07-06-2023 Chronic Fluid and electrolyte disorders (1 source) Hyperkalemia Episodic Fracture of neck of femur (hip) (18 sources) Fracture of unspecified part of neck [...] 09-12-2016 Chronic Other aftercare (1 source) Other termite inspector (current) drug therapy; Translations: [OTH SKILLED NURSING CURRENT DRUG THERAPY] Onset: 3 Episodic Other and ill-defined cerebrovascular disease (20 sources) Small vessel cerebrovascular disease; Translations: [Cerebrovascular disease, unspecified] Onset: 7 08-24-2016 Chronic Other and ill-defined heart disease (4 sources) Heart disease 07-04-2021 Chronic Other circulatory disease (2 sources) Orthostatic hypotension; Translations: [Orthostatic hypotension] Episodic Other circulatory disease (1 source) Orthostatic hypotension; Translations: [Orthostatic hypotension] Onset: 3 Episodic Other circulatory disease (1 source) Postural orthostatic tachycardia syndrome ; Translations: [Postural [...] system 10-08-2014 Chronic Other nervous system disorders (15 sources) Peripheral nerve disease ; Translations: [Polyneuropathy, unspecified] 07-06-2023 Chronic Other nervous system disorders (1 source) Disorder of autonomic nervous system; Translations: [Disorder of the autonomic nervous system, unspecified] Chronic Other nervous system disorders (1 source) Neuropathy; Translations: [Idiopathic progressive neuropathy] Chronic Other nervous system disorders (2 sources) Narcolepsy without cataplexy ; Translations: [Narcolepsy without cataplexy] Onset: 7 Chronic Other nervous system disorders (2 sources) Hereditary peripheral neuropathy; Translations: [Unspecified hereditary and idiopathic peripheral neuropathy] Onset: 5 Chronic Other nervous system disorders (2 sources) Chronic pain; Translations: [Other chronic pain] 06-10-2024 Chronic Other nervous system disorders (2 sources) Polyneuropathy, unspecified; Translations: [Unspecified hereditary and idiopathic peripheral neuropathy] 05-13-2024 Chronic Other nervous system disorders (2 sources) Other chronic pain; Translations: [Other chronic pain] 06-10-2024 Chronic Other nervous system disorders (2 sources) Skin sensation disturbance; Translations: [Unspecified disturbances of skin sensation] Episodic Other nervous system disorders (1 source) Tremor; Translations: [Tremor, unspecified] Episodic Other nervous system disorders (1 source) Paresthesia; Translations: [Paresthesia of skin] Episodic Other non-traumatic joint disorders (2 sources) Arthralgia of the upper arm; Translations: [Pain in right elbow] Episodic Other non-traumatic joint disorders (7 sources) Pain in left shoulder; Translations: [Left [...] Onset: 7 09-28-2023 Episodic Other skin disorders (6 sources) Eruption; Translations: [Rash and other nonspecific skin eruption] 07-06-2023 Episodic Other skin disorders (5 sources) Epidermoid cyst; Translations: [Epidermal cyst] Onset: Episodic Other skin disorders (2 sources) Rash and other nonspecific skin eruption; Translations: [Rash and other nonspecific skin eruption] 07-06-2023 Episodic Other upper respiratory infections (2 sources) Chronic sinusitis; Translations: [Chronic sinusitis, unspecified] Chronic Otitis media and related conditions (2 sources) Non-suppurative otitis media; Translations: [Unspecified nonsuppurative otitis media, left ear] Episodic Pathological fracture (7 sources) Pathological fracture of proximal end of [...] for unspecified reasons] Episodic Residual codes; unclassified (5 sources) Localized edema; Translations: [Localized edema] 05-13-2024 Episodic Residual codes; unclassified (6 sources) H/O Spinal surgery; Translations: [Other specified postprocedural states] 07-06-2023 Episodic Residual codes; unclassified (1 source) Pain; Translations: [Pain, unspecified] 09-27-2023 Episodic Residual codes; unclassified (1 source) Pain, unspecified; Translations: [Pain] Onset: 4 Episodic Residual codes; unclassified (3 sources) Edema of lower extremity; Translations: [Localized edema] 05-13-2024 Episodic Rheumatoid arthritis and related disease (20 sources) Ankylosing spondylitis; Translations: [Ankylosing spondylitis of unspecified sites in spine] Onset: 2 12-15-2016 Chronic Screening and history of mental health and substance abuse codes (20 sources) Ex-smoker; Translations: [Personal history of nicotine dependence] Onset: 9 07-19-2015 Episodic Skin and subcutaneous tissue infections (12 sources) Cellulitis of right lower limb; Translations: [Cellulitis and abscess of lower leg] Onset: 6 Episodic Spondylosis; intervertebral disc disorders; other back problems (18 sources) Arthritis of spine; Translations: [Unspecified inflammatory [...] [Personal history of COVID-19] Unclassified (1 source) New Onset: 4 Urinary [...] Onset: 08-13-2017 Episodic Other aftercare (1 source) long term care phlebotomist (current) use of aspirin; Translations: [SKILLED NURSING CURRENT USE OF ASPIRIN] Onset: 09-22-2021 Episodic [...] Test Name Value Interpretation Reference Range Facility Office Visiton 06-10-2024 Follow-up visit [id number] Miguel Felix 1960 M Date Provider Department Center 06/10/2024 Roshni8NIKKIE TREJO [facility] Family History Problem Relation Age of Onset No Known Problems Mother No Known Problems Father Family Status - Relation Status Age at Mother Father Level of Service:05883 [place] OFFICE/OUTPATIENT ESTABLISHED LOW MDM 20 MIN Normal [facility] X-ray reportOrdered By: Chas Willis on 06-10-2024 Study report [facility] [place] [address] [place] [address] XRay Report Signed Patient: Elena Felix MR#: [id number] : 1960 Acct:[id number] Age/Sex: 63 / M ADM Date: 5 Loc: XD Room: Type: [facility] Attending Dr: Frederic Zamarripa MD Copies to: Frederic Zamarripa MD~ Ordering Provider: Frederic Zamarripa MD Date of Service: 06/10/24 XR/XR cervical spine w flex/ext: M54.2 - Cervicalgia CERVICAL SPINE AP, lateral, both obliques and flexion extension views.: CLINICAL HISTORY: Neck pain COMPARISON: None FINDINGS: Mild reversal. Only C1-C6 seen laterally.. Moderate multilevel uncovertebral and facet arthropathy causing neural foraminal encroachment. [id number] multilevel disc space narrowing and osteophytosis moderate severity C3-C4. There is mild retrolisthesis C4-C5 3 mm which is unchanged on the flexion extension images. XR/XR cervical spine w flex/ext IMPRESSION: Multilevel degenerative change. No motion on flexion extension images. Impression dictated by: Philip Willis M.D.06/10/2024 3:55 PM Dictation Location: [place] [address] Transcribed By: [facility] 06/10/24 155 Dictated By: Philip Willis MD 06/10/241551 Signed By: 06/10/24 [facility] Work Phone: XR cervical spine w flex/ext on 06-10-2024 XR cervical spine w flex/ext [facility] [place] [address] [place] [address] XRay Report Signed Patient: Elena Felix MR#: [id number] 29 : 1960 Acct:[id number] Age/Sex: 63 / M ADM Date: 06/10/24 Loc: XD Room: Type: [facility] Attending Dr: Frederic Zamarripa MD Copies to: Frederic Zamarripa MD Ordering Provider: Frederic Zamarripa MD Date of Service: 06/10/24 XR/XR cervical spine w flex/ext: M54.2 - Cervicalgia CERVICAL SPINE AP, lateral, both obliques and flexion extension views.: CLINICAL HISTORY: Neck pain COMPARISON: None FINDINGS: Mild reversal. Only C1-C6 seen laterally.. Moderate multilevel uncovertebral and facet arthropathy causing neural foraminal encroachment. [id number]-[id number] multilevel disc space narrowing and osteophytosis moderate severity C3-C4. There is mild retrolisthesis C4-C5 3 mm which is unchanged on the flexion extension images. XR/XR cervical spine w flex/ext IMPRESSION: Multilevel degenerative change. No motion on flexion extension images. Impression dictated by: Philip Willis M.D.06/10/2024 3:55 PM Dictation Location: [place] [address] Transcribed By: [facility] 06/10/24 155 Dictated By: Philip Willis MD 06/10/241551 Signed By: 02/18/25 1555 Normal [facility] Basophils Auto (Bld) [#/Vol] on 05-28-2024 Basophils (Bld) [#/Vol] Automated basophil count 0.0-0.1 [facility] Basophils/100 WBC Auto (Bld) on 05-28-2024 Basophils/100 WBC (Bld) Automated basophil % 0.2-2.0 [facility] Eosinophils/100 WBC Auto (Bl d)on 05-28-2024 Eosinophils/100 WBC (Bld) Automated eosinophil % 0.9-7.0 [facility] Erythrocyte distribution wid th Auto (RBC) [Ratio]on 05-28-2024 Erythrocyte distribution width (RBC) [Ratio] Erythrocyte distribution width [Ratio] by Automated count 11.0-15.0 [facility] Estimated glomerular filtrat ion rate (GFR) non- Americanon 05-28-2024 GFR/1.73 sq M.predicted among non-blacks MDRD (S/P/Bld) [Vol rate/Area] Estimated glomerular filtration rate (GFR) non- Low >=60 mL/min/1.73 m 2 [facility] Globulin Calc (S) [Mass/Vol] on 05-28-2024 Globulin (S) [Mass/Vol] Serum globulin measurement by calculation (mass/volume) [facility] Hematocrit Auto (Bld) [Volum e fraction]on 05-28-2024 Hematocrit (Bld) [Volume fraction] Hematocrit [Volume Fraction] of Blood by Automated count Low 42.0-54.0 [facility] Hemoglobin [Mass/volume] in Bloodon 05-28-2024 Hemoglobin (Bld) [Mass/Vol] Hemoglobin [Mass/volume] in Blood Low 14.0-18.0 [facility] Laboratory - Chemistry and C hemistry - challengeon 05-28-2024 Bilirubin Ql (U) SMALL Abnormal NEGATIVE [facility] Glucose (U) [Mass/Vol] Negative NEGATIVE [facility] Ketones Ql (U) 40 mg/dL Abnormal NEGATIVE [facility] pH (U) 5.5 [pH] 5.0-9.0 [facility] Specific gravity (U) [Rel density] 1.025 1.005-1.025 [facility] Urobilinogen Qn (U) 0.2 {Denise'U}/dL 0.2-1.0 [facility] Albumin [Mass/Vol] 2.9 g/dL Low 3.4-5.0 [facility] ALP [Catalytic activity/Vol] 80 U/L 46-116 [facility] ALT [Catalytic activity/Vol] 33 U/L 16-63 [facility] AST [Catalytic activity/Vol] 39 U/L High 15-37 [facility] Bilirubin [Mass/Vol] 0.7 mg/dL 0.2-1.0 [facility] Calcium [Mass/Vol] 8.6 mg/dL 8.5-10.1 [facility] Chloride [Moles/Vol] 106 mmol/L 98-107 [facility] CO2 [Moles/Vol] 21.8 mmol/L 21.0-32.0 [facility] Creatinine [Mass/Vol] 1.32 mg/dL High 0.70-1.30 [facility] GFR/1.73 sq M.predicted MDRD (S/P/Bld) [Vol rate/Area] mL/min/{1.73_m2} >=60 mL/min/1.73 m 2 [facility] Glucose [Mass/Vol] 122 mg/dL High 74-106 [facility] Lactate [Moles/Vol] 1.6 mmol/L 0.4-2.0 [facility] Lipase [Catalytic activity/Vol] 24.0 U/L 16.0-77.0 [facility] Potassium [Moles/Vol] 4.0 mmol/L 3.5-5.1 [facility] Protein [Mass/Vol] 7.0 g/dL 6.4-8.2 [facility] Sodium [Moles/Vol] 141 mmol/L 136-145 [facility] Urea nitrogen [Mass/Vol] 14.0 mg/dL 7.0-18.0 [facility] Urea nitrogen/Creatinine [Mass ratio] 10.6 mg/mg [facility] Laboratory - Hematology and Cell countson 02-05-2025 Immature granulocytes/100 WBC (Bld) 0.2 % 0.0-0.5 [facility] Laboratory - Specimen inform ationon 05-28-2024 Appearance (U) CLEAR CLEAR [facility] Color (U) YELLOW YELLOW [facility] Laboratory - Urinalysison Hyaline casts LM Ql (Urine sed) FEW [facility] Leukocyte esterase Test strip Ql (U) Negative NEGATIVE [facility] Mucus Ql (Urine sed) MODERATE Abnormal NONE SEEN [facility] Nitrite Ql (U) Negative NEGATIVE [facility] Protein Ql (U) 30 mg/dL Abnormal NEG/TRACE [facility] Leukocytes [#/volume] correc christen for nucleated erythrocytes in Blood by Automated counon 05-28-2024 WBC corrected for nucl RBC Auto (Bld) [#/Vol] Leukocytes [#/volume] corrected for nucleated erythrocytes in Blood by Automated coun 4.0-11.0 [facility] Lymphocytes Auto (Bld) [#/Vo l]on 05-28-2024 Lymphocytes (Bld) [#/Vol] Lymphocytes [#/volume] in Blood by Automated count Low 1.2-3.8 [facility] Lymphocytes/100 WBC Auto (Bl d)on 05-28-2024 Lymphocytes/100 WBC (Bld) Lymphocytes/100 leukocytes in Blood by Automated count Low 20.5-60.0 [facility] [facility] MCH Auto (RBC) [Entitic mass ]on 05-28-2024 MCH (RBC) [Entitic mass] MCH [Entitic mass] by Automated count 25.9-34.0 [facility] MCHC Auto (RBC) [Mass/Vol]on 05-28-2024 MCHC (RBC) [Mass/Vol] MCHC [Mass/volume] by Automated count 29.9-35.2 [facility] MCV Auto (RBC) [Entitic vol] on 05-28-2024 MCV (RBC) [Entitic vol] MCV [Entitic volume] by Automated count High 80.0-94.0 [facility] Monocytes Auto (Bld) [#/Vol] on 05-28-2024 Monocytes (Bld) [#/Vol] Automated blood monocyte count 0.3-0.8 [facility] Monocytes/100 WBC Auto (Bld) on 05-28-2024 Monocytes/100 WBC (Bld) Automated monocyte % 1.7-12.0 [facility] Neutrophils Auto (Bld) [#/Vo l]on 05-28-2024 Neutrophils (Bld) [#/Vol] Neutrophils [#/volume] in Blood by Automated count 1.4-6.5 [facility] Neutrophils/100 WBC Auto (Bl d)on 05-28-2024 Neutrophils/100 WBC (Bld) Automated neutrophil % 43.0-75.0 [facility] No Panel Informationon 05-28 Urine Bacteria TRACE #/HPF Abnormal NONE SEEN [facility] Urine Culture Reflexed NO [facility] Urine Occult Blood Negative NEGATIVE [facility] Urine Other Casts SEEN #/LPF Abnormal NONE SEEN [facility] Urine Other Crystals None Seen #/HPF None Seen [facility] Urine RBC NONE SEEN #/HPF 0-2 [facility] Urine Squamous Epithelial Cells RARE #/LPF NONE/RARE [facility] Urine WBC NONE SEEN #/HPF NONE SEEN [facility] Eosinophils # (Auto) 0.1 10 3/uL 0.0-0.7 [facility] Immature Granulocyte # (Auto) 0.01 10 3/uL 0.00-0.03 [facility] Platelet mean volume Auto (B ld) [Entitic vol]on 05-28-2024 Platelet mean volume (Bld) [Entitic vol] Platelet mean volume [Entitic volume] in Blood by Automated count 9.5-13.5 [facility] Platelets Auto (Bld) [#/Vol] on 05-28-2024 Platelets (Bld) [#/Vol] Platelets [#/volume] in Blood by Automated count 150-450 [facility] RBC Auto (Bld) [#/Vol]on RBC (Bld) [#/Vol] Erythrocytes [#/volu me] in Blood by Automated count Low 4.70-6.10 [facility] Serum or plasma albumin/glob ulin mass ratioon 05-28-2024 Albumin/Globulin [Mass ratio] Serum or plasma albumin/globulin mass ratio [facility] Serum or plasma anion gap de terminationon 05-28-2024 Anion gap [Moles/Vol] Serum or plasma an ion gap determination [facility] Basophils Auto (Bld) [#/Vol] on 04-07-2024 Basophils (Bld) [#/Vol] Automated basophil count 0.0-0.1 [facility] Basophils/100 WBC Auto (Bld) on 04-07-2024 Basophils/100 WBC (Bld) Automated basophil % 0.2-2.0 [facility] CNPNon 04-07-2024 CNPN Telephone (ENDOMN) ELENA FELIX ([id number]) 1960 M Date Time Provider Department 04/07/24 ALYSHA EMANUEL During your visit today, we recorded the following information about you: Arpit [facility] ChapelRena 04/07/2024 3:58 PM Signed Patients insurance called in states Teriparatide 20 mcg/dose (600mcg/2.4mL is not covered by patients insurance. They are recommending alternate medications: Forteo, Tymols, Alendronate Sodium. [employer] can be reached at [phone]. 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 Thank you so much Alysha Emanuel MD Dept of Endocrinology Yaa Koo RN 04/08/2024 12:57 PM Addendum Called and spoke with patient. 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 Since his insurance recommended Forteo and not generic, hopefully there should not be an issue, however, he will reach out via my chart with an update. Yaa SRINIVASAN, RN [facility] Allergies As of Date: 04/07/2024 Noted Allergy [...] Take 20 mcg subcutaneously daily - Insulin Welch, Disposable, (BD ULTRAFINE III MINI PEN) 31 [...] Refills Start (more content not included)... Normal [facility] Eosinophils/100 WBC Auto (Bl d)on 04-07-2024 Eosinophils/100 WBC (Bld) Automated eosinophil % 0.9-7.0 [facility] Erythrocyte distribution wid th Auto (RBC) [Ratio]on 04-07-2024 Erythrocyte distribution width (RBC) [Ratio] Erythrocyte distribution width [Ratio] by Automated count 11.0-15.0 [facility] Estimated glomerular filtrat ion rate (GFR) non- Americanon 04-07-2024 GFR/1.73 sq M.predicted among non-blacks MDRD (S/P/Bld) [Vol rate/Area] Estimated glomerular filtration rate (GFR) non- Low >=60 mL/min/1.73 m 2 [facility] Globulin Calc (S) [Mass/Vol] on 04-07-2024 Globulin (S) [Mass/Vol] Serum globulin measurement by calculation (mass/volume) [facility] Hematocrit Auto (Bld) [Volum e fraction]on 04-07-2024 Hematocrit (Bld) [Volume fraction] Hematocrit [Volume Fraction] of Blood by Automated count Low 42.0-54.0 [facility] Hemoglobin [Mass/volume] in Bloodon 04-07-2024 Hemoglobin (Bld) [Mass/Vol] Hemoglobin [Mass/volume] in Blood Low 14.0-18.0 [facility] Laboratory - Chemistry and C hemistry - challengeon 04-07-2024 Albumin [Mass/Vol] 2.7 g/dL Low 3.4-5.0 [facility] ALP [Catalytic activity/Vol] 90 U/L 46-116 [facility] ALT [Catalytic activity/Vol] 31 U/L 16-63 [facility] AST [Catalytic activity/Vol] 17 U/L 15-37 [facility] Bilirubin [Mass/Vol] 0.4 mg/dL 0.2-1.0 [facility] Calcium [Mass/Vol] 9.0 mg/dL 8.5-10.1 [facility] Chloride [Moles/Vol] 108 mmol/L High 98-107 [facility] CO2 [Moles/Vol] 29.2 mmol/L 21.0-32.0 [facility] Creatinine [Mass/Vol] 1.27 mg/dL 0.70-1.30 [facility] GFR/1.73 sq M.predicted MDRD (S/P/Bld) [Vol rate/Area] mL/min/{1.73_m2} >=60 mL/min/1.73 m 2 [facility] Glucose [Mass/Vol] 105 mg/dL 74-106 [facility] Potassium [Moles/Vol] 4.7 mmol/L 3.5-5.1 [facility] Protein [Mass/Vol] 6.7 g/dL 6.4-8.2 [facility] Sodium [Moles/Vol] 144 mmol/L 136-145 [facility] Urea nitrogen [Mass/Vol] 22.0 mg/dL High 7.0-18.0 [facility] Urea nitrogen/Creatinine [Mass ratio] 17.3 mg/mg [facility] Laboratory - Hematology and Cell countson 04-07-2024 ESR (Bld) [Velocity] 53 mm/h High <=20 [facility] Immature granulocytes/100 WBC (Bld) 0.6 % High 0.0-0.5 [facility] Leukocytes [#/volume] correc christen for nucleated erythrocytes in Blood by Automated counon 04-07-2024 WBC corrected for nucl RBC Auto (Bld) [#/Vol] Leukocytes [#/volume] corrected for nucleated erythrocytes in Blood by Automated coun 4.0-11.0 [facility] Lymphocytes Auto (Bld) [#/Vo l]on 04-07-2024 Lymphocytes (Bld) [#/Vol] Lymphocytes [#/volume] in Blood by Automated count Low 1.2-3.8 [facility] Lymphocytes/100 WBC Auto (Bl d)on 04-07-2024 Lymphocytes/100 WBC (Bld) Lymphocytes/100 leukocytes in Blood by Automated count Low 20.5-60.0 [facility] MCH Auto (RBC) [Entitic mass ]on 04-07-2024 MCH (RBC) [Entitic mass] MCH [Entitic mass] by Automated count 25.9-34.0 [facility] MCHC Auto (RBC) [Mass/Vol]on 04-07-2024 MCHC (RBC) [Mass/Vol] MCHC [Mass/volume] by Automated count 29.9-35.2 [facility] MCV Auto (RBC) [Entitic vol] on 04-07-2024 MCV (RBC) [Entitic vol] MCV [Entitic volume] by Automated count High 80.0-94.0 [facility] Monocytes Auto (Bld) [#/Vol] on 04-07-2024 Monocytes (Bld) [#/Vol] Automated blood monocyte count 0.3-0.8 [facility] Monocytes/100 WBC Auto (Bld) on 04-07-2024 Monocytes/100 WBC (Bld) Automated monocyte % 1.7-12.0 [facility] Neutrophils Auto (Bld) [#/Vo l]on 04-07-2024 Neutrophils (Bld) [#/Vol] Neutrophils [#/volume] in Blood by Automated count 1.4-6.5 [facility] Neutrophils/100 WBC Auto (Bl d)on 04-07-2024 Neutrophils/100 WBC (Bld) Automated neutrophil % 43.0-75.0 [facility] No Panel Informationon 04-07 Eosinophils # (Auto) 0.4 10 3/uL 0.0-0.7 [facility] Immature Granulocyte # (Auto) 0.04 10 3/uL High 0.00-0.03 [facility] Platelet mean volume Auto (B ld) [Entitic vol]on 04-07-2024 Platelet mean volume (Bld) [Entitic vol] Platelet mean volume [Entitic volume] in Blood by Automated count Low 9.5-13.5 [facility] Platelets Auto (Bld) [#/Vol] on 04-07-2024 Platelets (Bld) [#/Vol] Platelets [#/volume] in Blood by Automated count 150-450 [facility] RBC Auto (Bld) [#/Vol]on RBC (Bld) [#/Vol] Erythrocytes [#/volu me] in Blood by Automated count Low 4.70-6.10 [facility] Serum or plasma albumin/glob ulin mass ratioon 04-07-2024 Albumin/Globulin [Mass ratio] Serum or plasma albumin/globulin mass ratio [facility] Serum or plasma anion gap de terminationon 04-07-2024 Anion gap [Moles/Vol] Serum or plasma an ion gap determination [facility] 25(OH)D3 SerPl-mCncon 2023 25-hydroxyvitamin D3 [Mass/Vol] 75.7 ng/mL Normal 31.0-80.0 [facility] Comment on above: Order Comment: Speci men Type: BLOOD SPECIMEN Ordering Facility: [facility] Address: [address] [place] [address] Performed By: #### 5 7021-8 #### [facility] CLIA [id number] [address] [place] [address] BIOAVAILABLE TESTOSTERONE, A DULT MALEon 03-17-2024 Albumin [Mass/Vol] 3.9 g/dL Normal 3.9-4.9 [facility] Comment on above: Order Comment: Speci men Type: BLOOD SPECIMEN Ordering Facility: [facility] Address: [address] [place] [address] Performed By: #### S JamarBTESTAleksey, 2731-8 #### [facility] CLIA [id number] [address] [place] [address] [place] Sex hormone binding globulin [Moles/Vol] 104 nmol/L High 14-82 [facility] Comment on above: Order Comment: Speci men Type: BLOOD SPECIMEN Ordering Facility: [facility] Address: [address] [place] [address] Performed By: #### S QBTESTAleksey, 273-8 #### [facility] CLIA [id number] [address] [place] [address] [place] Testosterone [Mass/Vol] 764 ng/dL Normal 193-824 [facility] Comment on above: Order Comment: Speci men Type: BLOOD SPECIMEN Ordering Facility: [facility] Address: [address] [place] [address] Result Comment: A te stosterone level in the 193-320 ng/dL range with associated clinical symptoms is considered low and may indicate hypogonadism (from [facility] 2010 363:123-135). Results >320 ng/dL are considered normal. Performed By: #### S QBTESTM, 2730-11 #### [facility] CLIA [id number] [address] [place] [address] [place] TSTBIO 173.6 ng/dL Normal 105.0-324.0 [facility] Comment on above: Order Comment: Speci men Type: BLOOD SPECIMEN Ordering Facility: [facility] Address: [address] [place] [address] Performed By: #### S QBTESTM, 2730-11 #### [facility] CLIA [id number] [address] [place] [address] [place] TSTFRC 70.7 pg/mL Normal 38.0-120.0 [facility] Comment on above: Order Comment: Speci men Type: BLOOD SPECIMEN Ordering Facility: [facility] Address: [address] [place] [address] Performed By: #### S QBTESTM, 2730-11 #### [facility] CLIA [id number] [address] [place] [address] [place] TSTFRP 0.9 % Low 1.1-2.6 [facility] Comment on above: Order Comment: Speci men Type: BLOOD SPECIMEN Ordering Facility: [facility] Address: [address] [place] [address] Performed By: #### S QBTESTM, 2730-11 #### [facility] CLIA [id number] [facility] [place] [id number] [place] Bioavailable testosterone pe rcentageon 03-17-2024 Testosterone.free+wea kly bound/Testosterone.to michelle [Mass fraction] Bioavailable testosterone percentage Low 1.1-2.6 [facility] Free and bioavailable testos terone measurementon 03-17-2024 Testosterone.free+wea kly bound [Mass/Vol] Free and bioavailable testosterone measurement 38.0-120.0 [facility] Laboratory - Chemistry and C hemistry - challengeon 03-17-2024 Albumin [Mass/Vol] 3.9 g/dL 3.9-4.9 [facility] Calcium [Mass/Vol] 9.6 mg/dL 8.5-10.2 [facility] Chloride [Moles/Vol] 104 mmol/L 98-107 [facility] CO2 [Moles/Vol] 27 mmol/L 22-30 [facility] Creatinine [Mass/Vol] 1.35 mg/dL High 0.73-1.22 [facility] Glucose [Mass/Vol] 147 mg/dL High 74-99 [facility] Comment on above: The [place] Diabete s Association (ADA) provides guidance for [...] Standards of Medical Care in Diabetes 2016, [place] Diabetes Association. Diabetes Care. 2016.39(Suppl 1). Magnesium [Mass/Vol] 1.8 mg/dL 1.7-2.3 [facility] Potassium [Moles/Vol] 4.6 mmol/L 3.7-5.1 [facility] Sodium [Moles/Vol] 141 mmol/L 136-144 [facility] Testosterone [Mass/Vol] 173.6 ng/dL 105.0-324.0 [facility] Urea nitrogen [Mass/Vol] 20 mg/dL 9-24 [facility] Magnesium SerPl-mCncon 03-17 Magnesium [Mass/Vol] 1.8 mg/dL Normal 1.7-2.3 [facility] Comment on above: Order Comment: Speci men Type: BLOOD SPECIMEN Ordering Facility: [facility] Address: [address] [place] [address] Performed By: #### 5 7021-8 #### [facility] CLIA [id number] [address] [place] [address] No Panel Informationon 03-17 Estimated GFR (CKD-EPI) 59 mL/min/1.73m??? Low >=60 [facility] Comment on above: Estimated Glomerular Filtration Rate [...] GFR. Parathyroid Hormone (Intact) 71 pg/mL High [facility] Phosphorus Level 2.5 mg/dL Low 2.7-4.8 [facility] Sex Hormone Binding Globulin 104 nmol/L High 14-82 [facility] Testosterone Level 764 ng/dL 193-824 [facility] Comment on above: A testosterone level in the 193-320 ng/dL range with associated clinical symptoms is considered low and may indicate hypogonadism (from NEJM 2010 363:123-135). Results >320 ng/dL are considered normal. PTH-Intact SerPl-mCncon 02-22 Parathyrin.intact [Mass/Vol] 71 pg/mL High 15-65 [facility] Comment on above: Order Comment: Speci men Type: BLOOD SPECIMEN Ordering Facility: [facility] Address: [address] [place] [address] Performed By: #### S QBTESTM, 16418 #### [facility] CLIA [id number] [address] [facility] [place] [address] [place] Renal function 2000 panelon 03-17-2024 Albumin [Mass/Vol] 3.8 g/dL Low 3.9-4.9 [facility] Comment on above: Order Comment: Speci men Type: BLOOD SPECIMEN Ordering Facility: [facility] Address: [address] [place] [address] Performed By: #### 5 7021-8 #### [facility] CLIA [id number] [address] [place] [address] Anion gap [Moles/Vol] 10 mmol/L Normal 8-15 [facility] Comment on above: Order Comment: Speci men Type: BLOOD SPECIMEN Ordering Facility: [facility] Address: [address] [place] [address] Performed By: #### 5 7021-8 #### [facility] CLIA [id number] [address] [place] [address] Calcium [Mass/Vol] 9.6 mg/dL Normal 8.5-10.2 [facility] Comment on above: Order Comment: Speci men Type: BLOOD SPECIMEN Ordering Facility: [facility] Address: [address] [place] [address] Performed By: #### 5 7021-8 #### [facility] CLIA [id number] [address] [place] [address] Chloride [Moles/Vol] 104 mmol/L Normal 98-107 [facility] Comment on above: Order Comment: Speci men Type: BLOOD SPECIMEN Ordering Facility: [facility] Address: [address] [place] [address] Performed By: #### 5 7021-8 #### [facility] CLIA [id number] [address] [place] [address] CO2 [Moles/Vol] 27 mmol/L Normal 22-30 [facility] Comment on above: Order Comment: Speci men Type: BLOOD SPECIMEN Ordering Facility: [facility] Address: [address] [place] [address] Performed By: #### 5 7021-8 #### [facility] CLIA [id number] [address] [place] [address] Creatinine [Mass/Vol] 1.35 mg/dL High 0.73-1.22 [facility] Comment on above: Order Comment: Jimena men Type: BLOOD SPECIMEN Ordering Facility: [facility] Address: [address] [place] [address] Performed By: #### 5 7021-8 #### [facility] CLIA [id number] [address] [place] [address] Creatinine and Glomerular filtration rate.predicted panel (S/P/Bld) 59 mL/min/1.73m??? Low >=60 [facility] Comment on above: Order Comment: Jimena wallace Type: BLOOD SPECIMEN Ordering Facility: [facility] Address: [address] [place], [place] [id number] Result Comment: Aneta mated Glomerular Filtration Rate [...] GFR. Performed By: #### 5 7021-8 #### [facility] CLIA [id number] [address] [place] [address] Glucose [Mass/Vol] 147 mg/dL High 74-99 [facility] Comment on above: Order Comment: Jimena madison Type: BLOOD SPECIMEN Ordering Facility: [facility] Address: [address] [place] [id number] Result Comment: The [place] Diabetes Association (ADA) provides guidance for cutoff [...] Standards of Medical Care in Diabetes 2016, [place] Diabetes Association. Diabetes Care. 2016.39(Suppl 1). Performed By: #### 5 7021-8 #### [facility] CLIA [id number] [address] [place] [address] Phosphate [Mass/Vol] 2.5 mg/dL Low 2.7-4.8 [facility] Comment on above: Order Comment: Speci madison Type: BLOOD SPECIMEN Ordering Facility: [facility] Address: [address] [place] [address] Performed By: #### 5 7021-8 #### [facility] CLIA [id number] [address] [place] [address] Potassium [Moles/Vol] 4.6 mmol/L Normal 3.7-5.1 [facility] Comment on above: Order Comment: Vii madison Type: BLOOD SPECIMEN Ordering Facility: [facility] Address: [address] [place], [place] [address] Performed By: #### 5 7021-8 #### [facility] CLIA [id number] [address] [place] [address] Sodium [Moles/Vol] 141 mmol/L Normal 136-144 [facility] Comment on above: Order Comment: Speci men Type: BLOOD SPECIMEN Ordering Facility: [facility] Address: [address] [place] [address] Performed By: #### 5 7021-8 #### [facility] CLIA [id number] [address] [place] [address] Urea nitrogen [Mass/Vol] 20 mg/dL Normal 9-24 [facility] Comment on above: Order Comment: Speci men Type: BLOOD SPECIMEN Ordering Facility: [facility] Address: [address] [place] [id number] Performed By: #### 5 7021-8 #### [facility] CLIA [id number] [address] [place] [address] Serum or plasma anion gap de terminationon 03-17-2024 Anion gap [Moles/Vol] Serum or plasma an ion gap determination 8-15 [facility] Serum or plasma calcidiol me asurement (mass/volume)on 03-17-2024 25-hydroxyvitamin D3 [Mass/Vol] Serum or plasma calcidiol measurement (mass/volume) 31.0-80.0 [facility] CALCIUM, 24 HR URINEon 02-11 Calcium (24H U) [Mass/Time] 39.1 mg/24 hr Low 100.0-300.0 [facility] Comment on above: Order Comment: Speci men Type: URINE SPECIMEN Ordering Facility: [facility] Address: [address] [place] [address] Performed By: #### U CALCD, 2955- #### [facility] CLIA [id number] [address] [place] [address] [place] #### UCRD #### [facility] CLIA [id number] [address] [place] [address] [place] [facility] CLIA [id number] [address] [place] [address] CREATININE, 24 HOUR URINEon 02-12-2024 Creatinine (24H U) [Mass/Time] 1.506 g/24 hr Normal 1.000-2.000 [facility] Comment on above: Order Comment: Speci men Type: URINE SPECIMEN Ordering Facility: [facility] Address: [address] [place] [address] Performed By: #### U CALCD, 2955- #### [facility] CLIA [id number] [address] [place] [address] [place] #### UCRD #### [facility] CLIA [id number] [facility] [address] [address] [place] [facility] CLIA [id number] [address] [place] [address] PERIOD (HRS) 24 hr Normal [facility] Comment on above: Order Comment: Speci men Type: URINE SPECIMEN Ordering Facility: [facility] Address: [address] [place], [place] [address] Performed By: #### U CALCD, 2956-1 #### [facility] CLIA [id number] [address] [place] [address] [place] #### UCRD #### [facility] CLIA [id number] [address] [place] [address] [place] [facility] CLIA [id number] [address] [place] [address] Specimen volume (24H U) 1.7 L Normal [facility] Comment on above: Order Comment: Speci men Type: URINE SPECIMEN Ordering Facility: [facility] Address: [address] [place] [address] Performed By: #### U CALCD, 2956-1 #### [facility] [facility] CLIA [id number] [address] [place] [address] [place] #### UCRD #### [facility] CLIA [id number] [address] [place] [address] [place] [facility] CLIA [id number] [address] [place] [address] 67498 Citrate 24h Ur-mRateon 02-11 Citrate (24H U) [Mass/Time] 418 mg/24hrs Normal 120-930 [facility] Comment on above: Order Comment: Speci men Type: BLOOD SPECIMEN Ordering Facility: [facility] Address: [address] [id number] Result Comment: This test was developed, and its performance characteristics determined by the [facility] Department of Pathology and Laboratory Medicine. It has not been cleared or approved by the FDA. The [facility] Department of Pathology and Laboratory Medicine is regulated under CLIA as qualified to perform high-complexity testing. This test is used for clinical purposes. It should not be regarded as investigational or for research. Performed By: #### 5 7021-8 #### [facility] CLIA [id number] [address] [place] [address] 80894 Oxalate 24h Ur-mRateon 02-11 Oxalate (24H U) [Mass/Time] 39 mg/24hrs Normal 7-44 [facility] Comment on above: Order Comment: Speci men Type: URINE SPECIMEN Ordering Facility: [facility] Address: [address] [place] [address] Result Comment: This test was developed, and its performance characteristics determined by the [facility] Department of Pathology and Laboratory Medicine. It has not been cleared or approved by the FDA. The [facility] Department of Pathology and Laboratory Medicine is regulated under CLIA as qualified to perform high-complexity testing. This test is used for clinical purposes. It should not be regarded as investigational or for research. Performed By: #### U CALCD, 2956-1 #### [facility] CLIA [id number] [address] [place] [address] [place] #### UCRD #### [facility] CLIA [id number] [address] [place] [address] [place] [facility] CLIA [id number] [address] [place] [address] 79742 Sodium 24h Ur-sRateon 2023 Sodium (24H U) [Moles/Time] 223 mmol/24 hr High 40-220 [facility] Comment on above: Order Comment: Speci men Type: URINE SPECIMEN Ordering Facility: [facility] Address: [address] [place] [address] Performed By: #### U CALCD, 2956-1 #### [facility] CLIA [id number] [address] [place], [place] [id number] [place] #### UCRD #### [facility] CLIA [id number] [address] [place], [place] [id number] [facility] CLIA [id number] [address] [place] [address] 72863 Urate 24h Ur-mRateon 024 Urate (24H U) [Mass/Time] 642.6 mg/24hr Normal 250.0-750.0 [facility] Comment on above: Order Comment: Speci men Type: BLOOD SPECIMEN Ordering Facility: [facility] Address: [address] [place] [address] Performed By: #### 5 7021-8 #### [facility] CLIA [id number] [address] [place] [address] 76055 CNOVon 02-08-2024 CNOV Office Visit (ENCAMN ) ELENA FELIX ([id number]) 1960 M Date Time Provider Department 02/08/24 10:00 AM ALYSHA EMANUEL ENCAMN During your visit today, we recorded the [...] [place] [address] [facility] [address] for evaluation, management, and treatment of the following issues: bone health My final recommendations will be communicated back to the requesting physician by way of shared medical record or letter. Coming from [place], [place] Mr. Felix is here to discuss [...] Arthritis Back pain four back surgeries Cardiomyopathy ([facility]) Nonischemic Congestive Cerebrovascular small vessel disease 08/24/2016 On ASA DVT (deep venous thrombosis) ([facility]) Esophageal reflux Former smoker Kidney stones Major depressive disorder with single episode, in remission ([facility]) 08/24/2016 Morbid obesity with BMI of 40.0-44.9, adult ([facility]) Neuropathy Obstructive sleep apnea syndrome, severe On auto-CPAP - sleep study done on 07/10/16 Pneumonia POTS (postural orthostatic tachycardia syndrome) PAS (more content not included)... Normal [facility] Urology Office/Clinic Noteon 01-04-2024 Urology Office/Clinic Note [...] Contact Information ARABELLA MUNIZ, Jerrod Moya, URL [address] [place], [place] [address]- Additional Instructions: 06/2024 with PSA Patient Education [...] using fluoros (more content not included)... Normal [facility] Comment on above: Result Comment: Elec tronically Signed By: Jerrod BELL MD\.br\Date and Time Signed: 01/04/24 11:28 EDT\.br\Electronically Co-Signed By: Haylee Gutierres\.br\Date and Time Co-Signed: 01/04/24 11:26 EDT Surgical Pathology Reporton 12-27-2023 Surgical Pathology Report [facility] [address] [place] [address]- Surgical Pathology Report Collected Date/Time: 12/25/2023 09:49 EDT Pathologist: Shady Good MD Received Date/Time: 12/25/2023 14:49 EDT ARABELLA MUNIZ, Jerrod Villagomez MD Surgical Pathology Report - 12/27/2023 14:38 EDT [...] is entirely submitted in one cassette. (DC) DC:[facility] Microscopic Description Microscopic examination performed unless gross only specified. Normal [facility] Comment on above: Performed By: #### 4 [id number] #### [facility] [address] [place] [address] Main OR Intraoperative Recor don 12-25-2023 Main OR Intraoperative Record Main OR Intraoperative Record IntraOp Document Type FTURO Summary Primary Physician: Jerrod BELL MD Finalized Date/Time: 12/25/23 10:00:53 Pt. Name: ELENA FELIX.O.B./Sex: 1960 Male Med Rec #: [id number] Physician: Jerrod BELL MD Financial #: [id number] Pt. Type: O Room/Bed: / Admit/Disch: 12/25/23 [...] Mary Garcia Role Performed Surgeon - Primary Vice President Underwriting - Primary Scrub - Primary Time In 12/25/23 09:37:00 12/25/23 09:37:00 12/25/23 09:37:00 Time Out 12/25/23 10:02:00 12/25/23 10:02:00 12/25/23 10:02:00 Procedure PENILE CONDYLOMA PENILE CONDYLOMA PENILE CONDYLOMA EXCISION(.) EXCISION(.) EXCISION(.) Comments Last Modified By: Aleksandra BRAGG, Agata Lake RN, Agata Tom RN 12/25/23 Erica Rodríguez 12/25/23 Erica Rodríguez 12/25/23 09:56:39 09:56:39 09:56:39 Entry 4 Case Attendee MOLLY DODGE MD Role Performed Staff - Other Time In [...] MD, Verified (If Participants Aleksandra BRAGG, Agata Applicable) Tim Sams Laura C, NKANSAH-AMANKRA MD, MOLLY Time Out Complete 12/25/23 09:40:00 Allergies [...] Signed By: Agata Lake RN 12/25/23 10:00 [facility] Main OR Preoperative Recordo n 12-25-2023 Main OR Preoperative Record Main OR Preoperative Record Holding Area Document Type FTURO Summary Primary Physician: Jerrod BELL MD Finalized Date/Time: 12/25/23 09:38:14 Pt. Name: ELENA FELIX/Sex: 1960 Male Med Rec #: [id number] Physician: Jerrod BELL MD Financial #: [id number] Pt. Type: O Room/Bed: / Admit/Disch: 12/25/23 [...] Complaints of Pain: No Skin Integrity Intact, [place], Warm, & Dry Vitals - EU Blood Pressure 140/80 Pulse 82 bpm Respirations 18 br/min SPO2 99 % Additional None RN Reviewed Yes Specimens Collected Last Modified By: Agata Lake RN 12/25/23 09:38:10 Finalized By: Agata Lake RN Document Signatures Signed By: Rosanna Hernandez LPN 12/25/23 09:05 Agata Lake RN 12/25/23 09:38 Normal [facility] Operative Reporton Operative Report Operative Report Patient: [...] a week to remove the sutures. Normal [facility] Comment on above: Result Comment: Elec tronically Signed By: ARABELLA MUNIZ, Jerrod Stern\Date and Time Signed: 12/25/23 10:05 EDT CNOVSPon 12-04-2023 CNOVSP Visit (SP) Office ([facility]) ELENA FELIX ([id number]) 1960 M Date Time Provider Department 12/04/23 9:30 AM MERLY MARTI During your visit today, we recorded the following information about you: Temperature Pulse Respiration Blood pressure 97.3 degrees 97/minute 16/minute 97/65 Weight Height 138.5 kg 1.88 m Merly Marti MD 12/04/2023 10:01 AM Signed PATIENT NAME: Elena Felix CLINIC NO.: [id number] ATTENDING PHYSICIAN: Merly Marti MD DATE OF SERVICE: December 04, 2023 Some of the elements of this note have been copied from my previous progress note dated 11/15/2022. All the information has been reviewed carefully. Dear Dr. Silvana Lundberg, here is an update on a follow up visit on stacie Felix at the clinic December 04, 2023 Diagnosis: DVT Treatment History: HPI: Elena Felix is a 63 year old year old male here for follow up. No new complaints and continues to be off the Eliquis. He does complain of fatigue and denies any fevers and or chills. Eating well. PAST MEDICAL HISTORY No date: Ankylosing spondylitis (HCC) Comment: Dr Hodges No date: Ankylosing spondylitis (HCC) No date: Arthritis No date: Back pain No date: Cardiomyopathy (HCC) Comment: Nonischemic Congestive 08/24/2016: Cerebrovascular small vessel disease Comment: On ASA No date: DVT (deep venous thrombosis) ([facility]) No date: Esophageal reflux No date: Former smoker No date: Kidney stones 08/24/2016: Major depressive disorder with single episode, in remission ([facility]) No date: Morbid obesity with BMI of 40.0-44.9, adult ([facility]) No date: Neuropathy No date: Obstructive sleep [...] Date Va (more content not included)... Normal [facility] CNOVon 11-29-2023 CNOV Office Visit (ORFWHP ) ISIDRO,ELENA J ([id number]) 1960 M Date Time Provider Department 11/29/23 9:45 AM MISTY WALLACE During your visit today, we recorded the [...] [S72.002G] Order(s):XR HIP GENERAL 3V PELV/AP/LAT LEFT [[id number]] Order #: [id number] FUTURE CONSULT TO PHYSICAL THERAPY [8912] Order #: [id number]: 1 FUTURE Prescriptions as of 11/29/2023 - [...] colitis [A (more content not included)... Normal [facility] XR HIP 3V PELV+ AP/LAT LTon [...] the left proximal femur with intact hardware. Infectious Disease Technician: PSCB Transcribe Date/Time: Dec 03 2023 3:16P Dictated by : NIK STANFORD MD This examination was interpreted and the report reviewed and electronically signed by: NIK STANFORD MD on Dec 03 2023 3:19PM EST [id number] Normal [facility] CBC W Auto Differential pane l (Bld)on 11-07-2023 Basophils (Bld) [#/Vol] 0.05 10*3/uL Normal <0.11 [facility] Comment on above: Order Comment: Speci men Type: BLOOD SPECIMEN Ordering Facility: [facility] Address: [address] [place] [address] Performed By: #### 5 7021-8 #### [facility] CLIA [id number] [address] [place] [address] 55561 Basophils/100 WBC (Bld) 0.8 % Normal [facility] Comment on above: Order Comment: Speci men Type: BLOOD SPECIMEN Ordering Facility: [facility] Address: [address] [place] [address] Performed By: #### 5 7021-8 #### [facility] CLIA [id number] [address] [place] [address] 76688 Differential cell count method Nom (Bld) Auto Normal [facility] Comment on above: Order Comment: Speci men Type: BLOOD SPECIMEN Ordering Facility: [facility] Address: [address] [place] [address] Performed By: #### 5 7021-8 #### [facility] CLIA [id number] [address] [place] [address] 29020 Eosinophils (Bld) [#/Vol] 0.33 10*3/uL Normal <0.46 [facility] Comment on above: Order Comment: Speci men Type: BLOOD SPECIMEN Ordering Facility: [facility] Address: [address] [place] [address] Performed By: #### 5 7021-8 #### [facility] CLIA [id number] [address] [place] [address] 91482 Eosinophils/100 WBC (Bld) 5.2 % Normal [facility] Comment on above: Order Comment: Speci men Type: BLOOD SPECIMEN Ordering Facility: [facility] Address: [address] [place] [address] Performed By: #### 5 7021-8 #### [facility] CLIA [id number] [address] [place] [address] 27801 Erythrocyte distribution width (RBC) [Ratio] 16.0 % High 11.5-15.0 [facility] Comment on above: Order Comment: Speci men Type: BLOOD SPECIMEN Ordering Facility: [facility] Address: [address] [place] [address] Performed By: #### 5 7021-8 #### [facility] CLIA [id number] [address] [place] [address] 08006 Hematocrit (Bld) [Volume fraction] 39.6 % Normal 39.0-51.0 [facility] Comment on above: Order Comment: Speci men Type: BLOOD SPECIMEN Ordering Facility: [facility] Address: [address] [place] [address] Performed By: #### 5 7021-8 #### [facility] CLIA [id number] [address] [place] [address] 13495 Hemoglobin (Bld) [Mass/Vol] 12.4 g/dL Low 13.0-17.0 [facility] Comment on above: Order Comment: Speci men Type: BLOOD SPECIMEN Ordering Facility: [facility] Address: [address] [place] [address] Performed By: #### 5 7021-8 #### [facility] CLIA [id number] [address] [place] [address] 39513 Immature granulocytes (Bld) [#/Vol] 0.07 10*3/uL Normal <0.10 [facility] Comment on above: Order Comment: Speci men Type: BLOOD SPECIMEN Ordering Facility: [facility] Address: [address] [place] [address] Performed By: #### 5 7021-8 #### [facility] CLIA [id number] [address] [place] [address] 87829 Immature granulocytes/100 WBC (Bld) 1.1 % Normal [facility] Comment on above: Order Comment: Speci men Type: BLOOD SPECIMEN Ordering Facility: [facility] Address: [address] [place] [address] Performed By: #### 5 7021-8 #### [facility] CLIA [id number] [address] [place] [address] 11267 Lymphocytes (Bld) [#/Vol] 1.71 10*3/uL Normal 1.00-4.00 [facility] Comment on above: Order Comment: Speci men Type: BLOOD SPECIMEN Ordering Facility: [facility] Address: [address] [place] [address] Performed By: #### 5 7021-8 #### [facility] CLIA [id number] [address] [place] [address] 67632 Lymphocytes/100 WBC (Bld) 27.1 % Normal [facility] Comment on above: Order Comment: Speci men Type: BLOOD SPECIMEN Ordering Facility: [facility] Address: [address] [place] [address] Performed By: #### 5 7021-8 #### [facility] CLIA [id number] [address] [place] [address] 46002 MCH (RBC) [Entitic mass] 29.5 pg Normal 26.0-34.0 [facility] Comment on above: Order Comment: Speci men Type: BLOOD SPECIMEN Ordering Facility: [facility] Address: [address] [place] [address] Performed By: #### 5 7021-8 #### [facility] CLIA [id number] [address] [place] [address] 80214 MCHC (RBC) [Mass/Vol] 31.3 g/dL Normal 30.5-36.0 [facility] Comment on above: Order Comment: Speci men Type: BLOOD SPECIMEN Ordering Facility: [facility] Address: [address] [place] [address] Performed By: #### 5 7021-8 #### [facility] CLIA [id number] [address] [place] [address] 51596 MCV (RBC) [Entitic vol] 94.3 fL Normal 80.0-100.0 [facility] Comment on above: Order Comment: Speci men Type: BLOOD SPECIMEN Ordering Facility: [facility] Address: [address] [place] [address] Performed By: #### 5 7021-8 #### [facility] CLIA [id number] [address] [place] [address] 55609 Monocytes (Bld) [#/Vol] 0.91 10*3/uL High <0.87 [facility] Comment on above: Order Comment: Speci men Type: BLOOD SPECIMEN Ordering Facility: [facility] Address: [address] [place] [address] Performed By: #### 5 7021-8 #### [facility] CLIA [id number] [address] [place] [address] 16835 Monocytes/100 WBC (Bld) 14.4 % Normal [facility] Comment on above: Order Comment: Speci men Type: BLOOD SPECIMEN Ordering Facility: [facility] Address: [address] [place] [address] Performed By: #### 5 7021-8 #### [facility] CLIA [id number] [address] [place] [address] 01893 Neutrophils (Bld) [#/Vol] 3.25 10*3/uL Normal 1.45-7.50 [facility] Comment on above: Order Comment: Speci men Type: BLOOD SPECIMEN Ordering Facility: [facility] Address: [address] [place] [address] Performed By: #### 5 7021-8 #### [facility] CLIA [id number] [address] [place] [address] Neutrophils/100 WBC (Bld) 51.4 % Normal [facility] Comment on above: Order Comment: Speci men Type: BLOOD SPECIMEN Ordering Facility: [facility] Address: [address] [place] [address] Performed By: #### 5 7021-8 #### [facility] CLIA [id number] [address] [place] [address] 89397 Nucleated RBC (Bld) [#/Vol] 10*3/uL Normal <0.01 [facility] Comment on above: Order Comment: Speci men Type: BLOOD SPECIMEN Ordering Facility: [facility] Address: [address] [place] [address] Performed By: #### 5 7021-8 #### [facility] CLIA [id number] [address] [place] [address] 22016 Nucleated RBC/100 WBC (Bld) [Ratio] 0.0 /100 WBC Normal [facility] Comment on above: Order Comment: Speci men Type: BLOOD SPECIMEN Ordering Facility: [facility] Address: [address] [place] [address] Performed By: #### 5 7021-8 #### [facility] CLIA [id number] [address] [place] [address] 68117 Platelet mean volume (Bld) [Entitic vol] 9.4 fL Normal 9.0-12.7 [facility] Comment on above: Order Comment: Speci men Type: BLOOD SPECIMEN Ordering Facility: [facility] Address: [address] [place] [address] Performed By: #### 5 7021-8 #### [facility] CLIA [id number] [address] [place] [address] 28395 Platelets (Bld) [#/Vol] 246 10*3/uL Normal 150-400 [facility] Comment on above: Order Comment: Speci men Type: BLOOD SPECIMEN Ordering Facility: [facility] Address: [address] [place] [address] Performed By: #### 5 7021-8 #### [facility] CLIA [id number] [address] [place] [address] 81072 RBC (Bld) [#/Vol] 4.20 10*6/uL Normal 4.20-6.00 [facility] Comment on above: Order Comment: Speci men Type: BLOOD SPECIMEN Ordering Facility: [facility] Address: [address] [place] [address] Performed By: #### 5 7021-8 #### [facility] CLIA [id number] [address] [place] [address] 81767 WBC (Bld) [#/Vol] 6.32 10*3/uL Normal 3.70-11.00 [facility] Comment on above: Order Comment: Speci men Type: BLOOD SPECIMEN Ordering Facility: [facility] Address: [address] [place] [address] Performed By: #### 5 7021-8 #### [facility] CLIA [id number] [address] [place] [address] 68739 Comprehensive metabolic 2000 panelon 11-07-2023 Albumin [Mass/Vol] 3.8 g/dL Low 3.9-4.9 [facility] Comment on above: Order Comment: Speci men Type: BLOOD SPECIMEN Ordering Facility: [facility] Address: [address] [place] [address] Performed By: #### S JamarBTESTAleksey, 2730-8 #### [facility] CLIA [id number] [address] [facility] [id number] [address] [place] ALP [Catalytic activity/Vol] 83 U/L Normal 38-113 [facility] Comment on above: Order Comment: Speci men Type: BLOOD SPECIMEN Ordering Facility: [facility] Address: [address] [place] [address] Performed By: #### S QBTESTM, 2730-8 #### [facility] CLIA [id number] [address] [place] [address] [place] ALT [Catalytic activity/Vol] 20 U/L Normal 10-54 [facility] Comment on above: Order Comment: Speci men Type: BLOOD SPECIMEN Ordering Facility: [facility] Address: [address] [place] [address] Performed By: #### S QBTESTM, 2730-11 #### [facility] CLIA [id number] [address] [place] [address] [place] Anion gap [Moles/Vol] 10 mmol/L Normal 8-15 [facility] Comment on above: Order Comment: Speci men Type: BLOOD SPECIMEN Ordering Facility: [facility] Address: [address] [place] [address] Performed By: #### S QBTESTM, 2730-11 #### [facility] CLIA [id number] [address] [place] [address] [place] AST [Catalytic activity/Vol] 19 U/L Normal 14-40 [facility] Comment on above: Order Comment: Speci men Type: BLOOD SPECIMEN Ordering Facility: [facility] Address: [address] [place] [address] Performed By: #### S QBTESTM, 2730-11 #### [facility] CLIA [id number] [address] [place] [address] [place] Bilirubin [Mass/Vol] 0.3 mg/dL Normal 0.2-1.3 [facility] Comment on above: Order Comment: Speci men Type: BLOOD SPECIMEN Ordering Facility: [facility] Address: [address] [place] [address] Performed By: #### S QBTESTM, 2730-11 #### [facility] CLIA [id number] [address] [place], [place] [address] [place] Calcium [Mass/Vol] 9.5 mg/dL Normal 8.5-10.2 [facility] Comment on above: Order Comment: Speci men Type: BLOOD SPECIMEN Ordering Facility: [facility] Address: [address] [place] [address] Performed By: #### S QBTESTM, 2730-11 #### [facility] CLIA [id number] [address] [place] [address] [place] Chloride [Moles/Vol] 111 mmol/L High 98-107 [facility] Comment on above: Order Comment: Speci men Type: BLOOD SPECIMEN Ordering Facility: [facility] Address: [address] [place] [address] Performed By: #### S QBTESTM, 2730-11 #### [facility] CLIA [id number] [address] [place] [address] [place] CO2 [Moles/Vol] 26 mmol/L Normal 22-30 [facility] Comment on above: Order Comment: Speci men Type: BLOOD SPECIMEN Ordering Facility: [facility] Address: [address] [place] [address] Performed By: #### S QBTESTM, 2730-11 #### [facility] CLIA [id number] [address] [place] [address] [place] Creatinine [Mass/Vol] 1.43 mg/dL High 0.73-1.22 [facility] Comment on above: Order Comment: Speci men Type: BLOOD SPECIMEN Ordering Facility: [facility] Address: [address] [place] [address] Performed By: #### S QBTESTM, 2730-11 #### [facility] [facility] CLIA [id number] [address] [place] [address] [place] Creatinine and Glomerular filtration rate.predicted panel (S/P/Bld) 55 mL/min/1.73m??? Low >=60 [facility] Comment on above: Order Comment: Speci men Type: BLOOD SPECIMEN Ordering Facility: [facility] Address: [address] [place] [address] Result Comment: Aneta mated Glomerular Filtration Rate [...] actual GFR. Performed By: #### S QBTESTM, 2730-11 #### [facility] CLIA [id number] [address] [place] [address] [place] Glucose [Mass/Vol] 109 mg/dL High 74-99 [facility] Comment on above: Order Comment: Jimena wallace Type: BLOOD SPECIMEN Ordering Facility: [facility] Address: [address] [place] [address] Result Comment: The [place] Diabetes Association (ADA) provides guidance for cutoff [...] Standards of Medical Care in Diabetes 2016, [place] Diabetes Association. Diabetes Care. 2016.39(Suppl 1). Performed By: #### S QBTESTM, 2730-11 #### [facility] CLIA [id number] [address] [place] [address] [place] Potassium [Moles/Vol] 4.5 mmol/L Normal 3.7-5.1 [facility] Comment on above: Order Comment: Jimena wallace Type: BLOOD SPECIMEN Ordering Facility: [facility] Address: [address] [place] [address] Performed By: #### S QBTESTM, 2730-11 #### [facility] CLIA [id number] [address] [place] [address] [place] Protein [Mass/Vol] 6.8 g/dL Normal 6.3-8.0 [facility] Comment on above: Order Comment: Speci men Type: BLOOD SPECIMEN Ordering Facility: [facility] Address: [address] [place] [address] Performed By: #### S QBTESTM, 2730-11 #### [facility] CLIA [id number] [address] [place] [address] [place] Sodium [Moles/Vol] 147 mmol/L High 136-144 [facility] Comment on above: Order Comment: Speci men Type: BLOOD SPECIMEN Ordering Facility: [facility] Address: [address] [place] [address] Performed By: #### S QBTESTM, 2730-11 #### [facility] CLIA [id number] [address] [place] [address] [place] Urea nitrogen [Mass/Vol] 19 mg/dL Normal 9-24 [facility] Comment on above: Order Comment: Speci men Type: BLOOD SPECIMEN Ordering Facility: [facility] Address: [address] [place] [address] Performed By: #### S QBTESTM, 2730-11 #### [facility] CLIA [id number] [address] [place] [address] [place] IMMUNOFIXATION SCREEN, SERUM on 11-07-2023 MPA RESULT No M protein is identified. Normal No M protein is identified. [facility] Comment on above: Order Comment: Speci men Type: BLOOD SPECIMEN Ordering Facility: [facility] Address: [address] [place] [address] Performed By: #### S QBTESTM, 2730-11 #### [facility] [place] CLIA [id number] [address] [place] [address] [place] STAFF REVIEW (MPA) Reviewed by Kaylyn Herrera MD [facility] Comment on above: Order Comment: Speci men Type: BLOOD SPECIMEN Ordering Facility: [facility] Address: [address] [place] [address] Performed By: #### S QBTESTM, 2731-8 #### [facility] CLIA [id number] [address] [place] [address] [place] IMMUNOGLOBULINS,IGG,IGA,IGMo n 11-07-2023 IgA [Mass/Vol] 147 mg/dL Normal 70-400 [facility] Comment on above: Order Comment: Speci men Type: BLOOD SPECIMEN Ordering Facility: [facility] Address: [address] [place] [address] Performed By: #### 5 7021-8 #### [facility] CLIA [id number] [address] [place] [address] IgG [Mass/Vol] 793 mg/dL Normal 700-1600 [facility] Comment on above: Order Comment: Speci men Type: BLOOD SPECIMEN Ordering Facility: [facility] Address: [address] [place] [address] Performed By: #### 5 7021-8 #### [facility] CLIA [id number] [address] [place] [address]606 IgM [Mass/Vol] 26 mg/dL Low 40-230 [facility] Comment on above: Order Comment: Speci men Type: BLOOD SPECIMEN Ordering Facility: [facility] Address: [address] [place] [address] Performed By: #### 5 7021-8 #### [facility] CLIA [id number] [address] [place] [address] KAPPA/KEANE,FREE,SERon 2023 Immunoglobulin light chains.kappa.free (S) [Mass/Vol] 32.4 mg/L High 3.3-19.4 [facility] Comment on above: Order Comment: Speci men Type: BLOOD SPECIMEN Ordering Facility: [facility] Address: [address] [place] [address] Result Comment: Rare ly, increased serum free light chains levels may not be detected or accurately quantified due to prozone phenomenon or in high viscosity samples using this immunoturbidimetric assay. Correlation with other laboratory results and clinical findings is recommended. The [place] Free Light Chain was performed using the Binding Site Optilite immunoturbidimetric method. Result obtained with different assay methods or kits cannot be used interchangeably. Performed By: #### 5 7021-8 #### [facility] CLIA [id number] [address] [place] [address] Immunoglobulin light chains.kappa/Immunogl obulin light chains.lambda (S) [Mass ratio] 1.85 High 0.26-1.65 [facility] Comment on above: Order Comment: Speci men Type: BLOOD SPECIMEN Ordering Facility: [facility] Address: [address] [place] [address] Performed By: #### 5 7021-8 #### [facility] CLIA [id number] [address] [place] [address]000 Immunoglobulin light chains.lambda.free [Mass/Vol] 17.5 mg/L Normal 5.7-26.3 [facility] Comment on above: Order Comment: Speci men Type: BLOOD SPECIMEN Ordering Facility: [facility] Address: [address] [place] [address] Result Comment: Rare ly, increased serum free [...] interchangeably. Performed By: #### 5 7021-8 #### [facility] CLIA [id number] [address] [place] [address]452 PROTEIN ELECTROPHORESIS SERU M (P)on 11-07-2023 Albumin [Mass/Vol] 3.18 g/dL Low 3.43-5.41 [facility] Comment on above: Order Comment: Speci men Type: URINE SPECIMEN Ordering Facility: [facility] Address: [address] [place] [address] Performed By: #### U CALCD, 2956- #### [facility] [place] CLIA [id number] [address] [place] [address] [place] #### UCRD #### [facility] CLIA [id number] [address] [place] [address] [place] [facility] CLIA [id number] [address] [place] [address] 19086 Alpha 1 globulin Elph [Mass/Vol] 0.40 g/dL Normal 0.18-0.43 [facility] Comment on above: Order Comment: Speci men Type: URINE SPECIMEN Ordering Facility: [facility] Address: [address] [place] [address] Performed By: #### U CALCD, 2955- #### [facility] CLIA [id number] [address] [place] [address] [place] #### UCRD #### [facility] [place] CLIA [id number] [address] [place] [address] [place] [facility] CLIA [id number] [address] [place] [address]387 Alpha 2 globulin Elph [Mass/Vol] 0.97 g/dL Normal 0.42-0.98 [facility] Comment on above: Order Comment: Speci men Type: URINE SPECIMEN Ordering Facility: [facility] Address: [address] [place] [address] Performed By: #### U CALCD, 2956- #### [facility] CLIA [id number] [address] [place] [address] [place] #### UCRD #### [facility] CLIA [id number] [address] [place] [address] [place] [facility] CLIA [id number] [address] [place] [address] 07056 Beta globulin Elph [Mass/Vol] 0.76 g/dL Normal 0.61-1.17 [facility] Comment on above: Order Comment: Speci men Type: URINE SPECIMEN Ordering Facility: [facility] Address: [address] [place] [address] Performed By: #### U CALCD, 2955- #### [facility] CLIA [id number] [address] [place] [address] [place] #### UCRD #### [facility] [place] CLIA [id number] [address] [place] [address] [place] [facility] CLIA [id number] [address] [place] [address]59 Gamma globulin Elph [Mass/Vol] 0.59 g/dL Normal 0.53-1.51 [facility] Comment on above: Order Comment: Speci men Type: URINE SPECIMEN Ordering Facility: [facility] Address: [address] [place] [address] Performed By: #### U CALCD, 2955- #### [facility] CLIA [id number] [address] [place] [address] [place] #### UCRD #### [facility] CLIA [id number] [address] [place] [address] [place] [facility] CLIA [id number] [address] [place] [address] 30744 M-PROTEIN LOCATION Normal [facility] Comment on above: Order Comment: Speci men Type: URINE SPECIMEN Ordering Facility: [facility] Address: [address] [place] [address] Result Comment: Not Applicable. Performed By: #### U CALCD, 2955- #### [facility] CLIA [id number] [address] [place] [address] [place] #### UCRD #### [facility] CLIA [id number] [address] [place] [address] [place] [facility] CLIA [id number] [address] [place] [address] 78333 Protein Fractions [Interp] No definitive M protein is identified on protein electrophoresis. Normal No definitive M protein is identified on protein electrophor esis. [facility] Comment on above: Order Comment: Speci men Type: URINE SPECIMEN Ordering Facility: [facility] Address: [address] [place] [address] Performed By: #### U CALCD, 2956-1 #### [facility] CLIA [id number] [address] [place] [address] [place] #### UCRD #### [facility] CLIA [id number] [address] [place] [address] [place] [facility] CLIA [id number] [address] [place] [address] Protein.monoclonal Elph [Mass/Vol] 0.00 g/dL Normal <=0.00 [facility] Comment on above: Order Comment: Speci men Type: URINE SPECIMEN Ordering Facility: [facility] Address: [address] [place] [address] Performed By: #### U CALCD, 2956-1 #### [facility] CLIA [id number] [address] [place] [address] [place] #### UCRD #### [facility] CLIA [id number] [address] [place], [place] [address] [place] [facility] CLIA [id number] [address] [place] [address]57 SPE STAFF REVIEW Reviewed by Kaylyn Herrera MD [facility] Comment on above: Order Comment: Speci men Type: URINE SPECIMEN Ordering Facility: [facility] Address: [address] [place] [address] Performed By: #### U CALCD, 2956-1 #### [facility] CLIA [id number] [address] [place] [address] [place] #### UCRD #### [facility] CLIA [id number] [address] [place] [address] [place] [facility] CLIA [id number] [address] [place] [address] Prot SerPl-mCpat 11-07-2023 Protein [Mass/Vol] 5.9 g/dL Low 6.3-8.0 [facility] Comment on above: Order Comment: Speci men Type: BLOOD SPECIMEN Ordering Facility: [facility] Address: [address] [place] [address] Performed By: #### S QBTESTM, 2731-8 #### [facility] CLIA [id number] [address] [place] [address] [place] Yuan 10-01-2023 SAHILN Telephone (ENDOMN) ELENA FELIX ([id number]) 1960 M Date Time Provider Department 10/01/23 [...] Encounter Status:Closed by BRAD ZAVALA on 10/01/23 [facility] Yuan 09-28-2023 SAHILN Telephone (ORFWHP) ISIDROELENA Shola ([id number]) 1960 M Date Time Provider Department 09/28/23 MISTY WALLACE During your visit today, we recorded the following information about you: Lana Londono-Babri Ko RN 09/28/2023 12:00 PM Signed ----- Message [...] Order(s):CONSULT TO HIP FRACTURE LIAISON SERVICE (FRAGILITY) [[id number]] Order #: [id number]: 1 FUTURE Prescriptions as of 09/28/2023 - [...] Status:Closed by ANABELLE LONDONO on 09/28/23 Normal [facility] 25(OH)D3 SerPl-mCncon 2023 25-hydroxyvitamin D3 [Mass/Vol] 19.7 ng/mL Low 31.0-80.0 [facility] Comment on above: Order Comment: Speci men Type: BLOOD SPECIMEN Ordering Facility: [facility] Address: [address] [place] [address] Result Comment: Clas sification of 25 OH Vitamin D status: Deficiency/Insufficiency: < or = 30 ng/ml. Sufficiency/Optimal Levels: 31-80 ng/mL Toxicity: > 100 ng/mL. Test performed by chemiluminescent immunoassay. Performed By: #### 1 989-3 #### [facility] CLIA [id number] [address] [place] [address] [place] 25-hydroxyvitamin D3 [Mass/V ol]on 09-27-2023 Interpretation and review of laboratory results Abnormal [facility] The reference range interval was based on an analysis of samples from healthy adults and may not pertain to children from 0-18 years old. [facility] C-REACTIVE PROTEINon 024 CRP [Mass/Vol] 0.4 mg/dL NINF - 0.9 mg/dL [facility] CBC panel Auto (Bld)on 09-26 Erythrocyte distribution width (RBC) [Ratio] 13.9 % 11.5 - 15.0 % [facility] Hematocrit (Bld) [Volume fraction] 44.7 % 39.0 - 51.0 % [facility] Hemoglobin (Bld) [Mass/Vol] 13.9 g/dL 13.0 - 17.0 g/dL [facility] Interpretation and review of laboratory results Normal [facility] MCH (RBC) [Entitic mass] 29.4 pg 26.0 - 34.0 pg [facility] MCHC (RBC) [Mass/Vol] 31.1 g/dL 30.5 - 36.0 g/dL [facility] MCV (RBC) [Entitic vol] 94.7 fL 80.0 - 100.0 fL [facility] Nucleated RBC (Bld) [#/Vol] NINF [facility] Platelet mean volume (Bld) [Entitic vol] 9.8 fL 9.0 - 12.7 fL [facility] Platelets (Bld) [#/Vol] 196 10*3/uL [facility] RBC (Bld) [#/Vol] 4.72 10*6/uL 4.20 - 6.0 0 m/uL [facility] WBC (Bld) [#/Vol] 5.35 10*3/uL [facility] Erythrocyte distribution width (RBC) [Ratio] 13.9 % Normal 11.5-15.0 [facility] Comment on above: Order Comment: Speci men Type: BLOOD SPECIMEN Ordering Facility: [facility] Address: [address] [place] [address] Performed By: #### 5 8410-2 #### [facility] CLIA [id number] [place] [address] [place] Hematocrit (Bld) [Volume fraction] 44.7 % Normal 39.0-51.0 [facility] Comment on above: Order Comment: Jimena men Type: BLOOD SPECIMEN Ordering Facility: [facility] Address: [address] [place] [address] Performed By: #### 5 8410-2 #### [facility] CLIA [id number] [address] [place] [address] [place] Hemoglobin (Bld) [Mass/Vol] 13.9 g/dL Normal 13.0-17.0 [facility] Comment on above: Order Comment: Speci men Type: BLOOD SPECIMEN Ordering Facility: [facility] Address: [address] [place] [address] Performed By: #### 5 8410-2 #### [facility] CLIA [id number] [address] [place] [address] [place] MCH (RBC) [Entitic mass] 29.4 pg Normal 26.0-34.0 [facility] Comment on above: Order Comment: Speci men Type: BLOOD SPECIMEN Ordering Facility: [facility] Address: [address] [place] [address] Performed By: #### 5 8410-2 #### [facility] CLIA [id number] [address] [place] [address] [place] MCHC (RBC) [Mass/Vol] 31.1 g/dL Normal 30.5-36.0 [facility] Comment on above: Order Comment: Speci men Type: BLOOD SPECIMEN Ordering Facility: [facility] Address: [address] [place] [address] Performed By: #### 5 8410-2 #### [facility] CLIA [id number] [address] [place] [address] [place] MCV (RBC) [Entitic vol] 94.7 fL Normal 80.0-100.0 [facility] Comment on above: Order Comment: Speci men Type: BLOOD SPECIMEN Ordering Facility: [facility] Address: [address] [place] [address] Performed By: #### 5 8410-2 #### [facility] CLIA [id number] [address] [place] [address] [place] Nucleated RBC (Bld) [#/Vol] 10*3/uL Normal <0.01 [facility] Comment on above: Order Comment: Speci men Type: BLOOD SPECIMEN Ordering Facility: [facility] Address: [address] [place] [address] Performed By: #### 5 8410-2 #### [facility] CLIA [id number] [address] [place] [address] [place] Platelet mean volume (Bld) [Entitic vol] 9.8 fL Normal 9.0-12.7 [facility] Comment on above: Order Comment: Speci men Type: BLOOD SPECIMEN Ordering Facility: [facility] Address: [address] [place] [address] Performed By: #### 5 8410-2 #### [facility] CLIA [id number] [address] [place] [address] [place] Platelets (Bld) [#/Vol] 196 10*3/uL Normal 150-400 [facility] Comment on above: Order Comment: Speci men Type: BLOOD SPECIMEN Ordering Facility: [facility] Address: [address] [place] [address] Performed By: #### 5 8410-2 #### [facility] CLIA [id number] [address] [place] [address] [place] RBC (Bld) [#/Vol] 4.72 10*6/uL Normal 4.20-6.00 [facility] Comment on above: Order Comment: Speci men Type: BLOOD SPECIMEN Ordering Facility: [facility] Address: [address] [place] [address] Performed By: #### 5 8410-2 #### [facility] CLIA [id number] [address] [place] [address] [place] WBC (Bld) [#/Vol] 5.35 10*3/uL Normal 3.70-11.00 [facility] Comment on above: Order Comment: Speci men Type: BLOOD SPECIMEN Ordering Facility: [facility] Address: [address] [place] [address] Performed By: #### 5 8410-2 #### [facility] CLIA [id number] [address] [place] [address] [place] CNOVon 09-27-2023 CNOV Office Visit (ORFWHP ) ELENA FELIX ([id number]) 1960 M Date Time Provider Department 09/27/23 [...] PAST MEDICAL HISTORY Diagnosis Date Ankylosing spondylitis ([facility]) Dr Hodges Ankylosing spondylitis ([facility]) Arthritis Back pain Cardiomyopathy ([facility]) Nonischemic Congestive Cerebrovascular small vessel disease 08/24/2016 On ASA DVT (deep venous thrombosis) ([facility]) Esophageal reflux Former smoker Kidney stones Major depressive disorder with single episode, in remission ([facility]) 08/24/2016 Morbid obesity with BMI of 40.0-44.9, adult ([facility]) Neuropathy Obstructive sleep apnea syndrome, severe On [...] with delaye (more content not included)... Normal [facility] CRP SerPl-mCncon 09-27-2023 CRP [Mass/Vol] 0.4 mg/dL Normal <0.9 [facility] Comment on above: Order Comment: Speci men Type: BLOOD SPECIMEN Ordering Facility: [facility] Address: [address] [place] [address] Performed By: #### 3 016-3, 28083-0, 1987-08 #### [facility] CLIA [id number] [address] [place] [address] [place] CRP [Mass/Vol]on 09-27-2023 Interpretation and review of laboratory results Normal [facility] Comprehensive metabolic 2000 panelon 09-27-2023 Albumin [Mass/Vol] 3.6 g/dL Low 3.9 - 4.9 g/dL [facility] ALP [Catalytic activity/Vol] 86 U/L 38 - 113 U/L [facility] ALT [Catalytic activity/Vol] 35 U/L 10 - 54 U/L [facility] Anion gap [Moles/Vol] 13 mmol/L 8 - 15 mmol/L [facility] AST [Catalytic activity/Vol] 28 U/L 14 - 40 U/L [facility] Bilirubin [Mass/Vol] 0.3 mg/dL 0.2 - 1 .3 mg/dL [facility] Calcium [Mass/Vol] 9.2 mg/dL 8.5 - 10. 2 mg/dL [facility] Chloride [Moles/Vol] 104 mmol/L 98 - 10 7 mmol/L [facility] CO2 [Moles/Vol] 25 mmol/L 22 - 30 mmol/L [facility] Creatinine [Mass/Vol] 1.13 mg/dL 0.73 - 1.22 mg/dL [facility] GFR/1.73 sq M.predicted among non-blacks MDRD (S/P/Bld) [Vol rate/Area] 73 mL/min/{1.73_m2} - PINF [facility] Comment on above: Estimated Glomerular Filtration [...] 103 mg/dL High 74 - 99 mg/dL [facility] Comment on above: The [place] Diabete s Association (ADA) provides guidance for [...] Standards of Medical Care in Diabetes 2016, [place] Diabetes Association. Diabetes Care. 2016.39(Suppl 1). Interpretation and review of laboratory results Abnormal [facility] Potassium [Moles/Vol] 4.8 mmol/L 3.7 - 5.1 mmol/L [facility] Protein [Mass/Vol] 6.8 g/dL 6.3 - 8.0 g/dL [facility] Sodium [Moles/Vol] 142 mmol/L 136 - 144 mmol/L [facility] Urea nitrogen [Mass/Vol] 12 mg/dL 9 - 24 mg/dL [facility] Albumin [Mass/Vol] 3.6 g/dL Low 3.9-4.9 [facility] Comment on above: Order Comment: Speci men Type: BLOOD SPECIMEN Ordering Facility: [facility] Address: [address] [place] [address] Performed By: #### 3 016-3, , 1987-08 #### [facility] CLIA [id number] [address] [place] [address] [place] ALP [Catalytic activity/Vol] 86 U/L Normal 38-113 [facility] Comment on above: Order Comment: Speci men Type: BLOOD SPECIMEN Ordering Facility: [facility] Address: [address] [place] [address] Performed By: #### 3 016-3, , 1987-08 #### [facility] CLIA [id number] [address] [place] [address] [place] ALT [Catalytic activity/Vol] 35 U/L Normal 10-54 [facility] Comment on above: Order Comment: Speci men Type: BLOOD SPECIMEN Ordering Facility: [facility] Address: [address] [place] [address] Performed By: #### 3 016-3, , 1987-08 #### [facility] CLIA [id number] [address] [place] [address] [place] Anion gap [Moles/Vol] 13 mmol/L Normal 8-15 [facility] Comment on above: Order Comment: Speci men Type: BLOOD SPECIMEN Ordering Facility: [facility] Address: [address] [place] [address] Performed By: #### 3 016-3, , 1987-08 #### [facility] CLIA [id number] [address] [place] [address] [place] AST [Catalytic activity/Vol] 28 U/L Normal 14-40 [facility] Comment on above: Order Comment: Speci men Type: BLOOD SPECIMEN Ordering Facility: [facility] Address: [address] [place] [address] Performed By: #### 3 016-3, , 1987-08 #### [facility] CLIA [id number] [address] [place] [address] [place] Bilirubin [Mass/Vol] 0.3 mg/dL Normal 0.2-1.3 [facility] Comment on above: Order Comment: Speci men Type: BLOOD SPECIMEN Ordering Facility: [facility] Address: [address] [place] [address] Performed By: #### 3 016-3, , 1987-08 #### [facility] CLIA [id number] [address] [place] [address] [place] Calcium [Mass/Vol] 9.2 mg/dL Normal 8.5-10.2 [facility] Comment on above: Order Comment: Speci men Type: BLOOD SPECIMEN Ordering Facility: [facility] Address: [address] [place] [address] Performed By: #### 3 016-3, , 1987-08 #### [facility] CLIA [id number] [address] [place] [address] [place] Chloride [Moles/Vol] 104 mmol/L Normal 98-107 [facility] Comment on above: Order Comment: Speci men Type: BLOOD SPECIMEN Ordering Facility: [facility] Address: [address] [place] [address] Performed By: #### 3 016-3, , 1987-08 #### [facility] CLIA [id number] [address] [place] [address] [place] CO2 [Moles/Vol] 25 mmol/L Normal 22-30 [facility] Comment on above: Order Comment: Speci men Type: BLOOD SPECIMEN Ordering Facility: [facility] Address: [address] [place] [address] Performed By: #### 3 016-3, , 1987-08 #### [facility] CLIA [id number] [address] [place] [address] [place] Creatinine [Mass/Vol] 1.13 mg/dL Normal 0.73-1.22 [facility] Comment on above: Order Comment: Speci men Type: BLOOD SPECIMEN Ordering Facility: [facility] Address: [address] [place] [address] Performed By: #### 3 016-3, 05160-3, 1987-08 #### [facility] CLIA [id number] [address] [place] [address] [place] Creatinine and Glomerular filtration rate.predicted panel (S/P/Bld) 73 mL/min/1.73m??? Normal >=60 [facility] Comment on above: Order Comment: Jimena wallace Type: BLOOD SPECIMEN Ordering Facility: [facility] Address: [address] [place] [address] Result Comment: Aneta mated Glomerular Filtration Rate [...] actual GFR. Performed By: #### 3 016-3, 80539-3, 1987-08 #### [facility] CLIA [id number] [address] [place] [address] [place] Glucose [Mass/Vol] 103 mg/dL High 74-99 [facility] Comment on above: Order Comment: Jimena wallace Type: BLOOD SPECIMEN Ordering Facility: [facility] Address: [address] [place] [address] Result Comment: The [place] Diabetes Association (ADA) provides guidance for cutoff [...] Standards of Medical Care in Diabetes 2016, [place] Diabetes Association. Diabetes Care. 2016.39(Suppl 1). Performed By: #### 3 016-3, , 1987-08 #### [facility] CLIA [id number] [address] [place] [address] [place] Potassium [Moles/Vol] 4.8 mmol/L Normal 3.7-5.1 [facility] Comment on above: Order Comment: Speci men Type: BLOOD SPECIMEN Ordering Facility: [facility] Address: [address] [place] [address] Performed By: #### 3 016-3, , 1987-08 #### [facility] CLIA [id number] [address] [place] [address] [place] Protein [Mass/Vol] 6.8 g/dL Normal 6.3-8.0 [facility] Comment on above: Order Comment: Speci men Type: BLOOD SPECIMEN Ordering Facility: [facility] Address: [address] [place] [address] Performed By: #### 3 0163, , 1987-08 #### [facility] CLIA [id number] [address] [place] [address] [place] Sodium [Moles/Vol] 142 mmol/L Normal 136-144 [facility] Comment on above: Order Comment: Speci men Type: BLOOD SPECIMEN Ordering Facility: [facility] Address: [address] [place] [address] Performed By: #### 3 016-3, , 1987-08 #### [facility] CLIA [id number] [address] [place] [address] [place] Urea nitrogen [Mass/Vol] 12 mg/dL Normal 9-24 [facility] Comment on above: Order Comment: Speci men Type: BLOOD SPECIMEN Ordering Facility: [facility] Address: [address] [place] [address] Performed By: #### 3 016-3, , 1987-08 #### [facility] CLIA [id number] [address] [place] [address] [place] ESR Westergren method (Bld) [Velocity]on 09-27-2023 ESR (Bld) [Velocity] 26 mm/h High [facility] Interpretation and review of laboratory results Abnormal [facility] ESR (Bld) [Velocity] 26 mm/h High 0-15 [facility] Comment on above: Order Comment: Speci men Type: BLOOD SPECIMEN Ordering Facility: [facility] Address: [address] [place] [address] Performed By: #### 4 537-7 #### [facility] CLIA [id number] [address] [place] [address] [place] [address] [place] Erythrocyte distribution wid th Auto (RBC) [Ratio]on 09-27-2023 Erythrocyte distribution width (RBC) [Ratio] 13.9 % 11.5-15.0 [facility] Hematocrit Auto (Bld) [Volum e fraction]on 09-27-2023 Hematocrit (Bld) [Volume fraction] 44.7 % 39.0-51.0 [facility] Hemoglobin [Mass/volume] in Bloodon 09-27-2023 Hemoglobin (Bld) [Mass/Vol] 13.9 g/dL 13.0-17.0 [facility] Laboratory - Chemistry and C hemistry - challengeon 09-27-2023 Albumin [Mass/Vol] 3.6 g/dL 3.9-4.9 [facility] ALP [Catalytic activity/Vol] 86 U/L 38-113 [facility] ALT [Catalytic activity/Vol] 35 U/L 10-54 [facility] AST [Catalytic activity/Vol] 28 U/L 14-40 [facility] Bilirubin [Mass/Vol] 0.3 mg/dL 0.2-1.3 [facility] Calcium [Mass/Vol] 9.2 mg/dL 8.5-10.2 [facility] Chloride [Moles/Vol] 104 mmol/L 98-107 [facility] CO2 [Moles/Vol] 25 mmol/L 22-30 [facility] Creatinine [Mass/Vol] 1.13 mg/dL 0.73-1.22 [facility] Glucose [Mass/Vol] 103 mg/dL 74-99 [facility] Comment on above: The [place] Diabete s Association (ADA) provides guidance for [...] Standards of Medical Care in Diabetes 2016, [place] Diabetes Association. Diabetes Care. 2016.39(Suppl 1). Potassium [Moles/Vol] 4.8 mmol/L 3.7-5.1 [facility] Sodium [Moles/Vol] 142 mmol/L 136-144 [facility] TSH Qn 0.957 m[IU]/L 0.270-4.200 [facility] Urea nitrogen [Mass/Vol] 12 mg/dL 9-24 [facility] Laboratory - Hematology and Cell countson 09-27-2023 ESR (Bld) [Velocity] 26 mm/h 0-15 [facility] Leukocytes [#/volume] correc christen for nucleated erythrocytes in Blood by Automated counon 09-27-2023 WBC corrected for nucl RBC Auto (Bld) [#/Vol] 5.35 k/uL 3.70-11.00 [facility] MCH Auto (RBC) [Entitic mass ]on 09-27-2023 MCH (RBC) [Entitic mass] 29.4 pg 26.0-34.0 [facility] MCHC Auto (RBC) [Mass/Vol]on 09-27-2023 MCHC (RBC) [Mass/Vol] 31.1 g/dL 30.5-36.0 [facility] MCV Auto (RBC) [Entitic vol] on 09-27-2023 MCV (RBC) [Entitic vol] 94.7 fL 80.0-100.0 [facility] No Panel Informationon 09-26 [facility] C-Reactive Protein, Quantitative 0.4 mg/dL <0.9 [facility] Estimated GFR (CKD-EPI) 73 mL/min/1.73m??? >=60 [facility] Comment on above: Estimated Glomerular Filtration Rate [...] GFR. Parathyroid Hormone (Intact) 135 pg/mL 15-65 [facility] Nucleated RBC Auto (Bld) [#/ Vol]on 09-27-2023 Nucleated RBC (Bld) [#/Vol] 10*3/uL <0.01 [facility] PTH INTACTon 09-27-2023 Parathyrin.intact [Mass/Vol] 135 pg/mL High 15 - 65 pg/mL [facility] PTH-Intact SerPl-mCncon 06-0 Parathyrin.intact [Mass/Vol] 135 pg/mL High 15-65 [facility] Comment on above: Order Comment: Speci men Type: BLOOD SPECIMENOrdering Facility: [facility] Address: [address] [place] [address] Performed By: #### 2 731-8 ####[facility] [id number] [place] [address] [place] Parathyrin.intact [Mass/Vol] on 09-27-2023 Interpretation and review of laboratory results Abnormal [facility] Platelet mean volume Auto (B ld) [Entitic vol]on 09-27-2023 Platelet mean volume (Bld) [Entitic vol] 9.8 fL 9.0-12.7 [facility] Platelets Auto (Bld) [#/Vol] on 09-27-2023 Platelets (Bld) [#/Vol] 196 10*3/uL 150-400 [facility] Protein [Mass/volume] in Ser um or Plasmaon 09-27-2023 Protein [Mass/Vol] 6.8 g/dL 6.3-8.0 [facility] RBC Auto (Bld) [#/Vol]on RBC (Bld) [#/Vol] 4.72 10*6/uL 4.20-6.00 [facility] Serum or plasma anion gap de terminationon 09-27-2023 Anion gap [Moles/Vol] 13 mmol/L 8-15 [facility] Serum or plasma calcidiol me asurement (mass/volume)on 09-27-2023 25-hydroxyvitamin D3 [Mass/Vol] 19.7 ng/mL 31.0-80.0 [facility] Comment on above: Classification of 25 [place] Vitamin D status: Deficiency/Insufficiency: < or = 30 ng/ml.Sufficiency/Optimal Levels: 31-80 ng/mLToxicity: > 100 ng/mL. Test performed by chemiluminescent immunoassay. THYROID STIMULATING HORMONEo n 09-27-2023 TSH Qn 0.957 m[IU]/L [facility] TSH Qnon 09-27-2023 Interpretation and review of laboratory results Normal [facility] TSH SerPl-aCncon 09-27-2023 TSH Qn 0.957 m[IU]/L Normal 0.270-4.200 [facility] Comment on above: Order Comment: Speci men Type: BLOOD SPECIMEN Ordering Facility: [facility] Address: [address] [place] [address] Performed By: #### 3 016-3, 02186-0, 1987-08 #### [facility] CLIA [id number] [address] [place] [address] [place] VITAMIN D 25 HYDROXYon 09-26 25-hydroxyvitamin D3 [Mass/Vol] 19.7 ng/mL Low 31.0 - 80.0 ng/mL [facility] Comment on above: Classification of 25 [...] This is not available at this time. [facility] Transcribe Date/Time: Oct 03 2023 3:33P Dictated by : TRENTON COX MD This examination was interpreted and the report reviewed and electronically signed by: TRENTON COX MD on Oct 03 2023 3:36PM EST [id number] Normal [facility] Alanine aminotransferase [En zymatic activity/volume] in Serum or PlasmaOrdered By: Safia Enrique on 2023 ALT [Catalytic activity/Vol] 18 U/L Normal 7-52 [facility] Comment on above: Performed By: #### E SR, CMP, CBC #### [address] Albumin [Mass/volume] in Ser um or Plasma by Bromocresol green (BCG) dye binding methoOrdered By: Safia Enrique on 2023 Albumin BCG dye [Mass/Vol] 3.8 g/dL 3.5-5.7 [facility] Alkaline phosphatase [Enzyma tic activity/volume] in Serum or PlasmaOrdered By: Safia Enrique on 2023 ALP [Catalytic activity/Vol] 72 U/L Normal 34-104 [facility] Comment on above: Result Comment: PERF ORMED BY: [place] [address] PATHOLOGIST KELLER MACHINE OPERATOR JENNIFER CALDERON M.D. Performed By: #### E SR, CMP, CBC #### [facility] [address] [place] [address] [place] Aspartate aminotransferase [ Enzymatic activity/volume] in Serum or PlasmaOrdered By: Safia Enrique on 2023 AST [Catalytic activity/Vol] 18 U/L Normal 13-39 [facility] Comment on above: Performed By: #### E SR, CMP, CBC #### [address] Automated basophil %Ordered By: Safia Enrique on 2023 Basophils/100 WBC (Bld) 0.8 % Normal . [facility] Comment on above: Performed By: #### E SR, CMP, CBC #### [address] Automated basophil countOrde red By: Safia Enrique on 2023 Basophils (Bld) [#/Vol] 0.1 10*3/uL Normal 0.0-0.2 [facility] Comment on above: Performed By: #### E SR, CMP, CBC #### [address] Automated blood monocyte cou ntOrdered By: Safia Enrique on 2023 Monocytes (Bld) [#/Vol] 0.9 10*3/uL High 0.0-0.8 [facility] Comment on above: Performed By: #### E SR, CMP, CBC #### [address] Automated eosinophil %Ordere d By: Safia Enrique on 2023 Eosinophils/100 WBC (Bld) 6.8 % Normal . [facility] Comment on above: Performed By: #### E SR, CMP, CBC #### [address] Automated eosinophil countOr dered By: Safia Enrique on 2023 Eosinophils (Bld) [#/Vol] 0.5 10*3/uL High 0.0-0.45 [facility] Comment on above: Performed By: #### E SR, CMP, CBC #### [facility] [address] Automated monocyte %Ordered By: Safia Enrique on 2023 Monocytes/100 WBC (Bld) 13.3 % Normal . [facility] Comment on above: Performed By: #### E SR, CMP, CBC #### [facility] [address] Automated neutrophil %Ordere d By: Safia Enrique on 2023 Neutrophils/100 WBC (Bld) 57.2 % Normal . [facility] Comment on above: Performed By: #### E SR, CMP, CBC #### [facility] [address] Bilirubin.total [Mass/volume ] in Serum or PlasmaOrdered By: Safia Enrique on 2023 Bilirubin [Mass/Vol] 0.4 mg/dL Normal 0.3-1.0 [facility] Comment on above: Performed By: #### E SR, CMP, CBC #### [facility] [address] [place] [address] [place] Calcium [Mass/volume] in Ser um or PlasmaOrdered By: Safia Enrique on 2023 Calcium [Mass/Vol] 9.1 mg/dL Normal 8.6-10.3 [facility] Comment on above: Performed By: #### E SR, CMP, CBC #### [facility] [address] [place] [address] [place] Carbon dioxide, total [Moles /volume] in Serum or PlasmaOrdered By: Safia Enrique on 2023 CO2 [Moles/Vol] 28.2 mmol/L Normal 21.0-31.0 [facility] Comment on above: Performed By: #### E SR, CMP, CBC #### [place] [address] [place] Chloride [Moles/volume] in S eliza or PlasmaOrdered By: Safia Enrique on 2023 Chloride [Moles/Vol] 106 mmol/L Normal 98-107 [facility] Comment on above: Performed By: #### E SR, CMP, CBC #### [facility] [address] [place] [address] Complete Blood Count Auto Di ffon 2023 Mean Corpuscular HGB Conc 32.9 g/dL Normal 32.5-35.6 [facility] Comment on above: Performed By: #### E SR, CMP, CBC #### [facility] [address] [place] [address] NRBC% 0.1 /100{WBC} Normal 0-0.5 [facility] Comment on above: Performed By: #### E SR, CMP, CBC #### [address] Comprehensive Metabolic Pane robert 2023 Albumin [Mass/Vol] 3.8 g/dL Normal 3.5-5.7 [facility] Comment on above: Performed By: #### E SR, CMP, CBC #### [address] GFR/1.73 sq M.predicted MDRD (S/P/Bld) [Vol rate/Area] 58.325 mL/min/{1.73_m2} Normal [facility] Comment on above: Performed By: #### E SR, CMP, CBC #### [address] Creatinine [Mass/volume] in Serum or PlasmaOrdered By: Safia Enrique on 2023 Creatinine [Mass/Vol] 1.37 mg/dL High 0.70-1.30 [facility] Comment on above: Performed By: #### E SR, CMP, CBC #### [facility] [address] [place] [address] Erythrocyte Sedimentation Ra alexia 2023 ESR (Bld) [Velocity] 39 mm/h High 0-19 [facility] Comment on above: Result Comment: PERF ORMED BY: [place] [address] PATHOLOGIST KELLER MACHINE OPERATOR JENNIFER CALDERON M.D. Performed By: #### E , JIMBO, CBC #### [facility] [address] Erythrocyte distribution wid th [Ratio] by Automated countOrdered By: Safia Enrique on 2023 Erythrocyte distribution width (RBC) [Ratio] 14.3 % Normal 12.0-14.8 [facility] Comment on above: Performed By: #### E SR, CMP, CBC #### [facility] [address] Erythrocyte sedimentation ra te by Photometric methodOrdered By: Safia Enrique on 2023 ESR Photometric method (Bld) [Velocity] 39 mm/hr 0-19 [facility] Erythrocytes [#/volume] in B lood by Automated countOrdered By: Safia Enrique on 2023 RBC (Bld) [#/Vol] 4.53 10*6/uL Normal 3.90-5.60 [facility] Comment on above: Performed By: #### E , JIMBO, CBC #### [facility] [address] Glucose [Mass/volume] in Ser um or PlasmaOrdered By: Safia Enrique on 2023 Glucose [Mass/Vol] 112 mg/dL High 70-100 [facility] Comment on above: ADA recommended refe rence rangeRandom Glucose Reference Range is dependent on time and content of last meal. Glucose of more than 200 mg/dL in a nonstressed, ambulatory subject supports the diagnosis of Diabetes Mellitus. Result Comment: [place] Glucose Reference Range is dependent on time and content of last meal. Glucose of more than 200 mg/dL in a nonstressed, ambulatory subject supports the diagnosis of Diabetes Mellitus. ADA recommended reference range Performed By: #### E SR, CMP, CBC #### [facility] [address] Hematocrit [Volume Fraction] of Blood by Automated countOrdered By: Safia Enrique on 2023 Hematocrit (Bld) [Volume fraction] 42.0 % Normal 38.8-50.0 [facility] Comment on above: Performed By: #### E SR, CMP, CBC #### [address] Hemoglobin [Mass/volume] in BloodOrdered By: Safia Enrique on 2023 Hemoglobin (Bld) [Mass/Vol] 13.8 g/dL Normal 13.0-17.0 [facility] Comment on above: Performed By: #### E SR, CMP, CBC #### [address] Leukocytes [#/volume] correc christen for nucleated erythrocytes in Blood by Automated counOrdered By: Safia Enrique on 2023 WBC corrected for nucl RBC Auto (Bld) [#/Vol] 6.7 10*3/uL 4.1-10.5 [facility] Leukocytes [#/volume] in Blo od by Automated countOrdered By: Safia Enrique on 2023 WBC (Bld) [#/Vol] 6.7 10*3/uL Normal 4.1-10.5 [facility] Comment on above: Performed By: #### E SR, CMP, CBC #### [address] Lymphocytes [#/volume] in Bl ood by Automated countOrdered By: Safia Enrique on 2023 Lymphocytes (Bld) [#/Vol] 1.5 10*3/uL Normal 1.00-4.8 [facility] Comment on above: Performed By: #### E SR, CMP, CBC #### [place] [address] [place] Lymphocytes/100 leukocytes i n Blood by Automated countOrdered By: Safia Enrique on 2023 Lymphocytes/100 WBC (Bld) 21.9 % Normal . [facility] Comment on above: Performed By: #### E SR, CMP, CBC #### [place] [address] [place] MCH [Entitic mass] by Automa christen countOrdered By: Safia Enrique on 2023 MCH (RBC) [Entitic mass] 30.5 pg Normal 27.5-35.2 [facility] Comment on above: Performed By: #### E SR, CMP, CBC #### [facility] [address] [place] [address] MCHC Auto (RBC) [Mass/Vol]Or dered By: Safia Enrique on 2023 MCHC (RBC) [Mass/Vol] 32.9 g/dL 32.5-35.6 [facility] MCV [Entitic volume] by Auto mated countOrdered By: Safia Enrique on 2023 MCV (RBC) [Entitic vol] 92.7 fL Normal 83.5-101 [facility] Comment on above: Performed By: #### E SR, CMP, CBC #### [facility] [address] [place] [address] Neutrophils [#/volume] in Bl ood by Automated countOrdered By: Safia Enrique on 2023 Neutrophils (Bld) [#/Vol] 3.8 10*3/uL Normal 1.8-7.7 [facility] Comment on above: Performed By: #### E SR, CMP, CBC #### [facility] [address] [place] [address] No Panel InformationOrdered By: Safia Enrique on 2023 Estimated GFR (CKD-EPI) 58.325 mL/Min [facility] Creatinine Clearance (Chem N/A [facility] Nucleated erythrocytes [Pres ence] in Blood by Automated countOrdered By: Safia Enrique on 2023 Nucleated RBC Auto Ql (Bld) 0.1 /100{WBC} 0-0.5 [facility] Platelet mean volume [Entiti c volume] in Blood by Automated countOrdered By: Safia Enrique on 2023 Platelet mean volume (Bld) [Entitic vol] 8.8 fL Normal 6.6-10.1 [facility] Comment on above: Performed By: #### E SR, CMP, CBC #### [facility] [address] Platelets [#/volume] in Bloo d by Automated countOrdered By: Safia Enrique on 2023 Platelets (Bld) [#/Vol] 224 10*3/uL Normal 150-450 [facility] Comment on above: Performed By: #### E SR, CMP, CBC #### [address] Potassium [Moles/volume] in Serum or PlasmaOrdered By: Safia Enrique on 2023 Potassium [Moles/Vol] 4.8 mmol/L Normal 3.5-5.1 [facility] Comment on above: Performed By: #### E SR, CMP, CBC #### [address] Protein [Mass/volume] in Ser um or PlasmaOrdered By: Safia Enrique on 2023 Protein [Mass/Vol] 6.6 g/dL Normal 6.4-8.9 [facility] Comment on above: Performed By: #### E SR, CMP, CBC #### [address] Serum globulin measurement b y calculation (mass/volume)Ordered By: Safia Enrique on 2023 Globulin (S) [Mass/Vol] 2.8 g/dL [facility] Comment on above: Performed By: #### E SR, CMP, CBC #### [address] Serum or plasma albumin/glob ulin mass ratioOrdered By: Safia Enrique on 2023 Albumin/Globulin [Mass ratio] 1.4 {ratio} [facility] Comment on above: Performed By: #### E SR, CMP, CBC #### [address] Serum or plasma anion gap de terminationOrdered By: Safia Enrique on 2023 Anion gap [Moles/Vol] 12.6 mmol/L Normal 6.0-15.0 [facility] Comment on above: Performed By: #### E JIMBO DAY, CBC #### [facility] [address] Sodium [Moles/volume] in Ser um or PlasmaOrdered By: Safia Enrique on 2023 Sodium [Moles/Vol] 142 mmol/L Normal 136-145 [facility] Comment on above: Performed By: #### E JIMBO DAY, CBC #### [facility] [address] Urea nitrogen [Mass/volume] in Serum or PlasmaOrdered By: Safia Enrique on 2023 Urea nitrogen [Mass/Vol] 20 mg/dL Normal 7-25 [facility] Comment on above: Performed By: #### E JIMBO DAY, CBC #### [facility] [address] Lab Reportson 08-14-2023 Lab Reports [id number] Normal [facility] No Panel Informationon 08-01 Prostate Specific Antigen Total 1.08 ng/mL <=4.00 [facility] Patient Educationon 07-16-19 Patient Education Urology Erectile [...] these instructions at home: Medicines ? Take [id number] and prescription medicines only as told by [...] include cig (more content not included)... Normal [facility] Urology Office/Clinic Noteon 07-16-2023 Urology Office/Clinic Note [...] Information RIZWAN MUNIZ, Driss Rodríguez, URL [address] [place], [place] [id number]- Additional Instructions: 1 year Patient Education Erectile [...] vertebra (02/16/2014 (more content not included)... Normal [facility] Comment on above: Result Comment: Elec tronically Signed By: Jerrod BELL MD\.br\Date and Time Signed: 07/16/23 10:42 EDT\.br\Electronically Co-Signed By: Haylee Gutierres.br\Date and Time Co-Signed: 07/16/23 10:40 EDT CNPNon 05-18-2023 CNPN Telephone (HEMASA) ELENA FELIX ([id number]) 1960 Date Time Provider Department 05/18/23 TIFFANY [...] Status:Closed by PANFILO CARRANZA on 05/18/23 Normal [facility] CBC W Auto Differential pane l (Bld)on 05-16-2023 Basophils (Bld) [#/Vol] 0.05 10*3/uL Normal <0.11 [facility] Comment on above: Order Comment: Speci men Type: URINE SPECIMEN Ordering Facility: [facility] Address: [address] [place] [address] Performed By: #### U CALCD, 2956-1 #### [facility] CLIA [id number] [address] [place] [address] [place] #### UCRD #### [facility] CLIA [id number] [address] [place] [address] [place] [facility] CLIA [id number] [address] [place], [place] [id number] Basophils/100 WBC (Bld) 1.0 % Normal [facility] Comment on above: Order Comment: Speci men Type: URINE SPECIMEN Ordering Facility: [facility] Address: [address] [place] [address] Performed By: #### U CALCD, 2955- #### [facility] CLIA [id number] [address] [place] [address] [place] #### UCRD #### [facility] CLIA [id number] [address] [place] [address] [place] [facility] CLIA [id number] [address] [place] [address] Differential cell count method Nom (Bld) Auto Normal [facility] Comment on above: Order Comment: Speci men Type: URINE SPECIMEN Ordering Facility: [facility] Address: [address] [place] [address] Performed By: #### U CALCD, 2955-04 #### [facility] CLIA [id number] [address] [place] [address] [place] #### UCRD #### [facility] CLIA [id number] [address] [place] [address] [place] [facility] CLIA [id number] [address] [place], [place] [address] Eosinophils (Bld) [#/Vol] 0.29 10*3/uL Normal <0.46 [facility] Comment on above: Order Comment: Speci men Type: URINE SPECIMEN Ordering Facility: [facility] Address: [address] [place] [address] Performed By: #### U CALCD, 2955- #### [facility] CLIA [id number] [address] [place] [address] [place] #### UCRD #### [facility] CLIA [id number] [address] [place] [id number] [place] STATES OF PER [facility] CLIA [id number] [address] [place] [address] Eosinophils/100 WBC (Bld) 5.5 % Normal [facility] Comment on above: Order Comment: Speci men Type: URINE SPECIMEN Ordering Facility: [facility] Address: [address] [place] [address] Performed By: #### U CALCD, 295- #### [facility] CLIA [id number] [address] [place] [address] [place] #### UCRD #### [facility] CLIA [id number] [address] [place] [address] [place] [facility] CLIA [id number] [address] [place] [address] Erythrocyte distribution width (RBC) [Ratio] 15.7 % High 11.5-15.0 [facility] Comment on above: Order Comment: Speci men Type: URINE SPECIMEN Ordering Facility: [facility] Address: [address] [place] [address] Performed By: #### U CALCD, 2955- #### [facility] CLIA [id number] [address] [place] [address] [place] #### UCRD #### [facility] CLIA [id number] [address] [place], [place] [address] [place] [facility] CLIA [id number] [address] [place] [address] Hematocrit (Bld) [Volume fraction] 41.4 % Normal 39.0-51.0 [facility] Comment on above: Order Comment: Speci men Type: URINE SPECIMEN Ordering Facility: [facility] Address: [address] [place] [address] Performed By: #### U CALCD, 295- #### [facility] CLIA [id number] [address] [place] [address] [place] #### UCRD #### [facility] CLIA [id number] [address] [place] [address] [place] [facility] CLIA [id number] [address] [place] [address]6560 Hemoglobin (Bld) [Mass/Vol] 12.8 g/dL Low 13.0-17.0 [facility] Comment on above: Order Comment: Speci men Type: URINE SPECIMEN Ordering Facility: [facility] Address: [address] [place] [address] Performed By: #### U CALCD, 295- #### [facility] CLIA [id number] [address] [place] [address] [place] #### UCRD #### [facility] CLIA [id number] [address] [place] [address] [place] [facility] CLIA [id number] [address] [place] [address] Immature granulocytes (Bld) [#/Vol] 10*3/uL Normal <0.10 [facility] Comment on above: Order Comment: Speci men Type: URINE SPECIMEN Ordering Facility: [facility] Address: [address] [place] [address] Performed By: #### U CALCD, 2956- #### [facility] CLIA [id number] [address] [place] [address] [place] #### UCRD #### [facility] CLIA [id number] [address] [place] [address] [place] [facility] CLIA [id number] [address] [place], [place] [id number] Immature granulocytes/100 WBC (Bld) 0.4 % Normal [facility] Comment on above: Order Comment: Speci men Type: URINE SPECIMEN Ordering Facility: [facility] Address: [address] [facility] [place] [id number] Performed By: #### U CALCD, 2955- #### [facility] CLIA [id number] [address] [place] [address] [place] #### UCRD #### [facility] CLIA [id number] [address] [place] [address] [place] [facility] CLIA [id number] [address] [place] [address]52 Lymphocytes (Bld) [#/Vol] 1.20 10*3/uL Normal 1.00-4.00 [facility] Comment on above: Order Comment: Speci men Type: URINE SPECIMEN Ordering Facility: [facility] Address: [address] [place] [address] Performed By: #### U CALCD, 2955- #### [facility] CLIA [id number] [address] [place] [address] [place] #### UCRD #### [facility] CLIA [id number] [address] [place] [address] [place] [facility] CLIA [id number] [address] [place] [address] 24671 Lymphocytes/100 WBC (Bld) 22.9 % Normal [facility] Comment on above: Order Comment: Speci men Type: URINE SPECIMEN Ordering Facility: [facility] Address: [address] [facility] [place] [id number] Performed By: #### U CALCD, 2955- #### [facility] CLIA [id number] [address] [place] [address] [place] #### UCRD #### [facility] CLIA [id number] [address] STATES OF PER [facility] CLIA [id number] [address] [place] [address] MCH (RBC) [Entitic mass] 29.4 pg Normal 26.0-34.0 [facility] Comment on above: Order Comment: Speci men Type: URINE SPECIMEN Ordering Facility: [facility] Address: [address] [place] [address] Performed By: #### U CALCD, 2955- #### [facility] CLIA [id number] [address] [place] [address] [place] #### UCRD #### [facility] CLIA [id number] [address] [place] [address] [place] [facility] CLIA [id number] [address] [place] [address] 19463 MCHC (RBC) [Mass/Vol] 30.9 g/dL Normal 30.5-36.0 [facility] Comment on above: Order Comment: Speci men Type: URINE SPECIMEN Ordering Facility: [facility] Address: [address] [place] [address] Performed By: #### U CALCD, 2955- #### [facility] CLIA [id number] [address] [place] [address] [place] #### UCRD #### [facility] CLIA [id number] [address] [place] [address] [place] [facility] CLIA [id number] [address] [place] [address] 42823 MCV (RBC) [Entitic vol] 95.0 fL Normal 80.0-100.0 [facility] Comment on above: Order Comment: Speci men Type: URINE SPECIMEN Ordering Facility: [facility] Address: [address] [place] [address] Performed By: #### U CALCD, 2955- #### [facility] CLIA [id number] [address] [place] [address] [place] #### UCRD #### [facility] CLIA [id number] [address] [place] [address] [place] [facility] CLIA [id number] [address] [place] [address] 55542 Monocytes (Bld) [#/Vol] 0.36 10*3/uL Normal <0.87 [facility] Comment on above: Order Comment: Speci men Type: URINE SPECIMEN Ordering Facility: [facility] Address: [address] [place] [address] Performed By: #### U ELENA, 2956-1 #### [facility] CLIA [id number] [address] [place] [address] [place] #### UCRD #### [facility] CLIA [id number] [address] [place] [address] [place] [facility] CLIA [id number] [address] [place] [address] 12787 Monocytes/100 WBC (Bld) 6.9 % Normal [facility] Comment on above: Order Comment: Speci men Type: URINE SPECIMEN Ordering Facility: [facility] Address: [address] [place], [place] [address] Performed By: #### U CALCD, 2956- #### [facility] CLIA [id number] [address] [place] [address] [place] #### UCRD #### [facility] CLIA [id number] [address] [place] [address] [place] [facility] CLIA [id number] [address] [place] [address] 11705 Neutrophils (Bld) [#/Vol] 3.31 10*3/uL Normal 1.45-7.50 [facility] Comment on above: Order Comment: Speci men Type: URINE SPECIMEN Ordering Facility: [facility] Address: [address] [place] [id number] Performed By: #### U CALCD, 2955- #### [facility] CLIA [id number] [address] [place], [place] [id number] [place] #### UCRD #### [facility] CLIA [id number] [address] [place], [place] [address] [place] [facility] CLIA [id number] [address] [place] [address] 67145 Neutrophils/100 WBC (Bld) 63.3 % Normal [facility] Comment on above: Order Comment: Speci men Type: URINE SPECIMEN Ordering Facility: [facility] Address: [address] [place] [id number] Performed By: #### U CALCD, 2955- #### [facility] CLIA [id number] [address] [place] [address] [place] #### UCRD #### [facility] CLIA [id number] [address] [place] [address] [place] [facility] CLIA [id number] [address] [place] [address] 28552 Nucleated RBC (Bld) [#/Vol] 10*3/uL Normal <0.01 [facility] Comment on above: Order Comment: Speci men Type: URINE SPECIMEN Ordering Facility: [facility] Address: [address] [place] [address] Performed By: #### U CALCD, 2955- #### [facility] CLIA [id number] [address] [place], [place] [address] [place] #### UCRD #### [facility] CLIA [id number] [address] [place] [address] [place] [facility] CLIA [id number] [address] [place] [address] 29591 Nucleated RBC/100 WBC (Bld) [Ratio] 0.0 /100 WBC Normal [facility] Comment on above: Order Comment: Speci men Type: URINE SPECIMEN Ordering Facility: [facility] Address: [address] [place] [address] Performed By: #### U CALCD, 2955- #### [facility] CLIA [id number] [address] [place] [address] [place] #### UCRD #### [facility] CLIA [id number] [address] [place] [address] OF [facility] CLIA [id number] [address] [place] [address] 71491 Platelet mean volume (Bld) [Entitic vol] 9.5 fL Normal 9.0-12.7 [facility] Comment on above: Order Comment: Speci men Type: URINE SPECIMEN Ordering Facility: [facility] Address: [address] [place] [address] Performed By: #### U CALCD, 2955- #### [facility] CLIA [id number] [address] [place] [address] [place] #### UCRD #### [facility] CLIA [id number] [address] [place] [address] STATES [place] PER [facility] CLIA [id number] [address] [place] [address] 83786 Platelets (Bld) [#/Vol] 233 10*3/uL Normal 150-400 [facility] Comment on above: Order Comment: Speci men Type: URINE SPECIMEN Ordering Facility: [facility] Address: [address] [place] [id number] Performed By: #### U CALCD, 2955- #### [facility] CLIA [id number] [address] [place] [address] [place] #### UCRD #### [facility] CLIA [id number] [address] [place] [address] [place] [facility] CLIA [id number] [address] [place] [address] 19809 RBC (Bld) [#/Vol] 4.36 10*6/uL Normal 4.20-6.00 [facility] Comment on above: Order Comment: Speci men Type: URINE SPECIMEN Ordering Facility: [facility] Address: [address] [place] [address] Performed By: #### U CALCD, 2956-1 #### [facility] CLIA [id number] [address] [place] [address] [place] #### UCRD #### [facility] CLIA [id number] [address] [place] [address] [place] [facility] CLIA [id number] [address] [place] [address] WBC (Bld) [#/Vol] 5.23 10*3/uL Normal 3.70-11.00 [facility] Comment on above: Order Comment: Speci men Type: URINE SPECIMEN Ordering Facility: [facility] Address: [address] [place] [address] Performed By: #### U CALCD, 2956- #### [facility] CLIA [id number] [address] [place] [address] [place] #### UCRD #### [facility] CLIA [id number] [address] [place] [address] [place] [facility] CLIA [id number] [address] [place] [address] 46149 CNOVSPon 05-16-2023 CNOVSP Visit (SP) Office ([facility]) ELENA FELIX ([id number]) 1960 M Date Time Provider Department 05/16/23 11:00 AM TIFFANY PETERSON During your visit today, we recorded the following information about you: Temperature Pulse Respiration Blood pressure 97.6 degrees 101/minute 18/minute 113/66 Weight Height 131.4 kg 1.88 m Tiffany Peterson PA-C 05/16/2023 12:16 PM Signed PATIENT NAME: Elena Felix CLINIC NO.: [id number] ATTENDING PHYSICIAN: Merly Marti MD DATE OF [...] PAST MEDICAL HISTORY Diagnosis Date Ankylosing spondylitis ([facility]) Dr Hodges Ankylosing spondylitis ([facility]) Arthritis Back pain Cardiomyopathy ([facility]) Nonischemic Congestive Cerebrovascular small vessel disease 08/24/2016 On ASA DVT (deep venous thrombosis) ([facility]) Esophageal reflux Former smoker Kidney stones Major depressive disorder with single episode, in remission ([facility]) 08/24/2016 Morbid obesity with BMI of 40.0-44.9, adult ([facility]) Neuropathy Obstructive sleep apnea syndrome, severe On [...] Range Status 05/16/2023 6.9 % Final Abs [place] Date Value Ref Range Status 05/16/2023 0.36 <0.87 k/uL Final Eosinophils % Date Value Ref Range Status (more content not included)... Normal [facility] Ferritin SerPl-mCncon 2023 Ferritin [Mass/Vol] 170.0 ng/mL Normal 30.3-565.7 [facility] Comment on above: Order Comment: Speci men Type: BLOOD SPECIMEN Ordering Facility: [facility] Address: [address] [place] [address] Performed By: #### 5 7021-8 #### [facility] CLIA [id number] [address] [place] [address]1077 IMMUNOFIXATION SCREEN, SERUM on 05-16-2023 MPA RESULT No M protein is identified. Normal No M protein is identified. [facility] Comment on above: Order Comment: Speci men Type: BLOOD SPECIMEN Ordering Facility: [facility] Address: [address] [place] [address] Performed By: #### 5 7021-8 #### [facility] CLIA [id number] [address] [place] [address]164 STAFF REVIEW ([facility]) Reviewed by Shelly flores M.D. Normal [facility] Comment on above: Order Comment: Speci men Type: BLOOD SPECIMEN Ordering Facility: [facility] Address: [address] [place] [address] Performed By: #### 5 7021-8 #### [facility] CLIA [id number] [address] [place] [address] 23510 IMMUNOGLOBULINS GAMon 2023 IgA [Mass/Vol] 165 mg/dL Normal 70-400 [facility] Comment on above: Order Comment: Speci men Type: BLOOD SPECIMEN Ordering Facility: [facility] Address: [address] [place] [address] Performed By: #### 5 7021-8 #### [facility] CLIA [id number] [address] [place] [address] 20662 IgG [Mass/Vol] 888 mg/dL Normal 700-1600 [facility] Comment on above: Order Comment: Speci men Type: BLOOD SPECIMEN Ordering Facility: [facility] Address: [address] [place] [address] Performed By: #### 5 7021-8 #### [facility] CLIA [id number] [address] [place] [address] 86683 IgM [Mass/Vol] 34 mg/dL Low 40-230 [facility] Comment on above: Order Comment: Speci men Type: BLOOD SPECIMEN Ordering Facility: [facility] Address: [address] [place] [address] Performed By: #### 5 7021-8 #### [facility] CLIA [id number] [address] [place] [address] 78417 Iron and Iron binding capaci ty panelon 05-16-2023 Iron [Mass/Vol] 150 ug/dL Normal 41-186 [facility] Comment on above: Order Comment: Speci men Type: BLOOD SPECIMEN Ordering Facility: [facility] Address: [address] [place] [address] Performed By: #### S QBTESTM, 2731-8 #### [facility] CLIA [id number] [address] [place] [address] [place] Iron binding capacity [Mass/Vol] 291 ug/dL Normal 232-386 [facility] Comment on above: Order Comment: Speci men Type: BLOOD SPECIMEN Ordering Facility: [facility] Address: [address] [place] [address] Performed By: #### S QBTESTM, 273-8 #### [facility] CLIA [id number] [address] [place] [address] [place] Iron/TIBC [Molar ratio] 51.5 % Normal 15.0-57.0 [facility] Comment on above: Order Comment: Speci men Type: BLOOD SPECIMEN Ordering Facility: [facility] Address: [address] [place] [address] Performed By: #### S QBTESTM, 2730-8 #### [facility] CLIA [id number] [address] [place] [address] [place] KAPPA/KEANE,FREE,SERon 2023 Immunoglobulin light chains.kappa.free (S) [Mass/Vol] 38.0 mg/L High 3.3-19.4 [facility] Comment on above: Order Comment: Speci men Type: URINE SPECIMEN Ordering Facility: [facility] Address: [address] [place] [address] Result Comment: Rare ly, increased serum free light chains levels may not be detected or accurately quantified due to prozone phenomenon or in high viscosity samples using this immunoturbidimetric assay. Correlation with other laboratory results and clinical findings is recommended. The [place] Free Light Chain was performed using the Binding Site Optilite immunoturbidimetric method. Result obtained with different assay methods or kits cannot be used interchangeably. Performed By: #### U CALCD, 2956-1 #### [facility] CLIA [id number] [address] [place] [address] [place] #### UCRD #### [facility] CLIA [id number] [address] [place] [address] LAB CLIA [id number] [address] [place] [address] 83169 Immunoglobulin light chains.kappa/Immunogl obulin light chains.lambda (S) [Mass ratio] 2.26 High 0.26-1.65 [facility] Comment on above: Order Comment: Speci men Type: URINE SPECIMEN Ordering Facility: [facility] Address: [address] [place] [address] Performed By: #### U CALCD, 2955- #### [facility] CLIA [id number] [address] [place] [address] STATES [place] PER #### UCRD #### [facility] CLIA [id number] [address] [place] [address] LAB CLIA [id number] [address] [place] [address] 29909 Immunoglobulin light chains.lambda.free [Mass/Vol] 16.8 mg/L Normal 5.7-26.3 [facility] Comment on above: Order Comment: Speci men Type: URINE SPECIMEN Ordering Facility: [facility] Address: [address] [place] [address] Result Comment: Rare ly, increased serum free [...] Performed By: #### U CALCD, 2955- #### [facility] CLIA [id number] [address] [place] [address] [place] #### UCRD #### [facility] CLIA [id number] [address] [place] [address] STATES OF PER [facility] CLIA [id number] [address] [place] [id number] PROTEIN ELECTROPHORESIS SERU M (P)on 05-16-2023 Albumin [Mass/Vol] 3.66 g/dL Normal 3.43-5.41 [facility] Comment on above: Order Comment: Speci men Type: URINE SPECIMEN Ordering Facility: [facility] Address: [address] [place] [address] Performed By: #### U CALCD, 2956-1 #### [facility] CLIA [id number] [address] [place] [address] [place] #### UCRD #### [facility] CLIA [id number] [address] [place] [address] [place] [facility] CLIA [id number] [address] [place], [place] [id number] Alpha 1 globulin Elph [Mass/Vol] 0.43 g/dL Normal 0.18-0.43 [facility] Comment on above: Order Comment: Speci men Type: URINE SPECIMEN Ordering Facility: [facility] Address: [address] [place] [address] Performed By: #### U CALCD, 2956-1 #### [facility] CLIA [id number] [address] [place] [address] [place] #### UCRD #### [facility] CLIA [id number] [address] [place] [address] STATES OF PER [facility] CLIA [id number] [address] [place] [address] Alpha 2 globulin Elph [Mass/Vol] 1.02 g/dL High 0.42-0.98 [facility] Comment on above: Order Comment: Speci men Type: URINE SPECIMEN Ordering Facility: [facility] Address: [address] [id number] Performed By: #### U CALCD, 2956- #### [facility] CLIA [id number] [address] [place] [address] [place] #### UCRD #### [facility] CLIA [id number] [address] [place] [address] [place] [facility] CLIA [id number] [address] [place] [address] Beta globulin Elph [Mass/Vol] 0.84 g/dL Normal 0.61-1.17 [facility] Comment on above: Order Comment: Speci men Type: URINE SPECIMEN Ordering Facility: [facility] Address: [address] [place] [address] Performed By: #### U CALCD, 2955- #### [facility] CLIA [id number] [address] [place] [address] [place] #### UCRD #### [facility] CLIA [id number] [address] [place] [address] [place] [facility] CLIA [id number] [address] [place] [address] Gamma globulin Elph [Mass/Vol] 0.85 g/dL Normal 0.53-1.51 [facility] Comment on above: Order Comment: Speci men Type: URINE SPECIMEN Ordering Facility: [facility] Address: [address] [place] [address] Performed By: #### U CALCD, 2956- #### [facility] CLIA [id number] [address] [place] [address] [place] #### UCRD #### [facility] CLIA [id number] [address] [place] [address] [place] [facility] CLIA [id number] [address] [place] [address] M-PROTEIN LOCATION Normal [facility] Comment on above: Order Comment: Speci men Type: URINE SPECIMEN Ordering Facility: [facility] Address: [address] [place] [address] Result Comment: Not Applicable. Performed By: #### U CALCD, 6- #### [facility] CLIA [id number] [address] [place] [address] [place] #### UCRD #### [facility] CLIA [id number] [address] [place] [address] OF PER [facility] CLIA [id number] [address] [place] [address] Protein Fractions [Interp] No definitive M protein is identified on protein electrophoresis. Normal No definitive M protein is identified on protein electrophor esis. [facility] Comment on above: Order Comment: Speci men Type: URINE SPECIMEN Ordering Facility: [facility] Address: [address] [place] [address] Performed By: #### U CALCD, 2955- #### [facility] CLIA [id number] [address] [place] [address] [place] #### UCRD #### [facility] CLIA [id number] [address] [place] [address] [place] [facility] CLIA [id number] [address] [place] [address] Protein.monoclonal Elph [Mass/Vol] 0.00 g/dL Normal <=0.00 [facility] Comment on above: Order Comment: Speci men Type: URINE SPECIMEN Ordering Facility: [facility] Address: [address] [place] [address] Performed By: #### U CALCD, 2955- #### [facility] CLIA [id number] [address] [place] [address] [place] #### UCRD #### [facility] CLIA [id number] [address] [place] [address] OF [facility] CLIA [id number] [address] [place] [id number] SPE STAFF REVIEW Reviewed by Shelly flores M.D. Normal [facility] Comment on above: Order Comment: Speci men Type: URINE SPECIMEN Ordering Facility: [facility] Address: [address] [place] [address] Performed By: #### U CALCD, 2956-1 #### [facility] CLIA [id number] [address] [place] [address] [place] #### UCRD #### [facility] CLIA [id number] [address] [place] [address] [place] [facility] CLIA [id number] [address] [place], [place] [id number] Prot SerPl-mCncon 05-16-2023 Protein [Mass/Vol] 6.8 g/dL Normal 6.3-8.0 [facility] Comment on above: Order Comment: Speci men Type: BLOOD SPECIMEN Ordering Facility: [facility] Address: [address] [place] [address] Performed By: #### S QBTESTM, 2731-8 #### [facility] CLIA [id number] [address] [place] [address] [place] Alanine aminotransferase [En zymatic activity/volume] in Serum or PlasmaOrdered By: Brad Hodges on 05-03-2023 ALT [Catalytic activity/Vol] 18 U/L 7-52 [facility] Albumin [Mass/volume] in Ser um or Plasma by Bromocresol green (BCG) dye binding methoOrdered By: Brad Hodges on 05-03-2023 Albumin BCG dye [Mass/Vol] 3.6 g/dL 3.5-5.7 [facility] Alkaline phosphatase [Enzyma tic activity/volume] in Serum or PlasmaOrdered By: Brad Hodges on 05-03-2023 ALP [Catalytic activity/Vol] 66 U/L 34-104 [facility] Aspartate aminotransferase [ Enzymatic activity/volume] in Serum or PlasmaOrdered By: Brad Hodges on 05-03-2023 AST [Catalytic activity/Vol] 16 U/L 13-39 [facility] Basophils Auto (Bld) [#/Vol] Ordered By: Brad Hodges on 05-03-2023 Basophils (Bld) [#/Vol] 0.0 10*3/uL 0.0-0.2 [facility] Basophils/100 WBC Auto (Bld) Ordered By: Brad Hodges on 05-03-2023 Basophils/100 WBC (Bld) 0.9 % . [facility] Bilirubin.total [Mass/volume ] in Serum or PlasmaOrdered By: Brad Hodges on 05-03-2023 Bilirubin [Mass/Vol] 0.4 mg/dL 0.3-1.0 [facility] Calcium [Mass/volume] in Ser um or PlasmaOrdered By: Brad Hodges on 05-03-2023 Calcium [Mass/Vol] 9.1 mg/dL 8.6-10.3 [facility] Carbon dioxide, total [Moles /volume] in Serum or PlasmaOrdered By: Brad Hodges on 05-03-2023 CO2 [Moles/Vol] 29.5 mmol/L 21.0-31.0 [facility] Chloride [Moles/volume] in S eliza or PlasmaOrdered By: Brad Hodges on 05-03-2023 Chloride [Moles/Vol] 107 mmol/L 98-107 [facility] Creatinine [Mass/volume] in Serum or PlasmaOrdered By: Brad Hodges on 05-03-2023 Creatinine [Mass/Vol] 1.33 mg/dL 0.70-1.30 [facility] Eosinophils Auto (Bld) [#/Vo l]Ordered By: Brad Hodges on 05-03-2023 Eosinophils (Bld) [#/Vol] 0.3 10*3/uL 0.0-0.45 [facility] Eosinophils/100 WBC Auto (Bl d)Ordered By: Brad Hodges on 05-03-2023 Eosinophils/100 WBC (Bld) 6.6 % . [facility] Erythrocyte distribution wid th Auto (RBC) [Ratio]Ordered By: Brad Hodges on 05-03-2023 Erythrocyte distribution width (RBC) [Ratio] 15.9 % 12.0-14.8 [facility] Erythrocyte sedimentation ra te by Photometric methodOrdered By: Brad Hodges on 05-03-2023 ESR Photometric method (Bld) [Velocity] 35 mm/hr 0-19 [facility] Globulin Calc (S) [Mass/Vol] Ordered By: Brad Hodges on 05-03-2023 Globulin (S) [Mass/Vol] 2.6 g/dL [facility] Glucose [Mass/volume] in Ser um or PlasmaOrdered By: Brad Hodges on 05-03-2023 Glucose [Mass/Vol] 122 mg/dL 70-100 [facility] Comment on above: ADA recommended refe rence rangeRandom Glucose Reference Range is dependent on time and content of last meal. Glucose of more than 200 mg/dL in a nonstressed, ambulatory subject supports the diagnosis of Diabetes Mellitus. Hematocrit Auto (Bld) [Volum e fraction]Ordered By: Brad Hodges on 05-03-2023 Hematocrit (Bld) [Volume fraction] 38.5 % 38.8-50.0 [facility] Hemoglobin [Mass/volume] in BloodOrdered By: Brad Hodges on 05-03-2023 Hemoglobin (Bld) [Mass/Vol] 12.3 g/dL 13.0-17.0 [facility] Leukocytes [#/volume] correc christen for nucleated erythrocytes in Blood by Automated counOrdered By: Brad Hodges on 05-03-2023 WBC corrected for nucl RBC Auto (Bld) [#/Vol] 4.8 10*3/uL 4.1-10.5 [facility] Lymphocytes Auto (Bld) [#/Vo l]Ordered By: Brad Hodges on 05-03-2023 Lymphocytes (Bld) [#/Vol] 1.2 10*3/uL 1.00-4.8 [facility] Lymphocytes/100 WBC Auto (Bl d)Ordered By: Brad Hodges on 05-03-2023 Lymphocytes/100 WBC (Bld) 25.4 % . [facility] MCH Auto (RBC) [Entitic mass ]Ordered By: Brad Hodges on 05-03-2023 MCH (RBC) [Entitic mass] 29.5 pg 27.5-35.2 [facility] MCHC Auto (RBC) [Mass/Vol]Or dered By: Brad Hodges on 05-03-2023 MCHC (RBC) [Mass/Vol] 32.0 g/dL 32.5-35.6 [facility] MCV Auto (RBC) [Entitic vol] Ordered By: Brad Hodges on 05-03-2023 MCV (RBC) [Entitic vol] 92.1 fL 83.5-101 [facility] Monocytes Auto (Bld) [#/Vol] Ordered By: Brad Hodges on 05-03-2023 Monocytes (Bld) [#/Vol] 0.2 10*3/uL 0.0-0.8 [facility] Monocytes/100 WBC Auto (Bld) Ordered By: Brad Hodges on 05-03-2023 Monocytes/100 WBC (Bld) 4.3 % . [facility] Neutrophils Auto (Bld) [#/Vo l]Ordered By: Brad Hodges on 05-03-2023 Neutrophils (Bld) [#/Vol] 3.0 10*3/uL 1.8-7.7 [facility] Neutrophils/100 WBC Auto (Bl d)Ordered By: Brad Hodges on 05-03-2023 Neutrophils/100 WBC (Bld) 62.8 % . [facility] No Panel InformationOrdered By: Brad Hodges on 05-03-2023 Estimated GFR (CKD-EPI) > 60.0 mL/Min [facility] Creatinine Clearance (Chem N/A [facility] Nucleated erythrocytes [Pres ence] in Blood by Automated countOrdered By: Brad Hodges on 05-03-2023 Nucleated RBC Auto Ql (Bld) 0.1 /100{WBC} 0-0.5 [facility] Platelet mean volume Auto (B ld) [Entitic vol]Ordered By: Brad Hodges on 05-03-2023 Platelet mean volume (Bld) [Entitic vol] 8.2 fL 6.6-10.1 [facility] Platelets Auto (Bld) [#/Vol] Ordered By: Brad Hodges on 05-03-2023 Platelets (Bld) [#/Vol] 249 10*3/uL 150-450 [facility] Potassium [Moles/volume] in Serum or PlasmaOrdered By: Brad oHdges on 05-03-2023 Potassium [Moles/Vol] 4.6 mmol/L 3.5-5.1 [facility] Protein [Mass/volume] in Ser um or PlasmaOrdered By: Brad Hodges on 05-03-2023 Protein [Mass/Vol] 6.2 g/dL 6.4-8.9 [facility] RBC Auto (Bld) [#/Vol]Ordere d By: Brad Hodges on 05-03-2023 RBC (Bld) [#/Vol] 4.17 10*6/uL 3.90-5.60 [facility] Serum or plasma albumin/glob ulin mass ratioOrdered By: Brad Hodges on 05-03-2023 Albumin/Globulin [Mass ratio] 1.4 {ratio} [facility] Serum or plasma anion gap de terminationOrdered By: Brad Hodges on 05-03-2023 Anion gap [Moles/Vol] 10.1 mmol/L 6.0-15.0 [facility] Sodium [Moles/volume] in Ser um or PlasmaOrdered By: Brad Hodges on 05-03-2023 Sodium [Moles/Vol] 142 mmol/L 136-145 [facility] Urea nitrogen [Mass/volume] in Serum or PlasmaOrdered By: Brad Hodges on 05-03-2023 Urea nitrogen [Mass/Vol] 22 mg/dL 7-25 [facility] WBC Auto (Bld) [#/Vol]Ordere d By: Brad Hodges on 05-03-2023 WBC (Bld) [#/Vol] 4.8 10*3/uL 4.1-10.5 [facility] Anaerobic cultureOrdered By: Silvana Lundberg on 10-31-2022 Bacteria identified Anaer cx Nom (Unsp spec) No Anaerobes Isolated 3 Days [facility] Bacteria identified Aer cx N om (Unsp spec)Ordered By: Silvana Lundberg on 10-31-2022 Aerobic Culture Staphylococcus aureus [facility] Gram stain for investigation of transfusion reactionOrdered By: Silvana Lundberg on 10-31-2022 Microscopic observation Gram stain Nom (Unsp spec) [facility] EMG(NEURO/NI)on 10-16-2022 [facility] CBC panel Auto (Bld)on 10-06 Erythrocyte distribution width (RBC) [Ratio] 16.0 % High 11.5 - 15.0 % [facility] Hematocrit (Bld) [Volume fraction] 40.1 % 39.0 - 51.0 % [facility] Hemoglobin (Bld) [Mass/Vol] 12.3 g/dL Low 13.0 - 17.0 g/dL [facility] MCH (RBC) [Entitic mass] 31.6 pg 26.0 - 34.0 pg [facility] MCHC (RBC) [Mass/Vol] 30.7 g/dL 30.5 - 36.0 g/dL [facility] MCV (RBC) [Entitic vol] 103.1 fL High 80.0 - 100.0 fL [facility] Nucleated RBC (Bld) [#/Vol] <0.01 k/uL [facility] Platelet mean volume (Bld) [Entitic vol] 10.2 fL 9.0 - 12.7 fL [facility] Platelets (Bld) [#/Vol] 286 10*3/uL 150 - 400 k/uL [facility] RBC (Bld) [#/Vol] 3.89 10*6/uL Low 4.20 - 6.0 0 m/uL [facility] WBC (Bld) [#/Vol] 7.15 10*3/uL 3.70 - 11.00 k/uL [facility] CERULOPLASMIN BLDon 10-07-19 Ceruloplasmin [Mass/Vol] 30 mg/dL 15 - 30 mg/dL [facility] Comprehensive metabolic 2000 panelon 10-06-2022 Albumin [Mass/Vol] 3.6 g/dL Low 3.9 - 4.9 g/dL [facility] ALP [Catalytic activity/Vol] 72 U/L 38 - 113 U/L [facility] ALT [Catalytic activity/Vol] 17 U/L 10 - 54 U/L [facility] Anion gap [Moles/Vol] 9 mmol/L 9 - 18 mmol/L [facility] AST [Catalytic activity/Vol] 21 U/L 14 - 40 U/L [facility] Bilirubin [Mass/Vol] 0.2 mg/dL 0.2 - 1 .3 mg/dL [facility] Calcium [Mass/Vol] 9.5 mg/dL 8.5 - 10. 2 mg/dL [facility] Chloride [Moles/Vol] 108 mmol/L High 97 - 10 5 mmol/L [facility] CO2 [Moles/Vol] 25 mmol/L 22 - 30 mmol/L [facility] Creatinine [Mass/Vol] 1.43 mg/dL High 0.73 - 1.22 mg/dL [facility] Estimated Glomerular Filtration Rate 55 mL/min/1.73m Low >=60 mL/min/1.73 m [facility] Glucose [Mass/Vol] 100 mg/dL High 74 - 99 mg/dL [facility] Potassium [Moles/Vol] 5.4 mmol/L High 3.7 - 5.1 mmol/L [facility] Protein [Mass/Vol] 6.7 g/dL 6.3 - 8.0 g/dL [facility] Sodium [Moles/Vol] 142 mmol/L 136 - 144 mmol/L [facility] Urea nitrogen [Mass/Vol] 24 mg/dL 9 - 24 mg/dL [facility] FERRITIN [facility] 10-06-2022 Ferritin [Mass/Vol] 143.0 ng/mL 30.3 - 565.7 ng/mL [facility] FOLATE SERUMon 10-06-2022 Folate [Mass/Vol] 8.8 ng/mL >4.7 ng/mL [facility] HOMOCYSTEINEon 10-06-2022 Homocysteine [Moles/Vol] 14.7 umol/L <15.1 umol/L [facility] TSH Don 10-06-2022 TSH Qn 2.100 m[IU]/L 0.270 - 4.200 mIU/L [facility] VITAMIN B12 BLOODon 06-16-20 23 Cobalamin (Vitamin B12) [Mass/Vol] 355 pg/mL 232 - 1,245 pg/mL [facility] NM LUNG VENT / PERF VQon [facility] ECHOon 09-13-2022 [facility] LVEF ECHOon 09-13-2022 LV Ejection Fraction 51 % Abnormal <52 % [facility] CBC AUTO DIFFon 09-06-2022 BASO # 0.1 103/ul Normal 0.0-0.1 [facility] Comment on above: Performed By: #### C MADM, BNP, BMP #### [facility] [address] [address] [address] Risa Patterson Basophils/100 WBC (Bld) 1.1 % Normal 0.2-2.0 [facility] Comment on above: Performed By: #### C MADM, BNP, BMP #### [facility] [address] [address] [address] Risa Patterson EO # 0.3 103/ul Normal 0.0-0.7 [facility] Comment on above: Performed By: #### C MADM, BNP, BMP #### [facility] [address] [address] [address] Risa Patterson Eosinophils/100 WBC (Bld) 5.9 % Normal 0.9-7.0 [facility] Comment on above: Performed By: #### C MADM, BNP, BMP #### [facility] [address] [address] [address] Risa Patterson Erythrocyte distribution width (RBC) [Ratio] 15.1 % Critically high 11.0-15.0 [facility] Comment on above: Performed By: #### C MADM, BNP, BMP #### [facility] [address] [address] [address] Risa Patterson Hematocrit (Bld) [Volume fraction] 36.6 % Critically low 42.0-54.0 [facility] Comment on above: Performed By: #### C MADM, BNP, BMP #### [facility] [address] [address] [address] Risa Patterson Hemoglobin (Bld) [Mass/Vol] 11.4 g/dL Critically low 14.0-18.0 [facility] Comment on above: Performed By: #### C MADM, BNP, BMP #### [facility] [address] [place] [address] Dr. Risa Patterson IG # 0.02 10e3/ul Normal 0.00-0.03 [facility] Comment on above: Performed By: #### C MADM, BNP, BMP #### [facility] [address] [place] [address] Dr. Risa Patterson IG % 0.4 % Normal 0.0-0.5 [facility] Comment on above: Performed By: #### C MADM, BNP, BMP #### [facility] [address] [place] [address] Dr. Risa Patterson LYMPH # 0.9 103/ul Critically low 1.2-3.8 [facility] Comment on above: Performed By: #### C MADM, BNP, BMP #### [facility] [address] [place] [address] Dr. Risa Patterson Lymphocytes/100 WBC (Bld) 20.4 % Critically low 20.5-60.0 [facility] Comment on above: Performed By: #### C MADM, BNP, BMP #### [facility] [address] [place] [address] Dr. Risa Patterson MANUAL DIFF REQ NO Normal [facility] Comment on above: Performed By: #### C MADM, BNP, BMP #### [facility] [address] [place] [address] Dr. Risa Patterson MCH (RBC) [Entitic mass] 31.1 pg Normal 25.9-34.0 [facility] Comment on above: Performed By: #### C MADM, BNP, BMP #### [facility] [address] [place] [address] Dr. Risa Patterson MCHC (RBC) [Mass/Vol] 31.1 g/dL Normal 29.9-35.2 [facility] Comment on above: Performed By: #### C MADM, BNP, BMP #### [facility] [address] [place] [address] Dr. Risa Patterson MCV (RBC) [Entitic vol] 100.0 fL Critically high 80.0-94.0 [facility] Comment on above: Performed By: #### C MADM, BNP, BMP #### [facility] [address] [place] [address] Dr. Risa Patterson MONO # 0.3 103/ul Normal 0.3-0.8 [facility] Comment on above: Performed By: #### C MADM, BNP, BMP #### [facility] [address] [place] [address] Dr. Risa Patterson Monocytes/100 WBC (Bld) 6.6 % Normal 1.7-12.0 [facility] Comment on above: Performed By: #### C MADM, BNP, BMP #### [facility] [address] [place] [address] Dr. Risa Patterson NEUT # 3.0 103/ul Normal 1.4-6.5 [facility] Comment on above: Performed By: #### C MADM, BNP, BMP #### [facility] [address] [place] [address] Dr. Risa Patterson Neutrophils/100 WBC (Bld) 65.6 % Normal 43.0-75.0 [facility] Comment on above: Performed By: #### C MADM, BNP, BMP #### [facility] [address] [place] [address] Dr. Risa Patterson Platelet mean volume (Bld) [Entitic vol] 9.1 fL Critically low 9.5-13.5 [facility] Comment on above: Performed By: #### C MADM, BNP, BMP #### [facility] [address] [place] [address] Dr. Risa Patterson PLT 286 103/ul Normal 150-450 [facility] Comment on above: Performed By: #### C MADM, BNP, BMP #### [facility] [address] [place] [address] Dr. Risa Patterson RBC 3.66 106/ul Critically low 4.70-6.10 [facility] Comment on above: Performed By: #### C MADM, BNP, BMP #### [facility] [address] [address] [address] Risa Patterson WBC 4.6 103/ul Normal 4.0-11.0 [facility] Comment on above: Performed By: #### C MADM, BNP, BMP #### [facility] [address] [address] [address] Risa Patterson PROF 14(COMP METB)on 023 Albumin [Mass/Vol] 2.9 g/dL Critically low 3.4-5.0 [facility] Comment on above: Performed By: #### C MP #### [facility] [address] [place] [address] Dr. Risa Patterson Albumin/Globulin [Mass ratio] 0.7 {ratio} Normal [facility] Comment on above: Performed By: #### C MP #### [facility] [address] [place] [address] Dr. Risa Patterson ALP [Catalytic activity/Vol] 66 U/L Normal 46-116 [facility] Comment on above: Performed By: #### C MP #### [facility] [address] [place] [address] Dr. Risa Patterson ALT [Catalytic activity/Vol] 31 U/L Normal 16-63 [facility] Comment on above: Performed By: #### C MP #### [facility] [address] [place] [address] Dr. Risa Patterson Anion gap [Moles/Vol] 15.6 mmol/L Normal [facility] Comment on above: Performed By: #### C MP #### [facility] [address] [place] [address] Dr. Risa Patterson AST [Catalytic activity/Vol] 35 U/L Normal 15-37 [facility] Comment on above: Performed By: #### C MP #### [facility] [address] [place] [address] Dr. Risa Patterson Bilirubin [Mass/Vol] 0.4 mg/dL Normal 0.2-1.0 [facility] Comment on above: Performed By: #### C MP #### [facility] [address] [address] [address] Risa Patterson Calcium [Mass/Vol] 8.9 mg/dL Normal 8.5-10.1 [facility] Comment on above: Performed By: #### C MP #### [facility] [address] [address] [address] Risa Patterson Chloride [Moles/Vol] 105 mmol/L Normal 98-107 [facility] Comment on above: Performed By: #### C MP #### [facility] [address] [address] [address] Risa Patterson CO2 [Moles/Vol] 24.5 mmol/L Normal 21.0-32.0 [facility] Comment on above: Performed By: #### C MP #### [facility] [address] [address] [address] Risa Patterson Creatinine [Mass/Vol] 1.35 mg/dL Critically high 0.70-1.30 [facility] Comment on above: Performed By: #### C MP #### [facility] [address] [address] Dr. Risa Patterson EGFR-AF BRUNEIAN >60 Normal >=60 [facility] Comment on above: Performed By: #### C MP #### [facility] [address] [address] [address] Risa Patterson EGFR-NON AF BRUNEIAN 54 mL/min/1.73m2 Critically low >=60 [facility] Comment on above: Performed By: #### C MP #### [facility] [address] [address] [address] Risa Patterson Globulin (S) [Mass/Vol] 4.3 g/dL Normal [facility] Comment on above: Performed By: #### C MP #### [facility] [address] [address] [address] Risa Patterson Glucose [Mass/Vol] 107 mg/dL Critically high 74-106 T [facility] Comment on above: Performed By: #### C MP #### [facility] [address] [address] [address] Risa Patterson Potassium [Moles/Vol] 4.1 mmol/L Normal 3.5-5.1 [facility] Comment on above: Performed By: #### C MP #### [facility] [address] [address] [address] Risa Patterson Protein [Mass/Vol] 7.2 g/dL Normal 6.4-8.2 [facility] Comment on above: Performed By: #### C MP #### [facility] [address] [address] [address] Risa Patterson Sodium [Moles/Vol] 141 mmol/L Normal 136-145 [facility] Comment on above: Performed By: #### C MP #### [facility] [address] [address] [address] Risa Patterson Urea nitrogen [Mass/Vol] 19.0 mg/dL Critically high 7.0-18.0 [facility] Comment on above: Performed By: #### C MP #### [facility] [address] [address] [address] Risa Patterson Urea nitrogen/Creatinine [Mass ratio] 14.1 mg/mg Normal [facility] Comment on above: Performed By: #### C MP #### [facility] [address] [address] [address] Risa Patterson SED RATE [facility] 2022 SED RATE 57 mm/hr Critically high <=20 [facility] Comment on above: Performed By: #### S EDR #### [facility] [address] [address] [address] Risa Patterson ECG COMPLETEon 08-16-2022 Atrial Rate 83 BPM [facility] Calculated P [place] 27 degrees [facility] Calculated R [place] 14 degrees [facility] Calculated T [place] 38 degrees [facility] P-R Interval 158 ms [facility] QRS Duration 86 ms [facility] QT Interval 350 ms [facility] QTC Calculation ([place]az[place]) 411 ms [facility] Ventricular Rate 83 BPM [facility] TILT TABLE TESTon 08-01-2022 TILT TABLE TEST [address] [id number] TILT TABLE TEST PATIENT NAME: ELENA FELIX : 1960 MED REC NO: [id number] ROOM: ACCOUNT NO: [id number] ADMIT DATE: 07/31/2022 PROVIDER: Santos Barrios MD Cardiovascular Diagnostics Department DATE OF PROCEDURE: 07/31/2022 ORDERING PROVIDER: Carlos Krishna APRNSAHIL PRIMARY CARE PROVIDER: Silvana Lundberg MD INTERPRETING [...] up with their primary care physician and/or housing director as previously scheduled. STUDY CONCLUSIONS: Abnormal head [...] treatment of this condition. SANTOS BARRIOS MD AA/TERENCEVARUN_LENINIT Doc#: Unknown CC: Silvana Lundberg [facility] CBC AUTO DIFFon 07-04-2022 BASO # 0.1 103/ul Normal 0.0-0.1 [facility] Comment on above: Performed By: #### C MADM, BNP, BMP #### [facility] [address] [place] [address] Dr. Risa Patterson Basophils/100 WBC (Bld) 0.8 % Normal 0.2-2.0 [facility] Comment on above: Performed By: #### C MADM, BNP, BMP #### [facility] [address] [place] [address] Dr. Risa Patterson EO # 0.3 103/ul Normal 0.0-0.7 [facility] Comment on above: Performed By: #### C MADM, BNP, BMP #### [facility] [address] [place] [address] Dr. Risa Patterson Eosinophils/100 WBC (Bld) 4.0 % Normal 0.9-7.0 [facility] Comment on above: Performed By: #### C MADM, BNP, BMP #### [facility] [address] [place] [address] Dr. Risa Patterson Erythrocyte distribution width (RBC) [Ratio] 15.8 % Critically high 11.0-15.0 [facility] Comment on above: Performed By: #### C MADM, BNP, BMP #### [facility] [address] [place] [address] Dr. Risa Patterson Hematocrit (Bld) [Volume fraction] 37.3 % Critically low 42.0-54.0 [facility] Comment on above: Performed By: #### C MADM, BNP, BMP #### [facility] [address] [place] [address] Dr. Risa Patterson Hemoglobin (Bld) [Mass/Vol] 11.7 g/dL Critically low 14.0-18.0 [facility] Comment on above: Performed By: #### C MADM, BNP, BMP #### [facility] [address] [place] [address] Dr. Risa Patterson IG # 0.04 10e3/ul Critically high 0.00-0.03 [facility] Comment on above: Performed By: #### C MADM, BNP, BMP #### [facility] [address] [place] [address] Dr. Risa Patterson IG % 0.5 % Normal 0.0-0.5 [facility] Comment on above: Performed By: #### C MADM, BNP, BMP #### [facility] [address] [place] [address] Dr. Risa Patterson LYMPH # 1.0 103/ul Critically low 1.2-3.8 [facility] Comment on above: Performed By: #### C MADM, BNP, BMP #### [facility] [address] [place] [address] Dr. Risa Patterson Lymphocytes/100 WBC (Bld) 13.1 % Critically low 20.5-60.0 [facility] Comment on above: Performed By: #### C MADM, BNP, BMP #### [facility] [address] [place] [address] Dr. Risa Patterson MANUAL DIFF REQ NO Normal [facility] Comment on above: Performed By: #### C MADM, BNP, BMP #### [facility] [address] [place] [address] Dr. Risa Patterson MCH (RBC) [Entitic mass] 31.3 pg Normal 25.9-34.0 [facility] Comment on above: Performed By: #### C MADM, BNP, BMP #### [facility] [address] [place] [address] Dr. Risa Patterson MCHC (RBC) [Mass/Vol] 31.4 g/dL Normal 29.9-35.2 [facility] Comment on above: Performed By: #### C MADM, BNP, BMP #### [facility] [address] [place] [address] Dr. Risa Patterson MCV (RBC) [Entitic vol] 99.7 fL Critically high 80.0-94.0 [facility] Comment on above: Performed By: #### C MADM, BNP, BMP #### [facility] [address] [place] [address] Dr. Risa Patterson MONO # 0.9 103/ul Critically high 0.3-0.8 [facility] Comment on above: Performed By: #### C MADM, BNP, BMP #### [facility] [address] [place] [address] Dr. Risa Patterson Monocytes/100 WBC (Bld) 12.3 % Critically high 1.7-12.0 [facility] Comment on above: Performed By: #### C MADM, BNP, BMP #### [facility] [address] [place] [address] Dr. Risa Patterson NEUT # 5.2 103/ul Normal 1.4-6.5 [facility] Comment on above: Performed By: #### C MADM, BNP, BMP #### [facility] [address] [place] [address] Dr. Risa Patterson Neutrophils/100 WBC (Bld) 69.3 % Normal 43.0-75.0 [facility] Comment on above: Performed By: #### C MADM, BNP, BMP #### [facility] [address] [place] [address] Dr. Risa Patterson Platelet mean volume (Bld) [Entitic vol] 9.3 fL Critically low 9.5-13.5 [facility] Comment on above: Performed By: #### C MADM, BNP, BMP #### [facility] [address] [place] [address] Dr. Risa Patterson PLT 244 103/ul Normal 150-450 [facility] Comment on above: Performed By: #### C MADM, BNP, BMP #### [facility] [address] [place], [place] [address] Dr. Risa Patterson RBC 3.74 106/ul Critically low 4.70-6.10 [facility] Comment on above: Performed By: #### C MADM, BNP, BMP #### [facility] [address] [place], [place] [address] Dr. Risa Patterson WBC 7.5 103/ul Normal 4.0-11.0 [facility] Comment on above: Performed By: #### C MADM, BNP, BMP #### [facility] [address] [place], [place] [address] Dr. Risa Patterson ECHOCARDIO M/2D COMPLETEon 0 07-04-2022 ECHOCARDIO M/2D COMPLETE Patient: ELENA FELIX Exam Date: 07/04/2022 : 1960 Gender:M Ordering : NIKKIE TREJO Admission #: [id number] Family : DR BRAD HODGES M.D. Order #: [id number] CLICK HERE TO VIEW EXAM ECHOCARDIOGRAM REPORT [...] Hernandez M.D. on 07/04/2022 at 12:06 Normal [facility] PROF 14(COMP METB)on 023 Albumin [Mass/Vol] 2.9 g/dL Critically low 3.4-5.0 [facility] Comment on above: Performed By: #### C MP #### [facility] [address] [place] [address] Dr. Risa Patterson Albumin/Globulin [Mass ratio] 0.8 {ratio} Normal [facility] Comment on above: Performed By: #### C MP #### [facility] [address] [place] [address] Dr. Risa Patterson ALP [Catalytic activity/Vol] 62 U/L Normal 46-116 [facility] Comment on above: Performed By: #### C MP #### [facility] [address] [place] [address] Dr. Risa Patterson ALT [Catalytic activity/Vol] 30 U/L Normal 16-63 [facility] Comment on above: Performed By: #### C MP #### [facility] [address] [place] [address] Dr. Risa Patterson Anion gap [Moles/Vol] 9.3 mmol/L Normal [facility] Comment on above: Performed By: #### C MP #### [facility] [address] [place] [address] Dr. Risa Patterson AST [Catalytic activity/Vol] 25 U/L Normal 15-37 [facility] Comment on above: Performed By: #### C MP #### [facility] [address] [place] [address] Dr. Risa Patterson Bilirubin [Mass/Vol] 0.4 mg/dL Normal 0.2-1.0 [facility] Comment on above: Performed By: #### C MP #### [facility] [address] [address] [address] Risa Patterson Calcium [Mass/Vol] 8.8 mg/dL Normal 8.5-10.1 [facility] Comment on above: Performed By: #### C MP #### [facility] [address] [address] [address] Risa Patterson Chloride [Moles/Vol] 108 mmol/L Critically high 98-107 [facility] Comment on above: Performed By: #### C MP #### [facility] [address] [address] [address] Risa Patterson CO2 [Moles/Vol] 29.8 mmol/L Normal 21.0-32.0 [facility] Comment on above: Performed By: #### C MP #### [facility] [address] [place] [address] Dr. Risa Patterson Creatinine [Mass/Vol] 1.26 mg/dL Normal 0.70-1.30 [facility] Comment on above: Performed By: #### C MP #### [facility] [address] [place] [address] Dr. Risa Patterson EGFR-AF BRUNEIAN >60 Normal >=60 [facility] Comment on above: Performed By: #### C MP #### [facility] [address] [place] [address] Dr. Risa Patterson EGFR-NON AF BRUNEIAN 58 mL/min/1.73m2 Critically low >=60 [facility] Comment on above: Performed By: #### C MP #### [facility] [address] [place] [address] Dr. Risa Patterson Globulin (S) [Mass/Vol] 3.6 g/dL Normal [facility] Comment on above: Performed By: #### C MP #### [facility] [address] [place] [address] Dr. Risa Patterson Glucose [Mass/Vol] 114 mg/dL Critically high 74-106 T [facility] Comment on above: Performed By: #### C MP #### [facility] [address] [place] [address] Dr. Risa Patterson Potassium [Moles/Vol] 4.1 mmol/L Normal 3.5-5.1 [facility] Comment on above: Performed By: #### C MP #### [facility] [address] [place] [address] Dr. Risa Patterson Protein [Mass/Vol] 6.5 g/dL Normal 6.4-8.2 [facility] Comment on above: Performed By: #### C MP #### [facility] [address] [place] [address] Dr. Risa Patterson Sodium [Moles/Vol] 143 mmol/L Normal 136-145 [facility] Comment on above: Performed By: #### C MP #### [facility] [address] [place] [address] Dr. Risa Patterson Urea nitrogen [Mass/Vol] 20.0 mg/dL Critically high 7.0-18.0 [facility] Comment on above: Performed By: #### C MP #### [facility] [address] [place] [address] Dr. Risa Patterson Urea nitrogen/Creatinine [Mass ratio] 15.9 mg/mg Normal [facility] Comment on above: Performed By: #### C MP #### [facility] [address] [place] [address] Dr. Risa Patterson [facility] 26 mm/hr Critically high <=20 [facility] Comment on above: Performed By: #### C MADM, BNP, BMP #### [facility] [address] [place] [address] Dr. Risa Patterson BNPon 06-26-2022 Natriuretic peptide B (Bld) [Mass/Vol] 82.0 pg/mL Normal <=900.0 [facility] Comment on above: Performed By: #### C MREP #### [facility] [address] [place] [address] Dr. Risa Pattersno CBC AUTO DIFFon 06-26-2022 BASO # 0.1 103/ul Normal 0.0-0.1 [facility] Comment on above: Performed By: #### C MREP #### [facility] [address] [address] [address] Risa Patterson Basophils/100 WBC (Bld) 0.7 % Normal 0.2-2.0 [facility] Comment on above: Performed By: #### C MREP #### [facility] [address] [place] [address] Dr. Risa Patterson EO # 0.4 103/ul Normal 0.0-0.7 [facility] Comment on above: Performed By: #### C MREP #### [facility] [address] [place] [address] Dr. Risa Patterson Eosinophils/100 WBC (Bld) 3.9 % Normal 0.9-7.0 [facility] Comment on above: Performed By: #### C MREP #### [facility] [address] [place] [address] Dr. Risa Patterson Erythrocyte distribution width (RBC) [Ratio] 15.0 % Normal 11.0-15.0 [facility] Comment on above: Performed By: #### C MREP #### [facility] [address] [place] [address] Dr. Risa Patterson Hematocrit (Bld) [Volume fraction] 39.1 % Critically low 42.0-54.0 [facility] Comment on above: Performed By: #### C MREP #### [facility] [address] [place] [address] Dr. Risa Patterson Hemoglobin (Bld) [Mass/Vol] 12.3 g/dL Critically low 14.0-18.0 [facility] Comment on above: Performed By: #### C MREP #### [facility] [address] [place] [address] Dr. Risa Patterson IG # 0.07 10e3/ul Critically high 0.00-0.03 [facility] Comment on above: Performed By: #### C MREP #### [facility] [address] [place] [address] Dr. Risa Patterson IG % 0.8 % Critically high 0.0-0.5 [facility] Comment on above: Performed By: #### C MREP #### [facility] [address] [address] [address] Risa Patterson LYMPH # 1.0 103/ul Critically low 1.2-3.8 [facility] Comment on above: Performed By: #### C MREP #### [facility] [address] [address] [address] Risa Patterson Lymphocytes/100 WBC (Bld) 11.3 % Critically low 20.5-60.0 [facility] Comment on above: Performed By: #### C MREP #### [facility] [address] [address] [address] Risa Patterson MANUAL DIFF REQ NO Normal [facility] Comment on above: Performed By: #### C MREP #### [facility] [address] [address] [address] Risa Patterson MCH (RBC) [Entitic mass] 30.9 pg Normal 25.9-34.0 [facility] Comment on above: Performed By: #### C MREP #### [facility] [address] [address] [address] Risa Patterson MCHC (RBC) [Mass/Vol] 31.5 g/dL Normal 29.9-35.2 [facility] Comment on above: Performed By: #### C MREP #### [facility] [address] [address] [address] Risa Patterson MCV (RBC) [Entitic vol] 98.2 fL Critically high 80.0-94.0 [facility] Comment on above: Performed By: #### C MREP #### [facility] [address] [address] [address] Risa Patterson MONO # 1.1 103/ul Critically high 0.3-0.8 [facility] Comment on above: Performed By: #### C MREP #### [facility] [address] [address] [address] Risa Patterson Monocytes/100 WBC (Bld) 12.1 % Critically high 1.7-12.0 [facility] Comment on above: Performed By: #### C MREP #### [facility] [address] [address] [address] Risa Patterson NEUT # 6.4 103/ul Normal 1.4-6.5 [facility] Comment on above: Performed By: #### C MREP #### [facility] [address] [address] [address] Risa Patterson Neutrophils/100 WBC (Bld) 71.2 % Normal 43.0-75.0 [facility] Comment on above: Performed By: #### C MREP #### [facility] [address] [address] [address] Risa Patterson Platelet mean volume (Bld) [Entitic vol] 9.2 fL Critically low 9.5-13.5 [facility] Comment on above: Performed By: #### C MREP #### [facility] [address] [address] [address] Risa Patterson PLT 285 103/ul Normal 150-450 [facility] Comment on above: Performed By: #### C MREP #### [facility] [address] [address] [address] Risa Patterson RBC 3.98 106/ul Critically low 4.70-6.10 [facility] Comment on above: Performed By: #### C MREP #### [facility] [address] [address] [address] Risa Patterson WBC 9.0 103/ul Normal 4.0-11.0 [facility] Comment on above: Performed By: #### C MREP #### [facility] [address] [address] [address] Risa Patterson PROF CHEM 8 (BAS METB)on Anion gap [Moles/Vol] 12.3 mmol/L Normal Th [facility] Comment on above: Performed By: #### C MREP #### [facility] [address] [address] [address] Risa Patterson Calcium [Mass/Vol] 9.3 mg/dL Normal 8.5-10.1 [facility] Comment on above: Performed By: #### C MREP #### [facility] [address] [address] [address] Risa Patterson Chloride [Moles/Vol] 106 mmol/L Normal 98-107 [facility] Comment on above: Performed By: #### C MREP #### [facility] [address] [address] [address] Risa Patterson CO2 [Moles/Vol] 29.2 mmol/L Normal 21.0-32.0 [facility] Comment on above: Performed By: #### C MREP #### [facility] [address] [address] [address] Risa Patterson Creatinine [Mass/Vol] 1.40 mg/dL Critically high 0.70-1.30 [facility] Comment on above: Performed By: #### C MREP #### [facility] [address] [address] [address] Risa Patterson EGFR-AF BRUNEIAN >60 Normal >=60 [facility] Comment on above: Performed By: #### C MREP #### [facility] [address] [address] [address] Risa Patterson EGFR-NON AF BRUNEIAN 52 mL/min/1.73m2 Critically low >=60 [facility] Comment on above: Performed By: #### C MREP #### [facility] [address] [address] [address] Risa Patterson Glucose [Mass/Vol] 107 mg/dL Critically high 74-106 [facility] Comment on above: Performed By: #### C MREP #### [facility] [address] [address] [address] Risa Patterson Potassium [Moles/Vol] 4.5 mmol/L Normal 3.5-5.1 [facility] Comment on above: Performed By: #### C MREP #### [facility] [address] [place] [address] Dr. Risa Patterson Sodium [Moles/Vol] 143 mmol/L Normal 136-145 [facility] Comment on above: Performed By: #### C MREP #### [facility] [address] [address] [address] Risa Patterson Urea nitrogen [Mass/Vol] 20.0 mg/dL Critically high 7.0-18.0 [facility] Comment on above: Performed By: #### C MREP #### [facility] [id number] Risa Patterson Urea nitrogen/Creatinine [Mass ratio] 14.3 mg/mg Normal [facility] Comment on above: Performed By: #### C MREP #### [facility] [address] [address] [address] CHEST HI RESOLUTIONon CT CHEST HI [...] ASHER SOLANO Date: 2022-04-25 11:06 Normal [facility] HEMOGLOBINon 04-10-2022 Hemoglobin (Bld) [Mass/Vol] 11.9 g/dL Critically low 14.0-18.0 [facility] Comment on above: Performed By: #### C MADM, BNP, BMP #### [facility] [address] [place] [address] Dr. Risa Patterson CBC AUTO DIFFon 04-03-2022 BASO # 0.0 103/ul Normal 0.0-0.1 [facility] Comment on above: Performed By: #### C MADM, BNP, BMP #### [facility] [address] [place] [address] Dr. Risa Patterson Basophils/100 WBC (Bld) 0.5 % Normal 0.2-2.0 [facility] Comment on above: Performed By: #### C MADM, BNP, BMP #### [facility] [address] [place] [address] Dr. Risa Patterson EO # 0.3 103/ul Normal 0.0-0.7 [facility] Comment on above: Performed By: #### C MADM, BNP, BMP #### [facility] [address] [place] [address] Dr. Risa Patterson Eosinophils/100 WBC (Bld) 5.3 % Normal 0.9-7.0 [facility] Comment on above: Performed By: #### C MADM, BNP, BMP #### [facility] [address] [place] [address] Dr. Risa Patterson Erythrocyte distribution width (RBC) [Ratio] 16.3 % Critically high 11.0-15.0 [facility] Comment on above: Performed By: #### C MADM, BNP, BMP #### [facility] [address] [place] [address] Dr. Risa Patterson Hematocrit (Bld) [Volume fraction] 38.4 % Critically low 42.0-54.0 [facility] Comment on above: Performed By: #### C MADM, BNP, BMP #### [facility] [address] [place] [address] Dr. Risa Patterson Hemoglobin (Bld) [Mass/Vol] 12.0 g/dL Critically low 14.0-18.0 [facility] Comment on above: Performed By: #### C MADM, BNP, BMP #### [facility] [address] [place] [address] Dr. Risa Patterson IG # 0.04 10e3/ul Critically high 0.00-0.03 [facility] Comment on above: Performed By: #### C MADM, BNP, BMP #### [facility] [address] [place] [address] Dr. Risa Patterson IG % 0.7 % Critically high 0.0-0.5 [facility] Comment on above: Performed By: #### C MADM, BNP, BMP #### [facility] [address] [place] [address] Dr. Risa Patterson LYMPH # 1.1 103/ul Critically low 1.2-3.8 [facility] Comment on above: Performed By: #### C MADM, BNP, BMP #### [facility] [address] [place] [address] Dr. iRsa Patterson Lymphocytes/100 WBC (Bld) 18.7 % Critically low 20.5-60.0 [facility] Comment on above: Performed By: #### C MADM, BNP, BMP #### [facility] Laboratory [address] [place] [address] Dr. Risa Patterson MANUAL DIFF REQ NO Normal [facility] Comment on above: Performed By: #### C MADM, BNP, BMP #### [facility] [address] [place] [address] Dr. Risa Patterson MCH (RBC) [Entitic mass] 31.3 pg Normal 25.9-34.0 [facility] Comment on above: Performed By: #### C MADM, BNP, BMP #### [facility] [address] [place] [address] Dr. Risa Patterson MCHC (RBC) [Mass/Vol] 31.3 g/dL Normal 29.9-35.2 [facility] Comment on above: Performed By: #### C MADM, BNP, BMP #### [facility] [address] [place] [address] Dr. Risa Patterson MCV (RBC) [Entitic vol] 100.0 fL Critically high 80.0-94.0 [facility] Comment on above: Performed By: #### C MADM, BNP, BMP #### [facility] [address] [address] [address] Risa Patterson MONO # 0.8 103/ul Normal 0.3-0.8 [facility] Comment on above: Performed By: #### C MADM, BNP, BMP #### [facility] [address] [address] [address] Risa Patterson Monocytes/100 WBC (Bld) 13.7 % Critically high 1.7-12.0 [facility] Comment on above: Performed By: #### C MADM, BNP, BMP #### [facility] [address] [place] [address] Dr. Risa Patterson NEUT # 3.7 103/ul Normal 1.4-6.5 [facility] Comment on above: Performed By: #### C MADM, BNP, BMP #### [facility] [address] [place] [address] Dr. Risa Patterson Neutrophils/100 WBC (Bld) 61.1 % Normal 43.0-75.0 [facility] Comment on above: Performed By: #### C MADM, BNP, BMP #### [facility] [address] [place] [address] Dr. Risa Patterson Platelet mean volume (Bld) [Entitic vol] 9.5 fL Normal 9.5-13.5 [facility] Comment on above: Performed By: #### C MADM, BNP, BMP #### [facility] [address] [place] [address] Dr. Risa Patterson PLT 218 103/ul Normal 150-450 [facility] Comment on above: Performed By: #### C MADM, BNP, BMP #### [facility] [address] [place] [address] Dr. Risa Patterson RBC 3.84 106/ul Critically low 4.70-6.10 [facility] Comment on above: Performed By: #### C MADM, BNP, BMP #### [facility] [address] [place] [address] Dr. Risa Patterson WBC 6.0 103/ul Normal 4.0-11.0 [facility] Comment on above: Performed By: #### C MADM, BNP, BMP #### [facility] [address] [address] [address] Risa Patterson PROF 14(COMP METB)on 022 Albumin [Mass/Vol] 2.9 g/dL Critically low 3.4-5.0 [facility] Comment on above: Performed By: #### C MADM, BNP, BMP #### [facility] [address] [place] [address] Dr. Risa Patterson Albumin/Globulin [Mass ratio] 0.7 {ratio} Normal [facility] Comment on above: Performed By: #### C MADM, BNP, BMP #### [facility] [address] [place] [address] Dr. Risa Patterson ALP [Catalytic activity/Vol] 66 U/L Normal 46-116 [facility] Comment on above: Performed By: #### C MADM, BNP, BMP #### [facility] [address] [place] [address] Dr. Risa Patterson ALT [Catalytic activity/Vol] 33 U/L Normal 16-63 [facility] Comment on above: Performed By: #### C MADM, BNP, BMP #### [facility] [address] [place] [address] Dr. Risa Patterson Anion gap [Moles/Vol] 10.7 mmol/L Normal [facility] Comment on above: Performed By: #### C MADM, BNP, BMP #### [facility] [address] [place] [address] Dr. Risa Patterson AST [Catalytic activity/Vol] 24 U/L Normal 15-37 [facility] Comment on above: Performed By: #### C MADM, BNP, BMP #### [facility] [address] [place] [address] Dr. Risa Patterson Bilirubin [Mass/Vol] 0.3 mg/dL Normal 0.2-1.0 [facility] Comment on above: Performed By: #### C MADM, BNP, BMP #### [facility] [address] [place] [address] Dr. Risa Patterson Calcium [Mass/Vol] 9.0 mg/dL Normal 8.5-10.1 [facility] Comment on above: Performed By: #### C MADM, BNP, BMP #### [facility] [address] [place] [address] Dr. Risa Patterson Chloride [Moles/Vol] 106 mmol/L Normal 98-107 [facility] Comment on above: Performed By: #### C MADM, BNP, BMP #### [facility] [address] [place] [address] Dr. Risa Patterson CO2 [Moles/Vol] 31.7 mmol/L Normal 21.0-32.0 [facility] Comment on above: Performed By: #### C MADM, BNP, BMP #### [facility] [address] [place] [address] Dr. Risa Patterson Creatinine [Mass/Vol] 1.18 mg/dL Normal 0.70-1.30 [facility] Comment on above: Performed By: #### C MADM, BNP, BMP #### [facility] [address] [place] [address] Dr. Risa Patterson EGFR-AF BRUNEIAN >60 Normal >=60 [facility] Comment on above: Performed By: #### C MADM, BNP, BMP #### [facility] [address] [place] [address] Dr. Risa Patterson EGFR-NON AF BRUNEIAN >60 Normal >=60 [facility] Comment on above: Performed By: #### C MADM, BNP, BMP #### [facility] [address] [place] [address] Dr. Risa Patterson Globulin (S) [Mass/Vol] 3.9 g/dL Normal [facility] Comment on above: Performed By: #### C MADM, BNP, BMP #### [facility] [address] [place] [address] Dr. Risa Patterson Glucose [Mass/Vol] 99 mg/dL Normal 74-106 [facility] Comment on above: Performed By: #### C MADM, BNP, BMP #### [facility] [address] [place] [address] Dr. Risa Patterson Potassium [Moles/Vol] 4.4 mmol/L Normal 3.5-5.1 [facility] Comment on above: Performed By: #### C MADM, BNP, BMP #### [facility] [address] [place] [address] Dr. Risa Patterson Protein [Mass/Vol] 6.8 g/dL Normal 6.4-8.2 [facility] Comment on above: Performed By: #### C MADM, BNP, BMP #### [facility] [address] [place] [address] Dr. Risa Patterson Sodium [Moles/Vol] 144 mmol/L Normal 136-145 [facility] Comment on above: Performed By: #### C MADM, BNP, BMP #### [facility] [address] [place] [address] Dr. Risa Patterson Urea nitrogen [Mass/Vol] 17.0 mg/dL Normal 7.0-18.0 [facility] Comment on above: Performed By: #### C MADM, BNP, BMP #### [facility] [address] [place] [address] Dr. Risa Patterson Urea nitrogen/Creatinine [Mass ratio] 14.4 mg/mg Normal [facility] Comment on above: Performed By: #### C MADM, BNP, BMP #### [facility] [address] [place] [address] Dr. Risa Patterson SED RATE [facility] 2021 SED RATE 66 mm/hr Critically high <=20 [facility] Comment on above: Performed By: #### C MADM, BNP, BMP #### [facility] [address] [place] [address] Dr. Risa Patterson CBC AUTO DIFFon 01-02-2022 BASO # 0.1 103/ul Normal 0.0-0.1 [facility] Comment on above: Performed By: #### C MADM, BNP, BMP #### [facility] [address] [place] [address] Dr. Risa Patterson Basophils/100 WBC (Bld) 1.1 % Normal 0.2-2.0 [facility] Comment on above: Performed By: #### C MADM, BNP, BMP #### [facility] [address] [place] [address] Dr. Risa Patterson EO # 0.3 103/ul Normal 0.0-0.7 [facility] Comment on above: Performed By: #### C MADM, BNP, BMP #### [facility] [address] [place] [address] Dr. Risa Patterson Eosinophils/100 WBC (Bld) 7.1 % Critically high 0.9-7.0 [facility] Comment on above: Performed By: #### C MADM, BNP, BMP #### [facility] [address] [place] [address] Dr. Risa Patterson Erythrocyte distribution width (RBC) [Ratio] 17.2 % Critically high 11.0-15.0 [facility] Comment on above: Performed By: #### C MADM, BNP, BMP #### [facility] [address] [place] [address] Dr. Risa Patterson Hematocrit (Bld) [Volume fraction] 34.0 % Critically low 42.0-54.0 [facility] Comment on above: Performed By: #### C MADM, BNP, BMP #### [facility] [address] [place] [address] Dr. Risa Patterson Hemoglobin (Bld) [Mass/Vol] 10.6 g/dL Critically low 14.0-18.0 [facility] Comment on above: Performed By: #### C MADM, BNP, BMP #### [facility] [address] [place] [address] Dr. Risa Patterson IG # 0.02 10e3/ul Normal 0.00-0.03 [facility] Comment on above: Performed By: #### C MADM, BNP, BMP #### [facility] [address] [place] [address] Dr. Risa Patterson IG % 0.4 % Normal 0.0-0.5 [facility] Comment on above: Performed By: #### C MADM, BNP, BMP #### [facility] [address] [place] [address] Dr. Risa Patterson LYMPH # 1.0 103/ul Critically low 1.2-3.8 [facility] Comment on above: Performed By: #### C MADM, BNP, BMP #### [facility] [address] [place] [address] Dr. Risa Patterson Lymphocytes/100 WBC (Bld) 22.9 % Normal 20.5-60.0 [facility] Comment on above: Performed By: #### C MADM, BNP, BMP #### [facility] [address] [place] [address] Dr. Risa Patterson MANUAL DIFF REQ NO Normal [facility] Comment on above: Performed By: #### C MADM, BNP, BMP #### [facility] [address] [place] [address] Dr. Risa Patterson MCH (RBC) [Entitic mass] 31.2 pg Normal 25.9-34.0 [facility] Comment on above: Performed By: #### C MADM, BNP, BMP #### [facility] [address] [place] [address] Dr. Risa Patterson MCHC (RBC) [Mass/Vol] 31.2 g/dL Normal 29.9-35.2 [facility] Comment on above: Performed By: #### C MADM, BNP, BMP #### [facility] [address] [place] [address] Dr. Risa Patterson MCV (RBC) [Entitic vol] 100.0 fL Critically high 80.0-94.0 [facility] Comment on above: Performed By: #### C MADM, BNP, BMP #### [facility] [address] [place] [address] Dr. Risa Patterson MONO # 0.8 103/ul Normal 0.3-0.8 [facility] Comment on above: Performed By: #### C MADM, BNP, BMP #### [facility] [address] [place] [address] Dr. Risa Patterson Monocytes/100 WBC (Bld) 18.7 % Critically high 1.7-12.0 [facility] Comment on above: Performed By: #### C MADM, BNP, BMP #### [facility] [address] [place] [address] Dr. Risa Patterson NEUT # 2.2 103/ul Normal 1.4-6.5 [facility] Comment on above: Performed By: #### C MADM, BNP, BMP #### [facility] [address] [place] [address] Dr. Risa Patterson Neutrophils/100 WBC (Bld) 49.8 % Normal 43.0-75.0 [facility] Comment on above: Performed By: #### C MADM, BNP, BMP #### [facility] [address] [place] [address] Dr. Risa Patterson Platelet mean volume (Bld) [Entitic vol] 10.0 fL Normal 9.5-13.5 [facility] Comment on above: Performed By: #### C MADM, BNP, BMP #### [facility] [address] [place] [address] Dr. Risa Patterson PLT 232 103/ul Normal 150-450 [facility] Comment on above: Performed By: #### C MADM, BNP, BMP #### [facility] [address] [place] [address] Dr. Risa Patterson RBC 3.40 106/ul Critically low 4.70-6.10 [facility] Comment on above: Performed By: #### C MADM, BNP, BMP #### [facility] [address] [place] [address] Dr. Risa Patterson WBC 4.5 103/ul Normal 4.0-11.0 [facility] Comment on above: Performed By: #### C MADM, BNP, BMP #### [facility] [address] [place] [address] Dr. Risa Patterson PROF 14(COMP METB)on 022 Albumin [Mass/Vol] 2.8 g/dL Critically low 3.4-5.0 [facility] Comment on above: Performed By: #### C MREP #### [facility] [address] [address] [address] Risa Patterson Albumin/Globulin [Mass ratio] 0.8 {ratio} Normal [facility] Comment on above: Performed By: #### C MREP #### [facility] [address] [address] [address] Risa Patterson ALP [Catalytic activity/Vol] 63 U/L Normal 46-116 [facility] Comment on above: Performed By: #### C MREP #### [facility] [address] [address] [address] Risa Patterson ALT [Catalytic activity/Vol] 29 U/L Normal 16-63 [facility] Comment on above: Performed By: #### C MREP #### [facility] [address] [place] [address] Dr. Risa Patetrson Anion gap [Moles/Vol] 10.7 mmol/L Normal [facility] Comment on above: Performed By: #### C MREP #### [facility] [address] [place] [address] Dr. Risa Patterson AST [Catalytic activity/Vol] 23 U/L Normal 15-37 [facility] Comment on above: Performed By: #### C MREP #### [facility] [address] [place] [address] Dr. Risa Patterson Bilirubin [Mass/Vol] 0.2 mg/dL Normal 0.2-1.0 [facility] Comment on above: Performed By: #### C MREP #### [facility] [address] [place] [address] Dr. Risa Patterson Calcium [Mass/Vol] 8.5 mg/dL Normal 8.5-10.1 [facility] Comment on above: Performed By: #### C MREP #### [facility] [address] [place] [address] Dr. Risa Patterson Chloride [Moles/Vol] 109 mmol/L Critically high 98-107 [facility] Comment on above: Performed By: #### C MREP #### [facility] [address] [address] [address] Risa Patterson CO2 [Moles/Vol] 28.7 mmol/L Normal 21.0-32.0 [facility] Comment on above: Performed By: #### C MREP #### [facility] [address] [place] [address] Dr. Risa Patterson Creatinine [Mass/Vol] 1.05 mg/dL Normal 0.70-1.30 [facility] Comment on above: Performed By: #### C MREP #### [facility] [address] [place] [address] Dr. Risa Patterson EGFR-AF BRUNEIAN >60 Normal >=60 [facility] Comment on above: Performed By: #### C MREP #### [facility] [address] [place] [address] Dr. Risa Patterson EGFR-NON AF BRUNEIAN >60 Normal >=60 [facility] Comment on above: Performed By: #### C MREP #### [facility] [address] [place] [address] Dr. Risa Patterson Globulin (S) [Mass/Vol] 3.5 g/dL Normal [facility] Comment on above: Performed By: #### C MREP #### [facility] [address] [place] [address] Dr. Risa Patterson Glucose [Mass/Vol] 82 mg/dL Normal 74-106 [facility] Comment on above: Performed By: #### C MREP #### [facility] [address] [place] [address] Dr. Risa Patterson Potassium [Moles/Vol] 4.5 mmol/L Normal 3.5-5.1 [facility] Comment on above: Performed By: #### C MREP #### [facility] [address] [place] [address] Dr. Risa Patterson Protein [Mass/Vol] 6.3 g/dL Critically low 6.4-8.2 [facility] Comment on above: Performed By: #### C MREP #### [facility] [address] [address] [address] Risa Patterson Sodium [Moles/Vol] 144 mmol/L Normal 136-145 [facility] Comment on above: Performed By: #### C MREP #### [facility] [address] [address] [address] Risa Patterson Urea nitrogen [Mass/Vol] 16.0 mg/dL Normal 7.0-18.0 [facility] Comment on above: Performed By: #### C MREP #### [facility] [address] [address] [address] Risa Patterson Urea nitrogen/Creatinine [Mass ratio] 15.2 mg/mg Normal [facility] Comment on above: Performed By: #### C MREP #### [facility] [address] [place] [address] Dr. Risa Patterson SED RATE [facility] 2021 SED RATE 42 mm/hr Critically high <=20 [facility] Comment on above: Performed By: #### C MADM, BNP, BMP #### [facility] [address] [address] [address] Risa Patterson CBC W Auto Differential pane l (Bld)on 12-28-2021 Abs Immature Gran <0.10 k/uL [facility] Basophils (Bld) [#/Vol] 0.04 10*3/uL <0.11 k/uL [facility] Basophils/100 WBC (Bld) 0.7 % [facility] Differential cell count method Nom (Bld) Auto [facility] Eosinophils (Bld) [#/Vol] 0.30 10*3/uL <0.46 k/uL [facility] Eosinophils/100 WBC (Bld) 5.5 % [facility] Erythrocyte distribution width (RBC) [Ratio] 18.1 % High 11.5 - 15.0 % [facility] Hematocrit (Bld) [Volume fraction] 34.6 % Low 39.0 - 51.0 % [facility] Hemoglobin (Bld) [Mass/Vol] 10.9 g/dL Low 13.0 - 17.0 g/dL [facility] Immature Gran % 0.4 % [facility] Lymphocytes (Bld) [#/Vol] 0.95 10*3/uL Low 1.00 - 4.00 k/uL [facility] Lymphocytes/100 WBC (Bld) 17.4 % [facility] MCH (RBC) [Entitic mass] 31.3 pg 26.0 - 34.0 pg [facility] MCHC (RBC) [Mass/Vol] 31.5 g/dL 30.5 - 36.0 g/dL [facility] MCV (RBC) [Entitic vol] 99.4 fL 80.0 - 100.0 fL [facility] Monocytes (Bld) [#/Vol] 0.69 10*3/uL <0.87 k/uL [facility] Monocytes/100 WBC (Bld) 12.7 % [facility] Neutrophils (Bld) [#/Vol] 3.45 10*3/uL 1.45 - 7.50 k/uL [facility] Neutrophils/100 WBC (Bld) 63.3 % [facility] Nucleated RBC (Bld) [#/Vol] <0.01 k/uL [facility] Nucleated RBC/100 WBC (Bld) [Ratio] 0.0 /100 WBC [facility] Platelet mean volume (Bld) [Entitic vol] 10.0 fL 9.0 - 12.7 fL [facility] Platelets (Bld) [#/Vol] 230 10*3/uL 150 - 400 k/uL [facility] RBC (Bld) [#/Vol] 3.48 10*6/uL Low 4.20 - 6.0 0 m/uL [facility] WBC (Bld) [#/Vol] 5.45 10*3/uL 3.70 - 11.00 k/uL [facility] Comprehensive metabolic 2000 panelon 12-28-2021 Albumin [Mass/Vol] 3.5 g/dL Low 3.9 - 4.9 g/dL [facility] ALP [Catalytic activity/Vol] 69 U/L 38 - 113 U/L [facility] ALT [Catalytic activity/Vol] 23 U/L 10 - 54 U/L [facility] Anion gap [Moles/Vol] 6 mmol/L Low 9 - 18 mmol/L [facility] AST [Catalytic activity/Vol] 27 U/L 14 - 40 U/L [facility] Bilirubin [Mass/Vol] 0.4 mg/dL 0.2 - 1 .3 mg/dL [facility] Calcium [Mass/Vol] 9.2 mg/dL 8.5 - 10. 2 mg/dL [facility] Chloride [Moles/Vol] 110 mmol/L High 97 - 10 5 mmol/L [facility] CO2 [Moles/Vol] 27 mmol/L 22 - 30 mmol/L [facility] Creatinine [Mass/Vol] 1.05 mg/dL 0.73 - 1.22 mg/dL [facility] Estimated Glomerular Filtration Rate 81 mL/min/1.73m >=60 mL/min/1.73 m [facility] Glucose [Mass/Vol] 109 mg/dL High 74 - 99 mg/dL [facility] Potassium [Moles/Vol] 3.9 mmol/L 3.7 - 5.1 mmol/L [facility] Protein [Mass/Vol] 6.0 g/dL Low 6.3 - 8.0 g/dL [facility] Sodium [Moles/Vol] 143 mmol/L 136 - 144 mmol/L [facility] Urea nitrogen [Mass/Vol] 17 mg/dL 9 - 24 mg/dL [facility] LD LACTATE DEHYDROon 022 LDH [Catalytic activity/Vol] 270 U/L High 135 - 225 U/L [facility] CBC AUTO DIFFon 12-15-2021 BASO # 0.0 103/ul Normal 0.0-0.1 [facility] Comment on above: Performed By: #### C BC #### [facility] [address] [place] [address] Dr. Risa Patterson Basophils/100 WBC (Bld) 0.7 % Normal 0.2-2.0 [facility] Comment on above: Performed By: #### C BC #### [facility] [address] [address] [address] Risa Patterson EO # 0.2 103/ul Normal 0.0-0.7 [facility] Comment on above: Performed By: #### C BC #### [facility] [address] [place] [address] Dr. Risa Patterson Eosinophils/100 WBC (Bld) 3.6 % Normal 0.9-7.0 [facility] Comment on above: Performed By: #### C BC #### [facility] [address] [place] [address] Dr. Risa Patterson Erythrocyte distribution width (RBC) [Ratio] 17.4 % Critically high 11.0-15.0 [facility] Comment on above: Performed By: #### C BC #### [facility] [address] [place] [address] Dr. Risa Patterson Hematocrit (Bld) [Volume fraction] 36.2 % Critically low 42.0-54.0 [facility] Comment on above: Performed By: #### C BC #### [facility] [address] [place] [address] Dr. Risa Patterson Hemoglobin (Bld) [Mass/Vol] 11.3 g/dL Critically low 14.0-18.0 [facility] Comment on above: Performed By: #### C BC #### [facility] [address] [place] [address] Dr. Risa Patterson IG # 0.02 10e3/ul Normal 0.00-0.03 [facility] Comment on above: Performed By: #### C BC #### [facility] [address] [place] [address] Dr. Risa Patterson IG % 0.5 % Normal 0.0-0.5 [facility] Comment on above: Performed By: #### C BC #### [facility] [address] [place] [address] Dr. Risa Patterson LYMPH # 0.9 103/ul Critically low 1.2-3.8 [facility] Comment on above: Performed By: #### C BC #### [facility] [address] [place] [address] Dr. Risa Patterson Lymphocytes/100 WBC (Bld) 20.0 % Critically low 20.5-60.0 [facility] Comment on above: Performed By: #### C BC #### [facility] [address] [place] [address] Dr. Risa Patterson MANUAL DIFF REQ NO Normal [facility] Comment on above: Performed By: #### C BC #### [facility] [address] [place] [address] Dr. Risa Patterson MCH (RBC) [Entitic mass] 30.9 pg Normal 25.9-34.0 [facility] Comment on above: Performed By: #### C BC #### [facility] [address] [address] [address] Risa Patterson MCHC (RBC) [Mass/Vol] 31.2 g/dL Normal 29.9-35.2 [facility] Comment on above: Performed By: #### C BC #### [facility] [facility] [address] [address] [address] Risa Patterson MCV (RBC) [Entitic vol] 98.9 fL Critically high 80.0-94.0 [facility] Comment on above: Performed By: #### C BC #### [facility] [address] [place] [address] Dr. Risa Patterson MONO # 0.2 103/ul Critically low 0.3-0.8 [facility] Comment on above: Performed By: #### C BC #### [facility] [address] [place] [address] Dr. Risa Patterson Monocytes/100 WBC (Bld) 5.4 % Normal 1.7-12.0 [facility] Comment on above: Performed By: #### C BC #### [facility] [address] [place] [address] Dr. Risa Patterson NEUT # 3.1 103/ul Normal 1.4-6.5 [facility] Comment on above: Performed By: #### C BC #### [facility] [address] [place] [address] Dr. Risa Patterson Neutrophils/100 WBC (Bld) 69.8 % Normal 43.0-75.0 [facility] Comment on above: Performed By: #### C BC #### [facility] [address] [place] [address] Dr. Risa Patterson Platelet mean volume (Bld) [Entitic vol] 9.7 fL Normal 9.5-13.5 [facility] Comment on above: Performed By: #### C BC #### [facility] [address] [place] [address] Dr. Risa Patterson PLT 235 103/ul Normal 150-450 [facility] Comment on above: Performed By: #### C BC #### [facility] [address] [place] [address] Dr. Risa Patterson RBC 3.66 106/ul Critically low 4.70-6.10 [facility] Comment on above: Performed By: #### C BC #### [facility] [address] [place] [address] Dr. Risa Patterson WBC 4.4 103/ul Normal 4.0-11.0 [facility] Comment on above: Performed By: #### C BC #### [facility] [address] [place] [address] Dr. Risa Patterson FERRITINon 12-15-2021 Ferritin [Mass/Vol] 285.0 ng/mL Normal 26.0-388.0 [facility] Comment on above: Performed By: #### F ERR, VITB12 #### [facility] [address] [place] [address] Dr. Risa Patterson VITAMIN B12on 12-15-2021 Cobalamin (Vitamin B12) [Mass/Vol] 460.0 pg/mL Normal 193.0-986.0 [facility] Comment on above: Performed By: #### F ERR, VITB12 #### [facility] [address] [place] [address] Dr. Risa Patterson CBC AUTO DIFFon 11-29-2021 BASO # 0.0 103/ul Normal 0.0-0.1 [facility] Comment on above: Performed By: #### C MREP #### [facility] [address] [place] [address] Dr. Risa Patterson Basophils/100 WBC (Bld) 0.7 % Normal 0.2-2.0 [facility] Comment on above: Performed By: #### C MREP #### [facility] [address] [place] [address] Dr. Risa Patterson EO # 0.3 103/ul Normal 0.0-0.7 [facility] Comment on above: Performed By: #### C MREP #### [facility] [address] [place] [address] Dr. Risa Patterson Eosinophils/100 WBC (Bld) 6.9 % Normal 0.9-7.0 [facility] Comment on above: Performed By: #### C MREP #### [facility] [address] [place] [address] Dr. Risa Patterson Erythrocyte distribution width (RBC) [Ratio] 17.0 % Critically high 11.0-15.0 [facility] Comment on above: Performed By: #### C MREP #### [facility] [address] [place] [address] Dr. Risa Patterson Hematocrit (Bld) [Volume fraction] 35.4 % Critically low 42.0-54.0 [facility] Comment on above: Performed By: #### C MREP #### [facility] [address] [place] [address] Dr. Risa Patterson Hemoglobin (Bld) [Mass/Vol] 11.0 g/dL Critically low 14.0-18.0 [facility] Comment on above: Performed By: #### C MREP #### [facility] [address] [place] [address] Dr. Risa Patterson IG # 0.01 10e3/ul Normal 0.00-0.03 [facility] Comment on above: Performed By: #### C MREP #### [facility] [address] [place] [address] Dr. Risa Patterson IG % 0.2 % Normal 0.0-0.5 [facility] Comment on above: Performed By: #### C MREP #### [facility] [address] [place] [address] Dr. Risa Patterson LYMPH # 0.9 103/ul Critically low 1.2-3.8 [facility] Comment on above: Performed By: #### C MREP #### [facility] [address] [place] [address] Dr. Risa Patterson Lymphocytes/100 WBC (Bld) 19.5 % Critically low 20.5-60.0 [facility] Comment on above: Performed By: #### C MREP #### [facility] [address] [place] [address] Dr. Risa Patterson MANUAL DIFF REQ NO Normal [facility] Comment on above: Performed By: #### C MREP #### [facility] [address] [place] [address] Dr. Risa Patterson MCH (RBC) [Entitic mass] 30.5 pg Normal 25.9-34.0 [facility] Comment on above: Performed By: #### C MREP #### [facility] [address] [place] [address] Dr. Risa Patterson MCHC (RBC) [Mass/Vol] 31.1 g/dL Normal 29.9-35.2 [facility] Comment on above: Performed By: #### C MREP #### [facility] [address] [place] [address] Dr. Risa Patterson MCV (RBC) [Entitic vol] 98.1 fL Critically high 80.0-94.0 [facility] Comment on above: Performed By: #### C MREP #### [facility] [address] [place] [address] Dr. Risa Patterson MONO # 0.6 103/ul Normal 0.3-0.8 [facility] Comment on above: Performed By: #### C MREP #### [facility] [address] [place] [address] Dr. Risa Patterson Monocytes/100 WBC (Bld) 14.0 % Critically high 1.7-12.0 [facility] Comment on above: Performed By: #### C MREP #### [facility] [address] [place] [address] Dr. Risa Patterson NEUT # 2.6 103/ul Normal 1.4-6.5 [facility] Comment on above: Performed By: #### C MREP #### [facility] [address] [place] [address] Dr. Risa Patterson Neutrophils/100 WBC (Bld) 58.7 % Normal 43.0-75.0 [facility] Comment on above: Performed By: #### C MREP #### [facility] [address] [place] [address] Dr. Risa Patterson Platelet mean volume (Bld) [Entitic vol] 9.9 fL Normal 9.5-13.5 [facility] Comment on above: Performed By: #### C MREP #### [facility] [address] [place] [address] Dr. Risa Patterson PLT 200 103/ul Normal 150-450 [facility] Comment on above: Performed By: #### C MREP #### [facility] [address] [place] [address] Dr. Risa Patterson RBC 3.61 106/ul Critically low 4.70-6.10 [facility] Comment on above: Performed By: #### C MREP #### [facility] [address] [place] [address] Dr. Risa Patterson WBC 4.4 103/ul Normal 4.0-11.0 [facility] Comment on above: Performed By: #### C MREP #### [facility] [address] [place] [address] Dr. Risa Patterson PROF CHEM 8 (BAS METB)on Anion gap [Moles/Vol] 12.3 mmol/L Normal [facility] Comment on above: Performed By: #### C MADM, BNP, BMP #### [facility] [address] [place] [address] Dr. Risa Patterson Calcium [Mass/Vol] 8.9 mg/dL Normal 8.5-10.1 [facility] Comment on above: Performed By: #### C MADM, BNP, BMP #### [facility] [address] [place] [address] Dr. Risa Patterson Chloride [Moles/Vol] 109 mmol/L Critically high 98-107 [facility] Comment on above: Performed By: #### C MADM, BNP, BMP #### [facility] [address] [place] [address] Dr. Risa Patterson CO2 [Moles/Vol] 27.1 mmol/L Normal 21.0-32.0 [facility] Comment on above: Performed By: #### C MADM, BNP, BMP #### [facility] [address] [address] [address] Risa Patterson Creatinine [Mass/Vol] 1.04 mg/dL Normal 0.70-1.30 [facility] Comment on above: Performed By: #### C MADM, BNP, BMP #### [facility] [address] [address] [address] Risa Patterson EGFR-AF BRUNEIAN >60 Normal >=60 [facility] Comment on above: Performed By: #### C MADM, BNP, BMP #### [facility] [address] [address] [address] Risa Patterson EGFR-NON AF BRUNEIAN >60 Normal >=60 [facility] Comment on above: Performed By: #### C MADM, BNP, BMP #### [facility] [address] [address] [address] Risa Patterson Glucose [Mass/Vol] 112 mg/dL Critically high 74-106 [facility] Comment on above: Performed By: #### C MADM, BNP, BMP #### [facility] [address] [address] [address] Risa Patterson Potassium [Moles/Vol] 4.4 mmol/L Normal 3.5-5.1 [facility] Comment on above: Performed By: #### C MADM, BNP, BMP #### [facility] [address] [place] [address] Dr. Risa Patterson Sodium [Moles/Vol] 144 mmol/L Normal 136-145 [facility] Comment on above: Performed By: #### C MADM, BNP, BMP #### [facility] [address] [address] [address] Risa Patterson Urea nitrogen [Mass/Vol] 19.0 mg/dL Critically high 7.0-18.0 [facility] Comment on above: Performed By: #### C MADM, BNP, BMP #### [facility] [address] [place], [place] [address] Dr. Risa Patterson Urea nitrogen/Creatinine [Mass ratio] 18.3 mg/mg Normal [facility] Comment on above: Performed By: #### C MADM, BNP, BMP #### [facility] [address] [place], [place] [address] Dr. Risa Patterson TSHon 11-29-2021 TSH 1.618 uIU/mL Normal 0.358-3.740 [facility] Comment on above: Performed By: #### C MADM, BNP, BMP #### [facility] [address] [place], [place] [address] Dr. Risa Patterson ECHOCARDIO M/2D COMPLETEon 0 10-04-2021 ECHOCARDIO M/2D COMPLETE Patient: ELENA FELIX Exam Date: 10/04/2021 : 1960 Gender:M Ordering : NIKKIE TREJO Admission #: [id number] Family : DR SILVANA LUNDBERG M.D. Order #: [id number] CLICK HERE TO VIEW EXAM ECHOCARDIOGRAM REPORT [...] Area(A4C): 20.40 cm2 Left Atrium Systolic Volume(A2C): 64675 mm3 Left Atrium Systolic Volume(A4C): 05924 mm3 Mitral Valve MV E to A [...] M.D. on 10/04/2021 at 19:44 Normal [facility] PROF CHEM 8 (BAS METB)on Anion gap [Moles/Vol] 12.3 mmol/L Normal [facility] Comment on above: Performed By: #### C MADM, BNP, BMP #### [facility] [address] [address] [address] Risa Patterson Calcium [Mass/Vol] 9.3 mg/dL Normal 8.5-10.1 [facility] Comment on above: Performed By: #### C MADM, BNP, BMP #### [facility] [address] [address] [address] Risa Patterson Chloride [Moles/Vol] 105 mmol/L Normal 98-107 [facility] Comment on above: Performed By: #### C MADM, BNP, BMP #### [facility] [address] [address] [address] Risa Patterson CO2 [Moles/Vol] 28.2 mmol/L Normal 21.0-32.0 [facility] Comment on above: Performed By: #### C MADM, BNP, BMP #### [facility] [address] [place] [address] Dr. Risa Patterson Creatinine [Mass/Vol] 1.54 mg/dL Critically high 0.70-1.30 [facility] Comment on above: Performed By: #### C MADM, BNP, BMP #### [facility] [address] [address] [address] Risa Patterson EGFR-AF BRUNEIAN 56 mL/min/1.73m2 Critically low >=60 [facility] Comment on above: Performed By: #### C MADM, BNP, BMP #### [facility] [address] [address] [address] Risa Patterson EGFR-NON AF BRUNEIAN 46 mL/min/1.73m2 Critically low >=60 [facility] Comment on above: Performed By: #### C MADM, BNP, BMP #### [facility] [address] [address] [address] Risa Patterson Glucose [Mass/Vol] 86 mg/dL Normal 74-106 [facility] Comment on above: Performed By: #### C MADM, BNP, BMP #### [facility] [address] [address] [address] Risa Patterson Potassium [Moles/Vol] 4.5 mmol/L Normal 3.5-5.1 [facility] Comment on above: Performed By: #### C MADM, BNP, BMP #### [facility] [address] [place] [address] Dr. Risa Patterson Sodium [Moles/Vol] 141 mmol/L Normal 136-145 [facility] Comment on above: Performed By: #### C MADM, BNP, BMP #### [facility] [address] [place] [address] Dr. Risa Patterson Urea nitrogen [Mass/Vol] 18.0 mg/dL Normal 7.0-18.0 [facility] Comment on above: Performed By: #### C MADM, BNP, BMP #### [facility] [address] [place] [address] Dr. Risa Patterson Urea nitrogen/Creatinine [Mass ratio] 11.7 mg/mg Normal [facility] Comment on above: Performed By: #### C MADM, BNP, BMP #### [facility] [address] [place] [address] Dr. Risa Patterson BNPon 09-20-2021 Natriuretic peptide B (Bld) [Mass/Vol] 186.0 pg/mL Normal <=900.0 [facility] Comment on above: Performed By: #### C MADM, BNP, BMP #### [facility] [address] [place] [address] Dr. Risa Patterson CARDIAC ALICIA 3-6on 2 CK [Catalytic activity/Vol] 133 U/L Normal 39-308 [facility] Comment on above: Performed By: #### C MREP #### [facility] [address] [place] [address] Dr. Risa Patterson CK.MB [Mass/Vol] 1.54 ng/mL Normal <=3.60 [facility] Comment on above: Performed By: #### C MREP #### [facility] [address] [place] [address] Dr. Risa Patterson HSTROP 11.9 pg/mL Normal 4.0-76.1 [facility] Comment on above: Result Comment: CUT- OFF POINTS HAVE BEEN ESTABLISHED BASED ON THE FOURTH UNIVERSAL DEFINITIONS OF MYOCARDIAL INFARCTION. THE UPPER REFERENCE LIMIT (URL) OF TROPONIN, DEFINED THE 99TH PERCENTILE OF cTnI DISTRIBUTION IN A REFERENCE POPULATION, HAS BEEN CONFIRMED THE DECISION THRESHOLD FOR DC DIAGNOSIS. Performed By: #### C MREP #### [facility] [address] [place] [address] Dr. Risa Patterson CARDIAC ALICIA ADMITon 022 CK [Catalytic activity/Vol] 136 U/L Normal 39-308 [facility] Comment on above: Performed By: #### C MADM, BNP, BMP #### [facility] [address] [place] [address] Dr. Risa Patterson CK.MB [Mass/Vol] 1.37 ng/mL Normal <=3.60 [facility] Comment on above: Performed By: #### C MADM, BNP, BMP #### [facility] [address] [place] [address] Dr. Risa Patterson HSTROP 12.1 pg/mL Normal 4.0-76.1 [facility] Comment on above: Result Comment: CUT- OFF POINTS HAVE BEEN ESTABLISHED BASED ON THE FOURTH UNIVERSAL DEFINITIONS OF MYOCARDIAL INFARCTION. THE UPPER REFERENCE LIMIT (URL) OF TROPONIN, DEFINED THE 99TH PERCENTILE OF cTnI DISTRIBUTION IN A REFERENCE POPULATION, HAS BEEN CONFIRMED THE DECISION THRESHOLD FOR DC DIAGNOSIS. Performed By: #### C MADM, BNP, BMP #### [facility] [address] [place] [address] Dr. Risa Patterson DUC 129 ng/mL Critically high 16-96 [facility] Comment on above: Performed By: #### C MADM, BNP, BMP #### [facility] [address] [place] [address] Dr. Risa Patterson CBC AUTO DIFFon 09-20-2021 BASO # 0.1 103/ul Normal 0.0-0.1 [facility] Comment on above: Performed By: #### C MREP #### [facility] [address] [place] [address] Dr. Risa Patterson Basophils/100 WBC (Bld) 0.8 % Normal 0.2-2.0 [facility] Comment on above: Performed By: #### C MREP #### [facility] [address] [place] [address] Dr. Risa Patterson EO # 0.5 103/ul Normal 0.0-0.7 [facility] Comment on above: Performed By: #### C MREP #### [facility] [address] [place] [address] Dr. Risa Patterson Eosinophils/100 WBC (Bld) 5.1 % Normal 0.9-7.0 [facility] Comment on above: Performed By: #### C MREP #### [facility] [address] [place] [address] Dr. Risa Patterson Erythrocyte distribution width (RBC) [Ratio] 14.5 % Normal 11.0-15.0 [facility] Comment on above: Performed By: #### C MREP #### [facility] [address] [place] [address] Dr. Risa Patterson Hematocrit (Bld) [Volume fraction] 40.7 % Critically low 42.0-54.0 [facility] Comment on above: Performed By: #### C MREP #### [facility] [address] [place] [address] Dr. Risa Patterson Hemoglobin (Bld) [Mass/Vol] 12.8 g/dL Critically low 14.0-18.0 [facility] Comment on above: Performed By: #### C MREP #### [facility] [address] [place] [address] Dr. Risa Patterson IG # 0.05 10e3/ul Critically high 0.00-0.03 [facility] Comment on above: Performed By: #### C MREP #### [facility] [address] [place] [address] Dr. Risa Patterson IG % 0.5 % Normal 0.0-0.5 [facility] Comment on above: Performed By: #### C MREP #### [facility] [address] [place] [address] Dr. Risa Patterson LYMPH # 1.7 103/ul Normal 1.2-3.8 [facility] Comment on above: Performed By: #### C MREP #### [facility] [address] [address] [address] Risa Patterson Lymphocytes/100 WBC (Bld) 15.8 % Critically low 20.5-60.0 [facility] Comment on above: Performed By: #### C MREP #### [facility] [address] [place] [address] Dr. Risa Patterson MANUAL DIFF REQ NO Normal [facility] Comment on above: Performed By: #### C MREP #### [facility] [address] [address] [address] Risa Patterson MCH (RBC) [Entitic mass] 30.3 pg Normal 25.9-34.0 [facility] Comment on above: Performed By: #### C MREP #### [facility] [address] [place] [address] Dr. Risa Patterson MCHC (RBC) [Mass/Vol] 31.4 g/dL Normal 29.9-35.2 [facility] Comment on above: Performed By: #### C MREP #### [facility] [address] [place] [address] Dr. Risa Patterson MCV (RBC) [Entitic vol] 96.4 fL Critically high 80.0-94.0 [facility] Comment on above: Performed By: #### C MREP #### [facility] [address] [place] [address] Dr. Risa Patterson MONO # 1.1 103/ul Critically high 0.3-0.8 [facility] Comment on above: Performed By: #### C MREP #### [facility] [address] [place] [address] Dr. Risa Patterson Monocytes/100 WBC (Bld) 10.7 % Normal 1.7-12.0 [facility] Comment on above: Performed By: #### C MREP #### [facility] [address] [place] [address] Dr. Risa Patterson NEUT # 7.1 103/ul Critically high 1.4-6.5 [facility] Comment on above: Performed By: #### C MREP #### [facility] [address] [address] [address] Risa Patterson Neutrophils/100 WBC (Bld) 67.1 % Normal 43.0-75.0 [facility] Comment on above: Performed By: #### C MREP #### [facility] [address] [address] [address] Risa Patterson Platelet mean volume (Bld) [Entitic vol] 9.5 fL Normal 9.5-13.5 [facility] Comment on above: Performed By: #### C MREP #### [facility] [address] [address] [address] Risa Patterson PLT 317 103/ul Normal 150-450 [facility] Comment on above: Performed By: #### C MREP #### [facility] [address] [place] [address] Dr. Risa Patterson RBC 4.22 106/ul Critically low 4.70-6.10 [facility] Comment on above: Performed By: #### C MREP #### [facility] [address] [place] [address] Dr. Risa Patterson WBC 10.6 103/ul Normal 4.0-11.0 [facility] Comment on above: Performed By: #### C MREP #### [facility] [address] [place] [address] Dr. Risa Patterson CTA CHEST WO W [...] MAJOR REA Date: 2021-09-20 08:07 Normal [facility] Covid-19 PCR (CVDTB)on 08-23 SARS-CoV-2 (COVID-19) RNA SAMMY+probe Ql (Unsp spec) Not detected Normal NOT DETECTED [facility] Comment on above: Result Comment: When [...] for this test is supported by the [place] of [employer] and Human Service's declaration that [...] By: #### C MADM, BNP, BMP #### [facility] [address] [place] [address] Dr. Risa Patterson INFLUENZA A AND B AGon 09-20 [facility] SEE BELOW Normal [facility] Comment on above: Result Comment: Nega tive for Flu A protein angiten. Infection due to Flu A cannot be ruled out. Flu A angiten in the sample may be below the detection limit of the test. Performed By: #### C MREP #### [facility] [address] [address] [address] Risa Patterson INFLUBNEG SEE BELOW Normal [facility] Comment on above: Result Comment: Nega tive for Flu B protein antigen. Infection due to Flu B cannot be ruled out. Flu B antigen in the sample may be below the detection limit of the test. Performed By: #### C MREP #### [facility] [address] [place] [address] Dr. Risa Patterson INFLUENZA A AG Negative Normal NEGATIVE SEE COMMENT [facility] Comment on above: Performed By: #### C MREP #### [facility] [address] [place] [address] Dr. Risa Patterson INFLUENZA B AG Negative Normal NEGATIVE SEE COMMENT [facility] Comment on above: Performed By: #### C MREP #### [facility] [address] [place] [address] Dr. Risa Patterson INTERNAL CONTROLS Within Normal Limits Normal Wi thin Normal Limits [facility] Comment on above: Performed By: #### C MREP #### [facility] [address] [place] [address] Dr. Risa Patterson PROF CHEM 8 (BAS METB)on Anion gap [Moles/Vol] 15.5 mmol/L Normal [facility] Comment on above: Performed By: #### C MADM, BNP, BMP #### [facility] [address] [place] [address] Dr. Risa Patterson Calcium [Mass/Vol] 9.0 mg/dL Normal 8.5-10.1 [facility] Comment on above: Performed By: #### C MADM, BNP, BMP #### [facility] [address] [place] [address] Dr. Risa Patterson Chloride [Moles/Vol] 104 mmol/L Normal 98-107 [facility] Comment on above: Performed By: #### C MADM, BNP, BMP #### [facility] [address] [place] [address] Dr. Risa Patterson CO2 [Moles/Vol] 25.2 mmol/L Normal 21.0-32.0 [facility] Comment on above: Performed By: #### C MADM, BNP, BMP #### [facility] [address] [address] [address] Risa Patterson Creatinine [Mass/Vol] 1.27 mg/dL Normal 0.70-1.30 [facility] Comment on above: Performed By: #### C MADM, BNP, BMP #### [facility] [address] [address] [address] Risa Patterson EGFR-AF BRUNEIAN >60 Normal >=60 [facility] Comment on above: Performed By: #### C MADM, BNP, BMP #### [facility] [address] [address] [address] Risa Patterson EGFR-NON AF BRUNEIAN 58 mL/min/1.73m2 Critically low >=60 [facility] Comment on above: Performed By: #### C MADM, BNP, BMP #### [facility] [address] [address] [address] Risa Patterson Glucose [Mass/Vol] 138 mg/dL Critically high 74-106 T [facility] Comment on above: Performed By: #### C MADM, BNP, BMP #### [facility] [address] [address] [address] Risa Patterson Potassium [Moles/Vol] 3.7 mmol/L Normal 3.5-5.1 [facility] Comment on above: Performed By: #### C MADM, BNP, BMP #### [facility] [address] [place] [address] Dr. Risa Patterson Sodium [Moles/Vol] 141 mmol/L Normal 136-145 [facility] Comment on above: Performed By: #### C MADM, BNP, BMP #### [facility] [address] [address] [address] Risa Patterson Urea nitrogen [Mass/Vol] 19.0 mg/dL Critically high 7.0-18.0 [facility] Comment on above: Performed By: #### C MADM, BNP, BMP #### [facility] [address] [address] [address] Risa Patterson Urea nitrogen/Creatinine [Mass ratio] 15.0 mg/mg Normal [facility] Comment on above: Performed By: #### C MADM, BNP, BMP #### [facility] [address] [address] [address] Risa Patterson XR CHEST 1 Von [...] by: ANGELES NASSAR Date: 2021-09-20 06:53 Normal [facility] US ASHLEY DOP LEG LTon 09-15-19 [...] Findings called to ordering provider by the wood machinist at time of imaging. Electronically authenticated by: ASHER SOLANO Date: 2021-09-14 14:25 Normal [facility] Cardiovascular Lab Reporton 06-25-2021 Cardiovascular Lab Report [facility] Patient Name: Elena Felix [facility] MR #: [id number] Physician: Nikkie Department of MD [facility] Service Date: 06/23/2021 Division of Birthdate: 1960 Cardiology Room #: [facility] Services [address] [address] Cardiovascular Laboratory Report Procedures: 1. Right heart [...] Trejo MD Date Trans: 06/25/2021 03:01 P/ [id number] cc: Renato Lundberg M.D. [address] [place] [address] [address] [facility] [address] [facility] Vital Signs Date Time Vital Sign Value Performing Clinician Facility 06-10-2024 09:30-0500 Diastolic blood pressure 60 mm[Hg] [facility] 06-10-2024 09:30-0500 Heart rate 63 /min [facility] 06-10-2024 09:30-0500 SaO2% (BldA) [Mass fraction] 97 % [facility] 06-10-2024 09:30-0500 Systolic blood pressure 108 mm[Hg] [facility] 05-13-2024 10:41-0500 Body height 185.42 cm [facility] 05-13-2024 10:41-0500 Body mass index (BMI) [Ratio] 42.2 kg/m2 [facility] 05-13-2024 10:41-0500 Body weight 145.14 kg [facility] 05-13-2024 10:41-0500 Diastolic blood pressure 70 mm[Hg] [facility] 05-13-2024 10:41-0500 Heart rate 69 /min [facility] 05-13-2024 10:41-0500 Systolic blood pressure 104 mm[Hg] [facility] 02-08-2024 09:46-0400 Body height 185 cm Alysha Emanuel MD Work Phone: [facility] 02-08-2024 09:46-0400 Body mass index (BMI) [Ratio] 40.17 kg/m2 Alysha Emanuel MD Work Phone: [facility] 02-08-2024 09:46-0400 Body weight 137.5 kg Alysha Emanuel MD Work Phone: [facility] 02-08-2024 09:46-0400 Diastolic blood pressure 80 mm[Hg] Alysha Emanuel MD Work Phone: [facility] 02-08-2024 09:46-0400 Heart rate 73 /min Alysha Emanuel MD Work Phone: [facility] 02-08-2024 09:46-0400 Systolic blood pressure 124 mm[Hg] Alysha Emanuel MD Work Phone: [facility] 01-04-2024 10:47-0400 Blood Pressure Location Jerrod BELL [facility] 01-04-2024 10:47-0400 Diastolic blood pressure 78 mm[Hg] Jerrod BELL [facility] 01-04-2024 10:47-0400 Systolic blood pressure 118 mm[Hg] Jerrod BELL [facility] 12-04-2023 09:03-0400 Body height 188 cm Merly Marti MD Work Phone: [facility] 12-04-2023 09:03-0400 Body mass index (BMI) [Ratio] 39.19 kg/m2 Merly Marti MD Work Phone: [facility] 12-04-2023 09:03-0400 Body temperature 97.3 [degF] Merly Marti MD Work Phone: [facility] 12-04-2023 09:03-0400 Body weight 138.5 kg Merly Marti MD Work Phone: [facility] 12-04-2023 09:03-0400 Diastolic blood pressure 65 mm[Hg] Merly Marti MD Work Phone: [facility] 12-04-2023 09:03-0400 Heart rate 97 /min Merly Marti MD Work Phone: [facility] 12-04-2023 09:03-0400 Respiratory rate 16 /min Merly Marti MD Work Phone: [facility] 12-04-2023 09:03-0400 SaO2% (BldA) [Mass fraction] 97 % Merly Marti MD Work Phone: [facility] 12-04-2023 09:03-0400 Systolic blood pressure 97 mm[Hg] Merly Marti MD Work Phone: [facility] 10-01-2023 09:11-0400 Body height 185.42 cm MD Silvana Lundberg Work Phone: [facility] 10-01-2023 09:11-0400 Body mass index (BMI) [Ratio] 38.9 kg/m2 MD Silvana Lundberg Work Phone: [facility] 10-01-2023 09:11-0400 Body weight 133.8 kg MD Silvana Lundberg Work Phone: [facility] 10-01-2023 09:11-0400 Diastolic blood pressure 76 mm[Hg] MD Silvana Lundberg Work Phone: [facility] 10-01-2023 09:11-0400 Heart rate 103 /min MD Silvana Lundberg Work Phone: [facility] 10-01-2023 09:11-0400 Systolic blood pressure 117 mm[Hg] MD Silvana Lundberg Work Phone: [facility] 08-31-2023 11:00-0400 Body height 185.42 cm [facility] 08-31-2023 11:00-0400 Body mass index (BMI) [Ratio] 39.4 kg/m2 [facility] 08-31-2023 11:00-0400 Body weight 135.62 kg [facility] 08-31-2023 11:00-0400 Diastolic blood pressure 74 mm[Hg] [facility] 08-31-2023 11:00-0400 Heart rate 84 /min [facility] 08-31-2023 11:00-0400 Systolic blood pressure 125 mm[Hg] [facility] 07-16-2023 10:00-0400 Body temperature 98.42 [degF] Jerrod BELL [facility] 07-16-2023 10:00-0400 Diastolic blood pressure 78 mm[Hg] Jerrodfranky BELL [facility] 07-16-2023 10:00-0400 Heart rate 95 /min Jerrodfranky BELL [facility] 07-16-2023 10:00-0400 Respiratory rate 16 /min Jerrod BELL [facility] 07-16-2023 10:00-0400 Systolic blood pressure 109 mm[Hg] Jerrodfranky BELL [facility] 07-06-2023 09:51-0400 Body height 185.42 cm PHYSICIAN NO [facility] 07-06-2023 09:51-0400 Body mass index (BMI) [Ratio] 39.2 kg/m2 PHYSICIAN NO [facility] 07-06-2023 09:51-0400 Body weight 134.71 kg PHYSICIAN NO [facility] 07-06-2023 09:51-0400 Diastolic blood pressure 72 mm[Hg] PHYSICIAN NO [facility] 07-06-2023 09:51-0400 Heart rate 88 /min PHYSICIAN NO [facility] 07-06-2023 09:51-0400 SaO2% (BldA) [Mass fraction] 98 % PHYSICIAN NO [facility] 07-06-2023 09:51-0400 Systolic blood pressure 108 mm[Hg] PHYSICIAN NO [facility] 02-05-2023 12:48-0400 Body weight 129.73 kg Austin Jose MD Work Phone: [facility] 11-17-2022 10:05-0400 Diastolic blood pressure 74 mm[Hg] Berta Francis MD Work Phone: [facility] 11-17-2022 10:05-0400 Heart rate 62 /min Berta Francis MD Work Phone: [facility] 11-17-2022 10:05-0400 Systolic blood pressure 107 mm[Hg] Berta Francis MD Work Phone: [facility] 11-17-2022 09:58-0400 Body weight 132 kg Berta Francis MD Work Phone: [facility] 11-17-2022 09:58-0400 SaO2% (BldA) [Mass fraction] 97 % Berta Francis MD Work Phone: [facility] 10-31-2022 11:00-0400 Body height 185.42 cm Silvana Lundberg Other [employer] Other 10-31-2022 11:00-0400 Body mass index (BMI) [Ratio] 39.58 kg/m2 Silvana Lundberg Other [employer] Other 10-31-2022 11:00-0400 Body temperature 97.9 [degF] Silvana Lundberg Other [employer] Other 10-31-2022 11:00-0400 Body weight 136.08 kg Silvana Lundberg Other [employer] Other 10-31-2022 11:00-0400 Diastolic blood pressure 49 mm[Hg] Silvana Lundberg Other [employer] Other 10-31-2022 11:00-0400 Systolic blood pressure 91 mm[Hg] Silvana Lundberg Other [employer] Other 10-16-2022 14:45-0400 Body height 185.42 cm Silvana Lundberg Other [employer] Other 10-16-2022 14:45-0400 Body mass index (BMI) [Ratio] 38.39 kg/m2 Silvana Tamika Other [employer] Other 10-16-2022 14:45-0400 Body weight 132 kg Silvana Tamika Other [employer] Other 10-16-2022 14:45-0400 Diastolic blood pressure 62 mm[Hg] Silvana Tamika Other [employer] Other 10-16-2022 14:45-0400 Systolic blood pressure 89 mm[Hg] Silvana Tamika Other [employer] Other 10-06-2022 08:23-0400 Body height 188 cm Anna Palacios APRN.PATHOLOGY SPECIALIST Work Phone: [facility] 10-06-2022 08:23-0400 Body weight 131.54 kg Anna Palacios APRN.PATHOLOGY SPECIALIST Work Phone: [facility] 10-06-2022 08:23-0400 Diastolic blood pressure 59 mm[Hg] Anna Palacios APRN.PATHOLOGY SPECIALIST Work Phone: [facility] 10-06-2022 08:23-0400 Heart rate 83 /min Anna Palacios APRN.PATHOLOGY SPECIALIST Work Phone: [facility] 10-06-2022 08:23-0400 SaO2% (BldA) [Mass fraction] 95 % Anna Palacios APRN.PATHOLOGY SPECIALIST Work Phone: [facility] 10-06-2022 08:23-0400 Systolic blood pressure 106 mm[Hg] Anna Palacios APRN.PATHOLOGY SPECIALIST Work Phone: [facility] 08-16-2022 08:14-0400 Diastolic blood pressure 78 mm[Hg] Berta Francis MD Work Phone: [facility] 08-16-2022 08:14-0400 Systolic blood pressure 114 mm[Hg] Berta Francis MD Work Phone: [facility] 08-16-2022 08:10-0400 Body height 188 cm Berta Francis MD Work Phone: [facility] 08-16-2022 08:10-0400 Body weight 132.36 kg Berta Francis MD Work Phone: [facility] 08-16-2022 08:10-0400 Heart rate 89 /min Berta Francis MD Work Phone: [facility] 08-16-2022 08:10-0400 SaO2% (BldA) [Mass fraction] 96 % Berta Francis MD Work Phone: [facility] 05-08-2022 10:00-0500 Body height 185.42 cm Silvana Lundberg Other [employer] Other 05-08-2022 10:00-0500 Body mass index (BMI) [Ratio] 39.71 kg/m2 Silvana Lundberg Other [employer] Other 05-08-2022 10:00-0500 Body weight 136.53 kg Silvana Lundberg Other [employer] Other 05-08-2022 10:00-0500 Diastolic blood pressure 72 mm[Hg] Silvana Lundberg Other [employer] Other 05-08-2022 10:00-0500 SaO2% (BldA) [Mass fraction] 97 % Silvana Lundberg Other [employer] Other 05-08-2022 10:00-0500 Systolic blood pressure 112 mm[Hg] Silvana Lundberg Other [employer] Other 01-18-2022 09:54-0400 Body height 190.5 cm Merly Marti MD Work Phone: [facility] 01-18-2022 09:54-0400 Body temperature 97.3 [degF] Merly Marti MD Work Phone: [facility] 01-18-2022 09:54-0400 Body weight 131.91 kg Merly Marti MD Work Phone: [facility] 01-18-2022 09:54-0400 Diastolic blood pressure 71 mm[Hg] Merly Marti MD Work Phone: [facility] 01-18-2022 09:54-0400 Heart rate 92 /min Merly Marti MD Work Phone: [facility] 01-18-2022 09:54-0400 Respiratory rate 18 /min Merly Marti MD Work Phone: [facility] 01-18-2022 09:54-0400 SaO2% (BldA) [Mass fraction] 97 % Merly Marti MD Work Phone: [facility] 01-18-2022 09:54-0400 Systolic blood pressure 122 mm[Hg] Merly Marti MD Work Phone: [facility] 12-28-2021 14:38-0400 Body height 190.5 cm Merly Marti MD Work Phone: [facility] 12-28-2021 14:38-0400 Body temperature 97.2 [degF] Merly Marti MD Work Phone: [facility] 12-28-2021 14:38-0400 Body weight 135.53 kg Merly Marti MD Work Phone: [facility] 12-28-2021 14:38-0400 Diastolic blood pressure 66 mm[Hg] Merly Marti MD Work Phone: [facility] 12-28-2021 14:38-0400 Heart rate 72 /min Merly Marti MD Work Phone: [facility] 12-28-2021 14:38-0400 Respiratory rate 18 /min Merly Marti MD Work Phone: [facility] 12-28-2021 14:38-0400 SaO2% (BldA) [Mass fraction] 96 % Merly Marti MD Work Phone: [facility] 12-28-2021 14:38-0400 Systolic blood pressure 127 mm[Hg] Merly Marti MD Work Phone: [facility] 09-21-2021 15:35-0400 Body height 190.5 cm Merly Marti MD Work Phone: [facility] 09-21-2021 15:35-0400 Body temperature 97.2 [degF] Merly Marti MD Work Phone: [facility] 09-21-2021 15:35-0400 Body weight 132.63 kg Merly Marti MD Work Phone: [facility] 09-21-2021 15:35-0400 Diastolic blood pressure 73 mm[Hg] Merly Marti MD Work Phone: [facility] 09-21-2021 15:35-0400 Heart rate 91 /min Merly Marti MD Work Phone: [facility] 09-21-2021 15:35-0400 Respiratory rate 16 /min Merly Marti MD Work Phone: [facility] 09-21-2021 15:35-0400 SaO2% (BldA) [Mass fraction] 94 % Merly Marti MD Work Phone: [facility] 09-21-2021 15:35-0400 Systolic blood pressure 122 mm[Hg] Merly Marti MD Work Phone: [facility] Encounters Encounter Date Encounter Type Care Provider Facility Start: 06-10-2024 End: 06-10-2024 [facility] Start: 06-10-2024 End: 06-10-2024 ambulatory Frederic Zamarripa Facility:[facility] Start: 06-10-2024 End: 06-10-2024 Patient encounter procedure [facility]ician [facility] Work Phone: Start: 05-30-2024 Non-patient [facility]: Start: 05-28-2024 Non-patient / Non-visit [facility] Work Phone: Start: 05-13-2024 End: 05-13-2024 ambulatory [facility] Work Phone: Start: 05-13-2024 End: 05-13-2024 Patient encounter procedure [facility] ysician [facility] Work Phone: Start: 04-09-2024 End: 04-09-2024 ambulatory Alysha Emanuel MD Work Phone: Endocrinology Comment on above: New injection Start: 04-07-2024 End: 04-07-2024 Telephone encounter Alysha Emanule MD Work Phone: Endocrinology Comment on above: Medication Problem ( Teriparatide 20 mcg/dose (600mcg/2.4mL) Start: 04-07-2024 Non-patient / Non-visit [facility] Work Phone: Start: 03-17-2024 Non-patient / Non-visit [facility] Work Phone: Start: 03-17-2024 End: 03-17-2024 ambulatory SILVANA LUNDBERG Facility:[facility] Start: 02-12-2024 End: 02-12-2024 ambulatory SILVANA LUNDBERG Facility:[facility] Start: 02-08-2024 End: 02-08-2024 ambulatory SILVANA LUNDBERG Facility:[facility] Start: 02-08-2024 End: 02-08-2024 Patient encounter procedure [...] Start: 01-04-2024 End: 01-04-2024 ambulatory Jerrod BELL Facility:[facility] Start: 01-04-2024 End: 01-04-2024 Patient encounter procedure Jerrod BELL [facility] Start: 12-25-2023 End: 12-25-2023 ambulatory Jerrod BELL [facility] Start: 12-25-2023 End: 12-25-2023 Patient encounter procedure Jerrod BELL [facility] Start: 12-04-2023 End: 12-04-2023 ambulatory Merly Marti MD Work Phone: Hematology/Oncology Comment on above: History of DVT (deep vein thrombosis) (Primary Dx); Monoclonal gammopathy Start: 12-04-2023 End: 12-04-2023 Patient encounter procedure Merly Marti MD Work Phone: Hematology/Oncology Start: 11-29-2023 End: 11-29-2023 Office outpatient visit 15 minutes Misty Wallace MD Work Phone: [facility] [place] Comment on above: Closed fracture of h ip, left, with delayed healing, subsequent encounter (Primary Dx) Start: 11-29-2023 End: 11-29-2023 ambulatory MISTY WALLACE Facility:[facility] Start: 11-29-2023 End: 11-29-2023 Subsequent hospital visit by physician [facility] Radiology Comment on above: Closed fracture of h ip, left, with delayed healing, subsequent encounter [S72.002G] Start: 11-07-2023 End: 11-07-2023 ambulatory SILVANA LUNDBERG Facility:[facility] Start: 10-01-2023 Telephone encounter Alysha Emanuel MD Work Phone: Endocrinology Start: 10-01-2023 End: 10-01-2023 ambulatory MD Silvana Lundberg Work Phone: [facility] Work Phone: Start: 10-01-2023 End: 10-01-2023 Patient encounter procedure MD Silvana Lundberg Work Phone: [facility] Work Phone: Start: 09-28-2023 Telephone encounter Misty dumont MD Work Phone: [facility] Comment on above: Results (Spoke with patient regarding his PTH results. ) Start: 09-27-2023 Non-patient / Non-visit MD Jaqueline Lundberg Work Phone: [facility] Work Phone: Start: 09-27-2023 End: 09-27-2023 [facility] Start: 09-27-2023 End: 09-27-2023 Office outpatient new 45 minutes Misty Wallace MD Work Phone: [facility] Comment on above: Closed fracture of h ip, left, with delayed healing, subsequent encounter (Primary Dx); Ankylosing spondylitis of multiple sites in spine ([facility]); Acute deep vein thrombosis (DVT) of femoral vein of both lower extremities ([facility]); Morbid obesity with BMI of 40.0-44.9, adult ([facility]) Start: 09-27-2023 End: 09-27-2023 ambulatory [facility] Facility:[facility] Start: 09-27-2023 End: 09-27-2023 Subsequent hospital visit by physician X[facility] Radiology Comment on above: Pain [R52] Start: 2023 End: 2023 Patient encounter procedure MD [facility] Lundberg [facility] [address] Work Phone: Start: 2023 End: 2023 ambulatory Safia Enrique Facility:[facility] Start: 08-31-2023 End: 08-31-2023 ambulatory [facility] Work Phone: Start: 08-31-2023 End: 08-31-2023 Patient encounter procedure [facility] Work Phone: Start: 08-02-2023 Non-patient / Non-visit [facility] Work Phone: Start: 07-31-2023 End: 07-31-2023 ambulatory ANNA A PETITTI Not Available Start: 07-17-2023 End: 07-17-2023 ambulatory ANNA A PETITTI Not Available Start: 07-16-2023 End: 07-16-2023 ambulatory Jerrod BELL Facility:[facility] Start: 07-16-2023 End: 07-16-2023 Patient encounter procedure Jerrod BELL [facility] Start: 07-06-2023 End: 07-06-2023 ambulatory PHYSICIAN NO [facility] Work Phone: Start: 07-06-2023 End: 07-06-2023 Patient encounter procedure PHYSICIAN NO [facility] Work Phone: Start: 06-20-2023 Non-patient / Non-visit PHYSIC TJ NO [facility] Work Phone: Start: 05-16-2023 End: 05-16-2023 ambulatory SILVANA LUNDBERG Facility:[facility] Start: 05-03-2023 End: 05-03-[address] [facility] Work Phone: Start: 05-03-2023 End: 05-03-2023 Patient encounter procedure PHYSICIAN NO [facility] [address] Work Phone: Start: 03-29-2023 (Televisit) Televisit Silvana Samson [facility] Start: 03-29-2023 End: 03-29-2023 ambulatory Silvana Lundberg Other [employer] Other Start: 02-19-2023 End: 02-19-2023 ambulatory Silvana Lundberg Other [employer] Other Start: 02-19-2023 Telephone encounter Silvana Lundberg [facility] Start: 02-05-2023 End: 02-05-2023 Patient encounter procedure Austin Jose MD Work Phone: Cardiology Comment on above: Shortness of breath (Primary Dx); Near syncope Start: 12-27-2022 End: 12-27-2022 ambulatory Silvana Lundberg Other [employer] Other Start: 12-27-2022 Nursing evaluation o f patient and report Silvana Lundberg [facility] Start: 12-11-2022 End: 12-11-[address] [facility] Work Phone: Start: 12-11-2022 End: 12-11-2022 Patient encounter procedure PHYSICIAN NO [facility] [address] Work Phone: Start: 11-17-2022 End: 11-17-2022 Patient encounter procedure Berta Francis MD Work Phone: Cardiology Comment on above: SOB (shortness of br eath) (Primary Dx); Coronary artery disease involving [place] coronary artery of [place] heart without angina pectoris; Palpitations Start: 11-07-2022 End: 11-07-2022 ambulatory Silvana Lundberg Other [employer] Other Start: 11-07-2022 Nursing evaluation o f patient and report Silvana Lundberg [facility] Start: 11-07-2022 Telephone encounter Silvana Lundberg [facility] Start: 11-02-2022 End: 11-02-2022 ambulatory Silvana Lundberg Other [facility] [employer] Other Start: 11-02-2022 Telephone encounter Silvana Lundberg [facility] Start: 10-31-2022 Office outpatient vi sit 15 minutes Silvana Lundberg [facility] Start: 10-31-2022 End: 10-31-2022 ambulatory MD Silvana Lundberg Work Phone: [facility] Work Phone: Start: 10-31-2022 End: 10-31-2022 Departed Referred MD Silvana Lundberg Work Phone: [facility] [address] [place] Work Phone: Start: 10-17-2022 Orders Only Berta Francis MD Work Phone: Cardiology Comment on above: Dilated cardiomyopat hy (HCC) (Primary Dx) 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 sites in spine (HCC) (Primary Dx) Results (Abnormal La bs) Start: 10-16-2022 Office outpatient vi sit 25 minutes Silvana Lundberg [facility] Start: 10-16-2022 End: 10-16-2022 ambulatory Emg 1000) Work Phone: Neurology Comment on above: EMG Start: 10-16-2022 End: 10-16-2022 Patient encounter procedure Emg 1 Neur Main (Max Weight: 1000) Work Phone: [facility] Start: 10-12-2022 Telephone encounter Anna carrasco SALES AND LEASING AGENT.PATHOLOGY SPECIALIST Work Phone: Neurology Comment on above: Results (Abnormal la bs) Start: 10-06-2022 End: 10-06-2022 Patient encounter procedure Anna Palacios SALES AND LEASING AGENT.PATHOLOGY SPECIALIST Work Phone: Neurology Comment on above: Disturbance of skin sensation (Primary Dx); Lightheadedness; Change in blood pressure; Orthostatic hypotension; Tremulousness Start: 10-04-2022 End: 10-04-2022 Subsequent hospital visit by physician [facility] Work Phone: Molecular Imaging Comment on above: Exertional dyspnea [ R06.09] Start: 09-13-2022 End: 09-13-2022 Subsequent hospital visit by physician [facility] Echocardiology Testing Comment on above: Exertional dyspnea [ R06.09] Start: 09-06-2022 End: 09-07-[address] DOCTOR NUNES Facility:[facility] Start: 08-29-2022 End: 08-29-2022 ambulatory David Anderson MD Work Phone: Cardiology Comment on above: Shortness of Breath Start: 08-29-2022 End: 08-29-2022 Patient encounter procedure David Anderson MD Work Phone: [facility] Start: 08-28-2022 Telephone encounter David Saravia [...] above: Received Outside Med ical Records Start: 07-31-2022 End: 08-01-2022 ambulatory CARLOS Lerma [facility] Start: 07-31-2022 End: 07-31-2022 Subsequent hospital visit by physician [facility] Tilt Table Study [facility] Comment on above: Orthostatic hypotens ion; POTS (postural orthostatic tachycardia syndrome) Start: 07-12-2022 Telephone encounter Berta samson MD Work Phone: Cardiology Comment on above: Appointment Start: 07-04-2022 End: 07-05-2022 ambulatory NIKKIE TREJO Facility:[facility]1 Start: 06-26-2022 End: 06-27-2022 ambulatory NIKKIE TREJO Facility:[facility] Start: 06-26-[address] DOCTOR NUNES Facility :[facility] Start: 05-24-[address] DOCTOR NUNES Facility :[facility] Start: 05-08-2022 End: 05-08-2022 ambulatory Silvana Lundberg Other [employer] Other Start: 05-08-2022 Office outpatient vi sit 15 minutes Silvana Lundberg [facility] Start: 05-01-2022 End: 05-01-2022 Patient encounter procedure Jerrod BELL [facility] Start: 04-24-2022 End: 04-25-[address] DOCTOR [...] 08-06-2020 Discharged Recurring Silvana Lundberg Work Phone: [facility] Off Site Procedures Date Procedure Procedure Detail Performing Clinician Start: 06-10-2024 X-ray of cervical spine Silvana Lundberg MD Work Phone: Start: 02-18-2023 Repair of hip Jerrod JAMES Start: 10-31-2022 Aerobic microbial culture PHYSICIAN NO FAMILY Start: 10-31-2022 Anaerobic microbial culture PHYSICIAN NO FAMILY Start: 10-31-2022 Investigation of tra nsfusion reaction PHYSICIAN NO FAMILY Start: 10-16-2022 Nerve conduction waylon dies 5-6 studies Anna Palacios SALES AND LEASING AGENT.PATHOLOGY SPECIALIST Work Phone: Start: 10-04-2022 Pulmonary ventilatio n [...] and biopsy of upper gastrointestinal tract Jerrod BELL Start: 08-02-2018 Screening for malign ant neoplasm of prostate Silvana Lundberg Other Start: 05-17-2015 Injection of hip usi ng fluoroscopic guidance Jerrod BELL Comment on above: Rt. hip in OR-- 100% relief for 10 days Start: 03-08-2015 Injection of hip usi ng fluoroscopic guidance Jerrod BELL Comment on above: 100% relief for 4 da ys, slowly started coming back after 5 days back to where level of pain was before injection Start: 10-30-2014 Removal of suture Hue Lundberg Other Start: 10-02-2014 Back structure, excl uding neck (body structure) [employer] Comment on above: L2 to L5, cyst remov al, bone grafting Start: 06-26-2014 Injection of sacroil iac joint using fluoroscopic guidance Jerrod FOBO Comment on above: Left Start: 04-06-2014 Injection of sacroil iac joint using fluoroscopic guidance [employer] Comment on above: Left SIJI Start: 02-16-2014 Radiofrequency dener vation of spinal facet joint of lumbar vertebra [employer] Comment on above: Right L2-L5 Start: 02-02-2014 Radiofrequency dener vation of spinal facet joint of lumbar vertebra [employer] Comment on above: Left L2-L5 Start: 01-23-2014 General examination of patient Silvana Lundberg Other Start: 12-17-2013 Injection of facet j oint using fluoroscopic guidance [employer] Comment on above: Bilateral L2-L5 Start: 10-20-2013 Injection of facet j oint using fluoroscopic guidance [employer] Comment on above: Biilateral L2-L5 Start: 04-23-2012 Back structure, excl uding neck (body structure) [employer] Comment on above: bone grafting right hand surgery 11 Foreign k BELL Comment on above: 1996 Screening for malign ant neoplasm of prostate Silvana Lundberg Other Viral screening Silvana Lundberg Other Plan of Treatment Date Care Activity Detail Author Start: 11-06-2026 Diabetes Screening Diabetes Screening [facility] Start: 09-26-2026 Diabetes Screening Diabetes Screening [facility] Start: 05-30-2026 PROSTATE CANCER SCREENING DISCUSSION PROSTATE CANCER SCREENING DISCUSSION [facility] Start: 10-16-2025 DIABETES SCREEN DIABETES SCREEN [facility] Start: 10-16-2025 Diabetes Screening Diabetes Screening [facility] Start: 10-06-2025 DIABETES SCREEN DIABETES SCREEN [facility] Start: 12-28-2024 DIABETES SCREEN DIABETES SCREEN [facility] Start: 12-03-2024 End: 12-03-2024 ambulatory Hematology/Oncology Comment on above: 1 year ROBBY / Willi pt Start: 11-26-2024 End: 11-26-2024 Patient encounter procedure 11/26/2024 9:30 AM EDT Office Visit [facility] [address] [place] [address] [place] [address] [facility] Comment on above: 1 year lab Start: 07-21-2024 ambulatory Ambulatory Facility:[facility] Start: 07-08-2024 End: 07-08-2024 Patient encounter procedure 07/08/2024 10:00 AM EDT Office Visit Endocrinology [address] [place] [address] Alysha Emanuel MD [address] [place] [address] Follow Up Endocrinology Comment on above: Follow Up Start: 07-02-2024 End: 07-02-2024 Patient encounter procedure 07/02/2024 1:40 PM EDT Appointment Radiology [address] [place] [address] [facility] Comment on above: [facility] Start: 05-27-2024 End: 05-27-2024 Patient encounter procedure 05/27/2024 8:20 AM EST Appointment Radiology [address] [place] [address] [facility] Comment on above: [facility] Start: 05-13-2024 Patient referral [facility] Work Phone: Start: 05-01-2024 Covid-19 Vaccine () Covid-19 Vaccine () [facility] Start: 02-08-2024 End: 05-09-2024 25-hydroxyvitamin D3 [Mass/volume] in Serum or Plasma VITAMIN D 25 HYDROXY Lab Routine Closed fracture of hip, left, with delayed healing, subsequent encounter High serum parathyroid hormone (PTH) Other hyperparathyroidism (HCC) Osteoporosis, unspecified osteoporosis type, unspecified pathological fracture presence Expected: 02/08/2024, Expires: 05/09/2024 [facility] Comment on above: Expected: 02/08/2024, Expires: Start: 02-08-2024 End: 05-09-2024 BIOAVAILABLE TESTOSTERONE, ADULT MALE BIOAVAILABLE TESTOSTERONE, ADULT MALE Lab Routine Closed fracture of hip, left, with delayed healing, subsequent encounter High serum parathyroid hormone (PTH) Other hyperparathyroidism (HCC) Osteoporosis, unspecified osteoporosis type, unspecified pathological fracture presence Expected: 02/08/2024, Expires: 05/09/2024 [facility] Comment on above: Expected: 02/08/2024, Expires: Start: 02-08-2024 End: 05-09-2024 Magnesium [Mass/volume] in Serum or Plasma MAGNESIUM Lab Routine Closed fracture of hip, left, with delayed healing, subsequent encounter High serum parathyroid hormone (PTH) Other hyperparathyroidism (HCC) Osteoporosis, unspecified osteoporosis type, unspecified pathological fracture presence Expected: 02/08/2024, Expires: 05/09/2024 [facility] Comment on above: Expected: 02/08/2024, Expires: Start: 02-08-2024 End: 05-09-2024 Parathyrin.intact [Mass/volume] in Serum or Plasma PTH INTACT Lab Routine Closed fracture of hip, left, with delayed healing, subsequent encounter High serum parathyroid hormone (PTH) Other hyperparathyroidism (HCC) Osteoporosis, unspecified osteoporosis type, unspecified pathological fracture presence Expected: 02/08/2024, Expires: 05/09/2024 [facility] Comment on above: Expected: 02/08/2024, Expires: Start: 02-08-2024 End: 05-09-2024 Renal function 2000 panel - Serum or Plasma RENAL FUNCTION PANEL Lab Routine Closed fracture of hip, left, with delayed healing, subsequent encounter High serum parathyroid hormone (PTH) Other hyperparathyroidism (HCC) Osteoporosis, unspecified osteoporosis type, unspecified pathological fracture presence Expected: 02/08/2024, Expires: 05/09/2024 [facility] Comment on above: Expected: 02/08/2024, Expires: Start: 12-23-2023 Covid-19 Vaccine ( season) Covid-19 Vaccine () [facility] Start: 12-23-2023 Influenza vaccination [facility] Start: 12-14-2023 End: 12-14-2023 Patient encounter procedure 12/14/2023 1:00 PM EDT Office Visit Endocrinology [address] [place] [address] Alysha Emanuel MD [address] [place], [place] [id number] Pt needs appt with me please or Dr Domo Garcia. Thank you so much Endocrinology Comment on above: Pt needs appt with me please or Dr Domo Garcia. Thank you so much Start: 12-04-2023 End: 12-04-2023 ambulatory 12/04/2023 9:30 AM EDT Visit (SP) Office Hematology/Oncology [address] [place] [address] [place] [address] Merly Marti MD [address] [place] [id number] 6 month lab Hematology/Oncology Comment on above: 6 month lab Start: 11-29-2023 End: 11-29-2023 Patient encounter procedure 11/29/2023 9:45 AM EDT Office Visit [facility] [place] [address] [place] [address] [place] [address] [place] [address] Folow up- Delayed union of closed fracture of hip [facility] [place] Comment on above: Folow up- Delayed union of closed fractu re of hip Start: 11-28-2023 End: 11-28-2023 ambulatory 11/28/2023 10:00 AM EDT Visit (SP) Office Hematology/Oncology [address] [place] [address] [place] [address] Merly Marti MD [address] [place] [id number] 6 month lab Hematology/Oncology Comment on above: 6 month lab Start: 11-21-2023 End: 11-21-2023 Patient encounter procedure 11/21/2023 8:30 AM EDT Office Visit [facility] [address] [place] [address] [place] [address] [facility] Comment on above: 6 month lab Start: 12-22-2022 Covid-19 Vaccine () Covid-19 Vaccine () [facility] Start: 12-22-2022 Influenza vaccination [facility] Start: 12-11-2022 Hepatitis B core antibody measurement [facility] Start: 12-11-2022 [facility] Start: 10-31-2022 Aerobic Culture Aerobic Culture [facility] Start: 10-31-2022 Anaerobic Culture Anaerobic Culture [facility] Start: 10-31-2022 Microscopic observation [Identifier] in Unspecified specimen by Gram stain Gram Stain [facility] Start: 10-31-2022 [facility] Start: 10-17-2022 End: 12-17-2022 C reactive protein [Mass/volume] in Serum or Plasma C-REACTIVE PROTEIN (CRP) Lab Routine Ankylosing spondylitis of multiple sites in spine (HCC) Expected: 10/17/2022, Expires: 12/17/2022 [facility] Work Phone: Comment on above: Expected: 10/17/2022, Expires: 3 Start: 10-17-2022 End: 12-17-2022 Erythrocyte sedimentation rate SED RATE WESTERGREN Lab Routine Ankylosing spondylitis of multiple sites in spine (HCC) Expected: 10/17/2022, Expires: 12/17/2022 [facility] Work Phone: Comment on above: Expected: 10/17/2022, Expires: 3 Start: 10-06-2022 End: 12-06-2022 Alpha tocopherol [Mass/volume] in Serum or Plasma [facility] Work Phone: Comment on above: Expected: 10/06/2022, Expires: 3 Start: 10-06-2022 End: 12-06-2022 COPPER BLOOD [facility] Work Phone: Comment on above: Expected: 10/06/2022, Expires: 3 Start: 10-06-2022 End: 12-06-2022 Hemoglobin A1c in Blood [facility] Work Phone: Comment on above: Expected: 10/06/2022, Expires: 3 Start: 10-06-2022 End: 12-06-2022 IMMUNOFIXATION SCREEN, SERUM [facility] Work Phone: Comment on above: Expected: 10/06/2022, Expires: 3 Start: 10-06-2022 End: 12-06-2022 JUAN/YOEL KEANE,SER [facility] Work Phone: Comment on above: Expected: 10/06/2022, Expires: 3 Start: 10-06-2022 End: 12-06-2022 Pyridoxine [Mass/volume] in Serum or Plasma [facility] Work Phone: Comment on above: Expected: 10/06/2022, Expires: 3 Start: 10-06-2022 End: 12-06-2022 VITAMIN B1 (THIAMINE), WHOLE BLOOD [facility] Work Phone: Comment on above: Expected: 10/06/2022, Expires: 3 Start: 10-06-2022 End: 12-06-2022 Zinc [Mass/volume] in Serum or Plasma [facility] Work Phone: Comment on above: Expected: 10/06/2022, Expires: 3 Start: 07-25-2022 Annual Wellness Visit (AWV) Annual Wellness Visit (AWV) [facility] Start: 04-23-2022 DEPRESSION ASSESSMENT DEPRESSION ASSESSMENT [facility] Start: 12-28-2021 End: 02-27-2022 Fibrin D-dimer FEU [Mass/volume] in Platelet poor plasma D-DIMER Lab Routine Acute deep vein thrombosis (DVT) of distal end of left lower extremity (HCC) Expected: 12/28/2021, Expires: 02/27/2022 [facility] Work Phone: Comment on above: Expected: 12/28/2021, Expires: Start: 12-22-2021 End: 02-21-2022 APC RESISTANCE APC RESISTANCE Lab Routine Acute deep vein thrombosis (DVT) of distal end of left lower extremity (HCC) Expected: 12/22/2021 (Approximate), Expires: 02/21/2022 [facility] Work Phone: Comment on above: Expected: 12/22/2021 (Approximate), Expi res: 02/21/2022 Start: 12-22-2021 End: 02-21-2022 B 2 GPI IGG & IGM B 2 GPI IGG & IGM Lab Routine Acute deep vein thrombosis (DVT) of distal end of left lower extremity (HCC) Expected: 12/22/2021 (Approximate), Expires: 02/21/2022 [facility] Work Phone: Comment on above: Expected: 12/22/2021 (Approximate), Expi res: 02/21/2022 Start: 12-22-2021 End: 02-21-2022 Cardiolipin IgG and IgM panel - Serum ANTI-CARDIOLIPIN AB Lab Routine Acute deep vein thrombosis (DVT) of distal end of left lower extremity (HCC) Expected: 12/22/2021 (Approximate), Expires: 02/21/2022 [facility] Work Phone: Comment on above: Expected: 12/22/2021 (Approximate), Expi res: 02/21/2022 Start: 12-22-2021 End: 02-21-2022 CBC W Auto Differential panel - Blood CBC + DIFF Lab Routine Acute deep vein thrombosis (DVT) of distal end of left lower extremity (HCC) Expected: 12/22/2021 (Approximate), Expires: 02/21/2022 [facility] Work Phone: Comment on above: Expected: 12/22/2021 (Approximate), Expi res: 02/21/2022 Start: 12-22-2021 End: 02-21-2022 Comprehensive metabolic 2000 panel - Serum or Plasma COMP METABOLIC PANEL Lab Routine Acute deep vein thrombosis (DVT) of distal end of left lower extremity (HCC) Expected: 12/22/2021 (Approximate), Expires: 02/21/2022 [facility] Work Phone: Comment on above: Expected: 12/22/2021 (Approximate), Expi res: 02/21/2022 Start: 12-22-2021 End: 02-21-2022 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 [Identifier] in Blood or Tissue by Molecular genetics method [employer] PROTHROMBIN GENE PCR Lab Routine Acute deep vein thrombosis (DVT) of distal end of left lower extremity (HCC) Expected: 12/22/2021 (Approximate), Expires: 02/21/2022 [facility] Work Phone: Comment on above: Expected: 12/22/2021 (Approximate), Expi res: 02/21/2022 Start: 12-22-2021 Influenza vaccination [facility] Start: 12-22-2021 End: 02-21-2022 Lactate dehydrogenase [Enzymatic activity/volume] in Serum or Plasma LD LACTATE DEHYDRO Lab Routine Acute deep vein thrombosis (DVT) of distal end of left lower extremity (HCC) Expected: 12/22/2021 (Approximate), Expires: 02/21/2022 [facility] Work Phone: Comment on above: Expected: 12/22/2021 (Approximate), Expi res: 02/21/2022 Start: 12-22-2021 End: 02-21-[address]UPUS ANTICOAG [address] Lab Routine Acute deep vein thrombosis (DVT) of distal end of left lower extremity (HCC) Expected: 12/22/2021 (Approximate), Expires: 02/21/2022 [facility] Work Phone: Comment on above: Expected: 12/22/2021 (Approximate), Expi res: 02/21/2022 Start: 01-21-2021 Colonoscopy COLONOSCOPY [facility] Start: 01-21-2021 COLORECTAL CANCER SCREENING COLORECTAL CANCER SCREENING [facility] Start: 01-21-2021 Screening for malignant neoplasm of colon [facility] Start: 2020 RSV Vaccine (1 - 1-dose 60+ series) RSV Vaccine (1 - 1-dose 60+ series) [facility] Start: 2020 RSV Vaccine (1 - Risk 60-74 years 1-dose series) RSV Vaccine (1 - Risk 60-74 years 1-dose series) [facility] Start: 12-16-2019 DIABETES SCREEN DIABETES SCREEN [facility] Start: 09-05-2015 PROSTATE CANCER SCREENING DISCUSSION PROSTATE CANCER SCREENING DISCUSSION [facility] Start: 09-05-2015 Prostate specific antigen measurement Prostate Cancer Screening Discussion [facility] Start: 08-14-2015 PNEUMOCOCCAL (2 - PCV) PNEUMOCOCCAL (2 - PCV) [facility] Start: 08-14-2015 [facility] Start: 08-14-2015 Pneumococcal Vaccine: 50+ (2 of 2 - PCV) Pneumococcal Vaccine: 50+ (2 of 2 - PCV) [facility] Start: 01-12-2015 Urine microalbumin profile DTaP,Tdap,Td Vaccine (1 - Tdap) [facility] Start: 2010 Shingles vaccine (1 of 2) Shingles vaccine (1 of 2) [facility] Start: 2010 SHINGRIX VACCINE (1 of 2) SHINGRIX VACCINE (1 of 2) [facility] Start: 2005 COLOGUARD (FIT-DNA) COLOGUARD (FIT-DNA) [facility] Start: 2005 Colonoscopy COLONOSCOPY [facility] Start: 2005 COLORECTAL CANCER SCREENING COLORECTAL CANCER SCREENING [facility] Start: [address] COLONOGRAPHY [facility] Start: 2005 FECAL OCCULT BLOOD FECAL OCCULT BLOOD [facility] Start: 2005 Screening for malignant neoplasm of colon [facility] Start: 2005 SIGMOIDOSCOPY SIGMOIDOSCOPY [facility] Start: 2000 Lipid panel Lipids [facility] Start: 09-05-1995 Lipid 1996 panel - Serum or Plasma Lipid Screening [facility] Start: 09-05-1995 Lipid panel Lipid Screening [facility] Start: 09-05-1995 LIPID SCREEN LIPID SCREEN [facility] Start: 09-05-1979 DTaP/Tdap/Td vaccine (1 - Tdap) DTaP/Tdap/Td vaccine (1 - Tdap) [facility] Start: 09-05-1979 SHINGRIX VACCINE (1 of 2) SHINGRIX VACCINE (1 of 2) [facility] Start: 09-05-1979 Urine microalbumin profile [facility] Start: 1978 Anxiety Screening Anxiety Screening [facility] Start: 1978 HEPATITIS C SCREENING HEPATITIS C SCREENING [facility] Start: 1978 Hepatitis C screening [facility] Start: 1978 HIV SCREENING HIV SCREENING [facility] Start: 1978 HIV screening HIV Screening [facility] Start: 09-05-1975 HIV screening HIV screen [facility] Start: 1972 Depression Screen Depression Screen [facility] Start: 1966 PNEUMOCOCCAL (1 - PCV) PNEUMOCOCCAL (1 - PCV) [facility] Start: 1965 COVID-19 VACCINE (#1) COVID-19 VACCINE (#1) [facility] APC RESISTANCE APC RESISTANCE L ab Routine Acute deep vein thrombosis (DVT) of distal end of left lower extremity ([facility]) 12/28/2021 2:59 PM EDT [facility] Work Phone: aPTT in Platelet poo r plasma by Coagulation assay ACTIVATED PTT Lab Routine Acute deep vein thrombosis (DVT) of distal end of left lower extremity ([facility]) 12/28/2021 2:59 PM EDT [facility] Work Phone: B 2 GPI IGG & IGM B 2 GPI IGG & IGM Lab Routine Acute deep vein thrombosis (DVT) of distal end of left lower extremity ([facility]) 12/28/2021 2:59 PM EDT [facility] Work Phone: Bacteria identified in Unspecified specimen by Aerobe culture [facility] Bacteria identified in Unspecified specimen by Anaerobe culture [facility] BETA 2 GLYCOPROTEIN, IGG BETA 2 GLYCOPROTEIN, IGG Lab Routine Acute deep vein thrombosis (DVT) of distal end of left lower extremity ([facility]) 12/28/2021 2:59 PM EDT [facility] Work Phone: BETA 2 GLYCOPROTEIN, IGM BETA 2 GLYCOPROTEIN, IGM Lab Routine Acute deep vein thrombosis (DVT) of distal end of left lower extremity ([facility]) 12/28/2021 2:59 PM EDT [facility] Work Phone: CALCIUM, 24 HR URINE CALCIUM, 24 HR URINE Lab Routine Closed fracture of hip, left, with delayed healing, subsequent encounter High serum parathyroid hormone (PTH) Other hyperparathyroidism (HCC) Osteoporosis, unspecified osteoporosis type, unspecified pathological fracture presence Ordered: 02/08/2024 [facility] Comment on above: Ordered: 02/08/2024 Cardiolipin IgA Ab [Units/volume] in Serum by Immunoassay CARDIOLIPIN IGA ABS Lab Routine Acute deep vein thrombosis (DVT) of distal end of left lower extremity ([facility]) 12/28/2021 2:59 PM EDT [facility] Work Phone: CARDIOLIPIN IGG ABS CARDIOLIPIN IGG ABS Lab Routine Acute deep vein thrombosis (DVT) of distal end of left lower extremity ([facility]) 12/28/2021 2:59 PM EDT [facility] Work Phone: Cardiolipin IgG and IgM panel - Serum ANTI-CARDIOLIPIN AB Lab Routine Acute deep vein thrombosis (DVT) of distal end of left lower extremity ([facility]) 12/28/2021 2:59 PM EDT [facility] Work Phone: CARDIOLIPIN IGM ABS CARDIOLIPIN IGM ABS Lab Routine Acute deep vein thrombosis (DVT) of distal end of left lower extremity ([facility]) 12/28/2021 2:59 PM EDT [facility] Work Phone: End: 12-17-2023 CARDIOPULMONARY EXERCISE TEST CARDIOPULMONARY EXERCISE TEST PFT Routine SOB (shortness of breath) 1 Occurrences starting 11/17/2022 until 12/17/2023 [facility] Work Phone: Comment on above: 1 Occurrences starting 11/17/2022 until 12/17/2023 Citrate [Mass/time] in 24 hour Urine CITRATE 24 HR URINE Lab Routine Closed fracture of hip, left, with delayed healing, subsequent encounter High serum parathyroid hormone (PTH) Other hyperparathyroidism (HCC) Osteoporosis, unspecified osteoporosis type, unspecified pathological fracture presence Ordered: 02/08/2024 [facility] Comment on above: Ordered: 02/08/2024 CREATININE, 24 HOUR URINE CREATININE, 24 HOUR URINE Lab Routine Closed fracture of hip, left, with delayed healing, subsequent encounter High serum parathyroid hormone (PTH) Other hyperparathyroidism (HCC) Osteoporosis, unspecified osteoporosis type, unspecified pathological fracture presence Ordered: 02/08/2024 [facility] Comment on above: Ordered: 02/08/2024 End: 03-09-2025 DXA-FOREARM SKELETON DXA-FOREARM SKELETON Radiology Routine Closed fracture of hip, left, with delayed healing, subsequent encounter High serum parathyroid hormone (PTH) 1 Occurrences starting 02/08/2024 until 03/09/2025 [facility] Work Phone: Comment on above: 1 Occurrences starting 02/08/2024 until 03/09/2025 End: 08-17-2023 ECG COMPLETE ECG COMPLETE ECG Routine POTS (postural orthostatic tachycardia syndrome) 1 Occurrences starting 08/16/2022 until 08/17/2023 [facility] Work Phone: Comment on above: 1 Occurrences starting 08/16/2022 until 08/17/2023 End: 08-17-2023 Echocardiography ECHO Cardiology Routine Exertional dyspnea 1 Occurrences starting 08/16/2022 until 08/17/2023 [facility] Work Phone: Comment on above: 1 Occurrences starting 08/16/2022 until 08/17/2023 End: 10-07-2023 EMG(NEURO/NI) EMG(NEURO/NI) EMG Routine Disturbance of skin sensation 1 Occurrences starting 10/06/2022 until 10/07/2023 [facility] Work Phone: Comment on above: 1 Occurrences starting 10/06/2022 until 10/07/2023 F2 gene mutations fo und [Identifier] in Blood or Tissue by Molecular genetics method Nominal PROTHROMBIN GENE PCR Lab Routine Acute deep vein thrombosis (DVT) of distal end of left lower extremity (HCC) 12/28/2021 2:59 PM EDT [facility] Work Phone: FOUR EXTRA LT BLUE M AN COAG TUBES FOUR EXTRA LT BLUE MAN COAG TUBES Lab Routine Acute deep vein thrombosis (DVT) of distal end of left lower extremity (HCC) 12/28/2021 2:59 PM EDT [facility] Work Phone: LUPUS ANTICOAG PL LUPUS ANTICOAG PL Lab Routine Acute deep vein thrombosis (DVT) of distal end of left lower extremity (HCC) 12/28/2021 2:59 PM EDT [facility] Work Phone: LUPUS PANEL LUPUS PANEL Lab Routine Acute deep vein thrombosis (DVT) of distal end of left lower extremity (HCC) 12/28/2021 2:59 PM EDT [facility] Work Phone: End: 11-16-2023 MRI CARDIAC MORPH FUNC WO/W IVCON MRI CARDIAC MORPH FUNC WO/W IVCON Radiology Routine Dilated cardiomyopathy (HCC) 1 Occurrences starting 10/17/2022 until 11/16/2023 [facility] Work Phone: Comment on above: 1 Occurrences starting 10/17/2022 until 11/16/2023 End: 11-16-2023 MRI CARDIAC VELOCITY FLOW MAP MRI CARDIAC VELOCITY FLOW MAP Radiology Routine Dilated cardiomyopathy (HCC) 1 Occurrences starting 10/17/2022 until 11/16/2023 [facility] Work Phone: Comment on above: 1 Occurrences starting 10/17/2022 until 11/16/2023 OUTSIDE VENDOR CARDI AC OUTPATIENT EXTENDED RHYTHM RECORDING (WITHOUT TELEMETRY) OUTSIDE VENDOR CARDIAC OUTPATIENT EXTENDED RHYTHM RECORDING (WITHOUT TELEMETRY) Holter Routine Lightheadedness POTS (postural orthostatic tachycardia syndrome) Exertional dyspnea Ordered: 08/16/2022 [facility] Work Phone: Comment on above: Ordered: 08/16/2022 Oxalate [Mass/time] in 24 hour Urine OXALATE 24 HR URINE Lab Routine Closed fracture of hip, left, with delayed healing, subsequent encounter High serum parathyroid hormone (PTH) Other hyperparathyroidism (HCC) Osteoporosis, unspecified osteoporosis type, unspecified pathological fracture presence Ordered: 02/08/2024 [facility] Comment on above: Ordered: 02/08/[address] [facility] Work Phone: PT panel - Platelet poor plasma by Coagulation assay PROTHROMBIN TIME/PT Lab Routine Acute deep vein thrombosis (DVT) of distal end of left lower extremity (HCC) 12/28/2021 2:59 PM EDT [facility] Work Phone: End: 09-15-2023 Pulmonary ventilation & perfusion imaging NM LUNG VENT / PERF VQ Radiology Routine Exertional dyspnea Other secondary pulmonary hypertension (HCC) 1 Occurrences starting 08/16/2022 until 09/15/2023 [facility] Work Phone: Comment on above: 1 Occurrences starting 08/16/2022 until 09/15/2023 Sodium [Moles/time] in 24 hour Urine SODIUM 24 HR URINE Lab Routine Closed fracture of hip, left, with delayed healing, subsequent encounter High serum parathyroid hormone (PTH) Other hyperparathyroidism (HCC) Osteoporosis, unspecified osteoporosis type, unspecified pathological fracture presence Ordered: 02/08/2024 [facility] Comment on above: Ordered: 02/08/2024 STONE PANEL URINE STONE PANEL UR INE Lab Routine Closed fracture of hip, left, with delayed healing, subsequent encounter High serum parathyroid hormone (PTH) Other hyperparathyroidism (HCC) Osteoporosis, unspecified osteoporosis type, unspecified pathological fracture presence Ordered: 02/08/2024 [facility] Comment on above: Ordered: 02/08/2024 Urate [Mass/time] in 24 hour Urine URIC ACID 24 HR UR Lab Routine Closed fracture of hip, left, with delayed healing, subsequent encounter High serum parathyroid hormone (PTH) Other hyperparathyroidism (HCC) Osteoporosis, unspecified osteoporosis type, unspecified pathological fracture presence Ordered: 02/08/2024 [facility] Comment on above: Ordered: 02/08/[address] [facility] XR Cervical spine Vi ews W flexion and W extension [facility] XR Pelvis and Hip - left AP and Lateral frog XR HIP GENERAL 3V PELV/AP/LAT LEFT Radiology Routine Pain 09/27/2023 9:42 AM EDT [facility] Work Phone: End: 12-27-2024 XR Pelvis and Hip - left AP and Lateral frog XR HIP GENERAL 3V PELV/AP/LAT LEFT Radiology Routine Closed fracture of hip, left, with delayed healing, subsequent encounter 1 Occurrences starting 11/28/2023 until 12/27/2024 [facility] Work Phone: Comment on above: 1 Occurrences starting 11/28/2023 until 12/27/2024 XR Pelvis and Hip - left AP and Lateral frog XR HIP GENERAL 3V PELV/AP/LAT LEFT Radiology Routine Closed fracture of hip, left, with delayed healing, subsequent encounter 11/29/2023 9:03 AM EDT [facility] Immunizations Immunization Date Immunization Notes [facility] COVID-19 (PFIZER) [id number] 12Y and older Silvana Lundberg MD Work Phone: [facility] 03-06-2024 influenza, injectabl e, madin seven canine kidney, preservative free Silvana Lundberg MD Work Phone: [facility] 03-06-2024 RSV, preF3, adj, pf Silvana tsang MD Work Phone: [facility] 03-13-2022 COVID-19 Pfizer (Pediatric) Silvana Lundberg Other [facility] 03-13-2022 influenza virus vaccine, split virus (incl. purified surface antigen) Silvana Lundberg Other [employer] Other 03-13-2022 influenza virus vaccine, unspecified formulation Jerrod BELL [facility] 03-13-2022 influenza, injectabl e, quadrivalent, preservative free [facility] 03-13-2022 SARS-CoV-2 (COVID-19 ) [id number] Jerrod BELL [facility] 05-08-2021 SARS-CoV-2 (COVID-19 ) mRNA BNT-162b2 vax Jerrod BELL [facility] 03-12-2021 influenza virus vaccine, split virus (incl. purified surface antigen) Silvana Lundberg Other [employer] Other 03-12-2021 influenza virus vaccine, unspecified formulation Jerrod BELL [facility] 03-12-2021 influenza, injectabl e, quadrivalent, preservative free Merly Marti MD Work Phone: [facility] 08-06-2020 COVID-19 mRNA,[id number] b2 (Pfizer) Silvana Lundberg Work Phone: [facility] 07-22-2020 COVID-19 vaccine (NORTH) Merly Marti MD Work Phone: [facility] 07-13-2020 COVID-19 mRNA,[id number] b2 (Pfizer) Silvana Lundberg Work Phone: [facility] 06-21-2020 COVID-19 vaccine (NORTH) Merly Marti MD Work Phone: [facility] 12-31-2019 influenza virus vaccine, split virus (incl. purified surface antigen) Silvana Lundbreg Other [employer] Other 12-31-2019 influenza virus vaccine, unspecified formulation PHYSICIAN NO [facility] 01-29-2019 influenza virus vaccine, split virus (incl. purified surface antigen) Silvana Lundberg Other [employer] [facility] [employer] Other 01-29-2019 influenza virus vaccine, unspecified formulation PHYSICIAN NO [facility] 01-11-2015 tetanus and diphther ia toxoids, adsorbed, preservative free, for adult use (5 Lf of tetanus toxoid and 2 Lf of diphtheria toxoid) Silvana Lundberg Other [facility] 08-13-2014 pneumococcal polysaccharide vaccine, 23 valent Merly Marti MD Work Phone: [facility] NEGATED: Highlighted row has not occurred!05-04-2020 pneumococcal polysaccharide vaccine, 23 elayne Lundberg Other [employer] Other Payers Date Payer Category Payer Medicare HUMANA MEDICARE HUMANA MEDICARE PPO [id number] 2021-Present [phone] [address] [place] [address] PPO [id number] 2021 Medicare HUMANA MEDICARE HUMANA MEDICARE PPO [id number] 2021-Present [phone] [address] [address] [place] [address] PPO [id number] 1960 Unknown [id number] 2.16.840.1.912187.3.579.2.1 73 1960 Unknown [id number] 2.16.840.1.940563.3.579.2.5 93 1960 Unknown [id number] 2.16.840.1.394609.3.579.2.5 93 1960 Unknown [id number] 2.16.840.1.447751.3.579.2.5 93 1960 Unknown [id number] 2.16.840.1.618257.3.579.2.5 93 1960 Unknown [id number] 2.16.840.1.500532.3.579.2.5 93 1960 Unknown [id number] 2.16.840.1.467686.3.579.2.5 93 1960 Unknown [id number] 2.16.840.1.364752.3.579.2.5 1960 Unknown [id number] 2.16.840.1.743830.3.579.2.5 93 1960 Unknown [id number] 2.16.840.1.247565.3.579.2.5 93 1960 Unknown [id number] 2.16.840.1.566839.3.579.2.5 93 1960 Unknown [id number] 2.16.840.1.674444.3.579.2.5 93 1960 Unknown [id number] 2.16.840.1.089455.3.579.2.5 93 1960 Unknown [id number] 2.16.840.1.638746.3.579.2.5 93 1960 Unknown [id number] 2.16.840.1.926650.3.579.2.5 93 1960 Unknown [id number] 2.16.840.1.392717.3.579.2.5 93 1960 Unknown [id number] 2.16.840.1.588067.3.579.2.5 93 1960 Unknown [id number] 2.16.840.1.375951.3.579.2.5 93 1960 Unknown [id number] 2.16.840.1.251529.3.579.2.1 259 1960 Unknown [id number] 2.16.840.1.365393.3.579.2.1 259 1960 Unknown [id number] 2.16.840.1.979297.3.579.2.7 27 1960 Unknown [id number] 2.16.840.1.796063.3.579.2.7 27 1960 Unknown [id number] 2.16.840.1.502551.3.579.2.7 27 1960 Unknown [id number] 2.16.840.1.097197.3.579.2.7 27 1959 Private Health Insurance [id number] Self-pay [id number] Medicare [id number] Unknown [id number] Unknown [id number] Unknown [id number] 2.16.840.1.497234.3.579.2.5 93 Unknown [id number] 2.16.840.1.553532.3.579.2.5 31 Unknown [id number] 2.16.840.1.636786.3.579.2.5 31 Social History Date Type Detail Facility Tobacco smoking stat [facility] Unknown if ever smoked [facility] Start: 1960 Sex Assigned At Male F [facility] Start: 12-28-2021 End: 02-08-2024 Tobacco smoking status NHIS Ex-smoker [facility] History of tobacco use Cigarette Smoker C [facility] Start: 09-16-2021 End: 02-08-2024 Alcohol intake Current non-drinker of alcohol (finding) [facility] Start: 1960 Sex Assigned At Not on file C [facility] Start: 09-11-2021 End: 10-16-2022 Exposure to SARS-CoV-2 (event) Not sure [facility] History of tobacco use Current smoker [facility] Start: 12-28-2021 End: 08-29-2022 Cigarettes smoked current (pack per day) - Reported 2 [facility] History of tobacco use Passive smoker [facility] Start: 12-28-2021 End: 02-08-2024 Tobacco use and exposure Smokeless tobacco non-user [facility] Start: 12-28-2021 Tobacco Comment quit [facility] Start: 08-29-2022 End: 11-17-2022 Sex Assigned At Male [facility] Tobacco smoking stat us NHIS Tobacco smoking consumption unknown DILAN CORBETT Avnera Work Phone: Adult Depression Screening Assessment 2 [facility] Start: 07-06-2023 End: 07-06-2023 Tobacco smoking status NHIS Never smoked tobacco (finding) [facility] Start: 05-13-2024 End: 06-11-2024 Sex Male (finding) [facility] Medical Equipment Procedure Code Equipment Code Equipment Origin al Text Equipment Identifier Dates Graft Infuse 18m m Large Ii Bovine Collagen Rhbmp-2 26mm Bone Absorbable - [id number] Start: 09-01-2016 Connector Chika 0d Small Titanium Andrew Spine - [id number] Start: 09-01-2016 Substitute Mastergraft Bone Graft Matrix Block Extension Void Filler 10ml - [id number] Start: 09-01-2016 Qru-Ld-L-Kind Im plant - [id number] Start: 12-01-2015 Comment on above: Description: g7 osse eduardo acetabular shell 4 hole cementless Iqo-Eq-O-Kind Im plant - [id number] Start: 12-01-2015 Comment on above: Description: g7 acet abular screw Efi-Gu-X-Kind Im plant - [id number] Start: 12-01-2015 Comment on above: Description: g7 acet abular liner neutral Kdt-Ir-O-Kind Im plant - [id number] Start: 12-01-2015 Comment on above: Description: taperlo c complete primary femoral porous coated stem reduced distal high offset type 1 taper Cage Spnl Tri 8x 23mm 6d 11mm - [id number] Start: 09-01-2016 Screw Chika 3 Mali nium Set Julius Spine - [id number] Start: 09-01-2016 Head G7 40mm Bio lox Delta Femoral Hip - [id number] Start: 12-01-2015 Comment on above: Description: ceramic head Sleeve G7 -6mm O ffset Taper Biolox Delta Option Titanium Centering Type 1 - [id number] Start: 12-01-2015 Comment on above: Description: taper a dapter Andrew Chika 3 6mm 48 0mm Spinal - [id number] Start: 09-01-2016 Screw Chika 3 7.5m m Titanium 40mm Bone Polyaxial Spine Thoracolumbar - [id number] Start: 09-01-2016 Screw Chika 3 7.5m m Titanium 45mm Bone Polyaxial Spine Thoracolumbar - [id number] Start: 09-01-2016 [place] Chika 8.5mm 7 0mm Spinal Polyaxial Ilium - [id number] Start: 09-01-2016 Screw Chika 3 6.5m m Titanium 45mm Bone Polyaxial Spine Thoracolumbar - [id number] Start: 09-01-2016 USE WITH TERIPAR ATIDE PENS ONCE TIMES DAILY [id number] Start: 03-31-2024 Goals Date Patient Goal Desired Activity /State Functional Status Date Assessment Result Facility 01-04-2024 Functional Status N/A [facility] 12-25-2023 Functional Status N/A [facility] 07-16-2023 Functional Status N/A [facility] 05-01-2022 Functional Status N/A [facility] Clinical Notes 12-09-2016 to 06-10-2024 Note Date & Type Note Facility 06-10-2024 Note Cardiology Follow Up Progress Note Chief Complaint: follow up HPI: Elena Felix is a 63 y.o. male with a past medical history including hypertension, hyperlipidemia, and nonischemic cardiomyopathy. He presents to cardiology clinic for routine follow-up. Overall, patient states that he has been doing relatively well. He was last seen by [facility] in Jan 2023. Had echo last week. He's been having LE edema the past 6 weeks. States his LEAL is no more than normal for him. Denies chest pain, orthopnea, or PND. No additional complaints or concerns. Repeat echo performed recently demonstrates LVEF 55%, mildly dilated right ventricle with normal systolic function, normal diastolic function, no significant valvular dysfunction Cardiology ROS: 10 point ROS is performed and is negative unless otherwise specified in HPI. Medications Current Outpatient Medications on File Prior to Visit Medication Sig Dispense Refill aspirin 81 mg EC tablet aspirin 81 mg tablet,delayed release TAKE 1 TABLET BY MOUTH EVERY DAY atorvastatin (Lipitor) 40 mg tablet TAKE 1 TABLET BY MOUTH AT BEDTIME 90 tablet 3 DULoxetine (Cymbalta) 60 mg [...] (Toprol-XL) 100 mg 24 hr tablet Take 0.5 tablets (50 mg) by mouth in the morning. 45 tablet 3 omeprazole (PriLOSEC) [address] capsule Take 1 tablet by mouth in the morning. oxaprozin (Daypro) 600 mg tablet oxaprozin 600 mg tablet TAKE 1 TABLET BY MOUTH TWICE A DAY WITH FOOD spironolactone (Aldactone) 25 mg tablet TAKE 1/2 TABLET BY MOUTH IN THE MORNING 45 tablet 3 tamsulosin (Flomax) 0.4 mg 24 hr capsule Take 1 capsule by mouth in the morning and at bedtime. venlafaxine XR (Effexor-XR) 75 mg 24 hr capsule Take 150 mg by mouth in the morning. albuterol 90 mcg/actuation inhaler albuterol sulfate HFA 90 mcg/actuation aerosol inhaler INHALE 2 PUFFS BY MOUTH EVERY 4 HOURS NEEDED FOR SHORTNESS OF BREATH/WHEEZING Symbicort 160-4.5 mcg/actuation inhaler No current facility-administered medications on file prior to visit. Allergies Morphine, Lisinopril, and Losartan Physical Exam VITAL SIGNS: BP 108/76 (BP Location: Left arm, Patient Position: Sitting) Pulse 73 Ht 1.88 m (6' 2 ) Wt (!) 142 kg (314 lb) SpO2 96% BMI 40.32 kg/m??? Constitutional: Well developed, Well nourished, No [...] all major dermatomes, No focal deficits noted. Psychiatric: Affect normal, Judgment normal, Mood normal. Impression: -Non ischemic cardiomyopathy with recovered EF Plan: -Given increased fluid retention in the setting of HF with recovered EF, will start farxiga. Check BMP in 1 week -He is on a beta-julius and mineralocorticoid antagonist. He had concern for angioedema with HORTENCIA. Continue current regimen -Optimize medical management -Aggressive risk factor modification -Plan of care discussed with patient. All questions were answered. Patient voices understanding and is agreeable with current plan. -Patient was educated on red flag symptoms. Strict return precautions were provided. Patient verbalizes understanding -Follow-up in cardiology clinic in 6-8 weeks after echo is complete. Nikkie Trejo MD Interventional Cardiology [facility] 05-13-2024 Evaluation note Diagnosis Onset Date Resolution Ankylosing spondylitis acute 2024 10:40am CHF (congestive heart failure) acute May 13 10:40am Depression acute May 13, 2024 10:40am Left cervical radiculopathy acute May 13 10:40am Lower extremity edema acute Apr 10:40am Peripheral neuropathy acute Apr 10:40am Left shoulder pain acute Februa 2024 9:12am Neck pain acute June 10, 2024 9:12am Occipital neuralgia of left side acute June 10, 2 025 9:12am Other chronic pain acute Februa 2024 9:12am [facility] Work Phone: [phone] 471-801212-16-2024 Telephone encounter Note* Telephone Encounter - Alysha Emanuel MD - 04/07/2024 4:41 PM EST Resending rx Alysha Emanuel MD Dept of Endocrinology [facility]12-16-2024 Miscellaneous Notes* Telephone Encounter - Alysha Emanuel MD - 04/07/2024 4:41 PM EST Resending rx Alysha Emanuel MD Dept of Endocrinology * Telephone Encounter - Rena Dacosta - 04/07/2024 3:34 PM EST Patients insurance called in states Teriparatide 20 mcg/dose (600mcg/2.4mL is not covered by patients insurance. They are recommending alternate medications: Forteo, Tymols, Alendronate Sodium. [employer] can be reached at [phone]. Rena Munson [employer] [address] [place] [phone] documented in this encounter[facility]12-[facility] Telephone encounter Note * Telephone Encounter - Rena Dacosta - 04/07/2024 3:34 PM EST Patients insurance called in states Teriparatide 20 mcg/dose (600mcg/2.4mL is not covered by patients insurance. They are recommending alternate medications: Forteo, Tymols, Alendronate Sodium. [employer] can be reached at [phone]. Rena Munson [employer] Ad[employer] II [employer] [place]-F20 [facility]10-18-2024 NoteHNO ID: [id number] Author: ALYSHA EMANUEL MD Service: ? Author Type: Physician Type: Progress Notes Filed: 02/08/2024 11:40 Note Text: Endocrine consult note Mr. Felix is a 63 year old male here [place] [id number] [address] [facility] [id number] for evaluation, management, and treatment of the following issues: bone health My final recommendations will be communicated back to the requesting physician by way of shared medical record or letter. Coming from [place], [place] Mr. Felix is here to discuss [...] Arthritis Back pain four back surgeries Cardiomyopathy ([facility]) Nonischemic Congestive Cerebrovascular small vessel disease 08/24/2016 On ASA DVT (deep venous thrombosis) ([facility]) Esophageal reflux Former smoker Kidney stones Major depressive disorder with single episode, in remission ([facility]) 08/24/2016 Morbid obesity with BMI of 40.0-44.9, adult ([facility]) Neuropathy Obstructive sleep apnea syndrome, severe On [...] No Dizziness: No Numbn (more content not included)...[facility]10-18-2024 History of Present illness Narrative* Alysha Emanuel MD - 02/08/2024 10:04 AM EDT Endocrine consult note Mr. Felix is a 63 year old male here today [place] the [place] [id number] [facility] [address] for evaluation, management, and treatment of the following issues: bone health My final recommendations will be communicated back to the requesting physician by way of shared medical record or letter. Coming from [place], [place] Mr. Felix is here to discuss [...] PAST MEDICAL HISTORY Diagnosis Date Ankylosing spondylitis ([facility]) Dr Hodges; age 19 yrs Arthritis Back pain four back surgeries Cardiomyopathy ([facility]) Nonischemic Congestive Cerebrovascular small vessel disease 08/24/2016 On ASA DVT (deep venous thrombosis) ([facility]) Esophageal reflux Former smoker Kidney stones Major depressive disorder with single episode, in remission ([facility]) 08/24/2016 Morbid obesity with BMI of 40.0-44.9, adult ([facility]) Neuropathy Obstructive sleep apnea syndrome, severe On [...] (303 lb 2.1 oz) BMI 39.32 kg/m Bodymass index is 39.32 kg/m . General: WNWD, [...] IgM 40 - 230 mg/dL 26 (L) [place] Free, Serum 3.3 - 19.4 mg/L 32.4 [...] Side effect sheet provided to patient from [employer] as well for above medication. Side effects [...] I did update Dr Hodges's office at [phone] with status of medication. I left . Thank you for allowing me to participate in the care of Elena Felix. Please contact me with any questions or concerns. Alysha Emanuel MD Dept of Endocrinology February 08, 2024 documented in this encounterMer[facility]10-[facility] Instructions* Patient Instructions* Alysha Emanuel MD - 02/08/2024 9:46 AM [...] low, increasing a person's risk of fractures. Thelumbar spine (lower back) and the hip are [...] order bone medication- forteo documented in [facility]Mer[facility] Hospital Discharge instructions Patient Education 01/04/2024 11:25:15 [...] including vitamins, herbs, eye drops, creams, and jsbi-niq-orwbxhq medicines. Any problems you or family members [...] provider tells you to take them. Taking cgtc-qrb-yueqbdh medicines, vitamins, herbs, and supplements. General instructions Do not use any products that contain nicotine or tobacco. These products include cigarettes, chewing tobacco, and vaping devices, such as e-cigarettes. If you need help quitting, ask your health careprovider. Follow instructions from your health care provider [...] take you home from the hospital or clinicafter the procedure. What happens during the procedure? [...] hole punch is used to cut a tribal shape out of theskin. ?The outer edges of the skin will [...] provider. Document Revised: 11/08/2021 Document Reviewed: 11/08/2021 [employer] Patient Education 2023 [employer]. Follow Up Care 11/06/2023 09:35:32 With:ARABELLA MUNIZ, Jerrod Moya, URL Address: [address] [place], [place] [id number]- When: Unknown [facility] 09-13-2024 NotePatient Education Dermatology Excision of Skin Lesions Excision [...] including vitamins, herbs, eye drops, creams, and cdlo-dxh-svzttbo medicines. ? Any problems you or family [...] tells you to take them. ? Taking xwaf-ofm-dnnhqqt medicines, vitamins, herbs, and supplements. General instructions [...] hole punch is used to cut a tribal shape out of the skin. ? The [...] layers of the lesion until all the abnormalor cancerous tissue has been removed. ? The [...] visits. This is impo (more content not included)...[facility]09-03-2024 Hospital Discharge instructions Patient Education 12/25/2023 09:59:30 [...] Up Care 11/06/2023 09:33:45 With:Jerrod BELL Address: [address] [place], [place] [id number]- Business (1) When:01/01/2024 09:58:51 Comments:For suture removal [facility] 09-03-2024 NotePatient Education Custom Excision Penile Condyloma ? After [...] -Take the pain medication and antibiotics as directedChildren[facility]-2023 NoteHNO ID: [id number] Author: MERLY MARTI MD Service: ? Author Type: Physician Type: Progress Notes Filed: 12/04/2023 10:01 Note Text: PATIENT NAME: Elena Felix [facility] NO.: [id number] ATTENDING PHYSICIAN: Merly Marti MD DATE OF [...] PAST MEDICAL HISTORY No date: Ankylosing spondylitis ([facility]LY [facility]) Comment: Dr Hodges No date: Ankylosing spondylitis ([facility]) No date: Arthritis No date: Back pain No date: Cardiomyopathy ([facility]) Comment: Nonischemic Congestive 08/24/2016: Cerebrovascular small vessel disease Comment: On ASA No date: DVT (deep venous thrombosis) ([facility]LY [facility]) No date: Esophageal reflux No date: Former smoker No date: Kidney stones 08/24/2016: Major depressive disorder with single episode, in remission (HCC) No date: Morbid obesity with BMI of 40.0-44.9, adult ([facility]) No date: Neuropathy No date: Obstructive sleep [...] 2.9 Bilirubin, Total (mg/dL) (more content not included)...[facility]08-13-2024 History of Present illness Narrative* Merly Marti MD - 12/04/2023 9:51 AM EDT PATIENT NAME: Elena Felix CLINIC NO.: [id number] ATTENDING PHYSICIAN: Merly Marti MD DATE OF [...] PAST MEDICAL HISTORY No date: Ankylosing spondylitis (FORM[facility]LY [facility]) Comment: Dr Hodges No date: Ankylosing spondylitis ([facility]) No date: Arthritis No date: Back pain No date: Cardiomyopathy ([facility]) Comment: Nonischemic Congestive 08/24/2016: Cerebrovascular small vessel disease Comment: On ASA No date: DVT (deep venous thrombosis) ([facility]) No date: Esophageal reflux No date: Former smoker No date: Kidney stones 08/24/2016: Major depressive disorder with single episode, in remission ([facility]) No date: Morbid obesity with BMI of 40.0-44.9, adult ([facility]) No date: Neuropathy No date: Obstructive sleep [...] Range Status 11/07/2023 14.4 % Final Abs Charlton Date Value Ref Range Status 11/07/2023 0.91 [...] unprovoked. He was not 100% committed to skilled nursing therapy. I reviewed his hypercoag labs and [...] do not hesitate to contact me at [phone]. Merly Marti MD Hematology/Medical Oncology [facility] I spent a total of 30 minutes on the date of the service which included preparing to see the patient, wndy-wm-ppml patient care, completing clinical documentation, obtaining and/or reviewing separately obtained history, ordering medications, tests, or procedures, and communicating with other HCPs (not separately reported). CC: Silvana Lundberg MD documented in this encounterMer[facility]08-08-2024 NoteHNO ID: [id number] Author: MISTY WALLACE MD Service: ? Author [...] tolerated -Follow up: as needed Misty Wallace MDFuller [id number] History of Present illness Narrative* Misty Wallace MD - 11/29/2023 1:18 PM EDT Orthopaedic Surgery Clinic Established Visit Date of Injury: January 2023 Injury: Left femoral neck fracture, treated at outside hospital History: Patient presents to clinic 10 months from the above injury, he states that he is doing much better and has been able to ambulate without any pain in the left hip. He states that occasionallyhe will have mild discomfort, but overall is [...] right total hip arthroplasty since the surgery wasdone. He would like to see an arthroplasty surgeon. Business cards of to my arthroplasty partners were given to the patient today, he will reach out to schedule and let us know if he has any difficulties -Weightbearing: Weight bearing as tolerated -Follow up: as needed Misty Wallace MD documented in this encounterMercy [facility]08-08-2024 History of Present illness Narrative* Kecia Carpenter, RT(R) - 11/29/2023 8:40 AM EDT Radiology Service Progress Note PATIENT NAME: Elena Felix DATE OF SERVICE: November 29, 2023 TIME: 8:56 AM PATIENT IDENTITY VERIFICATION COMPLETED USING TWO (2) IDENTIFIERS: Name and Date of confirmedby patient verbally and Name and Date of confirmed by identification band. FALL SCREENING: Has the patient had 2 falls in the last year or 1 fall with injury or currently using an Ambulatory Assistive Device (Walker, Cane, Wheelchair, Crutches, etc.)? No PATIENT GENDER DATA: Male PATIENT RELEVANT IMPLANT DATA REVIEWED: Not Applicable PATIENT PRESENTS WITH AN IMPLANTABLE OR ATTACHED INVENTORY WORKER: No RADIOLOGY DEPARTMENT: General X-ray: Exam(s) Completed: Pelvis X-Ray: Pelvis with Hip Left PERIPHERAL IV DATA: Not applicable SIGNED BY: RT Alpa(Griffin) November 29, 2023 8:56 AM documented in this encounterMercy Health [facility]08-08-2024 NoteHNO ID: [id number] Author: KECIA CARPENTER RT(R) Service: Radiology Author [...] PATIENT PRESENTS WITH AN IMPLANTABLE OR ATTACHED INVENTORY WORKER: No RADIOLOGY DEPARTMENT: General X-ray: Exam(s) Completed: Pelvis X-Ray: Pelvis with Hip Left PERIPHERAL IV DATA: Not applicable SIGNED BY: RT Alpa(Griffin) November 29, 2023 8:56 [facility]06-10-2024 Telephone encounter Note* Telephone Encounter - Brad Zavala - 10/01/2023 4:25 PM EDT Called pt to schedule; no answer; scheduled first available with dr. [facility] garcia [facility]06-10-2024 Miscellaneous Notes* Telephone Encounter - Brad Zavala - 10/01/2023 4:25 PM EDT Called pt to schedule; no answer; scheduled first available with dr. [facility] garcia documented in this encounterMercy Health [facility]06-07-2024 Telephone encounter Note * Telephone Encounter - Anabelle Londono RN - 09/28/2023 12:00 PM EDT ----- Message from Misty Wallace MD sent at 09/27/2023 1:23 PM EDT ----- Hi, can you let patient know that he had an elevated PTH. I have placed a consultation for endocrinology to discuss possible etiologies/treatments for this [facility]06-07-2024 Miscellaneous Notes* Telephone Encounter - Anabelle Londono RN - 09/28/2023 12:00 PM EDT ----- Message from Misty Wallace MD sent at 09/27/2023 1:23 PM EDT ----- Hi, can you let patient know that he had an elevated PTH. I have placed a consultation for endocrinology to discuss possible etiologies/treatments for this documented in this encounterMercy Health [facility]06-06-2024 NoteHNO ID: [id number] Author: MISTY WALLACE MD Service: ? Author [...] PAST MEDICAL HISTORY Diagnosis Date Ankylosing spondylitis (FORM[facility]LY [facility]) Dr Hodges Ankylosing spondylitis ([facility]) Arthritis Back pain Cardiomyopathy ([facility]) Nonischemic Congestive Cerebrovascular small vessel disease 08/24/2016 On ASA DVT (deep venous thrombosis) ([facility]) Esophageal reflux Former smoker Kidney stones Major depressive disorder with single episode, in remission ([facility]) 08/24/2016 Morbid obesity with BMI of 40.0-44.9, adult ([facility]) Neuropathy Obstructive sleep apnea syndrome, severe On [...] vitamin D, CRP, ESR, (more content not included)...[facility] 09-27[facility] History of Present illness Narrative* Misty Wallace MD - 09/27/2023 10:58 AM EDT Images from the original note [...] PAST MEDICAL HISTORY Diagnosis Date Ankylosing spondylitis ([facility]) Dr Hodges Ankylosing spondylitis ([facility]) Arthritis Back pain Cardiomyopathy ([facility]) Nonischemic Congestive Cerebrovascular small vessel disease 08/24/2016 On ASA DVT (deep venous thrombosis) ([facility]) Esophageal reflux Former smoker Kidney stones Major depressive disorder with single episode, in remission ([facility]) 08/24/2016 Morbid obesity with BMI of 40.0-44.9, adult ([facility]) Neuropathy Obstructive sleep apnea syndrome, severe On [...] due to patient's lack of prior hip painand lack of radiographic arthritis on imaging. Would like to wait for labs and an additional 6 to 8weeks to see additional fracture healing may occur. Patient was agreeable with this -Weightbearing: Weight bearing as tolerated to the left lower extremity -Follow up: 6-8 weeks with x-rays of left hip Addendum: PTH was noted to be very elevated on today's labs, I placed a consultation for endocrinology and sent an [employer] message to one of our endocrinologists as well. RN to update patient. Misty Wallace MD Orthopaedic Trauma Surgery documented in this encounterMercy Health [facility]06-06-2024 History of Present illness Narrative* Samuel Sky, RT(R) - 09/27/2023 9:40 AM EDT Radiology Service Progress Note PATIENT NAME: Elena Felix DATE OF SERVICE: September 27, 2023 TIME: 9:37 AM PATIENT IDENTITY VERIFICATION COMPLETED USING TWO (2) IDENTIFIERS: Name and Date of confirmedby patient verbally and Name and Date of confirmed by identification band. FALL SCREENING: Has the patient had 2 falls in the last year or 1 fall with injury or currently using an Ambulatory Assistive Device (Walker, Cane, Wheelchair, Crutches, etc.)? No PATIENT GENDER DATA: Male PATIENT RELEVANT IMPLANT DATA REVIEWED: Not Applicable PATIENT PRESENTS WITH AN IMPLANTABLE OR ATTACHED INVENTORY WORKER: No RADIOLOGY DEPARTMENT: General X-ray: Exam(s) Completed: Pelvis X-Ray: Pelvis with Hip Left PERIPHERAL IV DATA: Not applicable SIGNED BY: RT Jarett(Griffin) September 27, 2023 9:37 AM documented in this encounterMercy Health [facility]06-06-2024 NoteHNO ID: [id number] Author: SAMUEL SKY RT(R) Service: ? Author [...] PATIENT PRESENTS WITH AN IMPLANTABLE OR ATTACHED INVENTORY WORKER: No RADIOLOGY DEPARTMENT: General X-ray: Exam(s) Completed: Pelvis X-Ray: Pelvis with Hip Left PERIPHERAL IV DATA: Not applicable SIGNED BY: RT Jarett(Griffin) September 27, 2023 9:37 [facility]03-25-2024 Hospital Discharge instructions Patient Education 07/16/2023 10:39:22 Erectile Dysfunction Erectile Dysfunction Erectile dysfunction (ED) is the inability to get or keep an erection in order to have sexual intercourse. ED is considered a symptom of an underlying disorder and is not considered a disease. ED mayinclude: Inability to get an erection. Lack of [...] back or pelvic injuries, multiple sclerosis, Parkinson's disease,spinal cord injury, and stroke. Certain medicines, such [...] or the penis may be too curved toallow for intercourse. Never having nighttime or morning [...] penis. During this procedure, a blood vessel froma different part of the body is placed into the penis to allow blood to flow around (bypass) damaged or blocked blood vessels. Lifestyle changes, such as exercising more, losing weight, and quitting smoking. Follow these instructions at home: Medicines Take uxbs-mvb-zxoadii and prescription medicines only as told by your health care provider. Do not increase the dosage without first discussing it with your health care provider. If you are using self-injections, do injections as directed by your health care provider. Make sureyou avoid any veins that are on the surface of the penis. After giving an injection, apply pressureto the injection site for 5 minutes. Talk [...] you need help quitting, ask your health careprovider. Before using a vacuum pump, read the instructions that come with the pump and discuss any questionswith your health care provider. Keep all follow-up [...] provider. Document Revised: 07/06/2021 Document Reviewed: 07/06/2021 [employer] Patient Education 2022 [employer]. Follow Up Care 05/01/2022 10:53:41 With:RIZWAN MUNIZ, Driss Rodríguez, URL Address: [address] [place] [address] [place] [address] When: Unknown [facility] 01-24-2024 NoteHNO ID: [id number] Author: TIFFANY PETERSON PA-C Service: ? Author Type: Physician Alignment Specialist Type: Progress Notes Filed: 05/16/2023 12:16 Note Text: PATIENT NAME: Elena Felix [facility] NO.: [id number] ATTENDING PHYSICIAN: Merly Marti MD DATE OF [...] PAST MEDICAL HISTORY Diagnosis Date Ankylosing spondylitis (FORM[facility]LY [facility]) Dr Hodges Ankylosing spondylitis ([facility]) Arthritis Back pain Cardiomyopathy ([facility]) Nonischemic Congestive Cerebrovascular small vessel disease 08/24/2016 On ASA DVT (deep venous thrombosis) ([facility]) Esophageal reflux Former smoker Kidney stones Major depressive disorder with single episode, in remission ([facility]) 08/24/2016 Morbid obesity with BMI of 40.0-44.9, adult ([facility]) Neuropathy Obstructive sleep apnea syndrome, severe On [...] Range Status 05/16/2023 6.9 % Final Abs Charlton Date Value Ref Range Status 05/16/2023 0.36 [...] is a 61 yea (more content not included)...[facility]12-07-2023 Evaluation note* Encounter Date Diagnosis Assessment Notes Treatment Notes Treatment Clinical Notes Mar, Closed hip fracture, left, sequela [...] (ICD-10 - L30.9) Advised OTC Cortisone cream. [employer] Other 10-16-2023 History of Present illness Narrative* Austin Jose MD - 02/05/2023 1:01 PM EDT I personally reviewed the above information as obtained by the nurse and confirmed the findings. Chief Complaint: shortness of breath, Near loss of consciousness Additional HPI: 62 year old male with a past medical history of: PAST MEDICAL HISTORY Diagnosis Date Ankylosing spondylitis ([facility]) Dr Hodges Ankylosing spondylitis ([facility]) Arthritis Back pain Cardiomyopathy ([facility]) Nonischemic Congestive Cerebrovascular small vessel disease 08/24/2016 On ASA DVT (deep venous thrombosis) ([facility]) Esophageal reflux Former smoker Kidney stones Major depressive disorder with single episode, in remission ([facility]) 08/24/2016 Morbid obesity with BMI of 40.0-44.9, adult ([facility]) Neuropathy Obstructive sleep apnea syndrome, severe On [...] up with their primary care physician and/or housing director as previously scheduled. STUDY CONCLUSIONS: Abnormal head [...] to repeat a Tilt Table Test with vngx-xn-iwot blood pressure monitoring [facility]. He agrees. If a relationship between [...] of syncope. [ACC/AHA Syncope Guidelines 2017. PMID [id number]] -If syncope is frequent (more than 6 episodes in 1 year), then no private driving until symptoms are controlled. [ACC/AHA Syncope Guidelines 2017. PMID [id number]] -For professional or commercial driving, driving recommendations may differ depending upon company or governmental regulations. The Nurses and Nurse Practitioners at [facility] are integral to your care. -*Test results will be available on [employer].* -For brief questions regarding the test results, please send a [employer] message or call the office ([phone]), and a Nurse will be in contact. [...] for your consultation. Sincerely, Austin Jose MD, [facility], [facility] Cardiac Electrophysiology [facility] * Anna Duvall RN - 02/05/2023 12:00 PM EDT Images from the original note were not included. [facility] [place] Shanelle Flannery Department of Cardiovascular Medicine SECTION OF CARDIAC PACING and ELECTROPHYSIOLOGY OUTPATIENT VISIT DATE February 05, 2023 PRIMARY CARE PHYSICIAN: Silvana Lundberg ([facility]) [address] [place] [phone] REFERRING PHYSICIAN: Berta Francis [id number] [facility] [id number] NURSING INTAKE HISTORY: Mr. eFlix is a 62 year old male who [...] PAST MEDICAL HISTORY Diagnosis Date Ankylosing spondylitis ([facility]) Dr Hodges Ankylosing spondylitis ([facility]) Arthritis Back pain Cardiomyopathy ([facility]) Nonischemic Congestive Cerebrovascular small vessel disease 08/24/2016 On ASA DVT (deep venous thrombosis) ([facility]) Esophageal reflux Former smoker Kidney stones Major depressive disorder with single episode, in remission ([facility]) 08/24/2016 Morbid obesity with BMI of 40.0-44.9, adult ([facility]) Neuropathy Obstructive sleep apnea syndrome, severe On [...] Sweating, Frequent Urination, FrequentThirst Anna Duvall RN [facility] Syncope Center Score Please estimate the [...] of Both Sections: 35 documented in this encounterMercy Health [facility]09-06-2023 Evaluation note* Encounter Date Diagnosis Assessment Notes Treatment Notes Treatment Clinical Notes Dec, Pernicious anemia (ICD-10 - D51.0) [employer] Other 07-28-2023 Instructions* Patient Instructions* Berta Francis MD - 11/17/2022 11:06 AM EDT Cardiopulmonary exercise testing documented in this encounterMercy Health Kings [facility] Hospital07-28-2023 History of Present illness Narrative* Berta Francis MD - 11/17/2022 10:46 AM EDT Images from the original note were not included. Heart, V[facility] Thor[facility] [place] Shanelle Flannery Department of Cardiovascular Medicine SECTION OF CLINICAL CARDIOLOGY OUTPATIENT VISIT DATE November 17, 2022 OUTPATIENT VISIT TYPE ESTABLISHED PRIMARY CARE PHYSICIAN: Silvana Lundberg ([facility]) [address] [place] [phone] REFERRING PHYSICIAN: No referring provider defined for [...] PAST MEDICAL HISTORY Diagnosis Date Ankylosing spondylitis ([facility]) Dr Hodges Ankylosing spondylitis ([facility]) Arthritis Back pain Cardiomyopathy ([facility]) Nonischemic Congestive Cerebrovascular small vessel disease 08/24/2016 On ASA DVT (deep venous thrombosis) ([facility]) Esophageal reflux Former smoker Kidney stones Major depressive disorder with single episode, in remission ([facility]) 08/24/2016 Morbid obesity with BMI of 40.0-44.9, adult ([facility]) Neuropathy Obstructive sleep apnea syndrome, severe On [...] NORMAL ECG Confirmed by YELENA FUENTES MD ([id number]) on 08/16/2022 10:01:53 AM Patient Name: Elena [...] Department of Cardiovascular Medicine [facility] [place] [facility] Desk [address] [place] [address] Office Office Appointments: [phone] documented in this encounterMercy Health [facility]07-18-2023 Evaluation note* Encounter Date Diagnosis Assessment Notes Treatment Notes Treatment Clinical Notes Oct, Pernicious anemia (ICD-10 - D51.0) [employer] Other 07-11-2023 Evaluation note* Encounter Date Diagnosis Assessment Notes Treatment Notes Treatment Clinical Notes Oct, Cellulitis of right leg (ICD-10 - L03.115) Discussed antibiotics, pain med, consider referral to wound center if not healing well. [employer] Other 06-27-2023 Miscellaneous Notes* Telephone Encounter - Shelia Woods RN - 10/17/2022 9:06 AM EDT Called patient to discuss results of BMP with kidney function and potassium levels still elevated. Left generic message on non-identifying voicemail to return call or read [employer] message sent to notify him. Misti Woods RN documented in this encounterMercy Health [facility]06-26-2023 Evaluation note* Encounter Date Diagnosis Assessment [...] Will recheck labs, possibly checked this morning. [employer] Other 06-26-2023 History of Present illness Narrative* [...] EMG Trip Grey MD documented in this encounterMercy Health [facility] Hospital06-22-2023 Miscellaneous Notes* Telephone Encounter - Shelia Woods RN - 10/12/2022 1:09 PM EDT Called and left a generic message on non-identifying voicemail for return call if he has any questions about the [employer] message that Anna sent. Misti Woods RN documented in this encounterMercy Health Kings [facility] Hospital06-16-2023 Instructions* Patient Instructions* Anna Palacios APRN.SAHIL - 10/06/2022 9:58 AM EDT 1) Labs 2) EMG 3) Discuss with urology changing to different medication (discontinuing Flomax) 4) Discuss your neck symptoms with your business director 5) Medication consideration - Will discuss with [...] intolerance quickly and transiently. documented in this encounterMercy Health Kings [facility] Hospital06-16-2023 History of Present illness Narrative* Anna Palacios APRN.SAHIL - 10/06/2022 9:00 AM EDT Images from the original note were not included. [facility] New Patient Evaluation Chief Complaint/Issues: Elena Felix is a 62 year old right-handed male seen in the [facility] for General Neurology for: New patient Orthostatic [...] had multiple back and hip surgeries. His business director is locally in [place]. He had surgery in 2019, had a [...] GI andheart issues. He sees cardiology in [facility]. He had a heart cath and [...] PT in the past and sees his business director for the neck. [facility] PAST MEDICAL HISTORY Diagnosis Date Ankylosing spondylitis ([facility]) Dr Hodges Ankylosing spondylitis ([facility]) Arthritis Back pain Cardiomyopathy ([facility]) Nonischemic Congestive Cerebrovascular small vessel disease 08/24/2016 On ASA DVT (deep venous thrombosis) ([facility]) Esophageal reflux Former smoker Kidney stones Major depressive disorder with single episode, in remission ([facility]) 08/24/2016 Morbid obesity with BMI of 40.0-44.9, adult ([facility]) Neuropathy Obstructive sleep apnea syndrome, severe On [...] 60 mg Relevant Work Up To Date OS Tilt 07/31/2022 ...The patient's baseline blood pressure [...] up with their primary care physician and/or housing director as previously scheduled. STUDY CONCLUSIONS: Abnormal head [...] & Plan 10/06/2022 - Neuromuscular, Anna Palacios, SALES AND LEASING AGENT.PATHOLOGY SPECIALIST ASSESSMENT Elena Felix is a 62 year [...] managed by local rheumatology, and seen by [facility] rheumatology recently, Marysol Nance PA-C. He reports [...] SOB. He had OSH tilt completed through [facility] 07/2022. Though I cannot see the minute [...] which I will discuss with his primary housing director, Dr. Francis (staff message sent 10/06). He is currently in cardiac rehab locally 3x per week. We discuss conservative measures as tolerated. PLAN 1) Labs 2) EMG 3) Discuss with urology changing to different medication (discontinuing Flomax) 4) Discuss your neck symptoms with your business director 5) Medication consideration - Will discuss with [...] which included preparing to see the patient, [id number] patient care, completing clinical documentation, obtaining and/or reviewing separately obtained history, performing a medically appropriate examination, counseling and educating the pat ient/family/caregiver, and ordering medications, tests, or procedures. Anna Palacios APRN.[facility] General Neurology [address] [place]. [address] Appointment: [phone] CONSULT: Consultation requested by Dr. Francis for [...] of your PCP/referring physician documented in this encounterMer[facility]06-14-[facility]23 History of Present illness Narrative* Víctor Lewis, RT(R) - 10/04/2022 8:30 AM EDT RADIOLOGY [...] 8:10 PATIENT DISCHARGED TO: Ambulatory patient, left [place] department area. A Diagnostic radioactive procedure has taken place, with no further precautions necessary other than routine body substance precautions. More information regarding radiation safety can be found usingthis link: [email or web address] SIGNATURE: RT Eamon(R) PATIENT NAME: Elena Felix DATE: October 04, 2022 TIME: 8:15 AM PAGER/CONTACT #: documented in this encounterMercy Health Kings [facility]05-24-2023 Nurse Note* Yuliana Tubbs RN - [...] kind. Yuliana Tubbs RN documented in this encounterMercy Health [facility]05-09-2023 History of Present illness Narrative* Marcia [...] 2022 TIME: 1:57 PM documented in this encounterMercy Health [facility]05-08-2023 Miscellaneous Notes* Telephone Encounter - Lauryn [...] In Department of CARDIOLOGY. documented in this encounterMercy Health Kings Mills Hospital04-26-2023 Instructions* Patient Instructions* Marysol Nance PA-C - [...] uveitis coverage. Continue to follow with primary business director for medication changes and monitoring. [facility] to assist with treatment plan as needed. documented in this encounterMercy Health Kings [facility] Hospital04-26-2023 History of Present illness Narrative* Catia Snell - 08/16/2022 10:06 AM EDT E documented in this encounterMercy Health Kings [facility]04-26-2023 History of Present illness Narrative* Marysol Nance PA-C - 08/16/2022 10:00 AM EDT Images from the original note were not included. Rheumatology Outpatient Clinic Date of Service: 08/16/2022 Patient: Elena Felix Medical Record: [id number] Primary Care Physician: Silvana Lundberg MD Last Rheumatology visit: [facility] Referring Provider: Berta Francis MD [address] [facility] [address] Consultation requested by Berta Francis MD for [...] years later. He currently follows with a business director, Dr. Brad Hodges, in [place], [place] who he is happy with. However,reports business director told him, he is only his third patient with ankylosing spondylitis and so presents to [facility] rheum for assistance on treatment plan. Current [...] mass areas in the brain. Reports his business director has considered a TNF-alpha inhibitor again, but [...] PAST MEDICAL HISTORY Diagnosis Date Ankylosing spondylitis ([facility]) Dr Hodges Ankylosing spondylitis ([facility]) Arthritis Back pain Cardiomyopathy ([facility]) Nonischemic Congestive Cerebrovascular small vessel disease 08/24/2016 On ASA DVT (deep venous thrombosis) ([facility]) Esophageal reflux Former smoker Kidney stones Major depressive disorder with single episode, in remission ([facility]) 08/24/2016 Morbid obesity with BMI of 40.0-44.9, adult ([facility]) Neuropathy Obstructive sleep apnea syndrome, severe On [...] Ankylosing spondylitis of multiple sites in spine ([facility]LY [facility]) Elena Felix is a 62 year old [...] Patient should continue following with his primary business director. Follow up as needed. Plan Orders this visit: Office Visit on 08/16/22 CONSULT TO RHEUM/IMMUN DISEASE (M45.0) Ankylosing spondylitis of multiple sites in spine ([facility]) Recommend continuing Methotrexate and leflunomide Recommend starting [...] uveitis coverage. Continue to follow with primary business director for medication changes and monitoring. [facility] continue to assist with treatment plan as needed. Return if symptoms worsen or fail to improve. I spent a total of 60 minutes on the date of the service which included preparing to see the patient, [id number]-wu-tgoy patient care, completing clinical documentation, obtaining and/or reviewing separately obtained history, performing a medically appropriate examination, and counseling and educating the patient/family/caregiver. Marysol Nance PA-C Orthopaedic & Rheumatologic [facility] Date: August 16, 2022 Time: 10:00 AM documented in this encounterMercy Health [facility]04-26-2023 History of Present illness Narrative* Berta Francis MD - 08/16/2022 8:19 AM EDT Images from the original note were not included. Heart, Vascular and Thoracic [place] [facility] Department of Cardiovascular Medicine SECTION OF CLINICAL CARDIOLOGY OUTPATIENT VISIT DATE August 16, 2022 OUTPATIENT VISIT TYPE NEW PRIMARY CARE PHYSICIAN : Silvana Lundberg ([facility]) [address] [place] [phone] REFERRING PHYSICIAN: No referring provider defined for [...] 20 years ago. Used to work in [employer]. Fmaily hx of stroke in mother and father. PAST MEDICAL HISTORY Diagnosis Date Ankylosing spondylitis ([facility]LY [facility]) Dr Hodges Ankylosing spondylitis ([facility]) Arthritis Back pain Cardiomyopathy ([facility]) Nonischemic Congestive Cerebrovascular small vessel disease 08/24/2016 On ASA DVT (deep venous thrombosis) ([facility]) Esophageal reflux Former smoker Kidney stones Major depressive disorder with single episode, in remission ([facility]) 08/24/2016 Morbid obesity with BMI of 40.0-44.9, adult ([facility]) Neuropathy Obstructive sleep apnea syndrome, severe On [...] as 25% now 60%) 2/ NICM. He presents for second opinion on [...] lung disease in setting ofankylosing spondylitis and skilled nursing MTX use. Plan: - obtain echo here, [...] INFORMATION: Kellen Bryan MD Internal Medicine, PGY-3 [phone] 08/16/2022 12:26 PM [facility] STAFF PHYSICIAN NOTE OF PERSONAL INVOLVEMENT IN [...] SERVICE: August 16, 2022 documented in this encounterMercy Health [facility]04-25-2023 Miscellaneous Notes* Telephone Encounter - Geovanni Castillo - 08/15/2022 12:46 PM EDT Images received from [facility] by mail. Images uploaded to [employer]. Patient has a future appointment on: 08/16/22. Date of last OV: N/A. Geovanni Castillo August 15, 2022 12:46 PM documented in this encounterMercy Health [facility]04-10-2023 History of Present illness Narrative* Izzy Duvall RN - 07/31/2022 2:30 PM EDT Instructed on objectives and procedure of a tilt study documented in this encounterBON Protégé [employer] [facility] [employer] Work Phone: [phone] 384-123903-22-2023 Miscellaneous Notes* Telephone Encounter - Geovanni Castillo - 07/12/2022 1:54 PM EDT Contacted patient via Phone -no answer; M left requesting for cardiac records prior to appointment on 08/16/22. Geovanni Castillo July 12, 2022 1:54 PM documented in this encounterMercy Health [facility]01-16-2023 Evaluation note* Encounter Date Diagnosis Assessment [...] from Dr. Hodges's office and his medications. [employer] Other 01-09-2023 Hospital Discharge instructions Patient Education [...] urethra. Follow these instructions at home: Take ycve-hwu-blvcryh and prescription medicines only as told by [...] 04/09/2006 Document Revised: 03/04/2019 Document Reviewed: 05/14/2017 [employer] Patient Education [employer]. Follow Up Care 09/05/2021 12:02:11 With:ARABELLA MUNIZ, Jerrod Moya, VERENICE Address: [facility] [address] , [place] [address]- [phone] When:Within 1 Year(s) [facility] Sandip 09-28-2022 History of Present illness Narrative* Merly Marti MD - 01/18/2022 10:38 AM EDT PATIENT NAME: Elena Felix [facility] NO.: [id number] ATTENDING PHYSICIAN: Merly Marti MD DATE OF [...] PAST MEDICAL HISTORY Diagnosis Date Ankylosing spondylitis ([facility]) Dr Hodges Ankylosing spondylitis ([facility]) Arthritis Back pain Cardiomyopathy ([facility]) Nonischemic Congestive Cerebrovascular small vessel disease 08/24/2016 On ASA DVT (deep venous thrombosis) ([facility]) Esophageal reflux Former smoker Kidney stones Major depressive disorder with single episode, in remission ([facility]) 08/24/2016 Morbid obesity with BMI of 40.0-44.9, adult ([facility]) Neuropathy Obstructive sleep apnea syndrome, severe On [...] 0.95 (L) 1.00 - 4.00 k/uL Final Charlton% Date Value Ref Range Status 12/28/2021 12.7 % Final Abs Charlton Date Value Ref Range Status 12/28/2021 0.69 [...] unprovoked. He was not 100% committed to termite inspector therapy. I reviewed his hypercoag labs and [...] do not hesitate to contact me at [phone]. Merly Marti MD Hematology/Medical Oncology [facility] I spent a total of 15 minutes on the date of the service which included preparing to see the patient, inbt-lc-[id number] patient care, completing clinical documentation, obtaining and/or reviewing separately obtained history, ordering medications, tests, or procedures, and communicating with other HCPs (not separately reported). Medical Decision Making: Medical Decision Making Level: 1 - N/A CC: Silvana Lundberg MD documented in this encounterMercy Health Kings [facility] Hospital09-12-2022 Miscellaneous Notes* Telephone Encounter - Panfilo Carranza RN - 01/02/2022 3:24 PM EDT Voicemail left re: WLILI message. Pt is encouraged to call back [...] next appointment as well, documented in this encounterMercy Health [facility] Hospital09-12-2022 Miscellaneous Notes* Telephone Encounter - Meaghan De La Rosa RN - 01/02/2022 2:25 PM EDT Pt notified of results and that he can stop his anticoagulation therapy. Verbalized understanding and will follow up as scheduled. Meaghan De La Rosa RN * Telephone Encounter - Meaghan De La oRsa RN - 01/02/2022 2:23 PM EDT ----- Message from Merly Marti MD sent at 12/30/2021 5:36 PM EDT ----- Let him know that his work up is all negative and that if he wishes he can stop his anticoagulationand I am happy to discuss further in our next appointment as well, documented in this encounterMercy Health [facility]09-07-2022 History of Present illness Narrative* Merly Marti MD - 12/28/2021 2:43 PM EDT PATIENT NAME: Elena Felix [facility] NO.: [id number] ATTENDING PHYSICIAN: Merly Marti MD DATE OF SERVICE: December 28, [address] Merly Matri [address] [place] [address] here is an update on a follow [...] PAST MEDICAL HISTORY Diagnosis Date Ankylosing spondylitis ([facility]) Dr Hodges Ankylosing spondylitis ([facility]) Arthritis Back pain Cardiomyopathy ([facility]) Nonischemic Congestive Cerebrovascular small vessel disease 08/24/2016 On ASA DVT (deep venous thrombosis) ([facility]) Esophageal reflux Former smoker Kidney stones Major depressive disorder with single episode, in remission ([facility]) 08/24/2016 Morbid obesity with BMI of 40.0-44.9, adult ([facility]) Neuropathy Obstructive sleep apnea syndrome, severe On [...] 12/15/2016 1.98 1.00 - 4.00 k/uL Final Charlton% Date Value Ref Range Status 12/15/2016 10.6 % Final Abs Charlton Date Value Ref Range Status 12/15/2016 0.99 [...] unprovoked. He was not 100% committed to termite inspector theraoy and is undergoing evaluation with hyper coag panel to decide if Ok to stop therapy and or he needs to resume, Will follow up on the blood work and discuss with him Thank you for the kind referral. If there are any questions and or concerns please do not hesitate to contact me at [phone]. Merly Marti MD Hematology/Medical Oncology [facility] Ryder spent a total of 20 minutes on the date of the service which included preparing to see the patient, cwek-ba-cfsb patient care, completing clinical documentation, obtaining and/or reviewing separately obtained history, ordering medications, tests, or procedures, and communicating with other HCPs (not separately reported). Medical Decision Making: Medical Decision Making Level: 1 - N/A CC: Silvana Lundberg MD documented in this encounterMercy Health Kings [facility] Hospital08-09-2022 NoteEXAMINATION: XR CHEST 2 V HISTORY: [...] Electronically authenticated by: MAJOR REA Date: 2021-11-29 19:[address] [place], [place] [address]06-01-2022 Nurse Note* Annmarie Ralph MA - 09/21/2021 3:46 PM EDT Patient was in ER yesterday due to Bronchitis. Annmarie Ralph MA documented in this encounterMercy Health Kings [facility] Hospital06-01-2022 History of Present illness Narrative* Merly Marti MD - 09/21/2021 3:40 PM EDT Images from the original note were not included. PATIENT NAME: Elena Felix [facility] NO.: [id number] ATTENDING PHYSICIAN: Merly Marti MD DATE OF SERVICE: September 21, [address] Silvana Lundberg thank you for referring Mr. Elena Felix for an opinion regarding DVT. CHIEF COMPLAINT: DVT HPI: Elena Felix is a 61 year old year old male with past medical history significant for congestive heart failure followed at [facility], benign prostatic hypertrophy as well as ankylosing spondylitis who had undergone a [id number] PSF which was complicated by C. difficile [...] subsequently discharged and subsequently transition to Rivoroxaban. InAugust 2017 patient's IVC filter was removed and since this event was felt to be provoked but extensive proximal clotting he was eventually taken off his anticoagulation after approximately 1 year oftherapy. 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 due [...] PAST MEDICAL HISTORY Diagnosis Date Ankylosing spondylitis ([facility]) Dr Hodges Ankylosing spondylitis ([facility]) Arthritis Back pain Cardiomyopathy ([facility]) Nonischemic Congestive Cerebrovascular small vessel disease 08/24/2016 On ASA DVT (deep venous thrombosis) ([facility]) Esophageal reflux Former smoker Kidney stones Major depressive disorder with single episode, in remission ([facility]) 08/24/2016 Morbid obesity with BMI of 40.0-44.9, adult ([facility]) Neuropathy Obstructive sleep apnea syndrome, severe On [...] 12/15/2016 1.98 1.00 - 4.00 k/uL Final Charlton% Date Value Ref Range Status 12/15/2016 10.6 % Final Abs Charlton Date Value Ref Range Status 12/15/2016 0.99 [...] number below. Merly Marti M.D. Hematology/Medical Oncology [facility] [phone] CC: Silvana Lundberg MD I spent a total of 50 minutes on the date of the service which included preparing to see the patient, [id number]-[id number] patient care, completing clinical documentation, obtaining and/or reviewing separately obtained history, performing a medically appropriate examination, counseling and educating the pat ient/family/caregiver and ordering medications, tests, or procedures. documented in this encounterMercy Health Kings [facility] Hospital08-19-2017 History of Past illness Narrative* Problem Noted Date Resolved Date TIFFANIE (acute kidney injury) 12/09/20162016 Anticoagulation management encounter 10/27/2016 10/30/2016 Wound drainage 09/23/2016 10/30/2016 Pneumonia 12/15/2016 documented as of this encounter (statuses as of 09/16/2021) [address]19-2017 History of Past illness Narrative* Problem Noted Date Resolved Date TIFFANIE (acute kidney injury) 12/09/20162016 Anticoagulation management encounter 10/27/2016 10/30/2016 Wound drainage 09/23/2016 10/30/2016 Pneumonia 12/15/2016 documented as of this encounter (statuses as of 09/29/2021) [place] [address]19-2017 History of Past illness Narrative* Problem Noted Date Resolved Date TIFFANIE (acute kidney injury) 12/09/20162016 Anticoagulation management encounter 10/27/2016 10/30/2016 Wound drainage 09/23/2016 10/30/2016 Pneumonia 12/15/2016 documented as of this encounter (statuses as of 12/28/2021) [place] [address]-2017 History of Past illness Narrative* Problem Noted Date Resolved Date TIFFANIE (acute kidney injury) 12/09/20162016 Anticoagulation management encounter 10/27/2016 10/30/2016 Wound drainage 09/23/2016 10/30/2016 Pneumonia 12/15/2016 documented as of this encounter (statuses as of 01/02/2022) [address]19-2017 History of Past illness Narrative* Problem Noted Date Resolved Date TIFFANIE (acute kidney injury) 12/09/20162016 Anticoagulation management encounter 10/27/2016 10/30/2016 Wound drainage 09/23/2016 10/30/2016 Pneumonia 12/15/2016 documented as of this encounter (statuses as of 01/18/2022) [address]19-2017 History of Past illness Narrative* Problem Noted Date Resolved Date TIFFANIE (acute kidney injury) 12/09/20162016 Anticoagulation management encounter 10/27/2016 10/30/2016 Wound drainage 09/23/2016 10/30/2016 Pneumonia 12/15/2016 documented as of this encounter (statuses as of 07/12/2022) [address]19-2017 History of Past illness Narrative* Problem Noted Date Resolved Date TIFFANIE (acute kidney injury) 12/09/20162016 Anticoagulation management encounter 10/27/2016 10/30/2016 Wound drainage 09/23/2016 10/30/2016 Pneumonia 12/15/2016 documented as of this encounter (statuses as of 08/15/2022) [address]19-2017 History of Past illness Narrative* Problem Noted Date Resolved Date TIFFANIE (acute kidney injury) 12/09/20162016 Anticoagulation management encounter 10/27/2016 10/30/2016 Wound drainage 09/23/2016 10/30/2016 Pneumonia 12/15/2016 documented as of this encounter (statuses as of 08/16/2022) [address]19-2017 History of Past illness Narrative* Problem Noted Date Resolved Date TIFFANIE (acute kidney injury) 12/09/20162016 Anticoagulation management encounter 10/27/2016 10/30/2016 Wound drainage 09/23/2016 10/30/2016 Pneumonia 12/15/2016 documented as of this encounter (statuses as of 08/16/2022) [address]19-2017 History of Past illness Narrative* Problem Noted Date Resolved Date TIFFANIE (acute kidney injury) 12/09/20162016 Anticoagulation management encounter 10/27/2016 10/30/2016 Wound drainage 09/23/2016 10/30/2016 Pneumonia 12/15/2016 documented as of this encounter (statuses as of 08/28/2022) [address]19-2017 History of Past illness Narrative* Problem Noted Date Resolved Date TIFFANIE (acute kidney injury) 12/09/20162016 Anticoagulation management encounter 10/27/2016 10/30/2016 Wound drainage 09/23/2016 10/30/2016 Pneumonia 12/15/2016 documented as of this encounter (statuses as of 08/30/2022) [address]19-2017 History of Past illness Narrative* Problem Noted Date Resolved Date TIFFANIE (acute kidney injury) 12/09/20162016 Anticoagulation management encounter 10/27/2016 10/30/2016 Wound drainage 09/23/2016 10/30/2016 Pneumonia 12/15/2016 documented as of this encounter (statuses as of 09/19/2022) [address]19-2017 History of Past illness Narrative* Problem Noted Date Resolved Date TIFFANIE (acute kidney injury) 12/09/20162016 Anticoagulation management encounter 10/27/2016 10/30/2016 Wound drainage 09/23/2016 10/30/2016 Pneumonia 12/15/2016 documented as of this encounter (statuses as of 10/05/2022) [address]19-2017 History of Past illness Narrative* Problem Noted Date Resolved Date TIFFANIE (acute kidney injury) 12/09/20162016 Anticoagulation management encounter 10/27/2016 10/30/2016 Wound drainage 09/23/2016 10/30/2016 Pneumonia 12/15/2016 documented as of this encounter (statuses as of 10/06/2022) [address]19-2017 History of Past illness Narrative* Problem Noted Date Resolved Date TIFFANIE (acute kidney injury) 12/09/20162016 Anticoagulation management encounter 10/27/2016 10/30/2016 Wound drainage 09/23/2016 10/30/2016 Pneumonia 12/15/2016 documented as of this encounter (statuses as of 10/16/2022) [address]19-2017 History of Past illness Narrative* Problem Noted Date Resolved Date TIFFANIE (acute kidney injury) 12/09/20162016 Anticoagulation management encounter 10/27/2016 10/30/2016 Wound drainage 09/23/2016 10/30/2016 Pneumonia 12/15/2016 documented as of this encounter (statuses as of 10/17/2022) [address]19-2017 History of Past illness Narrative* Problem Noted Date Resolved Date TIFFANIE (acute kidney injury) 12/09/20162016 Anticoagulation management encounter 10/27/2016 10/30/2016 Wound drainage 09/23/2016 10/30/2016 Pneumonia 12/15/2016 documented as of this encounter (statuses as of 10/17/2022) [address]19-2017 History of Past illness Narrative* Problem Noted Date Resolved Date TIFFANIE (acute kidney injury) 12/09/20162016 Anticoagulation management encounter 10/27/2016 10/30/2016 Wound drainage 09/23/2016 10/30/2016 Pneumonia 12/15/2016 documented as of this encounter (statuses as of 10/23/2022) [address]19-2017 History of Past illness Narrative* Problem Noted Date Diagnosed Date Resolved Date TIFFANIE (acute kidney injury) 12/09/2016 Anticoagulation management encounter 10/27/2016 10/30/2016 Wound drainage 09/23/2016 10/30/2016 Pneumonia 12/15/2016 documented as of this encounter (statuses as of 12/01/2022) [address]19-2017 History of Past illness Narrative* Problem Noted Date Diagnosed Date Resolved Date TIFFANIE (acute kidney injury) 12/09/2016 Anticoagulation management encounter 10/27/2016 10/30/2016 Wound drainage 09/23/2016 10/30/2016 Pneumonia 12/15/2016 documented as of this encounter (statuses as of 02/05/2023) [address]19-2017 History of Past illness Narrative* Problem Noted Date Diagnosed Date Resolved Date TIFFANIE (acute kidney injury) 12/09/2016 Anticoagulation management encounter 10/27/2016 10/30/2016 Wound drainage 09/23/2016 10/30/2016 Pneumonia 12/15/2016 documented as of this encounter (statuses as of 02/23/2023) [facility] Future Appointments Appointment Date:05/04/2023 08:15:00 AM Scheduled Provider:Jerrod BELL MD Location:[facility] Appointment Type:URO Office Visit [facility] evaluation + Plan note Future Appointments Appointment Date:07/21/2024 09:15:00 AM Scheduled Provider:Jerrod BELL MD Location:[facility] Appointment Type:URO Office Visit Diagnostic Tests Pending * PSA Total 07/16/23 [facility] evaluation + Plan note Future Appointments Appointment Date:01/04/2024 10:30:00 AM Scheduled Provider:Jerrod BELL MD [facility] App[facility] Type:URO Office Visit Appointment Date:07/21/2024 09:15:00 AM Scheduled Provider:Jerrod BELL MD [facility] Appointment Type:URO Office Visit [facility] evaluation + Plan note Future Appointments Appointment Date:07/21/2024 09:15:00 AM Scheduled Provider:Jerrod BELL MD Location:[facility] Appointment Type:URO Office Visit [facility] evalmvpkrc noteNo Assessments Information Available [facility] Diagnosis Acute deep vein thrombosis (DVT) of distal end of left lower extremity (HCC)- Primary [facility]* Diagnosis Acute deep vein thrombosis (DVT) of distal end of left lower extremity (HCC)- Primary documented in this encounter [facility] note* Diagnosis History of DVT (deep vein thrombosis)- Primary Personal history of venous thrombosis and embolism documented in this encounter [facility]* Diagnosis Orthostatic hypotension POTS (postural orthostatic tachycardia syndrome) Tachycardia, unspecified documented in this encounter [facility] Work Phone: evaluation note* Diagnosis POTS (postural orthostatic tachycardia syndrome)- Primary Tachycardia, unspecified Lightheadedness Dizziness and giddiness POTS (postural orthostatic tachycardia syndrome) Tachycardia, unspecified documented in this encounter [facility]* Diagnosis Lightheadedness- Primary Dizziness and giddiness Change in blood pressure Other abnormal clinical finding SOB (shortness of breath) Shortness of breath POTS (postural orthostatic tachycardia syndrome) Tachycardia, unspecified Exertional dyspnea Other dyspnea and respiratory abnormality Other secondary pulmonary hypertension ([facility]) Autonomic dysfunction Unspecified disorder of autonomic nervous system Ankylosing spondylitis of multiple sites in spine ([facility]) Ankylosing spondylitis Acute deep vein thrombosis (DVT) of distal end of left lower extremity (HCC) Morbid obesity with BMI of 40.0-44.9, adult ([facility]) Morbid obesity Lightheadedness Dizziness and giddiness POTS (postural orthostatic tachycardia syndrome) Tachycardia, unspecified documented in this encounter [facility]* Diagnosis Chronic diastolic congestive heart failure (HCC)- Primary Chronic diastolic heart failure documented in this encounter [facility] note* Diagnosis Ankylosing spondylitis of multiple sites in spine ([facility]) Ankylosing spondylitis documented in this encounter [facility] note* Diagnosis Exertional dyspnea Other dyspnea and respiratory abnormality Other secondary pulmonary hypertension ([facility]) documented in this encounter [facility] note* Diagnosis Disturbance of skin sensation- Primary Lightheadedness Dizziness and giddiness Change in blood pressure Other abnormal clinical finding Orthostatic hypotension Tremulousness Abnormal involuntary movements documented in this encounter [facility] note* Diagnosis Radiculopathy, lumbar region- Primary Thoracic or lumbosacral neuritis or radiculitis, unspecified Disturbance of skin sensation 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 Work Phone: evaluation [facility]No [facility] [employer] Other evalugbgzm note* Diagnosis SOB (shortness of breath)- Primary Shortness of breath Coronary artery disease involving [place] coronary artery of [place] heart without angina pectoris Palpitations documented in this encounter [facility] note* Diagnosis Shortness of breath- Primary Near syncope Syncope and collapse documented in this encounter [facility] note* Diagnosis Exertional dyspnea Other dyspnea and respiratory abnormality documented in this encounter [facility] note* Diagnosis Onset Date Resolution Status Cellulitis, toe acute [facility] Work Phone: evaluation note* Diagnosis Onset Date Resolution Status Cellulitis, toe acute Rash acute Pathological fracture, hip, unspecified, sequela acute [facility] Work Phone: Evaluation note* Diagnosis Closed fracture of hip, left, with delayed healing, subsequent encounter- Primary Ankylosing spondylitis of multiple sites in spine (HCC) Ankylosing spondylitis Acute deep vein thrombosis (DVT) of femoral vein of both lower extremities (HCC) Morbid obesity with BMI of 40.0-44.9, adult ([facility]) Morbid obesity documented in this encounter [facility]* Diagnosis Pain Generalized pain documented in this encounter [facility] note* Diagnosis Closed fracture of hip, left, with delayed healing, subsequent encounter- Primary High serum parathyroid hormone (PTH) documented in this encounter [facility] note* Diagnosis Onset Date Resolution Status Cellulitis, toe acute Rash acute Depression acute Left shoulder pain acute Pathological fracture, hip, unspecified, sequela acute [facility] Work Phone: Evaluation note* Diagnosis Closed fracture of hip, left, with delayed healing, subsequent encounter- Primary documented in this encounter [facility] note* Diagnosis Closed fracture of hip, left, with delayed healing, subsequent encounter documented in this encounter [facility] note* Diagnosis History of DVT (deep vein thrombosis)- Primary Personal history of venous thrombosis and embolism Monoclonal gammopathy Monoclonal paraproteinemia documented in this encounter [facility] note* Diagnosis Other hyperparathyroidism ([facility])- Primary Other hyperparathyroidism Closed fracture of hip, left, with delayed healing, subsequent encounter High serum parathyroid hormone (PTH) Osteoporosis, unspecified osteoporosis type, unspecified pathological fracture presence Class 3 severe obesity without serious comorbidity with body mass index (BMI) of 40.0 to 44.9 in adult, unspecified obesity type ([facility]) documented in this encounter [facility] note* Diagnosis Onset Date Resolution Status Admit Date CHF (congestive heart failure) acute May 13, 2024 10:40am Left cervical radiculopathy acute May 13, 2024 10:40am Lower extremity edema acute Apr 10:40am [facility] Work Phone: History general Narrative - Reported* Type Description Date Medical History Arthritis of spine Medical History Peripheral neuropathy Medical History Tachycardia Medical History Leg cramps Medical History asthma Surgical History back surgery x 3 Surgical History right hip replaced Surgical History right hand x 2 Hospitalization History see above Hospitalization History infected incision and se psis and blood clot [employer] Other History general Narrative - Reported* Type [...] incision and se psis and blood clot [employer] Other Hospital course Narrative No data available for this section [facility] Hospital Discharge instructionsAmbulatory Orders* Referral to Pain Management Time Frame: 05/13/24, Location: None [facility] Work Phone: Progress note No data available for this section [facility] reason for referral (narrative)* Outpatient Procedure (Routine) - Authorized Specialty Diagnoses / Procedures Referred By Chen t Referred To Contact [facility] Diagnoses POTS (postural orthostatic tachycardia syndrome) Procedures ECG COMPLETE ECG ROUTINE ECG W/LEAST 12 LDS W/I&R Austin Jose MD [address] [place] [address] [facility] [place] [address] [place] [address] Referral ID Status Reason Start Date Expiration Date Visits Requested Visits Authorized [id number] Authorized Auto-Generat ed Referral 08/16/2022 08/16/2023 1 1 [facility] for referral (narrative)* Diagnostic Procedure Only (Routine) - Closed Specialty Diagnoses / Procedures Referred By Contac t Referred To Contact MOLECULAR & FUNCTIONAL IMAGING Diagnoses Exertional dyspnea Other secondary pulmonary hypertension (HCC) Procedures NM LUNG VENT / PERF VQ PULMONARY VENTILATION & PERFUSION IMAGING Berta Francis MD [address] [place] [address] Molecular [facility] Functional Imaging [address] [place] [address] Referral ID Status Reason Start Date Expiration Date V isits Requested Visits Authorized [id number] Closed Auto-Generate d Referral 08/16/2022 09/15/2023 1 1 [facility] for referral (narrative)* Outpatient Procedure (Routine) - Authorized Specialty Diagnoses / Procedures Referred By Contac t Referred To [facility] Diagnoses Disturbance of skin sensation Procedures EMG(NEURO/NI) NERVE CONDUCTION STUDIES 9-10 STUDIES Anna Palacios, SALES AND LEASING AGENT.PATHOLOGY SPECIALIST [address] [place] [address] [place] [address] Referral ID Status Reason Start Date Expiration Date Visits Requested Visits Authorized [id number] Authorized Auto-Generat ed Referral 10/06/2022 10/07/2023 1 1 [facility] for referral (narrative)* Outpatient Procedure (Routine) - Authorized Specialty Diagnoses / Procedures Referred By Contac t Referred To [facility] Diagnoses SOB (shortness of breath) Procedures CARDIOPULMONARY EXERCISE TEST PULMONARY STRESS TESTING Berta Francis MD [address] [place] [address] Res[facility] [place] [address] [place] [address] Referral ID Status Reason Start Date Expiration Date Visits Requested Visits Authorized [id number] Authorized Auto-Generat ed Referral 11/17/2022 12/17/2023 1 1 T [facility] for referral (narrative)* Diagnostic Procedure Only (Routine) - Closed Specialty Diagnoses / Procedures Referred By Contac t Referred To Contact [facility] Diagnoses Exertional dyspnea Procedures ECHO ECHO TTHRC R-T 2D W/WOM-MODE COMPL SPEC&COLR D Berta Francis MD [address] [place] [address] [facility] [place] [address] Referral ID Status Reason Start Date Expiration Date V isits Requested Visits Authorized [id number] Closed Auto-Generate d Referral 08/31/2022 11/29/2022 1 1 [facility] for referral (narrative)* Diagnostic Procedure Only (Routine) - Authorized Specialty Diagnoses / Procedures Referred By Contac t Referred To Contact XR IMAGING Diagnoses Closed fracture of hip, left, with delayed healing, subsequent encounter High serum parathyroid hormone (PTH) Procedures DXA-FOREARM SKELETON DXA BONE DENSITY STUDY /SITES APPENDICLR Alysha Metcalf MD [address] [place] [phone] Xr Imaging [facility] Referral ID Status Reason Start Date Expiration Date Visits Requested Visits Authorized [id number] Authorized Auto-Generat ed Referral 03/09/2025 1 1 [facility] for visit Narrative* Diagnostic Procedure Only (Routine) - Closed Specialty Diagnoses / Procedures Referred By Contac t Referred To Contact [facility] Diagnoses Exertional dyspnea Procedures ECHO ECHO TTHRC R-T 2D W/WOM-MODE COMPL SPEC&COLR D Berta Francis MD [address] [place] [phone] [place] [address] Referral ID Status Reason Start Date Expiration Date V isits Requested Visits Authorized [id number] Closed Auto-Generate d Referral 08/31/2022 11/29/2022 1 1 [facility] for visit Narrative* Diagnostic Procedure Only (Routine) - Closed Specialty Diagnoses / Procedures Referred By Contac t Referred To Contact XR IMAGING Diagnoses Pain Procedures XR HIP GENERAL 3V PELV/AP/LAT LEFT RADEX HIP UNILATERAL WITH PELVIS 2-[place] [address] [place] [place] [phone] Xr Imaging [facility] Referral ID Status Reason Start Date Expiration Date V isits Requested Visits Authorized [id number] Closed Auto-Generate d Referral 09/25/2023 10/24/2024 1 1 [facility] Diagnostic Procedure Only (Routine) - Closed Specialty Diagnoses / Procedures Referred By Chen anne Referred To Contact XR IMAGING Diagnoses Closed fracture of hip, left, with delayed healing, subsequent encounter Procedures XR HIP GENERAL 3V PELV/AP/LAT LEFT RADEX HIP UNILATERAL WITH PELVIS 2-[place] [address] [place] [address] [place] [address] Referral ID Status Reason Start Date Expiration Date V isits Requested Visits Authorized [id number] Closed Auto-Generate d Referral 11/28/2023 12/27/2024 1 1 [facility] Advance Directives No Advanced Directives Records Found Advance Directive Response Recorded Date/ Time Advance Directives No January 31, 2017 11:35am Documents on File Type Date Recorded Patient Account Service Associate Expl anation Advance Directive(s) 11/29/2017 5:55 AM Advance Directive(s) 11/19/2017 8:19 AM Advance Directive(s) 11/19/2017 10:21 AM Advance Directive(s) 12/10/2016 12:37 PM Advance Directive(s) 09/24/2016 2:38 PM Advance Directive(s) 08/24/2016 12:03 PM Advance Directive(s) 08/24/2016 12:04 PM Documents on File Type Date Recorded Patient Account Service Associate Expl anation Advance Directive(s) 08/24/2016 12:04 PM Documents on File Type Date Recorded Patient Account Service Associate Expl anation Advance Directive(s) 08/24/2016 12:04 PM [...] Lower extremity edema May 13, 2024 10:40am Chief Complaint Admit Date Med f/u May 13, 2024 1 0:40am Amb Documentation May 30, 2024 2 :34pm REFF BY DR. SILVANA LUNDBERG June 10, 2024 9:12am Reason for Visit Admit Date Ankylosing spondylitis May 13 10:40am CHF (congestive heart failure) April 242024 10:40am Depression May 13, 2024 1 0:40am Left cervical radiculopathy April 10:40am Lower extremity edema May 13, 2024 10:40am Peripheral neuropathy May 13, 2024 10:40am Left shoulder pain June 10, 2024 9:12am Neck pain June 10, 2024 9:12am Occipital neuralgia of left side Februar 2024 9:12am Other chronic pain June 10, 2024 9:12am Chief Complaint Admit Date Med f/u May 13, 2024 1 0:40am Amb Documentation May 30, 2024 2 :34pm REFF BY DR. SILVANA LUNDBERG June 10, 2024 9:12am M54.2 June 10, 2024 10:03am Summary Purpose Family History No Family History Records Found Relationship Condition Age at Onset Recorded Date/T neil father Unknown Not Specified Unknown Relationship Condition Age at Onset Recorded Date/T neil father Unknown mother Unknown Reason for Referral Specialty Diagnoses / Procedures Referred By Contac t Referred To Contact [facility] Diagnoses Closed fracture of hip, left, with delayed healing, subsequent encounter Procedures CONSULT TO PHYSICAL THERAPY PHYSICAL THERAPY EVALUATION HIGH COMPLEX 45 MINS Esther Pelayo PA-C [address] [place] [address] [facility] [address] [address] Referral ID Status Reason Start Date Expiration Date Visits Requested Visits Authorized [id number] Pending Review Auto-Generat ed Referral 11/29/2023 11/28/2024 1 1 Specialty Diagnoses / Procedures Referred By Contac t Referred To Contact XR IMAGING Diagnoses Closed fracture of hip, left, with delayed healing, subsequent encounter Procedures XR HIP GENERAL 3V PELV/AP/LAT LEFT RADEX HIP UNILATERAL WITH PELVIS 2-[place] [address] [place] [address] Xr Imaging [place] [address] Referral ID Status Reason Start Date Expiration Date V isits Requested Visits Authorized [id number] Closed Auto-Generate d Referral 11/28/2023 12/27/2024 1 1 Specialty Diagnoses / Procedures Referred By Contac t Referred To Contact Diagnoses Closed fracture of hip, left, with delayed healing, subsequent encounter High serum parathyroid hormone (PTH) Procedures CONSULT TO HIP FRACTURE LIAISON SERVICE (FRAGILITY) OFFICE/OUTPATIENT NEW HIGH MDM 60 [place] [address] [address] [place] [phone] Referral ID Status Reason Start Date Expiration Date Visits Requested Visits Authorized [id number] Authorized PCP Requested Referral 09/28/2023 09/27/2024 1 1 Specialty Diagnoses / Procedures Referred By Contac t Referred To Contact Endocrinology Diagnoses Closed fracture of hip, left, with delayed healing, subsequent encounter Procedures CONSULT TO ENDOCRINOLOGY OFFICE/OUTPATIENT NEW HIGH MDM 60 [place] [address] [place] [phone] Referral ID Status Reason Start Date Expiration Date Visits Requested Visits Authorized [id number] Authorized PCP Requested Referral 09/27/2023 09/26/2024 1 1 Specialty Diagnoses / Procedures Referred By Contac t Referred To Contact MR IMAGING Diagnoses Dilated cardiomyopathy (HCC) Procedures MRI CARDIAC VELOCITY FLOW MAP CARDIAC MRI FOR VELOCITY FLOW MAPPING Berta Francis MD [address] [place] [phone] Mr Imaging Referral ID Status Reason Start Date Expiration Date Visits Requested Visits Authorized [id number] Pending Review Auto-Generat ed Referral 10/17/2022 11/16/2023 1 1 Specialty Diagnoses / Procedures Referred By Contac t Referred To Contact MR IMAGING Diagnoses Dilated cardiomyopathy (HCC) Procedures MRI CARDIAC MORPH FUNC WO/W IVCON CARDIAC MRI W/WO CONTRAST & FURTHER SEQ Berta Francis MD [address] [place] [address] Mr Imaging Referral ID Status Reason Start Date Expiration Date Visits Requested Visits Authorized [id number] Pending Review Auto-Generat ed Referral 10/17/2022 11/16/2023 1 1 Specialty Diagnoses / Procedures Referred By Contac t Referred To Contact Neurology Diagnoses Lightheadedness Change in blood pressure Procedures CONSULT TO NEUROLOGY OFFICE/OUTPATIENT [facility] 60-74 MINUTES Berta Francis MD [address] [place], [place] [address] [phone] Referral ID Status Reason Start Date Expiration Date Visits Requested Visits Authorized [id number] Authorized PCP Requested Referral 08/16/2022 08/16/2023 1 1 Specialty Diagnoses / Procedures Referred By Contac t Referred To Contact Rheumatology Diagnoses Ankylosing spondylitis of multiple sites in spine (HCC) Procedures CONSULT TO RHEUM/IMMUN DISEASE OFFICE/OUTPATIENT [facility] 60-74 MINUTES Berta Francis MD [address] [place] [address] Referral ID Status Reason Start Date Expiration Date V isits Requested Visits Authorized [id number] Closed PCP Requested Referral 08/16/2022 08/16/2023 1 1 Specialty Diagnoses / Procedures Referred By Contac t Referred To Contact Diagnoses Lightheadedness POTS (postural orthostatic tachycardia syndrome) Autonomic dysfunction Procedures CONSULT TO [facility] OFFICE/OUTPATIENT NEW [facility] 60-74 MINUTES Berta Francis MD [address] [place] [address] Referral ID Status Reason Start Date Expiration Date Visits Requested Visits Authorized [id number] Authorized PCP Requested Referral 08/16/2022 08/16/2023 1 1 Specialty Diagnoses / Procedures Referred By Contac t Referred To Contact MOLECULAR & FUNCTIONAL IMAGING Diagnoses Exertional dyspnea Other secondary pulmonary hypertension (HCC) Procedures NM LUNG VENT / PERF VQ PULMONARY VENTILATION & PERFUSION IMAGING Berta Francis MD [address] [place] [address] [facility] [address] [place] [address] Referral ID Status Reason Start Date Expiration Date Visits Requested Visits Authorized [id number] Pending Review Auto-Generat ed Referral 08/16/2022 09/15/2023 1 1 Specialty Diagnoses / Procedures Referred By Contac t Referred To Contact [facility] Diagnoses Exertional dyspnea Procedures ECHO ECHO TTHRC R-T 2D W/WOM-MODE COMPL SPEC&COLR D Berta Francis MD [address] [place] [address] [facility] [place] [address] Referral ID Status Reason Start Date Expiration Date Visits Requested Visits Authorized [id number] Pending Review Auto-Generat ed Referral 08/16/2022 08/16/2023 1 1 Specialty Diagnoses / Procedures Referred By Contac t Referred To Contact [facility] Diagnoses Lightheadedness Change in blood pressure Procedures ECG COMPLETE ECG ROUTINE ECG W/LEAST 12 LDS W/I&R Berta Francis MD [address] [place] [address] [facility] [address] [facility] [place] [phone] Referral ID Status Reason Start Date Expiration Date V isits Requested Visits Authorized [id number] Closed Auto-Generate d Referral 06/27/2022 06/27/2023 1 1 Specialty Diagnoses / Procedures Referred By Contac t Referred To Contact Diagnoses Orthostatic hypotension POTS (postural orthostatic tachycardia syndrome) Procedures Tilt Table Test Carlos Krishna APRN - NP [address] [place] [address] Referral ID Status Reason Start Date Expiration Date Visits Re quested Visits Authorized [id number] Closed 07/24/2022 07/24/2023 1 1 Additional Source Comments (unrecognized sect ion and content) No Status Records FoundNo Status Records FoundNo Status Records FoundNo Status Records FoundNo Status Records FoundNo Status Records FoundNo Status Records FoundNo Status Records FoundNo Status Records FoundNo Status Records FoundNo Status Records Found INFORMATION SOURCE (unrecogn ized section and content) DATE CREATED AUTHOR 06/29/2021 [facility] DATE CREATED AUTHOR AUTHOR'S ORGANIZ ATION 08/01/2022 [facility] DATE CREATED AUTHOR AUTHOR'S ORGANIZ ATION 09/07/2022 [facility] DATE CREATED AUTHOR AUTHOR'S ORGANIZ ATION 08/01/2023 [facility] EPIC DATE CREATED AUTHOR AUTHOR'S ORGANIZ ATION 12/05/2023 [facility] DATE CREATED AUTHOR AUTHOR'S ORGANIZ ATION 12/29/2023 [facility] DATE CREATED AUTHOR AUTHOR'S ORGANIZ ATION 01/06/2024 [facility] DATE CREATED AUTHOR AUTHOR'S ORGANIZ ATION 04/10/2024 [facility] DATE CREATED AUTHOR AUTHOR'S ORGANIZ ATION 06/11/2024 [facility] DATE CREATED AUTHOR AUTHOR'S ORGANIZ ATION 06/14/2024 [facility] Source Comments (unrecognize d section and content) In the event this informatio n is protected by the Federal Confidentiality of Alcohol and Drug Abuse Patient Records regulations: The Federal rules restrict any use of the information to criminally investigate or prosecute any alcohol or drug abuse patient.[facility] the event this information is protected by the Federal Confidentiality of Alcohol and Drug Abuse Patient Records regulations: The Federal rules restrict any use of the information to criminally investigate or prosecute any alcohol or drug abuse patient.[facility] the event this information is protected by the Federal Confidentiality of Alcohol and Drug Abuse Patient Records regulations: The Federal rules restrict any use of the information to criminally investigate or prosecute any alcohol or drug abuse patient.[facility] the event this information is protected by the Federal Confidentiality of Alcohol and Drug Abuse Patient Records regulations: The Federal rules restrict any use of the information to criminally investigate or prosecute any alcohol or drug abuse patient.[facility] HospitalIn the event this information is protected by the Federal Confidentiality of Alcohol and Drug Abuse Patient Records regulations: The Federal rules restrict any use of the information to criminally investigate or prosecute any alcohol or drug abuse patient.[facility] HospitalIn the event this information is protected by the Federal Confidentiality of Alcohol and Drug Abuse Patient Records regulations: The Federal rules restrict any use of the information to criminally investigate or prosecute any alcohol or drug abuse patient.[facility] HospitalIn the event this information is protected by the Federal Confidentiality of Alcohol and Drug Abuse Patient Records regulations: The Federal rules restrict any use of the information to criminally investigate or prosecute any alcohol or drug abuse patient.[facility] HospitalIn the event this information is protected by the Federal Confidentiality of Alcohol and Drug Abuse Patient Records regulations: The Federal rules restrict any use of the information to criminally investigate or prosecute any alcohol or drug abuse patient.[facility] HospitalIn the event this information is protected by the Federal Confidentiality of Alcohol and Drug Abuse Patient Records regulations: The Federal rules restrict any use of the information to criminally investigate or prosecute any alcohol or drug abuse patient.[facility] HospitalIn the event this information is protected by the Federal Confidentiality of Alcohol and Drug Abuse Patient Records regulations: The Federal rules restrict any use of the information to criminally investigate or prosecute any alcohol or drug abuse patient.[facility] HospitalIn the event this information is protected by the Federal Confidentiality of Alcohol and Drug Abuse Patient Records regulations: The Federal rules restrict any use of the information to criminally investigate or prosecute any alcohol or drug abuse patient.[facility] HospitalIn the event this information is protected by the Federal Confidentiality of Alcohol and Drug Abuse Patient Records regulations: The Federal rules restrict any use of the information to criminally investigate or prosecute any alcohol or drug abuse patient.[facility] HospitalIn the event this information is protected by the Federal Confidentiality of Alcohol and Drug Abuse Patient Records regulations: The Federal rules restrict any use of the information to criminally investigate or prosecute any alcohol or drug abuse patient.[facility] HospitalIn the event this information is protected by the Federal Confidentiality of Alcohol and Drug Abuse Patient Records regulations: The Federal rules restrict any use of the information to criminally investigate or prosecute any alcohol or drug abuse patient.[facility] HospitalIn the event this information is protected by the Federal Confidentiality of Alcohol and Drug Abuse Patient Records regulations: The Federal rules restrict any use of the information to criminally investigate or prosecute any alcohol or drug abuse patient.[facility] HospitalIn the event this information is protected by the Federal Confidentiality of Alcohol and Drug Abuse Patient Records regulations: The Federal rules restrict any use of the information to criminally investigate or prosecute any alcohol or drug abuse patient.[facility] HospitalIn the event this information is protected by the Federal Confidentiality of Alcohol and Drug Abuse Patient Records regulations: The Federal rules restrict any use of the information to criminally investigate or prosecute any alcohol or drug abuse patient.[facility] HospitalIn the event this information is protected by the Federal Confidentiality of Alcohol and Drug Abuse Patient Records regulations: The Federal rules restrict any use of the information to criminally investigate or prosecute any alcohol or drug abuse patient.[facility] HospitalIn the event this information is protected by the Federal Confidentiality of Alcohol and Drug Abuse Patient Records regulations: The Federal rules restrict any use of the information to criminally investigate or prosecute any alcohol or drug abuse patient.[facility] HospitalIn the event this information is protected by the Federal Confidentiality of Alcohol and Drug Abuse Patient Records regulations: The Federal rules restrict any use of the information to criminally investigate or prosecute any alcohol or drug abuse patient.[facility] HospitalIn the event this information is protected by the Federal Confidentiality of Alcohol and Drug Abuse Patient Records regulations: The Federal rules restrict any use of the information to criminally investigate or prosecute any alcohol or drug abuse patient.[facility] HospitalIn the event this information is protected by the Federal Confidentiality of Alcohol and Drug Abuse Patient Records regulations: The Federal rules restrict any use of the information to criminally investigate or prosecute any alcohol or drug abuse patient.[facility] HospitalIn the event this information is protected by the Federal Confidentiality of Alcohol and Drug Abuse Patient Records regulations: The Federal rules restrict any use of the information to criminally investigate or prosecute any alcohol or drug abuse patient.[facility] HospitalIn the event this information is protected by the Federal Confidentiality of Alcohol and Drug Abuse Patient Records regulations: The Federal rules restrict any use of the information to criminally investigate or prosecute any alcohol or drug abuse patient.[facility] HospitalIn the event this information is protected by the Federal Confidentiality of Alcohol and Drug Abuse Patient Records regulations: The Federal rules restrict any use of the information to criminally investigate or prosecute any alcohol or drug abuse patient.[facility] HospitalIn the event this information is protected by the Federal Confidentiality of Alcohol and Drug Abuse Patient Records regulations: The Federal rules restrict any use of the information to criminally investigate or prosecute any alcohol or drug abuse patient.[facility] HospitalIn the event this information is protected by the Federal Confidentiality of Alcohol and Drug Abuse Patient Records regulations: The Federal rules restrict any use of the information to criminally investigate or prosecute any alcohol or drug abuse patient.[facility] HospitalIn the event this information is protected by the Federal Confidentiality of Alcohol and Drug Abuse Patient Records regulations: The Federal rules restrict any use of the information to criminally investigate or prosecute any alcohol or drug abuse patient.[facility] HospitalIn the event this information is protected by the Federal Confidentiality of Alcohol and Drug Abuse Patient Records regulations: The Federal rules restrict any use of the information to criminally investigate or prosecute any alcohol or drug abuse patient.[facility] HospitalIn the event this information is protected by the Federal Confidentiality of Alcohol and Drug Abuse Patient Records regulations: The Federal rules restrict any use of the information to criminally investigate or prosecute any alcohol or drug abuse patient.[facility] HospitalIn the event this information is protected by the Federal Confidentiality of Alcohol and Drug Abuse Patient Records regulations: The Federal rules restrict any use of the information to criminally investigate or prosecute any alcohol or drug abuse patient.[facility] HospitalIn the event this information is protected by the Federal Confidentiality of Alcohol and Drug Abuse Patient Records regulations: The Federal rules restrict any use of the information to criminally investigate or prosecute any alcohol or drug abuse patient.[facility] HospitalIn the event this information is protected by the Federal Confidentiality of Alcohol and Drug Abuse Patient Records regulations: The Federal rules restrict any use of the information to criminally investigate or prosecute any alcohol or drug abuse patient.[facility] Care Teams (unrecognized sec tion and content) Team Status: Active Member Role Status Dates Silvana Lundberg MD Primary Care Provider Active Team Status: Active Member Role Status Dates Silvana uLndberg MD Primary Care Provider Active Start: March 17, 2024 Alysha Emanuel MD Attending Provider Active Star t: March 17, 2024 Team Status: Active Member Role Status Dates Silvana Lundberg MD Primary Care Provider Active Start: April 07, 2024 Brad Hodges MD Attending Provider Active St art: April 07, 2024 Team Status: Inactive Member Role Status Ezequiel Lundberg MD Primary Care Provide r, Attending Provider Active Start: May 13, 2024 End: May 13, 2024 Team Status: Inactive Member Role Status Dates Eugenia Landon APRN NP-C Attending Provider Act audelia Start: July 06, 2023 End: July 06, 2023 Silvana Lundberg MD Primary Care Provider Active Start: July 06, 2023 End: July 06, 2023 Team Status: Active Member Role Status Dates Silvana Lundberg MD Primary Care Provide r, Attending Provider Active Start: August 02, 2023 Team Status: Inactive Member Role Status Ezequiel Lundberg MD Primary Care Provide r, Attending Provider Active Start: August 31, 2023 End: August 31, 2023 Team Status: Inactive Member Role Status Ezequiel Lundberg MD Primary Care Provider Active Start: [...] Provider Active Start: June 20, 2023 Keeley Derik Attending Provider Active Start: [facility] 2023 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 Specialty Start Date End Date Silvana Lundberg MD [address] [facility] [place] [address] PCP - General Family Practice 07/15/15 Samuel Burnette Referring Pain Management 07/15/15 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 Specialty Start Date End Date Silvana Lundberg MD [address] [facility] [place] [address] PCP - General Family Practice 07/15/15 Samuel Burnette Referring Pain Management 07/15/15 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 Specialty Start Date End Date Silvana Lundberg MD [address] [facility] [place] [address] PCP - General Family Practice 07/15/15 Samuel Burnette Referring Pain Management 07/15/15 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 Specialty Start Date End Date Silvana Lundberg MD [address] [facility] [place] [address] PCP - General Family Practice 07/15/15 Samuel Burnette Referring Pain Management 07/15/15 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 Specialty Start Date End Date Silvana Lundberg MD [address] [facility] [place] [address] PCP - General Family Medicine 07/15/15 Samuel Burnette Referring Pain Management 07/15/15 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 Specialty Start Date End Date Silvana Lundberg MD [address] [facility] [place] [address] PCP - General Family Medicine 07/15/15 Samuel Burnette [address] [facility] [place] [address] [phone] Referring Pain Management 07/15/15 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 Specialty Start Date End Date Silvana Lundberg MD [address] [place] [address] PCP - General Family Medicine 07/25/22 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 Specialty Start Date End Date Silvana Lundberg MD [address] [facility] [place] [address] PCP - General Family Medicine 07/15/15 Samuel Burnette [address] [facility] [place] [address] [phone] Referring Pain Management 07/15/15 Maria Teresa Storey, PATHOLOGY SPECIALIST [address] [facility] [address] [place] [address] Family Medicine 08/16/22 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 Specialty Start Date End Date Silvana Lundberg MD [address] [facility] [place] [address] PCP - General Family Medicine 07/15/15 Samuel Burnette [address] [facility] [place] [address] [phone] Referring Pain Management 07/15/15 Maria Teresa Storey, PATHOLOGY SPECIALIST [address] [facility] [place] [address] Family Medicine 08/16/22 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 Specialty Start Date End Date Silvana Lundberg MD [address] [facility] [place] [address] PCP - General Family Medicine 07/15/15 Samuel Burnette [address] [facility] [place] [address] Referring Pain Management 07/15/15 Maria Teresa Storey, PATHOLOGY SPECIALIST [address] [facility] [place] [address] Family Medicine 08/16/22 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 Specialty Start Date End Date Silvana Lundberg MD [address] [facility] [place] [address] PCP - General Family Medicine 07/15/15 Samuel Burnette [address] [facility] [place] [address] Referring Pain Management 07/15/15 Maria Teresa Storey, PATHOLOGY SPECIALIST [address] [facility] [address] [facility] [place] [place] [address] Family Medicine 08/16/22 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 Specialty Start Date End Date Silvana Lundberg MD [address] [facility] [place] [address] PCP - General Family Medicine 07/15/15 Samuel Burnette [address] [facility] [place] [address] Referring Pain Management 07/15/15 Maria Teresa Storey, PATHOLOGY SPECIALIST [address] [place] [address] Family Medicine 08/16/22 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 Specialty Start Date End Date Silvana Lundberg MD [address] [facility] [place] [address] PCP - General Family Medicine 07/15/15 Samuel Burnette [address] [facility] [place] [address] Referring Pain Management 07/15/15 Maria Teresa Storey, PATHOLOGY SPECIALIST [address] [place] [address] Family Medicine 08/16/22 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 Specialty Start Date End Date Silvana Lundberg MD [address] [facility] [place] [address] PCP - General Family Medicine 07/15/15 Samuel Burnette [address] [facility] [place] [address] Referring Pain Management 07/15/15 Maria Teresa Storey, PATHOLOGY SPECIALIST [address] [place] [address] Family Medicine 08/16/22 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 Specialty Start Date End Date Silvana Lundberg MD [address] [facility] [place] [address] PCP - General Family Medicine 07/15/15 Samuel Burnette [address] [facility] [place] [address] Referring Pain Management 07/15/15 Maria Teresa Storey, PATHOLOGY SPECIALIST [address] [place] [address] Family Medicine 08/16/22 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 Specialty Start Date End Date Silvana Lundberg MD [address] [facility] [place] [address] PCP - General Family Medicine 07/15/15 Samuel Burnette [address] [facility] [place] [address] Referring Pain Management 07/15/15 Maria Teresa Storey, PATHOLOGY SPECIALIST [address] [facility] 1 [place] [address] Family Medicine 08/16/22 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 Specialty Start Date End Date Silvana Lundberg MD [address] [facility] [place] [address] PCP - General Family Medicine 07/15/15 Samuel Burnette [address] [facility] [place] [address] Referring Pain Management 07/15/15 Maria Teresa Storey, PATHOLOGY SPECIALIST [address] [facility] [address] [facility] 1 [place] [address] Family Medicine 08/16/22 Team Status: Inactive Member Role Status Dates Silvana Lundberg MD Attending Provider Active 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 Specialty Start Date End Date Silvana Lundberg MD [address] [facility] [place] [address] PCP - General Family Medicine 07/15/15 Samuel Burnette [address] [place] [address] Referring Pain Management 07/15/15 Cordelia Maria Teresa, PATHOLOGY SPECIALIST [address] [facility] 1 [place] [address] Family Medicine 08/16/22 Team Status: Active Member Role Status Dates PHYSICIAN NO FAMILY Primary Care Provider Active Team Status: Inactive Member Role Status Dates Silvana Lundberg MD Attending Provider Active PHYSICIAN NO FAMILY Primary Care Provider Active Team Status: Inactive Member Role Status Dates PHYSICIAN NO FAMILY Primary Care Provider Active Brad Hodges MD Attending Provider Active 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 Specialty Start Date End Date Silvana Lundberg MD [address] [place] [address] PCP - General Family Medicine 07/15/15 Samuel Burnette [address] [place] [address] Referring Pain Management 07/15/15 Maria Teresa Storey, PATHOLOGY SPECIALIST [address] [facility] [address] [place] [address] Family Medicine 08/16/22 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 Specialty Start Date End Date Silvana Lundberg MD [address] [place] [address] PCP - General Family Medicine 07/15/15 Samuel Burnette [address] [facility] [place] [address] Referring Pain Management 07/15/15 Maria Teresa Storey CNP [address] [facility] [place] [address] Family Medicine 08/16/22 Team Status: Inactive Member Role Status Dates PHYSICIAN NO FAMILY Primary Care Provider Active Start: May 03, 2023 End: May 03, 2023 Brad Hodges MD Attending Provider Active St art: May 03, 2023 End: May 03, 2023 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 Specialty Start Date End Date Silvana Lundberg MD [address] [place] [address] PCP - General Family Medicine 07/15/15 Samuel Burnette [address] [facility] [place] [address] Referring Pain Management 07/15/15 Maria Teresa Storey CNP [address] [facility] [address] [facility] [place] [address] Family Medicine 08/16/22 Asher Skaggs [address] [place] [address] Referring Orthopedics 09/12/23 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 Specialty Start Date End Date Silvana Lundberg MD [address] [facility] [place] [address] PCP - General Family Medicine 07/15/15 Samuel Burnette [address] [facility] [place] [address] Referring Pain Management 07/15/15 Maria Teresa Storey CNP [address] [facility] 1 [place] [address] Family Medicine 08/16/22 SkaggsAsher [address] [place] [address] Referring Orthopedics 09/12/23 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 Specialty Start Date End Date Silvana Lundberg MD [address] [place] [address] PCP - General Family Medicine 07/15/15 Samuel Burnette [address] [place] [address] Referring Pain Management 07/15/15 Maria Teresa Storey CNP [address] [facility] 1 [place] [address] Family Medicine 08/16/22 Asher Skaggs [address] [place] [address] Referring Orthopedics 09/12/23 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 Specialty Start Date End Date Silvana Lundberg MD [address] [place] [address] PCP - General Family Medicine 07/15/15 Samuel Burnette [address] [place] [address] Referring Pain Management 07/15/15 Maria Teresa Storey CNP [address] [facility] 1 [place] [address] Family Medicine 08/16/22 Asher Skaggs [address] [place] [address] Referring Orthopedics 09/12/23 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 Specialty Start Date End Date Silvana Lundberg MD [address] [place] [address] PCP - General Family Medicine 07/15/15 Samuel Burnette [address] [place] [address] Referring Pain Management 07/15/15 Maria Teresa Storey, SAHIL [address] [place] [address] Family Medicine 08/16/22 Asher Skaggs [address] [place] [address] Referring Orthopedics 09/12/23 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 Specialty Start Date End Date Silvana Lundberg MD [address] [place] [address] PCP - General Family Medicine 07/15/15 Samuel Burnette [address] [place] [address] Referring Pain Management 07/15/15 Maria Teresa Storey, SAHIL [address] [place] [address] Family Medicine 08/16/22 Asher Skaggs [address] [place] [address] Referring Orthopedics 09/12/23 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 Specialty Start Date End Date Silvana Lundberg MD [address] [facility] [place] [address] PCP - General Family Medicine 07/15/15 Samuel Burnette [address] [facility] [place] [address] Referring Pain Management 07/15/15 Maria Teresa Storey CNP [address] [place] [address] Family Medicine 08/16/22 Asher Skaggs [address] [place] [address] Referring Orthopedics 09/12/23 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 Specialty Start Date End Date Silvana Lundberg MD [address] [facility] [place] [address] PCP - General Family Medicine 07/15/15 Samuel Burnette [address] [facility] [place] [address] [phone] Referring Pain Management 07/15/15 Maria Teresa Storey, SAHIL [address] [place] [address] Family Medicine 08/16/22 Asher Skaggs [address] [place] [address] Referring Orthopedics 09/12/23 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 Specialty Start Date End Date Silvana Lundberg MD [address] [place] [address] PCP - General Family Medicine 07/15/15 Samuel Burnette [address] [place] [address] Referring Pain Management 07/15/15 Maria Teresa Storey CNP [address] [facility] 1 [place] [address] Family Medicine 08/16/22 Asher Skaggs [address] [place] [address] Referring Orthopedics 09/12/23 Team Status: Active Member Role Status Dates Silvana Lundberg MD Primary Care Provider Active Start: May 28, 2024 Mary Diaz DO Attending Provider Active Sta rt: May 28, 2024 Team Status: Active Member Role Status Dates Silvana Lundberg MD Primary Care Provider Active Start: May 30, 2024 Pippa Snell CMA Attending Provider Active Start: May 30, 2024 Team Status: Inactive Member Role Status Dates Silvana Lundberg MD Primary Care Provide r, Referring Provider Active Start: June 10, 2024 End: June 10, 2024 Frederic Zamarripa MD Attending Provider Active Sta rt: June 10, 2024 End: June 10, 2024 Team Status: Inactive Member Role Status Dates Silvana Lundberg MD Primary Care Provider Active Start: June 10, 2024 End: June 10, 2024 Frederic Zamarripa MD Attending Provider Active Sta rt: June 10, 2024 End: June 10, 2024 Reason for Visit (unrecogniz ed section and content) Reason Comments DVT. new patient consult Reason Comments Recheck Follow up DVT Reason Comments Results Lab results Reason Comments Results Reason Comments acute deep vein thrombosis Follow up Reason Comments Appointment Specialty Diagnoses / Procedures Referred By Contac t Referred To Contact Diagnoses Orthostatic hypotension POTS (postural orthostatic tachycardia syndrome) Procedures Tilt Table Test Carlso Krishna APRN - JARAD [address] [facility] [place] [address] Referral ID Status Reason Start Date Expiration Date V isits Requested Visits Authorized [id number] Not Required - RTA 07/24/2022 07/24/2023 1 [...] MEASUREMENT OF OXYGEN SATURATION AND CARDIAC OUTPUT [facility] [employer] Nurse Practitioner Manager [address] [place] [address] Referral ID Status Reason Start Date Expiration Date Visits Re quested Visits Authorized [id number] 1 1 Reason Comments Ankylosing Spondylitis Specialty Diagnoses / Procedures Referred By Contac t Referred To Contact Rheumatology Diagnoses Ankylosing spondylitis of multiple sites in spine (HCC) Procedures CONSULT TO RHEUM/IMMUN DISEASE OFFICE/OUTPATIENT [facility] [address] 60-74 MINUTES Berta Francis MD [address] [place] [address] Referral ID Status Reason Start Date Expiration Date V isits Requested Visits Authorized [id number] Closed PCP Requested Referral 08/16/2022 08/16/2023 1 1 Reason Comments Radiology NM Specialty Diagnoses / Procedures Referred By Contac t Referred To Contact MOLECULAR & FUNCTIONAL IMAGING Diagnoses Exertional dyspnea Other secondary pulmonary hypertension (HCC) Procedures NM LUNG VENT / PERF VQ PULMONARY VENTILATION & PERFUSION IMAGING Berta Francis MD [address] [place] [address] Molecular & Functional Imaging [address] [place] [address] Referral ID Status Reason Start Date Expiration Date V isits Requested Visits Authorized [id number] Closed Auto-Generate d Referral 08/16/2022 09/15/2023 1 1 Reason Comments New Patient Specialty Diagnoses / Procedures Referred By Contac t Referred To Contact Neurology Diagnoses Lightheadedness Change in blood pressure Procedures CONSULT TO NEUROLOGY OFFICE/OUTPATIENT NEW HIGH MDM 60-74 MINUTES Berta Francis MD [address] [place] [id number] Referral ID Status Reason Start Date Expiration Date V isits Requested Visits Authorized [id number] Closed PCP Requested Referral 08/16/2022 08/16/2023 1 1 Reason Onset Date Comments EMG 10/16/2022 Specialty Diagnoses / Procedures Referred By Contac t Referred To Contact [facility] Diagnoses Disturbance of skin sensation Procedures EMG(NEURO/NI) NERVE CONDUCTION STUDIES 9-10 STUDIES Anna Pal[place]ios, [place] [address] [facility] [place] [address] [place] [address] Referral ID Status Reason Start Date Expiration Date V isits Requested Visits Authorized [id number] Closed Auto-Generate d Referral 10/06/2022 10/07/2023 1 [...] HIGH [place] [address] [address] [place] [phone] Referral ID Status Reason Start Date Expiration Date V isits Requested Visits Authorized [id number] Closed PCP Requested Referral 09/28/2023 09/27/2024 1 [...] BE BASED ON THE PRIMARY CLINICAL RECORDS. [facility] [employer] [facility]. provides no warranty or guarantee of the accuracy or completeness of information in this document.
[2024-07-19 11:03] LABS: Prostate Specific Antigen Dx 1.08 ng/mL (<=4.00)
== END 2024-07-19 09:47 | disposition home or self-care (01) ==
PROVIDERS: PCP Family Medicine; Visit Provider Urology
DX: N40.1 Benign prostatic hyperplasia with lower urinary tract symptoms (principal)
CPT/HCPCS: 36415; 84153

== ENCOUNTER 2024-10-31 12:28 | Outpatient (OUT) | payer MEDICARE, SELFPAY ==
[2024-10-31 13:14] LABS: Hematocrit 40.2 % (42.0-54.0); Hemoglobin 12.7 g/dL (14.0-18.0); Immature Granulocytes Abs Auto 0.02 10^3/uL (0.00-0.03); Immature Granulocytes Pct Auto 0.3 % (0.0-0.5); Lymphocytes Absolute Auto 1.1 10^3/uL (1.2-3.8); Mean Corpuscular HGB Conc 31.6 g/dL (29.9-35.2); Mean Corpuscular Hemoglobin 30.8 pg (25.9-34.0); Mean Corpuscular Volume 97.6 fL (80.0-94.0); Platelet Count 291 10^3/uL (150-450); Red Blood Count 4.12 10^6/uL (4.70-6.10); White Blood Count 5.8 10^3/uL (4.0-11.0)
[2024-10-31 13:26] LABS: Alanine Aminotransferase 20 U/L (16-63); Albumin Globulin Ratio 0.7; Albumin Level 2.7 g/dL (3.4-5.0); Alkaline Phosphatase 89 U/L (46-116); Anion Gap 8.7; Aspartate Amino Transferase 14 U/L (15-37); Blood Urea Nitrogen 18.0 mg/dL (7.0-18.0); Calcium 9.4 mg/dL (8.5-10.1); Carbon Dioxide 31.6 mmol/L (21.0-32.0); Chloride 104 mmol/L (98-107); Estimated GFR (African America >60 (>=60 mL/min/1.73m^2); Estimated GFR (Non-African Ame 53 (>=60 mL/min/1.73m^2); Globulin 4.1 g/dL; Glucose 107 mg/dL (74-106); Potassium 4.3 mmol/L (3.5-5.1); Sodium 140 mmol/L (136-145); Total Protein 6.8 g/dL (6.4-8.2)
== END 2024-10-31 12:29 | disposition home or self-care (01) ==
LOC: LAB 12:32
PROVIDERS: PCP Family Medicine; Visit Provider Registered Nurse
DX: M45.0 Ankylosing spondylitis of multiple sites in spine (principal); M15.0 Primary generalized (osteo)arthritis; Z79.899 Other long term (current) drug therapy
CPT/HCPCS: 36415; 80053; 85025; 85652

== ENCOUNTER 2024-12-05 08:45 | Outpatient (RCR) | payer MEDICARE, SELFPAY | END 2024-12-16 11:08 | disposition home or self-care (01) | LOC: OT 08:45 | PROVIDERS: PCP Family Medicine; Visit Provider Anesthesiology | DX: M25.522 Pain in left elbow (principal) | CPT/HCPCS: 97035; 97110; 97140; 97166; G0283 ==

== ENCOUNTER 2025-01-05 09:07 | Outpatient (OUT) | payer MEDICARE, SELFPAY ==
--- OUTSIDE RECORDS SUMMARY | 2025-01-05 09:16 | XMS_ITS | CCD ---
Author Organization [facility] Care Team Providers Care Fire Code Inspector Name Role Phone Silvana Lundberg Primary Care Provider [phone] Aleksey Perez Attending Provider [phone] Silvana Lundberg MD Primary Care Provider Samuel Burnette Unavailable Silvana Lundberg MD Primary Care Provider Samuel Burnette Unavailable Silvana Lundberg MD Primary Care Provider SILVANA LUNDBERG Primary Care Physician [phone] Tiffanie Rosario I Unavailable Unavailable Silvana Lundberg Unavailable Silvana Lundberg MD Primary Care Provider Samuel Burnette Unavailable Silvana Lundberg MD Primary Care Provider CARLOS KRISHNA Referring Unavailable SILVANA LUNDBERG Primary Care Unavailable Cordelia BAXTER, Maria Teresa Unavailable CARLOS KRISHNA Attending Unavailable CALROS KRISHNA Admitting Unavailable DR TONY DELEON Consulting Unavailable PANCHO, DR NOBLE Primary Care Unavailable MISC, DR WALL Attending Unavailable MISC, DR WALL Admitting Unavailable TAMIKA, DR SILVANA Ko Primary Care Unavailable NIKKIE TREJO Admitting Unavailable NIKKIE TREJO Attending Unavailable DR ASHER SOLANO Consulting Unavailable TAMIKA, DR SILVANA Ko Primary Care Unavailable NIKKIE TREJO Consulting Unavailable MISC, DR WALL Consulting Unavailable MISC, DR WALL Attending Unavailable MISC, DR WALL Admitting Unavailable DR SILVANA LUNDBERG Primary Care Unavailable TAMIKA, DR SILVANA Ko Consulting Unavailable LUNDBERG, DR SILVANA Ko Attending Unavailable LUNDBERG, DR SILVANA Ko Admitting Unavailable BALL, DR NOBLE Primary Care Unavailable ALGHOTHANI, MOHAMARuss Admitting Unavailable ALGHOTHANI, MOHFOX Attending Unavailable LUNDBERG, [...] Unavailable BALL, DR NOBLE Primary Care Unavailable BRYSON ENG Attending Unavailable LUNDBERG, DR SILVANA Ko Primary Care Unavailable ALBERTINA, BRYSON Admitting Unavailable WEST, DR MAJOR Jackson Consulting Unavailable ALBERTINA, BRYSON Consulting Unavailable MADAY, ANGELES Consulting Unavailable FAREED ., DANIS Consulting Unavailable HODGES, DR SALINAS Admitting Unavailable [...] LUNDBERG, DR SILVANA Ko Primary Care Unavailable Lundberg, MD Silvana Ko Attending Provider [phone] NO FAMILY, PHYSICIAN Primary Care Provider Unava MD Brad Lynch Attending Provider NO FAMILY, PHYSICIAN Primary Care Provider Unava MD Brad Lynch Attending Provider NO FAMILY, PHYSICIAN Primary Care Provider Unava MD Brad Lynch Attending Provider [phone] ANNA COLLINS Attending Unavailable EUGENIA LANDON Referring Unavailab ANNA Isaac Attending Unavailable Silvana Lundberg MD Primary Care Provider Cordelia BAXTER, Maria Teresa Unavailable Asher Skaggs Unavailable MD Silvana Lundberg Primary Care Provider JARAD Enrique-Shante Zurita Attending Provider PADUBIDRI, ANOKHA Referring Unavailable SILVANA LUNDBERG Primary Care Unavailable PADUBIDRI, ANOKHA Attending Unavailable SILVANA LUNDBERG Primary Care Unavailable PADUBIDRI, ANOKHA Referring Unavailable SILVANA LUNDBERG Primary Care Unavailable PADUBIDRI, ANOKHA Referring Unavailable SILVANA LUNDBERG Primary Care Unavailable PADUBIDRI, ANOKHA Attending Unavailable PADUBIDRI, ANOKHA Referring Unavailable SILVANA LUNDBERG Primary Care Unavailable Silvana Lundberg MD Primary Care Provider Frederic Zamarripa MD Attending Provider [phone] SHAGGY MUÑOZ Attending Unavailab SHAGGY Hall Attending Unavailab NIKKIE Mao Attending Unavailable BALBIR OSBORNE Attending Unavailable EUGENIA MUÑOZ Attending Unavailable Jerrod BELL Attending Unavailable Jerrod BELL Referring Unavailable Jerrod BELL Admitting Unavailable Jerrod BELL Attending Unavailable Silvana Lundberg MD Primary Care Provider [phone] Frederic Zamarripa MD Attending Provider Asher Skaggs Unavailable Estella Tadeo NP Attending Provider Silvana Lundberg MD Primary Care Provider Frederic Zamarripa MD Attending Provider Silvana Lundberg MD Attending Provider Silvana Lundberg MD Primary Care Provider Frederic Zamarripa MD Attending Provider Carlyle TILE AND MOTTLE SUPERVISOR, Estella Attending Provider Safia Enrique APRN Attending Provider Silvana Lundberg MD Primary Care Provider Frederic Zamarripa MD Attending Provider Silvana Lundberg Primary Care Unavailable Dallin, Frederic S Admitting Unavailable DallinFrederic barfield S Attending Unavailable Carlyle, Estella Attending Unavailable Silvana Lundberg Primary Care Unavailable Francheska Tadeogy Admitting Unavailable Silvana Lundberg Primary Care Unavailable Dallin Frederic S Admitting Unavailable Omar Zamarripaif S Attending Unavailable ALYSHA EMANUEL Referring Unavailable SILVANA LUNDBERG Primary Care Unavailable SILVANA LUNDBERG Primary Care Unavailable MISTY WALLACE Referring Unavailable ALYSHA EMANUEL Attending Unavailable SILVANA LUNDBERG Primary Care Unavailable Allergies Allergy Classification Reported Allergen(s) Allergy Type Date of Onset Reaction(s) Facility Angiotensin 2 Receptor Blockers (ARB) (1 source) Losartan Drug Allergy 05-30-19 23 Unknown [facility] Angiotensin Converting Enzyme (HORTENCIA) Inhibitors (1 source) Lisinopril Drug Allergy 09-17-19 22 Unknown [facility] Opioid Agonists (1 source) Morphine Drug Allergy 08-25-19 Intolerance [facility] Work Phone: (20 sources) Lisinopril; Translations: [lisinopril] Drug Allergy 09-17-19 22 Unknown [facility] (20 sources) Morphine; Translations: [morphine] Drug Allergy 08-25-19 Intolerance [facility] Work Phone: Comment on above: Tolerated hydromorph one during 11/2016 admission (20 sources) Losartan; Translations: [LOSARTAN] Drug Allergy 05-30-19 23 Unknown [facility] (2 sources) Morphine Drug Allergy 11-07-19 15 [facility] Repository (2 sources) patient allergy list reviewed by nurse or physicia Propensity to adverse reactions 04-15-20 14 Comment:Done [employer] Other (2 sources) Allergies Reconciled Propensity to adverse reactions Unknown [employer] Other (1 source) Lisinopril Drug Allergy 10-29-19 [facility] Repository (1 source) Morphine Drug Allergy 10-29-19 [facility] Repository Medications Current Medications Medication Drug Class(es) Dates Sig (Normalized) Sig (Original) [id number] actuat albuterol 0.09 mg/actuat metered dose inhaler (20 sources) beta2-Adrenergic Agonist Start: 10-09-2024 take 2 puff(s) by inhalation every four to six hours as needed for wheezing Start: 09-08-2024 End: 10-09-2024 take 1 puff(s) by inhalation every four to six hours as needed for wheezing Albuterol Sulfate 90 mcg/actuation HFA aerosol inhaler Discontinued 2 PUFF INHALATION EVERY 4-6 HOURS as needed for shortness of breath or wheezing 6.7 September 08, 2024 12:00am October 09, 2024 12:17pm Start: 07-06-2023 End: 10-01-2023 take 1 puff(s) by inhalation every four hours as needed Albuterol Sulfate 90 mcg/actuation HFA aerosol inhaler Discontinued 1 PUFF INHALATION Every 4 hours as needed July 06, 2023 12:00am October 01, 2023 9:14am Start: 09-20-2021 End: 02-05-2023 albuterol HFA (PROVENTIL [...] needed Inhalation every 4 hrs PRN Active Albuterol Sulfate 90 mcg/actuation HFA aerosol inhaler (1 source) Start: 09-08-2024 take 1 puff(s) by inhalation every four to six hours as needed for wheezing Albuterol Sulfate 90 mcg/actuation HFA aerosol inhaler Active 2 PUFF INHALATION EVERY 4-6 HOURS as needed for shortness of breath or wheezing 6.7 September 08, 2024 12:00am Amitriptyline (3 sources) Tricyclic Antidepressant Amitriptyline HCl Active End: 09-21-2021 take 1 tablet [...] for 10 days Nov, Active Aspir 81 (4 sources) Start: 7 take 81 mg by mouth once daily Aspir 81 81 mg, Oral, Daily, Refills(s) 0, Prophylaxis Start Date: 11/19/16 Status: Ordered aspirin 81 mg chewable tablet (20 sources) Platelet Aggregation Inhibitor, Nonsteroidal Anti-inflammatory Drug Start: 4 take 1 tablet by mouth once daily take 81 mg by mouth once daily A SPIRIN ORAL Take 81 mg by mouth once daily. Active take 1 tablet by baltazar th every twenty-four hours Aspirin 81 MG 1 tablet Orally Once a day Active Comment on above: Take 81 mg by mouth once daily. atorvastatin 40 mg oral tablet (20 sources) HMG-CoA Reductase Inhibitor Start: take 1 tablet by mouth once daily Comment on above: Take 40 mg by mouth once daily. azithromycin 250 mg oral tablet (4 sources) Macrolide Antimicrobial Start: calcium citrate 950 mg oral tablet (5 sources) Start: take 1 tablet by mouth twice daily calcium citrate (CALCITRATE) 200 mg (950 mg) tab Take 1 tablet by mouth two times a day. 180 tablet 3 02/08/2024 Active cholecalciferol 1.25 mg oral capsule (6 sources) Vitamin D Start: End: 04-09-2 025 take 1 capsule by mouth every week cholecalciferol, Vitamin D3, (VITAMIN D3) 1,250 mcg (50,000 unit) cap capsule TAKE 1 CAPSULE BY MOUTH ONE TIME A WEEK. 12 capsule 1 07/30/2024 Active cyclobenzaprine (18 sources) Muscle Relaxant Start: 024 cyclobenzaprine Refills(s) 0 Start Date: 07/16/23 Status: Ordered End: 10-06-2022 take 1 tablet by mouth three times daily cyclobenzaprine (FLEXERIL) 10 mg tablet Take 10 mg by mouth three times daily. 0 10/06/2022 Discontinued (Course of therapy completed) Comment on above: Take 10 mg by mouth three times daily. diclofenac sodium 0.01 mg/mg topical gel (1 source) Nonsteroidal Anti-inflammatory Drug Start: 11-25-2024 DULoxetine 60 mg delayed release oral capsule (20 sources) Serotonin and Norepinephrine Reuptake Inhibitor Start: 07-06-2023 take 1 capsule by mouth twice daily Start: 10-14-2013 take 60 mg by mouth twice andrae y Cymbalta 60 mg, Oral, BID, Refills(s) 0, Depression Start Date: 10/14/13 Status: Ordered DULoxetine HCl A ctive Comment on above: Take 60 mg by mouth twice daily. folic acid 1 mg oral tablet (20 sources) Start: 11-19-2016 take 1 tablet by mouth once daily Folic Acid Activ e Comment on above: [...] 1 tablet by mouth once daily Leflunomide Acti ve Comment on above: Take 20 mg by mouth once daily. methotrexate 2.5 mg oral tablet (20 sources) Folate Analog Metabolic Inhibitor Start: 07-06-2023 take 1 tablet by mouth every week Start: 12-09-2016 methotrexate 2 .5 mg Tab [...] Refills(s) 0 Start Date: 05/01/22 Status: Ordered 24 hr metoprolol succinate 50 mg extended release oral tablet (20 sources) beta-Adrenergi c Julius Start: 025 take 1 tablet by mouth once daily Start: 08-26-2024 take 1 tablet by baltazar th once daily Metoprolol Succinate 50 mg tablet extended release 24 hr Active 0 .ROUTE .COMPLEX 90 August 26, 2024 2:26pm TAKE 1 TABLET BY MOUTH EVERY DAY Start: 07-06-2023 End: 10-01-2023 take 1 capsule by mouth once daily Metoprolol Succinate 25 mg capsule,sprmaxwell,ER 24hr Discontinued 25 MG PO Daily July 06, 2023 12:00am October 01, 2023 9:44am Start: 06-04-2022 End: 08-26-2024 take 1 tablet by mouth once daily Metoprolol Succinate 50 mg tablet extended release 24 hr Discontinued 50 MG PO daily 90 October 01, 2023 12:00am March 04, 2024 11:44am Start: 06-04-2022 take 50 mg by mouth [...] Status: Ordered take 1 capsule by mo [facility] once daily Metoprolol Succinate 50 MG 1 capsule Orally Once a day Active Metoprolol Succi milvia Active Comment on above: Take 1 tablet by baltazar th once daily. Take 100 mg by mouth once daily. Take 50 mg by mouth once daily. omeprazole 20 mg delayed release oral capsule (20 sources) Proton Pump Inhibitor Start: 07-06-2023 take 1 capsule by mouth once daily Start: 10-14-2013 take 20 mg by mouth once daily omeprazole 20 mg, Oral, Daily, Refills(s) 0, Control of stomach acid Start Date: 10/14/13 Status: Ordered Omeprazole Activ e Comment on above: Take 20 mg by mouth once daily. oxaprozin 600 mg oral tablet (20 sources) Nonsteroidal Anti-inflammatory Drug Start: 07-04-2021 take 1 tablet by mouth twice daily take 2 tablets by mouth once jesse [...] activity, # 30 tab(s), Refills(s) 4, Pharmacy: [facility]/pharmacy #[id number], 188, cm, 07/16/23 10:06:00 EDT, Height/Length [...] a day for 2 days Sep, Active sulfamethoxazole 800 mg / trimethoprim 160 mg oral tablet (4 sources) Dihydrofolate Reductase Inhibitor Antibacterial, Sulfonamide Antimicrobial Start: 10-31-2022 take 1 tablet by mouth every twelve hours Bactrim DS 800-160 MG 1 tablet Orally Twice a day for 10 day(s) Oct, Active tamsulosin hydrochloride 0.4 mg oral capsule (20 sources) alpha-Adrenergic Julius Start: 07-06-2023 take 1 capsule by mouth once daily Start: 11-20-2022 take 1 capsule by mo [facility] twice daily tamsulosin 0.4 mg Cap 0.4 mg = 1 cap(s), Oral, BID, # 180 caplet(s), Refills(s) 3, Pharmacy: [facility]/pharmacy #[id number], 188, cm, 05/01/22 9:58:00 EST, Height/Length Dosing, 131.8, kg, 05/01/22 9:58:00 EST, Weight Dosing Start Date: 11/20/22 Status: Ordered Start: 07-04-2021 take 1 capsule by [facility] twice daily tamsulosin 0.4 mg Cap 0.4 mg = 1 cap(s), Oral, BID, # 180 caplet(s), Refills(s) 3, Pharmacy: [facility]/pharmacy #[id number], 188, cm, 07/04/21 9:20:00 EDT, Height/Length Dosing, 131.8, kg, 07/04/21 9:20:00 EDT, Weight Dosing Start Date: 07/04/21 Status: Ordered Comment on above: Take 0.4 mg by mouth once daily. 28 actuat teriparatide 0.02 mg/actuat pen injector (8 sources) Parathyroid Hormone Analog Start: 024 inject 20 ug by subcutaneous injection once daily FORTEO 20 mcg/dose (600mcg/2.4mL) Take 20 mcg subcutaneously daily 7.2 mL 3 04/07/2024 Active traMADol hydrochloride 50 mg oral tablet (7 sources) Opioid Agonist Start: 023 take 1 tablet by mouth three [...] pain October 01, 2023 October 01, 2023 9:52am Start: 10-01-2023 End: 05-13-2024 take 1 tablet by mouth twice daily as needed for pain Oxycodone-Acetaminophen 5-325 mg tablet Discontinued 1 TAB PO Twice daily as needed for pain October 01, 2023 May 13, 2024 11:48am Start: 06-20-2023 End: 05-13-2024 take 1 tablet by mouth twice daily as needed for pain Oxycodone-Acetaminophen 5-325 mg tablet Discontinued 1 TAB PO Twice daily as needed for pain 60 June 20, 2023 September 05, 2023 8:36am Start: 03-29-2023 oxyCODONE-acet aminophen (PERCOCET) 5-325 mg [...] baltazar th every 8 hours as needed. ARIPiprazole 5 mg oral tablet (20 sources) Atypical Antipsychotic Start: 11-28-19 End: 10-22-19 take 1 tablet by mouth once daily at bedtime Aripiprazole 5 mg tablet Discontinued 0 .ROUTE .COMPLEX June 19, 2024 2:13pm October 21, 2024 4:04pm TAKE 1 TABLET BY MOUTH EVERYDAY AT BEDTIME Start: 10-01-2023 End: 10-01-2023 take 4 tablets by mouth once daily at bedtime Aripiprazole (Abilify) 5 mg tablet Discontinued 20 MG PO Daily at bedtime October 01, 2023 9:15am October 01, 2023 12:38pm Start: 09-05-2023 End: 11-28-2023 take 1 tablet by mouth once daily at bedtime Aripiprazole (Abilify) 5 mg tablet Discontinued 5 MG PO Daily at bedtime October 01, 2023 12:00am November 28, 2023 10:00pm B-12 - up to 1000 mcg (16 [...] Discontinued 2 PUFF INHALATION Twice daily July 06, 2023 12:00am October 01, 2023 9:16am Start: 05-31-2022 End: 02-05-2023 take 2 puff(s) [...] with meals. cephalexin 500 mg oral capsule (14 sources) Cephalosporin Antibacterial Start: 07-06-19 End: 08-31-19 take 1 capsule by mouth twice daily Cephalexin 500 mg capsule Discontinued 500 MG PO Twice daily 14 7 July 06, 2023 12:00am August 31, 2023 11:10am ferrous sulfate 325 mg oral tablet (20 sources) Start: 07-06-19 End: 08-31-19 take 1 tablet by mouth three times weekly Ferrous Sulfate 325 mg (65 mg iron) tablet Discontinued 325 MG PO 3 Times a week July 06, 2023 12:00am August 31, 2023 11:11am Start: 04-28-2023 End: 12-04-2023 take 1 tablet [...] propionate 0.05 mg/actuat metered dose nasal spray (17 sources) Corticosteroid Start: 07-06-2023 End: 08-31-2023 Fluticasone Propionate 50 mcg/actuation spray,suspension Discontinued 1 SPRAY INTRANASAL Daily July 06, 2023 12:00am August 31, 2023 11:11am Start: 11-29-2022 take 1 spray(s) nasa l [...] oral tablet (3 sources) Loop Diuretic End: 12-28-2021 take 1 tablet by mouth once daily [...] Date: 07/16/23 Status: Ordered Start: 07-06-2023 End: 07-11-2024 take 1 capsule by mouth three times daily Gabapentin 300 mg capsule Discontinued 300 MG PO Three times daily 90 May 13, 2024 12:09pm July 11, 2024 10:27am Start: 02-21-2018 take 3 capsules by m outh three times daily Start: 08-23-2017 End: 09-21-2021 take 1 tablet [...] 1/2 TABLET BY M OUTH EVERY DAY midodrine hydrochloride 10 mg oral tablet (8 sources) alpha-Adrenergic Agonist Start: 07-13-19 End: 10-07-19 take 1 tablet by mouth three times daily midodrine (PROAMATINE) 10 mg tablet Take 10 mg by mouth three times daily. 0 07/12/2022 10/06/2022 Discontinued (Course of therapy completed) Comment on above: Take 10 mg by mouth three times daily. nystatin [id number] unt/ml oral suspension (6 sources) Polyene Antifungal Start: 05-17-19 take 4 mL by mouth four times daily Nystatin [id number] UNIT/ML 4 ml Mouth/Throat Four times a [...] 60 mg by mouth three times daily. spironolactone 25 mg oral tablet (20 sources) Aldosterone Antagonist Start: 01-31-20 End: 10-07-19 take 0.5 tablet by mouth once daily Spironolactone 25 mg tablet Discontinued 0 .ROUTE .COMPLEX July 02, 2024 12:41pm October 06, 2024 4:37pm TAKE 1/2 TABLET BY MOUTH EVERYDAY Start: 10-01-2023 End: 01-31-2024 Spironolactone 25 mg tablet Discontinued 12.5 MG PO Daily October 01, 2023 9:44am January 31, 2024 1:03pm Start: 05-01-2022 End: 10-01-2023 take 1 tablet by mouth once daily Spironolactone 25 mg tablet Discontinued 25 MG PO Daily July 06, 2023 12:00am October 01, 2023 9:46am spironolactone ( ALDACTONE) 25 mg tablet Take 17.5 mg by mouth once daily. Active Comment on above: Take 25 mg by mouth once daily. Take 17.5 mg by mout h once daily. tiZANidine 4 mg oral tablet (3 sources) Central alpha-2 Adrenergic Agonist Start: 7 End: 2 take 2 tablets by mouth every eight hours as needed tiZANidine (ZANAFLEX) 4 mg tablet Take 2 tablets by mouth three times daily as needed. 0 10/30/2016 09/21/2021 Discontinued tiZANidine HCl A ctive Comment on above: Take 2 tablets by mo uth three times daily as needed. triamcinolone acetonide 1 mg/ml topical cream (14 sources) Corticosteroid Start: 024 End: Triamcinolone Acetonide 0.1 % cream Discontinued 1 APPLIC TOPICAL Twice daily 80 July 06, 2023 12:00am October 01, 2023 9:17am 24 hr venlafaxine 150 mg extended release oral capsule (20 sources) Serotonin and Norepinephrine Reuptake Inhibitor Start: End: take 1 capsule by mouth once daily at mealtime Venlafaxine 150 mg capsule,extended release 24hr Discontinued 0 .ROUTE .COMPLEX January 31, 2024 1:03pm May 13, 2024 12:10pm TAKE 1 CAPSULE BY MOUTH EVERY DAY WITH FOOD FOR 30 DAYS Start: 07-16-2023 take 1 capsule by mo uth once daily venlafaxine 150 mg Cap-ER 150 mg = 1 cap(s), Oral, Daily, Refills(s) 0 Start Date: 07/16/23 Status: Ordered Start: 07-09-2023 End: 10-21-2024 take 1 capsule by mouth once daily at mealtime Venlafaxine 150 mg capsule,extended release 24hr Discontinued 0 .ROUTE .COMPLEX May 13, 2024 12:10pm August 14, 2024 9:40am TAKE 1 CAPSULE BY MOUTH EVERY DAY WITH FOOD FOR 30 DAYS Start: 07-06-2023 End: 07-09-2023 take 1 capsule by mouth once daily Venlafaxine 150 mg capsule,extended release 24hr Discontinued 150 MG PO Daily July 06, 2023 12:00am July 09, 2023 10:07am Start: 05-08-2022 take 1 capsule by mo [...] Translations: [Allergy, unspecified, initial encounter] Episodic Asthma (20 sources) Moderate persistent asthma; Translations: [Moderate persistent asthma, uncomplicated] Chronic Blindness and vision defects (2 sources) Visual disturbance; Translations: [Other visual disturbances] Episodic Calculus of urinary tract (20 sources) Kidney stone; Translations: [Calculus of kidney] 07-19-2015 Episodic Cardiac dysrhythmias (3 sources) Postural orthostatic tachycardia syndrome ; Translations: [POTS (postural orthostatic tachycardia syndrome)] Chronic Chronic kidney disease (20 sources) Chronic kidney disease stage 3; Translations: [Stage 3 chronic kidney disease, unspecified whether stage 3a or 3b CKD] 07-06-2023 Chronic Chronic obstructive pulmonary disease and bronchiectasis (9 sources) Bronchitis; Translations: [Bronchitis, not specified as acute or chronic] 09-09-2024 Episodic Congestive heart failure; nonhypertensive (20 sources) Chronic diastolic heart failure; Translations: [Chronic diastolic (congestive) heart failure] Onset: 2 Chronic Coronary atherosclerosis and other heart disease (3 sources) Coronary arteriosclerosis; Translations: [Atherosclerotic heart disease of [place] coronary artery without angina pectoris] 11-30-2022 Chronic Deficiency and other anemia (20 sources) Pernicious anemia; Translations: [Vitamin B12 deficiency [...] deficiency anemias Episodic Disorders of lipid metabolism (3 sources) Hyperlipidemia; Translations: [Pure hypercholesterolemia, unspecified] Onset: 2 01-02-2024 Chronic Esophageal disorders (20 sources) Gastroesophageal reflux disease; Translations: [Gastro-esophageal reflux disease without esophagitis] 12-15-2016 Chronic Essential hypertension (17 sources) Benign essential hypertension; Translations: [Essential hypertension, benign] Onset: 7 07-06-2023 Chronic Fluid and electrolyte disorders (1 source) Hyperkalemia Episodic Genitourinary symptoms and ill-defined conditions (6 [...] Neoplasms of unspecified nature or uncertain behavior (2 sources) Monoclonal gammopathy (clinical); Translations: [Monoclonal gammopathy] 12-04-2023 [...] aftercare (1 source) Other long term care phlebotomist (current) drug therapy; Translations: [OTH VAULT PERSON CURRENT DRUG THERAPY] Onset: 3 Episodic Other [...] Translations: [Pain in right leg] Episodic Other connective tissue disease (9 sources) Lateral epicondylitis of left humerus; Translations: [Lateral epicondylitis, left elbow] 08-19-2024 Episodic Other connective tissue disease (4 sources) Lateral epicondylitis, left elbow; Translations: [Lateral epicondylitis] Onset: 5 08-19-2024 Episodic Other diseases of kidney and ureters [...] system 10-08-2014 Chronic Other nervous system disorders (20 sources) Peripheral nerve disease ; Translations: [Polyneuropathy, [...] Onset: 5 Chronic Other nervous system disorders (20 sources) Chronic pain; Translations: [Other chronic pain] 06-10-2024 Chronic Other nervous system disorders (3 sources) Polyneuropathy, unspecified; Translations: [Unspecified hereditary and idiopathic peripheral neuropathy] 05-13-2024 Chronic Other nervous system disorders (14 sources) Other chronic pain; Translations: [Other chronic [...] right elbow] Episodic Other non-traumatic joint disorders (20 sources) Pain in left shoulder; Translations: [Left [...] unspecified obesity type (HCC)] 02-08-2024 Chronic Other skin disorders (14 sources) Eruption; Translations: [Rash and other nonspecific [...] otitis media, left ear] Episodic Pathological fracture (15 sources) Pathological fracture of proximal end of femur; Translations: [Pathological fracture, hip, unspecified, sequela] 08-31-2023 Episodic Alexa-; endo-; and myocarditis; cardiomyopathy (except that caused by tuberculosis or sexually transmitted disease) (20 sources) Dilated cardiomyopathy; Translations: [Cardiomyopathy, unspecified] Onset: [...] for unspecified reasons] Episodic Residual codes; unclassified (6 sources) Localized edema; Translations: [Localized edema] 05-13-2024 Episodic Residual codes; unclassified (14 sources) H/O Spinal surgery; Translations: [Other specified postprocedural states] 07-06-2023 Episodic Residual codes; unclassified (1 source) Pain; Translations: [Pain, unspecified] 09-27-2023 Episodic Residual codes; unclassified (1 source) Pain, unspecified; Translations: [Pain] Onset: 4 Episodic Residual codes; unclassified (11 sources) Edema of lower extremity; Translations: [Localized edema] 05-13-2024 Episodic Rheumatoid arthritis and related disease (20 sources) Ankylosing spondylitis; Translations: [Ankylosing spondylitis of unspecified sites in spine] Onset: 2 12-15-2016 Chronic Screening and history of mental health and substance abuse codes (20 sources) Ex-smoker; Translations: [Personal history of nicotine dependence] Onset: 9 07-19-2015 Episodic Skin and subcutaneous tissue infections (20 sources) Cellulitis of right lower limb; Translations: [Cellulitis and abscess of lower leg] Onset: 6 Episodic Spondylosis; intervertebral disc disorders; other back problems (20 sources) Arthritis of spine; Translations: [Unspecified inflammatory spondylopathy, site unspecified] Onset: 8 Chronic Syncope (1 source) Near syncope; Translations: [Syncope [...] 01-15-2018 Episodic Acute and unspecified renal failure (12 sources) Acute renal failure syndrome; Translations: [Acute [...] unspecified; Translations: [ANEMIA UNSPECIFIED] Onset: 12-15-2021 Episodic Fracture of neck of femur (hip) (20 sources) Fracture of unspecified part of neck of left femur, sequela; Translations: [Closed fracture of hip] Onset: 11-29-2023 Episodic Intestinal infection (20 sources) Clostridium difficile [...] Onset: 08-13-2017 Episodic Other aftercare (1 source) 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; Translations: [RETIREMENT CURRENT USE OF ASPIRIN] Onset: 09-22-2021 Episodic Other aftercare (12 sources) Patient encounter status; Translations: [Encounter for [...] injuries and conditions due to external causes (12 sources) Open wound; Translations: [Other injury of [...] Onset: 09-24-2018 Episodic Other non-traumatic joint disorders (5 sources) Hip pain; Translations: [Pain in right hip] Onset: 07-19-2015 07-19-2015 Episodic Other screening for suspected conditions (not mental disorders or infectious disease) (6 sources) Abnormal results of pulmonary function studies; Translations: [Electrocardiogram abnormal] Onset: 01-26-2017 09-28-2023 Episodic Other upper respiratory infections (4 sources) [...] vaccination and inoculation, Influenza] Onset: 01-11-2015 Episodic Spondylosis; intervertebral disc disorders; other back problems (20 sources) Backache; Translations: [Dorsalgia, unspecified] Onset: 01-11-2015 09-12-2016 Episodic Unclassified (1 source) COUGH, UNSPECIFIED; Translations: [COUGH, UNSPECIFIED] Onset: 09-20-2021 Results Test Name Value Interpretation Reference Range Facility [facility] 12-10-2024 CNPN Telephone (HEMASA) ELENA FELIX ([id number]) 1960 M Date Time Provider Department 12/10/24 PANFILO CARRANZA During your visit today, we recorded the following information about you: Panfilo Carranza RN 12/10/2024 8:45 AM Addendum Pt is a ROBBY of [facility]. No lab appt scheduled or labs ordered Mehul: labs pended, as previously obtained, please review and sign (add, if needed) RTC 12/15 PSS: Pt will need lab appt prior to Mehul, if orders added, please MAHSA Braun Amy S 12/10/2024 9:19 AM Signed Scheduled patient for lab on 12/15/2024 at 10:15 am. ABEL Rhoades Amy S 12/10/2024 10:28 AM Signed Lvm for patient to call back to confirm the date AND time of lab appointment. ABEL Rhoades Allergies As of Date: 12/10/2024 Noted Allergy Reaction MORPHINE 08/24/2016 5 - Intolerance Comments: Patient thinks that with previous surgery he had a mental psychotic reaction with the combination of Lyrica and Morphine. LISINOPRIL 09/16/2021 16 - Unknown LOSARTAN 05/30/2022 16 - Unknown Date Reviewed: 12/10/2024 Reviewed by: Tiffany Farrell, PAObed - Fully Assessed Primary Visit Diagnosis:Monoclonal gammopathy [D47.2] Order(s):COMPLETE BLOOD COUNT AND DIFFERENTIAL [SQCBCDIF] Order #: [id number] FUTURE COMPREHENSIVE METABOLIC PANEL [SQCMP] Order #: [id number] FUTURE MONOCLONAL PROTEIN, SERUM (BLOOD) [SQSERMPA] Order #: [id number] FUTURE PROTEIN ELECTROPHORESIS SERUM W/INTERP [SQSEPG] Order #: [id number] FUTURE LACTATE DEHYDROGENASE [SQLD6] Order #: [id number] FUTURE B2 MICROGLOBULIN [SQB2M] Order #: [id number] FUTURE URIC ACID [SQURIC] Order #: [id number] FUTURE PHOSPHORUS INORGANIC [SQPHOS] Order #: [id number] FUTURE CALCIUM, TOTAL [SQCA] Order #: [id number] FUTURE PROTEIN, TOTAL [SQTP] Order #: [id number] FUTURE Prescriptions as of 12/10/2024 - cholecalciferol, Vitamin D3, (VITAMIN D3) 1,250 mcg (50,000 unit) cap capsule TAKE 1 CAPSULE BY MOUTH ONE TIME A WEEK. - FORTEO 20 mcg/dose (600mcg/2.4mL) Take 20 mcg subcutaneously daily - Teriparatide 20 mcg/dose (600mcg/2.4mL) Take 20 mcg subcutaneously daily - Insulin [place], Disposable, (BD ULTRAFINE III MINI PEN) 31 gauge x 3/16 USE WITH TERIPARATIDE PENS ONCE TIMES DAILY - calcium citrate (CALCITRATE) 200 mg (950 mg) tab Take 1 tablet by mouth two times a day. - ARIPiprazole (ABILIFY) 5 mg tablet Take [...] twice daily. Problem List As Of Date 12/10/2024 Noted Resolved Ankylosing spondylitis (HCC) [M45.9] Esophageal [...] to infectious *02/05/2017 Sinus tachycardia [R00.0] 02/05/2017 [place] (more content not included)... Normal [facility] X-ray reportOrdered By: Chas Willis on 12-10-2024 Study report [facility] Main [address] [address] XRay Report Signed Patient: Elena Felix MR#: [id number] : 1960 Acct:[id number] Age/Sex: 64 / M ADM Date: 5 Loc: XD Room: Type: REG CLI Attending Dr: Frederic Zamarripa MD Copies to: Frederic Zamarripa MD~ Ordering Provider: Frederic Zamarripa MD Date of Service: 12/10/24 XR/XR elbow LT min 3V*: M77.12 - Lateral epicondylitis, left elbow 4 views left elbow INDICATION: Lateral epicondylitis left elbow COMPARISON: None FINDINGS: No fracture or dislocation identified. Mild degenerative changes. Trace joint effusion. Soft tissues unremarkable. XR/XR elbow LT min 3V* IMPRESSION: Minimal degenerative change. Negative acute osseous abnormality. Impression dictated by: Philip Willis M.D. 12/10/2024 4:41 PM Dictation Location: [place] [address] Transcribed By: [facility] 12/10/24 164 Dictated By: Philip Willis MD 12/10/24 1640 Signed By: 12/10/24 1641 [facility] Work Phone: XR elbow LT min 3V*on 2024 XR elbow LT min 3V* [facility] Main [address] [address] XRay Report Signed Patient: Elena Felix MR#: [id number] 29 : 1960 Acct:[id number] Age/Sex: 64 / M ADM Date: 12/10/24 Loc: XD Room: Type: REG CLI Attending Dr: Frederic Zamarripa MD Copies to: Frederic Zamarripa MD Ordering Provider: Frederic Zamarripa MD Date of Service: 12/10/24 XR/XR elbow LT min 3V*: M77.12 - Lateral epicondylitis, left elbow 4 views left elbow INDICATION: Lateral epicondylitis left elbow COMPARISON: None FINDINGS: No fracture or dislocation identified. Mild degenerative changes. Trace joint effusion. Soft tissues unremarkable. XR/XR elbow LT min 3V* IMPRESSION: Minimal degenerative change. Negative acute osseous abnormality. Impression dictated by: Philip Willis M.D. 12/10/2024 4:41 PM Dictation Location: [place] [address] Transcribed By: [facility] 12/10/24 1641 Dictated By: Philip Willis MD 12/10/24 1640 Signed By: 12/10/24 1641 Normal [facility] Basophils Auto (Bld) [#/Vol] Ordered By: Safia Enrique on 10-31-2024 Basophils (Bld) [#/Vol] 0.0 10 3/uL 0.0-0.1 [facility] Basophils/100 WBC Auto (Bld) Ordered By: Safia Enrique on 10-31-2024 Basophils/100 WBC (Bld) 0.7 % 0.2-2.0 [facility] Eosinophils/100 WBC Auto (Bl d)Ordered By: Safia Enrique on 10-31-2024 Eosinophils/100 WBC (Bld) 5.0 % 0.9-7.0 [facility] Erythrocyte distribution wid th Auto (RBC) [Ratio]Ordered By: Safia Enrique on 10-31-2024 Erythrocyte distribution width (RBC) [Ratio] 15.9 % High 11.0-15.0 [facility] Estimated glomerular filtrat ion rate (GFR) non- AmericanOrdered By: Safia Enrique on 10-31-2024 GFR/1.73 sq M.predicted among non-blacks MDRD (S/P/Bld) [Vol rate/Area] 53 mL/min/{1.73_m2} Low >=60 mL/min/1.7 3m 2 [facility] Globulin Calc (S) [Mass/Vol] Ordered By: Safia Enrique on 10-31-2024 Globulin (S) [Mass/Vol] 4.1 g/dL [facility] Hematocrit Auto (Bld) [Volum e fraction]Ordered By: Safia Enrique on 10-31-2024 Hematocrit (Bld) [Volume fraction] 40.2 % Low 42.0-54.0 [facility] Hemoglobin [Mass/volume] in BloodOrdered By: Safia Enrique on 10-31-2024 Hemoglobin (Bld) [Mass/Vol] 12.7 g/dL Low 14.0-18.0 [facility] Laboratory - Chemistry and C hemistry - challengeOrdered By: Safia Enrique on 10-31-2024 Albumin [Mass/Vol] 2.7 g/dL Low 3.4-5.0 [facility] ALP [Catalytic activity/Vol] 89 U/L 46-116 [facility] ALT [Catalytic activity/Vol] 20 U/L 16-63 [facility] AST [Catalytic activity/Vol] 14 U/L Low 15-37 [facility] Bilirubin [Mass/Vol] 0.6 mg/dL 0.2-1.0 [facility] Calcium [Mass/Vol] 9.4 mg/dL 8.5-10.1 [facility] Chloride [Moles/Vol] 104 mmol/L 98-107 [facility] CO2 [Moles/Vol] 31.6 mmol/L 21.0-32.0 [facility] Creatinine [Mass/Vol] 1.35 mg/dL High 0.70-1.30 [facility] GFR/1.73 sq M.predicted MDRD (S/P/Bld) [Vol rate/Area] mL/min/{1.73_m2} >=60 mL/min/1.7 3m 2 [facility] Glucose [Mass/Vol] 107 mg/dL High 74-106 [facility] Potassium [Moles/Vol] 4.3 mmol/L 3.5-5.1 [facility] Protein [Mass/Vol] 6.8 g/dL 6.4-8.2 [facility] Sodium [Moles/Vol] 140 mmol/L 136-145 [facility] Urea nitrogen [Mass/Vol] 18.0 mg/dL 7.0-18.0 [facility] Urea nitrogen/Creatinine [Mass ratio] 13.3 mg/mg [facility] Laboratory - Hematology and Cell countsOrdered By: Safia Enrique on 10-31-2024 ESR (Bld) [Velocity] 75 mm/h High <=20 [facility] Immature granulocytes/100 WBC (Bld) 0.3 % 0.0-0.5 [facility] Leukocytes [#/volume] correc christen for nucleated erythrocytes in Blood by Automated counOrdered By: Safia Enrique on 10-31-2024 WBC corrected for nucl RBC Auto (Bld) [#/Vol] 5.8 10 3/uL 4.0-11.0 [facility] Lymphocytes Auto (Bld) [#/Vo l]Ordered By: Safia Enrique on 10-31-2024 Lymphocytes (Bld) [#/Vol] 1.1 10 3/uL Low 1.2-3.8 [facility] Lymphocytes/100 WBC Auto (Bl d)Ordered By: Safia Enrique on 10-31-2024 Lymphocytes/100 WBC (Bld) 19.1 % Low 20.5-60.0 [facility] MCH Auto (RBC) [Entitic mass ]Ordered By: Safia Enrique on 10-31-2024 MCH (RBC) [Entitic mass] 30.8 pg 25.9-34.0 [facility] MCHC Auto (RBC) [Mass/Vol]Or dered By: Safia Enrique on 10-31-2024 MCHC (RBC) [Mass/Vol] 31.6 g/dL 29.9-35.2 [facility] MCV Auto (RBC) [Entitic vol] Ordered By: Safia Enrique on 10-31-2024 MCV (RBC) [Entitic vol] 97.6 fL High 80.0-94.0 [facility] Monocytes Auto (Bld) [#/Vol] Ordered By: Safia Enrique on 10-31-2024 Monocytes (Bld) [#/Vol] 0.6 10 3/uL 0.3-0.8 [facility] Monocytes/100 WBC Auto (Bld) Ordered By: Safia Enrique on 10-31-2024 Monocytes/100 WBC (Bld) 10.1 % 1.7-12.0 [facility] Neutrophils Auto (Bld) [#/Vo l]Ordered By: Safia Enrique on 10-31-2024 Neutrophils (Bld) [#/Vol] 3.7 10 3/uL 1.4-6.5 [facility] Neutrophils/100 WBC Auto (Bl d)Ordered By: Safai Enrique on 10-31-2024 Neutrophils/100 WBC (Bld) 64.8 % 43.0-75.0 [facility] No Panel InformationOrdered By: Safia Enrique on 10-31-2024 Eosinophils # (Auto) 0.3 10 3/uL 0.0-0.7 [facility] Immature Granulocyte # (Auto) 0.02 10 3/uL 0.00-0.03 [facility] Platelet mean volume Auto (B ld) [Entitic vol]Ordered By: Safia Enrique on 10-31-2024 Platelet mean volume (Bld) [Entitic vol] 9.6 fL 9.5-13.5 [facility] Platelets Auto (Bld) [#/Vol] Ordered By: Safia Enrique on 10-31-2024 Platelets (Bld) [#/Vol] 291 10 3/uL 150-450 [facility] RBC Auto (Bld) [#/Vol]Ordere d By: Safia Enrique on 10-31-2024 RBC (Bld) [#/Vol] 4.12 10 6/uL Low 4.70-6.10 [facility] Serum or plasma albumin/glob ulin mass ratioOrdered By: Safia Enrique on 10-31-2024 Albumin/Globulin [Mass ratio] 0.7 {ratio} [facility] Serum or plasma anion gap de terminationOrdered By: Safia Enrique on 10-31-2024 Anion gap [Moles/Vol] 8.7 mmol/L [facility] MR cervical spine wo conon 0 08-06-2024 MR cervical spine wo con [facility] Main [place] [address] [place] [address] MRI Report Signed Patient: Elena Felix MR#: [id number] 29 : 1960 Acct:[id number] Age/Sex: 63 / M ADM Date: 08/06/24 Loc: MR Room: Type: [facility] Attending Dr: Estella Tadeo [employer] SUPERVISOR Copies to: Estella Tadeo NP Ordering Provider: Estella Tadeo NP Date of Service: 08/06/24 MR/MR cervical spine wo con: M54.2 - Cervicalgia EXAMINATION: MRI OF THE CERVICAL SPINE WITHOUT CONTRAST CLINICAL DATA: Neck pain that radiates into left shoulder, no known injury cervicalgia COMPARISON: X-rays of the cervical spine 06/10/2024 TECHNIQUE: Multiecho imaging was performed in the sagittal and axial plane without contrast administration. FINDINGS: The craniocervical junction is maintained. Cervical vertebral heights and alignment maintained. Mild multilevel intervertebral space narrowing greatest at C3-C4 C4-C5. Multilevel facet arthropathy. There are hemangiomas involving the upper thoracic spine T1 T3 T4. Minimal loss of height at C3 noted appears chronic without abnormal edema. The cervical cord demonstrates normal signal and morphology. No prevertebral soft tissue swelling. C2-C3: Facet arthropathy, mild to moderate. Minor endplate ossific spurring. Otherwise the canal neural foramina patent. C3-C4: Broad-based disc osteophyte complex with bilateral uncovertebral and facet arthropathy. This results in moderate severe right and severe left neural foraminal narrowing. There is moderate central canal stenosis. C4-C5: Broad-based disc osteophyte complex with uncovertebral spurring. Moderate central canal stenosis, prominent right-sided. Moderate severe right greater than left neural foraminal narrowing C5-C6: Minor broad-based bulge, predominantly left-sided. Uncovertebral spurring greatest left. Mild right moderate left neural from narrowing. Minimal central canal stenosis. C6-7: Circumferential disc osteophyte complex and bilateral uncovertebral burning, greatest in the left. There is moderate right-sided and qlpvowdc-zk-arcezm left-sided neural foraminal narrowing. Bifg-nx-jhjihifh central canal stenosis. C7-T1: Moderate facet arthropathy. Mild neural foraminal narrowing. No significant disc disease or central canal stenosis identified. MR/MR cervical spine wo con IMPRESSION: Overall moderate multilevel degenerative changes with left-sided neural foraminal narrowing greatest left C3-C5 and C6-C7. Impression dictated by: Philip Willis M.D.08/06/2024 4:06 PM Dictation Location: [place] [address] Transcribed By: [facility] 08/06/24 1606 Dictated By: Philip Willis MD 08/06/24 1548 Signed By: 08/06/24 1606 Normal [facility] Magnetic resonance imaging r eportOrdered By: Philip Willis on 08-06-2024 Study report [facility] Main [place] [address] [place] [address] MRI Report Signed Patient: Elena Felix MR#: [id number] : 1960 Acct:[id number] Age/Sex: 63 / M ADM Date: 5 Loc: MR Room: Type: [facility] Attending Dr: Estella Tadeo [employer] SUPERVISOR Copies to: Estella Tadeo [employer] AND MOTTLE SUPERVISOR~ Ordering Provider: Estella Tadeo NP Date of Service: 08/06/24 MR/MR cervical spine wo con: M54.2 - Cervicalgia EXAMINATION: MRI OF THE CERVICAL SPINE WITHOUT CONTRAST CLINICAL DATA: Neck pain that radiates into left shoulder, no known injury cervicalgia COMPARISON: X-rays of the cervical spine 06/10/2024 TECHNIQUE: Multiecho imaging was performed in the sagittal and axial plane without contrast administration. FINDINGS: The craniocervical junction is maintained. Cervical vertebral heightsand alignment maintained. Mild multilevel intervertebral space narrowing greatest at C3-C4 C4-C5. Multilevel facet arthropathy. There are hemangiomas involving the upper thoracic spine T1 T3 T4. Minimal loss of height at C3 notedappears chronic without abnormal edema. The cervical cord demonstrates normal signal and morphology. No prevertebral soft tissue swelling. C2-C3: Facet arthropathy, mild to moderate. Minor endplate ossific spurring. Otherwise the canal neural foramina patent. C3-C4: Broad-based disc osteophyte complex with bilateral uncovertebral and facet arthropathy. This results in moderate severe right and severe left neuralforaminal narrowing. There is moderate central canal stenosis. C4-C5: Broad-based disc osteophyte complex with uncovertebral spurring. Moderate central canal stenosis, prominent right-sided. Moderate severe right greater than left neural foraminal narrowing C5-C6: Minor broad-based bulge, predominantly left-sided. Uncovertebral spurring greatest left. Mild right moderate left neural from narrowing. Minimal central canal stenosis. C6-7: Circumferential disc osteophyte complex and bilateral uncovertebral burning, greatest in the left. There is moderate right-sided and mqrbjuzp-ul-tauzqi left-sided neural foraminal narrowing. Wzvt-cx-ojifjkve central canal stenosis. C7-T1: Moderate facet arthropathy. Mild neural foraminal narrowing. No significant disc disease or central canal stenosis identified. MR/MR cervical spine wo con IMPRESSION: Overall moderate multilevel degenerative changes with left-sided neural foraminal narrowing greatest left C3-C5 and C6-C7. Impression dictated by: Philip Willis M.D.08/06/2024 4:06 PM Dictation Location: [place] [address] Transcribed By: [facility] 08/06/24 1606 Dictated By: Philip Willis MD 08/06/24 1548 Signed By: 08/06/24 1606 [facility] Work Phone: Ambulatory Visit Summaryon 0 07-21-2024 Ambulatory Visit Summary Ambulatory Visit Summary ELENA FELIX :1960 Visit Date:07/21/2024 Ambulatory Visit Instructions Your Diagnosis BPH with urinary obstruction Your Care Team Attending Physician - WANDA COON, EUGENIA Ko Primary Care Physician - SILVANA LUNDBERG MD This Is Your Medications List aspirin (Aspir 81) atorvastatin (atorvastatin 40 mg Tab) cyclobenzaprine duloxetine (Cymbalta) folic acid (folic acid 1 mg Tab) gabapentin (gabapentin 300 mg Cap) leflunomide (Arava 20 mg Tab) metoprolol (Metoprolol succinate 25 mg ER Tablet) omeprazole oxaprozin (oxaprozin 600 mg Tab) oxycodone sildenafil (sildenafil 100 mg Tab) spironolactone (spironolactone 25 mg Tab) tamsulosin (tamsulosin 0.4 mg Cap) venlafaxine (venlafaxine 150 mg Cap-ER) Procedures Performed Repair of hip (02/18/2023), Colonoscopy, flexible; with [...] Back (2012), right hand surgery. Discharge Vitals Temperature (Temporal Artery) 37 ???C Heart Rate (Peripheral) 61 Respiratory Rate 16 Blood Pressure 132/77 Height 188 cm Height 74 in Weight 142.6 kg Weight 314.379 lb BMI 40.35 What to do next Scheduled Follow-Up Appointments Sunday2025 10:00 AM EDT With: EUGENIA MUÑOZ PA-C Where: [facility] [address] [place] [address]- You Need to Schedule the Following Appointments Follow Up with EUGENIA MUÑOZ PA-C, URL When: In 1 year Where: [address] [place] [address] Medications What How Much When Instructions Unchanged aspirin (Aspir 81) 81 Milligram By Mouth Every day Unchanged atorvastatin (atorvastatin 40 mg Tab) Unchanged cyclobenzaprine Unchanged duloxetine (Cymbalta) 60 Milligram By Mouth 2 times a day Unchanged folic acid (folic acid 1 mg Tab) 1 Tablets By Mouth Every day Unchanged gabapentin (gabapentin 300 mg Cap) 3 Tablets By Mouth 2 times a day Unchanged leflunomide (Arava 20 mg Tab) 1 Tablets By Mouth Every day Unchanged metoprolol (Metoprolol succinate 25 mg ER Tablet) 25 Milligram By Mouth Every day Unchanged omeprazole 20 Milligram By Mouth Every day Unchanged oxaprozin (oxaprozin 600 mg Tab) Unchanged oxycodone Unchanged sildenafil (sildenafil 100 mg Tab) 1 Tablets By Mouth As Directed 1 hour before sexual activity Unchanged spironolactone (spironolactone 25 mg Tab) Unchanged tamsulosin (tamsulosin 0.4 mg Cap) 1 Capsules By Mouth 2 times a day Unchanged venlafaxine (venlafaxine 150 mg Cap-ER) 1 Capsules By Mouth Every day Allergies lisinopril (Unknown) morphine (Disoriented) Problems Ongoing - Any problem that you are currently receiving treatment for. Ankylosing spondylitis Arthritis BPH with urinary obstruction Chronic prostatitis Clostridium difficile diarrhea Cyst of epididymis Epididymal cyst Erectile dysfunction GERD - Gastro-esophageal reflux disease Heart disease Hyperlipidemia Inclusion cyst Kidney stone Obstructive sleep apnea syndrome Peripheral neuropathy Urinary frequency Historical - Any problem that you are no longer receiving treatment for. Arthritis Tachycardia Patient Survey You may receive a survey via text or e-mail asking about your office visit. Please share your experience with us by completing your survey. We appreciate your feedback and thank you for choosing us for your care. Normal [facility] Office Visiton 07-21-2024 Follow-up visit [id number] Miguel Felix 1960 M Date Provider Department Center 07/21/2024 [id number] OSB[place]NE KISHORE Garcia Family History Problem Relation Age of Onset No Known Problems Mother No Known Problems Father Family Status - Relation Status Age at Mother Father Level of Service:77495 PA OFFICE/OUTPATIENT ESTABLISHED MOD MDM 30 MIN Reason for Visit and Comments: Hypertension [506203] Hyperlipidemia [182] Cardiomyopathy [104] Normal [facility] Urology Office/Clinic Noteon 07-21-2024 Urology Office/Clinic Note Urology Office/Clinic Note Chief Complaint 6 month fwith PSA HPI Staff 6 month f/u with PSA. Dx: BPH with urinary obstruction, inclusion cyst, chronic prostatitis, ED and epididymal cyst PSA done 07/19/24 - 1.08 Tamsulosin BID IPSS score of 4 today Denies any urinary complaints today. Denies visible blood and any kind of pain. Review of Systems PHQ Score Initial Depression Screen Score: 0 SCORE no fever, chills, malaise, myalgia. Physical Exam Vitals & Measurements T: 37 ???C(Temporal Artery) HR: 61(Peripheral) RR: 16 BP: 132/77 HT: 74 in HT: 188 cm WT: 142.6 kg WT: 314.379 lb BMI: 40.35 General: nontoxic, NAD Assessment/Plan UA completed in office today shows no microhematuria or signs of infection. 1. BPH with urinary obstruction (N40.1: Benign prostatic hyperplasia with lower urinary tract symptoms) Pt is taking tamsulosinBID and is highly satisfiedwith overall symptom control. Pt is experiencing noside effects. IPSS 4 QOL 1 We discussed current dose and optional changes: decreasing tamsulosin to QD, adding an additional agent such as finasteride/dutasteride Risks/benefits/side effects of current regimen discussed. Pt prefers to continue current regimen with no changes at this time. Ordered: Urnls Dip Stick Auto w/o Microscopy POC 62101 2. Erectile dysfunction (N52.9: Male erectile dysfunction, unspecified) Pt has been taking Sildenafil 50 mg PRN (1/2tab 100mg). This is somewhat effective and pt is satisfied with results. Pt reports no intolerable side effects. Pt has had no new cardiac events since last f/u. Pt does not take Nitro and knows not to start. Discussed options: increase dose, dc & switch to alternative medication, dc completely. Pt wishes to: continue current dosing with no changes. Pt does not need refills at this time. 3. Inclusion cyst (L72.0: Epidermal cyst) S/p local excision of 1 cm penile inclusion cyst 12/25/23. Path ~epidermal inclusion cyst. Results reviewed with pt. Fully healed. 4. Epididymal cyst (N50.3: Cyst of epididymis) Scrotal US 01/02/2020 shows 8 mm right epididymal cyst. Asymptomatic. [1] 5. Prostate cancer screening (Z12.5: Encounter for screening for malignant neoplasm of prostate) PSA: 05/30/21 - 2.60 08/02/23 - 1.08 [2] 07/19/24 - 1.08 PSA low and stable. Repeat in 1 yr. Follow-up With When Contact Information KRYSTAL MUÑOZ PA-CFER Stefani, URL In 1 year [address] [place] [address] Additional Instructions: Patient Education Benign Prostatic Hyperplasia Problem List/Past Medical History Ongoing Ankylosing spondylitis Arthritis BPH with urinary obstruction Chronic prostatitis Clostridium difficile diarrhea Epididymal cyst Erectile dysfunction GERD - Gastro-esophageal reflux disease Heart disease Hyperlipidemia Inclusion cyst Kidney stone Obstructive sleep apnea syndrome Peripheral neuropathy Prostate cancer screening Historical Arthritis Tachycardia Procedure/Surgical History Repair of [...] mg, Oral, Daily atorvastatin 40 mg Tab cyclobenzaprine Cymbalta, 60 mg, Oral, BID folic acid 1 mg Tab, 1 mg= 1 tab(s), Oral, Daily gabapentin 300 mg Cap, 3 tab(s), Oral, BID Metoprolol succinate 25 mg ER Tablet, 25 mg, Oral, Daily omeprazole, 20 mg, Oral, Daily oxaprozin 600 mg Tab oxycodone sildenafil 100 mg Tab, 100 mg= 1 tab(s), Oral, As Directed, 4 refills spironolactone 25 mg Tab tamsulosin 0.4 mg Cap, 0.4 mg= 1 cap(s), Oral, BID, 3 refills venlafaxine 150 mg Cap-ER, 150 mg= 1 cap(s), Oral, Daily Allergies lisinopril (Unknown) morphine (Disoriented) Social History Alcohol - Denies Alcohol Use, 10/08/2014 Beer, 1-2 times per month, 01/07/2018 Substance Abuse - Denies Substance Abuse, 10/08/2014 Tobacco Former smoker, quit more than 30 days ago Tobacco Use:. Never Smokeless Tobacco Use:. Cigarettes, Yes, 07/21/2024 Family History COPD: Sister. Primary malignant neoplasm of female breast: Mother. Stroke: Mother. Immunizations Vaccine Date Status influenza virus vaccine, inactivated (more content not included)... Normal [facility] Comment on above: Result Comment: Elec tronically Signed By: WANDA COON, EUGENIA Ko\.br\Date and Time Signed: 07/21/24 10:05 EDT No Panel Informationon 07-19 Prostate Specific Antigen Total 1.08 ng/mL <=4.00 [facility] Estimated glomerular filtrat ion rate (GFR) non- Americanon 07-14-2024 GFR/1.73 sq M.predicted among non-blacks MDRD (S/P/Bld) [Vol rate/Area] Estimated glomerular filtration rate (GFR) non- Low >=60 mL/min/1.7 3m 2 [facility] Laboratory - Chemistry and C hemistry - challengeon 07-14-2024 Calcium [Mass/Vol] 9.1 mg/dL 8.5-10.1 [facility] Chloride [Moles/Vol] 106 mmol/L 98-107 [facility] CO2 [Moles/Vol] 32.8 mmol/L High 21.0-32.0 [facility] Creatinine [Mass/Vol] 1.48 mg/dL High 0.70-1.30 [facility] GFR/1.73 sq M.predicted MDRD (S/P/Bld) [Vol rate/Area] 58 mL/min/{1.73_m2} Low >=60 mL/min/1.7 3m 2 [facility] Glucose [Mass/Vol] 90 mg/dL 74-106 [facility] Potassium [Moles/Vol] 4.9 mmol/L 3.5-5.1 [facility] Sodium [Moles/Vol] 144 mmol/L 136-145 [facility] Urea nitrogen [Mass/Vol] 18.0 mg/dL 7.0-18.0 [facility] Urea nitrogen/Creatinine [Mass ratio] 12.2 mg/mg [facility] Serum or plasma anion gap de terminationon 07-14-2024 Anion gap [Moles/Vol] Serum or plasma an ion gap determination [facility] Office Visiton 06-10-2024 Follow-up visit [id number] Miguel Felix 1960 M Date Provider Department Center 06/10/2024 [facility]8NIKKIE TREJO Family History Problem Relation Age of Onset No Known Problems Mother No Known Problems Father Family Status - Relation Status Age at Mother Father Level of Service:24940 PA OFFICE/OUTPATIENT ESTABLISHED LOW MDM 20 MIN Normal [facility] X-ray reportOrdered By: Chas Willis on 06-10-2024 Study report [facility] [place] [address] [place] [address] XRay Report Signed Patient: Elena Felix MR#: [id number] : 1960 Acct:[id number] Age/Sex: 63 / M ADM Date: 5 Loc: XD Room: Type: [facility] Attending Dr: Frederic Zamarripa MD Copies to: Frederic Zamarripa MD~ Ordering Provider: Frederic Zamarripa MD Date of Service: 06/10/24 XR/XR cervical spine w flex/ext: M54.2 - Cervicalgia CERVICAL SPINE AP, lateral, both obliques and flexion extension views.: CLINICAL HISTORY: Neck pain COMPARISON: None FINDINGS: Mild reversal. Only C1-C6 seen laterally.. Moderate multilevel uncovertebral and facet arthropathy causing neural foraminal encroachment. Rrza-wj-ihlreese multilevel disc space narrowing and osteophytosis moderate severity C3-C4. There is mild retrolisthesis C4-C5 3 mm which is unchanged on the flexion extension images. XR/XR cervical spine w flex/ext IMPRESSION: Multilevel degenerative change. No motion on flexion extension images. Impression dictated by: Philip Willis M.D.06/10/2024 3:55 PM Dictation Location: [place] [address] Transcribed By: LITO 06/10/241554 Dictated By: Philip Willis MD 06/10/241551 Signed By: 06/10/241554 [facility] Work Phone: XR cervical spine w flex/ext on 06-10-2024 XR cervical spine w flex/ext [facility] [place] [address] [place] [address] XRay Report Signed Patient: Elena Felix MR#: [id number] : 1960 Acct:[id number] Age/Sex: 63 / M ADM Date: 06/10/24 Loc: XD Room: Type: [facility] Attending Dr: Frederic Zamarripa MD Copies to: Frederic Zamarripa MD Ordering Provider: Frederic Zamarripa MD Date of Service: 06/10/24 XR/XR cervical spine w flex/ext: M54.2 - Cervicalgia CERVICAL SPINE AP, lateral, both obliques and flexion extension views.: CLINICAL HISTORY: Neck pain COMPARISON: None FINDINGS: Mild reversal. Only C1-C6 seen laterally.. Moderate multilevel uncovertebral and facet arthropathy causing neural foraminal encroachment. Fiml-mz-ocavjcba multilevel disc space narrowing and osteophytosis moderate severity C3-C4. There is mild retrolisthesis C4-C5 3 mm which is unchanged on the flexion extension images. XR/XR cervical spine w flex/ext IMPRESSION: Multilevel degenerative change. No motion on flexion extension images. Impression dictated by: Philip Willis M.D.06/10/2024 3:55 PM Dictation Location: [place] [address] Transcribed By: LITO 06/10/24 155 Dictated By: Philip Willis MD 06/10/241551 Signed By: 06/10/241554 Normal [facility] Basophils Auto (Bld) [#/Vol] on 05-28-2024 Basophils (Bld) [#/Vol] Automated basophil count 0.0-0.1 [facility] Basophils/100 WBC Auto (Bld) on 05-28-2024 Basophils/100 WBC (Bld) Automated basophil % 0.2-2.0 [facility] Eosinophils/100 WBC Auto (Bl d)on 05-28-2024 Eosinophils/100 WBC (Bld) Automated eosinophil % 0.9-7.0 [facility] Erythrocyte distribution wid th Auto (RBC) [Ratio]on 05-28-2024 Erythrocyte distribution width (RBC) [Ratio] Erythrocyte distribution width [Ratio] by Automated count 11.0-15.0 [facility] Estimated glomerular filtrat ion rate (GFR) non- Americanon 05-28-2024 GFR/1.73 sq M.predicted among non-blacks MDRD (S/P/Bld) [Vol rate/Area] Estimated glomerular filtration rate (GFR) non- Low >=60 mL/min/1.7 3m 2 [facility] Globulin Calc (S) [Mass/Vol] on 05-28-2024 Globulin (S) [Mass/Vol] Serum globulin measurement by calculation (mass/volume) [facility] Hematocrit Auto (Bld) [Volum e fraction]on 05-28-2024 Hematocrit (Bld) [Volume fraction] Hematocrit [Volume Fraction] of Blood by Automated count Low 42.0-54.0 [facility] Hemoglobin [Mass/volume] in Bloodon 05-28-2024 Hemoglobin (Bld) [Mass/Vol] Hemoglobin [Mass/volume] in Blood Low 14.0-18.0 [facility] Laboratory - Chemistry and C hemistry - challengeon 05-28-2024 Bilirubin Ql (U) SMALL Abnormal NEGATIVE [facility] Glucose (U) [Mass/Vol] Negative NEGATIVE [facility] Ketones Ql (U) 40 mg/dL Abnormal NEGATIVE [facility] pH (U) 5.5 [pH] 5.0-9.0 [facility] Specific gravity (U) [Rel density] 1.025 1.005-1.02 5 [facility] Urobilinogen Qn (U) 0.2 {Denise'U}/dL 0.2-1.0 [facility] Albumin [Mass/Vol] 2.9 g/dL Low 3.4-5.0 [facility] ALP [Catalytic activity/Vol] 80 U/L 46-116 [facility] ALT [Catalytic activity/Vol] 33 U/L 16-63 [facility] AST [Catalytic activity/Vol] 39 U/L High 15-37 [facility] Bilirubin [Mass/Vol] 0.7 mg/dL 0.2-1.0 [facility] Calcium [Mass/Vol] 8.6 mg/dL 8.5-10.1 [facility] Chloride [Moles/Vol] 106 mmol/L 98-107 [facility] CO2 [Moles/Vol] 21.8 mmol/L 21.0-32.0 [facility] Creatinine [Mass/Vol] 1.32 mg/dL High 0.70-1.30 [facility] GFR/1.73 sq M.predicted MDRD (S/P/Bld) [Vol rate/Area] mL/min/{1.73_m2} >=60 mL/min/1.7 3m 2 [facility] Glucose [Mass/Vol] 122 mg/dL High 74-106 [facility] Lactate [Moles/Vol] 1.6 mmol/L 0.4-2.0 [facility] Lipase [Catalytic activity/Vol] 24.0 U/L 16.0-77.0 [facility] Potassium [Moles/Vol] 4.0 mmol/L 3.5-5.1 [facility] Protein [Mass/Vol] 7.0 g/dL 6.4-8.2 [facility] Sodium [Moles/Vol] 141 mmol/L 136-145 [facility] Urea nitrogen [Mass/Vol] 14.0 mg/dL 7.0-18.0 [facility] Urea nitrogen/Creatinine [Mass ratio] 10.6 mg/mg [facility] Laboratory - Hematology and Cell countson 05-28-2024 Immature granulocytes/100 WBC (Bld) 0.2 % 0.0-0.5 [facility] Laboratory - Specimen inform ationon 05-28-2024 Appearance (U) CLEAR CLEAR [facility] Color (U) YELLOW YELLOW [facility] Laboratory - Urinalysison Hyaline casts LM Ql (Urine sed) FEW [facility] Leukocyte esterase Test strip Ql (U) Negative NEGATIVE [facility] Mucus Ql (Urine sed) MODERATE Abnormal NONE SEEN [facility] Nitrite Ql (U) Negative NEGATIVE [facility] Protein Ql (U) 30 mg/dL Abnormal NEG/TRACE [facility] Leukocytes [#/volume] correc christen for nucleated erythrocytes in Blood by Automated counon 05-28-2024 WBC corrected for nucl RBC Auto (Bld) [#/Vol] Leukocytes [#/volume] corrected for nucleated erythrocytes in Blood by Automated coun 4.0-11.0 [facility] Lymphocytes Auto (Bld) [#/Vo l]on 05-28-2024 Lymphocytes (Bld) [#/Vol] Lymphocytes [#/volume] in Blood by Automated count Low 1.2-3.8 [facility] Lymphocytes/100 WBC Auto (Bl d)on 05-28-2024 Lymphocytes/100 WBC (Bld) Lymphocytes/100 leukocytes in Blood by Automated count Low 20.5-60.0 [facility] MCH Auto (RBC) [Entitic mass ]on 05-28-2024 MCH (RBC) [Entitic mass] MCH [Entitic mass] by Automated count 25.9-34.0 [facility] MCHC Auto (RBC) [Mass/Vol]on 05-28-2024 MCHC (RBC) [Mass/Vol] MCHC [Mass/volume] by Automated count 29.9-35.2 [facility] MCV Auto (RBC) [Entitic vol] on 05-28-2024 MCV (RBC) [Entitic vol] MCV [Entitic volume] by Automated count High 80.0-94.0 [facility] Monocytes Auto (Bld) [#/Vol] on 05-28-2024 Monocytes (Bld) [#/Vol] Automated blood monocyte count 0.3-0.8 [facility] Monocytes/100 WBC Auto (Bld) on 05-28-2024 Monocytes/100 WBC (Bld) Automated monocyte % 1.7-12.0 [facility] Neutrophils Auto (Bld) [#/Vo l]on 05-28-2024 Neutrophils (Bld) [#/Vol] Neutrophils [#/volume] in Blood by Automated count 1.4-6.5 [facility] Neutrophils/100 WBC Auto (Bl d)on 05-28-2024 Neutrophils/100 WBC (Bld) Automated neutrophil % 43.0-75.0 [facility] No Panel Informationon 05-28 Urine Bacteria TRACE #/HPF Abnormal NONE SEEN [facility] Urine Culture Reflexed NO [facility] Urine Occult Blood Negative NEGATIVE [facility] Urine Other Casts SEEN #/LPF Abnormal NONE SEEN [facility] Urine Other Crystals None Seen #/HPF None Seen [facility] Urine RBC NONE SEEN #/HPF 0-2 [facility] Urine Squamous Epithelial Cells RARE #/LPF NONE/RARE [facility] Urine WBC NONE SEEN #/HPF NONE SEEN [facility] Eosinophils # (Auto) 0.1 10 3/uL 0.0-0.7 [facility] Immature Granulocyte # (Auto) 0.01 10 3/uL 0.00-0.03 [facility] Platelet mean volume Auto (B ld) [Entitic vol]on 05-28-2024 Platelet mean volume (Bld) [Entitic vol] Platelet mean volume [Entitic volume] in Blood by Automated count 9.5-13.5 [facility] Platelets Auto (Bld) [#/Vol] on 05-28-2024 Platelets (Bld) [#/Vol] Platelets [#/volume] in Blood by Automated count 150-450 [facility] RBC Auto (Bld) [#/Vol]on RBC (Bld) [#/Vol] Erythrocytes [#/volu me] in Blood by Automated count Low 4.70-6.10 [facility] Serum or plasma albumin/glob ulin mass ratioon 05-28-2024 Albumin/Globulin [Mass ratio] Serum or plasma albumin/globulin mass ratio [facility] Serum or plasma anion gap de terminationon 05-28-2024 Anion gap [Moles/Vol] Serum or plasma an ion gap determination [facility] Basophils Auto (Bld) [#/Vol] on 04-07-2024 Basophils (Bld) [#/Vol] Automated basophil count 0.0-0.1 [facility] Basophils/100 WBC Auto (Bld) on 04-07-2024 Basophils/100 WBC (Bld) Automated basophil % 0.2-2.0 [facility] CNPNon 04-07-2024 CNPN Telephone (ENDOMN) ELENA FELIX ([id number]) 1960 M Date Time Provider Department 04/07/24 ALYSHA EMANUEL During your visit today, we recorded the following information about you: 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 They are recommending alternate medications: Forteo, Tymols, Alendronate Sodium. [employer] can be reached at [phone]. 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 Thank you so much Alysha Emanuel MD Dept of Endocrinology Yaa Koo RN 04/08/2024 12:57 PM Addendum Called and spoke with patient. 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 Since his insurance recommended Forteo and not generic, hopefully there should not be an issue, however, he will reach out via my chart with an update. Yaa SRINIVASAN, RN [facility] Allergies As of Date: 04/07/2024 Noted Allergy [...] Take 20 mcg subcutaneously daily - Insulin [place], Disposable, (BD ULTRAFINE III MINI PEN) 31 [...] Refills Start (more content not included)... Normal [facility] Eosinophils/100 WBC Auto (Bl d)on 04-07-2024 Eosinophils/100 WBC (Bld) Automated eosinophil % 0.9-7.0 [facility] Erythrocyte distribution wid th Auto (RBC) [Ratio]on 04-07-2024 Erythrocyte distribution width (RBC) [Ratio] Erythrocyte distribution width [Ratio] by Automated count 11.0-15.0 [facility] Estimated glomerular filtrat ion rate (GFR) non- Americanon 04-07-2024 GFR/1.73 sq M.predicted among non-blacks MDRD (S/P/Bld) [Vol rate/Area] Estimated glomerular filtration rate (GFR) non- Low >=60 mL/min/1.7 3m 2 [facility] Globulin Calc (S) [Mass/Vol] on 04-07-2024 Globulin (S) [Mass/Vol] Serum globulin measurement by calculation (mass/volume) [facility] Hematocrit Auto (Bld) [Volum e fraction]on 04-07-2024 Hematocrit (Bld) [Volume fraction] Hematocrit [Volume Fraction] of Blood by Automated count Low 42.0-54.0 [facility] Hemoglobin [Mass/volume] in Bloodon 04-07-2024 Hemoglobin (Bld) [Mass/Vol] Hemoglobin [Mass/volume] in Blood Low 14.0-18.0 [facility] Laboratory - Chemistry and C hemistry - challengeon 04-07-2024 Albumin [Mass/Vol] 2.7 g/dL Low 3.4-5.0 [facility] ALP [Catalytic activity/Vol] 90 U/L 46-116 [facility] ALT [Catalytic activity/Vol] 31 U/L 16-63 [facility] AST [Catalytic activity/Vol] 17 U/L 15-37 [facility] Bilirubin [Mass/Vol] 0.4 mg/dL 0.2-1.0 [facility] Calcium [Mass/Vol] 9.0 mg/dL 8.5-10.1 [facility] Chloride [Moles/Vol] 108 mmol/L High 98-107 [facility] CO2 [Moles/Vol] 29.2 mmol/L 21.0-32.0 [facility] Creatinine [Mass/Vol] 1.27 mg/dL 0.70-1.30 [facility] GFR/1.73 sq M.predicted MDRD (S/P/Bld) [Vol rate/Area] mL/min/{1.73_m2} >=60 mL/min/1.7 3m 2 [facility] Glucose [Mass/Vol] 105 mg/dL 74-106 [facility] Potassium [Moles/Vol] 4.7 mmol/L 3.5-5.1 [facility] Protein [Mass/Vol] 6.7 g/dL 6.4-8.2 [facility] Sodium [Moles/Vol] 144 mmol/L 136-145 [facility] Urea nitrogen [Mass/Vol] 22.0 mg/dL High 7.0-18.0 [facility] Urea nitrogen/Creatinine [Mass ratio] 17.3 mg/mg [facility] Laboratory - Hematology and Cell countson 04-07-2024 ESR (Bld) [Velocity] 53 mm/h High <=20 [facility] Immature granulocytes/100 WBC (Bld) 0.6 % High 0.0-0.5 [facility] Leukocytes [#/volume] correc christen for nucleated erythrocytes in Blood by Automated counon 04-07-2024 WBC corrected for nucl RBC Auto (Bld) [#/Vol] Leukocytes [#/volume] corrected for nucleated erythrocytes in Blood by Automated coun 4.0-11.0 [facility] Lymphocytes Auto (Bld) [#/Vo l]on 04-07-2024 Lymphocytes (Bld) [#/Vol] Lymphocytes [#/volume] in Blood by Automated count Low 1.2-3.8 [facility] Lymphocytes/100 WBC Auto (Bl d)on 04-07-2024 Lymphocytes/100 WBC (Bld) Lymphocytes/100 leukocytes in Blood by Automated count Low 20.5-60.0 [facility] MCH Auto (RBC) [Entitic mass ]on 04-07-2024 MCH (RBC) [Entitic mass] MCH [Entitic mass] by Automated count 25.9-34.0 [facility] MCHC Auto (RBC) [Mass/Vol]on 04-07-2024 MCHC (RBC) [Mass/Vol] MCHC [Mass/volume] by Automated count 29.9-35.2 [facility] MCV Auto (RBC) [Entitic vol] on 04-07-2024 MCV (RBC) [Entitic vol] MCV [Entitic volume] by Automated count High 80.0-94.0 [facility] Monocytes Auto (Bld) [#/Vol] on 04-07-2024 Monocytes (Bld) [#/Vol] Automated blood monocyte count 0.3-0.8 [facility] Monocytes/100 WBC Auto (Bld) on 04-07-2024 Monocytes/100 WBC (Bld) Automated monocyte % 1.7-12.0 [facility] Neutrophils Auto (Bld) [#/Vo l]on 04-07-2024 Neutrophils (Bld) [#/Vol] Neutrophils [#/volume] in Blood by Automated count 1.4-6.5 [facility] Neutrophils/100 WBC Auto (Bl d)on 04-07-2024 Neutrophils/100 WBC (Bld) Automated neutrophil % 43.0-75.0 [facility] No Panel Informationon 04-07 Eosinophils # (Auto) 0.4 10 3/uL 0.0-0.7 [facility] Immature Granulocyte # (Auto) 0.04 10 3/uL High 0.00-0.03 [facility] Platelet mean volume Auto (B ld) [Entitic vol]on 04-07-2024 Platelet mean volume (Bld) [Entitic vol] Platelet mean volume [Entitic volume] in Blood by Automated count Low 9.5-13.5 [facility] Platelets Auto (Bld) [#/Vol] on 04-07-2024 Platelets (Bld) [#/Vol] Platelets [#/volume] in Blood by Automated count 150-450 [facility] RBC Auto (Bld) [#/Vol]on RBC (Bld) [#/Vol] Erythrocytes [#/volu me] in Blood by Automated count Low 4.70-6.10 [facility] Serum or plasma albumin/glob ulin mass ratioon 04-07-2024 Albumin/Globulin [Mass ratio] Serum or plasma albumin/globulin mass ratio [facility] Serum or plasma anion gap de terminationon 04-07-2024 Anion gap [Moles/Vol] Serum or plasma an ion gap determination [facility] 25(OH)D3 SerPl-mCncon 2023 25-hydroxyvitamin D3 [Mass/Vol] 75.7 ng/mL Normal 31.0-80.0 [facility] Comment on above: Order Comment: Speci men Type: BLOOD SPECIMEN Ordering Facility: [facility] Address: [address] [place] [address] Performed By: #### 1 989-3 #### [facility] CLIA [id number] [address] [place] [address] [place] BIOAVAILABLE TESTOSTERONE, A DULT MALEon 03-17-2024 Albumin [Mass/Vol] 3.9 g/dL Normal 3.9-4.9 [facility] Comment on above: Order Comment: Speci men Type: BLOOD SPECIMEN Ordering Facility: [facility] Address: [address] [place] [address] Performed By: #### 2 731-8, SQBTESTM #### [facility] CLIA [id number] [address] [place] [address] [place] Sex hormone binding globulin [Moles/Vol] 104 nmol/L High 14-82 [facility] Comment on above: Order Comment: Speci men Type: BLOOD SPECIMEN Ordering Facility: [facility] Address: [address] [place] [address] Performed By: #### 2 731-8, SQBTESTM #### [facility] CLIA [id number] [address] [place] [address] [place] Testosterone [Mass/Vol] 764 ng/dL Normal 193-824 [facility] Comment on above: Order Comment: Speci men Type: BLOOD SPECIMEN Ordering Facility: [facility] Address: [address] [place] [address] Result Comment: A te stosterone level in the 193-320 ng/dL range with associated clinical symptoms is considered low and may indicate hypogonadism (from [facility] 2010 363:123-135). Results >320 ng/dL are considered normal. Performed By: #### 2 731-8, SQBTESTM #### [facility] CLIA [id number] [address] [place] [address] [place] TSTBIO 173.6 ng/dL Normal 105.0-324. 0 [facility] Comment on above: Order Comment: Speci men Type: BLOOD SPECIMEN Ordering Facility: [facility] Address: [address] [place] [address] Performed By: #### 2 731-8, SQBTESTM #### [facility] CLIA [id number] [address] [place] [address] [place] TSTFRC 70.7 pg/mL Normal 38.0-120.0 [facility] Comment on above: Order Comment: Speci men Type: BLOOD SPECIMEN Ordering Facility: [facility] Address: [address] [place] [address] Performed By: #### 2 731-8, SQBTESTM #### [facility] CLIA [id number] [address] [place] [address] [place] TSTFRP 0.9 % Low 1.1-2.6 [facility] Comment on above: Order Comment: Speci men Type: BLOOD SPECIMEN Ordering Facility: [facility] Address: [address] [place] [address] Performed By: #### 2 731-8, SQBTESTM #### [facility] CLIA [id number] [address] [place] [id number] [place] Bioavailable testosterone pe rcentageon 03-17-2024 Testosterone.free+weak ly bound/Testosterone.tot al [Mass fraction] Bioavailable testosterone percentage Low 1.1-2.6 [facility] Free and bioavailable testos terone measurementon 03-17-2024 Testosterone.free+weak ly bound [Mass/Vol] Free and bioavailable testosterone measurement 38.0-120.0 [facility] Laboratory - Chemistry and C hemistry - challengeon 03-17-2024 Albumin [Mass/Vol] 3.9 g/dL 3.9-4.9 [facility] Calcium [Mass/Vol] 9.6 mg/dL 8.5-10.2 [facility] Chloride [Moles/Vol] 104 mmol/L 98-107 [facility] CO2 [Moles/Vol] 27 mmol/L 22-30 [facility] Creatinine [Mass/Vol] 1.35 mg/dL High 0.73-1.22 [facility] Glucose [Mass/Vol] 147 mg/dL High 74-99 [facility] Comment on above: The [place] Diabete s Association (ADA) provides guidance for [...] Standards of Medical Care in Diabetes 2016, [employer] Diabetes Association. Diabetes Care. 2016.39(Suppl 1). Magnesium [Mass/Vol] 1.8 mg/dL 1.7-2.3 [facility] Potassium [Moles/Vol] 4.6 mmol/L 3.7-5.1 [facility] Sodium [Moles/Vol] 141 mmol/L 136-144 [facility] Testosterone [Mass/Vol] 173.6 ng/dL 105.0-324. 0 [facility] Urea nitrogen [Mass/Vol] 20 mg/dL 9-24 [facility] Magnesium SerPl-ncon 03-17 Magnesium [Mass/Vol] 1.8 mg/dL Normal 1.7-2.3 [facility] Comment on above: Order Comment: Speci men Type: BLOOD SPECIMEN Ordering Facility: [facility] Address: [address] [place] [address] Performed By: #### 2 4362-6, 67409-5 #### [facility] CLIA [id number] [address] [place] [address] [id number] [address] [place] No Panel Informationon 03-17 Estimated GFR (CKD-EPI) 59 mL/min/1.73m??? Low >=60 [facility] Comment on above: Estimated Glomerular Filtration [...] GFR. Parathyroid Hormone (Intact) 71 pg/mL High -65 [facility] Phosphorus Level 2.5 mg/dL Low 2.7-4.8 [facility] Sex Hormone Binding Globulin 104 nmol/L High 14-82 [facility] Testosterone Level 764 ng/dL 193-824 [facility] Comment on above: A testosterone level in the 193-320 ng/dL range with associated clinical symptoms is considered low and may indicate hypogonadism (from NEJM 2010 363:123-135). Results >320 ng/dL are considered normal. [facility] Parathyrin.intact [Mass/Vol] 71 pg/mL High 15-65 [facility] Comment on above: Order Comment: Speci men Type: BLOOD SPECIMEN Ordering Facility: [facility] Address: [address] [place] [address] Performed By: #### 2 731-8, SQBTESTM #### [facility] CLIA [id number] [address] [id number] [place] Renal function 2000 panelon 03-17-2024 Albumin [Mass/Vol] 3.8 g/dL Low 3.9-4.9 [facility] Comment on above: Order Comment: Speci men Type: BLOOD SPECIMEN Ordering Facility: [facility] Address: [address] [place] [address] Performed By: #### 2 4362-6, #### [facility] CLIA [id number] [address] [place] [address] [place] Anion gap [Moles/Vol] 10 mmol/L Normal 8-15 [facility] Comment on above: Order Comment: Speci men Type: BLOOD SPECIMEN Ordering Facility: [facility] Address: [address] [place] [address] Performed By: #### 2 4362-6, #### [facility] CLIA [id number] [address] [place] [address] [place] Calcium [Mass/Vol] 9.6 mg/dL Normal 8.5-10.2 [facility] Comment on above: Order Comment: Speci men Type: BLOOD SPECIMEN Ordering Facility: [facility] Address: [address] [place] [address] Performed By: #### 2 4362-6, #### [facility] CLIA [id number] [address] [id number] [place] Chloride [Moles/Vol] 104 mmol/L Normal 98-107 [facility] Comment on above: Order Comment: Speci men Type: BLOOD SPECIMEN Ordering Facility: [facility] Address: [address] [place] [address] Performed By: #### 2 4362-6, #### [facility] CLIA [id number] [address] [place] [address] [place] CO2 [Moles/Vol] 27 mmol/L Normal 22-30 [facility] Comment on above: Order Comment: Jimena wallace Type: BLOOD SPECIMEN Ordering Facility: [facility] Address: [address] [place] [address] Performed By: #### 2 4362-6, #### [facility] CLIA [id number] [address] [place] [address] [place] Creatinine [Mass/Vol] 1.35 mg/dL High 0.73-1.22 [facility] Comment on above: Order Comment: Jimena men Type: BLOOD SPECIMEN Ordering Facility: [facility] Address: [address] [place] [address] Performed By: #### 2 4362-6, #### [facility] CLIA [id number] [address] [place] [address] [place] Creatinine and Glomerular filtration rate.predicted panel (S/P/Bld) 59 mL/min/1.73m??? Low >=60 [facility] Comment on above: Order Comment: Jimena wallace Type: BLOOD SPECIMEN Ordering Facility: [facility] Address: [address] [place] [address] Result Comment: Aneta mated Glomerular Filtration Rate [...] reflect actual GFR. Performed By: #### 2 4362-6, #### [facility] CLIA [id number] [address] [place] [address] [place] Glucose [Mass/Vol] 147 mg/dL High 74-99 [facility] Comment on above: Order Comment: Jimena wallace Type: BLOOD SPECIMEN Ordering Facility: [facility] Address: [address] [place] [address] Result Comment: The [place] Diabetes Association (ADA) provides guidance for cutoff [...] Standards of Medical Care in Diabetes 2016, [place] Diabetes Association. Diabetes Care. 2016.39(Suppl 1). Performed By: #### 2 4362-6, #### [facility] CLIA [id number] [address] [place] [address] [place] Phosphate [Mass/Vol] 2.5 mg/dL Low 2.7-4.8 [facility] Comment on above: Order Comment: Speci men Type: BLOOD SPECIMEN Ordering Facility: [facility] Address: [address] [place] [address] Performed By: #### 2 4362-6, #### [facility] CLIA [id number] [address] [place] [address] [place] Potassium [Moles/Vol] 4.6 mmol/L Normal 3.7-5.1 [facility] Comment on above: Order Comment: Speci men Type: BLOOD SPECIMEN Ordering Facility: [facility] Address: [address] [place] [address] Performed By: #### 2 4362-6, #### [facility] CLIA [id number] [address] [place] [address] [place] Sodium [Moles/Vol] 141 mmol/L Normal 136-144 [facility] Comment on above: Order Comment: Speci men Type: BLOOD SPECIMEN Ordering Facility: [facility] Address: [address] [place] [address] Performed By: #### 2 4362-6, #### [facility] CLIA [id number] [address] [place] [address] [place] Urea nitrogen [Mass/Vol] 20 mg/dL Normal 9-24 [facility] Comment on above: Order Comment: Speci men Type: BLOOD SPECIMEN Ordering Facility: [facility] Address: [address] [place] [address] Performed By: #### 2 4362-6, #### [facility] CLIA [id number] [address] [place] [address] [place] Serum or plasma anion gap de terminationon 03-17-2024 Anion gap [Moles/Vol] Serum or plasma an ion gap determination - [facility] Serum or plasma calcidiol me asurement (mass/volume)on 03-17-2024 25-hydroxyvitamin D3 [Mass/Vol] Serum or plasma calcidiol measurement (mass/volume) 31.0-80.0 [facility] CALCIUM, 24 HR URINEon 02-11 Calcium (24H U) [Mass/Time] 39.1 mg/24 hr Low 100.0-300. 0 [facility] Comment on above: Order Comment: Speci men Type: URINE SPECIMEN Ordering Facility: [facility] Address: [address] [place] [address] Performed By: #### U CRD #### [facility] CLIA [id number] [address] [place] [address] [place] [facility] CLIA [id number] [address] [place] [address] #### UCALCD, 2956-1 #### [facility] CLIA [id number] [address] [place] [address] [place] CREATININE, 24 HOUR URINEon 02-12-2024 Creatinine (24H U) [Mass/Time] 1.506 g/24 hr Normal 1.000-2.00 0 [facility] Comment on above: Order Comment: Speci men Type: URINE SPECIMEN Ordering Facility: [facility] Address: [address] [place] [address] Performed By: #### 3 087-4 #### [facility] CLIA [id number] [address] [place] [address] [place] PERIOD (HRS) 24 hr Normal [facility] Comment on above: Order Comment: Speci men Type: URINE SPECIMEN Ordering Facility: [facility] Address: [address] [place] [address] Performed By: #### 3 087-4 #### [facility] CLIA [id number] [address] [place] [address] [place] Specimen volume (24H U) 1.7 L Normal [facility] Comment on above: Order Comment: Speci men Type: URINE SPECIMEN Ordering Facility: [facility] Address: [address] [place] [address] Performed By: #### 3 087-4 #### [facility] CLIA [id number] [address] [place] [address] [place] Citrate 24h Ur-mRateon 02-11 Citrate (24H U) [Mass/Time] 418 mg/24hrs Normal 120-930 [facility] Comment on above: Order Comment: Speci men Type: URINE SPECIMEN Ordering Facility: [facility] Address: [address] [place] [address] Result Comment: This test was developed, and its performance characteristics determined by the [facility] Department of Pathology and Laboratory Medicine. It has not been cleared or approved by the FDA. The [facility] Department of Pathology and Laboratory Medicine is regulated under CLIA as qualified to perform high-complexity testing. This test is used for clinical purposes. It should not be regarded as investigational or for research. Performed By: #### 6 687-8 #### [facility] CLIA [id number] [address] [place] [address] [place] Oxalate 24h Ur-mRateon 02-11 Oxalate (24H U) [Mass/Time] 39 mg/24hrs Normal 7-44 [facility] Comment on above: Order Comment: Speci men Type: URINE SPECIMEN Ordering Facility: [facility] Address: [address] [place] [address] Result Comment: This test was developed, and its performance characteristics determined by the [facility] Department of Pathology and Laboratory Medicine. It has not been cleared or approved by the FDA. The [facility] Department of Pathology and Laboratory Medicine is regulated under CLIA as qualified to perform high-complexity testing. This test is used for clinical purposes. It should not be regarded as investigational or for research. Performed By: #### 2 701-1 #### [facility] CLIA [id number] [address] [place] [address] [place] Sodium 24h Ur-sRateon 2023 Sodium (24H U) [Moles/Time] 223 mmol/24 hr High 40-220 [facility] Comment on above: Order Comment: Speci men Type: URINE SPECIMEN Ordering Facility: [facility] Address: [address] [place] [address] Performed By: #### 3 087-4 #### [facility] CLIA [id number] [address] [place] [address] [place] Urate 24h Ur-mRateon 024 Urate (24H U) [Mass/Time] 642.6 mg/24hr Normal 250.0-750. 0 [facility] Comment on above: Order Comment: Speci men Type: URINE SPECIMEN Ordering Facility: [facility] Address: [address] [place] [address] Performed By: #### 3 087-4 #### [facility] CLIA [id number] [address] [place] [address] [place] CNOVon 02-08-2024 CNOV Office Visit (ENCAMN ) ELENA FELIX ([id number]) 1960 M Date Time Provider Department 02/08/24 10:00 AM ALYSHA EMANUEL During your visit today, we recorded the following information about you: Pulse Blood pressure Weight Height 73/minute 124/80 137.5 kg 1.85 m Alysha Emanule MD 02/08/2024 10:38 AM Addendum It?s very [...] [place] the [place] [address] [facility] [address] for evaluation, management, and treatment of the following issues: bone health My final recommendations will be communicated back to the requesting physician by way of shared medical record or letter. Coming from [place], [place] Mr. Felix is here to discuss [...] MEDICAL HISTORY Diagnosis Date Ankylosing spondylitis ([facility]) Dr Hodges; age 19 yrs Arthritis Back pain four back surgeries Cardiomyopathy ([facility]) Nonischemic Congestive Cerebrovascular small vessel disease 08/24/2016 On ASA DVT (deep venous thrombosis) ([facility]) Esophageal reflux Former smoker Kidney stones Major depressive disorder with single episode, in remission ([facility]) 08/24/2016 Morbid obesity with BMI of 40.0-44.9, adult ([facility]) Neuropathy Obstructive sleep apnea syndrome, severe On auto-CPAP - sleep study done on 07/10/16 Pneumonia POTS (postural orthostatic tachycardia syndrome) PAS (more content not included)... Normal [facility] Urology Office/Clinic Noteon 01-04-2024 Urology Office/Clinic [...] Contact Information ARABELLA MUNIZ, Jerrod Moya, URL [facility] [place] [address]- Additional Instructions: 06/2024 with PSA Patient Education [...] using fluoros (more content not included)... Normal [facility] Comment on above: Result Comment: Elec tronically Signed By: Jerrod BELL MD\.br\Date and Time Signed: 01/04/24 11:28 EDT\.br\Electronically Co-Signed By: Hyalee Gutierres.br\Date and Time Co-Signed: 01/04/24 11:26 EDT Surgical Pathology Reporton 12-27-2023 Surgical Pathology Report [address] [place] [address]- Surgical Pathology Report Collected Date/Time: 12/25/2023 09:49 EDT Pathologist: Shady Good MD Received Date/Time: 12/25/2023 14:49 EDT Jerrod BELL MD, MD, Patrick R 07 Surgical Pathology Report - 12/27/2023 14:38 EDT [...] is entirely submitted in one cassette. (DC) DC:[facility] Microscopic Description Microscopic examination performed unless gross only specified. Normal [facility] Comment on above: Performed By: #### 4 [id number] #### [facility] [address] [place] [address] Main OR Intraoperative Recor don 12-25-2023 Main OR Intraoperative Record Main OR Intraoperative Record IntraOp Document Type FTURO Summary Primary Physician: Jerrod BELL MD Finalized Date/Time: 12/25/23 10:00:53 Pt. Name: ELENA FELIX./Sex: 1960 Male Med Rec #: [id number] Physician: Jerrod BELL MD Financial #: [id number] Pt. Type: O Room/Bed: / Admit/Disch: 12/25/23 [...] Mary Garcia Role Performed Surgeon - Primary Assistant Property Manager - Primary Scrub - Primary Time In 12/25/23 09:37:00 12/25/23 09:37:00 12/25/23 09:37:00 Time Out 12/25/23 10:02:00 12/25/23 10:02:00 12/25/23 10:02:00 Procedure PENILE CONDYLOMA PENILE CONDYLOMA PENILE CONDYLOMA EXCISION(.) EXCISION(.) EXCISION(.) Comments Last Modified By: Aleksandra BRAGG, Agata Lake RN, Agata Lake RN, Agata Rodrígeuz 12/25/23 Erica Rodríguez 12/25/23 Erica Rodríguez 12/25/23 09:56:39 09:56:39 09:56:39 Entry 4 Case Attendee MOLLY DODGE MD Role Performed Staff - Other Time In 12/25/23 09:37:00 Time Out 12/25/23 10:02:00 Procedure PENILE CONDYLOMA EXCISION(.) Comments OBSERVING Last Modified By: Aleksandra BRAGG, Agata Rodríguez 12/25/23 09:58:44 Surgical Procedures FTURO Entry 1 Procedure Description Procedure PENILE CONDYLOMA Modifiers . EXCISION Surgeon Description EXCISION OF PENILE FORESKIN CYST Primary Procedure Yes Primary Surgeon Jerrod BELL MD Start 12/25/23 09:41:00 Stop 12/25/23 09:56:00 Anesthesia Type Local Surgical Service Urology Wound Class 2 - Clean-Contaminated Last Modified By: Aleksandra BRAGG, Agata Rodríguez 12/25/23 09:56:38 General Case Data FTURO Pre-Care [...] Position Verified Availability Equipment, Medication Time Out ARABELLA MUNIZ, Jerrod Moya, Verified (If Participants Agata Lake RN Applicable) Tim Sams Laura C, NKANSAH-AMANKRA MD, [...] By: Agata Lake RN 12/25/23 10:00 Normal [facility] Main OR Preoperative Recordo n 12-25-2023 Main OR Preoperative Record Main OR Preoperative Record Holding Area Document Type FTURO Summary Primary Physician: Jerrod BELL MD Finalized Date/Time: 12/25/23 09:38:14 Pt. Name: ISIDROELENA/Sex: 1960 Male Med Rec #: [id number] Physician: Jerrod BELL MD Financial #: [id number] Pt. Type: O Room/Bed: / Admit/Disch: 12/25/23 [...] Complaints of Pain: No Skin Integrity Intact, Mango, Warm, & Dry Vitals - EU Blood Pressure 140/80 Pulse 82 bpm Respirations 18 br/min SPO2 99 % Additional None RN Reviewed Yes Specimens Collected Last Modified By: Agata Lake RN 12/25/23 09:38:10 Finalized By: Agata Lake RN Document Signatures Signed By: Rosanna Hernandez LPN 12/25/23 09:05 Agata Lake RN 12/25/23 09:38 Normal [facility] Operative Reporton Operative Report Operative Report [...] a week to remove the sutures. Normal [facility] Comment on above: Result Comment: Elec tronically Signed By: Jerrod BELL MD\.br\Date and Time Signed: 12/25/23 10:05 EDT CNOVon 11-29-2023 CNOV Office Visit (ORFWHP ) ELENA FELIX Shola ([id number]) 1960 M Date Time Provider Department 11/29/23 [...] [S72.002G] Order(s):XR HIP GENERAL 3V PELV/AP/LAT LEFT [[id number]] Order #: [id number] FUTURE CONSULT TO PHYSICAL THERAPY [2301] Order #: [id number]: [id number] FUTURE Prescriptions as of 11/29/2023 - [...] colitis [A (more content not included)... Normal [facility] XR HIP 3V PELV+ AP/LAT LTon 11-29-2023 [...] the left proximal femur with intact hardware. Grinder Hardboard: REX Transcribe Date/Time: Dec 03 2023 3:16P Dictated by : NIK STANFORD MD This examination was interpreted and the report reviewed and electronically signed by: NIK STANFORD MD on Dec 03 2023 3:19PM EST [id number] [facility] 09-28-2023 CNPN Telephone (ORFWHP) ELENA FELIX ([id number]) 1960 M Date Time Provider Department 09/28/23 MISTY WALLACE ORFWHP During your visit today, we recorded the following information about you: Lana Londono-Barbi Ko RN 09/28/2023 12:00 PM Signed ----- [...] Order(s):CONSULT TO HIP FRACTURE LIAISON SERVICE (FRAGILITY) [[id number]] Order #: [id number]: 1 FUTURE Prescriptions as of 09/28/2023 - [...] Status:Closed by ANABELLE LONDONO on 09/28/23 Normal [facility] 25(OH)D3 [facility] 25-hydroxyvitamin D3 [Mass/Vol] 19.7 ng/mL Low 31.0-80.0 [facility] Comment on above: Order Comment: Speci men Type: BLOOD SPECIMEN Ordering Facility: [facility] Address: [address] [place] [address] Result Comment: Clas sification of 25 [place] Vitamin D status: Deficiency/Insufficiency: < or = 30 ng/ml. Sufficiency/Optimal Levels: 31-80 ng/mL Toxicity: > 100 ng/mL. Test performed by chemiluminescent immunoassay. Performed By: #### 1 989-3 #### [facility] CLIA [id number] [address] [place], [place] [address] [address] [place] 25-hydroxyvitamin D3 [Mass/V ol]on 09-27-2023 Interpretation and review of laboratory results Abnormal [facility] The reference range interval was based on an analysis of samples from healthy adults and may not pertain to children from 0-18 years old. [facility] C-REACTIVE PROTEINon 024 CRP [Mass/Vol] 0.4 mg/dL NINF - 0.9 mg/dL [facility] CBC panel Auto (Bld)on 09-26 Erythrocyte distribution width (RBC) [Ratio] 13.9 % 11.5 - 15.0 % [facility] Hematocrit (Bld) [Volume fraction] 44.7 % 39.0 - 51.0 % [facility] Hemoglobin (Bld) [Mass/Vol] 13.9 g/dL 13.0 - 17.0 g/dL [facility] Interpretation and review of laboratory results Normal [facility] MCH (RBC) [Entitic mass] 29.4 pg 26.0 - 34.0 pg [facility] MCHC (RBC) [Mass/Vol] 31.1 g/dL 30.5 - 36.0 g/dL [facility] MCV (RBC) [Entitic vol] 94.7 fL 80.0 - 100.0 fL [facility] Nucleated RBC (Bld) [#/Vol] NINF [facility] Platelet mean volume (Bld) [Entitic vol] 9.8 fL 9.0 - 12.7 fL [facility] Platelets (Bld) [#/Vol] 196 10*3/uL [facility] RBC (Bld) [#/Vol] 4.72 10*6/uL 4.20 - 6.00 m/uL [facility] WBC (Bld) [#/Vol] 5.35 10*3/uL [facility] Erythrocyte distribution width (RBC) [Ratio] 13.9 % Normal 11.5-15.0 [facility] Comment on above: Order Comment: Speci men Type: BLOOD SPECIMEN Ordering Facility: [facility] Address: [address] [place] [address] Performed By: #### 5 8410-2 #### [facility] CLIA [id number] [address] [place] [address] OF PER Hematocrit (Bld) [Volume fraction] 44.7 % Normal 39.0-51.0 [facility] Comment on above: Order Comment: Speci men Type: BLOOD SPECIMEN Ordering Facility: [facility] Address: [address] [place] [address] Performed By: #### 5 8410-2 #### [facility] CLIA [id number] [address] [place] [address] [place] Hemoglobin (Bld) [Mass/Vol] 13.9 g/dL Normal 13.0-17.0 [facility] Comment on above: Order Comment: Speci men Type: BLOOD SPECIMEN Ordering Facility: [facility] Address: [address] [place] [address] Performed By: #### 5 8410-2 #### [facility] CLIA [id number] [address] [place] [address] [place] MCH (RBC) [Entitic mass] 29.4 pg Normal 26.0-34.0 [facility] Comment on above: Order Comment: Speci men Type: BLOOD SPECIMEN Ordering Facility: [facility] Address: [address] [place] [address] Performed By: #### 5 8410-2 #### [facility] CLIA [id number] [address] [place] [address] [place] OF [place] MCHC (RBC) [Mass/Vol] 31.1 g/dL Normal 30.5-36.0 [facility] Comment on above: Order Comment: Speci men Type: BLOOD SPECIMEN Ordering Facility: [facility] Address: [address] [place] [address] Performed By: #### 5 8410-2 #### [facility] CLIA [id number] [address] [place] [address] OF PER MCV (RBC) [Entitic vol] 94.7 fL Normal 80.0-100.0 [facility] Comment on above: Order Comment: Speci men Type: BLOOD SPECIMEN Ordering Facility: [facility] Address: [address] [place] [address] Performed By: #### 5 8410-2 #### [facility] CLIA [id number] [address] [place] [address] [place] Nucleated RBC (Bld) [#/Vol] 10*3/uL Normal <0.01 [facility] Comment on above: Order Comment: Speci men Type: BLOOD SPECIMEN Ordering Facility: [facility] Address: [address] [place] [address] Performed By: #### 5 8410-2 #### [facility] CLIA [id number] [address] [place] [address] [place] Platelet mean volume (Bld) [Entitic vol] 9.8 fL Normal 9.0-12.7 [facility] Comment on above: Order Comment: Speci men Type: BLOOD SPECIMEN Ordering Facility: [facility] Address: [address] [place] [address] Performed By: #### 5 8410-2 #### [facility] CLIA [id number] [address] [place] [address] [place] Platelets (Bld) [#/Vol] 196 10*3/uL Normal 150-400 [facility] Comment on above: Order Comment: Speci men Type: BLOOD SPECIMEN Ordering Facility: [facility] Address: [address] [place] [address] Performed By: #### 5 8410-2 #### [facility] CLIA [id number] [address] [place] [address] [place] RBC (Bld) [#/Vol] 4.72 10*6/uL Normal 4.20-6.00 [facility] Comment on above: Order Comment: Speci men Type: BLOOD SPECIMEN Ordering Facility: [facility] Address: [address] [place] [address] Performed By: #### 5 8410-2 #### [facility] CLIA [id number] [address] [place] [address] [place] WBC (Bld) [#/Vol] 5.35 10*3/uL Normal 3.70-11.00 [facility] Comment on above: Order Comment: Speci men Type: BLOOD SPECIMEN Ordering Facility: [facility] Address: [address] [place] [address] Performed By: #### 5 8410-2 #### [facility] CLIA [id number] OF [facility] CNOVon 09-27-2023 CNOV Office Visit (ORFWHP ) ELENA FELIX ([id number]) 1960 M Date Time Provider Department 09/27/23 [...] On ASA DVT (deep venous thrombosis) ([facility]) Esophageal reflux Former smoker Kidney stones Major depressive disorder with single episode, in remission ([facility]) 08/24/2016 Morbid obesity with BMI of 40.0-44.9, adult ([facility]) Neuropathy Obstructive sleep apnea syndrome, severe On [...] with delaye (more content not included)... Normal [facility] CRP SerPl-mCncon 09-27-2023 CRP [Mass/Vol] 0.4 mg/dL Normal <0.9 [facility] Comment on above: Order Comment: Speci men Type: BLOOD SPECIMEN Ordering Facility: [facility] Address: [address] [place] [address] Performed By: #### 3 016-3, 90670-2, 1987-08 #### [facility] CLIA [id number] [address] [place] [address] [place] CRP [Mass/Vol]on 09-27-2023 Interpretation and review of laboratory results Normal [facility] Comprehensive metabolic 2000 panelon 09-27-2023 Albumin [Mass/Vol] 3.6 g/dL Low 3.9 - 4.9 g/dL [facility] ALP [Catalytic activity/Vol] 86 U/L 38 - 113 U/L [facility] ALT [Catalytic activity/Vol] 35 U/L 10 - 54 U/L [facility] Anion gap [Moles/Vol] 13 mmol/L 8 - 15 mmol/L [facility] AST [Catalytic activity/Vol] 28 U/L 14 - 40 U/L [facility] Bilirubin [Mass/Vol] 0.3 mg/dL 0.2 - 1 .3 mg/dL [facility] Calcium [Mass/Vol] 9.2 mg/dL 8.5 - 10. 2 mg/dL [facility] Chloride [Moles/Vol] 104 mmol/L 98 - 10 7 mmol/L [facility] CO2 [Moles/Vol] 25 mmol/L 22 - 30 mmol/L [facility] Creatinine [Mass/Vol] 1.13 mg/dL 0.73 - 1.22 mg/dL [facility] GFR/1.73 sq M.predicted among non-blacks MDRD (S/P/Bld) [Vol rate/Area] 73 mL/min/{1.73_m2} - PINF [facility] Comment on above: Estimated Glomerular Filtration Rate [...] 103 mg/dL High 74 - 99 mg/dL [facility] Comment on above: The [place] Diab[employer] s Association (ADA) provides guidance for [...] Standards of Medical Care in Diabetes 2016, [employer]. Diabetes Care. 2016.39(Suppl 1). Interpretation and review of laboratory results Abnormal [facility] Potassium [Moles/Vol] 4.8 mmol/L 3.7 - 5.1 mmol/L [facility] Protein [Mass/Vol] 6.8 g/dL 6.3 - 8.0 g/dL [facility] Sodium [Moles/Vol] 142 mmol/L 136 - 144 mmol/L [facility] Urea nitrogen [Mass/Vol] 12 mg/dL 9 - 24 mg/dL [facility] Albumin [Mass/Vol] 3.6 g/dL Low 3.9-4.9 [facility] Comment on above: Order Comment: Speci men Type: BLOOD SPECIMEN Ordering Facility: [facility] Address: [address] [place] [address] Performed By: #### 3 016-3, , 1987-08 #### [facility] CLIA [id number] [address] [place] [address] [place] ALP [Catalytic activity/Vol] 86 U/L Normal 38-113 [facility] Comment on above: Order Comment: Speci men Type: BLOOD SPECIMEN Ordering Facility: [facility] Address: [address] [place] [address] Performed By: #### 3 016-3, , 1987-08 #### [facility] CLIA [id number] [address] [place] [address] [place] ALT [Catalytic activity/Vol] 35 U/L Normal 10-54 [facility] Comment on above: Order Comment: Speci men Type: BLOOD SPECIMEN Ordering Facility: [facility] Address: [address] [place] [address] Performed By: #### 3 016-3, , 1987-08 #### [facility] CLIA [id number] [address] [place] [address] [place] Anion gap [Moles/Vol] 13 mmol/L Normal 8-15 [facility] Comment on above: Order Comment: Speci men Type: BLOOD SPECIMEN Ordering Facility: [facility] Address: [address] [place] [address] Performed By: #### 3 3, 1987-5 #### [facility] CLIA [id number] [address] [place] [address] [place] AST [Catalytic activity/Vol] 28 U/L Normal 14-40 [facility] Comment on above: Order Comment: Speci men Type: BLOOD SPECIMEN Ordering Facility: [facility] Address: [address] [place] [address] Performed By: #### 3 0163, , 1987-08 #### [facility] CLIA [id number] [address] [place] [address] [place] Bilirubin [Mass/Vol] 0.3 mg/dL Normal 0.2-1.3 [facility] Comment on above: Order Comment: Speci men Type: BLOOD SPECIMEN Ordering Facility: [facility] Address: [address] [place] [address] Performed By: #### 3 3, , 1987-08 #### [facility] CLIA [id number] [address] [place] [address] [place] Calcium [Mass/Vol] 9.2 mg/dL Normal 8.5-10.2 [facility] Comment on above: Order Comment: Speci men Type: BLOOD SPECIMEN Ordering Facility: [facility] Address: [address] [place] [address] Performed By: #### 3 3, , 1987-08 #### [facility] CLIA [id number] [address] [place] [address] [place] Chloride [Moles/Vol] 104 mmol/L Normal 98-107 [facility] Comment on above: Order Comment: Speci men Type: BLOOD SPECIMEN Ordering Facility: [facility] Address: [address] [place] [address] Performed By: #### 3 016-3, , 1987-08 #### [facility] CLIA [id number] [address] [place] [address] [place] CO2 [Moles/Vol] 25 mmol/L Normal 22-30 [facility] Comment on above: Order Comment: Speci men Type: BLOOD SPECIMEN Ordering Facility: [facility] Address: [address] [id number] Performed By: #### 3 016-3, , 1987-08 #### [facility] CLIA [id number] [address] [place] [id number] [place] Creatinine [Mass/Vol] 1.13 mg/dL Normal 0.73-1.22 [facility] Comment on above: Order Comment: Jimena men Type: BLOOD SPECIMEN Ordering Facility: [facility] Address: [address] [place] [address] Performed By: #### 3 016-3, , 1987-08 #### [facility] CLIA [id number] [place] [address] [place] Creatinine and Glomerular filtration rate.predicted panel (S/P/Bld) 73 mL/min/1.73m??? Normal >=60 [facility] Comment on above: Order Comment: Jimena wallace Type: BLOOD SPECIMEN Ordering Facility: [facility] Address: [address] [place] [address] Result Comment: Aneta mated Glomerular Filtration Rate [...] By: #### 3 016-3, , 1987-08 #### [facility] CLIA [id number] [place] [address] [place] Glucose [Mass/Vol] 103 mg/dL High 74-99 [facility] Comment on above: Order Comment: Jimena madison Type: BLOOD SPECIMEN Ordering Facility: [facility] Address: [address] [place] [address] Result Comment: The [employer] Diabetes Association (ADA) provides guidance for cutoff [...] Standards of Medical Care in Diabetes 2016, [employer]. Diabetes Care. 2016.39(Suppl 1). Performed By: #### 3 016-3, , 1987-08 #### [facility] CLIA [id number] [address] [place] [address] [place] Potassium [Moles/Vol] 4.8 mmol/L Normal 3.7-5.1 [facility] Comment on above: Order Comment: Jimena wallace Type: BLOOD SPECIMEN Ordering Facility: [facility] Address: [address] [place] [address] Performed By: #### 3 3, , 1987-08 #### [facility] CLIA [id number] [address] [place] [address] [place] Protein [Mass/Vol] 6.8 g/dL Normal 6.3-8.0 [facility] Comment on above: Order Comment: Jimena wallace Type: BLOOD SPECIMEN Ordering Facility: [facility] Address: [address] [place] [address] Performed By: #### 3 -3, , 1987-08 #### [facility] CLIA [id number] [address] [place] [address] [place] Sodium [Moles/Vol] 142 mmol/L Normal 136-144 [facility] Comment on above: Order Comment: Jimena wallace Type: BLOOD SPECIMEN Ordering Facility: [facility] Address: [address] [place] [address] Performed By: #### 3 3, , 1987-08 #### [facility] CLIA [id number] [place] [address] [place] Urea nitrogen [Mass/Vol] 12 mg/dL Normal 9-24 [facility] Comment on above: Order Comment: Jimena madison Type: BLOOD SPECIMEN Ordering Facility: [facility] Address: [address] [place] [address] Performed By: #### 3 016-3, 27712-3, 1987-08 #### [facility] CLIA [id number] [address] [place] [address] [place] ESR Westergren method (Bld) [Velocity]on 09-27-2023 ESR (Bld) [Velocity] 26 mm/h High [facility] Interpretation and review of laboratory results Abnormal [facility] ESR (Bld) [Velocity] 26 mm/h High 0-15 [facility] Comment on above: Order Comment: Jimena wallace Type: BLOOD SPECIMEN Ordering Facility: [facility] Address: [address] [place] [address] Performed By: #### 4 537-7 #### [facility] CLIA [id number] [address] [place] [address] [id number] [place] [address] [place] Erythrocyte distribution wid th Auto (RBC) [Ratio]on 09-27-2023 Erythrocyte distribution width (RBC) [Ratio] 13.9 % 11.5-15.0 [facility] Hematocrit Auto (Bld) [Volum e fraction]on 09-27-2023 Hematocrit (Bld) [Volume fraction] 44.7 % 39.0-51.0 [facility] Hemoglobin [Mass/volume] in Bloodon 09-27-2023 Hemoglobin (Bld) [Mass/Vol] 13.9 g/dL 13.0-17.0 [facility] Laboratory - Chemistry and C hemistry - challengeon 09-27-2023 Albumin [Mass/Vol] 3.6 g/dL 3.9-4.9 [facility] ALP [Catalytic activity/Vol] 86 U/L 38-113 [facility] ALT [Catalytic activity/Vol] 35 U/L 10-54 [facility] AST [Catalytic activity/Vol] 28 U/L 14-40 [facility] Bilirubin [Mass/Vol] 0.3 mg/dL 0.2-1.3 [facility] Calcium [Mass/Vol] 9.2 mg/dL 8.5-10.2 [facility] Chloride [Moles/Vol] 104 mmol/L 98-107 [facility] CO2 [Moles/Vol] 25 mmol/L 22-30 [facility] Creatinine [Mass/Vol] 1.13 mg/dL 0.73-1.22 [facility] Glucose [Mass/Vol] 103 mg/dL 74-99 [facility] Comment on above: The [place] Diabete s Association (ADA) provides guidance for [...] Standards of Medical Care in Diabetes 2016, [employer]. Diabetes Care. 2016.39(Suppl 1). Potassium [Moles/Vol] 4.8 mmol/L 3.7-5.1 [facility] Sodium [Moles/Vol] 142 mmol/L 136-144 [facility] TSH Qn 0.957 m[IU]/L 0.270-4.20 0 [facility] Urea nitrogen [Mass/Vol] 12 mg/dL 9-24 [facility] Laboratory - Hematology and Cell countson 09-27-2023 ESR (Bld) [Velocity] 26 mm/h 0-15 [facility] Leukocytes [#/volume] correc christen for nucleated erythrocytes in Blood by Automated counon 09-27-2023 WBC corrected for nucl RBC Auto (Bld) [#/Vol] 5.35 k/uL 3.70-11.00 [facility] MCH Auto (RBC) [Entitic mass ]on 09-27-2023 MCH (RBC) [Entitic mass] 29.4 pg 26.0-34.0 [facility] MCHC Auto (RBC) [Mass/Vol]on 09-27-2023 MCHC (RBC) [Mass/Vol] 31.1 g/dL 30.5-36.0 [facility] MCV Auto (RBC) [Entitic vol] on 09-27-2023 MCV (RBC) [Entitic vol] 94.7 fL 80.0-100.0 [facility] No Panel Informationon 09-26 [facility] C-Reactive Protein, Quantitative 0.4 mg/dL <0.9 [facility] Estimated GFR (CKD-EPI) 73 mL/min/1.73m??? >=60 [facility] Comment on above: Estimated Glomerular Filtration [...] Hormone (Intact) 135 pg/mL 15-65 [facility] Nucleated RBC Auto (Bld) [#/ Vol]on 09-27-2023 Nucleated RBC (Bld) [#/Vol] 10*3/uL <0.01 [facility] PTH INTACTon 09-27-2023 Parathyrin.intact [Mass/Vol] 135 pg/mL High 15 - 65 pg/mL [facility] PTH-Intact SerPl-mCncon - Parathyrin.intact [Mass/Vol] 135 pg/mL High 15-65 [facility] Comment on above: Order Comment: Speci men Type: BLOOD SPECIMENOrdering Facility: [facility] Address: [address] [place] [address] Performed By: #### 2 731-8 ####[facility] [id number] [place] [address] [place] Parathyrin.intact [Mass/Vol] on 09-27-2023 Interpretation and review of laboratory results Abnormal [facility] Platelet mean volume Auto (B ld) [Entitic vol]on 09-27-2023 Platelet mean volume (Bld) [Entitic vol] 9.8 fL 9.0-12.7 [facility] Platelets Auto (Bld) [#/Vol] on 09-27-2023 Platelets (Bld) [#/Vol] 196 10*3/uL 150-400 [facility] Protein [Mass/volume] in Ser um or Plasmaon 09-27-2023 Protein [Mass/Vol] 6.8 g/dL 6.3-8.0 [facility] RBC Auto (Bld) [#/Vol]on RBC (Bld) [#/Vol] 4.72 10*6/uL 4.20-6.00 [facility] Serum or plasma anion gap de terminationon 09-27-2023 Anion gap [Moles/Vol] 13 mmol/L 8-15 [facility] Serum or plasma calcidiol me asurement (mass/volume)on 09-27-2023 25-hydroxyvitamin D3 [Mass/Vol] 19.7 ng/mL 31.0-80.0 [facility] Comment on above: Classification of 25 [place] Vitamin D status: Deficiency/Insufficiency: < or = 30 ng/ml.Sufficiency/Optimal Levels: 31-80 ng/mLToxicity: > 100 ng/mL. Test performed by chemiluminescent immunoassay. THYROID STIMULATING HORMONEo n 09-27-2023 TSH Qn 0.957 m[IU]/L [facility] TSH Qnon 09-27-2023 Interpretation and review of laboratory results Normal [facility] TSH SerPl-aCncon 09-27-2023 TSH Qn 0.957 m[IU]/L Normal 0.270-4.20 0 [facility] Comment on above: Order Comment: Speci men Type: BLOOD SPECIMEN Ordering Facility: [facility] Address: [address] [place] [address] Performed By: #### 3 016-3, 65350-3, 1987-08 #### [facility] CLIA [id number] [address] [place] [address] [place] VITAMIN D 25 HYDROXYon 09-26 25-hydroxyvitamin D3 [Mass/Vol] 19.7 ng/mL Low 31.0 - 80.0 ng/mL [facility] Comment on above: Classification of 25 [place] [...] This is not available at this time. [facility] Transcribe Date/Time: Oct 03 2023 3:33P Dictated by : TRENTON COX MD This examination was interpreted and the report reviewed and electronically signed by: TRENTON COX MD on Oct 03 2023 3:36PM EST [id number] Normal [facility] Alanine aminotransferase [En zymatic activity/volume] in Serum or PlasmaOrdered By: Safia Enrique on 2023 ALT [Catalytic activity/Vol] 18 U/L 7-52 [facility] Albumin [Mass/volume] in Ser um or Plasma by Bromocresol green (BCG) dye binding methoOrdered By: Safia Enrique on 2023 Albumin BCG dye [Mass/Vol] 3.8 g/dL 3.5-5.7 [facility] Alkaline phosphatase [Enzyma tic activity/volume] in Serum or PlasmaOrdered By: Safia Enrique on 2023 ALP [Catalytic activity/Vol] 72 U/L 34-104 [facility] Aspartate aminotransferase [ Enzymatic activity/volume] in Serum or PlasmaOrdered By: Safia Enrique on 2023 AST [Catalytic activity/Vol] 18 U/L 13-39 [facility] Basophils Auto (Bld) [#/Vol] Ordered By: Safia Enrique on 2023 Basophils (Bld) [#/Vol] 0.1 10*3/uL 0.0-0.2 [facility] Basophils/100 WBC Auto (Bld) Ordered By: Safia Enrique on 2023 Basophils/100 WBC (Bld) 0.8 % . [facility] Bilirubin.total [Mass/volume ] in Serum or PlasmaOrdered By: Safia Enrique on 2023 Bilirubin [Mass/Vol] 0.4 mg/dL 0.3-1.0 [facility] Calcium [Mass/volume] in Ser um or PlasmaOrdered By: Safia Enirque on 2023 Calcium [Mass/Vol] 9.1 mg/dL 8.6-10.3 [facility] Carbon dioxide, total [Moles /volume] in Serum or PlasmaOrdered By: Safia Enrique on 2023 CO2 [Moles/Vol] 28.2 mmol/L 21.0-31.0 [facility] Chloride [Moles/volume] in S eliza or PlasmaOrdered By: Safia Enrique on 2023 Chloride [Moles/Vol] 106 mmol/L 98-107 [facility] Creatinine [Mass/volume] in Serum or PlasmaOrdered By: Safia Enrique on 2023 Creatinine [Mass/Vol] 1.37 mg/dL 0.70-1.30 [facility] Eosinophils Auto (Bld) [#/Vo l]Ordered By: Safia Enrique on 2023 Eosinophils (Bld) [#/Vol] 0.5 10*3/uL 0.0-0.45 [facility] Eosinophils/100 WBC Auto (Bl d)Ordered By: Safia Enrique on 05-14-2024 Eosinophils/100 WBC (Bld) 6.8 % . [facility] Erythrocyte distribution wid th Auto (RBC) [Ratio]Ordered By: Safia Enrique on 2023 Erythrocyte distribution width (RBC) [Ratio] 14.3 % 12.0-14.8 [facility] Erythrocyte sedimentation ra te by Photometric methodOrdered By: Safia Enrique on 2023 ESR Photometric method (Bld) [Velocity] 39 mm/hr 0-19 [facility] Globulin Calc (S) [Mass/Vol] Ordered By: Safia Enrique on 2023 Globulin (S) [Mass/Vol] 2.8 g/dL [facility] Glucose [Mass/volume] in Ser um or PlasmaOrdered By: Safia Enrique on 2023 Glucose [Mass/Vol] 112 mg/dL 70-100 [facility] Comment on above: ADA recommended refe rence rangeRandom Glucose Reference Range is dependent on time and content of last meal. Glucose of more than 200 mg/dL in a nonstressed, ambulatory subject supports the diagnosis of Diabetes Mellitus. Hematocrit Auto (Bld) [Volum e fraction]Ordered By: Safia Enrique on 2023 Hematocrit (Bld) [Volume fraction] 42.0 % 38.8-50.0 [facility] Hemoglobin [Mass/volume] in BloodOrdered By: Safia Enrique on 2023 Hemoglobin (Bld) [Mass/Vol] 13.8 g/dL 13.0-17.0 [facility] Leukocytes [#/volume] correc christen for nucleated erythrocytes in Blood by Automated counOrdered By: Safia Enrique on 2023 WBC corrected for nucl RBC Auto (Bld) [#/Vol] 6.7 10*3/uL 4.1-10.5 [facility] Lymphocytes Auto (Bld) [#/Vo l]Ordered By: Safia Enrique on 2023 Lymphocytes (Bld) [#/Vol] 1.5 10*3/uL 1.00-4.8 [facility] Lymphocytes/100 WBC Auto (Bl d)Ordered By: Safia Enrique on 2023 Lymphocytes/100 WBC (Bld) 21.9 % . [facility] MCH Auto (RBC) [Entitic mass ]Ordered By: Safia Enriuqe on 2023 MCH (RBC) [Entitic mass] 30.5 pg 27.5-35.2 [facility] MCHC Auto (RBC) [Mass/Vol]Or dered By: Safia Enrique on 2023 MCHC (RBC) [Mass/Vol] 32.9 g/dL 32.5-35.6 [facility] MCV Auto (RBC) [Entitic vol] Ordered By: Safia Enrique on 2023 MCV (RBC) [Entitic vol] 92.7 fL 83.5-101 [facility] Monocytes Auto (Bld) [#/Vol] Ordered By: Safia Enrique on 2023 Monocytes (Bld) [#/Vol] 0.9 10*3/uL 0.0-0.8 [facility] Monocytes/100 WBC Auto (Bld) Ordered By: Safia Enrique on 2023 Monocytes/100 WBC (Bld) 13.3 % . [facility] Neutrophils Auto (Bld) [#/Vo l]Ordered By: Safia Enrique on 2023 Neutrophils (Bld) [#/Vol] 3.8 10*3/uL 1.8-7.7 [facility] Neutrophils/100 WBC Auto (Bl d)Ordered By: Safia Enrique on 2023 Neutrophils/100 WBC (Bld) 57.2 % . [facility] No Panel InformationOrdered By: Safia Enrique on 2023 Estimated GFR (CKD-EPI) 58.325 mL/Min [facility] Creatinine Clearance (Chem N/A [facility] Nucleated erythrocytes [Pres ence] in Blood by Automated countOrdered By: Safia Enrique on 2023 Nucleated RBC Auto Ql (Bld) 0.1 /100{WBC} 0-0.5 [facility] Platelet mean volume Auto (B ld) [Entitic vol]Ordered By: Safia Enrique on 2023 Platelet mean volume (Bld) [Entitic vol] 8.8 fL 6.6-10.1 [facility] Platelets Auto (Bld) [#/Vol] Ordered By: Safia Enrique on 2023 Platelets (Bld) [#/Vol] 224 10*3/uL 150-450 [facility] Potassium [Moles/volume] in Serum or PlasmaOrdered By: Safia Enrique on 2023 Potassium [Moles/Vol] 4.8 mmol/L 3.5-5.1 [facility] Protein [Mass/volume] in Ser um or PlasmaOrdered By: Safia Enrique on 2023 Protein [Mass/Vol] 6.6 g/dL 6.4-8.9 [facility] RBC Auto (Bld) [#/Vol]Ordere d By: Safia Enrique on 2023 RBC (Bld) [#/Vol] 4.53 10*6/uL 3.90-5.60 [facility] Serum or plasma albumin/glob ulin mass ratioOrdered By: Safia Enrique on 2023 Albumin/Globulin [Mass ratio] 1.4 {ratio} [facility] Serum or plasma anion gap de terminationOrdered By: Safia Enrique on 2023 Anion gap [Moles/Vol] 12.6 mmol/L 6.0-15.0 [facility] Sodium [Moles/volume] in Ser um or PlasmaOrdered By: Safia Enrique on 2023 Sodium [Moles/Vol] 142 mmol/L 136-145 [facility] Urea nitrogen [Mass/volume] in Serum or PlasmaOrdered By: Safia Enrique on 2023 Urea nitrogen [Mass/Vol] 20 mg/dL 7-25 [facility] WBC Auto (Bld) [#/Vol]Ordere d By: Saifa Enrique on 2023 WBC (Bld) [#/Vol] 6.7 10*3/uL 4.1-10.5 [facility] Lab Reportson 08-14-2023 Lab Reports [id number] Normal [facility] No Panel Informationon 08-01 Prostate Specific Antigen Total 1.08 ng/mL <=4.00 [facility] Alanine aminotransferase [En zymatic activity/volume] in Serum or PlasmaOrdered By: Brad Hodges on 05-03-2023 ALT [Catalytic activity/Vol] 18 U/L 7-52 [facility] Albumin [Mass/volume] in Ser um or Plasma by Bromocresol green (BCG) dye binding methoOrdered By: Brad Hodges on 05-03-2023 Albumin BCG dye [Mass/Vol] 3.6 g/dL 3.5-5.7 [facility] Alkaline phosphatase [Enzyma tic activity/volume] in Serum or PlasmaOrdered By: Brad Hodges on 05-03-2023 ALP [Catalytic activity/Vol] 66 U/L 34-104 [facility] Aspartate aminotransferase [ Enzymatic activity/volume] in Serum or PlasmaOrdered By: Brad Hodges on 05-03-2023 AST [Catalytic activity/Vol] 16 U/L 13-39 [facility] Basophils Auto (Bld) [#/Vol] Ordered By: Brad Hodges on 05-03-2023 Basophils (Bld) [#/Vol] 0.0 10*3/uL 0.0-0.2 [facility] Basophils/100 WBC Auto (Bld) Ordered By: Brad Hodges on 05-03-2023 Basophils/100 WBC (Bld) 0.9 % . [facility] Bilirubin.total [Mass/volume ] in Serum or PlasmaOrdered By: Brad Hodges on 05-03-2023 Bilirubin [Mass/Vol] 0.4 mg/dL 0.3-1.0 [facility] Calcium [Mass/volume] in Ser um or PlasmaOrdered By: Brad Hodges on 05-03-2023 Calcium [Mass/Vol] 9.1 mg/dL 8.6-10.3 [facility] Carbon dioxide, total [Moles /volume] in Serum or PlasmaOrdered By: Brad Hodges on 05-03-2023 CO2 [Moles/Vol] 29.5 mmol/L 21.0-31.0 [facility] Chloride [Moles/volume] in S eliza or PlasmaOrdered By: Brad Hodges on 05-03-2023 Chloride [Moles/Vol] 107 mmol/L 98-107 [facility] Creatinine [Mass/volume] in Serum or PlasmaOrdered By: Brad Hodges on 05-03-2023 Creatinine [Mass/Vol] 1.33 mg/dL 0.70-1.30 [facility] Eosinophils Auto (Bld) [#/Vo l]Ordered By: Brad Hodges on 05-03-2023 Eosinophils (Bld) [#/Vol] 0.3 10*3/uL 0.0-0.45 [facility] Eosinophils/100 WBC Auto (Bl d)Ordered By: Brad Hodges on 05-03-2023 Eosinophils/100 WBC (Bld) 6.6 % . [facility] Erythrocyte distribution wid th Auto (RBC) [Ratio]Ordered By: Brad Hodges on 05-03-2023 Erythrocyte distribution width (RBC) [Ratio] 15.9 % 12.0-14.8 [facility] Erythrocyte sedimentation ra te by Photometric methodOrdered By: Brad Hodges on 05-03-2023 ESR Photometric method (Bld) [Velocity] 35 mm/hr 0-19 [facility] Globulin Calc (S) [Mass/Vol] Ordered By: Brad Hodges on 05-03-2023 Globulin (S) [Mass/Vol] 2.6 g/dL [facility] Glucose [Mass/volume] in Ser um or PlasmaOrdered By: Brad Hodges on 05-03-2023 Glucose [Mass/Vol] 122 mg/dL 70-100 [facility] Comment on above: ADA recommended refe rence rangeRandom Glucose Reference Range is dependent on time and content of last meal. Glucose of more than 200 mg/dL in a nonstressed, ambulatory subject supports the diagnosis of Diabetes Mellitus. Hematocrit Auto (Bld) [Volum e fraction]Ordered By: Brad Hodges on 05-03-2023 Hematocrit (Bld) [Volume fraction] 38.5 % 38.8-50.0 [facility] Hemoglobin [Mass/volume] in BloodOrdered By: Brad Hodges on 05-03-2023 Hemoglobin (Bld) [Mass/Vol] 12.3 g/dL 13.0-17.0 [facility] Leukocytes [#/volume] correc christen for nucleated erythrocytes in Blood by Automated counOrdered By: Brad Hodges on 05-03-2023 WBC corrected for nucl RBC Auto (Bld) [#/Vol] 4.8 10*3/uL 4.1-10.5 [facility] Lymphocytes Auto (Bld) [#/Vo l]Ordered By: Brad Hodges on 05-03-2023 Lymphocytes (Bld) [#/Vol] 1.2 10*3/uL 1.00-4.8 [facility] Lymphocytes/100 WBC Auto (Bl d)Ordered By: Brad Hodges on 05-03-2023 Lymphocytes/100 WBC (Bld) 25.4 % . [facility] MCH Auto (RBC) [Entitic mass ]Ordered By: Brad Hodges on 05-03-2023 MCH (RBC) [Entitic mass] 29.5 pg 27.5-35.2 [facility] MCHC Auto (RBC) [Mass/Vol]Or dered By: Brad Hodges on 05-03-2023 MCHC (RBC) [Mass/Vol] 32.0 g/dL 32.5-35.6 [facility] MCV Auto (RBC) [Entitic vol] Ordered By: Brad Hodges on 05-03-2023 MCV (RBC) [Entitic vol] 92.1 fL 83.5-101 [facility] Monocytes Auto (Bld) [#/Vol] Ordered By: Brad Hodges on 05-03-2023 Monocytes (Bld) [#/Vol] 0.2 10*3/uL 0.0-0.8 [facility] Monocytes/100 WBC Auto (Bld) Ordered By: Brad Hodges on 05-03-2023 Monocytes/100 WBC (Bld) 4.3 % . [facility] Neutrophils Auto (Bld) [#/Vo l]Ordered By: Brad Hodges on 05-03-2023 Neutrophils (Bld) [#/Vol] 3.0 10*3/uL 1.8-7.7 [facility] Neutrophils/100 WBC Auto (Bl d)Ordered By: Brad Hodges on 05-03-2023 Neutrophils/100 WBC (Bld) 62.8 % . [facility] No Panel InformationOrdered By: Brad Hodges on 05-03-2023 Estimated GFR (CKD-EPI) > 60.0 mL/Min [facility] Creatinine Clearance (Chem N/A [facility] Nucleated erythrocytes [Pres ence] in Blood by Automated countOrdered By: Brad Hodges on 05-03-2023 Nucleated RBC Auto Ql (Bld) 0.1 /100{WBC} 0-0.5 [facility] Platelet mean volume Auto (B ld) [Entitic vol]Ordered By: Brad Hodges on 05-03-2023 Platelet mean volume (Bld) [Entitic vol] 8.2 fL 6.6-10.1 [facility] Platelets Auto (Bld) [#/Vol] Ordered By: Brad Hodges on 05-03-2023 Platelets (Bld) [#/Vol] 249 10*3/uL 150-450 [facility] Potassium [Moles/volume] in Serum or PlasmaOrdered By: Brad Hodges on 05-03-2023 Potassium [Moles/Vol] 4.6 mmol/L 3.5-5.1 [facility] Protein [Mass/volume] in Ser um or PlasmaOrdered By: Brad Hodges on 05-03-2023 Protein [Mass/Vol] 6.2 g/dL 6.4-8.9 [facility] RBC Auto (Bld) [#/Vol]Ordere d By: Brad Hodges on 05-03-2023 RBC (Bld) [#/Vol] 4.17 10*6/uL 3.90-5.60 [facility] Serum or plasma albumin/glob ulin mass ratioOrdered By: Brad Hodges on 05-03-2023 Albumin/Globulin [Mass ratio] 1.4 {ratio} [facility] Serum or plasma anion gap de terminationOrdered By: Brad Hodges on 05-03-2023 Anion gap [Moles/Vol] 10.1 mmol/L 6.0-15.0 [facility] Sodium [Moles/volume] in Ser um or PlasmaOrdered By: Brad Hodges on 05-03-2023 Sodium [Moles/Vol] 142 mmol/L 136-145 [facility] Urea nitrogen [Mass/volume] in Serum or PlasmaOrdered By: Brad Hodges on 05-03-2023 Urea nitrogen [Mass/Vol] 22 mg/dL 7-25 [facility] WBC Auto (Bld) [#/Vol]Ordere d By: Brad Hodges on 05-03-2023 WBC (Bld) [#/Vol] 4.8 10*3/uL 4.1-10.5 [facility] Anaerobic cultureOrdered By: Silvana Lundberg on 10-31-2022 Bacteria identified Anaer cx Nom (Unsp spec) No Anaerobes Isolated 3 Days [facility] Bacteria identified Aer cx N om (Unsp spec)Ordered By: Silvana Lundberg on 10-31-2022 Aerobic Culture Staphylococcus aureus [facility] Gram stain for investigation of transfusion reactionOrdered By: Silvana Lundberg on 10-31-2022 Microscopic observation Gram stain Nom (Unsp spec) [facility] EMG(NEURO/NI)on 10-16-2022 [facility] CBC panel Auto (Bld)on 10-06 Erythrocyte distribution width (RBC) [Ratio] 16.0 % High 11.5 - 15.0 % [facility] Hematocrit (Bld) [Volume fraction] 40.1 % 39.0 - 51.0 % [facility] Hemoglobin (Bld) [Mass/Vol] 12.3 g/dL Low 13.0 - 17.0 g/dL [facility] MCH (RBC) [Entitic mass] 31.6 pg 26.0 - 34.0 pg [facility] MCHC (RBC) [Mass/Vol] 30.7 g/dL 30.5 - 36.0 g/dL [facility] MCV (RBC) [Entitic vol] 103.1 fL High 80.0 - 100.0 fL [facility] Nucleated RBC (Bld) [#/Vol] <0.01 k/uL [facility] Platelet mean volume (Bld) [Entitic vol] 10.2 fL 9.0 - 12.7 fL [facility] Platelets (Bld) [#/Vol] 286 10*3/uL 150 - 400 k/uL [facility] RBC (Bld) [#/Vol] 3.89 10*6/uL Low 4.20 - 6.00 m/uL [facility] WBC (Bld) [#/Vol] 7.15 10*3/uL 3.70 - 11.00 k/uL [facility] CERULOPLASMIN BLDon 10-07-19 Ceruloplasmin [Mass/Vol] 30 mg/dL 15 - 30 mg/dL [facility] Comprehensive metabolic 2000 panelon 10-06-2022 Albumin [Mass/Vol] 3.6 g/dL Low 3.9 - 4.9 g/dL [facility] ALP [Catalytic activity/Vol] 72 U/L 38 - 113 U/L [facility] ALT [Catalytic activity/Vol] 17 U/L 10 - 54 U/L [facility] Anion gap [Moles/Vol] 9 mmol/L 9 - 18 mmol/L [facility] AST [Catalytic activity/Vol] 21 U/L 14 - 40 U/L [facility] Bilirubin [Mass/Vol] 0.2 mg/dL 0.2 - 1 .3 mg/dL [facility] Calcium [Mass/Vol] 9.5 mg/dL 8.5 - 10. 2 mg/dL [facility] Chloride [Moles/Vol] 108 mmol/L High 97 - 10 5 mmol/L [facility] CO2 [Moles/Vol] 25 mmol/L 22 - 30 mmol/L [facility] Creatinine [Mass/Vol] 1.43 mg/dL High 0.73 - 1.22 mg/dL [facility] Estimated Glomerular Filtration Rate 55 mL/min/1.73m Low >=60 mL/min/1.7 3m [facility] Glucose [Mass/Vol] 100 mg/dL High 74 - 99 mg/dL [facility] Potassium [Moles/Vol] 5.4 mmol/L High 3.7 - 5.1 mmol/L [facility] Protein [Mass/Vol] 6.7 g/dL 6.3 - 8.0 g/dL [facility] Sodium [Moles/Vol] 142 mmol/L 136 - 144 mmol/L [facility] Urea nitrogen [Mass/Vol] 24 mg/dL 9 - 24 mg/dL [facility] FERRITIN BLDon 10-06-2022 Ferritin [Mass/Vol] 143.0 ng/mL 30.3 - 565.7 ng/mL [facility] FOLATE SERUMon 10-06-2022 Folate [Mass/Vol] 8.8 ng/mL >4.7 ng/mL [facility] HOMOCYSTEINEon 10-06-2022 Homocysteine [Moles/Vol] 14.7 umol/L <15.1 umol/L [facility] TSH BLDon 10-06-2022 TSH Qn 2.100 m[IU]/L 0.270 - 4.200 mIU/L [facility] VITAMIN B12 BLOODon 10-07-19 Cobalamin (Vitamin B12) [Mass/Vol] 355 pg/mL 232 - 1,245 pg/mL [facility] NM LUNG VENT / PERF VQon [facility] ECHOon 09-13-2022 [facility] LVEF ECHOon 09-13-2022 LV Ejection Fraction 51 % Abnormal <52 % [facility] CBC AUTO DIFFon 09-06-2022 BASO # 0.1 103/ul Normal 0.0-0.1 [facility] Comment on above: Performed By: #### C MADM, BNP, BMP #### [facility] [address] [address] [address] Risa Patterson Basophils/100 WBC (Bld) 1.1 % Normal 0.2-2.0 [facility] Comment on above: Performed By: #### C MADM, BNP, BMP #### [facility] [address] [address] [address] Risa Patterson EO # 0.3 103/ul Normal 0.0-0.7 [facility] Comment on above: Performed By: #### C MADM, BNP, BMP #### [facility] [address] [address] [address] Risa Patterson Eosinophils/100 WBC (Bld) 5.9 % Normal 0.9-7.0 [facility] Comment on above: Performed By: #### C MADM, BNP, BMP #### [facility] [address] [place] [address] Dr. Risa Patterson Erythrocyte distribution width (RBC) [Ratio] 15.1 % Critically high 11.0-15.0 [facility] Comment on above: Performed By: #### C MADM, BNP, BMP #### [facility] [address] [place] [address] Dr. Risa Patterson Hematocrit (Bld) [Volume fraction] 36.6 % Critically low 42.0-54.0 [facility] Comment on above: Performed By: #### C MADM, BNP, BMP #### [facility] [address] [place] [address] Dr. Risa Patterson Hemoglobin (Bld) [Mass/Vol] 11.4 g/dL Critically low 14.0-18.0 [facility] Comment on above: Performed By: #### C MADM, BNP, BMP #### [facility] [address] [place] [address] Dr. Risa Patterson IG # 0.02 10e3/ul Normal 0.00-0.03 [facility] Comment on above: Performed By: #### C MADM, BNP, BMP #### [facility] [address] [place] [address] Dr. Risa Patterson IG % 0.4 % Normal 0.0-0.5 [facility] Comment on above: Performed By: #### C MADM, BNP, BMP #### [facility] [address] [place] [address] Dr. Risa Patterson LYMPH # 0.9 103/ul Critically low 1.2-3.8 [facility] Comment on above: Performed By: #### C MADM, BNP, BMP #### [facility] [address] [place] [address] Dr. Risa Patterson Lymphocytes/100 WBC (Bld) 20.4 % Critically low 20.5-60.0 [facility] Comment on above: Performed By: #### C MADM, BNP, BMP #### [facility] [address] [place] [address] Dr. Risa Patterson MANUAL DIFF REQ NO Normal [facility] Comment on above: Performed By: #### C MADM, BNP, BMP #### [facility] [address] [place] [address] Dr. Risa Patterson MCH (RBC) [Entitic mass] 31.1 pg Normal 25.9-34.0 [facility] Comment on above: Performed By: #### C MADM, BNP, BMP #### [facility] [address] [place] [address] Dr. Risa Patterson MCHC (RBC) [Mass/Vol] 31.1 g/dL Normal 29.9-35.2 [facility] Comment on above: Performed By: #### C MADM, BNP, BMP #### [facility] [address] [place] [address] Dr. Risa Patterson MCV (RBC) [Entitic vol] 100.0 fL Critically high 80.0-94.0 [facility] Comment on above: Performed By: #### C MADM, BNP, BMP #### [facility] [address] [place] [address] Dr. Risa Patterson MONO # 0.3 103/ul Normal 0.3-0.8 [facility] Comment on above: Performed By: #### C MADM, BNP, BMP #### [facility] [address] [place] [address] Dr. Risa Patterson Monocytes/100 WBC (Bld) 6.6 % Normal 1.7-12.0 [facility] Comment on above: Performed By: #### C MADM, BNP, BMP #### [facility] [address] [place] [address] Dr. Risa Patterson NEUT # 3.0 103/ul Normal 1.4-6.5 [facility] Comment on above: Performed By: #### C MADM, BNP, BMP #### [facility] [address] [place] [address] Dr. Risa Patterson Neutrophils/100 WBC (Bld) 65.6 % Normal 43.0-75.0 [facility] Comment on above: Performed By: #### C MADM, BNP, BMP #### [facility] [address] [place] [address] Dr. Risa Patterson Platelet mean volume (Bld) [Entitic vol] 9.1 fL Critically low 9.5-13.5 [facility] Comment on above: Performed By: #### C MADM, BNP, BMP #### [facility] [address] [place] [address] Dr. Risa Patterson PLT 286 103/ul Normal 150-450 [facility] Comment on above: Performed By: #### C MADM, BNP, BMP #### [facility] [address] [place] [address] Dr. Risa Patterson RBC 3.66 106/ul Critically low 4.70-6.10 [facility] Comment on above: Performed By: #### C MADM, BNP, BMP #### [facility] [address] [place] [address] Dr. Risa Patterson WBC 4.6 103/ul Normal 4.0-11.0 [facility] Comment on above: Performed By: #### C MADM, BNP, BMP #### [facility] [address] [place] [address] Dr. Risa Patterson PROF 14(COMP METB)on 023 Albumin [Mass/Vol] 2.9 g/dL Critically low 3.4-5.0 [facility] Comment on above: Performed By: #### C MP #### [facility] [address] [place] [address] Dr. Risa Patterson Albumin/Globulin [Mass ratio] 0.7 {ratio} Normal [facility] Comment on above: Performed By: #### C MP #### [facility] [address] [place] [address] Dr. Risa Patterson ALP [Catalytic activity/Vol] 66 U/L Normal 46-116 [facility] Comment on above: Performed By: #### C MP #### [facility] [address] [address] [address] Risa Patterson ALT [Catalytic activity/Vol] 31 U/L Normal 16-63 [facility] Comment on above: Performed By: #### C MP #### [facility] [address] [place] [address] Dr. Risa Patterson Anion gap [Moles/Vol] 15.6 mmol/L Normal [facility] Comment on above: Performed By: #### C MP #### [facility] [address] [address] [address] Risa Patterson AST [Catalytic activity/Vol] 35 U/L Normal 15-37 [facility] Comment on above: Performed By: #### C MP #### [facility] [address] [place] [address] Dr. Risa Patterson Bilirubin [Mass/Vol] 0.4 mg/dL Normal 0.2-1.0 [facility] Comment on above: Performed By: #### C MP #### [facility] [address] [place] [address] Dr. Risa Patterson Calcium [Mass/Vol] 8.9 mg/dL Normal 8.5-10.1 [facility] Comment on above: Performed By: #### C MP #### [facility] [address] [place] [address] Dr. Risa Patterson Chloride [Moles/Vol] 105 mmol/L Normal 98-107 [facility] Comment on above: Performed By: #### C MP #### [facility] [address] [place] [address] Dr. Risa Patterson CO2 [Moles/Vol] 24.5 mmol/L Normal 21.0-32.0 [facility] Comment on above: Performed By: #### C MP #### [facility] [address] [place] [address] Dr. Risa Patterson Creatinine [Mass/Vol] 1.35 mg/dL Critically high 0.70-1.30 [facility] Comment on above: Performed By: #### C MP #### [facility] [address] [place] [address] Dr. Risa Patterson EGFR-AF FAROESE >60 Normal >=60 [facility] Comment on above: Performed By: #### C MP #### [facility] [address] [address] [address] Risa Patterson EGFR-NON AF FAROESE 54 mL/min/1.73m2 Critically low >=60 [facility] Comment on above: Performed By: #### C MP #### [facility] [address] [address] [address] Risa Patterson Globulin (S) [Mass/Vol] 4.3 g/dL Normal [facility] Comment on above: Performed By: #### C MP #### [facility] [address] [address] [address] Risa Patterson Glucose [Mass/Vol] 107 mg/dL Critically high 74-106 T [facility] Comment on above: Performed By: #### C MP #### [facility] [address] [address] [address] Risa Patterson Potassium [Moles/Vol] 4.1 mmol/L Normal 3.5-5.1 [facility] Comment on above: Performed By: #### C MP #### [facility] [address] [place] [address] Dr. Risa Patterson Protein [Mass/Vol] 7.2 g/dL Normal 6.4-8.2 [facility] Comment on above: Performed By: #### C MP #### [facility] [address] [address] [address] Risa Patterson Sodium [Moles/Vol] 141 mmol/L Normal 136-145 [facility] Comment on above: Performed By: #### C MP #### [facility] [address] [address] [address] Risa Patterson Urea nitrogen [Mass/Vol] 19.0 mg/dL Critically high 7.0-18.0 [facility] Comment on above: Performed By: #### C MP #### [facility] [address] [address] [address] Risa Patterson Urea nitrogen/Creatinine [Mass ratio] 14.1 mg/mg Normal [facility] Comment on above: Performed By: #### C MP #### [facility] [address] [address] [address] Risa Patterson SED RATE WESTERGRENon 2022 SED RATE 57 mm/hr Critically high <=20 [facility] Comment on above: Performed By: #### S EDR #### [facility] [address] [address] [address] Risa Patterson ECG COMPLETEon 08-16-2022 Atrial Rate 83 BPM [facility] Calculated P [place] 27 degrees [facility] Calculated R [place] 14 degrees [facility] Calculated T [place] 38 degrees [facility] P-R Interval 158 ms [facility] QRS Duration 86 ms [facility] QT Interval 350 ms [facility] QTC Calculation (Bazett) 411 ms [facility] Ventricular Rate 83 BPM [facility] TILT TABLE TESTon 08-01-2022 TILT TABLE TEST [address] [id number] TILT TABLE TEST PATIENT NAME: ELENA FELIX : 1960 MED REC NO: [id number] ROOM: ACCOUNT NO: [id number] ADMIT DATE: 07/31/2022 PROVIDER: Santos Barrios MD Cardiovascular Diagnostics Department DATE OF PROCEDURE: 07/31/2022 ORDERING PROVIDER: Carlos Krishna APRN-ADULT CARE MANAGER PRIMARY CARE PROVIDER: Silvana Lundberg MD [...] up with their primary care physician and/or flight controls engineer as previously scheduled. STUDY CONCLUSIONS: Abnormal head [...] treatment of this condition. SANTOS BARRIOS MD [facility] Doc#: Unknown [facility]: [facility] AUTO DIFFon 07-04-2022 BASO # 0.1 103/ul Normal 0.0-0.1 [facility] Comment on above: Performed By: #### C MADM, BNP, BMP #### [facility] [address] [address] [address] Risa Patterson Basophils/100 WBC (Bld) 0.8 % Normal 0.2-2.0 [facility] Comment on above: Performed By: #### C MADM, BNP, BMP #### [facility] [address] [address] [address] Risa Patterson EO # 0.3 103/ul Normal 0.0-0.7 [facility] Comment on above: Performed By: #### C MADM, BNP, BMP #### [facility] [address] [place] [address] Dr. Risa Patterson Eosinophils/100 WBC (Bld) 4.0 % Normal 0.9-7.0 [facility] Comment on above: Performed By: #### C MADM, BNP, BMP #### [facility] [address] [place] [address] Dr. Risa Patterson Erythrocyte distribution width (RBC) [Ratio] 15.8 % Critically high 11.0-15.0 [facility] Comment on above: Performed By: #### C MADM, BNP, BMP #### [facility] [address] [place] [address] Dr. Risa Patterson Hematocrit (Bld) [Volume fraction] 37.3 % Critically low 42.0-54.0 [facility] Comment on above: Performed By: #### C MADM, BNP, BMP #### [facility] [address] [place] [address] Dr. Risa Patterson Hemoglobin (Bld) [Mass/Vol] 11.7 g/dL Critically low 14.0-18.0 [facility] Comment on above: Performed By: #### C MADM, BNP, BMP #### [facility] [address] [place] [address] Dr. Risa Patterson IG # 0.04 10e3/ul Critically high 0.00-0.03 [facility] Comment on above: Performed By: #### C MADM, BNP, BMP #### [facility] [address] [place] [address] Dr. Risa Patterson IG % 0.5 % Normal 0.0-0.5 [facility] Comment on above: Performed By: #### C MADM, BNP, BMP #### [facility] [address] [place] [address] Dr. Risa Patterson LYMPH # 1.0 103/ul Critically low 1.2-3.8 [facility] Comment on above: Performed By: #### C MADM, BNP, BMP #### [facility] [address] [place] [address] Dr. Risa Patterson Lymphocytes/100 WBC (Bld) 13.1 % Critically low 20.5-60.0 [facility] Comment on above: Performed By: #### C MADM, BNP, BMP #### [facility] [address] [place] [address] Dr. Risa Patterson MANUAL DIFF REQ NO Normal [facility] Comment on above: Performed By: #### C MADM, BNP, BMP #### [facility] [address] [place] [address] Dr. Risa Patterson MCH (RBC) [Entitic mass] 31.3 pg Normal 25.9-34.0 [facility] Comment on above: Performed By: #### C MADM, BNP, BMP #### [facility] [address] [place] [address] Dr. Risa Patterson MCHC (RBC) [Mass/Vol] 31.4 g/dL Normal 29.9-35.2 [facility] Comment on above: Performed By: #### C MADM, BNP, BMP #### [facility] [address] [place] [address] Dr. Risa Patterson MCV (RBC) [Entitic vol] 99.7 fL Critically high 80.0-94.0 [facility] Comment on above: Performed By: #### C MADM, BNP, BMP #### [facility] [address] [place] [address] Dr. Risa Patterson MONO # 0.9 103/ul Critically high 0.3-0.8 [facility] Comment on above: Performed By: #### C MADM, BNP, BMP #### [facility] [address] [place] [address] Dr. Risa Patterson Monocytes/100 WBC (Bld) 12.3 % Critically high 1.7-12.0 [facility] Comment on above: Performed By: #### C MADM, BNP, BMP #### [facility] [address] [place] [address] Dr. Risa Patterson NEUT # 5.2 103/ul Normal 1.4-6.5 [facility] Comment on above: Performed By: #### C MADM, BNP, BMP #### [facility] [address] [address] [address] Risa Patterson Neutrophils/100 WBC (Bld) 69.3 % Normal 43.0-75.0 [facility] Comment on above: Performed By: #### C MADM, BNP, BMP #### [facility] [address] [address] [address] Risa Patterson Platelet mean volume (Bld) [Entitic vol] 9.3 fL Critically low 9.5-13.5 [facility] Comment on above: Performed By: #### C MADM, BNP, BMP #### [facility] [address] [place] [address] Dr. Risa Patterson PLT 244 103/ul Normal 150-450 [facility] Comment on above: Performed By: #### C MADM, BNP, BMP #### [facility] [address] [address] [address] Risa Patterson RBC 3.74 106/ul Critically low 4.70-6.10 [facility] Comment on above: Performed By: #### C MADM, BNP, BMP #### [facility] [address] [place] [address] Dr. Risa Patterson WBC 7.5 103/ul Normal 4.0-11.0 [facility] Comment on above: Performed By: #### C MADM, BNP, BMP #### [facility] [address] [place] [address] Dr. Risa Patterson ECHOCARDIO M/2D COMPLETEon 0 07-04-2022 ECHOCARDIO M/2D COMPLETE Patient: ELENA FELIX Exam Date: 07/04/2022 : 1960 Gender:M Ordering : NIKKIE TREJO Admission #: [id number] Family : DR BRAD HODGES M.D. Order #: [id number] CLICK HERE TO VIEW EXAM ECHOCARDIOGRAM REPORT [...] 71.33 ml, 71.33 ml Dictated by: Osmany Hernadnez M.D. on 07/04/2022 at 12:03 Approved by: Osmany Hernandez M.D. on 07/04/2022 at 12:06 Normal [facility] PROF 14(COMP METB)on 023 Albumin [Mass/Vol] 2.9 g/dL Critically low 3.4-5.0 [facility] [place] Comment on above: Performed By: #### C MP #### [facility] [address] [place] [address] Dr. Risa Patterson Albumin/Globulin [Mass ratio] 0.8 {ratio} Normal [facility] Comment on above: Performed By: #### C MP #### [facility] [address] [place] [address] Dr. Risa Patterson ALP [Catalytic activity/Vol] 62 U/L Normal 46-116 [facility] Comment on above: Performed By: #### C MP #### [facility] [address] [place] [address] Dr. Risa Patterson ALT [Catalytic activity/Vol] 30 U/L Normal 16-63 [facility] Comment on above: Performed By: #### C MP #### [facility] [address] [place] [address] Dr. Risa Patterson Anion gap [Moles/Vol] 9.3 mmol/L Normal [facility] Comment on above: Performed By: #### C MP #### [facility] [address] [address] [address] Risa Patterson AST [Catalytic activity/Vol] 25 U/L Normal 15-37 [facility] Comment on above: Performed By: #### C MP #### [facility] [address] [address] [address] Risa Patterson Bilirubin [Mass/Vol] 0.4 mg/dL Normal 0.2-1.0 [facility] Comment on above: Performed By: #### C MP #### [facility] [address] [place] [address] Dr. Risa Patterson Calcium [Mass/Vol] 8.8 mg/dL Normal 8.5-10.1 [facility] Comment on above: Performed By: #### C MP #### [facility] [address] [place] [address] Dr. Risa Patterson Chloride [Moles/Vol] 108 mmol/L Critically high 98-107 [facility] Comment on above: Performed By: #### C MP #### [facility] [address] [place] [address] Dr. Risa Patterson CO2 [Moles/Vol] 29.8 mmol/L Normal 21.0-32.0 [facility] Comment on above: Performed By: #### C MP #### [facility] [address] [place] [address] Dr. Risa Patterson Creatinine [Mass/Vol] 1.26 mg/dL Normal 0.70-1.30 [facility] Comment on above: Performed By: #### C MP #### [facility] [address] [place] [address] Dr. Risa Patterson EGFR-AF FAROESE >60 Normal >=60 [facility] Comment on above: Performed By: #### C MP #### [facility] [address] [address] [address] Risa Patterson EGFR-NON AF FAROESE 58 mL/min/1.73m2 Critically low >=60 [facility] Comment on above: Performed By: #### C MP #### [facility] [address] [address] [address] Risa Patterson Globulin (S) [Mass/Vol] 3.6 g/dL Normal [facility] Comment on above: Performed By: #### C MP #### [facility] [address] [address] [address] Risa Patterson Glucose [Mass/Vol] 114 mg/dL Critically high 74-106 [facility] Comment on above: Performed By: #### C MP #### [facility] [address] [address] [address] Risa Patterson Potassium [Moles/Vol] 4.1 mmol/L Normal 3.5-5.1 [facility] Comment on above: Performed By: #### C MP #### [facility] [address] [address] [address] Risa Patterson Protein [Mass/Vol] 6.5 g/dL Normal 6.4-8.2 [facility] Comment on above: Performed By: #### C MP #### [facility] [address] [address] [address] Risa Patterson Sodium [Moles/Vol] 143 mmol/L Normal 136-145 [facility] Comment on above: Performed By: #### C MP #### [facility] [address] [address] [address] Risa Patterson Urea nitrogen [Mass/Vol] 20.0 mg/dL Critically high 7.0-18.0 [facility] Comment on above: Performed By: #### C MP #### [facility] [address] [address] [address] Risa Patterson Urea nitrogen/Creatinine [Mass ratio] 15.9 mg/mg Normal [facility] Comment on above: Performed By: #### C MP #### [facility] [address] [place] [address] Dr. Risa Patterson SED RATE WESTERGRENon 2022 SED RATE 26 mm/hr Critically high <=20 [facility] Comment on above: Performed By: #### C MADM, BNP, BMP #### [facility] [address] [place] [address] Dr. Risa Patterson BNPon 06-26-2022 Natriuretic peptide B (Bld) [Mass/Vol] 82.0 pg/mL Normal <=900.0 [facility] Comment on above: Performed By: #### C MREP #### [facility] [address] [place] [address] Dr. Risa Patterson CBC AUTO DIFFon 06-26-2022 BASO # 0.1 103/ul Normal 0.0-0.1 [facility] Comment on above: Performed By: #### C MREP #### [facility] [address] [place] [address] Dr. Risa Patterson Basophils/100 WBC (Bld) 0.7 % Normal 0.2-2.0 [facility] Comment on above: Performed By: #### C MREP #### [facility] [address] [place] [address] Dr. Risa Patterson EO # 0.4 103/ul Normal 0.0-0.7 [facility] Comment on above: Performed By: #### C MREP #### [facility] [address] [place] [address] Dr. Risa Patterson Eosinophils/100 WBC (Bld) 3.9 % Normal 0.9-7.0 [facility] Comment on above: Performed By: #### C MREP #### [facility] [address] [place] [address] Dr. Risa Patterson Erythrocyte distribution width (RBC) [Ratio] 15.0 % Normal 11.0-15.0 [facility] Comment on above: Performed By: #### C MREP #### [facility] [address] [place] [address] Dr. Risa Patterson Hematocrit (Bld) [Volume fraction] 39.1 % Critically low 42.0-54.0 [facility] Comment on above: Performed By: #### C MREP #### [facility] [address] [place] [address] Dr. Risa Patterson Hemoglobin (Bld) [Mass/Vol] 12.3 g/dL Critically low 14.0-18.0 [facility] Comment on above: Performed By: #### C MREP #### [facility] [address] [place] [address] Dr. Risa Patterson IG # 0.07 10e3/ul Critically high 0.00-0.03 [facility] Comment on above: Performed By: #### C MREP #### [facility] [address] [place] [address] Dr. Risa Patterson IG % 0.8 % Critically high 0.0-0.5 [facility] Comment on above: Performed By: #### C MREP #### [facility] [address] [place] [address] Dr. Risa Patterson LYMPH # 1.0 103/ul Critically low 1.2-3.8 [facility] Comment on above: Performed By: #### C MREP #### [facility] [address] [place] [address] Dr. Risa Patterson Lymphocytes/100 WBC (Bld) 11.3 % Critically low 20.5-60.0 [facility] Comment on above: Performed By: #### C MREP #### [facility] [address] [place] [address] Dr. Risa Patterson MANUAL DIFF REQ NO Normal [facility] Comment on above: Performed By: #### C MREP #### [facility] [address] [place] [address] Dr. Risa Patterson MCH (RBC) [Entitic mass] 30.9 pg Normal 25.9-34.0 [facility] Comment on above: Performed By: #### C MREP #### [facility] [address] [place] [address] Dr. Risa Patterson MCHC (RBC) [Mass/Vol] 31.5 g/dL Normal 29.9-35.2 [facility] Comment on above: Performed By: #### C MREP #### [facility] [address] [place] [address] Dr. Risa Patterson MCV (RBC) [Entitic vol] 98.2 fL Critically high 80.0-94.0 [facility] Comment on above: Performed By: #### C MREP #### [facility] [address] [place] [address] Dr. Risa Patterson MONO # 1.1 103/ul Critically high 0.3-0.8 [facility] Comment on above: Performed By: #### C MREP #### [facility] [address] [place] [address] Dr. Risa Patterson Monocytes/100 WBC (Bld) 12.1 % Critically high 1.7-12.0 [facility] Comment on above: Performed By: #### C MREP #### [facility] [address] [place] [address] Dr. Risa Patterson NEUT # 6.4 103/ul Normal 1.4-6.5 [facility] Comment on above: Performed By: #### C MREP #### [facility] [address] [place] [address] Dr. Risa Patterson Neutrophils/100 WBC (Bld) 71.2 % Normal 43.0-75.0 [facility] Comment on above: Performed By: #### C MREP #### [facility] [address] [place] [address] Dr. Risa Patterson Platelet mean volume (Bld) [Entitic vol] 9.2 fL Critically low 9.5-13.5 [facility] Comment on above: Performed By: #### C MREP #### [facility] [address] [place] [address] Dr. Risa Patterson PLT 285 103/ul Normal 150-450 [facility] Comment on above: Performed By: #### C MREP #### [facility] [address] [place] [address] Dr. Risa Patterson RBC 3.98 106/ul Critically low 4.70-6.10 [facility] Comment on above: Performed By: #### C MREP #### [facility] [address] [place] [address] Dr. Risa Patterson WBC 9.0 103/ul Normal 4.0-11.0 [facility] Comment on above: Performed By: #### C MREP #### [facility] [address] [place] [address] Dr. Risa Patterson PROF CHEM 8 (BAS METB)on Anion gap [Moles/Vol] 12.3 mmol/L Normal [facility] [place] Comment on above: Performed By: #### C MREP #### [facility] [address] [place] [address] Dr. Risa Patterson Calcium [Mass/Vol] 9.3 mg/dL Normal 8.5-10.1 [facility] Comment on above: Performed By: #### C MREP #### [facility] [address] [place] [address] Dr. Risa Patterson Chloride [Moles/Vol] 106 mmol/L Normal 98-107 [facility] Comment on above: Performed By: #### C MREP #### [facility] [address] [place] [address] Dr. Risa Patterson CO2 [Moles/Vol] 29.2 mmol/L Normal 21.0-32.0 [facility] Comment on above: Performed By: #### C MREP #### [facility] [address] [place] [address] Dr. Risa Patterson Creatinine [Mass/Vol] 1.40 mg/dL Critically high 0.70-1.30 [facility] Comment on above: Performed By: #### C MREP #### [facility] [address] [place] [address] Dr. Risa Patterson EGFR-AF FAROESE >60 Normal >=60 [facility] Comment on above: Performed By: #### C MREP #### [facility] [address] [place] [address] Dr. Risa Patterson EGFR-NON AF FAROESE 52 mL/min/1.73m2 Critically low >=60 [facility] Comment on above: Performed By: #### C MREP #### [facility] [address] [place] [address] Dr. Risa Patterson Glucose [Mass/Vol] 107 mg/dL Critically high 74-106 T [facility] Comment on above: Performed By: #### C MREP #### [facility] [address] [place] [address] Dr. Risa Patterson Potassium [Moles/Vol] 4.5 mmol/L Normal 3.5-5.1 [facility] Comment on above: Performed By: #### C MREP #### [facility] [address] [place] [address] Dr. Risa Patterson Sodium [Moles/Vol] 143 mmol/L Normal 136-145 [facility] Comment on above: Performed By: #### C MREP #### [facility] [address] [place] [address] Dr. Risa Patterson Urea nitrogen [Mass/Vol] 20.0 mg/dL Critically high 7.0-18.0 [facility] Comment on above: Performed By: #### C MREP #### [facility] [address] [place] [address] Dr. Risa Patterson Urea nitrogen/Creatinine [Mass ratio] 14.3 mg/mg Normal [facility] Comment on above: Performed By: #### C MREP #### [facility] [address] [place] [address] CHEST HI RESOLUTIONon [...] ASHER SOLANO Date: 2022-04-25 11:06 Normal [facility] HEMOGLOBINon 04-10-2022 Hemoglobin (Bld) [Mass/Vol] 11.9 g/dL Critically low 14.0-18.0 [facility] Comment on above: Performed By: #### C MADM, BNP, BMP #### [facility] [address] [place] [address] Dr. Risa Patterson CBC AUTO DIFFon 04-03-2022 BASO # 0.0 103/ul Normal 0.0-0.1 [facility] Comment on above: Performed By: #### C MADM, BNP, BMP #### [facility] [address] [place] [address] Dr. Risa Patterson Basophils/100 WBC (Bld) 0.5 % Normal 0.2-2.0 [facility] Comment on above: Performed By: #### C MADM, BNP, BMP #### [facility] [address] [place] [address] Dr. Risa Patterson EO # 0.3 103/ul Normal 0.0-0.7 [facility] Comment on above: Performed By: #### C MADM, BNP, BMP #### [facility] [address] [place] [address] Dr. Risa Patterson Eosinophils/100 WBC (Bld) 5.3 % Normal 0.9-7.0 [facility] Comment on above: Performed By: #### C MADM, BNP, BMP #### [facility] [address] [place] [address] Dr. Risa Patterson Erythrocyte distribution width (RBC) [Ratio] 16.3 % Critically high 11.0-15.0 [facility] Comment on above: Performed By: #### C MADM, BNP, BMP #### [facility] [address] [place] [address] Dr. Risa Patterson Hematocrit (Bld) [Volume fraction] 38.4 % Critically low 42.0-54.0 [facility] Comment on above: Performed By: #### C MADM, BNP, BMP #### [facility] [address] [place] [address] Dr. Risa Patterson Hemoglobin (Bld) [Mass/Vol] 12.0 g/dL Critically low 14.0-18.0 [facility] Comment on above: Performed By: #### C MADM, BNP, BMP #### [facility] [address] [place] [address] Dr. Risa Patterson IG # 0.04 10e3/ul Critically high 0.00-0.03 [facility] Comment on above: Performed By: #### C MADM, BNP, BMP #### [facility] [address] [place] [address] Dr. Risa Patterson IG % 0.7 % Critically high 0.0-0.5 [facility] Comment on above: Performed By: #### C MADM, BNP, BMP #### [facility] [address] [place] [address] Dr. Risa Patterson LYMPH # 1.1 103/ul Critically low 1.2-3.8 [facility] Comment on above: Performed By: #### C MADM, BNP, BMP #### [facility] [address] [place] [address] Dr. Risa Patterson Lymphocytes/100 WBC (Bld) 18.7 % Critically low 20.5-60.0 [facility] Comment on above: Performed By: #### C MADM, BNP, BMP #### [facility] [address] [place] [address] Dr. Risa Patterson MANUAL DIFF REQ NO Normal [facility] Comment on above: Performed By: #### C MADM, BNP, BMP #### [facility] [address] [place] [address] Dr. Risa Patterson MCH (RBC) [Entitic mass] 31.3 pg Normal 25.9-34.0 [facility] Comment on above: Performed By: #### C MADM, BNP, BMP #### [facility] [address] [place] [address] Dr. Risa Patterson MCHC (RBC) [Mass/Vol] 31.3 g/dL Normal 29.9-35.2 [facility] Comment on above: Performed By: #### C MADM, BNP, BMP #### [facility] [address] [place] [address] Dr. Risa Patterson MCV (RBC) [Entitic vol] 100.0 fL Critically high 80.0-94.0 [facility] Comment on above: Performed By: #### C MADM, BNP, BMP #### [facility] [address] [place] [address] Dr. Risa Patterson MONO # 0.8 103/ul Normal 0.3-0.8 [facility] Comment on above: Performed By: #### C MADM, BNP, BMP #### [facility] [address] [place] [address] Dr. Risa Patterson Monocytes/100 WBC (Bld) 13.7 % Critically high 1.7-12.0 [facility] Comment on above: Performed By: #### C MADM, BNP, BMP #### [facility] [address] [place] [address] Dr. Risa Patterson NEUT # 3.7 103/ul Normal 1.4-6.5 [facility] Comment on above: Performed By: #### C MADM, BNP, BMP #### [facility] [address] [place] [address] Dr. Risa Patterson Neutrophils/100 WBC (Bld) 61.1 % Normal 43.0-75.0 [facility] Comment on above: Performed By: #### C MADM, BNP, BMP #### [facility] [address] [place] [address] Dr. Risa Patterson Platelet mean volume (Bld) [Entitic vol] 9.5 fL Normal 9.5-13.5 [facility] Comment on above: Performed By: #### C MADM, BNP, BMP #### [facility] [address] [place] [address] Dr. Risa Patterson PLT 218 103/ul Normal 150-450 [facility] Comment on above: Performed By: #### C MADM, BNP, BMP #### [facility] [address] [place] [address] Dr. Risa Patterson RBC 3.84 106/ul Critically low 4.70-6.10 [facility] Comment on above: Performed By: #### C MADM, BNP, BMP #### [facility] [address] [place] [address] Dr. Risa Patterson WBC 6.0 103/ul Normal 4.0-11.0 [facility] Comment on above: Performed By: #### C MADM, BNP, BMP #### [facility] [address] [place] [address] Dr. Risa Patterson PROF 14(COMP METB)on 022 Albumin [Mass/Vol] 2.9 g/dL Critically low 3.4-5.0 [facility] [place] Comment on above: Performed By: #### C MADM, BNP, BMP #### [facility] [address] [place] [address] Dr. Risa Patterson Albumin/Globulin [Mass ratio] 0.7 {ratio} Normal [facility] Comment on above: Performed By: #### C MADM, BNP, BMP #### [facility] [address] [place] [address] Dr. Risa Patterson ALP [Catalytic activity/Vol] 66 U/L Normal 46-116 [facility] Comment on above: Performed By: #### C MADM, BNP, BMP #### [facility] [address] [place] [address] Dr. Risa Patterson ALT [Catalytic activity/Vol] 33 U/L Normal 16-63 [facility] Comment on above: Performed By: #### C MADM, BNP, BMP #### [facility] [address] [address] [address] Risa Patterson Anion gap [Moles/Vol] 10.7 mmol/L Normal [facility] Comment on above: Performed By: #### C MADM, BNP, BMP #### [facility] [address] [address] [address] Risa Patterson AST [Catalytic activity/Vol] 24 U/L Normal 15-37 [facility] Comment on above: Performed By: #### C MADM, BNP, BMP #### [facility] [address] [place] [address] Dr. Risa Patterson Bilirubin [Mass/Vol] 0.3 mg/dL Normal 0.2-1.0 [facility] Comment on above: Performed By: #### C MADM, BNP, BMP #### [facility] [address] [place] [address] Dr. Risa Patterson Calcium [Mass/Vol] 9.0 mg/dL Normal 8.5-10.1 [facility] Comment on above: Performed By: #### C MADM, BNP, BMP #### [facility] [address] [place] [address] Dr. Risa Patterson Chloride [Moles/Vol] 106 mmol/L Normal 98-107 [facility] Comment on above: Performed By: #### C MADM, BNP, BMP #### [facility] [address] [place] [address] Dr. Risa Patterson CO2 [Moles/Vol] 31.7 mmol/L Normal 21.0-32.0 [facility] Comment on above: Performed By: #### C MADM, BNP, BMP #### [facility] [address] [place] [address] Dr. Risa Patterson Creatinine [Mass/Vol] 1.18 mg/dL Normal 0.70-1.30 [facility] Comment on above: Performed By: #### C MADM, BNP, BMP #### [facility] [address] [place] [address] Dr. Risa Patterson EGFR-AF FAROESE >60 Normal >=60 [facility] Comment on above: Performed By: #### C MADM, BNP, BMP #### [facility] [address] [place] [address] Dr. Risa Patterson EGFR-NON AF FAROESE >60 Normal >=60 [facility] Comment on above: Performed By: #### C MADM, BNP, BMP #### [facility] [address] [place] [address] Dr. Risa Patterson Globulin (S) [Mass/Vol] 3.9 g/dL Normal [facility] Comment on above: Performed By: #### C MADM, BNP, BMP #### [facility] [address] [place] [address] Dr. Risa Patterson Glucose [Mass/Vol] 99 mg/dL Normal 74-106 [facility] Comment on above: Performed By: #### C MADM, BNP, BMP #### [facility] [address] [place] [address] Dr. Risa Patterson Potassium [Moles/Vol] 4.4 mmol/L Normal 3.5-5.1 [facility] Comment on above: Performed By: #### C MADM, BNP, BMP #### [facility] [address] [place] [address] Dr. Risa Patterson Protein [Mass/Vol] 6.8 g/dL Normal 6.4-8.2 [facility] Comment on above: Performed By: #### C MADM, BNP, BMP #### [facility] [address] [place] [address] Dr. Risa Patterson Sodium [Moles/Vol] 144 mmol/L Normal 136-145 [facility] Comment on above: Performed By: #### C MADM, BNP, BMP #### [facility] [address] [place] [address] Dr. Risa Patterson Urea nitrogen [Mass/Vol] 17.0 mg/dL Normal 7.0-18.0 [facility] Comment on above: Performed By: #### C MADM, BNP, BMP #### [facility] [address] [place] [address] Dr. Risa Patterson Urea nitrogen/Creatinine [Mass ratio] 14.4 mg/mg Normal [facility] Comment on above: Performed By: #### C MADM, BNP, BMP #### [facility] [address] [place] [address] Dr. Risa Patterson SED RATE WESTERGRENon 2021 SED RATE 66 mm/hr Critically high <=20 [facility] Comment on above: Performed By: #### C MADM, BNP, BMP #### [facility] [address] [place] [address] Dr. Risa Patterson CBC AUTO DIFFon 01-02-2022 BASO # 0.1 103/ul Normal 0.0-0.1 [facility] Comment on above: Performed By: #### C MADM, BNP, BMP #### [facility] [address] [place] [address] Dr. Risa Patterson Basophils/100 WBC (Bld) 1.1 % Normal 0.2-2.0 [facility] Comment on above: Performed By: #### C MADM, BNP, BMP #### [facility] [address] [place] [address] Dr. Risa Patterson EO # 0.3 103/ul Normal 0.0-0.7 [facility] Comment on above: Performed By: #### C MADM, BNP, BMP #### [facility] [address] [place] [address] Dr. Risa Patterson Eosinophils/100 WBC (Bld) 7.1 % Critically high 0.9-7.0 [facility] Comment on above: Performed By: #### C MADM, BNP, BMP #### [facility] [address] [place] [address] Dr. Risa Patterson Erythrocyte distribution width (RBC) [Ratio] 17.2 % Critically high 11.0-15.0 [facility] Comment on above: Performed By: #### C MADM, BNP, BMP #### [facility] [address] [place] [address] Dr. Risa Patterson Hematocrit (Bld) [Volume fraction] 34.0 % Critically low 42.0-54.0 [facility] Comment on above: Performed By: #### C MADM, BNP, BMP #### [facility] [address] [place] [address] Dr. Risa Patterson Hemoglobin (Bld) [Mass/Vol] 10.6 g/dL Critically low 14.0-18.0 [facility] Comment on above: Performed By: #### C MADM, BNP, BMP #### [facility] [address] [place] [address] Dr. Risa Patterson IG # 0.02 10e3/ul Normal 0.00-0.03 [facility] Comment on above: Performed By: #### C MADM, BNP, BMP #### [facility] [address] [place] [address] Dr. Risa Patterson IG % 0.4 % Normal 0.0-0.5 [facility] Comment on above: Performed By: #### C MADM, BNP, BMP #### [facility] [address] [place] [address] Dr. Risa Patterson LYMPH # 1.0 103/ul Critically low 1.2-3.8 [facility] Comment on above: Performed By: #### C MADM, BNP, BMP #### [facility] [address] [place] [address] Dr. Risa Patterson Lymphocytes/100 WBC (Bld) 22.9 % Normal 20.5-60.0 [facility] Comment on above: Performed By: #### C MADM, BNP, BMP #### [facility] [address] [place] [address] Dr. Risa Patterson MANUAL DIFF REQ NO Normal [facility] Comment on above: Performed By: #### C MADM, BNP, BMP #### [facility] [address] [place] [address] Dr. Risa Patterson MCH (RBC) [Entitic mass] 31.2 pg Normal 25.9-34.0 [facility] Comment on above: Performed By: #### C MADM, BNP, BMP #### [facility] [address] [place] [address] Dr. Risa Patterson MCHC (RBC) [Mass/Vol] 31.2 g/dL Normal 29.9-35.2 [facility] Comment on above: Performed By: #### C MADM, BNP, BMP #### [facility] [address] [place] [address] Dr. Risa Patterson MCV (RBC) [Entitic vol] 100.0 fL Critically high 80.0-94.0 [facility] Comment on above: Performed By: #### C MADM, BNP, BMP #### [facility] [address] [place] [address] Dr. Risa Patterson MONO # 0.8 103/ul Normal 0.3-0.8 [facility] Comment on above: Performed By: #### C MADM, BNP, BMP #### [facility] [address] [place] [address] Dr. Risa Patterson Monocytes/100 WBC (Bld) 18.7 % Critically high 1.7-12.0 [facility] Comment on above: Performed By: #### C MADM, BNP, BMP #### [facility] [address] [place] [address] Dr. Risa Patterson NEUT # 2.2 103/ul Normal 1.4-6.5 [facility] Comment on above: Performed By: #### C MADM, BNP, BMP #### [facility] [address] [place] [address] Dr. Risa Patterson Neutrophils/100 WBC (Bld) 49.8 % Normal 43.0-75.0 [facility] Comment on above: Performed By: #### C MADM, BNP, BMP #### [facility] [address] [place] [address] Dr. Risa Patterson Platelet mean volume (Bld) [Entitic vol] 10.0 fL Normal 9.5-13.5 [facility] Comment on above: Performed By: #### C MADM, BNP, BMP #### [facility] [address] [place] [address] Dr. Risa Patterson PLT 232 103/ul Normal 150-450 [facility] Comment on above: Performed By: #### C MADM, BNP, BMP #### [facility] [address] [address] [address] Risa Patterson RBC 3.40 106/ul Critically low 4.70-6.10 [facility] Comment on above: Performed By: #### C MADM, BNP, BMP #### [facility] [address] [address] [address] Risa Patterson WBC 4.5 103/ul Normal 4.0-11.0 [facility] Comment on above: Performed By: #### C MADM, BNP, BMP #### [facility] [address] [place] [address] Dr. Risa Patterson PROF 14(COMP METB)on 022 Albumin [Mass/Vol] 2.8 g/dL Critically low 3.4-5.0 [facility] Comment on above: Performed By: #### C MREP #### [facility] [address] [place] [address] Dr. Risa Patterson Albumin/Globulin [Mass ratio] 0.8 {ratio} Normal [facility] Comment on above: Performed By: #### C MREP #### [facility] [address] [place] [address] Dr. Risa Patterson ALP [Catalytic activity/Vol] 63 U/L Normal 46-116 [facility] Comment on above: Performed By: #### C MREP #### [facility] [address] [place] [address] Dr. Risa Patterson ALT [Catalytic activity/Vol] 29 U/L Normal 16-63 [facility] Comment on above: Performed By: #### C MREP #### [facility] [address] [place] [address] Dr. Risa Patterson Anion gap [Moles/Vol] 10.7 mmol/L Normal [facility] Comment on above: Performed By: #### C MREP #### [facility] [address] [place] [address] Dr. Risa Patterson AST [Catalytic activity/Vol] 23 U/L Normal 15-37 [facility] Comment on above: Performed By: #### C MREP #### [facility] [address] [place] [address] Dr. Risa Patterson Bilirubin [Mass/Vol] 0.2 mg/dL Normal 0.2-1.0 [facility] Comment on above: Performed By: #### C MREP #### [facility] [address] [place] [address] Dr. Risa Patterson Calcium [Mass/Vol] 8.5 mg/dL Normal 8.5-10.1 [facility] Comment on above: Performed By: #### C MREP #### [facility] [address] [place] [address] Dr. Risa Patterson Chloride [Moles/Vol] 109 mmol/L Critically high 98-107 [facility] Comment on above: Performed By: #### C MREP #### [facility] [address] [place] [address] Dr. Risa Patterson CO2 [Moles/Vol] 28.7 mmol/L Normal 21.0-32.0 [facility] Comment on above: Performed By: #### C MREP #### [facility] [address] [place] [address] Dr. Risa Patterson Creatinine [Mass/Vol] 1.05 mg/dL Normal 0.70-1.30 [facility] Comment on above: Performed By: #### C MREP #### [facility] [address] [place] [address] Dr. Risa Patterson EGFR-AF FAROESE >60 Normal >=60 [facility] Comment on above: Performed By: #### C MREP #### [facility] [address] [place] [address] Dr. Risa Patterson EGFR-NON AF FAROESE >60 Normal >=60 [facility] Comment on above: Performed By: #### C MREP #### [facility] [address] [place] [address] Dr. Risa Patterson Globulin (S) [Mass/Vol] 3.5 g/dL Normal [facility] Comment on above: Performed By: #### C MREP #### [facility] [address] [address] [address] Risa Patterson Glucose [Mass/Vol] 82 mg/dL Normal 74-106 [facility] Comment on above: Performed By: #### C MREP #### [facility] [address] [address] [address] Risa Patterson Potassium [Moles/Vol] 4.5 mmol/L Normal 3.5-5.1 [facility] Comment on above: Performed By: #### C MREP #### [facility] [address] [address] [address] Risa Patterson Protein [Mass/Vol] 6.3 g/dL Critically low 6.4-8.2 [facility] Comment on above: Performed By: #### C MREP #### [facility] [address] [address] [address] Risa Patterson Sodium [Moles/Vol] 144 mmol/L Normal 136-145 [facility] Comment on above: Performed By: #### C MREP #### [facility] [address] [address] [address] Risa Patterson Urea nitrogen [Mass/Vol] 16.0 mg/dL Normal 7.0-18.0 [facility] Comment on above: Performed By: #### C MREP #### [facility] [address] [address] [address] Risa Patterson Urea nitrogen/Creatinine [Mass ratio] 15.2 mg/mg Normal [facility] Comment on above: Performed By: #### C MREP #### [facility] [address] [address] [address] Risa Patterson [facility] mm/hr Critically high <=20 [facility] Comment on above: Performed By: #### C MADM, BNP, BMP #### [facility] [address] [address] [address] Risa Patterson CBC W Auto Differential pane l (Bld)on 12-28-2021 Abs Immature Gran <0.10 k/uL [facility] Basophils (Bld) [#/Vol] 0.04 10*3/uL <0.11 k/uL [facility] Basophils/100 WBC (Bld) 0.7 % [facility] Differential cell count method Nom (Bld) Auto [facility] Eosinophils (Bld) [#/Vol] 0.30 10*3/uL <0.46 k/uL [facility] Eosinophils/100 WBC (Bld) 5.5 % [facility] Erythrocyte distribution width (RBC) [Ratio] 18.1 % High 11.5 - 15.0 % [facility] Hematocrit (Bld) [Volume fraction] 34.6 % Low 39.0 - 51.0 % [facility] Hemoglobin (Bld) [Mass/Vol] 10.9 g/dL Low 13.0 - 17.0 g/dL [facility] Immature Gran % 0.4 % [facility] Lymphocytes (Bld) [#/Vol] 0.95 10*3/uL Low 1.00 - 4.00 k/uL [facility] Lymphocytes/100 WBC (Bld) 17.4 % [facility] MCH (RBC) [Entitic mass] 31.3 pg 26.0 - 34.0 pg [facility] MCHC (RBC) [Mass/Vol] 31.5 g/dL 30.5 - 36.0 g/dL [facility] MCV (RBC) [Entitic vol] 99.4 fL 80.0 - 100.0 fL [facility] Monocytes (Bld) [#/Vol] 0.69 10*3/uL <0.87 k/uL [facility] Monocytes/100 WBC (Bld) 12.7 % [facility] Neutrophils (Bld) [#/Vol] 3.45 10*3/uL 1.45 - 7.50 k/uL [facility] Neutrophils/100 WBC (Bld) 63.3 % [facility] Nucleated RBC (Bld) [#/Vol] <0.01 k/uL [facility] Nucleated RBC/100 WBC (Bld) [Ratio] 0.0 /100 WBC [facility] Platelet mean volume (Bld) [Entitic vol] 10.0 fL 9.0 - 12.7 fL [facility] Platelets (Bld) [#/Vol] 230 10*3/uL 150 - 400 k/uL [facility] RBC (Bld) [#/Vol] 3.48 10*6/uL Low 4.20 - 6.00 m/uL [facility] WBC (Bld) [#/Vol] 5.45 10*3/uL 3.70 - 11.00 k/uL [facility] Comprehensive metabolic 2000 panelon 12-28-2021 Albumin [Mass/Vol] 3.5 g/dL Low 3.9 - 4.9 g/dL [facility] ALP [Catalytic activity/Vol] 69 U/L 38 - 113 U/L [facility] ALT [Catalytic activity/Vol] 23 U/L 10 - 54 U/L [facility] Anion gap [Moles/Vol] 6 mmol/L Low 9 - 18 mmol/L [facility] AST [Catalytic activity/Vol] 27 U/L 14 - 40 U/L [facility] Bilirubin [Mass/Vol] 0.4 mg/dL 0.2 - 1 .3 mg/dL [facility] Calcium [Mass/Vol] 9.2 mg/dL 8.5 - 10. 2 mg/dL [facility] Chloride [Moles/Vol] 110 mmol/L High 97 - 10 5 mmol/L [facility] CO2 [Moles/Vol] 27 mmol/L 22 - 30 mmol/L [facility] Creatinine [Mass/Vol] 1.05 mg/dL 0.73 - 1.22 mg/dL [facility] Estimated Glomerular Filtration Rate 81 mL/min/1.73m >=60 mL/min/1.7 3m [facility] Glucose [Mass/Vol] 109 mg/dL High 74 - 99 mg/dL [facility] Potassium [Moles/Vol] 3.9 mmol/L 3.7 - 5.1 mmol/L [facility] Protein [Mass/Vol] 6.0 g/dL Low 6.3 - 8.0 g/dL [facility] Sodium [Moles/Vol] 143 mmol/L 136 - 144 mmol/L [facility] Urea nitrogen [Mass/Vol] 17 mg/dL 9 - 24 mg/dL [facility] LD LACTATE DEHYDROon 022 LDH [Catalytic activity/Vol] 270 U/L High 135 - 225 U/L [facility] CBC AUTO DIFFon 12-15-2021 BASO # 0.0 103/ul Normal 0.0-0.1 [facility] Comment on above: Performed By: #### C BC #### [facility] [address] [place] [address] Dr. Risa Patterson Basophils/100 WBC (Bld) 0.7 % Normal 0.2-2.0 [facility] Comment on above: Performed By: #### C BC #### [facility] [address] [place] [address] Dr. Risa Patterson EO # 0.2 103/ul Normal 0.0-0.7 [facility] Comment on above: Performed By: #### C BC #### [facility] [address] [place] [address] Dr. Risa Patterson Eosinophils/100 WBC (Bld) 3.6 % Normal 0.9-7.0 [facility] Comment on above: Performed By: #### C BC #### [facility] [address] [place] [address] Dr. Risa Patterson Erythrocyte distribution width (RBC) [Ratio] 17.4 % Critically high 11.0-15.0 [facility] Comment on above: Performed By: #### C BC #### [facility] [address] [place] [address] Dr. Risa Patterson Hematocrit (Bld) [Volume fraction] 36.2 % Critically low 42.0-54.0 [facility] Comment on above: Performed By: #### C BC #### [facility] [address] [place] [address] Dr. Risa Patterson Hemoglobin (Bld) [Mass/Vol] 11.3 g/dL Critically low 14.0-18.0 [facility] Comment on above: Performed By: #### C BC #### [facility] [address] [place] [address] Dr. Risa Patterson IG # 0.02 10e3/ul Normal 0.00-0.03 [facility] Comment on above: Performed By: #### C BC #### [facility] [address] [place] [address] Dr. Risa Pattesron IG % 0.5 % Normal 0.0-0.5 [facility] Comment on above: Performed By: #### C BC #### [facility] [address] [place] [address] Dr. Rsia Patterson LYMPH # 0.9 103/ul Critically low 1.2-3.8 [facility] Comment on above: Performed By: #### C BC #### [facility] [address] [place] [address] Dr. Risa Patterson Lymphocytes/100 WBC (Bld) 20.0 % Critically low 20.5-60.0 [facility] Comment on above: Performed By: #### C BC #### [facility] [address] [place] [address] Dr. Risa Patterson MANUAL DIFF REQ NO Normal [facility] Comment on above: Performed By: #### C BC #### [facility] [address] [place] [address] Dr. Risa Patterson MCH (RBC) [Entitic mass] 30.9 pg Normal 25.9-34.0 [facility] Comment on above: Performed By: #### C BC #### [facility] [address] [place] [address] Dr. Risa Patterson MCHC (RBC) [Mass/Vol] 31.2 g/dL Normal 29.9-35.2 [facility] Comment on above: Performed By: #### C BC #### [facility] [address] [place] [address] Dr. Risa Patterson MCV (RBC) [Entitic vol] 98.9 fL Critically high 80.0-94.0 [facility] Comment on above: Performed By: #### C BC #### [facility] [address] [place] [address] Dr. Risa Patterson MONO # 0.2 103/ul Critically low 0.3-0.8 [facility] Comment on above: Performed By: #### C BC #### [facility] [address] [place] [address] Dr. Risa Patterson Monocytes/100 WBC (Bld) 5.4 % Normal 1.7-12.0 [facility] Comment on above: Performed By: #### C BC #### [facility] [address] [place] [address] Dr. Risa Patterson NEUT # 3.1 103/ul Normal 1.4-6.5 [facility] Comment on above: Performed By: #### C BC #### [facility] [address] [place] [address] Dr. Risa Patterson Neutrophils/100 WBC (Bld) 69.8 % Normal 43.0-75.0 [facility] Comment on above: Performed By: #### C BC #### [facility] [address] [place] [address] Dr. Risa Patterson Platelet mean volume (Bld) [Entitic vol] 9.7 fL Normal 9.5-13.5 [facility] Comment on above: Performed By: #### C BC #### [facility] [address] [place] [address] Dr. Risa Patterson PLT 235 103/ul Normal 150-450 [facility] Comment on above: Performed By: #### C BC #### [facility] [address] [place] [address] Dr. Risa Patterson RBC 3.66 106/ul Critically low 4.70-6.10 [facility] Comment on above: Performed By: #### C BC #### [facility] [address] [place] [address] Dr. Risa Patterson WBC 4.4 103/ul Normal 4.0-11.0 [facility] Comment on above: Performed By: #### C BC #### [facility] [address] [place] [address] Dr. Risa Patterson FERRITINon 12-15-2021 Ferritin [Mass/Vol] 285.0 ng/mL Normal 26.0-388.0 [facility] Comment on above: Performed By: #### F ERR, [id number] #### [facility] [address] [place] [address] Dr. Risa Patterson VITAMIN B12on 12-15-2021 Cobalamin (Vitamin B12) [Mass/Vol] 460.0 pg/mL Normal 193.0-986. 0 [facility] Comment on above: Performed By: #### F ERR, VITB12 #### [facility] [address] [place] [address] Dr. Risa Patterson CBC AUTO DIFFon 11-29-2021 BASO # 0.0 103/ul Normal 0.0-0.1 [facility] Comment on above: Performed By: #### C MREP #### [facility] [address] [place] [address] Dr. Risa Patterson Basophils/100 WBC (Bld) 0.7 % Normal 0.2-2.0 [facility] Comment on above: Performed By: #### C MREP #### [facility] [address] [place] [address] Dr. Risa Patterson EO # 0.3 103/ul Normal 0.0-0.7 [facility] Comment on above: Performed By: #### C MREP #### [facility] [address] [place] [address] Dr. Risa Patterson Eosinophils/100 WBC (Bld) 6.9 % Normal 0.9-7.0 [facility] Comment on above: Performed By: #### C MREP #### [facility] [address] [place] [address] Dr. Risa Patterson Erythrocyte distribution width (RBC) [Ratio] 17.0 % Critically high 11.0-15.0 [facility] Comment on above: Performed By: #### C MREP #### [facility] [address] [place] [address] Dr. Risa Patterson Hematocrit (Bld) [Volume fraction] 35.4 % Critically low 42.0-54.0 [facility] Comment on above: Performed By: #### C MREP #### [facility] [address] [place] [address] Dr. Risa Patterson Hemoglobin (Bld) [Mass/Vol] 11.0 g/dL Critically low 14.0-18.0 [facility] Comment on above: Performed By: #### C MREP #### [facility] [address] [place] [address] Dr. Risa Patterson IG # 0.01 10e3/ul Normal 0.00-0.03 [facility] Comment on above: Performed By: #### C MREP #### [facility] [address] [place] [address] Dr. Risa Patterson IG % 0.2 % Normal 0.0-0.5 [facility] Comment on above: Performed By: #### C MREP #### [facility] [address] [place] [address] Dr. Risa Patterson LYMPH # 0.9 103/ul Critically low 1.2-3.8 [facility] Comment on above: Performed By: #### C MREP #### [facility] [address] [place] [address] Dr. Risa Patterson Lymphocytes/100 WBC (Bld) 19.5 % Critically low 20.5-60.0 [facility] Comment on above: Performed By: #### C MREP #### [facility] [address] [place] [address] Dr. Rias Patterson MANUAL DIFF REQ NO Normal [facility] Comment on above: Performed By: #### C MREP #### [facility] [address] [place] [address] Dr. Risa Patterson MCH (RBC) [Entitic mass] 30.5 pg Normal 25.9-34.0 [facility] Comment on above: Performed By: #### C MREP #### [facility] [address] [place] [address] Dr. Risa Patterson MCHC (RBC) [Mass/Vol] 31.1 g/dL Normal 29.9-35.2 [facility] Comment on above: Performed By: #### C MREP #### [facility] [address] [place] [address] Dr. Risa Patterson MCV (RBC) [Entitic vol] 98.1 fL Critically high 80.0-94.0 [facility] Comment on above: Performed By: #### C MREP #### [facility] [address] [place] [address] Dr. Risa Patterson MONO # 0.6 103/ul Normal 0.3-0.8 [facility] Comment on above: Performed By: #### C MREP #### [facility] [address] [place] [address] Dr. Risa Patterson Monocytes/100 WBC (Bld) 14.0 % Critically high 1.7-12.0 [facility] Comment on above: Performed By: #### C MREP #### [facility] [address] [place] [address] Dr. Risa Patterson NEUT # 2.6 103/ul Normal 1.4-6.5 [facility] Comment on above: Performed By: #### C MREP #### [facility] [address] [place] [address] Dr. Risa Patterson Neutrophils/100 WBC (Bld) 58.7 % Normal 43.0-75.0 [facility] Comment on above: Performed By: #### C MREP #### [facility] [address] [place] [address] Dr. Risa Patterson Platelet mean volume (Bld) [Entitic vol] 9.9 fL Normal 9.5-13.5 [facility] Comment on above: Performed By: #### C MREP #### [facility] [address] [place] [address] Dr. Risa Patterson PLT 200 103/ul Normal 150-450 [facility] Comment on above: Performed By: #### C MREP #### [facility] [address] [place] [address] Dr. Risa Patterson RBC 3.61 106/ul Critically low 4.70-6.10 [facility] Comment on above: Performed By: #### C MREP #### [facility] [address] [place] [address] Dr. Risa Patterson WBC 4.4 103/ul Normal 4.0-11.0 [facility] Comment on above: Performed By: #### C MREP #### [facility] [address] [place] [address] Dr. Risa Patterson PROF CHEM 8 (BAS METB)on Anion gap [Moles/Vol] 12.3 mmol/L Normal [facility] Comment on above: Performed By: #### C MADM, BNP, BMP #### [facility] [address] [place] [address] Dr. Risa Patterson Calcium [Mass/Vol] 8.9 mg/dL Normal 8.5-10.1 [facility] Comment on above: Performed By: #### C MADM, BNP, BMP #### [facility] [address] [place] [address] Dr. Risa Patterson Chloride [Moles/Vol] 109 mmol/L Critically high 98-107 [facility] Comment on above: Performed By: #### C MADM, BNP, BMP #### [facility] [address] [place] [address] Dr. Risa Patterson CO2 [Moles/Vol] 27.1 mmol/L Normal 21.0-32.0 [facility] Comment on above: Performed By: #### C MADM, BNP, BMP #### [facility] [address] [place] [address] Dr. Risa Patterson Creatinine [Mass/Vol] 1.04 mg/dL Normal 0.70-1.30 [facility] Comment on above: Performed By: #### C MADM, BNP, BMP #### [facility] [address] [place] [address] Dr. Risa Patterson EGFR-AF FAROESE >60 Normal >=60 [facility] Comment on above: Performed By: #### C MADM, BNP, BMP #### [facility] [address] [place] [address] Dr. Risa Patterson EGFR-NON AF FAROESE >60 Normal >=60 [facility] Comment on above: Performed By: #### C MADM, BNP, BMP #### [facility] [address] [place] [address] Dr. Risa Patterson Glucose [Mass/Vol] 112 mg/dL Critically high 74-106 [facility] [facility] Comment on above: Performed By: #### C MADM, BNP, BMP #### [facility] [address] [address] [address] Risa Patterson Potassium [Moles/Vol] 4.4 mmol/L Normal 3.5-5.1 [facility] Comment on above: Performed By: #### C MADM, BNP, BMP #### [facility] [address] [address] [address] Risa Patterson Sodium [Moles/Vol] 144 mmol/L Normal 136-145 [facility] Comment on above: Performed By: #### C MADM, BNP, BMP #### [facility] [address] [place] [address] Dr. Risa Patterson Urea nitrogen [Mass/Vol] 19.0 mg/dL Critically high 7.0-18.0 [facility] Comment on above: Performed By: #### C MADM, BNP, BMP #### [facility] [address] [place] [address] Dr. Risa Patterson Urea nitrogen/Creatinine [Mass ratio] 18.3 mg/mg Normal [facility] Comment on above: Performed By: #### C MADM, BNP, BMP #### [facility] [address] [place] [address] Dr. Risa Patterson TSHon 11-29-2021 TSH 1.618 uIU/mL Normal 0.358-3.74 0 [facility] Comment on above: Performed By: #### C MADM, BNP, BMP #### [facility] [address] [place] [address] Dr. Risa Patterson ECHOCARDIO M/2D COMPLETEon 0 10-04-2021 ECHOCARDIO M/2D COMPLETE Patient: ELENA FELIX Exam Date: 10/04/2021 : 1960 Gender:M Ordering : NIKKIE TREJO Admission #: [id number] Family : DR SILVANA LUNDBERG M.D. Order #: [id number] CLICK HERE TO VIEW EXAM ECHOCARDIOGRAM REPORT [...] Area(A4C): 20.40 cm2 Left Atrium Systolic Volume(A2C): 16206 mm3 Left Atrium Systolic Volume(A4C): 63456 mm3 Mitral Valve MV E to A [...] Leung M.D. on 10/04/2021 at 19:44 Normal [facility] PROF CHEM 8 (BAS METB)on Anion gap [Moles/Vol] 12.3 mmol/L Normal [facility] Comment on above: Performed By: #### C MADM, BNP, BMP #### [facility] [address] [place] [address] Dr. Risa Patterson Calcium [Mass/Vol] 9.3 mg/dL Normal 8.5-10.1 [facility] Comment on above: Performed By: #### C MADM, BNP, BMP #### [facility] [address] [place] [address] Dr. Risa Patterson Chloride [Moles/Vol] 105 mmol/L Normal 98-107 [facility] Comment on above: Performed By: #### C MADM, BNP, BMP #### [facility] [address] [address] [address] Risa Patterson CO2 [Moles/Vol] 28.2 mmol/L Normal 21.0-32.0 [facility] Comment on above: Performed By: #### C MADM, BNP, BMP #### [facility] [address] [address] [address] Risa Patterson Creatinine [Mass/Vol] 1.54 mg/dL Critically high 0.70-1.30 [facility] Comment on above: Performed By: #### C MADM, BNP, BMP #### [facility] [address] [place] [address] Dr. Risa Patterson EGFR-AF FAROESE 56 mL/min/1.73m2 Critically low >=60 [facility] Comment on above: Performed By: #### C MADM, BNP, BMP #### [facility] [address] [place] [address] Dr. Risa Patterson EGFR-NON AF FAROESE 46 mL/min/1.73m2 Critically low >=60 [facility] Comment on above: Performed By: #### C MADM, BNP, BMP #### [facility] [address] [place] [address] Dr. Risa Patterson Glucose [Mass/Vol] 86 mg/dL Normal 74-106 [facility] Comment on above: Performed By: #### C MADM, BNP, BMP #### [facility] [address] [place] [address] Dr. Risa Patterson Potassium [Moles/Vol] 4.5 mmol/L Normal 3.5-5.1 [facility] Comment on above: Performed By: #### C MADM, BNP, BMP #### [facility] [address] [place] [address] Dr. Risa Patterson Sodium [Moles/Vol] 141 mmol/L Normal 136-145 [facility] Comment on above: Performed By: #### C MADM, BNP, BMP #### [facility] [address] [place] [address] Dr. Risa Patterson Urea nitrogen [Mass/Vol] 18.0 mg/dL Normal 7.0-18.0 [facility] Comment on above: Performed By: #### C MADM, BNP, BMP #### [facility] [address] [place] [address] Dr. Risa Patterson Urea nitrogen/Creatinine [Mass ratio] 11.7 mg/mg Normal [facility] Comment on above: Performed By: #### C MADM, BNP, BMP #### [facility] [address] [place] [address] Dr. Risa Patterson BNPon 09-20-2021 Natriuretic peptide B (Bld) [Mass/Vol] 186.0 pg/mL Normal <=900.0 [facility] Comment on above: Performed By: #### C MADM, BNP, BMP #### [facility] [address] [place] [address] Dr. Risa Patterson CARDIAC ALICIA 3-6on 2 CK [Catalytic activity/Vol] 133 U/L Normal 39-308 [facility] Comment on above: Performed By: #### C MREP #### [facility] [address] [place] [address] Dr. Risa Patterson CK.MB [Mass/Vol] 1.54 ng/mL Normal <=3.60 [facility] Comment on above: Performed By: #### C MREP #### [facility] [address] [place] [address] Dr. Risa Patterson HSTROP 11.9 pg/mL Normal 4.0-76.1 [facility] Comment on above: Result Comment: CUT- OFF POINTS HAVE BEEN ESTABLISHED BASED ON THE FOURTH UNIVERSAL DEFINITIONS OF MYOCARDIAL INFARCTION. THE UPPER REFERENCE LIMIT (URL) OF TROPONIN, DEFINED THE 99TH PERCENTILE OF cTnI DISTRIBUTION IN A REFERENCE POPULATION, HAS BEEN CONFIRMED THE DECISION THRESHOLD FOR AL DIAGNOSIS. Performed By: #### C MREP #### [facility] [address] [place] [address] Dr. Risa Patterson CARDIAC ALICIA ADMITon 022 CK [Catalytic activity/Vol] 136 U/L Normal 39-308 [facility] Comment on above: Performed By: #### C MADM, BNP, BMP #### [facility] [address] [place] [address] Dr. Risa Patterson CK.MB [Mass/Vol] 1.37 ng/mL Normal <=3.60 [facility] Comment on above: Performed By: #### C MADM, BNP, BMP #### [facility] [address] [place] [address] Dr. Risa Patterson HSTROP 12.1 pg/mL Normal 4.0-76.1 [facility] Comment on above: Result Comment: CUT- OFF POINTS HAVE BEEN ESTABLISHED BASED ON THE FOURTH UNIVERSAL DEFINITIONS OF MYOCARDIAL INFARCTION. THE UPPER REFERENCE LIMIT (URL) OF TROPONIN, DEFINED THE 99TH PERCENTILE OF cTnI DISTRIBUTION IN A REFERENCE POPULATION, HAS BEEN CONFIRMED THE DECISION THRESHOLD FOR AL DIAGNOSIS. Performed By: #### C MADM, BNP, BMP #### [facility] [address] [place] [address] Dr. Risa Patterson DUC 129 ng/mL Critically high 16-96 [facility] Comment on above: Performed By: #### C MADM, BNP, BMP #### [facility] [address] [place] [address] Dr. Risa Patterson CBC AUTO DIFFon 09-20-2021 BASO # 0.1 103/ul Normal 0.0-0.1 [facility] Comment on above: Performed By: #### C MREP #### [facility] [address] [place] [address] Dr. Risa Patterson Basophils/100 WBC (Bld) 0.8 % Normal 0.2-2.0 [facility] Comment on above: Performed By: #### C MREP #### [facility] [address] [place] [address] Dr. Risa Patterson EO # 0.5 103/ul Normal 0.0-0.7 [facility] Comment on above: Performed By: #### C MREP #### [facility] [address] [place] [address] Dr. Risa Patterson Eosinophils/100 WBC (Bld) 5.1 % Normal 0.9-7.0 [facility] Comment on above: Performed By: #### C MREP #### [facility] [address] [place] [address] Dr. Risa Patterson Erythrocyte distribution width (RBC) [Ratio] 14.5 % Normal 11.0-15.0 [facility] Comment on above: Performed By: #### C MREP #### [facility] [address] [place] [address] Dr. Risa Patterson Hematocrit (Bld) [Volume fraction] 40.7 % Critically low 42.0-54.0 [facility] Comment on above: Performed By: #### C MREP #### [facility] [address] [place] [address] Dr. Risa Patterson Hemoglobin (Bld) [Mass/Vol] 12.8 g/dL Critically low 14.0-18.0 [facility] Comment on above: Performed By: #### C MREP #### [facility] [address] [place] [address] Dr. Risa Patterson IG # 0.05 10e3/ul Critically high 0.00-0.03 [facility] Comment on above: Performed By: #### C MREP #### [facility] [address] [place] [address] Dr. Risa Patterson IG % 0.5 % Normal 0.0-0.5 [facility] Comment on above: Performed By: #### C MREP #### [facility] [address] [place] [address] Dr. Risa Patterson LYMPH # 1.7 103/ul Normal 1.2-3.8 [facility] Comment on above: Performed By: #### C MREP #### [facility] [address] [place] [address] Dr. Risa Patterson Lymphocytes/100 WBC (Bld) 15.8 % Critically low 20.5-60.0 [facility] Comment on above: Performed By: #### C MREP #### [facility] [address] [place] [address] Dr. Risa Patterson MANUAL DIFF REQ NO Normal [facility] Comment on above: Performed By: #### C MREP #### [facility] [address] [place] [address] Dr. Risa Patterson MCH (RBC) [Entitic mass] 30.3 pg Normal 25.9-34.0 [facility] Comment on above: Performed By: #### C MREP #### [facility] [address] [place] [address] Dr. Risa Patterson MCHC (RBC) [Mass/Vol] 31.4 g/dL Normal 29.9-35.2 [facility] Comment on above: Performed By: #### C MREP #### [facility] [address] [place] [address] Dr. Risa Patterson MCV (RBC) [Entitic vol] 96.4 fL Critically high 80.0-94.0 [facility] Comment on above: Performed By: #### C MREP #### [facility] [address] [place] [address] Dr. Risa Patterson MONO # 1.1 103/ul Critically high 0.3-0.8 [facility] Comment on above: Performed By: #### C MREP #### [facility] [address] [place] [address] Dr. Risa Patterson Monocytes/100 WBC (Bld) 10.7 % Normal 1.7-12.0 [facility] Comment on above: Performed By: #### C MREP #### [facility] [address] [place] [address] Dr. Risa Patterson NEUT # 7.1 103/ul Critically high 1.4-6.5 [facility] Comment on above: Performed By: #### C MREP #### [facility] [address] [place] [address] Dr. Risa Patterson Neutrophils/100 WBC (Bld) 67.1 % Normal 43.0-75.0 [facility] Comment on above: Performed By: #### C MREP #### [facility] [address] [place] [address] Dr. Risa Patterson Platelet mean volume (Bld) [Entitic vol] 9.5 fL Normal 9.5-13.5 [facility] Comment on above: Performed By: #### C MREP #### [facility] [address] [place] [address] Dr. Risa Patterson PLT 317 103/ul Normal 150-450 [facility] Comment on above: Performed By: #### C MREP #### [facility] [address] [place] [address] Dr. Risa Patterson RBC 4.22 106/ul Critically low 4.70-6.10 [facility] Comment on above: Performed By: #### C MREP #### [facility] [address] [place] [address] Dr. Risa Patterson WBC 10.6 103/ul Normal 4.0-11.0 [facility] Comment on above: Performed By: #### [facility] #### [facility] [address] [address] [address] Risa Patterson CTA CHEST WO W [...] MAJOR REA Date: 2021-09-20 08:07 Normal [facility] Covid-19 PCR (CVDTB)on 08-23 SARS-CoV-2 (COVID-19) RNA SAMMY+probe Ql (Unsp spec) Not detected Normal NOT DETECTED [facility] Comment on above: Result Comment: When [...] for this test is supported by the [place] of Health and Human Service's declaration that [...] By: #### C MADM, BNP, BMP #### [facility] [address] [place] [address] Dr. Risa Patterson INFLUENZA A AND B AGon 09-20 INFLUANE SEE BELOW Normal [facility] Comment on above: Result Comment: Nega tive for Flu A protein angiten. Infection due to Flu A cannot be ruled out. Flu A angiten in the sample may be below the detection limit of the test. Performed By: #### C MREP #### [facility] [address] [place] [address] Dr. Risa Patterson [facility] SEE BELOW Normal [facility] Comment on above: Result Comment: Nega tive for Flu B protein antigen. Infection due to Flu B cannot be ruled out. Flu B antigen in the sample may be below the detection limit of the test. Performed By: #### C MREP #### [facility] [address] [place] [address] Dr. Risa Patterson INFLUENZA A AG Negative Normal NEGATIVE SEE COMMENT [facility] Comment on above: Performed By: #### C MREP #### [facility] [address] [place] [address] Dr. Risa Patterson INFLUENZA B AG Negative Normal NEGATIVE SEE COMMENT [facility] Comment on above: Performed By: #### C MREP #### [facility] [address] [place] [address] Dr. Risa Patterson INTERNAL CONTROLS Within Normal Limits Normal Wi thin Normal Limits [facility] Comment on above: Performed By: #### C MREP #### [facility] [address] [place] [address] Dr. Risa Patterson PROF CHEM 8 (BAS METB)on Anion gap [Moles/Vol] 15.5 mmol/L Normal [facility] Comment on above: Performed By: #### C MADM, BNP, BMP #### [facility] [address] [address] [address] Risa Patterson Calcium [Mass/Vol] 9.0 mg/dL Normal 8.5-10.1 [facility] Comment on above: Performed By: #### C MADM, BNP, BMP #### [facility] [address] [address] [address] Risa Patterson Chloride [Moles/Vol] 104 mmol/L Normal 98-107 [facility] Comment on above: Performed By: #### C MADM, BNP, BMP #### [facility] [address] [address] [address] Risa Patterson CO2 [Moles/Vol] 25.2 mmol/L Normal 21.0-32.0 [facility] Comment on above: Performed By: #### C MADM, BNP, BMP #### [facility] [address] [address] [address] Risa Patterson Creatinine [Mass/Vol] 1.27 mg/dL Normal 0.70-1.30 [facility] Comment on above: Performed By: #### C MADM, BNP, BMP #### [facility] [address] [address] [address] Risa Patterson EGFR-AF FAROESE >60 Normal >=60 [facility] Comment on above: Performed By: #### C MADM, BNP, BMP #### [facility] [address] [address] [address] Risa Patterson EGFR-NON AF FAROESE 58 mL/min/1.73m2 Critically low >=60 [facility] Comment on above: Performed By: #### C MADM, BNP, BMP #### [facility] [address] [address] [address] Risa Patterson Glucose [Mass/Vol] 138 mg/dL Critically high 74-106 [facility] Comment on above: Performed By: #### C MADM, BNP, BMP #### [facility] [address] [address] [address] Risa Patterson Potassium [Moles/Vol] 3.7 mmol/L Normal 3.5-5.1 [facility] Comment on above: Performed By: #### C MADM, BNP, BMP #### [facility] [address] [address] [address] Risa Patterson Sodium [Moles/Vol] 141 mmol/L Normal 136-145 [facility] Comment on above: Performed By: #### C MADM, BNP, BMP #### [facility] [address] [address] [address] Risa Patterson Urea nitrogen [Mass/Vol] 19.0 mg/dL Critically high 7.0-18.0 [facility] Comment on above: Performed By: #### C MADM, BNP, BMP #### [facility] [address] [place] [address] Dr. Risa Patterson Urea nitrogen/Creatinine [Mass ratio] 15.0 mg/mg Normal [facility] Comment on above: Performed By: #### C MADM, BNP, BMP #### [facility] [address] [place] [address] Dr. Risa Patterson XR CHEST 1 Von [...] No acute findings. Electronically authenticated by: ANGELES NASASR Date: 2021-09-20 06:53 Normal [facility] US ASHLEY DOP [...] Findings called to ordering provider by the secret code expert at time of imaging. Electronically authenticated by: ASHER SOLANO Date: 2021-09-14 14:25 Normal [facility] Cardiovascular Lab Reporton 06-25-2021 Cardiovascular Lab Report [facility] Patient Name: Elena Felix [facility] Vanessa MR #: [id number] Physician: Nikkie Department of MD [facility] Service Date: 06/23/2021 Division of Birthdate: 1960 Cardiology Room #: CC Adult Cardiovascular Services [facility] [address] [facility] [place] [address] Cardiovascular Laboratory Report Procedures: 1. Right heart [...] Trejo MD Date Trans: 06/25/2021 03:01 P/ [id number] cc: Renato Lundberg M.D. [address] [place] [address] [address] [facility] [address] [facility] Vital Signs Date Time Vital Sign Value Performing Clinician Facility 11-25-2024 09:00-0400 Body height 185.42 cm Silvana Lundberg MD Work Phone: [facility] 11-25-2024 09:00-0400 Body mass index (BMI) [Ratio] 39.7 kg/m2 Silvana Lundberg MD Work Phone: [facility] 11-25-2024 09:00-0400 Body weight 136.75 kg Silvana Lundberg MD Work Phone: [facility] 11-25-2024 09:00-0400 Diastolic blood pressure 82 mm[Hg] Silvana Lundberg MD Work Phone: [facility] 11-25-2024 09:00-0400 Heart rate 77 /min Silvana Lundberg MD Work Phone: [facility] 11-25-2024 09:00-0400 SaO2% (BldA) [Mass fraction] 95 % Silvana Lundberg MD Work Phone: [facility] 11-25-2024 09:00-0400 Systolic blood pressure 120 mm[Hg] Silvana Lundberg MD Work Phone: [facility] 10-28-2024 15:05-0400 Body height 185.42 cm Silvana Lundberg MD Work Phone: [facility] 10-28-2024 15:05-0400 Body mass index (BMI) [Ratio] 39.5 kg/m2 Silvana Lundberg MD Work Phone: [facility] 10-28-2024 15:05-0400 Body weight 136.07 kg Silvana Lundberg MD Work Phone: [facility] 10-28-2024 15:05-0400 Diastolic blood pressure 80 mm[Hg] Silvana Lundberg MD Work Phone: [facility] 10-28-2024 15:05-0400 Heart rate 73 /min Silvana Lundberg MD Work Phone: [facility] 10-28-2024 15:05-0400 SaO2% (BldA) [Mass fraction] 96 % Silvana Lundberg MD Work Phone: [facility] 10-28-2024 15:05-0400 Systolic blood pressure 112 mm[Hg] Silvana Lundberg MD Work Phone: [facility] 10-06-2024 10:18-0400 Body height 185.42 cm Silvana Lundberg MD Work Phone: [facility] 10-06-2024 10:18-0400 Body mass index (BMI) [Ratio] 40.1 kg/m2 Silvana Lundberg MD Work Phone: [facility] 10-06-2024 10:18-0400 Body weight 137.89 kg Silvana Lundberg MD Work Phone: [facility] 10-06-2024 10:18-0400 Diastolic blood pressure 64 mm[Hg] Silvana Lundberg MD Work Phone: [facility] 10-06-2024 10:18-0400 Heart rate 86 /min Silvana Lundberg MD Work Phone: [facility] 10-06-2024 10:18-0400 SaO2% (BldA) [Mass fraction] 95 % Silvana Lundberg MD Work Phone: [facility] 10-06-2024 10:18-0400 Systolic blood pressure 102 mm[Hg] Silvana Lundberg MD Work Phone: [facility] 09-08-2024 13:31-0400 Body height 185.42 cm Silvana Lundberg MD Work Phone: [facility] 09-08-2024 13:31-0400 Body mass index (BMI) [Ratio] 40.5 kg/m2 Silvana Lundberg MD Work Phone: [facility] 09-08-2024 13:31-0400 Body weight 139.25 kg Silvana Lundberg MD Work Phone: [facility] 09-08-2024 13:31-0400 Diastolic blood pressure 67 mm[Hg] Silvana Lundberg MD Work Phone: [facility] 09-08-2024 13:31-0400 Heart rate 79 /min Silvana Lundberg MD Work Phone: [facility] 09-08-2024 13:31-0400 Systolic blood pressure 94 mm[Hg] Silvana Lundberg MD Work Phone: [facility] 09-08-2024 10:27-0400 Body height 185.42 cm Silvana Lundberg MD Work Phone: [facility] 09-08-2024 10:27-0400 Body mass index (BMI) [Ratio] 40.4 kg/m2 Silvana Lundberg MD Work Phone: [facility] 09-08-2024 10:27-0400 Body weight 139 kg Silvana Lundberg MD Work Phone: [facility] 09-08-2024 10:27-0400 Diastolic blood pressure 68 mm[Hg] Silvana Lundberg MD Work Phone: [facility] 09-08-2024 10:27-0400 Heart rate 70 /min Silvana Lundberg MD Work Phone: [facility] 09-08-2024 10:27-0400 Respiratory rate 18 /min Silvana Lundberg MD Work Phone: [facility] 09-08-2024 10:27-0400 SaO2% (BldA) [Mass fraction] 97 % Silvana Lundberg MD Work Phone: [facility] 09-08-2024 10:27-0400 Systolic blood pressure 108 mm[Hg] Silvana Lundberg MD Work Phone: [facility] 08-19-2024 10:17-0400 Body height 185.42 cm Silvana Lundberg MD Work Phone: [facility] 08-19-2024 10:17-0400 Body mass index (BMI) [Ratio] 40.4 kg/m2 Silvana Lundberg MD Work Phone: [facility] 08-19-2024 10:17-0400 Body weight 139.02 kg Silvana Lundberg MD Work Phone: [facility] 08-19-2024 10:17-0400 Diastolic blood pressure 70 mm[Hg] Silvana Lundberg MD Work Phone: [facility] 08-19-2024 10:17-0400 Heart rate 71 /min Silvana Lundberg MD Work Phone: [facility] 08-19-2024 10:17-0400 SaO2% (BldA) [Mass fraction] 98 % Silvana Lundberg MD Work Phone: [facility] 08-19-2024 10:17-0400 Systolic blood pressure 110 mm[Hg] Silvana Lundberg MD Work Phone: [facility] 07-23-2024 09:30-0400 Body weight 141.06 kg Silvana Lundberg MD Work Phone: [facility] 07-23-2024 09:30-0400 Diastolic blood pressure 64 mm[Hg] Silvana Lundberg MD Work Phone: [facility] 07-23-2024 09:30-0400 Heart rate 85 /min Silvana Lundberg MD Work Phone: [facility] 07-23-2024 09:30-0400 SaO2% (BldA) [Mass fraction] 97 % Silvana Lundberg MD Work Phone: [facility] 07-23-2024 09:30-0400 Systolic blood pressure 106 mm[Hg] Silvana Lundberg MD Work Phone: [facility] 06-10-2024 09:30-0500 Diastolic blood pressure 60 mm[Hg] [facility] 06-10-2024 09:30-0500 Heart rate 63 /min [facility] 06-10-2024 09:30-0500 SaO2% (BldA) [Mass fraction] 97 % [facility] 06-10-2024 09:30-0500 Systolic blood pressure 108 mm[Hg] [facility] 05-13-2024 10:41-0500 Body height 185.42 cm [facility] 05-13-2024 10:41-0500 Body mass index (BMI) [Ratio] 42.2 kg/m2 [facility] 05-13-2024 10:41-0500 Body weight 145.14 kg [facility] 05-13-2024 10:41-0500 Diastolic blood pressure 70 mm[Hg] [facility] 05-13-2024 10:41-0500 Heart rate 69 /min [facility] 05-13-2024 10:41-0500 Systolic blood pressure 104 mm[Hg] [facility] 02-08-2024 09:46-0400 Body height 185 cm Alysha Emanuel MD Work Phone: [facility] 02-08-2024 09:46-0400 Body mass index (BMI) [Ratio] 40.17 kg/m2 Alysha Emanuel MD Work Phone: [facility] 02-08-2024 09:46-0400 Body weight 137.5 kg Alysha Emanuel MD Work Phone: [facility] 02-08-2024 09:46-0400 Diastolic blood pressure 80 mm[Hg] Alysha Emanuel MD Work Phone: [facility] 02-08-2024 09:46-0400 Heart rate 73 /min Alysha Emanuel MD Work Phone: [facility] 02-08-2024 09:46-0400 Systolic blood pressure 124 mm[Hg] Alysha Emanuel MD Work Phone: [facility] 01-04-2024 10:47-0400 Blood Pressure Location Jerrod BELL [facility] 01-04-2024 10:47-0400 Diastolic blood pressure 78 mm[Hg] Jerrod BELL [facility] 01-04-2024 10:47-0400 Systolic blood pressure 118 mm[Hg] Jerrod ARABELLA [facility] 12-04-2023 09:03-0400 Body height 188 cm Karthikeyan Marti MD Work Phone: [facility] 12-04-2023 09:03-0400 Body mass index (BMI) [Ratio] 39.19 kg/m2 Karthikeyan Marti MD Work Phone: [facility] 12-04-2023 09:03-0400 Body temperature 97.3 [degF] Karthikeyan Marti MD Work Phone: [facility] 12-04-2023 09:03-0400 Body weight 138.5 kg Karthikeyan Marti MD Work Phone: [facility] 12-04-2023 09:03-0400 Diastolic blood pressure 65 mm[Hg] Karthikeyan Marti MD Work Phone: [facility] 12-04-2023 09:03-0400 Heart rate 97 /min Karthikeyan Marti MD Work Phone: [facility] 12-04-2023 09:03-0400 Respiratory rate 16 /min Karthikeyan Marti MD Work Phone: [facility] 12-04-2023 09:03-0400 SaO2% (BldA) [Mass fraction] 97 % Karthikeyan Marti MD Work Phone: [facility] 12-04-2023 09:03-0400 Systolic blood pressure 97 mm[Hg] Karthikeyan Marti MD Work Phone: [facility] 10-01-2023 09:11-0400 Body height 185.42 cm MD Silvana Lundberg Work Phone: [facility] 10-01-2023 09:11-0400 Body mass index (BMI) [Ratio] 38.9 kg/m2 MD Silvana Lundberg Work Phone: [facility] 10-01-2023 09:11-0400 Body weight 133.8 kg MD Silvana Lundberg Work Phone: [facility] 10-01-2023 09:11-0400 Diastolic blood pressure 76 mm[Hg] MD Silvana Lundberg Work Phone: [facility] 10-01-2023 09:11-0400 Heart rate 103 /min MD Silvana Lundberg Work Phone: [facility] 10-01-2023 09:11-0400 Systolic blood pressure 117 mm[Hg] MD Silvana Lundberg Work Phone: [facility] 08-31-2023 11:00-0400 Body height 185.42 cm [facility] 08-31-2023 11:00-0400 Body mass index (BMI) [Ratio] 39.4 kg/m2 [facility] 08-31-2023 11:00-0400 Body weight 135.62 kg [facility] 08-31-2023 11:00-0400 Diastolic blood pressure 74 mm[Hg] [facility] 08-31-2023 11:00-0400 Heart rate 84 /min [facility] 08-31-2023 11:00-0400 Systolic blood pressure 125 mm[Hg] [facility] 07-16-2023 10:00-0400 Body temperature 98.42 [degF] Jerrod BELL [facility] 07-16-2023 10:00-0400 Diastolic blood pressure 78 mm[Hg] Jerrod BLEL [facility] 07-16-2023 10:00-0400 Heart rate 95 /min Jerrod BELL [facility] 07-16-2023 10:00-0400 Respiratory rate 16 /min Jerrod BELL [facility] 07-16-2023 10:00-0400 Systolic blood pressure 109 mm[Hg] Jerrod BELL [facility] 07-06-2023 09:51-0400 Body height 185.42 cm PHYSICIAN NO [facility] 07-06-2023 09:51-0400 Body mass index (BMI) [Ratio] 39.2 kg/m2 PHYSICIAN NO [facility] 07-06-2023 09:51-0400 Body weight 134.71 kg PHYSICIAN NO [facility] 07-06-2023 09:51-0400 Diastolic blood pressure 72 mm[Hg] PHYSICIAN NO [facility] 07-06-2023 09:51-0400 Heart rate 88 /min PHYSICIAN NO [facility] 07-06-2023 09:51-0400 SaO2% (BldA) [Mass fraction] 98 % PHYSICIAN NO [facility] 07-06-2023 09:51-0400 Systolic blood pressure 108 mm[Hg] PHYSICIAN HUSAM [facility] 02-05-2023 12:48-0400 Body weight 129.73 kg Austin Jose MD Work Phone: [facility] 11-17-2022 10:05-0400 Diastolic blood pressure 74 mm[Hg] Berta Francis MD Work Phone: [facility] 11-17-2022 10:05-0400 Heart rate 62 /min Berta Francis MD Work Phone: [facility] 11-17-2022 10:05-0400 Systolic blood pressure 107 mm[Hg] Berta Francis MD Work Phone: [facility] 11-17-2022 09:58-0400 Body weight 132 kg Berta Francis MD Work Phone: [facility] 11-17-2022 09:58-0400 SaO2% (BldA) [Mass fraction] 97 % Berta Francis MD Work Phone: [facility] 10-31-2022 11:00-0400 Body height 185.42 cm Silvana Lundberg Other [employer] Other 10-31-2022 11:00-0400 Body mass index (BMI) [Ratio] 39.58 kg/m2 Silvana Lundberg Other [employer] Other 10-31-2022 11:00-0400 Body temperature 97.9 [degF] Silvana Lundberg Other [employer] Other 10-31-2022 11:00-0400 Body weight 136.08 kg Silvana Lundberg Other [employer] Other 10-31-2022 11:00-0400 Diastolic blood pressure 49 mm[Hg] Silvana Lundberg Other [employer] Other 10-31-2022 11:00-0400 Systolic blood pressure 91 mm[Hg] Silvana Lundberg Other [employer] Other 10-16-2022 14:45-0400 Body height 185.42 cm Silvana Lundberg Other [employer] Other 10-16-2022 14:45-0400 Body mass index (BMI) [Ratio] 38.39 kg/m2 Silvana Lundberg Other [employer] Other 10-16-2022 14:45-0400 Body weight 132 kg Silvana Lundberg Other [employer] Other 10-16-2022 14:45-0400 Diastolic blood pressure 62 mm[Hg] Silvana Lundberg Other [employer] Other 10-16-2022 14:45-0400 Systolic blood pressure 89 mm[Hg] Silvana Lundberg Other [employer] Other 10-06-2022 08:23-0400 Body height 188 cm Anna Palacios APRN.CNP Work Phone: [facility] 10-06-2022 08:23-0400 Body weight 131.54 kg Anna Palacios APRN.ADULT CARE MANAGER Work Phone: [facility] 10-06-2022 08:23-0400 Diastolic blood pressure 59 mm[Hg] Anna Palacios APRN.ADULT CARE MANAGER Work Phone: [facility] 10-06-2022 08:23-0400 Heart rate 83 /min Anna Palacios APRN.ADULT CARE MANAGER Work Phone: [facility] 10-06-2022 08:23-0400 SaO2% (BldA) [Mass fraction] 95 % Anna Palacios APRN.ADULT CARE MANAGER Work Phone: [facility] 10-06-2022 08:23-0400 Systolic blood pressure 106 mm[Hg] Anna Palacios FAN Work Phone: [facility] 08-16-2022 08:14-0400 Diastolic blood pressure 78 mm[Hg] Berta Francis MD Work Phone: [facility] 08-16-2022 08:14-0400 Systolic blood pressure 114 mm[Hg] Berta Francis MD Work Phone: [facility] 08-16-2022 08:10-0400 Body height 188 cm Berta Francis MD Work Phone: [facility] 08-16-2022 08:10-0400 Body weight 132.36 kg Berta Francis MD Work Phone: [facility] 08-16-2022 08:10-0400 Heart rate 89 /min Berta Francis MD Work Phone: [facility] 08-16-2022 08:10-0400 SaO2% (BldA) [Mass fraction] 96 % Berta Francis MD Work Phone: [facility] 05-08-2022 10:00-0500 Body height 185.42 cm Silvana Lundberg Other [employer] Other 05-08-2022 10:00-0500 Body mass index (BMI) [Ratio] 39.71 kg/m2 Silvana Lundberg Other [employer] Other 05-08-2022 10:00-0500 Body weight 136.53 kg Silvana Lundberg Other [employer] Other 05-08-2022 10:00-0500 Diastolic blood pressure 72 mm[Hg] Silvana Lundberg Other [employer] Other 05-08-2022 10:00-0500 SaO2% (BldA) [Mass fraction] 97 % Silvana Lundberg Other [employer] [facility] [employer] Other 05-08-2022 10:00-0500 Systolic blood pressure 112 mm[Hg] Silvana Lundberg Other [employer] Other 01-18-2022 09:54-0400 Body height 190.5 cm Karthikeyan Marti MD Work Phone: [facility] 01-18-2022 09:54-0400 Body temperature 97.3 [degF] Karthikeyan Marti MD Work Phone: [facility] 01-18-2022 09:54-0400 Body weight 131.91 kg Karthikeyan Marti MD Work Phone: [facility] 01-18-2022 09:54-0400 Diastolic blood pressure 71 mm[Hg] Karthikeyan Marti MD Work Phone: [facility] 01-18-2022 09:54-0400 Heart rate 92 /min Karthikeyan Marti MD Work Phone: [facility] 01-18-2022 09:54-0400 Respiratory rate 18 /min Karthikeyan Marti MD Work Phone: [facility] 01-18-2022 09:54-0400 SaO2% (BldA) [Mass fraction] 97 % Karthikeyan Marti MD Work Phone: [facility] 01-18-2022 09:54-0400 Systolic blood pressure 122 mm[Hg] Karthikeyan Marti MD Work Phone: [facility] 12-28-2021 14:38-0400 Body height 190.5 cm Karthikeyan Marti MD Work Phone: [facility] 12-28-2021 14:38-0400 Body temperature 97.2 [degF] Karthikeyan Marti MD Work Phone: [facility] 12-28-2021 14:38-0400 Body weight 135.53 kg Karthikeyan Marti MD Work Phone: [facility] 12-28-2021 14:38-0400 Diastolic blood pressure 66 mm[Hg] Karthikeyan Marti MD Work Phone: [facility] 12-28-2021 14:38-0400 Heart rate 72 /min Karthikeyan Marti MD Work Phone: [facility] 12-28-2021 14:38-0400 Respiratory rate 18 /min Karthikeyan Marti MD Work Phone: [facility] 12-28-2021 14:38-0400 SaO2% (BldA) [Mass fraction] 96 % Karthikeyan Marti MD Work Phone: [facility] 12-28-2021 14:38-0400 Systolic blood pressure 127 mm[Hg] Karthikeyan Marti MD Work Phone: [facility] 09-21-2021 15:35-0400 Body height 190.5 cm Karthikeyan Marti MD Work Phone: [facility] 09-21-2021 15:35-0400 Body temperature 97.2 [degF] Karthikeyan aMrti MD Work Phone: [facility] 09-21-2021 15:35-0400 Body weight 132.63 kg Karthikeyan Marti MD Work Phone: [facility] 09-21-2021 15:35-0400 Diastolic blood pressure 73 mm[Hg] Karthikeyan Marti MD Work Phone: [facility] 09-21-2021 15:35-0400 Heart rate 91 /min Karthikeyan Marti MD Work Phone: [facility] 09-21-2021 15:35-0400 Respiratory rate 16 /min Karthikeyan Marti MD Work Phone: [facility] 09-21-2021 15:35-0400 SaO2% (BldA) [Mass fraction] 94 % Karthikeyan Marti MD Work Phone: [facility] 09-21-2021 15:35-0400 Systolic blood pressure 122 mm[Hg] Karthikeyan Marti MD Work Phone: [facility] Encounters Encounter Date Encounter Type Care Provider Facility Start: 07-20-2025 ambulatory PA-C EUGENIA MUÑOZ Facility:[facility] Start: 07-14-2025 ambulatory PA-C EUGENIA Stefani WANDA Facility:[facility] Start: 12-10-2024 End: 12-10-2024 Telephone encounter Panfilo Carranza RN Hematology/Oncology Start: 12-10-2024 End: 12-10-2024 Patient encounter procedure Frederic Zamarripa MD -[facility] Work Phone: Start: 12-10-2024 End: 12-10-2024 ambulatory Silvana Lundberg MD Work Phone: [facility] Work Phone: Start: 11-25-2024 End: 11-25-2024 ambulatory Silvana Lundberg MD Work Phone: [facility] Work Phone: Start: 11-25-2024 End: 11-25-2024 Patient encounter procedure Frederic Zamarripa MD -[facility] Work Phone: Start: 10-31-2024 Non-patient / Non-visit Safia Enrique APRN -[facility] Work Phone: Start: 10-28-2024 End: 10-28-2024 ambulatory Silvana Lundberg MD Work Phone: [facility] Work Phone: Start: 10-28-2024 End: 10-28-2024 Patient encounter procedure Estella Tadeo NP -[facility] Work Phone: Start: 10-14-2024 End: 10-14-2024 Patient encounter procedure Frederic Zamarripa MD -[facility] Work Phone: Start: 10-14-2024 Non-patient / Non-visit Frederic salmeron MD -[facility] Work Phone: Start: 10-06-2024 End: 10-06-2024 Patient encounter procedure Frederic Zamarripa MD -[facility] Work Phone: Start: 09-25-2024 End: 09-25-2024 ambulatory Silvana Lundberg MD Work Phone: [facility] Work Phone: Start: 09-25-2024 End: 09-25-2024 Patient encounter procedure Silvana Lundberg MD Work Phone: [facility] Work Phone: Start: 09-25-2024 Non-patient / Non-visit Frederic salmeron MD -[facility] Work Phone: Start: 09-08-2024 End: 09-08-2024 Patient encounter procedure Silvana Lundberg MD Work Phone: [facility] Work Phone: Start: 09-08-2024 End: 09-08-2024 Patient encounter procedure Silvana Lundberg MD Work Phone: [facility] Work Phone: Start: 08-28-2024 Non-patient / Non-visit Silvana Lundberg MD Work Phone: [facility] Work Phone: Start: 08-28-2024 End: 08-28-2024 ambulatory Silvana Lundberg MD Work Phone: [facility] Work Phone: Start: 08-28-2024 End: 08-28-2024 Patient encounter procedure Silvana Lundberg MD Work Phone: [facility] Work Phone: Start: 08-19-2024 End: 08-19-2024 ambulatory Silvana Lundberg MD Work Phone: [facility] Work Phone: Start: 08-19-2024 End: 08-19-2024 Patient encounter procedure Silvana Lundberg MD Work Phone: [facility] Work Phone: Start: 08-06-2024 End: 08-06-2024 Patient encounter procedure Silvana Lundberg MD Work Phone: [facility] [place] Work Phone: Start: 08-06-2024 End: 08-06-2024 ambulatory Silvana Lundberg MD Work Phone: [facility] Work Phone: Start: 07-30-2024 End: 07-30-2024 Refill Alysha Emanuel MD Work Phone: Endocrinology Comment on above: Refill Request Start: 07-23-2024 End: 07-23-2024 ambulatory Silvana Lundberg MD Work Phone: [facility] Work Phone: Start: 07-23-2024 End: 07-23-2024 Patient encounter procedure Silvana Lundberg MD Work Phone: [facility] Work Phone: Start: 07-21-2024 End: 07-21-2024 ambulatory [facility] Start: 07-21-2024 End: 07-21-2024 ambulatory EUGENIA MUÑOZ Facility:[facility] Start: 07-19-2024 Non-patient / Non-visit Silvana Lundberg MD Work Phone: [facility] Work Phone: Start: 07-14-2024 Non-patient / Non-visit Silvana Lundberg MD Work Phone: [facility] Work Phone: Start: 06-10-2024 End: 06-10-2024 [facility] Start: 06-10-2024 End: 06-10-2024 ambulatory Silvana Lundberg MD Work Phone: [facility] Work Phone: Start: 06-10-2024 End: 06-10-2024 Patient encounter procedure [facility] Work Phone: Start: 05-30-2024 Non-patient / Non-visit [facility] Work Phone: Start: 05-28-2024 Non-patient / Non-visit Silvana Lundberg MD Work Phone: [facility] Work Phone: Start: 05-28-2024 Non-patient / Non-visit [facility] Work Phone: Start: 05-13-2024 End: 05-13-2024 ambulatory [facility] Work Phone: Start: 05-13-2024 End: 05-13-2024 [facility] Work Phone: Start: 04-09-2024 End: 04-09-2024 ambulatory Alysha Emanuel MD Work Phone: Endocrinology Comment on above: New injection Start: 04-07-2024 End: 04-07-2024 Telephone encounter Alysha Emanuel MD Work Phone: Endocrinology Comment on above: Medication Problem ( Teriparatide 20 mcg/dose (600mcg/2.4mL) Start: 04-07-2024 Non-patient / Non-visit [facility] Work Phone: Start: 03-17-2024 Non-patient / [facility]-visit [facility] Work Phone: Start: 03-17-2024 End: 03-17-2024 ambulatory ALYSHA EMANUEL Facility:[facility] Start: 02-12-2024 End: 02-12-2024 ambulatory SILVANA LUNDBERG Facility:[facility] Start: 02-08-2024 End: 02-08-2024 ambulatory ALONSTAN MARÍA Facility:[facility] Start: 02-08-2024 End: 02-08-2024 Patient encounter [...] Start: 01-04-2024 End: 01-04-2024 ambulatory Jerrod BELL Facility:[facility] Start: 01-04-2024 End: 01-04-2024 Patient encounter procedure Jerrod BELL [facility] Start: 12-25-2023 End: 12-25-2023 ambulatory Jerrod BELL Facility:[facility] Start: 12-25-2023 End: 12-25-2023 Patient encounter procedure Jerrod BELL [facility] Start: 12-04-2023 End: 12-04-2023 ambulatory Karthikeyan Marti MD Work Phone: Hematology/Oncology Comment on above: History of DVT (deep vein thrombosis) (Primary Dx); Monoclonal gammopathy Start: 12-04-2023 End: 12-04-2023 Patient encounter procedure Karthikeyan Marti MD Work Phone: Hematology/Oncology Start: 11-29-2023 End: 11-29-2023 Office outpatient visit 15 minutes Misty Wallace MD Work Phone: [facility] Comment on above: Closed fracture of h ip, left, with delayed healing, subsequent encounter (Primary Dx) Start: 11-29-2023 End: 11-29-2023 ambulatory ANOA KERIIDRI Facility:[facility] Start: 11-29-2023 End: 11-29-2023 Subsequent hospital visit by physician [facility] Rad[facility] Comment on above: Closed fracture of h ip, left, with delayed healing, subsequent encounter [S72.002G] Start: 10-01-2023 Telephone encounter Alysha Emanuel MD Work Phone: Endocrinology Start: 10-01-2023 End: 10-01-2023 ambulatory MD Silvana Lundberg Work Phone: [facility] Work Phone: Start: 10-01-2023 End: 10-01-2023 Patient encounter procedure MD Silvana Lundberg Work Phone: [facility] Work Phone: Start: 09-28-2023 Telephone encounter Misty dumont MD Work Phone: [facility] Comment on above: Results (Spoke with patient regarding his PTH results. ) Start: 09-27-2023 Non-patient / Non-visit MD Jaqueline Lundberg Work Phone: [facility] Work Phone: Start: 09-27-2023 End: 09-27-2023 ambulatory MISTY WALLACE Facility:[facility] Start: 09-27-2023 End: 09-27-2023 Office outpatient new 45 minutes Misty Wallace MD Work Phone: [facility] Comment on above: Closed fracture of h ip, left, with delayed healing, subsequent encounter (Primary Dx); Ankylosing spondylitis of multiple sites in spine (HCC); Acute deep vein thrombosis (DVT) of femoral vein of both lower extremities (HCC); Morbid obesity with BMI of 40.0-44.9, adult (HCC) Start: 09-27-2023 End: 09-27-2023 ambulatory ANOKHA PADUBIDRI Facility:[facility] Start: 09-27-2023 End: 09-27-2023 Subsequent hospital visit by physician [facility] Radiology Comment on above: Pain [R52] Start: 2023 End: 2023 Patient encounter procedure MD Silvana Lundberg Work Phone: [facility] [address] Work Phone: Start: 08-31-2023 End: 08-31-2023 ambulatory [facility] Work Phone: Start: 08-31-2023 End: 08-31-2023 Patient encounter procedure [facility] ysician [facility] Work Phone: Start: 08-02-2023 Non-patient / Non-visit [facility] Work Phone: Start: 07-31-2023 End: 07-31-2023 ambulatory ANNA A PETITTI Not Available Start: 07-17-2023 End: 07-17-2023 ambulatory ANNA A PETITTI Not Available Start: 07-16-2023 End: 07-16-2023 Patient encounter procedure Jerrod BELL [facility] Start: 07-06-2023 End: 07-06-2023 ambulatory PHYSICIAN NO [facility] Work Phone: Start: 07-06-2023 End: 07-06-2023 Patient encounter procedure PHYSICIAN NO [facility] Work Phone: Start: 06-20-2023 Non-patient / Non-visit PHYSIC TJ NO [facility] Physician [facility] Work Phone: Start: 05-03-2023 End: 05-03-2023 ambulatory PHYSICIAN NO [facility] Work Phone: Start: 05-03-2023 End: 05-03-2023 Patient encounter procedure PHYSICIAN NO [facility] [address] Work Phone: Start: 03-29-2023 (Televisit) Televisit Silvana Lundberg [facility] Start: 03-29-2023 End: 03-29-2023 ambulatory Silvana Lundberg Other [employer] Other Start: 02-19-2023 End: 02-19-2023 ambulatory Silvana Lundberg Other [employer] Other Start: 02-19-2023 Telephone encounter Silvana Lundberg [facility] Start: 02-05-2023 End: 02-05-2023 Patient encounter procedure Austin Jose MD Work Phone: Cardiology Comment on above: Shortness of breath (Primary Dx); Near syncope Start: 12-27-2022 End: 12-27-2022 ambulatory Silvana Lundberg Other [employer] Other Start: 12-27-2022 Nursing evaluation o f patient and report Silvana Lundberg [facility] Start: 12-11-2022 End: 12-11-2022 ambulatory PHYSICIAN NO [facility] Work Phone: Start: 12-11-2022 End: 12-11-2022 Patient encounter procedure PHYSICIAN NO [facility] [address] Work Phone: Start: 11-17-2022 End: 11-17-2022 Patient encounter procedure Berta Francis MD Work Phone: Cardiology Comment on above: SOB (shortness of br eath) (Primary Dx); Coronary artery disease involving [place] coronary artery of [place] heart without angina pectoris; Palpitations Start: 11-07-2022 End: 11-07-2022 ambulatory Silvana Lundberg Other [employer] Other Start: 11-07-2022 Nursing evaluation o f patient and report Silvana Lundberg [facility] Start: 11-07-2022 Telephone encounter Silvana Lundberg [facility] Start: 11-02-2022 End: 11-02-2022 ambulatory Silvana Lundberg Other [employer] Other Start: 11-02-2022 Telephone encounter Silvana Lundberg [facility] Start: 10-31-2022 Office outpatient vi sit 15 minutes Silvana Lundberg [facility] Start: 10-31-2022 End: 10-31-2022 ambulatory MD Silvana Lundberg Work Phone: [facility] Work Phone: Start: 10-31-2022 End: 10-31-2022 Departed Referred MD Silvana Lundberg Work Phone: [facility] [address] [place] Work Phone: Start: 10-17-2022 Orders Only Berta Francis MD Work Phone: Cardiology Comment on above: Dilated cardiomyopat hy (HCC) (Primary Dx) 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 sites in spine (HCC) (Primary Dx) Results (Abnormal La bs) Start: 10-16-2022 Office outpatient vi sit 25 minutes Silvana Lundberg [facility] Start: 10-16-2022 End: 10-16-2022 ambulatory Emg 1000) Work Phone: Neurology Comment on above: EMG Start: 10-16-2022 End: 10-16-2022 Patient encounter procedure Emg 1 Neur Main (Max Weight: 1000) Work Phone: [facility] Start: 10-12-2022 Telephone encounter Anna carrasco PUBLISHING SYSTEMS ANALYST.ADULT CARE MANAGER Work Phone: Neurology Comment on above: Results (Abnormal la bs) Start: 10-06-2022 End: 10-06-2022 Patient encounter procedure Anna Palacios PUBLISHING SYSTEMS ANALYST.ADULT CARE MANAGER Work Phone: Neurology Comment on above: [...] Start: 09-06-2022 End: 09-07-[address] [facility] Facility:H1 Start: 08-29-2022 End: 08-29-2022 ambulatory David Anderson MD Work Phone: Cardiology Comment on above: Shortness of Breath Start: 08-29-2022 End: 08-29-2022 Patient encounter procedure David Anderson MD Work Phone: [facility] Start: 08-28-2022 Telephone encounter David Saravia [...] spine (HCC) Start: 08-15-2022 Telephone encounter Berta crockett MD Work Phone: Cardiology Comment on above: Received Outside Med ical Records Start: 07-31-2022 End: 08-01-2022 ambulatory CARLOS KRISHNA [facility] Start: 07-31-2022 End: 07-31-2022 Subsequent hospital visit by physician Mth Tilt Table Study Room [facility] Stress Lab Comment on above: Orthostatic hypotens ion; POTS (postural orthostatic tachycardia syndrome) Start: 07-12-2022 Telephone encounter Berta crockett MD Work Phone: Cardiology Comment on above: Appointment Start: 07-04-2022 End: 07-05-2022 ambulatory NIKKIE TREJO Facility:H1 Start: 06-26-2022 End: 06-27-2022 ambulatory NIKKIE TREJO Facility:H1 Start: 06-26-[address] DOCTOR NUNES Facility :H1 Start: 05-24-[address] DOCTOR NUNES Facility :H1 Start: 05-08-2022 End: 05-08-2022 ambulatory Silvana Lundberg Other [employer] Other Start: 05-08-2022 Office outpatient vi sit 15 minutes Silvana Lundberg [facility] Start: 05-01-2022 End: 05-01-2022 Patient encounter procedure Jerrod BELL [facility] Start: 04-24-2022 End: 04-25-[address] DOCTOR NUNES Facility:H1 Start: 04-10-2022 End: 04-11-[address] DOCTOR NUNES Facility:H1 Start: 04-03-2022 End: 04-04-[address] BRAD HODGES Facility:H1 Start: 01-18-2022 End: 01-18-2022 ambulatory Karthikeyan Marti MD Work Phone: Hematology/Oncology Comment on above: History of DVT (deep vein thrombosis) (Primary Dx) Start: 01-18-2022 End: 01-18-2022 Patient encounter procedure Karthikeyan Marti MD Work Phone: [facility] Start: 01-02-2022 End: 01-03-[address] DOCTOR NUNES Facility:H1 Start: 01-02-2022 Telephone encounter Meaghan De La Rosa RN Work Phone: Hematology/Oncology Comment on above: Results (Lab results ) Results Start: 12-28-2021 End: 12-28-2021 ambulatory Karthikeyan Marti MD Work Phone: Hematology/Oncology Comment on above: Acute deep vein thro mbosis (DVT) of distal end of left lower extremity (HCC) (Primary Dx) Start: 12-28-2021 End: 12-28-2021 Patient encounter procedure Karthikeyan Marti MD Work Phone: [facility] Start: 12-15-2021 End: 12-16-[address] SILVANA LUNDBERG Facility:H1 Start: 11-29-2021 End: 11-30-2021 ambulatory CARLOS KRISHNA Facility:H1 Start: 11-23-2021 End: 11-23-[address] TONY DELEON Facility:H1 Start: 10-04-2021 End: 10-05-2021 ambulatory NIKKIE TREJO Facility:H1 Start: 09-22-2021 ambulatory NIKKIE TREJO Faci lity:H1 Start: 09-21-2021 End: 09-21-2021 ambulatory Karthikeyan Marti MD Work Phone: Hematology/Oncology Comment on above: Acute deep vein thro mbosis (DVT) of distal end of left lower extremity (HCC) (Primary Dx) Start: 09-21-2021 End: 09-21-2021 Patient encounter procedure Karthikeyan Marti MD Work Phone: [facility] Start: 09-20-2021 End: 09-20-2021 ambulatory BRYSON ENG Facility:H1 Start: 09-16-2021 Chart abstracting Karthikeyan hernandez MD Work Phone: Hematology/Oncology Start: 09-14-2021 End: 09-15-2021 ambulatory NIKKIE TREJO Facility:H1 Start: 08-06-2020 End: 08-06-2020 Discharged Recurring Silvana Lundberg Work Phone: [facility] Vaccine Off Site Procedures Date Procedure Procedure Detail Performing Clinician Start: 08-20-2025 Plain X-ray of left elbow Silvana Lundberg MD Work Phone: Start: 08-06-2024 MRI of cervical spin e without contrast Silvana Lundberg MD Work Phone: Start: 06-10-2024 X-ray of cervical spine Silvana Lundberg MD Work Phone: Start: 02-18-2023 Repair of hip Jerrodfranky SANCHEZRAMIREZ Start: 10-31-2022 Aerobic microbial culture PHYSICIAN NO FAMILY Start: 10-31-2022 Anaerobic microbial culture PHYSICIAN NO FAMILY Start: 10-31-2022 Investigation of tra nsfusion reaction PHYSICIAN NO FAMILY Start: 10-16-2022 Nerve conduction waylon dies 5-6 studies Anna Palacios PUBLISHING SYSTEMS ANALYST.ADULT CARE MANAGER Work Phone: Start: 10-04-2022 Pulmonary ventilatio n & perfusion imaging Kellen Bryan MD Work Phone: Start: 09-13-2022 Echo tthrc r-t 2d w/ wom-mode compl spec&colr d Kellen Bryan MD Work Phone: Start: 09-13-2022 LVEF ECHO Berta crockett MD Work Phone: Start: 12-28-2021 Blood count complete auto&auto difrntl wbc Karthikeyan Marti MD Work Phone: Start: 01-22-2020 Colonoscopy Karthikeyan fuller MD Work Phone: Start: 01-22-2020 Colsc [...] Injection of hip usi ng fluoroscopic guidance [employer] Comment on above: 100% relief for 4 da ys, slowly started coming back after 5 days back to where level of pain was before injection Start: 10-30-2014 Removal of suture uHe Lundberg Other Start: 10-02-2014 Back structure, excl uding neck (body structure) [employer] Comment on above: L2 to L5, cyst remov al, bone grafting Start: 06-26-2014 Injection of sacroil iac joint using fluoroscopic guidance [employer] Comment on above: Left Start: 04-06-2014 Injection of sacroil iac joint using fluoroscopic guidance [employer] Comment on above: Left SIJI Start: 02-16-2014 Radiofrequency dener vation of spinal facet joint of lumbar vertebra [employer] Comment on above: Right L2-L5 Start: 02-02-2014 Radiofrequency dener vation of spinal facet joint of lumbar vertebra [employer] Comment on above: Left L2-L5 Start: 01-23-2014 General examination of patient Silvana Lundberg Other Start: 12-17-2013 Injection of facet j oint using fluoroscopic guidance [employer] Comment on above: Bilateral L2-L5 Start: 10-20-2013 Injection of facet j oint using fluoroscopic guidance [employer] Comment on above: Biilateral L2-L5 Start: 04-23-2012 Back structure, excl uding neck (body structure) [employer] Comment on above: bone grafting right hand surgery 11 [employer] Comment on above: 1995 Screening for malign ant neoplasm of prostate Silvana Lundberg Other Viral screening Silvana Lundberg Other Plan of Treatment Date Care Activity Detail Author Start: 11-06-2026 Diabetes Screening Diabetes Screening [facility] Start: 09-26-2026 Diabetes Screening Diabetes Screening [facility] Start: 05-30-2026 PROSTATE CANCER SCREENING DISCUSSION PROSTATE CANCER SCREENING DISCUSSION [facility] Start: 10-16-2025 DIABETES SCREEN DIABETES SCREEN [facility] Start: 10-16-2025 Diabetes Screening Diabetes Screening [facility] Start: 10-06-2025 DIABETES SCREEN DIABETES SCREEN [facility] Start: 12-28-2024 DIABETES SCREEN DIABETES SCREEN [facility] Start: 12-22-2024 Influenza [facility] Start: 12-15-2024 End: 12-15-2024 ambulatory 12/15/2024 10:40 AM EDT Visit (SP) Office Hematology/Oncology [address] [place] [address] Noe Elizondo MD [address] [place] [address] 1 year ROBBY / Willi pt Hematology/Oncology Comment on above: 1 year ROBBY / Willi pt Start: 12-15-2024 End: 12-15-2024 Patient encounter procedure 12/15/2024 10:15 AM EDT Office Visit [facility] [address] [place] [address] 12/10-Lvm to confirm date & time of labs [facility] Comment on above: 12/10-Lvm to confirm date & time of la bs Start: 12-10-2024 End: 03-11-2025 [id number] [Mass/volume] in Serum or Plasma B2 MICROGLOBULIN Lab Routine Monoclonal gammopathy Expected: 12/10/2024, Expires: 03/11/2025 [facility] Comment on above: Expected: 12/10/2024, Expires: Start: 12-10-2024 End: 03-11-2025 Calcium [Mass/volume] in Serum or Plasma CALCIUM, TOTAL Lab Routine Monoclonal gammopathy Expected: 12/10/2024, Expires: 03/11/2025 [facility] Comment on above: Expected: 12/10/2024, Expires: Start: 12-10-2024 End: 03-11-2025 CBC W Auto Differential panel - Blood COMPLETE BLOOD COUNT AND DIFFERENTIAL Lab Routine Monoclonal gammopathy Expected: 12/10/2024, Expires: 03/11/[address] [facility] Work Phone: Comment on above: Expected: 12/10/2024, Expires: Start: 12-10-2024 End: 03-11-2025 Comprehensive metabolic 2000 panel - Serum or Plasma COMPREHENSIVE METABOLIC PANEL Lab Routine Monoclonal gammopathy Expected: 12/10/2024, Expires: 03/11/2025 [facility] Comment on above: Expected: 12/10/2024, Expires: Start: 12-10-2024 End: 03-11-2025 Lactate dehydrogenase [Enzymatic activity/volume] in Serum or Plasma LACTATE DEHYDROGENASE Lab Routine Monoclonal gammopathy Expected: 12/10/2024, Expires: 03/11/2025 [facility] Comment on above: Expected: 12/10/2024, Expires: Start: 12-10-2024 End: 03-11-2025 MONOCLONAL PROTEIN, SERUM (BLOOD) MONOCLONAL PROTEIN, SERUM (BLOOD) Lab Routine Monoclonal gammopathy Expected: 12/10/2024, Expires: 03/11/2025 [facility] Comment on above: Expected: 12/10/2024, Expires: Start: 12-10-2024 End: 03-11-2025 Phosphate [Mass/volume] in Serum or Plasma PHOSPHORUS INORGANIC Lab Routine Monoclonal gammopathy Expected: 12/10/2024, Expires: 03/11/2025 [facility] Comment on above: Expected: 12/10/2024, Expires: Start: 12-10-2024 End: 03-11-2025 Protein [Mass/volume] in Serum or Plasma PROTEIN, TOTAL Lab Routine Monoclonal gammopathy Expected: 12/10/2024, Expires: 03/11/2025 [facility] Comment on above: Expected: 12/10/2024, Expires: Start: 12-10-2024 End: 03-11-2025 PROTEIN ELECTROPHORESIS SERUM W/INTERP PROTEIN ELECTROPHORESIS SERUM W/INTERP Lab Routine Monoclonal gammopathy Expected: 12/10/2024, Expires: 03/11/2025 [facility] Comment on above: Expected: 12/10/2024, Expires: Start: 12-10-2024 End: 03-11-2025 Urate [Mass/volume] in Serum or Plasma URIC ACID Lab Routine Monoclonal gammopathy Expected: 12/10/2024, Expires: 03/11/2025 [facility] Comment on above: Expected: 12/10/2024, Expires: Start: 12-03-2024 End: 12-03-2024 ambulatory Hematology/Oncology Comment on above: 1 year ROBBY / Willi pt Start: 11-26-2024 End: 11-26-2024 Patient encounter procedure 11/26/2024 9:30 AM EDT Office Visit [facility] [address] [place] [address] [place] [address] 1 year lab [facility] Comment on above: 1 year lab Start: 09-03-2024 Covid-19 Vaccine ( season) Covid-19 Vaccine () [facility] Start: 07-08-2024 End: 07-08-2024 Patient encounter procedure 07/08/2024 10:00 AM EDT Office Visit Endocrinology [address] [id number] Alysha Emanuel MD [address] [place] [address] Follow Up Endocrinology Comment on above: Follow Up Start: 07-02-2024 End: 07-02-2024 Patient encounter procedure 07/02/2024 1:40 PM EDT Appointment Radiology [address] [place], [place] [id number] [facility] Comment on above: [facility] Start: 05-27-2024 End: 05-27-2024 Patient encounter procedure 05/27/2024 8:20 AM EST Appointment Radiology [address] [place] [address] [facility] Comment on above: [facility] [facility] Start: 05-13-2024 Patient referral [facility] Work Phone: Start: 05-01-2024 Covid-19 Vaccine ( season) Covid-19 Vaccine () [facility] Start: 04-23-2024 Medicare Advantage Annual Wellness Visit Medicare Advantage Annual Wellness Visit [facility] Start: 02-08-2024 End: 05-09-2024 25-hydroxyvitamin D3 [Mass/volume] in Serum or Plasma VITAMIN D 25 HYDROXY Lab Routine Closed fracture of hip, left, with delayed healing, subsequent encounter High serum parathyroid hormone (PTH) Other hyperparathyroidism (HCC) Osteoporosis, unspecified osteoporosis type, unspecified pathological fracture presence Expected: 02/08/2024, Expires: 05/09/2024 [facility] Comment on above: Expected: 02/08/2024, Expires: Start: 02-08-2024 End: 05-09-2024 BIOAVAILABLE TESTOSTERONE, ADULT MALE BIOAVAILABLE TESTOSTERONE, ADULT MALE Lab Routine Closed fracture of hip, left, with delayed healing, subsequent encounter High serum parathyroid hormone (PTH) Other hyperparathyroidism (HCC) Osteoporosis, unspecified osteoporosis type, unspecified pathological fracture presence Expected: 02/08/2024, Expires: 05/09/2024 [facility] Comment on above: Expected: 02/08/2024, Expires: Start: 02-08-2024 End: 05-09-2024 Magnesium [Mass/volume] in Serum or Plasma MAGNESIUM Lab Routine Closed fracture of hip, left, with delayed healing, subsequent encounter High serum parathyroid hormone (PTH) Other hyperparathyroidism (HCC) Osteoporosis, unspecified osteoporosis type, unspecified pathological fracture presence Expected: 02/08/2024, Expires: 05/09/2024 [facility] Comment on above: Expected: 02/08/2024, Expires: Start: 02-08-2024 End: 05-09-2024 Parathyrin.intact [Mass/volume] in Serum or Plasma PTH INTACT Lab Routine Closed fracture of hip, left, with delayed healing, subsequent encounter High serum parathyroid hormone (PTH) Other hyperparathyroidism (HCC) Osteoporosis, unspecified osteoporosis type, unspecified pathological fracture presence Expected: 02/08/2024, Expires: 05/09/2024 [facility] Comment on above: Expected: 02/08/2024, Expires: Start: 02-08-2024 End: 05-09-2024 Renal function 2000 panel - Serum or Plasma RENAL FUNCTION PANEL Lab Routine Closed fracture of hip, left, with delayed healing, subsequent encounter High serum parathyroid hormone (PTH) Other hyperparathyroidism (HCC) Osteoporosis, unspecified osteoporosis type, unspecified pathological fracture presence Expected: 02/08/2024, Expires: 05/09/2024 [facility] Comment on above: Expected: 02/08/2024, Expires: Start: 12-23-2023 Covid-19 Vaccine () Covid-19 Vaccine () [facility] Start: 12-23-2023 Influenza vaccination [facility] Start: 12-14-2023 End: 12-14-2023 Patient encounter procedure 12/14/2023 1:00 PM EDT Office Visit Endocrinology [address] [phone] Alysha Emanuel MD [address] [id number] Pt needs appt with me please or Dr Domo Garcia. Thank you so much Endocrinology Comment on above: Pt needs appt with me please or Dr Domo Garcia. 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 [facility] Comment on above: Folow up- Delayed union of closed fractu re of hip Start: 11-28-2023 End: 11-28-2023 ambulatory 11/28/2023 10:00 AM EDT Visit (SP) Office Hematology/Oncology [address] [place] [address] [place] [address] Karthikeyan Marti MD [address] [place] [address] 6 month lab Hematology/Oncology Comment on above: 6 month lab Start: 11-21-2023 End: 11-21-2023 Patient encounter procedure 11/21/2023 8:30 AM EDT Office Visit [facility] [address] [place] [address] [place] [address] 6 month lab [facility] Comment on above: 6 month lab Start: 12-22-2022 Covid-19 Vaccine ( season) Covid-19 Vaccine ( season) [facility] Start: 12-22-2022 Influenza vaccination [facility] Start: 12-11-2022 Hepatitis B core antibody measurement [facility] Start: 12-11-2022 [facility] Start: 10-31-2022 Aerobic Culture Aerobic Culture [facility] Start: 10-31-2022 Anaerobic Culture Anaerobic Culture [facility] Start: 10-31-2022 Microscopic observation [Identifier] in Unspecified specimen by Gram stain Gram Stain [facility] Start: 10-31-2022 [facility] Start: 10-17-2022 End: 12-17-2022 C reactive protein [Mass/volume] in Serum or Plasma C-REACTIVE PROTEIN (CRP) Lab Routine Ankylosing spondylitis of multiple sites in spine (HCC) Expected: 10/17/2022, Expires: 12/17/[address] [facility] Work Phone: Comment on above: Expected: 10/17/2022, Expires: 3 Start: 10-17-2022 End: 12-17-2022 Erythrocyte sedimentation rate SED RATE WESTERGREN Lab Routine Ankylosing spondylitis of multiple sites in spine (HCC) Expected: 10/17/2022, Expires: 12/17/[address] [facility] Work Phone: Comment on above: Expected: 10/17/2022, Expires: 3 Start: 10-06-2022 End: 12-06-2022 Alpha tocopherol [Mass/volume] in Serum or Plasma [facility] Work Phone: Comment on above: Expected: 10/06/2022, Expires: 3 Start: 10-06-2022 End: 12-06-2022 COPPER BLOOD [facility] Work Phone: Comment on above: Expected: 10/06/2022, Expires: 3 Start: 10-06-2022 End: 12-06-2022 Hemoglobin A1c in Blood [facility] Work Phone: Comment on above: Expected: 10/06/2022, Expires: 3 Start: 10-06-2022 End: 12-06-2022 IMMUNOFIXATION SCREEN, SERUM [facility] Work Phone: Comment on above: Expected: 10/06/2022, Expires: 3 Start: 10-06-2022 End: 12-06-2022 KAPPA/KEANE,FREE,SER [facility] Work Phone: Comment on above: Expected: 10/06/2022, Expires: 3 Start: 10-06-2022 End: 12-06-2022 Pyridoxine [Mass/volume] in Serum or Plasma [facility] Work Phone: Comment on above: Expected: 10/06/2022, Expires: 3 Start: 10-06-2022 End: 12-06-2022 VITAMIN B1 (THIAMINE), WHOLE BLOOD [facility] Work Phone: Comment on above: Expected: 10/06/2022, Expires: 3 Start: 10-06-2022 End: 12-06-2022 Zinc [Mass/volume] in Serum or Plasma [facility] Work Phone: Comment on above: Expected: 10/06/2022, Expires: 3 Start: 07-25-2022 Annual Wellness Visit (AWV) Annual Wellness Visit (AWV) [facility] Start: 04-23-2022 DEPRESSION ASSESSMENT DEPRESSION ASSESSMENT [facility] Start: 12-28-2021 End: 02-27-2022 Fibrin D-dimer FEU [Mass/volume] in Platelet poor plasma D-DIMER Lab Routine Acute deep vein thrombosis (DVT) of distal end of left lower extremity (HCC) Expected: 12/28/2021, Expires: 02/27/[address] [facility] Work Phone: Comment on above: Expected: 12/28/2021, Expires: 2 Start: 12-22-2021 End: 02-21-2022 APC RESISTANCE APC RESISTANCE Lab Routine Acute deep vein thrombosis (DVT) of distal end of left lower extremity (HCC) Expected: 12/22/2021 (Approximate), Expires: 02/21/[address] [facility] Work Phone: Comment on above: Expected: 12/22/2021 (Approximate), Expi res: 02/21/2022 Start: 12-22-2021 End: 02-21-2022 B 2 GPI IGG & IGM B 2 GPI IGG & IGM Lab Routine Acute deep vein thrombosis (DVT) of distal end of left lower extremity (HCC) Expected: 12/22/2021 (Approximate), Expires: 02/21/[address] [facility] Work Phone: Comment on above: Expected: 12/22/2021 (Approximate), Expi res: 02/21/2022 Start: 12-22-2021 End: 02-21-2022 Cardiolipin IgG and IgM panel - Serum ANTI-CARDIOLIPIN AB Lab Routine Acute deep vein thrombosis (DVT) of distal end of left lower extremity (HCC) Expected: 12/22/2021 (Approximate), Expires: 02/21/[address] [facility] Work Phone: Comment on above: Expected: 12/22/2021 (Approximate), Expi res: 02/21/2022 Start: 12-22-2021 End: 02-21-2022 CBC W Auto Differential panel - Blood CBC + DIFF Lab Routine Acute deep vein thrombosis (DVT) of distal end of left lower extremity (HCC) Expected: 12/22/2021 (Approximate), Expires: 02/21/[address] [facility] Work Phone: Comment on above: Expected: 12/22/2021 (Approximate), Expi res: 02/21/2022 Start: 12-22-2021 End: 02-21-2022 Comprehensive metabolic 2000 panel - Serum or Plasma COMP METABOLIC PANEL Lab Routine Acute deep vein thrombosis (DVT) of distal end of left lower extremity (HCC) Expected: 12/22/2021 (Approximate), Expires: 02/21/[address] 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 Work Phone: Comment on above: Expected: 12/22/2021 (Approximate), Expi res: 02/21/2022 Start: 12-22-2021 Influenza vaccination [facility] Start: 12-22-2021 End: 02-21-2022 Lactate dehydrogenase [Enzymatic activity/volume] in Serum or Plasma LD LACTATE DEHYDRO Lab Routine Acute deep vein thrombosis (DVT) of distal end of left lower extremity (HCC) Expected: 12/22/2021 (Approximate), Expires: 02/21/[address] [facility] Work Phone: Comment on above: Expected: 12/22/2021 (Approximate), Expi res: 02/21/2022 Start: 12-22-2021 End: 02-21-[address]US ANTICOAG [address] Lab Routine Acute deep vein thrombosis (DVT) of distal end of left lower extremity (HCC) Expected: 12/22/2021 (Approximate), Expires: 02/21/[address] [facility] Work Phone: Comment on above: Expected: 12/22/2021 (Approximate), Expi res: 02/21/2022 Start: 01-21-2021 Colonoscopy COLONOSCOPY [facility] Start: 01-21-2021 COLORECTAL CANCER SCREENING COLORECTAL CANCER SCREENING [facility] Start: 01-21-2021 Screening for malignant neoplasm of colon [facility] Start: 2020 RSV Vaccine (1 - 1-dose 60+ series) RSV Vaccine (1 - 1-dose 60+ series) [facility] Start: 2020 RSV Vaccine (1 - Risk 60-74 years 1-dose series) RSV Vaccine (1 - Risk 60-74 years 1-dose series) [facility] Start: 12-16-2019 DIABETES SCREEN DIABETES SCREEN [facility] Start: 09-05-2015 PROSTATE CANCER SCREENING DISCUSSION PROSTATE CANCER SCREENING DISCUSSION [facility] Start: 09-05-2015 Prostate specific antigen measurement Prostate Cancer Screening Discussion [facility] Start: 08-14-2015 PNEUMOCOCCAL (2 - PCV) PNEUMOCOCCAL (2 - PCV) [facility] Start: 08-14-2015 Pneumococcal vaccination [facility] Start: 08-14-2015 Pneumococcal Vaccine: 50+ (2 of 2 - PCV) Pneumococcal Vaccine: 50+ (2 of 2 - PCV) [facility] Start: 01-12-2015 Urine microalbumin profile DTaP,Tdap,Td Vaccine (1 - Tdap) [facility] Start: 2010 Shingles vaccine (1 of 2) Shingles vaccine (1 of 2) [facility] Start: 2010 SHINGRIX VACCINE (1 of 2) SHINGRIX VACCINE (1 of 2) [facility] Start: 2005 COLOGUARD (FIT-DNA) COLOGUARD (FIT-DNA) [facility] Start: 2005 Colonoscopy COLONOSCOPY [facility] Start: 2005 COLORECTAL CANCER SCREENING COLORECTAL CANCER SCREENING [facility] Start: [address] COLONOGRAPHY [facility] Start: 2005 FECAL OCCULT BLOOD FECAL OCCULT BLOOD [facility] Start: 2005 Prostate specific antigen measurement Prostate Cancer Screening Discussion [facility] Start: 2005 Screening for malignant neoplasm of colon [facility] Start: 2005 SIGMOIDOSCOPY SIGMOIDOSCOPY [facility] Start: 2000 Lipid panel Lipids [facility] Start: 09-05-1995 Lipid 1996 panel - Serum or Plasma Lipid Screening [facility] Start: 09-05-1995 Lipid panel Lipid Screening [facility] Start: 09-05-1995 LIPID SCREEN LIPID SCREEN [facility] Start: 09-05-1979 DTaP/Tdap/Td vaccine (1 - Tdap) DTaP/Tdap/Td vaccine (1 - Tdap) [facility] Start: 09-05-1979 SHINGRIX VACCINE (1 of 2) SHINGRIX VACCINE (1 of 2) [facility] Start: 09-05-1979 Urine microalbumin profile [facility] Start: 1978 Anxiety Screening Anxiety Screening [facility] Start: 1978 HEPATITIS C SCREENING HEPATITIS C SCREENING [facility] Start: 1978 Hepatitis C screening [facility] Start: 1978 HIV SCREENING HIV SCREENING [facility] Start: 1978 HIV screening HIV Screening [facility] Start: 09-05-1975 HIV screening HIV screen [facility] Start: 1972 Depression Screen Depression Screen [facility] Start: 1966 PNEUMOCOCCAL (1 - PCV) PNEUMOCOCCAL (1 - PCV) [facility] Start: 1965 COVID-19 VACCINE (#1) COVID-19 VACCINE (#1) [facility] APC RESISTANCE APC RESISTANCE L ab Routine Acute deep vein thrombosis (DVT) of distal end of left lower extremity (HCC) 12/28/2021 2:59 PM EDT [facility] Work Phone: aPTT in Platelet poo r plasma by Coagulation assay ACTIVATED PTT Lab Routine Acute deep vein thrombosis (DVT) of distal end of left lower extremity ([facility]) 12/28/2021 2:59 PM EDT [facility] Work Phone: B 2 GPI IGG & IGM B 2 GPI IGG & IGM Lab Routine Acute deep vein thrombosis (DVT) of distal end of left lower extremity ([facility]) 12/28/2021 2:59 PM EDT [facility] Work Phone: Bacteria identified in Unspecified specimen by Aerobe culture [facility] Bacteria identified in Unspecified specimen by Anaerobe culture [facility] BETA 2 GLYCOPROTEIN, IGG BETA 2 GLYCOPROTEIN, IGG Lab Routine Acute deep vein thrombosis (DVT) of distal end of left lower extremity ([facility]) 12/28/2021 2:59 [address] [facility] Work Phone: BETA 2 GLYCOPROTEIN, IGM BETA 2 GLYCOPROTEIN, IGM Lab Routine Acute deep vein thrombosis (DVT) of distal end of left lower extremity ([facility]) 12/28/2021 2:59 PM [address] [facility] Work Phone: CALCIUM, 24 HR URINE CALCIUM, 24 HR URINE Lab Routine Closed fracture of hip, left, with delayed healing, subsequent encounter High serum parathyroid hormone (PTH) Other hyperparathyroidism ([facility]) Osteoporosis, unspecified osteoporosis type, unspecified pathological fracture presence Ordered: 02/08/2024 [facility] Comment on above: Ordered: 02/08/2024 Cardiolipin IgA Ab [Units/volume] in Serum by Immunoassay CARDIOLIPIN IGA ABS Lab Routine Acute deep vein thrombosis (DVT) of distal end of left lower extremity ([facility]) 12/28/2021 2:[address] [facility] Work Phone: CARDIOLIPIN IGG ABS CARDIOLIPIN IGG ABS Lab Routine Acute deep vein thrombosis (DVT) of distal end of left lower extremity ([facility]) 12/28/2021 2:59 [address] [facility] Work Phone: Cardiolipin IgG and IgM panel - Serum ANTI-CARDIOLIPIN AB Lab Routine Acute deep vein thrombosis (DVT) of distal end of left lower extremity ([facility]) 12/28/2021 2:59 [address] [facility] Work Phone: CARDIOLIPIN IGM ABS CARDIOLIPIN IGM ABS Lab Routine Acute deep vein thrombosis (DVT) of distal end of left lower extremity (HCC) 12/28/2021 2:59 [address] [facility] Work Phone: End: 12-17-2023 CARDIOPULMONARY EXERCISE TEST CARDIOPULMONARY EXERCISE TEST PFT Routine SOB (shortness of breath) 1 Occurrences starting 11/17/2022 until 12/17/[address] [facility] Work Phone: Comment on above: 1 Occurrences starting 11/17/2022 until 12/17/2023 Citrate [Mass/time] in 24 hour Urine CITRATE 24 HR URINE Lab Routine Closed fracture of hip, left, with delayed healing, subsequent encounter High serum parathyroid hormone (PTH) Other hyperparathyroidism (HCC) Osteoporosis, unspecified osteoporosis type, unspecified pathological fracture presence Ordered: 02/08/2024 [facility] Comment on above: Ordered: 02/08/2024 CREATININE, 24 HOUR URINE CREATININE, 24 HOUR URINE Lab Routine Closed fracture of hip, left, with delayed healing, subsequent encounter High serum parathyroid hormone (PTH) Other hyperparathyroidism (HCC) Osteoporosis, unspecified osteoporosis type, unspecified pathological fracture presence Ordered: 02/08/2024 [facility] Comment on above: Ordered: 02/08/2024 End: 03-09-2025 DXA-FOREARM SKELETON DXA-FOREARM SKELETON Radiology Routine Closed fracture of hip, left, with delayed healing, subsequent encounter High serum parathyroid hormone (PTH) 1 Occurrences starting 02/08/2024 until 03/09/[address] [facility] Work Phone: Comment on above: 1 Occurrences starting 02/08/2024 until 03/09/2025 End: 08-17-2023 ECG COMPLETE ECG COMPLETE ECG Routine POTS (postural orthostatic tachycardia syndrome) 1 Occurrences starting 08/16/2022 until 08/17/[address] [facility] Work Phone: Comment on above: 1 Occurrences starting 08/16/2022 until 08/17/2023 End: 08-17-2023 Echocardiography ECHO Cardiology Routine Exertional dyspnea 1 Occurrences starting 08/16/2022 until 08/17/[address] [facility] Work Phone: Comment on above: 1 Occurrences starting 08/16/2022 until 08/17/2023 End: 10-07-2023 EMG(NEURO/NI) EMG(NEURO/NI) EMG Routine Disturbance of skin sensation 1 Occurrences starting 10/06/2022 until 10/07/[address] [facility] Work Phone: Comment on above: 1 Occurrences starting 10/06/2022 until 10/07/2023 F2 gene mutations fo und [Identifier] in Blood or Tissue by Molecular genetics method Nominal PROTHROMBIN GENE PCR Lab Routine Acute deep vein thrombosis (DVT) of distal end of left lower extremity (HCC) 12/28/2021 2:59 [address] [facility] Work Phone: FOUR EXTRA LT BLUE M AN COAG TUBES FOUR EXTRA LT BLUE MAN COAG TUBES Lab Routine Acute deep vein thrombosis (DVT) of distal end of left lower extremity (HCC) 12/28/2021 2:[address] [facility] Work Phone: LUPUS ANTICOAG PL LUPUS ANTICOAG PL Lab Routine Acute deep vein thrombosis (DVT) of distal end of left lower extremity (HCC) 12/28/2021 2:[address] [facility] Work Phone: LUPUS PANEL LUPUS PANEL Lab Routine Acute deep vein thrombosis (DVT) of distal end of left lower extremity (HCC) 12/28/2021 2:59 PM [address]T [facility] Work Phone: End: 11-16-2023 MRI CARDIAC MORPH FUNC WO/W IVCON MRI CARDIAC MORPH FUNC WO/W IVCON Radiology Routine Dilated cardiomyopathy (HCC) 1 Occurrences starting 10/17/2022 until 11/16/[address] [facility] Work Phone: Comment on above: 1 Occurrences starting 10/17/2022 until 11/16/2023 End: 11-16-2023 MRI CARDIAC VELOCITY FLOW MAP MRI CARDIAC VELOCITY FLOW MAP Radiology Routine Dilated cardiomyopathy (HCC) 1 Occurrences starting 10/17/2022 until 11/16/[address] [facility] Work Phone: Comment on above: 1 Occurrences starting 10/17/2022 until 11/16/2023 OUTSIDE VENDOR CARDI AC OUTPATIENT EXTENDED RHYTHM RECORDING (WITHOUT TELEMETRY) OUTSIDE VENDOR CARDIAC OUTPATIENT EXTENDED RHYTHM RECORDING (WITHOUT TELEMETRY) Holter Routine Lightheadedness POTS (postural orthostatic tachycardia syndrome) Exertional dyspnea Ordered: 08/16/[address] [facility] Work Phone: Comment on above: Ordered: 08/16/2022 Oxalate [Mass/time] in 24 hour Urine OXALATE 24 HR URINE Lab Routine Closed fracture of hip, left, with delayed healing, subsequent encounter High serum parathyroid hormone (PTH) Other hyperparathyroidism (HCC) Osteoporosis, unspecified osteoporosis type, unspecified pathological fracture presence Ordered: 02/08/2024 [facility] Comment on above: Ordered: 02/08/2024 Patient referral [facility] Work Phone: PT panel - Platelet poor plasma by Coagulation assay PROTHROMBIN TIME/PT Lab Routine Acute deep vein thrombosis (DVT) of distal end of left lower extremity (HCC) 12/28/2021 2:59 PM [address] [facility] Work Phone: End: 09-15-2023 Pulmonary ventilation & perfusion imaging NM LUNG VENT / PERF VQ Radiology Routine Exertional dyspnea Other secondary pulmonary hypertension (HCC) 1 Occurrences starting 08/16/2022 until 09/15/[address] [facility] Work Phone: Comment on above: 1 Occurrences starting 08/16/2022 until 09/15/2023 Sodium [Moles/time] in 24 hour Urine SODIUM 24 HR URINE Lab Routine Closed fracture of hip, left, with delayed healing, subsequent encounter High serum parathyroid hormone (PTH) Other hyperparathyroidism (HCC) Osteoporosis, unspecified osteoporosis type, unspecified pathological fracture presence Ordered: 02/08/2024 [facility] Comment on above: Ordered: 02/08/2024 STONE PANEL URINE STONE PANEL UR INE Lab Routine Closed fracture of hip, left, with delayed healing, subsequent encounter High serum parathyroid hormone (PTH) Other hyperparathyroidism (HCC) Osteoporosis, unspecified osteoporosis type, unspecified pathological fracture presence Ordered: 02/08/2024 [facility] Comment on above: Ordered: 02/08/2024 Urate [Mass/time] in 24 hour Urine URIC ACID 24 HR UR Lab Routine Closed fracture of hip, left, with delayed healing, subsequent encounter High serum parathyroid hormone (PTH) Other hyperparathyroidism (HCC) Osteoporosis, unspecified osteoporosis type, unspecified pathological fracture presence Ordered: 02/08/2024 [facility] Comment on above: Ordered: 02/08/2024 US Heart Transthoracic [facility] XR Cervical spine Vi ews W flexion and W extension [facility] XR Elbow - left GE 3 Views [facility] XR Pelvis and Hip - left AP and Lateral frog XR HIP GENERAL 3V PELV/AP/LAT LEFT Radiology Routine Pain 09/27/2023 9:42 AM EDT [facility] Work Phone: End: 12-27-2024 XR Pelvis and Hip - left AP and Lateral frog XR HIP GENERAL 3V PELV/AP/LAT LEFT Radiology Routine Closed fracture of hip, left, with delayed healing, subsequent encounter 1 Occurrences starting 11/28/2023 until 12/27/[address] [facility] Work Phone: Comment on above: 1 Occurrences starting 11/28/2023 until 12/27/2024 XR Pelvis and Hip - left AP and Lateral frog XR HIP GENERAL 3V PELV/AP/LAT LEFT Radiology Routine Closed fracture of hip, left, with delayed healing, subsequent encounter 11/29/2023 9:03 AM EDT [facility] Immunizations Immunization Date Immunization Notes Care Provider Fa [facility] 03-06-2024 COVID-19 (PFIZER) 12Y and older Silvana Lundberg MD Work Phone: [facility] 03-06-2024 influenza, injectabl e, madin seven canine kidney, preservative free Silvana Lundberg MD Work Phone: [facility] 03-06-2024 RSV, preF3, adj, pf Silvana tsang MD Work Phone: [facility] 03-06-2024 influenza virus vaccine, unspecified formulation Panfilo Carranza RN [facility] 03-13-2022 COVID-19 Pfizer (Pediatric) Silvana Lundberg Other [facility] 03-13-2022 influenza virus vaccine, split virus (incl. purified surface antigen) Silvana Lundberg Other [employer] Other 03-13-2022 influenza virus vaccine, unspecified formulation Jerrod BELL [facility] 03-13-2022 influenza, injectabl e, quadrivalent, preservative free [facility] 03-13-2022 SARS-CoV-2 (COVID-19 ) [id number] Jerrod BELL [facility] 05-08-2021 SARS-CoV-2 (COVID-19 ) mRNA BNT-162b2 vax Jerrod BELL [facility] 03-12-2021 influenza virus vaccine, split virus (incl. purified surface antigen) Silvana Lundberg Other [employer] [facility] [employer] Other 03-12-2021 influenza virus vaccine, unspecified formulation Jerrod BELL [facility] 03-12-2021 influenza, injectabl e, quadrivalent, preservative free Karthikeyan Marti MD Work Phone: [facility] 08-06-2020 COVID-19 mRNA,[id number] b2 (Pfizer) Silvana Lundberg Work Phone: [facility] 07-22-2020 COVID-19 vaccine (NORTH) Karthikeyan Marti MD Work Phone: [facility] 07-13-2020 COVID-19 mRNA,[id number] b2 (Pfizer) Silvana Lundberg Work Phone: [facility] 06-21-2020 COVID-19 vaccine (NORTH) Karthikeyan Marti MD Work Phone: [facility] 12-31-2019 influenza virus vaccine, split virus (incl. purified surface antigen) Silvana Lundberg Other [employer] Other 12-31-2019 influenza virus vaccine, unspecified formulation PHYSICIAN [facility] 01-29-2019 influenza virus vaccine, split virus (incl. purified surface antigen) Silvana Lundberg Other [employer] Other 01-29-2019 influenza virus vaccine, unspecified formulation PHYSICIAN [facility] 01-11-2015 tetanus and diphther ia toxoids, adsorbed, preservative free, for adult use (5 Lf of tetanus toxoid and 2 Lf of diphtheria toxoid) Silvana Lundberg Other [facility] 08-13-2014 pneumococcal polysaccharide vaccine, 23 valent Karthikeyan Marti MD Work Phone: [facility] NEGATED: Highlighted row has not occurred!05-04-2020 pneumococcal polysaccharide vaccine, 23 valent Silvana Lundberg Other [employer] Other Payers Date Payer Category Payer Medicare HUMANA MEDICARE HUMANA MEDICARE PPO [id number] 2021-Present [phone] [place] [address] PPO [id number] 2021 Medicare [id number] 2021 Medicare (Managed Care) ДМИТРИЙA Aleksey MANJARREZ [id number] 1960 Unknown [id number] 2.16.840.1.322541.3.579.2. 173 1960 Unknown [id number] 2.16.840.1.308130.3.579.2. 593 1960 Unknown [id number] 2.16.840.1.406637.3.579.2. 593 1960 Unknown [id number] 2.16.840.1.087998.3.579.2. 593 1960 Unknown [id number] 2.16.840.1.605370.3.579.2. 593 1960 Unknown [id number] 2.16.840.1.932148.3.579.2. 593 1960 Unknown [id number] 2.16.840.1.596535.3.579.2. 593 1960 Unknown [id number] 2.16.840.1.247728.3.579.2. 593 1960 Unknown [id number] 2.16.840.1.323270.3.579.2. 593 1960 Unknown [id number] 2.16.840.1.875623.3.579.2. 593 1960 Unknown [id number] 2.16.840.1.105754.3.579.2. 593 1960 Unknown [id number] 2.16.840.1.906872.3.579.2. 593 1960 Unknown [id number] 2.16.840.1.854971.3.579.2. 593 1960 Unknown [id number] 2.16.840.1.961074.3.579.2. 593 1960 Unknown [id number] 2.16.840.1.213047.3.579.2. 593 1960 Unknown [id number] 2.16.840.1.195632.3.579.2. 593 1960 Unknown [id number] 2.16.840.1.035759.3.579.2. 593 1960 Unknown [id number] 2.16.840.1.897646.3.579.2. 593 1960 Unknown [id number] 2.16.840.1.419784.3.579.2. 1259 1960 Unknown [id number] 2.16.840.1.351218.3.579.2. 1259 1960 Unknown [id number] 2.16.840.1.682782.3.579.2. 727 1960 Unknown [id number] 2.16.840.1.559184.3.579.2. 727 1960 Unknown [id number] 2.16.840.1.106959.3.579.2. 727 1960 Unknown [id number] 2.16.840.1.146630.3.579.2. 727 1960 Unknown [id number] 2.16.840.1.057203.3.579.2. 727 1959 Private Health Insurance [id number] Self-pay [id number] Medicare [id number] Unknown [id number] Unknown [id number] Unknown [id number] 2.16.840.1.371034.3.579.2. 593 Unknown [id number] 2.16.840.1.696795.3.579.2. 531 Unknown [id number] 2.16.840.1.774037.3.579.2. 531 Unknown [id number] 2.16.840.1.070384.3.579.2. 531 Social History Date Type Detail Facility [facility] Start: 1960 Sex Assigned At Male [facility] Start: 12-28-2021 End: 02-08-2024 Tobacco smoking status NHIS Ex-smoker [facility] History of tobacco use Cigarette Smoker [facility] Start: 09-16-2021 End: 02-08-2024 Alcohol intake Current non-drinker of alcohol (finding) [facility] Start: 1960 Sex Assigned At Not on file [facility] Start: 09-11-2021 End: 10-16-2022 Exposure to SARS-CoV-2 (event) Not sure [facility] History of tobacco use Current smoker [facility] Start: 12-28-2021 End: 08-29-2022 Cigarettes smoked current (pack per day) - Reported 2 [facility] History of tobacco use Passive smoker [facility] Start: 12-28-2021 End: 02-08-2024 Tobacco use and exposure Smokeless tobacco non-user [facility] Start: 12-28-2021 Tobacco Comment quit 1997 [facility] Start: 08-29-2022 End: 11-17-2022 Sex Assigned At Male [facility] smoking consumption unknown DILAN [employer] Phone: Start: 03-24-2012 Adult Depression Screening Assessment 2 [facility] Start: 07-06-2023 End: 07-06-2023 Tobacco smoking status NHIS Never smoked tobacco (finding) [facility] Start: 05-13-2024 End: 09-25-2024 Sex Male (finding) [facility] Medical Equipment Procedure Code Equipment Code Equipment Origin al Text Equipment Identifier Dates Graft Infuse 18m m Large Ii Bovine Collagen Rhbmp-2 26mm Bone Absorbable - [id number] Start: 09-01-2016 Connector Chika 0d Small Titanium Andrew Spine - [id number] Start: 09-01-2016 Substitute Mastergraft Bone Graft Matrix Block Extension Void Filler 10ml - [id number] Start: 09-01-2016 Eui-Hc-P-Kind Im plant - [id number] Start: 12-01-2015 Comment on above: Description: g7 osse eduardo acetabular shell 4 hole cementless Fro-Pw-H-Kind Im plant - [id number] Start: 12-01-2015 Comment on above: Description: g7 acet abular screw Ntz-Cq-F-Kind Im plant - [id number] Start: 12-01-2015 Comment on above: Description: g7 acet abular liner neutral Zsf-Ks-Z-Kind Im plant - [id number] Start: 12-01-2015 Comment on above: Description: taperlo c complete primary femoral porous coated stem reduced distal high offset type 1 taper Cage Spnl Tri 8x 23mm 6d 11mm - [id number] Start: 09-01-2016 Screw Chika 3 Mali nium Set Julius Spine - [id number] Start: 09-01-2016 Head G7 40mm Bio lox Delta Femoral Hip - [id number] Start: 12-01-2015 Comment on above: Description: ceramic head Sleeve G7 -6mm O ffset Taper Biolox Delta Option Titanium Centering Type 1 - [id number] Start: 12-01-2015 Comment on above: Description: taper a dapter Andrew Chika 3 6mm 48 0mm Spinal - [id number] Start: 09-01-2016 Screw Chika 3 7.5m m Titanium 40mm Bone Polyaxial Spine Thoracolumbar - [id number] Start: 09-01-2016 Screw Chika 3 7.5m m Titanium 45mm Bone Polyaxial Spine Thoracolumbar - [id number] Start: 09-01-2016 Canones Chika 8.5mm 7 0mm Spinal Polyaxial Ilium - [id number] Start: 09-01-2016 Screw Chika 3 6.5m m Titanium 45mm Bone Polyaxial Spine Thoracolumbar - [id number] Start: 09-01-2016 USE WITH TERIPAR ATIDE PENS ONCE TIMES DAILY [id number] Start: 03-31-2024 Goals Date Patient Goal Desired Activity /State Functional Status Date Assessment Result Facility 01-04-2024 Functional Status N/A [facility] 12-25-2023 Functional Status N/A [facility] 07-16-2023 Functional Status N/A [facility] 05-01-2022 Functional Status N/A [facility] 11-02-2016 Are you deaf, or do you have serious difficulty hearing No 11/02/2016 8:30 AM EDT Anna RodriguezRn)(Hist), RN No [facility] 11-02-2016 Are you blind, or do you have serious difficulty seeing, even when wearing glasses No 11/02/2016 8:30 AM EDT Anna RodriguezRn)(Hist), RN No [facility] 11-02-2016 Do you have serious difficulty walking or climbing stairs Yes 11/02/2016 8:30 AM EDT Anna RodriguezRn)(Hist), RN Yes [facility] 11-02-2016 Do you have difficul ty dressing or bathing Yes 11/02/2016 8:30 AM EDT Anna RodriguezRn)(Hist), RN Yes [facility] 11-02-2016 Because of a physica l, mental, or emotional condition, do you have difficulty doing errands alone such as visiting a physician's office or shopping Yes 11/02/2016 8:30 AM EDT Anna RodriguezRn)(Hist), RN Yes [facility] Mental Status Date Assessment Result Facility 11-02-2016 Because of a physica l, mental, or emotional condition, do you have serious difficulty concentrating, remembering, or making decisions No 11/02/2016 8:30 AM EDT Anna Rodriguez (Rn)(Hist), RN No [facility] Clinical Notes 12-09-2016 to 12-10-2024 Telephone Encounter - Sheba Jamison - 12/10/2024 10:27 AM EDTTelephone Encounter - Sheba Jamison - 12/10/2024 10:27 AM EDTTelephone Encounter - Sheba Jamison - 12/10/2024 9:18 AM EDT Note Date & Type Note Facility 12-10-2024 Telephone encounter Note Form atting of this note might be different from the original. Lvm for patient to call back to confirm the date & time of lab appointment. ABEL Rhoades [facility] 12-10-2024 Miscellaneous Notes Formattin g of this note might be different from the original. Lvm for patient to call back to confirm the date & time of lab appointment. ABEL Rhoades Scheduled patient for lab on 12/15/2024 at 10:15 am. ABEL Rhoades Pt is a [facility]. No lab appt scheduled or labs ordered Mehul: labs pended, as previously obtained, please review and sign (add, if needed) RTC 12/15 PSS: Pt will need lab appt prior to Mehul, if orders added, please Panfilo Carranza RN documented in this encounter [facility] 12-10-2024 Telephone encounter Note Form atting of this note might be different from the original. Scheduled patient for lab on 12/15/2024 at 10:15 am. Sheba S Rumer, PSS [facility] 12-10-2024 Telephone encounter Note Form atting of this note might be different from the original. Pt is a ROBBY of [facility]. No lab appt scheduled or labs ordered Mehul: labs pended, as previously obtained, please review and sign (add, if needed) RTC 12/15 PSS: Pt will need lab appt prior to Mehul, if orders added, please Panfilo Carranza RN [facility] 10-06-2024 Evaluation note Diagnosis Onset Date Resolution Cervical spondylosis acute October 06, 2024 9:57am Left cervical radiculopathy acute October 06, 2024 9:57am Other chronic pain acute September 212024 9:57am Cervical spondylosis acute October 28, 2024 2:57pm Left cervical radiculopathy acute October 28, 2024 2:57pm Other chronic pain acute October 282024 2:57pm Cervical spondylosis acute 2024 8:55am Epicondylitis, lateral, left acute November 25, 2024 8:55am Other chronic pain acute November 25, 2024 8:55am [facility] Work Phone: 1(137) 781-417805-19-2025 Evaluation note* Diagnosis Onset Date Resolution Status Admit Date Cervical spondylosis acute September 08, 2024 10:05am Left cervical radiculopathy acute September 08, 2024 10:05am Other chronic pain acute September 082024 10:05am Bronchitis acute September 08, 2024 1:22pm Cervical spondylosis acute October 06, 2024 9:57am Left cervical radiculopathy acute October 06, 2024 9:57am Other chronic pain acute September 212024 9:57am Cervical spondylosis acute October 28, 2024 2:57pm Left cervical radiculopathy acute October 28, 2024 2:57pm Other chronic pain acute October 282024 2:57pm Cervical spondylosis acute 2024 8:55am Epicondylitis, lateral, left acute November 25, 2024 8:55am Other chronic pain acute November 25, 2024 8:55am [facility] Work Phone: 1([phone]) 854-351504-29-2025 Evaluation note* Diagnosis Onset Date Resolution Status Admit Date Cervical spondylosis acute Apri l 2024 9:23am Epicondylitis, lateral, left acute August 19, 2024 9:23am Left cervical radiculopathy acute August 19, 2024 9:23am Other chronic pain acute August 19, 2024 9:23am Cervical spondylosis acute September 08, 2024 10:05am Left cervical radiculopathy acute September 08, 2024 10:05am Other chronic pain acute September 082024 10:05am Bronchitis acute September 08, 2024 1:22pm Cervical spondylosis acute October 06, 2024 9:57am Left cervical radiculopathy acute October 06, 2024 9:57am Other chronic pain acute September 212024 9:57am Cervical spondylosis acute October 28, 2024 2:57pm Left cervical radiculopathy acute October 28, 2024 2:57pm Other chronic pain acute October 282024 2:57pm [facility] Work Phone: 1(547) 460-522704-09-2025 Telephone encounter Note* Telephone Encounter - Armida Vazquez MA - 07/30/2024 5:07 PM EDT Images from the original note were not included. Most recent Endocrinology visit: Last encounter Visit on 02/08/2024 (with Alysha Emanuel) 02/08/2024 in [facility] with ALYSHA EMANUEL for Other hyperparathyroidism (HCC) No future appt scheduled in ENDO. Please route to local appt/scheduling pool if appt is needed? Requested Prescriptions Pending Prescriptions Disp Refills cholecalciferol, Vitamin D3, (VITAMIN D3) 1,250 mcg (50,000 unit) cap capsule [Pharmacy Med Name: VITAMIN D3 1,250 MCG CAPSULE] 12 capsule 1 Sig: TAKE 1 CAPSULE BY MOUTH ONE TIME A WEEK. Hemoglobin A1c: None on file in the last 12 months Latest Ref Rng & Units 09/27/2023 10/06/2022 09/27/2016 TSH TSH 0.270 - 4.200 mIU/L 0.957 2.100 2.740 Free T3: None on file in the last 12 months Free T4: None on file in the last 12 months Thyroglobulin: None on file in the last 12 months Latest Ref Rng & Units 03/17/2024 09/27/2023 Vitamin D Vitamin D 25 Hydroxy 31.0 - 80.0 ng/mL 75.7 19.7 Latest Ref Rng & Units 11/07/2023 09/27/2023 05/16/2023 Hematocrit Hematocrit 39.0 - 51.0 % 39.6 44.7 41.4 Latest Ref Rng & Units 03/17/2024 11/07/2023 09/27/2023 Creatinine Creatinine 0.73 - 1.22 mg/dL 1.35 1.43 1.13 Latest Ref Rng & Units 03/17/2024 11/07/2023 09/27/2023 eGFR EGFR >=60 mL/min/1.73m 59 55 73 Latest Ref Rng & Units 03/17/2024 11/07/2023 09/27/2023 Potassium Potassium 3.7 - 5.1 mmol/L 4.6 4.5 4.8 Latest Ref Rng & Units 03/17/2024 Testosterone Testosterone 193 - 824 ng/dL 764 IGF: None on file in the last 12 months Prolactin: None on file in the last 12 months [facility]04-09-2025 Miscellaneous Notes* Telephone Encounter - Armida Vazquez MA - 07/30/2024 5:07 PM EDT Images from the original note were not included. Most recent Endocrinology visit: Last encounter Visit on 02/08/2024 (with Alysha Emanuel) 02/08/2024 in [facility] with ALYSHA EMANUEL for Other hyperparathyroidism (HCC) No future appt scheduled in ENDO. Please route to local appt/scheduling pool if appt is needed? Requested Prescriptions Pending Prescriptions Disp Refills cholecalciferol, Vitamin D3, (VITAMIN D3) 1,250 mcg (50,000 unit) cap capsule [Pharmacy Med Name: VITAMIN D3 1,250 MCG CAPSULE] 12 capsule 1 Sig: TAKE 1 CAPSULE BY MOUTH ONE TIME A WEEK. Hemoglobin A1c: None on file in the last 12 months Latest Ref Rng & Units 09/27/2023 10/06/2022 09/27/2016 TSH TSH 0.270 - 4.200 mIU/L 0.957 2.100 2.740 Free T3: None on file in the last 12 months Free T4: None on file in the last 12 months Thyroglobulin: None on file in the last 12 months Latest Ref Rng & Units 03/17/2024 09/27/2023 Vitamin D Vitamin D 25 Hydroxy 31.0 - 80.0 ng/mL 75.7 19.7 Latest Ref Rng & Units 11/07/2023 09/27/2023 05/16/2023 Hematocrit Hematocrit 39.0 - 51.0 % 39.6 44.7 41.4 Latest Ref Rng & Units 03/17/2024 11/07/2023 09/27/2023 Creatinine Creatinine 0.73 - 1.22 mg/dL 1.35 1.43 1.13 Latest Ref Rng & Units 03/17/2024 11/07/2023 09/27/2023 eGFR EGFR >=60 mL/min/1.73m 59 55 73 Latest Ref Rng & Units 03/17/2024 11/07/2023 09/27/2023 Potassium Potassium 3.7 - 5.1 mmol/L 4.6 4.5 4.8 Latest Ref Rng & Units 03/17/2024 Testosterone Testosterone 193 - 824 ng/dL 764 IGF: None on file in the last 12 months Prolactin: None on file in the last 12 months [facility] Evaluation note* Diagnosis Onset Date Resolution Status Admit Date Cervical spondylosis acute Apri l 2024 9:23am Left shoulder pain acute July 23, 2024 9:23am Occipital neuralgia of left side acu te July 23, 2024 9:23am Other chronic pain acute July 23, 2024 9:23am Cervical spondylosis acute Apri l 2024 9:23am Epicondylitis, lateral, left acute August 19, 2024 9:23am Left cervical radiculopathy acute August 19, 2024 9:23am Other chronic pain acute August 19, 2024 9:23am Cervical spondylosis acute September 08, 2024 10:05am Left cervical radiculopathy acute September 08, 2024 10:05am Other chronic pain acute September 082024 10:05am Bronchitis acute September 08, 2024 1:22pm [facility] Work Phone: 1(451) 281-267303-31-2025 NoteUT Cardiology - [facility] Subjective Elena Felix is a 63 y.o. year old male patient being seen for Hypertension, Hyperlipidemia, and Cardiomyopathy Patient Active Problem List Diagnosis Acute deep vein thrombosis (DVT) of femoral vein of both lower extremities (CMS/HCC) Ankylosing spondylitis (CMS/HCC) Arthritis Back pain Low back pain BPH with urinary obstruction C. difficile colitis Patricia infection Cardiomyopathy (CMS/HCC) Cerebrovascular small vessel disease Chronic prostatitis Chronic systolic heart failure (CMS/HCC) Disorder of peripheral nervous system Elevated troponin level Epididymal cyst Flatback syndrome Former smoker Gastroesophageal reflux disease Heart disease Hyperlipidemia Infection Kidney stones Labral tear of hip, degenerative Major depressive disorder with single episode, in remission Body mass index (BMI) 45.0-49.9, adult (CMS/HCC) Morbid obesity with BMI of 40.0-44.9, adult (CMS/HCC) Nonischemic congestive cardiomyopathy (CMS/HCC) Obstructive sleep apnea syndrome Pain in right hip Pneumonia of left lower lobe due to infectious organism Postoperative wound infection Wound infection Primary osteoarthritis of right hip Right lumbar radiculitis S/P lumbar laminectomy Sinus tachycardia Tachycardia Urinary frequency Postural orthostatic tachycardia syndrome (POTS) Autoimmune autonomic neuropathy Erectile dysfunction Inclusion cyst Coronary artery disease involving king salmon coronary artery of king salmon heart without angina pectoris Essential hypertension HPI Patient is with history of nonischemic cardiomyopathy, chronic systolic heart failure, mild nonobstructive coronary artery disease, hypertension, hyperlipidemia, orthostatic hypotension which failed pyridostigmine and midodrine. He was last seen in our office with Dr. Pimentel nurse practitioner on 10/03/2022 and recently he was seen by May 2024 He was seen by [facility] cardiology last on 02/05/2023 He was seen recently in May 2024 because of legs edema. He had recent echo which showed normal left ventricular static and diastolic function. He was started on Farxiga and that helped a lot. The patient states that he does not exercise on regular basis however he denies any chest discomfort or shortness of breath at rest or with exertion. Denies orthopnea or paroxysmal nocturnal dyspnea. He reports that he had prior history of orthostatic hypotension and near syncope however that improved a lot and he still has occasionally mild feeling of dizziness probably once every 2 to 3 months. He quit Mountain Dew altogether. ROS All systems were reviewed and they were negative except for the positive findings noted above in the history Past Medical History: Diagnosis Date Deep vein thrombosis (CMS/HCC) Hyperlipidemia Hypertension Nonischemic congestive cardiomyopathy (CMS/HCC) Sleep apnea Tachycardia Past Surgical History: Procedure Laterality Date BACK SURGERY CARDIAC CATHETERIZATION HAND SURGERY REPLACEMENT TOTAL HIP LATERAL POSITION Family History Problem Relation Name Age of Onset No Known Problems Mother No Known Problems Father Social History Tobacco Use Smoking status: Former Types: Cigarettes Smokeless tobacco: Never Substance Use Topics Alcohol use: Not Currently Comment: occasional Drug use: Never Allergies Allergies Allergen Reactions Morphine Other Patient thinks that with previous surgery he had a mental psychotic reaction with the combination of Lyrica and Morphine. Other reaction(s): Intolerance Patient thinks that with previous surgery he had a mental psychotic reaction with the combination of Lyrica and Morphine. Tolerated hydromorphone during 11/2016 admission Lisinopril Unknown Losartan Medications Current Outpatient Medications: aspirin 81 mg EC tablet, aspirin 81 mg tablet,delayed release TAKE 1 TABLET BY MOUTH EVERY DAY, Disp: , Rfl: atorvastatin (Lipitor) 40 mg tablet, TAKE 1 TABLET BY MOUTH EVERYDAY AT BEDTIME, Disp: 90 tablet, Rfl: 3 celecoxib (CeleBREX) 200 mg capsule, Take 1 capsule by mouth Twice daily at 6am and 6pm., Disp: , Rfl: dapagliflozin propanediol (Farxiga) 10 mg, Take 10 mg by mouth in the morning., Disp: , Rfl: DULoxetine (Cymbalta) [address] capsule, Take 1 capsule by mouth in the morning and at bedtime., Disp: , Rfl: folic acid (Folvite) 1 mg tablet, Take 1 tablet by mouth in the morning., Disp: , Rfl: gabapentin (Neurontin) 300 mg capsule, Take 900 mg by mouth in the morning and at bedtime., Disp: , Rfl: leflunomide (Arava) 20 mg tablet, leflunomide 20 mg tablet TAKE 1 TABLET BY MOUTH EVERY DAY, Disp: , Rfl: methotrexate 2.5 mg tablet, methotrexate sodium 2.5 mg tablet TAKE 5 TABLETS BY MOUTH EVERY WEEK, Disp: , Rfl: metoprolol succinate XL (Toprol-XL) 50 mg 24 hr tablet, Take 50 mg by mouth in the morning. Do not (more content not included)...[facility]03-31-2025 NotePatient Education Urology Benign Prostatic Hyperplasia Benign prostatic hyperplasia (BPH) is an enlarged prostate gland that is caused by the normal agingprocess. The prostate may get bigger as a man gets older. The condition is not caused by cancer. The prostate is a walnut-sized gland that is involved in the production of semen. It is located in front of the rectum and below the bladder. The bladder stores urine. The urethra carries stored urine ou t of the body. An enlarged prostate can press on the urethra. This can make it harder to pass urine. The buildup of urine in the bladder can cause infection. Back pressure and infection may progress to bladder damage and kidney (renal) failure. What are the causes? This condition is part of the normal aging process. However, not all men develop problems from thiscondition. If the prostate enlarges away from the urethra, urine flow will not be blocked. If it enlarges toward the urethra and compresses it, there will be problems passing urine. What increases the risk? This condition is more likely to develop in men older than 50 years. What are the signs or symptoms? Symptoms of this condition include: ??? Getting up often during the night to urinate. ??? Needing to urinate frequently during the day. ??? Difficulty starting urine flow. ??? Decrease in size and strength of your urine stream. ??? Leaking (dribbling) after urinating. ??? Inability to pass urine. This needs immediate treatment. ??? Inability to completely empty your bladder. ??? Pain when you pass urine. This is more common if there is also an infection. ??? Urinary tract infection (UTI). How is this diagnosed? This condition is diagnosed based on your medical history, a physical exam, and your symptoms. Tests will also be done, such as: ??? A post-void bladder scan. This measures any amount of urine that may remain in your bladder after you finish urinating. ??? A digital rectal exam. In a rectal exam, your health care provider checks your prostate by putting a lubricated, gloved finger into your rectum to feel the back of your prostate gland. This exam detects the size of your gland and any abnormal lumps or growths. ??? An exam of your urine (urinalysis). ??? A prostate specific antigen (PSA) screening. This is a blood test used to screen for prostate cancer. ??? An ultrasound. This test uses sound waves [...] severity of your condition. Treatment may include: ??? Observation and yearly exams. This may be the only treatment needed if your condition and symptoms are mild. ??? Medicines to relieve your symptoms, including: ? Medicines to shrink the prostate. ? Medicines to relax the muscle of the prostate. ??? Surgery in severe cases. Surgery may include: ? Prostatectomy. In this procedure, the prostate tissue is removed completely through an open incision or with a laparoscope or robotics. ? Transurethral resection of the prostate (TURP). In this procedure, a tool is inserted through theopening at the tip of the penis (urethra). [...] procedure uses radio frequencies to destroy and removea small amount of prostate tissue. ? Interstitial laser coagulation (ILC). This procedure uses a laser to destroy and remove a small amount of prostate tissue. ? Transurethral electrovaporization (TUVP). This procedure uses electrodes to destroy and remove a small amount of prostate tissue. ? Prostatic urethral lift. This procedure inserts an implant to push the lobes of the prostate awayfrom the urethra. Follow these instructions at home: ??? Take etak-ywn-bnwznnw and prescription medicines only as told by your health care provider. ??? Monitor your symptoms for any changes. Contact your health care provider with any changes. ??? Avoid drinking large amounts of liquid before going to bed or out in public. ??? Avoid or reduce how much caffeine or alcohol you drink. ??? Give yourself time when you urinate. ??? Keep all follow-up visits. This is important. Contact a health care provider if: ??? You have unexplained back pain. ??? Your symptoms do not get (more content not included)...[facility]02-18-2025 NoteCardiology Follow Up Progress Note Chief Complaint: [...] is complete. Nikkie Trejo MD Interventional Cardiology [facility]02-18-2025 Evaluation note* Diagnosis Onset Date Resolution Status Admit Date Left shoulder pain acute Febr2024 9:12am Neck pain acute June 10, 2024 9:12am Occipital neuralgia of left side acute June 10, 025 9:12am Other chronic pain acute 2024 9:12am Cervical spondylosis acute Apri 2024 9:23am Left shoulder pain acute July 23, 2024 9:23am Occipital neuralgia of left side acute July 23, 2024 9:23am Other chronic pain acute July 23, 2024 9:23am [facility] Work Phone: 1(859) 864-775402-18-2025 Evaluation note* Diagnosis Onset Date Resolution Status Admit Date Left shoulder pain acute Februa 2024 9:12am Neck pain acute June 10, 2024 9:12am Occipital neuralgia of left side acute June 10, 025 9:12am Other chronic pain acute Febr2024 9:12am Cervical spondylosis acute Apri l 2nd, 2025 9:23am Left shoulder pain acute July 23, 2024 9:23am Occipital neuralgia of left side acute July 23, 2024 9:23am Other chronic pain acute July 23, 2024 9:23am Cervical spondylosis acute Apri l 2024 9:23am Epicondylitis, lateral, left acute August 19, 2024 9:23am Left cervical radiculopathy acute August 19, 2024 9:23am Other chronic pain acute August 19, 2024 9:23am [facility] Work Phone: 1(961) 179-663801-21-2025 Evaluation note* Diagnosis Onset Date Resolution Status Admit Date Ankylosing spondylitis acute Ja 2024 10:40am CHF (congestive heart failure) acute May 13, 2024 10:40am Depression acute May 13, 2024 10:40am Left cervical radiculopathy acute May 13, 2024 10:40am Lower extremity edema acute Apr 10:40am Peripheral neuropathy acute Apr 10:40am Left shoulder pain acute ua 2024 9:12am Neck pain acute June 10, 2024 9:12am Occipital neuralgia of left side acute June 10, 025 9:12am Other chronic pain acute 2024 9:12am [facility] Work Phone: 1(163) 769-442012-16-2024 Telephone encounter Note* Telephone Encounter - Alysha Emanuel MD - 04/07/2024 4:41 PM EST Resending rx Alysha Emanuel MD Dept of Endocrinology [facility]12-16-2024 Miscellaneous Notes* Telephone Encounter - Alysha Emanuel MD - 04/07/2024 4:41 PM EST Resending rx Alysha Emanuel MD Dept of Endocrinology * Telephone Encounter - Rena Dacosta - 04/07/2024 3:34 PM EST Patients insurance called in states Teriparatide 20 mcg/dose (600mcg/2.4mL is not covered by patients insurance. They are recommending alternate medications: Forteo, Tymols, Alendronate Sodium. [employer] can be reached at [phone]. Rena Munson Drilling Superintendent II [facility] documented [facility] Telephone encounter Note * Telephone Encounter - Rena Dacosta - 04/07/2024 3:34 PM EST Patients insurance called in states Teriparatide 20 mcg/dose (600mcg/2.4mL is not covered by patients insurance. They are recommending alternate medications: Forteo, Tymols, Alendronate Sodium. [employer] can be reached at [phone]. Rena Munson Drilling Superintendent II [facility]10-18-2024 NoteHNO ID: [id number] Author: ALYSHA EMANUEL MD Service: ? Author Type: Physician Type: Progress Notes Filed: 02/08/2024 11:40 Note Text: Endocrine consult note Mr. Felix is a 63 year old male here today [place] [id number] [facility] [id number] for evaluation, management, and treatment of the following issues: bone health My final recommendations will be communicated back to the requesting physician by way of shared medical record or letter. Coming from [place] Mr. Felix is here to discuss [...] MEDICAL HISTORY Diagnosis Date Ankylosing spondylitis ([facility]) Dr Hodges; age 19 yrs Arthritis Back pain four back surgeries Cardiomyopathy ([facility]) Nonischemic Congestive Cerebrovascular small vessel disease 08/24/2016 On ASA DVT (deep venous thrombosis) ([facility]) Esophageal reflux Former smoker Kidney stones Major depressive disorder with single episode, in remission ([facility]) 08/24/2016 Morbid obesity with BMI of 40.0-44.9, adult ([facility]) Neuropathy Obstructive sleep apnea syndrome, severe On [...] No Dizziness: No Numbn (more content not included)...[facility]10-18-2024 History of Present illness Narrative* Alysha Emanuel MD - 02/08/2024 10:04 AM EDT Endocrine consult note Mr. Felix is a 63 year old male here [place] the [place] [id number] [address] [facility] [address] for evaluation, management, and treatment of the following issues: bone health My final recommendations will be communicated back to the requesting physician by way of shared medical record or letter. Coming from [place] Mr. Felix is here to discuss [...] Back pain four back surgeries Cardiomyopathy ([facility]) Nonischemic Congestive Cerebrovascular small vessel disease 08/24/2016 On ASA DVT (deep venous thrombosis) ([facility]) Esophageal reflux Former smoker Kidney stones Major depressive disorder with single episode, in remission ([facility]) 08/24/2016 Morbid obesity with BMI of 40.0-44.9, adult ([facility]) Neuropathy Obstructive sleep apnea syndrome, severe On [...] IgM 40 - 230 mg/dL 26 (L) [place] Free, Serum 3.3 - 19.4 mg/L 32.4 [...] Side effect sheet provided to patient from [facility] as well for above medication. Side effects [...] I did update Dr Hodges's office at [phone] with status of medication. I left . Thank you for allowing me to participate in the care of Elena Felix. Please contact me with any questions or concerns. Alysha Emanuel MD Dept of Endocrinology February 08, 2024 documented in this [facility] Instructions* Patient Instructions* Alysha Emanuel MD - [...] order bone medication- forteo documented in [facility] Hospital Discharge instructions Patient Education 01/04/2024 11:25:15 [...] including vitamins, herbs, eye drops, creams, and rerj-cyj-watlait medicines. Any problems you or family members [...] provider tells you to take them. Taking sjhy-pqg-wlvngna medicines, vitamins, herbs, and supplements. General instructions [...] ?A small tool that is like a Protein Barie cutter or a hole punch is used to cut a akhiok shape out of theskin. ?The outer edges [...] provider. Document Revised: 11/08/2021 Document Reviewed: 11/08/2021 Elsevier Patient Education 2023 [employer]. Follow Up Care 11/06/2023 09:35:32 With:ARABELLA MUNIZ, Jerrod Moya, URL Address: [address] [place] [address] [place] [address]- When: Unknown [facility] 09-13-2024 NotePatient Education Dermatology Excision of Skin [...] including vitamins, herbs, eye drops, creams, and lktw-ubq-arxgtse medicines. ? Any problems you or family [...] tells you to take them. ? Taking svnc-sih-kixnrqe medicines, vitamins, herbs, and supplements. General instructions [...] hole punch is used to cut a akhiok shape out of the skin. ? The [...] visits. This is impo (more content not included)...[facility]09-03-2024 Hospital Discharge instructions Patient Education 12/25/2023 09:59:30 [...] Up Care 11/06/2023 09:33:45 With:Jerrod BELL Address: [address] [place], [place] [id number]- Business (1) When:01/01/2024 09:58:51 Comments:For suture removal [facility] 09-03-2024 NotePatient Education Custom Excision Penile [...] -Take the pain [facility] History of Present illness Narrative* Karthikeyan Marti MD - 12/04/2023 9:51 AM EDT PATIENT NAME: [facility] NO.: [id number] ATTENDING PHYSICIAN: Karthikeyan Marti MD DATE OF SERVICE: December 04, [...] MEDICAL HISTORY No date: Ankylosing spondylitis ([facility]) Comment: Dr Hodges No date: Ankylosing spondylitis ([facility]) No date: Arthritis No date: Back pain No date: Cardiomyopathy ([facility]) Comment: Nonischemic Congestive 08/24/2016: Cerebrovascular small vessel disease Comment: On ASA No date: DVT (deep venous thrombosis) ([facility]) No date: Esophageal reflux No date: Former smoker No date: Kidney stones 08/24/2016: Major depressive disorder with single episode, in remission ([facility]) No date: Morbid obesity with BMI of 40.0-44.9, adult ([facility]) No date: Neuropathy No date: Obstructive sleep [...] Range Status 11/07/2023 14.4 % Final Abs [place] Date Value Ref Range Status 11/07/2023 0.91 [...] not 100% committed to long term care phlebotomist therapy. I reviewed his hypercoag labs and [...] do not hesitate to contact me at [phone]. Karthikeyan Marti MD Hematology/Medical Oncology [facility] I spent a total of 30 minutes on the date of the service which included preparing to see the patient, eamz-ml-vafg patient care, completing clinical documentation, obtaining and/or reviewing separately obtained history, ordering medications, tests, or procedures, and communicating with other HCPs (not separately reported). CC: Silvana Lundberg MD documented in this encounterSelect [facility]08-08-2024 NoteHNO ID: [id number] Author: MISTY WALLACE MD Service: ? Author [...] tolerated -Follow up: as needed Misty Wallace MDElizabeth Mason [id number] History of Present illness Narrative* Misty Wallace [...] needed Misty Wallace MD documented in this encounterSelect Medical [facility]ty [facility] [place]08-08-2024 History of Present illness Narrative* Kecia Carpenter RT(R) - 11/29/2023 8:40 AM EDT Radiology [...] PATIENT PRESENTS WITH AN IMPLANTABLE OR ATTACHED BICYCLE MESSENGER: No RADIOLOGY DEPARTMENT: General X-ray: Exam(s) Completed: Pelvis X-Ray: Pelvis with Hip Left PERIPHERAL IV DATA: Not applicable SIGNED BY: RT Alpa(Griffin) November 29, 2023 8:56 AM documented in this encounterSelect Medical Specialty [facility]08-08-2024 NoteHNO ID: [id number] Author: KECIA CARPENTER RT(Griffin) Service: Radiology Author Type: Technologist Type: Progress [...] PATIENT PRESENTS WITH AN IMPLANTABLE OR ATTACHED BICYCLE MESSENGER: No RADIOLOGY DEPARTMENT: General X-ray: Exam(s) Completed: Pelvis X-Ray: Pelvis with Hip Left PERIPHERAL IV DATA: Not applicable SIGNED BY: RT Alpa(R) November 29, 2023 8:56 [facility]06-10-2024 Telephone encounter Note* Telephone Encounter - Brad Tsang - 10/01/2023 4:25 PM EDT Called pt to schedule; no answer; scheduled first available with dr. Booker garcia [facility]06-10-2024 Miscellaneous Notes* Telephone Encounter - Brad Tsang - 10/01/2023 4:25 PM EDT Called pt to schedule; no answer; scheduled first available with dr. Booker garcia documented in this encounterSelect Medical Specialty Hospital [facility] [place]06-07-2024 Telephone encounter Note * Telephone Encounter - Lana Londono-Barbi Ko RN - 09/28/2023 12:00 PM EDT ----- Message from Misty Wallace MD sent at 09/27/2023 1:23 PM EDT ----- Hi, can you let patient know that he had an elevated PTH. I have placed a consultation for endocrinology to discuss possible etiologies/treatments for this [facility]06-07-2024 Miscellaneous Notes* Telephone Encounter - Anabelle Londono RN - 09/28/2023 12:00 PM EDT ----- Message from Misty Wallace MD sent at 09/27/2023 1:23 PM EDT ----- Hi, can you let patient know that he had an elevated PTH. I have placed a consultation for endocrinology to discuss possible etiologies/treatments for this documented in this encounterSelect Medical Specialty [facility] [place]06-06-2024 NoteHNO ID: [id number] Author: MISTY WALLACE MD Service: ? Author [...] MEDICAL HISTORY Diagnosis Date Ankylosing spondylitis ([facility]) Dr Hodges Ankylosing spondylitis ([facility]) Arthritis Back pain Cardiomyopathy ([facility]) Nonischemic Congestive Cerebrovascular small vessel disease 08/24/2016 On ASA DVT (deep venous thrombosis) ([facility]) Esophageal reflux Former smoker Kidney stones Major depressive disorder with single episode, in remission ([facility]) 08/24/2016 Morbid obesity with BMI of 40.0-44.9, adult ([facility]) Neuropathy Obstructive sleep apnea syndrome, severe On [...] vitamin D, CRP, ESR, (more content not included)...[facility] 09-27-[facility] History of Present illness Narrative* Misty [...] MEDICAL HISTORY Diagnosis Date Ankylosing spondylitis ([facility]) Dr Hodges Ankylosing spondylitis ([facility]) Arthritis Back pain Cardiomyopathy ([facility]) Nonischemic Congestive Cerebrovascular small vessel disease 08/24/2016 On ASA DVT (deep venous thrombosis) ([facility]) Esophageal reflux Former smoker Kidney stones Major depressive disorder with single episode, in remission ([facility]) 08/24/2016 Morbid obesity with BMI of 40.0-44.9, adult ([facility]) Neuropathy Obstructive sleep apnea syndrome, severe On [...] a consultation for endocrinology and sent an [employer] message to one of our endocrinologists as well. RN to update patient. Misty Wallace MD Orthopaedic Trauma Surgery documented in this encounterSelect Medical [facility]ty [facility] [place]06-06-2024 History of Present illness Narrative* Samuel Sky RT(R) - 09/27/2023 9:40 AM EDT Radiology [...] PATIENT PRESENTS WITH AN IMPLANTABLE OR ATTACHED BICYCLE MESSENGER: No RADIOLOGY DEPARTMENT: General X-ray: Exam(s) Completed: Pelvis X-Ray: Pelvis with Hip Left PERIPHERAL IV DATA: Not applicable SIGNED BY: RT Jarett(Griffin) September 27, 2023 9:37 AM documented in this encounterSelect Medical Specialty [facility]06-06-2024 NoteHNO ID: [id number] Author: SAMUEL SKY RT(R) Service: ? Author [...] PATIENT PRESENTS WITH AN IMPLANTABLE OR ATTACHED BICYCLE MESSENGER: No RADIOLOGY DEPARTMENT: General X-ray: Exam(s) Completed: Pelvis X-Ray: Pelvis with Hip Left PERIPHERAL IV DATA: Not applicable SIGNED BY: ISSA Denson) September 27, 2023 9:37 [facility]03-25-2024 Hospital Discharge instructions Patient Education 07/16/2023 [...] Follow these instructions at home: Medicines Take himl-twn-ulmstte and prescription medicines only as told by [...] your local emergency services (911 in the .[place] Do not drive yourself to the hospital. [...] provider. Document Revised: 07/06/2021 Document Reviewed: 07/06/2021 [employer] Patient Education 2022 [employer]. Follow Up Care 05/01/2022 10:53:41 With:RIZWAN MUNIZ, Driss Rodríguez, URL Address: [facility] [employer] SUITE [facility] [place] [id number]- When: Unknown [facility] Evaluation note* Encounter Date Diagnosis Assessment Notes [...] (ICD-10 - L30.9) Advised OTC Cortisone cream. [employer] Other 10-16-2023 History of Present illness Narrative* Austin Jose MD - 02/05/2023 1:01 PM EDT I personally reviewed the above information as obtained by the nurse and confirmed the findings. Chief Complaint: shortness of breath, Near loss of consciousness Additional HPI: 62 year old male with a past medical history of: PAST MEDICAL HISTORY Diagnosis Date Ankylosing spondylitis ([facility]) Dr Hodges Ankylosing spondylitis ([facility]) Arthritis Back pain Cardiomyopathy ([facility]) Nonischemic Congestive Cerebrovascular small vessel disease 08/24/2016 On ASA DVT (deep venous thrombosis) ([facility]) Esophageal reflux Former smoker Kidney stones Major depressive disorder with single episode, in remission ([facility]) 08/24/2016 Morbid obesity with BMI of 40.0-44.9, adult ([facility]) Neuropathy Obstructive sleep apnea syndrome, severe On [...] up with their primary care physician and/or flight controls engineer as previously scheduled. STUDY CONCLUSIONS: Abnormal head [...] to repeat a Tilt Table Test with qfwz-wa-pigi blood pressure monitoring here at [facility]. He agrees. If a relationship between low [...] of syncope. [ACC/AHA Syncope Guidelines 2017. PMID 83486317] -If syncope is frequent (more than 6 episodes in 1 year), then no private driving until symptoms are controlled. [ACC/AHA Syncope Guidelines 2017. PMID 30245616] -For professional or commercial driving, driving recommendations may differ depending upon company or governmental regulations. The Nurses and Nurse Practitioners at [facility] are integral to your care. -*Test results will be available on [employer].* -For brief questions regarding the test results, please send a [employer] message or call the office ([phone]), and a Nurse will be in contact. [...] for your consultation. Sincerely, Austin Jose MD, [facility], [facility] Cardiac Electrophysiology [facility] * Anna Duvall RN - 02/05/2023 12:00 PM EDT Images from the original note were not included. Heart [facility] Vascular [place] Shanelle Flannery Department of Cardiovascular Medicine SECTION OF CARDIAC PACING and ELECTROPHYSIOLOGY OUTPATIENT VISIT DATE February 05, 2023 PRIMARY CARE PHYSICIAN: Silvana Lundberg ([facility]) [address] [place] [address] REFERRING PHYSICIAN: Berta Francis [address] [facility] [address] NURSING INTAKE HISTORY: Mr. Fleix is a 62 year old male who [...] MEDICAL HISTORY Diagnosis Date Ankylosing spondylitis ([facility]) Dr Hodges Ankylosing spondylitis ([facility]) Arthritis Back pain Cardiomyopathy ([facility]) Nonischemic Congestive Cerebrovascular small vessel disease 08/24/2016 On ASA DVT (deep venous thrombosis) ([facility]) Esophageal reflux Former smoker Kidney stones Major depressive disorder with single episode, in remission ([facility]) 08/24/2016 Morbid obesity with BMI of 40.0-44.9, adult ([facility]) Neuropathy Obstructive sleep apnea syndrome, severe On [...] Sweating, Frequent Urination, FrequentThirst Anna Duvall RN [facility] Syncope Center Score Please estimate the frequency [...] of Both Sections: 35 documented in this encounterSelect Medical [facility]ty [facility]09-06-2023 Evaluation note* Encounter Date Diagnosis Assessment Notes Treatment Notes Treatment Clinical Notes Dec, Pernicious anemia (ICD-10 - D51.0) [employer] Other 07-28-2023 Instructions* Patient Instructions* Berta Francis MD - 11/17/2022 11:06 AM EDT Cardiopulmonary exercise testing documented in this encounterSelect Medical Specialty [facility] [place]07-28-2023 History of Present illness Narrative* Berta Francis MD - 11/17/2022 10:46 AM EDT Images from the original note were not included. Heart, Vascular and Thoracic [place] Shanelle lFannery Department of Cardiovascular Medicine SECTION OF CLINICAL CARDIOLOGY OUTPATIENT VISIT DATE November 17, 2022 OUTPATIENT VISIT TYPE ESTABLISHED PRIMARY CARE PHYSICIAN: Silvana Lundberg ([place]) [address] [place] [address] REFERRING PHYSICIAN: No referring provider defined for [...] MEDICAL HISTORY Diagnosis Date Ankylosing spondylitis ([facility]) Dr Hodges Ankylosing spondylitis ([facility]) Arthritis Back pain Cardiomyopathy ([facility]) Nonischemic Congestive Cerebrovascular small vessel disease 08/24/2016 On ASA DVT (deep venous thrombosis) ([facility]) Esophageal reflux Former smoker Kidney stones Major depressive disorder with single episode, in remission ([facility]) 08/24/2016 Morbid obesity with BMI of 40.0-44.9, adult ([facility]) Neuropathy Obstructive sleep apnea syndrome, severe On [...] NORMAL ECG Confirmed by YELENA FUENTES MD ([id number]) on 08/16/2022 10:01:53 AM Patient Name: Elena [...] Department of Cardiovascular Medicine Heart and Vascular [place] [facility] Desk [address] [place] [address] Office Office Appointments: [phone] documented in this encounterSelect Medical [facility]ty [facility]07-18-2023 Evaluation note* Encounter Date Diagnosis Assessment Notes Treatment Notes Treatment Clinical Notes Oct, Pernicious anemia (ICD-10 - D51.0) [employer] Other 07-11-2023 Evaluation note* Encounter Date Diagnosis Assessment Notes Treatment Notes Treatment Clinical Notes Oct, Cellulitis of right leg (ICD-10 - L03.115) Discussed antibiotics, pain med, consider referral to wound center if not healing well. [employer] Other 06-27-2023 Miscellaneous Notes* Telephone Encounter - Shelia Woods RN - 10/17/2022 9:06 AM EDT Called patient to discuss results of BMP with kidney function and potassium levels still elevated. Left generic message on non-identifying voicemail to return call or read [employer] message sent to notify him. Misti Woods RN documented in this encounterSelect Medical Specialty [facility]06-26-2023 Evaluation note* Encounter Date Diagnosis Assessment Notes [...] Will recheck labs, possibly checked this morning. [employer] Other 06-26-2023 History of Present illness Narrative* [...] EMG Trip Grey MD documented in this encounterSelect Medical Specialty [facility]06-22-2023 Miscellaneous Notes* Telephone Encounter - Shelia Woods RN - 10/12/2022 1:09 PM EDT Called and left a generic message on non-identifying voicemail for return call if he has any questions about the [employer] message that Anna sent. Misti Woods RN documented in this encounterSelect Medical Specialty Hospital [facility]06-16-2023 Instructions* Patient Instructions* Anna Palacios APRN.ADULT CARE MANAGER - 10/06/2022 9:58 AM EDT 1) Labs 2) EMG 3) Discuss with urology changing to different medication (discontinuing Flomax) 4) Discuss your neck symptoms with your beef pusher 5) Medication consideration - Will discuss with [...] intolerance quickly and transiently. documented in this encounterSelect Medical Specialty [facility]06-16-2023 History of Present illness Narrative* Anna Palacios APRN.SAHIL - 10/06/2022 9:00 AM EDT Images from the original note were not included. [facility] New Patient Evaluation Chief Complaint/Issues: Elena Felix is a 62 year old right-handed male seen in the [facility] for: New patient [...] years ago. Used to work in [employer]. Today we discuss his symptoms: Accompanied by , Maricel, who contributes to the history. Ganesh has ankylosing spondylitis, diagnosed at age 19. He has had multiple back and hip surgeries. His beef pusher is locally in [place]. He had surgery in 2019, had a [...] GI andheart issues. He sees cardiology in [facility]. He had a heart cath [...] PT in the past and sees his beef pusher for the neck. PMH PAST MEDICAL HISTORY Diagnosis Date Ankylosing spondylitis ([facility]) Dr Hodges Ankylosing spondylitis ([facility]) Arthritis Back pain Cardiomyopathy ([facility]) Nonischemic Congestive Cerebrovascular small vessel disease 08/24/2016 On ASA DVT (deep venous thrombosis) ([facility]) Esophageal reflux Former smoker Kidney stones Major depressive disorder with single episode, in remission ([facility]) 08/24/2016 Morbid obesity with BMI of 40.0-44.9, adult ([facility]) Neuropathy Obstructive sleep apnea syndrome, severe On [...] up with their primary care physician and/or flight controls engineer as previously scheduled. STUDY CONCLUSIONS: Abnormal head [...] & Plan 10/06/2022 - Neuromuscular, Anna Palacios, PUBLISHING SYSTEMS ANALYST.ADULT CARE MANAGER ASSESSMENT Elena Felix is a 62 [...] managed by local rheumatology, and seen by [facility] rheumatology recently, Marysol Nance PA-C. He [...] SOB. He had OSH tilt completed through [facility] 07/2022. Though I cannot see the minute [...] which I will discuss with his primary flight controls engineer, Dr. Francis (staff message sent 10/06). He is currently in cardiac rehab locally 3x per week. We discuss conservative measures as tolerated. PLAN 1) Labs 2) EMG 3) Discuss with urology changing to different medication (discontinuing Flomax) 4) Discuss your neck symptoms with your beef pusher 5) Medication consideration - Will discuss with [...] which included preparing to see the patient, uwhr-xb-pfeq patient care, completing clinical documentation, obtaining and/or reviewing separately obtained history, performing a medically appropriate examination, counseling and educating the pat ient/family/caregiver, and ordering medications, tests, or procedures. Anna Palacios APRN.[facility] General Neurology [address] [place] [address]. [address] Appointment: [phone] CONSULT: Consultation requested by Dr. Francis for [...] of your PCP/referring physician documented in this encounterSelect Medical Specialty [facility]06-14-2023 History of Present illness Narrative* Víctor Lewis [...] 8:10 PATIENT DISCHARGED TO: Ambulatory patient, left [place] department area. A Diagnostic radioactive procedure has taken place, with no further precautions necessary other than routine body substance precautions. More information regarding radiation safety can be found usingthis link: [email or web address] SIGNATURE: ISSA Knutson) PATIENT NAME: Elena Felix DATE: October 04, 2022 TIME: 8:15 AM PAGER/CONTACT #: documented in this encounterSelect Medical Specialty [facility]05-24-2023 Nurse Note* Yuliana Tubbs RN - 09/13/2022 [...] patient reports no symptoms of any kind. uYliana Tubbs RN documented in this encounterSelect Medical Specialty [facility]05-09-2023 History of Present illness Narrative* Marcia Diamond [...] applicable. Marcia Diamond MD History and Physical: Elnea Felix is a 61 year old year-old [...] 2022 TIME: 1:57 PM documented in this encounterSelect Medical Specialty Hospital [facility]05-08-2023 Miscellaneous Notes* Telephone Encounter - Lauryn Bethea [...] In Department of CARDIOLOGY. documented in this encounterSelect Medical Specialty Hospital [facility]04-26-2023 Instructions* Patient Instructions* Marysol Nance PA-C - [...] uveitis coverage. Continue to follow with primary beef pusher for medication changes and monitoring. [facility] can continue to assist with treatment plan as needed. documented in this encounterSelect Medical Specialty Hospital [facility]04-26-2023 History of Present illness Narrative* Catia Snell - 08/16/2022 10:06 AM EDT E documented in this encounterSelect Medical Specialty Hospital - [facility]04-26-2023 History of Present illness Narrative* Marysol Nance PA-C - 08/16/2022 10:00 AM EDT Images from the original note were not included. Rheumatology Outpatient Clinic Date of Service: 08/16/2022 Patient: Elena Felix Medical Record: [id number] Primary Care Physician: Silvana Lundberg MD Last Rheumatology visit: None at the [facility] Referring Provider: Berta Francis MD [address] [facility] [address] Consultation requested by Berta Francis MD for [...] years later. He currently follows with a beef pusher, Dr. Brad Hodges, in [place], [place] who he is happy with. However,reports beef pusher told him, he is only his third patient with ankylosing spondylitis and so presents to [facility] rheum for assistance on treatment plan. [...] mass areas in the brain. Reports his beef pusher has considered a TNF-alpha inhibitor again, but [...] Ankylosing spondylitis (HCC) Dr Hodges Ankylosing spondylitis ([facility]) Arthritis Back pain Cardiomyopathy ([facility]) Nonischemic Congestive Cerebrovascular small vessel disease 08/24/2016 On ASA DVT (deep venous thrombosis) ([facility]) Esophageal reflux Former smoker Kidney stones Major depressive disorder with single episode, in remission ([facility]) 08/24/2016 Morbid obesity with BMI of 40.0-44.9, adult ([facility]) Neuropathy Obstructive sleep apnea syndrome, severe On [...] Patient should continue following with his primary beef pusher. Follow up as needed. Plan Orders this [...] uveitis coverage. Continue to follow with primary beef pusher for medication changes and monitoring. [facility] can continue to assist with treatment plan as needed. Return if symptoms worsen or fail to improve. I spent a total of 60 minutes on the date of the service which included preparing to see the patient, vvur-fi-nhro patient care, completing clinical documentation, obtaining and/or reviewing separately obtained history, performing a medically appropriate examination, and counseling and educating the patient/family/caregiver. Marysol Nance PA-C Orthopaedic & Rheumatologic [facility] Date: August 16, 2022 Time: 10:00 AM documented in this encounterSelect Medical Specialty [facility]04-26-2023 History of Present illness Narrative* Berta Francis MD - 08/16/2022 8:19 AM EDT Images from the original note were not included. Heart, Vascular and Thoracic [place] Shanelle Flannery Department of Cardiovascular Medicine SECTION OF CLINICAL CARDIOLOGY OUTPATIENT VISIT DATE August 16, 2022 OUTPATIENT VISIT TYPE NEW PRIMARY CARE PHYSICIAN : Silvana Lundberg ([place]) [address] [place] [address] REFERRING PHYSICIAN: No referring provider defined for this encounter. CHIEF COMPLAINT: Palpitations, lightheadedness HISTORY OF PRESENT ILLNESS: Mr. 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 Starting in 2018 post-op, began experiencing [...] 20 years ago. Used to work in [employer]. Fmaily hx of stroke in mother and father. PAST MEDICAL HISTORY Diagnosis Date Ankylosing spondylitis (HCC) Dr Hodges Ankylosing spondylitis ([facility]) Arthritis Back pain Cardiomyopathy ([facility]) Nonischemic Congestive Cerebrovascular small vessel disease 08/24/2016 On ASA DVT (deep venous thrombosis) ([facility]) Esophageal reflux Former smoker Kidney stones Major depressive disorder with single episode, in remission ([facility]) 08/24/2016 Morbid obesity with BMI of 40.0-44.9, adult ([facility]) Neuropathy Obstructive sleep apnea syndrome, severe On [...] lung disease in setting ofankylosing spondylitis and correction MTX use. Plan: - obtain echo here, [...] INFORMATION: Kellen Bryan MD Internal Medicine, PGY-3 [phone] 08/16/2022 12:26 PM [facility] STAFF PHYSICIAN NOTE OF PERSONAL [...] SERVICE: August 16, 2022 documented [facility] encounter[facility] Miscellaneous Notes* Telephone Encounter - Geovanni Castillo - 08/15/2022 12:46 PM EDT Images received from [employer] by mail. Images uploaded to [employer]. Patient has a future appointment on: 08/16/22. Date of last OV: N/A. Geovanni Castillo August 15, 2022 12:46 PM documented in this encounterSelect [facility] [place]04-10-2023 History of Present illness Narrative* Izzy Duvall RN - 07/31/2022 2:30 PM EDT Instructed on objectives and procedure of a tilt study documented in this encounterBON [employer] Phone: [phone]) 644-967903-22-2023 Miscellaneous Notes* Telephone Encounter - Geovanni Haileder - 07/12/2022 1:54 PM EDT Contacted patient via Phone -no answer; VMM left requesting for cardiac records prior to appointment on 08/16/22. Geovanni Castillo July 12, 2022 1:54 PM documented in this encounterSelect [facility] [place]01-16-2023 Evaluation note* Encounter Date Diagnosis Assessment Notes [...] from Dr. Hodges's office and his medications. [employer] Other 01-09-2023 Hospital Discharge instructions Patient Education [...] urethra. Follow these instructions at home: Take [id number] and prescription medicines only as told by [...] 04/09/2006 Document Revised: 03/04/2019 Document Reviewed: 05/14/2017 [employer] Patient Education 2020 [employer]. Follow Up Care 09/05/2021 12:02:11 With:ARABELLA MUNIZ, Jerrod Moya, URL Address: [facility] [address], [place] [id number]- [phone] When:Within 1 Year(s) [facility] 09-28-2022 History of Present illness Narrative* Karthikeyan Marti MD - 01/18/2022 10:38 AM EDT PATIENT NAME: Elnea Felix CLINIC NO.: [id number] ATTENDING PHYSICIAN: Karthikeyan Marti MD DATE OF SERVICE: January 18, [...] MEDICAL HISTORY Diagnosis Date Ankylosing spondylitis ([facility]) Dr Hodges Ankylosing spondylitis ([facility]) Arthritis Back pain Cardiomyopathy ([facility]) Nonischemic Congestive Cerebrovascular small vessel disease 08/24/2016 On ASA DVT (deep venous thrombosis) ([facility]) Esophageal reflux Former smoker Kidney stones Major depressive disorder with single episode, in remission ([facility]) 08/24/2016 Morbid obesity with BMI of 40.0-44.9, adult ([facility]) Neuropathy Obstructive sleep apnea syndrome, severe On [...] 0.95 (L) 1.00 - 4.00 k/uL Final [place]% Date Value Ref Range Status 12/28/2021 12.7 % Final Abs [place] Date Value Ref Range Status 12/28/2021 0.69 [...] not 100% committed to long term care phlebotomist therapy. I reviewed his hypercoag labs and [...] do not hesitate to contact me at [phone]. Karthikeyan Marti MD Hematology/Medical Oncology [facility] I spent a total of 15 minutes on the date of the service which included preparing to see the patient, [id number] patient care, completing clinical documentation, obtaining and/or reviewing separately obtained history, ordering medications, tests, or procedures, and communicating with other HCPs (not separately reported). Medical Decision Making: Medical Decision Making Level: 1 - N/A CC: Silvana Lundberg MD documented in this encounterSelect Medical [facility]ty [facility] [place]09-12-2022 Miscellaneous Notes* Telephone Encounter - Panfilo Carranza [...] AM EDT ----- ----- Message ----- From: Karthikeyan Marti MD Sent: 12/30/2021 5:36 PM EDT To: Meaghan De La Rosa RN Let him know that his work up is all negative and that if he wishes he can stop his anticoagulationand I am happy to discuss further in our next appointment as well, documented in this encounterSelect [facility] [place]09-12-2022 Miscellaneous Notes* Telephone Encounter - Meaghan De La Rosa RN - 01/02/2022 2:25 PM EDT Pt notified of results and that he can stop his anticoagulation therapy. Verbalized understanding and will follow up as scheduled. Meaghan De La Rosa RN * Telephone Encounter - Meaghan De La Rosa RN - 01/02/2022 2:23 PM EDT ----- Message from Karthikeyan Marti MD sent at 12/30/2021 5:36 PM EDT ----- Let him know that his work up is all negative and that if he wishes he can stop his anticoagulationand I am happy to discuss further in our next appointment as well, documented in this encounterSelect [facility] [place]09-07-2022 History of Present illness Narrative* Karthikeyan Marti MD - 12/28/2021 2:43 PM EDT PATIENT NAME: Elena Felix [facility] NO.: [id number] ATTENDING PHYSICIAN: Karthikeyan Marti MD DATE OF SERVICE: December 28, [address] Karthikeyan Marti [address] [place] [address] here is an update on a follow [...] MEDICAL HISTORY Diagnosis Date Ankylosing spondylitis ([facility]) Dr Hodges Ankylosing spondylitis ([facility]) Arthritis Back pain Cardiomyopathy ([facility]) Nonischemic Congestive Cerebrovascular small vessel disease 08/24/2016 On ASA DVT (deep venous thrombosis) ([facility]) Esophageal reflux Former smoker Kidney stones Major depressive disorder with single episode, in remission ([facility]) 08/24/2016 Morbid obesity with BMI of 40.0-44.9, [...] 12/15/2016 1.98 1.00 - 4.00 k/uL Final [place]% Date Value Ref Range Status 12/15/2016 10.6 % Final Abs [place] Date Value Ref Range Status 12/15/2016 0.99 [...] not 100% committed to long term care phlebotomist theraoy and is undergoing evaluation with hyper coag panel to decide if Ok to stop therapy and or he needs to resume, Will follow up on the blood work and discuss with him Thank you for the kind referral. If there are any questions and or concerns please do not hesitate to contact me at [phone]. Karthikeyan Marti MD Hematology/Medical Oncology [facility] I spent a total of 20 minutes on the date of the service which included preparing to see the patient, [id number] patient care, completing clinical documentation, obtaining and/or reviewing separately obtained history, ordering medications, tests, or procedures, and communicating with other HCPs (not separately reported). Medical Decision Making: Medical Decision Making Level: 1 - N/A CC: Silvana Lundberg MD documented in this encounterSelect Medical Specialty [facility] [place]08-09-2022 NoteEXAMINATION: XR CHEST 2 V HISTORY: COVID-19 [...] Electronically authenticated by: MAJOR REA Date: 2021-11-29 19:09[facility]06-01-2022 Nurse Note* Annmarie Ralph MA - 09/21/2021 3:46 PM EDT Patient was in ER yesterday due to Bronchitis. Annmarie Ralph MA documented in this encounterSelect Medical Specialty [facility] [place]06-01-2022 History of Present illness Narrative* Karthikeyan Marti MD - 09/21/2021 3:40 PM EDT Images from the original note were not included. PATIENT NAME: Elena Felix [facility] NO.: [id number] ATTENDING PHYSICIAN: Karthikeyan Marti MD DATE OF SERVICE: September 21, [address] Silvana Lundberg thank you for referring Mr. Elena Felix for an opinion regarding DVT. CHIEF COMPLAINT: DVT HPI: Elena Felix is a 61 year old year old male with past medical history significant for congestive heart failure followed at [facility], benign prostatic hypertrophy as well as ankylosing spondylitis who had undergone a [id number] PSF which was complicated by C. difficile [...] oftherapy. 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 due [...] MEDICAL HISTORY Diagnosis Date Ankylosing spondylitis ([facility]) Dr Hodges Ankylosing spondylitis ([facility]) Arthritis Back pain Cardiomyopathy ([facility]) Nonischemic Congestive Cerebrovascular small vessel disease 08/24/2016 On ASA DVT (deep venous thrombosis) ([facility]) Esophageal reflux Former smoker Kidney stones Major depressive disorder with single episode, in remission ([facility]) 08/24/2016 Morbid obesity with BMI of 40.0-44.9, adult ([facility]) Neuropathy Obstructive sleep apnea syndrome, severe On [...] 12/15/2016 1.98 1.00 - 4.00 k/uL Final [place]% Date Value Ref Range Status 12/15/2016 10.6 % Final Abs [place] Date Value Ref Range Status 12/15/2016 0.99 [...] was also subsequently taken off anticoagulation since 2017. More recently in August 2021 patient presented [...] me to participate in [facility]. [facility], if there are any questions or concerns please do not hesitate to contact me at the number below. Karthikeyan Marti M.D. Hematology/Medical Oncology [facility] [phone] CC: Silvana Lundberg MD I spent a total of 50 minutes on the date of the service which included preparing to see the patient, [id number] patient care, completing clinical documentation, obtaining and/or reviewing separately obtained history, performing a medically appropriate examination, counseling and educating the pat ient/family/caregiver and ordering medications, tests, or procedures. documented in this encounterSelect Medical [facility]ty [facility] [place]08-19-2017 History of Past illness Narrative* Problem Noted Date Resolved Date TIFFANIE (acute kidney injury) 12/09/20162016 Anticoagulation management encounter 10/27/2016 10/30/2016 Wound drainage 09/23/2016 10/30/2016 Pneumonia 12/15/2016 documented as of this encounter (statuses as of 09/16/2021) [place] [address]-19-2017 History of Past illness Narrative* Problem Noted Date Resolved Date TIFFANIE (acute kidney injury) 12/09/20162016 Anticoagulation management encounter 10/27/2016 10/30/2016 Wound drainage 09/23/2016 10/30/2016 Pneumonia 12/15/2016 documented as of this encounter (statuses as of 09/29/2021) [place] [address]-19-2017 History of Past illness Narrative* Problem Noted Date Resolved Date TIFFANIE (acute kidney injury) 12/09/20162016 Anticoagulation management encounter 10/27/2016 10/30/2016 Wound drainage 09/23/2016 10/30/2016 Pneumonia 12/15/2016 documented as of this encounter (statuses as of 12/28/2021) [address]19-2017 History of Past illness Narrative* Problem Noted Date Resolved Date TIFFANIE (acute kidney injury) 12/09/20162016 Anticoagulation management encounter 10/27/2016 10/30/2016 Wound drainage 09/23/2016 10/30/2016 Pneumonia 12/15/2016 documented as of this encounter (statuses as of 01/02/2022) [address]19-2017 History of Past illness Narrative* Problem Noted Date Resolved Date TIFFANIE (acute kidney injury) 12/09/20162016 Anticoagulation management encounter 10/27/2016 10/30/2016 Wound drainage 09/23/2016 10/30/2016 Pneumonia 12/15/2016 documented as of this encounter (statuses as of 01/18/2022) [address]19-2017 History of Past illness Narrative* Problem Noted Date Resolved Date TIFFANIE (acute kidney injury) 12/09/20162016 Anticoagulation management encounter 10/27/2016 10/30/2016 Wound drainage 09/23/2016 10/30/2016 Pneumonia 12/15/2016 documented as of this encounter (statuses as of 07/12/2022) [address]19-2017 History of Past illness Narrative* Problem Noted Date Resolved Date TIFFANIE (acute kidney injury) 12/09/20162016 Anticoagulation management encounter 10/27/2016 10/30/2016 Wound drainage 09/23/2016 10/30/2016 Pneumonia 12/15/2016 documented as of this encounter (statuses as of 08/15/2022) [address]19-2017 History of Past illness Narrative* Problem Noted Date Resolved Date TIFFANIE (acute kidney injury) 12/09/20162016 Anticoagulation management encounter 10/27/2016 10/30/2016 Wound drainage 09/23/2016 10/30/2016 Pneumonia 12/15/2016 documented as of this encounter (statuses as of 08/16/2022) [address]19-2017 History of Past illness Narrative* Problem Noted Date Resolved Date TIFFANIE (acute kidney injury) 12/09/20162016 Anticoagulation management encounter 10/27/2016 10/30/2016 Wound drainage 09/23/2016 10/30/2016 Pneumonia 12/15/2016 documented as of this encounter (statuses as of 08/16/2022) [address]19-2017 History of Past illness Narrative* Problem Noted Date Resolved Date TIFFANIE (acute kidney injury) 12/09/20162016 Anticoagulation management encounter 10/27/2016 10/30/2016 Wound drainage 09/23/2016 10/30/2016 Pneumonia 12/15/2016 documented as of this encounter (statuses as of 08/28/2022) [address]19-2017 History of Past illness Narrative* Problem Noted Date Resolved Date TIFFANIE (acute kidney injury) 12/09/20162016 Anticoagulation management encounter 10/27/2016 10/30/2016 Wound drainage 09/23/2016 10/30/2016 Pneumonia 12/15/2016 documented as of this encounter (statuses as of 08/30/2022) [address]19-2017 History of Past illness Narrative* Problem Noted Date Resolved Date TIFFANIE (acute kidney injury) 12/09/20162016 Anticoagulation management encounter 10/27/2016 10/30/2016 Wound drainage 09/23/2016 10/30/2016 Pneumonia 12/15/2016 documented as of this encounter (statuses as of 09/19/2022) [address]19-2017 History of Past illness Narrative* Problem Noted Date Resolved Date TIFFANIE (acute kidney injury) 12/09/20162016 Anticoagulation management encounter 10/27/2016 10/30/2016 Wound drainage 09/23/2016 10/30/2016 Pneumonia 12/15/2016 documented as of this encounter (statuses as of 10/05/2022) [address]19-2017 History of Past illness Narrative* Problem Noted Date Resolved Date TIFFANIE (acute kidney injury) 12/09/20162016 Anticoagulation management encounter 10/27/2016 10/30/2016 Wound drainage 09/23/2016 10/30/2016 Pneumonia 12/15/2016 documented as of this encounter (statuses as of 10/06/2022) [address]19-2017 History of Past illness Narrative* Problem Noted Date Resolved Date TIFFANIE (acute kidney injury) 12/09/20162016 Anticoagulation management encounter 10/27/2016 10/30/2016 Wound drainage 09/23/2016 10/30/2016 Pneumonia 12/15/2016 documented as of this encounter (statuses as of 10/16/2022) [address]19-2017 History of Past illness Narrative* Problem Noted Date Resolved Date TIFFANIE (acute kidney injury) 12/09/20162016 Anticoagulation management encounter 10/27/2016 10/30/2016 Wound drainage 09/23/2016 10/30/2016 Pneumonia 12/15/2016 documented as of this encounter (statuses as of 10/17/2022) [address]19-2017 History of Past illness Narrative* Problem Noted Date Resolved Date TIFFANIE (acute kidney injury) 12/09/20162016 Anticoagulation management encounter 10/27/2016 10/30/2016 Wound drainage 09/23/2016 10/30/2016 Pneumonia 12/15/2016 documented as of this encounter (statuses as of 10/17/2022) [address]19-2017 History of Past illness Narrative* Problem Noted Date Resolved Date TIFFANIE (acute kidney injury) 12/09/20162016 Anticoagulation management encounter 10/27/2016 10/30/2016 Wound drainage 09/23/2016 10/30/2016 Pneumonia 12/15/2016 documented as of this encounter (statuses as of 10/23/2022) [facility] History of Past illness Narrative* Problem Noted Date Diagnosed Date Resolved Date TIFFANIE (acute kidney injury) 12/09/2016 Anticoagulation management encounter 10/27/2016 10/30/2016 Wound drainage 09/23/2016 10/30/2016 Pneumonia 12/15/2016 documented as of this encounter (statuses as of 12/01/2022) [address]19-2017 History of Past illness Narrative* Problem Noted Date Diagnosed Date Resolved Date TIFFANIE (acute kidney injury) 12/09/2016 Anticoagulation management encounter 10/27/2016 10/30/2016 Wound drainage 09/23/2016 10/30/2016 Pneumonia 12/15/2016 documented as of this encounter (statuses as of 02/05/2023) [address]19-2017 History of Past illness Narrative* Problem Noted Date Diagnosed Date Resolved Date TIFFANIE (acute kidney injury) 12/09/2016 Anticoagulation management encounter 10/27/2016 10/30/2016 Wound drainage 09/23/2016 10/30/2016 Pneumonia 12/15/2016 documented as of this encounter (statuses as of 02/23/2023) [facility] Future Appointments Appointment Date:05/04/2023 08:15:00 AM Scheduled Provider[facility] evaluation + Plan note Future Appointments Appointment Date:07/21/2024 09:15:00 AM Scheduled Provider:Jerrod BELL MD Location:[facility] Appointment Type:URO Office Visit Diagnostic Tests Pending * PSA Total 07/16/23 [facility] evaluation + Plan note Future Appointments Appointment Date:01/04/2024 10:30:00 AM Scheduled Provider:Jerrod BELL MD Location:[facility] Appointment Type:URO Office Visit Appointment Date:07/21/2024 09:15:00 AM Scheduled Provider:Jerrod BELL MD Location:[facility] Appointment Type:URO Office Visit [facility] Evaluation + Plan note Future Appointments Appointment Date:07/21/2024 09:15:00 AM Scheduled Provider:Jerrod BELL MD Location:[facility] Appointment Type:URO Office Visit [facility] evaluation noteNo Assessments Information Available [facility] Diagnosis Acute deep vein thrombosis (DVT) of distal end of left lower extremity (HCC)- Primary [facility] Diagnosis Acute deep vein thrombosis (DVT) of distal end of left lower extremity (HCC)- Primary [facility]* Diagnosis History of DVT (deep vein thrombosis)- Primary Personal history of venous thrombosis and embolism [facility]* Diagnosis Orthostatic hypotension POTS (postural orthostatic tachycardia syndrome) Tachycardia, unspecified documented in this encounter [facility] Work Phone: evaluation note* Diagnosis POTS (postural orthostatic tachycardia syndrome)- Primary Tachycardia, unspecified Lightheadedness Dizziness and giddiness POTS (postural orthostatic tachycardia syndrome) Tachycardia, unspecified [facility] this [facility]* Diagnosis Lightheadedness- Primary Dizziness and [...] syndrome) Tachycardia, unspecified documented [facility] this encounter [facility]* Diagnosis Chronic diastolic congestive heart failure (HCC)- Primary Chronic diastolic heart failure documented in this encounter [facility]* Diagnosis Ankylosing spondylitis of multiple sites in spine (HCC) Ankylosing spondylitis documented in this encounter [facility]* Diagnosis Exertional dyspnea Other dyspnea and respiratory abnormality Other secondary pulmonary hypertension (HCC) documented in this encounter [facility]* Diagnosis Disturbance of skin sensation- Primary Lightheadedness Dizziness and giddiness Change in blood pressure Other abnormal clinical finding Orthostatic hypotension Tremulousness Abnormal involuntary movements documented in this encounter [facility]* Diagnosis Radiculopathy, lumbar region- Primary Thoracic or lumbosacral neuritis or radiculitis, unspecified Disturbance of skin sensation 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 Pain in right leg Paresthesia of skin Disturbance of skin sensation documented in this encounter [facility]* Diagnosis Dilated cardiomyopathy (HCC)- Primary Other primary cardiomyopathies documented in this encounter [facility]* Diagnosis Ankylosing spondylitis of multiple sites in spine (HCC)- Primary Ankylosing spondylitis documented in this encounter [facility] noteNo assessment information availableProvidence Hospital Work Phone: Evaluation noteNo InformationNorth [employer] 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 Palpitations documented in this encounter [facility] note* Diagnosis Shortness of breath- Primary Near syncope Syncope and collapse documented in this encounter [facility]* Diagnosis Exertional dyspnea Other dyspnea and respiratory abnormality documented in this encounter [facility] note* Diagnosis Onset Date Resolution Status Cellulitis, toe acute [facility] Work Phone: Evaluation note* Diagnosis Onset Date Resolution Status Cellulitis, toe acute Rash acute Pathological fracture, hip, unspecified, sequela acute [facility] Work Phone: evaluation note* Diagnosis Closed fracture of hip, left, with delayed healing, subsequent encounter- Primary Ankylosing spondylitis of multiple sites in spine ([facility]) Ankylosing spondylitis Acute deep vein thrombosis (DVT) of femoral vein of both lower extremities ([facility]) Morbid obesity with BMI of 40.0-44.9, adult ([facility]) Morbid obesity documented in this encounter [facility] note* Diagnosis Pain Generalized pain documented in this encounter [facility]* Diagnosis Closed fracture of hip, left, with delayed healing, subsequent encounter- Primary High serum parathyroid hormone (PTH) documented in this encounter [facility] note* Diagnosis Onset Date Resolution Status Cellulitis, toe acute Rash acute Depression acute Left shoulder pain acute Pathological fracture, hip, unspecified, sequela acute [facility] Work Phone: Evaluation note* Diagnosis Closed fracture of hip, left, with delayed healing, subsequent encounter- Primary documented in this encounter [facility] note* Diagnosis Closed fracture of hip, left, with delayed healing, subsequent encounter documented in this encounter [facility] note* Diagnosis History of DVT (deep vein thrombosis)- Primary Personal history of venous thrombosis and embolism Monoclonal gammopathy Monoclonal paraproteinemia documented in this encounter [facility]* Diagnosis Other hyperparathyroidism (HCC)- Primary Other hyperparathyroidism Closed fracture of hip, left, with delayed healing, subsequent encounter High serum parathyroid hormone (PTH) Osteoporosis, unspecified osteoporosis type, unspecified pathological fracture presence Class 3 severe obesity without serious comorbidity with body mass index (BMI) of 40.0 to 44.9 in adult, unspecified obesity type (HCC) documented in this encounter [facility]* Diagnosis Onset Date Resolution Status Admit Date CHF (congestive heart failure) acute May 13, 2024 10:40am Left cervical radiculopathy acute May 13, 2024 10:40am Lower extremity edema acute Apr 10:40am [facility] Work Phone: Evaluation note* Diagnosis Monoclonal gammopathy- Primary Monoclonal paraproteinemia documented in this encounter [facility] general Narrative - Reported* Type Description Date Medical History Arthritis of spine Medical History Peripheral neuropathy Medical History Tachycardia Medical History Leg cramps Medical History asthma Surgical History back surgery x 3 Surgical History right hip replaced Surgical History right hand x 2 Hospitalization History see above Hospitalization History infected incision and se psis and blood clot [facility] Apparent Other History general Narrative - Reported* Type [...] incision and se psis and blood clot [employer] Other Hospital course Narrative No data available for this section [facility] Hospital Discharge instructionsAmbulatory Orders* Referral to Pain Management Time Frame: 05/13/24, Location: None Selected [facility] Work Phone: Progress note No data available for this section [facility] reason for referral (narrative)* Outpatient Procedure (Routine) - Authorized Specialty Diagnoses / Procedures Referred By Chen t Referred To [facility] Diagnoses POTS (postural orthostatic tachycardia syndrome) Procedures ECG COMPLETE ECG ROUTINE ECG W/LEAST 12 LDS W/I&R Austin Jose MD [address] [facility] [place] [address] Heart [facility] [place] [address] [place] [address] Referral ID Status Reason Start Date Expiration Date Visits Requested Visits Authorized [id number] Authorized Auto-Generat ed Referral 08/16/2022 08/16/2023 1 1 [facility] (narrative)* Diagnostic Procedure Only (Routine) - Closed Specialty Diagnoses / Procedures Referred By Contac t Referred To Contact MOLECULAR & FUNCTIONAL IMAGING Diagnoses Exertional dyspnea Other secondary pulmonary hypertension (HCC) Procedures NM LUNG VENT / PERF VQ PULMONARY VENTILATION & PERFUSION IMAGING Berta Francis MD [address] [place] [address] Molecular & Functional Imaging [address] [place] [address] Referral ID Status Reason Start Date Expiration Date V isits Requested Visits Authorized [id number] Closed Auto-Generate d Referral 08/16/2022 09/15/2023 1 1 [facility] for [facility] (narrative)* Outpatient Procedure (Routine) - Authorized Specialty Diagnoses / Procedures Referred By Contac t Referred To Contact [facility] Diagnoses Disturbance of skin sensation Procedures EMG(NEURO/NI) NERVE CONDUCTION STUDIES 9-10 STUDIES Anna Palacios APRN.ADULT CARE MANAGER [address] [place] [address] Neurological [place] [address] [place] [address] Referral ID Status Reason Start Date Expiration Date Visits Requested Visits Authorized [id number] Authorized Auto-Generat ed Referral 10/06/2022 10/07/2023 1 1 [facility] for referral (narrative)* Outpatient Procedure (Routine) - Authorized Specialty Diagnoses / Procedures Referred By Contac t Referred To Contact [facility] Diagnoses SOB (shortness of breath) Procedures CARDIOPULMONARY EXERCISE TEST PULMONARY STRESS TESTING Wassif, Heba, MD [address] [place] [address] Respiratory [place] [address] [place], [place] [id number] Referral ID Status Reason Start Date Expiration Date Visits Requested Visits Authorized [id number] Authorized Auto-Generat ed Referral 11/17/2022 12/17/2023 1 1 [facility] for referral (narrative)* Diagnostic Procedure Only (Routine) - Closed Specialty Diagnoses / Procedures Referred By Contac t Referred To Contact [facility] Diagnoses Exertional dyspnea Procedures ECHO ECHO TTHRC R-T 2D W/WOM-MODE COMPL SPEC&COLR D Berta Francis MD [address] [id number] [facility] [place] [id number] Referral ID Status Reason Start Date Expiration Date V isits Requested Visits Authorized [id number] Closed Auto-Generate d Referral 08/31/2022 11/29/2022 1 1 [facility] for referral (narrative)* Diagnostic Procedure Only (Routine) - Authorized Specialty Diagnoses / Procedures Referred By Contac t Referred To Contact XR IMAGING Diagnoses Closed fracture of hip, left, with delayed healing, subsequent encounter High serum parathyroid hormone (PTH) Procedures DXA-FOREARM SKELETON DXA BONE DENSITY STUDY 1/>SITES APPENDICLR Alysha Mtecalf MD [address] [phone] Xr Imaging [facility] Referral ID Status Reason Start Date Expiration Date Visits Requested Visits Authorized [id number] Authorized Auto-Generat ed Referral 03/09/2025 1 1 [facility] (narrative)No reason for referral [facility] Narrative* Diagnostic Procedure Only (Routine) - Closed Specialty Diagnoses / Procedures Referred By Contac t Referred To Contact [facility] [place] Diagnoses Exertional dyspnea Procedures ECHO ECHO TTHRC R-T 2D W/WOM-MODE COMPL SPEC&COLR D Berta Francis MD [address] [phone] [facility] Vascular [place] [phone] [place] [phone] Referral ID Status Reason Start Date Expiration Date V isits Requested Visits Authorized [id number] Closed Auto-Generate d Referral 08/31/2022 11/29/2022 1 1 [facility] for visit Narrative* Diagnostic Procedure Only (Routine) - Closed Specialty Diagnoses / Procedures Referred By Contac t Referred To Contact XR IMAGING Diagnoses Pain Procedures XR HIP GENERAL 3V PELV/AP/LAT LEFT RADEX HIP UNILATERAL WITH PELVIS 2-[place] [address] [address] [place] [phone] Xr Imaging [facility] Referral ID Status Reason Start Date Expiration Date V isits Requested Visits Authorized [id number] Closed Auto-Generate d Referral 09/25/2023 10/24/2024 1 1 [facility] for visit Narrative* Diagnostic Procedure Only (Routine) - Closed Specialty Diagnoses / Procedures Referred By Contac t Referred To Contact XR IMAGING Diagnoses Closed fracture of hip, left, with delayed healing, subsequent encounter Procedures XR HIP GENERAL 3V PELV/AP/LAT LEFT RADEX HIP UNILATERAL WITH PELVIS 2-[place] [address] [place] [address] Xr Imaging [facility] Referral ID Status Reason Start Date Expiration Date V isits Requested Visits Authorized [id number] Closed Auto-Generate d Referral 11/28/2023 12/27/2024 1 1 [facility] Advance Directives No Advanced Directives Records Found Advance Directive Response Recorded Date/ Time Advance Directives No January 31, 2017 11:35am Documents on File Type Date Recorded Patient Field Services Analyst Expl anation Advance Directive(s) 11/29/2017 5:55 AM Advance Directive(s) 11/19/2017 8:19 AM Advance Directive(s) 11/19/2017 10:21 AM Advance Directive(s) 12/10/2016 12:37 PM Advance Directive(s) 09/24/2016 2:38 PM Advance Directive(s) 08/24/2016 12:03 PM Advance Directive(s) 08/24/2016 12:04 PM Documents on File Type Date Recorded Patient Field Services Analyst Expl anation Advance Directive(s) 08/24/2016 12:04 PM Documents on File Type Date Recorded Patient Field Services Analyst Expl anation Advance Directive(s) 08/24/2016 12:04 PM [...] 9:12am Occipital neuralgia of left side Februar y 2024 9:12am Other chronic pain June 10, 2024 9:12am Chief Complaint Admit Date Med f/u May 13, 2024 1 0:40am Amb Documentation May 30, 2024 2 :34pm REFF BY DR. SILVANA LUNDBERG June 10, 2024 9:12am M54.2 June 10, 2024 10:03am Chief Complaint Admit Date Med f/u May 13, 2024 1 0:40am Amb Documentation May 30, 2024 2 :34pm REFF BY DR. SILVANA LUNDBERG June 10, 2024 9:12am M54.2 June 10, 2024 10:03am f/u after PT, order MRI July 23, 2024 9:23am Chief Complaint Admit Date Amb Documentation May 30, 2024 2 :34pm REFF BY DR. SILVANA LUNDBERG June 10, 2024 9:12am M54.2 June 10, 2024 10:03am f/u after PT, order MRI July 23, 2024 9:23am M54.2 August 06, 2024 11: 06am Reason for Visit Admit Date Left shoulder pain June 10, 2024 9:12am Neck pain June 10, 2024 9:12am Occipital neuralgia of left side 2024 9:12am Other chronic pain June 10, 2024 9:12am Cervical spondylosis July 23, 2024 9:2 3am Left shoulder pain July 23, 2024 9:23 am Occipital neuralgia of left side July 232024 9:23am Other chronic pain July 23, 2024 9:23 am Chief Complaint Admit Date Amb Documentation May 30, 2024 2 :34pm REFF BY DR. SILVANA LUNDBERG June 10, 2024 9:12am M54.2 June 10, 2024 10:03am f/u after PT, order MRI July 23, 2024 9:23am M54.2 August 06, 2024 11: 06am Review MRI August 19, 2024 9:2 3am Reason for Visit Admit Date Left shoulder pain June 10, 2024 9:12am Neck pain June 10, 2024 9:12am Occipital neuralgia of left side Februar y 2024 9:12am Other chronic pain June 10, 2024 9:12am Cervical spondylosis July 23, 2024 9:2 3am Left shoulder pain July 23, 2024 9:23 am Occipital neuralgia of left side July 232024 9:23am Other chronic pain July 23, 2024 9:23 am Cervical spondylosis August 19, 2024 9: 23am Epicondylitis, lateral, left August 19, 2024 9:23am Left cervical radiculopathy August 19, 2024 9:23am Other chronic pain August 19, 2024 9:2 3am Chief Complaint Admit Date Amb Documentation May 30, 2024 2 :34pm REFF BY DR. SILVANA LUNDBERG June 10, 2024 9:12am M54.2 June 10, 2024 10:03am f/u after PT, order MRI July 23, 2024 9:23am M54.2 August 06, 2024 11: 06am Review MRI August 19, 2024 9:2 3am Left Cervical facet MBB C3,C4,C5,C6 August 28, 2024 10:43am Chief Complaint Admit Date f/u after PT, order MRI July 23, 2024 9:23am M54.2 August 06, 2024 11: 06am Review MRI August 19, 2024 9:2 3am Left Cervical facet MBB C3,C4,C5,C6 August 28, 2024 10:43am FOLLOW UP AFTER CERVICAL MBB September 08, 2 025 10:05am chest congestion September 08, 2024 1:22p m left cervical facet mbb C3, C4, C5, C6 J une 2024 10:55am Reason for Visit Admit Date Cervical spondylosis July 23, 2024 9:2 3am Left shoulder pain July 23, 2024 9:23 am Occipital neuralgia of left side July 232024 9:23am Other chronic pain July 23, 2024 9:23 am Cervical spondylosis August 19, 2024 9: 23am Epicondylitis, lateral, left August 19, 2024 9:23am Left cervical radiculopathy August 19, 2024 9:23am Other chronic pain Karrie 29th, 2025 9:2 3am Cervical spondylosis September 08, 2024 10:0 5am Left cervical radiculopathy September 08 10:05am Other chronic pain September 08, 2024 10:05 am Bronchitis September 08, 2024 1:22p m Chief Complaint Admit Date M54.2 August 06, 2024 11: 06am Review MRI August 19, 2024 9:2 3am Left Cervical facet MBB C3,C4,C5,C6 August 28, 2024 10:43am FOLLOW UP AFTER CERVICAL MBB September 08 025 10:05am chest congestion September 08, 2024 1:22p m left cervical facet mbb C3, C4, C5, C6 J une 2024 10:55am follow up after left cervical mbb September 212024 9:57am left C3,4,5,6 cervical facet RFA October 142024 4:02pm 2 week f/u after left cervical RFA October 28, 2024 2:57pm Reason for Visit Admit Date Cervical spondylosis August 19, 2024 9: 23am Epicondylitis, lateral, left August 19, 2024 9:23am Left cervical radiculopathy August 19, 2024 9:23am Other chronic pain August 19, 2024 9:2 3am Cervical spondylosis September 08, 2024 10:0 5am Left cervical radiculopathy September 08 10:05am Other chronic pain September 08, 2024 10:05 am Bronchitis September 08, 2024 1:22p m Cervical spondylosis October 06, 2024 9:5 7am Left cervical radiculopathy October 06 025 9:57am Other chronic pain October 06, 2024 9:57 am Cervical spondylosis October 28, 2024 2:57 pm Left cervical radiculopathy October 28 2:57pm Other chronic pain October 28, 2024 2:57p m Chief Complaint Admit Date Left Cervical facet MBB C3,C4,C5,C6 August 28, 2024 10:43am FOLLOW UP AFTER CERVICAL MBB September 08, 2 025 10:05am chest congestion September 08, 2024 1:22p m left cervical facet mbb C3, C4, C5, C6 J une 2024 10:55am follow up after left cervical mbb September 212024 9:57am left C3,4,5,6 cervical facet RFA October 142024 4:02pm 2 week f/u after left cervical RFA October 28, 2024 2:57pm 6 week f/u after left cervical RFA Augus t 2024 8:55am Reason for Visit Admit Date Cervical spondylosis September 08, 2024 10:0 5am Left cervical radiculopathy September 08 10:05am Other chronic pain September 08, 2024 10:05 am Bronchitis September 08, 2024 1:22p m Cervical spondylosis October 06, 2024 9:5 7am Left cervical radiculopathy October 06, 9:57am Other chronic pain October 06, 2024 9:57 am Cervical spondylosis October 28, 2024 2:57 pm Left cervical radiculopathy October 28 2:57pm Other chronic pain October 28, 2024 2:57p m Cervical spondylosis November 25, 2024 8: 55am Epicondylitis, lateral, left November 25, 2024 8:55am Other chronic pain November 25, 2024 8:5 5am Chief Complaint Admit Date left cervical facet mbb C3, C4, C5, C6 J une 2024 10:55am follow up after left cervical mbb September 212024 9:57am left C3,4,5,6 cervical facet RFA October 142024 4:02pm 2 week f/u after left cervical RFA October 28, 2024 2:57pm 6 week f/u after left cervical RFA Augus t 2024 8:55am M77.12 December 10, 2024 8: 42am Reason for Visit Admit Date Cervical spondylosis October 06, 2024 9:5 7am Left cervical radiculopathy October 06, 2 025 9:57am Other chronic pain October 06, 2024 9:57 am Cervical spondylosis October 28, 2024 2:57 pm Left cervical radiculopathy October 28 2:57pm Other chronic pain October 28, 2024 2:57p m Cervical spondylosis November 25, 2024 8: 55am Epicondylitis, lateral, left November 25, 2024 8:55am Other chronic pain November 25, 2024 8:5 5am Summary Purpose Family History No Family History [...] HIGH COMPLEX 45 MINS Esther Pelayo PA-C [address] [phone] Re[facility] [place] [address] [place] [address] Referral ID Status Reason Start Date Expiration Date Visits Requested Visits Authorized [id number] Pending Review Auto-Generat ed Referral 11/29/2023 11/28/2024 1 1 Specialty Diagnoses / Procedures Referred By Contac t Referred To Contact XR IMAGING Diagnoses Closed fracture of hip, left, with delayed healing, subsequent encounter Procedures XR HIP GENERAL 3V PELV/AP/LAT LEFT RADEX HIP UNILATERAL WITH PELVIS 2-[place] [address] [place] [phone] Xr Imaging [facility] Referral ID Status Reason Start Date Expiration Date V isits Requested Visits Authorized [id number] Closed Auto-Generate d Referral 11/28/2023 12/27/2024 1 1 Specialty Diagnoses / Procedures Referred By Contac t Referred To Contact Diagnoses Closed fracture of hip, left, with delayed healing, subsequent encounter High serum parathyroid hormone (PTH) Procedures CONSULT TO HIP FRACTURE LIAISON SERVICE (FRAGILITY) OFFICE/OUTPATIENT NEW HIGH MDM 60 [place] [address] [place] [address] Referral ID Status Reason Start Date Expiration Date Visits Requested Visits Authorized [id number] Authorized PCP Requested Referral 09/28/2023 09/27/2024 1 1 Specialty Diagnoses / Procedures Referred By Contac t Referred To Contact Endocrinology Diagnoses Closed fracture of hip, left, with delayed healing, subsequent encounter Procedures CONSULT TO ENDOCRINOLOGY OFFICE/OUTPATIENT NEW HIGH MDM 60 MINUTES Padubidri, [place] [address] [address] [place] [phone] Referral ID Status Reason Start Date Expiration Date Visits Requested Visits Authorized [id number] Authorized PCP Requested Referral 09/27/2023 09/26/2024 1 1 Specialty Diagnoses / Procedures Referred By Contac t Referred To Contact MR IMAGING Diagnoses Dilated cardiomyopathy (HCC) Procedures MRI CARDIAC VELOCITY FLOW MAP CARDIAC MRI FOR VELOCITY FLOW MAPPING Berta Francis MD [address] [place] [address] Mr Imaging Referral ID Status Reason Start Date Expiration Date Visits Requested Visits Authorized [id number] Pending Review Auto-Generat ed Referral 10/17/2022 11/16/2023 1 1 Specialty Diagnoses / Procedures Referred By Contac t Referred To Contact MR IMAGING Diagnoses Dilated cardiomyopathy (HCC) Procedures MRI CARDIAC MORPH FUNC WO/W IVCON CARDIAC MRI W/WO CONTRAST & FURTHER SEQ Berta Francis MD [address] [place] [address] Mr Imaging Referral ID Status Reason Start Date Expiration Date Visits Requested Visits Authorized [id number] Pending Review Auto-Generat ed Referral 10/17/2022 11/16/2023 1 1 Specialty Diagnoses / Procedures Referred By Contac t Referred To Contact Neurology Diagnoses Lightheadedness Change in blood pressure Procedures CONSULT TO NEUROLOGY OFFICE/OUTPATIENT [facility] MDM 60-74 MINUTES Berta Francis MD [address] [facility] [address] Referral ID Status Reason Start Date Expiration Date Visits Requested Visits Authorized [id number] Authorized PCP Requested Referral 08/16/2022 08/16/2023 1 1 Specialty Diagnoses / Procedures Referred By Contac t Referred To Contact Rheumatology Diagnoses Ankylosing spondylitis of multiple sites in spine (HCC) Procedures CONSULT TO RHEUM/IMMUN DISEASE OFFICE/OUTPATIENT [facility] MDM 60-74 MINUTES Berta Francis MD [address] [place] [address] Referral ID Status Reason Start Date Expiration Date V isits Requested Visits Authorized [id number] Closed PCP Requested Referral 08/16/2022 08/16/2023 1 1 Specialty Diagnoses / Procedures Referred By Contac t Referred To Contact Diagnoses Lightheadedness POTS (postural orthostatic tachycardia syndrome) Autonomic dysfunction Procedures CONSULT TO [facility] OFFICE/OUTPATIENT NEW HIGH MDM 60-74 MINUTES Berta Francis MD [address] [place] [address] Referral ID Status Reason Start Date Expiration Date Visits Requested Visits Authorized [id number] Authorized PCP Requested Referral 08/16/2022 08/16/2023 1 1 Specialty Diagnoses / Procedures Referred By Contac t Referred To Contact MOLECULAR & FUNCTIONAL IMAGING Diagnoses Exertional dyspnea Other secondary pulmonary hypertension (HCC) Procedures NM LUNG VENT / PERF VQ PULMONARY VENTILATION & PERFUSION IMAGING Berta Francis MD [address] [place] [address] Molecular & Functional Imaging [address] [place] [address] Referral ID Status Reason Start Date Expiration Date Visits Requested Visits Authorized [id number] Pending Review Auto-Generat ed Referral 08/16/2022 09/15/2023 1 1 Specialty Diagnoses / Procedures Referred By Contac t Referred To Contact [facility] [place] Diagnoses Exertional dyspnea Procedures ECHO ECHO TTHRC R-T 2D W/WOM-MODE COMPL SPEC&COLR D Berta Francis MD [address] [place] [address] [facility] Vascular [place] [address] [place] [address] Referral ID Status Reason Start Date Expiration Date Visits Requested Visits Authorized [id number] Pending Review Auto-Generat ed Referral 08/16/2022 08/16/2023 1 1 Specialty Diagnoses / Procedures Referred By Contac t Referred To Contact [facility] [place] Diagnoses Lightheadedness Change in blood pressure Procedures ECG COMPLETE ECG ROUTINE ECG W/LEAST 12 LDS W/I&R Berta Francis MD [address] [place] [address] [facility] [place] [address] [place] [address] Referral ID Status Reason Start Date Expiration Date V isits Requested Visits Authorized [id number] Closed Auto-Generate d Referral 06/27/2022 06/27/2023 1 1 Specialty Diagnoses / Procedures Referred By Contac t Referred To Contact Diagnoses Orthostatic hypotension POTS (postural orthostatic tachycardia syndrome) Procedures Tilt Table Test Carlos Krishna APRN - NP [address] [facility] [place] [address] Referral ID Status Reason Start Date Expiration Date Visits Re quested Visits Authorized [id number] Closed 07/24/2022 07/24/2023 1 1 Additional Source Comments (unrecognized sect ion and content) No Status Records FoundNo Status Records FoundNo Status Records FoundNo Status Records FoundNo Status Records FoundNo Status Records FoundNo Status Records FoundNo Status Records FoundNo Status Records FoundNo Status Records FoundNo Status Records Found INFORMATION SOURCE (unrecogn ized section and content) DATE CREATED AUTHOR 06/29/2021 [facility] DATE CREATED AUTHOR AUTHOR'S ORGANIZ ATION [facility] DATE CREATED AUTHOR AUTHOR'S ORGANIZ ATION 09/07/2022 [facility] DATE CREATED AUTHOR AUTHOR'S ORGANIZ ATION 08/01/2023 [facility] DATE CREATED AUTHOR AUTHOR'S ORGANIZ ATION 12/05/2023 [facility] DATE CREATED AUTHOR AUTHOR'S ORGANIZ ATION 12/29/2023 [facility] DATE CREATED AUTHOR AUTHOR'S ORGANIZ ATION [facility]/20[facility] DATE CREATED AUTHOR AUTHOR'S ORGANIZ ATION 07/22/2024 [facility] DATE CREATED AUTHOR AUTHOR'S ORGANIZ ATION 07/23/2024 [facility] DATE CREATED AUTHOR AUTHOR'S ORGANIZ ATION 12/11/2024 [facility] DATE CREATED AUTHOR AUTHOR'S ORGANIZ ATION 12/12/2024 [facility] Source Comments (unrecognize d section and content) In the event this informatio n is protected by the Federal Confidentiality of Alcohol and Drug Abuse Patient Records regulations: The Federal rules restrict any use of the information to criminally investigate or prosecute any alcohol or drug abuse patient.[facility] the event this information is protected by the Federal Confidentiality of Alcohol and Drug Abuse Patient Records regulations: The Federal rules restrict any use of the information to criminally investigate or prosecute any alcohol or drug abuse patient.[facility] the event this information is protected by the Federal Confidentiality of Alcohol and Drug Abuse Patient Records regulations: The Federal rules restrict any use of the information to criminally investigate or prosecute any alcohol or drug abuse patient.[facility] the event this information is protected by the Federal Confidentiality of Alcohol and Drug Abuse Patient Records regulations: The Federal rules restrict any use of the information to criminally investigate or prosecute any alcohol or drug abuse patient.[facility] the event this information is protected by the Federal Confidentiality of Alcohol and Drug Abuse Patient Records regulations: The Federal rules restrict any use of the information to criminally investigate or prosecute any alcohol or drug abuse patient.[facility] the event this information is protected by the Federal Confidentiality of Alcohol and Drug Abuse Patient Records regulations: The Federal rules restrict any use of the information to criminally investigate or prosecute any alcohol or drug abuse patient.[facility] the event this information is protected by the Federal Confidentiality of Alcohol and Drug Abuse Patient Records regulations: The Federal rules restrict any use of the information to criminally investigate or prosecute any alcohol or drug abuse patient.[facility] the event this information is protected by the Federal Confidentiality of Alcohol and Drug Abuse Patient Records regulations: The Federal rules restrict any use of the information to criminally investigate or prosecute any alcohol or drug abuse patient.[facility] the event this information is protected by the Federal Confidentiality of Alcohol and Drug Abuse Patient Records regulations: The Federal rules restrict any use of the information to criminally investigate or prosecute any alcohol or drug abuse patient.[facility] the event this information is protected by the Federal Confidentiality of Alcohol and Drug Abuse Patient Records regulations: The Federal rules restrict any use of the information to criminally investigate or prosecute any alcohol or drug abuse patient.[facility] [place] the event this information is protected by the Federal Confidentiality of Alcohol and Drug Abuse Patient Records regulations: The Federal rules restrict any use of the information to criminally investigate or prosecute any alcohol or drug abuse patient.[facility] [place]In the event this information is protected by the Federal Confidentiality of Alcohol and Drug Abuse Patient Records regulations: The Federal rules restrict any use of the information to criminally investigate or prosecute any alcohol or drug abuse patient.[facility] [place]In the event this information is protected by the Federal Confidentiality of Alcohol and Drug Abuse Patient Records regulations: The Federal rules restrict any use of the information to criminally investigate or prosecute any alcohol or drug abuse patient.[facility] [place]In the event this information is protected by the Federal Confidentiality of Alcohol and Drug Abuse Patient Records regulations: The Federal rules restrict any use of the information to criminally investigate or prosecute any alcohol or drug abuse patient.[facility] [place]stownIn the event this information is protected by the Federal Confidentiality of Alcohol and Drug Abuse Patient Records regulations: The Federal rules restrict any use of the information to criminally investigate or prosecute any alcohol or drug abuse patient.[facility] [place]stownIn the event this information is protected by the Federal Confidentiality of Alcohol and Drug Abuse Patient Records regulations: The Federal rules restrict any use of the information to criminally investigate or prosecute any alcohol or drug abuse patient.[facility] [place]stownIn the event this information is protected by the Federal Confidentiality of Alcohol and Drug Abuse Patient Records regulations: The Federal rules restrict any use of the information to criminally investigate or prosecute any alcohol or drug abuse patient.[facility] [place]stownIn the event this information is protected by the Federal Confidentiality of Alcohol and Drug Abuse Patient Records regulations: The Federal rules restrict any use of the information to criminally investigate or prosecute any alcohol or drug abuse patient.[facility] [place]In the event this information is protected by the Federal Confidentiality of Alcohol and Drug Abuse Patient Records regulations: The Federal rules restrict any use of the information to criminally investigate or prosecute any alcohol or drug abuse patient.[facility] [place]stownIn the event this information is protected by the Federal Confidentiality of Alcohol and Drug Abuse Patient Records regulations: The Federal rules restrict any use of the information to criminally investigate or prosecute any alcohol or drug abuse patient.[facility] [place]stownIn the event this information is protected by the Federal Confidentiality of Alcohol and Drug Abuse Patient Records regulations: The Federal rules restrict any use of the information to criminally investigate or prosecute any alcohol or drug abuse patient.[facility] [place]stownIn the event this information is protected by the Federal Confidentiality of Alcohol and Drug Abuse Patient Records regulations: The Federal rules restrict any use of the information to criminally investigate or prosecute any alcohol or drug abuse patient.[facility] [place]stownIn the event this information is protected by the Federal Confidentiality of Alcohol and Drug Abuse Patient Records regulations: The Federal rules restrict any use of the information to criminally investigate or prosecute any alcohol or drug abuse patient.[facility] [place]stownIn the event this information is protected by the Federal Confidentiality of Alcohol and Drug Abuse Patient Records regulations: The Federal rules restrict any use of the information to criminally investigate or prosecute any alcohol or drug abuse patient.[facility] [place]stownIn the event this information is protected by the Federal Confidentiality of Alcohol and Drug Abuse Patient Records regulations: The Federal rules restrict any use of the information to criminally investigate or prosecute any alcohol or drug abuse patient.[facility] [place]stownIn the event this information is protected by the Federal Confidentiality of Alcohol and Drug Abuse Patient Records regulations: The Federal rules restrict any use of the information to criminally investigate or prosecute any alcohol or drug abuse patient.[facility] [place]stownIn the event this information is protected by the Federal Confidentiality of Alcohol and Drug Abuse Patient Records regulations: The Federal rules restrict any use of the information to criminally investigate or prosecute any alcohol or drug abuse patient.[facility] [place]stownIn the event this information is protected by the Federal Confidentiality of Alcohol and Drug Abuse Patient Records regulations: The Federal rules restrict any use of the information to criminally investigate or prosecute any alcohol or drug abuse patient.[facility] [place]stownIn the event this information is protected by the Federal Confidentiality of Alcohol and Drug Abuse Patient Records regulations: The Federal rules restrict any use of the information to criminally investigate or prosecute any alcohol or drug abuse patient.[facility] [place]stownIn the event this information is protected by the Federal Confidentiality of Alcohol and Drug Abuse Patient Records regulations: The Federal rules restrict any use of the information to criminally investigate or prosecute any alcohol or drug abuse patient.[facility] [place]stownIn the event this information is protected by the Federal Confidentiality of Alcohol and Drug Abuse Patient Records regulations: The Federal rules restrict any use of the information to criminally investigate or prosecute any alcohol or drug abuse patient.[facility] [place]stownIn the event this information is protected by the Federal Confidentiality of Alcohol and Drug Abuse Patient Records regulations: The Federal rules restrict any use of the information to criminally investigate or prosecute any alcohol or drug abuse patient.[facility] [place]stownIn the event this information is protected by the Federal Confidentiality of Alcohol and Drug Abuse Patient Records regulations: The Federal rules restrict any use of the information to criminally investigate or prosecute any alcohol or drug abuse patient.[facility] [place]stownIn the event this information is protected by the Federal Confidentiality of Alcohol and Drug Abuse Patient Records regulations: The Federal rules restrict any use of the information to criminally investigate or prosecute any alcohol or drug abuse patient.[facility] [place]stownIn the event this information is protected by the Federal Confidentiality of Alcohol and Drug Abuse Patient Records regulations: The Federal rules restrict any use of the information to criminally investigate or prosecute any alcohol or drug abuse patient.[facility] [place] Care Teams (unrecognized sec tion and content) Team Status: Active Member Role Status Dates Silvana Lundberg MD Primary Care Provider Active Team Status: Active Member Role Status Dates Silvana Lundberg MD Primary Care Provider Active Start: September 25, 2024 Frederic Zamarripa MD Attending Provider Active Sta rt: September 25, 2024 Team Status: Inactive Member Role Status Dates Silvana Lundberg MD Primary Care Provider Active Start: September 25, 2024 End: September 25, 2024 Frederic Zamarripa MD Attending Provider Active Sta rt: September 25, 2024 End: September 25, 2024 Team Status: Inactive Member Role Status Dates Silvana Lundberg MD Primary Care Provider Active Start: October 06, 2024 End: October 06, 2024 Frederic Zamarripa MD Attending Provider Active Sta rt: October 06, 2024 End: October 06, 2024 Team Status: Active Member Role Status Ezequiel Lundberg MD Primary Care Provider Active Start: October 14, 2024 Frederic Zamarripa MD Attending Provider Active Sta rt: October 14, 2024 Team Status: Inactive Member Role Status Ezequiel Lundberg MD Primary Care Provider Active Start: October 14, 2024 End: October 14, 2024 Frederic Zamarripa MD Attending Provider Active Sta rt: October 14, 2024 End: October 14, 2024 Team Status: Inactive Member Role Status Dates Silvana Lundberg MD Primary Care Provider Active Start: October 28, 2024 End: October 28, 2024 Estella Tadeo NP Attending Provider Active Start: October 28, 2024 End: October 28, 2024 Team Status: Active Member Role Status Ezequiel Lundberg MD Primary Care Provider Active Start: October 31, 2024 Safia Enrique APRN Attending Provider Active Start: October 31, 2024 Team Status: Inactive Member Role Status Ezequiel Lundberg MD Primary Care Provider Active Start: November 25, 2024 End: November 25, 2024 Frederic Zamarripa MD Attending Provider Active Sta rt: November 25, 2024 End: November 25, 2024 Team Status: Inactive Member Role Status Dates Silvana Lundberg MD Primary Care Provider Active Start: December 10, 2024 End: December 10, 2024 Frederic Zamarripa MD Attending Provider Active Sta rt: December 10, 2024 End: December 10, 2024 Team Status: Inactive Member Role Status Dates Silvana Lundberg MD Primary Care Provider Active Start: August 06, 2024 End: August 06, 2024 Estella Tadeo NP Attending Provider Active Start: August 06, 2024 End: August 06, 2024 Team Status: Inactive Member Role Status Dates Silvana Lundberg MD Primary Care Provider Active Start: August 19, 2024 End: August 19, 2024 Frederic Zamarripa MD Attending Provider Active Sta rt: August 19, 2024 End: August 19, 2024 Team Status: Inactive Member Role Status Dates Silvana Lundberg MD Primary Care Provider Active Start: August 28, 2024 End: August 28, 2024 Frederic Zamarripa MD Attending Provider Active Sta rt: August 28, 2024 End: August 28, 2024 Team Status: Active Member Role Status Dates Silvana Lundberg MD Primary Care Provider Active Start: August 28, 2024 Frederic Zamarripa MD Attending Provider Active Sta rt: August 28, 2024 Team Status: Inactive Member Role Status Dates Silvana Lundberg MD Primary Care Provider Active Start: September 08, 2024 End: September 08, 2024 Frederic Zamarripa MD Attending Provider Active Sta rt: September 08, 2024 End: September 08, 2024 Team Status: Inactive Member Role Status Dates Silvana Lundberg MD Primary Care Provider Active Start: September 08, 2024 End: September 08, 2024 Silvana Lundberg MD Attending Provider Active St art: September 08, 2024 End: September 08, 2024 Team Status: Active Member Role Status Dates Silvana Lundberg MD Primary Care Provider Active Start: May 28, 2024 Mary Diaz DO Attending Provider Active Sta rt: May 28, 2024 Team Status: Active Member Role Status Dates Silvana Lundberg MD Primary Care Provider Active Start: May 28, 2024 Tony Deleon DO Attending Provider Active Sta rt: May [...] 2024 End: June 10, 2024 Team Status: Active Member Role Status Dates Silvana Lundberg MD Primary Care Provider Active Start: July 14, 2024 Nikkie Trejo MD Attending Provider Active Start: July 14, 2024 Team Status: Active Member Role Status Dates Silvana Lundberg MD Primary Care Provider Active Start: July 19, 2024 Jerrod Bell MD Attending Provider Active St art: July 19, 2024 Team Status: Inactive Member Role Status Dates Silvana Lundberg MD Primary Care Provider Active Start: July 23, 2024 End: July 23, 2024 Estella Tadeo NP Attending Provider Active Start: July 23, 2024 End: July 23, 2024 Team Status: Inactive Member Role Status [...] Member Role Status Dates Eugenia Landon APRN TILE AND MOTTLE SUPERVISOR-C Attending Provider Act audelia Start: July 06, [...] Care Provider Active Start: 2023 End: 2023 LAURENT Munson Attending Provider Active Start: 2023 End: 2023 [...] 2023 Keeley More Attending Provider Active Start: [facility] 2023 Fire Code Inspector Relationship Specialty Start Date End Date Silvana Lundberg MD [address] [place] [facility] [address] PCP - General Family Practice 07/15/15 Samuel Burnette Referring Pain Management 07/15/15 Fire Code Inspector Relationship Specialty Start Date End Date Silvana Lundberg MD [address] [place] [address] PCP - General Family Practice 07/15/15 Samuel Burnette Referring Pain Management 07/15/15 Fire Code Inspector Relationship Specialty Start Date End Date Silvana Lundberg MD [address] [place] [facility] [address] PCP - General Family Practice 07/15/15 Samuel Burnette Referring Pain Management 07/15/15 Fire Code Inspector Relationship Specialty Start Date End Date Silvana Lundberg MD [address] [place] [facility] [place] [address] PCP - General Family Practice 07/15/15 Samuel Burnette Referring Pain Management 07/15/15 Fire Code Inspector Relationship Specialty Start Date End Date Silvana Lundberg MD [address] [place] [facility] [address] PCP - General Family Medicine 07/15/15 Samuel Burnette Referring Pain Management 07/15/15 Fire Code Inspector Relationship Specialty Start Date End Date Silvana Lundberg MD [address] [place] [facility] [address] PCP - General Family Medicine 07/15/15 Samuel Burnette [address] [place] [facility] [address] Referring Pain Management 07/15/15 Fire Code Inspector Relationship Specialty Start Date End Date Silvana Lundberg MD [address] [place] [facility] [place] [address] PCP - General Family Medicine 07/25/22 Fire Code Inspector Relationship Specialty Start Date End Date Silvana Lundberg MD [address] [place] [facility] [place] [address] PCP - General Family Medicine 07/15/15 Samuel Burnette [address] [place] [facility] [address] Referring Pain Management 07/15/15 Maria Teresa Storey, ADULT CARE MANAGER [address] [facility] [place] [address] Family Medicine 08/16/22 Fire Code Inspector Relationship Specialty Start Date End Date Silvana Lundberg MD [address] [place] [facility] [place] [address] PCP - General Family Medicine 07/15/15 Samuel Burnette [address] [place] [facility] [address] Referring Pain Management 07/15/15 Maria Teresa Storey, ADULT CARE MANAGER [address] [place] [address] Family Medicine 08/16/22 Fire Code Inspector Relationship Specialty Start Date End Date Silvana Lundberg MD [address] [place] [facility] [place] [address] PCP - General Family Medicine 07/15/15 Samuel Burnette [address] [place] [facility] [address] Referring Pain Management 07/15/15 Maria Teresa Storey, ADULT CARE MANAGER [address] [place] [address] Family Medicine 08/16/22 Fire Code Inspector Relationship Specialty Start Date End Date Silvana Lundberg MD [address] [place] [facility] [place] [address] PCP - General Family Medicine 07/15/15 Samuel Burnette [address] [place] [facility] [address] Referring Pain Management 07/15/15 Maria Teresa Storey, ADULT CARE MANAGER [address] [place] [address] Family Medicine 08/16/22 Fire Code Inspector Relationship Specialty Start Date End Date Silvana Lundberg MD [address] [place] [facility] [place] [address] PCP - General Family Medicine 07/15/15 Samuel Burnette [address] [place] [facility] [address] Referring Pain Management 07/15/15 Maria Teresa Storey, ADULT CARE MANAGER [address] [place] [address] Family Medicine 08/16/22 Fire Code Inspector Relationship Specialty Start Date End Date Silvana Lundberg MD [address] [place] [facility] [place] [address] PCP - General Family Medicine 07/15/15 Samuel Burnette [address] [place] [facility] [address] Referring Pain Management 07/15/15 Maria Teresa Storey, ADULT CARE MANAGER [address] [place] [address] Family Medicine 08/16/22 Fire Code Inspector Relationship Specialty Start Date End Date Silvana Lundberg MD [address] [place] [facility] [place] [address] PCP - General Family Medicine 07/15/15 Samuel Burnette [address] [place] [facility] [place] [address] Referring Pain Management 07/15/15 Maria Teresa Storey, ADULT CARE MANAGER [address] [facility] 1 [place] [address] Family Medicine 08/16/22 Fire Code Inspector Relationship Specialty Start Date End Date Silvana Lundberg MD [address] [place] [facility] [place] [address] PCP - General Family Medicine 07/15/15 Samuel Burnette [address] [place] [facility] [place] [address] Referring Pain Management 07/15/15 Maria Teresa Storey, ADULT CARE MANAGER [address] [facility] 1 [place] [address] Family Medicine 08/16/22 Fire Code Inspector Relationship Specialty Start Date End Date Silvana Lundberg MD [address] [place] [facility] [place] [address] PCP - General Family Medicine 07/15/15 Samuel Burnette [address] [place] [facility] [address] Referring Pain Management 07/15/15 Maria Teresa Storey, ADULT CARE MANAGER [address] [facility] [place] [address] Family Medicine 08/16/22 Fire Code Inspector Relationship Specialty Start Date End Date Silvana Lundberg MD [address] [place] [facility] [address] PCP - General Family Medicine 07/15/15 Samuel Burnette [address] [place] [facility] [place] [address] Referring Pain Management 07/15/15 Maria Teresa Storey, ADULT CARE MANAGER [address] [facility] 1 [place] [address] [facility] 08/16/22 Team Status: Inactive Member Role Status Dates Silvana Lundberg MD Attending Provider Active Fire Code Inspector Relationship Specialty Start Date End Date Silvana Lundberg MD [address] [place] [facility] [place] [address] PCP - General Family Medicine 07/15/15 Samuel Burnette [address] [place] [facility] [place] [address] Referring Pain Management 07/15/15 Maria Teresa Storey CNP [address] [facility] 1 [place] [address] [facility] 08/16/22 Team Status: Active Member Role Status Dates PHYSICIAN NO FAMILY Primary Care Provider Active Team Status: Inactive Member Role Status Dates Silvana Lundberg MD Attending Provider Active PHYSICIAN NO FAMILY Primary Care Provider Active Team Status: Inactive Member Role Status Dates PHYSICIAN NO FAMILY Primary Care Provider Active Brad Hodges MD Attending Provider Active Fire Code Inspector Relationship Specialty Start Date End Date Silvana Lundberg MD [address] [place] [facility] [address] PCP - General Family Medicine 07/15/15 Samuel Burnette [address] [place] [facility] [place] [address] Referring Pain Management 07/15/15 Maria Teresa Storey CNP [address] [facility] 1 [place] [address] Family Medicine 08/16/22 Fire Code Inspector Relationship Specialty Start Date End Date Silvana Lundberg MD [address] [place] [facility] [place] [address] PCP - General Family Medicine 07/15/15 Samuel Burnette [address] [place] [facility] [place] [address] Referring Pain Management 07/15/15 Maria Teresa Storey CNP [address] [facility] 1 [place] [address] [facility] Medicine 08/16/22 Team Status: Inactive Member Role Status Dates PHYSICIAN NO FAMILY Primary Care Provider Active Start: May 03, 2023 End: May 03, 2023 Brad Hodges MD Attending Provider Active St art: May 03, 2023 End: May 03, 2023 Fire Code Inspector Relationship Specialty Start Date End Date Silvana Lundberg MD [address] [place] [address] PCP - General Family Medicine 07/15/15 Samuel Burnette [address] [place] [facility] [place] [address] Referring Pain Management 07/15/15 Maria Teresa Storey CNP [address] [facility] 1 [place] [address] Family Medicine 08/16/22 Asher [address] [place] [address] Referring Orthopedics 09/12/23 Fire Code Inspector Relationship Specialty Start Date End Date Silvana Lundberg MD [address] [place] [facility] [place] [address] PCP - General Family Medicine 07/15/15 Samuel Burnette [address] [place] [facility] [place] [address] Referring Pain Management 07/15/15 Maria Teresa Storey CNP [address] [facility] [place] [address] Family Medicine 08/16/22 Asher Sk[address]gs [address] [place] [address] Referring Orthopedics 09/12/23 Fire Code Inspector Relationship Specialty Start Date End Date Silvana Lundberg MD [address] [place] [facility] [place] [address] PCP - General Family Medicine 07/15/15 Samuel Burnette [address] [place] [facility] [place] [address] Referring Pain Management 07/15/15 Maria Teresa Storey CNP [address] [facility] [place] [address] Family Medicine 08/16/22 Asher Sk[address] [place] [address] Referring Orthopedics 09/12/23 Fire Code Inspector Relationship Specialty Start Date End Date Silvana Lundberg MD [address] [place] [facility] [place] [address] PCP - General Family Medicine 07/15/15 Samuel Burnette [address] [place] [facility] [place] [address] Referring Pain Management 07/15/15 Maria Teresa Storey, SAHIL [address] [facility] [address] [address] Family Medicine 08/16/22 Asher Skag[address] [place] [address] Referring Orthopedics 09/12/23 Fire Code Inspector Relationship Specialty Start Date End Date Silvana Lundberg MD [address] [place] [facility] [place] [address] PCP - General Family Medicine 07/15/15 Samuel Burnette [address] [place] [facility] [place] [address] Referring Pain Management 07/15/15 Maria Teersa Storey, ADULT CARE MANAGER [address] [facility] 1 [place] [address] Family Medicine 08/16/22 Asher Sk[address] [place] [address] Referring Orthopedics 09/12/23 Fire Code Inspector Relationship Specialty Start Date End Date Silvana Lundberg MD [address] [place] [facility] [place] [address] PCP - General Family Medicine 07/15/15 Samuel Burnette [address] [place] [place] [address] Referring Pain Management 07/15/15 Maria Teresa Storey CNP [address] [facility] 1 [place] [address] Family Medicine 08/16/22 Asher [address] [place] [address] Referring Orthopedics 09/12/23 Fire Code Inspector Relationship Specialty Start Date End Date Silvana Lundberg MD [address] [place] [place] [address] PCP - General Family Medicine 07/15/15 Samuel Burnette [address] [place] [place] [address] Referring Pain Management 07/15/15 Maria Teresa Storey CNP [address] [facility] 1 [place] [address] Family Medicine 08/16/22 Asher [address] [place] [address] Referring Orthopedics 09/12/23 Fire Code Inspector Relationship Specialty Start Date End Date Silvana Lundberg MD [address] [place] [place] [address] PCP - General Family Medicine 07/15/15 Samuel Burnette [address] [place] [address] Referring Pain Management 07/15/15 Maria Teresa Storey, SAHIL [address] [facility] 1 [place] [address] Family Medicine 08/16/22 Asher [address] [place] [address] Referring Orthopedics 09/12/23 Fire Code Inspector Relationship Specialty Start Date End Date Silvana Lundberg MD [address] [place] [address] PCP - General Family Medicine 07/15/15 Samuel Burnette [address] [place] [phone] Referring Pain Management 07/15/15 Maria Teresa Storey, [facility] [address] [facility] 1 [place] [address] Family Medicine 08/16/22 Asher Skaggs [address] [place] [address] Referring Orthopedics 09/12/23 Fire Code Inspector Relationship Specialty Start Date End Date Silvana Lundberg MD [address] [place] [address] PCP - General Family Medicine 07/15/15 Samuel Burnette [address] [place] [id number] Referring Pain Management 07/15/15 Maria Teresa Storey CNP [address] [facility] 1 [facility] [place] [address] Family Medicine 08/16/22 Asher Skaggs [address] [place] [address] Referring Orthopedics 09/12/23 Team Status: Inactive Member Role Status Dates Silvana Lundberg MD Primary Care Provide r, Attending Provider Active Start: September 08, 2024 End: September 08, 2024 Fire Code Inspector Relationship Specialty Start Date End Date Silvana Lundberg MD [address] [place] [address] PCP - General Family Medicine 07/15/15 Samuel Burnette [address] [place] [phone] Referring Pain Management 07/15/15 Maria Teresa Storey CNP [address] [facility] 1 [facility] [place] [address] Family Medicine 08/16/22 Asher Skaggs [address] [facility] [place] [address] Referring Orthopedics 09/12/23 Reason for Visit (unrecogniz ed section and [...] Tilt Table Test Carlos Krishna APRN - TILE AND MOTTLE SUPERVISOR [address] [facility] [place] [address] Referral ID Status Reason Start Date Expiration Date V isits Requested Visits Authorized [id number] Not Required - RTA 07/24/2022 07/24/2023 1 [...] OXYGEN SATURATION AND CARDIAC OUTPUT [facility] [employer] [employer] [address] [place] [address] Referral ID Status Reason Start Date Expiration Date Visits Re quested Visits Authorized [id number] 1 1 Reason Comments Ankylosing Spondylitis Specialty Diagnoses / Procedures Referred By Contac t Referred To Contact Rheumatology Diagnoses Ankylosing spondylitis of multiple sites in spine (HCC) Procedures CONSULT TO RHEUM/IMMUN DISEASE OFFICE/OUTPATIENT [facility] HIGH MDM 60-74 MINUTES Berta Francis MD [address] [place] [address] Referral ID Status Reason Start Date Expiration Date V isits Requested Visits Authorized [id number] Closed PCP Requested Referral 08/16/2022 08/16/2023 1 1 Reason Comments Radiology NM Specialty Diagnoses / Procedures Referred By Contac t Referred To Contact MOLECULAR & FUNCTIONAL IMAGING Diagnoses Exertional dyspnea Other secondary pulmonary hypertension (HCC) Procedures NM LUNG VENT / PERF VQ PULMONARY VENTILATION & PERFUSION IMAGING Berta Francis MD [address] [place] [address] Molecular & Functional Imaging [address] [place] [address] Referral ID Status Reason Start Date Expiration Date V isits Requested Visits Authorized [id number] Closed Auto-Generate d Referral 08/16/2022 09/15/2023 1 1 Reason Comments New Patient Specialty Diagnoses / Procedures Referred By Contac t Referred To Contact Neurology Diagnoses Lightheadedness Change in blood pressure Procedures CONSULT TO NEUROLOGY OFFICE/OUTPATIENT NEW HIGH MDM 60-74 MINUTES Berta Francis MD [address] [place] [id number] Referral ID Status Reason Start Date Expiration Date V isits Requested Visits Authorized [id number] Closed PCP Requested Referral 08/16/2022 08/16/2023 1 1 Reason Onset Date Comments EMG 10/16/2022 Specialty Diagnoses / Procedures Referred By Contac t Referred To Contact [facility] Diagnoses Disturbance of skin sensation Procedures EMG(NEURO/NI) NERVE CONDUCTION STUDIES 9-10 STUDIES Anna Palacios, [place] [address] [facility] [place] [address] [place] [address] Referral ID Status Reason Start Date Expiration Date V isits Requested Visits Authorized [id number] Closed Auto-Generate d Referral 10/06/2022 10/07/2023 1 [...] HIGH M[place] [address] [place] [id number] Referral ID Status Reason Start Date Expiration Date V isits Requested Visits Authorized [id number] Closed PCP Requested Referral 09/28/2023 09/27/2024 1 1 Reason Comments Medication Problem Teriparatide 20 mcg/ dose (600mcg/2.4mL Reason Comments Refill Request Goals (unrecognized section and content) Goals may [...] BE BASED ON THE PRIMARY CLINICAL RECORDS. [facility]. provides no warranty or guarantee of the accuracy or completeness of information in this document.
[2025-01-05 10:14] LABS: Alanine Aminotransferase 53 U/L (16-63); Aspartate Amino Transferase 20 U/L (15-37); Cholesterol 112 mg/dL (<=200); HDL Cholesterol 41 mg/dL (40-60); Triglycerides 55 mg/dL (<=150); VLDL CHOLESTEROL 11.0 mg/dL
== END 2025-01-05 09:08 | disposition home or self-care (01) ==
LOC: LAB 09:07
PROVIDERS: PCP Family Medicine; Visit Provider Internal Medicine Cardiovascular Disease
DX: E78.00 Pure hypercholesterolemia, unspecified (principal)
CPT/HCPCS: 36415; 80061; 84450; 84460

== ENCOUNTER 2025-03-10 13:42 | Outpatient (OUT) | payer MEDICARE, SELFPAY ==
--- OUTSIDE RECORDS SUMMARY | 2025-03-10 13:52 | XMS_ITS | CCD ---
Author Organization [facility] Care Team Providers Care Retail Aide Name Role Phone Silvana Lundberg Primary Care Provider [phone] Aleksey Perez Attending Provider Silvana Lundberg MD [...] Referring Unavailable SILVANA LUNDBERG Primary Care Unavailable Cordeliasania BAXTER, Maria Teresa Unavailable CARLOS KRISHNA Attending [...] Care Unavailable ALGHOTHANI, MOHAMARuss Admitting Unavailable ALGHOTHANI, MOHJEAN CARLOSD Attending Unavailable [...] LUNDBERG, DR SILVANA Ko Primary Care Unavailable Tamika, MD Silvana Ko Attending Provider [phone] NO FAMILY, PHYSICIAN Primary Care Provider Unava MD Brad Lynch Attending Provider NO FAMILY, PHYSICIAN Primary Care Provider Unava MD Brad Lynch Attending Provider NO FAMILY, PHYSICIAN Primary Care Provider Unava MD Brad Lynch Attending Provider ANNA COLLINS Attending Unavailable EUGENIA LANDNO Referring Unavailab ANNA Isaac Attending Unavailable Silvana Lundberg MD Primary Care Provider Cordelia BAXTER, Maria Teresa Unavailable Asher Skaggs Unavailable MD Silvana Lundberg Primary Care Provider LAURENT Enrique Attending Provider PADUBIDRI, ANOKHA Referring Unavailable SILVANA LUNDBERG Primary Care Unavailable PADUBIDRI, ANOKHA Attending Unavailable SILVANA LUNDBERG Primary Care Unavailable PADUBIDRI, ANOKHA Referring Unavailable SILVANA LUNDBERG Primary Care Unavailable PADUBIDRI, ANOKHA Referring Unavailable SILVANA LUNDBERG Primary Care Unavailable PADUBIDRI, ANOKHA Attending Unavailable PADUBIDRI, ANOKHA Referring Unavailable SILVANA LUNDBERG Primary Care Unavailable Silvana Lundberg MD Primary Care Provider Frederic Zamarripa MD Attending Provider SHAGGY MUÑOZ Attending Unavailab SHAGGY Hall Attending Unavailab EUGENIA Hall Attending Unavailable Jerrod BELL Attending Unavailable Jerrod BELL Referring Unavailable Jerrod BELL Admitting Unavailable Jerrod BELL Attending Unavailable Silvana Lundberg MD Primary Care Provider Frederic Zamarripa MD Attending Provider Asher Skaggs Unavailable Estella Tadeo NP Attending Provider Silvana Lundberg MD Primary Care Provider Frederic Zamarripa MD Attending Provider Silvana Lundberg MD Attending Provider [phone] Silvana Lundberg MD Primary Care Provider Frederic Zamarripa MD Attending Provider Carlyle CARBON CAP[employer] POWER PLANT OPERATOR, Estella Attending Provider [phone] Safia Enrique APRN Attending Provider Silvana Lundberg MD Primary Care Provider Frederic Zamarripa MD Attending Provider [phone] Silvana Lundberg Primary Care Unavailable Dallin, Frederic S Admitting Unavailable Frederic Zamarripa Attending Unavailable Carlyle Estella Attending Unavailable Silvana Lundberg Primary Care Unavailable Francheska Tadeogy Admitting Unavailable Silvana Lundberg Primary Care Unavailable Omar Zamarripaif S Admitting Unavailable Frederic Zamarripa S Attending Unavailable ALYSHA EMANUEL Referring Unavailable SILVANA LUNDBERG Primary Care Unavailable SILVANA LUNDBERG Primary Care Unavailable PADUBIDTYRONE ANOKHA Referring Unavailable ALYSHA EMANUEL Attending Unavailable SILVANA LUNDBERG Primary Care Unavailable NIKKIE TREJO Attending Unavailable BALBIR PORRAS Attending Unavailable BALBIR PORRAS Attending Unavailable Allergies Allergy ClassificationReported Allergen(s)Allergy TypeDate of OnsetReaction(s) FacilityAngiotensin 2 Receptor Blockers (ARB) (1 source)LosartanDrug Mxftmkp31-55-4090ZnjaqfgDfafbbddp ClinicAngiotensin Converting Enzyme (HORTENCIA) Inhibitors (1 source)LisinoprilDrug Jhdorux25-04-5241CbeykxdYqorxzpix ClinicOpioid Agonists (1 source)MorphineDrug Engudkl91-80-1617KkwddlqchqqGmpsvvpiy Clinic Work Phone: (20 sources)Lisinopril; Translations: [lisinopril]Drug Ksnamgg84-53-7795Rllijct [facility] (20 sources)Morphine; Translations: [morphine]Drug Iskurte07-28-8957Flanqxmtttg [facility] Work Phone: Comment on above:Tolerated hydromorphone during 11/2016 admission (20 sources)Losartan; Translations: [LOSARTAN]Drug Qtsqcar68-18-5661Eimeodi [facility] (2 sources)MorphineDrug Afjjpuw08-83-1795Cbj [facility] Repository (2 sources)patient allergy list reviewed by nurse or physiciaPropensity to adverse xzjttavfh68-84-7711Cgsfhay:[place] Other (2 sources)Allergies ReconciledPropensity to adverse reactionsSaint [facility] Other (1 source)LisinoprilDrug Kihjnpn77-32-5218QrspzblbtBarnesville Hospital [facility] (1 source)MorphineDrug Pkaxuyu62-13-2016UikpflkbzBarnesville Hospital Repository Medications Current Medications MedicationDrug Class(es)DatesSig (Normalized)Sig (Original)[id number] 200 actuat albuterol 0.09 mg/actuat metered dose inhaler (20 sources)beta2-Adrenergic AgonistStart: 88-37-0978artt 2 puff(s) by inhalation every four to six hours as needed for wheezingStart: 09-08-2024 End: 88-10-0439yjrv 1 puff(s) by inhalation every four to six hours as needed for wheezingAlbuterol Sulfate 90 mcg/actuation HFA aerosol inhaler Discontinued 2 PUFF INHALATION EVERY 4-6 HOURS as needed for shortness of breath or wheezing 6.7 September 08, 2024 12:00am October 09, 2024 12:17pmStart: 07-06-2023 End: 08-15-6834ncra 1 puff(s) by inhalation every four hours as neededAlbuterol Sulfate 90 mcg/actuation HFA aerosol inhaler Discontinued 1 PUFF INHALATION Every 4 hoursas needed July 06, 2023 12:00am October 01, 2023 9:14amStart: 09-20-2021 End: 98-44-0796txmhvqpgv HFA (PROVENTIL HFA, VENTOLIN HFA) 90 mcg/actuation inhalertake 1 puff(s) by inhalation every four hours as neededAlbuterol Sulfate HFA 108 (90 Base) MCG/ACT 1 puff as needed Inhalation every 4 hrs PRN Activetake 1 puff(s) by inhalation every four hours as neededAlbuterol Sulfate HFA 108 (90 Base) MCG/ACT 1 puff as needed Inhalation every 4 hrs PRN ActiveAlbuterol Sulfate 90 mcg/actuation HFA aerosol inhaler (1 source)Start: 40-94-0843eokt 1 puff(s) by inhalation every four to six hours as needed for wheezingAlbuterol Sulfate 90 mcg/actuation HFA aerosol inhaler Active 2 PUFF INHALATION EVERY 4-6 HOURS as needed for shortness of breath or wheezing 6.7 September 08, 2024 12:00amAmitriptyline (3 sources)Tricyclic AntidepressantAmitriptyline HCl Active End: 44-32-8476pimy 1 tablet by mouth once daily at bedtimeamitriptyline (ELAVIL) 50 mg tablet Take 50 mg by mouth daily at bedtime. 0 09/21/2021 DiscontinuedComment on above:Take 50 mg by mouth daily at bedtime.amoxicillin 875 mg / clavulanate 125 mg oral tablet (3 sources)Penicillin-class AntibacterialStart: 52-17-8307rzkx 1 tablet by mouth every twelve hoursAmoxicillin-Pot Clavulanate 875-125 MG 1 tablet Orally every 12 hrs for 10 days Nov, ActiveAspir 81 (4 sources)Start: 61-65-8312djgs 81 mg by mouth once dailyAspir 81 81 mg, Oral, Daily, Refills(s) 0, Prophylaxis Start Date: 11/19/16 Status: Orderedaspirin 81 mg chewable tablet (20 sources)Platelet Aggregation Inhibitor, Nonsteroidal Anti-inflammatory Drug Start: 81-40-5261wjpg 1 tablet by mouth once dailytake 81 mg by mouth once daily ASPIRIN ORAL Take 81 mg by mouth once daily. Activetake 1 tablet by mouth every twenty-four hoursAspirin 81 MG 1 tablet Orally Once a day ActiveComment on above:Take 81 mg by mouth once daily.atorvastatin 40 mg oral tablet (20 sources)HMG-CoA Reductase InhibitorStart: 13-05-7078ialn 1 tablet by mouth once dailyComment on above:Take 40 mg by mouth once daily.azithromycin 250 mg oral tablet (4 sources)Macrolide AntimicrobialStart: 10-75-7974hlcrwkx citrate 950 mg oral tablet (5 sources)Start: 77-90-1623wyzg 1 tablet by mouth twice dailycalcium citrate (CALCITRATE) 200 mg (950 mg) tab Take 1 tablet by mouth two times a day. 180 tablet3 02/08/2024 Activecholecalciferol 1.25 mg oral capsule (6 sources)Vitamin DStart: 02-08-2024 End: 04-41-3995jfit 1 capsule by mouth every weekcholecalciferol, Vitamin D3, (VITAMIN D3) 1,250 mcg (50,000 unit) cap capsule TAKE 1 CAPSULE BY MOUTH ONE TIME A WEEK. 12 capsule 1 07/30/2024 Activecyclobenzaprine (18 sources)Muscle RelaxantStart: 01-08-9522jsiavarkwejwnjx Refills(s) 0 Start Date: 07/16/23 Status: Ordered End: 88-06-4204ngfx 1 tablet by mouth three times dailycyclobenzaprine (FLEXERIL) 10 mg tablet Take 10 mg by mouth three times daily. 0 10/06/2022 Discontinued (Course of therapy completed)Comment on above:Take 10 mg by mouth three times daily.diclofenac sodium 0.01 mg/mg topical gel (1 source)Nonsteroidal Anti-inflammatory DrugStart: 29-51-2595ORKfycbdwv 60 mg delayed release oral capsule (20 sources)Serotonin and Norepinephrine Reuptake InhibitorStart: 51-27-5725ssxo 1 capsule by mouth twice dailyStart: 85-40-9194awdk 60 mg by mouth twice daily Cymbalta 60 mg, Oral, BID, Refills(s) 0, Depression Start Date: 10/14/13 Status: OrderedDULoxetine HCl ActiveComment on above:Take 60 mg by mouth twice daily. folic acid 1 mg oral tablet (20 sources)Start: 21-84-8109zcww 1 tablet by mouth once dailyFolic Acid Active Comment on above:Take 1 mg by mouth once daily.iv contrast (will be provided with radiology test) (2 sources)Start: 10-17-2022 End: 90-53-2014de contrast (will be provided with radiology test) MRI Cardiac w/Qflow Inject, intravenously, once for 1 dose. No IV access, insert saline lock prior to the beginning of sedation, infusion, injectionof imaging exam. Discontinue saline lock post exam. If Pt has a central line or IVAD, may access for administration according to line specific nursing protocol. Once exam is complete flush line and de-access according to line specific nursing protocol in the MR contrast administration guidelines link 1 Each 0 10/17/2022 10/18/2022 ActiveComment on above:MRI Cardiac w/Qflow Inject, intravenously, once for 1 dose. No IV access, insert saline lock prior to the beginning of sedation, infusion, injection of imaging exam. Discontinue saline lock post exam. If Pt has a central line or IVAD, may access for administration according to line specific nursingprotocol. Once exam is complete flush line and de-access according to line specific nursing protocol in the MR contrast administration guidelines linkleflunomide 20 mg oral tablet (20 sources)Antirheumatic AgentStart: 48-26-1148wjmk 1 tablet by mouth once dailyLeflunomide ActiveComment on above:Take 20 mg by mouth once daily. methotrexate 2.5 mg oral tablet (20 sources)Folate Analog Metabolic InhibitorStart: 11-03-8290woty 1 tablet by mouth every weekStart: 97-35-7430mzydmersumcv 2.5 mg Tab 25 mg = 10 tab(s), Oral, q7day, # 4 tab(s), Refills(s) 0, Arthritis Start Date: 12/09/16 Status: Orderedtake 5 tablets by mouth every weekmethotrexate 2.5 mg tablet Take 12.5 mg by mouth one time a week. Activetake 12.5 mg by mouth every weekMethotrexate 2.5 MG 12.5mg Orally weekly Activetake 2 tablets by mouth every weekmethotrexate 2.5 mg tablet Take 5 mg by mouth one time a week. 0 ActiveMethotrexate Active Comment on above:Take 12.5 mg by mouth once each week. Take 5 mg by mouth one time a week. Take 12.5 mg by mouth one time a week.methylPREDNISolone 4 mg tab dosepak (1 source)Start: 82-98-6692kjgjgvXEHHMHMgvpmp 4 mg tab dosepak Refills(s) 0 Start Date: 05/01/22 Status: Xtoxemd56 hr metoprolol succinate 50 mg extended release oral tablet (20 sources)beta-Adrenergic BlockerStart: 53-14-2433vsik 1 tablet by mouth once dailyStart: 69-50-8637ubhy 1 tablet by mouth once dailyMetoprolol Succinate 50 mg tablet extended release 24 hr Active 0 .ROUTE .COMPLEX 90 August 26, 2024 2 :26pm TAKE 1 TABLET BY MOUTH EVERY DAYStart: 07-06-2023 End: 52-45-2498wnoj 1 capsule by mouth once dailyMetoprolol Succinate 25 mg capsule,sprinkle,ER 24hr Discontinued 25 MG PO Daily July 06, 2023 12:00am October 01, 2023 9:44amStart: 06-04-2022 End: 95-18-8352dfjy 1 tablet by mouth once dailyMetoprolol Succinate 50 mg tablet extended release 24 hr Discontinued 50 MG PO daily October 01, 2023 12:00am March 04, 2024 11:44amStart: 97-06-7151cocn 50 mg by mouth once dailymetoprolol succinate ER (TOPROL XL) 100 mg Take 50 mg by mouth once daily. 0 06/04/2022 ActiveStart: 01-15-7539ovnb 100 mg by mouth once dailymetoprolol succinate ER (TOPROL XL) 100 mg Take 100 mg by mouth once daily. 0 06/04/2022 ActiveStart: 12-15-2016 End: 44-75-5150hxns 1 tablet by mouth once dailymetoprolol succinate ER (TOPROL XL) 25 mg 24 hr tablet Take 1 tablet by mouth once daily. 0 12/15/2016 09/21/2021 DiscontinuedStart: 52-55-7827pjso 1 tablet by mouth once daily Metoprolol succinate 25 mg ER Tablet 25 mg, Oral, Daily, Refills(s) 0, High blood pressure Start Date: 11/19/16 Status: Orderedtake 1 capsule by mouth once dailyMetoprolol Succinate 50 MG 1 capsule Orally Once a day ActiveMetoprolol Succinate ActiveComment on above:Take 1 tablet by mouth once daily.Take 100 mg by mouth once daily.Take 50 mg by mouth once daily.omeprazole 20 mg delayed release oral capsule (20 sources)Proton Pump InhibitorStart: 85-83-0463quum 1 capsule by mouth once dailyStart: 12-92-7136yoqy 20 mg by mouth once dailyomeprazole 20 mg, Oral, Daily, Refills(s) 0, Control of stomach acid Start Date: 10/14/13 Status: Ordered Omeprazole ActiveComment on above:Take 20 mg by mouth once daily.oxaprozin 600 mg oral tablet (20 sources)Nonsteroidal Anti-inflammatory DrugStart: 24-65-5502jqmv 1 tablet by mouth twice dailytake 2 tablets by mouth once dailyoxaprozin (DAYPRO) 600 mg tablet Take 1,200 mg by mouth once daily. ActiveComment on above:Take 1,200 mg by mouth once daily.oxyCODONE (9 sources)Opioid AgonistStart: 87-19-9341tovknzpyr Refills(s) 0 Start Date: 07/16/23 Status: OrderedoxyCODONE HCl Not-TakingoxyCODONE HCl Activeperflutren lipid microspheres 1.3 mL in NaCl (PF) 0.9% 10 mL injection (DEFINITY) (18 sources)Start: 08-16-2022 End: 25-09-5530gqdafiuczc lipid microspheres 1.3 mL in NaCl (PF) 0.9% 10 mL injection (DEFINITY)sildenafil 100 mg oral tablet (3 sources)Phosphodiesterase 5 InhibitorStart: 07-63-4828rypehwwpiv 100 mg Tab 100 mg = 1 tab(s), Oral, As Directed, 1 hour before sexual activity, # 30 tab( s), Refills(s) 4, Pharmacy: [facility]/pharmacy #[id number], 188, cm, 07/16/23 10:06:00 EDT, Height/Length Dosing, 134, kg, 07/16/23 10:06:00 EDT, Weight Dosing Start Date: 07/16/23 Status: Bzulszp446 ml sodium chloride 9 mg/ml prefilled syringe (18 sources)Start: 08-16-2022 End: 46-94-4906myduom chloride 0.9 % (flush) 10 mL (BD POSIFLUSH)Sodium polystyrene sulfonate (8 sources)Start: 73-74-4618Oqxte: 50-60-5414Kfvgzl Polystyrene Sulfonate 15 GM/60ML 60 mL Orally Once a day for 2 days Sep, Activesulfamethoxazole 800 mg / trimethoprim 160 mg oral tablet (4 sources)Dihydrofolate Reductase Inhibitor Antibacterial, Sulfonamide AntimicrobialStart: 23-40-2437qvhi 1 tablet by mouth every twelve hoursBactrim DS 800-160 MG 1 tablet Orally Twice a day for 10 day(s) Oct, Active tamsulosin hydrochloride 0.4 mg oral capsule (20 sources)alpha-Adrenergic BlockerStart: 11-51-0414jiba 1 capsule by mouth once dailyStart: 27-94-3370afcf 1 capsule by mouth twice dailytamsulosin 0.4 mg Cap 0.4 mg = 1 cap(s), Oral, BID, # 180 caplet(s), Refills(s) 3, Pharmacy: [facility]/pharmacy #[id number], 188, cm, 05/01/22 9:58:00 EST, Height/Length Dosing, 131.8, kg, 05/01/22 9:58:00 EST, Weight Dosing Start Date: 11/20/22 Status: Ordered Start: 26-58-8672iwix 1 capsule by mouth twice dailytamsulosin 0.4 mg Cap 0.4 mg = 1 cap(s), Oral, BID, # 180 caplet(s), Refills(s) 3, [id number], cm, 07/04/21 9:20:00 EDT, Height/Length Dosing, 131.8, kg, 07/04/21 9:20:00 EDT, Weight Dosing Start Date: 07/04/21 Status: OrderedComment on above: Take 0.4 mg by mouth once daily.28 actuat teriparatide 0.02 mg/actuat pen injector (8 sources)Parathyroid Hormone AnalogStart: 49-12-2132adxlik 20 ug by subcutaneous injection once dailyFORTEO 20 mcg/dose (600mcg/2.4mL) Take 20 mcg subcutaneously daily 7.2 mL 3 04/07/2024 ActivetraMADol hydrochloride 50 mg oral tablet (7 sources)Opioid AgonistStart: 63-30-5649mpdl 1 tablet by mouth three times daily as neededtraMADol HCl 50 MG 1 tablet as needed Orally tid prn for 7 days PRN Oct, Active Completed/Discontinued Medications MedicationDrug Class(es)DatesSig (Normalized)Sig (Original)acetaminophen 325 mg / oxyCODONE hydrochloride 5 mg oral tablet (20 sources)Opioid AgonistStart: 10-01-2023 End: 96-66-6421pgbo 1 tablet by mouth twice daily as needed for painOxycodone- Acetaminophen 5-325 mg tablet Discontinued 1 TAB PO Twice daily as needed for pain 30 October 01, 2023 October 01, 2023 9:52amStart: 10-01-2023 End: 97-22-1338xbwd 1 tablet by mouth twice daily as needed for painOxycodone- Acetaminophen 5-325 mg tablet Discontinued 1 TAB PO Twice daily as needed for pain 30 October 01, 2023 May 13, 2024 11:48amStart: 06-20-2023 End: 68-49-8015tivl 1 tablet by mouth twice daily as needed for painOxycodone- Acetaminophen 5-325 mg tablet Discontinued 1 TAB PO Twice daily as needed for pain 60 June 20, 2023 September 05, 2023 8:36amStart: 70-98-9874yvsWJMONZ- acetaminophen (PERCOCET) 5-325 mg tablet three times a day as needed. 03/29/2023 ActiveStart: 19-79-8043tkvl 1 tablet by mouth twice daily as neededPercocet 5- 325 MG 1 tablet as needed Orally bid prn for 30 days Mar, ActiveStart: 01-22-2017 End: 09-39-7580jtqm 1 tablet by mouth every eight hours as neededoxyCODONE- acetaminophen (PERCOCET) 5-325 mg tablet Take 1 tablet by mouth every 8 hours as needed. 0 01/22/2017 09/21/2021 DiscontinuedComment on above:Take 1 tablet by mouth every 8 hours as needed. ARIPiprazole 5 mg oral tablet (20 sources)Atypical AntipsychoticStart: 11-28-2023 End: 65-36-0775vjxz 1 tablet by mouth once daily at bedtimeAripiprazole 5 mg tablet Discontinued 0 .ROUTE .COMPLEX June 19, 2024 2:13pm October 21, 2024 4:04pm TAKE 1 TABLET BY MOUTH EVERYDAY AT BEDTIMEStart: 10-01-2023 End: 44-23-0819peqx 4 tablets by mouth once daily at bedtimeAripiprazole (Abilify) 5 mg tablet Discontinued 20 MG PO Daily at bedtime October 01, 2023 9:15am October 01, 2023 12:38pmStart: 09-05-2023 End: 26-97-2700egyp 1 tablet by mouth once daily at bedtimeAripiprazole (Abilify) 5 mg tablet Discontinued 5 MG PO Daily at bedtime October 01, 2023 12:00amA2023 10:00pmB-12 - up to 1000 mcg (16 sources)Start: 85-65-7017E-12 - up to 1000 mcg Dec, 1000 mcgStart: 15-52-0820Z-12 - up to 1000 mcg Oct, 1000 mcgStart: 70-26-5283Q-12 - up to 1000 mcg Sep, 1000 xen168 actuat budesonide 0.16 mg/actuat / formoterol fumarate 0.0045 mg/actuat metered dose inhaler (20 sources)Corticosteroid, beta2-Adrenergic AgonistStart: 07-06-2023 End: 84-80-4674tqaq 1 puff(s) by inhalation twice dailyBudesonide-Formoterol (Symbicort) 160-4.5 mcg/actuation HFA aerosol inhaler Discontinued 2 PUFF INHA LATION Twice daily July 06, 2023 12:00am October 01, 2023 9:16amStart: 05-31-2022 End: 41-91-5138gvcc 2 puff(s) by inhalation every twelve hoursbudesonide- formoterol (SYMBICORT) 160-4.5 mcg/actuation inhaler Inhale 2 Puffs as instructed q 12 HR. 0 05/31/2022 02/05/2023 Discontinued (Other)Start: 62-03-2925doph 2 puff(s) by inhalation every twelve hoursbudesonide-formoterol (SYMBICORT) 160-4.5 mcg/actuation inhaler Inhale 2 Puffs as instructed q 12 HR. 0 05/31/2022 Activetake 2 puff(s) by inhalation twice dailySymbicort 160-4.5 MCG/ACT 2 puffs Inhalation Twice a day ActiveComment on above:Inhale 2 Puffs as instructed q 12 HR.carvedilol 6.25 mg oral tablet (2 sources)alpha-Adrenergic Julius, beta-Adrenergic Julius End: 33-90-3428shfj 1 tablet by mouth twice daily at mealtimecarvedilol (COREG) 6.25 mg tablet Take 6.25 mg by mouth twice daily with meals. 0 09/21/2021 DiscontinuedComment on above:Take 6.25 mg by mouth twice daily with meals. cephalexin 500 mg oral capsule (14 sources)Cephalosporin AntibacterialStart: 07-06-2023 End: 59-67-1718sbun 1 capsule by mouth twice dailyCephalexin 500 mg capsule Discontinued 500 MG PO Twice daily 14 7 July 06, 2023 12:00am August 31, 2023 11:10amferrous sulfate 325 mg oral tablet (20 sources)Start: 07-06-2023 End: 62-89-4808pqej 1 tablet by mouth three times weeklyFerrous Sulfate 325 mg (65 mg iron) tablet Discontinued 325 MG PO 3 Times a week July 06, 2023 12 :00am August 31, 2023 11:11amStart: 04-28-2023 End: 20-14-1602pvyv 1 tablet by mouth three times weeklyferrous sulfate 325 mg (65 mg iron) tablet Take 1 tablet by mouth three times a week. 0 04/28/2023 0 12/04/2023 Discontinuedtake 1 tablet by mouth three times weeklyFerrous Sulfate 325 (65 Fe) MG 1 tablet Orally Three times a Week for 30 days Activefluticasone propionate 0.05 mg/actuat metered dose nasal spray (17 sources)CorticosteroidStart: 07-06-2023 End: 15-38-9259Rvnfndmfpux Propionate 50 mcg/actuation spray,suspension Discontinued 1 SPRAY INTRANASAL Daily July 06, 2023 12:00am August 31, 2023 11:11amStart: 76-40-7591lige 1 spray(s) nasal route once dailyFluticasone Propionate 50 MCG/ACT 1 spray in each nostril Nasally Once a day for 30 days Nov, ActiveFOLIC ACID/MULTIVIT-MIN/LUTEIN (CENTRUM SILVER ORAL) (2 sources) End: 46-36-4617nyaz 1 tablet by mouth once dailyFOLIC ACID/MULTIVIT-MIN/LUTEIN (CENTRUM SILVER ORAL) Take by mouth. Take one(1) tablet daily. 0 09/21/2021 Discontinuedtake 1 tablet by mouth once dailyFOLIC ACID/MULTIVIT-MIN/LUTEIN (CENTRUM SILVER ORAL) Take by mouth. Take one(1) tablet daily. 0 ActiveComment on above:Take by mouth. Take one(1) tablet daily.furosemide 20 mg oral tablet (3 sources)Loop Diuretic End: 09-92-3082yuzl 1 tablet by mouth once dailyfurosemide (LASIX) 20 mg tablet Take 20 mg by mouth once daily. 0 12/28/2021 Discontinued (Discontinued by another Health Care Provider)Comment on above:Take 20 mg by mouth once daily. gabapentin 300 mg oral capsule (20 sources)Anti-epileptic AgentStart: 78-27-9831qkpb 3 tablets by mouth twice dailygabapentin 300 mg Cap = 3 tab(s), Oral, BID, Refills(s) 0 Start Date: 07/16/23 Status: OrderedStart: 07-06-2023 End: 77-93-2840agmx 1 capsule by mouth three times dailyGabapentin 300 mg capsule Discontinued 300 MG PO Three times daily 90 May 13, 2024 12:09pm July 11, 2024 10:27amStart: 67-23-5509xnex 3 capsules by mouth three times dailyStart: 08-23-2017 End: 59-78-8449gunk 1 tablet by mouth three times dailygabapentin (NEURONTIN) 600 mg tablet Take 1 tablet by mouth three times daily for 30 days. 90 tablet 1 08/23/2017 09/21/2021 DiscontinuedGabapentin ActiveComment on above:Take 1 tablet by mouth three times daily for 30 days.Take 3 capsules by mouth three times daily for 30 days.levoFLOXacin 500 mg oral tablet (10 sources)Quinolone AntimicrobialStart: 07-04-2021 End: 74-36-2028tkliJNKPwbsv (LEVAQUIN) 500 mg tablet Take 750 mg by mouth once daily. 0 07/04/2021 08/16/2022 Discontinued (Course of therapy completed)Comment on above:Take 750 mg by mouth once daily. meloxicam 15 mg oral tablet (2 sources)Nonsteroidal Anti-inflammatory DrugStart: 08-06-2019 End: 46-61-9237zivm 0.5 tablet by mouth once dailymeloxicam (MOBIC) 15 mg tablet TAKE 1/2 TABLET BY MOUTH EVERY DAY 15 tablet 1 08/06/2019 09/21/2021 DiscontinuedComment on above:TAKE 1/2 TABLET BY MOUTH EVERY DAYmidodrine hydrochloride 10 mg oral tablet (8 sources)alpha-Adrenergic AgonistStart: 07-12-2022 End: 67-36-3294hrwf 1 tablet by mouth three times dailymidodrine (PROAMATINE) 10 mg tablet Take 10 mg by mouth three times daily. 0 07/12/2022 10/06/2022 D iscontinued (Course of therapy completed)Comment on above:Take 10 mg by mouth three times daily.nystatin 041657 unt/ml oral suspension (6 sources)Polyene AntifungalStart: 26-62-6054dlwe 4 mL by mouth four times dailyNystatin 317431 UNIT/ML 4 ml Mouth/Throat Four times a day for 10 day(s) Apr, Not-TakingpredniSONE 50 mg oral tablet (15 sources)Start: 09-20-2021 End: 28-03-4625eeugdeUFJR (DELTASONE) 50 mgpyridostigmine bromide 60 mg oral tablet (8 sources)Start: 08-10-2022 End: 69-81-3056vnnf 1 tablet by mouth three times dailypyridostigmine (MESTINON) 60 mg tablet Take 60 mg by mouth three times daily. 0 08/10/2022 10/06/2022 Discontinued (Course of therapy completed)Comment on above:Take 60 mg by mouth three times daily.spironolactone 25 mg oral tablet (20 sources)Aldosterone AntagonistStart: 01-31-2024 End: 91-35-0490yfkl 0.5 tablet by mouth once dailySpironolactone 25 mg tablet Discontinued 0 .ROUTE .COMPLEX July 02, 2024 12:41pm October 06, 2024 4:37pm TAKE 1/2 TABLET BY MOUTH EVERYDAYStart: 10-01-2023 End: 02-33-7262Pggrbqidzbthje 25 mg tablet Discontinued 12.5 MG PO Daily October 01, 2023 9:44am January 31, 2024 1:03pmStart: 05-01-2022 End: 92-54-8763llwa 1 tablet by mouth once dailySpironolactone 25 mg tablet Discontinued 25 MG PO Daily July 06, 2023 12:00am October 01, 2023 9:46am spironolactone (ALDACTONE) 25 mg tablet Take 17.5 mg by mouth once daily. Active Comment on above:Take 25 mg by mouth once daily.Take 17.5 mg by mouth once daily.tiZANidine 4 mg oral tablet (3 sources)Central alpha-2 Adrenergic AgonistStart: 10-30-2016 End: 70-74-9664vofl 2 tablets by mouth every eight hours as neededtiZANidine (ZANAFLEX) 4 mg tablet Take 2 tablets by mouth three times daily as needed. 0 DiscontinuedtiZANidine HCl ActiveComment on above:Take 2 tablets by mouth three times daily as needed.triamcinolone acetonide 1 mg/ml topical cream (14 sources)CorticosteroidStart: 07-06-2023 End: 70-78-5758Ulrevyskrwjkj Acetonide 0.1 % cream Discontinued 1 APPLIC TOPICAL Twice daily 80 July 06, 2023 12:00am October 01, 2023 9:17am24 hr venlafaxine 150 mg extended release oral capsule (20 sources)Serotonin and Norepinephrine Reuptake InhibitorStart: 01-31-2024 End: 51-70-2872jcnt 1 capsule by mouth once daily at mealtimeVenlafaxine 150 mg capsule,extended release 24hr Discontinued 0 .ROUTE .COMPLEX January 31, 2024 1:03pm May 13, 2024 12:10pm TAKE 1 CAPSULE BY MOUTH EVERY DAY WITH FOOD FOR 30 DAYSStart: 99-74-8761rcgf 1 capsule by mouth once dailyvenlafaxine 150 mg Cap-ER 150 mg = 1 cap(s), Oral, Daily, Refills(s) 0 Start Date: 07/16/23 Status: OrderedStart: 07-09-2023 End: 08-97-0601pdlp 1 capsule by mouth once daily at mealtimeVenlafaxine 150 mg capsule,extended release 24hr Discontinued 0 .ROUTE .COMPLEX May 13, 2024 12:10pm August 14, 2024 9:40am TAKE 1 CAPSULE BY MOUTH EVERY DAY WITH FOOD FOR 30 DAYSStart: 07-06-2023 End: 51-99-1232muvw 1 capsule by mouth once dailyVenlafaxine 150 mg capsule,extended release 24hr Discontinued 150 MG PO Daily July 06, 2023 12:00am July 09, 2023 10:07amStart: 55-06-0942hlsi 1 capsule by mouth once dailyvenlafaxine ER (EFFEXOR XR) 75 mg 24 hr capsule Take 150 mg by mouth once daily. 05/08/2022 ActiveStart: 32-48-4740eryt 1 capsule by mouth once daily venlafaxine ER (EFFEXOR XR) 75 mg 24 hr capsule Take 75 mg by mouth once daily. 0 05/08/2022 ActiveVenlafaxine HCl ER 150 MG TAKE 1 CAPSULE BY MOUTH EVERY DAY WITH FOOD FOR 30 DAYS for 30 ActiveComment on above:Take 75 mg by mouth once daily.Take 150 mg by mouth once daily. Problems Active Problems Problem ClassificationProblemDateDocumented DateEpisodic/ChronicAcute bronchitis (4 sources)Acute bronchitis; Translations: [Acute bronchitis due to other specified organisms]Onset: 76-22-8827IylbgenzEvikrdhc reactions (3 sources)Allergic disposition; Translations: [Allergy, unspecified, initial encounter]EpisodicAsthma (20 sources)Moderate persistent asthma; Translations: [Moderate persistent asthma, uncomplicated]ChronicBlindness and vision defects (2 sources)Visual disturbance; Translations: [Other visual disturbances]Episodic Calculus of urinary tract (20 sources)Kidney stone; Translations: [Calculus of kidney]29-76-3473Spzurqow Cardiac dysrhythmias (3 sources)Postural orthostatic tachycardia syndrome ; Translations: [POTS (postural orthostatic tachycardia syndrome)]ChronicCardiac dysrhythmias (20 sources)Sinus tachycardia; Translations: [Tachycardia, unspecified]Onset: 485115-79-3944OxtodeawOccgmmj kidney disease (20 sources)Chronic kidney disease stage 3; Translations: [Stage 3 chronic kidney disease, unspecified whether stage 3a or 3b CKD]37-55-1919McxiersOdeldzv obstructive pulmonary disease and bronchiectasis (9 sources)Bronchitis; Translations: [Bronchitis, not specified as acute or chronic]29-70-7043GfsrxbvyUapybezdgl heart failure; nonhypertensive (20 sources)Chronic diastolic heart failure; Translations: [Chronic diastolic (congestive) heart failure]Onset: 06-71-0544AyourfeDceoxawq atherosclerosis and other heart disease (3 sources)Coronary arteriosclerosis; Translations: [Atherosclerotic heart disease of [place] coronary artery without angina pectoris]76-40-3745Mpjumad Deficiency and other anemia (20 sources)Pernicious anemia; Translations: [Vitamin B12 deficiency anemia due to intrinsic factor deficiency]40-01-8246WbmmdgunDedsydopjh and other anemia (3 sources)Vitamin B12 deficiency anemia due to intrinsic factor deficiency EpisodicDeficiency and other anemia (2 sources)Anemia; Translations: [Anemia, unspecified]EpisodicDeficiency and other anemia (1 source)Iron deficiency anemia; Translations: [Other iron deficiency anemias] EpisodicDeficiency and other anemia (1 source)Other iron deficiency anemiasEpisodicDisorders of lipid metabolism (3 sources)Hyperlipidemia; Translations: [Pure hypercholesterolemia, unspecified]Onset: 184675-42-7745ZmnyknhAxbkigqrmd disorders (20 sources)Gastroesophageal reflux disease; Translations: [Gastro-esophageal reflux disease without esophagitis]44-21-9771RqsfymlZljnnyxob hypertension (17 sources)Benign essential hypertension; Translations: [Essential hypertension, benign]Onset: 239606-68-2627JagntyzUeflo and electrolyte disorders (1 source)HyperkalemiaEpisodicGenitourinary symptoms and ill-defined conditions (6 sources)Increased frequency of urination; Translations: [Dysuria]05-01-2022 EpisodicHyperplasia of prostate (7 sources)Benign prostatic hypertrophy with outflow obstruction; Translations: [Benign prostatic hyperplasia with lower urinary tract symptoms]Onset: 13-00-8942YanzeftUydckokv disorders (2 sources)Immunodeficiency disorder; Translations: [Immunodeficiency, unspecified]ChronicImmunizations and screening for infectious disease (3 sources)Encounter for immunization; Translations: [Vaccination given]Onset: 10-36-1477HngsqikxBzlfrovqrjmf conditions of male genital organs (7 sources)Chronic prostatitis; Translations: [Chronic prostatitis]Onset: 61-71-0687UfqchqgWsdssvxbwdbr conditions of male genital organs (2 sources)Acute prostatitis; Translations: [Acute prostatitis]EpisodicJoint disorders and dislocations; trauma-related (20 sources)Acetabular labrum tear; Translations: [Other articular cartilage disorders, unspecified hip]Onset: 404265-48-1967UfpvwzfBbtv disorders (20 sources)Major depression, single episode; Translations: [Major depressive disorder, single episode, in fullremission]Onset: 569724-41-6859Noldqna Neoplasms of unspecified nature or uncertain behavior (2 sources)Monoclonal gammopathy (clinical); Translations: [Monoclonal gammopathy]53-57-8271BmoqxtxSdxjxzszucejn gastroenteritis (2 sources)Non-infective enteritis and colitis; Translations: [Noninfective gastroenteritis and colitis, unspecified]EpisodicNutritional deficiencies (2 sources)Deficiency of macronutrients; Translations: [Unspecified protein- calorie malnutrition]Onset: 80-38-6757WlzxwlqRmjumfechehwuz (20 sources)Arthritis; Translations: [Unspecified osteoarthritis, unspecified site]Onset: 552571-10-2871GnimoibQwhkrgzdolss (2 sources)Osteoporosis; Translations: [Age-related osteoporosis without current pathological fracture]Onset: 290142-27-9495CheryxoGagen acquired deformities (20 sources)Flatback syndrome; Translations: [Flatback syndrome, site unspecified]Onset: 245318-86-1347XjsjxbnNcewx aftercare (1 source)Other fpc (current) drug therapy; Translations: [OTH HALF-WAY CURRENT DRUG THERAPY]Onset: 66-73-0402MrwyifqcPuscy and ill-defined cerebrovascular disease (20 sources)Small vessel cerebrovascular disease; Translations: [Cerebrovascular disease, unspecified]Onset: 075999-14-8566QdsileuCcjvp and ill-defined heart disease (4 sources)Heart yxrdphx54-55-4716HdzlnoxExqzk circulatory disease (2 sources)Orthostatic hypotension; Translations: [Orthostatic hypotension] EpisodicOther circulatory disease (1 source)Orthostatic hypotension; Translations: [Orthostatic hypotension]Onset: 37-38-6629NfvlrgphXmyij circulatory disease (3 sources)Postural orthostatic tachycardia syndrome ; Translations: [Postural orthostatic tachycardia syndrome (POTS)]Onset: 94-78-3901PxsnmxdwGmoqm circulatory disease (2 sources)Elevated blood-pressure reading without diagnosis of hypertension; Translations: [Elevated blood-pressure reading, without diagnosis of hypertension]EpisodicOther connective tissue disease (9 sources)Cramp in lower limb; Translations: [Cramp and spasm]EpisodicOther connective tissue disease (1 source)Pain in right lower limb; Translations: [Pain in right leg]Episodic Other connective tissue disease (9 sources)Lateral epicondylitis of left humerus; Translations: [Lateral epicondylitis, left elbow]39-59-9965VkfutlkvLrmio connective tissue disease (4 sources)Lateral epicondylitis, left elbow; Translations: [Lateral epicondylitis]Onset: 612091-73-4885LdekvqdwPwgat diseases of kidney and ureters (1 source)Urinary tract obstruction; Translations: [Other obstructive and reflux uropathy]Onset: 97-87-0784QbdvxptmZoakv endocrine disorders (1 source)Hyperparathyroidism; Translations: [Other hyperparathyroidism] 91-17-5767TojlpcyLoizy endocrine disorders (1 source)Other hyperparathyroidism; Translations: [Other hyperparathyroidism (HCC)]Onset: 27-98-3455YyrjixyWqmfk inflammatory condition of skin (2 sources)Psoriasis; Translations: [Other psoriasis]Onset: 91-23-1371Lvclyye Other lower respiratory disease (3 sources)Dyspnea on exertion; Translations: [Other forms of dyspnea]Episodic Other lower respiratory disease (2 sources)Pleuritic pain; Translations: [Pleurodynia]EpisodicOther male genital disorders (5 sources)Male erectile dysfunction, unspecified; Translations: [Erectile dysfunction]Onset: 00-40-5926WgojxzySwqfh male genital disorders (8 sources)Cyst of epididymis; Translations: [Cyst of epididymis]Onset: 28-32-7373HnuwuwoiNipnh male genital disorders (2 sources)Disorder of male genital organ; Translations: [Other specified disorders of the male genital organs]EpisodicOther nervous system disorders (4 sources)Disorder of the peripheral nervous ocojvz90-22-3114MooasgpAzeoa nervous system disorders (20 sources)Peripheral nerve disease ; Translations: [Polyneuropathy, unspecified]32-98-2149RsfqyotChqoz nervous system disorders (1 source)Disorder of autonomic nervous system; Translations: [Disorder of the autonomic nervous system, unspecified]ChronicOther nervous system disorders (1 source)Neuropathy; Translations: [Idiopathic progressive neuropathy]Chronic Other nervous system disorders (2 sources)Narcolepsy without cataplexy ; Translations: [Narcolepsy without cataplexy]Onset: 53-71-2897KgznccnMwdfv nervous system disorders (2 sources)Hereditary peripheral neuropathy; Translations: [Unspecified hereditary and idiopathic peripheral neuropathy]Onset: 83-94-9275HxfgcphLivhr nervous system disorders (20 sources)Chronic pain; Translations: [Other chronic pain]70-86-7764Cssjjon Other nervous system disorders (3 sources)Polyneuropathy, unspecified; Translations: [Unspecified hereditary and idiopathic peripheral neuropathy]41-96-8780LuhisjoPddsj nervous system disorders (14 sources)Other chronic pain; Translations: [Other chronic pain]06-10-2024 ChronicOther nervous system disorders (2 sources)Skin sensation disturbance; Translations: [Unspecified disturbances of skin sensation]EpisodicOther nervous system disorders (1 source)Tremor; Translations: [Tremor, unspecified]EpisodicOther nervous system disorders (1 source)Paresthesia; Translations: [Paresthesia of skin]EpisodicOther non- traumatic joint disorders (2 sources)Arthralgia of the upper arm; Translations: [Pain in right elbow] EpisodicOther non-traumatic joint disorders (20 sources)Pain in left shoulder; Translations: [Left shoulder pain]09-05-2023 EpisodicOther nutritional; endocrine; and metabolic disorders (20 sources)Body mass index 40+ - severely obese; Translations: [Morbid (severe) obesity due to excess calories]00-94-8966JsjznzzTluwl nutritional; endocrine; and metabolic disorders (6 sources)Obese class II; Translations: [Body mass index (BMI) 35.0-35.9, adult]Onset: 60-24-7830PccqrspKytzb nutritional; endocrine; and metabolic disorders (2 sources)Obesity; Translations: [Obesity, unspecified]ChronicOther nutritional; endocrine; and metabolic disorders (2 sources)Body mass index 30+ - obesity; Translations: [Body mass index 36.0- 36.9, adult]Onset: 44-58-1684KjtqjbaRzauz nutritional; endocrine; and metabolic disorders (1 source)Severe obesity; Translations: [Class 3 severe obesity without serious comorbidity with body mass index (BMI) of 40.0 to 44.9 in adult, unspecified obesity type (HCC)]39-80-9021VqpfaqgDhpbm skin disorders (14 sources)Eruption; Translations: [Rash and other nonspecific skin eruption] 26-50-7716UkqdewahBvyoc skin disorders (5 sources)Epidermoid cyst; Translations: [Epidermal cyst]Onset: 07-16-2023 EpisodicOther skin disorders (2 sources)Rash and other nonspecific skin eruption; Translations: [Rash and other nonspecific skin eruption]55-78-3537IbslnrekPclbw upper respiratory infections (2 sources)Chronic sinusitis; Translations: [Chronic sinusitis, unspecified] ChronicOtitis media and related conditions (2 sources)Non-suppurative otitis media; Translations: [Unspecified nonsuppurative otitis media, left ear]EpisodicPathological fracture (15 sources)Pathological fracture of proximal end of femur; Translations: [Pathological fracture, hip, unspecified, sequela]38-66-1318XwytxslzHlua-; endo- ; and myocarditis; cardiomyopathy (except that caused by tuberculosis or sexually transmitted disease) (20 sources)Dilated cardiomyopathy; Translations: [Cardiomyopathy, unspecified] Onset: 97-69-3085KnzoixrYidetwchj; thrombophlebitis and thromboembolism (2 sources)Deep venous thrombosis of peroneal vein; Translations: [Acute venous embolism and thrombosis of deep vessels of distal lower extremity]Onset: 57-02-3617FacrpqpYoarorurx heart disease (4 sources)Secondary pulmonary hypertension; Translations: [Other secondary pulmonary hypertension]ChronicResidual codes; unclassified (20 sources)Obstructive sleep apnea syndrome; Translations: [Obstructive sleep apnea (adult) (pediatric)]Onset: 720818-53-8404FmubpqtQztuomv on above: Outside Source Comment: Overview: On auto-CPAP - sleep study done on 07/10/16 Overview: On auto-CPAP -sleep study done on 07/10/16Residual codes; unclassified (2 sources)Blood pressure alteration; Translations: [Other general symptoms and signs]EpisodicResidual codes; unclassified (2 sources)Procedure not done; Translations: [Procedure and treatment not carried out because of patient's decision for unspecified reasons]Episodic Residual codes; unclassified (6 sources)Localized edema; Translations: [Localized edema]34-13-7418Ulwdogyi Residual codes; unclassified (14 sources)H/O Spinal surgery; Translations: [Other specified postprocedural states]52-92-1531OpiuoppbUifzvyty codes; unclassified (1 source)Pain; Translations: [Pain, unspecified]14-51-7974OohtmpxpXvljzyan codes; unclassified (1 source)Pain, unspecified; Translations: [Pain]Onset: 48-53-1076Jmktffya Residual codes; unclassified (11 sources)Edema of lower extremity; Translations: [Localized edema]05-13-2024 EpisodicRheumatoid arthritis and related disease (20 sources)Ankylosing spondylitis; Translations: [Ankylosing spondylitis of unspecified sites in spine]Onset: 944053-54-3613SwkrkqbLaoadyfcn and history of mental health and substance abuse codes (20 sources)Ex-smoker; Translations: [Personal history of nicotine dependence] Onset: 218303-15-2075AvigvpsoHrae and subcutaneous tissue infections (20 sources)Cellulitis of right lower limb; Translations: [Cellulitis and abscess of lower leg]Onset: 46-22-0206CmmcailzAqtuvamxepo; intervertebral disc disorders; other back problems (20 sources)Arthritis of spine; Translations: [Unspecified inflammatory spondylopathy, site unspecified]Onset: 87-43-0798AscqnhgUmbogmv (1 source)Near syncope; Translations: [Syncope and collapse]83-25-3126Wehhecdd Tuberculosis (1 source)Tuberculosis of spineEpisodicUnclassified (2 sources)COUGH, UNSPECIFIED; Translations: [COUGH, UNSPECIFIED]Onset: 04-20-5569Occarjgvvrwl (1 source)CONTACT W/AND (SUSP) EXPOS COVID-19; Translations: [CONTACT W/AND (SUSP) EXPOS COVID-19]Onset: 14-92-4833Korbufuaehkq (2 sources)History of disease caused by Severe acute respiratory syndrome coronavirus 2 (situation); Translations: [Personal history of COVID-19] Unclassified (1 source)NewOnset: 26-17-0163Ufjzccn tract infections (4 sources)Urethral syndrome; Translations: [Urethral syndrome, unspecified] Onset: 64-04-3937BqqavdvfSydeq infection (6 sources)COVID-19; Translations: [Disease caused by 2019-nCoV]Onset: 11-29-2021 Past or Other Problems Problem ClassificationProblemDateDocumented DateEpisodic/ChronicAbdominal pain (4 sources)Left lower quadrant pain; Translations: [Left lower quadrant pain] Onset: 01-59-0443BodifigqEeejr and unspecified renal failure (12 sources)Acute renal failure syndrome; Translations: [Acute kidney failure, unspecified]Onset: 12-09-2016 Resolved: 979598-79-6878DxwqndjgVowgudx tract disease (1 source)Calculus of gallbladder without cholecystitis without obstruction; Translations: [CALCU GB W/O CHOLECYST W/O OBST]Onset: 03-35-7293YcywpnurMmdofgt kidney disease (1 source)Chronic kidney diseaseComplications of surgical procedures or medical care (20 sources)Postoperative wound infection; Translations: [Infection following a procedure, other surgical site,initial encounter]Onset: EpisodicConditions associated with dizziness or vertigo (4 sources)Lightheadedness; Translations: [Dizziness and giddiness]Onset: 63-80-0421JbopfsgkUmjzrnuyyr and other anemia (4 sources)Anemia, unspecified; Translations: [ANEMIA UNSPECIFIED]Onset: 73-31-6493HjjchmfuIuladxbg of neck of femur (hip) (20 sources)Fracture of unspecified part of neck of left femur, sequela; Translations: [Closed fracture of hip]Onset: 57-20-6764EmjuivubRnjfrxxuxr infection (20 sources)Clostridium difficile colitis; Translations: [Enterocolitis due to Clostridium difficile, not specified as recurrent]Onset: EpisodicComment on above:Problem added secondary to documenting Active C-Diff. 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]Onset: 03-62-1386ZcevgaqbBfugx aftercare (12 sources)Patient encounter status; Translations: [Encounter for therapeutic drug level monitoring]Onset: 10-27-2016 Resolved: 237340-20-6662FynxkysuKfmxm connective tissue disease (4 sources)Pain in left leg; Translations: [PAIN IN LEFT LEG]Onset: 09-14-2021 EpisodicOther gastrointestinal disorders (2 sources)Diarrhea; Translations: [Diarrhea]Onset: 20-74-0062HfnqbrhfBasph hematologic conditions (20 sources)Raised cardiac enzyme or marker; Translations: [Other specified abnormalities of plasma proteins]Onset: 448517-58-9016OpedrrgkMfuup hematologic conditions (1 source)Cyst of spleen; Translations: [CYST OF SPLEEN]Onset: 04-28-2022 EpisodicOther infections; including parasitic (20 sources)Disorder due to infection; Translations: [Unspecified infectious disease]Onset: 688847-64-3062MspofgrcTtmrd injuries and conditions due to external causes (20 sources)Local infection of wound; Translations: [Other injury of unspecified body region, initial encounter]Onset: 392899-87-1357ZylqzrtgIarwp injuries and conditions due to external causes (12 sources)Open wound; Translations: [Other injury of unspecified body region, initial encounter]Onset: 09-23-2016 Resolved: 637211-05-8876OnsrybtzOdgfm lower respiratory disease (5 sources)Dyspnea; Translations: [Shortness of breath]Onset: 83-47-3975Cudxfclz Other lower respiratory disease (5 sources)Dyspnea, unspecified; Translations: [DYSPNEA UNSPECIFIED]Onset: 60-42-5824TlinrddsCdruo lower respiratory disease (4 sources)Shortness of breath; Translations: [SHORTNESS OF BREATH]Onset: 96-57-6363HshrutkjLcofq non-traumatic joint disorders (20 sources)Pain in right hip joint; Translations: [Pain in right hip]Onset: 320585-27-6349ZjbkzeovCsyhu non-traumatic joint disorders (2 sources)Arthralgia of the pelvic region and thigh; Translations: [Pain in joint, pelvic region and thigh]Onset: 95-22-9849EkniiuflUavze non-traumatic joint disorders (5 sources)Hip pain; Translations: [Pain in right hip]Onset: 07-19-2015 81-80-2418CvtrspwiMmhky screening for suspected conditions (not mental disorders or infectious disease) (6 sources)Abnormal results of pulmonary function studies; Translations: [Electrocardiogram abnormal]Onset: 099205-20-5768ZcxkepwqNetvb upper respiratory infections (4 sources)Acute maxillary sinusitis; Translations: [Acute recurrent maxillary sinusitis]Onset: 23-83-7283OrxkoiprWryngnbft; thrombophlebitis and thromboembolism (20 sources)Bilateral acute deep vein thrombosis of femoral veins; Translations: [Acute embolism and thrombosisof femoral vein, bilateral]Onset: 10-15-2016 00-55-8495FhzmacgdVypsryjgc (except that caused by tuberculosis or sexually transmitted disease) (20 sources)Infective pneumonia; Translations: [Pneumonia, unspecified organism] Onset: 01-04-2017 Resolved: 227305-11-3338NkxuvrjzBksxaofo codes; unclassified (20 sources)History of lumbar laminectomy; Translations: [Other specified postprocedural states]Onset: 597010-85-7482AgeyknlsVhicgmvg codes; unclassified (2 sources)Insomnia; Translations: [Insomnia, unspecified]Onset: 04-13-2017 EpisodicResidual codes; unclassified (2 sources)Requires influenza virus vaccination; Translations: [Need for prophylactic vaccination and inoculation, Influenza]Onset: 30-80-1925Mskedqha Spondylosis; intervertebral disc disorders; other back problems (20 sources)Backache; Translations: [Dorsalgia, unspecified]Onset: 01-11-2015 72-13-0266JvxjhacvRreccjstixas (1 source)COUGH, UNSPECIFIED; Translations: [COUGH, UNSPECIFIED]Onset: 09-20-2021 Results Test NameValueInterpretationReference RcqwiOyzanjrc64vw 23-32-991241Csmdl to patient to advise him of his monitor results per Dr. Cruz request. Patient states he hasn't been feeling the palpitation as often and will stay on the same medication and dose he is currently at. Patient will call if anything changes. Patient verbalized understanding and agreed with plan of care.[id number] Holter monitor report from 01/26/2025: Per Dr. Porras: He has sinus tachycardia only 2.8% of the time which is not much. In addition when he reported events he was in sinus rhythm without tachycardia. So if he does not feel the fast heart rate anymore I will continue current medications. If he still feels the palpitations let me know to adjust his medications. LM for patient to return my call.NormalUnMansfield HospitalOffice Visiton 26-98-8078Peyjhu-up [id number] Elena Felix 1960 M Date Provider Department Center 01/09/2025 [id number] PORRAS CARD [facility] Family History Problem Relation Age of Onset No Known Problems Mother No Known Problems Father Family Status - Relation Status Age at Mother Father Level of Service:86613 PA OFFICE/OUTPATIENT ESTABLISHED MOD MDM 30 MIN Reason for Visit and Comments: Cardiomyopathy [104] - nonischemic DVT [Other] Congestive Heart Failure [127] Hypertension [609917] POTS [Other] Hyperlipidemia [182] orthostatic hypotension [Other] Shortness of Breath [129549] Fatigue [46]NormalUnMansfield HospitalCNPNon [phone] Telephone (HEMASA) ELENA FELIX ([id number]) 1960 M Date Time Provider Department 12/10/24 PANFILO CARRANZA During your visit today, we recorded the following information about you: Panfilo Carranza RN 12/10/2024 8:45 AM Addendum Pt is a ROBBY of [facility]. No lab appt scheduled or labs ordered Mehul: labs pended, as previously obtained, please review and sign (add, if needed) RTC 12/15 PSS: Pt will need lab appt prior to Mehul, if orders added, please MAHSA Braun Amy S 12/10/2024 9:19 AM Signed Scheduled patient for lab on 12/15/2024 at 10:15 am. ABEL Rhoades Sheba Sania 12/10/2024 10:28 AM Signed Lvm for patient [...] Unknown Date Reviewed: 12/10/2024 Reviewed by: Tiffany Farrell PA-C - Fully Assessed Primary Visit Diagnosis:Monoclonal gammopathy [D47.2] Order(s):COMPLETE BLOOD COUNT AND DIFFERENTIAL [SQCBCDIF] Order #: [id number] FUTURE COMPREHENSIVE METABOLIC PANEL [SQCMP] Order #: [id number] FUTURE MONOCLONAL PROTEIN, SERUM (BLOOD) [SQSERMPA] Order #: [id number] FUTURE PROTEIN ELECTROPHORESIS SERUM W/INTERP [SQSEPG] Order #: [id number] FUTURE LACTATE DEHYDROGENASE [SQLD6] Order #: [id number] FUTURE B2 MICROGLOBULIN [SQB2M] Order #: [id number] FUTURE URIC ACID [SQURIC] Order #: [id number] FUTURE PHOSPHORUS INORGANIC [SQPHOS] Order #: [id number] FUTURE CALCIUM, TOTAL [SQCA] Order #: [id number] FUTURE PROTEIN, TOTAL [SQTP] Order #: [id number] FUTURE Prescriptions as of 12/10/2024 - cholecalciferol, Vitamin D3, (VITAMIN D3) 1,250 mcg (50,000 unit) cap capsule TAKE 1 CAPSULE BY MOUTH ONE TIME A WEEK. - FORTEO 20 mcg/dose (600mcg/2.4mL) Take 20 mcg subcutaneously daily - Teriparatide 20 mcg/dose (600mcg/2.4mL) Take 20 mcg subcutaneously daily - Insulin [place], Disposable, (BD ULTRAFINE III MINI PEN) 31 [...] tachycardia [R00.0] 02/05/2017 [employer] (more content not included)...NormalTrumbull Memorial HospitalX-ray report Ordered By: Philip Willis on 45-42-4293Fdnjw [facility] [address] [place] [address] XRay Report Signed Patient: Elena Felix MR#: [id number] : 1960 Acct:[id number] Age/Sex: 64 / M ADM Date: 5 Loc: XD Room: Type: [facility] Attending Dr: Frederic Zamarripa MD Copies [...] Willis M.D. 12/10/2024 4:41 PM Dictation Location: RADIO--23 Transcribed By: LITO 12/10/241640 Dictated By: Philip Willis MD 12/10/24 1640 Signed By: 12/10/241640 [facility] Work Phone: XR elbow LT min 3V*on 43-05-6125PI elbow LT min 3V* [place] [facility] [address] [place] [address] XRay Report Signed Patient: Elena Felix MR#: [id number] 29 : 1960 Acct:[id number] Age/Sex: 64 / M ADM Date: 12/10/24 Loc: XD Room: Type: [facility] Attending Dr: Frederic Zamarripa MD Copies [...] Willis M.D. 12/10/2024 4:41 PM Dictation Location: RADIO--23 Transcribed By: LITO 12/10/241640 Dictated By: Philip Willis MD 12/10/24 1640 Signed By: 12/10/241640NoAt[facility] Health [facility] [facility] Physician GroupBasophils Auto (Bld) [#/Vol] Ordered By: Safia Enrique on 64-46-1202Fqbdflhve (Bld) [#/Vol]0.0 10 3/uL 0.0-0.1FMercy Memorial HospitalBasophils/100 WBC Auto (Bld)Ordered By: Safia Enrique on 94-84-2176Yxzahtxts/100 WBC (Bld)0.7 %0.2-2.0[facility] HospitalEosinophils/100 WBC Auto (Bld)Ordered By: Safia Enrique on 34-87-3774Depyyayugno/100 WBC (Bld)5.0 %0.9-7.0[facility] HospitalErythrocyte distribution width Auto (RBC) [Ratio]Ordered By: Safia Enrique on 40-04-7874Ewfspdiwmse distribution width (RBC) [Ratio]15.9 %High 11.0-15.0[facility]ville HospitalEstimated glomerular filtration rate (GFR) non- AmericanOrdered By: Safia Enrique on 72-20-6261YKE/1.73 sq M.predicted among non-blacks MDRD (S/P/Bld) [Vol rate/Area]53 mL/min/{1.73_m2} Low>=60 mL/min/1.73m 2FMercy Memorial HospitalGlobulin Calc (S) [Mass/Vol]Ordered By: Safia Enrique on 48-94-7967Shoxlpcq (S) [Mass/Vol]4.1 g/dLBarnesville HospitalHematocrit Auto (Bld) [Volume fraction] Ordered By: Safia Enrique on 10-23-4943Oemczrntyj (Bld) [Volume fraction]40.2 % Low42.0-54.0Barn[facility]ville HospitalHemoglobin [Mass/volume] in Blood Ordered By: Safia Enrique on 40-90-6159Xqepocodrj (Bld) [Mass/Vol]12.7 g/dLLow 14.0-18.0[facility] HospitalLaboratory - Chemistry and Chemistry - challengeOrdered By: Safia Enrique on 68-62-5564Uxpusgk [Mass/Vol]2.7 g/dLLow 3.4-5.0[facility] HospitalALP [Catalytic activity/Vol]89 U/L46-116 [facility] HospitalALT [Catalytic activity/Vol]20 U/L16-63 [facility] HospitalAST [Catalytic activity/Vol]14 U/RIbd02-76 [facility] HospitalBilirubin [Mass/Vol]0.6 mg/dL0.2-1.0[facility] HospitalCalcium [Mass/Vol]9.4 mg/dL8.5-10.1FMercy Memorial HospitalChloride [Moles/Vol]104 mmol/R23-448TakxmeojbBarnesville HospitalCO2 [Moles/Vol]31.6 mmol/L21.0-32.0[facility] Creatinine [Mass/Vol]1.35 mg/dLHigh0.70-1.30[facility] GFR/1.73 sq M.predicted MDRD (S/P/Bld) [Vol rate/Area]mL/min/{1.73_m2}>=60 mL/min/1.73m 2FMercy Memorial HospitalGlucose [Mass/Vol]107 mg/dLHigh 74-106Barn[facility] HospitalPotassium [Moles/Vol]4.3 mmol/L3.5-5.1 [facility] HospitalProtein [Mass/Vol]6.8 g/dL6.4-8.2FWayne HealthCare Main Campusodium [Moles/Vol]140 mmol/L629-828JsmqbztwqBarnesville HospitalUrea nitrogen [Mass/Vol]18.0 mg/dL7.0-18.0[facility] HospitalUrea nitrogen/Creatinine [Mass ratio]13.3 mg/mgBarnesville HospitalLaboratory - Hematology and Cell countsOrdered By: Safia Enrique on 45-75-8906SLW (Bld) [Velocity]75 mm/hHigh<=20Barn[facility]ville HospitalImmature granulocytes/100 WBC (Bld)0.3 %0.0-0.5FMercy Memorial HospitalLeukocytes [#/volume] corrected for nucleated erythrocytes in Blood by Automated counOrdered By: Safia Enrique on 17-35-9384RBK corrected for nucl RBC Auto (Bld) [#/Vol]5.8 10 3/uL4.0-11.0[facility] Lymphocytes Auto (Bld) [#/Vol]Ordered By: Safia Enrique on 10-31-2024 Lymphocytes (Bld) [#/Vol]1.1 10 3/uLLow1.2-3.8[facility] Lymphocytes/100 WBC Auto (Bld)Ordered By: Safia Enrique on 10-31-2024 Lymphocytes/100 WBC (Bld)19.1 %Low20.5-60.0[facility] Hospital ToledoH Auto (RBC) [Entitic mass]Ordered By: Safia Enrique on 33-39-2206DAD (RBC) [Entitic mass]30.8 pg25.9-34.0[facility] HospitalMCHC Auto (RBC) [Mass/Vol]Ordered By: Safia Enrique on 12-19-7083JYBO (RBC) [Mass/Vol]31.6 g/dL 29.9-35.2FMercy Memorial HospitalMCV Auto (RBC) [Entitic vol]Ordered By: Safia Enrique on 79-53-0894AEW (RBC) [Entitic vol]97.6 lEGjza12.0-94.0 [facility] HospitalMonocytes Auto (Bld) [#/Vol]Ordered By: Safia Enrique on 26-49-3010Aeptkwmjd (Bld) [#/Vol]0.6 10 3/uL0.3-0.8Barn[facility] HospitalMonocytes/100 WBC Auto (Bld)Ordered By: Safia Enrique on 07-17-6831Ikmijekbq/100 WBC (Bld)10.1 %1.7-12.0[facility] HospitalNeutrophils Auto (Bld) [#/Vol]Ordered By: Safia Enrique on 10-31-2024 Neutrophils (Bld) [#/Vol]3.7 10 3/uL1.4-6.5FMercy Memorial Hospital Neutrophils/100 WBC Auto (Bld)Ordered By: Safia Enrique on 10-31-2024 Neutrophils/100 WBC (Bld)64.8 %43.0-75.0[facility] HospitalNo Panel InformationOrdered By: Safia Enrique on 71-38-5295Tcllypjkvty # (Auto)0.3 10 3/uL0.0-0.7FMercy Memorial HospitalImmature Granulocyte # (Auto) 0.02 10 3/uL0.00-0.03Barn[facility]ville HospitalPlatelet mean volume Auto (Bld) [Entitic vol]Ordered By: Safia Enrique on 66-90-8148Wmconbxw mean volume (Bld) [Entitic vol]9.6 fL9.5-13.5FMercy Memorial HospitalPlatelets Auto (Bld) [#/Vol]Ordered By: Safia Enrique on 35-71-5290Vemifyzyw (Bld) [#/Vol]291 10 3/nS583-985JljkcdtfxBarnesville HospitalRBC Auto (Bld) [#/Vol]Ordered By: Safia Enrique on 76-07-3410QCI (Bld) [#/Vol]4.12 10 6/uLLow4.70-6.10[facility] Washington Townshiperum or plasma albumin/globulin mass ratioOrdered By: Safia Enrique on 23-67-0604Jdfuvub/Globulin [Mass ratio]0.7 {ratio}[facility] Washington Townshiperum or plasma anion gap determinationOrdered By: Safia Enrique on 06-88-8710Glavm gap [Moles/Vol]8.7 mmol/LFMercy Memorial HospitalMR cervical spine wo conon 69-32-6033DD cervical spine wo [facility] [place] [address] MRI Report Signed Patient: Elena Felix MR#: [id number] 29 : 1960 Acct:[id number] Age/Sex: 63 / M ADM Date: 08/06/24 Loc: MR Room: Type: [facility] Attending Dr: Estella Tadeo [employer]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 Multilevel facet arthropathy. There are hemangiomas involving [...] the left. There is moderate right-sided and wffjafif-mu-mdkcxb left-sided neural foraminal narrowing. Jnmf-pz-dnneabyc central canal stenosis. C7-T1: Moderate facet arthropathy. Mild neural foraminal narrowing. No significant disc disease or central canal stenosis identified. MR/MR cervical spine wo con IMPRESSION: Overall moderate multilevel degenerative changes with left-sided neural foraminal narrowing greatest left C3-C5 and C6-C7. Impression dictated by: Philip Willis M.D.08/06/2024 4:06 PM Dictation Location: [place] [address] Transcribed By: [facility] 08/06/24 1606 Dictated By: Philip Willis MD 08/06/24 1548 Signed By: 08/06/[address] [place] [address] Physician [facility] Hospitaletic resonance imaging reportOrdered By: Philip Willis on 46-07-0276Gyqfv reportCENTERVILLE Main [place] [address] [place] [address] MRI Report Signed Patient: Elena Felix MR#: [id number] : 1960 Acct:[id number] Age/Sex: 63 / M ADM Date: 5 Loc: MR Room: Type: [facility] Attending Dr: Estella Tadeo NP Copies to: Estella Tadeo NP~ Ordering Provider: Estella Tadeo NP Date of [...] T1 T3 T4. Minimal loss of height atC3 notedappears chronic without abnormal edema. The cervical cord demonstrates normal signal and morphology. No prevertebral soft tissue swelling. C2-C3: Facet arthropathy, mild to moderate. Minor endplate ossific spurring. Otherwise the canal neural foramina patent. C3-C4: Broad-based disc osteophyte complex with bilateral uncovertebral and facet arthropathy. Thisresults in moderate severe right and severe left [...] the left. There is moderate right-sided and kvxcxxen-ug-icvoub left-sided neural foraminal narrowing. Dbkq-vx-lqxlyein central canal stenosis. C7-T1: Moderate facet arthropathy. Mild neural foraminal narrowing. No significant disc disease or central canal stenosis identified. MR/MR cervical spine wo con IMPRESSION: Overall moderate multilevel degenerative changes with left-sided neural foraminal narrowing greatest left C3-C5 and C6-C7. Impression dictated by: Philip Willis M.D.08/06/2024 4:06 PM Dictation Location: [place] [address] Transcribed By: [facility] 08/06/24 1606 Dictated By: Philip Willis MD 08/06/24 1548 Signed By: 08/06/24 1606 [facility] Work Phone: Ambulatory Visit Summaryon 96-54-0635Rfrgcytftu Visit SummaryAmbulatory Visit Summary ELENA FELIX :1960 Visit Date:07/21/2024 [...] Injection of sacroiliac joint using fluoroscopic guidance (06/26/2014),Injection of sacroiliac joint using fluoroscopic guidance (04/06/2014), [...] EUGENIA MUÑOZ PA-C Where: [facility] [address] [place] [address] [place] [address]- You Need to Schedule the Following Appointments Follow Up with EUGENIA MUÑOZ PA-C, VERENICE When: In 1 year Where: [address] [place] [address] Medications What How Much When [...] you for choosing us for your care. [facility] CenterOffice Visiton 02-00-8359Akhyok- up [id number] Elena Felix 1960 M Date Provider Department Center 07/21/2024 19719-VNBVUCBALBIR PORRAS CARD [facility] Family History Problem Relation Age of Onset No Known Problems Mother No Known Problems Father Family Status - Relation Status Age at Mother Father Level of Service:79772 PA OFFICE/OUTPATIENT ESTABLISHED MOD MDM 30 MIN Reason for Visit and Comments: Hypertension [738572] Hyperlipidemia [182] Cardiomyopathy [104][facility] NorthU[facility] Office/Clinic Noteon 34-65-2829Bxbqzew Office/Clinic NoteUrology Office/Clinic Note Chief Complaint 6 month fwith [...] Urnls Dip Stick Auto w/o Microscopy POC 21931 2. Erectile dysfunction (N52.9: Male erectile dysfunction, [...] 1 yr. Follow-up With When Contact Information WANDA COON, EUGENIA Ko, URL In 1 year [address] [place] [address] Additional Instructions: Patient Education Benign Prostatic Hyperplasia [...] Injection of sacroiliac joint using fluoroscopic guidance (06/26/2014),Injection of sacroiliac joint using fluoroscopic guidance (04/06/2014), [...] virus vaccine, inactivated (more content not included)... [facility] CenterComment on above:Result Comment: Electronically Signed By: EUGENIA MUÑOZ PA-C\Date and Time Signed: 07/21/2509:05 EDTNo Panel Informationon 17-70-6303Lvxvbhex Specific Antigen Total1.08 ng/mL<=4.00 [facility] HospitalEstimated glomerular filtration rate (GFR) non- Americanon 63-57-6878YRW/1.73 sq M.predicted among non-blacks MDRD (S/P/Bld) [Vol rate/Area]Estimated glomerular filtration rate (GFR) non- AmericanLow>=60 mL/min/1.73m 2FMercy Memorial HospitalLaboratory - Chemistry and Chemistry - challengeon 32-15-5597Jdkoawf [Mass/Vol]9.1 mg/dL 8.5-10.1FMercy Memorial HospitalChloride [Moles/Vol]106 mmol/L98-107 [facility] HospitalCO2 [Moles/Vol]32.8 mmol/LHigh21.0-32.0 [facility] HospitalCreatinine [Mass/Vol]1.48 mg/dLHigh0.70-1.30 [facility] HospitalGFR/1.73 sq M.predicted MDRD (S/P/Bld) [Vol rate/Area]58 mL/min/{1.73_m2}Low>=60 mL/min/1.73m [address] [place], [place] [address]Glucose [Mass/Vol]90 mg/mO00-314JtgxkfoaaBarnesville HospitalPotassium [Moles/Vol]4.9 mmol/L3.5-5.1FWayne HealthCare Main Campusodium [Moles/Vol] 144 mmol/Z117-262UwqcnqofqBarnesville HospitalUrea nitrogen [Mass/Vol]18.0 mg/dL7.0-18.0[facility] HospitalUrea nitrogen/Creatinine [Mass ratio]12.2 mg/mgKettering Health Washington Townshiperum or plasma anion gap determinationon 48-88-5510Hqbnz gap [Moles/Vol]Serum or plasma anion gap determinationBarnesville HospitalOffice Visiton 25-07-9322Xmvcnl-up [id number] Elena Felix 1960 M Date Provider Department Center 06/10/2024 Roshni8-NIKKIE TREJO CARD [facility] Family History Problem Relation Age of Onset No Known Problems Mother No Known Problems Father Family Status - Relation Status Age at Mother Father Level of Service:12409 PA OFFICE/OUTPATIENT ESTABLISHED LOW [facility] 20 [facility] CenterX-ray reportOrdered By: Philip Willis on 80-71-9587Zegag reportCENTERVILLE Main [address] [address] XRay Report Signed Patient: Elena Felix MR#: [id number] : 1960 Acct:[id number] Age/Sex: 63 / M ADM Date: 5 Loc: XD Room: Type: [facility] Attending Dr: Frederic Zamarripa MD Copies to: Frederic Zamarripa MD~ Ordering Provider: Frederic Zamarripa MD Date of Service: 06/10/24 XR/XR cervical spine w flex/ext: M54.2 - Cervicalgia CERVICAL SPINE AP, lateral, both obliques and flexion extension views.: CLINICAL HISTORY: Neck pain COMPARISON: None FINDINGS: Mild reversal. Only C1-C6 seen laterally.. Moderate multilevel uncovertebral and facet arthropathy causing neural foraminal encroachment. Aqee-gu-vqcmqcay multilevel disc space narrowing and osteophytosis moderate severity C3-C4. There is mild retrolisthesis C4-C5 3 mm which is unchanged on the flexion extension images. XR/XR cervical spine w flex/ext IMPRESSION: Multilevel degenerative change. No motion on flexion extension images. Impression dictated by: Philip Willis M.D.06/10/2024 3:55 PM Dictation Location: [place] [address] Transcribed By: [facility] 06/10/24 155 Dictated By: Philip Willis MD 06/10/24 155 Signed By: 06/10/24 [facility] Work Phone: XR cervical spine w flex/exton 97-41-4009JL cervical spine w flex/extCENTERVILLE Main [address] [address] XRay Report Signed Patient: Elena Felix MR#: [id number] 29 : 1960 Acct:[id number] Age/Sex: 63 / M ADM Date: 06/10/24 Loc: XD Room: Type: [facility] Attending Dr: Frederic Zamarripa MD Copies to: Frederic Zamarripa MD Ordering Provider: Frederic Zamarripa MD Date of Service: 06/10/24 XR/XR cervical spine w flex/ext: M54.2 - Cervicalgia CERVICAL SPINE AP, lateral, both obliques and flexion extension views.: CLINICAL HISTORY: Neck pain COMPARISON: None FINDINGS: Mild reversal. Only C1-C6 seen laterally.. Moderate multilevel uncovertebral and facet arthropathy causing neural foraminal encroachment. Qjlm-nt-miovpjuq multilevel disc space narrowing and osteophytosis moderate severity C3-C4. There is mild retrolisthesis C4-C5 3 mm which is unchanged on the flexion extension images. XR/XR cervical spine w flex/ext IMPRESSION: Multilevel degenerative change. No motion on flexion extension images. Impression dictated by: Philip Willis M.D.06/10/2024 3:55 PM Dictation Location: [place] [address] Transcribed By: [facility] 06/10/241554 Dictated By: Philip Willis MD 06/10/241551 Signed By: 06/10/24 1555[facility] Physician GroupBasophils Auto (Bld) [#/Vol]on 09-01-5105Xlfqhcves (Bld) [#/Vol]Automated basophil count0.0-0.1FMercy Memorial HospitalBasophils/100 WBC Auto (Bld)on 02-67-7377Mpxhinqoj/100 WBC (Bld)Automated basophil %0.2-2.0[facility] Eosinophils/100 WBC Auto (Bld)on 81-84-2072Eufdwkdtgzy/100 WBC (Bld)Automated eosinophil %0.9-7.0[facility] HospitalErythrocyte distribution width Auto (RBC) [Ratio]on 49-72-0658Adtonnemznt distribution width (RBC) [Ratio]Erythrocyte distribution width [Ratio] by Automated count11.0-15.0 [facility] HospitalEstimated glomerular filtration rate (GFR) non- Americanon 43-22-1876YKA/1.73 sq M.predicted among non-blacks MDRD (S/P/Bld) [Vol rate/Area]Estimated glomerular filtration rate (GFR) non- AmericanLow>=60 mL/min/1.73m 2FMercy Memorial HospitalGlobulin Calc (S) [Mass/Vol]on 55-20-5898Ydxomrsv (S) [Mass/Vol]Serum globulin measurement by calculation (mass/volume)[facility] HospitalHematocrit Auto (Bld) [Volume fraction]on 83-55-1342Rodhpcwyxh (Bld) [Volume fraction]Hematocrit [Volume Fraction] of Blood by Automated xodloBra69.0-54.0[facility] HospitalHemoglobin [Mass/volume] in Bloodon 52-17-3368Wnriyehqdd (Bld) [Mass/Vol]Hemoglobin [Mass/volume] in FdicuAov94.0-18.0[facility] HospitalLaboratory - Chemistry and Chemistry - challengeon 05-28-2024 Bilirubin Ql (U)SMALLAbnormalNEGATIVEBarnesville HospitalGlucose (U) [Mass/Vol]NegativeNEGATIVEBarnesville HospitalKetones Ql (U)40 mg/dLAbnormalNEGATIVEBarnesville HospitalpH (U)5.5 [pH]5.0-9.0 [facility] Washington Townshippecific gravity (U) [Rel density]1.025 1.005-1.025Barnesville HospitalUrobilinogen Qn (U)0.2 {Denise'U}/dL0.2-1.0[facility] HospitalAlbumin [Mass/Vol]2.9 g/dL Low3.4-5.0[facility] HospitalALP [Catalytic activity/Vol]80 U/L 46-116Barn[facility] HospitalALT [Catalytic activity/Vol]33 U/L16-63 [facility] HospitalAST [Catalytic activity/Vol]39 U/OZosk10-01 [facility] HospitalBilirubin [Mass/Vol]0.7 mg/dL0.2-1.0[facility] HospitalCalcium [Mass/Vol]8.6 mg/dL8.5-10.1FMercy Memorial HospitalChloride [Moles/Vol]106 mmol/Q75-887ZcmzcikmmBarnesville HospitalCO2 [Moles/Vol]21.8 mmol/L21.0-32.0[facility] Creatinine [Mass/Vol]1.32 mg/dLHigh0.70-1.30[facility] GFR/1.73 sq M.predicted MDRD (S/P/Bld) [Vol rate/Area]mL/min/{1.73_m2}>=60 mL/min/1.73m 2FMercy Memorial HospitalGlucose [Mass/Vol]122 mg/dLHigh 74-106Barn[facility]ville HospitalLactate [Moles/Vol]1.6 mmol/L0.4-2.0 [facility] HospitalLipase [Catalytic activity/Vol]24.0 U/L 16.0-77.0[facility] HospitalPotassium [Moles/Vol]4.0 mmol/L3.5-5.1 [facility] HospitalProtein [Mass/Vol]7.0 g/dL6.4-8.2FWayne HealthCare Main Campusodium [Moles/Vol]141 mmol/B102-461NetikuqhsBarnesville HospitalUrea nitrogen [Mass/Vol]14.0 mg/dL7.0-18.0[facility] HospitalUrea nitrogen/Creatinine [Mass ratio]10.6 mg/mgBarnesville HospitalLaboratory - Hematology and Cell countson 00-24-0055Jaisqlcx granulocytes/100 WBC (Bld)0.2 %0.0-0.5FMercy Memorial Hospital Laboratory - Specimen informationon 59-46-3234Klsgsiiheq (U)CLEARCLEARFMercy Memorial HospitalColor (U)YELLOWYELLOWBarnesville Hospital Laboratory - Urinalysison 97-46-7737Ojdbyqu casts LM Ql (Urine sed)FEWBarnesville HospitalLeukocyte esterase Test strip Ql (U)NegativeNEGATIVE [facility] HospitalMucus Ql (Urine sed)MODERATEAbnormalNONE SEEN [facility] HospitalNitrite Ql (U)NegativeNEGATIVEBarnesville HospitalProtein Ql (U)30 mg/dLAbnormalNEG/TRACEBarnesville HospitalLeukocytes [#/volume] corrected for nucleated erythrocytes in Blood by Automated counon 84-89-4514OJV corrected for nucl RBC Auto (Bld) [#/Vol]Leukocytes [#/volume] corrected for nucleated erythrocytes in Blood by Automated coun4.0-11.0[facility] HospitalLymphocytes Auto (Bld) [#/Vol]on 60-28-0519Ozfavrqliem (Bld) [#/Vol]Lymphocytes [#/volume] in Blood by Automated countLow1.2-3.8[facility] HospitalLymphocytes/100 WBC Auto (Bld)on 30-15-5789Whapyrrbvus/100 WBC (Bld)Lymphocytes/100 leukocytes in Blood by Automated qpqbnQkn83.5-60.0[facility] Hospital ToledoH Auto (RBC) [Entitic mass]on 92-02-8159DAJ (RBC) [Entitic mass]MCH [Entitic mass] by Automated count25.9-34.0[facility] HospitalMCHC Auto (RBC) [Mass/Vol]on 14-84-6713FHNO (RBC) [Mass/Vol]MCHC [Mass/volume] by Automated count29.9-35.2FMercy Memorial HospitalMCV Auto (RBC) [Entitic vol]on 27-06-0183PEY (RBC) [Entitic vol]MCV [Entitic volume] by Automated countHigh 80.0-94.0[facility] HospitalMonocytes Auto (Bld) [#/Vol]on 55-55-5156Wbwluhcvt (Bld) [#/Vol]Automated blood monocyte count0.3-0.8[facility] HospitalMonocytes/100 WBC Auto (Bld)on 23-79-1658Ixfjypuhn/100 WBC (Bld)Automated monocyte %1.7-12.0[facility] Neutrophils Auto (Bld) [#/Vol]on 46-84-1503Jkpidturhyq (Bld) [#/Vol]Neutrophils [#/volume] in Blood by Automated count1.4-6.5FMercy Memorial Hospital Neutrophils/100 WBC Auto (Bld)on 21-91-2169Bfslpzsvqyt/100 WBC (Bld)Automated neutrophil %43.0-75.0[facility] HospitalNo Panel Informationon 49-72-5472Ingos BacteriaTRACE #/HPFAbnormalNONE SEENBarnesville HospitalUrine Culture ReflexedNOBarnesville HospitalUrine Occult BloodNegativeNEGATIVEBarnesville HospitalUrine Other CastsSEEN #/LPFAbnormalNONE SEENBarnesville HospitalUrine Other CrystalsNone Seen #/HPFNone SeenBarnesville HospitalUrine RBCNONE SEEN #/HPF0-2 [facility] HospitalUrine Squamous Epithelial CellsRARE #/LPF NONE/RAREBarnesville HospitalUrine WBCNONE SEEN #/HPFNONE SEEN [facility] HospitalEosinophils # (Auto)0.1 10 3/uL0.0-0.7FMercy Memorial HospitalImmature Granulocyte # (Auto)0.01 10 3/uL0.00-0.03 [facility] HospitalPlatelet mean volume Auto (Bld) [Entitic vol]on 49-01-0689Cumuaxfk mean volume (Bld) [Entitic vol]Platelet mean volume [Entitic volume] in Blood by Automated count9.5-13.5FMercy Memorial Hospital Platelets Auto (Bld) [#/Vol]on 08-82-6299Xdavmhoow (Bld) [#/Vol]Platelets [#/volume] in Blood by Automated -634AycrtpfkqBarnesville Hospital RBC Auto (Bld) [#/Vol]on 53-35-1592MFL (Bld) [#/Vol]Erythrocytes [#/volume] in Blood by Automated countLow4.70-6.10K[facility]tering Health Washington Townshiperum or plasma albumin/globulin mass ratioon 03-43-8907Iuuzrfp/Globulin [Mass ratio] Serum or plasma albumin/globulin mass ratioBarnesville Hospital Serum or plasma anion gap determinationon 76-05-8195Snedc gap [Moles/Vol]Serum or plasma anion gap determinationBarnesville HospitalBasophils Auto (Bld) [#/Vol]on 99-62-7571Ijsyjskgj (Bld) [#/Vol]Automated basophil count 0.0-0.1FMercy Memorial HospitalBasophils/100 WBC Auto (Bld)on 49-03-2108Vrxlzekmp/100 WBC (Bld)Automated basophil %0.2-2.0[facility] HospitalCNPNon 84-53-7452UQEGWouhhnblq (ENDOMN) ELENA FELIX ([id number]) 1960 M Date Time Provider Department 04/07/24 ALYSHA EMANUEL During your visit today, we recorded the following information about you: Arpit Assembler Flexible LeadsRena 04/07/2024 3:58 PM Signed Patients insurance called in states Teriparatide 20 mcg/dose (600mcg/2.4mL is not covered by patients insurance. They are recommending alternate medications: Forteo, Tymols, Alendronate Sodium. [employer] can be reached at [phone]. Rena Arpit Fibrous Wallboard Inspector [facility]-F20 Alysha Emanuel MD 04/08/2024 9:46 AM Addendum Resending rx. 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 Thank you so much Alysha Emanuel MD Dept of Endocrinology Yaa Koo RN 04/08/2024 12:57 PM Addendum Called and spoke with patient. Explained to patient that the medication prescribed is written as BOOM and will need to reach out to see if he is able to supervisor opening and picking medication. Since his insurance recommended Forteo and not generic, hopefully there should not be an issue, however, he will reach out via my chart with an update. Yaa SRINIVASAN, RN [facility] Allergies As of Date: 04/07/2024 Noted Allergy [...] Take 20 mcg subcutaneously daily - Insulin [place], Disposable, (BD ULTRAFINE III MINI PEN) 31 gauge x /16 USE WITH TERIPARATIDE PENS ONCE TIMES DAILY [...] encounter Disp Refills Start (more content not included)...NormalOhio State Health SystemvelandEosinophils/100 WBC Auto (Bld)on 75-97-1897Mfoqqdoryhu/100 WBC (Bld)Automated eosinophil %0.9-7.0[facility] HospitalErythrocyte distribution width Auto (RBC) [Ratio]on 79-60-2656Dloniswbved distribution width (RBC) [Ratio]Erythrocyte distribution width [Ratio] by Automated count11.0-15.0[facility] Estimated glomerular filtration rate (GFR) non- Americanon 04-07-2024 GFR/1.73 sq M.predicted among non-blacks MDRD (S/P/Bld) [Vol rate/Area]Estimated glomerular filtration rate (GFR) non- AmericanLow>=60 mL/min/1.73m 2 [facility] HospitalGlobulin Calc (S) [Mass/Vol]on 04-07-2024 Globulin (S) [Mass/Vol]Serum globulin measurement by calculation (mass/volume) [facility] HospitalHematocrit Auto (Bld) [Volume fraction]on 15-15-4643Dlfsikskce (Bld) [Volume fraction]Hematocrit [Volume Fraction] of Blood by Automated sanutXur29.0-54.0[facility] HospitalHemoglobin [Mass/volume] in Bloodon 89-73-3252Vhcjunegoe (Bld) [Mass/Vol]Hemoglobin [Mass/volume] in NlsuyQil98.0-18.0[facility] HospitalLaboratory - Chemistry and Chemistry - challengeon 10-23-9984Upnldfj [Mass/Vol]2.7 g/dLLow 3.4-5.0[facility] HospitalALP [Catalytic activity/Vol]90 U/L46-116 [facility] HospitalALT [Catalytic activity/Vol]31 U/L16-63 [facility] HospitalAST [Catalytic activity/Vol]17 U/L15-37 [facility] HospitalBilirubin [Mass/Vol]0.4 mg/dL0.2-1.0[facility] HospitalCalcium [Mass/Vol]9.0 mg/dL8.5-10.1FMercy Memorial HospitalChloride [Moles/Vol]108 mmol/NBnxw11-629PieugqmvnBarnesville HospitalCO2 [Moles/Vol]29.2 mmol/L21.0-32.0[facility] Creatinine [Mass/Vol]1.27 mg/dL0.70-1.30[facility] GFR/1.73 sq M.predicted MDRD (S/P/Bld) [Vol rate/Area]mL/min/{1.73_m2}>=60 mL/min/1.73m 2FMercy Memorial HospitalGlucose [Mass/Vol]105 mg/qH13-603 [facility] HospitalPotassium [Moles/Vol]4.7 mmol/L3.5-5.1FMercy Memorial HospitalProtein [Mass/Vol]6.7 g/dL6.4-8.2FWayne HealthCare Main Campusodium [Moles/Vol]144 mmol/U327-693HganwiyrwBarnesville HospitalUrea nitrogen [Mass/Vol]22.0 mg/dLHigh7.0-18.0[facility] HospitalUrea nitrogen/Creatinine [Mass ratio]17.3 mg/mgBarnesville HospitalLaboratory - Hematology and Cell countson 38-85-8826HJC (Bld) [Velocity]53 mm/hHigh<=20[facility] HospitalImmature granulocytes/100 WBC (Bld)0.6 %High0.0-0.5FMercy Memorial HospitalLeukocytes [#/volume] corrected for nucleated erythrocytes in Blood by Automated counon 40-68-3711FQF corrected for nucl RBC Auto (Bld) [#/Vol]Leukocytes [#/volume] corrected for nucleated erythrocytes in Blood by Automated coun4.0-11.0[facility] HospitalLymphocytes Auto (Bld) [#/Vol]on 21-67-4285Ywmhlesccqo (Bld) [#/Vol]Lymphocytes [#/volume] in Blood by Automated countLow1.2-3.8[facility] HospitalLymphocytes/100 WBC Auto (Bld)on 04-07-2024 Lymphocytes/100 WBC (Bld)Lymphocytes/100 leukocytes in Blood by Automated count Low20.5-60.0[facility] ToledoH Auto (RBC) [Entitic mass]on 39-13-5797IIY (RBC) [Entitic mass]MCH [Entitic mass] by Automated count25.9-34.0 [facility] ToledoHC Auto (RBC) [Mass/Vol]on 36-70-3018TYUS (RBC) [Mass/Vol]MCHC [Mass/volume] by Automated count29.9-35.2FMetroHealth Main Campus Medical CenterV Auto (RBC) [Entitic vol]on 22-07-3708QLR (RBC) [Entitic vol] MCV [Entitic volume] by Automated jvvprPiyy39.0-94.0[facility] HospitalMonocytes Auto (Bld) [#/Vol]on 60-59-7932Gucphuduf (Bld) [#/Vol]Automated blood monocyte count0.3-0.8[facility] HospitalMonocytes/100 WBC Auto (Bld)on 18-26-3466Xtwkugypn/100 WBC (Bld)Automated monocyte %1.7-12.0 [facility] HospitalNeutrophils Auto (Bld) [#/Vol]on 04-07-2024 Neutrophils (Bld) [#/Vol]Neutrophils [#/volume] in Blood by Automated count 1.4-6.5FMercy Memorial HospitalNeutrophils/100 WBC Auto (Bld)on 39-36-6335Itsabnzriqv/100 WBC (Bld)Automated neutrophil %43.0-75.0[facility] HospitalNo Panel Informationon 67-71-7748Gadnhgxxfcm # (Auto)0.4 10 3/uL0.0-0.7FMercy Memorial HospitalImmature Granulocyte # (Auto)0.04 10 3/uLHigh0.00-0.03[facility] HospitalPlatelet mean volume Auto (Bld) [Entitic vol]on 80-83-2929Vjgaehqv mean volume (Bld) [Entitic vol]Platelet mean volume [Entitic volume] in Blood by Automated countLow9.5-13.5FMercy Memorial HospitalPlatelets Auto (Bld) [#/Vol]on 75-01-8624Ftaoddrew (Bld) [#/Vol]Platelets [#/volume] in Blood by Automated qexfu974-472BqhpejprxBarnesville HospitalRBC Auto (Bld) [#/Vol]on 79-41-7911FGE (Bld) [#/Vol]Erythrocytes [#/volume] in Blood by Automated countLow4.70-6.10[facility] Washington Townshiperum or plasma albumin/globulin mass ratioon 27-80-3780Odpjhdv/Globulin [Mass ratio]Serum or plasma albumin/globulin mass ratioKettering Health Washington Townshiperum or plasma anion gap determinationon 31-95-9127Pvnrg gap [Moles/Vol]Serum or plasma anion gap determinationBarnesville Hospital25(OH)D3 SerPl-mCncon 63-64-090761923021-znktdewzmnokej D3 [Mass/Vol]75.7 ng/mL Eqolgx48.0-80.0[facility] on above:Order Comment: Specimen Type: BLOOD SPECIMEN Ordering Facility: [facility] Address: [address] [place], [place] [address]Performed By: #### 1989 #### [facility] CLIA [id number] [address] [place] [address] [place] AMERICABIOAVAILABLE TESTOSTERONE, ADULT MALEon 95-69-0399Blopljk [Mass/Vol]3.9 g/dLNormal3.9-4.9CKettering Health Preble on above:Order Comment: Specimen Type: BLOOD SPECIMEN Ordering Facility: [facility] Address: [address] [place], [place] [address]Performed By: #### 2731-8, SQBTESTM #### [facility] CLIA [id number] [address] [place] [address] [place] AMERICASex hormone binding globulin [Moles/Vol]104 nmol/TVodm83-98MlhnztpszBlanchard Valley Health System on above:Order Comment: Specimen Type: BLOOD SPECIMEN Ordering Facility: [facility] Address: [address] [place], [place] [address]Performed By: #### 2731-8, SQBTESTM #### [facility] CLIA [id number] [address] [place] [address] [place] AMERICATestosterone [Mass/Vol]764 ng/wVBqjpsz225-862QfiogvkjrKettering Health Preble on above:Order Comment: Specimen Type: BLOOD SPECIMEN Ordering Facility: [facility] Address: [address] [place], [place] [address]Result Comment: A testosterone level in the 193-320 ng/dL range with associated clinical symptoms is considered low and may indicate hypogonadism (from [facility] 2010 363:123-135). Results >320 ng/dL are considered normal.Performed By: #### 2731-8, SQBTESTM #### [facility] CLIA [id number] [address] [place] [address] [place] AHFWVXPHQKGWT164.6 ng/dLNormal 105.0-324.0[facility] on above:Order Comment: Specimen Type: BLOOD SPECIMEN Ordering Facility: [facility] Address: [address] [place], [place] [address]Performed By: #### 2731-8, SQBTESTM #### [facility] CLIA [id number] [address] [place] [address] [place] NXIQWWAGDCNMG77.7 pg/mLNormal 38.0-120.0[facility] on above:Order Comment: Specimen Type: BLOOD SPECIMEN Ordering Facility: [facility] Address: [address] [place], [place] [address]Performed By: #### 2731-8, SQBTESTM #### [facility] CLIA [id number] [address] [place] [address] [place] AMERICATSTFRP0.9 %Low1.1-2.6 [facility] on above:Order Comment: Specimen Type: BLOOD SPECIMEN Ordering Facility: [facility] Address: [address] [place], [place] [address]Performed By: #### 2731-8, SQBTESTM #### [facility] CLIA [id number] [address] [id number] [place] OF AMERICABioavailable testosterone percentageon 53-55-7547Rjdwqbtkdrma.free+weakly bound/Testosterone.total [Mass fraction]Bioavailable testosterone percentageLow1.1-2.6FMercy Memorial HospitalFree and bioavailable testosterone measurementon 03-17-2024 Testosterone.free+weakly bound [Mass/Vol]Free and bioavailable testosterone taxxmylufhk14.0-120.0[facility] HospitalLaboratory - Chemistry and Chemistry - challengeon 82-37-4575Cvvkjqr [Mass/Vol]3.9 g/dL3.9-4.9[facility] HospitalCalcium [Mass/Vol]9.6 mg/dL8.5-10.2FMercy Memorial HospitalChloride [Moles/Vol]104 mmol/F13-062GgkqydzlaBarnesville HospitalCO2 [Moles/Vol]27 mmol/K67-83JankfhtjcBarnesville HospitalCreatinine [Mass/Vol]1.35 mg/dLHigh0.73-1.22[facility] HospitalGlucose [Mass/Vol]147 mg/vWKrrf81-10IlnlowkokBarnesville HospitalComment on above: The [place] Diabetes Association (ADA) provides guidance for cutoff values for fasting glucose andrandom glucose. The ADA defines fasting as no [...] hyperglycemia or hyperglycemic crisis, random plasma glucose resultsgreater than or equal to 200 mg/dL meet the criteria for diagnosis of diabetes.Reference: Standardsof Medical Care in Diabetes 2016, [place] Diabetes Association. Diabetes Care. 2016.39(Suppl 1).Magnesium [Mass/Vol]1.8 mg/dL1.7-2.3FMercy Memorial HospitalPotassium [Moles/Vol]4.6 mmol/L3.7-5.1FMercy Memorial Hospital Sodium [Moles/Vol]141 mmol/H948-735ZroojzwquBarnesville HospitalTestosterone [Mass/Vol]173.6 ng/dL105.0-324.0[facility] HospitalUrea nitrogen [Mass/Vol]20 mg/dL9-24Barn[facility] HospitalMagnesium SerPlWellSpan Good Samaritan Hospitalon 04-83-8600Sdrvsujwj [Mass/Vol]1.8 mg/dLNormal1.7-2.3CKettering Memorial Hospital Comment on above:Order Comment: Specimen Type: BLOOD SPECIMEN Ordering Facility: [facility] Address: [address] [place], [place] [address]Performed By: #### 77860-7, 80171-2 #### [facility] CLIA [id number] [address] [place] [address] Informationon 65-18-2413Hngvyutxg GFR (CKD-EPI)59 mL/min/1.73m???Low>=60Barn[facility]ville HospitalComment on above:Estimated Glomerular Filtration Rate (eGFR) is calculated using the 2020 CKD-EPI creatinine equation. This equation utilizes serum creatinine, sex, and age as parameters. The creatinine assay has traceable calibration to isotope dilution-mass spectrometry. Refer to KDIGO guidelines for clinical interpretation. In patients with unstable renal function, e.g. those with acute kidney injury, the eGFRmay not accurately reflect actual GFR. Parathyroid Hormone (Intact)71 pg/gCXnxq09-16UjohqxgogBarnesville Hospital Phosphorus Level2.5 mg/dLLow2.7-4.8[facility] Washington Townshipex Hormone Binding Jyuauebg914 nmol/OHkzi10-59OxwneyirwBarnesville HospitalTestosterone Dwytm768 ng/zQ285-546PzitrflwiBarnesville HospitalComment on above:A testosterone level in the 193-320 ng/dL range with associated clinical symptoms is considered lowand may indicate hypogonadism (from NEJM 2010 363:123-135). Results >320 ng/dL are considered normal.PTH-Intact [facility] 03-17-2024 Parathyrin.intact [Mass/Vol]71 pg/jXQcgw48-94EfhnujnleTrumbull Memorial HospitalComment on above:Order Comment: Specimen Type: BLOOD SPECIMEN Ordering Facility: [facility] Address: [address] [place], [place] [address]Performed By: #### 2731-8, SQBTESTM #### [facility] CLIA [id number] [address] [place] [address] [place] AMERICARenal function 2000 panelon 30-00-1681Ifuwyay [Mass/Vol]3.8 g/dLLow3.9-4.9CKettering Health Pre[facility] on above:Order Comment: Specimen Type: BLOOD SPECIMEN Ordering Facility: [facility] Address: [address] [place], [place] [address]Performed By: #### 12070-5, #### [facility] CLIA [id number] [address] [place] [address] [place] AMERICAAnion gap [Moles/Vol]10 mmol/LNormal8-15[facility] on above:Order Comment: Specimen Type: BLOOD SPECIMEN Ordering Facility: [facility] Address: [address] [place], [place] [address]Performed By: #### 79899-0, #### [facility] CLIA [id number] [address] [place] [address] [place] AMERICACalcium [Mass/Vol]9.6 mg/dL Normal8.5-10.2CKettering Health Preble on above:Order Comment: Specimen Type: BLOOD SPECIMEN Ordering Facility: [facility] Address: [address] [place], [place] [address]Performed By: #### 98156-4, #### [facility] CLIA [id number] [address] [place] [address] [place] AMERICAChloride [Moles/Vol]104 mmol/XKszjtc65-738IdeyzuhsvBlanchard Valley Health System on above:Order Comment: Specimen Type: BLOOD SPECIMEN Ordering Facility: [facility] Address: [address] [place], [place] [address]Performed By: #### 14675-7, #### [facility] CLIA [id number] [address] [place], [place] [address] [place] AMERICACO2 [Moles/Vol]27 mmol/L Nwmphp15-98GvijzmntsBlanchard Valley Health System on above:Order Comment: Specimen Type: BLOOD SPECIMEN Ordering Facility: [facility] Address: [address] [place], [place] [address]Performed By: #### 27844-1, #### [facility] CLIA [id number] [address] [place] [address] [place] AMERICACreatinine [Mass/Vol]1.35 mg/dLHigh0.73-1.22[facility] on above:Order Comment: Specimen Type: BLOOD SPECIMEN Ordering Facility: [facility] Address: [address] [place], [place] [address]Performed By: #### 62934-9, #### [facility] CLIA [id number] [address] [place] [address] [place] AMERICACreatinine and Glomerular filtration rate.predicted panel (S/P/Bld)59 mL/min/1.73m???Low>=60[facility] on above:Order Comment: Specimen Type: BLOOD SPECIMEN Ordering Facility: [facility] Address: [address] [place], [place] [address]Result Comment: Estimated Glomerular Filtration Rate (eGFR) is calculated using the 2020 CKD-EPI cre atinine equation. This equation utilizes serum creatinine, sex, and age as parameters. The creatinine assay has traceable calibration to isotope dilution- mass spectrometry. Refer to KDIGO guidelines for clinical interpretation. In patients with unstable renal function, e.g. those with acute kidney injury, the eGFR may not accurately reflect actual GFR.Performed By: #### 53810-4, #### [facility] CLIA [id number] [address] [place] [address] [place] AMERICAGlucose [Mass/Vol]147 mg/dL Yosf83-44UepawipgwBlanchard Valley Health System on above:Order Comment: Specimen Type: BLOOD SPECIMEN Ordering Facility: [facility] Address: [address] [place], [place] [id number] Comment: The [place] Diabetes Association (ADA) provides guidance for cutoff [...] Standards of Medical Care in Diabetes 2016, [place] Diabetes Association. Diabetes Care. 2016.39(Suppl 1).Performed By: #### 23032-7, #### [facility] CLIA [id number] [address] [place] [address] [place] AMERICAPhosphate [Mass/Vol]2.5 mg/dLLow2.7-4.8CKettering Health Preble on above:Order Comment: Specimen Type: BLOOD SPECIMEN Ordering Facility: [facility] Address: [address] [place], [place] [address]Performed By: #### 65030-3, #### [facility] CLIA [id number] [address] [place] [address] [place] AMERICAPotassium [Moles/Vol]4.6 mmol/LNormal3.7-5.1CKettering Health Preble on above:Order Comment: Specimen Type: BLOOD SPECIMEN Ordering Facility: [facility] Address: [address] [place], [place] [address]Performed By: #### 80207-5, #### [facility] CLIA [id number] [address] [place] [address] [place] AMERICASodium [Moles/Vol]141 mmol/L Grlbpj687-764XgmhozfvuBlanchard Valley Health System on above:Order Comment: Specimen Type: BLOOD SPECIMEN Ordering Facility: [facility] Address: [address] [place], [place] [address]Performed By: #### 06728-6, #### [facility] CLIA [id number] [address] [place] [address] [place] AMERICAUrea nitrogen [Mass/Vol]20 mg/dLNormal01-14[facility] on above:Order Comment: Specimen Type: BLOOD SPECIMEN Ordering Facility: [facility] Address: [address] [place], [place] [address]Performed By: #### 69685-3, #### [facility] CLIA [id number] [address] [place] [address] [place] AMERICASerum or plasma anion gap determinationon 43-32-3288Cfmyi gap [Moles/Vol]Serum or plasma anion gap determination-[facility] Washington Townshiperum or plasma calcidiol measurement (mass/volume)on 68-02-661737823746-dhqvdshfexptgx D3 [Mass/Vol]Serum or plasma calcidiol measurement (mass/volume)31.0-80.0[facility]ville HospitalCALCIUM, 24 HR URINEon 88-05-1232Mbcxbbx (24H U) [Mass/Time]39.1 mg/24 hr Pbi803.0-300.0[facility] on above:Order Comment: Specimen Type: URINE SPECIMEN Ordering Facility: [facility] Address: [address] [place], [place] [address]Performed By: #### UCRD #### [facility] CLIA [id number] [address] [place] [address] [place] PER [facility] CLIA [id number] [address] [place] [address] #### UCALCD, 2956-1 #### [facility] CLIA [id number] [address] [place], [place] [address] [place] AMERICACREATININE, 24 HOUR URINEon 84-62-4091Hclqezsvzy (24H U) [Mass/Time]1.506 g/24 hrNormal1.000-2.000[facility] on above:Order Comment: Specimen Type: URINE SPECIMEN Ordering Facility: [facility] Address: [address] [place], [place] [address]Performed By: #### 3087-4 #### [facility] CLIA [id number] [address] [place] [address] [place] AMERICAPERIOD (HRS)24 hrNormal [facility] on above:Order Comment: Specimen Type: URINE SPECIMEN Ordering Facility: [facility] Address: [address] [place], [place] [address]Performed By: #### 3087-4 #### [facility] CLIA [id number] [address] [place] [address] [place] AMERICASpecimen volume (24H U)1.7 L NormalBlanchard Valley Health System on above:Order Comment: Specimen Type: URINE SPECIMEN Ordering Facility: [facility] Address: [address] [place], [place] [address]Performed By: #### 3087-4 #### [facility] CLIA [id number] [address] [place] [address] [place] AMERICACitrate 24h Ur-mRateon 71-20-2352Xxtfjvh (24H U) [Mass/Time]418 mg/53fkhNqwgfp752-629ZnyonwpydBlanchard Valley Health System on above:Order Comment: Specimen Type: URINE SPECIMEN Ordering Facility: [facility] Address: [address] [place], [place] [address]Result Comment: This test was developed, and its performance characteristics determined by the [facility] Department of Pathology and Laboratory Medicine. It has not been cleared or approved bythe FDA. The [facility] Department of Pathology and Laboratory Medicine is regulated under CLIA as qualified to perform high- complexity testing. This test is used for clinical purposes. It should not be regarded as investigational or for research.Performed By: #### 6687-8 #### [facility] CLIA [id number] [address] [place] [address] [place] AMERICAOxalate 24h Ur-mRateon 05-33-1421Cwfyohc (24H U) [Mass/Time]39 mg/71ajaOqxeix3-15HyejuuggfBlanchard Valley Health System on above:Order Comment: Specimen Type: URINE SPECIMEN Ordering Facility: [facility] Address: [address] [place], [place] [address]Result Comment: This test was developed, and its performance characteristics determined by the [facility] Department of Pathology and Laboratory Medicine. It has not been cleared or approved bythe FDA. The [facility] Department of Pathology and Laboratory Medicine is regulated under CLIA as qualified to perform high- complexity testing. This test is used for clinical purposes. It should not be regarded as investigational or for research.Performed By: #### 2701-1 #### [facility] CLIA [id number] [address] [place] [address] [place] AMERICASodium 24h Ur-sRateon 94-29-8499Vmhhwu (24H U) [Moles/Time]223 mmol/24 ddTmtc12-804QiyqskfgpBlanchard Valley Health System on above:Order Comment: Specimen Type: URINE SPECIMEN Ordering Facility: [facility] Address: [address] [place], [place] [address]Performed By: #### 3087-4 #### [facility] CLIA [id number] [address] [place] [address] [place] AMERICAUrate 24h Ur-mRateon 77-58-9592Xnszu (24H U) [Mass/Time]642.6 mg/30ecBmlhsn379.0-750.0[facility] on above:Order Comment: Specimen Type: URINE SPECIMEN Ordering Facility: [facility] Address: [address] [place], [place] [address]Performed By: #### 3087-4 #### [facility] CLIA [id number] [address] [id number] [facility] HOSPITALCNOVon 43-92-9859QTMVPtlxjx Visit (ENCAMN) ELENA FELIX ([id number]) 1960 M Date Time Provider Department 02/08/24 [...] [place] the [place] [address] [facility] [id number] for evaluation, management, and treatment of the following issues: bone health My final recommendations will be communicated back to the requesting physician by way of shared medical record or letter. Coming from [place], [place] Mr. Felix is here to discuss [...] MEDICAL HISTORY Diagnosis Date Ankylosing spondylitis ([facility]) Dr Hodges; age 19 yrs Arthritis Back pain four back surgeries Cardiomyopathy ([facility]) Nonischemic Congestive Cerebrovascular small vessel disease 08/24/2016 On ASA DVT (deep venous thrombosis) ([facility]) Esophageal reflux Former smoker Kidney stones Major depressive disorder with single episode, in remission ([facility]) 08/24/2016 Morbid obesity with BMI of 40.0-44.9, adult ([facility]) Neuropathy Obstructive sleep apnea syndrome, severe On auto-CPAP - sleep study done on 07/10/16 Pneumonia POTS (postural orthostatic tachycardia syndrome) PAS (more content not included)...NormalTrumbull Memorial HospitalUrology Office/Clinic Noteon 13-88-0037Bhnyddb Office/Clinic NoteUrology Office/Clinic Note Chief Complaint f/u HPI Staff 63 year old male patient presents today for a follow up from 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 Dysuria: _no Incomplete bladder emptying: [...] Contact Information ARABELLA MUNIZ, Jerrod Moya, [address] [place] [address]- Additional Instructions: 06/2024 with PSA Patient Education [...] Injection of sacroiliac joint using fluoroscopic guidance (06/26/2014),Injection of sacroiliac joint using fluoroscopic guidance (04/06/2014), Radiofrequency denervation of spinal facet joint of lumbar vertebra (02/16/2014), Radiofrequency denervation of spinal facet joint of lumbar vertebra (02/02/2014), Injection of facet joint using fluoroscopic guidance (12/17/2013), Injection of facet joint using fluoros (more content not included)...[facility] CenterComment on above: Result Comment: Electronically Signed By: Jerrod BELL MD\.br\Date and Time Signed: 01/04/24 11:28 EDT\.br\Electronically Co-Signed By: Haylee Gutierres\.br\Date and Time Co-Signed: 01/03/2411:26 EDTSurgical Pathology Reporton [id number] Pathology Report[address] [place] [address]- Surgical Pathology Report Collected Date/Time: 12/25/2023 09:49 [...] is entirely submitted in one cassette. (DC) DC:[facility] Microscopic Description Microscopic examination performed unless gross only specified.[facility] Medical CenterComment on above:Performed By: #### [id number] #### [facility] [address] [place] [address]Ufht OR Intraoperative Recordon [id number] OR Intraoperative RecordMain OR Intraoperative Record IntraOp Document Type FTURO Summary Primary Physician: Jerrod BELL MD Finalized Date/Time: 12/25/23 10:00:53 Pt. Name: ELENA FELIX/Sex: 1960 Male Med Rec #: [id number] Physician: Jerrod BELL MD Financial #: [id number] Pt. Type: O Room/Bed: / Admit/Disch: 12/25/23 [...] Mary Garcia Role Performed Surgeon - Primary Cigar Packing Examiner - Primary Scrub - Primary Time In 12/25/23 09:37:00 12/25/23 09:37:00 12/25/23 09:37:00 Time Out 12/25/23 10:02:00 12/25/23 10:02:00 12/25/23 10:02:00 Procedure PENILE CONDYLOMA PENILE CONDYLOMA PENILE CONDYLOMA EXCISION(.) EXCISION(.) EXCISION(.) Comments Last Modified By: Aleksandra BRAGG, Agata Lake RN, Agata Lake RN, Agata Rodríguez 12/25/23 Erica Rodríguez 12/25/23 Erica Rodríguez 12/25/23 [...] ARABELLA MUNIZ, Jerrod Moya, Verified (If Participants Aleksandra BRAGG, Agata Applicable) [...] Signatures Signed By: Agata Lake RN 12/25/23 10:00[facility] CenterMain OR Preoperative Recordon [id number] OR Preoperative RecordMain OR Preoperative Record Holding Area Document Type FTURO Summary Primary Physician: Jerrod BELL MD Finalized Date/Time: 12/25/23 09:38:14 Pt. Name: ELENA FELIX.O.B./Sex: 1960 Male Med Rec #: [id number] Physician: Jerrod BELL MD Financial #: [id number] Pt. Type: O Room/Bed: / Admit/Disch: 12/25/23 [...] or her perioperative plan of care The patient'sright to privacy is maintained Surgery Checklist FTURO Entry 1 Patient Birthday, ID Band Procedure History and Physical, Identification: Check, Patient Verification: Surgical Consent, With Participation Patient NPO after Midnight: n/a Personal Items: Glasses Limitations: up ad khalif Complaints of Pain: No Skin Integrity Intact, [place], Warm, & Dry Vitals - EU Blood Pressure 140/80 Pulse 82 bpm Respirations 18 br/min SPO2 99 % Additional None RN Reviewed Yes Specimens Collected Last Modified By: Agata Lake RN 12/25/23 09:38:10 Finalized By: Agata Lake RN Document Signatures Signed By: David CLEARYRosanna Russ 12/25/23 09:05 Agata Lake RN 12/25/23 09:38[facility] Operative Reporton [id number] ReportOperative Report Patient: ELENA FELIX Age: 63 years [...] be in a week to remove the sutures.[facility] Medical CenterComment on above:Result Comment: Electronically Signed By: Jerrod BELL MD\.br\Date and Time Signed: 12/25/23 10:05 LENINTCNOVorlando 47-27-2768JEFGZmiszu Visit (ORFWHP) ELENA FELIX ([id number]) 1960 M Date Time Provider Department 11/29/23 [...] [S72.002G] Order(s):XR HIP GENERAL 3V PELV/AP/LAT LEFT [[id number]] Order #: [id number] FUTURE CONSULT TO PHYSICAL THERAPY [9004] Order #: [id number]: 1 FUTURE Prescriptions as of 11/29/2023 - [...] C. difficile colitis [A (more content not included)...[facility] P[facility]+ AP/LAT LTon 90-60-3712WE HIP 3V PELV+ AP/LAT LT* * *Final Report* * * DATE OF [...] the left proximal femur with intact hardware. Car Deliverer: PSCB Transcribe Date/Time: Dec 03 2023 3:16P Dictated by : NIK STANFORD MD This examination was interpreted and the report reviewed and electronically signed by: NIK STANFORD MD on Dec 03 2023 3:19PM EST [id number] Recovery Center and Hospital 26-26-2426XUYRYkqdnddko (ORFWHP) ELENA FELIX ([id number]) 1960 Date Time Provider Department 09/28/23 MISTY WALLACE [...] Order(s):CONSULT TO HIP FRACTURE LIAISON SERVICE (FRAGILITY) [[id number]] Order #: [id number]: 1 FUTURE Prescriptions as of 09/28/2023 - [...] 02/05/2017 Encounter Status:Closed by ANABELLE LONDONO on 09/28/23[facility]25([place])D3 Lynne 250598-wknflmloderxpd D3 [Mass/Vol]19.7 ng/mLLow31.0-80.0[facility] HospitalComment on above:Order Comment: Specimen Type: BLOOD SPECIMEN Ordering Facility: [facility] Address: [address] [place], [place] [address]Ejqtli Comment: Classification of 25 [place] Vitamin D status: Deficiency/Insufficiency: < or = 30 ng/ml. Sufficiency/Optimal Levels: 31-80 ng/mL Toxicity: > 100 ng/mL. Test performed by chemiluminescent immunoassay.Performed By: #### 1989-3 #### [facility] CLIA [id number] [address] [place] [address] [place] OF YTYSYGZ43-ovcjdrpxshcmdy D3 [Mass/Vol]on 62-87-8370Lihzijwdltohux and review of laboratory resultsAbnormal [facility] Medical CenterThe reference range interval was based on an analysis of samples from healthy adults and may not pertain to children from 0-18 years old. [facility]-REACTIVE PROTEINon 62-75-6458GVU [Mass/Vol]0.4 mg/dLNINF - 0.9 mg/dLSouthern [facility] Medical Center panel Auto (Bld)on 09-27-2023 Erythrocyte distribution width (RBC) [Ratio]13.9 %11.5 - 15.0 %[facility] Hematocrit (Bld) [Volume fraction]44.7 %39.0 - 51.0 %[facility] Medical CenterHemoglobin (Bld) [Mass/Vol]13.9 g/dL13.0 - 17.0 g/dLSalem Regional Medical CenterInterpretation and review of laboratory resultsNormalCGreene Memorial HospitalH (RBC) [Entitic mass]29.4 pg26.0 - 34.0 pgCGreene Memorial HospitalHC (RBC) [Mass/Vol]31.1 g/dL30.5 - 36.0 g/dL [facility], BeachwoodV (RBC) [Entitic vol]94.7 fL80.0 - 100.0 fLCLouis Stokes [facility] Medical Center Nucleated RBC (Bld) [#/Vol]NINFClevelDelaware County HospitalPlatelet mean volume (Bld) [Entitic vol]9.8 fL9.0 - 12.7 fLCLouis Stokes Cleveland VA Medical CenterPlatelets (Bld) [#/Vol]196 10*3/uLSalem Regional Medical CenterRBC (Bld) [#/Vol]4.72 10*6/uL4.20 - 6.00 m/Holzer HospitalWBC (Bld) [#/Vol]5.35 10*3/Providence HospitalErythrocyte distribution width (RBC) [Ratio]13.9 %Mgnxnm81.5-15.0Warren HospitalComment on above:Order Comment: Specimen Type: BLOOD SPECIMEN Ordering Facility: [facility] Address: [address] [place], [place] [address]Performed By: #### 93884-9 #### [facility] CLIA [id number] [address] [place], [place] [address]Hematocrit (Bld) [Volume fraction] 44.7 %Rfrgia63.0-51.0[facility] HospitalComment on above:Order Comment: Specimen Type: BLOOD SPECIMEN Ordering Facility: [facility] Address: [address] [place], [place] [address]Performed By: #### 94873-4 #### [facility] CLIA [id number] [address] [place] [address] AMERICAHemoglobin (Bld) [Mass/Vol]13.9 g/dL Gktsmr19.0-17.0[facility] HospitalComment on above:Order Comment: Specimen Type: BLOOD SPECIMEN Ordering Facility: [facility] Address: [address] [place], [place] [address]Performed By: #### 96092-4 #### [facility] CLIA [id number] [address] [place], [place] [address]MCH (RBC) [Entitic mass]29.4 pg Farlwf28.0-34.0[facility] HospitalComment on above:Order Comment: Specimen Type: BLOOD SPECIMEN Ordering Facility: [facility] Address: [address] [place], [place] [address]Performed By: #### 96019-0 #### [facility] CLIA [id number] [address] [place], [place] [address]MC (RBC) [Mass/Vol]31.1 g/dLNormal 30.5-36.0[facility] HospitalComment on above:Order Comment: Specimen Type: BLOOD SPECIMEN Ordering Facility: [facility] Address: [address] [place], [place] [address]Performed By: #### 15932-4 #### [facility] CLIA [id number] [address] [place] [address] [place] AMERICAMCV (RBC) [Entitic vol]94.7 fLNormal 80.0-100.0[facility] HospitalComment on above:Order Comment: Specimen Type: BLOOD SPECIMEN Ordering Facility: [facility] Address: [address] [place], [place] [address]Performed By: #### 52301-9 #### [facility] CLIA [id number] [address] [place] [address] [place] AMERICANucleated RBC (Bld) [#/Vol]10*3/uL Normal<0.01[facility] HospitalComment on above:Order Comment: Specimen Type: BLOOD SPECIMEN Ordering Facility: [facility] Address: [address] [place], [place] [address]Performed By: #### 65148-9 #### [facility] CLIA [id number] [address] [place] [address] [place] AMERICAPlatelet mean volume (Bld) [Entitic vol]9.8 fLNormal9.0-12.7Ffuller hospital HospitalComment on above:Order Comment: Specimen Type: BLOOD SPECIMEN Ordering Facility: [facility] Address: [address] [place], [place] [address]Performed By: #### 54001-0 #### [facility] CLIA [id number] [address] [place] [address] [place] AMERICAPlatelets (Bld) [#/Vol]196 10*3/uL Knvezq503-527Bkwehcuk HospitalComment on above:Order Comment: Specimen Type: BLOOD SPECIMEN Ordering Facility: [facility] Address: [address] [place], [place] [address]Performed By: #### 83626-3 #### [facility] CLIA [id number] [address] [place] [address] [place] AMERICARBC (Bld) [#/Vol]4.72 10*6/uLNormal 4.20-6.00[facility] HospitalComment on above:Order Comment: Specimen Type: BLOOD SPECIMEN Ordering Facility: [facility] Address: [address] [id number] By: #### 91114-1 #### [facility] CLIA [id number] [address]ETWBC (Bld) [#/Vol]5.35 10*3/uLNormal 3.70-11.00[facility] on above:Order Comment: Specimen Type: BLOOD SPECIMEN Ordering Facility: [facility] Address: [address] [id number] By: #### 26642-9 #### [facility] [place] [id number] [address] [id number] [facility] HOSPITALCNOVon 14-04-2815DMSAWpvzay Visit (ORFWHP) ISIDROELENA NOVOA ([id number]) 1960 M Date Time Provider Department 09/27/23 10:45 AM MISTY WALLACE ORFP During your visit today, we recorded the [...] MEDICAL HISTORY Diagnosis Date Ankylosing spondylitis ([facility]) Dr Hodges Ankylosing spondylitis ([facility]) Arthritis Back pain Cardiomyopathy ([facility]) Nonischemic Congestive Cerebrovascular small vessel disease 08/24/2016 On ASA DVT (deep venous thrombosis) ([facility]) Esophageal reflux Former smoker Kidney stones Major depressive disorder with single episode, in remission ([facility]) 08/24/2016 Morbid obesity with BMI of 40.0-44.9, adult ([facility]) Neuropathy Obstructive sleep apnea syndrome, [...] neck fracture with delaye (more content not included)...NormalHeywood Hospital SerPl-mCncon 63-03-0731DHL [Mass/Vol]0.4 mg/dLNormal<0.9Warren HospitalComment on above:Order Comment: Specimen Type: BLOOD SPECIMEN Ordering Facility: [facility] Address: [address] [place], [place] [address]Performed By: #### 3356-3, 21614-8, 1987-08 #### [facility] CLIA [id number] [address] [place] [address] [place] AMERICACRP [Mass/Vol]on 09-27-2023 Interpretation and review of laboratory resultsNormalCLouis Stokes [facility] Comprehensive metabolic 2000 panelon 67-47-2786Ykrwivs [Mass/Vol]3.6 g/dLLow3.9 - 4.9 g/dLRochester ClinicALP [Catalytic activity/Vol]86 U/L38 - 113 U/L [facility] ClinicALT [Catalytic activity/Vol]35 U/L10 - 54 U/LCchillicothe hospital Clinic Anion gap [Moles/Vol]13 mmol/L8 - 15 mmol/LCleveland ClinicAST [Catalytic activity/Vol]28 U/L14 - 40 U/LCleveland ClinicBilirubin [Mass/Vol]0.3 mg/dL0.2 - 1.3 mg/dLRochester ClinicCalcium [Mass/Vol]9.2 mg/dL8.5 - 10.2 mg/dLRochester ClinicChloride [Moles/Vol]104 mmol/L98 - 107 mmol/LCleveland ClinicCO2 [Moles/Vol]25 mmol/L22 - 30 mmol/LCleveland ClinicCreatinine [Mass/Vol]1.13 mg/dL0.73 - 1.22 mg/dLRochester ClinicGFR/1.73 sq M.predicted among non-blacks MDRD (S/P/Bld) [Vol rate/Area]73 mL/min/{1.73_m2}- PINFCLouis Stokes Cleveland VA Medical CenterComment on above:Estimated Glomerular Filtration Rate (eGFR) is calculated using the 2020 CKD-EPI creatinine equation. This equation utilizes serum creatinine, sex, and age as parameters. The creatinine assay has traceable calibration to isotope dilution-mass spectrometry. Refer to KDIGO guidelines for clinical inte rpretation. In patients with unstable renal function, e.g. those with acute kidney injury, the eGFRmay not accurately reflect actual GFR.Glucose [Mass/Vol] 103 mg/mDWihu23 - 99 mg/dLSalem Regional Medical CenterComment on above:The [place] Diabetes Association (ADA) provides guidance for cutoff [...] Standards of Medical Care in Diabetes 2016, [place] Diabetes Association. Diabetes Care. 2016.39(Suppl 1). Interpretation and review of laboratory resultsAbnormalCleveland ClinicPotassium [Moles/Vol]4.8 mmol/L3.7 - 5.1 mmol/LCleveland ClinicProtein [Mass/Vol]6.8 g/dL 6.3 - 8.0 g/dLClekettering health troy ClinicSodium [Moles/Vol]142 mmol/L136 - 144 mmol/L [facility] Medical CenterUrea nitrogen [Mass/Vol]12 mg/dL9 - 24 mg/dLSalem Regional Medical Center Albumin [Mass/Vol]3.6 g/dLLow3.9-4.9[facility] HospitalComment on above:Order Comment: Specimen Type: BLOOD SPECIMEN Ordering Facility: [facility] Address: [address] [place], [place] [address]Performed By: #### 3016-3, 1987-08 #### [facility] CLIA [id number] [address] [place] [address] [place] AMERICAALP [Catalytic activity/Vol]86 U/L Lsrsda84-986Rdgdkuew HospitalComment on above:Order Comment: Specimen Type: BLOOD SPECIMEN Ordering Facility: [facility] Address: [address] [place], [place] [address]Performed By: #### 3016-3, , 1987-08 #### [facility] CLIA [id number] [address] [place] [address] [place] AMERICAALT [Catalytic activity/Vol]35 U/L Udybun02-71Mrhobiot HospitalComment on above:Order Comment: Specimen Type: BLOOD SPECIMEN Ordering Facility: [facility] Address: [address] [place], [place] [address]Performed By: #### 3016-3, , 1987-08 #### [facility] CLIA [id number] [address] [place] [address] [place] AMERICAAnion gap [Moles/Vol]13 mmol/LNormal 8-15[facility] HospitalComment on above:Order Comment: Specimen Type: BLOOD SPECIMEN Ordering Facility: [facility] Address: [address] [place], [place] [address]Performed By: #### 3016-3, , 1987-08 #### [facility] CLIA [id number] [place] [address] [place] AMERICAAST [Catalytic activity/Vol]28 U/L Mwyona15-27Tzzmlzji HospitalComment on above:Order Comment: Specimen Type: BLOOD SPECIMEN Ordering Facility: [facility] Address: [address] [place], [place] [address]Performed By: #### 3016-3, , 1987-08 #### [facility] CLIA [id number] [address] [place] [address] [place] AMERICABilirubin [Mass/Vol]0.3 mg/dLNormal 0.2-1.3Ffuller hospital HospitalComment on above:Order Comment: Specimen Type: BLOOD SPECIMEN Ordering Facility: [facility] Address: [address] [place], [place] [address]Performed By: #### 3016-3, , 1987-08 #### [facility] CLIA [id number] [address] [place] [address] [place] AMERICACalcium [Mass/Vol]9.2 mg/dLNormal 8.5-10.2Ffuller hospital HospitalComment on above:Order Comment: Specimen Type: BLOOD SPECIMEN Ordering Facility: [facility] Address: [address] [place], [place] [address]Performed By: #### 3016-3, , 1987-08 #### [facility] CLIA [id number] [place] [address] [place] AMERICAChloride [Moles/Vol]104 mmol/LNormal 98-107FaBenjamin Stickney Cable Memorial HospitalComment on above:Order Comment: Specimen Type: BLOOD SPECIMEN Ordering Facility: [facility] Address: [address] [place], [place] [address]Performed By: #### 3016-3, , 1987-08 #### [facility] CLIA [id number] [address] [place] [address] [place] AMERICACO2 [Moles/Vol]25 mmol/JBomqea89-88 [facility] HospitalComment on above:Order Comment: Specimen Type: BLOOD SPECIMEN Ordering Facility: [facility] Address: [address] [place], [place] [address]Performed By: #### 3016-3, , 1987-08 #### [facility] CLIA [id number] [address] [place] [address] [place] AMERICACreatinine [Mass/Vol]1.13 mg/dL Normal0.73-1.22[facility] Community HospitalComment on above:Order Comment: Specimen Type: BLOOD SPECIMEN Ordering Facility: [facility] Address: [address] [place], [place] [address]Performed By: #### 3016-3, , 1987-08 #### [facility] CLIA [id number] [address] [place] [address] [place] AMERICACreatinine and Glomerular filtration rate.predicted panel (S/P/Bld)73 mL/min/1.73m???Normal>=60[facility] Comment on above:Order Comment: Specimen Type: BLOOD SPECIMEN Ordering Facility: [facility] Address: [address] [place], [place] [address]Result Comment: Estimated Glomerular Filtration Rate (eGFR) is calculated using the 2020 CKD-EPI cre atinine equation. This equation utilizes serum creatinine, sex, and age as parameters. The creatinine assay has traceable calibration to isotope dilution- mass spectrometry. Refer to KDIGO guidelines for clinical interpretation. In patients with unstable renal function, e.g. those with acute kidney injury, the eGFR may not accurately reflect actual GFR.Performed By: #### 3016-3, , 1987-08 #### [facility] CLIA [id number] [place] [address] [place] AMERICAGlucose [Mass/Vol]103 mg/dDNnex77-77 [facility] HospitalComment on above:Order Comment: Specimen Type: BLOOD SPECIMEN Ordering Facility: [facility] Address: [address] [place], [place] [address]Result Comment: The [place] Diabetes Association (ADA) provides guidance for cutoff [...] Standards of Medical Care in Diabetes 2016, [place] Diabetes Association. Diabetes Care. 2016.39(Suppl 1).Performed By: #### 3016-3, , 1987-08 #### [facility] CLIA [id number] [address] [place] [address] [place] AMERICAPotassium [Moles/Vol]4.8 mmol/L Normal3.7-5.1FCranberry Specialty HospitalComment on above:Order Comment: Specimen Type: BLOOD SPECIMEN Ordering Facility: [facility] Address: [address] [place], [place] [address]Performed By: #### 3016-3, 1987-08 #### [facility] CLIA [id number] [address] [place] [address] [place] AMERICAProtein [Mass/Vol]6.8 g/dLNormal 6.3-8.0FaBenjamin Stickney Cable Memorial HospitalComment on above:Order Comment: Specimen Type: BLOOD SPECIMEN Ordering Facility: [facility] Address: [address] [place], [place] [address]Performed By: #### 3016-3, , 1987-08 #### [facility] CLIA [id number] [address] [place] [address] [place] AMERICASodium [Moles/Vol]142 mmol/LNormal 136-144[facility] Community HospitalComment on above:Order Comment: Specimen Type: BLOOD SPECIMEN Ordering Facility: [facility] Address: [address] [place], [place] [address]Performed By: #### 3016-3, , 1987-08 #### [facility] CLIA [id number] [address] [place] [address] [place] AMERICAUrea nitrogen [Mass/Vol]12 mg/dL Normal9-24[facility] HospitalComment on above:Order Comment: Specimen Type: BLOOD SPECIMEN Ordering Facility: [facility] Address: [address] [place], [place] [address]Performed By: #### 3016-3, , 1987-08 #### [facility] CLIA [id number] [address] [place] [address] [place] AMERICAESR Westergren method (Bld) [Velocity]on 54-81-5468JWE (Bld) [Velocity]26 mm/[facility] Interpretation and review of laboratory resultsAbnormalCleveland Holzer Medical Center – JacksonR (Bld) [Velocity]26 mm/hHigh0-15[facility] HospitalComment on above: Order Comment: Specimen Type: BLOOD SPECIMEN Ordering Facility: [facility] Address: [address] [place], [place] [address]Performed By: #### 4537-7 #### [facility] CLIA [id number] [address] [place] [address] [place] AMERICAErythrocyte distribution width Auto (RBC) [Ratio]on 97-63-3563Tpmrnhydmhb distribution width (RBC) [Ratio]13.9 %11.5-15.0[facility]ville HospitalHematocrit Auto (Bld) [Volume fraction]on 92-85-8255Hgcmcolhnz (Bld) [Volume fraction]44.7 %39.0-51.0 [facility] HospitalHemoglobin [Mass/volume] in Bloodon 09-27-2023 Hemoglobin (Bld) [Mass/Vol]13.9 g/dL13.0-17.0[facility] Laboratory - Chemistry and Chemistry - challengeon 43-55-1071Uxzikob [Mass/Vol] 3.6 g/dL3.9-4.9[facility] HospitalALP [Catalytic activity/Vol]86 U/K95-495GbwhzogplBarnesville HospitalALT [Catalytic activity/Vol]35 U/L 10-54Barn[facility]ville HospitalAST [Catalytic activity/Vol]28 U/L14-40 [facility] HospitalBilirubin [Mass/Vol]0.3 mg/dL0.2-1.3FMercy Memorial HospitalCalcium [Mass/Vol]9.2 mg/dL8.5-10.2FMercy Memorial HospitalChloride [Moles/Vol]104 mmol/I27-972OehkwduluBarnesville HospitalCO2 [Moles/Vol]25 mmol/Q44-77LhxsfooqdBarnesville HospitalCreatinine [Mass/Vol]1.13 mg/dL0.73-1.22Barn[facility]ville HospitalGlucose [Mass/Vol] 103 mg/sE47-45ZhgptzvevBarnesville HospitalComment on above:The [place] Diabetes Association (ADA) provides guidance for cutoff values for fasting glucose andrandom glucose. The ADA defines fasting as no [...] hyperglycemia or hyperglycemic crisis, random plasma glucose resultsgreater than or equal to 200 mg/dL meet the criteria for diagnosis of diabetes.Reference: Standardsof Medical Care in Diabetes 2016, [place] Diabetes Association. Diabetes Care. 2016.39(Suppl 1). Potassium [Moles/Vol]4.8 mmol/L3.7-5.1FWayne HealthCare Main Campusodium [Moles/Vol]142 mmol/Q687-022VwwlpecoeBarnesville HospitalTSH Qn0.957 m[IU]/L 0.270-4.200Barn[facility]ville HospitalUrea nitrogen [Mass/Vol]12 mg/dL9-24 [facility] HospitalLaboratory - Hematology and Cell countson 32-44-7439YMF (Bld) [Velocity]26 mm/h0-15[facility] Leukocytes [#/volume] corrected for nucleated erythrocytes in Blood by Automated counon 44-17-0816JBR corrected for nucl RBC Auto (Bld) [#/Vol]5.35 k/uL 3.70-11.00[facility] ToledoH Auto (RBC) [Entitic mass]on 26-12-3779QFS (RBC) [Entitic mass]29.4 pg26.0-34.0[facility]ville HospitalMCHC Auto (RBC) [Mass/Vol]on 39-80-6514GNJH (RBC) [Mass/Vol]31.1 g/dL 30.5-36.0[facility] Hospital ToledoV Auto (RBC) [Entitic vol]on 74-78-6228OHS (RBC) [Entitic vol]94.7 fL80.0-100.0[facility]ville HospitalNo Panel Informationon 52-42-9598Mrteirnss ClinicC-Reactive Protein, Quantitative0.4 mg/dL<0.9Barn[facility]ville HospitalEstimated GFR (CKD-EPI)73 mL/min/1.73m???>=60Barn[facility]ville HospitalComment on above:Estimated Glomerular Filtration Rate (eGFR) is calculated using the 2020 CKD-EPI creatinine equation. This equation utilizes serum creatinine, sex, and age as parameters. The creatinine assay has traceable calibration to isotope dilution-mass spectrometry. Refer to KDIGO guidelines for clinical inte rpretation. In patients with unstable renal function, e.g. those with acute kidney injury, the eGFRmay not accurately reflect actual GFR.Parathyroid Hormone (Intact)135 pg/qH21-07GmrtrnzttBarnesville HospitalNucleated RBC Auto (Bld) [#/Vol]on 84-80-8235Uxqvpmlze RBC (Bld) [#/Vol]10*3/uL<0.01Barnesville HospitalPTH INTACTon 52-00-6317Uynavlsszy.intact [Mass/Vol]135 pg/jUUjxb64 - 65 pg/mLCleveland ClinicPTH-Intact SerPl-mCncon 10-31-6108Dfiypzozaq.intact [Mass/Vol]135 pg/uJRvtg75-88Wosiunvy HospitalComment on above:Order Comment: Specimen Type: BLOOD SPECIMENOrdering Facility: [facility] Address:[address] [place] [id number] By: #### 2731-8 ####[facility] LABORATORYCLIA [id number] [address]Parathyrin.intact [Mass/Vol]on 89-36-5722Gpwshmopytpkpf and review of laboratory resultsAbnormalCleveland Aultman Orrville HospitalPlatelet mean volume Auto (Bld) [Entitic vol]on 14-88-5728Vsudassd mean volume (Bld) [Entitic vol]9.8 fL9.0-12.7FMercy Memorial HospitalPlatelets Auto (Bld) [#/Vol]on 12-88-3891Vkoqifnyg (Bld) [#/Vol]196 10*3/kX565-339XbmkoaeucBarnesville HospitalProtein [Mass/volume] in Serum or Plasmaon 86-96-3478Dcwfcjr [Mass/Vol]6.8 g/dL6.3-8.0Barnesville HospitalRBC Auto (Bld) [#/Vol] on 03-51-3568YTK (Bld) [#/Vol]4.72 10*6/uL4.20-6.00[facility] Townshiperum or plasma anion gap determinationon 51-27-1105Ihqta gap [Moles/Vol] 13 mmol/L8-15[facility] Townshiperum or plasma calcidiol measurement (mass/volume)on 23-65-555154694196-xbydhhpctfefcp D3 [Mass/Vol]19.7 ng/mL 31.0-80.0Barnesville HospitalComment on above:Classification of 25 [place] Vitamin D status: Deficiency/Insufficiency: < or = 30 ng/ml.Sufficiency/O ptimal Levels: 31-80 ng/mLToxicity: > 100 ng/mL. Test performed by chemiluminescent immunoassay.THYROID STIMULATING HORMONEon 21-34-4021MVM Qn0.957 m[IU]/LCleveland ClinicTS Qnon 47-02-2651Rtlndakwukfkfi and review of laboratory resultsNormalCFirelands Regional Medical Center SerPl-aCncon 30-69-7390NDP Qn0.957 m[IU]/LNormal0.270-4.200FaBenjamin Stickney Cable Memorial HospitalComment on above: Order Comment: Specimen Type: BLOOD SPECIMEN Ordering Facility[facility] Address: [address] [place], [place] [address]Performed By: #### 3016-3, 22446-3, 1987-08 #### [facility] CLIA [id number] [place] [address] [place] OF AMERICAVITAMIN D 25 HYDROXYon - hydroxyvitamin D3 [Mass/Vol]19.7 ng/mLLow31.0 - 80.0 ng/mLCLouis Stokes [facility] Comment on above:Classification of 25 [place] Vitamin D status: Deficiency/Insufficiency: < or = 30 ng/ml. Sufficiency/Optimal Levels: 31-80 ng/mL Toxicity: > 100 ng/mL. Test performed by chemiluminescent immunoassay. XR HIP 3V PELV+ AP/LAT LTon 92-52-6656MW HIP 3V PELV+ AP/LAT LT* * *Final Report* * * DATE OF [...] This is not available at this time. Car Deliverer: REX Transcribe Date/Time: Oct 03 2023 3:33P Dictated by : TRENTON COX MD This examination was interpreted and the report reviewed and electronically signed by: TRENTON COX MD on Oct 03 2023 3:36PM EST [id number] General HospitalAlanine aminotransferase [Enzymatic activity/volume] in Serum or PlasmaOrdered By: Safia Enrique on 54-68-7346XPN [Catalytic activity/Vol]18 U/L7-52Barnesville HospitalAlbumin [Mass/volume] in Serum or Plasma by Bromocresol green (BCG) dye binding metho Ordered By: Safia Enrique on 76-22-8404Eganvvf BCG dye [Mass/Vol]3.8 g/dL 3.5-5.7FMercy Memorial HospitalAlkaline phosphatase [Enzymatic activity/volume] in Serum or PlasmaOrdered By: Safia Enrique on 38-10-4455QFB [Catalytic activity/Vol]72 U/B04-740LeomhtdjyBarnesville HospitalAspartate aminotransferase [Enzymatic activity/volume] in Serum or PlasmaOrdered By: Safia Enrique on 12-80-3247TXC [Catalytic activity/Vol]18 U/U45-82TljexrqrxBarnesville HospitalBasophils Auto (Bld) [#/Vol]Ordered By: Safia Enrique on 67-41-1618Cknwsecfs (Bld) [#/Vol]0.1 10*3/uL0.0-0.2FMercy Memorial HospitalBasophils/100 WBC Auto (Bld)Ordered By: Safia Enrique on 2023 Basophils/100 WBC (Bld)0.8 %.Barnesville HospitalBilirubin.total [Mass/volume] in Serum or PlasmaOrdered By: Safia Enrique on 2023 Bilirubin [Mass/Vol]0.4 mg/dL0.3-1.0Barn[facility]ville HospitalCalcium [Mass/volume] in Serum or PlasmaOrdered By: Safia Enrique on 68-26-9698Zoyuijm [Mass/Vol]9.1 mg/dL8.6-10.3FMercy Memorial HospitalCarbon dioxide, total [Moles/volume] in Serum or PlasmaOrdered By: Safia Enrique on 2023 CO2 [Moles/Vol]28.2 mmol/L21.0-31.0Barnesville HospitalChloride [Moles/volume] in Serum or PlasmaOrdered By: Safia Enrique on 2023 Chloride [Moles/Vol]106 mmol/U74-163YfifygsfjBarnesville HospitalCreatinine [Mass/volume] in Serum or PlasmaOrdered By: Safia Enrique on 2023 Creatinine [Mass/Vol]1.37 mg/dL0.70-1.30[facility] Eosinophils Auto (Bld) [#/Vol]Ordered By: Safia Enrique on 2023 Eosinophils (Bld) [#/Vol]0.5 10*3/uL0.0-0.45[facility] Eosinophils/100 WBC Auto (Bld)Ordered By: Safia Enrique on 2023 Eosinophils/100 WBC (Bld)6.8 %.Barnesville HospitalErythrocyte distribution width Auto (RBC) [Ratio]Ordered By: Safia Enrique on 2023 Erythrocyte distribution width (RBC) [Ratio]14.3 %12.0-14.8Barnesville HospitalErythrocyte sedimentation rate by Photometric methodOrdered By: Safia Enrique on 77-35-8875HDF Photometric method (Bld) [Velocity]39 mm/hr0-19 Barnesville HospitalGlobulin Calc (S) [Mass/Vol]Ordered By: Safia Enrique on 06-32-3400Emlaidje (S) [Mass/Vol]2.8 g/dLBarnesville HospitalGlucose [Mass/volume] in Serum or PlasmaOrdered By: Safia Enrique on 46-26-6427Ghnstet [Mass/Vol]112 mg/vP47-747ZvbdxtegbBarnesville Hospital Comment on above:ADA recommended reference rangeRandom Glucose Reference Range is dependent on time and content of last meal. Glucose of more than 200 mg/dL in a nonstressed, ambulatory subject supports the diagnosisof Diabetes Mellitus. Hematocrit Auto (Bld) [Volume fraction]Ordered By: Safia Enrique on 2023 Hematocrit (Bld) [Volume fraction]42.0 %38.8-50.0Barnesville HospitalHemoglobin [Mass/volume] in BloodOrdered By: Safia Enrique on 2023 Hemoglobin (Bld) [Mass/Vol]13.8 g/dL13.0-17.0[facility] Leukocytes [#/volume] corrected for nucleated erythrocytes in Blood by Automated counOrdered By: Safia Enrique on 07-21-8121QGE corrected for nucl RBC Auto (Bld) [#/Vol]6.7 10*3/uL4.1-10.5FMercy Memorial HospitalLymphocytes Auto (Bld) [#/Vol]Ordered By: Safia Enrique on 09-61-1032Mtjhgsgvlnk (Bld) [#/Vol]1.5 10*3/uL1.00-4.8Barnesville HospitalLymphocytes/100 WBC Auto (Bld)Ordered By: Safia Enrique on 43-92-4548Zjqjmnlzckd/100 WBC (Bld)21.9 %.[facility] ToledoH Auto (RBC) [Entitic mass]Ordered By: Safia Enrique on 92-26-2527NUG (RBC) [Entitic mass]30.5 pg27.5-35.2FMercy Memorial HospitalMCHC Auto (RBC) [Mass/Vol]Ordered By: Safia Enrique on 36-85-7752ZQLT (RBC) [Mass/Vol]32.9 g/dL32.5-35.6FMercy Memorial HospitalMCV Auto (RBC) [Entitic vol]Ordered By: Safia Enrique on 13-93-0499FIZ (RBC) [Entitic vol]92.7 fL83.5-101Barnesville HospitalMonocytes Auto (Bld) [#/Vol]Ordered By: Safia Enrique on 27-68-9064Rfmusiseo (Bld) [#/Vol]0.9 10*3/uL0.0-0.8Barnesville HospitalMonocytes/100 WBC Auto (Bld)Ordered By: Safia Enrique on 43-17-7343Jquyckjba/100 WBC (Bld)13.3 %. Barnesville HospitalNeutrophils Auto (Bld) [#/Vol]Ordered By: Safia Enrique on 04-63-8244Npjetkgwfgq (Bld) [#/Vol]3.8 10*3/uL1.8-7.7FMercy Memorial HospitalNeutrophils/100 WBC Auto (Bld)Ordered By: Safia Enrique on 89-47-6531Glghnkeglrc/100 WBC (Bld)57.2 %.Barnesville HospitalNo Panel InformationOrdered By: Safia Enrique on 99-94-9897Dxfyxmzvx GFR (CKD-EPI)58.325 mL/MinBarnesville HospitalPharmacy Creatinine Clearance (ChemN/AFMercy Memorial HospitalNucleated erythrocytes [Presence] in Blood by Automated countOrdered By: Safia Enrique on 2023 Nucleated RBC Auto Ql (Bld)0.1 /100{WBC}0-0.5FMercy Memorial Hospital Platelet mean volume Auto (Bld) [Entitic vol]Ordered By: Safia Enrique on 14-62-5729Tytvazxj mean volume (Bld) [Entitic vol]8.8 fL6.6-10.1FMercy Memorial HospitalPlatelets Auto (Bld) [#/Vol]Ordered By: Safia Enrique on 54-72-3673Hapasahmy (Bld) [#/Vol]224 10*3/aN828-858MipumevzcBarnesville HospitalPotassium [Moles/volume] in Serum or PlasmaOrdered By: Safia Enrique on 91-76-9152Nzspvveya [Moles/Vol]4.8 mmol/L3.5-5.1FMercy Memorial HospitalProtein [Mass/volume] in Serum or PlasmaOrdered By: Safia Enrique on 53-20-9864Aekjgna [Mass/Vol]6.6 g/dL6.4-8.9Barnesville HospitalRBC Auto (Bld) [#/Vol]Ordered By: Safia Enrique on 15-44-2606XKP (Bld) [#/Vol]4.53 10*6/uL3.90-5.60[facility] Washington Townshiperum or plasma albumin/globulin mass ratioOrdered By: Safia Enrique on 2023 Albumin/Globulin [Mass ratio]1.4 {ratio}[facility] Townshiperum or plasma anion gap determinationOrdered By: Safia Enrique on 16-49-6482Rvtvm gap [Moles/Vol]12.6 mmol/L6.0-15.0[facility] Washington Townshipodium [Moles/volume] in Serum or PlasmaOrdered By: Safia Enrique on 14-03-5148Ubesik [Moles/Vol]142 mmol/O770-173QmjlufrciBarnesville HospitalUrea nitrogen [Mass/volume] in Serum or PlasmaOrdered By: Safia Enrique on 31-83-6351Yxtg nitrogen [Mass/Vol]20 mg/dL7-25Barnesville HospitalWBC Auto (Bld) [#/Vol]Ordered By: Safia Enrique on 18-14-9851GAB (Bld) [#/Vol]6.7 10*3/uL 4.1-10.5FMercy Memorial HospitalLab Reportson 88-00-1559Keq Reports [id number]#1.00TIFFNoDoctors HospitalNo Panel Informationon 74-99-1577Sgtcgfrv Specific Antigen Total1.08 ng/mL <=4.00Barnesville HospitalAlanine aminotransferase [Enzymatic activity/volume] in Serum or PlasmaOrdered By: Brad Hodges on 47-56-1558VMQ [Catalytic activity/Vol]18 U/L7-52Barnesville HospitalAlbumin [Mass/volume] in Serum or Plasma by Bromocresol green (BCG) dye binding metho Ordered By: Brad Hodges on 81-92-6357Vwmanji BCG dye [Mass/Vol]3.6 g/dL 3.5-5.7FMercy Memorial HospitalAlkaline phosphatase [Enzymatic activity/volume] in Serum or PlasmaOrdered By: Brad Hodges on 05-91-7316POK [Catalytic activity/Vol]66 U/Q01-050MahtumplgBarnesville HospitalAspartate aminotransferase [Enzymatic activity/volume] in Serum or PlasmaOrdered By: Brad Hodges on 58-95-5165XHY [Catalytic activity/Vol]16 U/N30-57QiwnbwjmtBarnesville HospitalBasophils Auto (Bld) [#/Vol]Ordered By: Brad Hodges on 60-75-0357Opnuabllk (Bld) [#/Vol]0.0 10*3/uL0.0-0.2FMercy Memorial HospitalBasophils/100 WBC Auto (Bld)Ordered By: Brad Hodges on 05-03-2023 Basophils/100 WBC (Bld)0.9 %.Barn[facility]ville HospitalBilirubin.total [Mass/volume] in Serum or PlasmaOrdered By: Brad Hodges on 05-03-2023 Bilirubin [Mass/Vol]0.4 mg/dL0.3-1.0Barn[facility]ville HospitalCalcium [Mass/volume] in Serum or PlasmaOrdered By: Brad Hodges on 82-19-2755Rgfdntg [Mass/Vol]9.1 mg/dL8.6-10.3FMercy Memorial HospitalCarbon dioxide, total [Moles/volume] in Serum or PlasmaOrdered By: Brad Hodges on 05-03-2023 CO2 [Moles/Vol]29.5 mmol/L21.0-31.0Barn[facility] HospitalChloride [Moles/volume] in Serum or PlasmaOrdered By: Brad Hodges on 05-03-2023 Chloride [Moles/Vol]107 mmol/O79-586CveigkcdkBarnesville HospitalCreatinine [Mass/volume] in Serum or PlasmaOrdered By: Brad Hodges on 05-03-2023 Creatinine [Mass/Vol]1.33 mg/dL0.70-1.30[facility] Eosinophils Auto (Bld) [#/Vol]Ordered By: Brad Hodges on 05-03-2023 Eosinophils (Bld) [#/Vol]0.3 10*3/uL0.0-0.45[facility] Eosinophils/100 WBC Auto (Bld)Ordered By: Brad Hodges on 05-03-2023 Eosinophils/100 WBC (Bld)6.6 %.Barnesville HospitalErythrocyte distribution width Auto (RBC) [Ratio]Ordered By: Brad Hodges on 05-03-2023 Erythrocyte distribution width (RBC) [Ratio]15.9 %12.0-14.8Barn[facility]ville HospitalErythrocyte sedimentation rate by Photometric methodOrdered By: Brad Hodges on 76-06-6072BOM Photometric method (Bld) [Velocity]35 mm/hr0-19 [facility]ville HospitalGlobulin Calc (S) [Mass/Vol]Ordered By: Brad Hodges on 60-47-3576Hjezfpge (S) [Mass/Vol]2.6 g/dLBarnesville HospitalGlucose [Mass/volume] in Serum or PlasmaOrdered By: Brad Hodges on 51-85-2440Bxghzrl [Mass/Vol]122 mg/iT80-690EhaylgopdBarnesville Hospital Comment on above:ADA recommended reference rangeRandom Glucose Reference Range is dependent on time and content of last meal. Glucose of more than 200 mg/dL in a nonstressed, ambulatory subject supports the diagnosisof Diabetes Mellitus. Hematocrit Auto (Bld) [Volume fraction]Ordered By: Brad Hodges on 05-03-2023 Hematocrit (Bld) [Volume fraction]38.5 %38.8-50.0Barn[facility]ville HospitalHemoglobin [Mass/volume] in BloodOrdered By: Brad Hodges on 05-03-2023 Hemoglobin (Bld) [Mass/Vol]12.3 g/dL13.0-17.0[facility] Leukocytes [#/volume] corrected for nucleated erythrocytes in Blood by Automated counOrdered By: Brad Hodges on 28-20-3417HLC corrected for nucl RBC Auto (Bld) [#/Vol]4.8 10*3/uL4.1-10.5FMercy Memorial HospitalLymphocytes Auto (Bld) [#/Vol]Ordered By: Brad Hodges on 13-95-9853Iyrcdlpglbc (Bld) [#/Vol]1.2 10*3/uL1.00-4.8Barn[facility]ville HospitalLymphocytes/100 WBC Auto (Bld)Ordered By: Brad Hodges on 11-45-0510Drqvoalkvhj/100 WBC (Bld)25.4 %.[facility]ville HospitalMCH Auto (RBC) [Entitic mass]Ordered By: Brad Hodges on 80-02-5853YQE (RBC) [Entitic mass]29.5 pg27.5-35.2FMercy Memorial HospitalMCHC Auto (RBC) [Mass/Vol]Ordered By: Brad Hodges on 45-43-2568YHZX (RBC) [Mass/Vol]32.0 g/dL32.5-35.6FMercy Memorial HospitalMCV Auto (RBC) [Entitic vol]Ordered By: Brad Hodges on 52-11-7689JVJ (RBC) [Entitic vol]92.1 fL83.5-101Barn[facility]ville HospitalMonocytes Auto (Bld) [#/Vol]Ordered By: Brad Hodges on 70-62-8657Jtarmievi (Bld) [#/Vol]0.2 10*3/uL0.0-0.8Barn[facility]ville HospitalMonocytes/100 WBC Auto (Bld)Ordered By: Brad Hodges on 97-30-1211Dilvwgrhz/100 WBC (Bld)4.3 %. [facility]ville HospitalNeutrophils Auto (Bld) [#/Vol]Ordered By: Brad Hodges on 74-66-4854Czhqozndspq (Bld) [#/Vol]3.0 10*3/uL1.8-7.7FMercy Memorial HospitalNeutrophils/100 WBC Auto (Bld)Ordered By: Brad Hodges on 45-10-6879Nmrjehzdtcr/100 WBC (Bld)62.8 %.[facility] No Panel InformationOrdered By: Brad Hodges on 24-34-4523Lpbomkjcs GFR (CKD-EPI)> 60.0 mL/MinBarnesville HospitalPharmacy Creatinine Clearance (ChemN/[facility] HospitalNucleated erythrocytes [Presence] in Blood by Automated countOrdered By: Brad Hodges on 05-03-2023 Nucleated RBC Auto Ql (Bld)0.1 /100{WBC}0-0.5[facility] Platelet mean volume Auto (Bld) [Entitic vol]Ordered By: Brad Hodges on 01-45-6494Ekwviadc mean volume (Bld) [Entitic vol]8.2 fL6.6-10.1FMercy Memorial HospitalPlatelets Auto (Bld) [#/Vol]Ordered By: Brad Hodges on 27-71-1918Edcjlfmww (Bld) [#/Vol]249 10*3/aF652-511TwjnkovwjBarnesville HospitalPotassium [Moles/volume] in Serum or PlasmaOrdered By: Brad Hodges on 35-17-2002Gfhodgchq [Moles/Vol]4.6 mmol/L3.5-5.1FMercy Memorial HospitalProtein [Mass/volume] in Serum or PlasmaOrdered By: Brad Hodges on 37-63-3140Kguzuly [Mass/Vol]6.2 g/dL6.4-8.9Barn[facility]ville HospitalRBC Auto (Bld) [#/Vol]Ordered By: Brad Hodges on 57-40-4887NDE (Bld) [#/Vol]4.17 10*6/uL3.90-5.60[facility] Washington Townshiperum or plasma albumin/globulin mass ratioOrdered By: Brad Hodges on 05-03-2023 Albumin/Globulin [Mass ratio]1.4 {ratio}[facility] Townshiperum or plasma anion gap determinationOrdered By: Brad Hodges on 98-60-1549Fqqku gap [Moles/Vol]10.1 mmol/L6.0-15.0[facility] Washington Townshipodium [Moles/volume] in Serum or PlasmaOrdered By: Brad Hodges on 66-39-1873Pexajz [Moles/Vol]142 mmol/C387-114QjcpvrtueBarnesville HospitalUrea nitrogen [Mass/volume] in Serum or PlasmaOrdered By: Brad Hodges on 85-52-2489Dtcj nitrogen [Mass/Vol]22 mg/dL7-25Barnesville HospitalWBC Auto (Bld) [#/Vol]Ordered By: Brad Hodges on 31-81-8386TBK (Bld) [#/Vol]4.8 10*3/uL 4.1-10.5FMercy Memorial HospitalAnaerobic cultureOrdered By: Silvana Lundberg on 06-35-7717Rsjhdroc identified Anaer cx Nom (Unsp spec)No Anaerobes Isolated 3 DaysBarnesville HospitalBacteria identified Aer cx Nom (Unsp spec)Ordered By: Silvana Lundberg on 85-33-8642Eckpxhm CultureStaphylococcus aureusBarnesville HospitalGram stain for investigation of transfusion reactionOrdered By: Silvana Lundberg on 55-88-6215Amqcmjqvhnz observation Gram stain Nom (Unsp spec)[facility] EMG(NEURO/NI)on 78-87-7298Xhflaodzw [facility] CenterCB panel Auto (Bld)on 10-06-2022 Erythrocyte distribution width (RBC) [Ratio]16.0 %High11.5 - 15.0 %[facility] CenterHematocrit (Bld) [Volume fraction]40.1 %39.0 - 51.0 %[facility] Hemoglobin (Bld) [Mass/Vol]12.3 g/dLLow13.0 - 17.0 g/dLSelect Medical Cleveland Clinic Rehabilitation Hospital, BeachwoodH (RBC) [Entitic mass]31.6 pg26.0 - 34.0 pgClevelRed Wing Hospital and ClinicHC (RBC) [Mass/Vol]30.7 g/dL30.5 - 36.0 g/dLSelect Medical Cleveland Clinic Rehabilitation Hospital, BeachwoodV (RBC) [Entitic vol]103.1 bOLktw05.0 - 100.0 fLCLouis Stokes Cleveland VA Medical CenterNucleated RBC (Bld) [#/Vol]<0.01 k/uLSalem Regional Medical Center Platelet mean volume (Bld) [Entitic vol]10.2 fL9.0 - 12.7 fLCLouis Stokes [facility] Center Platelets (Bld) [#/Vol]286 10*3/uL150 - 400 k/uLSalem Regional Medical CenterRBC (Bld) [#/Vol]3.89 10*6/uLLow4.20 - 6.00 m/uLSalem Regional Medical CenterWBC (Bld) [#/Vol]7.15 10*3/uL3.70 - 11.00 k/uLSalem Regional Medical CenterCERULOPLASMIN BLDon 10-06-2022 Ceruloplasmin [Mass/Vol]30 mg/dL15 - 30 mg/dLSalem Regional Medical CenterComprehensive metabolic 2000 panelon 61-49-0972Peciznu [Mass/Vol]3.6 g/dLLow3.9 - 4.9 g/dL [facility] ClinicALP [Catalytic activity/Vol]72 U/L38 - 113 U/LCleveland [facility] ALT [Catalytic activity/Vol]17 U/L10 - 54 U/LCleveland ClinicAnion gap [Moles/Vol]9 mmol/L9 - 18 mmol/LCleveland ClinicAST [Catalytic activity/Vol]21 U/L14 - 40 U/LCleveland [facility] CenterBilirubin [Mass/Vol]0.2 mg/dL0.2 - 1.3 mg/dL [facility] CenterCalcium [Mass/Vol]9.5 mg/dL8.5 - 10.2 mg/dLSalem Regional Medical Center Chloride [Moles/Vol]108 mmol/LHigh97 - 105 mmol/LCleveland ClinicCO2 [Moles/Vol] 25 mmol/L22 - 30 mmol/LCleveland [facility] CenterCreatinine [Mass/Vol]1.43 mg/dLHigh0.73 - 1.22 mg/dLSalem Regional Medical CenterEstimated Glomerular Filtration Rate55 mL/min/1.73m Low>=60 mL/min/1.73mCleveland Olmsted Medical CenterGlucose [Mass/Vol]100 mg/zTSupv53 - 99 mg/dL [facility] CenterPotassium [Moles/Vol]5.4 mmol/LHigh3.7 - 5.1 mmol/LCleveland ClinicProtein [Mass/Vol]6.7 g/dL6.3 - 8.0 g/dLUniversity Hospitals Portage Medical Centerodium [Moles/Vol] 142 mmol/L136 - 144 mmol/LCleveland [facility] CenterUrea nitrogen [Mass/Vol]24 mg/dL9 - 24 mg/dLSalem Regional Medical CenterFERRITIN [facility] 00-22-3923Oyclbleo [Mass/Vol]143.0 ng/mL 30.3 - 565.7 ng/mLCleveland Olmsted Medical CenterFOLATE SERUMon 51-44-7472Kinfnf [Mass/Vol]8.8 ng/mL>4.7 ng/mLCleveland ClinicHOMOCYSTEINEon 51-63-1516Uihebnfskuxi [Moles/Vol] 14.7 umol/L<15.1 umol/LCleveland [facility] Medical CenterTSH BLDon 80-26-7828FEC Qn2.100 m[IU]/L 0.270 - 4.200 mIU/LCleveland ClinicVITAMIN B12 BLOODon 35-55-9890Espeeyqda (Vitamin B12) [Mass/Vol]355 pg/mL232 - 1,245 pg/mLCleveland Olmsted Medical CenterNM LUNG VENT / PERF VQon 52-61-1265Ifydyyhmf ClinicECHOon 89-17-6063Euckmbeuy ClinicLVEF ECHO on 37-03-7110XP Ejection Xevyecte06 %Abnormal<52 %[facility] AUTO DIFF on 91-59-9257QHGZ #0.1 103/ulNormal0.0-0.1The [facility] Doctors HospitalComment on above: Performed By: #### CMADM, BNP, BMP #### [facility] [address] [place] [address] Dr. Risa PattersonBasophils/100 WBC (Bld)1.1 %Normal0.2-2.0[facility] Comment on above:Performed By: #### CMADM, BNP, BMP #### [facility] [address] [address] [address] Risa Hill #0.3 103/ulNormal0.0-0.7The [facility] Doctors HospitalComment on above: Performed By: #### CMADM, BNP, BMP #### [facility] [address] [address] [address] Risa Moreonosinophils/100 WBC (Bld)5.9 %Normal0.9-7.0[facility] Comment on above:Performed By: #### CMADM, BNP, BMP #### [facility] [address] [address] [address] Risa Morenorythrocyte distribution width (RBC) [Ratio]15.1 %Critically high 11.0-15.0The [facility] Doctors HospitalComment on above:Performed By: #### CMADM, BNP, BMP #### [facility] [address] [place] [address] Dr. Risa PattersonHematocrit (Bld) [Volume fraction]36.6 %Critically low42.0-54.0 The [facility] HospitalComment on above:Performed By: #### CMADM, BNP, BMP #### [facility] [address] [address] [address] Risa PattersonHemoglobin (Bld) [Mass/Vol]11.4 g/dLCritically low14.0-18.0The [facility] HospitalComment on above:Performed By: #### CMADM, BNP, BMP #### [facility] [address] [place] [address] Dr. Risa Mckenzie #0.02 10e3/ulNormal0.00-0.03The [facility] Doctors HospitalComment on above:Performed By: #### CMADM, BNP, BMP #### [facility] [address] [place] [address] Dr. Risa Mckenzie %0.4 %Normal0.0-0.5The [facility] HospitalComment on above: Performed By: #### CMADM, BNP, BMP #### [facility] [address] [place] [address] Dr. Risa Luu #0.9 103/ulCritically low1.2-3.8The [facility] Comment on above:Performed By: #### CMADM, BNP, BMP #### [facility] [address] [place] [address] Dr. Risa Amaralhocytes/100 WBC (Bld)20.4 %Critically low20.5-60.0The [facility] HospitalComment on above:Performed By: #### CMADM, BNP, BMP #### [facility] [address] [place] [address] Dr. Risa YbarraUAL DIFF REQNONormalThe [facility] Doctors HospitalComment on above: Performed By: #### CMADM, BNP, BMP #### [facility] [address] [place] [address] Dr. Risa Perez (RBC) [Entitic mass]31.1 ufLdhxyf03.9-34.0The [facility] HospitalComment on above:Performed By: #### CMADM, BNP, BMP #### [facility] [address] [place] [address] Dr. Risa Mann (RBC) [Mass/Vol]31.1 g/tCQdihol05.9-35.2The [facility] HospitalComment on above:Performed By: #### CMADM, BNP, BMP #### [facility] [address] [place] [address] Dr. Risa Mann (RBC) [Entitic vol]100.0 fLCritically high80.0-94.0The [facility] HospitalComment on above:Performed By: #### CMADM, BNP, BMP #### [facility] [address] [place] [address] Dr. Risa Mcarthur #0.3 103/ulNormal0.3-0.8The [facility] HospitalComment on above:Performed By: #### CMADM, BNP, BMP #### [facility] [address] [place] [address] Dr. Risa Sowocytes/100 WBC (Bld)6.6 %Normal1.7-12.0The [facility] Comment on above:Performed By: #### CMADM, BNP, BMP #### [facility] [address] [place] [address] Dr. Risa Ryan #3.0 103/ulNormal1.4-6.5The [facility] HospitalComment on above:Performed By: #### CMADM, BNP, BMP #### [facility] [address] [place] [address] Dr. Risa Dickinsonophils/100 WBC (Bld)65.6 %Djheks91.0-75.0The [facility] HospitalComment on above:Performed By: #### CMADM, BNP, BMP #### [facility] [address] [place] [address] Dr. Risa Garcia mean volume (Bld) [Entitic vol]9.1 fLCritically low 9.5-13.5The [facility] HospitalComment on above:Performed By: #### CMADM, BNP, BMP #### [facility] [address] [address] [address] Risa PattersonPLT286 103/[id number] [facility] HospitalComment on above: Performed By: #### CMADM, BNP, BMP #### [facility] [address] [place] [address] Dr. Risa PattersonRBC3.66 106/ulCritically low4.70-6.10The [facility] HospitalComment on above:Performed By: #### CMADM, BNP, BMP #### [facility] [address] [place] [address] Dr. Risa PattersonWBC4.6 103/ulNormal4.0-11.0The [facility] HospitalComment on above: Performed By: #### CMADM, BNP, BMP #### [facility] [address] [place] [address] Dr. Risa MonzonF 14(COMP METB)on 28-57-8065Zxolvae [Mass/Vol]2.9 g/dL Critically low3.4-5.0The [facility] Doctors HospitalComment on above:Performed By: #### CMP #### [facility] [address] [place] [address] Dr. Risa PattersonAlbumin/Globulin [Mass ratio]0.7 {ratio}NormalThe Doctors Hospitalment on above:Performed By: #### CMP #### [facility] [address] [place] [address] Dr. Risa Arteaga [Catalytic activity/Vol]66 U/UNqzqmf86-720Uaf Doctors Hospitalment on above:Performed By: #### CMP #### [facility] [address] [place] [address] Dr. Risa Jenkins [Catalytic activity/Vol]31 U/OBgptst95-85Wep [facility] HospitalComment on above:Performed By: #### CMP #### [facility] [address] [place] [address] Dr. Risa Tolentino gap [Moles/Vol]15.6 mmol/LNormalThe [facility] Comment on above:Performed By: #### CMP #### [facility] [address] [address] [address] Risa PattersonAST [Catalytic activity/Vol]35 U/MItgzmf60-92Eub [facility] HospitalComment on above:Performed By: #### CMP #### [facility] [address] [address] [address] Risa PattersonBilirubin [Mass/Vol]0.4 mg/dLNormal0.2-1.0The [facility] Comment on above:Performed By: #### CMP #### [facility] [address] [address] [address] Risa PattersonCalcium [Mass/Vol]8.9 mg/dLNormal8.5-10.1The [facility] Comment on above:Performed By: #### CMP #### [facility] [address] [address] [address] Risa PattersonChloride [Moles/Vol]105 mmol/VZcnloa71-827Sqz [facility] Comment on above:Performed By: #### CMP #### [facility] [address] [address] [address] Risa PattersonCO2 [Moles/Vol]24.5 mmol/PWwruut78.0-32.0The [facility] Comment on above:Performed By: #### CMP #### [facility] [address] [address] [address] Risa PattersonCreatinine [Mass/Vol]1.35 mg/dLCritically high0.70-1.30The [facility] HospitalComment on above:Performed By: #### CMP #### [facility] [address] [place] [address] Dr. Lord ChangEGFR-AF BANGLADESHI>60Normal>=60The [facility] HospitalComment on above:Performed By: #### CMP #### [facility] [address] [address] [address] Risa MorenoGFR-NON AF XAEIJKWS29 mL/min/1.41m1Rxfbsnnudh low>=60The [facility] HospitalComment on above:Performed By: #### CMP #### [facility] [address] [address] [address] Risa PattersonGlobulin (S) [Mass/Vol]4.3 g/dLNormLima Memorial HospitalComment on above:Performed By: #### CMP #### [facility] [address] [address] [address] Risa PattersonGlucose [Mass/Vol]107 mg/dLCritically rqxz50-457Dpe [facility] HospitalComment on above:Performed By: #### CMP #### [facility] [address] [address] [address] Risa PattersonPotassium [Moles/Vol]4.1 mmol/LNormal3.5-5.1The [facility] Comment on above:Performed By: #### CMP #### [facility] [address] [address] [address] Risa PattersonProtein [Mass/Vol]7.2 g/dLNormal6.4-8.2The [facility] Comment on above:Performed By: #### CMP #### [facility] [address] [address] [address] Risa PattersonSodium [Moles/Vol]141 mmol/RTrzuez887-891Mxb [facility] Comment on above:Performed By: #### CMP #### [facility] [address] [address] [address] Risa PattersonUrea nitrogen [Mass/Vol]19.0 mg/dLCritically high7.0-18.0The [facility] HospitalComment on above:Performed By: #### CMP #### [facility] [address] [address] [address] Risa Carrillo nitrogen/Creatinine [Mass ratio]14.1 mg/mgNoCleveland Clinic Fairview HospitalComment on above:Performed By: #### CMP #### [facility] [address] [address] [address] Risa PattersonSED RATE WESTERGRENon 54-09-0868NIP RATE57 mm/hrCritically high <=20The [facility] HospitalComment on above:Performed By: #### SEDR #### [facility] [address] [place], [place] [address] Dr. Risa SmithG COMPLETEon 60-04-9980Fdobhl Rate83 BPMSalem Regional Medical Center Calculated P Axis27 degreesSalem Regional Medical CenterCalculated R Axis14 degreesSalem Regional Medical CenterCalculated T Axis38 degreesSalem Regional Medical CenterP-R Bsojwalh978 msCleveland ClinicQRS Dvmaexxr34 msCleveland ClinicQT Ozdutowe879 msCleveland ClinicQTC Calculation (Silvinozett)411 msCleveland ClinicVentricular Rate83 BPMSalem Regional Medical Center TILT TABLE TESTon 25-50-4071JHQC [address] [id number] TILT TABLE TEST PATIENT NAME: ELENA FELIX : 1960 MED REC NO: [id number] ROOM: ACCOUNT NO: [id number] ADMIT DATE: 07/31/2022 PROVIDER: Santos Barrios MD Cardiovascular Diagnostics Department DATE OF PROCEDURE: 07/31/2022 ORDERING PROVIDER: Carlos Krishna [facility] PROVIDER: Silvana Lundberg MD INTERPRETING [...] up with their primary care physician and/or test puller as previously scheduled. STUDY CONCLUSIONS: Abnormal head [...] treatment of this condition. SANTOS BARRIOS MD BRANDON/SONI_LENINIT Doc#: Unknown CC: Silvana Joel [facility] AUTO DIFFon 28-87-7685XWPA #0.1 103/ulNormal0.0-0.1[facility] CenterComment on above:Performed By: #### CMADM, BNP, BMP #### [facility] [address] [place] [address] Dr. Risa PattersonBasophils/100 WBC (Bld)0.8 %Normal0.2-2.0[facility] Comment on above:Performed By: #### CMADM, BNP, BMP #### [facility] [address] [place] [address] Dr. Risa Hill #0.3 103/ulNormal0.0-0.7The [facility] HospitalComment on above: Performed By: #### CMADM, BNP, BMP #### [facility] [address] [place] [address] Dr. Risa Morenoosinophils/100 WBC (Bld)4.0 %Normal0.9-7.0[facility] Comment on above:Performed By: #### CMADM, BNP, BMP #### [facility] [address] [place] [address] Dr. Risa Morenorythrocyte distribution width (RBC) [Ratio]15.8 %Critically high 11.0-15.0The [facility] HospitalComment on above:Performed By: #### CMADM, BNP, BMP #### [facility] [address] [place] [address] Dr. Risa PattersonHematocrit (Bld) [Volume fraction]37.3 %Critically low42.0-54.0 The [facility] HospitalComment on above:Performed By: #### CMADM, BNP, BMP #### [facility] [address] [place] [address] Dr. Risa PattersonHemoglobin (Bld) [Mass/Vol]11.7 g/dLCritically low14.0-18.0The [facility] HospitalComment on above:Performed By: #### CMADM, BNP, BMP #### [facility] [address] [place] [address] Dr. Risa Mckenzie #0.04 10e3/ulCritically high0.00-0.03The [facility] Comment on above:Performed By: #### CMADM, BNP, BMP #### [facility] [address] [place] [address] Dr. Risa Mckenzie %0.5 %Normal0.0-0.5The [facility] HospitalComment on above: Performed By: #### CMADM, BNP, BMP #### [facility] [address] [place] [address] Dr. Risa Luu #1.0 103/ulCritically low1.2-3.8The [facility] Comment on above:Performed By: #### CMADM, BNP, BMP #### [facility] [address] [place] [address] Dr. Risa Amaralhocytes/100 WBC (Bld)13.1 %Critically low20.5-60.0The [facility] HospitalComment on above:Performed By: #### CMADM, BNP, BMP #### [facility] [address] [address] [address] Risa Child DIFF REQNONormalThe [facility] HospitalComment on above: Performed By: #### CMADM, BNP, BMP #### [facility] [address] [address] [address] Risa Mann (RBC) [Entitic mass]31.3 uiJxycat12.9-34.0The [facility] HospitalComment on above:Performed By: #### CMADM, BNP, BMP #### [facility] [address] [place] [address] Dr. Risa Mann (RBC) [Mass/Vol]31.4 g/iLLchijx70.9-35.2The [facility] HospitalComment on above:Performed By: #### CMADM, BNP, BMP #### [facility] [address] [place] [address] Dr. Risa Mann (RBC) [Entitic vol]99.7 fLCritically high80.0-94.0The [facility] HospitalComment on above:Performed By: #### CMADM, BNP, BMP #### [facility] [address] [address] [address] Risa Mcarthur #0.9 103/ulCritically high0.3-0.8The [facility] Comment on above:Performed By: #### CMADM, BNP, BMP #### [facility] [address] [address] [address] Risa Sowocytes/100 WBC (Bld)12.3 %Critically high1.7-12.0The [facility] HospitalComment on above:Performed By: #### CMADM, BNP, BMP #### [facility] [address] [place] [address] Dr. Risa Ryan #5.2 103/ulNormal1.4-6.5The [facility] HospitalComment on above:Performed By: #### CMADM, BNP, BMP #### [facility] [address] [address] [address] Risa Dickinsonophils/100 WBC (Bld)69.3 %Kvknsr31.0-75.0The [facility] HospitalComment on above:Performed By: #### CMADM, BNP, BMP #### [facility] [address] [place] [address] Dr. Risa PattersonPlatelet mean volume (Bld) [Entitic vol]9.3 fLCritically low 9.5-13.5The [facility] HospitalComment on above:Performed By: #### CMADM, BNP, BMP #### [facility] [address] [place] [address] Dr. Risa PattersonPLT244 103/biDtuvsf369-390Cou [facility] HospitalComment on above: Performed By: #### CMADM, BNP, BMP #### [facility] [address] [place] [address] Dr. Risa PattersonRBC3.74 106/ulCritically low4.70-6.10The [facility] HospitalComment on above:Performed By: #### CMADM, BNP, BMP #### [facility] [address] [place] [address] Dr. Risa PattersonWBC7.5 103/ulNormal4.0-11.0The [facility] HospitalComment on above: Performed By: #### CMADM, BNP, BMP #### [facility] [address] [place] [address] Dr. Risa MoreonCHOCARDIDenise M/2D COMPLETEon [id number] M/2D COMPLETE Patient: ELENA FELIX Exam Date: 07/04/2022 : 1960 Gender:M Ordering : NIKKIE TREJO Admission #: [id number] Family : DR BRAD HODGES M.D. Order #: [id number] CLICK HERE TO VIEW EXAM ECHOCARDIOGRAM REPORT [...] by: Osmany Hernandez M.D. on 07/04/2022 at 12:06[facility] Arms HospitalPROF 14(COMP METB)on 22-08-7262Zyxnuzq [Mass/Vol]2.9 g/dLCritically low 3.4-5.0The Doctors Hospitalment on above:Performed By: #### CMP #### [facility] [address] [place] [address] Dr. Risa PattersonAlbumin/Globulin [Mass ratio]0.8 {ratio}NormalThe [facility] on above:Performed By: #### CMP #### [facility] [address] [place] [address] Dr. Risa Arteaga [Catalytic activity/Vol]62 U/RSxsswh31-246Hvm [facility] on above:Performed By: #### CMP #### [facility] [address] [place] [address] Dr. Risa Jenkins [Catalytic activity/Vol]30 U/KOediil78-38Kfi [facility] on above:Performed By: #### CMP #### [facility] [address] [address] [address] Risa Tolentino gap [Moles/Vol]9.3 mmol/LNormalThe [facility] HospitalComment on above:Performed By: #### CMP #### [facility] [address] [address] [address] Risa PattersonAST [Catalytic activity/Vol]25 U/QMomspm23-61Qdc [facility] HospitalComment on above:Performed By: #### CMP #### [facility] [address] [address] [address] Risa PattersonBilirubin [Mass/Vol]0.4 mg/dLNormal0.2-1.0The [facility] Comment on above:Performed By: #### CMP #### [facility] [address] [place] [address] Dr. Risa PattersonCalcium [Mass/Vol]8.8 mg/dLNormal8.5-10.1The [facility] Comment on above:Performed By: #### CMP #### [facility] [address] [place] [address] Dr. Risa PattersonChloride [Moles/Vol]108 mmol/LCritically nsvv55-620Foa [facility] HospitalComment on above:Performed By: #### CMP #### [facility] [address] [place] [address] Dr. Risa PattersonCO2 [Moles/Vol]29.8 mmol/JNxzhnv28.0-32.0The [facility] Comment on above:Performed By: #### CMP #### [facility] [address] [place] [address] Dr. Risa PattersonCreatinine [Mass/Vol]1.26 mg/dLNormal0.70-1.30The [facility] HospitalComment on above:Performed By: #### CMP #### [facility] [address] [place] [address] Dr. Lord ChangEGFR-AF BANGLADESHI>60Normal>=60The [facility] HospitalComment on above:Performed By: #### CMP #### [facility] [address] [place] [address] Dr. Risa MorenoGFR-NON AF GTSMZFWT97 mL/min/1.54n3Zjemytzolm low>=60The [facility] HospitalComment on above:Performed By: #### CMP #### [facility] [address] [address] [address] Risa PattersonGlobulin (S) [Mass/Vol]3.6 g/dLNoCleveland Clinic Fairview HospitalComment on above:Performed By: #### CMP #### [facility] [address] [address] [address] Risa PattersonGlucose [Mass/Vol]114 mg/dLCritically olxp83-384Wxg [facility] HospitalComment on above:Performed By: #### CMP #### [facility] [address] [place] [address] Dr. Risa PattersonPotassium [Moles/Vol]4.1 mmol/LNormal3.5-5.1The [facility] Comment on above:Performed By: #### CMP #### [facility] [address] [place] [address] Dr. Risa PattersonProtein [Mass/Vol]6.5 g/dLNormal6.4-8.2The [facility] Comment on above:Performed By: #### CMP #### [facility] [address] [place] [address] Dr. Risa PattersonSodium [Moles/Vol]143 mmol/CGxdfgz403-334Ttt [facility] Comment on above:Performed By: #### CMP #### [facility] [address] [place] [address] Dr. Risa PattersonUrea nitrogen [Mass/Vol]20.0 mg/dLCritically high7.0-18.0The [facility] HospitalComment on above:Performed By: #### CMP #### [facility] [address] [place] [address] Dr. Rsia Carrillo nitrogen/Creatinine [Mass ratio]15.9 mg/mgNoCleveland Clinic Fairview HospitalComment on above:Performed By: #### CMP #### [facility] [address] [place] [address] Dr. Risa Leonard RATE WESTERGRENon 61-43-7909OKI RATE26 mm/hrCritically high <=20The [facility] HospitalComment on above:Performed By: #### CMADM, BNP, BMP #### [facility] [address] [place] [address] Dr. Risa Lynn 97-39-4501Jisqxvyskax peptide B (Bld) [Mass/Vol]82.0 pg/mL Normal<=900.0The [facility] HospitalComment on above:Performed By: #### CMREP #### [facility] [address] [place] [address] Dr. Risa CohenC AUTO DIFFon 14-03-9586JCQP #0.1 103/ulNormal0.0-0.1The [facility] HospitalComment on above:Performed By: #### CMREP #### [facility] [address] [place] [address] Dr. Risa PattersonBasophils/100 WBC (Bld)0.7 %Normal0.2-2.0The [facility] Comment on above:Performed By: #### CMREP #### [facility] [address] [place] [address] Dr. Risa Hill #0.4 103/ulNormal0.0-0.7The [facility] HospitalComment on above: Performed By: #### CMREP #### [facility] [address] [place] [address] Dr. Risa Morenoosinophils/100 WBC (Bld)3.9 %Normal0.9-7.0The [facility] Comment on above:Performed By: #### CMREP #### [facility] [address] [place] [address] Dr. Risa Morenorythrocyte distribution width (RBC) [Ratio]15.0 %Jkpmhh86.0-15.0 The [facility] HospitalComment on above:Performed By: #### CMREP #### [facility] [address] [place] [address] Dr. Risa PattersonHematocrit (Bld) [Volume fraction]39.1 %Critically low42.0-54.0 The [facility] HospitalComment on above:Performed By: #### CMREP #### [facility] [address] [place] [address] Dr. Risa PattersonHemoglobin (Bld) [Mass/Vol]12.3 g/dLCritically low14.0-18.0The [facility] HospitalComment on above:Performed By: #### CMREP #### [facility] [address] [place] [address] Dr. Risa Mckenzie #0.07 10e3/ulCritically high0.00-0.03The [facility] Comment on above:Performed By: #### CMREP #### [facility] [address] [place] [address] Dr. Risa Mckenzie %0.8 %Critically high0.0-0.5The [facility] HospitalComment on above:Performed By: #### CMREP #### [facility] [address] [place] [address] Dr. Risa Luu #1.0 103/ulCritically low1.2-3.8The [facility] Comment on above:Performed By: #### CMREP #### [facility] [address] [place] [address] Dr. Risa Amaralhocytes/100 WBC (Bld)11.3 %Critically low20.5-60.0[facility] CenterComment on above:Performed By: #### CMREP #### [facility] [address] [place] [address] Dr. Risa YbarraUAL DIFF REQNONormalThe [facility] HospitalComment on above: Performed By: #### CMREP #### [facility] [address] [place] [address] Dr. Risa Perez (RBC) [Entitic mass]30.9 wsLoiesn99.9-34.0The [facility] HospitalComment on above:Performed By: #### CMREP #### [facility] [address] [place] [address] Dr. Risa MannHC (RBC) [Mass/Vol]31.5 g/uLMavsey68.9-35.2The [facility] HospitalComment on above:Performed By: #### CMREP #### [facility] [address] [place] [address] Dr. Risa MannV (RBC) [Entitic vol]98.2 fLCritically high80.0-94.0The [facility] HospitalComment on above:Performed By: #### CMREP #### [facility] [address] [place] [address] Dr. Risa Mcarthur #1.1 103/ulCritically high0.3-0.8The [facility] Comment on above:Performed By: #### CMREP #### [facility] [address] [place] [address] Dr. Risa Sowocytes/100 WBC (Bld)12.1 %Critically high1.7-12.0The [facility] HospitalComment on above:Performed By: #### CMREP #### [facility] [address] [place] [address] Dr. Risa Ryan #6.4 103/ulNormal1.4-6.5The [facility] HospitalComment on above:Performed By: #### CMREP #### [facility] [address] [place] [address] Dr. Risa Ayalautrophils/100 WBC (Bld)71.2 %Horqid87.0-75.0The [facility] HospitalComment on above:Performed By: #### CMREP #### [facility] [address] [place] [address] Dr. Risa Wiselet mean volume (Bld) [Entitic vol]9.2 fLCritically low 9.5-13.5The [facility] HospitalComment on above:Performed By: #### CMREP #### [facility] [address] [place] [address] Dr. Risa PattersonPLT285 103/ppFmsqjk350-307Dzo [facility] HospitalComment on above: Performed By: #### CMREP #### [facility] [address] [address] [address] Risa PattersonRBC3.98 106/ulCritically low4.70-6.10The [facility] HospitalComment on above:Performed By: #### CMREP #### [facility] [address] [address] [address] Risa PattersonWBC9.0 103/ulNormal4.0-11.0The [facility] HospitalComment on above: Performed By: #### CMREP #### [facility] [address] [place] [address] Dr. Risa PattersonPROF CHEM 8 (BAS METB)on 82-81-3447Hwfww gap [Moles/Vol]12.3 mmol/LNormalThe [facility] HospitalComment on above:Performed By: #### CMREP #### [facility] [address] [place] [address] Dr. Risa PattersonCalcium [Mass/Vol]9.3 mg/dLNormal8.5-10.1The [facility] Comment on above:Performed By: #### CMREP #### [facility] [address] [place] [address] Dr. Risa PattersonChloride [Moles/Vol]106 mmol/YGdvgfy08-417Jiq [facility] Comment on above:Performed By: #### CMREP #### [facility] [address] [place] [address] Dr. Risa PattersonCO2 [Moles/Vol]29.2 mmol/IToptzc23.0-32.0The [facility] Comment on above:Performed By: #### CMREP #### [facility] [address] [place] [address] Dr. Risa PattersonCreatinine [Mass/Vol]1.40 mg/dLCritically high0.70-1.30The [facility] HospitalComment on above:Performed By: #### CMREP #### [facility] [address] [place] [address] Dr. Lord ChangEGFR-AF BANGLADESHI>60Normal>=60The [facility] HospitalComment on above:Performed By: #### CMREP #### [facility] [address] [address] [address] Risa MorenoGFR-NON AF EIWZWXRV28 mL/min/1.51q5Fllgzhnwgr low>=60The [facility] HospitalComment on above:Performed By: #### CMREP #### [facility] [address] [address] [address] Risa PattersonGlucose [Mass/Vol]107 mg/dLCritically yizp05-373Knr [facility] HospitalComment on above:Performed By: #### CMREP #### [facility] [address] [address] [address] Risa PattersonPotassium [Moles/Vol]4.5 mmol/LNormal3.5-5.1[facility] Comment on above:Performed By: #### CMREP #### [facility] [address] [address] [address] Risa PattersonSodium [Moles/Vol]143 mmol/EEpaxts330-505Boy [facility] Comment on above:Performed By: #### CMREP #### [facility] [address] [address] [address] Risa PattersonUrea nitrogen [Mass/Vol]20.0 mg/dLCritically high7.0-18.0The [facility] HospitalComment on above:Performed By: #### CMREP #### [facility] [address] [address] [address] Risa PattersonUrea nitrogen/Creatinine [Mass ratio]14.3 mg/mgNormalThe [facility] HospitalComment on above:Performed By: #### CMREP #### [facility] [address] [address] [address] Risa PattersonCT CHEST HI RESOLUTIONon 90-29-8275ZH CHEST HI RESOLUTION EXAMINATION: CT CHEST HI [...] Electronically authenticated by: ASHER SOLANO Date: 2022-04-25 11:06[facility] Arms HospitalHEMOGLOBINon 16-29-1242Tuifpubsaz (Bld) [Mass/Vol]11.9 g/dL Critically low14.0-18.0The [facility] HospitalComment on above:Performed By: #### CMADM, BNP, BMP #### [facility] [address] [address] [address] Risa Esteves AUTO DIFFon 20-19-9303OICO #0.0 103/ulNormal0.0-0.1The [facility] HospitalComment on above:Performed By: #### CMADM, BNP, BMP #### [facility] [address] [address] [address] Risa PattersonBasophils/100 WBC (Bld)0.5 %Normal0.2-2.0The [facility] Comment on above:Performed By: #### CMADM, BNP, BMP #### [facility] [address] [address] [address] Risa Hill #0.3 103/ulNormal0.0-0.7The [facility] HospitalComment on above: Performed By: #### CMADM, BNP, BMP #### [facility] [address] [address] [address] Risa Morenoosinophils/100 WBC (Bld)5.3 %Normal0.9-7.0[facility] Comment on above:Performed By: #### CMADM, BNP, BMP #### [facility] [address] [place] [address] Dr. Risa Morenorythrocyte distribution width (RBC) [Ratio]16.3 %Critically high 11.0-15.0The [facility] HospitalComment on above:Performed By: #### CMADM, BNP, BMP #### [facility] [address] [place] [address] Dr. Risa PattersonHematocrit (Bld) [Volume fraction]38.4 %Critically low42.0-54.0 The [facility] HospitalComment on above:Performed By: #### CMADM, BNP, BMP #### [facility] [address] [place] [address] Dr. Risa PattersonHemoglobin (Bld) [Mass/Vol]12.0 g/dLCritically low14.0-18.0The [facility] HospitalComment on above:Performed By: #### CMADM, BNP, BMP #### [facility] [address] [place] [address] Dr. Risa Mckenzie #0.04 10e3/ulCritically high0.00-0.03[facility] Comment on above:Performed By: #### CMADM, BNP, BMP #### [facility] [address] [place] [address] Dr. Risa Mckenzie %0.7 %Critically high0.0-0.5The [facility] HospitalComment on above:Performed By: #### CMADM, BNP, BMP #### [facility] [address] [place] [address] Dr. Risa JaegerMPH #1.1 103/ulCritically low1.2-3.8The [facility] Comment on above:Performed By: #### CMADM, BNP, BMP #### [facility] [address] [place] [address] Dr. Risa Jaegermphocytes/100 WBC (Bld)18.7 %Critically low20.5-60.0[facility] CenterComment on above:Performed By: #### CMADM, BNP, BMP #### [facility] [address] [address] [address] Risa Child DIFF REQNONormalThe [facility] Doctors HospitalComment on above: Performed By: #### CMADM, BNP, BMP #### [facility] [address] [place] [address] Dr. Risa Mann (RBC) [Entitic mass]31.3 isWqhgge05.9-34.0The [facility] HospitalComment on above:Performed By: #### CMADM, BNP, BMP #### [facility] [address] [place] [address] Dr. Risa Mann (RBC) [Mass/Vol]31.3 g/wPEetvtn53.9-35.2The [facility] HospitalComment on above:Performed By: #### CMADM, BNP, BMP #### [facility] [address] [place] [address] Dr. Risa Mann (RBC) [Entitic vol]100.0 fLCritically high80.0-94.0The [facility] HospitalComment on above:Performed By: #### CMADM, BNP, BMP #### [facility] [address] [place] [address] Dr. Risa Mcarthur #0.8 103/ulNormal0.3-0.8The [facility] HospitalComment on above:Performed By: #### CMADM, BNP, BMP #### [facility] [address] [place] [address] Dr. Risa Sowocytes/100 WBC (Bld)13.7 %Critically high1.7-12.0The [facility] HospitalComment on above:Performed By: #### CMADM, BNP, BMP #### [facility] [address] [place] [address] Dr. Risa Ryan #3.7 103/ulNormal1.4-6.5The [facility] HospitalComment on above:Performed By: #### CMADM, BNP, BMP #### [facility] [address] [place] [address] Dr. Risa Ayalautrophils/100 WBC (Bld)61.1 %Wzycpo94.0-75.0The [facility] HospitalComment on above:Performed By: #### CMADM, BNP, BMP #### [facility] [address] [place] [address] Dr. Risa Wiselet mean volume (Bld) [Entitic vol]9.5 fLNormal9.5-13.5The [facility] HospitalComment on above:Performed By: #### CMADM, BNP, BMP #### [facility] [address] [place] [address] Dr. Risa PattersonPLT218 103/scVdnbdg835-073Xba [facility] HospitalComment on above: Performed By: #### CMADM, BNP, BMP #### [facility] [address] [place] [address] Dr. Risa PattersonRBC3.84 106/ulCritically low4.70-6.10The [facility] HospitalComment on above:Performed By: #### CMADM, BNP, BMP #### [facility] [address] [place] [address] Dr. Risa PattersonWBC6.0 103/ulNormal4.0-11.0The [facility] HospitalComment on above: Performed By: #### CMADM, BNP, BMP #### [facility] [address] [place] [address] Dr. Risa PattersonPROF 14(COMP METB)on [id number] [Mass/Vol]2.9 g/dL Critically low3.4-5.0The [facility] HospitalComment on above:Performed By: #### CMADM, BNP, BMP #### [facility] [address] [place] [address] Dr. Risa PattersonAlbumin/Globulin [Mass ratio]0.7 {ratio}NormalThe [facility] Doctors HospitalComment on above:Performed By: #### CMADM, BNP, BMP #### [facility] [address] [place] [address] Dr. Risa Arteaga [Catalytic activity/Vol]66 U/ZUcdvst91-489Yfb [facility] HospitalComment on above:Performed By: #### CMADM, BNP, BMP #### [facility] [address] [place] [address] Dr. Risa Jenkins [Catalytic activity/Vol]33 U/EYvjqeh83-72Viz [facility] HospitalComment on above:Performed By: #### CMADM, BNP, BMP #### [facility] [address] [place] [address] Dr. Risa Knoxon gap [Moles/Vol]10.7 mmol/LNormalW[facility] Comment on above:Performed By: #### CMADM, BNP, BMP #### [facility] [address] [place] [address] Dr. Risa PattersonAST [Catalytic activity/Vol]24 U/DIaktjs49-72Qqs [facility] HospitalComment on above:Performed By: #### CMADM, BNP, BMP #### [facility] [address] [place] [address] Dr. Risa PattersonBilirubin [Mass/Vol]0.3 mg/dLNormal0.2-1.0The [facility] Comment on above:Performed By: #### CMADM, BNP, BMP #### [facility] [address] [place] [address] Dr. Risa PattersonCalcium [Mass/Vol]9.0 mg/dLNormal8.5-10.1[facility] Comment on above:Performed By: #### CMADM, BNP, BMP #### [facility] [address] [place] [address] Dr. Risa PattersonChloride [Moles/Vol]106 mmol/FJhtlwl87-701Bhx [facility] Comment on above:Performed By: #### CMADM, BNP, BMP #### [facility] [address] [place] [address] Dr. Risa PattersonCO2 [Moles/Vol]31.7 mmol/EVcmyoe66.0-32.0The [facility] Comment on above:Performed By: #### CMADM, BNP, BMP #### [facility] [address] [address] [address] Risa PattersonCreatinine [Mass/Vol]1.18 mg/dLNormal0.70-1.30The [facility] HospitalComment on above:Performed By: #### CMADM, BNP, BMP #### [facility] [address] [address] [address] Risa MorenoGFR-AF BANGLADESHI>60Normal>=60The [facility] HospitalComment on above:Performed By: #### CMADM, BNP, BMP #### [facility] [address] [address] [address] Risa MorenoGFR-NON AF BANGLADESHI>60Normal>=60The [facility] HospitalComment on above:Performed By: #### CMADM, BNP, BMP #### [facility] [address] [place] [address] Dr. Risa PattersonGlobulin (S) [Mass/Vol]3.9 g/dLNormalThe [facility] HospitalComment on above:Performed By: #### CMADM, BNP, BMP #### [facility] [address] [address] [address] Risa PattersonGlucose [Mass/Vol]99 mg/yPPlbdsg26-644Uiz [facility] Comment on above:Performed By: #### CMADM, BNP, BMP #### [facility] [address] [address] [address] Risa PattersonPotassium [Moles/Vol]4.4 mmol/LNormal3.5-5.1The [facility] Comment on above:Performed By: #### CMADM, BNP, BMP #### [facility] [address] [address] [address] Risa PattersonProtein [Mass/Vol]6.8 g/dLNormal6.4-8.2The [facility] Comment on above:Performed By: #### CMADM, BNP, BMP #### [facility] [address] [address] [address] Risa PattersonSodium [Moles/Vol]144 mmol/MRfwpwp401-351Zze [facility] Comment on above:Performed By: #### CMADM, BNP, BMP #### [facility] [address] [address] [address] Risa Carrillo nitrogen [Mass/Vol]17.0 mg/dLNormal7.0-18.0The [facility] HospitalComment on above:Performed By: #### CMADM, BNP, BMP #### [facility] [address] [address] [address] Risa Carrillo nitrogen/Creatinine [Mass ratio]14.4 mg/mgNormalThe [facility] HospitalComment on above:Performed By: #### CMADM, BNP, BMP #### [facility] [address] [place] [address] Dr. Risa Leonard RATE WESTERGRENon 34-04-5238WYN RATE66 mm/hrCritically high <=20The [facility] HospitalComment on above:Performed By: #### CMADM, BNP, BMP #### [facility] [address] [place] [address] Dr. Risa Esteves AUTO DIFFon 75-04-1699XOAK #0.1 103/ulNormal0.0-0.1The [facility] HospitalComment on above:Performed By: #### CMADM, BNP, BMP #### [facility] [address] [place] [address] Dr. Risa PattersonBasophils/100 WBC (Bld)1.1 %Normal0.2-2.0The [facility] Comment on above:Performed By: #### CMADM, BNP, BMP #### [facility] [address] [place] [address] Dr. Risa Hill #0.3 103/ulNormal0.0-0.7The [facility] HospitalComment on above: Performed By: #### CMADM, BNP, BMP #### [facility] [address] [place] [address] Dr. Risa Morenoosinophils/100 WBC (Bld)7.1 %Critically high0.9-7.0The [facility] HospitalComment on above:Performed By: #### CMADM, BNP, BMP #### [facility] [address] [address] [address] Risa Morenorythrocyte distribution width (RBC) [Ratio]17.2 %Critically high 11.0-15.0The [facility] HospitalComment on above:Performed By: #### CMADM, BNP, BMP #### [facility] [address] [place] [address] Dr. Risa PattersonHematocrit (Bld) [Volume fraction]34.0 %Critically low42.0-54.0 The [facility] HospitalComment on above:Performed By: #### CMADM, BNP, BMP #### [facility] [address] [place] [address] Dr. Risa PattersonHemoglobin (Bld) [Mass/Vol]10.6 g/dLCritically low14.0-18.0The [facility] HospitalComment on above:Performed By: #### CMADM, BNP, BMP #### [facility] [address] [place] [address] Dr. Risa Mckenzie #0.02 10e3/ulNormal0.00-0.03The [facility] on above:Performed By: #### CMADM, BNP, BMP #### [facility] [address] [place] [address] Dr. Risa Mckenzie %0.4 %Normal0.0-0.5The [facility] HospitalComment on above: Performed By: #### CMADM, BNP, BMP #### [facility] [address] [place] [address] Dr. Risa JaegerMPDemetris #1.0 103/ulCritically low1.2-3.8The [facility] Comment on above:Performed By: #### CMADM, BNP, BMP #### [facility] [address] [place] [address] Dr. Risa Jaegermphocytes/100 WBC (Bld)22.9 %Dubcuu43.5-60.0The [facility] HospitalComment on above:Performed By: #### CMADM, BNP, BMP #### [facility] [address] [place] [address] Dr. Risa Child DIFF REQNONormalThe [facility] HospitalComment on above: Performed By: #### CMADM, BNP, BMP #### [facility] [address] [place] [address] Dr. Risa Mann (RBC) [Entitic mass]31.2 uiUdqipi98.9-34.0The [facility] HospitalComment on above:Performed By: #### CMADM, BNP, BMP #### [facility] [address] [place] [address] Dr. Risa Mann (RBC) [Mass/Vol]31.2 g/rUVhbwzs23.9-35.2The [facility] HospitalComment on above:Performed By: #### CMADM, BNP, BMP #### [facility] [address] [place] [address] Dr. Risa Mann (RBC) [Entitic vol]100.0 fLCritically high80.0-94.0The [facility] HospitalComment on above:Performed By: #### CMADM, BNP, BMP #### [facility] [address] [place] [address] Dr. Risa Mcarthur #0.8 103/ulNormal0.3-0.8The [facility] HospitalComment on above:Performed By: #### CMADM, BNP, BMP #### [facility] [address] [place] [address] Dr. Risa Sowocytes/100 WBC (Bld)18.7 %Critically high1.7-12.0The [facility] HospitalComment on above:Performed By: #### CMADM, BNP, BMP #### [facility] [address] [place] [address] Dr. Risa Ryan #2.2 103/ulNormal1.4-6.5The [facility] HospitalComment on above:Performed By: #### CMADM, BNP, BMP #### [facility] [address] [place] [address] Dr. Risa Ayalautrophils/100 WBC (Bld)49.8 %Ebhvso72.0-75.0The [facility] HospitalComment on above:Performed By: #### CMADM, BNP, BMP #### [facility] [address] [place] [address] Dr. Risa PattersonPlatelet mean volume (Bld) [Entitic vol]10.0 fLNormal9.5-13.5The [facility] HospitalComment on above:Performed By: #### CMADM, BNP, BMP #### [facility] [address] [place] [address] Dr. Risa PattersonPLT232 103/ahNwkqrg458-883Rhr [facility] HospitalComfresenius [facility] on above: Performed By: #### CMADM, BNP, BMP #### [facility] [address] [place] [address] Dr. Risa PattersonRBC3.40 106/ulCritically low4.70-6.10The [facility] HospitalComment on above:Performed By: #### CMADM, BNP, BMP #### [facility] [address] [place] [address] Dr. Risa PattersonWBC4.5 103/ulNormal4.0-11.0The [facility] HospitalComfresenius [facility] on above: Performed By: #### CMADM, BNP, BMP #### [facility] [address] [place] [address] Dr. Risa PattersonPROF 14(COMP METB)on 20-68-2590Qgojghy [Mass/Vol]2.8 g/dL Critically low3.4-5.0The Doctors Hospitalment on above:Performed By: #### CMREP #### [facility] [address] [place] [address] Dr. iRsa PattersonAlbumin/Globulin [Mass ratio]0.8 {ratio}NormalThe [facility] on above:Performed By: #### CMREP #### [facility] [address] [place] [address] Dr. Risa EscamillaP [Catalytic activity/Vol]63 U/KDlwirr30-895Mee [facility] HospitalComment on above:Performed By: #### CMREP #### [facility] [address] [address] [address] Risa Jenkins [Catalytic activity/Vol]29 U/QCnxhne05-34Rxr [facility] on above:Performed By: #### CMREP #### [facility] [address] [address] [address] Risa Knoxon gap [Moles/Vol]10.7 mmol/LNormalThe [facility] Comment on above:Performed By: #### CMREP #### [facility] [address] [address] [address] Risa PattersonAST [Catalytic activity/Vol]23 U/LEaozrq36-17Xqd [facility] on above:Performed By: #### CMREP #### [facility] [address] [address] [address] Risa PattersonBilirubin [Mass/Vol]0.2 mg/dLNormal0.2-1.0[facility] Comment on above:Performed By: #### CMREP #### [facility] [address] [address] [address] Risa PattersonCalcium [Mass/Vol]8.5 mg/dLNormal8.5-10.1[facility] Comment on above:Performed By: #### CMREP #### [facility] [address] [address] [address] Risa PattersonChloride [Moles/Vol]109 mmol/LCritically rwvw59-944Gdc [facility] HospitalComment on above:Performed By: #### CMREP #### [facility] [address] [address] [address] Risa PattersonCO2 [Moles/Vol]28.7 mmol/XTgcxyx08.0-32.0[facility] Comment on above:Performed By: #### CMREP #### [facility] [address] [address] [address] Risa PattersonCreatinine [Mass/Vol]1.05 mg/dLNormal0.70-1.30[facility] CenterComment on above:Performed By: #### CMREP #### [facility] [address] [address] [address] Risa MorenoGFR-AF BANGLADESHI>60Normal>=60The [facility] HospitalComment on above:Performed By: #### CMREP #### [facility] [address] [address] [address] Risa MorenoGFR-NON AF BANGLADESHI>60Normal>=60The [facility] HospitalComment on above:Performed By: #### CMREP #### [facility] [address] [address] [address] Risa PattersonGlobulin (S) [Mass/Vol]3.5 g/dLNormalThe [facility] HospitalComfresenius [facility] on above:Performed By: #### CMREP #### [facility] [address] [address] [address] Risa PattersonGlucose [Mass/Vol]82 mg/sDNysbvs82-788GrwW[facility] Center Comment on above:Performed By: #### CMREP #### [facility] [address] [address] [address] Risa PattersonPotassium [Moles/Vol]4.5 mmol/LNormal3.5-5.1The [facility] Comment on above:Performed By: #### CMREP #### [facility] [address] [address] [address] Risa PattersonProtein [Mass/Vol]6.3 g/dLCritically low6.4-8.2The Doctors Hospitalment on above:Performed By: #### CMREP #### [facility] [address] [address] [address] Risa PattersonSodium [Moles/Vol]144 mmol/IOjsxeq657-120Chq [facility] Comment on above:Performed By: #### CMREP #### [facility] [address] [address] [address] Risa PattersonUrea nitrogen [Mass/Vol]16.0 mg/dLNormal7.0-18.0The [facility] HospitalComment on above:Performed By: #### CMREP #### [facility] [address] [place], [place] [address] Dr. Risa Carrillo nitrogen/Creatinine [Mass ratio]15.2 mg/mgNormalThe [facility] HospitalComfresenius [facility] on above:Performed By: #### CMREP #### [facility] [address] [place], [place] [address] Dr. Risa Leonard RATE WESTERGRENon 35-15-3274FGQ RATE42 mm/hrCritically high <=20The [facility] HospitalComment on above:Performed By: #### CMADM, BNP, BMP #### [facility] [address] [id number] Risa CohenC W Auto Differential panel (Bld)on 52-00-6282Usx Immature Gran <0.10 k/uLSalem Regional Medical CenterBasophils (Bld) [#/Vol]0.04 10*3/uL<0.11 k/uLSalem Regional Medical CenterBasophils/100 WBC (Bld)0.7 %[facility] CenterDifferential cell count method Nom (Bld)AutoCleveland ClinicEosinophils (Bld) [#/Vol]0.30 10*3/uL<0.46 k/uLSalem Regional Medical CenterEosinophils/100 WBC (Bld)5.5 %[facility] Medical CenterErythrocyte distribution width (RBC) [Ratio]18.1 %High11.5 - 15.0 %[facility] Hematocrit (Bld) [Volume fraction]34.6 %Low39.0 - 51.0 %[facility] Hemoglobin (Bld) [Mass/Vol]10.9 g/dLLow13.0 - 17.0 g/dLSalem Regional Medical CenterImmature Gran %0.4 %[facility] Medical CenterLymphocytes (Bld) [#/Vol]0.95 10*3/uLLow1.00 - 4.00 k/uLSalem Regional Medical CenterLymphocytes/100 WBC (Bld)17.4 %[facility], BeachwoodH (RBC) [Entitic mass]31.3 pg26.0 - 34.0 pgClevelRed Wing Hospital and ClinicHC (RBC) [Mass/Vol]31.5 g/dL30.5 - 36.0 g/dLSalem Regional Medical CenterMCV (RBC) [Entitic vol]99.4 fL80.0 - 100.0 fLCleveland ClinicMonocytes (Bld) [#/Vol]0.69 10*3/uL<0.87 k/uLSalem Regional Medical Center Monocytes/100 WBC (Bld)12.7 %[facility] Medical CenterNeutrophils (Bld) [#/Vol]3.45 10*3/uL1.45 - 7.50 k/uLSalem Regional Medical CenterNeutrophils/100 WBC (Bld)63.3 %[facility] CenterNucleated RBC (Bld) [#/Vol]<0.01 k/uLSalem Regional Medical CenterNucleated RBC/100 WBC (Bld) [Ratio]0.0 /100 WBCSalem Regional Medical CenterPlatelet mean volume (Bld) [Entitic vol]10.0 fL9.0 - 12.7 fLCleveland ClinicPlatelets (Bld) [#/Vol]230 10*3/uL150 - 400 k/uLSalem Regional Medical CenterRBC (Bld) [#/Vol]3.48 10*6/uLLow4.20 - 6.00 m/uL [facility] CenterWBC (Bld) [#/Vol]5.45 10*3/uL3.70 - 11.00 k/uLMercy Health metabolic 2000 panelon 35-66-6418Qgzhluz [Mass/Vol]3.5 g/dLLow3.9 - 4.9 g/dLRochester ClinicALP [Catalytic activity/Vol]69 U/L38 - 113 U/L [facility] ClinicALT [Catalytic activity/Vol]23 U/L10 - 54 U/LCleveland Clinic Anion gap [Moles/Vol]6 mmol/LLow9 - 18 mmol/LCleveland ClinicAST [Catalytic activity/Vol]27 U/L14 - 40 U/LCleveland ClinicBilirubin [Mass/Vol]0.4 mg/dL0.2 - 1.3 mg/dLRochester ClinicCalcium [Mass/Vol]9.2 mg/dL8.5 - 10.2 mg/dLRochester ClinicChloride [Moles/Vol]110 mmol/LHigh97 - 105 mmol/LCleveland ClinicCO2 [Moles/Vol]27 mmol/L22 - 30 mmol/LCleveland ClinicCreatinine [Mass/Vol]1.05 mg/dL0.73 - 1.22 mg/dLSalem Regional Medical CenterEstimated Glomerular Filtration Rate81 mL/min/1.73m>=60 mL/min/1.73mCleveland ClinicGlucose [Mass/Vol]109 mg/rALrtp93 - 99 mg/dLSalem Regional Medical CenterPotassium [Moles/Vol]3.9 mmol/L3.7 - 5.1 mmol/L [facility] CenterProtein [Mass/Vol]6.0 g/dLLow6.3 - 8.0 g/dLSalem Regional Medical Center Sodium [Moles/Vol]143 mmol/L136 - 144 mmol/LCleveland [facility] Medical CenterUrea nitrogen [Mass/Vol]17 mg/dL9 - 24 mg/dLSalem Regional Medical CenterLD LACTATE DEHYDROon 97-00-1225MXX [Catalytic activity/Vol]270 U/OAzgw533 - 225 U/LCleveland Olmsted Medical CenterCBC AUTO DIFFon 11-12-9776PUPL #0.0 103/ulNormal0.0-0.1[facility] CenterComment on above: Performed By: #### CBC #### [facility] [address] [address] [address] Risa PattersonBasophils/100 WBC (Bld)0.7 %Normal0.2-2.0[facility] Comment on above:Performed By: #### CBC #### [facility] [address] [address] [address] Risa Hill #0.2 103/ulNormal0.0-0.7The [facility] HospitalComment on above: Performed By: #### CBC #### [facility] [address] [address] [address] Risa Morenoosinophils/100 WBC (Bld)3.6 %Normal0.9-7.0The [facility] Comment on above:Performed By: #### CBC #### [facility] [address] [address] [address] Risa Morenorythrocyte distribution width (RBC) [Ratio]17.4 %Critically high 11.0-15.0[facility] CenterComment on above:Performed By: #### CBC #### [facility] [address] [place] [address] Dr. Risa PattersonHematocrit (Bld) [Volume fraction]36.2 %Critically low42.0-54.0 The [facility] HospitalComment on above:Performed By: #### CBC #### [facility] [address] [place] [address] Dr. Risa PattersonHemoglobin (Bld) [Mass/Vol]11.3 g/dLCritically low14.0-18.0The [place] HospitalComment on above:Performed By: #### CBC #### [facility] [address] [place] [address] Dr. Risa Mckenzie #0.02 10e3/ulNormal0.00-0.03The [place] HospitalComment on above:Performed By: #### CBC #### [facility] [address] [place] [address] Dr. Risa Mckenzie %0.5 %Normal0.0-0.5The [place] HospitalComment on above: Performed By: #### CBC #### [facility] [address] [place] [address] Dr. Risa Luu #0.9 103/ulCritically low1.2-3.8The [facility] Comment on above:Performed By: #### CBC #### [facility] [address] [place] [address] Dr. Risa Jaegermphocytes/100 WBC (Bld)20.0 %Critically low20.5-60.0[facility] CenterComment on above:Performed By: #### CBC #### [facility] [address] [place] [address] Dr. Risa YbarraUAL DIFF REQNONormalThe [place] HospitalComment on above: Performed By: #### CBC #### [facility] [address] [place] [address] Dr. Risa Perez (RBC) [Entitic mass]30.9 yyOwejzn67.9-34.0The [place] HospitalComment on above:Performed By: #### CBC #### [facility] [address] [place] [address] Dr. Risa Mann (RBC) [Mass/Vol]31.2 g/xRQptsnh09.9-35.2The [facility] HospitalComment on above:Performed By: #### CBC #### [facility] [address] [place] [address] Dr. Risa Roldan (RBC) [Entitic vol]98.9 fLCritically high80.0-94.0The [facility] HospitalComment on above:Performed By: #### CBC #### [facility] [address] [place] [address] Dr. Risa Mcarthur #0.2 103/ulCritically low0.3-0.8The [facility] HospitalComment on above:Performed By: #### CBC #### [facility] [address] [place] [address] Dr. Risa Sowocytes/100 WBC (Bld)5.4 %Normal1.7-12.0The [facility] Comment on above:Performed By: #### CBC #### [facility] [address] [place] [address] Dr. Risa Ryan #3.1 103/ulNormal1.4-6.5The [facility] HospitalComment on above:Performed By: #### CBC #### [facility] [address] [place] [address] Dr. Risa Ayalautrophils/100 WBC (Bld)69.8 %Eulixa92.0-75.0The [facility] HospitalComment on above:Performed By: #### CBC #### [facility] [address] [place] [address] Dr. Risa Garcia mean volume (Bld) [Entitic vol]9.7 fLNormal9.5-13.5The [facility] HospitalComment on above:Performed By: #### CBC #### [facility] [address] [place] [address] Dr. Risa DejesusT235 103/wsNjjogl010-874Eqe [facility] HospitalComment on above: Performed By: #### CBC #### [facility] [address] [place] [address] Dr. Risa PattersonRBC3.66 106/ulCritically low4.70-6.10The [facility] HospitalComment on above:Performed By: #### CBC #### [facility] [address] [place] [address] Dr. Risa PattersonWBC4.4 103/ulNormal4.0-11.0The [facility] HospitalComment on above: Performed By: #### CBC #### [facility] [address] [place] [address] Dr. Risa PattersonFERRITINon 04-49-8487Tsmozsae [Mass/Vol]285.0 ng/mLNormal 26.0-388.0The [facility] HospitalComment on above:Performed By: #### FERR, VITB12 #### [facility] [address] [place] [address] Dr. Risa PattersonVITAMIN B12on 92-11-2100Fcfkecikn (Vitamin B12) [Mass/Vol]460.0 pg/cEAcadfq937.0-986.0The [facility] HospitalComment on above:Performed By: #### FERR, VITB12 #### [facility] [address] [place] [address] Dr. Risa Esteves AUTO DIFFon 51-29-0707SXWB #0.0 103/ulNormal0.0-0.1The [facility] HospitalComment on above:Performed By: #### CMREP #### [facility] [address] [place] [address] Dr. Risa PattersonBasophils/100 WBC (Bld)0.7 %Normal0.2-2.0The [facility] Comment on above:Performed By: #### CMREP #### [facility] [address] [place] [address] Dr. Lord ChangEO #0.3 103/ulNormal0.0-0.7The [facility] HospitalComment on above: Performed By: #### CMREP #### [facility] [address] [place] [address] Dr. Risa Morenoosinophils/100 WBC (Bld)6.9 %Normal0.9-7.0The [facility] Comment on above:Performed By: #### CMREP #### [facility] [address] [place] [address] Dr. Risa Morenorythrocyte distribution width (RBC) [Ratio]17.0 %Critically high 11.0-15.0The [facility] HospitalComment on above:Performed By: #### CMREP #### [facility] [address] [place] [address] Dr. Risa PattersonHematocrit (Bld) [Volume fraction]35.4 %Critically low42.0-54.0 The [facility] HospitalComment on above:Performed By: #### CMREP #### [facility] [address] [place] [address] Dr. Risa PattersonHemoglobin (Bld) [Mass/Vol]11.0 g/dLCritically low14.0-18.0The [facility] HospitalComment on above:Performed By: #### CMREP #### [facility] [address] [place] [address] Dr. Risa Mckenzie #0.01 10e3/ulNormal0.00-0.03The [facility] HospitalComment on above:Performed By: #### CMREP #### [facility] [address] [place] [address] Dr. Risa Mckenzie %0.2 %Normal0.0-0.5The [facility] HospitalComment on above: Performed By: #### CMREP #### [facility] [address] [place] [address] Dr. Risa JaegerMPH #0.9 103/ulCritically low1.2-3.8The [facility] Comment on above:Performed By: #### CMREP #### [facility] [address] [place] [address] Dr. Risa Jaegermphocytes/100 WBC (Bld)19.5 %Critically low20.5-60.0The [facility] HospitalComment on above:Performed By: #### CMREP #### [facility] [address] [place] [address] Dr. Risa YbarraUAL DIFF REQNONormalThe [facility] HospitalComment on above: Performed By: #### CMREP #### [facility] [address] [place] [address] Dr. Risa Mann (RBC) [Entitic mass]30.5 nzYgbfgu18.9-34.0The [facility] HospitalComment on above:Performed By: #### CMREP #### [facility] [address] [place] [address] Dr. Risa Mann (RBC) [Mass/Vol]31.1 g/gMCxlzfj95.9-35.2The [facility] HospitalComment on above:Performed By: #### CMREP #### [facility] [address] [place] [address] Dr. Risa MannV (RBC) [Entitic vol]98.1 fLCritically high80.0-94.0The [facility] HospitalComfresenius [facility] at [facility] [place] on above:Performed By: #### CMREP #### [facility] [address] [place] [address] Dr. Risa Mcarthur #0.6 103/ulNormal0.3-0.8The [facility] HospitalComment on above:Performed By: #### CMREP #### [facility] [address] [place] [address] Dr. Risa Sowocytes/100 WBC (Bld)14.0 %Critically high1.7-12.0The [facility] HospitalComment on above:Performed By: #### CMREP #### [facility] [address] [place] [address] Dr. Risa Ryan #2.6 103/ulNormal1.4-6.5The [facility] HospitalComment on above:Performed By: #### CMREP #### [facility] [address] [address] [address] Risa PattersonNeutrophils/100 WBC (Bld)58.7 %Lnvloy04.0-75.0The [facility] HospitalComment on above:Performed By: #### CMREP #### [facility] [address] [address] [address] Risa PattersonPlatelet mean volume (Bld) [Entitic vol]9.9 fLNormal9.5-13.5The [facility] HospitalComment on above:Performed By: #### CMREP #### [facility] [address] [place] [address] Dr. Risa PattersonPLT200 103/tlOujmur736-961Ere [facility] HospitalComment on above: Performed By: #### CMREP #### [facility] [address] [place] [address] Dr. Risa PattersonRBC3.61 106/ulCritically low4.70-6.10The [facility] HospitalComment on above:Performed By: #### CMREP #### [facility] [address] [place] [address] Dr. Risa PattersonWBC4.4 103/ulNormal4.0-11.0The [facility] HospitalComment on above: Performed By: #### CMREP #### [facility] [address] [place] [address] Dr. Risa PattersonPROF CHEM 8 (BAS METB)on 27-93-8269Jernn gap [Moles/Vol]12.3 mmol/LNormalThe [facility] HospitalComment on above:Performed By: #### CMADM, BNP, BMP #### [facility] [address] [place] [address] Dr. Risa PattersonCalcium [Mass/Vol]8.9 mg/dLNormal8.5-10.1The [facility] Comment on above:Performed By: #### CMADM, BNP, BMP #### [facility] [address] [place] [address] Dr. Risa PattersonChloride [Moles/Vol]109 mmol/LCritically kbuk61-591Wgp [facility] HospitalComment on above:Performed By: #### CMADM, BNP, BMP #### [facility] [address] [address] [address] Risa PattersonCO2 [Moles/Vol]27.1 mmol/LWfooqk50.0-32.0[facility] Comment on above:Performed By: #### CMADM, BNP, BMP #### [facility] [address] [address] [address] Risa PattersonCreatinine [Mass/Vol]1.04 mg/dLNormal0.70-1.30The [facility] HospitalComment on above:Performed By: #### CMADM, BNP, BMP #### [facility] [address] [place] [address] Dr. Risa MorenoGFR-AF BANGLADESHI>60Normal>=60The [facility] HospitalComment on above:Performed By: #### CMADM, BNP, BMP #### [facility] [address] [place] [address] Dr. Risa MorenoGFR-NON AF BANGLADESHI>60Normal>=60The [facility] HospitalComment on above:Performed By: #### CMADM, BNP, BMP #### [facility] [address] [place] [address] Dr. Risa PattersonGlucose [Mass/Vol]112 mg/dLCritically qcll50-527Iwq [facility] HospitalComment on above:Performed By: #### CMADM, BNP, BMP #### [facility] [address] [place] [address] Dr. Risa PattersonPotassium [Moles/Vol]4.4 mmol/LNormal3.5-5.1The [facility] Comment on above:Performed By: #### CMADM, BNP, BMP #### [facility] [address] [place] [address] Dr. Risa PattersonSodium [Moles/Vol]144 mmol/GVdmwly494-107Dsb [facility] Comment on above:Performed By: #### CMADM, BNP, BMP #### [facility] [address] [place], [place] [address] Dr. Risa Carrillo nitrogen [Mass/Vol]19.0 mg/dLCritically high7.0-18.0The [facility] HospitalComment on above:Performed By: #### CMADM, BNP, BMP #### [facility] [address] [place], [place] [address] Dr. Risa Carrillo nitrogen/Creatinine [Mass ratio]18.3 mg/mgNormalThe [facility] HospitalComment on above:Performed By: #### CMADM, BNP, BMP #### [facility] [address] [address] [address] Risa Christie 69-19-6756JVS1.618 uIU/mLNormal0.358-3.740The [facility] HospitalComment on above:Performed By: #### CMADM, BNP, BMP #### [facility] [address] [address] [address] Lord ChangECHOCARDIDenise M/2D COMPLETEon [id number] M/2D COMPLETE Patient: ELENA FELIX Exam Date: 10/04/2021 : 1960 Gender:M Ordering : NIKKIE TREJO Admission #: [id number] Family : DR SILVANA LUNDBERG M.D. Order #: [id number] CLICK HERE TO VIEW EXAM ECHOCARDIOGRAM REPORT [...] Area(A4C): 20.40 cm2 Left Atrium Systolic Volume(A2C): 68820 mm3 Left Atrium Systolic Volume(A4C): 68929 mm3 Mitral Valve MV E to A [...] by: Alan Leung M.D. on 10/04/2021 at 19:44NoCleveland Clinic Fairview HospitalPROF CHEM 8 (BAS METB)on 06-86-9335Ztuak gap [Moles/Vol]12.3 mmol/L NormalThe [facility] HospitalComment on above:Performed By: #### CMADM, BNP, BMP #### [facility] [address] [address] [address] Risa PattersonCalcium [Mass/Vol]9.3 mg/dLNormal8.5-10.1The [facility] Comment on above:Performed By: #### CMADM, BNP, BMP #### [facility] [address] [place] [address] Dr. Risa PattersonChloride [Moles/Vol]105 mmol/CRavnsu48-349Lty [facility] Comment on above:Performed By: #### CMADM, BNP, BMP #### [facility] [address] [place] [address] Dr. Risa PattersonCO2 [Moles/Vol]28.2 mmol/OVspkdx55.0-32.0The [facility] Comment on above:Performed By: #### CMADM, BNP, BMP #### [facility] [address] [place] [address] Dr. Risa PattersonCreatinine [Mass/Vol]1.54 mg/dLCritically high0.70-1.30The [facility] HospitalComment on above:Performed By: #### CMADM, BNP, BMP #### [facility] [address] [place] [address] Dr. Risa MorenoGFR-AF PJRFGPZR32 mL/min/1.86u0Txilvfpfva low>=60The [facility] HospitalComment on above:Performed By: #### CMADM, BNP, BMP #### [facility] [address] [place] [address] Dr. Risa MorenoGFR-NON AF HQDWSYBG43 mL/min/1.32h1Dsmskrpmpf low>=60The [facility] HospitalComment on above:Performed By: #### CMADM, BNP, BMP #### [facility] [address] [place] [address] Dr. Yilan ChangGlucose [Mass/Vol]86 mg/zVZudclg64-269Krz [facility] Comment on above:Performed By: #### CMADM, BNP, BMP #### [facility] [address] [address] [address] Risa PattersonPotassium [Moles/Vol]4.5 mmol/LNormal3.5-5.1The [facility] Comment on above:Performed By: #### CMADM, BNP, BMP #### [facility] [address] [place] [address] Dr. Risa Rayodium [Moles/Vol]141 mmol/UFzqqgh737-820Rqk [facility] Comment on above:Performed By: #### CMADM, BNP, BMP #### [facility] [address] [place] [address] Dr. Risa PattersonUrea nitrogen [Mass/Vol]18.0 mg/dLNormal7.0-18.0The [facility] HospitalComment on above:Performed By: #### CMADM, BNP, BMP #### [facility] [address] [place] [address] Dr. Risa Carrillo nitrogen/Creatinine [Mass ratio]11.7 mg/mgNormalThe [facility] HospitalComment on above:Performed By: #### CMADM, BNP, BMP #### [facility] [address] [place] [address] Dr. Risa Lynn 22-09-9803Owzakxkeoqg peptide B (Bld) [Mass/Vol]186.0 pg/mL Normal<=900.0The [facility] HospitalComment on above:Performed By: #### CMADM, BNP, BMP #### [facility] [address] [place] [address] Dr. Risa Easley ALICIA 3-6on 24-43-7239OY [Catalytic activity/Vol]133 U/L Diyffg48-008Lau [facility] HospitalComment on above:Performed By: #### CMREP #### [facility] [address] [place] [address] Dr. Risa James.MB [Mass/Vol]1.54 ng/mLNormal<=3.60[facility] Comment on above:Performed By: #### CMREP #### [facility] [address] [place] [address] Dr. Risa Terrell11.9 pg/mLNormal4.0-76.1The [facility] HospitalComment on above:Result Comment: CUT-OFF POINTS HAVE BEEN ESTABLISHED BASED ON THE FOURTH UNIVERSAL DEFINITIONS OF MYOCARDIAL INFARCTION. THE UPPER REFERENCE LIMIT (URL) OF TROPONIN, DEFINED THE 99TH PERCENTILE OF cTnI DISTRIBUTION IN A REFERENCE POPULATION, HAS BEEN CONFIRMED THE DECISION THRESHOLD FOR CA DIAGNOSIS.Performed By: #### CMREP #### [facility] [address] [place] [address] Dr. Risa Easley ALICIA ADMITon [id number] [Catalytic activity/Vol]136 U/L Rwqjyi04-329WjoWexner Medical CenterComment on above:Performed By: #### CMADM, BNP, BMP #### [facility] [address] [place] [address] Dr. Risa James.MB [Mass/Vol]1.37 ng/mLNormal<=3.60[facility] Comment on above:Performed By: #### CMADM, BNP, BMP #### [facility] [address] [place] [address] Dr. Risa Terrell12.1 pg/mLNormal4.0-76.1[facility] CenterComment on above:Result Comment: CUT-OFF POINTS HAVE BEEN ESTABLISHED BASED ON THE FOURTH UNIVERSAL DEFINITIONS OF MYOCARDIAL INFARCTION. THE UPPER REFERENCE LIMIT (URL) OF TROPONIN, DEFINED THE 99TH PERCENTILE OF cTnI DISTRIBUTION IN A REFERENCE POPULATION, HAS BEEN CONFIRMED THE DECISION THRESHOLD FOR CA DIAGNOSIS.Performed By: #### CMADM, BNP, BMP #### [facility] [address] [place] [address] Dr. Risa DowlingO129 ng/mLCritically pkoc66-93ZgvWexner Medical CenterComment on above:Performed By: #### CMADM, BNP, BMP #### [facility] [address] [place] [address] Dr. Risa Esteves AUTO DIFFon 25-82-7336TQQQ #0.1 103/ulNormal0.0-0.1The [facility] HospitalComment on above:Performed By: #### CMREP #### [facility] [address] [place] [address] Dr. Risa PattersonBasophils/100 WBC (Bld)0.8 %Normal0.2-2.0[facility] Comment on above:Performed By: #### CMREP #### [facility] [address] [place] [address] Dr. Risa Hill #0.5 103/ulNormal0.0-0.7The [facility] HospitalComment on above: Performed By: #### CMREP #### [facility] [address] [place] [address] Dr. Risa Morenoosinophils/100 WBC (Bld)5.1 %Normal0.9-7.0The [facility] Comment on above:Performed By: #### CMREP #### [facility] [address] [place] [address] Dr. Risa Morenorythrocyte distribution width (RBC) [Ratio]14.5 %Ejmgxz25.0-15.0 [facility] CenterComment on above:Performed By: #### CMREP #### [facility] [address] [place] [address] Dr. Risa PattersonHematocrit (Bld) [Volume fraction]40.7 %Critically low42.0-54.0 The [facility] HospitalComment on above:Performed By: #### CMREP #### [facility] [address] [place] [address] Dr. Risa PattersonHemoglobin (Bld) [Mass/Vol]12.8 g/dLCritically low14.0-18.0[facility] CenterComment on above:Performed By: #### CMREP #### [facility] [address] [place] [address] Dr. Risa Mckenzie #0.05 10e3/ulCritically high0.00-0.03The [facility] Comment on above:Performed By: #### CMREP #### [facility] [address] [address] [address] Risa Mckenzie %0.5 %Normal0.0-0.5The [facility] HospitalComment on above: Performed By: #### CMREP #### [facility] [address] [address] [address] Risa Luu #1.7 103/ulNormal1.2-3.8The [facility] HospitalComment on above:Performed By: #### CMREP #### [facility] [address] [place] [address] Dr. Risa Amaralhocytes/100 WBC (Bld)15.8 %Critically low20.5-60.0The [facility] HospitalComment on above:Performed By: #### CMREP #### [facility] [address] [place] [address] Dr. Risa YbarraUAL DIFF REQNONormalThe [facility] HospitalComment on above: Performed By: #### CMREP #### [facility] [address] [place] [address] Dr. Risa Mann (RBC) [Entitic mass]30.3 qwSokifm62.9-34.0The [facility] HospitalComment on above:Performed By: #### CMREP #### [facility] [address] [place] [address] Dr. Risa Mann (RBC) [Mass/Vol]31.4 g/eTIqarrc61.9-35.2The [facility] HospitalComment on above:Performed By: #### CMREP #### [facility] [address] [place] [address] Dr. Risa Mann (RBC) [Entitic vol]96.4 fLCritically high80.0-94.0The [facility] HospitalComment on above:Performed By: #### CMREP #### [facility] [address] [place] [address] Dr. Risa Mcarthur #1.1 103/ulCritically high0.3-0.8The [facility] Comment on above:Performed By: #### CMREP #### [facility] [address] [place] [address] Dr. Risa Sowocytes/100 WBC (Bld)10.7 %Normal1.7-12.0[facility] Comment on above:Performed By: #### CMREP #### [facility] [address] [place] [address] Dr. Risa AyalaUT #7.1 103/ulCritically high1.4-6.5ThOhioHealth [facility] Hospital Comment on above:Performed By: #### CMREP #### [facility] [address] [place] [address] Dr. Risa Ayalautrophils/100 WBC (Bld)67.1 %Hqhdvb36.0-75.0[facility] CenterComment on above:Performed By: #### CMREP #### [facility] [address] [place] [address] Dr. Risa PattersonPlatelet mean volume (Bld) [Entitic vol]9.5 fLNormal9.5-13.5The [facility] HospitalComment on above:Performed By: #### CMREP #### [facility] [address] [place] [address] Dr. Risa PattersonPLT317 103/unNdzlmo987-367Nwd [facility] HospitalComment on above: Performed By: #### CMREP #### [facility] [address] [place] [address] Dr. Risa PattersonRBC4.22 106/ulCritically low4.70-6.10ThOhioHealth Marion General HospitalComment on above:Performed By: #### CMREP #### [facility] [address] [place] [address] Dr. Risa PattersonWBC10.6 103/ulNormal4.0-11.0The [facility] HospitalComment on above:Performed By: #### CMREP #### [facility] [address] [place] [address] Dr. Risa Roger CHEST WO W CONon [id number] CHEST WO W CONEXAMINATION: CTA CHEST WO W CON HISTORY: SHORTNESS OF BREATH [...] Electronically authenticated by: MAJOR REA Date: 2021-09-20 08:07[facility] HospitalCovid-[facility] PCR (CVDTBH)on 83-01-7858DPXO-CoV-2 (COVID-19) RNA SAMMY+probe Ql (Unsp spec)Not detectedNormalNOT DETECTEDThe [facility] Comment on above:Result Comment: When diagnostic testing is negative, the [...] for this test is supported by the [place] of Health and Human Service's declaration that circumstances exist to justify the emergency use of in vitro diagnostics for the detection and/or diagnosis of the virus that causes COVID-19. This EUA will remain in effect for the duration of the COVID-19 declaration justifying emergency of IVDs, unless it is terminated or revoked by the FDA (after which the test may no longer be used).Performed By: #### CMADM, BNP, BMP #### [facility] [address] [place] [address] Dr. Risa Ogden A AND B AGon [id number] [facility] on above:Result Comment: Negative for Flu A protein angiten. Infection due to Flu A cannot be ruled out. FluA angiten in the sample may be below the detection limit of the test.Performed By: #### CMREP #### [facility] [address] [place] [address] Dr. Risa ShepherdUBNEGHSParkview Health Bryan Hospital on above: Result Comment: Negative for Flu B protein antigen. Infection due to Flu B cannot be ruled out. FluB antigen in the sample may be below the detection limit of the test.Performed By: #### CMREP #### [facility] [address] [place] [address] Dr. Risa Mortensen AGNegativeNormalNEGATIVE SEE COMMENTThe [facility] on above:Performed By: #### CMREP #### [facility] [address] [place] [address] Dr. Risa Mandujano AGNegativeNormalNEGATIVE SEE COMMENTThe [facility] on above:Performed By: #### CMREP #### [facility] [address] [place] [address] Dr. Risa PattersonINTERNAL CONTROLSWithin Normal LimitsNormalWithin Normal Limits [facility] on above:Performed By: #### CMREP #### [facility] [address] [place] [address] Dr. Risa PattersonPROF CHEM 8 (BAS METB)on 37-26-3713Oqssi gap [Moles/Vol]15.5 mmol/LNormalMercy Health Clerm[facility] Hospital on above:Performed By: #### CMADM, BNP, BMP #### [facility] [address] [place] [address] Dr. Risa PattersonCalcium [Mass/Vol]9.0 mg/dLNormal8.5-10.1[facility] Comment on above:Performed By: #### CMADM, BNP, BMP #### [facility] [address] [place] [address] Dr. Risa PattersonChloride [Moles/Vol]104 mmol/JHvvhjr32-510FjxWexner Medical Center Comment on above:Performed By: #### CMADM, BNP, BMP #### [facility] [address] [place] [address] Dr. Risa PattersonCO2 [Moles/Vol]25.2 mmol/FWhkfve22.0-32.0The [facility] Comment on above:Performed By: #### CMADM, BNP, BMP #### [facility] [address] [place] [address] Dr. Risa PattersonCreatinine [Mass/Vol]1.27 mg/dLNormal0.70-1.30The [facility] HospitalComment on above:Performed By: #### CMADM, BNP, BMP #### [facility] [address] [place] [address] Dr. Lord ChangEGFR-AF BANGLADESHI>60Normal>=60The [facility] HospitalComment on above:Performed By: #### CMADM, BNP, BMP #### [facility] [address] [place] [address] Dr. Risa MorenoGFR-NON AF QFXVVYSP53 mL/min/1.51l4Sbkjfytgoo low>=60The [facility] Doctors HospitalComment on above:Performed By: #### CMADM, BNP, BMP #### [facility] [address] [place] [address] Dr. Risa PattersonGlucose [Mass/Vol]138 mg/dLCritically ssvr96-501Mxm [facility] HospitalComment on above:Performed By: #### CMADM, BNP, BMP #### [facility] [address] [place] [address] Dr. Risa PattersonPotassium [Moles/Vol]3.7 mmol/LNormal3.5-5.1[facility] Comment on above:Performed By: #### CMADM, BNP, BMP #### [facility] [address] [place], [place] [address] Dr. Risa PattersonSodium [Moles/Vol]141 mmol/NKbatkx177-687Top [facility] Comment on above:Performed By: #### CMADM, BNP, BMP #### [facility] [address] [address] [address] Risa Carrillo nitrogen [Mass/Vol]19.0 mg/dLCritically high7.0-18.0The [facility] HospitalComment on above:Performed By: #### CMADM, BNP, BMP #### [facility] [address] [place], [place] [address] Dr. Risa Carrillo nitrogen/Creatinine [Mass ratio]15.0 mg/mgNoCleveland Clinic Fairview HospitalComment on above:Performed By: #### KRISSY, BNP, BMP #### [facility] [address] [place], [place] [address] Dr. Risa PattersonXR CHEST 1 Von [id number] CHEST 1 VXR CHEST 1 V 09/20/2021 6:22 AM EDT Indication: COUGH Technique: Portable AP radiograph of the chest was obtained. Comparison: July 27, 2021 Findings: The lungs are adequately inflated. No acute rib fractures, pneumothorax or mediastinal shift. No consolidation, edema, or effusion. Heart is normal in size and contour. Thoracolumbar fusion hardware noted. Impression: No acute findings. Electronically authenticated by: ANGELES NASSAR Date: 2021-09-20 06:53[facility] HospitalUS ASHLEY DOP LEG LTon [id number] ASHLEY DOP LEG LTEXAMINATION: US ASHLEY DOP LEG LT HISTORY: Pain [...] Findings called to ordering provider by the threshing operator at time of imaging. Electronically authenticated by: ASHER SOLANO Date: 2021-09-14 14:25[facility] HospitalCardiovascular Lab Reporton [id number] Lab Report [facility] Patient Name: Elena Felix MR #: [id number] Physician: Nikkie Department of MD Yesika Medicine Service Date: 06/23/2021 Division of Birthdate: 1960 Cardiology Room #: Adult Cardiovascular Services [facility] [address] [address] Cardiovascular Laboratory Report Procedures: 1. Right heart [...] Trejo MD Date Trans: 06/25/2021 03:01 P/ DN_JN:[id number] cc: Renato Lundberg M.D. [address] [place] [address] [address] [facility] [address]HgxazvUllMetroHealth [facility] Vital Signs Date TimeVital SignValuePerforming TsuwhptkfMweodlld54-14-7142 09:00-0400Body wloujy261.42 cmSilvana Lundberg MD Work Phone: [facility]08-05-2025 09:00-0400 Body mass index (BMI) [Ratio]39.7 kg/x5ZbmxluSilvana Lundberg MD Work Phone: [facility]08-05-2025 09:00-0400 Body .75 kgSilvana Lundberg MD Work Phone: [facility]08-05-2025 09:00-0400 Diastolic blood hzigtkde18 mm[Hg]Silvana Lundberg MD Work Phone: [phone]08-05-2025 09:00-0400 Heart rate77 /minSilvana Lundberg MD Work Phone: [facility]08-05-2025 09:00-0400 SaO2% (BldA) [Mass fraction]95 %Silvana Lundbegr MD Work Phone: [phone])[address]08-05-2025 09:00-0400 Systolic blood uhdazxnf128 mm[Hg]Silvana Lundberg MD Work Phone: 1([phone])[address]07-08-2025 15:05-0400 Body cyavdn883.42 cmSilvana Lundbegr MD Work Phone: [phone])[address]07-08-2025 15:05-0400 Body mass index (BMI) [Ratio]39.5 kg/i7DvpolbSilvana Lundberg MD Work Phone: 1(260)254[address]07-08-2025 15:05-0400 Body yhambt726.07 kgSilvana Lundberg MD Work Phone: 1(055)[address]132 [address]07-08-2025 15:05-0400 Diastolic blood vaiuesmf65 mm[Hg]Silvana Lundberg MD Work Phone: 1(863)[address] [place], [place] 1634307-08-2025 15:05-0400 Heart rate73 /minSilvana Lundberg MD Work Phone: 1(511)[address] [place], [place] 1634307-08-2025 15:05-0400 SaO2% (BldA) [Mass fraction]96 %Silvana Lundberg MD Work Phone: [phone])[address]07-08-2025 15:05-0400 Systolic blood evtcaskv814 mm[Hg]Silvana Lundberg MD Work Phone: 1(277)[address]32 [address]06-16-2025 10:18-0400 Body vbgunq127.42 cmSilvana Lundberg MD Work Phone: 1(578)[address]06-16-2025 10:18-0400 Body mass index (BMI) [Ratio]40.1 kg/e0IamqlkSilvana Lundberg MD Work Phone: [phone](452)[address]06-16-2025 10:18-0400 Body kaaeuk638.89 kgSilvana Lundberg MD Work Phone: 1(032)93232 [address]06-16-2025 10:18-0400 Diastolic blood mm[Hg]Silvana Lundberg MD Work Phone: 1(582)[address]06-16-2025 10:18-0400 Heart rate86 /Caroline Lundberg MD Work Phone: 1(585)[address] [place], [place] 1634306-16-2025 10:18-0400 SaO2% (BldA) [Mass fraction]95 %Silvana Lundberg MD Work Phone: [phone])[address] [place], [place] 1634306-16-2025 10:18-0400 Systolic blood kcbtnqmu141 mm[Hg]Silvana Lundberg MD Work Phone: 1(160)[address] [place], [place] 1634305-19-2025 13:31-0400 Body .42 cmSilvana Lundberg MD Work Phone: [phone])[address] [place], [place] 1634305-19-2025 13:31-0400 Body mass index (BMI) [Ratio]40.5 kg/s7FopqouSilvana Lundberg MD Work Phone: 1(647)[address] [place], [place] 1634305-19-2025 13:31-0400 Body smteut682.25 kgSilvana Lundberg MD Work Phone: 1(199)[address] [place], [place] 1634305-19-2025 13:31-0400 Diastolic blood mm[Hg]Silvana Lundberg MD Work Phone: 1(389)[address] [place], [place] 1634305-19-2025 13:31-0400 Heart rate79 /Caroline Lundberg MD Work Phone: 1(419)[address] [place], [place] 1634305-19-2025 13:31-0400 Systolic blood cbztsqwe62 mm[Hg]Silvana Lundberg MD Work Phone: 1(723)[address] [place], [place] 1634305-19-2025 10:27-0400 Body xmpujt764.42 cmSilvana Lundberg MD Work Phone: 1(330)[address] [place], [place] 1634305-19-2025 10:27-0400 Body mass index (BMI) [Ratio]40.4 kg/i4FoiurvSilvana Lundberg MD Work Phone: 1(649)[address] [place], [place] 1634305-19-2025 10:27-0400 Body igmzxf636 kgSilvana Lundberg MD Work Phone: 1(864)[address]05-19-2025 10:27-0400 Diastolic blood mm[Hg]Silvana Lundberg MD Work Phone: 1(426)45332 [address]05-19-2025 10:27-0400 Heart rate70 /Caroline Lundberg MD Work Phone: 1(894)[address] [place], [place] 1634305-19-2025 10:27-0400 Respiratory rate18 /Caroline Lundberg MD Work Phone: 1(222)[address] [place], [place] 1634305-19-2025 10:27-0400 SaO2% (BldA) [Mass fraction]97 %Silvana Lundberg MD Work Phone: 1(196)[address] [place], [place] 1634305-19-2025 10:27-0400 Systolic blood ryrastqe468 mm[Hg]Silvana Lundberg MD Work Phone: 1(398)[address] [place], [place] 1634304-29-2025 10:17-0400 Body .42 cmSilvana Lundberg MD Work Phone: 1(280)[address] [place], [place] 1634304-29-2025 10:17-0400 Body mass index (BMI) [Ratio]40.4 kg/v3UzkkblSilvana Lundberg MD Work Phone: 1(696)[address] [place], [place] 1634304-29-2025 10:17-0400 Body .02 kgSilvana Lundberg MD Work Phone: 1(659)[address] [place], [place] 16[address]304-29-2025 10:17-0400 Diastolic blood gucqihsn26 mm[Hg]Silvana Lundberg MD Work Phone: 1(464)50832 [address]04-29-2025 10:17-0400 Heart rate71 /Caroline Lundberg MD Work Phone: 1(214)[address]04-29-2025 10:17-0400 SaO2% (BldA) [Mass fraction]98 %Silvana Lundberg MD Work Phone: 1(161)[address]04-29-2025 10:17-0400 Systolic blood wghkqfbo595 mm[Hg]Silvana Lundberg MD Work Phone: [facility]04-02-2025 09:30-0400 Body qnuxcw673.06 kgSilvana Lundberg MD Work Phone: [facility]04-02-2025 09:30-0400 Diastolic blood hbdkhkro90 mm[Hg]Silvana Lundberg MD Work Phone: [phone]04-02-2025 09:30-0400 Heart rate85 /Caroline Lundberg MD Work Phone: 1(926)[address]04-02-2025 09:30-0400 SaO2% (BldA) [Mass fraction]97 %Silvana Lundberg MD Work Phone: [facility]04-02-2025 09:30-0400 Systolic blood bnaoedpa396 mm[Hg]Silvana Lundberg MD Work Phone: [phone]02-18-2025 09:30-0500 Diastolic blood huntgepu39 mm[Hg][facility]02-18-2025 09:30-0500Heart rate63 /[facility]02-18-2025 09:30-2724WcL1% (BldA) [Mass fraction]97 %[facility] 06-10-2024 09:30-0500Systolic blood elahvjsb780 mm[Hg][facility]01-21-2025 10:41-0500Body yrxjie909.42 cmBarnesville Hospital01-21-2025 10:41-0500Body mass index (BMI) [Ratio]42.2 kg/o4JddegupcvBarnesville Hospital01-21-2025 10:41-0500Body .14 kgBarn[facility]ville Hospital01-21-2025 10:41-0500Diastolic blood syxgghyf90 mm[Hg] [facility]01-21-2025 10:41-0500Heart rate69 /[facility]01-21-2025 10:41-0500Systolic blood ccvgomne950 mm[Hg] [facility]10-18-2024 09:46-0400Body lfjnfa357 cmLcristina Emanuel MD Work Phone: [phone]10-18-2024 09:46-0400Body mass index (BMI) [Ratio]40.17 kg/y4HbvfaAlysha Emanuel MD Work Phone: [facility]10-18-2024 09:46-0400Body .5 kgAlysha Emanuel MD Work Phone: [facility]10-18-2024 09:46-0400Diastolic blood blhpqbsy37 mm[Hg]Alysha Emanuel MD Work Phone: [facility]10-18-2024 09:46-0400Heart rate73 /min Alysha Emanuel MD Work Phone: [facility]10-18-2024 09:46-0400Systolic blood hnueneeu699 mm[Hg]Alysha Emanuel MD Work Phone: [facility]09-13-2024 10:47-0400Blood Pressure LocationRochester BELL [facility]09-13-2024 10:47-0400Diastolic blood ajxyvqve27 mm[Hg]Jerrod BELL [facility]09-13-2024 10:47-0400Systolic blood fispnjxw382 mm[Hg]Jerrod BELL [facility]08-13-2024 09:03-0400Body sopmfa717 cmKarthikeyan Marti MD Work Phone: [facility]08-13-2024 09:03-0400Body mass index (BMI) [Ratio]39.19 kg/h5TwvrnKarthikeyan Marti MD Work Phone: [facility]08-13-2024 09:03-0400Body temperature 97.3 [degF]Karthikeyan Marti MD Work Phone: [facility]08-13-2024 09:03-0400Body .5 kgKarthikeyan Marti MD Work Phone: [facility]08-13-2024 09:03-0400Diastolic blood mm[Hg]Karthikeyan Marti MD Work Phone: [facility]08-13-2024 09:03-0400Heart rate97 /min Karthikeyan Marti MD Work Phone: [facility]08-13-2024 09:03-0400Respiratory rate 16 /minKarthikeyan Marti MD Work Phone: [facility]08-13-2024 09:03-9035XsN2% (BldA) [Mass fraction]97 %Karthikeyan Marti MD Work Phone: [facility]08-13-2024 09:03-0400Systolic blood dovdajcb50 mm[Hg]Karthikeyan Marti MD Work Phone: [facility]06-10-2024 09:11-0400Body loeqxb333.42 cmMD Silvana Lundberg Work Phone: [facility]06-10-2024 09:11-0400 Body mass index (BMI) [Ratio]38.9 kg/m2MD Silvana Lundberg Work Phone: [facility]06-10-2024 09:11-0400 Body qxpjty270.8 kgMD Silvana Lundberg Work Phone: [facility]06-10-2024 09:11-0400 Diastolic blood kgvfimas04 mm[Hg]MD Silvana Lundberg Work Phone: [facility]06-10-2024 09:11-0400 Heart coxm396 /minMD Silvana Lundberg Work Phone: [facility]06-10-2024 09:11-0400 Systolic blood fnfbumpk441 mm[Hg]MD Silvana Lundberg Work Phone: [facility]05-10-2024 11:00-0400 Body jakwrq718.42 cmBarn[facility]ville [facility]05-10-2024 11:00-0400Body mass index (BMI) [Ratio]39.4 kg/e3VsemiinxzBarnesville Hospital05-10-2024 11:00-0400Body yhwota461.62 kgBarnesville Hospital05-10-2024 11:00-0400Diastolic blood tegdsiar68 mm[Hg][facility] 08-31-2023 11:00-0400Heart rate84 /minBarnesville Hospital 08-31-2023 11:00-0400Systolic blood qjreyczu884 mm[Hg][facility]03-25-2024 10:00-0400Body vyigyhuvojh10.42 [degF]Jerrod BELL [facility]03-25-2024 10:00-0400Diastolic blood ialwullh60 mm[Hg]Jerrod BELL [facility]03-25-2024 10:00-0400Heart rate95 /minHuInvoy Technologiesberna BELL [facility]03-25-2024 10:00-0400Respiratory rate16 /minPamaggiek BELL [facility]03-25-2024 10:00-0400Systolic blood gumasoar897 mm[Hg]Jerrod BELL [facility]03-15-2024 09:51-0400Body .42 cmPHYSICIAN [facility]03-15-2024 09:51-0400Body mass index (BMI) [Ratio]39.2 kg/v1CKAQYCJFE NO [facility]03-15-2024 09:51-0400 Body kxutxh663.71 kgPHYSICIAN NO [facility] 07-06-2023 09:51-0400Diastolic blood sxsmfoai82 mm[Hg]PHYSICIAN NO [facility]03-15-2024 09:51-0400Heart rate88 /minPHYSICIAN NO [facility]03-15-2024 09:51-6272ZcE9% (BldA) [Mass fraction]98 %PHYSICIAN NO [facility] 07-06-2023 09:51-0400Systolic blood aiccgxxb529 mm[Hg]PHYSICIAN NO [facility]10-16-2023 12:48-0400Body zahgem222.73 kg Austin Jose MD Work Phone: [facility]07-28-2023 10:05-0400Diastolic blood fkbqkuda23 mm[Hg]Berta Francis MD Work Phone: [phone] CenterLsskxd03-23-7285 10:05-0400Heart rate62 /min Berta Francis MD Work Phone: [phone] [facility] Medical CenterPlazva01-45-3036 10:05-0400Systolic blood vjxyvnev021 mm[Hg]Berta Francis MD Work Phone: [phone] Medical CenterDpztlh50-28-7217 09:58-0400Body wayrgo062 kg Berta Francis MD Work Phone: [phone] Medical CenterZoyftz00-95-6648 09:58-5138TiI1% (BldA) [Mass fraction]97 %Berta Francis MD Work Phone: [phone] Stokes [facility] VA Medical CenterPpfsfs19-02-5782 11:00-0400Body edsgbu029.42 cmSilvana Lundberg Other [employer] Other 07-11-2023 11:00-0400Body mass index (BMI) [Ratio] 39.58 kg/w0KyxrxsSilvana Lundberg Other [employer] Other 07-11-2023 11:00-0400Body zprmvtrjubx82.9 [degF]Silvana Lundberg Other [employer] Other 07-11-2023 11:00-0400Body ijpbjm424.08 kgSilvana Tamika Other [employer] Other 07-11-2023 11:00-0400Diastolic blood myeelbiw18 mm[Hg] Silvana Lundberg Other [employer] Other 07-11-2023 11:00-0400Systolic blood szpzjnuy47 mm[Hg] Silvana Lundberg Other [employer] Other 06-26-2023 14:45-0400Body fwwocz364.42 cmJaquelinemarkkami Tamika Other [employer] Other 06-26-2023 14:45-0400Body mass index (BMI) [Ratio] 38.39 kg/q7Clmakv Braun Other [employer] Other 06-26-2023 14:45-0400Body kgSilvana Tamika Other [employer] Other 06-26-2023 14:45-0400Diastolic blood mm[Hg] Silvana Lundberg Other [employer] Other 06-26-2023 14:45-0400Systolic blood vghluiyd40 mm[Hg] Silvana Lundberg Other [employer] Other 06-16-2023 08:23-0400Body akerqr006 Stacy Palacios APRN.[facility] Work Phone: [phone]16-2023 08:23-0400Body kjyvdb189.54 kgAnna Palacios SITE LEADER.SLITTER OPERATOR Work Phone: [facility]06-16-2023 08:23-0400Diastolic blood mmyciiab76 mm[Hg]Anna Palacios SITE LEADER.SLITTER OPERATOR Work Phone: [facility]06-16-2023 08:23-0400Heart rate83 /min Anna Palacios SITE LEADER.SLITTER OPERATOR Work Phone: [facility]06-16-2023 08:23-6138EtL4% (BldA) [Mass fraction]95 %Anna Palacios SITE LEADER.SLITTER OPERATOR Work Phone: [facility]06-16-2023 08:23-0400Systolic blood tfmnfiul938 mm[Hg]Anna Palacios SITE LEADER.SLITTER OPERATOR Work Phone: [facility]04-26-2023 08:14-0400Diastolic blood aholfxod22 mm[Hg]Berta Francis MD Work Phone: DLou[facility] Medical CenterGzssgt31-26-9868 08:14-0400Systolic blood bjqykxmj613 mm[Hg]Berta Francis MD Work Phone: ILou[facility] Medical CenterIxpuam35-86-8246 08:10-0400Body jcteni500 cm Berta Francis MD Work Phone: NLouis [facility] Medical CenterBxycwy87-78-1243 08:10-0400Body amwlrz363.36 kgBerta Francis MD Work Phone: ILou[facility] CenterWglptb83-71-4649 08:10-0400Heart rate89 /min Berta Francis MD Work Phone: KLouis [facility] Medical CenterKrynks07-81-5864 08:10-0580ErS1% (BldA) [Mass fraction]96 %Berta Francis MD Work Phone: JLouis [facility] Medical CenterOizlho74-70-5624 10:00-0500Body .42 cmSilvana Lundberg Other [employer] Other 01-16-2023 10:00-0500Body mass index (BMI) [Ratio] 39.71 kg/s4Gzthnd Braun Other [employer] Other 01-16-2023 10:00-0500Body .53 kgJaquelinemarkkami Lundberg Other [employer] Other 01-16-2023 10:00-0500Diastolic blood dihzgrcq31 mm[Hg] Silvana Lundberg Other [employer] Other 01-16-2023 10:00-2014XdI5% (BldA) [Mass fraction]97 % Silvana Lundberg Other [employer] Other 01-16-2023 10:00-0500Systolic blood dmkmhgry974 mm[Hg] Silvana Lundberg Other [employer] Other 09-28-2022 09:54-0400Body sizduc933.5 cmKarthikeyan Marti MD Work Phone: [facility]09-28-2022 09:54-0400Body temperature 97.3 [degF]Karthikeyan Marti MD Work Phone: [facility]09-28-2022 09:54-0400Body taeawh299.91 kgKarthikeyan Marti MD Work Phone: [facility]09-28-2022 09:54-0400Diastolic blood gozpfrny73 mm[Hg]Karthikeyan Marti MD Work Phone: [facility]09-28-2022 09:54-0400Heart rate92 /min Karthikeyan Marti MD Work Phone: [facility]09-28-2022 09:54-0400Respiratory rate 18 /minKarthikeyan Marti MD Work Phone: [facility]09-28-2022 09:54-1672VzI3% (BldA) [Mass fraction]97 %Karthikeyan Marti MD Work Phone: [facility]09-28-2022 09:54-0400Systolic blood zqfajkfr479 mm[Hg]Karthikeyan Marti MD Work Phone: [facility]09-07-2022 14:38-0400Body ktalxf758.5 cmKarthikeyan Marti MD Work Phone: [facility]09-07-2022 14:38-0400Body temperature 97.2 [degF]Karthikeyan Marti MD Work Phone: [facility]09-07-2022 14:38-0400Body tuqlwe578.53 kgKarthikeyan Marti MD Work Phone: [facility]09-07-2022 14:38-0400Diastolic blood mm[Hg]Karthikeyan Marti MD Work Phone: [facility]09-07-2022 14:38-0400Heart rate72 /min Karthikeyan Marti MD Work Phone: [facility]09-07-2022 14:38-0400Respiratory rate 18 /minKarthikeyan Marti MD Work Phone: [facility]09-07-2022 14:38-9796QzA9% (BldA) [Mass fraction]96 %Karthikeyan Marti MD Work Phone: [facility]09-07-2022 14:38-0400Systolic blood luxxvdbr707 mm[Hg]Karthikeyan Marti MD Work Phone: [facility]06-01-2022 15:35-0400Body oxjcxd996.5 cmKarthikeyan Marti MD Work Phone: [facility]06-01-2022 15:35-0400Body temperature 97.2 [degF]Karthikeyan Marti MD Work Phone: [facility]06-01-2022 15:35-0400Body kcadpw429.63 kgKarthikeyan Marti MD Work Phone: [facility]06-01-2022 15:35-0400Diastolic blood zvtllgwo19 mm[Hg]Karthikeyan Marti MD Work Phone: [facility]06-01-2022 15:35-0400Heart rate91 /min Karthikeyan Marti MD Work Phone: [facility]06-01-2022 15:35-0400Respiratory rate 16 /minKarthikeyan Marti MD Work Phone: [facility]06-01-2022 15:35-5157JgL6% (BldA) [Mass fraction]94 %aKrthikeyan Marti MD Work Phone: [facility]06-01-2022 15:35-0400Systolic blood mm[Hg]Karthikeyan aMrti MD Work Phone: [facility] Encounters Encounter DateEncounter TypeCare ProviderFacilityStart: 76-18-6285pnlmatqvytQX-C EUGENIA Ko PERRYFacility:EU BellevueStart: 18-68-1360mangttxslzCI-Shante Ko PERRYFacility:EU BellevueStart: 01-09-2025 End: 46-12-9478qlkonxymclQUXJT [facility]ublintart: 12-10-2024 End: 76-07-1904Xlrilydis encounterNataliremi Carranza RNHematology/OncologyStart: 12-10-2024 End: 13-34-7176Sjcpwzc encounter procedureSaydee Zamarripa MD-[facility] Work Phone: Start: 12-10-2024 End: 90-76-3491bmwqmhloceXmzjnc E Braun MD Work Phone: [facility] Work Phone: Start: 11-25-2024 End: 13-20-0785bimlpwbjzjUuwzqu E Braun MD Work Phone: [facility] Work Phone: Start: 11-25-2024 End: 38-22-5371Giwawsw encounter procedureSaydee Zamarripa MD-[facility] Work Phone: Start: 97-29-9856Tuh-patient / Non-visitJocarlos a Enrique APRN-[facility] Work Phone: Start: 10-28-2024 End: 94-83-9222czjfqotfriJvdzua E Braun MD Work Phone: [facility] Work Phone: Start: 10-28-2024 End: 87-03-8428Loekyxp encounter procedureEstella Tadeo NP-[facility] Work Phone: Start: 10-14-2024 End: 93-42-6372Zhficdf encounter procedureSaydee Zamarripa MD-[facility] Work Phone: Start: 94-03-5608Mzj-patient / Non-visitSaydee Zamarripa MD-[facility] / [facility] Work Phone: Start: 10-06-2024 End: 32-02-3885Gkfjlxs encounter procedureSaydee Zamarripa MD-[facility] Work Phone: Start: 09-25-2024 End: 90-33-0204ywrrucnhfbRjubqe E Braun MD Work Phone: [facility] Work Phone: Start: 09-25-2024 End: 03-37-8028Tgxwfym encounter procedureSilvana Lundberg MD Work Phone: [facility] Work Phone: Start: 69-85-4297Anp-patient / Non-visitSaydee Zamarripa MD-[facility] / [facility] Work Phone: Start: 09-08-2024 End: 22-41-1535Addjjiq encounter procedureSilvana Lundberg MD Work Phone: [facility] Work Phone: Start: 09-08-2024 End: 92-49-9939Xcokvtq encounter procedureSilvana Lundberg MD Work Phone: [facility] Work Phone: Start: 39-24-6492Ffo-patient / Non-visitSilvana Lundberg MD Work Phone: [facility] Work Phone: Start: 08-28-2024 End: 37-64-6695tgacdwlejqMfnwqb E Braun MD Work Phone: [facility] Work Phone: Start: 08-28-2024 End: 47-62-1281Jdzgeva encounter procedureSilvana Lundberg MD Work Phone: [facility] Work Phone: start: 08-19-2024 End: 97-85-2203ojnvrkazakQfzllk E Braun MD Work Phone: [facility] Work Phone: Start: 08-19-2024 End: 13-87-3127Wlpzhah encounter Alysia Lundberg MD Work Phone: [facility] Work Phone: Start: 08-06-2024 End: 20-54-6375Gvjsfgr encounter procedureSilvana Lundberg MD Work Phone: [facility] Work Phone: Start: 08-06-2024 End: 14-91-6067iywncpxtwwQysiqj E Braun MD Work Phone: [facility] Work Phone: Start: 07-30-2024 End: 63-99-3549UpocqnCxcau Khan MD Work Phone: EndocrinologyComment on above:Refill RequestStart: 07-23-2024 End: 97-63-2567urfmenakoxUzaeyh E Braun MD Work Phone: [facility] Work Phone: Start: 07-23-2024 End: 55-64-7296Oqkpkjf encounter procedureSilvana Lundberg MD Work Phone: [facility] Work Phone: Start: 07-21-2024 End: 33-54-0393qcmsjistrxEJJRJ [facility]ublintart: 07-21-2024 End: 62-70-8031tagoqscazaUTRZSXMU E PERRYFacility:EU [place]vueStart: 07-19-2024 Non-patient / Non-visitSilvana Lundberg MD Work Phone: [facility] Work Phone: Start: 04-90-3548Kzb-patient / Non-visitSilvana Lundberg MD Work Phone: [facility] [place] [facility] Work Phone: Start: 06-10-2024 End: 82-80-0872gjpqmlzfmfQYFWDQF [facility] Start: 06-10-2024 End: 62-76-0770jilgycvhbhGszuoe E Braun MD Work Phone: [facility] Work Phone: Start: 06-10-2024 End: 39-81-5438Scoemps encounter [facility] Work Phone: Start: 25-36-9730Cnk-patient / Non-visitC[facility] GroupPro[facility] Work Phone: Start: 11-42-5504Ncw-patient / Non-visitSilvana Lundberg MD Work Phone: [facility] Work Phone: Start: 32-47-5841Kxk-patient / Non-visitC[facility] GroupKind[facility] Work Phone: Start: 05-13-2024 End: 35-80-8946jbnbuueeaoQcvvvnyowPrem[facility] Health [facility] Work Phone: Start: 05-13-2024 End: 27-65-2257Larxnzl encounter procedureC[facility] Work Phone: Start: 04-09-2024 End: 49-39-7211wztjnniiibTdhdn Khan MD Work Phone: EndocrinologyComment on above:New injectionStart: 04-07-2024 End: 08-13-3636Glwddpvkk encounterAlysha Emanuel MD Work Phone: EndocrinologyComment on above:Medication Problem (Teriparatide 20 mcg/dose (600mcg/2.4mL)Start: 87-34-3943Xrh-patient / Non-visit [facility] Work Phone: Start: 54-89-3840Arf-patient / Non-visitC[facility] Work Phone: Start: 03-17-2024 End: 63-45-7436syeaetrgfnPQJHH KHANFacility:[facility] Hospitaltart: 02-12-2024 End: 15-00-2062vwkyybtvtkAPVYQI E BRAUNFacility:[facility] Hospitaltart: 02-08-2024 End: 14-12-1767xogjvnktkgEZKXXT PADUBIDRIFacility:[facility] Start: 02-08-2024 End: 01-25-2872Gygipus encounter Pranav Emanuel MD Work Phone: EndocrinologyComment on above:Other hyperparathyroidism (HCC) (Primary Dx); Closed fracture of hip, left, with delayed healing, subsequent encounter; High serum parathyroid hormone (PTH); Osteoporosis, unspecified osteoporosis type, unspecified pathological fracture presence; Class 3 severe obesity without serious comorbidity with body mass index (BMI) of 40.0 to 44.9 in adult, unspecified obesity type (HCC)Start: 01-04-2024 End: 06-83-6170mitwtqmoynXvzmfyu R WATERSFacility:EU BellevueStart: 01-04-2024 End: 35-29-7307Uxfekhl encounter procedureJerrod BELL [facility] start: 12-25-2023 End: 61-58-9529fuuoixkondJzugill R WATERSFacility:FTMCStart: 12-25-2023 End: 15-69-8716Wjmflul encounter procedureJerrod BELL [facility] Start: 12-04-2023 End: 41-47-8942aioegrskszRseluEsteban Marti MD Work Phone: Hematology/OncologyComment on above:History of DVT (deep vein thrombosis) (Primary Dx); Monoclonal gammopathyStart: 12-04-2023 End: 54-51-9441Dibagdo encounter Fabrizio Marti MD Work Phone: Hematology/OncologyStart: 11-29-2023 End: 69-42-7749Ydfymw outpatient visit 15 minutesMisty Wallace MD Work Phone: [facility] RochesterComf[facility] on above:Closed fracture of hip, left, with delayed healing, subsequent encounter (Primary Dx)Start: 11-29-2023 End: 12-32-5423fvsmelfpbkCEYOYD PADUBIDRIFacility:[facility] HospitalStart: 11-29-2023 End: 26-56-3617Gbkmjbztuf hospital visit by physicianXr [facility]Rad[facility] Comment on above:Closed fracture of hip, left, with delayed healing, subsequent encounter [S72.002G]Start: 43-33-3382Rsfbkkugv encounterAlysha Emanuel MD Work Phone: EndocrinologyStart: 10-01-2023 End: 53-74-6242ozawurgnbyGK Silvana Lnudberg Work Phone: [facility] Work Phone: Start: 10-01-2023 End: 90-77-9250Aqtnmte encounter procedureMD Silvana Lundberg Work Phone: [facility] Work Phone: Start: 07-55-3674Vzocktdvy encounterMisty Wallace MD Work Phone: Orthopaedics ClevelandComment on above:Results (Spoke with patient regarding his PTH results. )Start: 86-88-2489Sku-patient / Non-visitMD Silvana Lundberg Work Phone: [facility] Work Phone: Start: 09-27-2023 End: 91-45-0800nhgcbczykdDCUYLJAdriane Cameroncility:[facility] HospitalStart: 09-27-2023 End: 99-85-4337Iwfudn outpatient new 45 minutesMisty Wallace MD Work Phone: Orthopaedics ClevelandComment on above:Closed fracture of hip, left, with delayed healing, subsequent encounter (Primary Dx); Ankylosing spondylitis of multiple sites in spine (HCC); Acute deep vein thrombosis (DVT) of femoral vein of both lower extremities (HCC); Morbid obesity with BMI of 40.0-44.9, adult (HCC)Start: 09-27-2023 End: 17-58-0127rkyfcolfwmUTKFGC PADUBIDRIFacility:Vish HospitalStart: 09-27-2023 End: 25-96-8752Xwfidizgva hospital visit by physicianXr [facility]Rad[facility] Comment on above:Pain [R52]Start: 2023 End: 06-79-4244Noxpqko encounter procedureMD Silvana Tamika Work Phone: [facility] [address] Tr[address] Work Phone: Start: 08-31-2023 End: 20-50-3786mpspizjvqmOvaourkakDoctors Hospital Work Phone: Start: 08-31-2023 End: 48-96-0956Ypmwypx encounter procedurePedroinova [facility] Work Phone: Start: 72-76-5482Jon-patient / Non-visitFirinova mount [facility] hospital [facility] Work Phone: Start: 07-31-2023 End: 14-19-3943wnkflghezrUBRDN A PETITTINot AvailableStart: 07-17-2023 End: 27-14-3677faoziqgrneDXCNC A PETITTINot AvailableStart: 07-16-2023 End: 42-43-1728Osqddwj encounter procedureJerrod BELL [facility] start: 07-06-2023 End: 07-74-3854rxqnxdowcjCNFZQQORD NO [facility] Work Phone: Start: 07-06-2023 End: 93-46-2258Qgxrecs encounter procedurePHYSICIAN NO Caro Centersania [facility] Work Phone: Start: 39-23-4418Svp-patient / Non-visitPHYSICIAN NO [facility] Work Phone: Start: 05-03-2023 End: 18-04-4938idseoyvmdjDWIPWAJDQ [facility] Work Phone: Start: 05-03-2023 End: 80-49-8313Tgfamvi encounter procedurePHYSICIAN [facility] [address] Work Phone: Start: 03-29-2023(Televisit) TelevisitMarede [facility] Medical Centertart: 03-29-2023 End: 91-83-4701jxutnyivvcNxodfw Braun Other [employer] Other Start: 02-19-2023 End: 07-64-1793ddpulzmwhjGcpcpm Braun Other [employer] Other Start: 38-91-9803Sdlajjxkz encounterMarcikami [facility] Centertart: 02-05-2023 End: 16-90-9637Exftuun encounter procedureAustin Jose MD Work Phone: CardiologyComment on above:Shortness of breath (Primary Dx); Near syncopeStart: 12-27-2022 End: 82-67-7327shkrhxkvieGxycdx Braun Other [employer] Other Start: 08-17-6170Eqiuoqf evaluation of patient and reportChrist Hospitalede [facility] Centertart: 12-11-2022 End: 39-31-0275barvidolfyMTCLZTQNB [facility] Work Phone: Start: 12-11-2022 End: 69-77-3316Rjnibup encounter procedurePHYSICIAN [facility] [address] Work Phone: Start: 11-17-2022 End: 60-37-4756Mtgrabe encounter procedureBerta Francis MD Work Phone: cardiologyComment on above:SOB (shortness of breath) (Primary Dx); Coronary artery disease involving [place] coronary artery of [place] heart without angina pectoris; PalpitationsStart: 11-07-2022 End: 63-24-7441rcudljnaxcUehayv Braun Other [employer] Other Start: 01-02-8926Bytumup evaluation of patient and reportSilvana Anderson [facility] Hospitaltart: 05-37-6351Lksrwwihy encounter Silvana Anderson [facility] Hospitaltart: 11-02-2022 End: 82-57-6166bhkchirmdhXbldsb Braun Other [facility] [employer] Other Start: 53-63-6251Otlrqdygc encounterSilvana Anderson [facility] Hospitaltart: 14-62-7461Rfbipd outpatient visit 15 minutesMarede Anderson [facility] Hospitaltart: 10-31-2022 End: 81-17-4831brmzksohvhBO Silvana Lundberg Work Phone: [facility] Work Phone: Start: 10-31-2022 End: 34-39-7545Mhmgswfc ReferredMD Lentz Lundberg Work Phone: [facility] [address] Work Phone: Start: 13-95-6412Dxrqdr Vin Francis MD Work Phone: cardiologyComment on above:Dilated cardiomyopathy (HCC) (Primary Dx)Ankylosing spondylitis of multiple sites in spine (HCC) (Primary Dx)Results (Abnormal Labs)Start: 32-05-2414Blrnpx outpatient visit 25 minutesMarede [facility] ClinicStart: 10-16-2022 End: 40-20-1511ulzouqxaqvEev 1000) Work Phone: NeurologyComment on above:EMGStart: 10-16-2022 End: 68-90-0659Xvuboso encounter procedureEmg 1 Neur Main (Max Weight: 1000) Work Phone: [facility] MAINStart: 13-19-9495Jpetqwhyv encounterEmjoesph Anne Palacios SITE LEADER.SLITTER OPERATOR Work Phone: NeurologyComment on above:Results (Abnormal labs) Start: 10-06-2022 End: 24-70-6017Cxtkcww encounter procedureLaurenjoesph Anne Palacios SITE LEADER.SLITTER OPERATOR Work Phone: NeurologyComment on above:Disturbance of skin sensation (Primary Dx); Lightheadedness; Change in blood pressure; Orthostatic hypotension; TremulousnessStart: 10-04-2022 End: 32-64-2206Qampmbzyiu hospital visit by [place] [address] Work Phone: Molecular ImagingComment on above:Exertional dyspnea [R06.09]Start: 09-13-2022 End: 27-47-5914Osslyjkdjs hospital visit by [facility] Echocardiology TestingComment on above:Exertional dyspnea [R06.09]Start: 09-06-2022 End: 04-93-7468tljrgmydjyGY DOCTOR MISCFacility:L8Btzzw: 08-29-2022 End: 05-69-5609fnrbohxzycBeuxdhj Alvarez MD Work Phone: cardiologyComment on above:Shortness of BreathStart: 08-29-2022 End: 28-07-2203Xltfavx encounter Alyssa Anderson MD Work Phone: [facility] MAINStart: 39-72-2737Wdoriypju encounterDavid Anderson MD Work Phone: cardiologyComment on above:Patient EducationStart: 08-16-2022 End: 21-13-5625Wakxne Yesica Jose MD Work Phone: CardiologyComment on above:POTS (postural orthostatic tachycardia syndrome) (Primary Dx)Lightheadedness (Primary Dx); Change in blood pressure; SOB (shortness of breath); POTS (postural orthostatic tachycardia syndrome); Exertional dyspnea; Other secondary pulmonary hypertension (HCC); Autonomic dysfunction; Ankylosing spondylitis of multiple sites in spine (HCC); Acute deep vein thrombosis (DVT) of distal end of left lower extremity (HCC); Morbid obesity with BMI of 40.0-44.9, adult (HCC)Ankylosing spondylitis of multiple sites in spine (HCC)Start: 01-52-7074Mdeiztgxv encounterBerta Francis MD Work Phone: cardiologyComment on above:Received Outside Medical RecordsStart: 07-31-2022 End: 82-15-5834hanvcoehwvVWHOJVF [facility] HospitalStart: 07-31-2022 End: 37-57-8016Flxozfdvua hospital visit by [facility]Mon[facility] Tilt Table Study Room [facility] Stress LabComment on above:Orthostatic hypotension; POTS (postural orthostatic tachycardia syndrome)Start: 6587Lzuhhkcxl encounterHesilvino Francis MD Work Phone: cardiologyComment on above:AppointmentStart: 07-04-2022 End: 66-35-9054pouxlolrgaJRUQUCM ALGHOTHANIFacility:Y6Wpgiu: 06-26-2022 End: 85-60-4710wvmzwpjkdhZBNCFXA ALGHOTHANIFacility:R0Amgfa: 06-26-2022 ambulatoryDR DOCTOR MISCFacility:Y3Huaul: 05-55-0528dxrtrqjlaeOP DOCTOR MISC Facility:F2Lbudu: 05-08-2022 End: 25-12-7177xveiqgfulmNtjypv Braun Other [place] [employer] Other Start: 06-28-2571Ygnrwz outpatient visit 15 minutes [facility]ana [facility] ClinicStart: 05-01-2022 End: 53-08-9299Wggqqzz encounter procedureJerrod BELL [facility] start: 04-24-2022 End: 63-52-7975djyfctgxpxDC DOCTOR MISCFacility:D4Nzdkx: 04-10-2022 End: 82-86-1174qsgdlfqqucAZ DOCTOR MISCFacility:M8Kioud: 04-03-2022 End: 41-16-3003qwvtikibydYR BRAD HODGESFacility:O6Aafdj: 01-18-2022 End: 91-69-1236btwtsybumaPrsvdEsteban Marti MD Work Phone: Hematology/OncologyComment on above:History of DVT (deep vein thrombosis) (Primary Dx)Start: 01-18-2022 End: 84-83-9003Vrtwcny encounter Fabrizio Marti MD Work Phone: SANDUSKYStart: 01-02-2022 End: 76-91-1735csblxfpmysPS DOCTOR MISCFacility:I4Hraco: 69-65-3878Tadudefvt encounterMeaghan De La Rosa RN Work Phone: Hematology/OncologyComment on above:Results (Lab results)ResultsStart: 12-28-2021 End: 35-39-4768jgfvpljicpSqnirEsteban Marti MD Work Phone: Hematology/OncologyComment on above:Acute deep vein thrombosis (DVT) of distal end of left lower extremity (HCC) (Primary Dx)Start: 12-28-2021 End: 03-39-3000Kfysrsh encounter Fabrizio Marti MD Work Phone: SANDUSKYStart: 12-15-2021 End: 39-58-7475fogwehjiyoXC SILVANA LUNDBERGFacility:O8Tidhy: 11-29-2021 End: 91-46-4525qrakkwxicgNMHRRLR TUCKERFacility:O1Ngfqp: 11-23-2021 End: 06-32-5022ezfvbkzohmNL TONY BALLFacility:U4Kikvx: 10-04-2021 End: 11-95-9496bdmytvaxaeRTVVJDE ALGHOTHANIFacility:Y3Cdfrm: 09-22-2021 ambulatoryMOHAMAD ALGHOTHANIFacility:S3Yeowu: 09-21-2021 End: 09-33-8885whrzoqlnduNzgvcEsteban Marti MD Work Phone: Hematology/OncologyComment on above:Acute deep vein thrombosis (DVT) of distal end of left lower extremity (HCC) (Primary Dx)Start: 09-21-2021 End: 83-17-8816Awbsnmt encounter procedureKarthikeyan Marti MD Work Phone: SANDUSKYStart: 09-20-2021 End: 17-23-5902eiraxveczhLGSMQ PARKERFacility:H4Hyudx: 04-01-5844Xdmou abstractingKarthikeyan Marti MD Work Phone: Hematology/OncologyStart: 09-14-2021 End: 08-70-9900juogkxcjwbLMEEXWV ALGHOTHANIFacility:A2Ksqwk: 08-06-2020 End: 90-88-3858Jxukpuafhk RecurringSilvana Lundberg Work Phone: [facility]-Covid Vaccine Off Site Procedures DateProcedureProcedure DetailPerforming ClinicianStart: 35-03-8527Tyuon X-ray of left elbowSilvana Lundberg MD Work Phone: Start: 18-01-6281IJN of cervical spine without contrastSilvana Lundberg MD Work Phone: Start: 92-17-5827C-ray of cervical spineSilvana Lundberg MD Work Phone: Start: 67-40-5676Jijusw of hipPatrick BELL Start: 87-54-1695Redelgm microbial culturePHYSICIAN NO FAMILYStart: 65-69-4765Ecskilggu microbial culturePHYSICIAN NO FAMILYStart: 14-51-8858Omhvbgmuykekw of transfusion reactionPHYSICIAN NO FAMILYStart: 96-01-9752Ozuxw conduction studies 5-6 studiesEmjoesph Palacios APRN.SLITTER OPERATOR Work Phone: Start: 19-97-8660Oqeeveuos ventilation & perfusion imagingKellen Bryan MD Work Phone: Start: 99-47-2809Sbha tthrc r-t 2d w/wom-mode compl spec&colr Wilmer Bryan MD Work Phone: Start: 50-24-7239CXYM Anmol Francis MD Work Phone: Start: 25-73-3610Szquq count complete auto&auto difrntl wbcKarthikeyan Marti MD Work Phone: Start: 61-09-6561TxibjbhwjkfHefad Karamlou MD Work Phone: Start: 48-40-8835Dmehu flx w/rmvl of tumor polyp lesion snare tqWasatch [employer] Start: 64-63-4734Yqgqaldvy and biopsy of upper gastrointestinal tractWasatch VaporStix Start: 08-94-1196Ktlsllpny for malignant neoplasm of prostateJaquelinecia Tamika Other Start: 74-78-2174Dtiuaxejs of hip using fluoroscopic guidanceWasatch [employer]apor[employer] Comment on above:Rt. hip in OR-- 100% relief for 10 days Start: 54-03-2929Gbpqlaogx of hip using fluoroscopic guidanceWasatch [employer]aporSt[employer] Comment on above:100% relief for 4 days, slowly started coming back after 5 days back to where level of pain was before injectionStart: 48-20-4597Cemtqhd of sutureMarcia Lundberg Other Start: 91-93-7994Hlmi structure, excluding neck (body structure)[employer] Comment on above:L2 to L5, cyst removal, bone grafting Start: 32-90-1229Zfiwzhhex of sacroiliac joint using fluoroscopic guidance [employer] Comment on above:LeftStart: 18-21-1653Nrrjsdgna of sacroiliac joint using fluoroscopic guidanceWasatch [employer] Comment on above:Left SIJIStart: 02-16-2014 Radiofrequency denervation of spinal facet joint of lumbar vertebraHutrick BELL Comljmz on above:Right L2-A6Hjloi: 02-02-2014 Radiofrequency denervation of spinal facet joint of lumbar vertebraHutrick BELL Comment on above:Left L2-C5Ahxpv: 41-84-8238Esuvawk examination of patientJaquelinecia Lundberg Other Start: 47-70-3936Xggjtjrig of facet joint using fluoroscopic guidanceHuVeniti Comuykz on above:Bilateral L2-V7Lnmor: 10-20-2013 Injection of facet joint using fluoroscopic guidanceWasatch [employer]apor[employer] Comment on above:Biilateral L2-F6Blniv: 76-36-1689Gcjg structure, excluding neck (body structure)Jerrod BELL Comyxxc on above:bone graftingright hand surgery 11 Jerrod BELL Comment on above:1996Screening for malignant neoplasm of prostateJaquelinecia Tamika Other Viral screeningMarcia Tamika Other Plan of Treatment DateCare ActivityDetailAuthorStart: 91-30-6783Ixlfppro ScreeningDiabetes ScreeningUniversity Hospitals Portage Medical Centertart: 43-08-7764Ireyrozj ScreeningDiabetes Screening [facility] Centertart: 37-61-4665BPRJCWBO CANCER SCREENING DISCUSSIONPROSTATE CANCER SCREENING DISCUSSIONCleGuernsey Memorial Hospitaltart: 05-86-3516MFIVJTNR SCREEN DIABETES SCREENUniversity Hospitals Portage Medical Centertart: 43-29-2015Wbiugsmo ScreeningDiabetes ScreeningUniversity Hospitals Portage Medical Centertart: 71-40-9002XOAFBGCS SCREENDIABETES SCREEN [facility] Centertart: 96-10-2820DZBZQMYC SCREENDIABETES SCREENSalem [facility] Start: 72-15-6401Uxkterwew vaccinationInfluenza Vaccine (#1)[facility] Start: 12-15-2024 End: 80-81-8599ujeppvnhhx15/25/2025 10:40 AM EDT Visit (SP) Office Hematology/Oncology [address] [place] [address] Noe Elizondo MD [address] [place] [address] 1 year ROBBY / Willi ptHematology/OncologyComment on above:1 year ROBBY / Willi ptStart: 12-15-2024 End: 10-40-4272Dhabvvo encounter nekiyayxu90/25/2025 10:15 AM EDT Office Visit [facility] [address] [place] [address] [place] [address] 12/10-Lvm to confirm date & time of labsSlidell Memorial Hospital And Medical Center LaboratoryComment on above:12/10-Lvm to confirm date & time of labsStart: 12-10-2024 End: 21-81-0445Dxhw-2-Microglobulin [Mass/volume] in Serum or PlasmaB2 MICROGLOBULIN Lab Routine Monoclonal gammopathy Expected: 12/10/2024, Expires: 03/11/2025[place] ClinicComment on above:Expected: 12/10/2024, Expires: 03/11/2025Start: 12-10-2024 End: 97-60-7142Ufzcanb [Mass/volume] in Serum or PlasmaCALCIUM, TOTAL Lab Routine Monoclonal gammopathy Expected: 12/10/2024, Expires: 03/11/2025[place] ClinicComment on above:Expected: 12/10/2024, Expires: 03/11/2025Start: 12-10-2024 End: 22-57-9667BBY W Auto Differential panel - BloodCOMPLETE BLOOD COUNT AND DIFFERENTIAL Lab Routine Monoclonal gammopathy Expected: 12/10/2024, Expires: 03/11/2025[facility] Work Phone: Comment on above:Expected: 12/10/2024, Expires: 03/11/2025Start: 12-10-2024 End: 53-87-5282Fwfpzngrllmpu metabolic 2000 panel - Serum or PlasmaCOMPREHENSIVE METABOLIC PANEL Lab Routine Monoclonal gammopathy Expected: 12/10/2024, Expires: 03/11/2025[place] ClinicComment on above:Expected: 12/10/2024, Expires: 03/11/2025Start: 12-10-2024 End: 69-58-6539Cdaxuhi dehydrogenase [Enzymatic activity/volume] in Serum or PlasmaLACTATE DEHYDROGENASE Lab Routine Monoclonal gammopathy Expected: 12/10/2024, Expires: 03/11/2025[place] ClinicComment on above:Expected: 12/10/2024, Expires: 03/11/2025Start: 12-10-2024 End: 98-98-8643FMLIJFJXVD PROTEIN, SERUM (BLOOD)MONOCLONAL PROTEIN, SERUM (BLOOD) Lab Routine Monoclonal gammopathy Expected: 12/10/2024, Expires: 1 05/11/2024[place] ClinicComment on above:Expected: 12/10/2024, Expires: 03/11/2025Start: 12-10-2024 End: 22-61-0119Jtxaxblom [Mass/volume] in Serum or PlasmaPHOSPHORUS INORGANIC Lab Routine Monoclonal gammopathy Expected: 12/10/2024, Expires: 03/11/2025 [facility] CenterComment on above:Expected: 12/10/2024, Expires: 03/11/2025Start: 12-10-2024 End: 15-47-5491Uqheifd [Mass/volume] in Serum or PlasmaPROTEIN, TOTAL Lab Routine Monoclonal gammopathy Expected: 12/10/2024, Expires: 03/11/2025[place] ClinicComment on above:Expected: 12/10/2024, Expires: 03/11/2025Start: 12-10-2024 End: 32-81-6771PZTOVSY ELECTROPHORESIS SERUM W/INTERPPROTEIN ELECTROPHORESIS SERUM W/INTERP Lab Routine Monoclonal gammopathy Expected: 12/10/2024, Expires: 03/11/2025[place] ClinicComment on above:Expected: 12/10/2024, Expires: 03/11/2025Start: 12-10-2024 End: 13-93-4359Osfgm [Mass/volume] in Serum or PlasmaURIC ACID Lab Routine Monoclonal gammopathy Expected: 12/10/2024, Expires: 03/11/2025[facility] Comment on above:Expected: 12/10/2024, Expires: 03/11/2025Start: 12-03-2024 End: 55-02-2927nskpchlevgJsrjavsayf/OncologyComment on above:1 year ROBBY / Willi pt Start: 11-26-2024 End: 46-21-0948Hmqtdox encounter vxywkyrfo55/06/2025 9:30 AM EDT Office Visit [facility] [address] [place] [address] 1 year labNortMcLaren [facility] Comment on above:1 year labStart: 95-88-3547Twgbv-19 Vaccine ( season)Covid-19 Vaccine ()[facility] Centertart: 07-08-2024 End: 31-45-0019Lupwfkn encounter rkmjfjqui49/18/2025 10:00 AM EDT Office Visit Endocrinology [address] [id number] Alysha Emanuel MD [address] [place] [address] Follow UpEndocrinologyComment on above:Follow UpStart: 07-02-2024 End: 06-18-8307Jfwgnxs encounter /12/2025 1:40 PM EDT Appointment Radiology [address] [address] DXA-FOREARM SKELETONRadiologyComment on above:DXA-FOREARM SKELETONStart: 05-27-2024 End: 14-63-5304Prstxrx encounter nukithjcn90/04/2025 8:20 AM EST Appointment Radiology [address] [place] [address] DXA-FOREARM SKELETONRadiologyComment on above:DXA-FOREARM SKELETONStart: 98-77-9315Daqocxi referralTrihealth Mcc[facility] Work Phone: Start: 39-20-4601Tmdlp-19 Vaccine ( season) Covid-19 Vaccine ()[facility] Centertart: 01-01-2025Medicare Advantage Annual Wellness VisitMedicare Advantage Annual Wellness VisitUniversity Hospitals Portage Medical Centertart: 02-08-2024 End: 298693-qvuwehvgfficdr D3 [Mass/volume] in Serum or PlasmaVITAMIN D 25 HYDROXY Lab Routine Closed fracture of hip, left, with delayed healing, subsequent encounter High serum parathyroid hormone (PTH) Other hyperparathyroidism (HCC) Osteoporosis, unspecified osteoporosis type, unspecified pathological fracture presence Expected: 02/08/2024, Expires: leveland ClinicComment on above:Expected: 02/08/2024, Expires: 05/09/2024 Start: 02-08-2024 End: 34-23-3493HPBVMHXSOILR TESTOSTERONE, ADULT MALEBIOAVAILABLE TESTOSTERONE, ADULT MALE Lab Routine Closed fracture of hip, left, with delayed healing, subsequent encounter High serum parathyroid hormone (PTH) Other hyperparathyroidism (HCC) Osteoporosis, unspecified osteoporosis type, unspecified pathological fracture presence Expected: 02/08/2024, Expires: 05/09/2024[place] ClinicComment on above:Expected: 02/08/2024, Expires: 05/09/2024Start: 02-08-2024 End: 90-26-8751Kgflwylmd [Mass/volume] in Serum or PlasmaMAGNESIUM Lab Routine Closed fracture of hip, left, with delayed healing, subsequent encounter High serum parathyroid hormone (PTH) Other hyperparathyroidism (HCC) Osteoporosis, unspecified osteoporosis type, unspecified pathological fracture presence Expected: 02/08/2024, Expires: 05/09/2024[place] ClinicComment on above: Expected: 02/08/2024, Expires: 05/09/2024Start: 02-08-2024 End: 61-82-2509Vzmazrejcx.intact [Mass/volume] in Serum or PlasmaPTH INTACT Lab Routine Closed fracture of hip, left, with delayed healing, subsequent encounter High serum parathyroid hormone (PTH) Other hyperparathyroidism (HCC) Osteoporosis, unspecified osteoporosis type, unspecified pathological fracture presence Expected: 02/08/2024, Expires: 05/09/2024[place] ClinicComment on above:Expected: 02/08/2024, Expires: 05/09/2024Start: 02-08-2024 End: 30-87-0127Pcftq function 2000 panel - Serum or PlasmaRENAL FUNCTION PANEL Lab Routine Closed fracture of hip, left, with delayed healing, subsequent enco unter High serum parathyroid hormone (PTH) Other hyperparathyroidism (HCC) Osteoporosis, unspecified osteoporosis type, unspecified pathological fracture presence Expected: 02/08/2024, Expires: 5C[facility] ClinicComment on above:Expected: 02/08/2024, Expires: 05/09/2024Start: 70-28-4769Muoty-19 Vaccine ( season)Covid-19 Vaccine ()[facility]: 63-13-0975Gwamfcorh vaccinationUniversity Hospitals Portage Medical Centertart: 12-14-2023 End: 06-54-5234Mafqhjk encounter ajqbccfyt06/23/2024 1:00 PM EDT Office Visit Endocrinology [address] [place], [place] [id number] Alysha Emanuel MD [address] [place] [address] Pt needs appt with me please or Dr Domo Garcia. Thank you so muchEndocrinology Comment on above:Pt needs appt with me please or Dr Domo Garcia. Thank you so muchStart: 12-04-2023 End: 52-00-9650uuasxqkhut08/13/2024 9:30 AM EDT Visit (SP) Office Hematology/Oncology [address] [place] [address] [address] [place], [place] [phone] Karthikeyan Marti MD [address] [place] [phone] 6 month labHematology/OncologyComment on above:6 month labStart: 11-29-2023 End: 28-17-5018Hnmqnzh encounter pazfdwutx92/08/2024 9:45 AM EDT Office Visit [facility] [place] [address] [place] [address] [place] [address] [place], [place] [phone] Folow up- Delayed union of closed fracture of hipOrthopaedics RochesterComment on above:Folow up- Delayed union of closed fracture of hip Start: 11-28-2023 End: 61-96-8846ksrlzpepoj84/07/2024 10:00 AM EDT Visit (SP) Office Hematology/Oncology [address] [place] [address] [place] [address] Karthikeyan Marti MD [address] [facility] [place] [address] 6 month labHematology/OncologyComment on above:6 month labStart: 11-21-2023 End: 14-36-3719Urabqxv encounter /31/2024 8:30 AM EDT Office Visit [facility] [address] [place] [address] [place] [address] 6 month labNortMcLaren [facility] Comment on above:6 month labStart: 21-53-2990Jofcr-19 Vaccine ( season)Covid-19 Vaccine ( season)[facility]: 12-22-2022 Influenza vaccinationUniversity Hospitals Portage Medical Centertart: 19-88-9124Xrnlssvti B core antibody measurementKettering Health Washington Townshiptart: 80-96-8924NgzqeuqrcKettering Health Washington Townshiptart: 53-55-6763Yopupwx CultureAerobic CultureKettering Health Washington Townshiptart: 69-60-6487Ejlsniden CultureAnaerobic CultureKettering Health Washington Townshiptart: 42-17-0251Urrfgwwizkc observation [Identifier] in Unspecified specimen by Gram stainGram StainBarnesville Hospital Start: 18-16-3568LbdeorsppKettering Health Washington Townshiptart: 10-17-2022 End: 12-17-2022 reactive protein [Mass/volume] in Serum or PlasmaC-REACTIVE PROTEIN (CRP) Lab Routine Ankylosing spondylitis of multiple sites in spine (HCC) Expected: 10/17/2022, Expires: 12/17/2022[facility] Work Phone: Comment on above:Expected: 10/17/2022, Expires: 12/17/2022Start: 10-17-2022 End: 78-57-0035Sfkrbnvmyom sedimentation rateSED RATE [facility] Lab Routine Ankylosing spondylitis of multiple sites in spine (HCC) Expected: 10/17/2022, Expires: 12/17/2022[facility] Work Phone: Comment on above:Expected: 10/17/2022, Expires: 12/17/2022Start: 10-06-2022 End: 88-82-5508Lyloy tocopherol [Mass/volume] in Serum or [facility] Work Phone: Comment on above:Expected: 10/06/2022, Expires: 12/06/2022Start: 10-06-2022 End: 37-37-6734PUUTHZ [facility] Work Phone: Comment on above:Expected: 10/06/2022, Expires: 12/06/2022Start: 10-06-2022 End: 67-71-7763Dufplpupls A1c in [facility] Work Phone: Comment on above:Expected: 10/06/2022, Expires: 12/06/2022Start: 10-06-2022 End: 36-75-5888PYZJCSRUTVWFPD SCREEN, [facility] Work Phone: Comment on above:Expected: 10/06/2022, Expires: 12/06/2022Start: 10-06-2022 End: 81-52-1390DYCEL/YOEL KEANE,[facility] Work Phone: Comment on above:Expected: 10/06/2022, Expires: 12/06/2022Start: 10-06-2022 End: 57-04-5070Eluzishubl [Mass/volume] in Serum or [facility] Work Phone: Comment on above:Expected: 10/06/2022, Expires: 12/06/2022Start: 10-06-2022 End: 59-57-9801TMOMCGN B1 (THIAMINE), WHOLE BLOODUniversity Hospitals [facility] Work Phone: Comment on above:Expected: 10/06/2022, Expires: 12/06/2022Start: 10-06-2022 End: 40-89-6272Rgar [Mass/volume] in Serum or PlasmaUniversity Hospitals Conneaut Medical Center Work Phone: Comment on above:Expected: 10/06/2022, Expires: 12/06/2022Start: 06-26-9156Qrlxbm Wellness Visit (AWV)Annual Wellness Visit (AWV)[facility]ENTERStart: 34-28-3202GSKECVMIEC ASSESSMENTDEPRESSION ASSESSMENTUniversity Hospitals Port[facility] Medical Centertart: 12-28-2021 End: 42-01-6370Iqmbgd D-dimer FEU [Mass/volume] in Platelet poor plasmaD-DIMER Lab Routine Acute deep vein thrombosis (DVT) of distal end of left lower extremity (HCC) Expected: 12/28/2021, Expires: 02/27/2022[facility] Work Phone: Comment on above:Expected: 12/28/2021, Expires: 02/27/2022tart: 12-22-2021 End: 59-56-3329HAM RESISTANCEAPC RESISTANCE Lab Routine Acute deep vein thrombosis (DVT) of distal end of left lower extremity (HCC) Expected: 12/22/2021 (Approximate), Expires: 02/21/2022[facility] Work Phone: Comment on above:Expected: 12/22/2021 (Approximate), Expires: 02/21/2022tart: 12-22-2021 End: 02-21-2022 2 GPI IGG & IGMB 2 GPI IGG & IGM Lab Routine Acute deep vein thrombosis (DVT) of distal end of left lower extremity (HCC) Expected: 12/22/2021 (Approximate), Expires: 02/21/2022[facility] Work Phone: Comment on above:Expected: 12/22/2021 (Approximate), Expires: 02/21/2022tart: 12-22-2021 End: 99-97-1992Ekpuiqxbkou IgG and IgM panel - SerumANTI-CARDIOLIPIN AB Lab Routine Acute deep vein thrombosis (DVT) of distal end of left lower extremity (HCC) Expected: 12/22/2021 (Approximate), Expires: 02/21/2022[facility] Work Phone: Comment on above:Expected: 12/22/2021 (Approximate), Expires: 02/21/2022tart: 12-22-2021 End: 90-72-4637QVW W Auto Differential panel - BloodCBC + DIFF Lab Routine Acute deep vein thrombosis (DVT) of distal end of left lower extremity (HCC)Expected: 12/22/2021 (Approximate), Expires: 02/21/2022[facility] Work Phone: Comment on above:Expected: 12/22/2021 (Approximate), Expires: 02/21/2022tart: 12-22-2021 End: 12-40-5655Cgqyzqimeqgsl metabolic 2000 panel - Serum or PlasmaCOMP METABOLIC PANEL Lab Routine Acute deep vein thrombosis (DVT) of distal end of left lower extremity (HCC) Expected: 12/22/2021 (Approximate), Expires: 02/21/2022[facility] Work Phone: Comment on above:Expected: 12/22/2021 (Approximate), Expires: 02/21/2022tart: 12-22-2021 End: 34-45-5473Y3 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 [Identifier] in Blood or Tissue by Molecular genetics method NominalPROTHROMBIN GENE PCR Lab Routine Acute deep vein thrombosis (DVT) of distal end of left lower extremity (HCC) Expected: 12/22/2021 (Approximate), Expires: 02/21/2022[facility] Work Phone: Comment on above:Expected: 12/22/2021 (Approximate), Expires: 02/21/2022tart: 04-08-7015Tzechxovh [facility] ClinicStart: 12-22-2021 End: 00-51-6665Ryasflr dehydrogenase [Enzymatic activity/volume] in Serum or PlasmaLD LACTATE DEHYDRO Lab Routine Acute deep vein thrombosis (DVT) of distal end of left lower extremity (HCC) Expected: 12/22/2021 (Approximate), Expires: 02/21/2022[facility] Work Phone: Comment on above:Expected: 12/22/2021 (Approximate), Expires: 02/21/2022tart: 12-22-2021 End: 10-29-0915VCPRE ANTICOAG PLLUPUS ANTICOAG PL Lab Routine Acute deep vein thrombosis (DVT) of distal end of left lower extremity (HCC) Expected: 12/22/2021 (Approximate), Expires: 02/21/2022[facility] Work Phone: Comment on above:Expected: 12/22/2021 (Approximate), Expires: 02/21/2022tart: 41-53-7452JxiisbnofjqFPGGUJXCKFRGqvnjwonr ClinicStart: 17-34-0982ZCAKRGDUBW CANCER SCREENINGCOLORECTAL CANCER SCREENINGSalem Regional Medical Center Start: 02-93-1904Gtemsipkt for malignant neoplasm of colonUniversity Hospitals Portage Medical Centertart: 43-75-0011PWA Vaccine (1 - 1-dose 60+ series)RSV Vaccine (1 - 1-dose 60+ series) [facility]: 62-56-7026WHH Vaccine (1 - Risk 60-74 years 1-dose series)RSV Vaccine (1 - Risk 60-74 years 1-dose series)[facility]: 06-87-0126GJRWCEYS SCREENDIABETES SCREENUniversity Hospitals [facility] Medical Centertart: 09-05-2015 PROSTATE CANCER SCREENING DISCUSSIONPROSTATE CANCER SCREENING DISCUSSION [facility]: 18-65-6536Zhosmgoq specific antigen measurementProstate Cancer Screening DiscussionUniversity Hospitals Port[facility] Medical Centertart: 25-94-4338EBOWZQJXTXRN (2 - PCV)PNEUMOCOCCAL (2 - PCV)[facility]: 16-52-1603Mzhityijwntg vaccinationUniversity Hospitals Portage Medical Centertart: 88-53-1370Wwcrvzdivgtd Vaccine: 50+ (2 of 2 - PCV)Pneumococcal Vaccine: 50+ (2 of 2 - PCV)[facility]: 01-12-2015 Urine microalbumin profileDTaP,Tdap,Td Vaccine (1 - Tdap)[facility]: 69-74-9644Yibdmiwb vaccine (1 of 2)Shingles vaccine (1 of 2)[facility]: 88-34-5383BKRYABPB VACCINE (1 of 2)SHINGRIX VACCINE (1 of 2) [facility]: 64-35-3319UTUUMYHXB (FIT-DNA)COLOGUARD (FIT-DNA)[facility]: 15-25-9985IhuapttuwmzMXLDBTTPSDFFmhmnndzg ClinicStart: 2005 COLORECTAL CANCER SCREENINGCOLORECTAL CANCER SCREENINGUniversity Hospitals [facility] Medical Centertart: 61-01-2478WU COLONOGRAPHYCT COLONOGRAPHYUniversity Hospitals Port[facility] Medical Centertart: 93-16-5323HYWPT OCCULT BLOODFECAL OCCULT BLOODUniversity Hospitals [facility] Medical Centertart: 17-98-7127Herhwfyl specific antigen measurementProstate Cancer Screening DiscussionUniversity Hospitals Port[facility] Medical Centertart: 10-14-4485Xeuddlnsf for malignant neoplasm of colonB[facility] Start: 27-27-7468PKFQCMWOHBVODXIWIOVOYVRBDFNomzdbhkt ClinicStart: 2000 Lipid panelLipidsValley Health: 24-64-3006Jhbds 1996 panel - Serum or PlasmaLipid ScreeningUniversity Hospitals Portage Medical Centertart: 12-65-0029Hxslj panelLipid ScreeningCleveland Clinic [facility] Hospitalrt: 20-83-4439NNYZZ SCREENLIPID SCREENCleveland Clinic [facility] Hospitalrt: 67-10-3812UOzM/Tdap/Td vaccine (1 - Tdap)DTaP/Tdap/Td vaccine (1 - Tdap)[facility]: 19-06-1041YRCKUGAR VACCINE (1 of 2)SHINGRIX VACCINE (1 of 2)[facility]: 08-67-2075Ugile microalbumin profile [facility]: 17-10-1253Gbbrrlh ScreeningAnxiety ScreeningUniversity Hospitals [facility] Medical Centertart: 40-49-0644VDYTBIWGO C SCREENINGHEPATITIS C SCREENINGUniversity [facility]als [facility] Centertart: 35-63-3870Ktcwnlrts C screeningBON [facility] Medical Centerart: 22-47-3561VZN SCREENINGHIV SCREENINGUniversity Hospitals [facility] Centertart: 61-47-0191IKR screeningHIV ScreeningUniversity Hospitals [facility] Medical Centertart: 62-02-3991RDX screeningHIV screen [facility] SYSTEMStart: 15-34-2776Tyqctyknnc ScreenDepression ScreenBON [facility]: 70-42-9826PWVJUMSWGYJJ (1 - PCV)PNEUMOCOCCAL (1 - PCV)[facility]: 01-01-0798OVEBQ-19 VACCINE (#1)COVID-19 VACCINE (#1) [facility] RESISTANCEAPC RESISTANCE Lab Routine Acute deep vein thrombosis (DVT) of distal end of left lower extremity ([facility]) 12/28/2021 2:59 PM [facility] Work Phone: aPTT in Platelet poor plasma by Coagulation assay ACTIVATED PTT Lab Routine Acute deep vein thrombosis (DVT) of distal end of left lower extremity ([facility]) 12/28/2021 2:59 PM [facility] Work Phone: B 2 GPI IGG & IGMB 2 GPI IGG & IGM Lab Routine Acute deep vein thrombosis (DVT) of distal end of left lower extremity ([facility]) 12/28/2021 2:59 PM [facility] Work Phone: Bacteria identified in Unspecified specimen by Aerobe cultureBarnesville HospitalBacteria identified in Unspecified specimen by Anaerobe cultureBarnesville HospitalBETA 2 GLYCOPROTEIN, IGGBETA 2 GLYCOPROTEIN, IGG Lab Routine Acute deep vein thrombosis (DVT) of distal end of left lower extremity ([facility]) 12/28/2021 2:59 PM EDT [facility] Work Phone: BETA 2 GLYCOPROTEIN, IGMBETA 2 GLYCOPROTEIN, IGM Lab Routine Acute deep vein thrombosis (DVT) of distal end of left lower extremity ([facility]) 12/28/2021 2:59 PM [facility] Work Phone: CALCIUM, 24 HR URINECALCIUM, 24 HR URINE Lab Routine Closed fracture of hip, left, with delayed healing, subsequent encounter High serum parathyroid hormone (PTH) Other hyperparathyroidism (HCC) Osteoporosis, unspecified osteoporosis type, unspecified pathological fracture presence Ordered: 02/08/2024[facility] CenterComment on above:Ordered: 02/08/2024 Cardiolipin IgA Ab [Units/volume] in Serum by ImmunoassayCARDIOLIPIN IGA ABS Lab Routine Acute deep vein thrombosis (DVT) of distal end of left lower extremity ([facility]) 12/28/2021 2:59 PM [facility] Work Phone: CARDIOLIPIN IGG ABSCARDIOLIPIN IGG ABS Lab Routine Acute deep vein thrombosis (DVT) of distal end of left lower extremity ([facility]) 12/28/2021 2:59 PM [facility] Work Phone: Cardiolipin IgG and IgM panel - SerumANTI-CARDIOLIPIN AB Lab Routine Acute deep vein thrombosis (DVT) of distal end of left lower extremity ([facility]) 12/28/2021 2:59 PM [facility] Work Phone: CARDIOLIPIN IGM ABSCARDIOLIPIN IGM ABS Lab Routine Acute deep vein thrombosis (DVT) of distal end of left lower extremity ([facility]) 12/28/2021 2:59 PM [facility] Work Phone: End: 26-68-8931AVMPGGUJBLGZKUR EXERCISE TESTCARDIOPULMONARY EXERCISE TEST PFT Routine SOB (shortness of breath) 1 Occurrences starting 11/17/2022 until 12/17/2023[facility] Work Phone: comment on above:1 Occurrences starting 11/17/2022 until 4Citrate [Mass/time] in 24 hour UrineCITRATE 24 HR URINE Lab Routine Closed fracture of hip, left, with delayed healing, subsequent encounter High serum parathyroid hormone (PTH) Other hyperparathyroidism (HCC) Osteoporosis, unspecifiedosteoporosis type, unspecified pathological fracture presence Ordered: 02/08/2024[facility] ClinicComment on above:Ordered: 02/08/2024 CREATININE, 24 HOUR URINECREATININE, 24 HOUR URINE Lab Routine Closed fracture of hip, left, with delayed healing, subsequent encounter High serum parathyroid hormone (PTH) Other hyperparathyroidism (HCC) Osteoporosis, unspecified osteoporosis type, unspecified pathological fracture presence Ordered: 02/08/2024[facility] ClinicComment on above:Ordered: 02/08/2024 End: 66-18-5765NTF-FOREARM SKELETONDXA-FOREARM SKELETON Radiology Routine Closed fracture of hip, left, with delayed healing, subsequent encounter High serum parathyroid hormone (PTH) 1 Occurrences starting 02/08/2024 until 03/09/2025 [facility] Work Phone: Comment on above:1 Occurrences starting 02/08/2024 until 03/09/2025 End: 87-92-8056FMR COMPLETEECG COMPLETE ECG Routine POTS (postural orthostatic tachycardia syndrome) 1 Occurrences starting 08/16/2022 until 08/17/2023 [facility] Work Phone: Comment on above:1 Occurrences starting 08/16/2022 until 08/17/2023 End: 94-06-1973VbcasliizlasewkvRSBA Cardiology Routine Exertional dyspnea 1 Occurrences starting 08/16/2022 until 08/17/2023[facility] Work Phone: comment on above:1 Occurrences starting 08/16/2022 until 08/17/2023 End: 48-02-0463ULP(NEURO/NI)EMG(NEURO/NI) EMG Routine Disturbance of skin sensation 1 Occurrences starting 10/06/[address] [place] [address] Work Phone: Comment on above:1 Occurrences starting 10/06/2022 until 10/07/2023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 [Identifier] in Blood or Tissue by Molecular genetics method NominalPROTHROMBIN GENE PCR Lab Routine Acute deep vein thrombosis (DVT) of distal end of left lower extremity (HCC) 12/28/2021 2:59 PM [facility] Work Phone: FOUR EXTRA LT BLUE MAN COAG TUBESFOUR EXTRA LT BLUE MAN COAG TUBES Lab Routine Acute deep vein thrombosis (DVT) of distal end of left lower extremity (HCC) 12/28/2021 2:59 PM [facility] Work Phone: LUPUS ANTICOAG PLLUPUS ANTICOAG PL Lab Routine Acute deep vein thrombosis (DVT) of distal end of left lower extremity (HCC) 12/28/2021 2:59 PM [facility] Work Phone: LUPUS PANELLUPUS PANEL Lab Routine Acute deep vein thrombosis (DVT) of distal end of left lower extremity (HCC) 12/28/2021 2:59 PM [facility] Work Phone: End: 56-58-9710XNB CARDIAC MORPH FUNC WO/W IVCONMRI CARDIAC MORPH FUNC WO/W IVCON Radiology Routine Dilated cardiomyopathy (HCC) 1 Occurrences starting 10/17/2022 until 11/16/2023[facility] Work Phone: comment on above:1 Occurrences starting 10/17/2022 until 11/16/2023 End: 68-76-6588ZFQ CARDIAC VELOCITY FLOW MAPMRI CARDIAC VELOCITY FLOW MAP Radiology Routine Dilated cardiomyopathy (HCC) 1 Occurrences szjugago99/27/2023 until 11/16/2023[facility] Work Phone: comwzwm on above:1 Occurrences starting 10/17/2022 until 11/16/2023OUTSIDE VENDOR CARDIAC OUTPATIENT EXTENDED RHYTHM RECORDING (WITHOUT TELEMETRY)OUTSIDE VENDOR CARDIAC OUTPATIENT EXTENDED RHYTHM RECORDING (WITHOUT TELEMETRY) Holter Routine Lightheadedness POTS (postural orthostatic tachycardia syndrome) Exertional dyspnea Ordered: 08/16/2022[facility] Work Phone: comment on above:Ordered: 08/16/2022Oxalate [Mass/time] in 24 hour UrineOXALATE 24 HR URINE Lab Routine Closed fracture of hip, left, with delayed healing, subsequent encounter High serum parathyroid hormone (PTH) Other hyperparathyroidism (HCC) Osteoporosis, unspecified osteoporosis type, unspecified pathological fracture presence Ordered: 02/08/2024[facility] CenterComment on above:Ordered: 02/08/2024atient referral [facility] Work Phone: pt panel - Platelet poor plasma by Coagulation assay PROTHROMBIN TIME/PT Lab Routine Acute deep vein thrombosis (DVT) of distal end of left lower extremity (HCC) 12/28/2021 2:59 PM [facility] Work Phone: End: 32-92-0245Cshvbdrdy ventilation & perfusion imagingNM LUNG VENT / PERF VQ Radiology Routine Exertional dyspnea Other secondary pulmonary hypertension ( HCC) 1 Occurrences starting 08/16/2022 until 09/15/2023[facility] Work Phone: Comment on above:1 Occurrences starting 08/16/2022 until 09/15/2023Sodium [Moles/time] in 24 hour UrineSODIUM 24 HR URINE Lab Routine Closed fracture of hip, left, with delayed healing, subsequent encounter High serum parathyroid hormone (PTH) Other hyperparathyroidism (HCC) Osteoporosis, unspecified osteoporosis type, unspecified pathological fracture presence Ordered: 02/08/2024[facility] CenterComment on above:Ordered: 02/08/2024 STONE PANEL URINESTONE PANEL URINE Lab Routine Closed fracture of hip, left, with delayed healing, subsequent encounter High serum parathyroid hormone (PTH) Other hyperparathyroidism (HCC) Osteoporosis, unspecified osteoporosis type, unspecified pathological fracture presence Ordered: 02/08/2024[facility] Comment on above:Ordered: 02/08/2024Urate [Mass/time] in 24 hour UrineURIC ACID 24 HR UR Lab Routine Closed fracture of hip, left, with delayed healing, subsequent encounter High serum parathyroid hormone (PTH) Other hyperparathyroidism (HCC) Osteoporosis, unspecified osteoporosis type, unspecified pathological fracture presence Ordered: 02/08/2024[facility] Comment on above:Ordered: 02/08/2024US Heart TransthoracicBarnesville HospitalXR Cervical spine Views W flexion and W extensionBarnesville HospitalXR Elbow - left GE 3 ViewsBarnesville HospitalXR Pelvis and Hip - left AP and Lateral frogXR HIP GENERAL 3V PELV/AP/LAT LEFT Radiology Routine Pain 09/27/2023 9:42 AM [facility] Work Phone: End: 73-39-1093IR Pelvis and Hip - left AP and Lateral frogXR HIP GENERAL 3V PELV/AP/LAT LEFT Radiology Routine Closed fracture of hip, left, with delayed healing, subsequent encounter 1 Occurrences starting 11/28/2023 until 12/27/2024 [facility] Work Phone: comment on above:1 Occurrences starting 11/28/2023 until 12/27/2024XR Pelvis and Hip - left AP and Lateral frogXR HIP GENERAL 3V PELV/AP/LAT LEFT Radiology Routine Closed fracture of hip, left, with delayed healing, subsequent encounter 11/29/2023 9:03 AM EDTCleveland ClinicCleveland ClinicCleOur [facility] Immunizations Immunization DateImmunizationNotesCare [id number]-65 (PFIZER) [phone] 12Y and olderSilvana Lundberg MD Work Phone: [facility]11-14-2024influenza, injectable, madin seven canine kidney, preservative freeSilvana Lundberg MD Work Phone: [facility]11-14-2024RSV, preF3, adj, pfSilvana Lundberg MD Work Phone: [facility]11-14-2024influenza virus vaccine, unspecified formulationMoriahalie Dillon [facility] 16-91-1159AGIED-19 Pfizer (Pediatric)Silvana Lundberg Other [facility]11-21-2022influenza virus vaccine, split virus (incl. purified surface antigen)Silvana Lundberg Other [employer] Other 561964-48-1771rjawvzvfe virus vaccine, unspecified formulationHutricberna BELL [facility]11-21-2022influenza, injectable, quadrivalent, preservative free [facility]11-21-2022SARS-CoV-2 (COVID-19) mRNAMUL.ORD!f23661Zeeyozi BELL [facility]01-16-2022SARS-CoV-2 (COVID-19) mRNA BNT-162b2 vaxHuInvoy Technologiesberna BELL [facility]11-20-2021influenza virus vaccine, split virus (incl. purified surface antigen)Silvana Lundberg Other [employer] Other [id number] virus vaccine, unspecified formulationPagilma BELL [facility]11-20-2021influenza, injectable, quadrivalent, preservative freeKarthikeyan Marti MD Work Phone: [facility] CenterNgbgho76-13-4588LHLLP-30 mRNA,[id number] (Pfizer)Silvana Lundberg Work Phone: [facility] CenterUyeuar76-56-8474XTXHD-61 vaccine (NORTH) Karthikeyan Marti MD Work Phone: [facility] CenterKslgrl94-42-5054HGUGC-14 mRNA,IGX478t3 (Pfizer)Silvana Lundberg Work Phone: [facility] CenterLtpaac98-71-5257PACVG-88 vaccine ([employer]) Karthikeyan Marti MD Work Phone: [facility] CenterOyeyax23-44-1783jvkvffyho virus vaccine, split virus (incl. purified surface antigen)Silvana Lundberg Other [facility] [employer] Other [id number] virus vaccine, unspecified formulationPHYSICIAN NO [facility]10-09-2019 influenza virus vaccine, split virus (incl. purified surface antigen)Silvana Lundberg Other [facility] [employer] Other [id number] virus vaccine, unspecified formulationPHYSICIAN NO [facility]09-21-2015tetanus and diphtheria toxoids, adsorbed, preservative free, for adult use (5 Lf of tetanus toxoid and 2 Lf of diphtheria toxoid)Silvana Lundberg Other [facility]04-23-2015 pneumococcal polysaccharide vaccine, 23 valentKarthikeyan Marti MD Work Phone: [facility] CenterNEGATED: Highlighted row has not occurred!08-15-6013eylsetyguhbl polysaccharide vaccine, 23 Abril Lundberg Other [place] [employer] Other Payers DatePayer CategoryPayerPolicy ID2022MedicareHUMANA MEDICARE HUMANA MEDICARE PPO [id number] 2021-Present [phone] [address] [address] [place] [address] [id number] 2022Medicare [id number] 2022Medicare (Managed Care)[facility] [id number] 2..1.859392.3.57[id number] 2..1.602150.3.57[id number] 2..1.517904.3.579.2.15145-93-4886Rconcge4241551 2..1.497610.3.579.2.91063-98-5604Mujersc7150182 2..1.316761.3.579.2.05537-30-0768Ilfjtuc6602617 2.16.840.1.289852.3.579.2.60849-31-0231Nvfqlng5034501 2.16.840.1.792685.3.579.2.02110-32-9301Mmzeuem0007144 2.16.840.1.324034.3.579.2.85504-95-9501Qcvlvpe8499774 2.16.840.1.123452.3.579.2.77226-86-9300Dhjfetd0123199 2.16.840.1.768152.3.579.2.06471-22-1808Zzmngff7270827 2.16.840.1.832135.3.579.2.54463-43-3677Qgbfdew6183146 2.16.840.1.403278.3.579.2.99077-64-6901Rcktvgr5280134 2.16.840.1.545762.3.579.2.36034-24-3864Tfexhwb4022522 2.16.840.1.637095.3.579.2.00989-22-5665Mvoncly4455877 2.16.840.1.573421.3.579.2.90020-17-4838Zvqgcrm8380169 2.16.840.1.870195.3.579.2.98691-95-0265Ufibiow1217082 2.16.840.1.515006.3.579.2.65108-92-8712Jhhlxbt8127803 2.16.840.1.007558.3.579.2.85929-64-0391Uyltsrl2276527 2.16.840.1.860261.3.579.2.207107-39-4838Wklowii2839757 2.16.840.1.987689.3.579.2.391977-83-9767Khqukxn64222920 2..1.466661.3.579.2.56996-56-2007Yxcstgb35537264 2..1.971039.3.579.2.24458-75-2781Etsjszg19475693 2..1.878860.3.579.2.73483-09-0363Qbzupgy83572461 2..1.430268.3.579.2.53654-38-7948Nsdcmrc00703219 2..1.624217.3.579.2.54457-46-5550Tyl[facility] [id number] 24grnnv5-4jb2-9ou3-5an9-raf4kh26g16q49-17-7213Orqs-wlh e772483b-76ba-4835-98e5-269e1b897eceMedicare8Q20FC2JX19 11403t1t-6o06-0547-p2p[id number] 2g6773p8-75mx-12kn-02g8-x2l7r2n1t32zSwhkwuxD96762750-41 58702100-d726-2w1m-fmf6-84e336r265c8Xlnfuky1514951 2..1.934444.3.579.2.593 Afjlxhy67201782 ..1.614653.3.579.2.359Xakxmti17530600 ..1.491651.3.579.2.895Solaola06495440 ..1.101286.3.579.2.531 Social History DateTypeDetailFacilityTobacco smoking status NHISUnknown if ever smokedLancaster Municipal Hospital CtrStart: 46-85-4087Gui Assigned At [facility] Hospitaltart: 12-28-2021 End: 11-13-1745Bbateav smoking status NHISEx-smokerSalem Regional Medical CenterHistory of tobacco useCigarette SmokerUniversity Hospitals Portage Medical Centertart: 09-16-2021 End: 82-29-5834Yndqxnw intakeCurrent non-drinker of alcohol (finding)[facility] Centertart: 46-53-1683Ofc Assigned At BirthNot on fileUniversity Hospitals Portage Medical Centertart: 09-11-2021 End: 40-99-4565Jrhchfpy to SARS-CoV-2 (event)Not sureSalem Regional Medical CenterHistory of tobacco useCurrent smokerUniversity Hospitals Portage Medical Centertart: 12-28-2021 End: 72-43-8492Ojleyrtyxk smoked current (pack per day) - Lzbhppnt4Fdcjebmnd ClinicHistory of tobacco usePassive smokerUniversity Hospitals Portage Medical Centertart: 12-28-2021 End: 55-42-7434Yyiikpl use and exposureSmokeless tobacco non-userUniversity Hospitals Portage Medical Centertart: 59-73-6284Iqleeym Commentquit 1998[facility] Medical Centertart: 08-29-2022 End: 04-34-3015Nht Assigned At BirthMalAkron Children's HospitalTobacco smoking status NHISTobacco smoking consumption unknownBON [facility] [employer] Work Phone: start: 61-91-5674Shkzt Depression Screening Assessment 2Cleveland ClinicStart: 07-06-2023 End: 50-42-7187Sqzpecb smoking status NHISNever smoked tobacco (finding) [facility] Washington Townshiptart: 05-13-2024 End: 33-92-3091RgzHovn (finding)[facility] Medical Equipment Procedure CodeEquipment CodeEquipment Original TextEquipment IdentifierDates Graft Infuse 18mm Large Ii Bovine Collagen Rhbmp-2 26mm Bone Absorbable - [id number]: 26-32-1996Izhxppaqz Chika 0d Small Titanium Andrew Spine - [id number]: 64-74-8916Gghxzbgvsj Mastergraft Bone Graft Matrix Block Extension Void Filler 10ml - [id number]: 09-01-2016 Upc-Hh-C-Kind Implant - [id number]: 04-21-0763Zxbkqfq on above: Description: g7 osseoti acetabular shell 4 hole mwwbrrmxfvOal-Pb-D-Kind Implant - [id number]: 18-04-8040Pzxbyxm on above:Description: g7 acetabular rvuydThx-Yj-T-Kind Implant - [id number]: 12-01-2015 Comment on above:Description: g7 acetabular liner ubsjsqgQgj-Oe-W-Kind Implant - [id number]: 13-13-8055Hpahros on above:Description: taperloc complete primary femoral porous coated stem reduced distal high offset type 1 taperCage Spnl Tri 8x23mm 6d 11mm - [id number]: 53-64-5322Eeqcu Chika 3 Titanium Set Julius Spine - [id number]: 64-28-1832Sdqz G7 40mm Biolox Delta Femoral Hip - [id number]: 76-23-2681Enwofra on above:Description: ceramic headSleeve G7 -6mm Offset Taper Biolox Delta Option Titanium Centering Type 1 - [id number]: 70-61-5646Yfgulyd on above:Description: taper adapterRod Chika 3 6mm 480mm Spinal - [id number]: 80-29-9051Wdoqa Chika 3 7.5mm Titanium 40mm Bone Polyaxial Spine Thoracolumbar - [id number]: 57-22-9397Gfhjs Chika 3 7.5mm Titanium 45mm Bone Polyaxial Spine Thoracolumbar - [id number]: 71-35-5896Nzlz Chika 8.5mm 70mm Spinal Polyaxial Ilium - [id number] Start: 50-43-1950Evbho Chika 3 6.5mm Titanium 45mm Bone Polyaxial Spine Thoracolumbar - [id number]: 66-67-3871YMF WITH TERIPARATIDE PENS ONCE TIMES [id number]: 03-31-2024 Goals DatePatient GoalDesired Activity/State Functional Status JbwzLftagobqtuYmpcviYlbzopym54-90-6479Qtuxbbbbee StatusN/AExec[facility] of [facility]09-03-2024Functional StatusN/AFOhioHealth [facility]03-25-2024Functional StatusN/AExec[facility] of [facility]01-09-2023Functional StatusN/AExec[facility] of [facility]07-13-2017Are you deaf, or do you have serious difficulty hearingNo 11/02/2016 8:30 AM EDT Anna RodriguezRn)(Hist), RN [facility] HospitalEcxlbj44-13-3988Dor you blind, or do you have serious difficulty seeing, even when wearing glassesNo 11/02/2016 8:30 AM EDT Anna RodriguezRn)(Hist), RN [facility]07-13-2017Do you have serious difficulty walking or climbing stairsYes 11/02/2016 8:30 AM EDT Anna RodriguezRn)(Hist), RN [facility]07-13-2017Do you have difficulty dressing or bathingYes 11/02/2016 8:30 AM EDT Anna RodriguezRn)(Hist), RN [facility] 63-57-3713Bqloipb of a physical, mental, or emotional condition, do you have difficulty doing errands alone such as visiting a physician's office or shopping Yes 11/02/2016 8:30 AM EDT Anna RodriguezRn)(Hist), RN [facility] Mental Status WzlwWtfpsqadfxTwlrskRnzzbdrl01-93-2875Wtmpwsn of a physical, mental, or emotional condition, do you have serious difficulty concentrating, remembering, or making decisionsNo 11/02/2016 8:30 AM EDT Anna RodriguezRn)(Hist), RN No [facility] Clinical Notes 12-09-2016 to 01-09-2025 Note Date & RopjHrvsHzmtazbq32-98-2830 NoteUT Cardiology [facility] Subjective Elena Felix is a 64 y.o. year old male patient being seen for Cardiomyopathy (nonischemic), DVT, Congestive Heart Failure, Hypertension, POTS, Hyperlipidemia, orthostatic hypotension, Shortness of Breath, and Fatigue Patient Active Problem List Diagnosis Acute deep [...] dysfunction Inclusion cyst Coronary artery disease involving wichita coronary artery of wichita heart without angina pectoris Essential hypertension Prostate cancer screening Arthritis of left acromioclavicular joint Closed basicervical fracture of femur (CMS/HCC) Closed fracture of head of left femur with delayed healing Deep vein thrombosis (DVT) of left lower extremity (CMS/HCC) Fall Former tobacco use 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 He states that he continues to feel tired most of the time. The patient has history of sleep apnea but he could not tolerate CPAP. He has the same degree of exertional dyspnea which not changed before. He does not exercise on regular basis however he is active around the house. He denies any chest discomfort at rest or with exertion. He states that he does not feel dizzy except in rare occasions when he stands up quickly. He does not check his blood pressure at home anymore. Denies orthopnea or paroxysmal nocturnal dyspnea or palpitations or legs edema or legs discomfort on exertion He drinks 2 cup of coffee a day, he drinks water but probably not enough. Denies alcohol or illicit drugs 07/21/2024 Patient is with history of nonischemic cardiomyopathy, chronic systolic heart failure, mild nonobstructive coronary artery disease, hypertension, hyperlipidemia, orthostatic hypotension which failed pyridostigmine and midodrine. He was last seen in our office with Dr. Pimentel nurse practitioner on 10/03/2022 and recently he was seen by May 2024 He was seen by [facility] cardiology last on 02/05/2023 He was [...] tobacco: Never Substance Use Topics Alcohol use: Yes Comment: occasional Drug use: Never Allergies Allergies Allergen Reactions Morphine Other Patient thinks that with previous surgery he had a mental psychotic reaction with the combination of Lyrica and Morphine. Other r (more content not included)...[facility] 12-10-2024 Telephone encounter Note* Telephone Encounter - Sheba Jamison - 12/10/2024 10:27 AM EDT Lvm for patient to call back to confirm the date & time of lab appointment. Sheba Jamison PSS [facility]08-20-2025 Miscellaneous Notes* Telephone Encounter - Sheba Jamison - 12/10/2024 10:27 AM EDT Lvm for patient to call back to confirm the date & time of lab appointment. ABEL Rhoades * Telephone Encounter - Sheba Jamison - 12/10/2024 9:18 AM EDT Scheduled patient for lab on 12/15/2024 at 10:15 am. ABEL Rhoades * Telephone Encounter - Panfilo Carranza RN - 12/10/2024 8:39 AM EDT Pt is a ROBBY of [place]. No lab appt scheduled or labs ordered Mehul: labs pended, as previously obtained, please review and sign (add, if needed) RTC 12/15 PSS: Pt will need lab appt prior to Mehul, if orders added, please Panfilo Carranza RN documented in this encounterSalem Regional Medical Center08-20-2025 Telephone encounter Note * Telephone Encounter - Sheba Jamison - 12/10/2024 9:18 AM EDT Scheduled patient for lab on 12/15/2024 at 10:15 am. ABEL Rhoades [facility]08-20-2025 Telephone encounter Note* Telephone Encounter - Panfilo Carranza RN - 12/10/2024 8:39 AM EDT Pt is a ROBBY of [place]. No lab appt scheduled or labs ordered Mehul: labs pended, as previously obtained, please review and sign (add, if needed) RTC 12/15 PSS: Pt will need lab appt prior to Mehul, if orders added, please Panfilo Carranza RN [facility]06-16-2025 Evaluation note* Diagnosis Onset Date Resolution Status Admit Date Cervical spondylosis acuteJune 2024 9:57amLeft cervical radiculopathyacuteJune 2024 9:57amOther chronic painacuteJune 2024 9:57amCervical spondylosisacuteJuly 2024 2:57pmLeft cervical radiculopathyacuteJuly 2024 2:57pmOther chronic painacuteJuly 2024 2:57pmCervical spondylosisacuteAugust 2024 8:55amEpicondylitis, lateral, leftacuteAugust 2024 8:55amOther chronic pain acuteAugust 2024 8:55am [facility] Work Phone: 1(568) 274-550505-19-2025 Evaluation note* Diagnosis Onset Date Resolution Status Admit Date Cervical spondylosis acuteMay 2024 10:05amLeft cervical radiculopathyacuteMay 2024 10:05amOther chronic painacuteMay 2024 10:05amBronchitisacuteMay 2024 1:22pmCervical spondylosisacuteJune 2024 9:57amLeft cervical radiculopathyacuteJune 2024 9:57amOther chronic painacuteJune 2024 9:57amCervical spondylosisacuteJuly 2024 2:57pmLeft cervical radiculopathy acuteJuly 2024 2:57pmOther chronic painacuteJuly 2024 2:57pmCervical spondylosisacuteAugust 2024 8:55amEpicondylitis, lateral, leftacuteAugust 2024 8:55amOther chronic painacuteAugust 2024 8:55am [facility] Work Phone: 1(447) 732-383404-29-2025 Evaluation note* Diagnosis Onset Date Resolution Status Admit Date Cervical spondylosis acuteApril 2024 9:23amEpicondylitis, lateral, leftacuteApril 2024 9:23amLeft cervical radiculopathyacuteApril 2024 9:23amOther chronic pain acuteApril 2024 9:23amCervical spondylosisacuteMay 2024 10:05amLeft cervical radiculopathyacuteMay 2024 10:05amOther chronic painacuteMay 2024 10:05amBronchitisacuteMay 2024 1:22pmCervical spondylosisacute [place] 2024 9:57amLeft cervical radiculopathyacuteJune 2024 9:57am Other chronic painacuteJune 2024 9:57amCervical spondylosisacuteJuly 2024 2:57pmLeft cervical radiculopathyacuteJuly 2024 2:57pmOther chronic painacuteJuly 2024 2:57pm [facility] Work Phone: 1(573) 632-225304-09-2025 Telephone encounter Note* Telephone Encounter - Armida [...] on file in the last 12 months [facility]04-09-2025 Miscellaneous Notes* Telephone Encounter - Armida Vazquez [...] the last 12 months documented in this encounterSalem Regional Medical Center04-02-2025 Evaluation note* Diagnosis Onset Date Resolution Status Admit Date Cervical spondylosis acuteApril 2024 9:23amLeft shoulder painacuteApril 2024 9:23am Occipital neuralgia of left sideacuteApril 2024 9:23amOther chronic pain acuteApril 2024 9:23amCervical spondylosisacuteApril 2024 9:23am Epicondylitis, lateral, leftacuteApril 2024 9:23amLeft cervical radiculopathyacuteApril 2024 9:23amOther chronic painacuteApril 2024 9:23amCervical spondylosisacuteMay 2024 10:05amLeft cervical radiculopathy acuteMay 2024 10:05amOther chronic painacuteMay 2024 10:05am BronchitisacuteMay 2024 1:22pm [facility] Work Phone: 1(190) 623-378403-31-2025 NoteUT Cardiology - [facility] Subjective Elena Felix is a [...] dysfunction Inclusion cyst Coronary artery disease involving wichita coronary artery of wichita heart without angina pectoris Essential hypertension HPI Patient is with history of nonischemic cardiomyopathy, chronic systolic heart failure, mild nonobstructive coronary artery disease, hypertension, hyperlipidemia, orthostatic hypotension which failed pyridostigmine and midodrine. He was last seen in our office with Dr. Pimentel nurse practitioner on 10/03/2022 and recently he was seen by May 2024 He was seen by [facility] cardiology last on 02/05/2023 He was [...] the morning. Do not (more content not included)...[facility]03-31-2025 NotePatient Education Urology Benign Prostatic Hyperplasia [...] Follow these instructions at home: ??? Take whot-pua-ioftpwn and prescription medicines only as told by [...] symptoms do not get (more content not included)...[facility]02-18-2025 NoteCardiology Follow Up Progress Note Chief [...] is complete. Nikkie Trejo MD Interventional Cardiology [facility]02-18-2025 Evaluation note* Diagnosis Onset Date Resolution Status Admit Date Left shoulder pain acuteFebruary 2024 9:12amNeck painacuteFebruary 2024 9:12amOccipital neuralgia of left sideacuteFebruary 2024 9:12amOther chronic painacute June 10, 2024 9:12amCervical spondylosisacuteApril 2024 9:23amLeft shoulder painacuteApril 2024 9:23amOccipital neuralgia of left sideacute July 23, 2024 9:23amOther chronic painacuteApril 2024 9:23am [facility] Work Phone: 1(215) 930-638402-18-2025 Evaluation note* Diagnosis Onset Date Resolution Status Admit Date Left shoulder pain acuteFebruary 2024 9:12amNeck painacuteFebruary 2024 9:12amOccipital neuralgia of left sideacuteFebruary 2024 9:12amOther chronic painacute June 10, 2024 9:12amCervical spondylosisacuteApril 2024 9:23amLeft shoulder painacuteApril 2024 9:23amOccipital neuralgia of left sideacute July 23, 2024 9:23amOther chronic painacuteApril 2024 9:23amCervical spondylosisacuteApril 2024 9:23amEpicondylitis, lateral, leftacuteApril 2024 9:23amLeft cervical radiculopathyacuteApril 2024 9:23amOther chronic painacuteApril 2024 9:23am [facility] Work Phone: 1(639) 443-911901-21-2025 Evaluation note* Diagnosis Onset Date Resolution Status Admit Date Ankylosing spondylitis acuteJanuary 2024 10:40amCHF (congestive heart failure)acuteJanuary 2024 10:40amDepressionacuteJanuary 2024 10:40amLeft cervical radiculopathy acuteJanuary 2024 10:40amLower extremity edemaacuteJanuary 2024 10:40amPeripheral neuropathyacuteJanuary 2024 10:40amLeft shoulder pain acuteFebruary 2024 9:12amNeck painacuteFebruary 2024 9:12amOccipital neuralgia of left sideacuteFebruary 2024 9:12amOther chronic painacute February 2024 9:12am [facility] Work Phone: 1(220) 333-181412-16-2024 Telephone encounter Note* Telephone Encounter - Alysha Emanuel MD - 04/07/2024 4:41 PM EST Resending rx Alysha Emanuel MD Dept of Endocrinology [facility]12-16-2024 Miscellaneous Notes* Telephone Encounter - Alysha Emanuel MD - 04/07/2024 4:41 PM EST Resending rx Alysha Emanuel MD Dept of Endocrinology * Telephone Encounter - Rena Dacosta - 04/07/2024 3:34 PM EST Patients insurance called in states Teriparatide 20 mcg/dose (600mcg/2.4mL is not covered by patients insurance. They are recommending alternate medications: Forteo, Tymols, Alendronate Sodium. [employer] can be reached at [phone]. Rena Munson Fibrous Wallboard Inspector II [facility] documented in this encounterSalem Regional Medical Center12-16-2024 Telephone encounter Note * Telephone Encounter - Rena Dacosta - 04/07/2024 3:34 PM EST Patients insurance called in states Teriparatide 20 mcg/dose (600mcg/2.4mL is not covered by patients insurance. They are recommending alternate medications: Forteo, Tymols, Alendronate Sodium. [employer] can be reached at [phone]. Rena Munson Fibrous Wallboard Inspector II [facility]10-18-2024 NoteHNO ID: [id number] Author: ALYSHA EMANUEL MD Service: ? Author Type: Physician Type: Progress Notes Filed: 02/08/2024 11:40 Note Text: Endocrine consult note Mr. Felix is a 63 year old male here today [place] [id number] [facility] [address] for evaluation, management, and treatment of the following issues: bone health My final recommendations will be communicated back to the requesting physician by way of shared medical record or letter. Coming from [place], [place] Mr. Felix is here to discuss [...] MEDICAL HISTORY Diagnosis Date Ankylosing spondylitis ([facility]) Dr Hodges; age 19 yrs Arthritis Back pain four back surgeries Cardiomyopathy ([facility]) Nonischemic Congestive Cerebrovascular small vessel disease 08/24/2016 On ASA DVT (deep venous thrombosis) ([facility]) Esophageal reflux Former smoker Kidney stones Major depressive disorder with single episode, in remission ([facility]) 08/24/2016 Morbid obesity with BMI of 40.0-44.9, adult ([facility]) Neuropathy Obstructive sleep apnea syndrome, [...] No Dizziness: No Numbn (more content not included)...[facility]10-18-2024 History of Present illness Narrative* Alysha Emanuel MD - 02/08/2024 10:04 AM EDT Endocrine consult note Mr. Felix is a 63 year old male here [place] the [place] [address] [facility] [address] for evaluation, management, and treatment of the following issues: bone health My final recommendations will be communicated back to the requesting physician by way of shared medical record or letter. Coming from [place], [place] Mr. Felix is here to discuss [...] Back pain four back surgeries Cardiomyopathy ([facility]) Nonischemic Congestive Cerebrovascular small vessel disease 08/24/2016 On ASA DVT (deep venous thrombosis) ([facility]) Esophageal reflux Former smoker Kidney stones Major depressive disorder with single episode, in remission ([facility]) 08/24/2016 Morbid obesity with BMI of 40.0-44.9, adult ([facility]) Neuropathy Obstructive sleep apnea syndrome, [...] IgM 40 - 230 mg/dL 26 (L) [place] Free, Serum 3.3 - 19.4 mg/L 32.4 [...] Side effect sheet provided to patient from [facility] as well for above medication. Side effects [...] I did update Dr Hodges's office at [phone] with status of medication. I left . Thank you for allowing me to participate in the care of Elena Felix. Please contact me with any questions or concerns. Alysha Emanuel MD Dept of Endocrinology February 08, 2024 documented in this encounterSalem Regional Medical Center10-18-2024 Instructions* Patient Instructions* Alysha Emanuel MD - [...] order bone medication- forteo documented in this encounterSalem Regional Medical Center09-13-2024 Hospital Discharge instructions Patient Education 01/04/2024 11:25:15 [...] including vitamins, herbs, eye drops, creams, and tglg-gdi-exiujuw medicines. Any problems you or family members [...] provider tells you to take them. Taking xnmp-siw-vqjsozi medicines, vitamins, herbs, and supplements. General instructions [...] ?A small tool that is like a Tech[employer] Solutionsie cutter or a hole punch is used to cut a ramona shape out of theskin. ?The outer edges [...] Document Reviewed: 11/08/2021 Elsevier Patient Education 2023 [employer]. Follow Up Care 11/06/2023 09:35:32 With:ARABELLA MUNIZ, Jerrod Moya, URL Address: [address] [place] [address] [place] [address]- When: Unknown [facility] 09-13-2024 NotePatient Education Dermatology Excision of Skin [...] including vitamins, herbs, eye drops, creams, and uavq-jlg-roriese medicines. ? Any problems you or family [...] tells you to take them. ? Taking yfqb-heo-dvbbxxm medicines, vitamins, herbs, and supplements. General instructions [...] hole punch is used to cut a ramona shape out of the skin. ? The [...] visits. This is impo (more content not included)...[facility]09-03-2024 Hospital Discharge instructions Patient Education 12/25/2023 [...] Up Care 11/06/2023 09:33:45 With:Jerrod BELL Address: [address] [place], [place] [id number]- Business (1) When:01/01/2024 09:58:51 Comments:For suture removal [facility] 09-03-2024 NotePatient Education Custom Excision Penile [...] -Take the pain medication and antibiotics as directedPromedica Defiance [facility] 12-04-2023 History of Present illness Narrative* Karthikeyan Marti MD - 12/04/2023 9:51 AM EDT PATIENT NAME: [facility] NO.: [id number] ATTENDING PHYSICIAN: Karthikeyan Marti MD DATE OF [...] MEDICAL HISTORY No date: Ankylosing spondylitis ([facility]) Comment: Dr Hodges No date: Ankylosing spondylitis ([facility]) No date: Arthritis No date: Back pain No date: Cardiomyopathy ([facility]) Comment: Nonischemic Congestive 08/24/2016: Cerebrovascular small vessel disease Comment: On ASA No date: DVT (deep venous thrombosis) ([facility]) No date: Esophageal reflux No date: Former smoker No date: Kidney stones 08/24/2016: Major depressive disorder with single episode, in remission ([facility]) No date: Morbid obesity with BMI of 40.0-44.9, adult ([facility]) No date: Neuropathy No date: Obstructive [...] Range Status 11/07/2023 14.4 % Final Abs [place] Date Value Ref Range Status 11/07/2023 0.91 [...] unprovoked. He was not 100% committed to fpc therapy. I reviewed his hypercoag labs and [...] do not hesitate to contact me at [phone]. Karthikeyan Marti MD Hematology/Medical Oncology [facility] I spent a total of 30 minutes on the date of the service which included preparing to see the patient, aeqn-lo-qybl patient care, completing clinical documentation, obtaining and/or reviewing separately obtained history, ordering medications, tests, or procedures, and communicating with other HCPs (not separately reported). CC: Silvana Lundberg MD documented in this encounterSal[facility]08-08-2024 NoteHNO ID: [id number] Author: MISTY WALLACE MD Service: ? Author [...] tolerated -Follow up: as needed Misty Wallace MDWinthrop Community [id number] History of Present illness Narrative* Misty Wallace [...] needed Misty Wallace MD documented in this encounterSalem [facility] Center08-08-2024 History of Present illness Narrative* Kecia Carpenter [...] PATIENT PRESENTS WITH AN IMPLANTABLE OR ATTACHED CHLORINATOR OPERATOR: No RADIOLOGY DEPARTMENT: General X-ray: Exam(s) Completed: Pelvis X-Ray: Pelvis with Hip Left PERIPHERAL IV DATA: Not applicable SIGNED BY: RT Alpa(Griffin) November 29, 2023 8:56 AM documented in this encounterSalem Regional Medical Center08-08-2024 NoteHNO ID: [id number] Author: KECIA CARPENTER RT(R) Service: Radiology Author [...] PATIENT PRESENTS WITH AN IMPLANTABLE OR ATTACHED CHLORINATOR OPERATOR: No RADIOLOGY DEPARTMENT: General X-ray: Exam(s) Completed: Pelvis X-Ray: Pelvis with Hip Left PERIPHERAL IV DATA: Not applicable SIGNED BY: RT Alpa(R) November 29, 2023 8:56 [facility]06-10-2024 Telephone encounter Note* Telephone Encounter - Brad Tsang - 10/01/2023 4:25 PM EDT Called pt to schedule; no answer; scheduled first available with dr. Booker garcia [facility]06-10-[facility] Miscellaneous Notes* Telephone Encounter - Brad Tsang - 10/01/2023 4:25 PM EDT Called pt to schedule; no answer; scheduled first available with dr. Booker garcia documented in this encounterSalem [facility] Medical Center06-07-2024 Telephone encounter Note * Telephone Encounter - Lana Londono-Barbi Ko RN - 09/28/2023 12:00 PM EDT ----- Message from Misty Wallace MD sent at 09/27/2023 1:23 PM EDT ----- Hi, can you let patient know that he had an elevated PTH. I have placed a consultation for endocrinology to discuss possible etiologies/treatments for this [facility]06-07-[facility] Miscellaneous Notes* Telephone Encounter - Anabelle Londono RN - 09/28/2023 12:00 PM EDT ----- Message from Misty Wallace MD sent at 09/27/2023 1:23 PM EDT ----- Hi, can you let patient know that he had an elevated PTH. I have placed a consultation for endocrinology to discuss possible etiologies/treatments for this documented in this encounterSalem Regional Medical Center06-06-2024 NoteHNO ID: [id number] Author: MISTY WALLACE MD Service: ? Author Type: Physician Type: Progress Notes Filed: 09/27/2023 13:24 Note Text: ORTHOPAEDIC SURGERY CLINIC NOTE NEW PATIENT VISIT Name: Elena Felix September 27, 2023 CHIEF COMPLAINT: left hip pain Date of injury: January 2023 HISTORY OF PRESENT ILLNESS: Elena Fleix is a 63 year old male who [...] spondylitis (HCC) Dr Hodges Ankylosing spondylitis ([facility]) Arthritis Back pain Cardiomyopathy ([facility]) Nonischemic Congestive Cerebrovascular small vessel disease 08/24/2016 On ASA DVT (deep venous thrombosis) ([facility]) Esophageal reflux Former smoker Kidney stones Major depressive disorder with single episode, in remission ([facility]) 08/24/2016 Morbid obesity with BMI of 40.0-44.9, adult ([facility]) Neuropathy Obstructive sleep apnea syndrome, [...] vitamin D, CRP, ESR, (more content not included)...[facility] 09-27-[facility] History of Present illness Narrative* [...] MEDICAL HISTORY Diagnosis Date Ankylosing spondylitis ([facility]) Dr Hodges Ankylosing spondylitis ([facility]) Arthritis Back pain Cardiomyopathy ([facility]) Nonischemic Congestive Cerebrovascular small vessel disease 08/24/2016 On ASA DVT (deep venous thrombosis) ([facility]) Esophageal reflux Former smoker Kidney stones Major depressive disorder with single episode, in remission ([facility]) 08/24/2016 Morbid obesity with BMI of 40.0-44.9, adult ([facility]) Neuropathy Obstructive sleep apnea syndrome, [...] a consultation for endocrinology and sent an [employer] message to one of our endocrinologists as well. RN to update patient. Misty Wallace MD Orthopaedic Trauma Surgery documented in this encounterSalem Regional Medical Center06-06-2024 History of Present illness Narrative* Samuel Sky [...] PATIENT PRESENTS WITH AN IMPLANTABLE OR ATTACHED CHLORINATOR OPERATOR: No RADIOLOGY DEPARTMENT: General X-ray: Exam(s) Completed: Pelvis X-Ray: Pelvis with Hip Left PERIPHERAL IV DATA: Not applicable SIGNED BY: RT Jarett(R) September 27, 2023 9:37 AM documented in this encounterSalem Regional Medical Center06-06-2024 NoteHNO ID: [id number] Author: SAMUEL SKY RT(R) Service: ? Author [...] PATIENT PRESENTS WITH AN IMPLANTABLE OR ATTACHED CHLORINATOR OPERATOR: No RADIOLOGY DEPARTMENT: General X-ray: Exam(s) Completed: Pelvis X-Ray: Pelvis with Hip Left PERIPHERAL IV DATA: Not applicable SIGNED BY: ISSA Denson) September 27, 2023 9:37 [facility]03-25-2024 Hospital Discharge instructions Patient Education 07/16/2023 10:39:22 [...] Follow these instructions at home: Medicines Take ykjh-yby-osvcogi and prescription medicines only as told by [...] provider. Document Revised: 07/06/2021 Document Reviewed: 07/06/2021 [employer] Patient Education 2022 [employer]. Follow Up Care 05/01/2022 10:53:41 With:RIZWAN MUNIZ, Driss Rodríguez, URL Address: [facility] [place] [id number]- When: Unknown [facility] Evaluation note* Encounter Date Diagnosis Assessment Notes Treatment Notes Treatment Clinical Notes Mar, Closed hip fracture, left, seque la (ICD-10 - S72.002S) Keep appt w Dr. Skaggs. Transitioned well home. Pt will call if he has further needs. Takes pain med qhs and before PT. Mar,Other iron deficiency anemia (ICD-10 - D50.8)Discussed anemia could have been related to fracture. Will continue iron for 3 months and then recheck Mar,ermatitis (ICD-10 - L30.9)Advised OTC Cortisone cream. [employer] Other 10-16-2023 History of Present illness Narrative* Austin Jose MD - 02/05/2023 1:01 PM EDT I personally reviewed the above information as obtained by the nurse and confirmed the findings. Chief Complaint: shortness of breath, Near loss of consciousness Additional HPI: 62 year old male with a past medical history of: PAST MEDICAL HISTORY Diagnosis Date Ankylosing spondylitis ([facility]) Dr Hodges Ankylosing spondylitis ([facility]) Arthritis Back pain Cardiomyopathy ([facility]) Nonischemic Congestive Cerebrovascular small vessel disease 08/24/2016 On ASA DVT (deep venous thrombosis) ([facility]) Esophageal reflux Former smoker Kidney stones Major depressive disorder with single episode, in remission ([facility]) 08/24/2016 Morbid obesity with BMI of 40.0-44.9, adult ([facility]) Neuropathy Obstructive sleep apnea syndrome, [...] up with their primary care physician and/or test puller as previously scheduled. STUDY CONCLUSIONS: Abnormal head [...] AM ECG 02/05/2023 : sinus 73 bpm, anika 150, qrs 94, qt 360/396 Assessment and [...] to repeat a Tilt Table Test with bwlm-tv-gams blood pressure monitoring here at [facility]. He agrees. If a relationship between low [...] of syncope. [ACC/AHA Syncope Guidelines 2017. PMID 04101134] -If syncope is frequent (more than 6 episodes in 1 year), then no private driving until symptoms are controlled. [ACC/AHA Syncope Guidelines 2017. PMID 68350248] -For professional or commercial driving, driving recommendations may differ depending upon company or governmental regulations. The Nurses and Nurse Practitioners at [facility] are integral to your care. -*Test results will be available on [email or web address].* -For brief questions regarding the test results, please send a [email or web address] message or call the office ([phone]), and a Nurse will be in contact. [...] for your consultation. Sincerely, Austin Jose MD, [facility] Cardiac Electrophysiology [facility] * Anna Duvall RN - 02/05/2023 12:00 PM EDT Images from the original note were not included. [facility] [place] [facility] Department of Cardiovascular Medicine SECTION OF CARDIAC PACING and ELECTROPHYSIOLOGY OUTPATIENT VISIT DATE February 05, 2023 PRIMARY CARE PHYSICIAN: Silvana Lundberg ([facility]) [address] [place] [address] REFERRING PHYSICIAN: Berta Francis [address] [facility] [address] NURSING INTAKE HISTORY: Mr. Felix is a [...] MEDICAL HISTORY Diagnosis Date Ankylosing spondylitis ([facility]) Dr Hodges Ankylosing spondylitis ([facility]) Arthritis Back pain Cardiomyopathy ([facility]) Nonischemic Congestive Cerebrovascular small vessel disease 08/24/2016 On ASA DVT (deep venous thrombosis) ([facility]) Esophageal reflux Former smoker Kidney stones Major depressive disorder with single episode, in remission ([facility]) 08/24/2016 Morbid obesity with BMI of 40.0-44.9, adult ([facility]) Neuropathy Obstructive sleep apnea syndrome, severe On auto-CPAP - sleep study done on 3/20/17 Pneumonia PAST SURGICAL HISTORY Procedure Laterality Date [...] Sweating, Frequent Urination, FrequentThirst Anna Duvall RN [facility] Syncope Center Score Please estimate the frequency [...] of Both Sections: 35 documented in this encounterSalem Regional Medical Center09-06-2023 Evaluation note* Encounter Date Diagnosis Assessment Notes Treatment Notes Treatment Clinical Notes Dec, Pernicious anemia (ICD-10 - D51. 0) [employer] Other 07-28-2023 Instructions* Patient Instructions* Berta Francis MD - 11/17/2022 11:06 AM EDT Cardiopulmonary exercise testing documented in this encounterSalem Regional Medical Center07-28-2023 History of Present illness Narrative* Berta Francis MD - 11/17/2022 10:46 AM EDT Images from the original note were not included. [facility] Department of Cardiovascular Medicine SECTION OF CLINICAL CARDIOLOGY OUTPATIENT VISIT DATE November 17, 2022 OUTPATIENT VISIT TYPE ESTABLISHED PRIMARY CARE PHYSICIAN: Silvana Lundberg ([facility]) [address] [place] [address] REFERRING PHYSICIAN: No referring provider defined for [...] MEDICAL HISTORY Diagnosis Date Ankylosing spondylitis ([facility]) Dr Hodges Ankylosing spondylitis ([facility]) Arthritis Back pain Cardiomyopathy ([facility]) Nonischemic Congestive Cerebrovascular small vessel disease 08/24/2016 On ASA DVT (deep venous thrombosis) ([facility]) Esophageal reflux Former smoker Kidney stones Major depressive disorder with single episode, in remission ([facility]) 08/24/2016 Morbid obesity with BMI of 40.0-44.9, adult ([facility]) Neuropathy Obstructive sleep apnea syndrome, [...] NORMAL ECG Confirmed by YELENA FUENTES MD ([id number]) on 08/16/2022 10:01:53 AM Patient Name: Elena [...] Department of Cardiovascular Medicine [facility] [place] [facility] Desk [address] [place] [address] Office Office Appointments: [phone] documented in this encounterSalem Regional Medical Center07-18-2023 Evaluation note* Encounter Date Diagnosis Assessment Notes Treatment Notes Treatment Clinical Notes Oct, Pernicious anemia (ICD-10 - D51. 0) [employer] Other 07-11-2023 Evaluation note* Encounter Date Diagnosis Assessment Notes Treatment Notes Treatment Clinical Notes Oct, Cellulitis of right leg (ICD-10 - L03.115) Discussed antibiotics, pain med, consider referral to wound center if not healing well. [employer] Other 06-27-2023 Miscellaneous Notes* Telephone Encounter - Shelia Woods RN - 10/17/2022 9:06 AM EDT Called patient to discuss results of BMP with kidney function and potassium levels still elevated. Left generic message on non-identifying voicemail to return call or read [email or web address] message sent to notify him. Misti Woods RN documented in this encounterSalem Regional Medical Center06-26-2023 Evaluation note* Encounter Date Diagnosis Assessment Notes Treatment Notes Treatment Clinical Notes Sep, Pernicious anemia (ICD-10 - D51. 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 Will followup with Dr. Francis Sep,Hyperkalemia (ICD-10 - E87.5)Pt had labs this morning, will obtain results and treat accordingly Sep,Stage 3 chronic kidney disease, unspecified whether stage 3a or 3b CKD (ICD-10 - N18.30)Will recheck labs, possibly checked this morning. [employer] Other 06-26-2023 History of Present illness Narrative* [...] EMG Trip Grey MD documented in this encounterSalem Regional Medical Center06-22-2023 Miscellaneous Notes* Telephone Encounter - Shelia Woods RN - 10/12/2022 1:09 PM EDT Called and left a generic message on non-identifying voicemail for return call if he has any questions about the [email or web address] message that Anna sent. Misti Woods RN documented in this encounterSalem Regional Medical Center06-16-2023 Instructions* Patient Instructions* Anna Palacios APRN.SLITTER OPERATOR - 10/06/2022 9:58 AM EDT 1) Labs 2) EMG 3) Discuss with urology changing to different medication (discontinuing Flomax) 4) Discuss your neck symptoms with your clinical nursing director 5) Medication consideration - Will discuss [...] intolerance quickly and transiently. documented in this encounterSalem Regional Medical Center06-16-2023 History of Present illness Narrative* Anna Palacios APRN.SAHIL - 10/06/2022 9:00 AM EDT Images from the original note were not included. [facility] for General Neurology New Patient Evaluation Chief Complaint/Issues: Elena Felix is a 62 year old right-handed male seen in the [facility] for General Neurology for: New patient Orthostatic [...] years ago. Used to work in [employer]. Today we discuss his symptoms: Accompanied by , Maricel, who contributes to the history. Ganesh has ankylosing spondylitis, diagnosed at age 19. He has had multiple back and hip surgeries. His clinical nursing director is locally in [place]. He had surgery in 2019, had a [...] GI andheart issues. He sees cardiology in [facility]. He had a heart cath and [...] PT in the past and sees his clinical nursing director for the neck. PMH PAST MEDICAL HISTORY Diagnosis Date Ankylosing spondylitis ([facility]) Dr Hodges Ankylosing spondylitis ([facility]) Arthritis Back pain Cardiomyopathy ([facility]) Nonischemic Congestive Cerebrovascular small vessel disease 08/24/2016 On ASA DVT (deep venous thrombosis) ([facility]) Esophageal reflux Former smoker Kidney stones Major depressive disorder with single episode, in remission ([facility]) 08/24/2016 Morbid obesity with BMI of 40.0-44.9, adult ([facility]) Neuropathy Obstructive sleep apnea syndrome, [...] up with their primary care physician and/or test puller as previously scheduled. STUDY CONCLUSIONS: Abnormal head [...] & Plan 10/06/2022 - Neuromuscular, Anna Palacios, SITE LEADER.SLITTER OPERATOR ASSESSMENT Elena Felix is a 62 year [...] managed by local rheumatology, and seen by [facility] rheumatology recently, Marysol Nance PA-C. He [...] SOB. He had OSH tilt completed through [facility] 07/2022. Though I cannot see the minute [...] which I will discuss with his primary test puller, Dr. Francis (staff message sent 10/06). He is currently in cardiac rehab locally 3x per week. We discuss conservative measures as tolerated. PLAN 1) Labs 2) EMG 3) Discuss with urology changing to different medication (discontinuing Flomax) 4) Discuss your neck symptoms with your clinical nursing director 5) Medication consideration - Will discuss [...] which included preparing to see the patient, inzt-mu-gxrj patient care, completing clinical documentation, obtaining and/or reviewing separately obtained history, performing a medically appropriate examination, counseling and educating the pat ient/family/caregiver, and ordering medications, tests, or procedures. Anna Palacios APRN.[facility] General Neurology [address] [place] [address]. [id number] Appointment: [phone] CONSULT: Consultation requested by Dr. Francis for [...] of your PCP/referring physician documented in this encounterSalem Regional Medical Center06-14-2023 History of Present illness Narrative* Víctor Lewis [...] 8:10 PATIENT DISCHARGED TO: Ambulatory patient, left NH department area. A Diagnostic radioactive procedure has taken place, with no further precautions necessary other than routine body substance precautions. More information regarding radiation safety can be found usingthis link: [email or web address] SIGNATURE: ISSA Knutson) PATIENT NAME: Elena Felix DATE: October 04, 2022 TIME: 8:15 AM PAGER/CONTACT #: documented in this encounterSalem Regional Medical Center05-24-2023 Nurse Note* Yuliana Tubbs RN [...] kind. Yuliana Tubbs RN documented in this encounterSalem Regional Medical Center05-09-2023 History of Present illness Narrative* [...] indication of worsening heart failure. Last seen 5/9/23 with documented H&P verified. Pertinent examination today revealed: Lungs: clear to auscultation Heart: Regular rate & rhythm, S1, S2, no S3, No murmers or clicks Post Procedural Plan: Transfer back to inpatient nursing unit SIGNATURE: Marcia Diamond MD PATIENT NAME: Elena Felix DATE: August 29, 2022 TIME: 1:57 PM documented in this encounterSalem Regional Medical Center05-08-2023 Miscellaneous Notes* Telephone Encounter - Lauryn Bethea [...] In Department of CARDIOLOGY. documented in this encounterSalem Regional Medical Center04-26-2023 Instructions* Patient Instructions* Marysol Nanec PA-C - 08/16/2022 10:56 AM EDT Recommend [...] uveitis coverage. Continue to follow with primary clinical nursing director for medication changes and monitoring. [facility] can continue to assist with treatment plan as needed. documented in this encounterSalem Regional Medical Center04-26-2023 History of Present illness Narrative* Catia Snell - 08/16/2022 10:06 AM EDT E documented in this encounterSalem Regional Medical Center04-26-2023 History of Present illness Narrative* Marysol Nance PA-C - 08/16/2022 10:00 AM EDT Images from the original note were not included. Rheumatology Outpatient Clinic Date of Service: 08/16/2022 Patient: Elena Felix Medical Record: [id number] Primary Care Physician: Silvana Lundberg MD Last Rheumatology visit: None at the [facility] Referring Provider: Berta Francis MD [address] [facility] [address] Consultation requested by Berta Francis MD for [...] years later. He currently follows with a clinical nursing director, Dr. Brad Hodges, in [place], [place] who he is happy with. However,reports clinical nursing director told him, he is only his third patient with ankylosing spondylitis and so presents to [facility] rheum for assistance on treatment plan. [...] mass areas in the brain. Reports his clinical nursing director has considered a TNF-alpha inhibitor again, [...] spondylitis (HCC) Dr Hodges Ankylosing spondylitis ([facility]) Arthritis Back pain Cardiomyopathy ([facility]) Nonischemic Congestive Cerebrovascular small vessel disease 08/24/2016 On ASA DVT (deep venous thrombosis) ([facility]) Esophageal reflux Former smoker Kidney stones Major depressive disorder with single episode, in remission ([facility]) 08/24/2016 Morbid obesity with BMI of 40.0-44.9, adult ([facility]) Neuropathy Obstructive sleep apnea syndrome, [...] Patient should continue following with his primary clinical nursing director. Follow up as needed. Plan Orders [...] uveitis coverage. Continue to follow with primary clinical nursing director for medication changes and monitoring. [facility] can continue to assist with treatment plan as needed. Return if symptoms worsen or fail to improve. I spent a total of 60 minutes on the date of the service which included preparing to see the patient, wvqj-bt-cylv patient care, completing clinical documentation, obtaining and/or reviewing separately obtained history, performing a medically appropriate examination, and counseling and educating the patient/family/caregiver. Marysol Nance PA-C [facility] Date: August 16, 2022 Time: 10:00 AM documented in this encounterSalem Regional Medical Center04-26-2023 History of Present illness Narrative* Berta Francis MD - 08/16/2022 8:19 AM EDT Images from the original note were not included. [facility] [place] [facility]ann[facility] Department of Cardiovascular Medicine SECTION OF CLINICAL CARDIOLOGY OUTPATIENT VISIT DATE August 16, 2022 OUTPATIENT VISIT TYPE NEW PRIMARY CARE PHYSICIAN : Silvana Lundberg ([place]) [address] [place] [address] REFERRING PHYSICIAN: No referring provider defined for [...] 25% now 60%) 2/ NICM. Starting in 2018 post-op, began experiencing [...] 20 years ago. Used to work in [employer]. Fmaily hx of stroke in mother and father. PAST MEDICAL HISTORY Diagnosis Date Ankylosing spondylitis (HCC) Dr Hodges Ankylosing spondylitis ([facility]) Arthritis Back pain Cardiomyopathy (HCC) Nonischemic Congestive Cerebrovascular small vessel disease 08/24/2016 On ASA DVT (deep venous thrombosis) ([facility]) Esophageal reflux Former smoker Kidney stones Major depressive disorder with single episode, in remission ([facility]) 08/24/2016 Morbid obesity with BMI of 40.0-44.9, adult ([facility]) Neuropathy Obstructive sleep apnea syndrome, [...] lung disease in setting ofankylosing spondylitis and intermediate frame tender MTX use. Plan: - obtain echo here, [...] INFORMATION: Kellen Bryan MD Internal Medicine, PGY-3 [phone] 08/16/2022 12:26 PM [facility] ST[facility]FF PHYSICIAN NOTE OF PERSONAL INVOLVEMENT IN [...] SERVICE: August 16, 2022 documented in this encounterSalem Regional Medical Center04-25-2023 Miscellaneous Notes* Telephone Encounter - Geovanni Castillo - 08/15/2022 12:46 PM EDT Images received from [facility] by mail. Images uploaded to [employer]. Patient has a future appointment on: 08/16/22. Date of last OV: N/A. Geovanni Castillo August 15, 2022 12:46 PM documented in this encounter[facility] History of Present illness Narrative* Izzy Duvall RN - 07/31/2022 2:30 PM EDT Instructed on objectives and procedure of a tilt study documented in this encounterBON awe.sm Phone: [phone] 784-937203-22-2023 Miscellaneous Notes* Telephone Encounter - Geovanni Castillo - 07/12/2022 1:54 PM EDT Contacted patient via Phone -no answer; VMM left requesting for cardiac records prior to appointment on 08/16/22. Geovanni Castillo July 12, 2022 1:54 PM documented in this encounterSal[facility]01-16-2023 Evaluation note* Encounter Date Diagnosis Assessment Notes Treatment Notes Treatment Clinical Notes Apr, Current moderate epi sode of major depressive disorder without prior episode (ICD-10 - F32.1) Notes increased symptoms - winter months and new medical issues. Reviewed present meds. On cymbalta. Add effexor and recheck in 1 month Apr,Moderate persistent asthma, unspecified whether complicated (ICD-10 - J45.40)New problem. Reviewed notes from Dr. Capps and discussed medications with Elena. Apr,rthritis of spine (ICD-10 - M46.90)Chronic issue. Reviewed notes from Dr. Hodges's office and his medications. [employer] Other 01-09-2023 Hospital Discharge instructions Patient Education [...] urethra. Follow these instructions at home: Take fzqg-mdj-jegbkhl and prescription medicines only as told by [...] 04/09/2006 Document Revised: 03/04/2019 Document Reviewed: 05/14/2017 [employer] Patient Education 2020 [employer] Follow Up Care 09/05/2021 12:02:11 With:ARABELLA MUNIZ, VERENICE Denny Address: [facility] [address], [place] [address] [phone] When:Within 1 Year(s) [facility] 09-28-2022 History of Present illness Narrative* Karthikeyan Marti MD - 01/18/2022 10:38 AM EDT PATIENT NAME: Elena Felix CLINIC NO.: [id number] ATTENDING PHYSICIAN: Karthikeyan Marti MD DATE OF [...] MEDICAL HISTORY Diagnosis Date Ankylosing spondylitis ([facility]) Dr Hodges Ankylosing spondylitis ([facility]) Arthritis Back pain Cardiomyopathy ([facility]) Nonischemic Congestive Cerebrovascular small vessel disease 08/24/2016 On ASA DVT (deep venous thrombosis) ([facility]) Esophageal reflux Former smoker Kidney stones Major depressive disorder with single episode, in remission ([facility]) 08/24/2016 Morbid obesity with BMI [...] 0.95 (L) 1.00 - 4.00 k/uL Final Fountain% Date Value Ref Range Status 12/28/2021 12.7 % Final Abs Fountain Date Value Ref Range Status 12/28/2021 0.69 [...] unprovoked. He was not 100% committed to fpc therapy. I reviewed his hypercoag labs and [...] do not hesitate to contact me at [phone]. Karthikeyan Marti MD Hematology/Medical Oncology [facility] I spent a total of 15 minutes on the date of the service which included preparing to see the patient, bwve-nz-cpbc patient care, completing clinical documentation, obtaining and/or reviewing separately obtained history, ordering medications, tests, or procedures, and communicating with other HCPs (not separately reported). Medical Decision Making: Medical Decision Making Level: 1 - N/A CC: Silvana Lundberg MD documented in this encounterSalem [facility]09-12-2022 Miscellaneous Notes* Telephone Encounter - Panfilo Carranza [...] next appointment as well, documented in this encounterSalem [facility]09-12-2022 Miscellaneous Notes* Telephone Encounter - Meaghan De [...] next appointment as well, documented in this encounterSalem [facility]09-07-2022 History of Present illness Narrative* Karthikeyan Marti MD - 12/28/2021 2:43 PM EDT PATIENT NAME: Elena Felix [facility] NO.: [id number] ATTENDING PHYSICIAN: Karthikeyan Marti MD DATE OF SERVICE: December 28, [address] Karthikeyan Marti [address] [place] [address] here is an update on a follow [...] MEDICAL HISTORY Diagnosis Date Ankylosing spondylitis ([facility]) Dr Hodges Ankylosing spondylitis ([facility]) Arthritis Back pain Cardiomyopathy (HCC) Nonischemic Congestive Cerebrovascular small vessel disease 08/24/2016 On ASA DVT (deep venous thrombosis) ([facility]) Esophageal reflux Former smoker Kidney stones Major depressive disorder with single episode, in remission ([facility]) 08/24/2016 Morbid obesity with BMI of 40.0-44.9, adult ([facility]) Neuropathy Obstructive sleep apnea syndrome, [...] 12/15/2016 1.98 1.00 - 4.00 k/uL Final Fountain% Date Value Ref Range Status 12/15/2016 10.6 % Final Abs Fountain Date Value Ref Range Status 12/15/2016 0.99 [...] unprovoked. He was not 100% committed to intermediate frame tender theraoy and is undergoing evaluation with hyper coag panel to decide if Ok to stop therapy and or he needs to resume, Will follow up on the blood work and discuss with him Thank you for the kind referral. If there are any questions and or concerns please do not hesitate to contact me at [phone]. Karthikeyan Marti MD Hematology/Medical Oncology [facility] I spent a total of 20 minutes on the date of the service which included preparing to see the patient, nvsw-zm-nlhy patient care, completing clinical documentation, obtaining and/or reviewing separately obtained history, ordering medications, tests, or procedures, and communicating with other HCPs (not separately reported). Medical Decision Making: Medical Decision Making Level: 1 - N/A CC: Silvana Lundberg MD documented in this encounterSalem [facility] Center08-09-2022 NoteEXAMINATION: XR CHEST 2 V HISTORY: COVID-19 [...] Electronically authenticated by: MAJOR REA Date: 2021-11-29 19:09[facility]06-01-2022 Nurse Note* Annmarie Ralph MA - 09/21/2021 3:46 PM EDT Patient was in ER yesterday due to Bronchitis. Annmarie Ralph MA documented in this encounterSalem [facility] Center06-01-2022 History of Present illness Narrative* Karthikeyan Marti MD - 09/21/2021 3:40 PM EDT Images from the original note were not included. PATIENT NAME: Elena Felix [facility] NO.: [id number] ATTENDING PHYSICIAN: Karthikeyan Marti MD DATE OF SERVICE: September 21, [address] Silvana Lundberg thank you for referring Mr. Elena Felix for an opinion regarding DVT. CHIEF COMPLAINT: DVT HPI: Elena Felix is a 61 year old year old male with past medical history significant for congestive heart failure followed at [facility], benign prostatic hypertrophy as well as ankylosing spondylitis who had undergone a X63-pikdl PSF which was complicated by C. difficile [...] oftherapy. 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 due [...] MEDICAL HISTORY Diagnosis Date Ankylosing spondylitis ([facility]) Dr Hodges Ankylosing spondylitis ([facility]) Arthritis Back pain Cardiomyopathy ([facility]) Nonischemic Congestive Cerebrovascular small vessel disease 08/24/2016 On ASA DVT (deep venous thrombosis) ([facility]) Esophageal reflux Former smoker Kidney stones Major depressive disorder with single episode, in remission ([facility]) 08/24/2016 Morbid obesity with BMI of 40.0-44.9, adult ([facility]) Neuropathy Obstructive sleep apnea syndrome, [...] 12/15/2016 1.98 1.00 - 4.00 k/uL Final Fountain% Date Value Ref Range Status 12/15/2016 10.6 % Final Abs Fountain Date Value Ref Range Status 12/15/2016 0.99 [...] in the meantime we will continue with Rossycesariois. Plan on seeing him back in approximately 3 months. Of note he has undergone appropriate screening studies including colonoscopy approximately year agowhich showed a polyp and no malignancy. Dear Dr. Silvana Lundberg thank you for allowing me to participate in Mr. Elena Felix [facility], if there are any questions or concerns please do not hesitate to contact me at the number below. Karthikeyan Marti M.D. Hematology/Medical Oncology [facility] [phone] CC: Silvana Lundberg MD I spent a total of 50 minutes on the date of the service which included preparing to see the patient, exld-fo-vfzt patient care, completing clinical documentation, obtaining and/or reviewing separately obtained history, performing a medically appropriate examination, counseling and educating the pat ient/family/caregiver and ordering medications, tests, or procedures. documented in this encounterSalem [facility] Center08-19-2017 History of Past illness Narrative* ProblemNoted DateResolved DateAKI (acute kidney injury)12/09/2016 12/15/2016Anticoagulation management hmfpvoolq18Wound ecvixknd60//7070Xobibmfbk69/25/2017documented as of this encounter (statuses as of 09/16/2021) [facility] History of Past illness Narrative* ProblemNoted Date Resolved DateAKI (acute kidney injury)Anticoagulation management iekgdjuvr26Wound // Wsbdyyqbq55/25/2017documented as of this encounter (statuses as of 09/29/2021) [facility] History of Past illness Narrative* ProblemNoted Date Resolved DateAKI (acute kidney injury)Anticoagulation management izrtyyskn53//Wound syclwutp57// Goqqagldg13/25/2017documented as of this encounter (statuses as of 12/28/2021) [address]19-2017 History of Past illness Narrative* ProblemNoted Date Resolved DateAKI (acute kidney injury)Anticoagulation management xmwwebpxw52///2016Wound yqijerpq75// Lrdwvmerx25/25/2017documented as of this encounter (statuses as of 01/02/2022) [address]19-2017 History of Past illness Narrative* ProblemNoted Date Resolved DateAKI (acute kidney injury)Anticoagulation management yesmkcyqb85///2016Wound pptitwdy40// Yjoshydyf75/25/2017documented as of this encounter (statuses as of 01/18/2022) [address]19-2017 History of Past illness Narrative* ProblemNoted Date Resolved DateAKI (acute kidney injury)Anticoagulation management kplmsywds06//Wound fvqgakjd53// Zxmbrbtfg43/25/2017documented as of this encounter (statuses as of 07/12/2022) [address]19-2017 History of Past illness Narrative* ProblemNoted Date Resolved DateAKI (acute kidney injury)Anticoagulation management fngbiifey30///2016Wound wufjmtgk67// Xwxnbenhx36/25/2017documented as of this encounter (statuses as of 08/15/2022) [address]19-2017 History of Past illness Narrative* ProblemNoted Date Resolved DateAKI (acute kidney injury)Anticoagulation management opslatnsy15///2016Wound // Filhijdwp02/25/2017documented as of this encounter (statuses as of 08/16/2022) [address]19-2017 History of Past illness Narrative* ProblemNoted Date Resolved DateAKI (acute kidney injury)Anticoagulation management cenkxewgf30//Wound // Aphhkmcth14/25/2017documented as of this encounter (statuses as of 08/16/2022) [address]19-2017 History of Past illness Narrative* ProblemNoted Date Resolved DateAKI (acute kidney injury)Anticoagulation management ckdrzhvde13/07/Wound ibyuzthm35// Scnzcvsza90/25/2017documented as of this encounter (statuses as of 08/28/2022) [address]19-2017 History of Past illness Narrative* ProblemNoted Date Resolved DateAKI (acute kidney injury)Anticoagulation management smibxsxqs68//Wound veexpqgm61// Mezliinra60/25/2017documented as of this encounter (statuses as of 08/30/2022) [address]19-2017 History of Past illness Narrative* ProblemNoted Date Resolved DateAKI (acute kidney injury)Anticoagulation management /07/Wound luydfizw05// Fnsaotvwl53/25/2017documented as of this encounter (statuses as of 09/19/2022) [address]19-2017 History of Past illness Narrative* ProblemNoted Date Resolved DateAKI (acute kidney injury)Anticoagulation management mftycheau76/Wound gegzsxua18// Rotpzmjdv23/25/2017documented as of this encounter (statuses as of 10/05/2022) [address]19-2017 History of Past illness Narrative* ProblemNoted Date Resolved DateAKI (acute kidney injury)Anticoagulation management yssnrgznu83//Wound lgzvtuwi03// Rduukkfjj09/25/2017documented as of this encounter (statuses as of 10/06/2022) [address]19-2017 History of Past illness Narrative* ProblemNoted Date Resolved DateAKI (acute kidney injury)Anticoagulation management vsozeiowm63//Wound wmsrzivj39// Jxaudabyx06/25/2017documented as of this encounter (statuses as of 10/16/2022) [address]19-2017 History of Past illness Narrative* ProblemNoted Date Resolved DateAKI (acute kidney injury)Anticoagulation management xnyjzejrh24//Wound ibbjhfgb56// Iinwijcfp86/25/2017documented as of this encounter (statuses as of 10/17/2022) [facility] of [facility] illness Narrative* ProblemNoted Date Resolved DateAKI (acute kidney injury)Anticoagulation management btpywxlll10Wound efsifzdb40// Tnynfpyag54/25/2017documented as of this encounter (statuses as of 10/17/2022) [address]19-2017 History of Past illness Narrative* ProblemNoted Date Resolved DateAKI (acute kidney injury)Anticoagulation management nykzwmzoh26///2016Wound // Zjbextixd82/25/2017documented as of this encounter (statuses as of 10/23/2022) [address]19-2017 History of Past illness Narrative* ProblemNoted Date Diagnosed DateResolved DateAKI (acute kidney injury) Anticoagulation management sltrnnpta37Wound drainage //3574Pdvcelave45/25/2017documented as of this encounter (statuses as of 12/01/2022) [facility] of [facility] illness Narrative* ProblemNoted Date Diagnosed DateResolved DateAKI (acute kidney injury) Anticoagulation management ftznbjozy18Wound drainage 09/23//01/20173749Tdhveycij23/25/2017documented as of this encounter (statuses as of 02/05/2023) [facility] of [facility] illness Narrative* ProblemNoted Date Diagnosed DateResolved DateAKI (acute kidney injury) Anticoagulation management vxgxfjkis88Wound drainage 09/23//01/20178229Adychzugg02/25/2017documented as of this encounter (statuses as of 02/23/2023) [facility] Future Appointments Appointment Date:05/04/2023 08:15:00 AM Scheduled Provider:Jerrod BELL MD Location:[facility] Appointment Type:URO Office Visit [facility] evaluation + Plan note Future Appointments Appointment Date:07/21/2024 09:15:00 AM Scheduled Provider:Jerrod BELL MD Location:[facility] Appointment Type:URO Office Visit Diagnostic Tests Pending * PSA Total 07/16/23 [facility] evaluation + Plan note Future Appointments Appointment Date:01/04/2024 10:30:00 AM Scheduled Provider:Jerrod BELL MD Location:[facility] Appointment Type:URO Office Visit Appointment Date:07/21/2024 09:15:00 AM Scheduled Provider:Jerrod BELL MD Location:[facility] Appointment Type:URO Office Visit [facility] Evaluation + Plan note Future Appointments Appointment Date:07/21/2024 09:15:00 AM Scheduled Provider:Jerrod BELL MD Location:[facility] Appointment Type:URO Office Visit [facility] [place] evaluation noteNo Assessments Information Available [facility] Acute deep vein thrombosis (DVT) of distal end of left lower extremity (HCC)- Primary [facility]* Diagnosis Acute deep vein thrombosis (DVT) of distal end of left lower extremity (HCC)- Primary [facility]* Diagnosis History of DVT (deep vein thrombosis)- Primary Personal history of venous thrombosis and embolism [facility] this encounter [facility]* Diagnosis Orthostatic hypotension POTS (postural orthostatic tachycardia syndrome) Tachycardia, unspecified documented in this encounter [facility] Work Phone: evaluation note* Diagnosis POTS (postural orthostatic tachycardia syndrome)- Primary Tachycardia, unspecified Lightheadedness Dizziness and giddiness POTS (postural orthostatic tachycardia syndrome) Tachycardia, unspecified [facility]* Diagnosis Lightheadedness- Primary Dizziness and [...] syndrome) Tachycardia, unspecified [facility]* Diagnosis Chronic diastolic congestive heart failure (HCC)- Primary Chronic diastolic heart failure [facility]* Diagnosis Ankylosing spondylitis of multiple sites in spine (HCC) Ankylosing spondylitis documented in this encounter [facility] note* Diagnosis Exertional dyspnea Other dyspnea and respiratory abnormality Other secondary pulmonary hypertension (HCC) [facility] this encounter [facility]* Diagnosis Disturbance of skin sensation- Primary Lightheadedness Dizziness and giddiness Change in blood pressure Other abnormal clinical finding Orthostatic hypotension Tremulousness Abnormal involuntary movements documented in this encounter 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 note* Diagnosis Dilated cardiomyopathy ([facility])- Primary Other primary cardiomyopathies documented in this encounter [facility] note* Diagnosis Ankylosing spondylitis of multiple sites in spine ([facility])- Primary Ankylosing spondylitis documented in this encounter [facility] noteNo assessment information [facility] Work Phone: Evaluation noteNo InformationNort [employer] Other Evaluation note* Diagnosis SOB (shortness of breath)- Primary Shortness of breath Coronary artery disease involving [place] coronary artery of [place] heart without angina pectoris Palpitations documented in this encounter [facility] note* Diagnosis Shortness of breath- Primary Near syncope Syncope and collapse documented in this encounter [facility] note* Diagnosis Exertional dyspnea Other dyspnea and respiratory abnormality documented in this encounter [facility] note* Diagnosis Onset Date Resolution Status Cellulitis, toe acute [facility] Work Phone: evaluation note* Diagnosis Onset Date Resolution Status Cellulitis, toe acuteRashacutePathological fracture, hip, unspecified, sequelaacute [facility] Work Phone: evaluation note* Diagnosis Closed fracture of hip, left, with delayed healing, subsequent encounter- Primary Ankylosing spondylitis of multiple sites in spine ([facility]) Ankylosing spondylitis Acute deep vein thrombosis (DVT) of femoral vein of both lower extremities ([facility]) Morbid obesity with BMI of 40.0-44.9, adult ([facility]) Morbid obesity documented in this encounter [facility] note* Diagnosis Pain Generalized pain documented in this encounter [facility] note* Diagnosis Closed fracture of hip, left, with delayed healing, subsequent encounter- Primary High serum parathyroid hormone (PTH) documented in this encounter [facility] note* Diagnosis Onset Date Resolution Status Cellulitis, toe acuteRashacuteDepressionacuteLeft shoulder painacutePathological fracture, hip, unspecified, sequelaacute [facility] Work Phone: Evaluation note* Diagnosis Closed fracture of hip, left, with delayed healing, subsequent encounter- Primary [facility] this encounter [facility]* Diagnosis Closed fracture of hip, left, with delayed healing, subsequent encounter documented in this encounter [facility]* Diagnosis History of DVT (deep vein thrombosis)- Primary Personal history of venous thrombosis and embolism Monoclonal gammopathy Monoclonal paraproteinemia documented [facility] this encounter [facility]* Diagnosis Other hyperparathyroidism (HCC)- Primary Other hyperparathyroidism Closed fracture of hip, left, with delayed healing, subsequent encounter High serum parathyroid hormone (PTH) Osteoporosis, unspecified osteoporosis type, unspecified pathological fracture presence Class 3 severe obesity without serious comorbidity with body mass index (BMI) of 40.0 to 44.9 in adult, unspecified obesity type (HCC) documented in this encounter [facility]* Diagnosis Onset Date Resolution Status Admit Date CHF (congestive heart failure) acuteJanuary 2024 10:40amLeft cervical radiculopathyacuteJanuary 2024 10:40amLower extremity edemaacuteJanuary 2024 10:40am [facility] Work Phone: Evaluation note* Diagnosis Monoclonal gammopathy- Primary Monoclonal paraproteinemia documented in this encounter [facility] general Narrative - Reported* Type Description Date Medical History Arthritis of spine Medical HistoryPeripheral neuropathyMedical HistoryTachycardiaMedical HistoryLeg crampsMedical HistoryasthmaSurgical Historyback surgery x 3Surgical Historyright hip replacedSurgical Historyright hand x 2Hospitalization Historysee above Hospitalization Historyinfected incision and sepsis and blood clot [employer] Other History general Narrative - Reported* Type Description Date Medical History Arthritis of spine Medical HistoryPeripheral neuropathyMedical HistoryTachycardiaMedical HistoryLeg crampsMedical HistoryasthmaMedical HistoryLeft femoral neck fractureSurgical Historyback surgery x 3Surgical Historyright hip replacedSurgical Historyright hand x 2Hospitalization Historysee aboveHospitalization Historyinfected incision and sepsis and blood clot [employer] Other Hospital course Narrative No data available for this section [facility] Hospital Discharge instructionsAmbulatory Orders* Referral to Pain Management Time Frame: 05/13/24, Location: None [facility] Work Phone: Progress note No data available for this section [facility] reason for referral (narrative)* Outpatient Procedure (Routine) - AuthorizedSpecialtyDiagnoses / ProceduresReferred By Contact Referred To [facility] Diagnoses POTS (postural orthostatic tachycardia syndrome) Procedures ECG COMPLETE ECG ROUTINE ECG W/LEAST 12 LDS W/I&R Austin Jose MD [address] [place] [address] [facility] [address] [place] [address] Referral IDStatusReasonHardy DateExpiration DateVisits RequestedVisits [id number] Auto-Generated Referral [facility] for referral (narrative)* Diagnostic Procedure Only (Routine) - ClosedSpecialtyDiagnoses / ProceduresReferred By ContactReferred To ContactMOLECULAR & FUNCTIONAL IMAGING Diagnoses Exertional dyspnea Other secondary pulmonary hypertension (HCC) Procedures NM LUNG VENT / PERF VQ PULMONARY VENTILATION & PERFUSION IMAGING Berta Francis MD [address] [place] [address] Molecular & Functional Imaging [address] [place] [address] Referral IDStatMount [facility] DateExpiration DateVisits RequestedVisits [id number] Auto-Generated Referral [facility] for referral (narrative)* Outpatient Procedure (Routine) - AuthorizedSpecialtyDiagnoses / ProceduresReferred By ContactReferred To [facility] Diagnoses Disturbance of skin sensation Procedures EMG(NEURO/NI) NERVE CONDUCTION STUDIES 9-10 STUDIES Anna Palacios APRN.CNP [address] [place] [address] Neurological [place] [address] [place] [address] Referral IDStatusReasonStart DateExpiration DateVisits RequestedVisits [id number] Auto-Generated Referral / T [facility] for referral (narrative)* Outpatient Procedure (Routine) - AuthorizedSpecialtyDiagnoses / ProceduresReferred By ContactReferred To [facility] Diagnoses SOB (shortness of breath) Procedures CARDIOPULMONARY EXERCISE TEST PULMONARY STRESS TESTING Berta Francis MD [address] [place] [address] Respiratory [place] [address] [place] [address] Referral IDStatusReasonStart DateExpiration DateVisits RequestedVisits [id number] Auto-Generated Referral / [facility] for referral (narrative)* Diagnostic Procedure Only (Routine) - ClosedSpecialtyDiagnoses / ProceduresReferred By ContactReferred To [facility] Diagnoses Exertional dyspnea Procedures ECHO ECHO TTHRC R-T 2D W/WOM-MODE COMPL SPEC&COLR D Berta Francis MD [address] [place] [id number] [facility] [place] [address] [place] [address] Referral IDStatusReasonStart DateExpiration DateVisits RequestedVisits [id number] Auto-Generated Referral [facility] for referral (narrative)* Diagnostic Procedure Only (Routine) - AuthorizedSpecialtyDiagnoses / ProceduresReferred By Contact Referred To ContactXR IMAGING Diagnoses Closed fracture of hip, left, with delayed healing, subsequent encounter High serum parathyroid hormone (PTH) Procedures DXA-FOREARM SKELETON DXA BONE DENSITY STUDY 1/SITES APPENDICLR Alysha Metcalf MD [address] [place] [address] Xr Imaging [place] [address] Ref[facility]Status[facility] DateExpiration DateVisits RequestedVisits [id number] Auto-Generated Referral / [facility] for referral (narrative)No reason for referral information availableTrihealth Mcc[facility] Work Phone: [facility] Narrative* Diagnostic Procedure Only (Routine) - ClosedSpecialtyDiagnoses / ProceduresReferred By ContactReferred To [facility] Diagnoses Exertional dyspnea Procedures ECHO ECHO TTHRC R-T 2D W/WOM-MODE COMPL SPEC&COLR D Berta Francis MD [address] [place] [address] [facility] [place] [address] [place] [address] Referral IDStatus[facility] DateExpiration DateVisits RequestedVisits [id number] Auto-Generated Referral [facility] for visit Narrative* Diagnostic Procedure Only (Routine) - ClosedSpecialtyDiagnoses / ProceduresReferred By ContactReferred To Contact XR IMAGING Diagnoses Pain Procedures XR HIP GENERAL 3V PELV/AP/LAT LEFT RADEX HIP UNILATERAL WITH PELVIS 2-3 VIEWS Padubidri, [place] [address] [place] [address] Xr Imaging [facility] Referral IDStatusR[facility] HospitalSt[facility] DateExpiration DateVisits RequestedVisits [id number] Auto-Generated Referral / [facility] Narrative* Diagnostic Procedure Only (Routine) - ClosedSpecialtyDiagnoses / ProceduresReferred By ContactReferred To Contact XR IMAGING Diagnoses Closed fracture of hip, left, with delayed healing, subsequent encounter Procedures XR HIP GENERAL 3V PELV/AP/LAT LEFT RADEX HIP UNILATERAL WITH PELVIS 2-[place] [address] [place] [address] Xr Imaging [place] [address] Referral IDStatusReasonStsand creek DateExpiration DateVisits RequestedVisits [id number] Auto-Generated Referral / [facility] Advance Directives No Advanced Directives Records Found Advance Directive Response Recorded Date/ Time Advance Directives No January 31, 2017 11:35am TypeDate RecordedPatient RepresentativeExplanationAdvance Directive(s)11/29/2017 5:55 AMAdvance Directive(s)11/19/2017 8:19 AMAdvance Directive(s)11/19/2017 10:21 AMAdvance Directive(s)12/10/2016 12:37 PMAdvance Directive(s)09/24/2016 2:38 PM Advance Directive(s)08/24/2016 12:03 PMAdvance Directive(s)08/24/2016 12:04 PMType Date RecordedPatient RepresentativeExplanationAdvance Directive(s)08/24/2016 12:04 PMTypeDate RecordedPatient RepresentativeExplanationAdvance Directive(s)08/24/2016 12:04 PM Advance Directive Response Recorded Date/ Time Advance Directives No January 31, 2017 10:35am Chief Complaint and Reason for Visit Chief Complaint vaccine ins Chief Complaint L03.116 Chief Complaint M45.0 M15.0 Z79.899 Amb Documentation rash on both legsReason for VisitCellulitis, toe Chief Complaint Amb Documentation rash on both legs med refillsReason for VisitCellulitis, toe Rash Pathological fracture, hip, unspecified, sequela Chief Complaint rash on both legs med refills M45.0 M15.0 Z79.899 4WK FOLLOW UPReason for VisitCellulitis, toe Rash Depression Left shoulder pain Pathological [...] SILVANA LUNDBERG June 10, 2024 9:12am M54.2 February 18th, 2025 10:03am f/u after PT, order MRI July [...] week f/u after left cervical RFA Augus 2024 8:55am M77.12 December 10, 2024 8: 42am Reason for Visit Admit Date Cervical spondylosis October 06, 2024 9:5 7am Left cervical radiculopathy October 06, 025 9:57am Other chronic pain October 06, [...] Onset Recorded Date/T neil father Unknown Not SpecifiedDeceasedUnknown Relationship Condition Age at Onset Recorded Date/T neil father Unknown motherDeceasedUnknown Reason for Referral SpecialtyDiagnoses / ProceduresReferred By ContactReferred To ContactREHAB AND SPORTS THERAP[facility] INS Diagnoses Closed fracture of hip, left, with delayed healing, subsequent encounter Procedures CONSULT TO PHYSICAL THERAPY PHYSICAL THERAPY EVALUATION HIGH COMPLEX 45 MINS Esther Pelayo PA-C [address] [place] [address] [facility] [address] [address] Referral IDStatusReasonStart DateExpiration DateVisits RequestedVisits [id number] Review Auto-Generated Referral /[id number] / ProceduresReferred By ContactReferred To ContactXR IMAGING Diagnoses Closed fracture of hip, left, with delayed healing, subsequent encounter Procedures XR HIP GENERAL 3V PELV/AP/LAT LEFT RADEX HIP UNILATERAL WITH PELVIS 2-[place] [address] [place] [address] Xr Imaging [place] [address] Referral IDStatusReasonStsand creek DateExpiration DateVisits RequestedVisits [id number] Auto-Generated Referral /[id number] / ProceduresReferred By ContactReferred To Contact Diagnoses Closed fracture of hip, left, with delayed healing, subsequent encounter High serum parathyroid hormone (PTH) Procedures CONSULT TO HIP FRACTURE LIAISON SERVICE (FRAGILITY) OFFICE/OUTPATIENT NEW HIGH MDM 60 [place] [address] [place] [address] Referral IDStatMount [facility]el [facility] DateExpiration DateVisits RequestedVisits [id number] PCP Requested Referral /[id number] / ProceduresReferred By ContactReferred To ContactEndocrinology Diagnoses Closed fracture of hip, left, with delayed healing, subsequent encounter Procedures CONSULT TO ENDOCRINOLOGY OFFICE/OUTPATIENT NEW HIGH MDM [address] [place] [address] [place] [address] Referral IDStatus[facility] DateExpiration DateVisits RequestedVisits [id number] PCP Requested Referral /[id number] / ProceduresReferred By ContactReferred To ContactMR IMAGING Diagnoses Dilated cardiomyopathy (HCC) Procedures MRI CARDIAC VELOCITY FLOW MAP CARDIAC MRI FOR VELOCITY FLOW MAPPING Berta Francis MD [address] [place] [address] Mr Imaging Referral IDStatusReasonStart DateExpiration DateVisits RequestedVisits [id number] Review Auto-Generated Referral [id number] / ProceduresReferred By ContactReferred To ContactMR IMAGING Diagnoses Dilated cardiomyopathy (HCC) Procedures MRI CARDIAC MORPH FUNC WO/W IVCON CARDIAC MRI W/WO CONTRAST & FURTHER SEQ Berta Francis MD [address] [place] [address] Mr Imaging Referral IDStatusReasonStart DateExpiration DateVisits RequestedVisits [id number] Review Auto-Generated Referral [id number] / ProceduresReferred By ContactReferred To ContactNeurology Diagnoses Lightheadedness Change in blood pressure Procedures CONSULT TO NEUROLOGY OFFICE/OUTPATIENT [facility] 60-74 MINUTES Berta Francis MD [address] [facility] [address] Referral IDStatusReasonStart DateExpiration DateVisits RequestedVisits [id number] PCP Requested Referral [id number] / ProceduresReferred By ContactReferred To ContactRheumatology Diagnoses Ankylosing spondylitis of multiple sites in spine (HCC) Procedures CONSULT TO RHEUM/IMMUN DISEASE OFFICE/OUTPATIENT [facility] 60-74 MINUTES Berta Francis MD [address] [place] [address] Referral IDStatusReasonStart DateExpiration DateVisits RequestedVisits [id number] PCP Requested Referral [id number] / ProceduresReferred By ContactReferred To Contact Diagnoses Lightheadedness POTS (postural orthostatic tachycardia syndrome) Autonomic dysfunction Procedures CONSULT TO [facility] OFFICE/OUTPATIENT [facility] 60-74 MINUTES Berta Francis MD [address] [place] [address] Referral IDStatusReasonStart DateExpiration DateVisits RequestedVisits [id number] PCP Requested Referral /[id number] / ProceduresReferred By ContactReferred To ContactMOLECULAR & FUNCTIONAL IMAGING Diagnoses Exertional dyspnea Other secondary pulmonary hypertension (HCC) Procedures NM LUNG VENT / PERF VQ PULMONARY VENTILATION & PERFUSION IMAGING Berta Francis MD [address] [place] [address] Molecular & Functional Imaging [address] [place] [address] Referral IDStatus[facility] DateExpiration DateVisits RequestedVisits [id number] Review Auto-Generated Referral /[id number] / ProceduresReferred By ContactReferred To [facility] Diagnoses Exertional dyspnea Procedures ECHO ECHO TTHRC R-T 2D W/WOM-MODE COMPL SPEC&COLR D Berta Francis MD [address] [place] [address] [facility] [address] [address] Referral IDStatusMakiasonStart DateExpiration DateVisits RequestedVisits [id number] Review Auto-Generated Referral /[id number] / ProceduresReferred By ContactReferred To [facility] Diagnoses Lightheadedness Change in blood pressure Procedures ECG COMPLETE ECG ROUTINE ECG W/LEAST 12 LDS W/I&R Berta Francis MD [address] [place] [address] [facility] Vascular [address] [address] Referral IDStatusMakiasonStart DateExpiration DateVisits RequestedVisits [id number] Auto-Generated Referral 3/7/69862/[id number] / ProceduresReferred By ContactReferred To Contact Diagnoses Orthostatic hypotension POTS (postural orthostatic tachycardia syndrome) Procedures Tilt Table Test Carlos Krishna APRN - NP [address] [facility] [place] [address] Referral IDStatusReasonStart DateExpiration DateVisits RequestedVisits [id number]/3/20234/ Additional Source Comments (unrecognized sect ion and content) No Status Records FoundNo Status Records FoundNo Status Records FoundNo Status Records FoundNo Status Records FoundNo Status Records FoundNo Status Records FoundNo Status Records FoundNo Status Records FoundNo Status Records FoundNo Status Records Found INFORMATION SOURCE (unrecogn ized section and content) DATE CREATED AUTHOR 06/29/2021 [facility] DATE CREATED AUTHOR AUTHOR'S ORGANIZ ATION 08/01/2022 [facility] DATE CREATED AUTHOR AUTHOR'S ORGANIZ ATION 09/07/2022 [facility] DATE CREATED AUTHOR AUTHOR'S ORGANIZ ATION 08/01/2023 [facility] DATE CREATED AUTHOR AUTHOR'S ORGANIZ ATION 12/05/2023 [facility] DATE CREATED AUTHOR AUTHOR'S ORGANIZ ATION 12/29/2023 [facility] DATE CREATED AUTHOR AUTHOR'S ORGANIZ ATION 07/21/2024 [facility] DATE CREATED AUTHOR AUTHOR'S ORGANIZ ATION 07/23/2024 [facility] DATE CREATED AUTHOR AUTHOR'S ORGANIZ ATION 12/11/2024 [facility] DATE CREATED AUTHOR AUTHOR'S ORGANIZ ATION 12/12/2024 [facility] DATE CREATED AUTHOR AUTHOR'S ORGANIZ ATION 02/21/2025 [facility] Source Comments (unrecognize d section and content) In the event this informatio n is protected by the Federal Confidentiality of Alcohol and Drug Abuse Patient Records regulations: The Federal rules restrict any use of the information to criminally investigate or prosecute any alcohol or drug abuse patient.[facility] CenterIn the event this information is protected by the Federal Confidentiality of Alcohol and Drug Abuse Patient Records regulations: The Federal rules restrict any use of the information to criminally investigate or prosecute any alcohol or drug abuse patient.[facility] CenterIn the event this information is protected by the Federal Confidentiality of Alcohol and Drug Abuse Patient Records regulations: The Federal rules restrict any use of the information to criminally investigate or prosecute any alcohol or drug abuse patient.[facility] CenterIn the event this information is protected by the Federal Confidentiality of Alcohol and Drug Abuse Patient Records regulations: The Federal rules restrict any use of the information to criminally investigate or prosecute any alcohol or drug abuse patient.[facility] CenterIn the event this information is protected by the Federal Confidentiality of Alcohol and Drug Abuse Patient Records regulations: The Federal rules restrict any use of the information to criminally investigate or prosecute any alcohol or drug abuse patient.[facility] CenterIn the event this information is protected by the Federal Confidentiality of Alcohol and Drug Abuse Patient Records regulations: The Federal rules restrict any use of the information to criminally investigate or prosecute any alcohol or drug abuse patient.[facility] CenterIn the event this information is protected by the Federal Confidentiality of Alcohol and Drug Abuse Patient Records regulations: The Federal rules restrict any use of the information to criminally investigate or prosecute any alcohol or drug abuse patient.[facility] CenterIn the event this information is protected by the Federal Confidentiality of Alcohol and Drug Abuse Patient Records regulations: The Federal rules restrict any use of the information to criminally investigate or prosecute any alcohol or drug abuse patient.[facility] CenterIn the event this information is protected by the Federal Confidentiality of Alcohol and Drug Abuse Patient Records regulations: The Federal rules restrict any use of the information to criminally investigate or prosecute any alcohol or drug abuse patient.[facility] CenterIn the event this information is protected by the Federal Confidentiality of Alcohol and Drug Abuse Patient Records regulations: The Federal rules restrict any use of the information to criminally investigate or prosecute any alcohol or drug abuse patient.[facility] CenterIn the event this information is protected by the Federal Confidentiality of Alcohol and Drug Abuse Patient Records regulations: The Federal rules restrict any use of the information to criminally investigate or prosecute any alcohol or drug abuse patient.[facility] CenterIn the event this information is protected by the Federal Confidentiality of Alcohol and Drug Abuse Patient Records regulations: The Federal rules restrict any use of the information to criminally investigate or prosecute any alcohol or drug abuse patient.[facility] CenterIn the event this information is protected by the Federal Confidentiality of Alcohol and Drug Abuse Patient Records regulations: The Federal rules restrict any use of the information to criminally investigate or prosecute any alcohol or drug abuse patient.[facility] CenterIn the event this information is protected by the Federal Confidentiality of Alcohol and Drug Abuse Patient Records regulations: The Federal rules restrict any use of the information to criminally investigate or prosecute any alcohol or drug abuse patient.[facility] CenterIn the event this information is protected by the Federal Confidentiality of Alcohol and Drug Abuse Patient Records regulations: The Federal rules restrict any use of the information to criminally investigate or prosecute any alcohol or drug abuse patient.[facility] CenterIn the event this information is protected by the Federal Confidentiality of Alcohol and Drug Abuse Patient Records regulations: The Federal rules restrict any use of the information to criminally investigate or prosecute any alcohol or drug abuse patient.[facility] CenterIn the event this information is protected by the Federal Confidentiality of Alcohol and Drug Abuse Patient Records regulations: The Federal rules restrict any use of the information to criminally investigate or prosecute any alcohol or drug abuse patient.[facility] CenterIn the event this information is protected by the Federal Confidentiality of Alcohol and Drug Abuse Patient Records regulations: The Federal rules restrict any use of the information to criminally investigate or prosecute any alcohol or drug abuse patient.[facility] CenterIn the event this information is protected by the Federal Confidentiality of Alcohol and Drug Abuse Patient Records regulations: The Federal rules restrict any use of the information to criminally investigate or prosecute any alcohol or drug abuse patient.[facility] CenterIn the event this information is protected by the Federal Confidentiality of Alcohol and Drug Abuse Patient Records regulations: The Federal rules restrict any use of the information to criminally investigate or prosecute any alcohol or drug abuse patient.[facility] CenterIn the event this information is protected by the Federal Confidentiality of Alcohol and Drug Abuse Patient Records regulations: The Federal rules restrict any use of the information to criminally investigate or prosecute any alcohol or drug abuse patient.[facility] CenterIn the event this information is protected by the Federal Confidentiality of Alcohol and Drug Abuse Patient Records regulations: The Federal rules restrict any use of the information to criminally investigate or prosecute any alcohol or drug abuse patient.[facility] CenterIn the event this information is protected by the Federal Confidentiality of Alcohol and Drug Abuse Patient Records regulations: The Federal rules restrict any use of the information to criminally investigate or prosecute any alcohol or drug abuse patient.[facility] CenterIn the event this information is protected by the Federal Confidentiality of Alcohol and Drug Abuse Patient Records regulations: The Federal rules restrict any use of the information to criminally investigate or prosecute any alcohol or drug abuse patient.[facility] CenterIn the event this information is protected by the Federal Confidentiality of Alcohol and Drug Abuse Patient Records regulations: The Federal rules restrict any use of the information to criminally investigate or prosecute any alcohol or drug abuse patient.[facility] CenterIn the event this information is protected by the Federal Confidentiality of Alcohol and Drug Abuse Patient Records regulations: The Federal rules restrict any use of the information to criminally investigate or prosecute any alcohol or drug abuse patient.[facility] CenterIn the event this information is protected by the Federal Confidentiality of Alcohol and Drug Abuse Patient Records regulations: The Federal rules restrict any use of the information to criminally investigate or prosecute any alcohol or drug abuse patient.[facility] CenterIn the event this information is protected by the Federal Confidentiality of Alcohol and Drug Abuse Patient Records regulations: The Federal rules restrict any use of the information to criminally investigate or prosecute any alcohol or drug abuse patient.[facility] CenterIn the event this information is protected by the Federal Confidentiality of Alcohol and Drug Abuse Patient Records regulations: The Federal rules restrict any use of the information to criminally investigate or prosecute any alcohol or drug abuse patient.[facility] CenterIn the event this information is protected by the Federal Confidentiality of Alcohol and Drug Abuse Patient Records regulations: The Federal rules restrict any use of the information to criminally investigate or prosecute any alcohol or drug abuse patient.[facility] CenterIn the event this information is protected by the Federal Confidentiality of Alcohol and Drug Abuse Patient Records regulations: The Federal rules restrict any use of the information to criminally investigate or prosecute any alcohol or drug abuse patient.[facility] CenterIn the event this information is protected by the Federal Confidentiality of Alcohol and Drug Abuse Patient Records regulations: The Federal rules restrict any use of the information to criminally investigate or prosecute any alcohol or drug abuse patient.[facility] CenterIn the event this information is protected by the Federal Confidentiality of Alcohol and Drug Abuse Patient Records regulations: The Federal rules restrict any use of the information to criminally investigate or prosecute any alcohol or drug abuse patient.[facility] CenterIn the event this information is protected by the Federal Confidentiality of Alcohol and Drug Abuse Patient Records regulations: The Federal rules restrict any use of the information to criminally investigate or prosecute any alcohol or drug abuse patient.[facility] CenterIn the event this information is protected by the Federal Confidentiality of Alcohol and Drug Abuse Patient Records regulations: The Federal rules restrict any use of the information to criminally investigate or prosecute any alcohol or drug abuse patient.[facility] Care Teams (unrecognized sec tion and content) Team Status: Active Member Role Status Dates Silvana Lundberg MD Primary Care Provider Active Team Status: Active Member Role Status Dates Silvana Lundberg MD Primary Care Provider Active Start: September 25, 2024 Fredericleonie Zamarripa , MDAttending ProviderActiveStart: September 25, 2024 Team Status: Inactive Member Role Status Dates Silvana Lundberg MD Primary Care Provider Active Start: September 25, 2024 End: September 25, 2024Sherif S Dallin , MDAttending ProviderActiveStart: September 25, 2024 End: September 25, 2024 Team Status: Inactive Member Role Status Dates Silvana Lundberg MD Primary Care Provider Active Start: October 06, 2024 End: October 06, 2024Shebenf S Dallin , MDAttending ProviderActiveStart: October 06, 2024 End: October 06, 2024 Team Status: Active Member Role Status Dates Silvana Lundberg MD Primary Care Provider Active Start: October 14, 2024 Frederic S Dallin , MDAttending ProviderActiveStart: October 14, 2024 Team Status: Inactive Member Role Status Dates Silvana Lundberg MD Primary Care Provider Active Start: October 14, 2024 End: October 14, 2024Shebenf S Dallin , MDAttending ProviderActiveStart: October 14, 2024 End: October 14, 2024 Team Status: Inactive Member Role Status Dates Silvana Lundberg MD Primary Care Provider Active Start: October 28, 2024 End: October 28, 2024Niki Murrieta ProviderActiveStart: October 28, 2024 End: October 28, 2024 Team Status: Active Member Role Status Dates Silvana Lundberg MD Primary Care Provider Active Start: October 31, 2024 Hilario Munson ProviderActiveStart: October 31, 2024 Team Status: Inactive Member Role Status Dates Silvana Lundberg MD Primary Care Provider Active Start: November 25, 2024 End: November 25, 2024Frederic Zamarripa , MDAttending ProviderActiveStart: November 25, 2024 End: November 25, 2024 Team Status: Inactive Member Role Status Dates Silvana Lundberg MD Primary Care Provider Active Start: December 10, 2024 End: December 10, 2024Sherif S Dallin , MDAttending ProviderActiveStart: December 10, 2024 End: December 10, 2024 Team Status: Inactive Member Role Status Dates Silvana Lundberg MD Primary Care Provider Active Start: August 06, 2024 End: August 06, 2024Estella Tadeo NPAttending ProviderActiveStart: August 06, 2024 End: August 06, 2024 Team Status: Inactive Member Role Status Dates Silvana Lundberg MD Primary Care Provider Active Start: August 19, 2024 End: August 19, 2024Sherif S Dallin , MDAttending ProviderActiveStart: August 19, 2024 End: August 19, 2024 Team Status: Inactive Member Role Status Dates Silvana Lundberg MD Primary Care Provider Active Start: August 28, 2024 End: August 28, 2024Shebenf S Dallin , MDAttending ProviderActiveStart: August 28, 2024 End: August 28, 2024 Team Status: Active Member Role Status Dates Silvana Lundberg MD Primary Care Provider Active Start: August 28, 2024 Frederic Zamarripa , MDAttending ProviderActiveStart: August 28, 2024 Team Status: Inactive Member Role Status Dates Silvana Lundberg MD Primary Care Provider Active Start: September 08, 2024 End: September 08, 2024Ryannef S Dallin , MDAttending ProviderActiveStart: September 08, 2024 End: September 08, 2024 Team Status: Inactive Member Role Status Dates Silvana Lundberg MD Primary Care Provider Active Start: September 08, 2024 End: September 08, 2024Silvana Lundberg MDAttending ProviderActiveStart: September 08, 2024 End: September 08, 2024 Team Status: Active Member Role Status Dates Silvana Lundberg MD Primary Care Provider Active Start: May 28, 2024 Mary Diaz DOAttending ProviderActiveStart: May 28, 2024 Team Status: Active Member Role Status Ezequiel Lundberg MD Primary Care Provider Active Start: May 28, 2024 Tony Lopes DOAttending ProviderActiveStart: May 28, 2024 Team Status: Active Member Role Status Dates Silvana Lundberg MD Primary Care Provider Active Start: May 30, 2024 Pippa Channing , CMAAttending ProviderActiveStart: May 30, 2024 Team Status: Inactive Member Role Status Dates Silvana Lundberg MD Primary Care Provide r, Referring Provider Active Start: June 10, 2024 End: June 10, 2024Frederic Zamarripa MDAttending ProviderActiveStart: June 10, 2024 End: June 10, 2024 Team Status: Inactive Member Role Status Dates Silvana Lundberg MD Primary Care Provider Active Start: June 10, 2024 End: June 10, 2024Frederic Zamarripa MDAttending ProviderActiveStart: June 10, 2024 End: June 10, 2024 Team Status: Active Member Role Status Dates Silvana Lundberg MD Primary Care Provider Active Start: July 14, 2024 Nikkie Trejo MDAttending ProviderActiveStart: July 14, 2024 Team Status: Active Member Role Status Dates Silvana Lundberg MD Primary Care Provider Active Start: July 19, 2024 Jerrod Bell MDAttending ProviderActiveStart: July 19, 2024 Team Status: Inactive Member Role Status Dates Silvana Lundberg MD Primary Care Provider Active Start: July 23, 2024 End: July 23, 2024Estella Tadeo NPAttending ProviderActiveStart: July 23, 2024 End: July 23, 2024 Team Status: Inactive Member Role Status Dates Silvana Lundberg MD Primary Care Provide r, Attending Provider Active Start: May 13, 2024 End: May 13, 2024 Team Status: Active Member Role Status Dates Silvana Lundberg MD Primary Care Provider Active Start: March 17, 2024 Alysha Emanuel MDAttending ProviderActiveStart: March 17, 2024 Team Status: Active Member Role Status Dates Silvana Lundberg MD Primary Care Provider Active Start: April 07, 2024 Brad Hodges MDAttending ProviderActiveStart: April 07, 2024 Team Status: Inactive Member Role Status Dates Eugenia Landon APRN [employer] OPERATOR-C Attending Provider Act audelia Start: July 06, 2023 End: July 06, 2023Becky Albrecht Care ProviderActiveStart: July 06, 2023 End: July 06, 2023 [...] Primary Care Provider Active Start: 2023 End: September 04, 2023Safia Enrique [employer] OPERATOR-CAttending ProviderActiveStart: 2023 End: 2023 Team Status: Active Member Role Status Dates Silvana Lundberg MD Primary Care Provider Active Start: September 27, 2023 Сергей Becerra ProviderActiveStart: September 27, 2023 Team Status: Inactive Member Role Status Dates Silvana Lundberg MD Primary Care Provide r, Attending Provider Active Start: October 01, 2023 End: October 01, 2023 Team Status: Active Member Role Status Dates PHYSICIAN NO FAMILY Primary Care Provider Active Start: June 20, 2023 Keeley Echevarria ProviderActiveStart: June 20, 2023 Team MemberRelationshipSpecialtyStart DateEnd Date Silvana Lundberg MD [address] [place] [address] PCP - GeneralFamily Practice07/15/15 Samuel Burnette ReferringPain Management07/15/15Team MemberRelationshipSpecialtyStart DateEnd Date Silvana Lundberg MD [address] [place] [address] PCP - GeneralFamily Practice07/15/15 Samuel Burnette ReferringPain Management07/15/15Team MemberRelationshipSpecialtyStart DateEnd Date Silvana Lundberg MD [address] [place] [address] PCP - GeneralFamily Practice07/15/15 Samuel Burnette ReferringPain Management07/15/15Team MemberRelationshipSpecialtyStart DateEnd Date Silvana Lundberg MD [address] [place] [address] PCP - GeneralFamily Practice07/15/15 Samuel Burnette ReferringPain Management07/15/15Team MemberRelationshipSpecialtyStart DateEnd Date Silvana Lundberg MD [address] [place] [address] PCP - GeneralFamily Medicine07/15/15 Samuel Burnette ReferringPain Management07/15/15Team MemberRelationshipSpecialtyStart DateEnd Date Silvana Lundberg MD [address] [place] [address] PCP - GeneralFamily Medicine07/15/15 Samuel Burnette [address] [place] [address] ReferringPain Management07/15/15Team MemberRelationshipSpecialtyStart DateEnd Date Silvana Lundberg MD [address] [facility] [place] [address] PCP - GeneralFamily Medicine07/25/22Team MemberRelationshipSpecialtyStart DateEnd Date Silvana Lundberg MD [address] [place] [address] PCP - GeneralFamily Medicine07/15/15 Samuel Burnette [address] [place] [address] ReferringPain Management07/15/15 Maria Teresa Storey, SLITTER OPERATOR [address] [place] [address] Family [facility]08/16/22Team MemberRelationshipSpecialtyStart DateEnd Date Silvana Lundberg MD [address] [place] [address] PCP - GeneralFamily Medicine07/15/15 Samuel Burnette [address] [place] [address] ReferringPain Management07/15/15 Maria Teresa Storey, SLITTER OPERATOR [address] [place] [address] Family [facility]08/16/22Team MemberRelationshipSpecialtyStart DateEnd Date Silvana Lundberg MD [address] [place] [address] PCP - GeneralFamily Medicine07/15/15 Samuel Burnette [address] [place] [address] ReferringPain Management07/15/15 Maria Teresa Storey, SLITTER OPERATOR [address] [place] [address] [facility]08/16/22Team MemberRelationshipSpecialtyStart DateEnd Date Silvana Lundberg MD [address] [place] [address] PCP - GeneralFamily Medicine07/15/15 Samuel Burnette [address] [place] [address] ReferringPain Management07/15/15 Maria Teresa Storey, SLITTER OPERATOR [address] [place] [address] Family Medicine08/16/22Team MemberRelationshipSpecialtyStart DateEnd Date Silvana Lundberg MD [address] [place] [address] PCP - GeneralFamily Medicine07/15/15 Samuel Burnette [address] [place] [address] [phone] ReferringPain Management07/15/15 Maria Teresa Storey, SLITTER OPERATOR [address] [place] [address] Family Medicine08/16/22Team MemberRelationshipSpecialtyStart DateEnd Date Silvana Lundberg MD [address] [place] [address] PCP - GeneralFamily Medicine07/15/15 Samuel Burnette [address] [place] [address] ReferringPain Management07/15/15 Maria Teresa Storey, SLITTER OPERATOR [address] [facility] [place] [address] Family Medicine08/16/22Team MemberRelationshipSpecialtyStart DateEnd Date Silvana Lundberg MD [address] [place] [address] PCP - GeneralFamily Medicine07/15/15 Samuel Burnette [address] [place] [address] ReferringPain Management07/15/15 Maria Teresa Storey, SLITTER OPERATOR [address] [place] [address] Family Medicine08/16/22Team MemberRelationshipSpecialtyStart DateEnd Date Silvana Lundberg MD [address] [place] [address] PCP - GeneralFamily Medicine07/15/15 Samuel Burnette [address] [place] [address] ReferringPain Management07/15/15 Maria Teresa Storey, SLITTER OPERATOR [address] [place] [address] Family Medicine08/16/22Team MemberRelationshipSpecialtyStart DateEnd Date Silvana Lundberg MD [address] [place] [address] PCP - GeneralFamily Medicine07/15/15 Samuel Burnette [address] [place] [address] ReferringPain Management07/15/15 Maria Teresa Storey, SLITTER OPERATOR [address] [place] [address] Family [facility]08/16/22Team MemberRelationshipSpecialtyStart DateEnd Date Silvana Lundberg MD [address] [place] [address] PCP - GeneralFamily Medicine07/15/15 Samuel Burnette [address] [place] [address] ReferringPain Management07/15/15 Maria Teresa Storey, SLITTER OPERATOR [address] [facility] [address] [place] [address] [facility]08/16/22 Team Status: Inactive Member Role Status Dates Silvana Lundberg MD Attending Provider Active Team MemberRelationshipSpecialtyStart DateEnd Date Silvana Lundberg MD [address] [place] [address] [facility]15 Samuel Burnette [address] [place] [address] ReferringPain Management07/15/15 Maria Teresa Storey, SLITTER OPERATOR [address] [facility] [address] [place] [address] [facility]08/16/22 Team Status: Active Member Role Status Dates PHYSICIAN NO FAMILY Primary Care Provider Active Team Status: Inactive Member Role Status Dates Silvana Lundberg MD Attending Provider Active PHYSICIAN NO FAMILYPrimary Care ProviderActive Team Status: Inactive Member Role Status Dates PHYSICIAN NO FAMILY Primary Care Provider Active Сергей Charles ProviderActiveTeam MemberRelationshipSpecialtyStart DateEnd Date Silvana Lundberg MD [address] [place] [address] PCP - Generalmily Medicine07/15/15 Samuel Burnette [address] [place] [address] ReferringPain Management07/15/15 Maria Teresa Storey, SAHIL [address] [facility] [address] [facility] [address] [facility]08/16/22Team MemberRelationshipSpecialtyStart DateEnd Date Silvana Lundberg MD [address] [place] [address] PCP - [facility] Medicine07/15/15 Samuel Burnette [address] [place] [address] ReferringPain Management07/15/15 Maria Teresa Storey, SAHIL [address] [facility] [address] [place] [address] [facility]08/16/22 Team Status: Inactive Member Role Status Dates PHYSICIAN NO FAMILY Primary Care Provider Active Start: May 03, 2023 End: May 03, 2023MattJose Fitzpatrickending ProviderActiveStart: May 03, 2023 End: May 03, 2023Team MemberRelationshipSpecialtyStart DateEnd Date Silvana Lundberg MD [address] [place] [address] PCP - GeneralFamily Medicine07/15/15 Samuel Burnette [address] [place] [address] ReferringPain Management07/15/15 Maria Teresa Storey, SLITTER OPERATOR [address] [place] [address] [facility]08/16/22 [address] [place] [address] ReferringOrthopedi09/12/23Team MemberRelationshipSpecialtyStart DateEnd Date Silvana Lundberg MD [address] [place] [address] PCP - GeneralFamily Medicine07/15/15 Samuel Burnette [address] [place] [address] ReferringPain Management07/15/15 CordeliaMaria Teresa lui, SLITTER OPERATOR [address] [place] [address] [facility]08/16/22 Asher Skaggs [address] [place] [address] ReferringOrthopedi09/12/23Team MemberRelationshipSpecialtyStart DateEnd Date Silvana Lundberg MD [address] [place] [address] PCP - GeneralFamily Medicine07/15/15 Samuel Burnette [address] [place] [address] ReferringPain Management07/15/15 Maria Teresa Storey, SLITTER OPERATOR [address] [place] [address] Family [facility]08/16/22 [address] [place], [place] [address] ReferringOrthopedi09/12/23Team MemberRelationshipSpecialtyStart DateEnd Date Silvana Lundberg MD [address] [place] [address] PCP - GeneralFamily Medicine07/15/15 Samuel Burnette [address] [place] [address] ReferringPain Management07/15/15 Maria Teresa Storey, SLITTER OPERATOR [address] [place] [address] [facility]08/16/22 Asher Skaggs [address] [facility] [place] [address] ReferringOrthopedics09/12/23Team MemberRelationshipSpecialtyStart DateEnd Date Silvana Lundberg MD [address] [place] [address] PCP - GeneralFamily Medicine07/15/15 Samuel Burnette [address] [place] [address] ReferringPain Management07/15/15 Maria Teresa Storey, SLITTER OPERATOR [address] [place] [address] Family [facility]08/16/22 Asher Skaggs [address] [place] [address] ReferringOrthopedi09/12/23Team MemberRelationshipSpecialtyStart DateEnd Date Silvana Lundberg MD [address] [place] [address] PCP - Generalmily Medicine07/15/15 Samuel Burnette [address] [place] [address] ReferringPain Management07/15/15 Maria Teresa Storey, SLITTER OPERATOR [address] [facility] [address] [place] [address] [facility]08/16/22 Asher Skaggs [address] [place] [address] ReferringOrthopedics09/12/23Team MemberRelationshipSpecialtyStart DateEnd Date Silvana Lundberg MD [address] [place] [address] PCP - GeneralFamily Medicine07/15/15 Samuel Burnette [address] [place] [address] ReferringPain Management07/15/15 Maria Teresa Storey, SLITTER OPERATOR [address] [place] [address] Family [facility]08/16/22 [address] [place] [address] ReferringOrthopedi09/12/23Team MemberRelationshipSpecialtyStart DateEnd Date Silvana Lundberg MD [address] [place] [address] PCP - GeneralFamily Medicine07/15/15 Samuel Burnette [address] [place] [address] ReferringPain Management07/15/15 Maria Teresa Storey, SLITTER OPERATOR [address] [facility] [address] [place] [address] Family [facility]08/16/22 Asher Skaggs [address] [place] [address] ReferringOrthopedics09/12/23Team MemberRelationshipSpecialtyStart DateEnd Date Silvana Lundberg MD [address] [place] [address] PCP - GeneralFamily Medicine07/15/15 Samuel Burnette [address] [place] [address] ReferringPain Management07/15/15 Maria Teresa Storey, SAHIL [address] [facility] [address] [place] [address] Family Medicine08/16/22 [address] [place] [address] ReferringOrthopedics09/12/23Team MemberRelationshipSpecialtyStart DateEnd Date Silvana Lundberg MD [address] [place] [address] PCP - GeneralFamily Medicine07/15/15 Samuel Burnette [address] [place] [address] ReferringPain Management07/15/15 Maria Teresa Storey, SAHIL [address] [facility] [address] [place] [address] Family [facility]08/16/22 Asher Skaggs [address] [place] [address] ReferringOrthopedi09/12/23 Team Status: Inactive Member Role Status Dates Silvana Lundberg MD Primary Care Provide r, Attending Provider Active Start: September 08, 2024 End: September 08, 2024Team MemberRelationshipSpecialtyStart DateEnd Date Silvana Lundberg MD [address] [place] [address] PCP - GeneralFamily Medicine07/15/15 Samuel Burnette [address] [facility] [place] [address] ReferringPain Management07/15/15 Maria Teresa Storey CNP [address] [facility] [address] [place] [address] Family Medicine08/16/22 Asher Skaggs [address] [place] [address] ReferringOrthopedics09/12/23 Reason for Visit (unrecogniz ed section and content) ReasonCommentsDVT. new patient consultReasonCommentsRecheckFollow up DVTReason CommentsResultsLab resultsReasonCommentsResultsReasonCommentsacute deep vein thrombosisFollow upReasonCommentsAppointmentSpecialtyDiagnoses / Procedures Referred By ContactReferred To Contact Diagnoses Orthostatic hypotension POTS (postural orthostatic tachycardia syndrome) Procedures Tilt Table Test Carlos Krishna APRN - [employer] PLANT OPERATOR [address] [facility] [address] [place] [address] Referral IDStatusReasonStart DateExpiration DateVisits RequestedVisits [id number] Required - RTA/[id number] Outside Medical RecordsReasonCommentsConsultRapid heart rateDeveloped heart conditions over the last yr and a halfOrtho static tentionReasonCommentsPatient EducationReasonCommentsShortness of BreathSpecialtyDiagnoses / Procedures Referred By ContactReferred To Contact Diagnoses Lightheadedness POTS (postural orthostatic tachycardia syndrome) Procedures RIGHT HEART CATH O2 SATURATION & CARDIAC OUTPUT RIGHT HEART CATHETERIZATION INCLUDING MEASUREMENT OF OXYGEN SATURATION AND CARDIAC OUTPUT [facility] Valet Service Attendant [address] [place] [address] Referral IDStatusReasonStart DateExpiration DateVisits RequestedVisits [id number] SpondylitisSpecialtyDiagnoses / ProceduresReferred By ContactReferred To ContactRheumatology Diagnoses Ankylosing spondylitis of multiple sites in spine (HCC) Procedures CONSULT TO RHEUM/IMMUN DISEASE OFFICE/OUTPATIENT [facility] 60-74 MINUTES Berta Francis MD [address] [place] [address] Referral IDStatusReasonStart DateExpiration DateVisits RequestedVisits [id number] PCP Requested Referral [id number] NMSpecialtyDiagnoses / Procedures Referred By ContactReferred To ContactMOLECULAR & FUNCTIONAL IMAGING Diagnoses Exertional dyspnea Other secondary pulmonary hypertension (HCC) Procedures NM LUNG VENT / PERF VQ PULMONARY VENTILATION & PERFUSION IMAGING Berta Francis MD [address] [place] [address] Molecular & Functional Imaging [address] [place] [address] Referral IDStatusReasonStart DateExpiration DateVisits RequestedVisits [id number] Auto-Generated Referral [id number] PatientSpecialtyDiagnoses / Procedures Referred By ContactReferred To ContactNeurology Diagnoses Lightheadedness Change in blood pressure Procedures CONSULT TO NEUROLOGY OFFICE/OUTPATIENT [facility] 60-74 MINUTES Berta Francis MD [address] [place] [address] Referral IDStatusReasonStart DateExpiration DateVisits RequestedVisits [id number] PCP Requested Referral 1ReasonOnset WcbgHalwpvibSKI71/26/2023SpecialtyDiagnoses / ProceduresReferred By ContactReferred To ContactNEUROLOGICAL INSTITUTE Diagnoses Disturbance of skin sensation Procedures EMG(NEURO/NI) NERVE CONDUCTION STUDIES 9-10 STUDIES Anna Palacios APRN.[facility] [address] [id number] [facility] [place] [address] [place] [address] Referral IDStatusReasonStart DateExpiration DateVisits RequestedVisits [id number] Auto-Generated Referral /[id number]zouxy LabsReasonCommentsResults Abnormal labsReasonCommentsEstablished PatientlightheadnessReasonCommentsNew FractureReasonCommentsResultsSpoke with patient regarding his PTH results.Reason CommentsEstablished PatientFollow UpReasonCommentsHistory of DVTReasonComments ConsultSpecialtyDiagnoses / ProceduresReferred By ContactReferred To Contact Diagnoses Closed fracture of hip, left, with delayed healing, subsequent encounter High serum parathyroid hormone (PTH) Procedures CONSULT TO HIP FRACTURE LIAISON SERVICE (FRAGILITY) OFFICE/OUTPATIENT NEW HIGH MDM [address] [place] [address] [place] [address] Referral IDStatusReasonStart DateExpiration DateVisits RequestedVisits [id number] PCP Requested Referral /[id number] ProblemTeriparatide 20 mcg/dose (600mcg/2.4mLReasonCommentsRefill Request Goals (unrecognized section and content) Goals [...] BE BASED ON THE PRIMARY CLINICAL RECORDS. [employer] provides no warranty or guarantee of the accuracy or completeness of information in this document.
[2025-03-10 14:15] LABS: Hematocrit 43.2 % (42.0-54.0); Hemoglobin 13.7 g/dL (14.0-18.0); Immature Granulocytes Abs Auto 0.05 10^3/uL (0.00-0.03); Immature Granulocytes Pct Auto 0.7 % (0.0-0.5); Lymphocytes Absolute Auto 1.3 10^3/uL (1.2-3.8); Mean Corpuscular HGB Conc 31.7 g/dL (29.9-35.2); Mean Corpuscular Hemoglobin 31.1 pg (25.9-34.0); Mean Corpuscular Volume 98.2 fL (80.0-94.0); Platelet Count 272 10^3/uL (150-450); Red Blood Count 4.40 10^6/uL (4.70-6.10); White Blood Count 6.8 10^3/uL (4.0-11.0)
[2025-03-10 14:33] LABS: Alanine Aminotransferase 22 U/L (16-63); Albumin Globulin Ratio 0.8; Albumin Level 3.1 g/dL (3.4-5.0); Alkaline Phosphatase 98 U/L (46-116); Anion Gap 7.4; Aspartate Amino Transferase 19 U/L (15-37); Blood Urea Nitrogen 19.0 mg/dL (7.0-18.0); Calcium 8.8 mg/dL (8.5-10.1); Carbon Dioxide 30.0 mmol/L (21.0-32.0); Chloride 104 mmol/L (98-107); Estimated GFR (African America >60 (>=60 mL/min/1.73m^2); Estimated GFR (Non-African Ame 54 (>=60 mL/min/1.73m^2); Globulin 4.1 g/dL; Glucose 121 mg/dL (74-106); Potassium 4.4 mmol/L (3.5-5.1); Sodium 137 mmol/L (136-145); Total Protein 7.2 g/dL (6.4-8.2)
== END 2025-03-10 13:43 | disposition home or self-care (01) ==
LOC: LAB 13:44
PROVIDERS: PCP Family Medicine; Visit Provider Registered Nurse
DX: M45.0 Ankylosing spondylitis of multiple sites in spine (principal); M15.0 Primary generalized (osteo)arthritis; Z79.899 Other long term (current) drug therapy
CPT/HCPCS: 36415; 80053; 85025; 85652